=== PATIENT | male | born 1960 | race Caucasian/White ===

== ENCOUNTER → 2017-02-16 | Outpatient (CLI) | payer BC, OTHER ==
[~2017-02-16] MED LIST: /ARTH50TA PO; ACET125T2 PO; AMOX875T2 PO; ANTI25TA PO; ARTHTAB4 PO; ASPI325T PO; ASPI81CH PO; ATEN25TA PO; AVEL1TAB PO; BACITAB3 PO; BYDU1INJ SC; CARV3.12 PO; D 1010004 PO; DICL-235 PO; FLON0.05; GLYB5TAB5 PO; INSULANT SC; INSUR SC; INVO300T PO; JARD1TAB3 PO; LANTINJ4 SC; LIPI1TAB2 PO; LISI30TA4 PO; MAGN64TASA PO; MAGN70CA PO; META800T82 PO; METF1000 PO; METF500T PO; METO5TAB2 PO; NORT50CA PO; ONDA8TAB8 PO; PRED10TA PO; PRIN10TA PO; REGL5TAB2 PO; TESS100C PO; TOPA25TA10 PO; TYLE325T5 PO; VALI2TAB PO; VITA1CAP7 PO; ZEST1TAB4 PO; ZOCO20TA PO; [UNRECOGNIZED DRUG - CODE] PO
--- NOTE | 2017-02-16 12:32 | REP ---
RIGHT FOOT, FOUR VIEWS: HISTORY: Heel pain. There is no acute fracture or dislocation. The joint spaces are normal in appearance. Osteophytes are present on the inferior and posterior calcaneus. IMPRESSION: There is no acute fracture or dislocation. Signed by Darek Fagan MD 02/16/2017 12:33 P
== END ==
LOC: M WUC 10:55
PROVIDERS: ATTEND Physician Assistant
DX: M25.579 Pain in unspecified ankle and joints of unspecified foot (principal)

== ENCOUNTER → 2017-05-16 | Outpatient (CLI) | payer BC, OTHER ==
[~2017-05-16] MED LIST changes: -AVEL1TAB PO; +AVEL1TAB3 PO; +BACITAB PO; -BACITAB3 PO; +METF10004 PO; -METF500T PO; +METF500T13 PO; +TOPA1TAB PO; -TOPA25TA10 PO
--- NOTE | 2017-05-16 09:45 | REP ---
CHEST X-RAY: Two views. HISTORY: Cough. COMPARISON STUDY: August 21, 2015. FINDINGS: The lungs are well inflated and clear. Pleural angles are sharp. Cardiomediastinal silhouette and bony thorax are unremarkable. IMPRESSION: No active disease. Signed by Dante Yepez MD 05/16/2017 03:50 P
[2017-05-16 13:48] LABS: BASO # 0.1 K/mm3 (0.0-0.2); BASO % 0.8 % (0.0-1.0); EOS # 0.3 K/mm3 (0.0-0.50); EOS % 2.6 % (0.0-3.0); LARGE UNSTAINED CELL # 0.2 K/mm3 (0.0-0.4); LARGE UNSTAINED CELL % 1.4 % (0.0-4.0); LYMPH # 1.8 K/mm3 (1.5-4.5); MEAN CORPUSCULAR HEMOGLOBIN 32.6 pg (27.0-33.0); MEAN CORPUSCULAR HGB CONC 33.8 g/dl (32.0-36.5); MEAN CORPUSCULAR VOLUME 96.6 fl (80.0-96.0); MONO # 0.6 K/mm3 (0.0-0.8); MONO % 4.7 % (0.0-5.0); NEUTROPHILS # 9.2 K/mm3 (1.8-7.7); NEUTROPHILS % 75.6 % (36.0-66.0); PLATELET COUNT, AUTOMATED 235 k/mm3 (150-450); RED CELL DISTRIBUTION WIDTH 13.2 % (11.5-14.5); WHITE BLOOD COUNT 12.3 K/mm3 (4.0-10.0)
[2017-05-16 14:02] LABS: ANION GAP 11 MEQ/L (8-16); BLOOD UREA NITROGEN 26 MG/DL (7-18); CALCIUM LEVEL 9.7 MG/DL (8.5-10.1); CARBON DIOXIDE LEVEL 25 MEQ/L (21-32); CHLORIDE LEVEL 101 MEQ/L (98-107); CREATININE FOR GFR 0.95 MG/DL (0.70-1.30); GLOMERULAR FILTRATION RATE > 60.0 (>56); GLUCOSE, FASTING 228 MG/DL (70-105); POTASSIUM SERUM 4.6 MEQ/L (3.5-5.1); SODIUM LEVEL 137 MEQ/L (136-145)
== END ==
LOC: M WUC 09:08
PROVIDERS: ATTEND Physician Assistant
DX: R05 Cough (principal)

== ENCOUNTER → 2017-06-09 | Outpatient (CLI) | payer OTHER, BC ==
[2017-06-09 17:22] LABS: BASO # 0.1 10^3/uL (0.0-0.2); BASO % 0.6 % (0.0-1.0); EOS # 0.2 10^3/uL (0.0-0.50); EOS % 1.5 % (0.0-3.0); IMMATURE GRANULOCYTE % 0.6 % (0-0); LYMPH # 2.4 10^3/uL (1.5-4.5); LYMPH % 22.6 % (24.0-44.0); MEAN CORPUSCULAR HEMOGLOBIN 31.6 pg (27.0-33.0); MEAN CORPUSCULAR HGB CONC 32.9 g/dl (32.0-36.5); MEAN CORPUSCULAR VOLUME 96.1 fl (80.0-96.0); MONO # 0.6 10^3/uL (0.0-0.8); NEUTROPHILS # 7.3 10^3/uL (1.8-7.7); NEUTROPHILS % 68.7 % (36.0-66.0); PLATELET COUNT, AUTOMATED 224 10^3/uL (150-450); RED CELL DISTRIBUTION WIDTH 13.2 % (11.5-14.5); WHITE BLOOD COUNT 10.5 10^3/uL (4.0-10.0)
[2017-06-09 17:30] LABS: ADD MORPHOLOGY? NO
[2017-06-09 17:36] LABS: ALBUMIN 4.1 GM/DL (3.2-5.2); ALBUMIN/GLOBULIN RATIO 1.28 (1.00-1.93); ALKALINE PHOSPHATASE 59 U/L (45-117); ALT/SGPT 25 U/L (12-78); ANION GAP 9 MEQ/L (8-16); AST/SGOT 19 U/L (15-37); BILIRUBIN,TOTAL 0.4 MG/DL (0.2-1.0); BLOOD UREA NITROGEN 22 MG/DL (7-18); CALCIUM LEVEL 9.5 MG/DL (8.5-10.1); CARBON DIOXIDE LEVEL 27 MEQ/L (21-32); CHLORIDE LEVEL 101 MEQ/L (98-107); CREATININE FOR GFR 0.85 MG/DL (0.70-1.30); GLOMERULAR FILTRATION RATE > 60.0 (>56); GLUCOSE, FASTING 102 MG/DL (70-105); POTASSIUM SERUM 4.8 MEQ/L (3.5-5.1); SODIUM LEVEL 137 MEQ/L (136-145); TOTAL PROTEIN 7.3 GM/DL (6.4-8.2)
== END ==
LOC: M WUC 12:19
PROVIDERS: ATTEND Physician Assistant
DX: R25.2 Cramp and spasm (principal)

== ENCOUNTER 2017-08-17 16:51 | Emergency (ER) | payer BC, OTHER ==
[~2017-08-17] VITALS: Ht 180.3 cm; Wt 100.0 kg
[2017-08-17 16:59] VITALS: BP 149/79
[2017-08-17] MEDS ORDERED: GLYB25TA PO (17:05)
== END 2017-08-17 18:02 | disposition home or self-care (01) ==
LOC: M ED 16:51
DX: S01.01XA Laceration without foreign body of scalp, initial encounter (principal); W25.XXXA Contact with sharp glass, initial encounter; Y92.89 Other specified places as the place of occurrence of the external cause; Y93.89 Activity, other specified; Y99.0 Civilian activity done for income or pay; E11.9 Type 2 diabetes mellitus without complications; I10 Essential (primary) hypertension; R51 Headache; M54.9 Dorsalgia, unspecified; Z79.899 Other long term (current) drug therapy; Z79.82 Long term (current) use of aspirin; Z79.4 Long term (current) use of insulin; Z88.8 Allergy status to other drugs, medicaments and biological substances

== ENCOUNTER → 2017-09-09 | Outpatient (CLI) | payer OTHER | LOC: M WUC 14:51 | DX: E11.21 Type 2 diabetes mellitus with diabetic nephropathy (principal); N18.3 Chronic kidney disease, stage 3 (moderate) ==

== ENCOUNTER 2017-12-16 20:25 | Emergency (ER) | payer BC, OTHER ==
[2017-12-16 21:17] LABS: BEDSIDE GLUCOSE 190 MG/DL (70-105)
[2017-12-16 21:22] LABS: BASO # 0.1 10^3/uL (0.0-0.2); BASO % 0.3 % (0.0-1.0); EOS % 0.2 % (0.0-3.0); HEMATOCRIT 45.7 % (42.0-52.0); HEMOGLOBIN 15.5 g/dl (13.5-17.5); LYMPH # 4.5 10^3/uL (1.5-4.5); LYMPH % 27.3 % (24.0-44.0); MEAN CORPUSCULAR HEMOGLOBIN 31.3 pg (27.0-33.0); MEAN CORPUSCULAR HGB CONC 33.9 g/dl (32.0-36.5); MEAN CORPUSCULAR VOLUME 92.3 fl (80.0-96.0); MONO # 0.8 10^3/uL (0.0-0.8); MONO % 4.9 % (0.0-5.0); NEUTROPHILS # 10.9 10^3/uL (1.8-7.7); NEUTROPHILS % 66.3 % (36.0-66.0); PLATELET COUNT, AUTOMATED 267 10^3/uL (150-450); RED BLOOD COUNT 4.95 10^6/uL (4.30-6.10); RED CELL DISTRIBUTION WIDTH 13.1 % (11.5-14.5); WHITE BLOOD COUNT 16.4 10^3/uL (4.0-10.0)
[2017-12-16] MEDS: NS 1,000 ML IV (21:30)
[2017-12-16 21:32] LABS: OSMOLALITY SERUM 308 MOSM/KG (275-295); VENOUS BASE EXCESS 0.9 (-2.0-2.0); VENOUS HCO3 25.1 MEQ/L (23.0-27.0); VENOUS O2 SATURATION 96.9 % (60.0-80.0); VENOUS PARTIAL PRESSURE CO2 38.8 mmHg (38.0-50.0); VENOUS PARTIAL PRESSURE O2 103.7 mmHg (30.0-50.0); VENOUS PH 7.429 UNITS (7.330-7.430); VENOUS STANDARD HCO3 25.3 MEQ/L; VENOUS TOTAL CO2 26.3 MEQ/L (24.0-28.0)
[2017-12-16 21:41] LABS: ANION GAP 12 MEQ/L (8-16); BLOOD UREA NITROGEN 35 MG/DL (7-18); CALCIUM LEVEL 9.4 MG/DL (8.5-10.1); CARBON DIOXIDE LEVEL 26 MEQ/L (21-32); CHLORIDE LEVEL 102 MEQ/L (98-107); CREATININE FOR GFR 1.15 MG/DL (0.70-1.30); GLOMERULAR FILTRATION RATE > 60.0 (>56); GLUCOSE, FASTING 186 MG/DL (70-100); POTASSIUM SERUM 3.6 MEQ/L (3.5-5.1); SODIUM LEVEL 140 MEQ/L (136-145)
== END 2017-12-16 22:56 | disposition home or self-care (01) ==
LOC: M ED 20:25
DX: J20.9 Acute bronchitis, unspecified (principal); E11.65 Type 2 diabetes mellitus with hyperglycemia; I10 Essential (primary) hypertension; I25.10 Atherosclerotic heart disease of native coronary artery without angina pectoris; Z79.899 Other long term (current) drug therapy; Z79.82 Long term (current) use of aspirin; Z79.84 Long term (current) use of oral hypoglycemic drugs; Z88.8 Allergy status to other drugs, medicaments and biological substances
CPT/HCPCS: 83930

== ENCOUNTER → 2017-12-16 | Outpatient (CLI) | payer BC, OTHER ==
[2017-12-16 17:55] LABS: ALBUMIN 3.6 GM/DL (3.2-5.2); ALBUMIN/GLOBULIN RATIO 1.09 (1.00-1.93); ALKALINE PHOSPHATASE 88 U/L (45-117); ALT/SGPT 23 U/L (12-78); ANION GAP 12 MEQ/L (8-16); AST/SGOT 21 U/L (7-37); BILIRUBIN,TOTAL 0.4 MG/DL (0.2-1.0); BLOOD UREA NITROGEN 27 MG/DL (7-18); CALCIUM LEVEL 8.9 MG/DL (8.5-10.1); CARBON DIOXIDE LEVEL 25 MEQ/L (21-32); CHLORIDE LEVEL 97 MEQ/L (98-107); CREATININE FOR GFR 1.13 MG/DL (0.70-1.30); GLOMERULAR FILTRATION RATE > 60.0 (>56); SODIUM LEVEL 134 MEQ/L (136-145); TOTAL PROTEIN 6.9 GM/DL (6.4-8.2)
[2017-12-16 18:03] LABS: GLUCOSE, FASTING 458 MG/DL (70-100)
[2017-12-16 18:04] LABS: POTASSIUM SERUM 5.2 MEQ/L (3.5-5.1)
[2017-12-16 18:30] LABS: BASO % 0.3 % (0.0-1.0); EOS % 0.1 % (0.0-3.0); HEMATOCRIT 46.5 % (42.0-52.0); HEMOGLOBIN 15.3 g/dl (13.5-17.5); IMMATURE GRANULOCYTE % 1.1 % (0-3.0); LYMPH # 1.4 10^3/uL (1.5-4.5); LYMPH % 12.2 % (24.0-44.0); MEAN CORPUSCULAR HEMOGLOBIN 30.8 pg (27.0-33.0); MEAN CORPUSCULAR HGB CONC 32.9 g/dl (32.0-36.5); MEAN CORPUSCULAR VOLUME 93.8 fl (80.0-96.0); MONO # 0.2 10^3/uL (0.0-0.8); MONO % 1.9 % (0.0-5.0); NEUTROPHILS % 84.4 % (36.0-66.0); PLATELET COUNT, AUTOMATED 250 10^3/uL (150-450); RED BLOOD COUNT 4.96 10^6/uL (4.30-6.10); RED CELL DISTRIBUTION WIDTH 13.2 % (11.5-14.5); WHITE BLOOD COUNT 11.9 10^3/uL (4.0-10.0)
== END ==
LOC: M WUC 12:19
DX: J06.9 Acute upper respiratory infection, unspecified (principal)
CPT/HCPCS: 80053

== ENCOUNTER → 2018-01-15 | Outpatient (CLI) | payer BC, OTHER ==
[2018-01-15 17:49] LABS: BASO # 0.1 10^3/uL (0.0-0.2); BASO % 0.7 % (0.0-1.0); EOS # 0.2 10^3/uL (0.0-0.50); EOS % 1.7 % (0.0-3.0); HEMATOCRIT 43.7 % (42.0-52.0); HEMOGLOBIN 14.8 g/dl (13.5-17.5); IMMATURE GRANULOCYTE % 0.7 % (0-3.0); LYMPH # 2.5 10^3/uL (1.5-4.5); LYMPH % 21.5 % (24.0-44.0); MEAN CORPUSCULAR HEMOGLOBIN 32.2 pg (27.0-33.0); MEAN CORPUSCULAR HGB CONC 33.9 g/dl (32.0-36.5); MONO # 0.7 10^3/uL (0.0-0.8); MONO % 6.2 % (0.0-5.0); NEUTROPHILS # 8.1 10^3/uL (1.8-7.7); NEUTROPHILS % 69.2 % (36.0-66.0); PLATELET COUNT, AUTOMATED 273 10^3/uL (150-450); RED CELL DISTRIBUTION WIDTH 13.7 % (11.5-14.5); WHITE BLOOD COUNT 11.8 10^3/uL (4.0-10.0)
[2018-01-15 18:24] LABS: ALBUMIN 3.7 GM/DL (3.2-5.2); ALKALINE PHOSPHATASE 87 U/L (45-117); ANION GAP 10 MEQ/L (8-16); BILIRUBIN,TOTAL 0.5 MG/DL (0.2-1.0); CALCIUM LEVEL 8.1 MG/DL (8.5-10.1); CARBON DIOXIDE LEVEL 24 MEQ/L (21-32); CHLORIDE LEVEL 101 MEQ/L (98-107); CPK CREATINE PHOSPHOKINASE 85 U/L (39-308); CREATININE FOR GFR 1.88 MG/DL (0.70-1.30); GLOMERULAR FILTRATION RATE 39.6 (>56); GLUCOSE, FASTING 371 MG/DL (70-100); POTASSIUM SERUM 4.7 MEQ/L (3.5-5.1); SODIUM LEVEL 135 MEQ/L (136-145)
[2018-01-15 19:05] LABS: ALT/SGPT 31 U/L (12-78); AST/SGOT 31 U/L (7-37); BLOOD UREA NITROGEN 23 MG/DL (7-18)
[2018-01-15 19:06] LABS: ALBUMIN/GLOBULIN RATIO 1.16 (1.00-1.93); TOTAL PROTEIN 6.9 GM/DL (6.4-8.2)
== END ==
LOC: M WUC 15:44
DX: R25.2 Cramp and spasm (principal)
CPT/HCPCS: 82550

== ENCOUNTER → 2018-01-17 | Outpatient (CLI) | payer BC, OTHER ==
[2018-01-17 20:23] LABS: ALBUMIN 3.7 GM/DL (3.2-5.2); ALBUMIN/GLOBULIN RATIO 1.16 (1.00-1.93); ALKALINE PHOSPHATASE 84 U/L (45-117); ALT/SGPT 26 U/L (12-78); ANION GAP 10 MEQ/L (8-16); AST/SGOT 19 U/L (7-37); BILIRUBIN,TOTAL 0.2 MG/DL (0.2-1.0); BLOOD UREA NITROGEN 28 MG/DL (7-18); CALCIUM LEVEL 9.3 MG/DL (8.5-10.1); CARBON DIOXIDE LEVEL 24 MEQ/L (21-32); CHLORIDE LEVEL 106 MEQ/L (98-107); CREATININE FOR GFR 1.28 MG/DL (0.70-1.30); GLOMERULAR FILTRATION RATE > 60.0 (>56); GLUCOSE, FASTING 262 MG/DL (70-100); POTASSIUM SERUM 4.7 MEQ/L (3.5-5.1); SODIUM LEVEL 140 MEQ/L (136-145); TOTAL PROTEIN 6.9 GM/DL (6.4-8.2)
== END ==
LOC: M WUC 17:00
DX: N28.9 Disorder of kidney and ureter, unspecified (principal)
CPT/HCPCS: 80053

== ENCOUNTER → 2018-03-30 | Outpatient (CLI) | payer OTHER, BC ==
[2018-03-30 12:22] LABS: BASO # 0.1 10^3/uL (0.0-0.2); BASO % 0.8 % (0.0-1.0); EOS # 0.3 10^3/uL (0.0-0.50); EOS % 2.5 % (0.0-3.0); HEMATOCRIT 45.3 % (42.0-52.0); HEMOGLOBIN 14.8 g/dl (13.5-17.5); IMMATURE GRANULOCYTE % 0.4 % (0-3.0); LYMPH # 2.4 10^3/uL (1.5-4.5); LYMPH % 24.8 % (24.0-44.0); MEAN CORPUSCULAR HEMOGLOBIN 31.7 pg (27.0-33.0); MEAN CORPUSCULAR HGB CONC 32.7 g/dl (32.0-36.5); MONO # 0.6 10^3/uL (0.0-0.8); MONO % 6.5 % (0.0-5.0); NEUTROPHILS # 6.4 10^3/uL (1.8-7.7); PLATELET COUNT, AUTOMATED 253 10^3/uL (150-450); RED BLOOD COUNT 4.67 10^6/uL (4.30-6.10); RED CELL DISTRIBUTION WIDTH 13.2 % (11.5-14.5); WHITE BLOOD COUNT 9.8 10^3/uL (4.0-10.0)
[2018-03-30 12:46] LABS: ALBUMIN 4.1 GM/DL (3.2-5.2); ALBUMIN/GLOBULIN RATIO 1.24 (1.00-1.93); ALKALINE PHOSPHATASE 75 U/L (45-117); ALT/SGPT 21 U/L (12-78); ANION GAP 9 MEQ/L (8-16); AST/SGOT 19 U/L (7-37); BILIRUBIN,TOTAL 0.3 MG/DL (0.2-1.0); BLOOD UREA NITROGEN 25 MG/DL (7-18); CALCIUM LEVEL 9.2 MG/DL (8.5-10.1); CARBON DIOXIDE LEVEL 27 MEQ/L (21-32); CHLORIDE LEVEL 103 MEQ/L (98-107); CREATININE FOR GFR 0.97 MG/DL (0.70-1.30); GLOMERULAR FILTRATION RATE > 60.0 (>56); GLUCOSE, FASTING 114 MG/DL (70-100); POTASSIUM SERUM 4.8 MEQ/L (3.5-5.1); SODIUM LEVEL 139 MEQ/L (136-145); TOTAL PROTEIN 7.4 GM/DL (6.4-8.2)
[2018-03-30 13:14] LABS: FOLATE 21.5 NG/ML; VITAMIN B12 LEVEL 307 PG/ML
[2018-04-04 00:08] LABS: VITAMIN D 1,25 DIHYDROXY 30.7 pg/mL (19.9-79.3)
== END ==
LOC: M WUC 10:27
DX: I10 Essential (primary) hypertension (principal); E78.00 Pure hypercholesterolemia, unspecified; Z79.899 Other long term (current) drug therapy; R25.2 Cramp and spasm
CPT/HCPCS: 82746

== ENCOUNTER 2018-04-28 15:49 | Inpatient (IN) | payer BC, OTHER ==
[2018-04-28] MEDS: MECLIZINE 25 MG TABLET PO (17:15)
[2018-04-28 17:31] LABS: BASO # 0.1 10^3/uL (0.0-0.2); BASO % 0.4 % (0.0-1.0); EOS % 0.2 % (0.0-3.0); HEMATOCRIT 44.2 % (42.0-52.0); HEMOGLOBIN 15.6 g/dl (13.5-17.5); IMMATURE GRANULOCYTE % 0.5 % (0-3.0); LYMPH # 1.9 10^3/uL (1.5-4.5); LYMPH % 13.8 % (24.0-44.0); MEAN CORPUSCULAR HEMOGLOBIN 32.2 pg (27.0-33.0); MEAN CORPUSCULAR HGB CONC 35.3 g/dl (32.0-36.5); MEAN CORPUSCULAR VOLUME 91.3 fl (80.0-96.0); MONO # 0.6 10^3/uL (0.0-0.8); MONO % 4.6 % (0.0-5.0); NEUTROPHILS # 10.9 10^3/uL (1.8-7.7); NEUTROPHILS % 80.5 % (36.0-66.0); PLATELET COUNT, AUTOMATED 280 10^3/uL (150-450); RED BLOOD COUNT 4.84 10^6/uL (4.30-6.10); RED CELL DISTRIBUTION WIDTH 12.5 % (11.5-14.5); WHITE BLOOD COUNT 13.6 10^3/uL (4.0-10.0)
[2018-04-28] MEDS: ONDANSETRON 4MG/2ML VIAL (J2405) IV (17:35)
[2018-04-28] MEDS: NS 1,000 ML IV ×2 (17:35→20:40)
[2018-04-28 17:43] LABS: ALBUMIN 3.6 GM/DL (3.2-5.2); ALBUMIN/GLOBULIN RATIO 0.92 (1.00-1.93); ALKALINE PHOSPHATASE 65 U/L (45-117); ALT/SGPT 14 U/L (12-78); ANION GAP 11 MEQ/L (8-16); AST/SGOT 10 U/L (7-37); BILIRUBIN,DIRECT < 0.1 MG/DL (0.0-0.2); BILIRUBIN,TOTAL 0.4 MG/DL (0.2-1.0); BLOOD UREA NITROGEN 30 MG/DL (7-18); C REACTIVE PROTEIN QUANTITATIV 0.72 MG/DL (0.00-0.30); CALCIUM LEVEL 9.5 MG/DL (8.5-10.1); CARBON DIOXIDE LEVEL 25 MEQ/L (21-32); CHLORIDE LEVEL 93 MEQ/L (98-107); CPK CREATINE PHOSPHOKINASE 24 U/L (39-308); CREATININE FOR GFR 1.24 MG/DL (0.70-1.30); FREE THYROXINE INDEX 3.1 % (1.4-3.8); GLOMERULAR FILTRATION RATE > 60.0 (>56); POTASSIUM SERUM 4.4 MEQ/L (3.5-5.1); SODIUM LEVEL 129 MEQ/L (136-145); T UPTAKE 37 % (33-40); THYROXINE (T4) 8.4 UG/DL (4.5-12.0); TOTAL PROTEIN 7.5 GM/DL (6.4-8.2); TROPONIN I < 0.02 NG/ML (< 0.10)
[2018-04-28 17:50] LABS: INR 0.98; PARTIAL THROMBOPLASTIN TIME 29.8 SECONDS (25.4-37.6); PROTHROMBIN TIME 13.1 SECONDS (12.1-14.4)
[2018-04-28 17:51] LABS: GLUCOSE, FASTING 589 MG/DL (70-100)
[2018-04-28 17:52] LABS: CK-MB VALUE MASS < 1.0 NG/ML (<3.6); MB/CK RELATIVE INDEX 4.16 (< OR =4)
[2018-04-28 17:53] LABS: ERYTHROCYTE SEDIMENTATION RATE 25 mm/hr (0-20)
[2018-04-28] MEDS: DIVALPROEX 500MG *ER* TAB PO (17:53)
[2018-04-28] MEDS: diazePAM 2 MG TAB PO (17:54)
[2018-04-28] MEDS: HumaLOG INSULIN (NovoLOG) PER UNIT SC ×2 (18:09→21:00)
[2018-04-28 18:19] LABS: ESTIMATED AVERAGE GLUCOSE 263 MG/DL (60-110); HEMOGLOBIN A1c 10.8 %
[2018-04-28 18:20] LABS: AMPHETAMINES LEVEL URINE NEGATIVE (NEGATIVE); BARBITURATES URINE NEGATIVE (NEGATIVE); BENZODIAZEPINES URINE NEGATIVE (NEGATIVE); CANNABINOIDS URINE NEGATIVE (NEGATIVE); COCAINE METABOLITE URINE NEGATIVE (NEGATIVE); METHADONE URINE NEGATIVE (NEGATIVE); OPIATES URINE NEGATIVE (NEGATIVE); PHENCYCLIDINE URINE NEGATIVE (NEGATIVE)
[2018-04-28] MEDS ORDERED: GLUCAGON FOR INJ 1 MG VIAL (J1610) SC (20:45)
[2018-04-28] MEDS ORDERED: BISACODYL 10 MG SUPP PR (20:45)
[2018-04-28] MEDS ORDERED: GLUCOSE 4 GM CHEW TABLET PO (20:45)
[2018-04-28] MEDS ORDERED: METOCLOPRAMIDE INJ 10MG/2ML VIAL (J2765) IV (20:45)
[2018-04-28] MEDS ORDERED: BISACODYL 5 MG TAB PO (20:45)
[2018-04-28] MEDS ORDERED: DEXTROSE 50% 50 ML SYRINGE IV (20:45)
[2018-04-28] MEDS ORDERED: LORazepam 2 MG/ML VIAL (J2060) IV (20:45)
[2018-04-28 21:45] LABS: BEDSIDE GLUCOSE 256 MG/DL (70-105)
[2018-04-28] MEDS: diphenhydrAMINE INJ 50MG/ML VIAL (J1200) IV (23:23)
[2018-04-29] MEDS: CARVedilol 3.125 MG TAB PO ×3 (00:11→21:46)
[2018-04-29] MEDS: NS 1,000 ML IV ×2 (05:08→15:24)
[2018-04-29] MEDS: ONDANSETRON 4MG/2ML VIAL (J2405) IV (06:03)
[2018-04-29 06:20] LABS: HEMATOCRIT 44.1 % (42.0-52.0); HEMOGLOBIN 14.9 g/dl (13.5-17.5); MEAN CORPUSCULAR HEMOGLOBIN 31.6 pg (27.0-33.0); MEAN CORPUSCULAR HGB CONC 33.8 g/dl (32.0-36.5); MEAN CORPUSCULAR VOLUME 93.6 fl (80.0-96.0); PLATELET COUNT, AUTOMATED 250 10^3/uL (150-450); RED BLOOD COUNT 4.71 10^6/uL (4.30-6.10); RED CELL DISTRIBUTION WIDTH 12.7 % (11.5-14.5); WHITE BLOOD COUNT 11.8 10^3/uL (4.0-10.0)
[2018-04-29 06:34] LABS: APPEARANCE, URINE CLEAR (CLEAR); BACTERIA, URINE AUTO NEGATIVE (NEGATIVE); BILIRUBIN, URINE AUTO NEGATIVE (NEGATIVE); BLOOD, URINE BLOOD NEGATIVE (NEGATIVE); COLOR, URINE YELLOW (YELLOW); GLUCOSE, URINE (UA) AUTO 3+ mg/dL (NEGATIVE); KETONE, URINE AUTO 1+ mg/dL (NEGATIVE); LEUKOCYTE ESTERASE, URINE AUTO NEGATIVE (NEGATIVE); NITRITE, URINE AUTO NEGATIVE (NEGATIVE); PROTEIN, URINE AUTO NEGATIVE (NEGATIVE); RBC, URINE AUTO 0 /HPF (0-3); SPECIFIC GRAVITY URINE AUTO 1.031 (1.002-1.035); SQUAMOUS EPITHELIAL CELL UR AU 0 /HPF (0-6); UROBILINOGEN, URINE AUTO 0.2 mg/dL (0.0-2.0); WBC, URINE AUTO 0 /HPF (0-3)
[2018-04-29 06:36] LABS: ANION GAP 10 MEQ/L (8-16); BLOOD UREA NITROGEN 26 MG/DL (7-18); CALCIUM LEVEL 9.1 MG/DL (8.5-10.1); CARBON DIOXIDE LEVEL 27 MEQ/L (21-32); CHLORIDE LEVEL 104 MEQ/L (98-107); CREATININE FOR GFR 0.76 MG/DL (0.70-1.30); GLOMERULAR FILTRATION RATE > 60.0 (>56); GLUCOSE, FASTING 194 MG/DL (70-100); POTASSIUM SERUM 3.5 MEQ/L (3.5-5.1); SODIUM LEVEL 141 MEQ/L (136-145)
[2018-04-29] MEDS: HumaLOG INSULIN (NovoLOG) PER UNIT SC ×4 (08:46→21:46)
[2018-04-29] MEDS: ATENOLOL 25 MG TAB PO (08:47)
[2018-04-29] MEDS: LEVEMIR (INSULIN DETEMIR) 1 UNITS/0.01ML SC (08:47)
[2018-04-29] MEDS: ENOXAPARIN 40 MG/0.4 ML SYRINGE (J1650) SC (08:47)
[2018-04-29] MEDS: ASPIRIN 325 MG TAB PO (08:47)
[2018-04-29] MEDS: MAGNESIUM OXIDE 400 MG TAB (MAG-OX) PO ×2 (08:48→21:46)
[2018-04-29] MEDS: ALLOPURINOL 100 MG TAB PO (08:48)
[2018-04-29] MEDS: LISINOPRIL *2.5 MG* TAB PO (08:48)
[2018-04-29] MEDS: SIMVASTATIN 20 MG TAB PO (08:48)
[2018-04-29] MEDS: diazePAM 2 MG TAB PO ×2 (08:48→21:46)
[2018-04-29] MEDS: NORTRIPTYLINE 25 MG CAP PO (08:48)
[2018-04-29] MEDS ORDERED: HumaLOG INSULIN (NovoLOG) PER UNIT SC (09:00)
[2018-04-29 11:38] LABS: BEDSIDE GLUCOSE 515 MG/DL (70-105)
[2018-04-29 11:41] LABS: BEDSIDE GLUCOSE 414 MG/DL (70-105)
[2018-04-29 12:39] LABS: BEDSIDE GLUCOSE CONFIRMATION 415 MG/DL (LESS THAN 200)
[2018-04-29 17:09] LABS: BEDSIDE GLUCOSE 286 MG/DL (70-105)
[2018-04-29 21:33] LABS: BEDSIDE GLUCOSE 388 MG/DL (70-105)
[2018-04-29] MEDS: DIVALPROEX 500 MG TAB PO (21:44)
[2018-04-30] MEDS: NS 1,000 ML IV ×2 (00:59→08:14)
[2018-04-30 06:27] LABS: HEMATOCRIT 40.8 % (42.0-52.0); HEMOGLOBIN 13.6 g/dl (13.5-17.5); MEAN CORPUSCULAR HEMOGLOBIN 31.6 pg (27.0-33.0); MEAN CORPUSCULAR HGB CONC 33.3 g/dl (32.0-36.5); MEAN CORPUSCULAR VOLUME 94.7 fl (80.0-96.0); PLATELET COUNT, AUTOMATED 229 10^3/uL (150-450); RED BLOOD COUNT 4.31 10^6/uL (4.30-6.10); RED CELL DISTRIBUTION WIDTH 12.7 % (11.5-14.5); WHITE BLOOD COUNT 10.2 10^3/uL (4.0-10.0)
[2018-04-30 06:54] LABS: ANION GAP 9 MEQ/L (8-16); BLOOD UREA NITROGEN 17 MG/DL (7-18); CALCIUM LEVEL 8.2 MG/DL (8.5-10.1); CARBON DIOXIDE LEVEL 27 MEQ/L (21-32); CHLORIDE LEVEL 103 MEQ/L (98-107); CREATININE FOR GFR 0.73 MG/DL (0.70-1.30); GLOMERULAR FILTRATION RATE > 60.0 (>56); GLUCOSE, FASTING 222 MG/DL (70-100); POTASSIUM SERUM 3.7 MEQ/L (3.5-5.1); SODIUM LEVEL 139 MEQ/L (136-145)
[2018-04-30] MEDS: LEVEMIR (INSULIN DETEMIR) 1 UNITS/0.01ML SC (08:12)
[2018-04-30] MEDS: HumaLOG INSULIN (NovoLOG) PER UNIT SC ×4 (08:12→21:16)
[2018-04-30] MEDS: ACETAMINOPHEN TAB 650MG DOSE (2X325MG) PO (08:12)
[2018-04-30] MEDS: LISINOPRIL *2.5 MG* TAB PO (08:13)
[2018-04-30] MEDS: ENOXAPARIN 40 MG/0.4 ML SYRINGE (J1650) SC (08:13)
[2018-04-30] MEDS: ASPIRIN 325 MG TAB PO (08:13)
[2018-04-30] MEDS: ATENOLOL 25 MG TAB PO (08:13)
[2018-04-30] MEDS: SIMVASTATIN 20 MG TAB PO (08:14)
[2018-04-30] MEDS: NORTRIPTYLINE 25 MG CAP PO (08:14)
[2018-04-30] MEDS: MAGNESIUM OXIDE 400 MG TAB (MAG-OX) PO ×2 (08:14→21:15)
[2018-04-30] MEDS: ALLOPURINOL 100 MG TAB PO (08:14)
[2018-04-30] MEDS: CARVedilol 3.125 MG TAB PO ×2 (08:14→21:14)
[2018-04-30] MEDS: diazePAM 2 MG TAB PO ×2 (08:14→21:15)
[2018-04-30] MEDS: MECLIZINE 12.5 MG TAB PO (08:22)
[2018-04-30 11:53] LABS: BEDSIDE GLUCOSE 209 MG/DL (70-105)
[2018-04-30 16:46] LABS: BEDSIDE GLUCOSE 271 MG/DL (70-105)
[2018-04-30 21:06] LABS: BEDSIDE GLUCOSE 404 MG/DL (70-105)
[2018-04-30] MEDS: DIVALPROEX 500 MG TAB PO (21:15)
[2018-05-01 05:57] LABS: HEMATOCRIT 41.4 % (42.0-52.0); HEMOGLOBIN 13.7 g/dl (13.5-17.5); MEAN CORPUSCULAR HEMOGLOBIN 31.2 pg (27.0-33.0); MEAN CORPUSCULAR HGB CONC 33.1 g/dl (32.0-36.5); MEAN CORPUSCULAR VOLUME 94.3 fl (80.0-96.0); PLATELET COUNT, AUTOMATED 225 10^3/uL (150-450); RED BLOOD COUNT 4.39 10^6/uL (4.30-6.10); RED CELL DISTRIBUTION WIDTH 12.4 % (11.5-14.5); WHITE BLOOD COUNT 10.1 10^3/uL (4.0-10.0)
[2018-05-01 06:18] LABS: ANION GAP 10 MEQ/L (8-16); BLOOD UREA NITROGEN 16 MG/DL (7-18); CALCIUM LEVEL 8.6 MG/DL (8.5-10.1); CARBON DIOXIDE LEVEL 26 MEQ/L (21-32); CHLORIDE LEVEL 100 MEQ/L (98-107); CREATININE FOR GFR 0.78 MG/DL (0.70-1.30); GLOMERULAR FILTRATION RATE > 60.0 (>56); GLUCOSE, FASTING 288 MG/DL (70-100); POTASSIUM SERUM 4.1 MEQ/L (3.5-5.1); SODIUM LEVEL 136 MEQ/L (136-145)
[2018-05-01] MEDS: ENOXAPARIN 40 MG/0.4 ML SYRINGE (J1650) SC (08:20)
[2018-05-01] MEDS: ASPIRIN 325 MG TAB PO (08:21)
[2018-05-01] MEDS: MECLIZINE 12.5 MG TAB PO ×2 (08:21→16:09)
[2018-05-01] MEDS: SIMVASTATIN 20 MG TAB PO (08:22)
[2018-05-01] MEDS: MAGNESIUM OXIDE 400 MG TAB (MAG-OX) PO ×2 (08:22→21:32)
[2018-05-01] MEDS: diazePAM 2 MG TAB PO ×2 (08:22→21:33)
[2018-05-01] MEDS: ALLOPURINOL 100 MG TAB PO (08:23)
[2018-05-01] MEDS: LISINOPRIL *2.5 MG* TAB PO (08:23)
[2018-05-01] MEDS: CARVedilol 3.125 MG TAB PO ×2 (08:24→21:33)
[2018-05-01] MEDS: ATENOLOL 25 MG TAB PO (08:24)
[2018-05-01] MEDS: NORTRIPTYLINE 25 MG CAP PO ×2 (08:24→21:32)
[2018-05-01] MEDS: HumaLOG INSULIN (NovoLOG) PER UNIT SC ×4 (08:25→21:35)
[2018-05-01] MEDS: LEVEMIR (INSULIN DETEMIR) 1 UNITS/0.01ML SC (08:26)
[2018-05-01 11:45] LABS: BEDSIDE GLUCOSE 311 MG/DL (70-105)
[2018-05-01] MEDS: ACETAMINOPHEN TAB 650MG DOSE (2X325MG) PO ×2 (16:09→21:34)
[2018-05-01 16:47] LABS: BEDSIDE GLUCOSE 343 MG/DL (70-105)
[2018-05-01 20:48] LABS: BEDSIDE GLUCOSE 383 MG/DL (70-105)
[2018-05-01] MEDS: DIVALPROEX 500 MG TAB PO (21:33)
[2018-05-02] MEDS: ACETAMINOPHEN TAB 650MG DOSE (2X325MG) PO ×3 (04:30→20:55)
[2018-05-02 06:02] LABS: HEMATOCRIT 42.6 % (42.0-52.0); HEMOGLOBIN 14.5 g/dl (13.5-17.5); MEAN CORPUSCULAR HEMOGLOBIN 31.8 pg (27.0-33.0); MEAN CORPUSCULAR VOLUME 93.4 fl (80.0-96.0); PLATELET COUNT, AUTOMATED 233 10^3/uL (150-450); RED BLOOD COUNT 4.56 10^6/uL (4.30-6.10); RED CELL DISTRIBUTION WIDTH 12.2 % (11.5-14.5); WHITE BLOOD COUNT 9.7 10^3/uL (4.0-10.0)
[2018-05-02 06:16] LABS: ANION GAP 7 MEQ/L (8-16); BLOOD UREA NITROGEN 19 MG/DL (7-18); CALCIUM LEVEL 8.4 MG/DL (8.5-10.1); CARBON DIOXIDE LEVEL 31 MEQ/L (21-32); CHLORIDE LEVEL 96 MEQ/L (98-107); CREATININE FOR GFR 0.83 MG/DL (0.70-1.30); GLOMERULAR FILTRATION RATE > 60.0 (>56); GLUCOSE, FASTING 335 MG/DL (70-100); POTASSIUM SERUM 4.2 MEQ/L (3.5-5.1); SODIUM LEVEL 134 MEQ/L (136-145)
[2018-05-02] MEDS: diazePAM 2 MG TAB PO ×2 (09:03→20:56)
[2018-05-02] MEDS: ONDANSETRON 4MG/2ML VIAL (J2405) IV (09:03)
[2018-05-02] MEDS: ASPIRIN 325 MG TAB PO (09:03)
[2018-05-02] MEDS: ALLOPURINOL 100 MG TAB PO (09:03)
[2018-05-02] MEDS: SIMVASTATIN 20 MG TAB PO (09:03)
[2018-05-02] MEDS: ENOXAPARIN 40 MG/0.4 ML SYRINGE (J1650) SC (09:05)
[2018-05-02] MEDS: LISINOPRIL *2.5 MG* TAB PO (09:05)
[2018-05-02] MEDS: CARVedilol 3.125 MG TAB PO ×2 (09:06→20:56)
[2018-05-02] MEDS: MAGNESIUM OXIDE 400 MG TAB (MAG-OX) PO ×2 (09:06→20:56)
[2018-05-02] MEDS: ATENOLOL 25 MG TAB PO (09:07)
[2018-05-02] MEDS: LEVEMIR (INSULIN DETEMIR) 1 UNITS/0.01ML SC (09:07)
[2018-05-02] MEDS: HumaLOG INSULIN (NovoLOG) PER UNIT SC ×4 (09:08→20:57)
[2018-05-02 11:42] LABS: BEDSIDE GLUCOSE 326 MG/DL (70-105)
[2018-05-02 20:14] LABS: BEDSIDE GLUCOSE 492 MG/DL (70-105)
[2018-05-02] MEDS: MECLIZINE 25 MG TABLET PO (20:55)
[2018-05-02] MEDS: DIVALPROEX 500MG *ER* TAB PO (20:55)
[2018-05-02] MEDS: NORTRIPTYLINE 25 MG CAP PO (20:55)
[2018-05-03 00:33] LABS: BEDSIDE GLUCOSE 363 MG/DL (70-105)
[2018-05-03 06:31] LABS: HEMATOCRIT 43.3 % (42.0-52.0); HEMOGLOBIN 14.9 g/dl (13.5-17.5); MEAN CORPUSCULAR HEMOGLOBIN 32.4 pg (27.0-33.0); MEAN CORPUSCULAR HGB CONC 34.4 g/dl (32.0-36.5); MEAN CORPUSCULAR VOLUME 94.1 fl (80.0-96.0); PLATELET COUNT, AUTOMATED 252 10^3/uL (150-450); RED CELL DISTRIBUTION WIDTH 12.2 % (11.5-14.5); WHITE BLOOD COUNT 9.8 10^3/uL (4.0-10.0)
[2018-05-03 06:42] LABS: ANION GAP 12 MEQ/L (8-16); BLOOD UREA NITROGEN 21 MG/DL (7-18); CALCIUM LEVEL 8.4 MG/DL (8.5-10.1); CARBON DIOXIDE LEVEL 26 MEQ/L (21-32); CHLORIDE LEVEL 96 MEQ/L (98-107); CREATININE FOR GFR 0.79 MG/DL (0.70-1.30); GLOMERULAR FILTRATION RATE > 60.0 (>56); GLUCOSE, FASTING 342 MG/DL (70-100); POTASSIUM SERUM 4.3 MEQ/L (3.5-5.1); SODIUM LEVEL 134 MEQ/L (136-145)
[2018-05-03] MEDS: ACETAMINOPHEN TAB 650MG DOSE (2X325MG) PO ×3 (07:59→19:49)
[2018-05-03] MEDS: ENOXAPARIN 40 MG/0.4 ML SYRINGE (J1650) SC (08:00)
[2018-05-03] MEDS: MECLIZINE 25 MG TABLET PO ×2 (08:00→21:26)
[2018-05-03] MEDS: ALLOPURINOL 100 MG TAB PO (08:00)
[2018-05-03] MEDS: ATENOLOL 25 MG TAB PO (08:02)
[2018-05-03] MEDS: diazePAM 2 MG TAB PO ×2 (08:02→21:27)
[2018-05-03] MEDS: LISINOPRIL *2.5 MG* TAB PO (08:02)
[2018-05-03] MEDS: SIMVASTATIN 20 MG TAB PO (08:03)
[2018-05-03] MEDS: ASPIRIN 325 MG TAB PO (08:03)
[2018-05-03] MEDS: DIVALPROEX 500MG *ER* TAB PO ×2 (08:03→21:26)
[2018-05-03] MEDS: MAGNESIUM OXIDE 400 MG TAB (MAG-OX) PO ×2 (08:04→21:26)
[2018-05-03] MEDS: CARVedilol 3.125 MG TAB PO ×2 (08:04→21:27)
[2018-05-03] MEDS: HumaLOG INSULIN (NovoLOG) PER UNIT SC ×4 (08:05→21:27)
[2018-05-03] MEDS: LEVEMIR (INSULIN DETEMIR) 1 UNITS/0.01ML SC (08:06)
[2018-05-03 16:32] LABS: BEDSIDE GLUCOSE 371 MG/DL (70-105)
[2018-05-03 16:32] LABS: BEDSIDE GLUCOSE 345 MG/DL (70-105)
[2018-05-03 16:32] LABS: BEDSIDE GLUCOSE 350 MG/DL (70-105)
[2018-05-03] MEDS ORDERED: PROHANCE 279.3MG/ML 5ML VIAL (A9576) As Ordered (20:52)
[2018-05-03] MEDS ORDERED: PROHANCE 279.3MG/ML 15ML VIAL (A9576) As Ordered (20:53)
[2018-05-03 21:19] LABS: BEDSIDE GLUCOSE 478 MG/DL (70-105)
[2018-05-03] MEDS: AMITRIPTYLINE 25 MG TAB PO (21:26)
[2018-05-04 00:46] LABS: BEDSIDE GLUCOSE 442 MG/DL (70-105)
[2018-05-04] MEDS: HumaLOG INSULIN (NovoLOG) PER UNIT SC ×5 (00:57→21:10)
[2018-05-04] MEDS: ACETAMINOPHEN TAB 650MG DOSE (2X325MG) PO (00:57)
[2018-05-04 06:28] LABS: HEMATOCRIT 42.7 % (42.0-52.0); HEMOGLOBIN 14.4 g/dl (13.5-17.5); MEAN CORPUSCULAR HEMOGLOBIN 31.8 pg (27.0-33.0); MEAN CORPUSCULAR HGB CONC 33.7 g/dl (32.0-36.5); MEAN CORPUSCULAR VOLUME 94.3 fl (80.0-96.0); PLATELET COUNT, AUTOMATED 242 10^3/uL (150-450); RED BLOOD COUNT 4.53 10^6/uL (4.30-6.10); RED CELL DISTRIBUTION WIDTH 12.3 % (11.5-14.5); WHITE BLOOD COUNT 10.1 10^3/uL (4.0-10.0)
[2018-05-04 06:36] LABS: ANION GAP 9 MEQ/L (8-16); BLOOD UREA NITROGEN 25 MG/DL (7-18); CALCIUM LEVEL 8.6 MG/DL (8.5-10.1); CARBON DIOXIDE LEVEL 29 MEQ/L (21-32); CHLORIDE LEVEL 99 MEQ/L (98-107); GLOMERULAR FILTRATION RATE > 60.0 (>56); GLUCOSE, FASTING 324 MG/DL (70-100); POTASSIUM SERUM 3.9 MEQ/L (3.5-5.1); SODIUM LEVEL 137 MEQ/L (136-145)
[2018-05-04 06:43] LABS: MAGNESIUM LEVEL 1.8 MG/DL (1.8-2.4)
[2018-05-04] MEDS: diazePAM 2 MG TAB PO ×2 (07:52→21:11)
[2018-05-04] MEDS: ASPIRIN 325 MG TAB PO (07:52)
[2018-05-04] MEDS: LISINOPRIL *2.5 MG* TAB PO (07:52)
[2018-05-04] MEDS: LEVEMIR (INSULIN DETEMIR) 1 UNITS/0.01ML SC ×2 (07:52→21:09)
[2018-05-04] MEDS: DIVALPROEX 500MG *ER* TAB PO (07:53)
[2018-05-04] MEDS: SIMVASTATIN 20 MG TAB PO (07:53)
[2018-05-04] MEDS: CARVedilol 3.125 MG TAB PO ×2 (07:53→21:10)
[2018-05-04] MEDS: MECLIZINE 25 MG TABLET PO ×2 (07:53→21:10)
[2018-05-04] MEDS: ALLOPURINOL 100 MG TAB PO (07:53)
[2018-05-04] MEDS: MAGNESIUM OXIDE 400 MG TAB (MAG-OX) PO ×2 (07:54→21:11)
[2018-05-04] MEDS: ATENOLOL 25 MG TAB PO (07:54)
[2018-05-04] MEDS: ENOXAPARIN 40 MG/0.4 ML SYRINGE (J1650) SC (07:54)
[2018-05-04 11:51] LABS: BEDSIDE GLUCOSE 353 MG/DL (70-105)
[2018-05-04] MEDS: TOPIRAMATE (TopAMAX) 25 MG TAB PO ×2 (13:15→21:11)
[2018-05-04 16:27] LABS: BEDSIDE GLUCOSE 330 MG/DL (70-105)
[2018-05-04 20:57] LABS: BEDSIDE GLUCOSE 457 MG/DL (70-105)
[2018-05-04] MEDS ORDERED: LEVEMIR (INSULIN DETEMIR) 1 UNITS/0.01ML SC (21:00)
[2018-05-04] MEDS: AMITRIPTYLINE 25 MG TAB PO (21:10)
[2018-05-05 06:35] LABS: HEMATOCRIT 43.5 % (42.0-52.0); HEMOGLOBIN 14.9 g/dl (13.5-17.5); MEAN CORPUSCULAR HGB CONC 34.3 g/dl (32.0-36.5); MEAN CORPUSCULAR VOLUME 93.5 fl (80.0-96.0); PLATELET COUNT, AUTOMATED 239 10^3/uL (150-450); RED BLOOD COUNT 4.65 10^6/uL (4.30-6.10); RED CELL DISTRIBUTION WIDTH 12.4 % (11.5-14.5); WHITE BLOOD COUNT 11.5 10^3/uL (4.0-10.0)
[2018-05-05 06:51] LABS: ANION GAP 8 MEQ/L (8-16); BLOOD UREA NITROGEN 25 MG/DL (7-18); CALCIUM LEVEL 8.4 MG/DL (8.5-10.1); CARBON DIOXIDE LEVEL 29 MEQ/L (21-32); CHLORIDE LEVEL 96 MEQ/L (98-107); CREATININE FOR GFR 0.88 MG/DL (0.70-1.30); GLOMERULAR FILTRATION RATE > 60.0 (>56); GLUCOSE, FASTING 332 MG/DL (70-100); POTASSIUM SERUM 4.2 MEQ/L (3.5-5.1); SODIUM LEVEL 133 MEQ/L (136-145)
[2018-05-05] MEDS: HumaLOG INSULIN (NovoLOG) PER UNIT SC ×4 (07:44→20:31)
[2018-05-05] MEDS: LISINOPRIL *2.5 MG* TAB PO (07:45)
[2018-05-05] MEDS: ENOXAPARIN 40 MG/0.4 ML SYRINGE (J1650) SC (07:45)
[2018-05-05] MEDS: LEVEMIR (INSULIN DETEMIR) 1 UNITS/0.01ML SC ×2 (07:45→20:32)
[2018-05-05] MEDS: ASPIRIN 325 MG TAB PO (07:46)
[2018-05-05] MEDS: SIMVASTATIN 20 MG TAB PO (07:46)
[2018-05-05] MEDS: TOPIRAMATE (TopAMAX) 25 MG TAB PO ×2 (07:46→20:30)
[2018-05-05] MEDS: MAGNESIUM OXIDE 400 MG TAB (MAG-OX) PO ×2 (07:46→20:31)
[2018-05-05] MEDS: ATENOLOL 25 MG TAB PO (07:46)
[2018-05-05] MEDS: ALLOPURINOL 100 MG TAB PO (07:47)
[2018-05-05] MEDS: CARVedilol 3.125 MG TAB PO ×2 (07:47→20:30)
[2018-05-05] MEDS: MECLIZINE 25 MG TABLET PO ×2 (07:47→20:31)
[2018-05-05] MEDS: diazePAM 2 MG TAB PO ×2 (07:50→20:30)
[2018-05-05] MEDS: ACETAMINOPHEN TAB 650MG DOSE (2X325MG) PO ×2 (07:50→13:09)
[2018-05-05 11:33] LABS: BEDSIDE GLUCOSE 353 MG/DL (70-105)
[2018-05-05] MEDS: MECLIZINE 12.5 MG TAB PO (13:08)
[2018-05-05 16:33] LABS: BEDSIDE GLUCOSE 419 MG/DL (70-105)
[2018-05-05 20:08] LABS: BEDSIDE GLUCOSE 555 MG/DL (70-105)
[2018-05-05] MEDS: AMITRIPTYLINE 25 MG TAB PO (20:30)
[2018-05-06] MEDS: ACETAMINOPHEN TAB 650MG DOSE (2X325MG) PO (03:12)
[2018-05-06] MEDS: diphenhydrAMINE INJ 50MG/ML VIAL (J1200) IV (03:16)
[2018-05-06 06:39] LABS: HEMATOCRIT 45.3 % (42.0-52.0); HEMOGLOBIN 16.1 g/dl (13.5-17.5); MEAN CORPUSCULAR HEMOGLOBIN 33.7 pg (27.0-33.0); MEAN CORPUSCULAR HGB CONC 35.5 g/dl (32.0-36.5); MEAN CORPUSCULAR VOLUME 94.8 fl (80.0-96.0); PLATELET COUNT, AUTOMATED 252 10^3/uL (150-450); RED BLOOD COUNT 4.78 10^6/uL (4.30-6.10); RED CELL DISTRIBUTION WIDTH 12.5 % (11.5-14.5); WHITE BLOOD COUNT 10.4 10^3/uL (4.0-10.0)
[2018-05-06] MEDS: HumaLOG INSULIN (NovoLOG) PER UNIT SC ×5 (07:30→17:34)
[2018-05-06 07:38] LABS: BEDSIDE GLUCOSE 352 MG/DL (70-105)
[2018-05-06] MEDS: ENOXAPARIN 40 MG/0.4 ML SYRINGE (J1650) SC (07:51)
[2018-05-06] MEDS: LEVEMIR (INSULIN DETEMIR) 1 UNITS/0.01ML SC ×2 (07:52→21:50)
[2018-05-06] MEDS: ASPIRIN 325 MG TAB PO (07:53)
[2018-05-06] MEDS: MAGNESIUM OXIDE 400 MG TAB (MAG-OX) PO ×2 (07:54→21:51)
[2018-05-06] MEDS: SIMVASTATIN 20 MG TAB PO (07:54)
[2018-05-06] MEDS: LISINOPRIL *2.5 MG* TAB PO (07:54)
[2018-05-06] MEDS: CARVedilol 3.125 MG TAB PO ×2 (07:55→21:51)
[2018-05-06] MEDS: ALLOPURINOL 100 MG TAB PO (07:55)
[2018-05-06] MEDS: MECLIZINE 25 MG TABLET PO ×2 (07:55→21:51)
[2018-05-06] MEDS: TOPIRAMATE (TopAMAX) 25 MG TAB PO ×2 (07:55→21:50)
[2018-05-06] MEDS: diazePAM 2 MG TAB PO ×2 (08:09→21:51)
[2018-05-06 08:14] LABS: ANION GAP 10 MEQ/L (8-16); CARBON DIOXIDE LEVEL 26 MEQ/L (21-32); CHLORIDE LEVEL 96 MEQ/L (98-107); CREATININE FOR GFR 0.88 MG/DL (0.70-1.30); GLOMERULAR FILTRATION RATE > 60.0 (>56); MAGNESIUM LEVEL 1.8 MG/DL (1.8-2.4); POTASSIUM SERUM 4.2 MEQ/L (3.5-5.1); SODIUM LEVEL 132 MEQ/L (136-145)
[2018-05-06 08:46] LABS: BLOOD UREA NITROGEN 26 MG/DL (7-18); CALCIUM LEVEL 9.3 MG/DL (8.5-10.1); GLUCOSE, FASTING 343 MG/DL (70-100)
[2018-05-06 11:49] LABS: BEDSIDE GLUCOSE 348 MG/DL (70-105)
[2018-05-06 17:02] LABS: BEDSIDE GLUCOSE 379 MG/DL (70-105)
[2018-05-06] MEDS: MECLIZINE 12.5 MG TAB PO (17:18)
[2018-05-06 20:23] LABS: BEDSIDE GLUCOSE 524 MG/DL (70-105)
[2018-05-06 20:28] LABS: BEDSIDE GLUCOSE 543 MG/DL (70-105)
[2018-05-06] MEDS: AMITRIPTYLINE 50 MG TAB PO (21:50)
[2018-05-07] MEDS: MECLIZINE 12.5 MG TAB PO ×2 (04:15→16:07)
[2018-05-07 06:33] LABS: BEDSIDE GLUCOSE 356 MG/DL (70-105)
[2018-05-07 07:28] LABS: ANION GAP 11 MEQ/L (8-16); BLOOD UREA NITROGEN 30 MG/DL (7-18); CALCIUM LEVEL 8.3 MG/DL (8.5-10.1); CARBON DIOXIDE LEVEL 21 MEQ/L (21-32); CHLORIDE LEVEL 101 MEQ/L (98-107); CREATININE FOR GFR 0.93 MG/DL (0.70-1.30); GLOMERULAR FILTRATION RATE > 60.0 (>56); SODIUM LEVEL 133 MEQ/L (136-145)
[2018-05-07 07:29] LABS: POTASSIUM SERUM 5.8 MEQ/L (3.5-5.1)
[2018-05-07 07:30] LABS: GLUCOSE, FASTING 342 MG/DL (70-100)
[2018-05-07 07:32] LABS: BEDSIDE GLUCOSE 394 MG/DL (70-105)
[2018-05-07] MEDS: ENOXAPARIN 40 MG/0.4 ML SYRINGE (J1650) SC (07:50)
[2018-05-07] MEDS: HumaLOG INSULIN (NovoLOG) PER UNIT SC ×2 (07:50→12:45)
[2018-05-07] MEDS: ASPIRIN 325 MG TAB PO (07:51)
[2018-05-07] MEDS: ALLOPURINOL 100 MG TAB PO (07:51)
[2018-05-07] MEDS: LEVEMIR (INSULIN DETEMIR) 1 UNITS/0.01ML SC ×2 (07:51→12:44)
[2018-05-07] MEDS: diazePAM 2 MG TAB PO ×2 (07:51→20:25)
[2018-05-07] MEDS: TOPIRAMATE (TopAMAX) 25 MG TAB PO ×2 (07:51→20:25)
[2018-05-07] MEDS: LISINOPRIL *2.5 MG* TAB PO (07:51)
[2018-05-07] MEDS: MECLIZINE 25 MG TABLET PO ×2 (07:51→20:23)
[2018-05-07] MEDS: SIMVASTATIN 20 MG TAB PO (07:51)
[2018-05-07] MEDS: CARVedilol 3.125 MG TAB PO ×2 (07:52→20:24)
[2018-05-07] MEDS: MAGNESIUM OXIDE 400 MG TAB (MAG-OX) PO ×2 (07:52→20:24)
[2018-05-07 09:11] LABS: HEMATOCRIT 43.7 % (42.0-52.0); HEMOGLOBIN 17.2 g/dl (13.5-17.5); MEAN CORPUSCULAR VOLUME 96.5 fl (80.0-96.0); PLATELET COUNT, AUTOMATED 275 10^3/uL (150-450); RED BLOOD COUNT 4.53 10^6/uL (4.30-6.10); RED CELL DISTRIBUTION WIDTH 12.7 % (11.5-14.5); WHITE BLOOD COUNT 12.1 10^3/uL (4.0-10.0)
[2018-05-07 10:50] LABS: MEAN CORPUSCULAR HEMOGLOBIN 31.4 pg (27.0-33.0); MEAN CORPUSCULAR HGB CONC 32.1 g/dl (32.0-36.5); POS COUNT POS FLAG
[2018-05-07 11:14] LABS: BEDSIDE GLUCOSE 406 MG/DL (70-105)
[2018-05-07 14:48] LABS: BEDSIDE GLUCOSE 550 MG/DL (70-105)
[2018-05-07 15:39] LABS: BEDSIDE GLUCOSE CONFIRMATION 644 MG/DL (LESS THAN 200)
[2018-05-07 15:53] LABS: ANION GAP 15 MEQ/L (8-16); CARBON DIOXIDE LEVEL 20 MEQ/L (21-32); CHLORIDE LEVEL 94 MEQ/L (98-107); CREATININE FOR GFR 1.83 MG/DL (0.70-1.30); GLOMERULAR FILTRATION RATE 40.8 (>56); POTASSIUM SERUM 5.1 MEQ/L (3.5-5.1); SODIUM LEVEL 129 MEQ/L (136-145)
[2018-05-07 15:55] LABS: GLUCOSE, FASTING > 500.0 MG/DL (70-100)
[2018-05-07] MEDS ORDERED: NS 1,000 ML IV (16:00)
[2018-05-07] MEDS: SODIUM CHLORIDE 0.9% 1000 ML IV (16:07)
[2018-05-07 16:35] LABS: BLOOD UREA NITROGEN 33 MG/DL (7-18)
[2018-05-07 16:44] LABS: CALCIUM LEVEL 8.5 MG/DL (8.5-10.1)
[2018-05-07 16:46] LABS: BEDSIDE GLUCOSE 412 MG/DL (70-105)
[2018-05-07] MEDS ORDERED: INSULIN HUMAN REGULAR 100 UNITS in NS 99 ML IV ×2 (16:56→18:00)
[2018-05-07] MEDS ORDERED: NS 0.45% 1,000 ML IV (17:15)
[2018-05-07 17:20] LABS: VENOUS BASE EXCESS -3.6 (-2.0-2.0); VENOUS HCO3 20.1 MEQ/L (23.0-27.0); VENOUS O2 SATURATION 97.4 % (60.0-80.0); VENOUS PARTIAL PRESSURE CO2 32.5 mmHg (38.0-50.0); VENOUS PARTIAL PRESSURE O2 190.2 mmHg (30.0-50.0); VENOUS PH 7.409 UNITS (7.330-7.430); VENOUS STANDARD HCO3 21.5 MEQ/L; VENOUS TOTAL CO2 21.1 MEQ/L (24.0-28.0)
[2018-05-07 17:31] LABS: OSMOLALITY SERUM 317 MOSM/KG (275-295)
[2018-05-07 18:30] LABS: BEDSIDE GLUCOSE 367 MG/DL (70-105)
[2018-05-07] MEDS: INSULIN HUMAN REGULAR 100 UNITS in NS 99 ML IV (18:35)
[2018-05-07] MEDS: KCL 20MEQ IN 0.45NS 1000ML 1,000 ML IV (18:35)
[2018-05-07 19:02] LABS: VENOUS BASE EXCESS -4.2 (-2.0-2.0); VENOUS HCO3 19.7 MEQ/L (23.0-27.0); VENOUS O2 SATURATION 97.1 % (60.0-80.0); VENOUS PARTIAL PRESSURE CO2 32.8 mmHg (38.0-50.0); VENOUS PARTIAL PRESSURE O2 160.5 mmHg (30.0-50.0); VENOUS PH 7.397 UNITS (7.330-7.430); VENOUS TOTAL CO2 20.7 MEQ/L (24.0-28.0)
[2018-05-07 19:20] LABS: ACETONE/KETONE 1.17 MG/DL (<2.81); ANION GAP 9 MEQ/L (8-16); CARBON DIOXIDE LEVEL 23 MEQ/L (21-32); CHLORIDE LEVEL 96 MEQ/L (98-107); CREATININE FOR GFR 1.48 MG/DL (0.70-1.30); GLOMERULAR FILTRATION RATE 52.2 (>56); LIPASE 145 U/L (73-393); PHOSPHORUS LEVEL 3.3 MG/DL (2.5-4.9); POTASSIUM SERUM 4.2 MEQ/L (3.5-5.1); SODIUM LEVEL 128 MEQ/L (136-145); TROPONIN I < 0.02 NG/ML (< 0.10)
[2018-05-07 19:22] LABS: GLUCOSE, FASTING 495 MG/DL (70-100)
[2018-05-07 19:32] LABS: AST/SGOT 75 U/L (7-37); CK-MB VALUE MASS < 1.0 NG/ML (<3.6)
[2018-05-07 19:35] LABS: OSMOLALITY URINE 633 MOSM/KG (500-800)
[2018-05-07 19:45] LABS: KETONE, URINE AUTO RFX NEGATIVE (NEGATIVE); LEUKOCYTE ESTERASE UR AUTO RFX NEGATIVE (NEGATIVE); MUCUS, URINE RFX SMALL (NEGATIVE); NITRITE, URINE AUTO RFX NEGATIVE (NEGATIVE); RBC, URINE AUTO RFX 0 /HPF (0-3); SQUAM EPITHELIAL CELL UR AURFX 0 /HPF (0-6); WBC, URINE AUTO RFX 0 /HPF (0-3)
[2018-05-07 19:46] LABS: SODIUM,RANDOM URINE 112 MEQ/L
[2018-05-07 19:59] LABS: ALT/SGPT 78 U/L (12-78); BLOOD UREA NITROGEN 37 MG/DL (7-18); CALCIUM LEVEL 8.5 MG/DL (8.5-10.1)
[2018-05-07 20:00] LABS: ALKALINE PHOSPHATASE 111 U/L (45-117); BILIRUBIN,DIRECT 0.3 MG/DL (0.0-0.2); BILIRUBIN,TOTAL 1.7 MG/DL (0.2-1.0); CPK CREATINE PHOSPHOKINASE 244 U/L (39-308); TOTAL PROTEIN 6.4 GM/DL (6.4-8.2)
[2018-05-07] MEDS: INSULIN IV RATE CHANGE DOCUMENTATION ML/HR XX ×2 (20:00→22:08)
[2018-05-07 20:01] LABS: ALBUMIN 2.2 GM/DL (3.2-5.2); ALBUMIN/GLOBULIN RATIO 0.52 (1.00-1.93)
[2018-05-07 20:58] LABS: BEDSIDE GLUCOSE 309 MG/DL (70-105)
[2018-05-07] MEDS ORDERED: HumaLOG INSULIN (NovoLOG) PER UNIT SC (21:00)
[2018-05-07 22:09] LABS: BEDSIDE GLUCOSE 285 MG/DL (70-105)
[2018-05-07 23:06] LABS: BEDSIDE GLUCOSE 279 MG/DL (70-105)
[2018-05-08 00:06] LABS: BEDSIDE GLUCOSE 262 MG/DL (70-105)
[2018-05-08 00:18] LABS: ANION GAP 12 MEQ/L (8-16); CARBON DIOXIDE LEVEL 18 MEQ/L (21-32); CHLORIDE LEVEL 99 MEQ/L (98-107); CREATININE FOR GFR 1.03 MG/DL (0.70-1.30); GLOMERULAR FILTRATION RATE > 60.0 (>56); SODIUM LEVEL 129 MEQ/L (136-145)
[2018-05-08 00:22] LABS: BEDSIDE GLUCOSE 319 MG/DL (70-105)
[2018-05-08] MEDS: KCL 20MEQ IN 0.45NS 1000ML 1,000 ML IV ×2 (00:53→06:48)
[2018-05-08 00:58] LABS: GLUCOSE, FASTING 401 MG/DL (70-100)
[2018-05-08 01:19] LABS: CALCIUM LEVEL 8.5 MG/DL (8.5-10.1)
[2018-05-08 03:00] LABS: BEDSIDE GLUCOSE 256 MG/DL (70-105)
[2018-05-08 03:00] LABS: BEDSIDE GLUCOSE 240 MG/DL (70-105)
[2018-05-08 03:00] LABS: BEDSIDE GLUCOSE 261 MG/DL (70-105)
[2018-05-08 03:07] LABS: HEMATOCRIT 41.8 % (42.0-52.0); MEAN CORPUSCULAR VOLUME 94.4 fl (80.0-96.0); PLATELET COUNT, AUTOMATED 231 10^3/uL (150-450); RED BLOOD COUNT 4.43 10^6/uL (4.30-6.10); RED CELL DISTRIBUTION WIDTH 12.4 % (11.5-14.5)
[2018-05-08 03:55] LABS: ANION GAP 9 MEQ/L (8-16); BLOOD UREA NITROGEN 24 MG/DL (7-18); CALCIUM LEVEL 8.1 MG/DL (8.5-10.1); CARBON DIOXIDE LEVEL 21 MEQ/L (21-32); CHLORIDE LEVEL 104 MEQ/L (98-107); CREATININE FOR GFR 0.75 MG/DL (0.70-1.30); GLOMERULAR FILTRATION RATE > 60.0 (>56); GLUCOSE, FASTING 288 MG/DL (70-100); POTASSIUM SERUM 4.2 MEQ/L (3.5-5.1); SODIUM LEVEL 134 MEQ/L (136-145)
[2018-05-08 04:07] LABS: BEDSIDE GLUCOSE 261 MG/DL (70-105)
[2018-05-08 04:10] LABS: MEAN CORPUSCULAR HEMOGLOBIN 32.5 pg (27.0-33.0); MEAN CORPUSCULAR HGB CONC 34.6 g/dl (32.0-36.5); POS COUNT POS FLAG
[2018-05-08 04:13] LABS: HEMOGLOBIN 14.8 g/dl (13.5-17.5)
[2018-05-08 05:04] LABS: BEDSIDE GLUCOSE 260 MG/DL (70-105)
[2018-05-08 05:58] LABS: BEDSIDE GLUCOSE 260 MG/DL (70-105)
[2018-05-08 06:52] LABS: BEDSIDE GLUCOSE 251 MG/DL (70-105)
[2018-05-08 07:08] LABS: ACETONE/KETONE 8.05 MG/DL (<2.81); ANION GAP 11 MEQ/L (8-16); BLOOD UREA NITROGEN 21 MG/DL (7-18); CALCIUM LEVEL 8.1 MG/DL (8.5-10.1); CARBON DIOXIDE LEVEL 21 MEQ/L (21-32); CHLORIDE LEVEL 104 MEQ/L (98-107); CREATININE FOR GFR 0.64 MG/DL (0.70-1.30); GLOMERULAR FILTRATION RATE > 60.0 (>56); GLUCOSE, FASTING 280 MG/DL (70-100); MAGNESIUM LEVEL 1.5 MG/DL (1.8-2.4); POTASSIUM SERUM 4.4 MEQ/L (3.5-5.1); SODIUM LEVEL 136 MEQ/L (136-145)
[2018-05-08] MEDS: MECLIZINE 25 MG TABLET PO ×2 (08:38→21:07)
[2018-05-08] MEDS: ENOXAPARIN 40 MG/0.4 ML SYRINGE (J1650) SC (08:38)
[2018-05-08] MEDS: MAGNESIUM OXIDE 400 MG TAB (MAG-OX) PO ×2 (08:38→21:07)
[2018-05-08] MEDS: MAG SULF 1GM/100ML (MAG RUN) 1 GM in APPROPRIATE DILUENT 1 EA IV ×2 (08:38→10:01)
[2018-05-08] MEDS: CARVedilol 3.125 MG TAB PO ×2 (08:38→21:08)
[2018-05-08] MEDS: ASPIRIN 325 MG TAB PO (08:38)
[2018-05-08] MEDS: SIMVASTATIN 20 MG TAB PO (08:38)
[2018-05-08] MEDS: TOPIRAMATE (TopAMAX) 25 MG TAB PO ×2 (08:39→21:11)
[2018-05-08] MEDS: ALLOPURINOL 100 MG TAB PO (08:39)
[2018-05-08 09:13] LABS: BEDSIDE GLUCOSE 273 MG/DL (70-105)
[2018-05-08 09:13] LABS: BEDSIDE GLUCOSE 250 MG/DL (70-105)
[2018-05-08] MEDS: LEVEMIR (INSULIN DETEMIR) 1 UNITS/0.01ML SC ×3 (10:01→21:07)
[2018-05-08] MEDS: diazePAM 2 MG TAB PO ×2 (10:01→21:11)
[2018-05-08] MEDS: LISINOPRIL *2.5 MG* TAB PO (10:02)
[2018-05-08 10:15] LABS: BEDSIDE GLUCOSE 282 MG/DL (70-105)
[2018-05-08 11:34] LABS: BEDSIDE GLUCOSE 288 MG/DL (70-105)
[2018-05-08] MEDS ORDERED: HumaLOG INSULIN (NovoLOG) PER UNIT SC (12:00)
[2018-05-08] MEDS: HumaLOG INSULIN (NovoLOG) PER UNIT SC ×3 (12:09→21:06)
[2018-05-08] MEDS ORDERED: SLF 3 ML SYR IV (13:00)
[2018-05-08] MEDS: SLF 3 ML SYR IV ×2 (14:00→21:12)
[2018-05-08 17:00] LABS: BEDSIDE GLUCOSE 362 MG/DL (70-105)
[2018-05-08 17:00] LABS: BEDSIDE GLUCOSE 455 MG/DL (70-105)
[2018-05-08 20:59] LABS: BEDSIDE GLUCOSE 429 MG/DL (70-105)
[2018-05-09] MEDS: SLF 3 ML SYR IV ×2 (05:26→14:00)
[2018-05-09 05:39] LABS: HEMATOCRIT 44.2 % (42.0-52.0); HEMOGLOBIN 15.1 g/dl (13.5-17.5); MEAN CORPUSCULAR HEMOGLOBIN 31.8 pg (27.0-33.0); MEAN CORPUSCULAR HGB CONC 34.2 g/dl (32.0-36.5); MEAN CORPUSCULAR VOLUME 93.1 fl (80.0-96.0); PLATELET COUNT, AUTOMATED 204 10^3/uL (150-450); RED BLOOD COUNT 4.75 10^6/uL (4.30-6.10); RED CELL DISTRIBUTION WIDTH 12.7 % (11.5-14.5); WHITE BLOOD COUNT 9.7 10^3/uL (4.0-10.0)
[2018-05-09 06:28] LABS: ANION GAP 12 MEQ/L (8-16); BLOOD UREA NITROGEN 19 MG/DL (7-18); CARBON DIOXIDE LEVEL 21 MEQ/L (21-32); CHLORIDE LEVEL 102 MEQ/L (98-107); CREATININE FOR GFR 0.88 MG/DL (0.70-1.30); GLOMERULAR FILTRATION RATE > 60.0 (>56); GLUCOSE, FASTING 288 MG/DL (70-100); MAGNESIUM LEVEL 1.8 MG/DL (1.8-2.4); SODIUM LEVEL 135 MEQ/L (136-145)
[2018-05-09] MEDS: HumaLOG INSULIN (NovoLOG) PER UNIT SC ×2 (08:21→12:32)
[2018-05-09] MEDS: LEVEMIR (INSULIN DETEMIR) 1 UNITS/0.01ML SC (08:21)
[2018-05-09] MEDS: ASPIRIN 325 MG TAB PO (08:22)
[2018-05-09] MEDS: ENOXAPARIN 40 MG/0.4 ML SYRINGE (J1650) SC (08:22)
[2018-05-09] MEDS: ALLOPURINOL 100 MG TAB PO (08:23)
[2018-05-09] MEDS: MECLIZINE 25 MG TABLET PO (08:23)
[2018-05-09] MEDS: TOPIRAMATE (TopAMAX) 25 MG TAB PO (08:23)
[2018-05-09] MEDS: MAGNESIUM OXIDE 400 MG TAB (MAG-OX) PO (08:23)
[2018-05-09] MEDS: SIMVASTATIN 20 MG TAB PO (08:23)
[2018-05-09] MEDS: CARVedilol 3.125 MG TAB PO (08:25)
[2018-05-09] MEDS: LISINOPRIL *2.5 MG* TAB PO (08:25)
[2018-05-09] MEDS: diazePAM 2 MG TAB PO (08:37)
[2018-05-09 11:52] LABS: BEDSIDE GLUCOSE 392 MG/DL (70-105)
== END 2018-05-09 16:09 | disposition home or self-care (01) | DRG 111 ==
LOC: M MSPAV 05-07 13:50 → M PCU 05-08 19:51 → M MSPAV 04-29 01:10 → M ICU 05-07 17:02 → M ED 15:49 → M ED INP 20:40
DX: H81.09 Meniere's disease, unspecified ear (principal); E11.65 Type 2 diabetes mellitus with hyperglycemia; I10 Essential (primary) hypertension; E87.1 Hypo-osmolality and hyponatremia; R51 Headache; E78.5 Hyperlipidemia, unspecified; M54.5 Low back pain; Z79.4 Long term (current) use of insulin; Z79.82 Long term (current) use of aspirin; Z79.899 Other long term (current) drug therapy; Z88.8 Allergy status to other drugs, medicaments and biological substances

== ENCOUNTER 2018-09-19 13:16 | Emergency (ER) | payer OTHER, BC ==
[~2018-09-19] VITALS: Ht 180.3 cm; Wt 100.0 kg
[~2018-09-19 13:16] MED LIST changes: +ALLO100T PO; +DIAZ2TAB PO; +DOXY100T16; +GG/CODEINE; +GLYB25TA PO; +LISI-672 PO; +LISI2.5T76 PO; -LISI30TA4 PO; +MECL-68 PO; +NORC1TAB4 PO; +NOVOINJ3 SC; +PRED20TA; +SLOWTAB2 PO; +TOPA50TA8 PO; +TRUL0.5I SC; +ZONI50CA3 PO
[2018-09-19] MEDS ORDERED: MECLIZINE 25 MG TABLET PO ONE (15:45)
[2018-09-19] MEDS ORDERED: KETOROLAC 30 MG/ML VIAL (J1885) IV ONE (15:45)
[2018-09-19] MEDS ORDERED: NS 500 ML IV ONE (15:45)
[2018-09-19] MEDS ORDERED: METOCLOPRAMIDE INJ 10MG/2ML VIAL (J2765) IV ONE (15:45)
--- NOTE | 2018-09-19 16:12 | REP ---
CT Head without contrast HISTORY: Infarction COMPARISON: 04/28/2018 There is no intraparenchymal hemorrhage, acute infarct, mass or midline shift. The ventricular system and cortical sulci are dilated consistent with minimal volume loss. . There is no extra cerebral collection. There is no fracture. The visualized sinuses are clear. IMPRESSION: Minimal volume loss. Electronically Signed by Darek Fagan MD 09/19/2018 04:03 P
[2018-09-19 16:23] LABS: BASO # 0.1 10^3/uL (0.0-0.2); BASO % 0.7 % (0.0-1.0); EOS # 0.2 10^3/uL (0.0-0.50); HEMATOCRIT 46.3 % (42.0-52.0); HEMOGLOBIN 15.7 g/dl (13.5-17.5); LYMPH # 2.9 10^3/uL (1.5-4.5); LYMPH % 24.1 % (24.0-44.0); MEAN CORPUSCULAR HGB CONC 33.9 g/dl (32.0-36.5); MEAN CORPUSCULAR VOLUME 94.5 fl (80.0-96.0); MONO # 0.7 10^3/uL (0.0-0.8); MONO % 6.1 % (0.0-5.0); NEUTROPHILS # 8.2 10^3/uL (1.8-7.7); NEUTROPHILS % 66.7 % (36.0-66.0); PLATELET COUNT, AUTOMATED 243 10^3/uL (150-450); WHITE BLOOD COUNT 12.2 10^3/uL (4.0-10.0)
[2018-09-19 16:43] LABS: BLOOD UREA NITROGEN 28 MG/DL (7-18); CARBON DIOXIDE LEVEL 23 MEQ/L (21-32); CHLORIDE LEVEL 106 MEQ/L (98-107); CPK CREATINE PHOSPHOKINASE 54 U/L (39-308); GLOMERULAR FILTRATION RATE > 60.0 (>56); GLUCOSE, FASTING 154 MG/DL (70-100); MAGNESIUM LEVEL 2.2 MG/DL (1.8-2.4); MB/CK RELATIVE INDEX 2.59 (< OR =4); POTASSIUM SERUM 4.2 MEQ/L (3.5-5.1); SODIUM LEVEL 139 MEQ/L (136-145); TROPONIN I < 0.02 NG/ML (< 0.10)
[2018-09-19] MEDS ORDERED: MECL-68 PO (18:35)
[2018-09-19 18:50] VITALS: BP 119/72
--- NOTE | 2018-09-19 20:15 | ECGEPIP ---
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
== END 2018-09-19 18:58 | disposition home or self-care (01) ==
LOC: M ED 13:16
DX: H81.09 Meniere's disease, unspecified ear (principal); R00.0 Tachycardia, unspecified; I12.9 Hypertensive chronic kidney disease with stage 1 through stage 4 chronic kidney disease, or unspecified chronic kidney disease; M54.9 Dorsalgia, unspecified; Z87.19 Personal history of other diseases of the digestive system; Z88.8 Allergy status to other drugs, medicaments and biological substances; Z79.899 Other long term (current) drug therapy; Z79.82 Long term (current) use of aspirin; Z79.4 Long term (current) use of insulin
CPT/HCPCS: 70450; 80048; 82550; 82553; 83735; 84484; 85025; 93005; 96374; 96375; 99284; J1885; J2765

== ENCOUNTER 2019-01-16 17:37 | Observation (INO) | payer BC, OTHER ==
[~2019-01-16] VITALS: Ht 180.3 cm; Wt 97.7 kg
[~2019-01-16 17:37] MED LIST changes: -/ARTH50TA PO; +ARTH1TAB4 PO; +ASPI-1 PO; -ASPI325T PO; +D-3-50003 PO; -NORC1TAB4 PO; +NORC1TAB7 PO; +PRED-351 PO; -PRED10TA PO; -VITA1CAP7 PO
[2019-01-16 18:22] LABS: BASO # 0.1 10^3/uL (0.0-0.2); BASO % 0.9 % (0.0-1.0); EOS # 0.2 10^3/uL (0.0-0.50); EOS % 1.7 % (0.0-3.0); HEMATOCRIT 46.4 % (42.0-52.0); HEMOGLOBIN 15.7 g/dl (13.5-17.5); LYMPH # 3.3 10^3/uL (1.5-4.5); LYMPH % 29.7 % (24.0-44.0); MEAN CORPUSCULAR HEMOGLOBIN 31.9 pg (27.0-33.0); MEAN CORPUSCULAR HGB CONC 33.8 g/dl (32.0-36.5); MEAN CORPUSCULAR VOLUME 94.3 fl (80.0-96.0); MONO # 0.6 10^3/uL (0.0-0.8); MONO % 5.7 % (0.0-5.0); NEUTROPHILS # 6.9 10^3/uL (1.8-7.7); NEUTROPHILS % 61.5 % (36.0-66.0); PLATELET COUNT, AUTOMATED 232 10^3/uL (150-450); RED BLOOD COUNT 4.92 10^6/uL (4.30-6.10); WHITE BLOOD COUNT 11.2 10^3/uL (4.0-10.0)
[2019-01-16] MEDS ORDERED: NS 1,000 ML IV ONE (18:45)
[2019-01-16] MEDS ORDERED: ACETAMINOPHEN TAB 650MG DOSE (2X325MG) PO ONE (18:45)
[2019-01-16] MEDS ORDERED: METOCLOPRAMIDE INJ 10MG/2ML VIAL (J2765) IV ONE (18:45)
[2019-01-16 19:10] LABS: ALBUMIN 3.9 GM/DL (3.2-5.2); ALT/SGPT 29 U/L (12-78); BILIRUBIN,TOTAL 0.3 MG/DL (0.2-1.0); BLOOD UREA NITROGEN 38 MG/DL (7-18); CALCIUM LEVEL 9.3 MG/DL (8.5-10.1); CARBON DIOXIDE LEVEL 21 MEQ/L (21-32); CHLORIDE LEVEL 98 MEQ/L (98-107); CREATININE FOR GFR 1.04 MG/DL (0.70-1.30); GLOMERULAR FILTRATION RATE > 60.0 (>56); GLUCOSE, FASTING 437 MG/DL (70-100); LIPASE 1446 U/L (73-393); POTASSIUM SERUM 4.4 MEQ/L (3.5-5.1); SODIUM LEVEL 131 MEQ/L (136-145); TOTAL PROTEIN 7.4 GM/DL (6.4-8.2)
[2019-01-16] MEDS ORDERED: HumaLOG INSULIN (NovoLOG) PER UNIT SC STA (19:37)
[2019-01-16] MEDS ORDERED: ISOVUE-370 76% 100ML VIAL (Q9967) As Ordered ONE (20:11)
--- NOTE | 2019-01-16 20:22 | REP ---
Acute abdominal series three views including PA chest and supine upright abdomen: PA chest: Comparison is , 2017. Lung alexander are clear. Cardiac size is normal. The didier, mediastinum, skeletal structures are unremarkable. There is artifactual density superimposed over the left hilus. There is no free subdiaphragmatic air. Impression: Artifactual density superimposed over the left hilus. Abdomen, supine upright views: The bowel gas pattern is normal. There are surgical clips in the left upper quadrant. Skeletal structures and soft tissues otherwise are unremarkable. Impression: Normal bowel gas pattern. Electronically Signed by Jaspal Ellison MD 01/16/2019 08:14 P
[2019-01-16] MEDS ORDERED: LEVEMIR (INSULIN DETEMIR) 1 UNITS/0.01ML SC SCH (21:00)
[2019-01-16] MEDS ORDERED: NORTRIPTYLINE 25 MG CAP PO SCH (21:00)
--- NOTE | 2019-01-16 21:48 | REPVR ---
EXAM: CT Abdomen and Pelvis With Contrast EXAM DATE/TIME: 01/16/2019 9:14 PM CLINICAL HISTORY: 58 years old, male; Abdominal pain; Generalized; Additional info: Elevated lipase and worsening abdominal pain TECHNIQUE: Imaging protocol: Axial computed tomography images of the abdomen and pelvis with intravenous contrast. Coronal and sagittal reformatted images were created and reviewed. Radiation optimization: All CT scans at this facility use at least one of these dose optimization techniques: automated exposure control; mA and/or kV adjustment per patient size (includes targeted exams where dose is matched to clinical indication); or iterative reconstruction. Contrast material: ISOVUE 370; Contrast volume: 100 ml; Contrast route: IV; COMPARISON: CT ABD PELVIS WITH CONTRAST 11/12/2013 8:46 PM FINDINGS: Lungs: Minimal bibasilar atelectasis. ABDOMEN: Liver: There is fatty infiltration of the liver. The liver at mid clavicular line measures 13.8 cm. Gallbladder and bile ducts: Normal. No calcified stones. No ductal dilation. Pancreas: Surgical clips caudal to the pancreatic tail of uncertain etiology. Spleen: Normal. No splenomegaly. Adrenals: Normal. No mass. Kidneys and ureters: Normal. No hydronephrosis. Stomach and bowel: Normal. No obstruction. No mucosal thickening. Appendix: There are no changes of appendicitis. A normal appendix is not seen. PELVIS: Bladder: Unremarkable as visualized. Reproductive: Calcification of the vas deferens which is symmetric. ABDOMEN and PELVIS: Intraperitoneal space: Normal. No free air. No significant fluid collection. Bones/joints: No acute fracture. No dislocation. Soft tissues: Minimal fat filled umbilical hernia. 2 adjacent ingested capsules in right upper quadrant small bowel which measure approximately 13 x 9 x 13 mm containing dense material and trace gas and are similar in appearance. Vasculature: There is minimal atherosclerotic calcification of the abdominal aorta. Lymph nodes: Normal. No enlarged lymph nodes. IMPRESSION: 1. Fatty infiltration of the liver. 2. There is calcification of the vas deferens consistent with diabetes. 3. 2 adjacent ingested capsules within a segment of small bowel in the right upper quadrant containing dense material and trace gas. 4. Otherwise negative CT abdomen/pelvis. The pancreas and peripancreatic fat is normal. There has been little change from 11/12/2013. Electronically signed by: Alejandro Barrera On 01/16/2019 21:47:17 PM
[2019-01-16] MEDS ORDERED: MECLIZINE 25 MG TABLET PO ONE (22:00)
[2019-01-16] MEDS ORDERED: CARV6.25 PO (23:49)
[2019-01-16] MEDS ORDERED: MECL-68 PO (23:49)
[2019-01-16] MEDS ORDERED: D 50CAP3 PO (23:49)
[2019-01-16] MEDS ORDERED: FLON1SPR (23:49)
[2019-01-16] MEDS ORDERED: METF500T4 PO (23:51)
[2019-01-16] MEDS ORDERED: META1TAB22 PO (23:51)
[2019-01-17] MEDS ORDERED: ACETAMINOPHEN TAB 650MG DOSE (2X325MG) PO PRN
[2019-01-17] MEDS ORDERED: GLUCAGON FOR INJ 1 MG VIAL (J1610) SC PRN
[2019-01-17] MEDS ORDERED: MAALOX 30 ML SUSP *UDC PO PRN
[2019-01-17] MEDS ORDERED: DEXTROSE 50% 50 ML SYRINGE IV PRN
[2019-01-17] MEDS ORDERED: GLUCOSE 4 GM CHEW TABLET PO PRN
[2019-01-17] MEDS ORDERED: MOM 30ML SUSPENSION UDC PO PRN
[2019-01-17] MEDS ORDERED: FLUTICASONE PROP 0.05% NASAL SPRAY 16 GM (FLONASE) PRN (00:15)
[2019-01-17] MEDS ORDERED: MECLIZINE 25 MG TABLET PO PRN (00:15)
--- NOTE | 2019-01-17 00:24 | HPEPDOC ---
General Date of Admission January 16, 2019 at 17:38 Chief Complaint The patient is a 58-year-old male admitted with a reason for visit of Dizziness. Source: Patient, RN/, Old records History of Present Illness Mr. Cotto is a 58 years old diabetic man with hx/o Meniere's disease who presents to ER with c/o nausea, vomiting and dizziness. He denies fever, chills, headache, abdominal pain, diarrhea or constipation. Dizziness is worse while moving or standing, but mild whien lying down. He had a MRI brain in 2018 to evaluate for dizziness; it was normal, as well as a head CT more recently. In the Er, pt was hemodynamically stable, but with mild orthostatic change (SBP change of less than 20) from 134 lying to 117 standing. Lipase was elevated >1000, but a CT abd/pelv was normal. Home Medications Scheduled Allopurinol (Allopurinol) 100 Mg Tab, 100 MG PO DAILY, (Reported) Aspirin (Aspirin) 325 Mg Tab, 325 MG PO DAILY, (Reported) Carvedilol (Carvedilol) 6.25 Mg Tablet, 6.25 MG PO BID, (Reported) Cholecalciferol (Vitamin D3) (Vitamin D3) 5,000 Unit Capsule, 5,000 UNIT PO DAILY, (Reported) Dulaglutide (Trulicity) 1.5 Mg/0.5 Ml Inj, 1.5 MG SC 1XWK, (Reported) TAKES ON MONDAYS Empagliflozin (Jardiance) 25 Mg Tab, 25 MG PO DAILY, (Reported) Glyburide (Glyburide) 2.5 Mg Tab, 2.5 TAB PO TID, (Reported) Insulin Aspart (Novolog Flexpen) 100 Unit/Ml Inj, 1 DOSE SC AC, (Reported) TAKES 32 UNITS PLUS SLIDING SCALE Insulin Glargine,Hum.rec.anlog (Lantus Solostar) 100 Unit/Ml Inj, 68 UNITS SC QHS, (Reported) Lisinopril (Lisinopril) 2.5 Mg Tab, 2.5 MG PO DAILY, (Reported) Magnesium Chloride (Slow-Mag) 1 Tab Tab, 1 TAB PO DAILY, (Reported) Metaxalone (Metaxalone) 800 Mg Tablet, 800 MG PO TID, (Reported) Metformin HCl (Metformin HCl ER) 500 Mg Tab.er.24h, 500 MG PO BID, (Reported) Nortriptyline HCl (Nortriptyline HCl) 50 Mg Cap, 50 MG PO QHS, (Reported) Simvastatin (Zocor) 20 Mg Tab, 20 MG PO DAILY, (Reported) Scheduled PRN Fluticasone Propionate (Flonase Allergy Relief) 9.9 Ml [place].susp, 2 SPRAYS NA DAILY PRN for NASAL CONGESTION, (Reported) Meclizine HCl (Meclizine HCl) 25 Mg Tablet, 25 MG PO Q8H PRN for DIZZINESS, (Reported) Ondansetron (Ondansetron Odt) 8 Mg Tab, 8 MG PO TID PRN for NAUSEA, (Reported) Allergies Coded Allergies: canagliflozin (Verified Allergy, Severe, ANAPHYLAXIS, 01/16/19) Past Medical History Medical History HTN, Mnires disease, insulin-dependen tDM, HLD, chronic low back pain, arthritis, adrenal gland tumor status post excision Surgical History Back surgery in 2006, appendectomy, left adrenal gland tumor excision Family History Significant Family History: Diabetes Social History * Smoker: Denies Alcohol: Denies Drugs: denies A-FIB/CHADSVASC A-FIB History Current/History of A-Fib/PAF?: No Review of Systems Constitutional: Denies: Chills, Fever Eyes: Denies: Pain ENT: Denies: Head Aches Skin: Denies: Rash, Lesions Pulmonary: Denies: Dyspnea, Cough Cardiovascular: Denies: Chest Pain, Palpitations, Edema Gastrointestinal: Reports: Nausea, Vomiting; Denies: Abdominal Pain, Diarrhea, Constipation Genitourinary: Denies: Dysuria, Frequency Musculoskeletal: Denies: Neck Pain, Back Pain Neurological: Reports: Weakness, Other Symptoms (dizziness) Psych: Reports: Mood Normal; Denies: Anxiety Physical Examination General Exam: Positive: Alert, Cooperative, No Acute Distress Eye Exam: Positive: PERRLA ENT Exam: Positive: Atraumatic Neck Exam: Positive: Supple; Negative: JVD Chest Exam: Positive: Clear to auscultation, Normal air movement Heart Exam: Positive: Rate Normal, Regular Rhythm; Negative: Murmurs Abdomen Exam: Positive: Normal bowel sounds, Soft; Negative: Tenderness Extremity Exam: Positive: Normal pulses; Negative: Edema Skin Exam: Positive: Nl turgor and temperature; Negative: Rash Neuro Exam: Positive: Normal Speech, Strength at 5/5 X4 ext, Normal Tone Psych Exam: Positive: Mental status NL, Mood NL Vital Signs Vital Signs Date Time Temp Pulse Resp B/P (MAP) Pulse Ox O2 Delivery O2 Flow Rate FiO2 01/16/19 23:00 101 94 01/16/19 20:00 127/65 (85) Room Air 01/16/19 17:56 2.0 01/16/19 17:38 96.0 19 Laboratory Data Labs 24H Laboratory Tests 2 01/16/19 18:12: Immature Granulocyte % (Auto) 0.5, White Blood Count 11.2H, Red Blood Count 4.92, Hemoglobin 15.7, Hematocrit 46.4, Mean Corpuscular Volume 94.3, Mean Corpuscular Hemoglobin 31.9, Mean Corpuscular Hemoglobin Concent 33.8, Red Cell Distribution Width 12.7, Platelet Count 232, Neutrophils (%) (Auto) 61.5, Lymphocytes (%) (Auto) 29.7, Monocytes (%) (Auto) 5.7H, Eosinophils (%) (Auto) 1.7, Basophils (%) (Auto) 0.9, Neutrophils # (Auto) 6.9, Lymphocytes # (Auto) 3.3, Monocytes # (Auto) 0.6, Eosinophils # (Auto) 0.2, Basophils # (Auto) 0.1, Nucleated Red Blood Cells % (auto) 0.0, Anion Gap 12, Glomerular Filtration Rate > 60.0, Blood Urea Nitrogen 38H, Creatinine 1.04, Sodium Level 131L, Potassium Level 4.4, Chloride Level 98, Carbon Dioxide Level 21, Calcium Level 9.3, Aspartate Amino Transf (AST/SGOT) 23, Alanine Aminotransferase (ALT/SGPT) 29, Alkaline Phosphatase 93, Total Bilirubin 0.3, Total Protein 7.4, Albumin 3.9, Albumin/Globulin Ratio 1.11, Lipase 1446H 01/16/19 19:42: Urine Color STRAW, Urine Appearance CLEAR, Urine pH 5.0, Urine Specific [place] 1.023, Urine Protein NEGATIVE, Urine Glucose (UA) 3+H, Urine Ketones TRACEH, Urine Blood NEGATIVE, Urine Nitrite NEGATIVE, Urine Bilirubin NEGATIVE, Urine Urobilinogen 0.2, Urine Leukocyte Esterase NEGATIVE, Urine WBC (Auto) 0, Urine RBC (Auto) 1, Urine Hyaline Casts (Auto) 0, Urine Bacteria (Auto) NEGATIVE, Urine Squamous Epithelial Cells 0, Urine Sperm (Auto) 01/16/19 21:14: Bedside Glucose (Misc Panel) 307H CBC/BMP Laboratory Tests 01/16/19 18:12 Red Blood Count 4.92, Mean Corpuscular Volume 94.3, Mean Corpuscular Hemoglobin 31.9, Mean Corpuscular Hemoglobin Concent 33.8, Red Cell Distribution Width 12.7, Neutrophils (%) (Auto) 61.5, Lymphocytes (%) (Auto) 29.7, Monocytes (%) (Auto) 5.7 H, Eosinophils (%) (Auto) 1.7, Basophils (%) (Auto) 0.9, Neutrophils # (Auto) 6.9, Lymphocytes # (Auto) 3.3, Monocytes # (Auto) 0.6, Eosinophils # (Auto) 0.2, Basophils # (Auto) 0.1, Calcium Level 9.3, Aspartate Amino Transf (AST/SGOT) 23, Alanine Aminotransferase (ALT/SGPT) 29, Alkaline Phosphatase 93, Total Bilirubin 0.3, Total Protein 7.4, Albumin 3.9 Assessment/Plan Dizziness with hx/o Meniere's Disease - Keep on Observation - PT consult - PRN Meclizine Nausea, vomiting - Anti-emetic, IV fluid - Source of elevated Lipase should be GI tract not Pancreas; CT abd normal. Uncontrolled IDDM - GRAYSON, SSI - Hold oral agents for now Plan / VTE VTE Prophylaxis Ordered?: No VTE Exclusion Mechanical Proph: Low Risk for VTE VTE Exclusion Pharmacological: At Low Risk for VTE Plan Anticipated Discharge: Home SONA MACIAS MD January 17, 2019 00:24
[2019-01-17] MEDS: METOCLOPRAMIDE INJ 10MG/2ML VIAL (J2765) IV SCH ×3 (00:29→16:00)
[2019-01-17] MEDS: LR 1,000 ML IV SCH ×2 (01:54→09:14)
[2019-01-17 01:55] VITALS: BP 132/65
[2019-01-17 06:00] VITALS: BP 139/83
[2019-01-17 06:25] LABS: HEMATOCRIT 43.4 % (42.0-52.0); HEMOGLOBIN 14.5 g/dl (13.5-17.5); MEAN CORPUSCULAR HEMOGLOBIN 31.6 pg (27.0-33.0); MEAN CORPUSCULAR HGB CONC 33.4 g/dl (32.0-36.5); MEAN CORPUSCULAR VOLUME 94.6 fl (80.0-96.0); PLATELET COUNT, AUTOMATED 223 10^3/uL (150-450); RED BLOOD COUNT 4.59 10^6/uL (4.30-6.10); WHITE BLOOD COUNT 10.3 10^3/uL (4.0-10.0)
[2019-01-17 06:53] LABS: ALBUMIN 3.4 GM/DL (3.2-5.2); ALT/SGPT 23 U/L (12-78); BILIRUBIN,TOTAL 0.3 MG/DL (0.2-1.0); BLOOD UREA NITROGEN 31 MG/DL (7-18); CARBON DIOXIDE LEVEL 23 MEQ/L (21-32); CHLORIDE LEVEL 103 MEQ/L (98-107); CREATININE FOR GFR 0.97 MG/DL (0.70-1.30); GLOMERULAR FILTRATION RATE > 60.0 (>56); GLUCOSE, FASTING 288 MG/DL (70-100); LIPASE 731 U/L (73-393); POTASSIUM SERUM 4.5 MEQ/L (3.5-5.1); SODIUM LEVEL 136 MEQ/L (136-145)
[2019-01-17] MEDS ORDERED: LISINOPRIL *2.5 MG* TAB PO SCH (09:00)
[2019-01-17] MEDS ORDERED: PANTOPRAZOLE 40MG INJ (PROTONIX) (C9113) IV SCH (09:00)
[2019-01-17] MEDS ORDERED: SIMVASTATIN 20 MG TAB PO SCH (09:00)
[2019-01-17] MEDS ORDERED: ALLOPURINOL 100 MG TAB PO SCH (09:00)
[2019-01-17] MEDS ORDERED: CARVedilol 6.25 MG TAB PO SCH (09:00)
[2019-01-17] MEDS ORDERED: ASPIRIN 325 MG TAB PO SCH (09:00)
[2019-01-17] MEDS: METAXALONE 800 MG TABLET PO SCH ×2 (09:13→16:39)
[2019-01-17] MEDS: HumaLOG INSULIN (NovoLOG) PER UNIT SC SCH ×3 (09:13→16:40)
[2019-01-17 09:14] VITALS: BP 139/83
[2019-01-17 10:00] VITALS: BP 137/63
--- NOTE | 2019-01-17 13:29 | ECGEPIP ---
Stationary ECG Study 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
[2019-01-17 14:00] VITALS: BP 145/73
--- NOTE | 2019-01-17 15:34 | DS.PDOC ---
Discharge Summary General Date of Admission January 16, 2019 at 17:38 Date of Discharge January 17, 2019 Discharge Summary DISCHARGE DIAGNOSES: VERTIGO MENIERE'S DISEASE ELEVATED LIPASE TYPE 2 DIABETES MELLITUS DISCHARGE MEDICATIONS: PLS SEE BELOW FOLLOW-INSTRUCTIONS: [facility] WITHIN 5 DAYS OF HOSPITAL DISCHARGE. PCP FU APPT WITHIN 7 DAYS HISTORY OF PRESENTING ILLNESS: Mr. Cotto is a 58 years old diabetic man with hx/o Meniere's disease who presents to ER with c/o nausea, vomiting and dizziness. He denies fever, chills, headache, abdominal pain, diarrhea or constipation. Dizziness is worse while moving or standing, but mild whien lying down. He had a MRI brain in 2018 to evaluate for dizziness; it was normal, as well as a head CT more recently.In the Er, pt was hemodynamically stable, but with mild orthostatic change (SBP change of less than 20) from 134 lying to 117 standing. Lipase was elevated >1000, but a CT abd/pelv was normal. HOSPITAL COURSE: Meniere's Disease admitted for vertigo. pt was kept on fall precautions and PRN meclizine. PT consulted. Patient passed HSE, and cleared for DC home. Outpt fu with [facility] in 5 days. Previous MRI [address] Head 2019 unremarkable. Nausea, vomiting, resolved. no abdominal pain and tolerated his diet - Anti-emetic, s/p IV fluid - Source of elevated Lipase should be GI tract not Pancreas; CT abd normal. Uncontrolled IDDM - GRAYSON, SSI DISCHARGE PHYSICAL EXAMINATION: VITALS: PLS SEE BELOW General Exam: Positive: Alert, Cooperative, No Acute Distress Eye Exam: Positive: PERRLA ENT Exam: Positive: Atraumatic Neck Exam: Positive: Supple; Negative: JVD Chest Exam: Positive: Clear to auscultation, Normal air movement Heart Exam: Positive: Rate Normal, Regular Rhythm; Negative: Murmurs Abdomen Exam: Positive: Normal bowel sounds, Soft; Negative: Tenderness Extremity Exam: Positive: Normal pulses; Negative: Edema Skin Exam: Positive: Nl turgor and temperature; Negative: Rash Neuro Exam: Positive: Normal Speech, Strength at 5/5 X4 ext, Normal Tone Psych Exam: Positive: Mental status NL, Mood NL Laboratory Data, Imaging studies, microbiology: pls see below Labs 24H Laboratory Tests 2 01/16/19 18:12: Immature Granulocyte % (Auto) 0.5, White Blood Count 11.2H, Red Blood Count 4.92, Hemoglobin 15.7, Hematocrit 46.4, Mean Corpuscular Volume 94.3, Mean Corpuscular Hemoglobin 31.9, Mean Corpuscular Hemoglobin Concent 33.8, Red Cell Distribution Width 12.7, Platelet Count 232, Neutrophils (%) (Auto) 61.5, Lymphocytes (%) (Auto) 29.7, Monocytes (%) (Auto) 5.7H, Eosinophils (%) (Auto) 1.7, Basophils (%) (Auto) 0.9, Neutrophils # (Auto) 6.9, Lymphocytes # (Auto) 3.3, Monocytes # (Auto) 0.6, Eosinophils # (Auto) 0.2, Basophils # (Auto) 0.1, Nucleated Red Blood Cells % (auto) 0.0, Anion Gap 12, Glomerular Filtration Rate > 60.0, Blood Urea Nitrogen 38H, Creatinine 1.04, Sodium Level 131L, Potassium Level 4.4, Chloride Level 98, Carbon Dioxide Level 21, Calcium Level 9.3, Aspartate Amino Transf (AST/SGOT) 23, Alanine Aminotransferase (ALT/SGPT) 29, Alkaline Phosphatase 93, Total Bilirubin 0.3, Total Protein 7.4, Albumin 3.9, Albumin/Globulin Ratio 1.11, Lipase 1446H 01/16/19 19:42: Urine Color STRAW, Urine Appearance CLEAR, Urine pH 5.0, Urine Specific [place] 1.023, Urine Protein NEGATIVE, Urine Glucose (UA) 3+H, Urine Ketones TRACEH, Urine Blood NEGATIVE, Urine Nitrite NEGATIVE, Urine Bilirubin NEGATIVE, Urine Urobilinogen 0.2, Urine Leukocyte Esterase NEGATIVE, Urine WBC (Auto) 0, Urine RBC (Auto) 1, Urine Hyaline Casts (Auto) 0, Urine Bacteria (Auto) NEGATIVE, Urine Squamous Epithelial Cells 0, Urine Sperm (Auto) 01/16/19 21:14: Bedside Glucose (Misc Panel) 307H CBC/BMP Laboratory Tests 01/16/19 18:12 Red Blood Count 4.92, Mean Corpuscular Volume 94.3, Mean Corpuscular Hemoglobin 31.9, Mean Corpuscular Hemoglobin Concent 33.8, Red Cell Distribution Width 12.7, Neutrophils (%) (Auto) 61.5, Lymphocytes (%) (Auto) 29.7, Monocytes (%) (Auto) 5.7 H, Eosinophils (%) (Auto) 1.7, Basophils (%) (Auto) 0.9, Neutrophils # (Auto) 6.9, Lymphocytes # (Auto) 3.3, Monocytes # (Auto) 0.6, Eosinophils # (Auto) 0.2, Basophils # (Auto) 0.1, Calcium Level 9.3, Aspartate Amino Transf (AST/SGOT) 23, Alanine Aminotransferase (ALT/SGPT) 29, Alkaline Phosphatase 93, Total Bilirubin 0.3, Total Protein 7.4, Albumin 3.9 TIME SPENT ON DISCHARGE: 35 MINUTES. Vital Signs/I&Os Vital Signs Date Time Temp Pulse Resp B/P (MAP) Pulse Ox O2 Delivery O2 Flow Rate FiO2 01/17/19 14:00 96.8 108 16 145/73 (97) 94 01/17/19 06:00 1.0 01/17/19 01:30 Room Air I&O- Last 24 Hours up to 6 AM 01/17/19 06:00 Intake Total 360 ml Output Total 2625 ml Balance -2265 ml Laboratory Data Labs 24H Laboratory Tests 2 01/16/19 18:12: Immature Granulocyte % (Auto) 0.5, White Blood Count 11.2H, Red Blood Count 4.92, Hemoglobin 15.7, Hematocrit 46.4, Mean Corpuscular Volume 94.3, Mean Corpu scular Hemoglobin 31.9, Mean Corpuscular Hemoglobin Concent 33.8, Red Cell Distribution Width 12.7, Platelet Count 232, Neutrophils (%) (Auto) 61.5, Lymphocytes (%) (Auto) 29.7, Monocytes (%) (Auto) 5.7H, Eosinophils (%) (Auto) 1.7, Basophils (%) (Auto) 0.9, Neutrophils # (Auto) 6.9, Lymphocytes # (Auto) 3.3, Monocytes # (Auto) 0.6, Eosinophils # (Auto) 0.2, Basophils # (Auto) 0.1, Nucleated Red Blood Cells % (auto) 0.0, Anion Gap 12, Glomerular Filtration Rate > 60.0, Blood Urea Nitrogen 38H, Creatinine 1.04, Sodium Level 131L, Potassium Level 4.4, Chloride Level 98, Carbon Dioxide Level 21, Calcium Level 9.3, Aspartate Amino Transf (AST/SGOT) 23, Alanine Aminotransferase (ALT/SGPT) 29, Alkaline Phosphatase 93, Total Bilirubin 0.3, Total Protein 7.4, Albumin 3.9, Albumin/Globulin Ratio 1.11, Lipase 1446H 01/16/19 19:42: Urine Color STRAW, Urine Appearance CLEAR, Urine pH 5.0, Urine Specific [place] 1.023, Urine Protein NEGATIVE, Urine Glucose (UA) 3+H, Urine Ketones TRACEH, Urine Blood NEGATIVE, Urine Nitrite NEGATIVE, Urine Bilirubin NEGATIVE, Urine Urobilinogen 0.2, Urine Leukocyte Esterase NEGATIVE, Urine WBC (Auto) 0, Urine RBC (Auto) 1, Urine Hyaline Casts (Auto) 0, Urine Bacteria (Auto) NEGATIVE, Urine Squamous Epithelial Cells 0, Urine Sperm (Auto) 01/16/19 21:14: Bedside Glucose (Misc Panel) 307H 01/17/19 05:39: Nucleated Red Blood Cells % (auto) 0.0, Anion Gap 10, Glomerular Filtration Rate > 60.0, Blood Urea Nitrogen 31H, Creatinine 0.97, Sodium Level 136, Potassium Level 4.5, Chloride Level 103, Carbon Dioxide Level 23, Calcium Level 9.0, Aspartate Amino Transf (AST/SGOT) 17, Alanine Aminotransferase (ALT/SGPT) 23, Alkaline Phosphatase 80, Total Bilirubin 0.3, Total Protein 7.0, Albumin 3.4, Albumin/Globulin Ratio 0.94L, Lipase 731H 01/17/19 11:33: Bedside Glucose (Misc Panel) 241H CBC/BMP Laboratory Tests 01/16/19 18:12 Red Blood Count 4.92, Mean Corpuscular Volume 94.3, Mean Corpuscular Hemoglobin 31.9, Mean Corpuscular Hemoglobin Concent 33.8, Red Cell Distribution Width 12.7, Neutrophils (%) (Auto) 61.5, Lymphocytes (%) (Auto) 29.7, Monocytes (%) (Auto) 5.7 H, Eosinophils (%) (Auto) 1.7, Basophils (%) (Auto) 0.9, Neutrophils # (Auto) 6.9, Lymphocytes # (Auto) 3.3, Monocytes # (Auto) 0.6, Eosinophils # (Auto) 0.2, Basophils # (Auto) 0.1, Calcium Level 9.3, Aspartate Amino Transf (AST/SGOT) 23, Alanine Aminotransferase (ALT/SGPT) 29, Alkaline Phosphatase 93, Total Bilirubin 0.3, Total Protein 7.4, Albumin 3.9 01/17/19 05:39 Red Blood Count 4.59, Mean Corpuscular Volume 94.6, Mean Corpuscular Hemoglobin 31.6, Mean Corpuscular Hemoglobin Concent 33.4, Red Cell Distribution Width 12.9, Calcium Level 9.0, Aspartate Amino Transf (AST/SGOT) 17, Alanine Aminotransferase (ALT/SGPT) 23, Alkaline Phosphatase 80, Total Bilirubin 0.3, Total Protein 7.0, Albumin 3.4 FSBS Laboratory Tests Test 01/16/19 21:14 01/17/19 11:33 Range/Units Bedside Glucose (Misc Panel) 307 241 70-105 MG/DL Discharge Medications Scheduled Allopurinol (Allopurinol) 100 Mg Tab, 100 MG PO DAILY, (Reported) Aspirin (Aspirin) 325 Mg Tab, 325 MG PO DAILY, (Reported) Carvedilol (Carvedilol) 6.25 Mg Tablet, 6.25 MG PO BID, (Reported) Cholecalciferol (Vitamin D3) (Vitamin D3) 5,000 Unit Capsule, 5,000 UNIT PO DAILY, (Reported) Dulaglutide (Trulicity) 1.5 Mg/0.5 Ml Inj, 1.5 MG SC 1XWK, (Reported) TAKES ON MONDAYS Empagliflozin (Jardiance) 25 Mg Tab, 25 MG PO DAILY, (Reported) Glyburide (Glyburide) 2.5 Mg Tab, 2.5 TAB PO TID, (Reported) Insulin Aspart (Novolog Flexpen) 100 Unit/Ml Inj, 1 DOSE SC AC, (Reported) TAKES 32 UNITS PLUS SLIDING SCALE Insulin Glargine,Hum.rec.anlog (Lantus Solostar) 100 Unit/Ml Inj, 68 UNITS SC QHS, (Reported) Lisinopril (Lisinopril) 2.5 Mg Tab, 2.5 MG PO DAILY, (Reported) Magnesium Chloride (Slow-Mag) 1 Tab Tab, 1 TAB PO DAILY, (Reported) Metaxalone (Metaxalone) 800 Mg Tablet, 800 MG PO TID, (Reported) Metformin HCl (Metformin HCl ER) 500 Mg Tab.er.24h, 500 MG PO BID, (Reported) Nortriptyline HCl (Nortriptyline HCl) 50 Mg Cap, 50 MG PO QHS, (Reported) Simvastatin (Zocor) 20 Mg Tab, 20 MG PO DAILY, (Reported) Scheduled PRN Fluticasone Propionate (Flonase Allergy Relief) 9.9 Ml [place].susp, 2 SPRAYS NA DAILY PRN for NASAL CONGESTION, (Reported) Meclizine HCl (Meclizine HCl) 25 Mg Tablet, 25 MG PO Q8H PRN for DIZZINESS, (Reported) Ondansetron (Ondansetron Odt) 8 Mg Tab, 8 MG PO TID PRN for NAUSEA, (Reported) Allergies Coded Allergies: canagliflozin (Verified Allergy, Severe, ANAPHYLAXIS, 01/16/19) VESTA CHOWDHURY MD January 17, 2019 15:34
[2019-01-17] MEDS ORDERED: HumaLOG INSULIN (NovoLOG) PER UNIT SC SCH (21:00)
== END 2019-01-17 18:22 | disposition home or self-care (01) ==
LOC: M ED 17:37 → M ED INP 17:38 → M MSPAV 01-17 01:55
PROVIDERS: ADMIT Internal Medicine; ATTEND General Practice
DX: R42 Dizziness and giddiness (principal); R74.8 Abnormal levels of other serum enzymes; E11.9 Type 2 diabetes mellitus without complications; I10 Essential (primary) hypertension; Z79.82 Long term (current) use of aspirin; Z79.84 Long term (current) use of oral hypoglycemic drugs; Z79.899 Other long term (current) drug therapy; Z88.8 Allergy status to other drugs, medicaments and biological substances
CPT/HCPCS: 36415; 74021; 74177; 80053; 81001; 83690; 85025; 85027; 93005; 96374; 96375; 97112; 97161; 99285; C9113; J2765; Q9967

== ENCOUNTER 2019-02-06 10:27 | Day surgery (SDC) | payer BC, OTHER ==
[~2019-02-06] VITALS: Ht 154.9 cm; Wt 94.3 kg
[~2019-02-06 10:27] MED LIST changes: +CARV6.25 PO; +D 50CAP3 PO; +FLON1SPR; +META1TAB22 PO; +METF500T4 PO; +NS 1,000 ML IV ONE; +PROPOFOL 200 MG/20 ML VIAL As Ordered ONE
[2019-02-06] MEDS ORDERED: LIDOCAINE 2% INJ 100 MG/5 ML SDV (FOR ANES.) As Ordered ONE (12:25)
[2019-02-06 13:00] VITALS: BP 119/63
--- NOTE | 2019-02-06 13:33 | ROOR ---
Patient Name: Guille Cotto Procedure Date: 02/06/2019 12:09 PM Date of : 1960 Age: 58 Room: [facility] Gender: Male Note Status: Finalized Procedure: Colonoscopy Indications: High risk colon cancer surveillance: Personal history of non-advanced adenoma, Last colonoscopy: August 2015 Providers: Pito Miller MD Referring MD: Lacy Callahan DO Requesting Provider: Medicines: Monitored Anesthesia Care Complications: No immediate complications. Procedure: Pre-Anesthesia Assessment: - Prior to the procedure, a History and Physical was performed, and patient medications and allergies were reviewed. The patient is competent. The risks and benefits of the procedure and the sedation options and risks were discussed with the patient. All questions were answered and informed consent was obtained. Patient identification and proposed procedure were verified by the physician, the nurse and the anesthesiologist in the procedure room. Mental Status Examination: alert and oriented. CV Examination: regular rate and rhythm. Prophylactic Antibiotics: The patient does not require prophylactic antibiotics. Prior Anticoagulants: The patient has taken no previous anticoagulant or antiplatelet agents. ASA Grade Assessment: III - A patient with severe systemic disease. After reviewing the risks and benefits, the patient was deemed in satisfactory condition to undergo the procedure. The anesthesia plan was to use monitored anesthesia care (MAC). Immediately prior to administration of medications, the patient was re-assessed for adequacy to receive sedatives. The heart rate, respiratory rate, oxygen saturations, blood pressure, adequacy of pulmonary ventilation, and response to care were monitored throughout the procedure. The physical status of the patient was re-assessed after the procedure. The Colonoscope was introduced through the anus and advanced to the ileocecal valve. The colonoscopy was somewhat difficult due to a tortuous colon. The patient tolerated the procedure well. The quality of the bowel preparation was good. Findings: The perianal and digital rectal examinations were normal. A few small-mouthed diverticula were found in the sigmoid colon. The exam was otherwise without abnormality. Impression: - Diverticulosis in the sigmoid colon. - The examination was otherwise normal. - No specimens collected. Recommendation: - Discharge patient to home. - Resume previous diet. - Continue present medications. - Repeat colonoscopy in 5 years for surveillance. Pito Miller MD Pito Miller MD 02/06/2019 1:32:59 PM Electronically signed by Pito Miller MD Number of Addenda: 0 Note Initiated On: 02/06/2019 12:09 PM Estimated Blood Loss: Estimated blood loss: none.
== END 2019-02-06 13:39 | disposition home or self-care (01) ==
LOC: M OPP 10:27
PROVIDERS: ATTEND Surgery
DX: K57.30 Diverticulosis of large intestine without perforation or abscess without bleeding (principal); Z86.010 Personal history of colon polyps

== ENCOUNTER → 2019-02-26 | Outpatient (CLI) | payer BC, OTHER ==
[~2019-02-26] MED LIST changes: -NS 1,000 ML IV ONE; -PROPOFOL 200 MG/20 ML VIAL As Ordered ONE
[2019-02-26 19:33] LABS: BASO # 0.1 10^3/uL (0.0-0.2); BASO % 0.9 % (0.0-1.0); EOS # 0.2 10^3/uL (0.0-0.50); EOS % 1.8 % (0.0-3.0); HEMATOCRIT 45.7 % (42.0-52.0); HEMOGLOBIN 15.1 g/dl (13.5-17.5); LYMPH # 2.9 10^3/uL (1.5-4.5); LYMPH % 29.5 % (24.0-44.0); MEAN CORPUSCULAR HEMOGLOBIN 32.5 pg (27.0-33.0); MEAN CORPUSCULAR VOLUME 98.3 fl (80.0-96.0); MONO # 0.7 10^3/uL (0.0-0.8); MONO % 7.1 % (0.0-5.0); NEUTROPHILS % 60.3 % (36.0-66.0); PLATELET COUNT, AUTOMATED 275 10^3/uL (150-450); RED BLOOD COUNT 4.65 10^6/uL (4.30-6.10); WHITE BLOOD COUNT 9.9 10^3/uL (4.0-10.0)
[2019-02-26 19:41] LABS: ALBUMIN 3.9 GM/DL (3.2-5.2); BILIRUBIN,TOTAL 0.2 MG/DL (0.2-1.0); C REACTIVE PROTEIN QUANTITATIV 1.41 MG/DL (0.00-0.30); CALCIUM LEVEL 8.9 MG/DL (8.5-10.1); CREATININE FOR GFR 1.55 MG/DL (0.70-1.30); GLOMERULAR FILTRATION RATE 49.3 (>56); POTASSIUM SERUM 4.8 MEQ/L (3.5-5.1); TOTAL PROTEIN 7.1 GM/DL (6.4-8.2)
[2019-02-26 20:24] LABS: ERYTHROCYTE SEDIMENTATION RATE 22 mm/hr (0-20)
[2019-03-01 00:07] LABS: Lyme Disease IgG/IgM Antibodie <0.91 ISR (0.00-0.90); Lyme Disease IgM Ab Quantitati <0.80 index (0.00-0.79)
== END ==
LOC: M LABDRWAD 14:46
PROVIDERS: ATTEND Physician Assistant
DX: R25.2 Cramp and spasm (principal)

== ENCOUNTER 2019-11-12 14:16 | Observation (INO) | payer BC, OTHER ==
[~2019-11-12] VITALS: Ht 180.3 cm; Wt 94.7 kg
[~2019-11-12 14:16] MED LIST changes: -DOXY100T16; +DOXY100T27; -MECL-68 PO; +MECL1TAB31 PO; +METF-791 PO; -METF500T4 PO; +ZONI50CA11 PO; -ZONI50CA3 PO
[2019-11-12 15:23] LABS: BASO # 0.1 10^3/uL (0.0-0.2); BASO % 0.6 % (0.0-1.0); EOS # 0.1 10^3/uL (0.0-0.5); EOS % 0.8 % (0.0-3.0); HEMATOCRIT 45.2 % (42.0-52.0); LYMPH # 2.1 10^3/uL (1.5-5.0); LYMPH % 20.5 % (24.0-44.0); MEAN CORPUSCULAR HGB CONC 35.4 g/dl (32.0-36.5); MEAN CORPUSCULAR VOLUME 93.2 fl (80.0-96.0); MONO # 0.5 10^3/uL (0.0-0.8); MONO % 4.6 % (0.0-5.0); NEUTROPHILS # 7.6 10^3/uL (1.5-8.5); PLATELET COUNT, AUTOMATED 247 10^3/uL (150-450); RED BLOOD COUNT 4.85 10^6/uL (4.30-6.10); WHITE BLOOD COUNT 10.4 10^3/uL (4.0-10.0)
--- NOTE | 2019-11-12 15:23 | REP ---
PA and lateral chest: Comparison is 12/16/2017. The lung alexander are clear. The cardiac size is normal. The didier, mediastinum, and skeletal structures are unremarkable. Impression: Negative PA and lateral chest. There is no interval change. Electronically Signed by Jaspal Ellison MD 11/12/2019 03:15 P
[2019-11-12] MEDS ORDERED: ONDANSETRON 4MG/2ML VIAL (J2405) IV ONE (15:45)
[2019-11-12] MEDS ORDERED: NS 1,000 ML IV ONE ×3 (15:45→17:30)
[2019-11-12 15:46] LABS: ERYTHROCYTE SEDIMENTATION RATE 49 mm/hr (0-20)
[2019-11-12 16:20] LABS: ALBUMIN 3.6 GM/DL (3.2-5.2); ALT/SGPT 30 U/L (12-78); BILIRUBIN,DIRECT < 0.1 MG/DL (0.0-0.2); BILIRUBIN,TOTAL 0.6 MG/DL (0.2-1.0); BLOOD UREA NITROGEN 39 MG/DL (7-18); C REACTIVE PROTEIN QUANTITATIV 0.43 MG/DL (0.00-0.30); CARBON DIOXIDE LEVEL 24 MEQ/L (21-32); CHLORIDE LEVEL 91 MEQ/L (98-107); CREATININE FOR GFR 1.51 MG/DL (0.70-1.30); GLOMERULAR FILTRATION RATE 50.6 (>56); GLUCOSE, FASTING 823 MG/DL (70-100); POTASSIUM SERUM 6.8 MEQ/L (3.5-5.1); SODIUM LEVEL 123 MEQ/L (136-145)
[2019-11-12] MEDS ORDERED: HumuLIN R (REGULAR) INSULIN (NovoLIN R) **100U/ML** PER UNIT IV ONE ×2 (16:30→17:30)
[2019-11-12] MEDS ORDERED: AJOV225I IM (16:40)
[2019-11-12] MEDS ORDERED: FISH1000 PO (16:40)
[2019-11-12 17:37] LABS: VENOUS HCO3 22.5 MEQ/L (23.0-27.0); VENOUS O2 SATURATION 96.8 % (60.0-80.0); VENOUS PARTIAL PRESSURE CO2 37.7 mmHg (38.0-50.0); VENOUS PARTIAL PRESSURE O2 < 10.0 mmHg (30.0-50.0); VENOUS PH 7.393 UNITS (7.330-7.430); VENOUS STANDARD HCO3 22.8 MEQ/L; VENOUS TOTAL CO2 23.6 MEQ/L (24.0-28.0)
--- NOTE | 2019-11-12 17:54 | HPEPDOC ---
[facility] Medical History & Physical Date of Admission Nov 12, 2019 Date of Service: Nov 12, 2019 Attending Physician: SHERITA REED MD History and Physical CHIEF COMPLAINT: Generalized fatigue and malais HISTORY OF PRESENT ILLNESS:59-year-old male with past medical history of diabetes, hypertension, hyperlipidemia who was recently diagnosed with influenza presents from home with generalized fatigue and malaise. Patient's initial symptoms started one week ago with dyspnea, cough, myalgia, arthralgia, and GI distress, was diagnosed with influenza at that time. Patient has completed 5 days of Tamiflu, was subsequently prescribed doxycycline due to persistence of productive cough. Patient reports continued symptoms with worsening today, which is why he presented to the hospital. In the ED, he is found to have blood glucose greater than 800, reports not taking any of his diabetic medication ea rlier today due to lack of oral intake and vomiting. Patient reports that he has been compliant with all of his medications prior to today. He denies any fever, chest pain, palpitations or headache 10 point review of system is negative except for above PAST MEDICAL HISTORY: 1.Diabetes mellitus. 2.Hypertension. 3., Hyperlipidemia PAST SURGICAL HISTORY: 1., Appendectomy. 2.Removal of adrenal adenoma. 3.Back surgery. SOCIAL HISTORY: Never smoker. Zocor use. Denies drug use FAMILY HISTORY: Mother had diabetes mellitus ALLERGIES: Please see below HOME MEDICATIONS: Please see below. PHYSICAL EXAMINATION: VITAL SIGNS: Please see below. GENERAL:No distress HEENT:Normocephalic, atraumatic, dry mucous membrane NECK:Suppl CARDIOVASCULAR EXAMINATION:S1, S2, tachycardic, no murmur RESPIRATORY EXAMINATION:Clear to auscultation, no wheezing ABDOMINAL EXAMINATION:Soft, nontender, nondistended, positive bowel sound EXTREMITIES:Range of motion intact SKIN:No jared NEUROLOGICAL EXAMINATION:Alert and oriented 3, no focal deficit PSYCHIATRIC EXAMINATION:Calm and cooperative LABORATORY DATA: See below. IMAGING:Chest x-ray without acute pathology MICROBIOLOGY: Please see below. ASSESSMENT:59-year-old male with past medical history diabetes, hypertension, hyperlipidemia with recent diagnosis of influenza presents with hyperglycemic hyperosmolar stat. . PLAN: 1.Hyperglycemic hyperosmolar stat. Status post 10 units of IV insulin in the ED, fingerstick count 478, will provide another 7 units of IV insulin at this time, followed by sliding-scale insulin coverage with meals and at bedtime along with Levemir. Patient has received 2 L of IV fluid bolus in the ED, will bolus 1 additional liter followed by normal saline 125 mL per hour. 2. Hyperkalemia. Likely due to extracellular movement from lack of insulin, no acidosis, should improve with IV insulin, repeat BMP at this time. 3. Acute kidney injury. Secondary to dehydration, status post bolus IV fluid in the ED, continue maintenance hydration. 4. Hypertension. Continue home Coreg and lisinopril 5. Hyperlipidemia. Continue statin 6. Diabetes Mellitus - Hold home meds, sliding scale insulin with meals and at bedtime, Levemir 60 units at bedtime. DVT prophylaxis: Heparin subcutaneous. GI prophylaxis: Not needed Vital Signs Vital Signs Date Time Temp Pulse Resp B/P (MAP) Pulse Ox O2 Delivery O2 Flow Rate FiO2 11/12/19 14:45 11/12/19 14:45 Room Air 11/12/19 14:17 97.9 101 23 96 Laboratory Data Labs 24H Laboratory Tests 2 11/12/19 15:02: Immature Granulocyte % (Auto) 0.5, Neutrophils (%) (Auto) 73.0H, Lymphocytes (%) (Auto) 20.5L, Monocytes (%) (Auto) 4.6, Eosinophils (%) (Auto) 0.8, Basophils (%) (Auto) 0.6, Neutrophils # (Auto) 7.6, Lymphocytes # (Auto) 2.1, Monocytes # (Auto) 0.5, Eosinophils # (Auto) 0.1, Basophils # (Auto) 0.1, Nucleated Red Blood Cells % (auto) 0.0, Erythrocyte Sedimentation Rate 49H, Anion Gap 8, Glomerular Filtration Rate 50.6L, Calcium Level 8.0L, Total Bilirubin 0.6, Direct Bilirubin < 0.1, Aspartate Amino Transf (AST/SGOT) 18, Alanine Aminotransferase (ALT/SGPT) 30, Alkaline Phosphatase 117, C-Reactive Protein, Quantitative 0.43H, Total Protein 7.0, Albumin 3.6, Albumin/Globulin Ratio 1.06 11/12/19 17:23: POC Lactate (Misc Panel) 1.27 11/12/19 17:30: 11/12/19 17:31: Blood Gas Bicarbonate Standard 22.8, Venous Blood pH 7.393, Venous Blood Partial Pressure CO2 37.7L, Venous Blood Partial Pressure O2 < 10.0L, Venous Blood Total Carbon Dioxide 23.6L, Venous Blood HCO3 22.5L, Venous Blood Oxygen Saturation 96.8H, Venous Blood Base Excess -2.0 CBC/BMP Laboratory Tests 11/12/19 15:02 Home Medications Scheduled Allopurinol (Allopurinol) 100 Mg Tab, 100 MG PO DAILY Aspirin (Aspirin) 325 Mg Tab, 325 MG PO DAILY Carvedilol (Carvedilol) 6.25 Mg Tablet, 6.25 MG PO BID Cholecalciferol (Vitamin D3) (Vitamin D3) 5,000 Unit Capsule, 5,000 UNIT PO DAILY Dulaglutide (Trulicity) 1.5 Mg/0.5 Ml Inj, 1.5 MG SC 1XWK TAKES ON MONDAYS Empagliflozin (Jardiance) 25 Mg Tab, 25 MG PO DAILY Glyburide (Glyburide) 2.5 Mg Tab, 2.5 TAB PO TID Insulin Aspart (Novolog Flexpen) 100 Unit/Ml Inj, 1 DOSE SC AC TAKES 32 UNITS PLUS SLIDING SCALE Insulin Glargine,Hum.rec.anlog (Lantus Solostar) 100 Unit/Ml Inj, 68 UNITS SC QHS Lisinopril (Lisinopril) 2.5 Mg Tab, 2.5 MG PO DAILY Magnesium Chloride (Slow-Mag) 1 Tab Tab, 1 TAB PO DAILY Metaxalone (Metaxalone) 800 Mg Tablet, 800 MG PO TID Metformin HCl (Metformin HCl ER) 500 Mg Tab.er.24h, 500 MG PO BID Nortriptyline HCl (Nortriptyline HCl) 50 Mg Cap, 50 MG PO QHS [place]-3 Fatty Acids/Fish Oil (Fish Oil 1,000 mg Capsule) 1 Each Capsule, 1 CAP PO DAILY Simvastatin (Zocor) 20 Mg Tab, 20 MG PO DAILY Scheduled PRN Fluticasone Propionate (Flonase Allergy Relief) 9.9 Ml [place].susp, 2 SPRAYS NA DAILY PRN for NASAL CONGESTION Meclizine HCl (Meclizine HCl) 25 Mg Tablet, 25 MG PO Q8H PRN for DIZZINESS Ondansetron (Ondansetron Odt) 8 Mg Tab, 8 MG PO TID PRN for NAUSEA Miscellaneous Medications Fremanezumab-Vfrm (Ajovy) 225 Mg/1.5 Ml Syringe Allergies Coded Allergies: canagliflozin (Verified Allergy, Severe, ANAPHYLAXIS, 01/16/19) A-FIB/CHADSVASC A-FIB History Current/History of A-Fib/PAF?: No SHERITA REED MD Nov 12, 2019 17:53
[2019-11-12 18:17] LABS: ACETONE/KETONE 9.98 MG/DL (<2.81); ALBUMIN 3.2 GM/DL (3.2-5.2); ALT/SGPT 30 U/L (12-78); BILIRUBIN,DIRECT < 0.1 MG/DL (0.0-0.2); BILIRUBIN,TOTAL 0.5 MG/DL (0.2-1.0); CK-MB VALUE MASS < 1.0 NG/ML (<3.6); CPK CREATINE PHOSPHOKINASE 67 U/L (39-308); LIPASE 565 U/L (73-393); MAGNESIUM LEVEL 2.2 MG/DL (1.8-2.4); MB/CK RELATIVE INDEX 1.49 (< OR =4); PHOSPHORUS LEVEL 2.2 MG/DL (2.5-4.9); TOTAL PROTEIN 6.9 GM/DL (6.4-8.2); TROPONIN I < 0.02 NG/ML (< 0.10)
[2019-11-12 18:18] LABS: VENOUS O2 SATURATION 97.2 % (60.0-80.0); VENOUS PARTIAL PRESSURE CO2 34.5 mmHg (38.0-50.0); VENOUS PARTIAL PRESSURE O2 130.5 mmHg (30.0-50.0); VENOUS PH 7.402 UNITS (7.330-7.430)
[2019-11-12] MEDS ORDERED: DIVA250T7 PO (18:19)
[2019-11-12] MEDS ORDERED: NORT75CA2 PO (18:19)
[2019-11-12] MEDS ORDERED: VASC1CAP2 PO (18:19)
[2019-11-12] MEDS ORDERED: VITA500079 PO (18:19)
[2019-11-12 18:51] LABS: BLOOD UREA NITROGEN 33 MG/DL (7-18); CALCIUM LEVEL 7.9 MG/DL (8.5-10.1); CARBON DIOXIDE LEVEL 24 MEQ/L (21-32); CHLORIDE LEVEL 103 MEQ/L (98-107); CREATININE FOR GFR 1.15 MG/DL (0.70-1.30); GLOMERULAR FILTRATION RATE > 60.0 (>56); GLUCOSE, FASTING 412 MG/DL (70-100); MAGNESIUM LEVEL 2.5 MG/DL (1.8-2.4); PHOSPHORUS LEVEL 2.3 MG/DL (2.5-4.9); POTASSIUM SERUM 4.2 MEQ/L (3.5-5.1); SODIUM LEVEL 135 MEQ/L (136-145)
[2019-11-12 18:53] LABS: HEMOGLOBIN A1c 12.5 %
[2019-11-12 18:58] LABS: OSMOLALITY SERUM 322 MOSM/KG (275-295)
[2019-11-12] MEDS ORDERED: HumuLIN R (REGULAR) INSULIN (NovoLIN R) **100U/ML** PER UNIT IV STA (19:09)
[2019-11-12] MEDS ORDERED: DIVALPROEX 250MG *ER* TAB PO PRN (19:15)
[2019-11-12] MEDS ORDERED: MECLIZINE 25 MG TABLET PO PRN (19:15)
[2019-11-12] MEDS ORDERED: FLUTICASONE PROP 0.05% NASAL SPRAY 16 GM (FLONASE) PRN (19:15)
[2019-11-12] MEDS: NS 1,000 ML IV SCH (19:28)
[2019-11-12] MEDS ORDERED: POTASSIUM CHLORIDE 10 MEQ SR TABLET PO ONE (20:00)
[2019-11-12] MEDS ORDERED: GLUCOSE 4 GM CHEW TABLET PO PRN (20:00)
[2019-11-12] MEDS ORDERED: DEXTROSE 50% 50 ML SYRINGE IV PRN (20:00)
[2019-11-12] MEDS ORDERED: GLUCAGON FOR INJ 1 MG VIAL (J1610) SC PRN (20:00)
[2019-11-12 20:26] VITALS: BP 138/79
[2019-11-12] MEDS ORDERED: LEVEMIR (INSULIN DETEMIR) 1 UNITS/0.01ML SC SCH (21:00)
[2019-11-12] MEDS ORDERED: NORTRIPTYLINE 25 MG CAP PO SCH (21:00)
[2019-11-12] MEDS ORDERED: HumaLOG INSULIN (NovoLOG) PER UNIT SC SCH (21:00)
[2019-11-12] MEDS: K-PHOS NEUTRAL 250MG TABLET (SOD.PHOSPHATE/POT.PHOSPHATE) PO SCH (21:43)
[2019-11-12] MEDS: CARVedilol 6.25 MG TAB PO SCH (21:44)
[2019-11-12] MEDS: METAXALONE 800 MG TABLET PO SCH (21:44)
[2019-11-12] MEDS: HEPARIN SOD (PORCINE) 5000 UNITS/ML VIAL (J1644 PER 1000UNITS) SC SCH (21:45)
[2019-11-13] VITALS: BP 150/89
[2019-11-13] MEDS: NS 1,000 ML IV SCH ×2 (01:53→08:28)
[2019-11-13 04:00] VITALS: BP 141/77
[2019-11-13] MEDS: HEPARIN SOD (PORCINE) 5000 UNITS/ML VIAL (J1644 PER 1000UNITS) SC SCH ×2 (05:12→14:00)
[2019-11-13 05:14] LABS: HEMATOCRIT 41.6 % (42.0-52.0); HEMOGLOBIN 14.4 g/dl (13.5-17.5); MEAN CORPUSCULAR HEMOGLOBIN 32.2 pg (27.0-33.0); MEAN CORPUSCULAR HGB CONC 34.6 g/dl (32.0-36.5); MEAN CORPUSCULAR VOLUME 93.1 fl (80.0-96.0); PLATELET COUNT, AUTOMATED 198 10^3/uL (150-450); RED BLOOD COUNT 4.47 10^6/uL (4.30-6.10); WHITE BLOOD COUNT 8.9 10^3/uL (4.0-10.0)
[2019-11-13 05:40] LABS: ALBUMIN 3.1 GM/DL (3.2-5.2); ALT/SGPT 23 U/L (12-78); BILIRUBIN,TOTAL 0.7 MG/DL (0.2-1.0); BLOOD UREA NITROGEN 20 MG/DL (7-18); CARBON DIOXIDE LEVEL 26 MEQ/L (21-32); CHLORIDE LEVEL 103 MEQ/L (98-107); CREATININE FOR GFR 0.71 MG/DL (0.70-1.30); GLOMERULAR FILTRATION RATE > 60.0 (>56); GLUCOSE, FASTING 173 MG/DL (70-100); MAGNESIUM LEVEL 1.9 MG/DL (1.8-2.4); POTASSIUM SERUM 4.3 MEQ/L (3.5-5.1); SODIUM LEVEL 136 MEQ/L (136-145); TOTAL PROTEIN 6.1 GM/DL (6.4-8.2)
[2019-11-13 08:00] VITALS: BP 158/91
[2019-11-13] MEDS: HumaLOG INSULIN (NovoLOG) PER UNIT SC SCH ×2 (08:29→12:47)
[2019-11-13 08:30] VITALS: BP 158/91
[2019-11-13] MEDS: CARVedilol 6.25 MG TAB PO SCH (08:30)
[2019-11-13] MEDS: K-PHOS NEUTRAL 250MG TABLET (SOD.PHOSPHATE/POT.PHOSPHATE) PO SCH (08:30)
[2019-11-13] MEDS: METAXALONE 800 MG TABLET PO SCH (08:30)
[2019-11-13] MEDS ORDERED: SIMVASTATIN 20 MG TAB PO SCH (09:00)
[2019-11-13] MEDS ORDERED: LISINOPRIL *2.5 MG* TAB PO SCH (09:00)
[2019-11-13] MEDS ORDERED: allopurinoL 100 MG TAB PO SCH (09:00)
[2019-11-13] MEDS ORDERED: ASPIRIN 325 MG TAB PO SCH (09:00)
[2019-11-13 12:00] VITALS: BP 142/80
--- NOTE | 2019-11-14 20:38 | ECGEPIP ---
[facility] - ED Test Date: 2019-11-12 Pat Name: IWONA VALDERRAMA Department: Room: [place] [address] Gender: Male [employer] Supervisor: [email or web address] : 1960 Requested By: Carie CASTRO Order Number: [id number] Reading MD: Freida Wayne Measurements Intervals [place] Rate: 95 P: 44 [place]: 172 QRS: -2 QRSD: 94 T: 28 QT: 344 QTc: 433 Interpretive Statements SINUS RHYTHM LOW QRS VOLTAGE IN PRECORDIAL LEADS PRWP NSTTW abnormalities DECREASED RATE 01/16/19 Electronically Signed on 11-14-2019 20:38:02 EDT by Freida Wayne
--- NOTE | 2019-11-15 23:17 | DS.PDOC ---
Discharge Summary General Date of Admission Nov 12, 2019 at 14:17 Date of Discharge 11/13/19 Discharge Summary PROCEDURES PERFORMED DURING STAY: None. ADMITTING DIAGNOSES: 1. Hyperosmolar hyperglycemic state. DISCHARGE DIAGNOSES: 1. Hyperosmolar hyperglycemic state. COMPLICATIONS/CHIEF COMPLAINT: Arturo;Htn;Hyperglycemia;Hyperlipidemia;Iddm. HISTORY OF PRESENT ILLNESS: 59-year-old male with past medical history of diabetes mellitus, hypertension and hyperlipidemia was admitted for hyperosmolar hyperglycemic state due to noncompliance with medication. Patient was feeling ill and did not take his medication for 24 hours and presented with significant hyperglycemia, did not meet criteria for DKA. Patient was treated with aggressive IV hydration and IV insulin with subsequent resolution of hyper glycemia. Patient was restarted on his home regimen with adequate blood sugar control. Patient was adequately rehydrated, tolerating diet in the morning, comfortable and clinically at baseline. Patient is clinically and hemodynamically for discharge and outpatient follow-up. HOSPITAL COURSE: As above. DISCHARGE MEDICATIONS: Please see below. ALLERGIES: Please see below. PHYSICAL EXAMINATION: VITAL SIGNS: Please see below. GENERAL:No distress HEENT:Normocephalic, atraumatic, dry mucous membrane NECK:Suppl CARDIOVASCULAR EXAMINATION:S1, S2, tachycardic, no murmur RESPIRATORY EXAMINATION:Clear to auscultation, no wheezing ABDOMINAL EXAMINATION:Soft, nontender, nondistended, positive bowel sound EXTREMITIES:Range of motion intact SKIN:No jared NEUROLOGICAL EXAMINATION:Alert and oriented 3, no focal deficit PSYCHIATRIC EXAMINATION:Calm and cooperative LABORATORY DATA: Please see below. PROGNOSIS: Fair ACTIVITY: As tolerated. DIET: Cardiac with consistent carbs DISCHARGE PLAN: Follow with PCP in 1-2 weeks DISPOSITION: 01 Home, Self-Care. DISCHARGE INSTRUCTIONS: 1. As above. DISCHARGE CONDITION: Stable. TIME SPENT ON DISCHARGE: Greater than 33 minutes. Vital Signs/I&Os Vital Signs Date Time Temp Pulse Resp B/P (MAP) Pulse Ox O2 Delivery O2 Flow Rate FiO2 11/13/19 12:00 98.0 91 18 142/80 (100) 96 Room Air Discharge Medications Scheduled Allopurinol (Allopurinol) 100 Mg Tab, 100 MG PO DAILY, (Reported) Aspirin (Aspirin) 325 Mg Tab, 325 MG PO DAILY, (Reported) Carvedilol (Carvedilol) 6.25 Mg Tablet, 6.25 MG PO BID, (Reported) Cholecalciferol (Vitamin D3) (Vitamin D3) 5,000 Unit Tab.rapdis, 5,000 UNIT PO DAILY, (Reported) Dulaglutide (Trulicity) 1.5 Mg/0.5 Ml Inj, 1.5 MG SC 1XWK, (Reported) TAKES ON MONDAYS Empagliflozin (Jardiance) 25 Mg Tab, 25 MG PO DAILY, (Reported) Fremanezumab-Vfrm (Ajovy) 225 Mg/1.5 Ml Syringe, 1.5 ML IM QMONTH, (Reported) Glyburide (Glyburide) 2.5 Mg Tab, 2.5 TAB PO AC, (Reported) Icosapent Ethyl (Vascepa) 1 Gm Capsule, 2 GM PO BID, (Reported) Insulin Aspart (Novolog Flexpen) 100 Unit/Ml Inj, 1 DOSE SC AC, (Reported) TAKES 32 UNITS PLUS SLIDING SCALE Insulin Glargine,Hum.rec.anlog (Lantus Solostar) 100 Unit/Ml Inj, 68 UNITS SC QHS, (Reported) Lisinopril (Lisinopril) 2.5 Mg Tab, 2.5 MG PO DAILY, (Reported) Magnesium Chloride (Slow-Mag) 1 Tab Tab, 1 TAB PO DAILY, (Reported) Metaxalone (Metaxalone) 800 Mg Tablet, 800 MG PO TID, (Reported) Metformin HCl (Metformin HCl ER) 500 Mg Tab.er.24h, 1,000 MG PO BID, (Reported) Nortriptyline HCl (Nortriptyline HCl) 75 Mg Capsule, 75 MG PO QHS, (Reported) Simvastatin (Zocor) 20 Mg Tab, 20 MG PO DAILY, (Reported) Scheduled PRN Divalproex Sodium (Divalproex Sodium ER) 250 Mg Tab.er.24h, 250 MG PO DAILY PRN for MIGRAINE, (Reported) Fluticasone Propionate (Flonase Allergy Relief) 9.9 Ml [place].susp, 2 SPRAYS NA DAILY PRN for NASAL CONGESTION, (Reported) Meclizine HCl (Meclizine HCl) 25 Mg Tablet, 25 MG PO Q8H PRN for DIZZINESS, (Reported) Ondansetron (Ondansetron Odt) 8 Mg Tab, 8 MG PO TID PRN for NAUSEA, (Reported) Allergies Coded Allergies: canagliflozin (Verified Allergy, Severe, ANAPHYLAXIS, 01/16/19) SHERITA REED MD Nov 15, 2019 23:17
== END 2019-11-13 15:50 | disposition home or self-care (01) ==
LOC: M ED 14:16 → M ED INP 14:17 → ENRESERVTM 19:09 → ENRESERVDT 19:09 → M PCU 20:26
PROVIDERS: ADMIT Internal Medicine; ATTEND Internal Medicine
DX: E11.00 Type 2 diabetes mellitus with hyperosmolarity without nonketotic hyperglycemic-hyperosmolar coma (NKHHC) (principal); Z91.14 Patient's other noncompliance with medication regimen; E87.5 Hyperkalemia; N17.9 Acute kidney failure, unspecified; R53.83 Other fatigue; R53.81 Other malaise; I12.9 Hypertensive chronic kidney disease with stage 1 through stage 4 chronic kidney disease, or unspecified chronic kidney disease; E78.5 Hyperlipidemia, unspecified; N18.3 Chronic kidney disease, stage 3 (moderate); H81.09 Meniere's disease, unspecified ear; Z79.899 Other long term (current) drug therapy; Z79.82 Long term (current) use of aspirin; Z79.4 Long term (current) use of insulin; Z88.8 Allergy status to other drugs, medicaments and biological substances
CPT/HCPCS: 36415; 71046; 80048; 80053; 80076; 81001; 82010; 82550; 82553; 82803; 83036; 83605; 83690; 83735; 83930; 84100; 84145; 84484; 85025; 85027; 85652; 86140; 93005; 93041; 96361; 96372; 96374; 96375; 96376; 97161; 99285; J1644; J2405

== ENCOUNTER 2020-05-05 06:58 | Emergency (ER) | payer BC, OTHER ==
[~2020-05-05] VITALS: Ht 180.3 cm; Wt 97.2 kg
[~2020-05-05 06:58] MED LIST changes: +AJOV225I IM; +DIVA250T7 PO; +FISH1000 PO; -LISI-672 PO; -LISI2.5T76 PO; +LISI2.5T8 PO; +LISI30TA4 PO; -METF-791 PO; +METF-838 PO; +NORT75CA2 PO; +VASC1CAP2 PO; +VITA500079 PO
[2020-05-05] MEDS ORDERED: TRES1INJ2 SC (07:19)
[2020-05-05] MEDS ORDERED: POTA10CA32 PO (07:20)
[2020-05-05] MEDS ORDERED: ACETAMINOPHEN 500 MG TAB PO ONE (07:45)
[2020-05-05] MEDS ORDERED: NS 500 ML IV ONE (07:45)
[2020-05-05 08:31] LABS: BASO # 0.1 10^3/uL (0.0-0.2); BASO % 0.7 % (0.0-1.0); EOS # 0.2 10^3/uL (0.0-0.5); HEMATOCRIT 44.8 % (42.0-52.0); HEMOGLOBIN 14.6 g/dl (13.5-17.5); LYMPH # 2.4 10^3/uL (1.5-5.0); LYMPH % 22.6 % (24.0-44.0); MEAN CORPUSCULAR HEMOGLOBIN 31.9 pg (27.0-33.0); MEAN CORPUSCULAR HGB CONC 32.6 g/dl (32.0-36.5); MONO # 0.6 10^3/uL (0.0-0.8); MONO % 5.4 % (0.0-5.0); NEUTROPHILS # 7.1 10^3/uL (1.5-8.5); NEUTROPHILS % 68.7 % (36.0-66.0); PLATELET COUNT, AUTOMATED 229 10^3/uL (150-450); RED BLOOD COUNT 4.57 10^6/uL (4.30-6.10); WHITE BLOOD COUNT 10.4 10^3/uL (4.0-10.0)
[2020-05-05 08:41] LABS: BLOOD UREA NITROGEN 34 MG/DL (7-18); CALCIUM LEVEL 9.3 MG/DL (8.5-10.1); CARBON DIOXIDE LEVEL 21 MEQ/L (21-32); CHLORIDE LEVEL 107 MEQ/L (98-107); CREATININE FOR GFR 1.07 MG/DL (0.70-1.30); GLOMERULAR FILTRATION RATE > 60.0 (>56); GLUCOSE, FASTING 189 MG/DL (70-100); MAGNESIUM LEVEL 2.2 MG/DL (1.8-2.4); POTASSIUM SERUM 4.8 MEQ/L (3.5-5.1); SODIUM LEVEL 138 MEQ/L (136-145)
[2020-05-05] MEDS ORDERED: ONDANSETRON 4MG/2ML VIAL IV ONE (08:45)
[2020-05-05] MEDS ORDERED: MORPHINE 4 MG/ML 1ML VIAL/SYRINGE (J2270) IV ONE (09:30)
[2020-05-05 10:59] VITALS: BP 161/82
[2020-05-05] MEDS ORDERED: REGL10TA6 PO (18:37)
== END 2020-05-05 11:00 | disposition home or self-care (01) ==
LOC: M ED 06:58
DX: G43.909 Migraine, unspecified, not intractable, without status migrainosus (principal); E86.0 Dehydration; E11.9 Type 2 diabetes mellitus without complications; I10 Essential (primary) hypertension; N18.3 Chronic kidney disease, stage 3 (moderate); H81.09 Meniere's disease, unspecified ear; E78.5 Hyperlipidemia, unspecified; Z79.4 Long term (current) use of insulin; Z79.899 Other long term (current) drug therapy; Z88.8 Allergy status to other drugs, medicaments and biological substances
CPT/HCPCS: 36415; 80048; 83735; 85025; 96361; 96374; 96375; 99284; J2270; J2405

== ENCOUNTER 2020-05-05 13:26 | Emergency (ER) | payer BC, OTHER ==
[~2020-05-05] VITALS: Ht 180.3 cm; Wt 96.5 kg
[~2020-05-05 13:26] MED LIST changes: +POTA10CA32 PO; +TRES1INJ2 SC
[2020-05-05] MEDS ORDERED: diphenhydrAMINE 50MG/ML VIAL (J1200) IV STA (16:17)
[2020-05-05] MEDS ORDERED: KETOROLAC 30 MG/ML 1ML VIAL IV ONE (16:30)
[2020-05-05] MEDS ORDERED: NS 1,000 ML IV ONE (16:30)
[2020-05-05] MEDS ORDERED: METOCLOPRAMIDE INJ 10MG/2ML VIAL (J2765 PER 1) IV ONE (16:30)
[2020-05-05 18:30] VITALS: BP 119/64
[2020-05-05] MEDS ORDERED: REGL10TA6 PO (18:37)
== END 2020-05-05 19:00 | disposition home or self-care (01) ==
LOC: M ED 13:26
DX: G43.909 Migraine, unspecified, not intractable, without status migrainosus (principal); I10 Essential (primary) hypertension; E11.9 Type 2 diabetes mellitus without complications; Z79.82 Long term (current) use of aspirin; Z79.4 Long term (current) use of insulin; Z79.899 Other long term (current) drug therapy; Z88.8 Allergy status to other drugs, medicaments and biological substances
CPT/HCPCS: 96361; 96374; 96375; 99284; J1200; J1885; J2765

== ENCOUNTER 2020-10-10 14:48 | Emergency (ER) | payer OTHER, BC ==
[~2020-10-10] VITALS: Ht 180.3 cm; Wt 101.6 kg
[~2020-10-10 14:48] MED LIST changes: +REGL10TA6 PO
--- OUTSIDE RECORDS SUMMARY | 2020-10-10 14:58 | CCD ---
Author Author Lacy Callahan DO Organization Lacy Callahan DO Address [address] [facility] [address] [place], [place] [id number] Care Team Providers Care Administrative Executive Name Role Phone Sindy POTTER MA, James M Unavailable Lacy Callahan DO Unavailable Pito Miller MD Unavailable Lacy Callahan DO PCP ENCOUNTERS Encounter Performer Loca tion Date Routine general medical examination at a health care facility [ICD10: Z00.00] Dr. Lacy Callahan DO 09-03-2020 Type II diabetes mellitus poorly control led [SNOMED-CT: 059143136] Dr. 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 Lacy Callahan DO 04-16-2020 Routine general medical examination at a health care facility [ICD10: Z00.00] Dr. Lacy Callahan DO 04-16-2020 Chronic back pain [SNOMED-CT: 303849652] Dr. Lacy Callahan DO 04-16-2020 Other hyperlipidemia [ICD10: E78.49] Dr. Lacy Callahan DO 04-16-2020 Increased stress [SNOMED-CT: 32958829] Dr. Layc Callahan DO 04-16-2020 Influenza-like illness [SNOMED-CT: 60879995] Dr. Lacy Callahan DO 11-21-2019 Type II diabetes mellitus poorly control led [SNOMED-CT: 990736617] Dr. Lacy Callahan DO 11-21-2019 Routine general medical examination at a health care facility [ICD10: Z00.00] Dr. Lacy Callahan, DO 06-06-2019 Dehydration [SNOMED-CT: 85780820] Dr Mac Callahan, DO 03-02-2019 Type II diabetes mellitus poorly control led [SNOMED-CT: 364522915] Dr. Lacy Callahan, DO 03-02-2019 Meniere syndrome [SNOMED-CT: 25023063] Dr. Lacy Callahan, DO 03-02-2019 DIABETES WITH RENAL MANIFESTATIONS TYPE II OR UNSPECIFIED TYPE UNCONTROLLED [SNOMED-CT: 729167148] Dr. Lacy Callahan, DO 02-07-2019 CHRONIC KIDNEY DISEASE STAGE III (MODERA TE) [SNOMED-CT: 454991980] Dr. Lacy Callahan, DO 02-07-2019 Sinus tachycardia [SNOMED-CT: 00912334] Milad Callahan, DO 02-07-2019 MALIGNANT ESSENTIAL HYPERTENSION [SNOMED-CT: 16890981] Milad Callahan, DO 02-07-2019 DIABETES WITH RENAL MANIFESTATIONS TYPE II OR UNSPECIFIED TYPE UNCONTROLLED [SNOMED-CT: 904137972] Dr. Lacy Callahan, DO 11-06-2018 CHRONIC KIDNEY DISEASE STAGE III (MODERA TE) [SNOMED-CT: 753606513] Dr. Lacy Callahan, DO 11-06-2018 MALIGNANT ESSENTIAL HYPERTENSION [SNOMED-CT: 44196100] Milad Callahan, DO 11-06-2018 Routine general medical examination at a health care facility [ICD10: Z00.00] Dr. Lacy Callahan, DO 06-02-2018 DIABETES WITH RENAL MANIFESTATIONS TYPE II OR UNSPECIFIED TYPE UNCONTROLLED [SNOMED-CT: 975356195] Dr. Lacy Callahan, DO 02-15-2018 CHRONIC KIDNEY DISEASE STAGE III (MODERA TE) [SNOMED-CT: 805580105] Dr. Lacy Callahan, DO 02-15-2018 MALIGNANT ESSENTIAL HYPERTENSION [SNOMED-CT: 95662377] Milad Callahan, DO 02-15-2018 Exogenous hyperlipidemia [SNOMED-CT: 761296232] Dr. Lacy Callahan, DO 02-15-2018 DIABETES WITH RENAL MANIFESTATIONS TYPE II OR UNSPECIFIED TYPE UNCONTROLLED [SNOMED-CT: 830983238] Dr. Lacy Callahan, DO 11-16-2017 CHRONIC KIDNEY DISEASE STAGE III (MODERA TE) [SNOMED-CT: 174511820] Dr. Lacy Callahan, DO 11-16-2017 MALIGNANT ESSENTIAL HYPERTENSION [SNOMED-CT: 25026766] Milad Callahan, DO 11-16-2017 Sinus tachycardia [SNOMED-CT: 75925797] Milad Callahan, DO 11-16-2017 DIABETES WITH RENAL MANIFESTATIONS TYPE II OR UNSPECIFIED TYPE UNCONTROLLED [SNOMED-CT: 947356229] Dr. Lacy Callahan, DO 09-09-2017 CHRONIC KIDNEY DISEASE STAGE III (MODERA TE) [SNOMED-CT: 916429054] Dr. Lacy Callahan, DO 09-09-2017 Acute exacerbation of chronic asthmatic bronchitis [SNOMED-CT: 472378454] Dr. Lacy Callahan, DO 09-09-2017 Routine general medical examination at a health care facility [ICD10: Z00.00] Milad Callahan, DO 05-27-2017 DIABETES WITH RENAL MANIFESTATIONS TYPE II OR UNSPECIFIED TYPE UNCONTROLLED [SNOMED-CT: 025271419] Dr. Lacy Callahan, DO 01-28-2017 DIABETES WITH RENAL MANIFESTATIONS TYPE II OR UNSPECIFIED TYPE UNCONTROLLED [SNOMED-CT: 999225810] Dr. Lacy Callahan, DO 10-27-2016 CHRONIC KIDNEY DISEASE STAGE III (MODERA TE) [SNOMED-CT: 411963404] Dr. Lacy Callahan, DO 10-27-2016 DIABETES WITH RENAL MANIFESTATIONS TYPE II OR UNSPECIFIED TYPE UNCONTROLLED [SNOMED-CT: 127707409] Dr. Lacy Callahan, DO 07-26-2016 DIABETES WITH RENAL MANIFESTATIONS TYPE II OR UNSPECIFIED TYPE UNCONTROLLED [SNOMED-CT: 575361243] Dr. Lacy Callahan, DO 06-21-2016 Routine general medical examination at a health care facility [ICD10: Z00.00] Milad Callahan, DO 03-19-2016 DIABETES WITH RENAL MANIFESTATIONS TYPE II OR UNSPECIFIED TYPE UNCONTROLLED [SNOMED-CT: 624471553] Dr. Lacy Callahan, DO 12-19-2015 MALIGNANT ESSENTIAL HYPERTENSION [SNOMED-CT: 01239100] Milad Callahan, DO 12-19-2015 CHRONIC KIDNEY DISEASE STAGE III (MODERA TE) [SNOMED-CT: 564578350] Dr. Lacy Callahan, DO 12-19-2015 Sinus tachycardia [SNOMED-CT: 48781271] Milad Callahan, DO 12-19-2015 DIABETES WITH RENAL MANIFESTATIONS TYPE II OR UNSPECIFIED TYPE UNCONTROLLED [SNOMED-CT: 685701141] Dr. Lacy Callahan, DO 09-15-2015 Sinus tachycardia [SNOMED-CT: 06210364] Milad Callahan, DO 09-15-2015 MALIGNANT ESSENTIAL HYPERTENSION [SNOMED-CT: 02580873] Milad Callahan, DO 09-15-2015 DIABETES WITH RENAL MANIFESTATIONS TYPE II OR UNSPECIFIED TYPE UNCONTROLLED [SNOMED-CT: 607291434] Dr. Lacy Callahan, DO 06-13-2015 DIABETES WITH NEUROLOGICAL MANIFESTATION S TYPE II OR UNSPECIFIED TYPE UNCONTROLLED [SNOMED-CT: 962480697] Dr. Lacy Callahan, DO 06-13-2015 CHRONIC PANCREATITIS [SNOMED-CT: 604665680] Dr. Lacy Callahan, DO 06-13-2015 MALIGNANT ESSENTIAL HYPERTENSION [SNOMED-CT: 68106211] Milad Callahan, DO 06-13-2015 Baseline tachycardia [SNOMED-CT: 440501835] Dr. Lacy Callahan, DO 06-13-2015 Other specified vaccination [ICD10: Z23] Milad Callahan, DO 06-13-2015 DIABETES WITH RENAL MANIFESTATIONS TYPE II OR UNSPECIFIED TYPE UNCONTROLLED [SNOMED-CT: 256374193] Dr. Lacy Callahan, DO 03-14-2015 CHRONIC KIDNEY DISEASE STAGE III (MODERA TE) [SNOMED-CT: 283769975] Dr. Lacy Callahan, DO 03-14-2015 CHRONIC PANCREATITIS [SNOMED-CT: 459063822] Dr. Lacy Callahan, DO 03-14-2015 DIABETES WITH RENAL MANIFESTATIONS TYPE II OR UNSPECIFIED TYPE UNCONTROLLED [SNOMED-CT: 190990939] Dr. Lacy Callahan, DO 12-09-2014 CHRONIC KIDNEY DISEASE STAGE III (MODERA TE) [SNOMED-CT: 472461247] Dr. Lacy Callahan, DO 12-09-2014 DIABETES WITH RENAL MANIFESTATIONS TYPE II OR UNSPECIFIED TYPE UNCONTROLLED [SNOMED-CT: 837859946] Dr. Lacy Callahan, DO 09-11-2014 CHRONIC KIDNEY DISEASE STAGE I [SNOMED-CT: 674761702] Dr. Lacy Callahan, DO 09-11-2014 CHRONIC PANCREATITIS [SNOMED-CT: 022469025] Dr. Lacy Callahan, DO 09-11-2014 DIABETES WITH RENAL MANIFESTATIONS TYPE II OR UNSPECIFIED TYPE UNCONTROLLED [SNOMED-CT: 139555228] Dr. Lacy Callahan, DO 06-21-2014 CHRONIC KIDNEY DISEASE STAGE III (MODERA TE) [SNOMED-CT: 012321965] Dr. Lacy Callahan, DO 06-21-2014 CHRONIC PANCREATITIS [SNOMED-CT: 984649704] Dr. Lacy Callahan, DO 06-21-2014 DIABETES WITH RENAL MANIFESTATIONS TYPE II OR UNSPECIFIED TYPE UNCONTROLLED [SNOMED-CT: 016218296] Dr. Lacy Callahan, DO 06-03-2014 CHRONIC KIDNEY DISEASE STAGE III (MODERA TE) [SNOMED-CT: 132137562] Dr. Lacy Callahan, DO 06-03-2014 MENIERE'S DISEASE UNSPECIFIED [SNOMED-CT: 63640169] Dr. 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 Lacy Callahan, DO 04-29-2014 MENIERE'S DISEASE UNSPECIFIED [SNOMED-CT: 54125036] Dr. Lacy Callahan, DO 04-29-2014 MALIGNANT ESSENTIAL HYPERTENSION [SNOMED-CT: 98594496] Milad Callahan, DO 04-29-2014 DIABETES MELLITUS WITHOUT MENTION OF COM PLICATION TYPE II OR UNSPECIFIED TYPE UNCONTROLLED [SNOMED-CT: 723418526] Dr. Lacy Callahan, DO 04-01-2014 MENIERE'S DISEASE UNSPECIFIED [SNOMED-CT: 63566576] Dr. Lacy Callahan, DO 04-01-2014 CHRONIC KIDNEY DISEASE STAGE I [SNOMED-CT: 190205916] Dr. Lacy Callahan, DO 04-01-2014 Sinus tachycardia [SNOMED-CT: 37185231] Milad Callahan, DO 03-18-2014 DIABETES MELLITUS WITHOUT MENTION OF COM PLICATION TYPE II OR UNSPECIFIED TYPE UNCONTROLLED [SNOMED-CT: 906025084] Dr. Lacy Callahan, DO 03-04-2014 CHRONIC PANCREATITIS [SNOMED-CT: 645931780] Dr. Lacy Callahan, DO 03-04-2014 CHRONIC KIDNEY DISEASE STAGE I [SNOMED-CT: 044355962] Dr. Lacy Callahan, DO 03-04-2014 MENIERE'S DISEASE UNSPECIFIED [SNOMED-CT: 59110215] Dr. Lacy Callahan, DO 03-04-2014 MENIERE'S DISEASE UNSPECIFIED [SNOMED-CT: 81392831] Dr. Lacy Callahan, DO 02-15-2014 CHRONIC PANCREATITIS [SNOMED-CT: 495084907] Dr. Lacy Callahan, DO 02-15-2014 CHRONIC KIDNEY DISEASE STAGE III (MODERA TE) [SNOMED-CT: 724581938] Dr. Lacy Callahan, DO 02-15-2014 DIABETES WITH NEUROLOGICAL MANIFESTATION S TYPE II OR UNSPECIFIED TYPE UNCONTROLLED [SNOMED-CT: 415390869] Dr. Lacy Callahan, DO 02-04-2014 MENIERE'S DISEASE UNSPECIFIED [SNOMED-CT: 38478945] Dr. Lacy Callahan, DO 02-04-2014 MALIGNANT ESSENTIAL HYPERTENSION [SNOMED-CT: 58408237] iMlad Callahan, DO 02-04-2014 DIZZINESS AND GIDDINESS [SNOMED-CT: 201320181] Dr. Lacy Callahan, DO 02-04-2014 DIABETES WITH NEUROLOGICAL MANIFESTATION S TYPE II OR UNSPECIFIED TYPE UNCONTROLLED [SNOMED-CT: 950091701] Dr. 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 Lacy Callahan, DO 12-17-2013 BENIGN PAROXYSMAL POSITIONAL VERTIGO [SNOMED-CT: 23164 1001] Dr. Lacy Callahan, DO 12-17-2013 MALIGNANT ESSENTIAL HYPERTENSION [SNOMED-CT: 35859730] Milad Callahan, DO 12-17-2013 DIZZINESS AND GIDDINESS [SNOMED-CT: 395271166] Dr. Lacy Callahan, DO 12-17-2013 UNSPECIFIED VIRAL INFECTION [SNOMED-CT: 902144440] Milad Callahan, DO 11-21-2013 DIABETES MELLITUS WITHOUT MENTION OF COM PLICATION TYPE II OR UNSPECIFIED TYPE UNCONTROLLED [SNOMED-CT: 795550948] Dr. Lacy Callahan, DO 11-21-2013 BENIGN PAROXYSMAL POSITIONAL VERTIGO [SNOMED-CT: 45810 1001] Dr. 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 Lacy Callahan, DO 10-31-2013 DIABETES MELLITUS WITHOUT MENTION OF COM PLICATION TYPE II OR UNSPECIFIED TYPE UNCONTROLLED [SNOMED-CT: 596624241] Dr. Lacy Callahan, DO 10-31-2013 CHRONIC KIDNEY DISEASE STAGE I [SNOMED-CT: 638286046] Dr. Lacy Callahan, DO 10-31-2013 MALIGNANT ESSENTIAL HYPERTENSION [SNOMED-CT: 60592690] Milad Callahan, DO 10-31-2013 MALIGNANT ESSENTIAL HYPERTENSION [SNOMED-CT: 93958880] Milad Callahan, DO 08-01-2013 DIABETES MELLITUS WITHOUT MENTION OF COM PLICATION TYPE II OR UNSPECIFIED TYPE UNCONTROLLED [SNOMED-CT: 952316567] Dr. 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 Lacy Callahan, DO 04-13-2013 CHRONIC PANCREATITIS [SNOMED-CT: 484122661] Dr. Lacy Callahan, DO 03-23-2013 DIABETES MELLITUS WITHOUT MENTION OF COM PLICATION TYPE II OR UNSPECIFIED TYPE UNCONTROLLED [SNOMED-CT: 694555138] Dr. Lacy Callahan, DO 03-23-2013 MALIGNANT ESSENTIAL HYPERTENSION [SNOMED-CT: 45621685] Milad Callahan, DO 03-02-2013 DIABETES MELLITUS WITHOUT MENTION OF COM PLICATION TYPE II OR UNSPECIFIED TYPE UNCONTROLLED [SNOMED-CT: 923216255] Dr. Lacy Callahan, DO 03-02-2013 CHRONIC PANCREATITIS [SNOMED-CT: 269290920] Dr. Lacy Callahan, DO 03-02-2013 DIABETES MELLITUS WITHOUT MENTION OF COM PLICATION TYPE II OR UNSPECIFIED TYPE UNCONTROLLED [SNOMED-CT: 065181765] Dr. Lacy Callahan, DO 02-02-2013 MALIGNANT ESSENTIAL HYPERTENSION [SNOMED-CT: 64302302] Milad Callahan, DO 02-02-2013 CHRONIC KIDNEY DISEASE STAGE I [SNOMED-CT: 903987312] Dr. Lacy Callahan, DO 02-02-2013 DIABETES MELLITUS WITHOUT MENTION OF COM PLICATION TYPE II OR UNSPECIFIED TYPE UNCONTROLLED [SNOMED-CT: 000942553] Dr. Lacy Callahan, DO 10-30-2012 MALIGNANT ESSENTIAL HYPERTENSION [SNOMED-CT: 85089681] Milad Callahan, DO 10-30-2012 CHRONIC KIDNEY DISEASE STAGE I [SNOMED-CT: 997682251] Dr. Lacy Callahan, DO 10-30-2012 DIABETES MELLITUS WITHOUT MENTION OF COM PLICATION TYPE II OR UNSPECIFIED TYPE UNCONTROLLED [SNOMED-CT: 072177547] Dr. Lacy Callahan, DO 07-31-2012 MALIGNANT ESSENTIAL HYPERTENSION [SNOMED-CT: 18862088] Milad Callahan, DO 07-31-2012 DIABETES MELLITUS WITHOUT MENTION OF COM PLICATION TYPE II OR UNSPECIFIED TYPE UNCONTROLLED [SNOMED-CT: 795542274] Dr. Lacy Callahan, DO 04-28-2012 CHRONIC KIDNEY DISEASE STAGE I [SNOMED-CT: 953154335] Dr. Lacy Callahan, DO 04-28-2012 MALIGNANT ESSENTIAL HYPERTENSION [SNOMED-CT: 67128969] Milad Callahan, DO 04-28-2012 OTHER ACUTE SINUSITIS [SNOMED-CT: 450274182] Dr. Lacy Callahan, DO 04-28-2012 Other specified vaccination [ICD10: Z23] Milad Callahan, DO 04-28-2012 MALIGNANT ESSENTIAL HYPERTENSION [SNOMED-CT: 77931039] Milad Callahan, DO 01-28-2012 DIABETES MELLITUS WITHOUT MENTION OF COM PLICATION TYPE II OR UNSPECIFIED TYPE UNCONTROLLED [SNOMED-CT: 854148788] Dr. Lacy Callahan, DO 01-28-2012 CHRONIC KIDNEY DISEASE STAGE I [SNOMED-CT: 162584807] Dr. Lacy Callahan, DO 01-28-2012 DIABETES MELLITUS WITHOUT MENTION OF COM PLICATION TYPE II OR UNSPECIFIED TYPE UNCONTROLLED [SNOMED-CT: 418632402] Dr. Lacy Callahan, DO 11-01-2011 MALIGNANT ESSENTIAL HYPERTENSION [SNOMED-CT: 01058348] Milad Callahan, DO 11-01-2011 UNSPECIFIED VIRAL INFECTION [SNOMED-CT: 141511901] Milad Callahan, DO 11-01-2011 ACUTE BRONCHITIS [SNOMED-CT: 92509096] Milad Callahan, DO 11-01-2011 DIABETES MELLITUS WITHOUT MENTION OF COM PLICATION TYPE II OR UNSPECIFIED TYPE UNCONTROLLED [SNOMED-CT: 125061973] Dr. Lacy Callahan, DO 10-13-2011 MALIGNANT ESSENTIAL HYPERTENSION [SNOMED-CT: 37968173] Milad Callahan, DO 10-13-2011 UNSPECIFIED VIRAL INFECTION [SNOMED-CT: 593495214] Milad Callahan, DO 10-13-2011 ACUTE BRONCHITIS [SNOMED-CT: 22495158] Milad Callahan, DO 10-13-2011 DIABETES MELLITUS WITHOUT MENTION OF COM PLICATION TYPE II OR UNSPECIFIED TYPE UNCONTROLLED [SNOMED-CT: 754673878] Dr. Lacy Callahan, DO 08-13-2011 MALIGNANT ESSENTIAL HYPERTENSION [SNOMED-CT: 19939174] Milad Callahan, DO 08-13-2011 Other specified vaccination [ICD10: Z23] Milad Callahan, DO 08-13-2011 DIABETES MELLITUS WITHOUT MENTION OF COM PLICATION TYPE II OR UNSPECIFIED TYPE UNCONTROLLED [SNOMED-CT: 541928705] Dr. Lacy Callahan, DO 05-12-2011 MALIGNANT ESSENTIAL HYPERTENSION [SNOMED-CT: 65967214] Milad Callahan, DO 05-12-2011 DIABETES MELLITUS WITHOUT MENTION OF COM PLICATION [SNOMED-CT: 411805280] N/A N/A 03-17-2011 UNSPECIFIED CHEST PAIN [SNOMED-CT: 10181042] Milad Callahan, DO 10-21-2010 GENERALIZED HYPERHIDROSIS [SNOMED-CT: 045491958] Milad Callahan, DO 10-21-2010 MALIGNANT ESSENTIAL HYPERTENSION [SNOMED-CT: 61125923] Milad Callahan, DO 10-21-2010 Sinus tachycardia [SNOMED-CT: 50458667] Milad Callahan, DO 10-21-2010 DIABETES MELLITUS WITHOUT MENTION OF COM PLICATION TYPE II OR UNSPECIFIED TYPE UNCONTROLLED [SNOMED-CT: 352052697] Dr. Lacy Callahan, DO 10-21-2010 UNSPECIFIED CHEST PAIN [SNOMED-CT: 25396559] Milad Callahan, DO 10-05-2010 GENERALIZED HYPERHIDROSIS [SNOMED-CT: 091298121] Milad Callahan, DO 10-05-2010 MALIGNANT ESSENTIAL HYPERTENSION [SNOMED-CT: 72405406] Milad Callahan, DO 10-05-2010 Sinus tachycardia [SNOMED-CT: 75040316] Milad Callahan, DO 10-05-2010 DIABETES MELLITUS WITHOUT MENTION OF COM PLICATION TYPE II OR UNSPECIFIED TYPE UNCONTROLLED [SNOMED-CT: 816921180] Dr. Lacy Callahan, DO 10-05-2010 DIABETES MELLITUS WITHOUT MENTION OF COM PLICATION TYPE II OR UNSPECIFIED TYPE UNCONTROLLED [SNOMED-CT: 313486550] Dr. Lacy Callahan, DO 06-24-2010 UNSPECIFIED IDIOPATHIC PERIPHERAL NEUROP ATHY [SNOMED-CT: 589520346] Milad Callahan, DO 06-24-2010 MALIGNANT ESSENTIAL HYPERTENSION [SNOMED-CT: 96258933] Milad Callahan, DO 06-24-2010 PERSONAL HISTORY OF NONCOMPLIANCE WITH M EDICAL JOSH [SNOMED-CT: 947861683] Milad Callahan, DO 06-24-2010 DIABETES MELLITUS WITHOUT MENTION OF COM PLICATION TYPE II OR UNSPECIFIED TYPE UNCONTROLLED [SNOMED-CT: 801934327] Dr. Lacy Callahan, DO 04-17-2010 UNSPECIFIED IDIOPATHIC PERIPHERAL NEUROP ATHY [SNOMED-CT: 089913776] Milad Callahan, DO 04-17-2010 MALIGNANT ESSENTIAL HYPERTENSION [SNOMED-CT: 48433452] Milad Callahan, DO 04-17-2010 PERSONAL HISTORY OF NONCOMPLIANCE WITH M EDICAL JOSH [SNOMED-CT: 668184226] Milad Callahan, DO 04-17-2010 DIABETES MELLITUS WITHOUT MENTION OF COM PLICATION TYPE II OR UNSPECIFIED TYPE UNCONTROLLED [SNOMED-CT: 385868402] Dr. Lcay Callahan, DO 01-16-2010 UNSPECIFIED IDIOPATHIC PERIPHERAL NEUROP ATHY [SNOMED-CT: 192541116] Milad Callahan, DO 01-16-2010 MALIGNANT ESSENTIAL HYPERTENSION [SNOMED-CT: 20447801] Milad Callahan, DO 01-16-2010 PERSONAL HISTORY OF NONCOMPLIANCE WITH M EDICAL JOSH [SNOMED-CT: 625697373] Milad Callahan, DO 01-16-2010 DIABETES MELLITUS WITHOUT MENTION OF COM PLICATION TYPE II OR UNSPECIFIED TYPE UNCONTROLLED [SNOMED-CT: 720199524] Dr. Lacy Callahan, DO 12-03-2009 UNSPECIFIED IDIOPATHIC PERIPHERAL NEUROP ATHY [SNOMED-CT: 900846931] Milad Callahan, DO 12-03-2009 MALIGNANT ESSENTIAL HYPERTENSION [SNOMED-CT: 23337525] Milad Callahan, DO 12-03-2009 PERSONAL HISTORY OF NONCOMPLIANCE WITH M EDICAL JOSH [SNOMED-CT: 279498992] Milad Callahan, DO 12-03-2009 DIABETES MELLITUS WITHOUT MENTION OF COM PLICATION TYPE II OR UNSPECIFIED TYPE UNCONTROLLED [SNOMED-CT: 450947162] Dr. Lacy Callahan, DO 11-24-2009 UNSPECIFIED IDIOPATHIC PERIPHERAL NEUROP ATHY [SNOMED-CT: 157528614] Milad Callahan, DO 11-24-2009 MALIGNANT ESSENTIAL HYPERTENSION [SNOMED-CT: 17941586] Milad Callahan, DO 11-24-2009 PERSONAL HISTORY OF NONCOMPLIANCE WITH M EDICAL JOSH [SNOMED-CT: 095070870] Milad Callahan, DO 11-24-2009 DIABETES MELLITUS WITHOUT MENTION OF COM PLICATION TYPE II OR UNSPECIFIED TYPE UNCONTROLLED [SNOMED-CT: 018777964] Dr. Lacy Callahan, DO 10-17-2009 UNSPECIFIED IDIOPATHIC PERIPHERAL NEUROP ATHY [SNOMED-CT: 244638626] Milad Callahan, DO 10-17-2009 MALIGNANT ESSENTIAL HYPERTENSION [SNOMED-CT: 74688338] Milad Callahan, DO 10-17-2009 PERSONAL HISTORY OF NONCOMPLIANCE WITH M EDICAL JOSH [SNOMED-CT: 523239219] Milad Callhaan, DO 10-17-2009 DIABETES MELLITUS WITHOUT MENTION OF COM PLICATION [SNOMED-CT: 853963941] N/A N/A 11-27-2008 RENAL FAILURE UNSPECIFIED [SNOMED-CT: 58588794] N/A N/A 11-27-2008 MALIGNANT ESSENTIAL HYPERTENSION [SNOMED-CT: 18537180] Milad Callahan, DO 11-27-2008 ALLERGIES AND ADVERSE REACTIONS Substance Reaction Sever ity Status Invokana (RxNorm: Unknown) pt report s being hospitalized for acute kidney failure from invokana. -- Active No Known Drug Allergies (RxNorm: Unknown) -- -- Inactive FUNCTIONAL STATUS There is no cognitive and functional status saved for this patient. IMMUNIZATIONS Vaccine Date Status Influenza, unknown (141) 09/03/2020 8:48:40 AM Completed Pneumovax 23 (33) 09/07/2019 8:31:34 AM Completed Fluzone High Dose (135) 09/07/2019 8:30:50 A M Completed Prevnar 13 (133) 07/26/2018 1:34:54 PM Completed Flucelvax Quadrivalent (186) 018 1:34:19 PM Completed Pneumovax 23 (33) 07/18/2017 8:30:55 AM Completed Afluria (141) 07/18/2017 8:30:34 AM Completed Prevnar 13 (133) 06/28/2016 10:28:48 AM Completed Fluvirin (141) 06/28/2016 10:28:04 AM Completed Afluria (141) 06/13/2015 3:15:02 PM Completed Afluria (141) 06/03/2014 8:46:01 AM Completed Afluria (141) 05/16/2013 4:40:27 PM Completed Fluzone (141) 04/28/2012 10:03:51 AM Completed FluLaval (141) 08/13/2011 9:26:08 AM Completed MEDICAL EQUIPMENT Patient has no history of implanted devices. MEDICATIONS Medication Generic Name Instructions Dosage Start Date Status Tresiba FlexTouch 100 units/mL subcutaneous solution insulin degludec 64 units ???in place of lantus 0 09/03/2020 Active Ajovy Autoinjector 225 mg/1.5 mL subcutaneous solution fremanezumab monthy 1.5 09/03/2020 Active Skelaxin 800 mg oral tablet, [RxNorm: 288962] metaxalone one po tid prn back pain 270 09/03/2020 Active simvastatin 40 mg oral tablet, [RxNorm: 171676] simvastatin one po daily 90 09/03/20 20 Active metFORMIN 1000 mg oral tablet, [RxNorm: 832143] metFORMIN one po pc largest meals bid 180 09/03/2020 Active lisinopril 2.5 mg oral tablet, [RxNorm: 192673] lisinopril one po daily 90 09/03/20 20 Active glyBURIDE 2.5 mg oral tablet, [RxNorm: 972590] glyBURIDE one po qam and two po qpm 270 09/03/2020 Active carvedilol 6.25 mg oral tablet, [RxNorm: 735543] carvedilol one po bid 180 0 Active NovoLOG FlexPen 100 units/mL injectable solution, [RxNorm: 204424] insulin aspart use as directed 32 un its qid with meals 6 06/06/2019 Active Fish oil Unknown 0 06/06/2019 Active Slow Mag Unknown 0 11/06/2018 Active Lantus Solostar Pen 100 units/mL subcuta neous solution, [RxNorm: 063229] insulin glargine 70 units sq at hs 15 06/02/2018 Active Jardiance 25 mg oral tablet empagliflozin one po daily 0 12/09/2014 Active nortriptyline 75 mg oral capsule, [RxNorm: 273773] nortriptyline one po hs daily 0 06/03/2014 Active ASA 325mg Unknown daily 0 04/01/2014 Active Vitamin D 5000 Unknown o ne daily 0 04/01/2014 Active Flonase 50 mcg/inh nasal spray fluti casone nasal two sprays each nostril once daily 1 11/21/2013 Active BD Pen Needle Mini U/F Unknown as directed 100 10/31/2013 Active INSURANCE PROVIDERS Payer Name Policy Type P olicy ID Covered Constitution Party ID Policy [employer] [facility]S Health Insurance [id number] [employer]DERRAMA ASSESSMENTS # Routine general medical examination at a health care facility (Z00.00): # Other hyperlipidemia# Type II diabetes mellitus poorly controlled# CHRONIC KIDNEY DISEASE STAGE III (MODERATE)# UNSPECIFIED ESSENTIAL HYPERTENSION# Tachycardia PROBLEMS Problem Problem Status D ate Started Date Resolved Date Inactivated UNSPECIFIED CHEST PAIN [SNOMED-CT: 73797512] Active 10-05-2010 NA NA GENERALIZED HYPERHIDROSIS [SNOMED-CT: 599994857] Active 10-05-2010 NA NA MALIGNANT ESSENTIAL HYPERTENSION [SNOMED-CT: 64217338] Inactive 10-05-2010 NA 10-31-2013 TACHYCARDIA UNSPECIFIED [SNOMED-CT: 4372621] Active 10-05-2010 NA NA DIABETES MELLITUS WITHOUT MENTION OF COM PLICATION TYPE II OR UNSPECIFIED TYPE UNCONTROLLED [SNOMED-CT: 923762374] Active 03-04-2014 NA NA MENIERE'S DISEASE UNSPECIFIED [SNOMED-CT: 20007656] Active 03-04-2014 NA NA Other hyperlipidemia [ICD10: E78.49] Activ e 02-07-2019 NA NA Routine general medical examination at a health care facility [ICD10: Z00.00] Active 03-19-2016 NA NA Acute exacerbation of chronic asthmatic bronchitis [SNOMED-CT: 929651699] Active 05-27-2017 NA NA CHRONIC BRONCHITIS [SNOMED-CT: 291483786] Active 03-02-2013 NA NA DIABETES MELLITUS WITHOUT MENTION OF COM PLICATION [SNOMED-CT: 056096596] Active 11-27-2008 NA NA RENAL FAILURE UNSPECIFIED [SNOMED-CT: 63094562] Active 11-27-2008 NA NA OSTEOARTHROSIS UNSPECIFIED WHETHER GENER ALIZED OR [SNOMED-CT: 547376046] Active 11-27-2008 NA NA UNSPECIFIED ESSENTIAL HYPERTENSION [SNOMED-CT: 8759110 0] Active 11-27-2008 NA NA DIABETES WITH RENAL MANIFESTATIONS TYPE II OR UNSPECIFIED TYPE UNCONTROLLED [SNOMED-CT: 135454693] Active 06-03-2014 NA NA DIABETES MELLITUS WITHOUT MENTION OF COM PLICATION [SNOMED-CT: 972539686] Active 10-17-2009 NA NA UNSPECIFIED IDIOPATHIC PERIPHERAL NEUROP ATHY [SNOMED-CT: 771031991] Active 10-17-2009 NA NA UNSPECIFIED ESSENTIAL HYPERTENSION [SNOMED-CT: 1170003 0] Active 10-17-2009 NA NA OTHER AND UNSPECIFIED HYPERLIPIDEMIA [SNOMED-CT: 23000 4004] Active 10-17-2009 NA NA PERSONAL HISTORY OF NONCOMPLIANCE WITH M EDICAL JOSH [SNOMED-CT: 791020175] Active 10-17-2009 NA NA BENIGN PAROXYSMAL POSITIONAL VERTIGO [SNOMED-CT: 64354 1001] Active 11-21-2013 NA NA DIABETES WITH NEUROLOGICAL MANIFESTATION S TYPE II OR UNSPECIFIED TYPE UNCONTROLLED [SNOMED-CT: 711580572] Active 12-17-2013 NA NA DIZZINESS AND GIDDINESS [SNOMED-CT: 380906901] Active 12-17-2013 NA NA MYALGIA AND MYOSITIS UNSPECIFIED [SNOMED-CT: 356037041 ] Active 03-17-2011 NA NA 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] Active 04-16-2020 NA NA Other hyperlipidemia [ICD10: E78.49] Activ e 04-16-2020 NA NA Increased stress [SNOMED-CT: 44640788] Active 04-16-2020 NA NA 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 [SNOMED-CT: 55268413] Active 08-01-2013 NA NA Hypertension [SNOMED-CT: 93888986] Active 06-06-2019 NA NA Diverticulosis [SNOMED-CT: 638070154] Active 06-06-2019 NA NA Polyp colon [SNOMED-CT: 52364868] Active 06-06-2019 NA NA ACTIVE MENIERE'S DISEASE COCHLEOVESTIBUL AR [SNOMED-CT: 942847568] Active 02-04-2014 NA NA DIABETES WITH KETOACIDOSIS TYPE II OR UN SPECIFIED TYPE UNCONTROLLED [SNOMED-CT: 816565045] Active 02-15-2014 NA NA CHRONIC KIDNEY DISEASE STAGE III (MODERA TE) [SNOMED-CT: 336132498] Active 02-15-2014 NA NA Sinus tachycardia [SNOMED-CT: 79686489] Active 12-19-2015 NA NA Exogenous hyperlipidemia [SNOMED-CT: 779866016] Active 02-15-2018 NA NA Baseline tachycardia [SNOMED-CT: 100464274] Active 06-13-2015 NA NA Tachycardia [SNOMED-CT: 8469415] Active 09-03-2020 NA NA CHRONIC KIDNEY DISEASE STAGE I [SNOMED-CT: 560193698] Active 01-28-2012 NA NA Dehydration [SNOMED-CT: 85589409] Active 03-02-2019 NA NA Type II diabetes mellitus poorly control led [SNOMED-CT: 311361661] Active 03-02-2019 NA NA Meniere syndrome [SNOMED-CT: 32929245] Active 03-02-2019 NA NA CHRONIC PANCREATITIS [SNOMED-CT: 933140160] Active 03-02-2013 NA NA NEED FOR PROPHYLACTIC VACCINATION AND IN OCULATION AGAINST INFLUENZA [SNOMED-CT: 363486976] Active 08-13-2011 NA NA ABDOMINAL PAIN UNSPECIFIED SITE [SNOMED-CT: 34334984] Active 04-20-2013 NA NA NONSPECIFIC (ABNORMAL) FINDINGS ON RADIO LOGICAL AND OTHER EXAMINATION OF ABDOMINAL AREA INCLUDING RETROPERITONEUM [SNOMED-CT: 948624451] Active 05-16-2013 NA NA Routine general medical examination at a health care facility [ICD10: Z00.00] Active 06-02-2018 NA NA OTHER ACUTE SINUSITIS [SNOMED-CT: 022062795] Active 04-28-2012 NA NA INFLUENZA [SNOMED-CT: 334524624] Active 10-31-2013 NA NA UNSPECIFIED VIRAL INFECTION [SNOMED-CT: 540073300] Active 10-13-2011 NA NA ACUTE BRONCHITIS [SNOMED-CT: 35801489] Active 10-13-2011 NA NA Standard chest X-ray abnormal [SNOMED-CT: 336020630] Active 07-28-2015 NA NA Chronic back pain [SNOMED-CT: 275924818] Active 03-19-2016 NA NA Other specified vaccination [ICD10: Z23] Active 06-13-2015 NA NA Influenza-like illness [SNOMED-CT: 75054757] Active 11-21-2019 NA NA PROCEDURES Procedure Date CPT Code Procedure 09/03/2020 08:28:39 34386 Periodic comprehensive preventive medicine reevaluation and management of an individual including an age and gender appropriate history, examination, counseling/anticipatory guidance/risk factor reduction interventions, and the ordering of laboratory/diagnostic procedures, established patient; 40-64 years 09/03/2020 08:28:39 [id number] Eligible clinician attests to documenting in the medical record they obtained, updated, or reviewed the patient's current medications 09/03/2020 08:28:39 1036F Current tobacco non-user (CAD, CAP, COPD, PV) (DM) (IBD) 09/03/2020 08:28:39 75295 Hemoglobin; glycosylated (A1C) by device cleared by FDA for home use 09/03/2020 08:28:39 3046F Most recent hemoglobin A1c level greater than 9.0% (DM) 09/03/2020 08:28:39 2022F Dilated retinal eye exam with interpretation by an press operator heavy duty or air operations manager documented and reviewed (DM) 04/22/2020 12:52:30 3046F Most recent hemoglobin A1c level greater than 9.0% (DM) 04/16/2020 09:52:11 44724 Telephone evaluation and management service by a physician or other qualified health healthcare technician who may report evaluation and management services provided to an established patient, parent, or guardian not originating from a related E/M service provided within the previous 7 days nor leading to an E/M service or procedure within the next 24 hours or soonest available appointment; 11-20 minutes of medical discussion 04/16/2020 09:52:11 [id number] Eligible clinician attests to documenting in the medical record they obtained, updated, or reviewed the patient's current medications 11/21/2019 09:35:26 57645 Transitional Care Management Services with the following required elements: Communication (direct contact, telephone, electronic) with the patient and/or caregiver within 2 business days of discharge Medical decision making of at least moderate complexity during the service period Jnmc-rt-lrtu visit, within 14 calendar days of discharge 09/07/2019 08:59:13 3046F Most recent hemoglobin A1c level greater than 9.0% (DM) 06/06/2019 14:35:21 11709 Periodic comprehensive preventive medicine reevaluation and management of an individual including an age and gender appropriate history, examination, counseling/anticipatory guidance/risk factor reduction interventions, and the ordering of laboratory/diagnostic procedures, established patient; 40-64 years 06/06/2019 14:35:21 3046F Most recent hemoglobin A1c level greater than 9.0% (DM) 06/06/2019 14:35:21 [id number] Eligible clinician attests to documenting in the medical record they obtained, updated, or reviewed the patient's current medications 06/06/2019 14:35:21 3017F Colorectal cancer screening results documented and reviewed (PV) 06/06/2019 14:35:21 1036F Current tobacco non-user (CAD, CAP, COPD, PV) (DM) (IBD) 03/02/2019 12:33:26 01592 Office or other outpatient visit for the evaluation and management of an established patient, which requires at least 2 of these 3 herrera components: An expanded problem focused history; An expanded problem focused examination; Medical decision making of low complexity. Counseling and coordination of care with other providers or agencies are provided consistent with the nature of the problem(s) and the patient's and/or family's needs. Usually, the presenting problem(s) are of low to moderate severity. Physicians typically spend 15 minutes xsmc-li-nrmk with the patient and/or family. 03/02/2019 12:33:26 3046F Most recent hemoglobin A1c level greater than 9.0% (DM) 02/07/2019 14:58:18 83483 Office or other outpatient visit for the evaluation and management of an established patient, which requires at least 2 of these 3 herrera components: An expanded problem focused history; An expanded problem focused examination; Medical decision making of low complexity. Counseling and coordination of care with other providers or agencies are provided consistent with the nature of the problem(s) and the patient's and/or family's needs. Usually, the presenting problem(s) are of low to moderate severity. Physicians typically spend 15 minutes cquw-mm-zitr with the patient and/or family. 11/06/2018 09:10:54 00866 Office or other outpatient visit for the evaluation and management of an established patient, which requires at least 2 of these 3 herrera components: A comprehensive history; A comprehensive examination; Medical decision making of high complexity. Counseling and/or coordination of care with other providers or agencies are provided consistent with the nature of the problem(s) and the patient's and/or family's needs. Usually, the presenting problem(s) are of moderate to high severity. Physicians typically spend 40 minutes wrud-pc-alqg with the patient and/or family. 08/08/2018 15:36:50 3045F Most recent hemoglobin A1c (HbA1c) level 7.0-9.0% (DM) 06/02/2018 14:48:56 60342 Periodic comprehensive preventive medicine reevaluation and management of an individual including an age and gender appropriate history, examination, counseling/anticipatory guidance/risk factor reduction interventions, and the ordering of laboratory/diagnostic procedures, established patient; 40-64 years 06/02/2018 14:48:56 3046F Most recent hemoglobin A1c level greater than 9.0% (DM) 06/02/2018 14:48:56 2F Dilated retinal eye exam with interpretation by an press operator heavy duty or air operations manager documented and reviewed (DM) 06/02/2018 14:48:56 [id number] Eligible clinician attests to documenting in the medical record they obtained, updated, or reviewed the patient's current medications 06/02/2018 14:48:56 3017F Colorectal cancer screening results documented and reviewed (PV) 06/02/2018 14:48:56 1036F Current tobacco non-user (CAD, CAP, COPD, PV) (DM) (IBD) 02/15/2018 15:06:50 96376 Office or other outpatient visit for the evaluation and management of an established patient, which requires at least 2 of these 3 herrera components: An expanded problem focused history; An expanded problem focused examination; Medical decision making of low complexity. Counseling and coordination of care with other providers or agencies are provided consistent with the nature of the problem(s) and the patient's and/or family's needs. Usually, the presenting problem(s) are of low to moderate severity. Physicians typically spend 15 minutes qqco-wj-zsxk with the patient and/or family. 02/15/2018 15:06:50 3046F Most recent hemoglobin A1c level greater than 9.0% (DM) 02/15/2018 15:06:50 [id number] Eligible clinician attests to documenting in the medical record they obtained, updated, or reviewed the patient's current medications 01/23/2018 13:53:10 3046F Most recent hemoglobin A1c level greater than 9.0% (DM) 11/16/2017 08:33:59 06290 Office or other outpatient visit for the evaluation and management of an established patient, which requires at least 2 of these 3 herrera components: An expanded problem focused history; An expanded problem focused examination; Medical decision making of low complexity. Counseling and coordination of care with other providers or agencies are provided consistent with the nature of the problem(s) and the patient's and/or family's needs. Usually, the presenting problem(s) are of low to moderate severity. Physicians typically spend 15 minutes asvi-vm-pnmq with the patient and/or family. 11/16/2017 08:33:59 2F Dilated retinal eye exam with interpretation by an press operator heavy duty or air operations manager documented and reviewed (DM) 11/16/2017 08:33:59 [id number] Eligible clinician attests to documenting in the medical record they obtained, updated, or reviewed the patient's current medications 11/16/2017 08:33:59 3046F Most recent hemoglobin A1c level greater than 9.0% (DM) 11/16/2017 08:33:59 1036F Current tobacco non-user (CAD, CAP, COPD, PV) (DM) (IBD) 09/09/2017 09:57:23 30723 Office or other outpatient visit for the evaluation and management of an established patient, which requires at least 2 of these 3 herrera components: A detailed history; A detailed examination; Medical decision making of moderate complexity. Counseling and/or coordination of care with other providers or agencies are provided consistent with the nature of the problem(s) and the patient's and/or family's n eeds. Usually, the presenting problem(s) are of moderate to high severity. Physicians typically spend 25 minutes qclp-nx-puno with the patient and/or family. 09/09/2017 09:57:23 1036F Current tobacco non-user (CAD, CAP, COPD, PV) (DM) (IBD) 09/09/2017 09:57:23 3045F Most recent hemoglobin A1c (HbA1c) level 7.0-9.0% (DM) 09/09/2017 09:57:23 [id number] Eligible clinician attests to documenting in the medical record they obtained, updated, or reviewed the patient's current medications 08/09/2017 15:02:34 3046F Most recent hemoglobin A1c level greater than 9.0% (DM) 05/27/2017 15:01:05 87096 Periodic comprehensive preventive medicine reevaluation and management of an individual including an age and gender appropriate history, examination, counseling/anticipatory guidance/risk factor reduction interventions, and the ordering of laboratory/diagnostic procedures, established patient; 40-64 years 05/27/2017 15:01:05 2F Dilated retinal eye exam with interpretation by an press operator heavy duty or air operations manager documented and reviewed (DM) 05/27/2017 15:01:05 [id number] Eligible clinician attests to documenting in the medical record they obtained, updated, or reviewed the patient's current medications 05/27/2017 15:01:05 1036F Current tobacco non-user (CAD, CAP, COPD, PV) (DM) (IBD) 05/27/2017 15:01:05 3017F Colorectal cancer screening results documented and reviewed (PV) 05/27/2017 15:01:05 3046F Most recent hemoglobin A1c level greater than 9.0% (DM) 01/28/2017 14:04:54 60231 Office or other outpatient visit for the evaluation and management of an established patient, which requires at least 2 of these 3 herrera components: An expanded problem focused history; An expanded problem focused examination; Medical decision making of low complexity. Counseling and coordination of care with other providers or agencies are provided consistent with the nature of the problem(s) and the patient's and/or family's needs. Usually, the presenting problem(s) are of low to moderate severity. Physicians typically spend 15 minutes wrhp-lj-kpsw with the patient and/or family. 10/27/2016 08:24:56 28978 Office or other outpatient visit for the evaluation and management of an established patient, which requires at least 2 of these 3 herrera components: A detailed history; A detailed examination; Medical decision making of moderate complexity. Counseling and/or coordination of care with other providers or agencies are provided consistent with the nature of the problem(s) and the patient's and/or family's n eeds. Usually, the presenting problem(s) are of moderate to high severity. Physicians typically spend 25 minutes ppbi-mb-zkfh with the patient and/or family. 07/26/2016 08:59:47 67850 Office or other outpatient visit for the evaluation and management of an established patient, which requires at least 2 of these 3 herrera components: An expanded problem focused history; An expanded problem focused examination; Medical decision making of low complexity. Counseling and coordination of care with other providers or agencies are provided consistent with the nature of the problem(s) and the patient's and/or family's needs. Usually, the presenting problem(s) are of low to moderate severity. Physicians typically spend 15 minutes rrlv-xp-zpiw with the patient and/or family. 06/21/2016 15:32:20 15621 Office or other outpatient visit for the evaluation and management of an established patient, which requires at least 2 of these 3 herrera components: An expanded problem focused history; An expanded problem focused examination; Medical decision making of low complexity. Counseling and coordination of care with other providers or agencies are provided consistent with the nature of the problem(s) and the patient's and/or family's needs. Usually, the presenting problem(s) are of low to moderate severity. Physicians typically spend 15 minutes twkp-nw-avxq with the patient and/or family. 03/19/2016 14:34:02 10063 Periodic comprehensive preventive medicine reevaluation and management of an individual including an age and gender appropriate history, examination, counseling/anticipatory guidance/risk factor reduction interventions, and the ordering of laboratory/diagnostic procedures, established patient; 40-64 years 12/19/2015 14:04:40 56529 Office or other outpatient visit for the evaluation and management of an established patient, which requires at least 2 of these 3 herrera components: An expanded problem focused history; An expanded problem focused examination; Medical decision making of low complexity. Counseling and coordination of care with other providers or agencies are provided consistent with the nature of the problem(s) and the patient's and/or family's needs. Usually, the presenting problem(s) are of low to moderate severity. Physicians typically spend 15 minutes arkb-vz-ozkd with the patient and/or family. 09/15/2015 14:03:38 14430 Office or other outpatient visit for the evaluation and management of an established patient, which requires at least 2 of these 3 herrera components: An expanded problem focused history; An expanded problem focused examination; Medical decision making of low complexity. Counseling and coordination of care with other providers or agencies are provided consistent with the nature of the problem(s) and the patient's and/or family's needs. Usually, the presenting problem(s) are of low to moderate severity. Physicians typically spend 15 minutes cojy-qn-jdvq with the patient and/or family. 06/13/2015 15:00:29 28364 Office or other outpatient visit for the evaluation and management of an established patient, which requires at least 2 of these 3 herrera components: An expanded problem focused history; An expanded problem focused examination; Medical decision making of low complexity. Counseling and coordination of care with other providers or agencies are provided consistent with the nature of the problem(s) and the patient's and/or family's needs. Usually, the presenting problem(s) are of low to moderate severity. Physicians typically spend 15 minutes dori-qd-qjep with the patient and/or family. 06/13/2015 15:00:29 Q2035 Afluria flu Vaccine 06/13/2015 15:00:29 49864 Immunization administration (includes percutaneous, intradermal, subcutaneous, or intramuscular injections); one vaccine (single or combination vaccine/toxoid) 03/14/2015 15:06:01 17053 Hemoglobin; glycosylated (A1C) by device cleared by FDA for home use 03/14/2015 15:06:01 55385 Office or other outpatient visit for the evaluation and management of an established patient, which requires at least 2 of these 3 herrera components: An expanded problem focused history; An expanded problem focused examination; Medical decision making of low complexity. Counseling and coordination of care with other providers or agencies are provided consistent with the nature of the problem(s) and the patient's and/or family's needs. Usually, the presenting problem(s) are of low to moderate severity. Physicians typically spend 15 minutes nvcv-bg-kciu with the patient and/or family. 12/09/2014 09:07:50 48331 Hemoglobin; glycosylated (A1C) by device cleared by FDA for home use 12/09/2014 09:07:50 10423 Office or other outpatient visit for the evaluation and management of an established patient, which requires at least 2 of these 3 herrera components: An expanded problem focused history; An expanded problem focused examination; Medical decision making of low complexity. Counseling and coordination of care with other providers or agencies are provided consistent with the nature of the problem(s) and the patient's and/or family's needs. Usually, the presenting problem(s) are of low to moderate severity. Physicians typically spend 15 minutes xrum-pi-vwvf with the patient and/or family. 09/11/2014 00:00:00 52667 Office or other outpatient visit for the evaluation and management of an established patient, which requires at least 2 of these 3 herrera components: An expanded problem focused history; An expanded problem focused examination; Medical decision making of low complexity. Counseling and coordination of care with other providers or agencies are provided consistent with the nature of the problem(s) and the patient's and/or family's needs. Usually, the presenting problem(s) are of low to moderate severity. Physicians typically spend 15 minutes omqg-ej-zqfd with the patient and/or family. 06/21/2014 00:00:00 76688 Office or other outpatient visit for the evaluation and management of an established patient, which requires at least 2 of these 3 herrera components: An expanded problem focused history; An expanded problem focused examination; Medical decision making of low complexity. Counseling and coordination of care with other providers or agencies are provided consistent with the nature of the problem(s) and the patient's and/or family's needs. Usually, the presenting problem(s) are of low to moderate severity. Physicians typically spend 15 minutes qghe-zc-nmnz with the patient and/or family. 06/03/2014 00:00:00 Q2035 Afluria flu Vaccine 06/03/2014 00:00:00 29729 Office or other outpatient visit for the evaluation and management of an established patient, which requires at least 2 of these 3 herrera components: An expanded problem focused history; An expanded problem focused examination; Medical decision making of low complexity. Counseling and coordination of care with other providers or agencies are provided consistent with the nature of the problem(s) and the patient's and/or family's needs. Usually, the presenting problem(s) are of low to moderate severity. Physicians typically spend 15 minutes sxiu-fh-ggpd with the patient and/or family. 06/03/2014 00:00:00 48346 Immunization administration (includes percutaneous, intradermal, subcutaneous, or intramuscular injections); one vaccine (single or combination vaccine/toxoid) 04/29/2014 00:00:00 33184 Office or other outpatient visit for the evaluation and management of an established patient, which requires at least 2 of these 3 herrera components: A detailed history; A detailed examination; Medical decision making of moderate complexity. Counseling and/or coordination of care with other providers or agencies are provided consistent with the nature of the problem(s) and the patient's and/or family's n eeds. Usually, the presenting problem(s) are of moderate to high severity. Physicians typically spend 25 minutes vrnf-cl-jtto with the patient and/or family. 04/01/2014 00:00:00 46160 Office or other outpatient visit for the evaluation and management of an established patient, which requires at least 2 of these 3 herrera components: A detailed history; A detailed examination; Medical decision making of moderate complexity. Counseling and/or coordination of care with other providers or agencies are provided consistent with the nature of the problem(s) and the patient's and/or family's n eeds. Usually, the presenting problem(s) are of moderate to high severity. Physicians typically spend 25 minutes ntko-wj-gfyt with the patient and/or family. 03/18/2014 00:00:00 30993 Office or other outpatient visit for the evaluation and management of an established patient, which requires at least 2 of these 3 herrera components: A detailed history; A detailed examination; Medical decision making of moderate complexity. Counseling and/or coordination of care with other providers or agencies are provided consistent with the nature of the problem(s) and the patient's and/or family's n eeds. Usually, the presenting problem(s) are of moderate to high severity. Physicians typically spend 25 minutes zkhs-fa-syve with the patient and/or family. 03/18/2014 00:00:00 25854 Electrocardiogram, routine ECG with at least 12 leads; with interpretation and report 03/04/2014 00:00:00 13228 Office or other outpatient visit for the evaluation and management of an established patient, which requires at least 2 of these 3 herrera components: A detailed history; A detailed examination; Medical decision making of moderate complexity. Counseling and/or coordination of care with other providers or agencies are provided consistent with the nature of the problem(s) and the patient's and/or family's n eeds. Usually, the presenting problem(s) are of moderate to high severity. Physicians typically spend 25 minutes ufvy-av-suoo with the patient and/or family. 02/15/2014 00:00:00 09308 Office or other outpatient visit for the evaluation and management of an established patient, which requires at least 2 of these 3 herrera components: A comprehensive history; A comprehensive examination; Medical decision making of high complexity. Counseling and/or coordination of care with other providers or agencies are provided consistent with the nature of the problem(s) and the patient's and/or family's needs. Usually, the presenting problem(s) are of moderate to high severity. Physicians typically spend 40 minutes nmju-yo-gxdy with the patient and/or family. 02/04/2014 00:00:00 13405 Office or other outpatient visit for the evaluation and management of an established patient, which requires at least 2 of these 3 herrera components: A detailed history; A detailed examination; Medical decision making of moderate complexity. Counseling and/or coordination of care with other providers or agencies are provided consistent with the nature of the problem(s) and the patient's and/or family's n eeds. Usually, the presenting problem(s) are of moderate to high severity. Physicians typically spend 25 minutes xndz-ij-mtpa with the patient and/or family. 12/17/2013 00:00:00 [id number] Hemoglobin; glycosylated (A1C) by device cleared by FDA for home use 12/17/2013 00:00:00 [id number] Office or other outpatient visit for the evaluation and management of an established patient, which requires at least 2 of these 3 herrera components: An expanded problem focused history; An expanded problem focused examination; Medical decision making of low complexity. Counseling and coordination of care with other providers or agencies are provided consistent with the nature of the problem(s) and the patient's and/or family's needs. Usually, the presenting problem(s) are of low to moderate severity. Physicians typically spend 15 minutes qvcc-yd-tqcu with the patient and/or family. 11/21/2013 00:00:00 11184 Office or other outpatient visit for the evaluation and management of an established patient, which requires at least 2 of these 3 herrera components: An expanded problem focused history; An expanded problem focused examination; Medical decision making of low complexity. Counseling and coordination of care with other providers or agencies are provided consistent with the nature of the problem(s) and the patient's and/or family's needs. Usually, the presenting problem(s) are of low to moderate severity. Physicians typically spend 15 minutes tsnw-qr-zxwa with the patient and/or family. 10/31/2013 00:00:00 91600 Office or other outpatient visit for the evaluation and management of an established patient, which requires at least 2 of these 3 herrera components: A detailed history; A detailed examination; Medical decision making of moderate complexity. Counseling and/or coordination of care with other providers or agencies are provided consistent with the nature of the problem(s) and the patient's and/or family's n eeds. Usually, the presenting problem(s) are of moderate to high severity. Physicians typically spend 25 minutes nvtj-qk-kytg with the patient and/or family. 08/01/2013 08:46:35 07925 Office or other outpatient visit for the evaluation and management of an established patient, which requires at least 2 of these 3 herrera components: A detailed history; A detailed examination; Medical decision making of moderate complexity. Counseling and/or coordination of care with other providers or agencies are provided consistent with the nature of the problem(s) and the patient's and/or family's n eeds. Usually, the presenting problem(s) are of moderate to high severity. Physicians typically spend 25 minutes rekx-yj-qvsa with the patient and/or family. 05/16/2013 16:17:18 [id number] Immunization administration (includes percutaneous, intradermal, subcutaneous, or intramuscular injections); one vaccine (single or combination vaccine/toxoid) 05/16/2013 16:17:18 [id number] Afluria flu Vaccine 05/16/2013 16:17:18 10584 Office or other outpatient visit for the evaluation and management of an established patient, which requires at least 2 of these 3 herrera components: An expanded problem focused history; An expanded problem focused examination; Medical decision making of low complexity. Counseling and coordination of care with other providers or agencies are provided consistent with the nature of the problem(s) and the patient's and/or family's needs. Usually, the presenting problem(s) are of low to moderate severity. Physicians typically spend 15 minutes tnjm-ky-fdzs with the patient and/or family. 04/13/2013 14:32:12 [id number] Office or other outpatient visit for the evaluation and management of an established patient, which requires at least 2 of these 3 herrera components: An expanded problem focused history; An expanded problem focused examination; Medical decision making of low complexity. Counseling and coordination of care with other providers or agencies are provided consistent with the nature of the problem(s) and the patient's and/or family's needs. Usually, the presenting problem(s) are of low to moderate severity. Physicians typically spend 15 minutes bidg-by-ltyd with the patient and/or family. 03/23/2013 14:31:37 15337 Office or other outpatient visit for the evaluation and management of an established patient, which requires at least 2 of these 3 herrera components: An expanded problem focused history; An expanded problem focused examination; Medical decision making of low complexity. Counseling and coordination of care with other providers or agencies are provided consistent with the nature of the problem(s) and the patient's and/or family's needs. Usually, the presenting problem(s) are of low to moderate severity. Physicians typically spend 15 minutes pzvq-al-lwip with the patient and/or family. 03/02/2013 11:29:36 72180 Office or other outpatient visit for the evaluation and management of an established patient, which requires at least 2 of these 3 herrera components: A detailed history; A detailed examination; Medical decision making of moderate complexity. Counseling and/or coordination of care with other providers or agencies are provided consistent with the nature of the problem(s) and the patient's and/or family's n eeds. Usually, the presenting problem(s) are of moderate to high severity. Physicians typically spend 25 minutes bxvq-rp-emex with the patient and/or family. 02/02/2013 15:29:46 [id number] Periodic comprehensive preventive medicine reevaluation and management of an individual including an age and gender appropriate history, examination, counseling/anticipatory guidance/risk factor reduction interventions, and the ordering of laboratory/diagnostic procedures, established patient; 40-64 years 10/30/2012 08:35:21 97518 Office or other outpatient visit for the evaluation and management of an established patient, which requires at least 2 of these 3 herrera components: A detailed history; A detailed examination; Medical decision making of moderate complexity. Counseling and/or coordination of care with other providers or agencies are provided consistent with the nature of the problem(s) and the patient's and/or family's n eeds. Usually, the presenting problem(s) are of moderate to high severity. Physicians typically spend 25 minutes yxli-mf-ckzw with the patient and/or family. 07/31/2012 08:34:07 04715 Office or other outpatient visit for the evaluation and management of an established patient, which requires at least 2 of these 3 herrera components: An expanded problem focused history; An expanded problem focused examination; Medical decision making of low complexity. Counseling and coordination of care with other providers or agencies are provided consistent with the nature of the problem(s) and the patient's and/or family's needs. Usually, the presenting problem(s) are of low to moderate severity. Physicians typically spend 15 minutes hnvs-ia-mkmd with the patient and/or family. 07/31/2012 08:34:07 06907 Collection of venous blood by venipuncture 07/31/2012 08:34:07 53802 Hemoglobin; glycosylated (A1C) by device cleared by FDA for home use 04/28/2012 08:54:32 69702 Office or other outpatient visit for the evaluation and management of an established patient, which requires at least 2 of these 3 herrera components: An expanded problem focused history; An expanded problem focused examination; Medical decision making of low complexity. Counseling and coordination of care with other providers or agencies are provided consistent with the nature of the problem(s) and the patient's and/or family's needs. Usually, the presenting problem(s) are of low to moderate severity. Physicians typically spend 15 minutes dklu-yx-uyob with the patient and/or family. 04/28/2012 08:54:32 17170 Immunization administration (includes percutaneous, intradermal, subcutaneous, or intramuscular injections); one vaccine (single or combination vaccine/toxoid) 04/28/2012 08:54:32 63600 INFLUENZA VACCINATION 01/28/2012 08:32:04 81676 Office or other outpatient visit for the evaluation and management of an established patient, which requires at least 2 of these 3 herrera components: An expanded problem focused history; An expanded problem focused examination; Medical decision making of low complexity. Counseling and coordination of care with other providers or agencies are provided consistent with the nature of the problem(s) and the patient's and/or family's needs. Usually, the presenting problem(s) are of low to moderate severity. Physicians typically spend 15 minutes rkpf-fx-dphk with the patient and/or family. 11/01/2011 08:43:13 45051 Office or other outpatient visit for the evaluation and management of an established patient, which requires at least 2 of these 3 herrera components: A detailed history; A detailed examination; Medical decision making of moderate complexity. Counseling and/or coordination of care with other providers or agencies are provided consistent with the nature of the problem(s) and the patient's and/or family's n eeds. Usually, the presenting problem(s) are of moderate to high severity. Physicians typically spend 25 minutes xqtd-yk-smln with the patient and/or family. 10/13/2011 08:40:23 20163 Office or other outpatient visit for the evaluation and management of an established patient, which requires at least 2 of these 3 herrera components: A detailed history; A detailed examination; Medical decision making of moderate complexity. Counseling and/or coordination of care with other providers or agencies are provided consistent with the nature of the problem(s) and the patient's and/or family's n eeds. Usually, the presenting problem(s) are of moderate to high severity. Physicians typically spend 25 minutes pion-po-ildx with the patient and/or family. 08/13/2011 08:37:34 24001 Immunization administration (includes percutaneous, intradermal, subcutaneous, or intramuscular injections); one vaccine (single or combination vaccine/toxoid) 08/13/2011 08:37:34 33479 INFLUENZA VACCINATION 08/13/2011 08:37:34 30779 Office or other outpatient visit for the evaluation and management of an established patient, which requires at least 2 of these 3 herrera components: A detailed history; A detailed examination; Medical decision making of moderate complexity. Counseling and/or coordination of care with other providers or agencies are provided consistent with the nature of the problem(s) and the patient's and/or family's n eeds. Usually, the presenting problem(s) are of moderate to high severity. Physicians typically spend 25 minutes ndqs-ai-jufy with the patient and/or family. 05/12/2011 15:35:49 [id number] Office or other outpatient visit for the evaluation and management of an established patient, which requires at least 2 of these 3 herrera components: An expanded problem focused history; An expanded problem focused examination; Medical decision making of low complexity. Counseling and coordination of care with other providers or agencies are provided consistent with the nature of the problem(s) and the patient's and/or family's needs. Usually, the presenting problem(s) are of low to moderate severity. Physicians typically spend 15 minutes wrhw-fo-vpps with the patient and/or family. 03/17/2011 00:00:00 91644 Office or other outpatient visit for the evaluation and management of an established patient, which requires at least 2 of these 3 herrera components: An expanded problem focused history; An expanded problem focused examination; Medical decision making of low complexity. Counseling and coordination of care with other providers or agencies are provided consistent with the nature of the problem(s) and the patient's and/or family's needs. Usually, the presenting problem(s) are of low to moderate severity. Physicians typically spend 15 minutes dqkj-wg-zcur with the patient and/or family. 10/21/2010 00:00:00 70011 Office or other outpatient visit for the evaluation and management of an established patient, which requires at least 2 of these 3 herrera components: An expanded problem focused history; An expanded problem focused examination; Medical decision making of low complexity. Counseling and coordination of care with other providers or agencies are provided consistent with the nature of the problem(s) and the patient's and/or family's needs. Usually, the presenting problem(s) are of low to moderate severity. Physicians typically spend 15 minutes eqec-sr-theq with the patient and/or family. 10/05/2010 00:00:00 64240 Office or other outpatient visit for the evaluation and management of an established patient, which requires at least 2 of these 3 herrera components: A detailed history; A detailed examination; Medical decision making of moderate complexity. Counseling and/or coordination of care with other providers or agencies are provided consistent with the nature of the problem(s) and the patient's and/or family's n eeds. Usually, the presenting problem(s) are of moderate to high severity. Physicians typically spend 25 minutes lnfv-hy-tzqj with the patient and/or family. 06/24/2010 00:00:00 96537 Office or other outpatient visit for the evaluation and management of an established patient, which requires at least 2 of these 3 herrera components: An expanded problem focused history; An expanded problem focused examination; Medical decision making of low complexity. Counseling and coordination of care with other providers or agencies are provided consistent with the nature of the problem(s) and the patient's and/or family's needs. Usually, the presenting problem(s) are of low to moderate severity. Physicians typically spend 15 minutes futo-qv-hgby with the patient and/or family. 04/17/2010 00:00:00 91167 Office or other outpatient visit for the evaluation and management of an established patient, which requires at least 2 of these 3 herrera components: An expanded problem focused history; An expanded problem focused examination; Medical decision making of low complexity. Counseling and coordination of care with other providers or agencies are provided consistent with the nature of the problem(s) and the patient's and/or family's needs. Usually, the presenting problem(s) are of low to moderate severity. Physicians typically spend 15 minutes ykdr-ri-vzeq with the patient and/or family. 01/16/2010 00:00:00 96621 Office or other outpatient visit for the evaluation and management of an established patient, which requires at least 2 of these 3 herrera components: An expanded problem focused history; An expanded problem focused examination; Medical decision making of low complexity. Counseling and coordination of care with other providers or agencies are provided consistent with the nature of the problem(s) and the patient's and/or family's needs. Usually, the presenting problem(s) are of low to moderate severity. Physicians typically spend 15 minutes uazy-dl-hxyn with the patient and/or family. 12/03/2009 00:00:00 52788 Office or other outpatient visit for the evaluation and management of an established patient, which requires at least 2 of these 3 herrera components: A detailed history; A detailed examination; Medical decision making of moderate complexity. Counseling and/or coordination of care with other providers or agencies are provided consistent with the nature of the problem(s) and the patient's and/or family's n eeds. Usually, the presenting problem(s) are of moderate to high severity. Physicians typically spend 25 minutes xfkb-yp-clnm with the patient and/or family. 11/24/2009 00:00:00 96035 Office or other outpatient visit for the evaluation and management of an established patient, which requires at least 2 of these 3 herrera components: A comprehensive history; A comprehensive examination; Medical decision making of high complexity. Counseling and/or coordination of care with other providers or agencies are provided consistent with the nature of the problem(s) and the patient's and/or family's needs. Usually, the presenting problem(s) are of moderate to high severity. Physicians typically spend 40 minutes gizp-tq-xhun with the patient and/or family. 10/17/2009 00:00: 08431 Office or other outpatient visit for the evaluation and management of an established patient, which requires at least 2 of these 3 herrera components: A detailed history; A detailed examination; Medical decision making of moderate complexity. Counseling and/or coordination of care with other providers or agencies are provided consistent with the nature of the problem(s) and the patient's and/or family's n eeds. Usually, the presenting problem(s) are of moderate to high severity. Physicians typically spend 25 minutes akod-um-fvvg with the patient and/or family. 10/17/2009 00:00:00 91259 Collection of venous blood by venipuncture 11/27/2008 00:00:00 41016 Office or other outpatient visit for the evaluation and management of an established patient, which requires at least 2 of these 3 herrera components: A detailed history; A detailed examination; Medical decision making of moderate complexity. Counseling and/or coordination of care with other providers or agencies are provided consistent with the nature of the problem(s) and the patient's and/or family's n eeds. Usually, the presenting problem(s) are of moderate to high severity. Physicians typically spend 25 minutes dibh-za-xlwx with the patient and/or family. REASON FOR REFERRAL No Reason for Referral information available. RESULTS Result Type Result Value Relevant Reference Range Interpretation Date N/A Service Date and Time: 09/09/2017 1502 Technologist: MORA Exam Requested: CHEST 2 VIEW Reason for Patient Visit: CXR J44.1 N18.3 E11.21 Reason for Exam: ACUTE EXACERBATION OF CHRONIC ASTHMATIC BRONCHITIS Clinical: Dyspnea with history of asthma . Comparison: 05/16/2017 . Technique: PA and lateral. Findings: The mediastinum and cardiac silhouette are normal. The lung alexander are clear and without acute consolidation, effusion, or pneumothorax. The skeletal structures are intact and normal. Impression: 1. No acute cardiopulmonary process. Signed by Herbert Hernandez MD 09/09/2017 03:06 P DD: MALCOLM 09/09/2017 1506 DT: 3MUSER 09/09/2017 1506 DS: MALCOLM 09/09/2017 1506 The Following Link and Pin can be used to access images associated with this report: [email or web address] [id number] N/A N/A 09/09/2017 14:53:00 N/A Service Date and Time: 08/21/2015 1115 Technologist: DINAH Exam Requested: CHEST 2 VIEW Reason for Patient Visit: CHEST XRAY, STANDARD CHEST ABNORMAL Reason for Exam: ABNORMAL CHEST X-RAY, TWO VIEWS: HISTORY: Upper respiratory symptoms for a month. COMPARISON: Chest x-ray, 06/18/2015. FINDINGS: The lungs are well inflated and clear. Pleural angles are sharp. Heart size is normal. The linear stranding in the bases seen on the prior chest x-ray is resolved. No bony abnormality is seen. IMPRESSION: No active disease. Cc: DD: RICHARD 08/21/2015 1206 DT: TFULTS1 08/22/2015 1002 DS: RICHARD 08/22/2015 1525 <Electronically signed by Dante Yepez> 08/22/2015 1525 The Following Link and Pin can be used to access images associated with this report: [email or web address] [id number] N/A N/A 08/21/2015 11:15:00 SOCIAL HISTORY Social History Observation Description Dates Observed Smoking Status Never smoker, [SNOMED -CT: [id number]] TREATMENT PLAN Encounter Date Planned Care 09/03/2020 08:28:39 Plan printed and provided to patient: ADDED Current Meds: Tresiba FlexTouch 100 units/mL subcutaneous solution, 64 units ???in place of lantus, # 0, RF: 0. PRESCRIBE: Ajovy Autoinjector 225 mg/1.5 mL subcutaneous solution, monthy, # 1.5, PRESCRIBE: Skelaxin 800 mg oral tablet, one po tid prn back pain, # 270, RF: 3. (Transmitted by Lacy Callahan, DO) PRESCRIBE: simvastatin 40 mg oral tablet, one po daily, # 90, RF: 3. (Transmitted by Lacy Callahan, DO) PRESCRIBE: metFORMIN 1000 mg oral tablet, one po pc largest meals bid, # 180, RF: 3. (Transmitted by Lacy Callahan, DO) PRESCRIBE: lisinopril 2.5 mg oral tablet, one po daily, # 90, RF: 3. (Transmitted by Lacy Callahan, DO) PRESCRIBE: glyBURIDE 2.5 mg oral tablet, one po qam and two po qpm, # 270, RF: 3. (Transmitted by Lacy Callahan, DO) PRESCRIBE: carvedilol 6.25 mg oral tablet, one po bid, # 180, RF: 3. (Transmitted by Lacy Callahan, DO) REMOVED from Current Meds: Trulicity Pen 1.5 mg/0.5 mL subcutaneous solution, will take the place of his bydureon, # 0, RF: 0. 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 PROVIDED HM: Colorectal Cancer: Screening Given: due in 2023 done by stephanie PROVIDED HM: Screening for Diabetic Retinopathy Given: last visit was jun 2020? 09/03/2020 08:28:39 Plan printed and provided to patient: ADDED Current Meds: Tresiba FlexTouch 100 units/mL subcutaneous solution, 64 units ???in place of lantus, # 0, RF: 0. PRESCRIBE: Ajovy Autoinjector 225 mg/1.5 mL subcutaneous solution, monthy, # 1.5, PRESCRIBE: Skelaxin 800 mg oral tablet, one po tid prn back pain, # 270, RF: 3. (Transmitted by Lacy Callahan, DO) PRESCRIBE: simvastatin 40 mg oral tablet, one po daily, # 90, RF: 3. (Transmitted by Lacy Sindy, DO) PRESCRIBE: metFORMIN 1000 mg oral tablet, one po pc largest meals bid, # 180, RF: 3. (Transmitted by Lacy Sindy, DO) PRESCRIBE: lisinopril 2.5 mg oral tablet, one po daily, # 90, RF: 3. (Transmitted by Lacy Linden, DO) PRESCRIBE: glyBURIDE 2.5 mg oral tablet, one po qam and two po qpm, # 270, RF: 3. (Transmitted by Lacy Callahan, DO) PRESCRIBE: carvedilol 6.25 mg oral tablet, one po bid, # 180, RF: 3. (Transmitted by LacyAvance Payard, DO) REMOVED from Current Meds: Trulicity Pen 1.5 mg/0.5 mL subcutaneous solution, will take the place of his bydureon, # 0, RF: 0. 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 PROVIDED HM: Colorectal Cancer: Screening Given: due in 2023 done by stephanie PROVIDED HM: Screening for Diabetic Retinopathy Given: last visit was jun 2020? 09/03/2020 08:28:39 Plan printed and provided to patient: ADDED Current Meds: Tresiba FlexTouch 100 units/mL subcutaneous solution, 64 units ???in place of lantus, # 0, RF: 0. PRESCRIBE: Ajovy Autoinjector 225 mg/1.5 mL subcutaneous solution, monthy, # 1.5, PRESCRIBE: Skelaxin 800 mg oral tablet, one po tid prn back pain, # 270, RF: 3. (Transmitted by LacyAvance Payard, DO) PRESCRIBE: simvastatin 40 mg oral tablet, one po daily, # 90, RF: 3. (Transmitted by Lacy Linden, DO) PRESCRIBE: metFORMIN 1000 mg oral tablet, one po pc largest meals bid, # 180, RF: 3. (Transmitted by Lacy Linden, DO) PRESCRIBE: lisinopril 2.5 mg oral tablet, one po daily, # 90, RF: 3. (Transmitted by Lacy Linden, DO) PRESCRIBE: glyBURIDE 2.5 mg oral tablet, one po qam and two po qpm, # 270, RF: 3. (Transmitted by Lacy Sindy, DO) PRESCRIBE: carvedilol 6.25 mg oral tablet, one po bid, # 180, RF: 3. (Transmitted by LacyAvance Payard, DO) REMOVED from Current Meds: Trulicity Pen 1.5 mg/0.5 mL subcutaneous solution, will take the place of his bydureon, # 0, RF: 0. 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 PROVIDED HM: Colorectal Cancer: Screening Given: due in 2023 done by stephanie PROVIDED HM: Screening for Diabetic Retinopathy Given: last visit was jun 2020? 04/16/2020 09:52:11 This visit was spent in reviewing with the patient their chart, labs and testing, speaking with the patient via telemedicine(video feed), answering questions and completing a plan. ORDERED/ADVISED: Order Date 04-16-2020 - CBC with diff (automated) (R52, Z73.3, G25.3, E78.49, Z00.00, E11.65) - CMP (Complete Metabolic Panel) (R52, Z73.3, G25.3, E78.49, Z00.00, E11.65) - HGBA1C (R52, Z73.3, G25.3, E78.49, Z00.00, E11.65) - Lipid Panel (R52, Z73.3, G25.3, E78.49, Z00.00, E11.65) - Magnesium Level (R52, Z73.3, G25.3, E78.49, Z00.00, E11.65) - Urine microalbumin (R52, Z73.3, G25.3, E78.49, Z00.00, E11.65) 16 min on the phone 04/16/2020 09:52:11 This visit was spent in reviewing with the patient their chart, labs and testing, speaking with the patient via telemedicine(video feed), answering questions and completing a plan. ORDERED/ADVISED: Order Date 04-16-2020 - CBC with diff (automated) (R52, Z73.3, G25.3, E78.49, Z00.00, E11.65) - CMP (Complete Metabolic Panel) (R52, Z73.3, G25.3, E78.49, Z00.00, E11.65) - HGBA1C (R52, Z73.3, G25.3, E78.49, Z00.00, E11.65) - Lipid Panel (R52, Z73.3, G25.3, E78.49, Z00.00, E11.65) - Magnesium Level (R52, Z73.3, G25.3, E78.49, Z00.00, E11.65) - Urine microalbumin (R52, Z73.3, G25.3, E78.49, Z00.00, E11.65) 16 min on the phone 04/16/2020 09:52:11 This visit was spent in reviewing with the patient their chart, labs and testing, speaking with the patient via telemedicine(video feed), answering questions and completing a plan. ORDERED/ADVISED: Order Date 04-16-2020 - CBC with diff (automated) (R52, Z73.3, G25.3, E78.49, Z00.00, E11.65) - CMP (Complete Metabolic Panel) (R52, Z73.3, G25.3, E78.49, Z00.00, E11.65) - HGBA1C (R52, Z73.3, G25.3, E78.49, Z00.00, E11.65) - Lipid Panel (R52, Z73.3, G25.3, E78.49, Z00.00, E11.65) - Magnesium Level (R52, Z73.3, G25.3, E78.49, Z00.00, E11.65) - Urine microalbumin (R52, Z73.3, G25.3, E78.49, Z00.00, E11.65) 16 min on the phone 11/21/2019 09:35:26 Plan printed and provided to patient: Continue rest fluids tylenol for aches and pains. [facility] 11/21/2019 09:35:26 Plan printed and provided to patient: Continue rest fluids tylenol for aches and pains. [facility] 11/21/2019 09:35:26 Plan printed and provided to patient: Continue rest fluids tylenol for aches and pains. [facility] 06/06/2019 14:35:21 Plan printed and provided to patient: PRESCRIBE: Skelaxin 800 mg oral tablet, one po tid prn back pain, # 270, RF: 3. (Transmitted by Lacy Callahan, ) PRESCRIBE: NovoLOG FlexPen 100 units/mL injectable solution, use as directed 32 units qid with meals, # 6, RF: 5. (Transmitted by Lacy Callahan, ) PRESCRIBE: simvastatin 40 mg oral tablet, one po daily, # 90, RF: 3. (Transmitted by Lacy Callahan DO) PRESCRIBE: metFORMIN 1000 mg oral tablet, one po pc largest meals bid, # 180, RF: 3. (Transmitted by Lacy aCllahan, DO) PRESCRIBE: lisinopril 2.5 mg oral tablet, one po daily, # 90, RF: 3. (Transmitted by Lacy Callahan, DO) PRESCRIBE: glyBURIDE 2.5 mg oral tablet, one po qam and two po qpm, # 270, RF: 3. (Transmitted by Lacy Callahan, DO) PRESCRIBE: carvedilol 6.25 mg oral tablet, one po bid, # 180, RF: 3. (Transmitted by Lacy Callahan, DO) PROVIDED HM: Colorectal Cancer: Screening Given: up to date PROVIDED HM: Recommendations for Testing HgbA1C in Individuals with Diabetes Mellitus Given: 11% in Dr. Lee's office PROVIDED HM: Tobacco use counseling and interventions: non- adults Given: NI PROVIDED HM: Screening for Depression in Adults Given: 2 question screen neg PROVIDED HM: Screening for Anxiety Given: Score of zero...lots of work stress PROVIDED HM: High Blood Pressure in Adults: Screening Given: 158/90 ORDERED/ADVISED: Order Date 06-06-2019 - CMP (Complete Metabolic Panel) (K57.90, I10, E78.49, K63.5, Z00.00, R00.0, E11.65) - Lipid Panel (K57.90, I10, E78.49, K63.5, Z00.00, R00.0, E11.65) - HGBA1C (K57.90, I10, E78.49, K63.5, Z00.00, R00.0, E11.65) 06/06/2019 14:35:21 Plan printed and provided to patient: PRESCRIBE: Skelaxin 800 mg oral tablet, one po tid prn back pain, # 270, RF: 3. (Transmitted by Lacy Callahan, DO) PRESCRIBE: NovoLOG FlexPen 100 units/mL injectable solution, use as directed 32 units qid with meals, # 6, RF: 5. (Transmitted by aLcy Callahan, DO) PRESCRIBE: simvastatin 40 mg oral tablet, one po daily, # 90, RF: 3. (Transmitted by Lacy Callahan, ) PRESCRIBE: metFORMIN 1000 mg oral tablet, one po pc largest meals bid, # 180, RF: 3. (Transmitted by Lacy Callahan, ) PRESCRIBE: lisinopril 2.5 mg oral tablet, one po daily, # 90, RF: 3. (Transmitted by Lacy Callahan DO) PRESCRIBE: glyBURIDE 2.5 mg oral tablet, one po qam and two po qpm, # 270, RF: 3. (Transmitted by Lacy Callahan, ) PRESCRIBE: carvedilol 6.25 mg oral tablet, one po bid, # 180, RF: 3. (Transmitted by Lacy Callahan DO) PROVIDED HM: Colorectal Cancer: Screening Given: up to date PROVIDED HM: Recommendations for Testing HgbA1C in Individuals with Diabetes Mellitus Given: 11% in Dr. Lee's office PROVIDED HM: Tobacco use counseling and interventions: non- adults Given: NI PROVIDED HM: Screening for Depression in Adults Given: 2 question screen neg PROVIDED HM: Screening for Anxiety Given: Score of zero...lots of work stress PROVIDED HM: High Blood Pressure in Adults: Screening Given: 158/90 ORDERED/ADVISED: Order Date 06-06-2019 - CMP (Complete Metabolic Panel) (K57.90, I10, E78.49, K63.5, Z00.00, R00.0, E11.65) - Lipid Panel (K57.90, I10, E78.49, K63.5, Z00.00, R00.0, E11.65) - HGBA1C (K57.90, I10, E78.49, K63.5, Z00.00, R00.0, E11.65) 06/06/2019 14:35:21 Plan printed and provided to patient: PRESCRIBE: Skelaxin 800 mg oral tablet, one po tid prn back pain, # 270, RF: 3. (Transmitted by Lacy Callahan DO) PRESCRIBE: NovoLOG FlexPen 100 units/mL injectable solution, use as directed 32 units qid with meals, # 6, RF: 5. (Transmitted by Lacy Callahan DO) PRESCRIBE: simvastatin 40 mg oral tablet, one po daily, # 90, RF: 3. (Transmitted by Lacy Callahan DO) PRESCRIBE: metFORMIN 1000 mg oral tablet, one po pc largest meals bid, # 180, RF: 3. (Transmitted by Lacy Callahan DO) PRESCRIBE: lisinopril 2.5 mg oral tablet, one po daily, # 90, RF: 3. (Transmitted by Lacy Callahan, ) PRESCRIBE: glyBURIDE 2.5 mg oral tablet, one po qam and two po qpm, # 270, RF: 3. (Transmitted by Lacy Callahan DO) PRESCRIBE: carvedilol 6.25 mg oral tablet, one po bid, # 180, RF: 3. (Transmitted by Lacy Callahan DO) PROVIDED HM: Colorectal Cancer: Screening Given: up to date PROVIDED HM: Recommendations for Testing HgbA1C in Individuals with Diabetes Mellitus Given: 11% in Dr. Lee's office PROVIDED HM: Tobacco use counseling and interventions: non- adults Given: NI PROVIDED HM: Screening for Depression in Adults Given: 2 question screen neg PROVIDED HM: Screening for Anxiety Given: Score of zero...lots of work stress PROVIDED HM: High Blood Pressure in Adults: Screening Given: 158/90 ORDERED/ADVISED: Order Date 06-06-2019 - CMP (Complete Metabolic Panel) (K57.90, I10, E78.49, K63.5, Z00.00, R00.0, E11.65) - Lipid Panel (K57.90, I10, E78.49, K63.5, Z00.00, R00.0, E11.65) - HGBA1C (K57.90, I10, E78.49, K63.5, Z00.00, R00.0, E11.65) 03/02/2019 12:33:26 Plan printed and provided to patient: PROVIDED HM: Recommendations for Testing HgbA1C in Individuals with Diabetes Mellitus Given: 9.6% Continue gatorade zero 03/02/2019 12:33:26 Plan printed and provided to patient: PROVIDED HM: Recommendations for Testing HgbA1C in Individuals with Diabetes Mellitus Given: 9.6% Continue gatorade zero 03/02/2019 12:33:26 Plan printed and provided to patient: PROVIDED HM: Recommendations for Testing HgbA1C in Individuals with Diabetes Mellitus Given: 9.6% Continue gatorade zero 02/07/2019 14:58:18 Plan printed and provided to patient: ORDERED/ADVISED: Order Date 02-07-2019 - CBC with diff (automated) (N18.3, E11.21, E78.49, R00.0, I10) - CMP (Complete Metabolic Panel) (N18.3, E11.21, E78.49, R00.0, I10) - HGBA1C (N18.3, E11.21, E78.49, R00.0, I10) - Lipid Panel (N18.3, E11.21, E78.49, R00.0, I10) - Urine microalbumin (N18.3, E11.21, E78.49, R00.0, I10) To be done in April. 02/07/2019 14:58:18 Plan printed and provided to patient: ORDERED/ADVISED: Order Date 02-07-2019 - CBC with diff (automated) (N18.3, E11.21, E78.49, R00.0, I10) - CMP (Complete Metabolic Panel) (N18.3, E11.21, E78.49, R00.0, I10) - HGBA1C (N18.3, E11.21, E78.49, R00.0, I10) - Lipid Panel (N18.3, E11.21, E78.49, R00.0, I10) - Urine microalbumin (N18.3, E11.21, E78.49, R00.0, I10) To be done in April. 02/07/2019 14:58:18 Plan printed and provided to patient: ORDERED/ADVISED: Order Date 02-07-2019 - CBC with diff (automated) (N18.3, E11.21, E78.49, R00.0, I10) - CMP (Complete Metabolic Panel) (N18.3, E11.21, E78.49, R00.0, I10) - HGBA1C (N18.3, E11.21, E78.49, R00.0, I10) - Lipid Panel (N18.3, E11.21, E78.49, R00.0, I10) - Urine microalbumin (N18.3, E11.21, E78.49, R00.0, I10) To be done in April. 11/06/2018 09:10:54 ADDED Current Meds: Slow Mag, # 0, RF: 0. Counseling and coordination of care: time a significant factor for this patient encounter...45 minutes FTF Reviewing records from his recent hospitalization and explaining what they say to patient. Will obtain his April 11 visit that does not appear to be a part of his records. 11/06/2018 09:10:54 ADDED Current Meds: Slow Mag, # 0, RF: 0. Counseling and coordination of care: time a significant factor for this patient encounter...30minutes FTF Reviewing records from his recent hospitalization and explaining what they say to patient. Will obtain his April 11 visit that does not appear to be a part of his records. 11/06/2018 09:10:54 ADDED Current Meds: Slow Mag, # 0, RF: 0. Counseling and coordination of care: time a significant factor for this patient encounter...45 minutes FTF Reviewing records from his recent hospitalization and explaining what they say to patient. Will obtain his April 11 visit that does not appear to be a part of his records. 06/02/2018 14:48:56 Plan printed and provided to patient: PRESCRIBE: NovoLOG FlexPen 100 units/mL injectable solution, use as directed 32 units qid with meals, # 6, RF: 5. (Transmitted by Lacy Linden, DO) PRESCRIBE: Skelaxin 800 mg oral tablet, one po tid prn back pain, # 270, RF: 3. (Transmitted by Lacy Callahan, DO) PRESCRIBE: simvastatin 20 mg oral tablet, one po daily, # 90, RF: 3. (Transmitted by Lacy Callahan, DO) PRESCRIBE: NovoLOG FlexPen 100 units/mL subcutaneous solution, use as directed 32 units qid with meals, # 6 , RF: 5. PRESCRIBE: metFORMIN 1000 mg oral tablet, one po pc largest meals bid, # 180, RF: 3. (Transmitted by Lacy Callahan, DO) PRESCRIBE: lisinopril 2.5 mg oral tablet, one po daily, # 90, RF: 3. (Transmitted by Lacy Callahan, DO) PRESCRIBE: Lantus Solostar Pen 100 units/mL subcutaneous solution, 70 units sq at hs, # 15, RF: 3. (Transmitted by Lacy Callahan, DO) PRESCRIBE: carvedilol 6.25 mg oral tablet, one po bid, # 180, RF: 3. (Transmitted by Lacy Callahan, DO) PROVIDED HM: High Blood Pressure in Adults: Screening Given: 116/80 PROVIDED HM: Screening for Hepatitis C Given: neg PROVIDED HM: Screening and Behavioral Counseling Interventions in Primary Care to Reduce Alcohol Misuse in Adults Given: Ni PROVIDED HM: Screening for Depression in Adults Given: Neg PROVIDED HM: Tobacco use counseling and interventions: non- adults Given: NI 06/02/2018 14:48:56 Plan printed and provided to patient: PRESCRIBE: NovoLOG FlexPen 100 units/mL injectable solution, use as directed 32 units qid with meals, # 6, RF: 5. (Transmitted by Lacy Callahan, ) PRESCRIBE: Skelaxin 800 mg oral tablet, one po tid prn back pain, # 270, RF: 3. (Transmitted by Lacy Callahan, DO) PRESCRIBE: simvastatin 20 mg oral tablet, one po daily, # 90, RF: 3. (Transmitted by Lacy Callahan, ) PRESCRIBE: NovoLOG FlexPen 100 units/mL subcutaneous solution, use as directed 32 units qid with meals, # 6 , RF: 5. PRESCRIBE: metFORMIN 1000 mg oral tablet, one po pc largest meals bid, # 180, RF: 3. (Transmitted by Lacy Callahan DO) PRESCRIBE: lisinopril 2.5 mg oral tablet, one po daily, # 90, RF: 3. (Transmitted by Lacy Callahan, ) PRESCRIBE: Lantus Solostar Pen 100 units/mL subcutaneous solution, 70 units sq at hs, # 15, RF: 3. (Transmitted by Lacy Callahan, ) PRESCRIBE: carvedilol 6.25 mg oral tablet, one po bid, # 180, RF: 3. (Transmitted by Lacy Callahan DO) PROVIDED HM: High Blood Pressure in Adults: Screening Given: 116/80 PROVIDED HM: Screening for Hepatitis C Given: neg PROVIDED HM: Screening and Behavioral Counseling Interventions in Primary Care to Reduce Alcohol Misuse in Adults Given: Ni PROVIDED HM: Screening for Depression in Adults Given: Neg PROVIDED HM: Tobacco use counseling and interventions: non- adults Given: NI 06/02/2018 14:48:56 Plan printed and provided to patient: PRESCRIBE: NovoLOG FlexPen 100 units/mL injectable solution, use as directed 32 units qid with meals, # 6, RF: 5. (Transmitted by Lacy Callahan DO) PRESCRIBE: Skelaxin 800 mg oral tablet, one po tid prn back pain, # 270, RF: 3. (Transmitted by Lacy Callahan, DO) PRESCRIBE: simvastatin 20 mg oral tablet, one po daily, # 90, RF: 3. (Transmitted by Lacy Callahan, DO) PRESCRIBE: NovoLOG FlexPen 100 units/mL subcutaneous solution, use as directed 32 units qid with meals, # 6 , RF: 5. PRESCRIBE: metFORMIN 1000 mg oral tablet, one po pc largest meals bid, # 180, RF: 3. (Transmitted by Lacy Callahan, DO) PRESCRIBE: lisinopril 2.5 mg oral tablet, one po daily, # 90, RF: 3. (Transmitted by Lacy Callahan, DO) PRESCRIBE: Lantus Solostar Pen 100 units/mL subcutaneous solution, 70 units sq at hs, # 15, RF: 3. (Transmitted by Lacy Callahan, DO) PRESCRIBE: carvedilol 6.25 mg oral tablet, one po bid, # 180, RF: 3. (Transmitted by Lacy Callahan, ) PROVIDED HM: High Blood Pressure in Adults: Screening Given: 116/80 PROVIDED HM: Screening for Hepatitis C Given: neg PROVIDED HM: Screening and Behavioral Counseling Interventions in Primary Care to Reduce Alcohol Misuse in Adults Given: Ni PROVIDED HM: Screening for Depression in Adults Given: Neg PROVIDED HM: Tobacco use counseling and interventions: non- adults Given: NI 02/15/2018 15:06:50 Plan printed and provided to patient: ORDERED/ADVISED: Order Date 02-15-2018 - CBC with diff (automated) (N18.3, E11.21, E78.4, I10) - CMP (Complete Metabolic Panel) (N18.3, E11.21, E78.4, I10) - HGBA1C (N18.3, E11.21, E78.4, I10) - Hep C screen (N18.3, E11.21, E78.4, I10) - Lipid Panel (N18.3, E11.21, E78.4, I10) - Urine microalbumin (N18.3, E11.21, E78.4, I10) Walk walk walk. ???Yoga for stress relieft 02/15/2018 15:06:50 Plan printed and provided to patient: ORDERED/ADVISED: Order Date 02-15-2018 - CBC with diff (automated) (N18.3, E11.21, E78.4, I10) - CMP (Complete Metabolic Panel) (N18.3, E11.21, E78.4, I10) - HGBA1C (N18.3, E11.21, E78.4, I10) - Hep C screen (N18.3, E11.21, E78.4, I10) - Lipid Panel (N18.3, E11.21, E78.4, I10) - Urine microalbumin (N18.3, E11.21, E78.4, I10) Walk walk walk. ???Yoga for stress relieft 02/15/2018 15:06:50 Plan printed and provided to patient: ORDERED/ADVISED: Order Date 02-15-2018 - CBC with diff (automated) (N18.3, E11.21, E78.4, I10) - CMP (Complete Metabolic Panel) (N18.3, E11.21, E78.4, I10) - HGBA1C (N18.3, E11.21, E78.4, I10) - Hep C screen (N18.3, E11.21, E78.4, I10) - Lipid Panel (N18.3, E11.21, E78.4, I10) - Urine microalbumin (N18.3, E11.21, E78.4, I10) Walk walk walk. ???Yoga for stress relieft 11/16/2017 08:33:59 CHANGED Current Meds: Trulicity Pen 1.5 mg/0.5 mL subcutaneous solution REMOVED from Current Meds: Levoquin and proair , # 0, RF: 0. Date Prescribed: 05/27/2017 PROVIDED HM: DSME Given: will refer to class PROVIDED HM: Screening for Diabetic Retinopathy Given: [facility] in June 2017 per patient PROVIDED HM: Screening for HIV in Adolescents and Adults not at High Risk Given: Patient has refused this Decision Support. ORDERED/ADVISED: - Hep C screen ICD Codes (N18.3, E11.21, I10, R00.0) 11/16/2017 08:33:59 CHANGED Current Meds: Trulicity Pen 1.5 mg/0.5 mL subcutaneous solution REMOVED from Current Meds: Levoquin and proair , # 0, RF: 0. Date Prescribed: 05/27/2017 PROVIDED HM: DSME Given: will refer to class PROVIDED HM: Screening for Diabetic Retinopathy Given: [facility] in June 2017 per patient PROVIDED HM: Screening for HIV in Adolescents and Adults not at High Risk Given: Patient has refused this Decision Support. ORDERED/ADVISED: - Hep C screen ICD Codes (N18.3, E11.21, I10, R00.0) 11/16/2017 08:33:59 CHANGED Current Meds: Trulicity Pen 1.5 mg/0.5 mL subcutaneous solution REMOVED from Current Meds: Levoquin and proair , # 0, RF: 0. Date Prescribed: 05/27/2017 PROVIDED HM: DSME Given: will refer to class PROVIDED HM: Screening for Diabetic Retinopathy Given: [facility] in June 2017 per patient PROVIDED HM: Screening for HIV in Adolescents and Adults not at High Risk Given: Patient has refused this Decision Support. ORDERED/ADVISED: - Hep C screen ICD Codes (N18.3, E11.21, I10, R00.0) 09/09/2017 09:57:23 Plan printed and provided to patient: PRESCRIBE: Trulicity Pen 1.5 mg/0.5 mL subcutaneous solution, will take the place of his bydureon, RF: 0. ADDED Current Meds: glyBURIDE 2.5 mg oral tablet, one po qam and two po qpm, # 0, RF: 0. REMOVED from Current Meds: Bydureon 2 mg subcutaneous injection, extended release, one dose weekly on tuesday, # 0, Date Prescribed: 09/11/2014 PROVIDED HM: DSME Given: Ask: Did you know? For every 1% decrease in HGBAC, there is evidence for 21% decrease in diabetes related complication....14% decrease in risk of WI.....12%decrease risk of stroke...and a 37% decrease risk of microvascular complication(kidney failure/blindness/loss of limb). try reversing these numbers to look at risk if 3% higher than you'd like...IE 121% increase in risk of kidney failure/blindness and loss of limb. Advise: if young need tighter control....6% if possible ADA recommends <7% AACE recommend <6.5% If over 75 ok for <8% Where are you? 9.6% Assess:although better than 10% this is not great Where do you want your diabetes management to be? He would be happy with 7.9% How do you want to manage this? dedication and hard work. Attributing problem to stress. Do you understand the balance between diet/excercise/medication? How does stress impact these three things....taking meds later. Not eating out alot. Eating sandwiches at work. Cant cook at work. The tools available for management? What information do you need? How can I help you....? decreasing bread.? Bread substitute. Assist: I can get you the information/tools you desire? Can I get you the information/tools you desire? What do we have to work with? Time/Travel/Tastes/Treatments?? Arrange: Handbag Finisher? www.eatright.org Retort Setter?www.diabeteseducator.org Pharmacy/Pharmacy benefits Literature? Recipes Diabetes [place] www.diabetes.org www.ncbde.org www.diabeeseducator.org/deap www.ndep.nih.gov www.diabetes.org www.learningaboutdiabetes.org www.diabeticconnect.com www.[place] BiosurgerynoQuietly.[employer] www.diabeteswhattMediSapiensnow.com www.peersforprogress.org ORDERED/ADVISED: - CXR - PA & Lat ICD Codes (J44.1, N18.3, E11.21) 09/09/2017 09:57:23 Plan printed and provided to patient: PRESCRIBE: Trulicity Pen 1.5 mg/0.5 mL subcutaneous solution, will take the place of his bydureon, RF: 0. ADDED Current Meds: glyBURIDE 2.5 mg oral tablet, one po qam and two po qpm, # 0, RF: 0. REMOVED from Current Meds: Bydureon 2 mg subcutaneous injection, extended release, one dose weekly on tuesday, # 0, Date Prescribed: 09/11/2014 PROVIDED HM: DSME Given: Ask: Did you know? For every 1% decrease in HGBAC, there is evidence for 21% decrease in diabetes related complication....14% decrease in risk of WI.....12%decrease risk of stroke...and a 37% decrease risk of microvascular complication(kidney failure/blindness/loss of limb). try reversing these numbers to look at risk if 3% higher than you'd like...IE 121% increase in risk of kidney failure/blindness and loss of limb. Advise: if young need tighter control....6% if possible ADA recommends <7% AACE recommend <6.5% If over 75 ok for <8% Where are you? 9.6% Assess:although better than 10% this is not great Where do you want your diabetes management to be? He would be happy with 7.9% How do you want to manage this? dedication and hard work. Attributing problem to stress. Do you understand the balance between diet/excercise/medication? How does stress impact these three things....taking meds later. Not eating out alot. Eating sandwiches at work. Cant cook at work. The tools available for management? What information do you need? How can I help you....? decreasing bread.? Bread substitute. Assist: I can get you the information/tools you desire? Can I get you the information/tools you desire? What do we have to work with? Time/Travel/Tastes/Treatments?? Arrange: Handbag Finisher? www.eatright.org Retort Setter?www.diabeteseducator.org Pharmacy/Pharmacy benefits Literature? Recipes Diabetes [place] www.diabetes.org www.ncbde.org www.diabeeseducator.org/deap www.ndep.nih.gov www.diabetes.org www.learningaboutdiabetes.org www.diabeticconnect.com www.[place] Biosurgerynow.com www.diabeteswhattoknow.com www.peersforprogress.org ORDERED/ADVISED: - CXR - PA & Lat ICD Codes (J44.1, N18.3, E11.21) 09/09/2017 09:57:23 Plan printed and provided to patient: PRESCRIBE: Trulicity Pen 1.5 mg/0.5 mL subcutaneous solution, will take the place of his bydurejose, RF: 0. ADDED Current Meds: glyBURIDE 2.5 mg oral tablet, one po qam and two po qpm, # 0, RF: 0. REMOVED from Current Meds: Bydureon 2 mg subcutaneous injection, extended release, one dose weekly on tuesday, # 0, Date Prescribed: 09/11/2014 PROVIDED HM: DSME Given: Ask: Did you know? For every 1% decrease in HGBAC, there is evidence for 21% decrease in diabetes related complication....14% decrease in risk of WI.....12%decrease risk of stroke...and a 37% decrease risk of microvascular complication(kidney failure/blindness/loss of limb). try reversing these numbers to look at risk if 3% higher than you'd like...IE 121% increase in risk of kidney failure/blindness and loss of limb. Advise: if young need tighter control....6% if possible ADA recommends <7% AACE recommend <6.5% If over 75 ok for <8% Where are you? 9.6% Assess:although better than 10% this is not great Where do you want your diabetes management to be? He would be happy with 7.9% How do you want to manage this? dedication and hard work. Attributing problem to stress. Do you understand the balance between diet/excercise/medication? How does stress impact these three things....taking meds later. Not eating out alot. Eating sandwiches at work. Cant cook at work. The tools available for management? What information do you need? How can I help you....? decreasing bread.? Bread substitute. Assist: I can get you the information/tools you desire? Can I get you the information/tools you desire? What do we have to work with? Time/Travel/Tastes/Treatments?? Arrange: Handbag Finisher? www.eatright.org Retort Setter?www.diabeteseducator.org Pharmacy/Pharmacy benefits Literature? Recipes Diabetes [place] www.diabetes.org www.ncbde.org www.diabeeseducator.org/deap www.ndep.nih.gov www.diabetes.org www.learningaboutdiabetes.org www.diabeticconnect.com www.[place] BiosurgerynoQuietly.com www.diabeteswhattMediSapiensnow.com www.peersforprogress.org ORDERED/ADVISED: - CXR - PA & Lat ICD Codes (J44.1, N18.3, E11.21) 05/27/2017 15:01:05 ADDED Current Meds: Levoquin and proair , # 0, RF: 0. ADDED Current Meds: Trulicity Pen 0.75 mg/0.5 mL subcutaneous solution, will take the place of his bydureon, # 0, RF: 0. PRESCRIBE: NovoLOG FlexPen 100 units/mL subcutaneous solution, use as directed 32 units qid with meals, # 6, RF: 5. (Transmitted by Lacy Callhaan, DO) PRESCRIBE: Skelaxin 800 mg oral tablet, one po tid prn back pain, # 270, RF: 3. (Transmitted by Lacy Linden, DO) PRESCRIBE: simvastatin 20 mg oral tablet, one po daily, # 90, RF: 3. (Transmitted by Lacy Callahan, DO) PRESCRIBE: metFORMIN 1000 mg oral tablet, one po pc largest meals bid, # 180, RF: 3. (Transmitted by Lacy Linden, DO) PRESCRIBE: lisinopril 2.5 mg oral tablet, one po daily, # 90, RF: 3. (Transmitted by Lacy Callahan, DO) PRESCRIBE: Lantus Solostar Pen 100 units/mL subcutaneous solution, 70 units sq at hs, # 15, RF: 3. (Transmitted by Lacy Linden, DO) PRESCRIBE: carvedilol 6.25 mg oral tablet, one po bid, # 180, RF: 3. (Transmitted by Lacy Linden, DO) PROVIDED HM: Colorectal Cancer: Screening Given: due in 2017 PROVIDED HM: High Blood Pressure in Adults: Screening Given: 124/64 PROVIDED HM: Diabetic eye exam Given: He goes annually in June PROVIDED HM: Screening for Depression in Adults Given: Neg PROVIDED HM: Aspirin preventive medication: adults aged 50 to 59 years with a >= 10% 10-year cardiovascular risk Given: on ASA already PROVIDED HM: medication adherence Given: not an issue PROVIDED HM: Screening and Behavioral Counseling Interventions in Primary Care to Reduce Alcohol Misuse in Adults Given: no alcohol ORDERED/ADVISED: - Rabia Cullen (Cardiology) ICD Codes (N18.3, E11.21, Z00.00, R00.0, R00.0) ORDERED/ADVISED: - Custom Order (Bang has been out of work due to illness. He may return on sarah 9/26.) ORDERED/ADVISED: - BMP (Basic Metabolic Panel) ICD Codes (N18.3, E11.21, Z00.00, R00.0, R00.0) - HGBA1C ICD Codes (N18.3, E11.21, Z00.00, R00.0, R00.0) 05/27/2017 15:01:05 ADDED Current Meds: Levoquin and proair , # 0, RF: 0. ADDED Current Meds: Trulicity Pen 0.75 mg/0.5 mL subcutaneous solution, will take the place of his bydureon, # 0, RF: 0. PRESCRIBE: NovoLOG FlexPen 100 units/mL subcutaneous solution, use as directed 32 units qid with meals, # 6, RF: 5. (Transmitted by Lacy Callahan, DO) PRESCRIBE: Skelaxin 800 mg oral tablet, one po tid prn back pain, # 270, RF: 3. (Transmitted by Lacy Callahan, DO) PRESCRIBE: simvastatin 20 mg oral tablet, one po daily, # 90, RF: 3. (Transmitted by Lacy Callahan, DO) PRESCRIBE: metFORMIN 1000 mg oral tablet, one po pc largest meals bid, # 180, RF: 3. (Transmitted by Lacy Callahan, DO) PRESCRIBE: lisinopril 2.5 mg oral tablet, one po daily, # 90, RF: 3. (Transmitted by Lacy Callahan, DO) PRESCRIBE: Lantus Solostar Pen 100 units/mL subcutaneous solution, 70 units sq at hs, # 15, RF: 3. (Transmitted by Lacy Callahan, DO) PRESCRIBE: carvedilol 6.25 mg oral tablet, one po bid, # 180, RF: 3. (Transmitted by Lacy Callahan, DO) PROVIDED HM: Colorectal Cancer: Screening Given: due in 2017 PROVIDED HM: High Blood Pressure in Adults: Screening Given: 124/64 PROVIDED HM: Diabetic eye exam Given: He goes annually in June PROVIDED HM: Screening for Depression in Adults Given: Neg PROVIDED HM: Aspirin preventive medication: adults aged 50 to 59 years with a >= 10% 10-year cardiovascular risk Given: on ASA already PROVIDED HM: medication adherence Given: not an issue PROVIDED HM: Screening and Behavioral Counseling Interventions in Primary Care to Reduce Alcohol Misuse in Adults Given: no alcohol ORDERED/ADVISED: - Rabia Cullen (Cardiology) ICD Codes (N18.3, E11.21, Z00.00, R00.0, R00.0) ORDERED/ADVISED: - Custom Order (Bang has been out of work due to illness. He may return on thursday 05/31.) ORDERED/ADVISED: - BMP (Basic Metabolic Panel) ICD Codes (N18.3, E11.21, Z00.00, R00.0, R00.0) - HGBA1C ICD Codes (N18.3, E11.21, Z00.00, R00.0, R00.0) 05/27/2017 15:01:05 ADDED Current Meds: Levoquin and proair , # 0, RF: 0. ADDED Current Meds: Trulicity Pen 0.75 mg/0.5 mL subcutaneous solution, will take the place of his bydureon, # 0, RF: 0. PRESCRIBE: NovoLOG FlexPen 100 units/mL subcutaneous solution, use as directed 32 units qid with meals, # 6, RF: 5. (Transmitted by Lacy Sindy, DO) PRESCRIBE: Skelaxin 800 mg oral tablet, one po tid prn back pain, # 270, RF: 3. (Transmitted by Lacy Linden, DO) PRESCRIBE: simvastatin 20 mg oral tablet, one po daily, # 90, RF: 3. (Transmitted by Lacy Sindy, DO) PRESCRIBE: metFORMIN 1000 mg oral tablet, one po pc largest meals bid, # 180, RF: 3. (Transmitted by Lacy Sindy, DO) PRESCRIBE: lisinopril 2.5 mg oral tablet, one po daily, # 90, RF: 3. (Transmitted by Lacy Linden, DO) PRESCRIBE: Lantus Solostar Pen 100 units/mL subcutaneous solution, 70 units sq at hs, # 15, RF: 3. (Transmitted by LacyAvance Payard, DO) PRESCRIBE: carvedilol 6.25 mg oral tablet, one po bid, # 180, RF: 3. (Transmitted by LacyAvance Payard, DO) PROVIDED HM: Colorectal Cancer: Screening Given: due in 2017 PROVIDED HM: High Blood Pressure in Adults: Screening Given: 124/64 PROVIDED HM: Diabetic eye exam Given: He goes annually in June PROVIDED HM: Screening for Depression in Adults Given: Neg PROVIDED HM: Aspirin preventive medication: adults aged 50 to 59 years with a >= 10% 10-year cardiovascular risk Given: on ASA already PROVIDED HM: medication adherence Given: not an issue PROVIDED HM: Screening and Behavioral Counseling Interventions in Primary Care to Reduce Alcohol Misuse in Adults Given: no alcohol ORDERED/ADVISED: - Rabia Cullen (Cardiology) ICD Codes (N18.3, E11.21, Z00.00, R00.0, R00.0) ORDERED/ADVISED: - Custom Order (Bang has been out of work due to illness. He may return on thursday 05/31.) ORDERED/ADVISED: - BMP (Basic Metabolic Panel) ICD Codes (N18.3, E11.21, Z00.00, R00.0, R00.0) - HGBA1C ICD Codes (N18.3, E11.21, Z00.00, R00.0, R00.0) 01/28/2017 14:04:54 Plan printed and provided to patient: PROVIDED HM: High Blood Pressure in Adults: Screening Given: 126/80 PROVIDED HM: Tobacco use counseling and interventions: non- adults Given: Ni PROVIDED HM: Screening for Diabetic Neuropathy Given: not present Cauliflower breadsticks....or pizza. Cauliflower grilled cheese ORDERED/ADVISED: - CBC with diff (automated) ICD Codes (E11.21) - CMP (Complete Metabolic Panel) ICD Codes (E11.21) - HGBA1C ICD Codes (E11.21) - Lipid Panel ICD Codes (E11.21) - Urine microalbumin ICD Codes (E11.21) 01/28/2017 14:04:54 Plan printed and provided to patient: PROVIDED HM: High Blood Pressure in Adults: Screening Given: 126/80 PROVIDED HM: Tobacco use counseling and interventions: non- adults Given: Ni PROVIDED HM: Screening for Diabetic Neuropathy Given: not present Cauliflower breadsticks....or pizza. Cauliflower grilled cheese ORDERED/ADVISED: - CBC with diff (automated) ICD Codes (E11.21) - CMP (Complete Metabolic Panel) ICD Codes (E11.21) - HGBA1C ICD Codes (E11.21) - Lipid Panel ICD Codes (E11.21) - Urine microalbumin ICD Codes (E11.21) 01/28/2017 14:04:54 Plan printed and provided to patient: PROVIDED HM: High Blood Pressure in Adults: Screening Given: 126/80 PROVIDED HM: Tobacco use counseling and interventions: non- adults Given: Ni PROVIDED HM: Screening for Diabetic Neuropathy Given: not present Cauliflower breadsticks....or pizza. Cauliflower grilled cheese ORDERED/ADVISED: - CBC with diff (automated) ICD Codes (E11.21) - CMP (Complete Metabolic Panel) ICD Codes (E11.21) - HGBA1C ICD Codes (E11.21) - Lipid Panel ICD Codes (E11.21) - Urine microalbumin ICD Codes (E11.21) 10/27/2016 08:24:56 Plan printed and provided to patient: PROVIDED HM: DSME Given: Ask: Did you know? For every 1% decrease in HGBAC, there is evidence for 21% decrease in diabetes related complication....14% decrease in risk of WI.....12%decrease risk of stroke...and a 37% decrease risk of microvascular complication(kidney failure/blindness/loss of limb). Advise: if young need tighter control....6% if possible ADA recommends <7% AACE recommend <6.5% If over 75 ok for <8% Where are you? 8.4% down from 10% Assess: Where do you want your numbers to be? He would be happy if he could get it in the 7's. Stress is a big issue. How do you want to manage this? Do you understand the balance between diet/excercise/medication? yes The tools available for management? What information do you need? Assist: I can get you the information/tools you desire? Can I get you the information/tools you desire? What do we have to work with? Time/Travel/Tastes/Treatments?? work is a big issue Arrange: Handbag Finisher? www.eatright.org Retort Setter?www.diabeteseducator.org Pharmacy/Pharmacy benefits Literature? Recipes Diabetes [place] www.diabetes.org www.ncbde.org www.diabeeseducator.org/deap www.ndep.nih.gov www.diabetes.org www.learningaboutdiabetes.org www.diabeticconnect.com www.whatoknow.[employer] www.diabeteswhattoknow.com www.peersforprogress.org 7 [place] areas 1. Healthy Eating: Count Carbs/Read Labels/Measure Servings/Develop an eating plan/Set healthy eating goals. 2. Being Active: Think of things you like to do/Take it slow/Check BS levels/Keep track of Activity/Excercise with a friend/Take a class/Join an adult league 3. Monitoring: Blood sugar/BP/weight/cholesterol/kidney health/eye health/foot health 4. Taking Medication: Diabetes meds/bp meds/cholesterol meds(statin s)/vaccinations. Don't forget/Rotate sites/ 5. Problem Solving: Don't beat yourself up/Analyze your day/Learn from it/Discuss possible solutions/Try new solutions 6. Reducing Risks: Don't smoke/Visit eye doc at least once a year/Don't forget the dentist/ Take care of your feet/Listen to your body 7. Healthy Coping: Seek support/Move your body/Think positive/Be good to yourself/ [place] [employer] Diabetic Educators....7 behaviors for diabetes self management. PROVIDED HM: medication adherence Given: This is not an issue at this point. PROVIDED HM: Screening for Depression in Adults Given: neg PROVIDED HM: Screening for Diabetic Retinopathy Given: done in may and told there are no diabetes changes at [facility] 10/27/2016 08:24:56 Plan printed and provided to patient: PROVIDED HM: DSME Given: Ask: Did you know? For every 1% decrease in HGBAC, there is evidence for 21% decrease in diabetes related complication....14% decrease in risk of WI.....12%decrease risk of stroke...and a 37% decrease risk of microvascular complication(kidney failure/blindness/loss of limb). Advise: if young need tighter control....6% if possible ADA recommends <7% AACE recommend <6.5% If over 75 ok for <8% Where are you? 8.4% down from 10% Assess: Where do you want your numbers to be? He would be happy if he could get it in the 7's. Stress is a big issue. How do you want to manage this? Do you understand the balance between diet/excercise/medication? yes The tools available for management? What information do you need? Assist: I can get you the information/tools you desire? Can I get you the information/tools you desire? What do we have to work with? Time/Travel/Tastes/Treatments?? work is a big issue Arrange: Handbag Finisher? www.eatright.org Retort Setter?www.diabeteseducator.org Pharmacy/Pharmacy benefits Literature? Recipes Diabetes [place] www.diabetes.org www.ncbde.org www.diabeeseducator.org/deap www.ndep.nih.gov www.diabetes.org www.learningaboutdiabetes.org www.diabeticconnect.com www.[place] Biosurgerynow.[employer] www.diabeteswhattoknow.com www.peersforprogress.org 7 [place] 1. Healthy Eating: Count Carbs/Read Labels/Measure Servings/Develop an eating plan/Set healthy eating goals. 2. Being Active: Think of things you like to do/Take it slow/Check BS levels/Keep track of Activity/Excercise with a friend/Take a class/Join an adult league 3. Monitoring: Blood sugar/BP/weight/cholesterol/kidney health/eye health/foot health 4. Taking Medication: Diabetes meds/bp meds/cholesterol meds(statin s)/vaccinations. Don't forget/Rotate sites/ 5. Problem Solving: Don't beat yourself up/Analyze your day/Learn from it/Discuss possible solutions/Try new solutions 6. Reducing Risks: Don't smoke/Visit eye doc at least once a year/Don't forget the dentist/ Take care of your feet/Listen to your body 7. Healthy Coping: Seek support/Move your body/Think positive/Be good to yourself/ [place] [employer] Diabetic Educators....7 behaviors for diabetes self management. PROVIDED HM: medication adherence Given: This is not an issue at this point. PROVIDED HM: Screening for Depression in Adults Given: neg PROVIDED HM: Screening for Diabetic Retinopathy Given: done in may and told there are no diabetes changes at [facility] 10/27/2016 08:24:56 Plan printed and provided to patient: PROVIDED HM: DSME Given: Ask: Did you know? For every 1% decrease in HGBAC, there is evidence for 21% decrease in diabetes related complication....14% decrease in risk of WI.....12%decrease risk of stroke...and a 37% decrease risk of microvascular complication(kidney failure/blindness/loss of limb). Advise: if young need tighter control....6% if possible ADA recommends <7% AACE recommend <6.5% If over 75 ok for <8% Where are you? 8.4% down from 10% Assess: Where do you want your numbers to be? He would be happy if he could get it in the 7's. Stress is a big issue. How do you want to manage this? Do you understand the balance between diet/excercise/medication? yes The tools available for management? What information do you need? Assist: I can get you the information/tools you desire? Can I get you the information/tools you desire? What do we have to work with? Time/Travel/Tastes/Treatments?? work is a big issue Arrange: Handbag Finisher? www.eatright.org Retort Setter?www.diabeteseducator.org Pharmacy/Pharmacy benefits Literature? Recipes Diabetes [place] www.diabetes.org www.ncbde.org www.diabeeseducator.org/deap www.ndep.nih.gov www.diabetes.org www.learningaboutdiabetes.org www.diabeticconnect.com www.[place] Biosurgerynow.[employer] www.diabeteswhattoknow.com www.peersforprogress.org 7 [place] 1. Healthy Eating: Count Carbs/Read Labels/Measure Servings/Develop an eating plan/Set healthy eating goals. 2. Being Active: Think of things you like to do/Take it slow/Check BS levels/Keep track of Activity/Excercise with a friend/Take a class/Join an adult league 3. Monitoring: Blood sugar/BP/weight/cholesterol/kidney health/eye health/foot health 4. Taking Medication: Diabetes meds/bp meds/cholesterol meds(statin s)/vaccinations. Don't forget/Rotate sites/ 5. Problem Solving: Don't beat yourself up/Analyze your day/Learn from it/Discuss possible solutions/Try new solutions 6. Reducing Risks: Don't smoke/Visit eye doc at least once a year/Don't forget the dentist/ Take care of your feet/Listen to your body 7. Healthy Coping: Seek support/Move your body/Think positive/Be good to yourself/ [place] [employer] Diabetic Educators....7 behaviors for diabetes self management. PROVIDED HM: medication adherence Given: This is not an issue at this point. PROVIDED HM: Screening for Depression in Adults Given: neg PROVIDED HM: Screening for Diabetic Retinopathy Given: done in may and told there are no diabetes changes at [facility] 07/26/2016 08:59:47 Plan printed and provided to patient: Plan is to stop eating crap. Always have fruit with you as an alternative to bread. HgBac 9.3% ORDERED/ADVISED: - HGBA1C ICD Codes (E11.21) 07/26/2016 08:59:47 Plan printed and provided to patient: Plan is to stop eating crap. Always have fruit with you as an alternative to bread. HgBac 9.3% ORDERED/ADVISED: - HGBA1C ICD Codes (E11.21) 07/26/2016 08:59:47 Plan printed and provided to patient: Plan is to stop eating crap. Always have fruit with you as an alternative to bread. HgBac 9.3% ORDERED/ADVISED: - HGBA1C ICD Codes (E11.21) 06/21/2016 15:32:20 PRESCRIBE: NovoLOG FlexPen 100 units/mL subcutaneous solution, use as directed 32 units qid with meals, # 6, RF: 5. (Transmitted by Lacy Callahan, ) PRESCRIBE: metFORMIN 1000 mg oral tablet, one po pc largest meals bid, # 180, RF: 3. (Transmitted by Lacy Callahan, DO) PRESCRIBE: carvedilol 6.25 mg oral tablet, one po bid, # 180, RF: 3. (Transmitted by Lacy Callahan, ) PRESCRIBE: Lantus Solostar Pen 100 units/mL subcutaneous solution, 70 units sq at hs, # 15, RF: 3. (Transmitted by Lacy Callahan, DO) CHANGED Current Meds: Vitamin D 5000 ORDERED/ADVISED: - HGBA1C ICD Codes (E11.21) 06/21/2016 15:32:20 PRESCRIBE: NovoLOG FlexPen 100 units/mL subcutaneous solution, use as directed 32 units qid with meals, # 6, RF: 5. (Transmitted by Lacy Sindy, [place]) PRESCRIBE: metFORMIN 1000 mg oral tablet, one po pc largest meals bid, # 180, RF: 3. (Transmitted by Lacy Callahan, [place]) PRESCRIBE: carvedilol 6.25 mg oral tablet, one po bid, # 180, RF: 3. (Transmitted by Lcay Sindy, [place]) PRESCRIBE: Lantus Solostar Pen 100 units/mL subcutaneous solution, 70 units sq at hs, # 15, RF: 3. (Transmitted by Lacy Sindy, [place]) CHANGED Current Meds: Vitamin D 5000 ORDERED/ADVISED: - HGBA1C ICD Codes (E11.21) 06/21/2016 15:32:20 PRESCRIBE: NovoLOG FlexPen 100 units/mL subcutaneous solution, use as directed 32 units qid with meals, # 6, RF: 5. (Transmitted by Lacy Sindy, [place]) PRESCRIBE: metFORMIN 1000 mg oral tablet, one po pc largest meals bid, # 180, RF: 3. (Transmitted by Lacy Callahan, ) PRESCRIBE: carvedilol 6.25 mg oral tablet, one po bid, # 180, RF: 3. (Transmitted by Alcy Linden, [place]) PRESCRIBE: Lantus Solostar Pen 100 units/mL subcutaneous solution, 70 units sq at hs, # 15, RF: 3. (Transmitted by Lacy Linden, ) CHANGED Current Meds: Vitamin D 5000 ORDERED/ADVISED: - HGBA1C ICD Codes (E11.21) 03/19/2016 14:34:02 Plan printed and provided to patient: PRESCRIBE: lisinopril 2.5 mg oral tablet, one po daily, # 90, RF: 3. PRESCRIBE: Skelaxin 800 mg oral tablet, one po tid prn back pain, # 270, RF: 3. (Transmitted by Lacy Callahan, ) PRESCRIBE: simvastatin 20 mg oral tablet, one po daily, # 90, RF: 3. (Transmitted by Lacy Callahan, ) PRESCRIBE: lisinopril 2.5 mg oral tablet, one po daily, # 90, RF: 3. (Transmitted by Lacy aCllahan, ) ORDERED/ADVISED: - CBC with diff (automated) ICD Codes (R52, E11.21, I10, H81.09, R00.0, G60.9) - CMP (Complete Metabolic Panel) ICD Codes (R52, E11.21, I10, H81.09, R00.0, G60.9) - Lipid Panel ICD Codes (R52, E11.21, I10, H81.09, R00.0, G60.9) - HGBA1C ICD Codes (R52, E11.21, I10, H81.09, R00.0, G60.9) - TSH ICD Codes (R52, E11.21, I10, H81.09, R00.0, G60.9) - Urine microalbumin ICD Codes (R52, E11.21, I10, H81.09, R00.0, G60.9) PROVIDED HM: Healthy Diet and Physical Activity: Counseling Adults with High Risk of CVD Given: Urged to walk at least 3 times/week and eat a more plant based diet 12/19/2015 14:04:40 Plan printed and provided to patient: REMOVED from Current Meds: carvedilol 3.125 mg oral tablet, one po bid, # 0, Date Prescribed: 09/15/2015 ADDED Current Meds: carvedilol 6.25 mg oral tablet, one po bid, # 0, PROVIDED HM: Counseling to Prevent Tobacco Use and Tobacco-Caused Disease in Adults and Women Given: NI PROVIDED HM: Diabetic eye exam Given: done in June PROVIDED HM: Screening for High Blood Pressure in Adults Given: 138/80 PROVIDED HM: Screening for Colorectal Cancer in Adults Aged 50-75 yrs Given: done Aug 2015 and needing recheck in 3 years. PROVIDED HM: Screening for Diabetic Nephropathy Given: present and seeing wash house supervisor PROVIDED HM: Screening for Diabetic Neuropathy Given: Not present PROVIDED HM: Recommendations for Testing HgbA1C in Individuals with Diabetes Mellitus Given: 8.0% in Oct 2015 PROVIDED HM: Recommendations for Diabetic Foot Care Given: doing well and refusing podiatry appt ORDERED/ADVISED: - HGBA1C ICD Codes (E11.21) He will call for a lab order in 3mon 09/15/2015 14:03:38 PRESCRIBE: lisinopril 2.5 mg oral tablet, one po daily, # 90, RF: 1. (Transmitted by Lacy Callahan DO) Plan printed and provided to patient: ADDED Current Meds: carvedilol 3.125 mg oral tablet, one po bid, # 0, PRESCRIBE: lisinopril 2.5 mg oral tablet, one po daily, # 0, ORDERED/ADVISED: - BMP (Basic Metabolic Panel) ICD Codes (E11.21, R00.0, I10) - HgA1c ICD Codes (E11.21, R00.0, I10) 06/13/2015 15:00:29 Plan printed and provided to patient: PROVIDED VACCINATION: 1 dose of Afluria, 0.5 mL IM in the Left Deltoid (Mfg: [facility] lot no. [id number], expires 03/04/2016) PROVIDED HM: Screening for Lipid Disorders in Adults (Male) Given: LDL 55 PROVIDED: Patient Education (06/13/2015)VIS ORDERED/ADVISED: - Pito Miller (Surgery) (colonoscopy) ORDERED/ADVISED: - EKG ICD Codes (O36.8990, K86.1, E11.40, E11.21, I10) ORDERED/ADVISED: - CBC with diff (automated) - BMP (Basic Metabolic Panel) - HgA1c - TSH ICD Codes (O36.8990, K86.1, E11.40, E11.21) CLINICAL SUMMARY: Declined by Patient (06/13/2015) 03/14/2015 15:06:01 Plan printed and provided to patient: PRESCRIBE: Skelaxin 800 mg oral tablet, one po tid prn back pain, # 270, RF: 3. (Transmitted by Lacy Callahan DO) PRESCRIBE: simvastatin 20 mg oral tablet, one po daily, # 90, RF: 3. (Transmitted by Lacy Callahan DO) ORDERED/ADVISED: - CMP (Basic Metabolic Panel) ICD Codes (585.3, 250.42, 272.4) - HgA1c ICD Codes (585.3, 250.42, 272.4) - Urine microalbumin ICD Codes (585.3, 250.42, 272.4) - CBC with diff (automated) ICD Codes (585.3, 250.42, 272.4) PSA ORDERED/ADVISED: - Pito Miller (Surgery) (due for colonoscopy after may) PROVIDED HM: Recommendations for Testing HgbA1C in Individuals with Diabetes Mellitus Given: 7.5% in 12/09/2014 09:07:50 Instructions printed and provided to patient: REMOVED from Current Meds: Zofran 8mg, one po daily, # 0, Date Prescribed: 02/15/2014 ADDED Current Meds: Jardiance 25 mg oral tablet, one po daily, # 0, PROVIDED HM: Counseling to Prevent Tobacco Use and Tobacco-Caused Disease in Adults and Women Given: NI PROVIDED HM: Recommendations for Diabetic Foot Care Given: No problems PROVIDED HM: Screening for Diabetic Nephropathy Given: present and seeing Dr. Perez PROVIDED HM: Screening for Diabetic Neuropathy Given: not present PROVIDED HM: Screening for Colorectal Cancer in Adults Aged 50-75 yrs Given: it is 10 years this year ORDERED/ADVISED: - CBC with diff (automated) ICD9 Codes (585.3, 250.42, 272.4) - CMP (Complete Metabolic Panel) ICD9 Codes (585.3, 250.42, 272.4) - HgA1c ICD9 Codes (585.3, 250.42, 272.4) - Lipid Panel ICD9 Codes (585.3, 250.42, 272.4) CLINICAL SUMMARY: Declined by Patient (12/09/2014) 09/11/2014 08:27:54 ADDED Current Meds: metFORMIN 1000 mg oral tablet, one po pc largest meals bid, # 0, ADDED Current Meds: Bydureon 2 mg subcutaneous injection, extended release, one dose weekly on tuesday, # 0, ORDERED/ADVISED: - HGA1C Order ICD9 Codes (585.1, 577.1, 250.42) - BMP (Basic Metabolic Panel) ICD9 Codes (585.1, 577.1, 250.42) 06/21/2014 11:50:09 Instructions printed and provided to patient: PROVIDED HM: Recommendations for Testing HgbA1C in Individuals with Diabetes Mellitus Given: 12.1% ORDERED/ADVISED: - Custom Order (Bang may return to work without restrictions. ) PROVIDED HM: Recommendations for Testing HgbA1C in Individuals with Diabetes Mellitus Given: 12.1 % the first part of June. advised to increase his meal coverage to 25 and may increase further. He is seeing Dr. Lee in a couple of weeks. 06/03/2014 08:29:52 Instructions printed and provided to patient: ORDERED/ADVISED: - HgAc ICD9 Codes (250.42) PROVIDED VACCINATION: 1 dose of Afluria, 0.5 ml IM in the Left Deltoid (Mfg: [facility] lot no. [id number], expires 01/08/2015) 04/29/2014 09:01:16 Instructions printed and provided to patient: REMOVED from Current Meds: HumaLOG KwikPen 100 units/mL subcutaneous solution, use as directed 10 units with largest meal, # 5, RF: 5. (Transmitted by Lacy Callahan DO) Date Prescribed: 03/27/2014 DISCONTINUE: NovoLOG PenFill 100 units/mL subcutaneous solution use as directed 10 units with largest meal, REASON: doesn't have pen PRESCRIBE: NovoLOG FlexPen 100 units/mL subcutaneous solution, use as directed 10 units with largest meal, # 3, RF: 5. (Transmitted by Lacy Callahan DO) We were going to give him a flushot but last year he got it on 05/16 so they wont pay unless a full 12 months. 04/01/2014 09:00:34 ADDED Current Meds: ASA 325mg, daily, # 0, REMOVED from Current Meds: Baby ASA 81mg, one po daily, # 0, Date Prescribed: 10/17/2009 Instructions printed and provided to patient: REMOVED from Current Meds: metaclopramide 5mg, one po bid ac and hs, # 0, Date Prescribed: 03/04/2014 ADDED Current Meds: Vitamin D 5000, one daily, # 0, REMOVED from Current Meds: cholecalciferol 50,000 intl units oral capsule, one po weekly, # 12, RF: 3. (Transmitted by Lacy Callahan DO) Date Prescribed: 10/31/2013 CHANGED Current Meds: Lantus Solostar Pen 100 units/mL subcutaneous solution REMOVED from Current Meds: Arthrotec 75 mg-200 mcg oral tablet, one po bid prn joint pain, # 180, RF: 3. (Transmitted by Lacy Callahan DO) Date Prescribed: 10/31/2013 We are increasing his lantus to 65 and he will continue humalog at 10 units with his lunche. We will recheck in a month unless fasting sugars remain over 200. Our goal is to get his am sugar to about 140-150 before breakfast. When we acheive that goal we will work on the before supper sugar. 30minutes FTF discussing his diabetes mgmt and plans. 03/18/2014 09:18:45 Instructions printed and provided to patient: REMOVED from Current Meds: lisinopril 2.5 mg oral tablet, one po daily, # 0, Date Prescribed: 03/04/2014 ADDED Current Meds: nortriptyline 25 mg oral capsule, one po daily hs , # 0, REMOVED from Current Meds: metFORMIN 500 mg oral tablet, one po pc supper, # 0, Date Prescribed: 03/04/2014 He is advised to stop using his diclofenac except if he has severe pain, he can use it on occassion. He is going to have to have meal coverage with insulin now. His FBS this am was 284. I am going to give him a humalog today to use for meal coverage. His dose can be based on his sugar before his meals or he can count carbs. /We discussed counting his carbs with his meals today. We will adjust his dose depending on how his sugars are running ORDERED/ADVISED: - Custom Order (Sliding Scale Insulin Doses for Fast Acting Meal Coverage. Check Blood Sugar BEFORE EACH MEAL Blood Glucose Level Insulin Dose 0-75..............................................No coverage 76-100.........................................." 101-150.......................................3 151-200........................................4 201-250........................................5 251-300........................................7 301-350........................................10 351-400........................................15 If Blood Sugar is over 400, please call me [phone] Lantus Insulin Bedtime dose:) ICD9 Codes (250.12) 60 units. will increase once he starts covering his meals if FBS remains high. Return in 2 weeks. 03/04/2014 15:00:23 Instructions printed and provided to patient: ADDED Current Meds: metaclopramide 5mg, one po bid ac and hs, # 0, REMOVED from Current Meds: Glyburide 10mg, one po bid, # 0, Date Prescribed: 02/15/2014 CHANGED Current Meds: Lantus Solostar Pen 100 units/mL subcutaneous solution ADDED Current Meds: metFORMIN 500 mg oral tablet, one po pc supper, # 0, REMOVED from Current Meds: metFORMIN 1000 mg oral tablet, one in am and one and a half qpm, # 0, RF: 3. Date Prescribed: 10/31/2013 ADDED Current Meds: lisinopril 2.5 mg oral tablet, one po daily, # 0, ORDERED/ADVISED: - Lipid Panel ICD9 Codes (272.4) PROVIDED HM: Recommendations for Testing HgbA1C in Individuals with Diabetes Mellitus Given: 8.4% 02/09/14 50% of this (30 minute) visit was spent discussing the diagnosis, natural history of the disease, risks/benefits of and various treatment options. nutriton/meds/labs etc. 02/15/2014 15:11:42 REMOVED from Current Meds: acetaZOLAMIDE 125 mg oral tablet, one po bid, # 0, Date Prescribed: 02/04/2014 I discussed this with Dr. Brooke. Dr. Lee was out of town. The acetazolamide does not seem to be helping and the renal failure and hyperkalemia occurred exactly right after it was started so after discussion with Dr Brooke this was stopped today. He is back on metformin per Dr. Fish yesterday. ORDERED/ADVISED: - BMP (Basic Metabolic Panel) (Metabolic Acidosis) ICD9 Codes (386.01, 585.3, 577.1, 250.12) 60minutes FTF 02/04/2014 08:50:37 Instructions printed and provided to patient: He is advised today to cut his atenolol 25mg in half. He should be able to come off that if his bp remains as low as it is. He is advised that after 7-10 days he can stop this drug as long as his bp stays well controlled ORDERED/ADVISED: - CBC with diff (automated) ICD9 Codes (386.01, 250.62, 780.4, 272.4, 401.9) - CMP (Complete Metabolic Panel) ICD9 Codes (386.01, 250.62, 780.4, 272.4, 401.9) - HgAc ICD9 Codes (386.01, 250.62, 780.4, 272.4, 401.9) - Lipase ICD9 Codes (386.01, 250.62, 780.4, 272.4, 401.9) - Lipid Panel ICD9 Codes (386.01, 250.62, 780.4, 272.4, 401.9) - Urine microalbumin ICD9 Codes (386.01, 250.62, 780.4, 272.4, 401.9) - Amylas/Lipase (chronic pancreatitis) ICD9 Codes (386.01, 250.62, 780.4, 272.4, 401.9) 30minutes FTF 12/17/2013 10:43:13 ORDERED/ADVISED: - CBC with diff (automated) ICD9 Codes (386.11, 577.1, 250.62, 780.4, 237.2, 272.4, 401.9) - CMP (Complete Metabolic Panel) ICD9 Codes (386.11, 577.1, 250.62, 780.4, 237.2, 272.4, 401.9) - HgA1c ICD9 Codes (386.11, 577.1, 250.62, 780.4, 237.2, 272.4, 401.9) - Lipid Panel ICD9 Codes (386.11, 577.1, 250.62, 780.4, 237.2, 272.4, 401.9) - Lipase ICD9 Codes (386.11, 577.1, 250.62, 780.4, 237.2, 272.4, 401.9) - TSH ICD9 Codes (386.11, 577.1, 250.62, 780.4, 237.2, 272.4, 401.9) - Urine microalbumin ICD9 Codes (386.11, 577.1, 250.62, 780.4, 237.2, 272.4, 401.9) 11/21/2013 10:51:50 Instructions printed and provided to patient: PRESCRIBE: Flonase 50 mcg/inh nasal spray, two sprays each nostril once daily, # 1, RF: 5. (Transmitted by Lacy Linden, DO) PROVIDED HM: Recommendations for Testing HgbA1C in Individuals with Diabetes Mellitus Given: 10.2% 10/1910/31/2013 08:33:10 Instructions printed and provided to patient: PRESCRIBE: BD Pen Needle Mini U/F, as directed, # 100, RF: 3. (Transmitted by Lacy Callahan, DO) PRESCRIBE: Lantus Solostar Pen 100 units/mL subcutaneous solution, 70 units hs daily, # 15, RF: 3. (Transmitted by Lacy Linden, DO) PRESCRIBE: Skelaxin 800 mg oral tablet, one po tid prn back pain, # 270, RF: 3. (Transmitted by Lacy Sindy, DO) PRESCRIBE: simvastatin 20 mg oral tablet, one po daily, # 90, RF: 3. (Transmitted by Lacy Linden, DO) PRESCRIBE: metFORMIN 1000 mg oral tablet, one and one half po qam and one qpm, # 270, RF: 3. (Transmitted by Lacy Linden, DO) PRESCRIBE: lisinopril 30 mg oral tablet, one po daily, # 90, RF: 3. (Transmitted by Lacy Sindy, DO) PRESCRIBE: Invokana 300 mg oral tablet, one po daily, # 90, RF: 3. (Transmitted by Lacy Linden, DO) PRESCRIBE: cholecalciferol 50,000 intl units oral capsule, one po weekly, # 12, RF: 3. (Transmitted by Lacy Callahan, DO) PRESCRIBE: atenolol 25 mg oral tablet, one po daily, # 90, RF: 3. (Transmitted by Lacy Sindy, DO) PRESCRIBE: Arthrotec 75 mg-200 mcg oral tablet, one po bid prn joint pain, # 180, RF: 3. (Transmitted by Lacy Callahan DO) PRESCRIBE: Tamiflu 75 mg oral capsule, one po bid, # 10, RF: 0. (Transmitted by Lacy Callahan DO) PROVIDED HM: Counseling to Prevent Tobacco Use and Tobacco-Caused Disease in Adults and Women Given: NI PROVIDED HM: Screening for High Blood Pressure in Adults Given: 142/78 PROVIDED HM: Screening for Lipid Disorders in Adults (Male) Given: LDL December PROVIDED HM: Screening for Diabetic Nephropathy Given: present done 08/16 and due to be repeated, ordered today PROVIDED HM: Screening for Diabetic Neuropathy Given: Not present PROVIDED HM: Screening for Diabetic Retinopathy Given: may 2013 PROVIDED HM: Recommendations for Diabetic Foot Care Given: No problems PROVIDED HM: Screening for Colorectal Cancer in Adults Aged 50-75 yrs Given: due next year REVIEWED EBM: [facility]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 Rest, fluids, tylenol, good handwashing, no work until better. ORDERED/ADVISED: - CBC with diff (automated) ICD9 Codes (585.1, 577.1, 250.02, 487, 237.2, 401.9) - CMP (Complete Metabolic Panel) ICD9 Codes (585.1, 577.1, 250.02, 487, 237.2, 401.9) - Lipid Panel ICD9 Codes (585.1, 577.1, 250.02, 487, 237.2, 401.9) - Urine microalbumin ICD9 Codes (585.1, 577.1, 250.02, 487, 237.2, 401.9) - TSH (fatigue and malaise) ICD9 Codes (585.1, 577.1, 250.02, 487, 237.2, 401.9) - Lipase ICD9 Codes (585.1, 577.1, 250.02, 487, 237.2, 401.9) 08/01/2013 08:46:35 PRESCRIBE: Lantus Solostar Pen 100 units/mL subcutaneous solution, 70 units hs daily, # 15, RF: 3. (Transmitted by Lacy Callahan DO) PROVIDED HM: Recommendations for Testing HgbA1C in Individuals with Diabetes Mellitus Given: hgac 9.2% in june ORDERED/ADVISED: - HGA1C ICD9 Codes (250.02, 401.0, 401.9) 50% of this visit was spent discussing the diagnosis, natural history of the disease, risks/benefits of and various treatment options. discussion regarding his diabetes and adrenal tumor and upcoming surgery. He is due for hgac in september and is given an order for that too. over 30 min 05/16/2013 16:17:18 Instructions printed and provided to patient: ORDERED/ADVISED: - Sarah Lee (Endocrinology) (myelolipoma left adrenal/ recemt pancreatitis) ICD9 Codes (250.00, 401.9) PROVIDED VACCINATION: 1 dose of Afluria, 0.5 ml IM in the L DELTOID (g: L lot no. [id number], expires 02/22/2014) ORDERED/ADVISED: - HGA1C ICD9 Codes (250.00, 401.9) 04/13/2013 14:32:12 ORDERED/ADVISED: - CT - Abdomen ICD9 Codes (577.1) - CT - Pelvis (Abdomenal pain/acute and chronic pancreatitis. ) ICD9 Codes (577.1) 03/23/2013 14:31:37 Instructions printed and provided to patient: ORDERED/ADVISED: - CMP (Complete Metabolic Panel) ICD9 Codes (577.1, 250.02) - Lipase ICD9 Codes (577.1, 250.02) Please check your sugar every evening before supper and return in two weeks with those readings. 03/02/2013 11:29:36 PROVIDED HM: Recommendations for Testing HgbA1C in Individuals with Diabetes Mellitus Given: 9.7% ORDERED/ADVISED: - Amylas/Lipase ICD9 Codes (491, 250.02, 401.9) - CBC with diff (automated) ICD9 Codes (491, 250.02, 401.9) He is feeling better and I have advised him to hold off on the CT scan until we repeat his enzyms. He is advised to stop his Januvia and he is going to increase his insulin. I w ill be rechecking him when the labs return. He will need a CT scan but I don't want to do it with his lipase so high right now. 02/02/2013 15:29:46 PRESCRIBE: BD Pen Needle Mini U/F, as directed, # 100, RF: 3. (Transmitted by Lacy Callahan, DO) PRESCRIBE: Skelaxin 800 mg oral tablet, one po tid prn back pain, # 270, RF: 3. (Transmitted by Lacy Callahan, DO) PRESCRIBE: simvastatin 20 mg oral tablet, one po daily, # 90, RF: 3. (Transmitted by Lacy Callahan, DO) PRESCRIBE: metformin 1000 mg oral tablet, one and one half po qam and one qpm, # 270, RF: 3. (Transmitted by Lacy Callahan, DO) PRESCRIBE: lisinopril 30 mg oral tablet, one po daily, # 90, RF: 3. (Transmitted by Lacy Callahan, DO) PRESCRIBE: Lantus Solostar Pen 100 units/mL subcutaneous solution, 60 units sq qhs, # 15, RF: 3. (Transmitted by Lacy Callahan, DO) PRESCRIBE: Januvia 100 mg oral tablet, one po daily, # 90, RF: 3. (Transmitted by Lacy Callahan, DO) PRESCRIBE: atenolol 25 mg oral tablet, one po daily, # 90, RF: 3. (Transmitted by Lacy Callahan, DO) PRESCRIBE: Arthrotec 75 mg-200 mcg oral tablet, one po bid prn joint pain, # 18 0, RF: 3. (Transmitted by Lacy Callahan, DO) Instructions printed and provided to patient: PRESCRIBE: BD ultrafine needles for solostar pen, as directed, # 100, RF: 3. PRESCRIBE: Lantus Solostar Pen 100 units/mL subcutaneous solution, 60 units sq qhs, # 15, RF: 3. PROVIDED HM: Recommendations for Diabetic Foot Care Given: No problems PROVIDED HM: Screening for Diabetic Nephropathy Given: done 08/16 PROVIDED HM: Screening for Diabetic Neuropathy Given: not present PROVIDED HM: Screening for Diabetic Retinopathy Given: scheduled for this summer. he goes every two years. PROVIDED HM: Screening for Lipid Disorders in Adults (Male) Given: not interpretable due to high triglycerides. PROVIDED HM: Counseling to Prevent Tobacco Use and Tobacco-Caused Disease in Adults Given: NI PROVIDED HM: Screening for Colorectal Cancer in Adults Aged 50-75 yrs Given: done by Dr. Miller 2004 ORDERED/ADVISED: - Lipid Panel ICD9 Codes (585.1, 250.02, 401.9) - HgA1c ICD9 Codes (585.1, 250.02, 401.9) PROVIDED HM: Recommendations for Testing HgbA1C in Individuals with Diabetes Mellitus Given: 9.4% ORDERED/ADVISED: - HgAc ICD9 Codes (585.1, 250.02, 401.9) 10/30/2012 08:35:21 Instructions printed and provided to patient: PRESCRIBE: BD ultrafine needles for solostar pen, as directed, # 100, RF: 3. PRESCRIBE: Lantus Solostar Pen 100 units/mL subcutaneous solution, 60 units sq qhs, # 15, RF: 3. PROVIDED HM: Recommendations for Diabetic Foot Care Given: No problems PROVIDED HM: Screening for Diabetic Nephropathy Given: done 08/16 PROVIDED HM: Screening for Diabetic Neuropathy Given: not present PROVIDED HM: Screening for Diabetic Retinopathy Given: scheduled for this summer. he goes every two years. PROVIDED HM: Screening for Lipid Disorders in Adults (Male) Given: not interpretable due to high triglycerides. PROVIDED HM: Counseling to Prevent Tobacco Use and Tobacco-Caused Disease in Adults Given: NI PROVIDED HM: Screening for Colorectal Cancer in Adults Aged 50-75 yrs Given: done by Dr. Miller 2004 ORDERED/ADVISED: - Lipid Panel ICD9 Codes (585.1, 250.02, 401.9) - HgA1c ICD9 Codes (585.1, 250.02, 401.9) 07/31/2012 08:34:07 Instructions printed and provided to patient: PRESCRIBE: Skelaxin 800 mg oral tablet, one po tid prn back pain, # 45, RF: 0. (Transmitted by Lacy Callahan DO) PRESCRIBE: Skelaxin 800 mg oral tablet, one po tid prn back pain, # 270, RF: 1. (Transmitted by Lacy Callahan DO) PROVIDED HM: Recommendations for Testing HgbA1C in Individuals with Diabetes Mellitus Given: 6.8% ORDERED/ADVISED: - Urine microalbumin ICD9 Codes (250.02, 715.90, 272.4, 401.9) ORDERED/ADVISED: - CBC with diff (automated) ICD9 Codes (250.02, 715.90, 272.4, 401.9) - CMP (Complete Metabolic Panel) ICD9 Codes (250.02, 715.90, 272.4, 401.9) - Lipid Panel ICD9 Codes (250.02, 715.90, 272.4, 401.9) He is commended on his weight loss and hgac of 6.8%. 04/28/2012 08:54:32 Instructions printed and provided to patient: PRESCRIBE: Augmentin 875 mg oral tablet, one po bid, # 20, RF: 0. (Transmitted by Lacy Callahan, DO) Try zyrtec for allergies. PROVIDED VACCINATION: 1 dose of Fluzone, 0.5 ml IM in the L DELTOID (Mfg: [employer] lot no. [id number], expires 03/04/2013) 01/28/2012 08:32:04 Instructions printed and provided to patient: PRESCRIBE: Skelaxin 800 mg oral tablet, one po tid prn back pain, # 90, RF: 3. (Transmitted by Lacy Callahan, DO) PRESCRIBE: simvastatin 20 mg oral tablet, one po daily, # 90, RF: 3. (Transmitted by Lacy Callahan, DO) PRESCRIBE: metformin 1000 mg oral tablet, one and one half po qam and one qpm, # 225, RF: 3. (Transmitted by Lacy Linden, DO) PRESCRIBE: lisinopril 30 mg oral tablet, one po daily, # 90, RF: 3. (Transmitted by Lacy Callahan, DO) PRESCRIBE: Lantus Solostar Pen 100 units/mL subcutaneous solution, 60 units sq qhs, # 15, RF: 3. (Transmitted by Lacy Callahan, DO) PRESCRIBE: Januvia 100 mg oral tablet, one po daily, # 90, RF: 3. (Transmitted by Lacy Sindy, DO) PRESCRIBE: cholecalciferol 50,000 intl units oral capsule, one po weekly, # 12, RF: 3. (Transmitted by Lacy Linden, DO) PRESCRIBE: Arthrotec 75 mg-200 mcg oral tablet, one po bid prn joint pain, # 180, RF: 3. (Transmitted by Lacy Sindy, DO) DISCONTINUE: famotidine 20 mg oral tablet one po bid, prn indigestion PROVIDED HM: Recommendations for Testing HgbA1C in Individuals with Diabetes Mellitus Given: 12/15 8.6% I am not sure why he needs scripts as they were all written not more than 4 months ago. 11/01/2011 08:43:13 Instructions printed and provided to patient: PRESCRIBE: cholecalciferol 50,000 intl units oral capsule, one po weekly, # 12, RF: 3. (Transmitted by Lacy Callahan, ) PRESCRIBE: Lantus Solostar Pen 100 units/mL subcutaneous solution, 60 units sq qhs, # 3, RF: 3. (Transmitted by Lacy Callahan, ) ORDERED/ADVISED: - F/U 3 months ICD9 Codes (466.0, 250.02, 272.4, 401.9, 079.99) do labs first. ORDERED/ADVISED: - HgA1c ICD9 Codes (466.0, 250.02, 272.4, 401.9, 079.99) - BMP (Basic Metabolic Panel) ICD9 Codes (466.0, 250.02, 272.4, 401.9, 079.99) 10/13/2011 08:40:23 Instructions printed and provided to patient: PRESCRIBE: metformin 1000 mg oral tablet, one and one half po qam and one qpm, # 225, RF: 3. (Transmitted by Lacy Callahan, ) PRESCRIBE: Sugar Free robitussin AC, one or two tsp po qid prn cough, # 200, RF: 1. PROVIDED HM: Screening for Diabetic Neuropathy Given: Not present but no hair growth. PROVIDED HM: Screening for Diabetic Retinopathy Given: done may 2011 PROVIDED HM: Recommendations for Testing HgbA1C in Individuals with Diabetes Mellitus Given: 9.6% Hgac ORDERED/ADVISED: - HgAc ICD9 Codes (250.02, V04.81, 272.4, 401.9) - Serum phosphate, 25 hydroxy Vitamin D, intact parathyroid hormone. ICD9 Codes (250.02, V04.81, 272.4, 401.9) He will check his fasting sugars and before supper sugars for two weeks and return for follow up. He is not taking the half metformin in the am. He says he has only been taking two. 50% of this visit was spent discussing the diagnosis, natural history of the disease, risks/benefits of and various treatment options. Of which there are few other than meal insulin coverage. We discussed CKD too 08/13/2011 08:37:34 Instructions printed and provided to patient: PRESCRIBE: Skelaxin 800 mg oral tablet, one po tid prn back pain, # 270, RF: 3. PRESCRIBE: famotidine 20 mg oral tablet, one po bid, prn indigestion, # 60, RF: 1. (Transmitted by Lacy Callahan DO) PRESCRIBE: BD ultrafine needles for solostar pen, as directed, # 100, RF: 3. (Transmitted by Lacy Callahan DO) PRESCRIBE: simvastatin 20 mg oral tablet, one po daily, # 90, RF: 3. (Transmitted by Lacy Callahan, ) PRESCRIBE: lisinopril 30 mg oral tablet, one po daily, # 90, RF: 3. (Transmitted by Lacy Callahan DO) PRESCRIBE: Lantus Solostar Pen 100 units/mL subcutaneous solution, 50 units sq q hs, # 3, RF: 3. (Transmitted by Lacy Callahan DO) PRESCRIBE: Januvia 100 mg oral tablet, one po daily, # 90, RF: 3. (Transmitted by Lacy Callahan DO) PRESCRIBE: Arthrotec 75 mg-200 mcg oral tablet, one po bid prn joint pain, # 180, RF: 3. (Transmitted by Lacy Callahan DO) PRESCRIBE: atenolol 25 mg oral tablet, one po daily, # 90, RF: 3. (Transmitted by Lacy Callahan DO) PROVIDED HM: Aspirin for the Primary Prevention of Myocardial Infarction Given: Longstanding PROVIDED HM: Counseling to Prevent Tobacco Use and Tobacco-Caused Disease in Adults Given: NI PROVIDED HM: Screening for High Blood Pressure in Adults Given: 116/78 PROVIDED HM: Screening for Lipid Disorders in Adults (Male) Given: LDL 58 PROVIDED HM: Screening for Diabetic Nephropathy Given: Positive. Done recently PROVIDED HM: Recommendations for Testing HgbA1C in Individuals with Diabetes Mellitus Given: 10.3% 07/16 PROVIDED HM: Screening for Colorectal Cancer in Adults Aged 50-75 yrs Given: 2004 neg PROVIDED HM: Screening for Diabetic Retinopathy Given: done at [place] in may PROVIDED HM: Recommendations for Diabetic Foot Care Given: NI PROVIDED HM: Screening for Diabetic Neuropathy Given: NI PROVIDED VACCINATION: 1 dose of Flulaval, 0.5 ml IM in the L DELTOID (Mfg: [employer] lot no. [id number], expires 08/18/2011) 50% of this visit was spent discussing the diagnosis, natural history of the disease, risks/benefits of and various treatment options. Extensive discussion regarding the diagnosis of diabetes , its natural history, nutrition and excercise and medication effects on blood sugars. Questions were answered. 05/12/2011 15:35:49 Instructions printed and provided to patient: 50% of this visit was spent discussing the diagnosis, natural history of the disease, risks/benefits of and various treatment options. Extensive discussion regarding the diagnosis of diabetes , its natural history, nutrition and excercise and medication effects on blood sugars. Questions were answered. ORDERED/ADVISED: - Lipid Panel (hyperlipidemia) ICD9 Codes (250.00, 729.1) PROVIDED: Patient Education (05/12/2011) diabetes and insulin 03/17/2011 15:34:43 Instructions printed and provided to patient: PRESCRIBE: aggmcqtieh14 mg oral tablet, one po bid, prn indigestion, # 180, RF: 1. PRESCRIBE: atenolol 25 mg oral tablet, one po daily, # 90, RF: 1. DISCONTINUE: bisoprolol 5 mg oral tablet one po daily PRESCRIBE: GABAPENTIN 100 MG, one or two po tid prn leg cramps, # 60, RF: 1. (Transmitted by Lacy Callahan DO) ORDERED/ADVISED: - TSH ICD9 Codes (250.02, 780.8, 401.0, 785.0, 786.50) - Magnesium Level ICD9 Codes (250.02, 780.8, 401.0, 785.0, 786.50) - CPK ICD9 Codes (250.02, 780.8, 401.0, 785.0, 786.50) - BMP (Basic Metabolic Panel) (Muscle Cramps/AODM/Back Pain) ICD9 Codes (250.02, 780.8, 401.0, 785.0, 786.50) ORDERED/ADVISED: - HgAc (AODM with improved control) ICD9 Codes (250.02, 780.8, 401.0, 785.0, 786.50) 10/21/2010 15:01:13 .He will return with the [facility] paperwork He saw Dr. Lee and she was pleased with his numbers at this point too. His bp has come down. 10/05/2010 14:13:14 50% of this visit was spent discussing the diagnosis, natural history of the disease, risks/benefits of and various treatment options. Extensive discussion regarding the diagnosis of diabetes , its natural history, nutrition and excercise and medication effects on blood sugars. Questions were answered. He really want to continue with Dr. Lee for his diabetes. We again discussed the use of 50/50 insulin in order to improve his hgac. DISCONTINUE: Sugar Free robitussin AC one or two tsp po qid prn cough DISCONTINUE: metformin 1000 mg oral tablet one po bid pc and one half after lunch PRESCRIBE: Arthrotec 75 mg-200 mcg oral tablet, one po bid prn joint pain, # 180, RF: 3. PRESCRIBE: atenolol 25 mg oral tablet, one po daily, # 90, RF: 3. PRESCRIBE: Januvia 100 mg oral tablet, one po daily, # 90, RF: 3. PRESCRIBE: Lantus Solostar Pen 100 units/mL subcutaneous solution, 40 units sq q hs, # 3months, RF: 3. PRESCRIBE: lisinopril 30 mg oral tablet, one po daily, # 90, RF: 3. PRESCRIBE: metformin 1000 mg oral tablet, one po bid pc, # 225, RF: 3. PRESCRIBE: simvastatin 20 mg oral tablet, one po daily, # 90, RF: 3. PRESCRIBE: Skelaxin 800 mg oral tablet, one po tid prn back pain, # 270, RF: 3. Ordered/Advised: - Custom Order (Today I am seeing Bang Valderrama in follow up of an Emergency Room visit and this was medically necessary. He has been off work since 10/02, 10/03 due to illness and may return 10/04/10. He has had a follow up appt with me today, 10/05/10 which is medically necessary and he will be needing some testing which is also medically necessary done in the near future. ) Patient does not want his private medical information released to his employer. Ordered/Advised: - Amylas/Lipase ICD9 Codes (250.02, 272.4, V15.81, 401.9, 356.9) - BMP (Basic Metabolic Panel) ICD9 Codes (250.02, 272.4, V15.81, 401.9, 356.9) - H. Pylori Ab ICD9 Codes (250.02, 272.4, V15.81, 401.9, 356.9) - GGT ICD9 Codes (250.02, 272.4, V15.81, 401.9, 356.9) - HgAc ICD9 Codes (250.02, 272.4, V15.81, 401.9, 356.9) I review his ed logs from last week and from june when he was diagnosed with pancreatitis when he has a normal amylase and elevated lipase. He will have his labs and we will decide if he should have a stress test or not. PRESCRIBE: bisoprolol 5 mg oral tablet, one po daily, # 30, RF: 1. 06/24/2010 16:04:40 50% of this visit was spent discussing the diagnosis, natural history of the disease, risks/benefits of and various treatment options. Extensive discussion regarding the diagnosis of diabetes , its natural history, nutrition and excercise and medication effects on blood sugars. Questions were answered. Check fasting blood sugar four days in a row. If above 140 increase lantus evening insulin by 4 units and follow am fasting blood sugar and repeat. He is urged to be aggressive with his lantus and we discussed possible 50/50 PRESCRIBE: LISINOPRIL 30mg, one po daily, # 90, RF: 1. Ordered/Advised: - HgAc (AODM) ICD9 Codes (250.02, 272.4, V15.81, 401.9, 356.9) 04/17/2010 15:41:39 50% of this visit was spent discussing the diagnosis, natural history of the disease, risks/benefits of and various treatment options. Extensive discussion regarding the diagnosis of diabetes , its natural history, nutrition and excercise and medication effects on blood sugars. Questions were answered. PRESCRIBE: Arthrotec 75mg, one po bid prn joint pain, # 180, RF: 1. PRESCRIBE: ATENOLOL 25 MG, one po daily, # 90, RF: 1. PRESCRIBE: Januvia 100mg, one po daily, # 90, RF: 1. PRESCRIBE: LISINOPRIL 20mg, one po daily, # 90, RF: 1. PRESCRIBE: Lantus solostar pen, 10 units qpm subcutaneously, # 3months, RF: 3. PRESCRIBE: BD ultrafine needles for solostar pen, as directed, # 100, RF: 3. PRESCRIBE: METFORMIN 1000 MG, one po bid pc, # 225, RF: 1. PRESCRIBE: SIMVASTATIN 20 MG, one po daily, # 90, RF: 1. PRESCRIBE: SKELAXIN TABLET 800 MG, one po tid prn back pain, # 270, RF: 1. DISCONTINUE: GLIMEPIRIDE TABLET 4 MG one po bid (changed to glyburide by Dr. Lee) Ordered/Advised: - CBC with diff (automated) ICD9 Codes (250.02, 272.4, V15.81, 401.9, 356.9) - CMP (Complete Metabolic Panel) ICD9 Codes (250.02, 272.4, V15.81, 401.9, 356.9) - HgAc ICD9 Codes (250.02, 272.4, V15.81, 401.9, 356.9) - Lipid Panel ICD9 Codes (250.02, 272.4, V15.81, 401.9, 356.9) - Urine microalbumin ICD9 Codes (250.02, 272.4, V15.81, 401.9, 356.9) 01/16/2010 15:29:23 He has scripts through April. PRESCRIBE: Sugar Free robitussin AC, one or two tsp po qid prn cough, # 200, RF: 1. 12/03/2009 09:11:55 He is given another pen while awaiting his prescription. He broughtt in his sugars. Check fasting blood sugar four days in a row. If above 140 increase lantus evening insulin by 4 units and follow am fasting blood sugar and repeat. Ordered/Advised: - HgAc ICD9 Codes (250.02, 272.4, V15.81, 401.9, 356.9) 11/24/2009 09:57:01 50% of this visit (50 minutes) was spent discussing the diagnosis, natural history of the disease, risks/benefits of and various treatment options. Extensive discussion regarding the diagnosis of diabetes , its natural history, nutrition and excercise and medication effects on blood sugars. Questions were answered. He could never draw up his own insulin Check fasting blood sugar four days in a row. If above 140 increase lantus evening insulin by 4 units and follow am fasting blood sugar and repeat. Demonstration and instruciton. Questions answered. "He doesn't like this" Ordered/Advised: - Sarah Lee (Endocrinology) (second opinion on insulin) ICD9 Codes (250.02, 272.4, V15.81, 401.9, 356.9) PRESCRIBE: Lantus solostar pen, 10 units qpm subcutaneously, # 3months, RF: 3. PRESCRIBE: BD ultrafine needles for solostar pen, as directed, # 100, RF: 3. 10/17/2009 10:30:50 Return in 3 months. Sooner if weight loss persists. DISCONTINUE: AVANDIA TABLET 8 MG one po daily (off) DISCONTINUE: Avandia (off) PRESCRIBE: ATENOLOL 25 MG, one po daily, # 90, RF: 1. PRESCRIBE: Januvia 100mg, one po daily, # 90, RF: 1. PRESCRIBE: GLIMEPIRIDE TABLET 4 MG, one po bid, # 180, RF: 1. PRESCRIBE: LISINOPRIL 20mg, one po daily, # 90, RF: 1. PRESCRIBE: METFORMIN 1000 MG, one po bid pc, # 225, RF: 1. PRESCRIBE: SIMVASTATIN 20 MG, one po daily, # 90, RF: 1. PRESCRIBE: SKELAXIN TABLET 800 MG, one po tid prn back pain, # 270, RF: 1. PRESCRIBE: Arthrotec 75mg, one po bid prn joint pain, # 180, RF: 1. PRESCRIBE: Baby ASA 81mg, one po daily, # 90, Ordered/Advised: - BMP (Basic Metabolic Panel) ICD9 Codes (250.00, 715.90, 586, 401.9) - CBC with diff (automated) ICD9 Codes (250.00, 715.90, 586, 401.9) - HgAc ICD9 Codes (250.00, 715.90, 586, 401.9) - LFTs (Liver Function Test) ICD9 Codes (250.00, 715.90, 586, 401.9) - Lipid Panel ICD9 Codes (250.00, 715.90, 586, 401.9) 11/27/2008 11:30:44 Extensive discussion regarding the diagnosis of diabetes , its natural history, nutrition and excercise and medication effects on blood sugars. Questions were answered. He is adamantly refusing to start insulin. Over 30 minutes spent with madiha in attempt to dispell myths he holds surrounding the use of insulin. He will consider it and return if he decides. He is to return in 3 months in any event. VITAL SIGNS Encounter Height (in) We ight (lb) BMI (kg/m2) BP Sys (mmHg) BP Reed (mmHg) Heart Rate (/min) O2 % BldC Oximetry O2 % BldC Oximetry (on O2) Body Temp erature Respiratory Rate (/min) Head Circumf OFC by Tape measure 09/03/2020 08:28:39 70 2 13 30.6 126 78 106 98 -- 98.1 F -- -- 11/21/2019 09:35:26 70 2 09 30.0 140 76 90 97 -- -- -- -- 06/06/2019 14:35:21 70 2 10 30.1 158 90 113 99 -- -- -- -- 03/02/2019 12:33:26 70 2 11 30.3 130 72 116 97 -- -- -- -- 02/07/2019 14:58:18 70 2 13 30.6 110 72 117 98 -- -- -- -- 11/06/2018 09:10:54 70 2 13 30.6 136 80 113 96 -- -- 98 -- 06/02/2018 14:48:56 70 2 05 29.4 116 80 108 96 -- -- -- -- 02/15/2018 15:06:50 70 2 16 31.0 138 80 113 99 -- -- -- -- 11/16/2017 08:33:59 70 2 22 31.9 150 80 109 98 -- -- -- -- 09/09/2017 09:57:23 70 2 23 32.0 134 78 109 98 -- -- -- -- 05/27/2017 15:01:05 70 2 10 30.1 124 64 129 97 -- 99.2 F -- -- 01/28/2017 14:04:54 70 2 17 31.1 126 80 116 -- -- -- 9 7 -- 10/27/2016 08:24:56 70 2 13 30.6 132 74 110 98 -- -- -- -- 07/26/2016 08:59:47 70 2 16 31.0 120 78 119 98 -- -- -- -- 06/21/2016 15:32:20 70 2 20 31.6 110 76 105 98 -- -- -- -- 03/19/2016 14:34:02 70 2 15 30.8 118 78 114 97 -- -- -- -- 12/19/2015 14:04:40 70 2 20 31.6 138 80 115 96 -- -- -- -- 09/15/2015 14:03:38 70 2 19 31.4 138 74 124 95 -- -- -- -- 06/13/2015 15:00:29 70 2 14 30.7 128 74 131 96 -- -- -- -- 03/14/2015 15:06:01 70 2 18 31.3 144 80 126 96 -- -- -- -- 12/09/2014 09:07:50 70 2 14 30.7 112 80 114 98 -- -- -- -- 09/11/2014 08:27:54 70 2 12 30.5 120 80 118 98 -- -- -- -- 06/21/2014 11:50:09 70 1 99 28.6 118 80 113 95 -- -- -- -- 06/03/2014 08:29:52 70 1 96 28.2 110 78 124 98 -- -- -- -- 04/29/2014 09:01:16 70 1 92 27.6 110 80 119 98 -- -- -- -- 04/01/2014 09:00:34 70 1 87 26.9 106 70 127 97 -- -- -- -- 03/18/2014 09:18:45 70 1 88 27.0 92 70 130 98 -- -- -- -- 03/04/2014 15:00:23 70 1 87 26.9 108 70 136 98 -- -- -- -- 02/15/2014 15:11:42 70 1 92 27.6 116 80 96 98 -- -- -- -- 02/04/2014 08:50:37 70 1 93 27.8 98 50 97 98 -- -- -- -- 12/17/2013 10:43:13 -- -- -- 104 60 93 97 -- 97.6 F -- -- 11/21/2013 10:51:50 70 1 96 28.2 102 60 88 97 -- -- -- -- 10/31/2013 08:33:10 70 1 98 28.5 142 78 113 98 -- 98.2 F -- -- 08/01/2013 08:46:35 70 2 05 29.5 104 68 84 -- -- -- - - -- 05/16/2013 16:17:18 70 2 09 30.1 132 80 87 -- -- -- - - -- 04/13/2013 14:32:12 70 2 12 30.5 138 80 75 -- -- -- - - -- 03/23/2013 14:31:37 -- -- -- 116 78 97 -- -- -- - - -- 03/02/2013 11:29:36 70 2 07 29.8 118 78 114 -- -- 98.6 F -- -- 02/02/2013 15:29:46 70 2 03 29.2 110 80 112 -- -- -- - - -- 10/30/2012 08:35:21 70 2 11 30.3 156 96 88 -- -- -- - - -- 07/31/2012 08:34:07 70 2 10 30.2 118 78 110 -- -- -- - - -- 04/28/2012 08:54:32 70 2 06 29.6 138 72 89 -- -- 98.2 F -- -- 01/28/2012 08:32:04 70 2 11 30.3 142 84 93 -- -- -- - - -- 11/01/2011 08:43:13 70 2 16 31.1 132 84 91 -- -- -- - - -- 10/13/2011 08:40:23 70 2 14 30.8 152 88 81 -- -- -- - - -- 08/13/2011 08:37:34 70 2 16 31.1 116 78 93 -- -- -- - - -- 05/12/2011 15:35:49 70 2 16 31.1 144 90 83 -- -- -- - - -- 03/17/2011 15:34:43 70 2 18 31.3 130 78 85 -- -- -- - - -- 10/21/2010 15:01:13 70 2 20 31.6 124 80 86 -- -- -- - - -- 10/05/2010 14:13:14 70 2 17 31.1 144 94 101 -- -- -- - - -- 06/24/2010 16:04:40 70 2 06 29.6 160 90 79 -- -- -- - - -- 04/17/2010 15:41:39 70 2 07 29.7 118 82 81 -- -- -- - - -- 01/16/2010 15:29:23 -- 2 08 -- 140 82 87 -- -- 98.3 F -- -- 12/03/2009 09:11:55 70 2 04 29.3 128 88 83 -- -- -- - - -- 11/24/2009 09:57:01 70 2 07 29.7 124 82 89 -- -- 98.6 F -- -- 10/17/2009 10:30:50 70 2 05 29.4 142 104 93 -- -- -- - - -- 11/27/2008 11:30:44 70 2 16 31.0 130 90 97 -- -- -- - - -- GOALS No Goals Information. HEALTH CONCERNS No health concerns information is available. MENTAL STATUS No Mental Status information.
--- OUTSIDE RECORDS SUMMARY | 2020-10-10 14:58 | CCD | Continuity of Care Document ---
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 Role Phone Lacy Callahan [employer] [phone] Petty Borja MD AUTM Problems Active Problems Provider Date Chronic kidney disease stage 2 Montse Pruitt PA-C On set: 07/08/2015 Needs influenza immunization Montse Pruitt PA-C Onse t: 07/01/2014 Disorder of adrenal gland Sarah Lee MD Onset: 013 Disorder of adrenal gland Sarah Lee MD Onset: 013 Essential hypertension Sarah Lee MD Onset: 05/14/2013 Type 2 diabetes mellitus Sarah Lee MD Onset: 01/09/20 13 Streptococcus Pneumonia & Influenz Vaccination & Inocu lation Sarah Lee MD Onset: 08/02/2011 Disorder of kidney due to diabetes mellitus Sarah Lee MD Onset: 08/02/2011 Mixed hyperlipidemia Sarah Lee MD Onset: 08/02/2011 Pure hyperglyceridemia Sarah Lee MD Onset: 08/02/2011 Type II diabetes mellitus uncontrolled Sarah eLe MD O nset: 08/02/2011 Social History Type Date Description Comments Sex Unknown Cigarette Use denies cigarette use ETOH Use Denies alcohol use Tobacco Use Start: Unknown Patient has never smoked Smoking Status Reviewed: 09/10/20 Patient has never smoked Allergies, Adverse Reactions, Alerts Description No Known Drug Allergies Medications Active Medications SIG Qnty Indications Ordering Provide r Date BD Pen Needle/Original/Ultra-Fine/29G X 12.7mm 29G X 12.7mm Misc use 4 times daily with insulin. e11.65 400units E1 1.65 Kianna Montemayor NP 09/10/2020 Tresiba Flextouch 20 0Unit/ML Solution Pen-Inject inject 68 units once every morning 27ml Kianna Montemayor NP 08/21/2020 Lantus Solostar 100U nit/ML Solution Pen-Inject use as directed 68 units qhs 30ml E78.2 Kianna nichole, URBANO 12/05/2019 Simvastatin 40mg Tablets 1 tab by mouth every day 90tabs Kianna Montemayor NP 04/27/2019 Vascepa 1gm Capsules 2 tabs by mouth twice a day 360caps E78.2 Kianna Montemayor NP 04/27/2019 Glyburide 2.5mg Tablets 1 at 9am and and 2 at lunch 270tabs E11.22 Kianna Montemayor NP 04/22/2017 Trulicity 1.5mg/0.5ML Solution Pen -Inject inject once weekly 6ml E11.65 Kianna Montemayor NP 10/22/2016 Jardiance 25mg Tablets Take 1 Tablet Daily 90tabs E11.65 Kianna Montemayor NP 10/07/2014 Metformin HCL ER 500mg Tablets ER 24HR take two tablets by mouth twice a day 360tabs E11.65 Kianna Montemayor, URBANO 08/12/2014 Novolog Flexpen 100U nit/ML Solution Pen-Inject use as directed 32 units 3 times a day, titrating doses, maximum daily dose 96. please disp 6 boxes 90ml E11.65 Kianna Montemayor NP 05/01 Ajovy 225mg/1.5ML Soln Prefill Syr scot once monthly E11.22 Unknown Allopurinol 300mg Tablets 1 by mouth every day Unknown Lisinopril 2.5mg Tablets 1 tab by mouth every at bedtime Unknown Carvedilol 3.125mg Tablets 1 by mouth twice a day Unknown Flonase 50mcg/Act Suspension prn Unknown Nortriptyline HCL 50mg Capsules one capsule po qhs Unknown Zofran 4mg Tablets one po q4h prn for nausea Unknown Aspirin 325mg Tablets DR 1 po qd Unknown Skelaxin 800mg Tablets take one tid prn 90tabs Unknown History Medications Tresiba Flextouch 10 0Unit/ML Solution Pen-Inject inject 68 units once every morning 7units Julieta Lee MD 08/20/2020 - 08/21/2020 Immunizations Description No Information Available Vital Signs Date Vital Result Comment 09/10/2020 9:03am BP Systolic 126 mmHg BP Diastolic 84 mmHg Heart Rate 89 /min Body Temperature 97.2 F Height 69.25 inches 5'9.25" Weight 217.50 lb BMI (Body Mass Index) 31.9 kg/m2 O2 % BldC Oximetry 98 % 05/16/2020 3:40pm BP Systolic 142 mmHg BP Diastolic 86 mmHg Heart Rate 91 /min Height 69.25 inches 5'9.25" Weight 216.38 lb BMI (Body Mass Index) 31.7 kg/m2 O2 % BldC Oximetry 99 % Results Test Acquired Date Facility Test Result H/L Range Note Laboratory test finding 09/10/2020 In House Glucose 140 Laboratory test finding 05/16/2020 In House Glucose 532 Hemoglobin A1c 10.0 Procedures Date Code Description Status 02/04/2020 [id number] Diabetic Foot Exam Completed Medical Devices Description No Information Available Encounters Type Date Location Provider Dx Diagnosis Office Visit 05/16/2020 3:30p DR. Sarah Lee MD E 11.22 Type 2 diabetes mellitus w diabetic chronic kidney disease N18.2 Chronic kidney disease, stag e 2 (mild) E78.2 Mixed hyperlipidemia Z01.89 Encounter for other specifie d special examinations Assessments Date Code Description Provider 09/10/2020 E11.22 Type 2 diabetes mellitus with di abetic chronic kidney diselea Montemayor NP 09/10/2020 N18.2 Chronic kidney disease, stage 2 (mild) Kianna Montemayor NP 09/10/2020 E78.2 Mixed hyperlipidemia Kianna poe NP 05/16/2020 E11.22 Type 2 diabetes mellitus with di abetic chronic kidney diselea Lee MD 05/16/2020 N18.2 Chronic kidney disease, stage 2 (mild) Sarah Lee MD 05/16/2020 E78.2 Mixed hyperlipidemia Sarah Lee MD 05/16/2020 Z01.89 Encounter for other specified sp ecial examinations Sarah Lee MD Plan of Treatment 09/10/2020 - Kianna Montemayor NP* E11.22 Type 2 diabetes mellitus with diabetic chronic kidney diseas* New Labs:* Glucose, Ordered: 09/10/20 * Hemoglobin A1c, Ordered: 09/10/20 * Comments:* + not checking fingersticks- has check 1 time in 3 months.+++09/10/20- in office A1c= 12.6% (10%, 10.0%, 9.7% 12.5%, 10.3%, 11.8%, 9.6%, 10.4%, 8.1%,11.1%,10.1%, 9.3%, 9.6%, 10.1%) Random BS= 140Meter downloaded and reviewed with patient: checked one time fasting= 164States has been working long hours. Has stress at work and home Current meds: Metformin ER 500 mg 2 tabs po BID, Trulicity 1.5 mg q week(has not taken for past 2 months), Jardiance 25 mg, Glyburide 2.5 mg 1 tab QAM, 2 tabs po Q pm. Current insulin: Tresiba 68 units Q PM and Novolog- 32 units with meals- taking with breakfast and lunch, but not dinner because he states not allowed to take insulin at work. Will continue same for nowRTO 3 months * N18.2 Chronic kidney disease, stage 2 (mild)* Comments:* PT is on ACEI Reviewed nephrology notes from 08/15/2020Labs done 08/15/2020- Scr= 1.1, GFR= >60, microcreat ratio= 254.1 * E78.2 Mixed hyperlipidemia* Comments:* Goal for LDL< 70 due to CAD and DM. 04/24/18- chol= 327, Trig= 2745, LDL= unable to calculate, HDL= 17- severely unstable Was on Simvastatin 20 mg po qd. Labs done 04/20/19- chol= 239, Trig= 1038, HDL= 34, LDL= unable to calculate. Needs better diet- low fat, high fiber. On Simvastatin 40mg po qd and Vascepa 1gm 2 tabs po BID 08/06/19- chol= 115, Trig= 433, HDL= 33, LDL- unable to calculate- much improvedContinue same * All * New Medication:* BD Pen Needle/Original/Ultra-Fine/29G X 12.7mm 29 G X 12.7mm - use 4 times daily with insulin. e11.65 Functional Status Description No Information Available Mental Status Description No Information Available Referrals Description No Information Available
--- OUTSIDE RECORDS SUMMARY | 2020-10-10 14:58 | CCD ---
Author Organization Unknown Address [address] [place] [address] Phone [phone] Care Team Providers Care Pharmaceutical Physician Name Role Phone MAYURI LOCKWOOD MD 3 [phone] Allergies Code Code System Name Reaction Severity Status Onset [id number] RxNorm Invokana Anaphylaxis Severe Active Medications Name Status Start Date Stop Date acetaminophen 300 mg-codeine 30 mg table t as needed Active 04/03/2019 Not available Ajovy Syringe 225 mg/1.5 mL subcutaneous INJECT 1.5ML ONCE A MONTH UNDER THE SKIN Active Not available albuterol sulfate HFA 90 mcg/actuation aerosol inhaler Active Not available allopurinol 100 mg tablet Active Not av ailable allopurinol 300 mg tablet Active Not av ailable amoxicillin 875 mg-potassium clavulanate 125 mg tablet Completed 07/03/2020 aspirin 325 mg tablet Take 1 tablet every day by oral route. Active Not available carvedilol 3.125 mg tablet Completed 07/03 carvedilol 6.25 mg tablet Active Not av ailable diazepam 2 mg tablet one by mouth once daily Active Not available dicyclomine 10 mg capsule as needed Active Not available divalproex 250 mg tablet,delayed release Completed 07/03/2020 divalproex 500 mg tablet,delayed release Completed 08/06/2020 doxycycline hyclate 100 mg tablet Completed 07/03/2020 Flucelvax Quad 60 mcg (15 mcg x 4)/0.5 mL IM suspensio n Active Not available Flucelvax Quad 60 mcg (15 mcg x 4)/0.5 mL intramuscular susp INJECT 0.5ML DIRECTED Active Not available Fluzone Quad (PF) 60 mcg (15 m cg x 4)/0.5 mL IM syringe INJECT INTRAMUSCULARLY IN THE LEFT ARM Active Not available glyburide 2.5 mg tablet Active Not avai lable hydrocodone 5 mg-acetaminophen 325 mg ta blet as needed Completed 07/03/2020 hydrocodone 7.5 mg-acetaminophen 325 mg tablet Completed 07/03/2020 Jardiance 25 mg tablet Active Not avail able Lantus Solostar U-100 Insulin 100 unit/m L (3 mL) subcutaneous pen daily Active Not available lisinopril 2.5 mg tablet Active Not suzanne ilable meclizine 25 mg tablet Active Not avail able meloxicam 7.5 mg tablet Completed 07/03/20 metaxalone 800 mg tablet Active Not suzanne ilable metformin 1,000 mg tablet Active Not av ailable metformin ER 500 mg tablet,extended release 24 hr Active Not available metoclopramide 10 mg tablet Active Not available naproxen 250 mg tablet as needed Completed 07/03/2020 nortriptyline 50 mg capsule Completed 03/07 nortriptyline 75 mg capsule TAKE ONE CAPSULE BY MOUTH EVERY DAY Active Not available Novolog Flexpen U-100 Insulin aspart 100 unit/mL (3 mL) subcutan eous Active Not available ondansetron 4 mg disintegrating tablet Active Not available ondansetron 8 mg disintegrating tablet Completed 07/03/2020 ondansetron HCl 4 mg tablet Completed 06/06 ondansetron HCl 8 mg tablet Completed 06/06 oseltamivir 75 mg capsule Active Not av ailable Pneumovax-23 25 mcg/0.5 mL injection syringe Completed 08/06/2020 Prevnar 13 (PF) 0.5 mL intramuscular syringe Completed 04/03/2019 simvastatin 20 mg tablet one by mouth once daily Completed 08/06/2020 simvastatin 40 mg tablet Active Not suzanne ilable sumatriptan 25 mg tablet Completed 020 sumatriptan 50 mg tablet Active Not suzanne ilable Suprep Bowel Prep Kit 17.5 gram-3.13 gram-1.6 gram oral solution Completed 04/03/2019 topiramate 50 mg tablet as needed Completed 07/03/2020 Tresiba FlexTouch U-200 insulin 200 unit/mL (3 mL) subcutaneous pen Active Not available Trulicity 1.5 mg/0.5 mL subcutaneous pen injector Active Not available Vascepa 1 gram capsule Active Not avail able zonisamide 25 mg capsule Completed 019 zonisamide 50 mg capsule as needed Active Not available Problems None recorded. Procedures Date Name Performed by Back Surgery Notes: 2006 Information not available Incision of Adrenal Gland Information no t available Appendectomy Information not avai lable Results Lab Results Date Name Specimen Result Interpretation Description Value Range Status Address 09/08/2020 [facility] Pdf Report NOS No observation recorded. [facility]: [facility], [place] 09/08/2020 COVID-19 RNA (SARS-CoV-2), QL, medical resident-PCR, Respirat ory Specimen NOS Normal Sars-cov-2 negative negative Final [facility]: [facility], [place] 08/13/2020 [facility] Pdf Report NOS No observation recorded. [facility]: [facility], [place] 08/13/2020 COVID-19 RNA (SARS-CoV-2), QL, medical resident-PCR, Respirat ory Specimen NOS Normal Sars-cov-2 negative negative Final [facility]: [facility], [place] 06/16/2020 [facility] Pdf Report NOS No observation recorded. [facility]: [address] [facility], [place] 06/16/2020 COVID-19 RNA (SARS-CoV-2), QL, medical resident-PCR, Respirat ory Specimen NOS Normal Sars-cov-2 negative negative Final [facility]: [facility], [place] 06/02/2020 COVID-19 RNA (SARS-CoV-2), QL, medical resident-PCR, Respiratory Specim en No observation recorded. [employer]: [address] [place] [address], [place] Past Encounters 09/26/2020 Cervical Spondylosis without Myelopathy; Cervicogenic Headache; Cervical Radiculopathy; Displacement of Cervical Intervertebral Disc without Myelopathy; Degeneration of Cervical Intervertebral Disc; Lumbar Post-laminectomy Syndrome; Degeneration of Lumbar Intervertebral Disc; Degeneration of Lumbosacral Intervertebral Disc; Displacement of Lumbar Intervertebral Disc without Myelopathy; Intervertebral Disc Disorder; Spondylosis without Myelopathy; Lumbosacral Spondylosis without Myelopathy; Lumbar Radiculopathy Nyla Boland [employer] BATH M[employer]ER: [address], [place] [address], Ph. 09/11/2020 Lumbar Post-laminectomy Syndrome; Lumbar Radiculopathy; Degeneration of Lumbar Intervertebral Disc; Degeneration of Lumbosacral Intervertebral Disc; Displacement of Lumbar Intervertebral Disc without Myelopathy; Intervertebral Disc Disorder; Spondylosis without Myelopathy; Lumbosacral Spondylosis without Myelopathy; Cervical Radiculopathy; Degeneration of Cervical Intervertebral Disc; Displacement of Cervical Intervertebral Disc without Myelopathy; Cervical Spondylosis without Myelopathy; Cervicogenic Headache Stephon Cullen MD: [address] [address], [facility] [place] [address], Ph. 09/08/2020 Pre-surgery Testing; Viral Screening Stephon Cullen MD: [address] [address], [facility] [place] [address], Ph. [phone] 08/18/2020 Lumbar Post-laminectomy Syndrome; Lumbar Radiculopathy; Degeneration of Lumbar Intervertebral Disc; Degeneration of Lumbosacral Intervertebral Disc; Displacement of Lumbar Intervertebral Disc without Myelopathy; Intervertebral Disc Disorder; Spondylosis without Myelopathy; Lumbosacral Spondylosis without Myelopathy; Cervical Radiculopathy; Degeneration of Cervical Intervertebral Disc; Displacement of Cervical Intervertebral Disc without Myelopathy; Cervical Spondylosis without Myelopathy; Cervicogenic Headache Stephon Culeln MD: [address] [address], [facility] [place] [address], Ph. 08/13/2020 Pre-surgery Testing; Viral Screening Stephon Cullen MD: [address] [address], [facility] [place] [address], Ph. [phone] 08/06/2020 Cervical Spondylosis without Myelopathy; Cervicogenic Headache; Cervical Radiculopathy; Displacement of Cervical Intervertebral Disc without Myelopathy; Degeneration of Cervical Intervertebral Disc; Lumbar Post-laminectomy Syndrome; Degeneration of Lumbar Intervertebral Disc; Degeneration of Lumbosacral Intervertebral Disc; Displacement of Lumbar Intervertebral Disc without Myelopathy; Intervertebral Disc Disorder; Spondylosis without Myelopathy; Lumbosacral Spondylosis without Myelopathy; Lumbar Radiculopathy Nyla Boland NP: [id number] [facility] [address], [facility] [place] [address], Ph. 07/03/2020 Cervical Spondylosis without Myelopathy; Cervicogenic Headache; Cervical Radiculopathy; Displacement of Cervical Intervertebral Disc without Myelopathy; Degeneration of Cervical Intervertebral Disc; Low Back Pain; Lumbar Post- laminectomy Syndrome; Degeneration of Lumbar Intervertebral Disc; Degeneration of Lumbosacral Intervertebral Disc; Displacement of Lumbar Intervertebral Disc without Myelopathy; Intervertebral Disc Disorder; Spondylosis without Myelopathy; Lumbosacral Spondylosis without Myelopathy Nyla Boland, [employer]: [address] [address], [facility] [place] [address], Ph. 06/20/2020 Cervical Radiculopathy; Displacement of Cervical Intervertebral Disc without Myelopathy; Degeneration of Cervical Intervertebral Disc; Cervical Spondylosis without Myelopathy; Cervicogenic Headache; Low Back Pain Stephon Cullen MD: [address] [address], Ph. 06/16/2020 Pre-surgery Testing; Viral Screening Stephon Cullen MD: [address] [address], [place] [address], Ph. [phone] 06/06/2020 Cervical Radiculopathy; Displacement of Cervical Intervertebral Disc without Myelopathy; Degeneration of Cervical Intervertebral Disc; Cervical Spondylosis without Myelopathy; Cervicogenic Headache; Low Back Pain Stephon Cullen MD: [address] [address], [place] [address], Ph. 06/02/2020 Pre-surgery Testing; Viral Screening Stephon Cullen MD: [address] [address], [place] [address], Ph. [phone] 05/23/2020 Cervical Spondylosis without Myelopathy; Cervicogenic Headache; Cervical Radiculopathy; Displacement of Cervical Intervertebral Disc without Myelopathy; Degeneration of Cervical Intervertebral Disc; Low Back Pain Nyla Boland, [employer]: [address] [address], [place] [address], Ph. 08/10/2019 Cervical Spondylosis without Myelopathy; Cervicogenic Headache; Cervical Radiculopathy; Displacement of Cervical Intervertebral Disc without Myelopathy; Degeneration of Cervical Intervertebral Disc Nyla Boland [employer]: [address] [address], Ph. 06/15/2019 Cervical Spondylosis without Myelopathy; Cervicogenic Headache; Cervical Radiculopathy; Displacement of Cervical Intervertebral Disc without Myelopathy; Degeneration of Cervical Intervertebral Disc Nyla Boland, [employer]: [address] [address], Ph. 05/25/2019 Cervical Radiculopathy; Displacement of Cervical Intervertebral Disc without Myelopathy; Degeneration of Cervical Intervertebral Disc; Cervicogenic Headache; Cervical Spondylosis without Myelopathy Stephon Cullen MD: [id number] [address], Ph. 05/11/2019 Cervical Radiculopathy; Displacement of Cervical Intervertebral Disc without Myelopathy; Degeneration of Cervical Intervertebral Disc; Cervicogenic Headache; Cervical Spondylosis without Myelopathy Stephon Cullen MD: [address] [address], Ph. 04/27/2019 Cervical Radiculopathy; Displacement of Cervical Intervertebral Disc without Myelopathy; Degeneration of Cervical Intervertebral Disc; Cervicogenic Headache; Cervical Spondylosis without Myelopathy Stephon Cullen MD: [address] [address], Ph. 04/13/2019 Cervical Spondylosis without Myelopathy; Cervicogenic Headache; Cervical Radiculopathy; Displacement of Cervical Intervertebral Disc without Myelopathy; Degeneration of Cervical Intervertebral Disc Nyla Boland, [employer]: [address] [address], Ph. 04/03/2019 Cervical Spondylosis without Myelopathy; Cervicogenic Headache Stephon Cullen MD: [address] [address], Ph. Social History Tobacco Smoking Status Never Smoker Vaccine List None recorded. Plan of Care Reminders Provider Appointments None recorded. Lab None recorded. Referral None recorded. Procedures None recorded. Surgeries None recorded. Imaging None recorded. Vitals 09/26/2020 09:00AM FOLLOW-UP Height Blood Pressure 5 ft 11 in 127/84 mm[Hg] 08/06/2020 08:30AM FOLLOW-UP Height Blood Pressure 5 ft 11 in 128/83 mm[Hg] 07/03/2020 10:15AM FOLLOW-UP Height Blood Pressure 5 ft 11 in 119/74 mm[Hg] 05/23/2020 11:30AM Extended Follow Up Visit Height Blood Pressure 5 ft 11 in 166/77 mm[Hg] 08/10/2019 09:30AM FOLLOW-UP Height Blood Pressure 5 ft 11 in 143/96 mm[Hg] 06/15/2019 10:45AM FOLLOW-UP Height Weight BMI Blood Pressure 5 ft 11 in 208 lbs 29 kg/m2 141/84 mm[Hg] 04/13/2019 02:00PM FOLLOW-UP Height Weight BMI Blood Pressure 5 ft 11 in 208 lbs 29 kg/m2 128/76 mm[Hg] 04/03/2019 04:30PM NEW PATIENT Height Weight BMI Blood Pressure 5 ft 11 in 208 lbs 29 kg/m2 163/85 mm[Hg]
--- OUTSIDE RECORDS SUMMARY | 2020-10-10 14:58 | CCD | Continuity of Care Document ---
Author Author Guille MONTEMAYOR CLINICAL APPLICATIONS SPECIALIST Organization Unknown Address [address] [place] [address] Phone [phone] Care Team Providers Care Memory Care Program Director Name Role Phone Lacy Callahan [employer] AUTM [phone] Petty Borja MD AUTM Problems Active Problems [...] 08/02/2011 Type II diabetes mellitus uncontrolled Sarah Lee MD O nset: 08/02/2011 Social History Type [...] 10.0 Procedures Date Code Description Status 02/04/2020 [id number] Diabetic Foot Exam Completed Medical Devices Description No Information Available Encounters Type Date Location Provider Dx Diagnosis Office Visit 09/10/2020 9:00a DR. 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 Sarah Lee MD E 11.22 Type 2 diabetes mellitus w diabetic chronic kidney disease N18.2 Chronic kidney disease, stag e 2 (mild) E78.2 Mixed hyperlipidemia Z01.89 Encounter for other specifie d special examinations Assessments Date Code Description Provider 09/10/2020 E11.22 Type 2 diabetes mellitus with di abetic chronic kidney diseas Kianna Montemayor NP 09/10/2020 N18.2 Chronic kidney disease, stage 2 (mild) Kianna Montemayor NP 09/10/2020 E78.2 Mixed hyperlipidemia Kianna poe NP 05/16/2020 E11.22 Type 2 diabetes mellitus with di abetic chronic kidney diseas Sarah Lee MD 05/16/2020 N18.2 Chronic kidney disease, stage 2 (mild) Sarah Lee MD 05/16/2020 E78.2 Mixed hyperlipidemia Sarah Lee MD 05/16/2020 Z01.89 Encounter for other specified sp ecial examinations Sarah Lee MD Plan of Treatment Future Appointment(s):* 12/11/2020 9:00 am - Kianna Montemayor NP at DR. Sarah Lee 09/10/2020 - Kianna Montemayor NP* E11.22 Type [...] not allowed to take insulin at work. Pt states he is unable to afford $60 copay for all brand medications. He is not eligible for patient assistance or co-pay cards. Pt was provided with samples of Trulicity, Jardiance, Tresiba and NovologHopefully this will help until he can get aheadRTO 3 months * Follow up:* 3 months THERESA * N18.2 Chronic kidney disease, stage 2 [...]
--- OUTSIDE RECORDS SUMMARY | 2020-10-10 14:59 | CCD ---
Author Organization Unknown Address [address] [place] [address] Phone [phone] Care Team Providers Care Head Of Store Operations Name Role Phone MAYURI LOCKWOOD MD 3 [phone] Allergies Code Code System Name Reaction Severity Status Onset [id number] RxNorm Invokana Anaphylaxis Severe Active Medications Name Status Start Date Stop Date acetaminophen 300 mg-codeine 30 mg table t as needed Active 04/03/2019 Not available Ajovy Syringe 225 mg/1.5 mL subcutaneous Active Not available albuterol sulfate HFA 90 mcg/actuation aerosol inhaler Active Not available allopurinol 100 mg tablet Active Not av ailable amoxicillin [...] 100 mg tablet Completed 07/03/2020 Flucelvax Quad 3252-0285 60 mcg (15 mcg x 4)/0.5 mL [...] able meloxicam 7.5 mg tablet Completed 07/03/20 20 metaxalone 800 mg tablet Active Not suzanne ilable metformin 1,000 mg tablet Completed 2019 metformin ER 500 mg tablet,extended rele ase 24 hr 2 pills twice a day Active Not available metoclopramide 10 mg tablet [...] Result Interpretation Description Value Range Status Address 06/16/2020 [facility] Pdf Report NOS No observation recorded. 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 [employer]: [address] [facility], [place] Past Encounters 08/06/2020 Cervical Spondylosis without Myelopathy; Cervicogenic Headache; Cervical Radiculopathy; Displacement of Cervical Intervertebral Disc without Myelopathy; Degeneration of Cervical Intervertebral Disc; Lumbar Post-laminectomy Syndrome; Degeneration of Lumbar Intervertebral Disc; Degeneration of Lumbosacral Intervertebral Disc; Displacement of Lumbar Intervertebral Disc without Myelopathy; Intervertebral Disc Disorder; Spondylosis without Myelopathy; Lumbosacral Spondylosis without Myelopathy; Lumbar Radiculopathy Nyla Boland NP: [address] [address], [place] [address], Ph. 07/03/2020 Cervical Spondylosis without Myelopathy; Cervicogenic Headache; Cervical Radiculopathy; Displacement of Cervical Intervertebral Disc without Myelopathy; Degeneration of Cervical Intervertebral Disc; Low Back Pain; Lumbar Post- laminectomy Syndrome; Degeneration of Lumbar Intervertebral Disc; Degeneration of Lumbosacral Intervertebral Disc; Displacement of Lumbar Intervertebral Disc without Myelopathy; Intervertebral Disc Disorder; Spondylosis without Myelopathy; Lumbosacral Spondylosis without Myelopathy Nyla Boland CLINICAL TRIAL LEADER: [address] [facility], [facility] [place] [address], Ph. 06/20/2020 Cervical Radiculopathy; Displacement of Cervical Intervertebral Disc without Myelopathy; Degeneration of Cervical Intervertebral Disc; Cervical Spondylosis without Myelopathy; Cervicogenic Headache; Low Back Pain Stephon uCllen MD: [address] [facility] [address], [facility] [place] [address], Ph. 06/16/2020 Pre-surgery Testing; Viral Screening Stephon Cullen MD: [address] [facility] [address], [facility] [place] [address], Ph. [phone] 06/06/2020 Cervical Radiculopathy; Displacement of Cervical Intervertebral Disc without Myelopathy; Degeneration of Cervical Intervertebral Disc; Cervical Spondylosis without Myelopathy; Cervicogenic Headache; Low Back Pain Stephon Cullen MD: [id number] [facility] [address], [facility] [place] [address], Ph. 06/02/2020 Pre-surgery Testing; Viral Screening Stephon Cullen MD: [address] [address], [facility] [place] [address], Ph. [phone] 05/23/2020 Cervical Spondylosis without Myelopathy; Cervicogenic Headache; Cervical Radiculopathy; Displacement of Cervical Intervertebral Disc without Myelopathy; Degeneration of Cervical Intervertebral Disc; Low Back Pain Nyla Boland CLINICAL TRIAL LEADER: [address] [facility] [address], [facility] [place] [address], Ph. 08/10/2019 Cervical Spondylosis without Myelopathy; Cervicogenic Headache; Cervical Radiculopathy; Displacement of Cervical Intervertebral Disc without Myelopathy; Degeneration of Cervical Intervertebral Disc Nyla Boland, CLINICAL TRIAL LEADER: [address] [facility] [address], [facility] [place] [address], Ph. 06/15/2019 Cervical Spondylosis without Myelopathy; Cervicogenic Headache; Cervical Radiculopathy; Displacement of Cervical Intervertebral Disc without Myelopathy; Degeneration of Cervical Intervertebral Disc Nyla Boland, CLINICAL TRIAL LEADER: [address] [facility] [address], [facility] [place] [address], Ph. 05/25/2019 Cervical Radiculopathy; Displacement of Cervical Intervertebral Disc without Myelopathy; Degeneration of Cervical Intervertebral Disc; Cervicogenic Headache; Cervical Spondylosis without Myelopathy Stephon Cullen MD: [address] [facility] [address], [facility] [place] [address], Ph. 05/11/2019 Cervical Radiculopathy; Displacement of Cervical Intervertebral Disc without Myelopathy; Degeneration of Cervical Intervertebral Disc; Cervicogenic Headache; Cervical Spondylosis without Myelopathy Stephon Cullen MD: [address] [address], [facility] [place] [address], Ph. 04/27/2019 Cervical Radiculopathy; Displacement of Cervical Intervertebral Disc without Myelopathy; Degeneration of Cervical Intervertebral Disc; Cervicogenic Headache; Cervical Spondylosis without Myelopathy Stephon Cullen MD: [address] [address], [facility] [place] [address], Ph. 04/13/2019 Cervical Spondylosis without Myelopathy; Cervicogenic Headache; Cervical Radiculopathy; Displacement of Cervical Intervertebral Disc without Myelopathy; Degeneration of Cervical Intervertebral Disc Nyla Boland NP: [address] [address], [place] [address], Ph. 04/03/2019 Cervical Spondylosis without Myelopathy; Cervicogenic Headache Stephon Cullen MD: [address] [address], [place] [address], Ph. Social History Tobacco Smoking Status Never Smoker Vaccine List None recorded. Plan of Care Reminders Provider Appointments None recorded. Lab None recorded. Referral None recorded. Procedures None recorded. Surgeries None recorded. Imaging None recorded. Vitals 08/06/2020 08:30AM FOLLOW-UP Height Blood Pressure 5 [...]
--- OUTSIDE RECORDS SUMMARY | 2020-10-10 14:59 | CCD ---
Author Organization Unknown Address [address] [place] [address] Phone [phone] Care Team Providers Care Sales Trainer Name Role Phone MAYURI LOCKWOOD MD 3 [phone] Allergies Code Code System Name Reaction Severity Status Onset 2158786 RxNorm Invokana Anaphylaxis Severe Active Medications Name [...] 100 mg tablet Completed 07/03/2020 Flucelvax Quad 7582-2222 60 mcg (15 mcg x 4)/0.5 mL [...] NOS No observation recorded. [facility]: [address] [facility], [place] 06/16/2020 COVID-19 RNA (SARS-CoV-2), QL, education program coordinator-PCR, Respirat ory Specimen NOS Normal Sars-cov-2 negative negative Final [facility]: [address] [facility], [place] 06/02/2020 COVID-19 RNA (SARS-CoV-2), QL, education program coordinator-PCR, Respiratory Specim en No observation recorded. [employer]: [address] [facility], [place] Past Encounters 08/13/2020 Pre-surgery Testing; Viral Screening Stephon Cullen MD: [address], [facility] [place] [address], Ph. [phone] 08/06/2020 Cervical Spondylosis without Myelopathy; Cervicogenic Headache; Cervical Radiculopathy; Displacement of Cervical Intervertebral Disc without Myelopathy; Degeneration of Cervical Intervertebral Disc; Lumbar Post-laminectomy Syndrome; Degeneration of Lumbar Intervertebral Disc; Degeneration of Lumbosacral Intervertebral Disc; Displacement of Lumbar Intervertebral Disc without Myelopathy; Intervertebral Disc Disorder; Spondylosis without Myelopathy; Lumbosacral Spondylosis without Myelopathy; Lumbar Radiculopathy Nyla Boland NP: [address], [place] [address], Ph. 07/03/2020 Cervical Spondylosis without Myelopathy; Cervicogenic Headache; Cervical Radiculopathy; Displacement of Cervical Intervertebral Disc without Myelopathy; Degeneration of Cervical Intervertebral Disc; Low Back Pain; Lumbar Post- laminectomy Syndrome; Degeneration of Lumbar Intervertebral Disc; Degeneration of Lumbosacral Intervertebral Disc; Displacement of Lumbar Intervertebral Disc without Myelopathy; Intervertebral Disc Disorder; Spondylosis without Myelopathy; Lumbosacral Spondylosis without Myelopathy Nyla Boland NP: [address], [place] [address], Ph. 06/20/2020 Cervical Radiculopathy; Displacement of Cervical Intervertebral Disc without Myelopathy; Degeneration of Cervical Intervertebral Disc; Cervical Spondylosis without Myelopathy; Cervicogenic Headache; Low Back Pain Stephon Cullen MD: [address], [facility] [place] [address], Ph. 06/16/2020 Pre-surgery Testing; Viral Screening Stephon Cullen MD: [address] [facility] [address], [facility] [place] [address], Ph. [phone] 06/06/2020 Cervical Radiculopathy; Displacement of Cervical Intervertebral Disc without Myelopathy; Degeneration of Cervical Intervertebral Disc; Cervical Spondylosis without Myelopathy; Cervicogenic Headache; Low Back Pain Stephon Cullen MD: [address] [facility] [address] , [place] [address], Ph. 06/02/2020 Pre-surgery Testing; Viral Screening Stephon Cullen MD: [address] [facility] [address], [facility] [place] [address], Ph. [phone] 05/23/2020 Cervical Spondylosis without Myelopathy; Cervicogenic Headache; Cervical Radiculopathy; Displacement of Cervical Intervertebral Disc without Myelopathy; Degeneration of Cervical Intervertebral Disc; Low Back Pain Nyla Boland, FACILITY COORDINATOR: [address] [facility] [address] , [place] [address], Ph. 08/10/2019 Cervical Spondylosis without Myelopathy; Cervicogenic Headache; Cervical Radiculopathy; Displacement of Cervical Intervertebral Disc without Myelopathy; Degeneration of Cervical Intervertebral Disc Nyla Boland, FACILITY COORDINATOR: [address] [facility] [address], [facility] [place] [address], Ph. 06/15/2019 Cervical Spondylosis without Myelopathy; Cervicogenic Headache; Cervical Radiculopathy; Displacement of Cervical Intervertebral Disc without Myelopathy; Degeneration of Cervical Intervertebral Disc Nyla Boland, FACILITY COORDINATOR: [address] [facility] [address], [facility] [place] [address], Ph. 05/25/2019 Cervical Radiculopathy; Displacement of Cervical Intervertebral Disc without Myelopathy; Degeneration of Cervical Intervertebral Disc; Cervicogenic Headache; Cervical Spondylosis without Myelopathy Stephon Cullen MD: [address] [address], [place] [address], Ph. 05/11/2019 Cervical Radiculopathy; Displacement of Cervical Intervertebral Disc without Myelopathy; Degeneration of Cervical Intervertebral Disc; Cervicogenic Headache; Cervical Spondylosis without Myelopathy Stephon Cullen MD: [address] [address], Ph. 04/27/2019 Cervical Radiculopathy; Displacement of Cervical Intervertebral Disc without Myelopathy; Degeneration of Cervical Intervertebral Disc; Cervicogenic Headache; Cervical Spondylosis without Myelopathy Stephon Cullen MD: [address] [address], [place] [address], Ph. 04/13/2019 Cervical Spondylosis without Myelopathy; Cervicogenic Headache; Cervical Radiculopathy; Displacement of Cervical Intervertebral Disc without Myelopathy; Degeneration of Cervical Intervertebral Disc Nyla Boland NP: [address] [address], [place] [address], Ph. 04/03/2019 Cervical Spondylosis without Myelopathy; Cervicogenic Headache Stephon Cullen MD: [address] [address], [place] [address], Ph. Social History Tobacco Smoking Status Never [...]
--- OUTSIDE RECORDS SUMMARY | 2020-10-10 14:59 | CCD | Continuity of Care Document ---
Author Author Guille WISDOM P.A.-C. Organization Unknown Address [address] [place] [address] Phone [phone] Care Team Providers Care Certified Fire Investigator Name Role Phone Lacy Callahan D.O. AUTM [phone] Problems Active Problems Provider Date Labyrinthitis Lane Ferrell M.D. Onset: 03/11/[address] Ferrell M.D. Onset: 03/11/2014 Social History Type Date Description Comments Sex Unknown Tobacco Use Start: Unknown Patient has never smoked Allergies, Adverse Reactions, Alerts Active Allergies Reaction Severity Comments Date Invokana renal and hepatic failure, p ancreatitis 05/01/2015 Prednisone vertigo 08/05/2015 Inactive Allergies NKDA 03/11/2014 Medications Active Medications SIG Qnty Indications Ordering Provide r Date Divalproex Sodium 500mg Tablets DR 1 po qhs 90tabs G43.[address] Ferrell M.D. 09/20/2019 Ondansetron 8mg Tablets Dispers 1 po tid prn 270tabs Elizabeth Lora M.D. 03/13/2019 Meclizine HCL 25mg Tablets Take One Tablet By Mouth Three Times A Day as Needed 90tabs R42 Elizabeth Lora M.D. 05/19/2018 Immunizations Description No Information Available Vital Signs Date Vital Result Comment 09/20/2019 6:15am BP Systolic 110 mmHg BP Diastolic 70 mmHg Heart Rate 76 /min Respiratory Rate 16 /min 08/20/2019 5:43am BP Systolic 110 mmHg BP Diastolic 70 mmHg Heart Rate 112 /min Respiratory Rate 20 /min Results Description No Information Available Procedures Date Code Description Status 04/25/2020 56055 MRI Spine Lumbar W/O Contrast Co mpleted 04/25/2020 85152 MRI Spine Lumbar W/O Contrast Co mpleted 04/25/2020 57686 MRI Spine Cervical W/O Contrast Completed 04/25/2020 64374 MRI Spine Cervical W/O Contrast Completed Medical Devices Description No Information Available Encounters Type Date Location Provider Dx Diagnosis Office Visit 07/22/2020 9:00a Main office - [place] Mike Long.A.-C. M54.2 Cervicalgia M47.892 Other spondylosis, cervical region M54.5 Low back pain M51.36 Other intervertebral disc de generation, lumbar region Assessments Date Code Description Provider 07/22/2020 M54.2 Cervicalgia Carmen Wisdom P.A.-C. 07/22/2020 M47.892 Other spondylosis, cervical cal on Mike Lozano.A.-C. 07/22/2020 M54.5 Low back pain Mike Lozano.A.-C. 07/22/2020 M51.36 Other intervertebral disc degene ration, lumbar region Mike Lozano.A.-C. 04/25/2020 M54.2 Cervicalgia Elizabeth Geno, M.D . 04/25/2020 M54.2 Cervicalgia MRI 04/25/2020 M47.892 Other spondylosis, cervical cal on Elizabeth Geno, M.D. 04/25/2020 M47.892 Other spondylosis, cervical cal on MRI 04/25/2020 M54.5 Low back pain Elizabeth Geno, M.D . 04/25/2020 M54.5 Low back pain MRI 04/25/2020 M51.36 Other intervertebral disc degene ration, lumbar region Elizabeht Geno, M.D. 04/25/2020 M51.36 Other intervertebral disc degene ration, lumbar region MRI 04/25/2020 M47.896 Other spondylosis, lumbar region Elizabeth Geno, M.D. 04/25/2020 M47.896 Other spondylosis, lumbar region MRI 04/18/2020 M54.2 Cervicalgia Mike Lozano.A.-C. 04/18/2020 M47.892 Other spondylosis, cervical cal on Risa LozanoCMac 04/18/2020 M54.5 Low back pain Risa LozanoCMac 04/18/2020 M51.36 Other intervertebral disc degene ration, lumbar region Selwyn LozanoAMac-C. 04/18/2020 M47.896 Other spondylosis, lumbar region Carmen Wisdom P.A.-C. 04/18/2020 G43.719 Chronic migraine without aura, i ntractable, without status m Selwyn LozanoAMac-CMac 04/18/2020 R42 Dizziness and giddiness Carmen Wisdom P.A.-C. Plan of Treatment Future Appointment(s):* 01/23/2021 9:00 am - Carmen Wisdom P.A.-C. at Main office [facility] 07/22/2020 - Carmen Wisdom P.A.-C.* M54.2 Cervicalgia * M47.892 Other spondylosis, cervical region * M54.5 Low back pain * M51.36 Other intervertebral disc degeneration, lumbar region Functional Status Description No Information Available Mental Status Description No Information Available Referrals Refer to Dr Reason for Referral Status Appt Date Stephon Cullen M.D. NECK AND BACK PAIN Created [facility] [address] [address] [phone] Elizabeth Lora M.D. Created [facility] [address] [place] [address] [phone] Elizabeth Lora M.D. Created [facility] [address] [place] [address] [phone]
--- OUTSIDE RECORDS SUMMARY | 2020-10-10 14:59 | CCD | Continuity of Care Document ---
Author Author Guille WISDOM P.A.-C. Organization Unknown Address [address] [place] [address] Phone [phone] Care Team Providers Care Console Operator Name Role Phone Lacy Callahan D.O. AUTM [phone] Problems Active Problems Provider Date Labyrinthitis Lane [...] Available Procedures Date Code Description Status 04/25/2020 34994 MRI Spine Lumbar W/O Contrast Co mpleted 04/25/2020 22189 MRI Spine Lumbar W/O Contrast Co mpleted 04/25/2020 67311 MRI Spine Cervical W/O Contrast Completed 04/25/2020 67118 MRI Spine Cervical W/O Contrast Completed Medical Devices Description No Information Available Encounters Description No Information Available Assessments Date Code Description Provider 07/22/2020 M54.2 Cervicalgia Carmen Wisdom P.A.-C. 07/22/2020 M47.892 Other spondylosis, cervical cal on Carmen Wisdom P.A.-C. 07/22/2020 M54.5 Low back pain Carmen Wisdom P.A.-C. 07/22/2020 M51.36 Other intervertebral disc degene ration, [...] Other intervertebral disc degene ration, lumbar region Elizabeth Geno, M.D. 04/25/2020 M51.36 Other intervertebral disc degene ration, lumbar region MRI 04/25/2020 M47.896 Other spondylosis, lumbar region Elizabeth Geno, M.D. 04/25/2020 M47.896 Other spondylosis, lumbar region MRI 04/18/2020 M54.2 Cervicalgia Carmen Wisdom P.A.-C. 04/18/2020 M47.892 Other spondylosis, cervical cal on Carmen Wisdom P.A.-C. 04/18/2020 M54.5 Low back pain Carmen Wisdom P.A.-C. 04/18/2020 M51.36 Other intervertebral disc degene ration, lumbar region Carmen Wisdom P.A.-C. 04/18/2020 M47.896 Other spondylosis, lumbar region Carmen Wisdom P.A.-C. 04/18/2020 G43.719 Chronic migraine without aura, i ntractable, without status m Carmen Wisdom P.A.-C. 04/18/2020 R42 Dizziness and giddiness Carmen Wisdom P.A.-C. Plan of Treatment No Information Available Functional Status Description No Information Available Mental Status Description No Information Available Referrals Refer to Reason for Referral Status Appt Date Stephon Cullen M.D. NECK AND BACK PAIN Created [facility] [address] [address] [phone] Elizabeth Lora M.D. Created [facility] [address] [place] [address] [phone] Elizabeth Lora M.D. Created [facility] [address] [place] [address] [phone]
--- OUTSIDE RECORDS SUMMARY | 2020-10-10 14:59 | CCD ---
Author Organization Unknown Address [address] [place] [address] Phone [phone] Care Team Providers Care Order Administrator Name Role Phone MAYURI LOCKWOOD MD 3 [phone] Allergies Code Code System Name Reaction Severity Status Onset 0504294 RxNorm Invokana Anaphylaxis Severe Active Medications Name [...] 100 mg tablet Completed 07/03/2020 Flucelvax Quad 9176-8271 60 mcg (15 mcg x 4)/0.5 mL [...] Completed 2019 metformin ER 500 mg tablet,extended release 24 [...] Result Interpretation Description Value Range Status Address 08/13/2020 [facility] Pdf Report NOS No observation recorded. [facility]: [address] [facility], [place] 08/13/2020 COVID-19 RNA (SARS-CoV-2), QL, miniature set designer-PCR, Respirat ory Specimen NOS Normal Sars-cov-2 negative negative Final [facility]: [address] [facility], [place] 06/16/2020 [facility] Pdf Report NOS No observation recorded. [facility]: [address] [facility], [place] 06/16/2020 COVID-19 RNA (SARS-CoV-2), QL, miniature set designer-PCR, Respirat ory Specimen NOS Normal Sars-cov-2 negative negative Final [facility]: [address] [facility], [place] 06/02/2020 COVID-19 RNA (SARS-CoV-2), QL, miniature set designer-PCR, Respiratory Specim en No observation recorded. [employer]: [address] [place] [address], [place] Past Encounters 08/18/2020 Lumbar Post-laminectomy Syndrome; Lumbar Radiculopathy; Degeneration of Lumbar Intervertebral Disc; Degeneration of Lumbosacral Intervertebral Disc; Displacement of Lumbar Intervertebral Disc without Myelopathy; Intervertebral Disc Disorder; Spondylosis without Myelopathy; Lumbosacral Spondylosis without Myelopathy; Cervical Radiculopathy; Degeneration of Cervical Intervertebral Disc; Displacement of Cervical Intervertebral Disc without Myelopathy; Cervical Spondylosis without Myelopathy; Cervicogenic Headache Stephon Cullen MD: [address] [facility] [address], [place] [address], Ph. 08/13/2020 Pre-surgery Testing; Viral Screening Stephon Cullen MD: [address] [facility] [address], [place] [address], Ph. [phone] 08/06/2020 Cervical Spondylosis without Myelopathy; Cervicogenic Headache; Cervical Radiculopathy; Displacement of Cervical Intervertebral Disc without Myelopathy; Degeneration of Cervical Intervertebral Disc; Lumbar Post-laminectomy Syndrome; Degeneration of Lumbar Intervertebral Disc; Degeneration of Lumbosacral Intervertebral Disc; Displacement of Lumbar Intervertebral Disc without Myelopathy; Intervertebral Disc Disorder; Spondylosis without Myelopathy; Lumbosacral Spondylosis without Myelopathy; Lumbar Radiculopathy Nyla Woodson Jackiejailynjose, [employer]: [address] [address], [place] [address], Ph. 07/03/2020 Cervical Spondylosis without Myelopathy; Cervicogenic Headache; Cervical Radiculopathy; Displacement of Cervical Intervertebral Disc without Myelopathy; Degeneration of Cervical Intervertebral Disc; Low Back Pain; Lumbar Post- laminectomy Syndrome; Degeneration of Lumbar Intervertebral Disc; Degeneration of Lumbosacral Intervertebral Disc; Displacement of Lumbar Intervertebral Disc without Myelopathy; Intervertebral Disc Disorder; Spondylosis without Myelopathy; Lumbosacral [facility]osis [facility] Jackiejailynjose, [place] W[place]: [address] [address], Ph. 06/20/2020 Cervical Radiculopathy; Displacement of Cervical Intervertebral Disc without Myelopathy; Degeneration of Cervical Intervertebral Disc; Cervical Spondylosis without Myelopathy; Cervicogenic Headache; Low Back Pain Stephon Cullen MD: [address] [address], Ph. 06/16/2020 Pre-surgery Testing; Viral Screening Stephon Cullen MD: [address] [address], Ph. [phone] 06/06/2020 Cervical Radiculopathy; Displacement of Cervical Intervertebral Disc without Myelopathy; Degeneration of Cervical Intervertebral Disc; Cervical Spondylosis without Myelopathy; Cervicogenic Headache; Low Back Pain Stephon Cullen MD: [address] [address], Ph. 06/02/2020 Pre-surgery Testing; Viral Screening Stephon Cullen MD: [address] [address], Ph. [phone] 05/23/2020 Cervical Spondylosis without Myelopathy; Cervicogenic Headache; Cervical Radiculopathy; Displacement of Cervical Intervertebral Disc without Myelopathy; Degeneration of Cervical Intervertebral Disc; Low Back Pain Nyla Chintan Krystian, [employer] W[employer]ER: [address] [address], [place] [address], Ph. 08/10/2019 Cervical Spondylosis without Myelopathy; Cervicogenic Headache; Cervical Radiculopathy; Displacement of Cervical Intervertebral Disc without Myelopathy; Degeneration of Cervical Intervertebral Disc Nyla Boland, WAGON WINDER: [address] [address], [place] [address], Ph. 06/15/2019 Cervical Spondylosis without Myelopathy; Cervicogenic Headache; Cervical Radiculopathy; Displacement of Cervical Intervertebral Disc without Myelopathy; Degeneration of Cervical Intervertebral Disc Nyla Bronson [facility] Krystian, [place] W[place]: [address] [address], [place] [address], Ph. 05/25/2019 Cervical Radiculopathy; Displacement of Cervical Intervertebral Disc without Myelopathy; Degeneration of Cervical Intervertebral Disc; Cervicogenic Headache; Cervical Spondylosis without Myelopathy Stephon Cullen MD: [address] [address], [place] [address], Ph. 05/11/2019 Cervical Radiculopathy; Displacement of Cervical Intervertebral Disc without Myelopathy; Degeneration of Cervical Intervertebral Disc; Cervicogenic Headache; Cervical Spondylosis without Myelopathy Stephon Cullen MD: [address] [address], [place] [address], Ph. 04/27/2019 Cervical Radiculopathy; Displacement of Cervical Intervertebral Disc without Myelopathy; Degeneration of Cervical Intervertebral Disc; Cervicogenic Headache; Cervical Spondylosis without Myelopathy Stephon Cullen MD: [address] [address], [place] [address], Ph. 04/13/2019 Cervical Spondylosis without Myelopathy; Cervicogenic Headache; Cervical Radiculopathy; Displacement of Cervical Intervertebral Disc without Myelopathy; Degeneration of Cervical Intervertebral Disc Nyla Boland, WAGON WINDER: [address] [address], [place] [address], Ph. 04/03/2019 Cervical Spondylosis without Myelopathy; Cervicogenic Headache Stephon Cullen MD: [address], [place] [address], Ph. Social History Tobacco Smoking Status Never [...]
--- OUTSIDE RECORDS SUMMARY | 2020-10-10 14:59 | CCD ---
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 Aegleatha Covid: Surinder [facility] [place] 08/13/2020 COVID-19 RNA (SARS-CoV-2), QL, [employer]-PCR, Respirat ory Specimen NOS Normal Sars-cov-2 negative negative Final Aegleatha Covid: Surinder [facility] [place] 06/16/2020 Aegis Pdf Report NOS No observation recorded. Aegleatha Covid: Surinder [facility] [place] 06/16/2020 COVID-19 RNA (SARS-CoV-2), QL, [employer]-PCR, Respirat ory Specimen NOS Normal Sars-cov-2 negative negative Final Aegleatha Covid: Surinder [facility] [place] 06/02/2020 COVID-19 RNA (SARS-CoV-2), QL, [employer]-PCR, Respiratory Specim en No observation recorded. [email or web address]: [address] [place] [address] Past Encounters 09/08/2020 Pre-surgery Testing; Viral Screening Stephon Cullen MD: [id number] [facility], [facility] [place] [address], Ph. [phone] 08/18/2020 Lumbar Post-laminectomy Syndrome; Lumbar Radiculopathy; Degeneration of Lumbar Intervertebral Disc; Degeneration of Lumbosacral Intervertebral Disc; Displacement of Lumbar Intervertebral Disc without Myelopathy; Intervertebral Disc Disorder; Spondylosis without Myelopathy; Lumbosacral Spondylosis without Myelopathy; Cervical Radiculopathy; Degeneration of Cervical Intervertebral Disc; Displacement of Cervical Intervertebral Disc without Myelopathy; Cervical Spondylosis without Myelopathy; Cervicogenic Headache Stephon Cullen MD: [id number] [facility] [address], [facility] [place] [address], Ph. 08/13/2020 Pre-surgery Testing; Viral Screening Stephon Cullen MD: [id number] [facility], [facility] [place] [address], Ph. [phone] 08/06/2020 Cervical Spondylosis without Myelopathy; Cervicogenic Headache; Cervical Radiculopathy; Displacement of Cervical Intervertebral Disc without Myelopathy; Degeneration of Cervical Intervertebral Disc; Lumbar Post-laminectomy Syndrome; Degeneration of Lumbar Intervertebral Disc; Degeneration of Lumbosacral Intervertebral Disc; Displacement of Lumbar Intervertebral Disc without Myelopathy; Intervertebral Disc Disorder; Spondylosis without Myelopathy; Lumbosacral Spondylosis without Myelopathy; Lumbar Radiculopathy Nyla Mejiacolleen, [employer]: [id number] [address], Ph. 07/03/2020 Cervical Spondylosis without Myelopathy; Cervicogenic Headache; Cervical Radiculopathy; Displacement of Cervical Intervertebral Disc without Myelopathy; Degeneration of Cervical Intervertebral Disc; Low Back Pain; Lumbar Post- laminectomy Syndrome; Degeneration of Lumbar Intervertebral Disc; Degeneration of Lumbosacral Intervertebral Disc; Displacement of Lumbar Intervertebral Disc without Myelopathy; Intervertebral Disc Disorder; Spondylosis without Myelopathy; Lumbosacral Spondylosis without Myelopathy Nyla Boland, [employer]: [id number] [address], Ph. 06/20/2020 Cervical Radiculopathy; Displacement of Cervical Intervertebral Disc without Myelopathy; Degeneration of Cervical Intervertebral Disc; Cervical Spondylosis without Myelopathy; Cervicogenic Headache; Low Back Pain Stephon Cullen MD: [id number] [address], Ph. 06/16/2020 Pre-surgery Testing; Viral Screening Stephon Cullen MD: [id number] [address], Ph. [phone] 06/06/2020 Cervical Radiculopathy; Displacement of Cervical Intervertebral Disc without Myelopathy; Degeneration of Cervical Intervertebral Disc; Cervical Spondylosis without Myelopathy; Cervicogenic Headache; Low Back Pain Stephon Cullen MD: [id number] [address], Ph. 06/02/2020 Pre-surgery Testing; Viral Screening Stephon Cullen MD: [id number] [address], Ph. [phone] 05/23/2020 Cervical Spondylosis without Myelopathy; Cervicogenic Headache; Cervical Radiculopathy; Displacement of Cervical Intervertebral Disc without Myelopathy; Degeneration of Cervical Intervertebral Disc; Low Back Pain Nyla Boland, [employer]: [id number] [address], [place] [address], Ph. 08/10/2019 Cervical Spondylosis without Myelopathy; Cervicogenic Headache; Cervical Radiculopathy; Displacement of Cervical Intervertebral Disc without Myelopathy; Degeneration of Cervical Intervertebral Disc Nyla Boland, [employer]: [id number] [address], Ph. 06/15/2019 Cervical Spondylosis without Myelopathy; Cervicogenic Headache; Cervical Radiculopathy; Displacement of Cervical Intervertebral Disc without Myelopathy; Degeneration of Cervical Intervertebral Disc Nyla Boland, [employer]: [id number] [place] [address], Ph. 05/25/2019 Cervical Radiculopathy; Displacement of Cervical Intervertebral Disc without Myelopathy; Degeneration of Cervical Intervertebral Disc; Cervicogenic Headache; Cervical Spondylosis without Myelopathy Stephon Cullen MD: [id number] [address], [place] [address], Ph. 05/11/2019 Cervical Radiculopathy; Displacement of Cervical Intervertebral Disc without Myelopathy; Degeneration of Cervical Intervertebral Disc; Cervicogenic Headache; Cervical Spondylosis without Myelopathy Stephon Cullen MD: [id number] [address], [place] [address], Ph. 04/27/2019 Cervical Radiculopathy; Displacement of Cervical Intervertebral Disc without Myelopathy; Degeneration of Cervical Intervertebral Disc; Cervicogenic Headache; Cervical Spondylosis without Myelopathy Stephon Cullen MD: [id number] [address], [place] [address], Ph. 04/13/2019 Cervical Spondylosis without Myelopathy; Cervicogenic Headache; Cervical Radiculopathy; Displacement of Cervical Intervertebral Disc without Myelopathy; Degeneration of Cervical Intervertebral Disc Nyla Boland NP: [id number] [facility] [address], [facility] [place] [address], Ph. 04/03/2019 Cervical Spondylosis without Myelopathy; Cervicogenic Headache Stephon Cullen MD: [id number] [facility] [address], [facility] [place] [address], Ph. Social History Tobacco Smoking Status Never [...]
--- OUTSIDE RECORDS SUMMARY | 2020-10-10 15:01 | CCD ---
Author Author [facility] Organization [facility] Address Unknown Phone Unavailable Care Team Providers Care Needle Leader Name Role Phone Jumalon, M Nyla BUSINESS ANALYST INTERN Unavailable Unavailable Jumalon, M Nyla BUSINESS ANALYST INTERN Unavailable Unavailable Jumalon, M Nyla BUSINESS ANALYST INTERN Unavailable Unavailable Jumalon, M Nyla BUSINESS ANALYST INTERN Unavailable Unavailable Jumalon, M Nyla BUSINESS ANALYST INTERN Unavailable Unavailable Jumalon, M Nyla BUSINESS ANALYST INTERN Unavailable Unavailable Jumalon, M Nyla BUSINESS ANALYST INTERN Unavailable Unavailable Jumalon, M Nyla BUSINESS ANALYST INTERN Unavailable Unavailable Jumalon, M Nyla BUSINESS ANALYST INTERN Unavailable Unavailable Jumalon, M Nyla BUSINESS ANALYST INTERN Unavailable Unavailable Jumalon, M Nyla BUSINESS ANALYST INTERN Unavailable Unavailable Jumalon, M Nyla BUSINESS ANALYST INTERN Unavailable Unavailable Jumalon, M Nyla BUSINESS ANALYST INTERN Unavailable Unavailable Jumalon, M Nyla BUSINESS ANALYST INTERN Unavailable Unavailable Jumalon, M Nyla BUSINESS ANALYST INTERN Unavailable Unavailable Jumalon, M Nyla BUSINESS ANALYST INTERN Unavailable Unavailable Jumalon, M Nyla BUSINESS ANALYST INTERN Unavailable Unavailable Jumalon, M Nyla BUSINESS ANALYST INTERN Unavailable Unavailable Jumalon, M Nyla BUSINESS ANALYST INTERN Unavailable Unavailable Jumalon, M Nyla BUSINESS ANALYST INTERN Unavailable Unavailable Jumalon, M Nyla BUSINESS ANALYST INTERN Unavailable Unavailable Jumalon, M Nyla BUSINESS ANALYST INTERN Unavailable Unavailable Jumalon, M Nyla BUSINESS ANALYST INTERN Unavailable Unavailable Jumalon, M Nyla BUSINESS ANALYST INTERN Unavailable Unavailable Jumalon, M Nyla BUSINESS ANALYST INTERN Unavailable Unavailable Jumalon, M Nyla BUSINESS ANALYST INTERN Unavailable Unavailable Jumalon, M Nyla BUSINESS ANALYST INTERN Unavailable Unavailable Jumalon, M Nyla BUSINESS ANALYST INTERN Unavailable Unavailable Trickey, J Carmen PA Unavailable Unavailable Trickey, J Carmen PA Unavailable Unavailable Trickey, J Carmen PA Unavailable Unavailable Trickey, J Carmen PA Unavailable Unavailable Trickey, J Carmen PA Unavailable Unavailable Trickey, J Carmen PA Unavailable Unavailable Trickey, J Carmen PA Unavailable Unavailable Trickey, J Carmen PA Unavailable Unavailable Trickey, J Carmen PA Unavailable Unavailable Trickey, J Carmen PA Unavailable Unavailable Trickey, J Carmen PA Unavailable Unavailable Trickey, J Carmen PA Unavailable Unavailable Trickey, J Carmen PA Unavailable Unavailable Trickey, J Carmen PA Unavailable Unavailable Trickey, J Carmen PA Unavailable Unavailable Trickey, J Carmen PA Unavailable Unavailable Trickey, J Carmen PA Unavailable Unavailable Trickey, J Carmen PA Unavailable Unavailable Trickey, J Carmen PA Unavailable Unavailable Trickey, J Carmen PA Unavailable Unavailable Trickey, J Carmen PA Unavailable Unavailable Trickey, J Carmen PA Unavailable Unavailable Trickey, J Carmen PA Unavailable Unavailable Trickey, J Carmen PA Unavailable Unavailable Trickey, J Carmen PA Unavailable Unavailable Trickey, J Carmen PA Unavailable Unavailable Trickey, J Carmen PA Unavailable Unavailable Trickey, J Carmen PA Unavailable Unavailable Trickey, J Carmen PA Unavailable Unavailable Trickey, J Carmen PA Unavailable Unavailable Trickey, J Carmen PA Unavailable Unavailable Trickey, J Carmen PA Unavailable Unavailable Trickey, J Carmen PA Unavailable Unavailable Trickey, J Carmen PA Unavailable Unavailable Trickey, J Carmen PA Unavailable Unavailable Trickey, J Carmen PA Unavailable Unavailable Trickey, J Carmen PA Unavailable Unavailable Trickey, J Carmen PA Unavailable Unavailable Trickey, J Carmen PA Unavailable Unavailable Trickey, J Carmen PA Unavailable Unavailable Trickey, J Carmen PA Unavailable Unavailable Trickey, J Carmen PA Unavailable Unavailable Trickey, J Carmen PA Unavailable Unavailable Trickey, J Carmen PA Unavailable Unavailable Trickey, J Carmen PA Unavailable Unavailable Trickey, J Carmen PA Unavailable Unavailable Trickey, J Carmen PA Unavailable Unavailable Trickey, J Carmen PA Unavailable Unavailable Trickey, J Carmen PA Unavailable Unavailable Trickey, J Carmen PA Unavailable Unavailable Trickey, J Carmen PA Unavailable Unavailable Trickey, J Carmen PA Unavailable Unavailable Paco Monreal MD Unavailable [phone] Paco Monreal MD Unavailable [phone] Malek, T Jeffreyza MD Unavailable [phone] Malek, T Hamza MD Unavailable [phone] Malek, T Hamza MD Unavailable [phone] Malek, T Hamza MD Unavailable [phone] Malek, T Hamza MD Unavailable [phone] Malek, T Hamza MD Unavailable [phone] Malek, T Hamza MD Unavailable [phone] Malek, T Hamza MD Unavailable [phone] Malek, T Hamza MD Unavailable [phone] Malek, T Hamza MD Unavailable [phone] Malek, T Hamza MD Unavailable [phone] Campanaro, Mare Deborah PA Unavailable Unavailable Campanaro, Mare Deborah PA Unavailable Unavailable Campanaro, Mare Deborah PA Unavailable Unavailable Campanaro, Mare Deborah PA Unavailable Unavailable Campanaro, Mare Deborah PA Unavailable Unavailable Campanaro, Mare Deborah PA Unavailable Unavailable Campanaro, Mare Deborah PA Unavailable Unavailable Campanaro, Mare Deborah PA Unavailable Unavailable Campanaro, Mare Deborah PA Unavailable Unavailable Campanaro, Mare Deborah PA Unavailable Unavailable Campanaro, Mare Deborah PA Unavailable Unavailable Campanaro, Mare Deborah PA Unavailable Unavailable Campanaro, Mare Deborah PA Unavailable Unavailable Campanaro, Mare Deborah PA Unavailable Unavailable Campanaro, Mare Deborah PA Unavailable Unavailable Campanaro, Mare Deborah PA Unavailable Unavailable Campanaro, Mare Deborah PA Unavailable Unavailable Campanaro, Mare Deborah PA Unavailable Unavailable Fish, B Sarah CARLSON Unavailable Unavailable Fish, Lanny Smith MD Unavailable Unavailable Fish, Lanny Smith MD Unavailable Unavailable Fish, Lanny Smith MD Unavailable Unavailable Fish, Lanny Smith MD Unavailable Unavailable Fish, Lanny Smith MD Unavailable Unavailable Fish, Lanny Smith MD Unavailable Unavailable Fish, Lanny Smith MD Unavailable Unavailable Fish, Lanny Smith MD Unavailable Unavailable Fish, Lanny Smith MD Unavailable Unavailable Fish, Lanny Smith MD Unavailable Unavailable Fish, B Sarah CARLSON Unavailable Unavailable Fish, Lanny Smith MD Unavailable Unavailable Fish, Lanny Smith MD Unavailable Unavailable Fish, B Sarah CARLSON Unavailable Unavailable Fish, B Sarah CARLSON Unavailable Unavailable Fish, B Sarah CARLSON Unavailable Unavailable Fish, B Sarah CARLSON Unavailable Unavailable Fish, Lanny Smith MD Unavailable Unavailable Fish, Lanny Smith MD Unavailable Unavailable Fish, Lanny Smith MD Unavailable Unavailable Fish, B Sarah CARLSON Unavailable Unavailable Fish, B Sarah CARLSON Unavailable Unavailable Fish, B Sarah CARLSON Unavailable Unavailable Fish, B Sarah CARLSON Unavailable Unavailable Fish, B Sarah CARLSON Unavailable Unavailable Fish, B Sarah CARLSON Unavailable Unavailable Fish, B Sarah CARLSON Unavailable Unavailable Fish, B Sarah CARLSON Unavailable Unavailable Fish, B Sarah CARLSON Unavailable Unavailable Fish, B Sarah CARLSON Unavailable Unavailable Fish, B Sarah CARLSON Unavailable Unavailable Fish, B Sarah CARLSON Unavailable Unavailable Fish, B Sarah CARLSON Unavailable Unavailable Fish, B Sarah CARLSON Unavailable Unavailable Fish, B Sarah CARLSON Unavailable Unavailable Fish, B Sarah CARLSON Unavailable Unavailable Fish, B Sarah CARLSON Unavailable Unavailable Fish, B Sarah CARLSON Unavailable Unavailable Fish, B Sarah CARLSON Unavailable Unavailable Fish, B Sarah CARLSON Unavailable Unavailable Fish, B Sarah CARLSON Unavailable Unavailable Fish, B Sarah CARLSON Unavailable Unavailable Fish, B Sarah CARLSON Unavailable Unavailable Fish, B Sarah CARLSON Unavailable Unavailable Fish, B Sarah CARLSON Unavailable Unavailable Fish, B Sarah CARLSON Unavailable Unavailable Fish, B Sarah CARLSON Unavailable Unavailable Fish, B Sarah CARLSON Unavailable Unavailable Fish, B Sarah CARLSON Unavailable Unavailable Fish, B Sarah CARLSON Unavailable Unavailable Fish, B Sarah CARLSON Unavailable Unavailable Fish, B Sarah CARLSON Unavailable Unavailable Fish, B Sarah CARLSON Unavailable Unavailable Fish, B Sarah CARLSON Unavailable Unavailable Fish, B Sarah CARLSON Unavailable Unavailable Fish, B Sarah CARLSON Unavailable Unavailable Fish, B Sarah CARLSON Unavailable Unavailable Fish, B Sarah CARLSON Unavailable Unavailable Fish, B Sarah CARLSON Unavailable Unavailable Fish, B Sarah CARLSON Unavailable Unavailable Fish, B Sarah CARLSON Unavailable Unavailable Fish, B Sarah CARLSON Unavailable Unavailable Fish, B Sarah CARLSON Unavailable Unavailable NIGEL, AIMEE PA Unavailable Unavailable NIGEL, AIMEE PA Unavailable Unavailable NIGEL, AIMEE PA Unavailable Unavailable NIGEL, AIMEE PA Unavailable Unavailable NIGEL, AIMEE PA Unavailable Unavailable NIGEL, AIMEE PA Unavailable Unavailable NIGEL, AIMEE PA Unavailable Unavailable NIGEL, AIMEE PA Unavailable Unavailable INGEL, AIMEE PA Unavailable Unavailable NIGEL, AIMEE PA Unavailable Unavailable NIGEL, AIMEE PA Unavailable Unavailable NIGEL, AIMEE PA Unavailable Unavailable NIGEL, AIMEE PA Unavailable Unavailable NIGEL, AIMEE PA Unavailable Unavailable NIGEL, AIMEE PA Unavailable Unavailable NIGEL, AIMEE PA Unavailable Unavailable NIGEL, AIMEE PA Unavailable Unavailable NIGEL, AIMEE PA Unavailable Unavailable NIGEL, AIMEE PA Unavailable Unavailable NIGEL, AIMEE PA Unavailable Unavailable NIGEL, AIMEE PA Unavailable Unavailable NIGEL, AIMEE PA Unavailable Unavailable NIGEL, AIMEE PA Unavailable Unavailable NIGEL, AIMEE PA Unavailable Unavailable NIGEL, AIMEE PA Unavailable Unavailable NIGEL, AIMEE PA Unavailable Unavailable NIGEL, AIMEE PA Unavailable Unavailable NIGEL, AIMEE PA Unavailable Unavailable NIGEL, AIMEE PA Unavailable Unavailable NIGEL, AIMEE PA Unavailable Unavailable NIGEL, AIMEE PA Unavailable Unavailable NIGEL, AIMEE PA Unavailable Unavailable NIGEL, AMIEE PA Unavailable Unavailable NIGEL, AIMEE PA Unavailable Unavailable NIGEL, AIMEE PA Unavailable Unavailable NIGEL, AIMEE PA Unavailable Unavailable NIGEL, AIMEE PA Unavailable Unavailable NIGEL, AIMEE PA Unavailable Unavailable COOK, B LESA RESIDENTIAL LAWN SPECIALIST Unavailable Unavailable COOK, B LESA RESIDENTIAL LAWN SPECIALIST Unavailable Unavailable COOK, B LESA RESIDENTIAL LAWN SPECIALIST Unavailable Unavailable COOK, B LESA RESIDENTIAL LAWN SPECIALIST Unavailable Unavailable COOK, B LESA RESIDENTIAL LAWN SPECIALIST Unavailable Unavailable COOK, B LESA RESIDENTIAL LAWN SPECIALIST Unavailable Unavailable COOK, B LESA RESIDENTIAL LAWN SPECIALIST Unavailable Unavailable COOK, B LESA RESIDENTIAL LAWN SPECIALIST Unavailable Unavailable COOK, B LESA RESIDENTIAL LAWN SPECIALIST Unavailable Unavailable COOK, B LESA RESIDENTIAL LAWN SPECIALIST Unavailable Unavailable COOK, B LESA RESIDENTIAL LAWN SPECIALIST Unavailable Unavailable COOK, B LESA RESIDENTIAL LAWN SPECIALIST Unavailable Unavailable COOK, B LESA RESIDENTIAL LAWN SPECIALIST Unavailable Unavailable COOK, B LESA RESIDENTIAL LAWN SPECIALIST Unavailable Unavailable COOK, B LESA RESIDENTIAL LAWN SPECIALIST Unavailable Unavailable COOK, B LESA RESIDENTIAL LAWN SPECIALIST Unavailable Unavailable COOK, B LESA RESIDENTIAL LAWN SPECIALIST Unavailable Unavailable COOK, B LESA RESIDENTIAL LAWN SPECIALIST Unavailable Unavailable COOK, B LESA RESIDENTIAL LAWN SPECIALIST Unavailable Unavailable COOK, B LESA RESIDENTIAL LAWN SPECIALIST Unavailable Unavailable COOK, B LESA RESIDENTIAL LAWN SPECIALIST Unavailable Unavailable COOK, B LESA RESIDENTIAL LAWN SPECIALIST Unavailable Unavailable COOK, B LESA RESIDENTIAL LAWN SPECIALIST Unavailable Unavailable COOK, B LESA RESIDENTIAL LAWN SPECIALIST Unavailable Unavailable COOK, B LESA RESIDENTIAL LAWN SPECIALIST Unavailable Unavailable COOK, B LESA RESIDENTIAL LAWN SPECIALIST Unavailable Unavailable COOK, B LESA RESIDENTIAL LAWN SPECIALIST Unavailable Unavailable COOK, B LESA RESIDENTIAL LAWN SPECIALIST Unavailable Unavailable COOK, B LESA RESIDENTIAL LAWN SPECIALIST Unavailable Unavailable COOK, B LESA RESIDENTIAL LAWN SPECIALIST Unavailable Unavailable COOK, B LESA RESIDENTIAL LAWN SPECIALIST Unavailable Unavailable COOK, B LESA RESIDENTIAL LAWN SPECIALIST Unavailable Unavailable COOK, B LESA RESIDENTIAL LAWN SPECIALIST Unavailable Unavailable COOK, B LESA RESIDENTIAL LAWN SPECIALIST Unavailable Unavailable COOK, B LESA RESIDENTIAL LAWN SPECIALIST Unavailable Unavailable COOK, B LESA RESIDENTIAL LAWN SPECIALIST Unavailable Unavailable COOK, B LESA RESIDENTIAL LAWN SPECIALIST Unavailable Unavailable COOK, B LESA RESIDENTIAL LAWN SPECIALIST Unavailable Unavailable COOK, B LESA RESIDENTIAL LAWN SPECIALIST Unavailable Unavailable COOK, B LESA RESIDENTIAL LAWN SPECIALIST Unavailable Unavailable COOK, B LESA RESIDENTIAL LAWN SPECIALIST Unavailable Unavailable COOK, B LESA RESIDENTIAL LAWN SPECIALIST Unavailable Unavailable COOK, B LESA RESIDENTIAL LAWN SPECIALIST Unavailable Unavailable COOK, B LESA RESIDENTIAL LAWN SPECIALIST Unavailable Unavailable COOK, B LESA RESIDENTIAL LAWN SPECIALIST Unavailable Unavailable COOK, B LESA RESIDENTIAL LAWN SPECIALIST Unavailable Unavailable COOK, B LESA RESIDENTIAL LAWN SPECIALIST Unavailable Unavailable COOK, B LESA RESIDENTIAL LAWN SPECIALIST Unavailable Unavailable COOK, B LESA RESIDENTIAL LAWN SPECIALIST Unavailable Unavailable COOK, B LESA RESIDENTIAL LAWN SPECIALIST Unavailable Unavailable COOK, B LESA RESIDENTIAL LAWN SPECIALIST Unavailable Unavailable COOK, B LESA RESIDENTIAL LAWN SPECIALIST Unavailable Unavailable COOK, B LESA RESIDENTIAL LAWN SPECIALIST Unavailable Unavailable COOK, B LESA RESIDENTIAL LAWN SPECIALIST Unavailable Unavailable COOK, B LESA RESIDENTIAL LAWN SPECIALIST Unavailable Unavailable COOK, B LESA RESIDENTIAL LAWN SPECIALIST Unavailable Unavailable COOK, B LESA RESIDENTIAL LAWN SPECIALIST Unavailable Unavailable COOK, B LESA RESIDENTIAL LAWN SPECIALIST Unavailable Unavailable COOK, B LESA RESIDENTIAL LAWN SPECIALIST Unavailable Unavailable COOK, B LESA RESIDENTIAL LAWN SPECIALIST Unavailable Unavailable COOK, B LESA RESIDENTIAL LAWN SPECIALIST Unavailable Unavailable COOK, B LESA RESIDENTIAL LAWN SPECIALIST Unavailable Unavailable COOK, B LESA RESIDENTIAL LAWN SPECIALIST Unavailable Unavailable COOK, B LESA RESIDENTIAL LAWN SPECIALIST Unavailable Unavailable BolDenise vora MD Unavailable Unavailable BolDenise vora MD Unavailable Unavailable BolDenise vora MD Unavailable Unavailable BolDenise vora MD Unavailable Unavailable BolDenise voraStephon MD Unavailable Unavailable BolDenise vora MD Unavailable Unavailable BolDenise voraStephon MD Unavailable Unavailable BolDenise voraStephon MD Unavailable Unavailable BolDenise vora MD Unavailable Unavailable BolDenise voraStephon MD Unavailable Unavailable BolDenise vora MD Unavailable Unavailable BolDenise voraStephon MD Unavailable Unavailable BolDenise vora MD Unavailable Unavailable Boldiony S Stephon MD Unavailable Unavailable Boldiony S Stephon CARLSON Unavailable Unavailable Boldiony S Stephon MD Unavailable Unavailable Boldiony S Stephon MD Unavailable Unavailable Bolla, S Stephon CARLSON Unavailable Unavailable Bolla, S Stephon CARLSON Unavailable Unavailable Bolla, S Stephon CARLSON Unavailable Unavailable Bolla, S Stephon CARLSON Unavailable Unavailable Bolla, S Stephon MD Unavailable Unavailable Bolla, S Stephon CARLSON Unavailable Unavailable Bolla, S Stephon CARLSON Unavailable Unavailable Bolla, S Stephon CARLSON Unavailable Unavailable Bolla, S Stephon CARLSON Unavailable Unavailable Bolla, S Stephon CARLSON Unavailable Unavailable Bolla, S Stephon CARLSON Unavailable Unavailable Bolla, S Stephon CARLSON Unavailable Unavailable Bolla, S Stephon CARLSON Unavailable Unavailable Bolla, S Stephon CARLSON Unavailable Unavailable Bolla, S Stephon CARLSON Unavailable Unavailable Bolla, S Stephon CARLSON Unavailable Unavailable Bolla, S Stehpon CARLSON Unavailable Unavailable Bolla, S Stephon CARLSON Unavailable Unavailable Bolla, S Stephon MD Unavailable Unavailable Bolla, S Stephon CARLSON Unavailable Unavailable Bolla, S Stephon CARLSON Unavailable Unavailable Bolla, Denise Szymanski MD Unavailable Unavailable Bolla, S Stephon CARLSON Unavailable Unavailable Bolla, Denise Szymanski MD Unavailable Unavailable Bolla, S Stephon CARLSON Unavailable Unavailable Bolla, S Stephon CARLSON Unavailable Unavailable Bolla, S Stephon CARLSON Unavailable Unavailable Bolla, S Stephon CARLSON Unavailable Unavailable Bolla, S Stephon CARLSON Unavailable Unavailable Bolla, S Stephon MD Unavailable Unavailable Bolla, S Stephon MD Unavailable Unavailable LETTIERE, A GODWIN PA Unavailable Unavailable LETTIERE, A GODWIN PA Unavailable Unavailable LETTIERE, A GODWIN PA Unavailable Unavailable LETTIERE, A GODWIN PA Unavailable Unavailable LETTIERE, A GODWIN PA Unavailable Unavailable LETTIERE, A GODWIN PA Unavailable Unavailable LETTIERE, A GODWIN PA Unavailable Unavailable LETTIERE, A GODWIN PA Unavailable Unavailable LETTIERE, A GODWIN PA Unavailable Unavailable LETTIERE, A GODWIN PA Unavailable Unavailable LETTIERE, A GODWIN PA Unavailable Unavailable LETTIERE, A GODWIN PA Unavailable Unavailable LETTIERE, A GODWIN PA Unavailable Unavailable LETTIERE, A GODWIN PA Unavailable Unavailable LETTIERE, A GODWIN PA Unavailable Unavailable LETTIERE, A GODWIN PA Unavailable Unavailable LETTIERE, A GODWIN PA Unavailable Unavailable LETTIERE, A GODWIN PA Unavailable Unavailable LETTIERE, A GODWIN PA Unavailable Unavailable LETTIERE, A GODWIN PA Unavailable Unavailable LETTIERE, A GODWIN PA Unavailable Unavailable LETTIERE, A GODWIN PA Unavailable Unavailable LETTIERE, A GODWIN PA Unavailable Unavailable LETTIERE, A GODWIN PA Unavailable Unavailable LETTIERE, A GODWIN PA Unavailable Unavailable LETTIERE, A GODWIN PA Unavailable Unavailable LETTIERE, A GODWIN PA Unavailable Unavailable LETTIERE, A GODWIN PA Unavailable Unavailable LETTIERE, A GODWIN PA Unavailable Unavailable Re-disclosure Warning The records that you are about to access may contain information from federally-assisted alcohol or drug abuse programs. If such information is present, then the following federally mandated warning applies: This information has been disclosed to you from records protected by federal confidentiality rules (42 CFR part 2). The federal rules prohibit you from making any further disclosure of this information unless further disclosure is expressly permitted by the written consent of the person to whom it pertains or as otherwise permitted by 42 CFR part 2. A general authorization for the release of medical or other information is NOT sufficient for this purpose. The Federal rules restrict any use of the information to criminally investigate or prosecute any alcohol or drug abuse patient.The records that you are about to access may contain highly sensitive health information, the redisclosure of which is protected by Article 27-F of the [facility] Public Health law. If you continue you may have access to information: Regarding HIV / AIDS; Provided by facilities licensed or operated by the [facility] Office of Mental Health; or Provided by the [facility] Office for People With Developmental Disabilities. If such information is present, then the following [facility] mandated warning applies: This information has been disclosed to you from confidential records which are protected by state law. State law prohibits you from making any further disclosure of this information without the specific written consent of the person to whom it pertains, or as otherwise permitted by law. Any unauthorized further disclosure in violation of state law may result in a fine or residential sentence or both. A general authorization for the release of medical or other information is NOT sufficient authorization for further disc losure. Family History Family Member Name Family Member Gender Family Member Status Date o f Status Description Data Source(s) Unknown Female Problem MEDENT ([facility]) Unknown Female Problem MEDENT ([facility]) Unknown Female Problem MEDENT ([facility]) Encounters Encounter Providers Location Date Indications Data Source(s ) Nyla Boland RESIDENTIAL LAWN SPECIALIST: [id number], [address], [place] [address], Ph. Attender: Nyla CASTRO [place] - [facility] 09/26/2020 12:00:00 AM EST ATHE NA ([facility]) Stephon Cullen MD: [address], [place] [address], Ph. Attender: Stephon Cullen MD [place] - [facility] 09/11/2020 12:00:00 AM EST ROLANDO ([facility]) Office Visit Attender: LESA NUNN NP Physical Therapy 2020 08:00:00 AM EST MEDENT ([facility]) Stephon Cullen MD: [id number], [facility] [place] [address], Ph. [phone] Attender: Stephon Cullen MD [place] - [facility] 09/08/2020 12:00:00 AM EST ROLANDO ([facility]) Stehpon Cullen MD: [address], [place] [address], Ph. [phone] Attender: Stephon VILLARREAL - [facility] 09/08/2020 12:00:00 AM EST ROLANDO ([facility]) Stephon Cullen MD: [address], [place] [address], Ph. Attender: Stephon VILLARREAL - [facility] 08/18/2020 12:00:00 AM EST ROLANDO ([facility]) Stephon Cullen MD: [address], [place] [address], Ph. Attender: Stephon VILLARREAL - [facility] 08/18/2020 12:00:00 AM EST ROLANDO ([facility]) Stephon Cullen MD: [address], [place] [address], Ph. Attender: Stephon Cullen MD [place] - [facility] 08/18/2020 12:00:00 AM EST ROLANDO ([facility]) Stephon Cullen MD: [address], [place] [address], Ph. [phone] Attender: Stephon Cullen MD [place] - [facility] 08/13/2020 12:00:00 AM EST ROLANDO ([facility]) Stephon Cullen MD: [address], [place] [address], Ph. [phone] Attender: Stephon Cullen MD [place] - [facility] 08/13/2020 12:00:00 AM EST ROLANDO ([facility]) Stephon Cullen MD: [address], [place] [address], Ph. [phone] Attender: Stephon Cullen MD [place] - [facility] 08/13/2020 12:00:00 AM EST ROLANDO ([facility]) Stephon Cullen MD: [address], [facility] [place] [address], Ph. [phone] Attender: Stephon Cullen MD [place] - [facility] 08/13/2020 12:00:00 AM EST ROLANDO ([facility]) Nyla Boland, RESIDENTIAL LAWN SPECIALIST: [address], [place] [address], Ph. Attender: Nyla CASTRO [place] - [facility] 08/06/2020 12:00:00 AM EST ATHE NA ([facility]) Nyla Boland, RESIDENTIAL LAWN SPECIALIST: [address], [place] [address], Ph. Attender: Nyla Boland [facility] - [facility] 08/06/2020 12:00:00 AM EST ATHE NA ([facility]) Nyla Boland, RESIDENTIAL LAWN SPECIALIST: [address], [address] [place], [place] [address], Ph. Attender: Nyla Boland [facility] - [facility] 08/06/2020 12:00:00 AM EST ATHE NA ([facility]) Nyla Boland, RESIDENTIAL LAWN SPECIALIST: [address], [place] [address], Ph. Attender: Nyla Boland [facility] 08/06/2020 12:00:00 AM EST ATHE NA ([facility]) Nyla Boland, RESIDENTIAL LAWN SPECIALIST: [address], [place] [address], Ph. Attender: Nyla Boland [facility] 08/06/2020 12:00:00 AM EST ATHE NA ([facility]) Outpatient Attender: Carmen Wisdom [facility] 07/22/2020 08:00:00 AM EST MEDENT ([facility] raymundo, ) Nyla Boland, RESIDENTIAL LAWN SPECIALIST: [address], [place] [address], Ph. Attender: Nyla Boland [facility] 07/03/2020 12:00:00 AM EDT ATHE NA ([facility]) Nyla Boland, RESIDENTIAL LAWN SPECIALIST: [address], [place] [address], Ph. Attender: Nyla Boland [facility] - [facility] 07/03/2020 12:00:00 AM EDT ATHE NA ([facility]) Nyla Boland, RESIDENTIAL LAWN SPECIALIST: [address], [place] [address], Ph. Attender: Nyla Boland [facility] - [facility] 07/03/2020 12:00:00 AM EDT ATHE NA ([facility]) Nyla Boland, RESIDENTIAL LAWN SPECIALIST: [address], [place] [address], Ph. Attender: Nyla Boland [facility] 07/03/2020 12:00:00 AM EDT ATHE NA ([facility]) Nyla Boland, RESIDENTIAL LAWN SPECIALIST: [address], [place] [address], Ph. Attender: Nyla Boland [facility] - [facility] 07/03/2020 12:00:00 AM EDT ATHE NA ([facility]) Nyla Boland, RESIDENTIAL LAWN SPECIALIST: [address], [place] [address], Ph. Attender: Nyla Boland [facility] - [facility] 07/03/2020 12:00:00 AM EDT ATHE NA ([facility]) Stephon Cullen MD: [address], [place] [address], Ph. Attender: Stephon Cullen MD [place] - [facility] 06/20/2020 12:00:00 AM EDT ROLANDO ([facility]) Stephon Cullen MD: [address], [address], [place] [address], Ph. Attender: Stephon Cullen MD [place] - [facility] 06/20/2020 12:00:00 AM EDT ROLANDO ([facility]) Stephon Cullen MD: [address], [address], [place] [address], Ph. Attender: Stephon Cullen MD [place] - [facility] 06/20/2020 12:00:00 AM EDT ROLANDO ([facility]) Stephon Cullen MD: [address], [address], [place] [address], Ph. Attender: Stephon VILLARREAL - [facility] 06/20/2020 12:00:00 AM EDT ROLANDO ([facility]) Stephon Cullen MD: [address], [address], [place] [address], Ph. Attender: Stephon Cullen MD [place] - [facility] 06/20/2020 12:00:00 AM EDT ROLANDO ([facility]) Stephon Cullen MD: [address], [address], [place] [address], Ph. Attender: Stephon VILLARREAL - [facility] 06/20/2020 12:00:00 AM EDT ROLANDO ([facility]) Stephon Cullen MD: [address], [address], [place] [address], Ph. Attender: Stephon VILLARERAL - [facility] 06/20/2020 12:00:00 AM EDT ROLANDO ([facility]) Stephon Cullen MD: [address], [address], [place] [address], Ph. [phone] Attender: Stephon Cullen MD [place] - [facility] - [facility] 06/16/2020 12:00:00 AM EDT ROLANDO ([facility]) Stephon Cullen MD: [address], [address], [place] [address], Ph. [phone] Attender: Stephon Cullen MD [place] - [facility] - [facility] 06/16/2020 12:00:00 AM EDT ROLANDO ([facility]) Stephon Cullen MD: [address], [address], [place] [address], Ph. [phone] Attender: Stephon Cullen MD [place] - [facility] 06/16/2020 12:00:00 AM EDT ROLANDO ([facility]) Stephon Cullen MD: [address], [address], [place] [address], Ph. [phone] Attender: Stephon Cullen MD [place] - [facility] - [facility] 06/16/2020 12:00:00 AM EDT ROLANDO ([facility]) Stephon Cullen MD: [address], [address], [place] [address], Ph. [phone] Attender: Stephon Cullen MD [place] - [facility] - [facility] 06/16/2020 12:00:00 AM EDT ROLANDO ([facility]) Stephon Cullen MD: [address], [address], [place] [address], Ph. [phone] Attender: Stephon Cullen MD [place] - [facility] 06/16/2020 12:00:00 AM EDT ROLANDO ([facility]) Stephon Cullen MD: [address], [address], [place] [address], Ph. [phone] Attender: Stepohn Cullen MD [place] - [facility] - [facility] 06/16/2020 12:00:00 AM EDT ROLANDO ([facility]) Stephon Cullen MD: [address], [address], [place] [address], Ph. [phone] Attender: Stephon Cullen MD [place] - [facility] - [facility] 06/16/2020 12:00:00 AM EDT ROLANDO ([facility]) Outpatient Attender: Deborah Harmon gisele 06/09/2020 04:35:00 PM EDT MEDENT ([facility]) Stephon Cullen MD: [address], [address], [place] [address], Ph. Attender: Stephon VILLARREAL - [facility] Office 06/06/2020 12:00:00 AM EDT ROLANDO ([facility]) Stephon Cullen MD: [address], [address], [place] [address], Ph. Attender: Stephon VILLARREAL - [facility] 06/06/2020 12:00:00 AM EDT ROLANDO ([facility]) Stephon Cullen MD: [address], [address], [place] [address], Ph. Attender: Stephon VILLARREAL - [facility] 06/06/2020 12:00:00 AM EDT ROLANDO ([facility]) Stephon Cullen MD: [address], [address], [place] [address], Ph. Attender: Stephon VILLARREAL - [facility] - [facility] 06/06/2020 12:00:00 AM EDT ROLANDO ([facility]) Stephon Cullen MD: [address]52 [address], [address], [place] [address], Ph. Attender: Stephon Cullen MD [place] - [facility] 06/06/2020 12:00:00 AM EDT ROLANDO ([facility]) Stephon Cullen MD: [address], [address], [place] [address], Ph. Attender: Stephon Cullen MD [place] - [facility] 06/06/2020 12:00:00 AM EDT ROLANDO ([facility]) Stephon Cullen MD: [address]69 [address], [address], [place] [address], Ph. Attender: Stephon Cullen MD [place] - [facility] 06/06/2020 12:00:00 AM EDT ROLANDO ([facility]) Stephon Cullen MD: [address], [address], [place] [address], Ph. Attender: Stephon Cullen MD [place] - [facility] 06/06/2020 12:00:00 AM EDT ROLANDO ([facility]) Stephon Cullen MD: [address]43 [address], [address], [place] [address], Ph. Attender: Stephon Cullen MD [place] - [facility] 06/06/2020 12:00:00 AM EDT ROLANDO ([facility]) Stephon Cullen MD: [address], [address], [place] [address], Ph. [phone] Attender: Stephon Cullen MD [place] - [facility] 06/02/2020 12:00:00 AM EDT ROLANDO ([facility]) Stephon Cullen MD: [address]32 [address], [address], [place] [address], Ph. [phone] Attender: Stephon Cullen MD [place] - [facility] - [facility] 06/02/2020 12:00:00 AM EDT ROLANDO ([facility]) Stephon Cullen MD: [address]42 [address], [address], [place] [address], Ph. [phone] Attender: Stephon Cullen MD [place] - [facility] - [facility] 06/02/2020 12:00:00 AM EDT ROLANDO ([facility]) Stephon Cullen MD: [address]84 [address], [address], [place] [address], Ph. [phone] Attender: Stephon Cullen MD [place] - [facility] 06/02/2020 12:00:00 AM EDT ROLANDO ([facility]) Stephon Cullen MD: [address]46 [address], [address], [place] [address], Ph. [phone] Attender: Stephon Cullen MD [place] - [facility] 06/02/2020 12:00:00 AM EDT ROLANDO ([facility]) Stephon Cullen MD: [address]179 [address], [address], [place] [address], Ph. [phone] Attender: Stephon Cullen MD [place] - [facility] 06/02/2020 12:00:00 AM EDT ROLANDO ([facility]) Stephon Cullen MD: [address], [address], [place] [address], Ph. [phone] Attender: Stephon Cullen MD [place] - [facility] 06/02/2020 12:00:00 AM EDT ROLANDO ([facility]) Stephon Cullen MD: [address]69 [address], [address], [place] [address], Ph. [phone] Attender: Stephon Cullen MD [place] - [facility] 06/02/2020 12:00:00 AM EDT ROLANDO ([facility]) Stephon Cullen MD: [address], [place] [address], Ph. [phone] Attender: Stephon Cullen MD [place] - [facility] 06/02/2020 12:00:00 AM EDT ROLANDO ([facility]) Stephon Cullen MD: [address]363 [address], [place] [address], Ph. [phone] Attender: Stephon Cullen MD [place] - [facility] 06/02/2020 12:00:00 AM EDT ROLANDO ([facility]) Nyla Boland, RESIDENTIAL LAWN SPECIALIST: [address], [place] [address], Ph. Attender: Nyla Boland [facility] - [facility] 05/23/2020 12:00:00 AM EDT ATHE NA ([facility]) Nyla Boland, RESIDENTIAL LAWN SPECIALIST: [address], [place] [address], Ph. Attender: Nyla Boland [facility] - [facility] 05/23/2020 12:00:00 AM EDT ATHE NA ([facility]) Nyla Boland, RESIDENTIAL LAWN SPECIALIST: [address], [place] [address], Ph. Attender: Nyla Boland [facility] - [facility] 05/23/2020 12:00:00 AM EDT ATHE NA ([facility]) Nyla Boland, RESIDENTIAL LAWN SPECIALIST: [address], [address], [place] [address], Ph. Attender: Nyla Boland [facility] - [facility] 05/23/2020 12:00:00 AM EDT ATHE NA ([facility]) Nyla Boland, RESIDENTIAL LAWN SPECIALIST: [address], [address], [place] [address], Ph. Attender: Nyla Boland [facility] - [facility] 05/23/2020 12:00:00 AM EDT ATHE NA ([facility]) Nyla Boland, RESIDENTIAL LAWN SPECIALIST: [address], [address], [place] [address], Ph. Attender: Nyla Boland [facility] - [facility] 05/23/2020 12:00:00 AM EDT ATHE NA ([facility]) Nyla Boland, RESIDENTIAL LAWN SPECIALIST: [address], [address], [place] [address], Ph. Attender: Nyla Boland [facility] - [facility] 05/23/2020 12:00:00 AM EDT ATHE NA ([facility]) Nyla Boland, RESIDENTIAL LAWN SPECIALIST: [address], [address], [place] [address], Ph. Attender: Nyla Boland [facility] - [facility] 05/23/2020 12:00:00 AM EDT ATHE NA ([facility]) Nyla Boland, RESIDENTIAL LAWN SPECIALIST: [address], [address], [place] [address], Ph. Attender: Nyla Boland [facility] - [facility] 05/23/2020 12:00:00 AM EDT ATHE NA ([facility]) Nyla Boland, RESIDENTIAL LAWN SPECIALIST: [address], [address], [place] [address], Ph. Attender: Nyla Boland [facility] - [facility] - Main Office 05/23/2020 12:00:00 AM EDT ATHE NA ([facility]) Nyla Boland, RESIDENTIAL LAWN SPECIALIST: [address], [address], [place] [address], Ph. Attender: Nyla Boland [facility] - [facility] - [facility] Office 05/23/2020 12:00:00 AM EDT ATHE NA ([facility]) Outpatient Attender: AIMEE farooq 05/22/2020 05:15:00 PM EDT MEDENT ([facility]) Office Visit Attender: Sarah Lee MD Physical Therapy 05/16 03:30:00 PM EDT MEDENT ([facility]) Outpatient Attender: Paloma Monreal MD [facility]PS[facility]ORT[facility]PSCAN[facility] 04/18 12:26:00 PM EDT - 04/18/2020 12:27:00 PM EDT [facility] Patient discharged. Outpatient Attender: GODWIN jaquez 04/09/2020 12:15:00 PM EDT MEDENT ([facility]) Outpatient Attender: GODWIN Harmon gisele 03/12/2020 12:00:00 PM EDT MEDENT ([facility]) Outpatient Attender: LESA NUNN NP Physical Therapy 02/04/2020 0 3:45:00 PM EDT MEDENT ([facility]) Outpatient Attender: LESA NUNN NP Physical Therapy 12/05/2019 1 1:15:00 AM EDT MEDENT ([facility]) Outpatient 12/05/2019 06:14:00 AM EDT [facility] Outpatient Attender: GODWIN Harmon gisele 10/05/2019 05:35:00 PM EST MEDENT ([facility]) Outpatient Attender: Carmen SOTELO Main office - [facility] 09/20/2019 01:30:00 PM EST MEDENT ([facility]) Outpatient Attender: Paloma Monreal MD [facility] 09/18 01:39:00 PM EST - 09/18/2019 01:40:00 PM EST [facility] Patient discharged. Outpatient Attender: Carmen SOTELO Main office - [facility] 08/20/2019 07:00:00 AM EST MEDENT ([facility]) Immunizations Vaccine Date Status Description Data Source(s) INFLUENZA VIRUS VACCINE QUADRIVAL 2540-3200(6 MOS AND UP)/PF 09/01/2019 12:00:00 AM EST completed [facility] PNEUMOCOCCAL 23-VALENT POLYSACCHARIDE VACCINE 09/01/2019 12: 00:00 AM EST completed [facility] Medications Medication Brand Name Start Date Product Form Dose Route Admi nistrative Instructions Pharmacy Instructions Status Indications Reaction Description Data Source(s) BD Pen Needle/Original/Ultra-Fine/29G X 12.7mm 09/10/2020 12:00:00 AM EST active [facility] ([facility]) Tresiba Flextouch Tresiba Flextouch 08/21/2020 12:00:00 AM EST active MEDENT ([facility]) Tresiba Flextouch Tresiba Flextouch 08/20/2020 12:00:00 AM EST completed [facility] ([facility]) 40 mg 08/19/2020 12:00:00 AM EST tablet 30 TAKE ONE TABLET BY MOUTH EVERY DAY TAKE ONE TABLET BY MOUTH EVERY DAY SOLD: 08/23/2020 [facility] 4 mg 06/09/2020 12:00:00 AM EDT tablet 14 TAKE ONE TABLET BY MOUTH EVERY 6 HOURS NEEDED FOR NAUSEA TAKE ONE TABLET BY MOUTH EVERY 6 HOURS A S NEEDED FOR NAUSEA SOLD: 06/10/2020 [facility] 10 mg 06/09/2020 12:00:00 AM EDT capsule 14 TAKE ONE CAPSULE BY MOUTH TWICE A DAY NEEDED FOR DIARRHEA TAKE ONE CAPSULE BY MOUTH TWICE A DAY NEEDED FOR DIARRHEA SOLD: 06/10/2020 [facility] Ondansetron 4 MG Oral Tablet Ondansetron HCL 06/09/2020 12:00:00 AM E DT ORAL active MEDENT ([facility]) Dicyclomine Hydrochloride 10 MG Oral Capsule Dicyclomine HCL 06/09/2020 12:00:00 AM EDT ORAL active MED[facility] ([facility]) Phenergan/Promethazine Hci Injection To 50 MG 05/22/2020 1 2:00:00 AM EDT completed MEDENT ([facility]) Medication administered onsite 10 mg 05/05/2020 12:00:00 AM EDT tablet 20 TAKE ONE TABLET BY MOUTH EVERY 6 HOURS NEEDED FOR NAUSEA TAKE ONE TABLET BY MOUTH EVERY 6 HOURS A S NEEDED FOR NAUSEA SOLD: 05/06/2020 [facility] 225 mg/1.5 mL 05/02/2020 12:00:00 AM EDT syringe 1 INJECT 1.5ML ONCE A MONTH UNDER THE SKIN INJECT 1.5ML ONCE A MONTH UNDER THE SKIN SOLD: 06/05/2020 [facility] 225 mg/1.5 mL 05/02/2020 12:00:00 AM EDT syringe 1 INJECT 1.5ML ONCE A MONTH UNDER THE SKIN INJECT 1.5ML ONCE A MONTH UNDER THE SKIN SOLD: 09/01/2020 [facility] 225 mg/1.5 mL 05/02/2020 12:00:00 AM EDT syringe 1 INJECT 1.5ML ONCE A MONTH UNDER THE SKIN INJECT 1.5ML ONCE A MONTH UNDER THE SKIN SOLD: 07/03/2020 [facility] 225 mg/1.5 mL 05/02/2020 12:00:00 AM EDT syringe 1 INJECT 1.5ML ONCE A MONTH UNDER THE SKIN INJECT 1.5ML ONCE A MONTH UNDER THE SKIN SOLD: 10/04/2020 [facility] 225 mg/1.5 mL 05/02/2020 12:00:00 AM EDT syringe 1 INJECT 1.5ML ONCE A MONTH UNDER THE SKIN INJECT 1.5ML ONCE A MONTH UNDER THE SKIN SOLD: 08/01/2020 [facility] 225 mg/1.5 mL 05/02/2020 12:00:00 AM EDT syringe 1 INJECT 1.5ML ONCE A MONTH UNDER THE SKIN INJECT 1.5ML ONCE A MONTH UNDER THE SKIN SOLD: 05/02/2020 [facility] 7.5-325 mg 04/24/2020 12:00:00 AM EDT tablet 8 TAKE ONE TABLET BY MOUTH FOUR TIMES A DAY FOR 2 DAYS MAX = 4TABS/DAY TAKE ONE TABLET BY MOUTH FOUR TIMES A DA Y FOR 2 DAYS MAX = 4TABS/DAY SOLD: 04/24/2020 [facility] 50 mg 04/18/2020 12:00:00 AM EDT tablet 10 TAKE ONE TABLET BY MOUTH AT ONSET OF HEADACHE, MAY REPEAT IN TWO HOURS IF NECESSARY TAKE ONE TABLET BY MOUTH AT ONSET OF HEADACHE, MAY REPEAT IN TWO HOURS IF NECESSARY SOLD: 08/17/2020 [facility] 50 mg 04/18/2020 12:00:00 AM EDT tablet 10 TAKE ONE TABLET BY MOUTH AT ONSET OF HEADACHE, MAY REPEAT IN TWO HOURS IF NECESSARY TAKE ONE TABLET BY MOUTH AT ONSET OF HEADACHE, MAY REPEAT IN TWO HOURS IF NECESSARY SOLD: 04/18/2020 [facility] 50 mg 04/18/2020 12:00:00 AM EDT tablet 10 TAKE ONE TABLET BY MOUTH AT ONSET OF HEADACHE, MAY REPEAT IN TWO HOURS IF NECESSARY TAKE ONE TABLET BY MOUTH AT ONSET OF HEADACHE, MAY REPEAT IN TWO HOURS IF NECESSARY SOLD: 09/24/2020 [facility] meloxicam 7.5 MG Oral Tablet MELOXICAM 04/16/2020 12:00:00 AM EDT tabl et 20 TAKE ONE TABLET BY MOUTH EVERY DAY TAKE ONE TABLET BY MOUTH EVERY DAY SOLD: 04/16/2020 [facility] 8 mg 04/09/2020 12:00:00 AM EDT tablet 30 TAKE ONE TABLET BY MOUTH EVERY 8 HOURS NEEDED FOR NAUSEA TAKE ONE TABLET BY MOUTH EVERY 8 HOURS A S NEEDED FOR NAUSEA SOLD: 04/09/2020 [facility] 25 mg 03/13/2020 12:00:00 AM EDT tablet 9 TAKE ONE TABLET BY MOUTH AT ONSET OF MIGRAINE. MAY TAKE A SECOND TABLET 2 HOURS LATER IF NEEDED TAKE ONE TABLET BY MOUTH AT ONSET OF MIGRAINE. MAY TAKE A SECOND TABLET 2 HOURS LATER IF NEEDED SOLD: 03/13/2020 [facility] 8 mg 03/12/2020 12:00:00 AM EDT tablet 30 TAKE ONE TABLET BY MOUTH EVERY 8 HOURS NEEDED FOR NAUSEA TAKE ONE TABLET BY MOUTH EVERY 8 HOURS A S NEEDED FOR NAUSEA SOLD: 03/12/2020 [facility] 75 mg 02/17/2020 12:00:00 AM EDT capsule 30 TAKE ONE CAPSULE BY MOUTH EVERY DAY TAKE ONE CAPSULE BY MOUTH EVERY DAY SOLD: 05/02/2020 [facility] 75 mg 02/17/2020 12:00:00 AM EDT capsule 30 TAKE ONE CAPSULE BY MOUTH EVERY DAY TAKE ONE CAPSULE BY MOUTH EVERY DAY SOLD: 02/17/2020 [facility] 75 mg 02/17/2020 12:00:00 AM EDT capsule 30 TAKE ONE CAPSULE BY MOUTH EVERY DAY TAKE ONE CAPSULE BY MOUTH EVERY DAY SOLD: 08/01/2020 [facility] 75 mg 02/17/2020 12:00:00 AM EDT capsule 30 TAKE ONE CAPSULE BY MOUTH EVERY DAY TAKE ONE CAPSULE BY MOUTH EVERY DAY SOLD: 09/01/2020 [facility] 75 mg 02/17/2020 12:00:00 AM EDT capsule 30 TAKE ONE CAPSULE BY MOUTH EVERY DAY TAKE ONE CAPSULE BY MOUTH EVERY DAY SOLD: 06/21/2020 [facility] 3 ML Insulin Glargine 100 UNT/ML Pen Injector [Lantus] [facility] 12/05/2019 12:00:00 AM EDT active [facility] ([facility]) 90 mcg/actuation 11/07/2019 12:00:00 AM EST HFA aerosol inha ler 8 INHALE ONE TO TWO PUFFS BY MOUTH EVERY 4 HOURS NEEDED FOR WHEEZING INHALE ONE TO TWO PUFFS BY MOUTH EVERY 4 HOURS NEEDED FOR WHEEZING SOLD: 11/07/2019 [facility] 100 mg 11/07/2019 12:00:00 AM EST tablet 14 TAKE ONE TABLET BY MOUTH TWICE A DAY FOR 7 DAYS TAKE ONE TABLET BY MOUTH TWICE A DAY FOR 7 DAYS SOLD: 11/07/2019 [facility] 75 mg 11/05/2019 12:00:00 AM EST capsule 10 TAKE ONE CAPSULE BY MOUTH TWICE A DAY FOR 5 DAYS TAKE ONE CAPSULE BY MOUTH TWICE A DAY FOR 5 DAYS SOLD: 11/05/2019 [facility] 225 mg/1.5 mL 11/02/2019 12:00:00 AM EST syringe 1 INJECT ONCE MONTHLY INJECT ONCE MONTHLY SOLD: 03/03/2020 [facility] 225 mg/1.5 mL 11/02/2019 12:00:00 AM EST syringe 1 INJECT ONCE MONTHLY INJECT ONCE MONTHLY SOLD: 01/30/2020 [facility] 225 mg/1.5 mL 11/02/2019 12:00:00 AM EST syringe 1 INJECT ONCE MONTHLY INJECT ONCE MONTHLY SOLD: 12/04/2019 [facility] 225 mg/1.5 mL 11/02/2019 12:00:00 AM EST syringe 1 INJECT ONCE MONTHLY INJECT ONCE MONTHLY SOLD: 11/04/2019 [facility] 225 mg/1.5 mL 11/02/2019 12:00:00 AM EST syringe 1 INJECT ONCE MONTHLY INJECT ONCE MONTHLY SOLD: 12/26/2019 [facility] 225 mg/1.5 mL 11/02/2019 12:00:00 AM EST syringe 1 INJECT ONCE MONTHLY INJECT ONCE MONTHLY SOLD: 04/04/2020 [facility] 225 mg/1.5 mL 10/10/2019 12:00:00 AM EST syringe 1 INJECT 1.5ML SUBCUTANEOUSLY MONTHLY INJECT 1.5ML SUBCUTANEOUSLY MONTHLY SOLD: 10/10/2019 [facility] Ondansetron 8 MG Oral Tablet Ondansetron HCL 10/05/2019 12:00:00 AM EST active [facility] ([facility]) Divalproex Sodium 500 MG Delayed Release Oral Tablet Divalpr oex Sodium 09/20/2019 12:00:00 AM EST ORAL active [facility] ([facility]) 250 mg 08/20/2019 12:00:00 AM EST tablet,delayed release (DR/EC) 30 TAKE ONE TABLET BY MOUTH AT BEDTIME TAKE ONE TABLET BY MOUTH AT BEDTIME SOLD: 08/20/2019 [facility] Divalproex Sodium 250 MG Delayed Release Oral Tablet [Depako te] Depakote 08/20/2019 12:00:00 AM EST ORAL completed [facility] ([facility]) 250 mg 08/20/2019 12:00:00 AM EST tablet,delayed release (DR/EC) 30 TAKE ONE TABLET BY MOUTH AT BEDTIME TAKE ONE TABLET BY MOUTH AT BEDTIME SOLD: 09/26/2019 [facility] 25 mg 07/04/2019 12:00:00 AM EDT tablet 90 TAKE ONE TABLET BY MOUTH THREE TIMES A DAY NEEDED MAXIMUM DAILY DOSE = 3 TAKE ONE TABLET BY MOUTH THREE TIMES A DAY NEEDED MAXIMUM DAILY DOSE = 3 SOLD: 08/15/2019 [facility] 75 mg 03/21/2019 12:00:00 AM EDT capsule 30 TAKE ONE CAPSULE BY MOUTH EVERY DAY TAKE ONE CAPSULE BY MOUTH EVERY DAY SOLD: 09/26/2019 [facility] 75 mg 03/21/2019 12:00:00 AM EDT capsule 30 TAKE ONE CAPSULE BY MOUTH EVERY DAY TAKE ONE CAPSULE BY MOUTH EVERY DAY SOLD: 08/18/2019 [facility] 75 mg 03/21/2019 12:00:00 AM EDT capsule 30 TAKE ONE CAPSULE BY MOUTH EVERY DAY TAKE ONE CAPSULE BY MOUTH EVERY DAY SOLD: 12/29/2019 [facility] carvedilol 3.125 MG Oral Tablet CARVEDILOL 01/22/2019 12:00:00 AM EDT tablet 180 TAKE ONE TABLET BY MOUTH TWICE A DAY TAKE ONE TA BLET BY MOUTH TWICE A DAY SOLD: 09/26/2019 [facility] Ondansetron 8 MG Oral Tablet ondansetron HCl 8 mg tabl et ondansetron HCl 8 mg tablet completed ondansetron 8 M G Oral Tablet [facility] ([facility]) 0.5 ML pneumococcal capsular polysacchar triston type 1 vaccine 0.05 MG/ML / pneumococcal capsular polysaccharide type 10A vaccine 0.05 MG/ML / pneumococcal capsular polysaccharide type 11A vaccine 0.05 MG/ML / pneumococcal capsular polysaccharide type 12F vac Pneumovax-23 25 mcg/0.5 mL injection syringe Pneumovax-23 25 mcg/0.5 mL injection syringe completed 0.5 ML Streptococcus pneumoniae type 1 capsular polysaccharide antigen 0.05 MG/ML / Streptococcus pneumoniae type 10A capsular polysaccharide antigen 0.05 MG/ML / Streptococcus pneumoniae type 11A capsular polysaccharide antigen 0.05 MG/ML / Streptococcus pneumoniae type 12F capsular polysaccharide antigen 0.05 MG/ML / Streptococcus pneumoniae type 14 capsular polysaccharide antigen 0.05 MG/ML / Streptococcus pneumoniae type 15B capsular polysaccharide antigen 0.05 MG/ML / Streptococcus pneumoniae type 17F capsular polysaccharide antigen 0.05 MG/ML / Streptococcus pneumoniae type 18C capsular polysaccharide antigen 0.05 MG/ML / Streptococcus pneumoniae type 19A capsular polysaccharide antigen 0.05 MG/ML / Streptococcus pneumoniae type 19F capsular polysaccharide antigen 0.05 MG/ML / Streptococcus pneumoniae type 2 capsular polysaccharide antigen 0.05 MG/ML / Streptococcus pneumoniae type 20 capsular polysaccharide antigen 0.05 MG/ML / Streptococcus pneumoniae type 22F capsular polysaccharide antigen 0.05 MG/ML / Streptococcus pneumoniae type 23F capsular polysaccharide antigen 0.05 MG/ML / Streptococcus pneumoniae type 3 capsular polysaccharide antigen 0.05 MG/ML / Streptococcus pneumoniae type 33F capsular polysaccharide antigen 0.05 MG/ML / Streptococcus pneumoniae type 4 capsular polysaccharide antigen 0.05 MG/ML / Streptococcus pneumoniae type 5 capsular polysaccharide antigen 0.05 MG/ML / Streptococcus pneumoniae type 6B capsular polysaccharide antigen 0.05 MG/ML / Streptococcus pneumoniae type 7F capsular polysaccharide antigen 0.05 MG/ML / Streptococcus pneumoniae type 8 capsular polysaccharide antigen 0.05 MG/ML / Streptococcus pneumoniae type 9N capsular polysaccharide antigen 0.05 MG/ML / Streptococcus pneumoniae type 9V capsular polysaccharide antigen 0.05 MG/ML Prefilled Syringe [Pneumovax 23] R[facility] ([facility]) 0.5 ML pneumococcal capsular polysacchar triston type 1 vaccine 0.05 MG/ML / pneumococcal capsular polysaccharide type 10A vaccine 0.05 MG/ML / pneumococcal capsular polysaccharide type 11A vaccine 0.05 MG/ML / pneumococcal capsular polysaccharide type 12F vac Pneumovax-23 25 mcg/0.5 mL injection syringe Pneumovax-23 25 mcg/0.5 mL injection syringe completed 0.5 ML Streptococcus pneumoniae type 1 capsular polysaccharide antigen 0.05 MG/ML / Streptococcus pneumoniae type 10A capsular polysaccharide antigen 0.05 MG/ML / Streptococcus pneumoniae type 11A capsular polysaccharide antigen 0.05 MG/ML / Streptococcus pneumoniae type 12F capsular polysaccharide antigen 0.05 MG/ML / Streptococcus pneumoniae type 14 capsular polysaccharide antigen 0.05 MG/ML / Streptococcus pneumoniae type 15B capsular polysaccharide antigen 0.05 MG/ML / Streptococcus pneumoniae type 17F capsular polysaccharide antigen 0.05 MG/ML / Streptococcus pneumoniae type 18C capsular polysaccharide antigen 0.05 MG/ML / Streptococcus pneumoniae type 19A capsular polysaccharide antigen 0.05 MG/ML / Streptococcus pneumoniae type 19F capsular polysaccharide antigen 0.05 MG/ML / Streptococcus pneumoniae type 2 capsular polysaccharide antigen 0.05 MG/ML / Streptococcus pneumoniae type 20 capsular polysaccharide antigen 0.05 MG/ML / Streptococcus pneumoniae type 22F capsular polysaccharide antigen 0.05 MG/ML / Streptococcus pneumoniae type 23F capsular polysaccharide antigen 0.05 MG/ML / Streptococcus pneumoniae type 3 capsular polysaccharide antigen 0.05 MG/ML / Streptococcus pneumoniae type 33F capsular polysaccharide antigen 0.05 MG/ML / Streptococcus pneumoniae type 4 capsular polysaccharide antigen 0.05 MG/ML / Streptococcus pneumoniae type 5 capsular polysaccharide antigen 0.05 MG/ML / Streptococcus pneumoniae type 6B capsular polysaccharide antigen 0.05 MG/ML / Streptococcus pneumoniae type 7F capsular polysaccharide antigen 0.05 MG/ML / Streptococcus pneumoniae type 8 capsular polysaccharide antigen 0.05 MG/ML / Streptococcus pneumoniae type 9N capsular polysaccharide antigen 0.05 MG/ML / Streptococcus pneumoniae type 9V capsular polysaccharide antigen 0.05 MG/ML Prefilled Syringe [Pneumovax 23] [facility] ([facility]) carvedilol 3.125 MG Oral Tablet carvedilol 3.125 mg ta blet carvedilol 3.125 mg tablet completed carvedilol 3.12 5 MG Oral Tablet [facility] ([facility]) doxycycline hyclate 100 MG Oral Tablet doxycycline hyc late 100 mg tablet doxycycline hyclate 100 mg tablet comp leted doxycycline hyclate 100 MG Oral Tablet [facility] ([facility]) Divalproex Sodium 250 MG Delayed Release Oral Tablet divalproex 250 mg tablet,delayed release divalproex 250 mg tablet,delayed release completed divalproex sodium 250 MG Delayed Release Oral Tablet [facility] ([facility]) Acetaminophen 325 MG / Hydrocodone Juanita trate 7.5 MG Oral Tablet hydrocodone 7.5 mg-acetaminophen 325 mg tablet hydrocodone 7.5 mg-acetaminophen 325 mg tablet completed acetaminophen 325 MG / hydrocodone bitartrate 7.5 MG Oral Tablet [facility] ([facility]) Sumatriptan 25 MG Oral Tablet sumatriptan 25 mg tablet sumat riptan 25 mg tablet completed sumatriptan 25 MG Oral Tablet [facility] ([facility]) Acetaminophen 325 MG / Hydrocodone Juanita trate 7.5 MG Oral Tablet hydrocodone 7.5 mg-acetaminophen 325 mg tablet hydrocodone 7.5 mg-acetaminophen 325 mg tablet completed acetaminophen 325 MG / hydrocodone bitartrate 7.5 MG Oral Tablet [facility] ([facility]) meloxicam 7.5 MG Oral Tablet meloxicam 7.5 mg tablet meloxicam 7 .5 mg tablet completed meloxicam 7.5 MG Oral Tablet [facility] ([facility]) Ondansetron 4 MG Oral Tablet ondansetron HCl 4 mg tabl et ondansetron HCl 4 mg tablet completed ondansetron 4 M G Oral Tablet [facility] ([facility]) Metformin hydrochloride 1000 MG Oral Tablet metformin 1,000 mg tablet metformin 1,000 mg tablet completed metformin hydrochloride 1000 MG Oral Tablet [facility] ([facility]) Naproxen 250 MG Oral Tablet naproxen 250 mg tablet as needed naproxen 250 mg tablet as needed completed napro xen 250 MG Oral Tablet [facility] ([facility]) Acetaminophen 325 MG / Hydrocodone Juanita trate 7.5 MG Oral Tablet hydrocodone 7.5 mg-acetaminophen 325 mg tablet hydrocodone 7.5 mg-acetaminophen 325 mg tablet completed acetaminophen 325 MG / hydrocodone bitartrate 7.5 MG Oral Tablet [facility] ([facility]) Sumatriptan 25 MG Oral Tablet sumatriptan 25 mg tablet sumat riptan 25 mg tablet completed sumatriptan 25 MG Oral Tablet [facility] ([facility]) Ondansetron 8 MG Disintegrating Oral Tab let ondansetron 8 mg disintegrating tablet ondansetron 8 mg disintegrating tablet completed ondansetron 8 MG Disintegrating Oral Tablet [facility] ([facility]) Simvastatin 20 MG Oral Tablet simvastatin 20 mg tablet one by mouth once daily simvastatin 20 mg tablet one by mouth once daily completed simvastatin 20 MG Oral Tablet [facility] ([facility]) Ondansetron 8 MG Oral Tablet ondansetron HCl 8 mg tabl et ondansetron HCl 8 mg tablet completed ondansetron 8 M G Oral Tablet [facility] ([facility]) meloxicam 7.5 MG Oral Tablet meloxicam 7.5 mg tablet meloxicam 7 .5 mg tablet completed meloxicam 7.5 MG Oral Tablet [facility] ([facility]) carvedilol 3.125 MG Oral Tablet carvedilol 3.125 mg ta blet carvedilol 3.125 mg tablet completed carvedilol 3.12 5 MG Oral Tablet [facility] ([facility]) Naproxen 250 MG Oral Tablet naproxen 250 mg tablet as needed naproxen 250 mg tablet as needed completed napro xen 250 MG Oral Tablet [facility] ([facility]) Ondansetron 4 MG Oral Tablet ondansetron HCl 4 mg tabl et ondansetron HCl 4 mg tablet completed ondansetron 4 M G Oral Tablet [facility] ([facility]) Amoxicillin 875 MG / Clavulanate 125 MG Oral Tablet amoxicillin 875 mg-potassium clavulanate 125 mg tablet amoxicillin 875 mg-potassium clavulanate 125 mg tablet completed amoxicillin 875 MG / clavulanate 125 MG Oral Tablet [facility] ([facility]) doxycycline hyclate 100 MG Oral Tablet doxycycline hyc late 100 mg tablet doxycycline hyclate 100 mg tablet comp leted doxycycline hyclate 100 MG Oral Tablet [facility] ([facility]) Divalproex Sodium 250 MG Delayed Release Oral Tablet divalproex 250 mg tablet,delayed release divalproex 250 mg tablet,delayed release completed divalproex sodium 250 MG Delayed Release Oral Tablet [facility] ([facility]) Divalproex Sodium 500 MG Delayed Release Oral Tablet divalproex 500 mg tablet,delayed release divalproex 500 mg tablet,delayed release completed divalproex sodium 500 MG Delayed Release Oral Tablet [facility] ([facility]) doxycycline hyclate 100 MG Oral Tablet doxycycline hyc late 100 mg tablet doxycycline hyclate 100 mg tablet comp leted doxycycline hyclate 100 MG Oral Tablet [facility] ([facility]) Acetaminophen 325 MG / Hydrocodone Juanita trate 5 MG Oral Tablet hydrocodone 5 mg- acetaminophen 325 mg tablet as needed hydrocodone 5 mg-acetaminophen 325 mg tablet as needed completed acetaminophen 325 MG / hydrocodone bitartrate 5 MG Oral Tablet [facility] ([facility]) Divalproex Sodium 250 MG Delayed Release Oral Tablet divalproex 250 mg tablet,delayed release divalproex 250 mg tablet,delayed release completed divalproex sodium 250 MG Delayed Release Oral Tablet [facility] ([facility]) Ondansetron 8 MG Disintegrating Oral Tab let ondansetron 8 mg disintegrating tablet ondansetron 8 mg disintegrating tablet completed ondansetron 8 MG Disintegrating Oral Tablet [facility] ([facility]) Ondansetron 8 MG Disintegrating Oral Tab let ondansetron 8 mg disintegrating tablet ondansetron 8 mg disintegrating tablet completed ondansetron 8 MG Disintegrating Oral Tablet [facility] ([facility]) Sumatriptan 25 MG Oral Tablet sumatriptan 25 mg tablet sumat riptan 25 mg tablet completed sumatriptan 25 MG Oral Tablet [facility] ([facility]) Ondansetron 8 MG Oral Tablet ondansetron HCl 8 mg tabl et ondansetron HCl 8 mg tablet completed ondansetron 8 M G Oral Tablet [facility] ([facility]) meloxicam 7.5 MG Oral Tablet meloxicam 7.5 mg tablet meloxicam 7 .5 mg tablet completed meloxicam 7.5 MG Oral Tablet [facility] ([facility]) topiramate 50 MG Oral Tablet topiramate 50 mg tablet a s needed topiramate 50 mg tablet as needed completed topir amate 50 MG Oral Tablet [facility] ([facility]) Sumatriptan 25 MG Oral Tablet sumatriptan 25 mg tablet sumat riptan 25 mg tablet completed sumatriptan 25 MG Oral Tablet [facility] ([facility]) Acetaminophen 325 MG / Hydrocodone Juanita trate 5 MG Oral Tablet hydrocodone 5 mg- acetaminophen 325 mg tablet as needed hydrocodone 5 mg-acetaminophen 325 mg tablet as needed completed acetaminophen 325 MG / hydrocodone bitartrate 5 MG Oral Tablet [facility] ([facility]) meloxicam 7.5 MG Oral Tablet meloxicam 7.5 mg tablet meloxicam 7 .5 mg tablet completed meloxicam 7.5 MG Oral Tablet [facility] ([facility]) Ondansetron 4 MG Oral Tablet ondansetron HCl 4 mg tabl et ondansetron HCl 4 mg tablet completed ondansetron 4 M G Oral Tablet [facility] ([facility]) Ondansetron 8 MG Oral Tablet ondansetron HCl 8 mg tabl et ondansetron HCl 8 mg tablet completed ondansetron 8 M G Oral Tablet [facility] ([facility]) Amoxicillin 875 MG / Clavulanate 125 MG Oral Tablet amoxicillin 875 mg-potassium clavulanate 125 mg tablet amoxicillin 875 mg-potassium clavulanate 125 mg tablet completed amoxicillin 875 MG / clavulanate 125 MG Oral Tablet [facility] ([facility]) Simvastatin 20 MG Oral Tablet simvastatin 20 mg tablet one by mouth once daily simvastatin 20 mg tablet one by mouth once daily completed simvastatin 20 MG Oral Tablet [facility] ([facility]) doxycycline hyclate 100 MG Oral Tablet doxycycline hyc late 100 mg tablet doxycycline hyclate 100 mg tablet comp leted doxycycline hyclate 100 MG Oral Tablet [facility] ([facility]) carvedilol 3.125 MG Oral Tablet carvedilol 3.125 mg ta blet carvedilol 3.125 mg tablet completed carvedilol 3.12 5 MG Oral Tablet [facility] ([facility]) Naproxen 250 MG Oral Tablet naproxen 250 mg tablet as needed naproxen 250 mg tablet as needed completed napro xen 250 MG Oral Tablet [facility] ([facility]) Metformin hydrochloride 1000 MG Oral Tablet metformin 1,000 mg tablet metformin 1,000 mg tablet completed metformin hydrochloride 1000 MG Oral Tablet [facility] ([facility]) Acetaminophen 325 MG / Hydrocodone Juanita trate 7.5 MG Oral Tablet hydrocodone 7.5 mg-acetaminophen 325 mg tablet hydrocodone 7.5 mg-acetaminophen 325 mg tablet completed acetaminophen 325 MG / hydrocodone bitartrate 7.5 MG Oral Tablet [facility] ([facility]) Acetaminophen 325 MG / Hydrocodone Juanita trate 5 MG Oral Tablet hydrocodone 5 mg- acetaminophen 325 mg tablet as needed hydrocodone 5 mg-acetaminophen 325 mg tablet as needed completed acetaminophen 325 MG / hydrocodone bitartrate 5 MG Oral Tablet [facility] ([facility]) Divalproex Sodium 250 MG Delayed Release Oral Tablet divalproex 250 mg tablet,delayed release divalproex 250 mg tablet,delayed release completed divalproex sodium 250 MG Delayed Release Oral Tablet [facility] ([facility]) Divalproex Sodium 500 MG Delayed Release Oral Tablet divalproex 500 mg tablet,delayed release divalproex 500 mg tablet,delayed release completed divalproex sodium 500 MG Delayed Release Oral Tablet [facility] ([facility]) Acetaminophen 325 MG / Hydrocodone Juanita trate 5 MG Oral Tablet hydrocodone 5 mg- acetaminophen 325 mg tablet as needed hydrocodone 5 mg-acetaminophen 325 mg tablet as needed completed acetaminophen 325 MG / hydrocodone bitartrate 5 MG Oral Tablet [facility] ([facility]) carvedilol 3.125 MG Oral Tablet carvedilol 3.125 mg ta blet carvedilol 3.125 mg tablet completed carvedilol 3.12 5 MG Oral Tablet [facility] ([facility]) Ondansetron 8 MG Disintegrating Oral Tab let ondansetron 8 mg disintegrating tablet ondansetron 8 mg disintegrating tablet completed ondansetron 8 MG Disintegrating Oral Tablet [facility] ([facility]) Divalproex Sodium 250 MG Delayed Release Oral Tablet divalproex 250 mg tablet,delayed release divalproex 250 mg tablet,delayed release completed divalproex sodium 250 MG Delayed Release Oral Tablet [facility] ([facility]) Naproxen 250 MG Oral Tablet naproxen 250 mg tablet as needed naproxen 250 mg tablet as needed completed napro xen 250 MG Oral Tablet [facility] ([facility]) Simvastatin 20 MG Oral Tablet simvastatin 20 mg tablet one by mouth once daily simvastatin 20 mg tablet one by mouth once daily completed simvastatin 20 MG Oral Tablet [facility] ([facility]) Ondansetron 4 MG Oral Tablet ondansetron HCl 4 mg tabl et ondansetron HCl 4 mg tablet completed ondansetron 4 M G Oral Tablet [facility] ([facility]) Amoxicillin 875 MG / Clavulanate 125 MG Oral Tablet amoxicillin 875 mg-potassium clavulanate 125 mg tablet amoxicillin 875 mg-potassium clavulanate 125 mg tablet completed amoxicillin 875 MG / clavulanate 125 MG Oral Tablet [facility] ([facility]) doxycycline hyclate 100 MG Oral Tablet doxycycline hyc late 100 mg tablet doxycycline hyclate 100 mg tablet comp leted doxycycline hyclate 100 MG Oral Tablet [facility] ([facility]) topiramate 50 MG Oral Tablet topiramate 50 mg tablet a s needed topiramate 50 mg tablet as needed completed topir amate 50 MG Oral Tablet [facility] ([facility]) Divalproex Sodium 500 MG Delayed Release Oral Tablet divalproex 500 mg tablet,delayed release divalproex 500 mg tablet,delayed release completed divalproex sodium 500 MG Delayed Release Oral Tablet [facility] ([facility]) Amoxicillin 875 MG / Clavulanate 125 MG Oral Tablet amoxicillin 875 mg-potassium clavulanate 125 mg tablet amoxicillin 875 mg-potassium clavulanate 125 mg tablet completed amoxicillin 875 MG / clavulanate 125 MG Oral Tablet [facility] ([facility]) Ondansetron 8 MG Oral Tablet ondansetron HCl 8 mg tabl et ondansetron HCl 8 mg tablet completed ondansetron 8 M G Oral Tablet [facility] ([facility]) topiramate 50 MG Oral Tablet topiramate 50 mg tablet a s needed topiramate 50 mg tablet as needed completed topir amate 50 MG Oral Tablet [facility] ([facility]) Sumatriptan 25 MG Oral Tablet sumatriptan 25 mg tablet sumat riptan 25 mg tablet completed sumatriptan 25 MG Oral Tablet [facility] ([facility]) Naproxen 250 MG Oral Tablet naproxen 250 mg tablet as needed naproxen 250 mg tablet as needed completed napro xen 250 MG Oral Tablet [facility] ([facility]) Acetaminophen 325 MG / Hydrocodone Juanita trate 5 MG Oral Tablet hydrocodone 5 mg- acetaminophen 325 mg tablet as needed hydrocodone 5 mg-acetaminophen 325 mg tablet as needed completed acetaminophen 325 MG / hydrocodone bitartrate 5 MG Oral Tablet [facility] ([facility]) 0.5 ML pneumococcal capsular polysacchar triston type 1 vaccine 0.05 MG/ML / pneumococcal capsular polysaccharide type 10A vaccine 0.05 MG/ML / pneumococcal capsular polysaccharide type 11A vaccine 0.05 MG/ML / pneumococcal capsular polysaccharide type 12F vac Pneumovax-23 25 mcg/0.5 mL injection syringe Pneumovax-23 25 mcg/0.5 mL injection syringe completed 0.5 ML Streptococcus pneumoniae type 1 capsular polysaccharide antigen 0.05 MG/ML / Streptococcus pneumoniae type 10A capsular polysaccharide antigen 0.05 MG/ML / Streptococcus pneumoniae type 11A capsular polysaccharide antigen 0.05 MG/ML / Streptococcus pneumoniae type 12F capsular polysaccharide antigen 0.05 MG/ML / Streptococcus pneumoniae type 14 capsular polysaccharide antigen 0.05 MG/ML / Streptococcus pneumoniae type 15B capsular polysaccharide antigen 0.05 MG/ML / Streptococcus pneumoniae type 17F capsular polysaccharide antigen 0.05 MG/ML / Streptococcus pneumoniae type 18C capsular polysaccharide antigen 0.05 MG/ML / Streptococcus pneumoniae type 19A capsular polysaccharide antigen 0.05 MG/ML / Streptococcus pneumoniae type 19F capsular polysaccharide antigen 0.05 MG/ML / Streptococcus pneumoniae type 2 capsular polysaccharide antigen 0.05 MG/ML / Streptococcus pneumoniae type 20 capsular polysaccharide antigen 0.05 MG/ML / Streptococcus pneumoniae type 22F capsular polysaccharide antigen 0.05 MG/ML / Streptococcus pneumoniae type 23F capsular polysaccharide antigen 0.05 MG/ML / Streptococcus pneumoniae type 3 capsular polysaccharide antigen 0.05 MG/ML / Streptococcus pneumoniae type 33F capsular polysaccharide antigen 0.05 MG/ML / Streptococcus pneumoniae type 4 capsular polysaccharide antigen 0.05 MG/ML / Streptococcus pneumoniae type 5 capsular polysaccharide antigen 0.05 MG/ML / Streptococcus pneumoniae type 6B capsular polysaccharide antigen 0.05 MG/ML / Streptococcus pneumoniae type 7F capsular polysaccharide antigen 0.05 MG/ML / Streptococcus pneumoniae type 8 capsular polysaccharide antigen 0.05 MG/ML / Streptococcus pneumoniae type 9N capsular polysaccharide antigen 0.05 MG/ML / Streptococcus pneumoniae type 9V capsular polysaccharide antigen 0.05 MG/ML Prefilled Syringe [Pneumovax 23] [facility] ([facility]) Simvastatin 20 MG Oral Tablet simvastatin 20 mg tablet one by mouth once daily simvastatin 20 mg tablet one by mouth once daily completed simvastatin 20 MG Oral Tablet [facility] ([facility]) Ondansetron 8 MG Disintegrating Oral Tab let ondansetron 8 mg disintegrating tablet ondansetron 8 mg disintegrating tablet completed ondansetron 8 MG Disintegrating Oral Tablet [facility] ([facility]) Amoxicillin 875 MG / Clavulanate 125 MG Oral Tablet amoxicillin 875 mg-potassium clavulanate 125 mg tablet amoxicillin 875 mg-potassium clavulanate 125 mg tablet completed amoxicillin 875 MG / clavulanate 125 MG Oral Tablet [facility] ([facility]) Divalproex Sodium 500 MG Delayed Release Oral Tablet divalproex 500 mg tablet,delayed release divalproex 500 mg tablet,delayed release completed divalproex sodium 500 MG Delayed Release Oral Tablet [facility] ([facility]) Acetaminophen 325 MG / Hydrocodone Juanita trate 7.5 MG Oral Tablet hydrocodone 7.5 mg-acetaminophen 325 mg tablet hydrocodone 7.5 mg-acetaminophen 325 mg tablet completed acetaminophen 325 MG / hydrocodone bitartrate 7.5 MG Oral Tablet [facility] ([facility]) Divalproex Sodium 500 MG Delayed Release Oral Tablet divalproex 500 mg tablet,delayed release divalproex 500 mg tablet,delayed release completed divalproex sodium 500 MG Delayed Release Oral Tablet [facility] ([facility]) Metformin hydrochloride 1000 MG Oral Tablet metformin 1,000 mg tablet metformin 1,000 mg tablet completed metformin hydrochloride 1000 MG Oral Tablet [facility] ([facility]) Naproxen 250 MG Oral Tablet naproxen 250 mg tablet as needed naproxen 250 mg tablet as needed completed napro xen 250 MG Oral Tablet [facility] ([facility]) Acetaminophen 325 MG / Hydrocodone Juanita trate 5 MG Oral Tablet hydrocodone 5 mg- acetaminophen 325 mg tablet as needed hydrocodone 5 mg-acetaminophen 325 mg tablet as needed completed acetaminophen 325 MG / hydrocodone bitartrate 5 MG Oral Tablet [facility] ([facility]) meloxicam 7.5 MG Oral Tablet meloxicam 7.5 mg tablet meloxicam 7 .5 mg tablet completed meloxicam 7.5 MG Oral Tablet [facility] ([facility]) 0.5 ML pneumococcal capsular polysacchar triston type 1 vaccine 0.05 MG/ML / pneumococcal capsular polysaccharide type 10A vaccine 0.05 MG/ML / pneumococcal capsular polysaccharide type 11A vaccine 0.05 MG/ML / pneumococcal capsular polysaccharide type 12F vac Pneumovax-23 25 mcg/0.5 mL injection syringe Pneumovax-23 25 mcg/0.5 mL injection syringe completed 0.5 ML Streptococcus pneumoniae type 1 capsular polysaccharide antigen 0.05 MG/ML / Streptococcus pneumoniae type 10A capsular polysaccharide antigen 0.05 MG/ML / Streptococcus pneumoniae type 11A capsular polysaccharide antigen 0.05 MG/ML / Streptococcus pneumoniae type 12F capsular polysaccharide antigen 0.05 MG/ML / Streptococcus pneumoniae type 14 capsular polysaccharide antigen 0.05 MG/ML / Streptococcus pneumoniae type 15B capsular polysaccharide antigen 0.05 MG/ML / Streptococcus pneumoniae type 17F capsular polysaccharide antigen 0.05 MG/ML / Streptococcus pneumoniae type 18C capsular polysaccharide antigen 0.05 MG/ML / Streptococcus pneumoniae type 19A capsular polysaccharide antigen 0.05 MG/ML / Streptococcus pneumoniae type 19F capsular polysaccharide antigen 0.05 MG/ML / Streptococcus pneumoniae type 2 capsular polysaccharide antigen 0.05 MG/ML / Streptococcus pneumoniae type 20 capsular polysaccharide antigen 0.05 MG/ML / Streptococcus pneumoniae type 22F capsular polysaccharide antigen 0.05 MG/ML / Streptococcus pneumoniae type 23F capsular polysaccharide antigen 0.05 MG/ML / Streptococcus pneumoniae type 3 capsular polysaccharide antigen 0.05 MG/ML / Streptococcus pneumoniae type 33F capsular polysaccharide antigen 0.05 MG/ML / Streptococcus pneumoniae type 4 capsular polysaccharide antigen 0.05 MG/ML / Streptococcus pneumoniae type 5 capsular polysaccharide antigen 0.05 MG/ML / Streptococcus pneumoniae type 6B capsular polysaccharide antigen 0.05 MG/ML / Streptococcus pneumoniae type 7F capsular polysaccharide antigen 0.05 MG/ML / Streptococcus pneumoniae type 8 capsular polysaccharide antigen 0.05 MG/ML / Streptococcus pneumoniae type 9N capsular polysaccharide antigen 0.05 MG/ML / Streptococcus pneumoniae type 9V capsular polysaccharide antigen 0.05 MG/ML Prefilled Syringe [Pneumovax 23] [facility] ([facility]) carvedilol 3.125 MG Oral Tablet carvedilol 3.125 mg ta blet carvedilol 3.125 mg tablet completed carvedilol 3.12 5 MG Oral Tablet [facility] ([facility]) Sumatriptan 25 MG Oral Tablet sumatriptan 25 mg tablet sumat riptan 25 mg tablet completed sumatriptan 25 MG Oral Tablet [facility] ([facility]) 0.5 ML pneumococcal capsular polysacchar triston type 1 vaccine 0.05 MG/ML / pneumococcal capsular polysaccharide type 10A vaccine 0.05 MG/ML / pneumococcal capsular polysaccharide type 11A vaccine 0.05 MG/ML / pneumococcal capsular polysaccharide type 12F vac Pneumovax-23 25 mcg/0.5 mL injection syringe Pneumovax-23 25 mcg/0.5 mL injection syringe completed 0.5 ML Streptococcus pneumoniae type 1 capsular polysaccharide antigen 0.05 MG/ML / Streptococcus pneumoniae type 10A capsular polysaccharide antigen 0.05 MG/ML / Streptococcus pneumoniae type 11A capsular polysaccharide antigen 0.05 MG/ML / Streptococcus pneumoniae type 12F capsular polysaccharide antigen 0.05 MG/ML / Streptococcus pneumoniae type 14 capsular polysaccharide antigen 0.05 MG/ML / Streptococcus pneumoniae type 15B capsular polysaccharide antigen 0.05 MG/ML / Streptococcus pneumoniae type 17F capsular polysaccharide antigen 0.05 MG/ML / Streptococcus pneumoniae type 18C capsular polysaccharide antigen 0.05 MG/ML / Streptococcus pneumoniae type 19A capsular polysaccharide antigen 0.05 MG/ML / Streptococcus pneumoniae type 19F capsular polysaccharide antigen 0.05 MG/ML / Streptococcus pneumoniae type 2 capsular polysaccharide antigen 0.05 MG/ML / Streptococcus pneumoniae type 20 capsular polysaccharide antigen 0.05 MG/ML / Streptococcus pneumoniae type 22F capsular polysaccharide antigen 0.05 MG/ML / Streptococcus pneumoniae type 23F capsular polysaccharide antigen 0.05 MG/ML / Streptococcus pneumoniae type 3 capsular polysaccharide antigen 0.05 MG/ML / Streptococcus pneumoniae type 33F capsular polysaccharide antigen 0.05 MG/ML / Streptococcus pneumoniae type 4 capsular polysaccharide antigen 0.05 MG/ML / Streptococcus pneumoniae type 5 capsular polysaccharide antigen 0.05 MG/ML / Streptococcus pneumoniae type 6B capsular polysaccharide antigen 0.05 MG/ML / Streptococcus pneumoniae type 7F capsular polysaccharide antigen 0.05 MG/ML / Streptococcus pneumoniae type 8 capsular polysaccharide antigen 0.05 MG/ML / Streptococcus pneumoniae type 9N capsular polysaccharide antigen 0.05 MG/ML / Streptococcus pneumoniae type 9V capsular polysaccharide antigen 0.05 MG/ML Prefilled Syringe [Pneumovax 23] [facility] ([facility]) topiramate 50 MG Oral Tablet topiramate 50 mg tablet a s needed topiramate 50 mg tablet as needed completed topir amate 50 MG Oral Tablet [facility] ([facility]) Ondansetron 8 MG Oral Tablet ondansetron HCl 8 mg tabl et ondansetron HCl 8 mg tablet completed ondansetron 8 M G Oral Tablet [facility] ([facility]) topiramate 50 MG Oral Tablet topiramate 50 mg tablet a s needed topiramate 50 mg tablet as needed completed topir amate 50 MG Oral Tablet [facility] ([facility]) Simvastatin 20 MG Oral Tablet simvastatin 20 mg tablet one by mouth once daily simvastatin 20 mg tablet one by mouth once daily completed simvastatin 20 MG Oral Tablet [facility] ([facility]) Ondansetron 4 MG Oral Tablet ondansetron HCl 4 mg tabl et ondansetron HCl 4 mg tablet completed ondansetron 4 M G Oral Tablet [facility] ([facility]) Ondansetron 4 MG Oral Tablet ondansetron HCl 4 mg tabl et ondansetron HCl 4 mg tablet completed ondansetron 4 M G Oral Tablet [facility] ([facility]) topiramate 50 MG Oral Tablet topiramate 50 mg tablet a s needed topiramate 50 mg tablet as needed completed topir amate 50 MG Oral Tablet [facility] ([facility]) Acetaminophen 325 MG / Hydrocodone Juanita trate 7.5 MG Oral Tablet hydrocodone 7.5 mg-acetaminophen 325 mg tablet hydrocodone 7.5 mg-acetaminophen 325 mg tablet completed acetaminophen 325 MG / hydrocodone bitartrate 7.5 MG Oral Tablet [facility] ([facility]) Divalproex Sodium 250 MG Delayed Release Oral Tablet divalproex 250 mg tablet,delayed release divalproex 250 mg tablet,delayed release completed divalproex sodium 250 MG Delayed Release Oral Tablet [facility] ([facility]) Amoxicillin 875 MG / Clavulanate 125 MG Oral Tablet amoxicillin 875 mg-potassium clavulanate 125 mg tablet amoxicillin 875 mg-potassium clavulanate 125 mg tablet completed amoxicillin 875 MG / clavulanate 125 MG Oral Tablet [facility] ([facility]) doxycycline hyclate 100 MG Oral Tablet doxycycline hyc late 100 mg tablet doxycycline hyclate 100 mg tablet comp leted doxycycline hyclate 100 MG Oral Tablet [facility] ([facility]) Ondansetron 8 MG Disintegrating Oral Tab let ondansetron 8 mg disintegrating tablet ondansetron 8 mg disintegrating tablet completed ondansetron 8 MG Disintegrating Oral Tablet [facility] ([facility]) carvedilol 3.125 MG Oral Tablet carvedilol 3.125 mg ta blet carvedilol 3.125 mg tablet completed carvedilol 3.12 5 MG Oral Tablet [facility] ([facility]) meloxicam 7.5 MG Oral Tablet meloxicam 7.5 mg tablet meloxicam 7 .5 mg tablet completed meloxicam 7.5 MG Oral Tablet [facility] ([facility]) Insurance Providers Payer name Policy type / Coverage type Policy ID Covered libertarian ID Covered libertarian's relationship to lyles Policy Lyles Plan Information STATE INSURANCE FUND [id number] SP [id number] [facility] [id number] SP [id number] BS EMPIRE RICK DIV [id number] SP [id number] [facility] INSURANCE FUND [id number] S [id number] EMPIRE ([facility] O [id number] S [id number] [facility] O [id number] S [id number] EMPIRE PLAN CLAIMS 1 [id number] 1 [id number] [employer] Commercial [id number] Self [id number] [employer] Commercial [id number] Self [id number] [employer] Commercial [id number] Self [id number] BS EMPIRE RICK DIV [id number] SP [id number] [employer] Commercial [id number] Self [id number] [employer] Commercial [id number] Self [id number] [employer] Commercial [id number] Self [id number] [employer] [facility] Health Maintenance Organization (HMO) [id number] Self [id number] [employer] Plan F [id number] SELF [id number] [employer] [facility] Health Maintenance Organization (HMO) [id number] Self [id number] [employer] Commercial [id number] Self [id number] [facility] INSURANCE FUND [id number] SP [id number] [employer] Commercial [id number] Self [id number] [employer] [facility] Health Maintenance Organization (HMO) [id number] Self [id number] [employer] [id number] Self [id number] [employer] [id number] Self [id number] [employer] Commercial [id number] Self [id number] [employer] Commercial [id number] Self [id number] [employer] [facility] Health Maintenance Organization (HMO) [id number] Self [id number] [employer] [id number] Self [id number] [employer] [id number] Self [id number] [employer] [id number] Self [id number] [employer] Commercial [id number] Self [id number] [employer] Commercial [id number] Self [id number] [employer] [facility] Health Maintenance Organization (HMO) [id number] Self [id number] [employer] [id number] Self [id number] [employer] Commercial [id number] Self [id number] [employer] Commercial [id number] Self [id number] [employer] Commercial [id number] Self [id number] [facility] [id number] SP [id number] BCBS EMPIRE RICK DIV [id number] SP [id number] [employer] Commercial [id number] Self [id number] [employer] Commercial [id number] Self [id number] [employer] Commercial [id number] Self [id number] [employer] [facility] Health Maintenance Organization (HMO) [id number] Self [id number] [employer] Commercial [id number] Self [id number] [employer] Commercial [id number] Self [id number] [employer] O [id number] S [id number] STATE INSURANCE FUND O [id number] S [id number] STATE INSURANCE FUND [id number] SP [id number] [employer] [facility] Health Maintenance Organization (HMO) [id number] Self [id number] [employer] Commercial [id number] Self [id number] [employer] Commercial [id number] Self [id number] [employer] Commercial [id number] Self [id number] [employer] Commercial [id number] Self [id number] [employer] Commercial [id number] Self [id number] [employer] [facility] Health Maintenance Organization (HMO) [id number] Self [id number] [facility] [employer] Commercial [id number] Self [id number] [employer] Commercial [id number] Self [id number] [employer] Commercial [id number] Self [id number] [employer] [facility] Health Maintenance Organization (HMO) [id number] Self [id number] [employer] Commercial [id number] Self [id number] [employer] [facility] Health Maintenance Organization (HMO) Self [employer] Commercial Self [employer] Commercial Self [employer] ([place], [place]) Medicare Primary Self [employer] [place] Commercial Self [employer] [id number] SP [id number] [employer] [id number] SP [id number] BCBS EMPIRE RICK DIV [id number] SP [id number] [employer] [id number] SP [id number] BCBS EMPIRE RICK DIV [id number] SP [id number] BC BLUE CARD 1 [id number] SELF PAY 2 UNAVAILABLE 1 UNAVAILA BLE BCBS EMPIRE RICK DIV [id number] SP [id number] [facility] [id number] SP [id number] Surgeries/Procedures Procedure Description Date Indications Data Source(s) Therapeutic, Prophylactic Or Diagnostic Injection Subq/Im 05/22/2020 12:00:00 AM EDT [facility] ([facility]) MRI SPINAL CANAL CERVICAL W/O CONTRAST MATRL 0 12:00:00 AM EDT [facility] ([facility] ) MRI SPINAL CANAL CERVICAL W/O CONTRAST MATRL 0 12:00:00 AM EDT [facility] ([facility] ) MRI SPINAL CANAL LUMBAR W/O CONTRAST MATERIAL 04/25/20 20 12:00:00 AM EDT [facility] ([facility] ) MRI SPINAL CANAL LUMBAR W/O CONTRAST MATERIAL 04/25/20 20 12:00:00 AM EDT [facility] ([facility] ) Therapeutic, Prophylactic Or Diagnostic Injection Subq/Im 04/09/2020 12:00:00 AM EDT [facility] ([facility]) Diabetic Foot Exam 02/04/2020 12:00:00 AM EDT [facility] ([facility]) Therapeutic, Prophylactic Or Diagnostic Injection Subq/Im 10/05/2019 12:00:00 AM EST [facility] ([facility]) Results ID Date Data Source [id number] 09/10/2020 08:56:00 AM EST [facility] ([facility]) Name Value Range Interpretation Code Description Data Heena rce(s) Supporting Document(s) Glucose [Mass/volume] in Serum or Plasma 140 [facility] ([facility]) ID Date Data Source [id number] 09/08/2020 12:00:00 AM EST [facility] ([facility]) Name Value Range Interpretation Code Description Data Heena rce(s) Supporting Document(s) SARS-CoV-2 (COVID-19) RNA [Presence] in Respiratory specimen by ALEKSANDR with probe detection negative negative normal Sars-cov-2 [facility] ([facility]) ID Date Data Source [id number] 09/08/2020 12:00:00 AM EST [facility] ([facility]) Name Value Range Interpretation Code Description Data Heena rce(s) Supporting Document(s) ID Date Data Source [id number] 09/08/2020 12:00:00 AM EST [facility] Name Value Range Interpretation Code Description Data Heena rce(s) Supporting Document(s) SARS-CoV-2 NEGATIVE [facility] This lab was ordered by [facility] and reported by [facility]. ID Date Data Source [id number] 08/13/2020 12:00:00 AM EST [facility] ([facility]) Name Value Range Interpretation Code Description Data Heena rce(s) Supporting Document(s) SARS-CoV-2 (COVID-19) RNA [Presence] in Respiratory specimen by ALEKSANDR with probe detection negative negative normal Sars-cov-2 [facility] ID Date Data Source [id number] 08/13/2020 12:00:00 AM EST [facility] ([facility]) Name Value Range Interpretation Code Description Data Heena rce(s) Supporting Document(s) ID Date Data Source [id number] 08/13/2020 12:00:00 AM EST [facility] ([facility]) Name Value Range Interpretation Code Description Data Heena rce(s) Supporting Document(s) SARS-CoV-2 (COVID-19) RNA [Presence] in Respiratory specimen by ALEKSANDR with probe detection negative negative normal Sars-cov-2 [facility] ([facility]) ID Date Data Source [id number] 08/13/2020 12:00:00 AM EST [facility] ([facility]) Name Value Range Interpretation Code Description Data Heena rce(s) Supporting Document(s) ID Date Data Source [id number] 08/13/2020 12:00:00 AM EST [facility] ([facility]) Name Value Range Interpretation Code Description Data Heena rce(s) Supporting Document(s) SARS-CoV-2 (COVID-19) RNA [Presence] in Respiratory specimen by ALEKSANDR with probe detection negative negative normal Sars-cov-2 [facility] ([facility]) ID Date Data Source [id number] 08/13/2020 12:00:00 AM EST [facility] ([facility]) Name Value Range Interpretation Code Description Data Heena rce(s) Supporting Document(s) ID Date Data Source [id number] 08/13/2020 12:00:00 AM EST [facility] Name Value Range Interpretation Code Description Data Heena rce(s) Supporting Document(s) SARS-CoV-2 [facility] This lab was ordered by [facility] and reported by [facility]. ID Date Data Source [id number] 06/16/2020 12:00:00 AM EDT [facility] ([facility]) Name Value Range Interpretation Code Description Data Heena rce(s) Supporting Document(s) SARS-CoV-2 (COVID-19) RNA [Presence] in Respiratory specimen by ALEKSANDR with probe detection negative negative normal Sars-cov-2 [facility] ([facility]) ID Date Data Source [id number] 06/16/2020 12:00:00 AM EDT [facility] ([facility]) Name Value Range Interpretation Code Description Data Heena rce(s) Supporting Document(s) ID Date Data Source [id number] 06/16/2020 12:00:00 AM EDT [facility] ([facility]) Name Value Range Interpretation Code Description Data Heena rce(s) Supporting Document(s) SARS-CoV-2 (COVID-19) RNA [Presence] in Respiratory specimen by ALEKSANDR with probe detection negative negative normal Sars-cov-2 [facility] ([facility]) ID Date Data Source [id number] 06/16/2020 12:00:00 AM EDT [facility] ([facility]) Name Value Range Interpretation Code Description Data Heena rce(s) Supporting Document(s) ID Date Data Source [id number] 06/16/2020 12:00:00 AM EDT [facility] ([facility]) Name Value Range Interpretation Code Description Data Heena rce(s) Supporting Document(s) SARS-CoV-2 (COVID-19) RNA [Presence] in Respiratory specimen by ALEKSANDR with probe detection negative negative normal Sars-cov-2 [facility] ID Date Data Source [id number] 06/16/2020 12:00:00 AM EDT [facility] ([facility]) Name Value Range Interpretation Code Description Data Heena rce(s) Supporting Document(s) ID Date Data Source [id number] 06/16/2020 12:00:00 AM EDT [facility] ([facility]) Name Value Range Interpretation Code Description Data Heena rce(s) Supporting Document(s) SARS-CoV-2 (COVID-19) RNA [Presence] in Respiratory specimen by ALEKSANDR with probe detection negative negative normal Sars-cov-2 [facility] ([facility]) ID Date Data Source [id number] 06/16/2020 12:00:00 AM EDT [facility] ([facility]) Name Value Range Interpretation Code Description Data Heena rce(s) Supporting Document(s) ID Date Data Source [id number] 06/16/2020 12:00:00 AM EDT [facility] ([facility]) Name Value Range Interpretation Code Description Data Heena rce(s) Supporting Document(s) SARS-CoV-2 (COVID-19) RNA [Presence] in Respiratory specimen by ALEKSANDR with probe detection negative negative normal Sars-cov-2 [facility] ([facility]) ID Date Data Source [id number] 06/16/2020 12:00:00 AM EDT [facility] ([facility]) Name Value Range Interpretation Code Description Data Heena rce(s) Supporting Document(s) ID Date Data Source [id number] 06/16/2020 12:00:00 AM EDT [facility] ([facility]) Name Value Range Interpretation Code Description Data Heena rce(s) Supporting Document(s) SARS coronavirus 2 RNA [Presence] in Res piratory specimen by ALEKSANDR with probe detection negative negative normal Sars-cov-2 [facility] ([facility]) ID Date Data Source [id number] 06/16/2020 12:00:00 AM EDT [facility] ([facility]) Name Value Range Interpretation Code Description Data Heena rce(s) Supporting Document(s) ID Date Data Source [id number] 06/16/2020 12:00:00 AM EDT [facility] ([facility]) Name Value Range Interpretation Code Description Data Heena rce(s) Supporting Document(s) SARS coronavirus 2 RNA [Presence] in Res piratory specimen by ALEKSANDR with probe detection negative negative normal Sars-cov-2 [facility] ID Date Data Source [id number] 06/16/2020 12:00:00 AM EDT [facility] ([facility]) Name Value Range Interpretation Code Description Data Heena rce(s) Supporting Document(s) ID Date Data Source [id number] 06/16/2020 12:00:00 AM EDT [facility] Name Value Range Interpretation Code Description Data Heena rce(s) Supporting Document(s) SARS-CoV-2 [facility] This lab was ordered by [facility] and reported by [facility]. ID Date Data Source [id number] 06/02/2020 12:00:00 AM EDT [facility] ([facility]) Name Value Range Interpretation Code Description Data Heena rce(s) Supporting Document(s) ID Date Data Source [id number] 06/02/2020 12:00:00 AM EDT ROLANDO ([facility]) Name Value Range Interpretation Code Description Data Heena rce(s) Supporting Document(s) ID Date Data Source [id number] 06/02/2020 12:00:00 AM EDT ROLANDO ([facility]) Name Value Range Interpretation Code Description Data Heena rce(s) Supporting Document(s) ID Date Data Source [id number] 06/02/2020 12:00:00 AM EDT ROLANDO ([facility]) Name Value Range Interpretation Code Description Data Heena rce(s) Supporting Document(s) ID Date Data Source [id number] 06/02/2020 12:00:00 AM EDT ROLANDO ([facility]) Name Value Range Interpretation Code Description Data Heena rce(s) Supporting Document(s) ID Date Data Source [id number] 06/02/2020 12:00:00 AM EDT ROLANDO ([facility]) Name Value Range Interpretation Code Description Data Heena rce(s) Supporting Document(s) ID Date Data Source [id number] 06/02/2020 12:00:00 AM EDT ROLANDO ([facility]) Name Value Range Interpretation Code Description Data Heena rce(s) Supporting Document(s) ID Date Data Source [id number] 06/02/2020 12:00:00 AM EDT ROLANDO ([facility]) Name Value Range Interpretation Code Description Data Heena rce(s) Supporting Document(s) ID Date Data Source [id number] 06/02/2020 12:00:00 AM EDT ROLANDO ([facility]) Name Value Range Interpretation Code Description Data Heena rce(s) Supporting Document(s) ID Date Data Source [id number] 06/02/2020 12:00:00 AM EDT [facility] Name Value Range Interpretation Code Description Data Heena rce(s) Supporting Document(s) SARS-CoV-2 [facility] This lab was ordered by [facility]-COVID19 and reported by [facility]. ID Date Data Source [id number] 05/16/2020 03:55:00 PM EDT MEDENT ([facility]) Name Value Range Interpretation Code Description Data Heena rce(s) Supporting Document(s) Hemoglobin A1c/Hemoglobin.total in Blood 10.0 MEDENT ([facility]) Glucose [Mass/volume] in Serum or Plasma 532 MEDENT ([facility]) Procedure Social History Code Duration Value Status Description Data Source(s ) Smoking 09/10/2020 12:00:00 AM EST Patient has never smoked co mpleted Patient has never smoked [facility] ([facility] ) Smoking 06/09/2020 12:00:00 AM EDT Patient has never smoked co mpleted Patient has never smoked MEDENT ([facility]) Vital Signs ID Date Data Source UNK Name Value Range Interpretation Code Description Data Source(s) Systolic blood pressure 127 mm[Hg] 127 mm[Hg] A THENA ([facility]) Body height 71 [in_i] 71 [in_i] ROLANDO ([facility]) Diastolic blood pressure 84 mm[Hg] 84 mm[Hg] ROLANDO ([facility]) Oxygen saturation in Arterial blood by Pulse oximetry 98 % 98 % MEDENT ([facility] ) Body mass index (BMI) [Ratio] 31.9 kg/m2 31.9 k g/m2 MEDENT ([facility] ) Body weight 217.50 [lb_av] 217.50 [lb_av] MEDEN T ([facility] ) Body height 69.25 [in_i] 69.25 [in_i] MEDENT ([facility]) 5'9.25" Body temperature 97.2 [degF] 97.2 [degF] MEDENT ([facility] ) Heart rate 89 /min 89 /min MEDENT ([facility] ) Diastolic blood pressure 84 mm[Hg] 84 mm[Hg] MEDENT ([facility]) Systolic blood pressure 126 mm[Hg] 126 mm[Hg] M EDENT ([facility]) Systolic blood pressure 128 mm[Hg] 128 mm[Hg] A THENA ([facility]) Body height 71 [in_i] 71 [in_i] ROLANDO ([facility]) Diastolic blood pressure 83 mm[Hg] 83 mm[Hg] ROLANDO ([facility]) Systolic blood pressure 128 mm[Hg] 128 mm[Hg] A THENA ([facility]) Body height 71 [in_i] 71 [in_i] ROLANDO ([facility]) Diastolic blood pressure 83 mm[Hg] 83 mm[Hg] ROLANDO ([facility]) Systolic blood pressure 128 mm[Hg] 128 mm[Hg] A THENA ([facility]) Body height 71 [in_i] 71 [in_i] [facility] ([facility]) Diastolic blood pressure 83 mm[Hg] 83 mm[Hg] ROLANDO ([facility]) Systolic blood pressure 128 mm[Hg] 128 mm[Hg] A THENA ([facility]) Body height 71 [in_i] 71 [in_i] ROLANDO ([facility]) Diastolic blood pressure 83 mm[Hg] 83 mm[Hg] ROLANDO ([facility]) Systolic blood pressure 128 mm[Hg] 128 mm[Hg] A THENA ([facility]) Body height 71 [in_i] 71 [in_i] ROLANDO ([facility]) Diastolic blood pressure 83 mm[Hg] 83 mm[Hg] ROLANDO ([facility]) Systolic blood pressure 119 mm[Hg] 119 mm[Hg] A THENA ([facility]) Body height 71 [in_i] 71 [in_i] ROLANDO ([facility]) Diastolic blood pressure 74 mm[Hg] 74 mm[Hg] ROLANDO ([facility]) Systolic blood pressure 119 mm[Hg] 119 mm[Hg] A THENA ([facility]) Body height 71 [in_i] 71 [in_i] ROLANDO ([facility]) Diastolic blood pressure 74 mm[Hg] 74 mm[Hg] ROLANDO ([facility]) Systolic blood pressure 119 mm[Hg] 119 mm[Hg] A THENA ([facility]) Body height 71 [in_i] 71 [in_i] ROLANDO ([facility]) Diastolic blood pressure 74 mm[Hg] 74 mm[Hg] ROLANDO ([facility]) Systolic blood pressure 119 mm[Hg] 119 mm[Hg] A THENA ([facility]) Body height 71 [in_i] 71 [in_i] ROLANDO ([facility]) Diastolic blood pressure 74 mm[Hg] 74 mm[Hg] ROLANDO ([facility]) Systolic blood pressure 119 mm[Hg] 119 mm[Hg] A THENA ([facility]) Body height 71 [in_i] 71 [in_i] ROLANDO ([facility]) Diastolic blood pressure 74 mm[Hg] 74 mm[Hg] ROLANDO ([facility]) Systolic blood pressure 119 mm[Hg] 119 mm[Hg] A THENA ([facility]) Body height 71 [in_i] 71 [in_i] ROLANDO ([facility]) Diastolic blood pressure 74 mm[Hg] 74 mm[Hg] ROLANDO ([facility]) Diastolic blood pressure 82 mm[Hg] 82 mm[Hg] MEDENT ([facility], [facility]) manual Systolic blood pressure 170 mm[Hg] 170 mm[Hg] M EDENT ([facility], [facility]) manual Body mass index (BMI) [Ratio] 30.7 kg/m2 30.7 k g/m2 MEDENT ([facility] [place], [facility]) Body height 71 [in_i] 71 [in_i] MEDENT ([facility] [place], [facility]) 5'11" Body weight 220.00 [lb_av] 220.00 [lb_av] MEDEN T ([facility], [facility]) Body temperature 98.1 [degF] 98.1 [degF] MEDENT ([facility] [place], [facility]) Oxygen saturation in Arterial blood by Pulse oximetry 98 % 98 % MEDENT ([place] [facility] [place], [facility]) Heart rate 103 /min 103 /min MEDENT ([facility], [facility]) Diastolic blood pressure 93 mm[Hg] 93 mm[Hg] MEDENT ([place] [facility] [place], [facility]) Systolic blood pressure 172 mm[Hg] 172 mm[Hg] M EDENT ([facility], [facility]) Systolic blood pressure 166 mm[Hg] 166 mm[Hg] A THENA ([facility]) Body height 71 [in_i] 71 [in_i] ROLANDO ([facility]) Diastolic blood pressure 77 mm[Hg] 77 mm[Hg] ROLANDO ([facility]) Systolic blood pressure 166 mm[Hg] 166 mm[Hg] A THENA ([facility]) Body height 71 [in_i] 71 [in_i] ROLANDO ([facility]) Diastolic blood pressure 77 mm[Hg] 77 mm[Hg] ROLANDO ([facility]) Systolic blood pressure 166 mm[Hg] 166 mm[Hg] A THENA ([facility]) Body height 71 [in_i] 71 [in_i] ROLANDO ([facility]) Diastolic blood pressure 77 mm[Hg] 77 mm[Hg] ROLANDO ([facility]) Systolic blood pressure 166 mm[Hg] 166 mm[Hg] A THENA ([facility]) Body height 71 [in_i] 71 [in_i] ROLANDO ([facility]) Diastolic blood pressure 77 mm[Hg] 77 mm[Hg] ROLANDO ([facility]) Systolic blood pressure 166 mm[Hg] 166 mm[Hg] A THENA ([facility]) Body height 71 [in_i] 71 [in_i] ROLANDO ([facility]) Diastolic blood pressure 77 mm[Hg] 77 mm[Hg] ROLANDO ([facility]) Systolic blood pressure 166 mm[Hg] 166 mm[Hg] A THENA ([facility]) Body height 71 [in_i] 71 [in_i] ROLANDO ([facility]) Diastolic blood pressure 77 mm[Hg] 77 mm[Hg] ROLANDO ([facility]) Systolic blood pressure 166 mm[Hg] 166 mm[Hg] A THENA ([facility]) Body height 71 [in_i] 71 [in_i] ROLANDO ([facility]) Diastolic blood pressure 77 mm[Hg] 77 mm[Hg] ROLANDO ([facility]) Systolic blood pressure 166 mm[Hg] 166 mm[Hg] A THENA ([facility]) Body height 71 [in_i] 71 [in_i] ROLANDO ([facility]) Diastolic blood pressure 77 mm[Hg] 77 mm[Hg] ROLANDO ([facility]) Systolic blood pressure 166 mm[Hg] 166 mm[Hg] A THENA ([facility]) Body height 71 [in_i] 71 [in_i] ROLANDO ([facility]) Diastolic blood pressure 77 mm[Hg] 77 mm[Hg] ROLANDO ([facility]) Systolic blood pressure 166 mm[Hg] 166 mm[Hg] A THENA ([facility]) Body height 71 [in_i] 71 [in_i] ROLANDO ([facility]) Diastolic blood pressure 77 mm[Hg] 77 mm[Hg] ROLANDO ([facility]) Systolic blood pressure 166 mm[Hg] 166 mm[Hg] A THENA ([facility]) Body height 71 [in_i] 71 [in_i] ROLANDO ([facility]) Diastolic blood pressure 77 mm[Hg] 77 mm[Hg] ROLANDO ([facility]) Body mass index (BMI) [Ratio] 30.7 kg/m2 30.7 k g/m2 MEDENT ([facility], [facility]) Body height 71 [in_i] 71 [in_i] MEDENT ([facility], [facility]) 5'11" Body weight 220.00 [lb_av] 220.00 [lb_av] MEDEN T ([facility], [facility]) Body temperature 97.1 [degF] 97.1 [degF] MEDENT ([place] [facility] [place], [facility]) Oxygen saturation in Arterial blood by Pulse oximetry 96 % 96 % MEDENT ([place] [facility] [place], [facility]) Respiratory rate 14 /min 14 /min MEDENT ( [place] [facility] [place], [facility]) Heart rate 112 /min 112 /min MEDENT ([facility], [facility]) Diastolic blood pressure 77 mm[Hg] 77 mm[Hg] MEDENT ([place] [facility] [place], [facility]) Systolic blood pressure 133 mm[Hg] 133 mm[Hg] M EDENT ([facility], [facility]) Oxygen saturation in Arterial blood by Pulse oximetry 99 % 99 % MEDENT ([facility] ) Body mass index (BMI) [Ratio] 31.7 kg/m2 31.7 k g/m2 MEDENT ([facility] ) Body weight 216.38 [lb_av] 216.38 [lb_av] MEDEN T ([facility]) Body height 69.25 [in_i] 69.25 [in_i] MEDENT ([facility]) 5'9.25" Heart rate 91 /min 91 /min MEDENT ([facility] ) Diastolic blood pressure 86 mm[Hg] 86 mm[Hg] MEDENT ([facility]) Systolic blood pressure 142 mm[Hg] 142 mm[Hg] M EDENT ([facility] ) Body mass index (BMI) [Ratio] 30.7 kg/m2 30.7 k g/m2 MEDENT ([facility], [facility]) Body height 71 [in_i] 71 [in_i] MEDENT ([facility] [place], [facility]) 5'11" Body weight 220.00 [lb_av] 220.00 [lb_av] MEDEN T ([facility], [facility]) Body temperature 98.6 [degF] 98.6 [degF] MEDENT ([place] [facility] [place], [facility]) Oxygen saturation in Arterial blood by Pulse oximetry 95 % 95 % MEDENT ([place] [facility] [place], [facility]) Respiratory rate 17 /min 17 /min MEDENT ( [place] [facility] [place], [facility]) Heart rate 111 /min 111 /min [facility]) Diastolic blood pressure 68 mm[Hg] 68 mm[Hg] MEDENT ([place] [facility] [place], [facility]) Systolic blood pressure 118 mm[Hg] 118 mm[facility] [facility] [place], [facility]) Body mass index (BMI) [Ratio] 30.4 kg/m2 30.4 k g/m2 MEDENT ([place] [facility] [place], [facility]) Body height 71 [in_i] 71 [in_i] MEDENT ([facility] [place], [facility]) 5'11" Body weight 218.00 [lb_av] 218.00 [lb_av] MEDEN T ([place] [facility] [place], [facility]) Body temperature 98.8 [degF] 98.8 [degF] MEDENT ([place] [facility] [place], [facility]) Oxygen saturation in Arterial blood by Pulse oximetry 98 % 98 % MEDENT ([facility], [facility]) Heart rate 110 /min 110 /min MEDENT ([facility], [facility]) Diastolic blood pressure 76 mm[Hg] 76 mm[Hg] MEDENT ([facility] [facility] [place], [facility]) did not take meds Systolic blood pressure 143 mm[Hg] 143 mm[Hg] M EDENT ([place] [facility] [place], [facility]) did not take meds Oxygen saturation in Arterial blood by Pulse oximetry 97 % 97 % MEDENT ([facility] ) Body mass index (BMI) [Ratio] 32.1 kg/m2 32.1 k g/m2 MED[facility] ([facility] ) Body weight 219.00 [lb_av] 219.00 [lb_av] MEDEN T ([facility] ) Body height 69.25 [in_i] 69.25 [in_i] MEDENT ([facility] ) 5'9.25" Heart rate 93 /min 93 /min MEDENT ([facility] ) Diastolic blood pressure 78 mm[Hg] 78 mm[Hg] MEDENT ([facility] ) Systolic blood pressure 146 mm[Hg] 146 mm[Hg] M EDENT ([facility] ) Body mass index (BMI) [Ratio] 30.7 kg/m2 30.7 k g/m2 MEDENT ([place] [facility] [place], [facility]) Body height 71 [in_i] 71 [in_i] MEDENT ([facility] [place], [facility]) 5'11" Body weight 220.00 [lb_av] 220.00 [lb_av] MEDEN T ([place] [facility] [place], [facility]) Body temperature 98.2 [degF] 98.2 [degF] MEDENT ([place] [facility] [place], [facility]) Oxygen saturation in Arterial blood by Pulse oximetry 96 % 96 % MEDENT ([facility], [facility]) Respiratory rate 16 /min 16 /min MEDENT ( [facility], [facility]) Heart rate 101 /min 101 /min MEDENT ([facility] [place], [facility]) Diastolic blood pressure 82 mm[Hg] 82 mm[Hg] MEDENT ([place] [facility] [place], [facility]) Systolic blood pressure 119 mm[Hg] 119 mm[Hg] M EDENT ([place] [facility] [place], [facility]) Respiratory rate 16 /min 16 /min MEDENT ( [facility] ) Heart rate 76 /min 76 /min MEDENT ([facility], ) Diastolic blood pressure 70 mm[Hg] 70 mm[Hg] MEDENT ([facility], ) Systolic blood pressure 110 mm[Hg] 110 mm[Hg] M EDENT ([facility], ) Respiratory rate 20 /min 20 /min MEDENT ( [facility], ) Heart rate 112 /min 112 /min MEDENT ([facility], ) Diastolic blood pressure 70 mm[Hg] 70 mm[Hg] MEDENT ([facility], ) Systolic blood pressure 110 mm[Hg] 110 mm[Hg] M EDENT ([facility], ) Patient Treatment Plan of Care Planned Activity Planned Date Details Description Data Source (s) topiramate 50 MG Oral Tablet ROLANDO ([facility]) Sumatriptan 25 MG Oral Tablet ROLANDO ([facility]) Simvastatin 20 MG Oral Tablet ROLANDO ([facility]) 0.5 ML pneumococcal capsular polysacchar triston type 1 vaccine 0.05 MG/ML / pneumococcal capsular polysaccharide type 10A vaccine 0.05 MG/ML / pneumococcal capsular polysaccharide type 11A vaccine 0.05 MG/ML / pneumococcal capsular polysaccharide type 12F vac ATHE NA ([facility]) Ondansetron 8 MG Oral Tablet ROLANDO ([facility]) Ondansetron 4 MG Oral Tablet ROLANDO ([facility]) Ondansetron 8 MG Disintegrating Oral Tablet ROLANDO ([facility]) Naproxen 250 MG Oral Tablet ROLANDO ([facility]) meloxicam 7.5 MG Oral Tablet ROLANDO ([facility]) Acetaminophen 325 MG / Hydrocodone Bitartrate 7.5 MG Oral Tablet ROLANDO ([facility]) Acetaminophen 325 MG / Hydrocodone Bitartrate 5 MG Oral Tablet ROLANDO ([facility]) doxycycline hyclate 100 MG Oral Tablet ROLANDO ([facility]) Divalproex Sodium 500 MG Delayed Release Oral Tablet ROLANDO ([facility]) Divalproex Sodium 250 MG Delayed Release Oral Tablet ROLANDO ([facility]) carvedilol 3.125 MG Oral Tablet ROLANDO ([facility]) Amoxicillin 875 MG / Clavulanate 125 MG Oral Tablet ROLANDO ([facility]) topiramate 50 MG Oral Tablet ROLANDO ([facility]) Sumatriptan 25 MG Oral Tablet ROLANDO ([facility]) Simvastatin 20 MG Oral Tablet ROLANDO ([facility]) 0.5 ML pneumococcal capsular polysacchar triston type 1 vaccine 0.05 MG/ML / pneumococcal capsular polysaccharide type 10A vaccine 0.05 MG/ML / pneumococcal capsular polysaccharide type 11A vaccine 0.05 MG/ML / pneumococcal capsular polysaccharide type 12F vac ATHE NA ([facility]) Ondansetron 8 MG Oral Tablet ROLANDO ([facility]) Ondansetron 4 MG Oral Tablet ROLANDO ([facility]) Ondansetron 8 MG Disintegrating Oral Tablet ROLANDO ([facility]) Naproxen 250 MG Oral Tablet ROLANDO ([facility]) Metformin hydrochloride 1000 MG Oral Tablet ROLANDO ([facility]) meloxicam 7.5 MG Oral Tablet ROLANDO ([facility]) Acetaminophen 325 MG / Hydrocodone Bitartrate 7.5 MG Oral Tablet ROLANDO ([facility]) Acetaminophen 325 MG / Hydrocodone Bitartrate 5 MG Oral Tablet ROLANDO ([facility]) doxycycline hyclate 100 MG Oral Tablet ROLANDO ([facility]) Divalproex Sodium 500 MG Delayed Release Oral Tablet ROLANDO ([facility]) Divalproex Sodium 250 MG Delayed Release Oral Tablet ROLANDO ([facility]) carvedilol 3.125 MG Oral Tablet ROLANDO ([facility]) Amoxicillin 875 MG / Clavulanate 125 MG Oral Tablet ROLANDO ([facility]) topiramate 50 MG Oral Tablet ROLANDO ([facility]) Sumatriptan 25 MG Oral Tablet ROLANDO ([facility]) Simvastatin 20 MG Oral Tablet ROLANDO ([facility]) 0.5 ML pneumococcal capsular polysacchar triston type 1 vaccine 0.05 MG/ML / pneumococcal capsular polysaccharide type 10A vaccine 0.05 MG/ML / pneumococcal capsular polysaccharide type 11A vaccine 0.05 MG/ML / pneumococcal capsular polysaccharide type 12F vac ATHE NA ([facility]) Ondansetron 8 MG Oral Tablet ROLANDO ([facility]) Ondansetron 4 MG Oral Tablet ROLANDO ([facility]) Ondansetron 8 MG Disintegrating Oral Tablet ROLANDO ([facility]) Naproxen 250 MG Oral Tablet ROLANDO ([facility]) Metformin hydrochloride 1000 MG Oral Tablet ROLANDO ([facility]) meloxicam 7.5 MG Oral Tablet ROLANDO ([facility]) topiramate 50 MG Oral Tablet ROLANDO ([facility]) Sumatriptan 25 MG Oral Tablet ROLANDO ([facility]) Simvastatin 20 MG Oral Tablet ROLANDO ([facility]) 0.5 ML pneumococcal capsular polysacchar triston type 1 vaccine 0.05 MG/ML / pneumococcal capsular polysaccharide type 10A vaccine 0.05 MG/ML / pneumococcal capsular polysaccharide type 11A vaccine 0.05 MG/ML / pneumococcal capsular polysaccharide type 12F vac ATHE NA ([facility]) Ondansetron 8 MG Oral Tablet ROLANDO ([facility]) Ondansetron 4 MG Oral Tablet ROLANDO ([facility]) Ondansetron 8 MG Disintegrating Oral Tablet ROLANDO ([facility]) Naproxen 250 MG Oral Tablet ROLANDO ([facility]) Metformin hydrochloride 1000 MG Oral Tablet ROLANDO ([facility]) meloxicam 7.5 MG Oral Tablet ROLANDO ([facility]) Acetaminophen 325 MG / Hydrocodone Bitartrate 7.5 MG Oral Tablet ROLANDO ([facility]) Acetaminophen 325 MG / Hydrocodone Bitartrate 5 MG Oral Tablet ROLANDO ([facility]) doxycycline hyclate 100 MG Oral Tablet ROLANDO ([facility]) Divalproex Sodium 500 MG Delayed Release Oral Tablet ROLANDO ([facility]) Divalproex Sodium 250 MG Delayed Release Oral Tablet ROLANDO ([facility]) carvedilol 3.125 MG Oral Tablet ROLANDO ([facility]) Amoxicillin 875 MG / Clavulanate 125 MG Oral Tablet ROLANDO ([facility]) topiramate 50 MG Oral Tablet ROLANDO ([facility]) Sumatriptan 25 MG Oral Tablet ROLANDO ([facility]) Ondansetron 8 MG Oral Tablet ROLANDO ([facility]) Ondansetron 4 MG Oral Tablet ROLANDO ([facility]) Ondansetron 8 MG Disintegrating Oral Tablet ROLANDO ([facility]) Naproxen 250 MG Oral Tablet ROLANDO ([facility]) meloxicam 7.5 MG Oral Tablet ROLANDO ([facility]) Acetaminophen 325 MG / Hydrocodone Bitartrate 7.5 MG Oral Tablet ROLANDO ([facility]) Acetaminophen 325 MG / Hydrocodone Bitartrate 5 MG Oral Tablet ROLANDO ([facility]) doxycycline hyclate 100 MG Oral Tablet ROLANDO ([facility]) Divalproex Sodium 250 MG Delayed Release Oral Tablet ROLANDO ([facility]) carvedilol 3.125 MG Oral Tablet ROLANDO ([facility]) Amoxicillin 875 MG / Clavulanate 125 MG Oral Tablet ROLANDO ([facility]) topiramate 50 MG Oral Tablet ROLANDO ([facility]) Sumatriptan 25 MG Oral Tablet ROLANDO ([facility]) Simvastatin 20 MG Oral Tablet ROLANDO ([facility]) 0.5 ML pneumococcal capsular polysacchar triston type 1 vaccine 0.05 MG/ML / pneumococcal capsular polysaccharide type 10A vaccine 0.05 MG/ML / pneumococcal capsular polysaccharide type 11A vaccine 0.05 MG/ML / pneumococcal capsular polysaccharide type 12F vac ATHE NA ([facility]) Ondansetron 8 MG Oral Tablet ROLANDO ([facility]) Ondansetron 4 MG Oral Tablet ROLANDO ([facility]) Ondansetron 8 MG Disintegrating Oral Tablet ROLANDO ([facility]) Naproxen 250 MG Oral Tablet ROLANDO ([facility]) meloxicam 7.5 MG Oral Tablet ROLANDO ([facility]) Acetaminophen 325 MG / Hydrocodone Bitartrate 7.5 MG Oral Tablet ROLANDO ([facility]) Acetaminophen 325 MG / Hydrocodone Bitartrate 5 MG Oral Tablet ROLANDO ([facility]) doxycycline hyclate 100 MG Oral Tablet ROLANDO ([facility]) Divalproex Sodium 500 MG Delayed Release Oral Tablet ROLANDO ([facility]) Divalproex Sodium 250 MG Delayed Release Oral Tablet ROLANDO ([facility]) carvedilol 3.125 MG Oral Tablet ROLANDO ([facility]) Amoxicillin 875 MG / Clavulanate 125 MG Oral Tablet ROLANDO ([facility]) Acetaminophen 325 MG / Hydrocodone Bitartrate 7.5 MG Oral Tablet ROLANDO ([facility]) Acetaminophen 325 MG / Hydrocodone Bitartrate 5 MG Oral Tablet ROLANDO ([facility]) doxycycline hyclate 100 MG Oral Tablet ROLANDO ([facility]) Divalproex Sodium 500 MG Delayed Release Oral Tablet ROLANDO ([facility]) Divalproex Sodium 250 MG Delayed Release Oral Tablet ROLANDO ([facility]) carvedilol 3.125 MG Oral Tablet ROLANDO ([facility]) Amoxicillin 875 MG / Clavulanate 125 MG Oral Tablet ROLANDO ([facility])
[2020-10-10] MEDS ORDERED: SUMA50TA2 (15:02)
--- OUTSIDE RECORDS SUMMARY | 2020-10-10 16:03 | CCD ---
Author Author [facility] Organization [facility] Address Unknown Phone Unavailable Care Team Providers Care Television Specialist Name Role Phone Jumalon, M Nyla WEB SOFTWARE ENGINEER Unavailable Unavailable Jumalon, M Nyla WEB SOFTWARE ENGINEER Unavailable Unavailable Jumalon, M Nyla WEB SOFTWARE ENGINEER Unavailable Unavailable Jumalon, M Nyla WEB SOFTWARE ENGINEER Unavailable Unavailable Jumalon, M Nyla WEB SOFTWARE ENGINEER Unavailable Unavailable Jumalon, M Nyla WEB SOFTWARE ENGINEER Unavailable Unavailable Jumalon, M Nyla WEB SOFTWARE ENGINEER Unavailable Unavailable Jumalon, M Nyla WEB SOFTWARE ENGINEER Unavailable Unavailable Jumalon, M Nyla WEB SOFTWARE ENGINEER Unavailable Unavailable Jumalon, M Nyla WEB SOFTWARE ENGINEER Unavailable Unavailable Jumalon, M Nyla WEB SOFTWARE ENGINEER Unavailable Unavailable Jumalon, M Nyla WEB SOFTWARE ENGINEER Unavailable Unavailable Jumalon, M Nyla WEB SOFTWARE ENGINEER Unavailable Unavailable Jumalon, M Nyla WEB SOFTWARE ENGINEER Unavailable Unavailable Jumalon, M Nyla WEB SOFTWARE ENGINEER Unavailable Unavailable Jumalon, M Nyla WEB SOFTWARE ENGINEER Unavailable Unavailable Jumalon, M Nyla WEB SOFTWARE ENGINEER Unavailable Unavailable Jumalon, M Nyla WEB SOFTWARE ENGINEER Unavailable Unavailable Jumalon, M Nyla WEB SOFTWARE ENGINEER Unavailable Unavailable Jumalon, M Nyla WEB SOFTWARE ENGINEER Unavailable Unavailable Jumalon, M Nyla WEB SOFTWARE ENGINEER Unavailable Unavailable Jumalon, M Nyla WEB SOFTWARE ENGINEER Unavailable Unavailable Jumalon, M Nyla WEB SOFTWARE ENGINEER Unavailable Unavailable Jumalon, M Nyla WEB SOFTWARE ENGINEER Unavailable Unavailable Jumalon, M Nyla WEB SOFTWARE ENGINEER Unavailable Unavailable Jumalon, M Nyla WEB SOFTWARE ENGINEER Unavailable Unavailable Jumalon, M Nyla WEB SOFTWARE ENGINEER Unavailable Unavailable Jumalon, M Nyla WEB SOFTWARE ENGINEER Unavailable Unavailable Trickey, J Carmen PA Unavailable [...] PA Unavailable Unavailable Paco Monreal MD Unavailable [phone] Paco Monreal MD Unavailable [phone] Malek, T Jeffreyza MD Unavailable [phone] Malek, T Hamza MD Unavailable [phone] Malek, T Hamza MD Unavailable [phone] Malek, T Hamza MD Unavailable [phone] Malek, T Hamza MD Unavailable [phone] Malek, T Hamza MD Unavailable [phone] Malek, T Hamza MD Unavailable [phone] Malek, T Hamza MD Unavailable [phone] Malek, T Hamza MD Unavailable [phone] Malek, T Hamza MD Unavailable [phone] Malek, T Hamza MD Unavailable [phone] Campanaro, Mare Deborah PA Unavailable Unavailable Campanaro, [...] B Sarah CARLSON Unavailable Unavailable Fish, B Sraah CARLSON Unavailable Unavailable Fish, B Sarah CARLSON [...] Unavailable NIGEL, AIMEE PA Unavailable Unavailable NIGEL, IAMEE PA Unavailable Unavailable NIGEL, AIMEE PA Unavailable [...] AIMEE PA Unavailable Unavailable COOK, B LESA SCENE AND LIGHTING DESIGN LECTURER Unavailable Unavailable COOK, B LESA SCENE AND LIGHTING DESIGN LECTURER Unavailable Unavailable COOK, B LESA SCENE AND LIGHTING DESIGN LECTURER Unavailable Unavailable COOK, B LESA SCENE AND LIGHTING DESIGN LECTURER Unavailable Unavailable COOK, B LESA SCENE AND LIGHTING DESIGN LECTURER Unavailable Unavailable COOK, B LESA SCENE AND LIGHTING DESIGN LECTURER Unavailable Unavailable COOK, B LESA SCENE AND LIGHTING DESIGN LECTURER Unavailable Unavailable COOK, B LESA SCENE AND LIGHTING DESIGN LECTURER Unavailable Unavailable COOK, B LESA SCENE AND LIGHTING DESIGN LECTURER Unavailable Unavailable COOK, B LESA SCENE AND LIGHTING DESIGN LECTURER Unavailable Unavailable COOK, B LESA SCENE AND LIGHTING DESIGN LECTURER Unavailable Unavailable COOK, B LESA SCENE AND LIGHTING DESIGN LECTURER Unavailable Unavailable COOK, B LESA SCENE AND LIGHTING DESIGN LECTURER Unavailable Unavailable COOK, B LESA SCENE AND LIGHTING DESIGN LECTURER Unavailable Unavailable COOK, B LESA SCENE AND LIGHTING DESIGN LECTURER Unavailable Unavailable COOK, B LESA SCENE AND LIGHTING DESIGN LECTURER Unavailable Unavailable COOK, B LESA SCENE AND LIGHTING DESIGN LECTURER Unavailable Unavailable COOK, B LESA SCENE AND LIGHTING DESIGN LECTURER Unavailable Unavailable COOK, B LESA SCENE AND LIGHTING DESIGN LECTURER Unavailable Unavailable COOK, B LESA SCENE AND LIGHTING DESIGN LECTURER Unavailable Unavailable COOK, B LESA SCENE AND LIGHTING DESIGN LECTURER Unavailable Unavailable COOK, B LESA SCENE AND LIGHTING DESIGN LECTURER Unavailable Unavailable COOK, B LESA SCENE AND LIGHTING DESIGN LECTURER Unavailable Unavailable COOK, B LESA SCENE AND LIGHTING DESIGN LECTURER Unavailable Unavailable COOK, B LESA SCENE AND LIGHTING DESIGN LECTURER Unavailable Unavailable COOK, B LESA SCENE AND LIGHTING DESIGN LECTURER Unavailable Unavailable COOK, B LESA SCENE AND LIGHTING DESIGN LECTURER Unavailable Unavailable COOK, B LESA SCENE AND LIGHTING DESIGN LECTURER Unavailable Unavailable COOK, B LESA SCENE AND LIGHTING DESIGN LECTURER Unavailable Unavailable COOK, B LESA SCENE AND LIGHTING DESIGN LECTURER Unavailable Unavailable COOK, B LESA SCENE AND LIGHTING DESIGN LECTURER Unavailable Unavailable COOK, B LESA SCENE AND LIGHTING DESIGN LECTURER Unavailable Unavailable COOK, B LESA SCENE AND LIGHTING DESIGN LECTURER Unavailable Unavailable COOK, B LESA SCENE AND LIGHTING DESIGN LECTURER Unavailable Unavailable COOK, B LESA SCENE AND LIGHTING DESIGN LECTURER Unavailable Unavailable COOK, B LESA SCENE AND LIGHTING DESIGN LECTURER Unavailable Unavailable COOK, B LSEA SCENE AND LIGHTING DESIGN LECTURER Unavailable Unavailable COOK, B LESA SCENE AND LIGHTING DESIGN LECTURER Unavailable Unavailable COOK, B LESA SCENE AND LIGHTING DESIGN LECTURER Unavailable Unavailable COOK, B LESA SCENE AND LIGHTING DESIGN LECTURER Unavailable Unavailable COOK, B LESA SCENE AND LIGHTING DESIGN LECTURER Unavailable Unavailable COOK, B LESA SCENE AND LIGHTING DESIGN LECTURER Unavailable Unavailable COOK, B LESA SCENE AND LIGHTING DESIGN LECTURER Unavailable Unavailable COOK, B LESA SCENE AND LIGHTING DESIGN LECTURER Unavailable Unavailable COOK, B LESA SCENE AND LIGHTING DESIGN LECTURER Unavailable Unavailable COOK, B LESA SCENE AND LIGHTING DESIGN LECTURER Unavailable Unavailable COOK, B LESA SCENE AND LIGHTING DESIGN LECTURER Unavailable Unavailable COOK, B LESA SCENE AND LIGHTING DESIGN LECTURER Unavailable Unavailable COOK, B LESA SCENE AND LIGHTING DESIGN LECTURER Unavailable Unavailable COOK, B LESA SCENE AND LIGHTING DESIGN LECTURER Unavailable Unavailable COOK, B LESA SCENE AND LIGHTING DESIGN LECTURER Unavailable Unavailable COOK, B LESA SCENE AND LIGHTING DESIGN LECTURER Unavailable Unavailable COOK, B LESA SCENE AND LIGHTING DESIGN LECTURER Unavailable Unavailable COOK, B LESA SCENE AND LIGHTING DESIGN LECTURER Unavailable Unavailable COOK, B LESA SCENE AND LIGHTING DESIGN LECTURER Unavailable Unavailable COOK, B LESA SCENE AND LIGHTING DESIGN LECTURER Unavailable Unavailable COOK, B LESA SCENE AND LIGHTING DESIGN LECTURER Unavailable Unavailable COOK, B LESA SCENE AND LIGHTING DESIGN LECTURER Unavailable Unavailable COOK, B LESA SCENE AND LIGHTING DESIGN LECTURER Unavailable Unavailable COOK, B LESA SCENE AND LIGHTING DESIGN LECTURER Unavailable Unavailable COOK, B LESA SCENE AND LIGHTING DESIGN LECTURER Unavailable Unavailable COOK, B LESA SCENE AND LIGHTING DESIGN LECTURER Unavailable Unavailable COOK, B LESA SCENE AND LIGHTING DESIGN LECTURER Unavailable Unavailable COOK, B LESA SCENE AND LIGHTING DESIGN LECTURER Unavailable Unavailable BolDenise vora MD Unavailable Unavailable [...] is protected by Article 27-F of the [facility] Public Health law. If you continue you may have access to information: Regarding HIV / AIDS; Provided by facilities licensed or operated by the [facility] Office of Mental Health; or Provided by the [facility] Office for People With Developmental Disabilities. If such information is present, then the following [facility] mandated warning applies: This information has [...] law may result in a fine or mcfp sentence or both. A general authorization for [...] Date Indications Data Source(s ) Nyla Boland SCENE AND LIGHTING DESIGN LECTURER: [address], [address], [place] [address], Ph. Attender: Nyla CASTRO [place] - [facility] 09/26/2020 12:00:00 AM EST ATHE NA ([facility]) Stephon Cullen MD: [address], [place] [address], Ph. Attender: Stephon Cullen MD [place] - [facility] 09/11/2020 12:00:00 AM EST ROLANDO ([facility]) Office Visit Attender: LESA NUNN NP Physical Therapy 2020 08:00:00 AM EST MEDENT ([facility]) Stephon Cullen MD: [address], [facility] [address], Ph. [phone] Attender: Stephon Cullen MD [place] - [facility] 09/08/2020 12:00:00 AM EST ROLANDO ([facility]) Stephon Cullen MD: [address], [place] [address], Ph. [phone] Attender: Stephon VILLARERAL - [facility] 09/08/2020 12:00:00 AM EST ROLANDO ([facility]) Stephon Cullen MD: [address], [place] [address], Ph. Attender: Stephon VILLARREAL - [facility] 08/18/2020 12:00:00 AM EST ROLANDO ([facility]) Stephon Cullen MD: [address], [place] [address], Ph. Attender: Stephon VILLARREAL - [facility] 08/18/2020 12:00:00 AM EST ROLANDO ([facility]) Stephon Cullen MD: [address], [place] [address], Ph. Attender: Stephon [place]ullen [place] [facility] 08/18/2020 12:00:00 AM EST ROLANDO ([facility]) Stephon Cullen MD: [address], [place] [address], Ph. [phone] Attender: Stephon [place]ullen [place] [facility] 08/13/2020 12:00:00 AM EST ROLANDO ([facility]) Stephon Cullen MD: [address], [place] [address], Ph. [phone] Attender: Stephon [place] [facility] 08/13/2020 12:00:00 AM EST ROLANDO ([facility]) Stephon Cullen MD: [address], [place] [address], Ph. [phone] Attender: Stephon [place]ullen [place] [facility] 08/13/2020 12:00:00 AM EST ROLANDO ([facility]) Stephon Cullen MD: [address], [place] [address], Ph. [phone] Attender: Stephon Cullen MD [place] [facility] 08/13/2020 12:00:00 AM EST ROLANDO ([facility]) Nyla Boland, SCENE AND LIGHTING DESIGN LECTURER: [address], [place] [address], Ph. Attender: Nyla CASTRO [place] - [facility] 08/06/2020 12:00:00 AM EST ATHE NA ([facility]) Nyla Boland, SCENE AND LIGHTING DESIGN LECTURER: [address], [place] [address], Ph. Attender: Nyla Boland [facility] - [facility] 08/06/2020 12:00:00 AM EST ATHE NA ([facility]) Nyla Boland, SCENE AND LIGHTING DESIGN LECTURER: [address], [place] [address], Ph. Attender: Nyla Boland [facility] - [facility] 08/06/2020 12:00:00 AM EST ATHE NA ([facility]) Nyla Boland, SCENE AND LIGHTING DESIGN LECTURER: [address], [place] [address], Ph. Attender: Nyla Boland [facility] 08/06/2020 12:00:00 AM EST ATHE NA ([facility]) Nyla Boland, SCENE AND LIGHTING DESIGN LECTURER: [address], [place] [address], Ph. Attender: Nyla Boland [facility] 08/06/2020 12:00:00 AM EST ATHE NA ([facility]) Outpatient Attender: Carmen Wisdom [facility] 07/22/2020 08:00:00 AM EST MEDENT ([facility], ) Nyla Boland, SCENE AND LIGHTING DESIGN LECTURER: [address], [place] [address], Ph. Attender: Nyla Boland [facility] 07/03/2020 12:00:00 AM EDT ATHE NA ([facility]) Nyla Boland, SCENE AND LIGHTING DESIGN LECTURER: [address], [place] [address], Ph. Attender: Nyla Boland [facility] - [facility] 07/03/2020 12:00:00 AM EDT ATHE NA ([facility]) Nyla Boland, SCENE AND LIGHTING DESIGN LECTURER: [address], [place] [address], Ph. Attender: Nyla Boland [facility] - [facility] 07/03/2020 12:00:00 AM EDT ATHE NA ([facility]) Nyla Boland, SCENE AND LIGHTING DESIGN LECTURER: [address], [place] [address], Ph. Attender: Nyla Boland [facility] 07/03/2020 12:00:00 AM EDT ATHE NA ([facility]) Nyla Boland, SCENE AND LIGHTING DESIGN LECTURER: [address], [place] [address], Ph. Attender: Nyla Boland [facility] - [facility] 07/03/2020 12:00:00 AM EDT ATHE NA ([facility]) Nyla Boland, SCENE AND LIGHTING DESIGN LECTURER: [address], [place] [address], Ph. Attender: Nyla Boland [facility] - [facility] 07/03/2020 12:00:00 AM EDT ATHE NA ([facility]) Stephon Cullen MD: [address], [place] [address], Ph. Attender: Stephon Cullen [place] [facility] 06/20/2020 12:00:00 AM EDT ROLANDO ([facility]) Stephon Cullen MD: [address], [address], [place] [address], Ph. Attender: Stephon [place]ullen [place] [facility] 06/20/2020 12:00:00 AM EDT ROLANDO ([facility]) Stephon Cullen MD: [address], [address], [place] [address], Ph. Attender: Stephon [place]ullen [place] [facility] 06/20/2020 12:00:00 AM EDT ROLANDO ([facility]) Stephon Cullen MD: [address], [address], [place] [address], Ph. Attender: Stephon VILLARREAL - [facility] 06/20/2020 12:00:00 AM EDT ROLANDO ([facility]) Stephon Cullen MD: [address], [address], [place] [address], Ph. Attender: Stephon [place] [facility] 06/20/2020 12:00:00 AM EDT ROLANDO ([facility]) Stephon Cullen MD: [address], [address], [place] [address], Ph. Attender: Stephon VILLARREAL - [facility] 06/20/2020 12:00:00 AM EDT ROLANDO ([facility]) Stephon Cullen MD: [address], [address], [place] [address], Ph. Attender: Stephon VILLARREAL - [facility] 06/20/2020 12:00:00 AM EDT ROLANDO ([facility]) Stephon Cullen MD: [address], [address], [place] [address], Ph. [phone] Attender: Ste[place] - [facility] - [facility] 06/16/2020 12:00:00 AM EDT ROLANDO ([facility]) Stephon Cullen MD: [address], [address], [place] [address], Ph. [phone] Attender: Stephon [place]ullen [place] [facility] - [facility] 06/16/2020 12:00:00 AM EDT ROLANDO ([facility]) Stephon Cullen MD: [address], [address], [place] [address], Ph. [phone] Attender: Stephon Cullen [place] [facility] 06/16/2020 12:00:00 AM EDT ROLANDO ([facility]) Stephon Cullen MD: [address], [address], [place] [address], Ph. [phone] Attender: Stephon [place] [facility] - [facility] 06/16/2020 12:00:00 AM EDT ROLANDO ([facility]) Stephon Cullen MD: [address], [address], [place] [address], Ph. [phone] Attender: Stephon [place]ullen [place] [facility] - [facility] 06/16/2020 12:00:00 AM EDT ROLANDO ([facility]) Stephon Cullen MD: [address], [address], [place] [address], Ph. [phone] Attender: Stephon [place]ullen [place] [facility] 06/16/2020 12:00:00 AM EDT ROLANDO ([facility]) Stephon Cullen MD: [address], [address], [place] [address], Ph. [phone] Attender: Ste[place] [facility] - [facility] 06/16/2020 12:00:00 AM EDT ROLANDO ([facility]) Stephon Cullen MD: [address], [address], [place] [address], Ph. [phone] Attender: Stephon [place]ullen [place] [facility] - [facility] 06/16/2020 12:00:00 AM EDT ROLANDO ([facility]) Outpatient Attender: Deborah Harmon gisele 06/09/2020 04:35:00 PM EDT MEDENT ([facility]) Stephon Cullen MD: [address], [address], [place] [address], Ph. Attender: Stephon VILLARREAL - [facility] 06/06/2020 12:00:00 AM EDT ROLANDO ([facility]) Stephon Cullen MD: [address], [address], [place] [address], Ph. Attender: Stephon VILLARREAL - [facility] 06/06/2020 12:00:00 AM EDT ROLANDO ([facility]) Stephon Cullen MD: [address], [address], [place] [address], Ph. Attender: Stephon VILLARREAL - [facility] 06/06/2020 12:00:00 AM EDT ROLANDO ([facility]) Stephon Cullen MD: [address], [address], [place] [address], Ph. Attender: Stephon VILLARREAL - [facility] - [facility] 06/06/2020 12:00:00 AM EDT ROLANDO ([facility]) Stephon Cullen MD: [address], [address], [place] [address], Ph. Attender: Stephon [place]ullen [place] [facility] 06/06/2020 12:00:00 AM EDT ROLANDO ([facility]) Stephon Cullen MD: [address], [address], [place] [address], Ph. Attender: Stephon Cullen [place] [facility] 06/06/2020 12:00:00 AM EDT ROLANDO ([facility]) Stephon Cullen MD: [address], [address], [place] [address], Ph. Attender: Stephon Cullen [place] [facility] 06/06/2020 12:00:00 AM EDT ROLANDO ([facility]) Stephon Cullen MD: [address], [address], [place] [address], Ph. Attender: Stephon Cullen [place] [facility] 06/06/2020 12:00:00 AM EDT ROLANDO ([facility]) Stephon Cullen MD: [address], [address], [place] [address], Ph. Attender: Stephon Cullen [place] [facility] 06/06/2020 12:00:00 AM EDT ROLANDO ([facility]) Stephon Cullen MD: [address], [address], [place] [address], Ph. [phone] Attender: Stephon [place]ullen [place] [facility] 06/02/2020 12:00:00 AM EDT ROLANDO ([facility]) Stephon Cullen MD: [address], [address], [place] [address], Ph. [phone] Attender: Stephon [place]ullen [place] [facility] - [facility] 06/02/2020 12:00:00 AM EDT ROLANDO ([facility]) Stephon Cullen MD: [address], [address], [place] [address], Ph. [phone] Attender: Stephon [place]ullen [place] [facility] - [facility] 06/02/2020 12:00:00 AM EDT ROLANDO ([facility]) Stephon Cullen MD: [address], [address], [place] [address], Ph. [phone] Attender: Stephon Cullen [place] [facility] 06/02/2020 12:00:00 AM EDT ROLANDO ([facility]) Stephon Cullen MD: [address], [address], [place] [address], Ph. [phone] Attender: Stephon Cullen [place] [facility] 06/02/2020 12:00:00 AM EDT ROLANDO ([facility]) Stephon Cullen MD: [address], [address], [place] [address], Ph. [phone] Attender: Stephon [place]ullen [place] [facility] 06/02/2020 12:00:00 AM EDT ROLANDO ([facility]) Stephon Cullen MD: [address], [address], [place] [address], Ph. [phone] Attender: Stephon [place]ullen [place] [facility] 06/02/2020 12:00:00 AM EDT ROLANDO ([facility]) Stephon Cullen MD: [address], [address], [facility] [place] [address], Ph. [phone] Attender: Stephon Cullen [place] - [facility] 06/02/2020 12:00:00 AM EDT ROLANDO ([facility]) Stephon Cullen MD: [address], [place] [address], Ph. [phone] Attender: Stephon Cullen [place] - [facility] 06/02/2020 12:00:00 AM EDT ROLANDO ([facility]) Stephon Cullen MD: [address], [place] [address], Ph. [phone] Attender: Stephon Cullen [place] - [facility] 06/02/2020 12:00:00 AM EDT ROLANDO ([facility]) Nyla Boland, SCENE AND LIGHTING DESIGN LECTURER: [address], [place] [address], Ph. Attender: Nyla Boland [facility] - [facility] [facility] 05/23/2020 12:00:00 AM EDT ATHE NA ([facility]) Nyla Boland, SCENE AND LIGHTING DESIGN LECTURER: [id number], [place] [address], Ph. Attender: Nyla Boland [facility] - [facility] 05/23/2020 12:00:00 AM EDT ATHE NA ([facility]) Nyla Boland, SCENE AND LIGHTING DESIGN LECTURER: [address], [place] [address], Ph. Attender: Nyla Boland [facility] - [facility] 05/23/2020 12:00:00 AM EDT ATHE NA ([facility]) Nyla Boland, SCENE AND LIGHTING DESIGN LECTURER: [address], [address], [place] [address], Ph. Attender: Nyla Boland [facility] - [facility] 05/23/2020 12:00:00 AM EDT ATHE NA ([facility]) Nyla Boland, SCENE AND LIGHTING DESIGN LECTURER: [address], [address], [place] [address], Ph. Attender: Nyla Boland [facility] - [facility] 05/23/2020 12:00:00 AM EDT ATHE NA ([facility]) Nyla Boland, SCENE AND LIGHTING DESIGN LECTURER: [address], [address], [place] [address], Ph. Attender: Nyla Boland [facility] - [facility] 05/23/2020 12:00:00 AM EDT ATHE NA ([facility]) Nyla Boland, SCENE AND LIGHTING DESIGN LECTURER: [address], [address], [place] [address], Ph. Attender: Nyla Boland [facility] - [facility] 05/23/2020 12:00:00 AM EDT ATHE NA ([facility]) Nyla Boland, SCENE AND LIGHTING DESIGN LECTURER: [address], [address], [place] [address], Ph. Attender: Nyla Boland [facility] - [facility] 05/23/2020 12:00:00 AM EDT ATHE NA ([facility]) Nyla Boland, SCENE AND LIGHTING DESIGN LECTURER: [address], [address], [place] [address], Ph. Attender: Nyla Boland [facility] - [facility] 05/23/2020 12:00:00 AM EDT ATHE NA ([facility]) Nyla Boland, SCENE AND LIGHTING DESIGN LECTURER: [address], [address], [place] [address], Ph. Attender: Nyla Boland [facility] - [facility] - Main Office 05/23/2020 12:00:00 AM EDT ATHE NA ([facility]) Nyla Boland, SCENE AND LIGHTING DESIGN LECTURER: [address], [address], [place] [address], Ph. Attender: Nyla Boland [facility] - [facility] Office 05/23/2020 12:00:00 AM EDT ATHE NA ([facility]) Outpatient Attender: AIMEE farooq 05/22/2020 05:15:00 PM EDT [facility] ([facility]) Office Visit Attender: Sarah Lee MD Physical Therapy 05/16 03:30:00 PM EDT [facility] ([facility]) Outpatient Attender: Paloma Monreal MD [facility] 04/18 12:26:00 PM EDT - 04/18/2020 12:27:00 PM EDT [facility] Patient discharged. Outpatient Attender: GODWIN jaquez 04/09/2020 12:15:00 PM EDT [facility] ([facility]) Outpatient Attender: GODWIN Harmon gisele 03/12/2020 12:00:00 PM EDT [facility] ([facility]) Outpatient Attender: LESA NUNN NP Physical Therapy 02/04/2020 0 3:45:00 PM EDT [facility] ([facility]) Outpatient Attender: LESA NUNN NP Physical Therapy 12/05/2019 1 1:15:00 AM EDT [facility] ([facility]) Outpatient 12/05/2019 06:14:00 AM EDT [facility] Outpatient Attender: GODWIN Harmon gisele 10/05/2019 05:35:00 PM EST [facility] ([facility]) Outpatient Attender: Carmen SOTELO Main office - [facility] n 09/20/2019 01:30:00 PM EST [facility] ([facility]) Outpatient Attender: Paloma Monreal MD [facility] 09/18 01:39:00 PM EST - 09/18/2019 01:40:00 PM EST [facility] Patient discharged. Outpatient Attender: Carmen SOTELO Main office - [facility] n 08/20/2019 07:00:00 AM EST [facility] ([facility]) Immunizations Vaccine Date Status Description Data Source(s) INFLUENZA VIRUS VACCINE QUADRIVAL [id number](6 MOS AND UP)/PF 09/01/2019 12:00:00 AM EST completed [facility] PNEUMOCOCCAL 23-VALENT POLYSACCHARIDE VACCINE 09/01/2019 12: 00:00 AM EST completed [facility] Medications Medication Brand Name Start Date Product Form Dose Route Admi nistrative Instructions Pharmacy Instructions Status Indications Reaction Description Data Source(s) BD Pen Needle/Original/Ultra-Fine/29G X 12.7mm 09/10/2020 12:00:00 AM EST active [facility] ([facility]) Tresiba Flextouch Tresiba Flextouch 08/21/2020 12:00:00 AM EST active [facility] ([facility]) Tresiba Flextouch Tresiba Flextouch 08/20/2020 12:00:00 AM EST completed [facility] ([facility]) 40 mg 08/19/2020 12:00:00 AM [...] A DAY NEEDED FOR DIARRHEA SOLD: 06/10/2020 [facility] Ondansetron 4 MG Oral Tablet Ondansetron HCL 06/09/2020 12:00:00 AM E DT ORAL active [facility] ([facility]) Dicyclomine Hydrochloride 10 MG Oral Capsule Dicyclomine HCL 06/09/2020 12:00:00 AM EDT ORAL active [facility] ([facility]) Phenergan/Promethazine Hci Injection To 50 MG 05/22/2020 1 2:00:00 AM EDT completed [facility] ([facility]) Medication administered onsite 10 mg 05/05/2020 [...] Corrieostar 12/05/2019 12:00:00 AM EDT active [facility] ([facility]) 90 mcg/actuation 11/07/2019 12:00:00 [...] HCL 10/05/2019 12:00:00 AM EST active [facility] ([facility]) Divalproex Sodium 500 MG Delayed Release Oral Tablet Divalpr oex Sodium 09/20/2019 12:00:00 AM EST ORAL active [facility] ([facility]) 250 mg 08/20/2019 12:00:00 AM EST tablet,delayed release (DR/EC) 30 TAKE ONE TABLET BY MOUTH AT BEDTIME TAKE ONE TABLET BY MOUTH AT BEDTIME SOLD: 08/20/2019 [facility] Divalproex Sodium 250 MG Delayed Release Oral Tablet [Depako te] Depakote 08/20/2019 12:00:00 AM EST ORAL completed [facility] ([facility]) 250 mg 08/20/2019 12:00:00 AM EST tablet,delayed release (DR/EC) 30 TAKE ONE TABLET BY MOUTH AT BEDTIME TAKE ONE TABLET BY MOUTH AT BEDTIME SOLD: 09/26/2019 [facility] 25 mg 07/04/2019 12:00:00 AM EDT [...] BY MOUTH TWICE A DAY SOLD: 09/26/2019 [facility] Ondansetron 8 MG Oral Tablet ondansetron HCl 8 mg tabl et ondansetron HCl 8 mg tablet completed ondansetron 8 M G Oral Tablet ROLANDO ([facility]) 0.5 ML pneumococcal capsular polysacchar triston type [...] Prefilled Syringe [Pneumovax 23] ROLANDO ([facility]) 0.5 ML pneumococcal capsular polysacchar triston type [...] Prefilled Syringe [Pneumovax 23] ROLANDO ([facility]) carvedilol 3.125 MG Oral Tablet carvedilol 3.125 mg ta blet carvedilol 3.125 mg tablet completed carvedilol 3.12 5 MG Oral Tablet ROLANDO ([facility]) doxycycline hyclate 100 MG Oral Tablet doxycycline hyc late 100 mg tablet doxycycline hyclate 100 mg tablet comp leted doxycycline hyclate 100 MG Oral Tablet [facility]O ([facility]) Divalproex Sodium 250 MG Delayed Release Oral Tablet divalproex 250 mg tablet,delayed release divalproex 250 mg tablet,delayed release completed divalproex sodium 250 MG Delayed Release Oral Tablet [facility]O ([facility]) Acetaminophen 325 MG / Hydrocodone Juanita trate 7.5 MG Oral Tablet hydrocodone 7.5 mg-acetaminophen 325 mg tablet hydrocodone 7.5 mg-acetaminophen 325 mg tablet completed acetaminophen 325 MG / hydrocodone bitartrate 7.5 MG Oral Tablet R[facility]O ([facility]) Sumatriptan 25 MG Oral Tablet sumatriptan 25 mg tablet sumat riptan 25 mg tablet completed sumatriptan 25 MG Oral Tablet R[facility]O ([facility]) Acetaminophen 325 MG / Hydrocodone Juanita trate 7.5 MG Oral Tablet hydrocodone 7.5 mg-acetaminophen 325 mg tablet hydrocodone 7.5 mg-acetaminophen 325 mg tablet completed acetaminophen 325 MG / hydrocodone bitartrate 7.5 MG Oral Tablet ROL[facility]O ([facility]) meloxicam 7.5 MG Oral Tablet meloxicam 7.5 mg tablet meloxicam 7 .5 mg tablet completed meloxicam 7.5 MG Oral Tablet [facility]O ([facility]) Ondansetron 4 MG Oral Tablet ondansetron HCl 4 mg tabl et ondansetron HCl 4 mg tablet completed ondansetron 4 M G Oral Tablet [facility] ([facility]) Metformin hydrochloride 1000 MG Oral Tablet metformin 1,000 mg tablet metformin 1,000 mg tablet completed metformin hydrochloride 1000 MG Oral Tablet [facility] ([facility]) Naproxen 250 MG Oral Tablet naproxen 250 mg tablet as needed naproxen 250 mg tablet as needed completed napro xen 250 MG Oral Tablet [facility]O ([facility]) Acetaminophen 325 MG / Hydrocodone Juanita trate 7.5 MG Oral Tablet hydrocodone 7.5 mg-acetaminophen 325 mg tablet hydrocodone 7.5 mg-acetaminophen 325 mg tablet completed acetaminophen 325 MG / hydrocodone bitartrate 7.5 MG Oral Tablet R[facility]O ([facility]) Sumatriptan 25 MG Oral Tablet sumatriptan 25 mg tablet sumat riptan 25 mg tablet completed sumatriptan 25 MG Oral Tablet [facility] ([facility]) Ondansetron 8 MG Disintegrating Oral Tab let ondansetron 8 mg disintegrating tablet ondansetron 8 mg disintegrating tablet completed ondansetron 8 MG Disintegrating Oral Tablet [facility]O ([facility]) Simvastatin 20 MG Oral Tablet simvastatin 20 mg tablet one by mouth once daily simvastatin 20 mg tablet one by mouth once daily completed simvastatin 20 MG Oral Tablet [facility]O ([facility]) Ondansetron 8 MG Oral Tablet ondansetron HCl 8 mg tabl et ondansetron HCl 8 mg tablet completed ondansetron 8 M G Oral Tablet [facility] ([facility]) meloxicam 7.5 MG Oral Tablet meloxicam 7.5 mg tablet meloxicam 7 .5 mg tablet completed meloxicam 7.5 MG Oral Tablet R[facility]ANDO ([facility]) carvedilol 3.125 MG Oral Tablet carvedilol 3.125 mg ta blet carvedilol 3.125 mg tablet completed carvedilol 3.12 5 MG Oral Tablet [facility] ([facility]) Naproxen 250 MG Oral Tablet naproxen 250 mg tablet as needed naproxen 250 mg tablet as needed completed napro xen 250 MG Oral Tablet [facility] ([facility]) Ondansetron 4 MG Oral Tablet ondansetron HCl 4 mg tabl et ondansetron HCl 4 mg tablet completed ondansetron 4 M G Oral Tablet [facility]O ([facility]) Amoxicillin 875 MG / Clavulanate 125 MG Oral Tablet amoxicillin 875 mg-potassium clavulanate 125 mg tablet amoxicillin 875 mg-potassium clavulanate 125 mg tablet completed amoxicillin 875 MG / clavulanate 125 MG Oral Tablet ROLANDO ([facility]) doxycycline hyclate 100 MG Oral Tablet doxycycline hyc late 100 mg tablet doxycycline hyclate 100 mg tablet comp leted doxycycline hyclate 100 MG Oral Tablet [facility] ([facility]) Divalproex Sodium 250 MG Delayed Release Oral Tablet divalproex 250 mg tablet,delayed release divalproex 250 mg tablet,delayed release completed divalproex sodium 250 MG Delayed Release Oral Tablet [facility]O ([facility]) Divalproex Sodium 500 MG Delayed Release Oral Tablet divalproex 500 mg tablet,delayed release divalproex 500 mg tablet,delayed release completed divalproex sodium 500 MG Delayed Release Oral Tablet [facility]O ([facility]) doxycycline hyclate 100 MG Oral Tablet doxycycline hyc late 100 mg tablet doxycycline hyclate 100 mg tablet comp leted doxycycline hyclate 100 MG Oral Tablet [facility] ([facility]) Acetaminophen 325 MG / Hydrocodone Juanita trate 5 MG Oral Tablet hydrocodone 5 mg- acetaminophen 325 mg tablet as needed hydrocodone 5 mg-acetaminophen 325 mg tablet as needed completed acetaminophen 325 MG / hydrocodone bitartrate 5 MG Oral Tablet [facility] ([facility]) Divalproex Sodium 250 MG Delayed Release Oral Tablet divalproex 250 mg tablet,delayed release divalproex 250 mg tablet,delayed release completed divalproex sodium 250 MG Delayed Release Oral Tablet [facility] ([facility]) Ondansetron 8 MG Disintegrating Oral Tab let ondansetron 8 mg disintegrating tablet ondansetron 8 mg disintegrating tablet completed ondansetron 8 MG Disintegrating Oral Tablet [facility]O ([facility]) Ondansetron 8 MG Disintegrating Oral Tab let ondansetron 8 mg disintegrating tablet ondansetron 8 mg disintegrating tablet completed ondansetron 8 MG Disintegrating Oral Tablet [facility] ([facility]) Sumatriptan 25 MG Oral Tablet sumatriptan 25 mg tablet sumat riptan 25 mg tablet completed sumatriptan 25 MG Oral Tablet [facility] ([facility]) Ondansetron 8 MG Oral Tablet ondansetron HCl 8 mg tabl et ondansetron HCl 8 mg tablet completed ondansetron 8 M G Oral Tablet [facility] ([facility]) meloxicam 7.5 MG Oral Tablet meloxicam 7.5 mg tablet meloxicam 7 .5 mg tablet completed meloxicam 7.5 MG Oral Tablet [facility] ([facility]) topiramate 50 MG Oral Tablet topiramate 50 mg tablet a s needed topiramate 50 mg tablet as needed completed topir amate 50 MG Oral Tablet [facility] ([facility]) Sumatriptan 25 MG Oral Tablet sumatriptan 25 mg tablet sumat riptan 25 mg tablet completed sumatriptan 25 MG Oral Tablet [facility] ([facility]) Acetaminophen 325 MG / Hydrocodone Juanita trate 5 MG Oral Tablet hydrocodone 5 mg- acetaminophen 325 mg tablet as needed hydrocodone 5 mg-acetaminophen 325 mg tablet as needed completed acetaminophen 325 MG / hydrocodone bitartrate 5 MG Oral Tablet [facility] ([facility]) meloxicam 7.5 MG Oral Tablet meloxicam 7.5 mg tablet meloxicam 7 .5 mg tablet completed meloxicam 7.5 MG Oral Tablet [facility] ([facility]) Ondansetron 4 MG Oral Tablet ondansetron HCl 4 mg tabl et ondansetron HCl 4 mg tablet completed ondansetron 4 M G Oral Tablet [facility] ([facility]) Ondansetron 8 MG Oral Tablet ondansetron HCl 8 mg tabl et ondansetron HCl 8 mg tablet completed ondansetron 8 M G Oral Tablet [facility] ([facility]) Amoxicillin 875 MG / Clavulanate 125 MG Oral Tablet amoxicillin 875 mg-potassium clavulanate 125 mg tablet amoxicillin 875 mg-potassium clavulanate 125 mg tablet completed amoxicillin 875 MG / clavulanate 125 MG Oral Tablet [facility] ([facility]) Simvastatin 20 MG Oral Tablet simvastatin 20 mg tablet one by mouth once daily simvastatin 20 mg tablet one by mouth once daily completed simvastatin 20 MG Oral Tablet [facility] ([facility]) doxycycline hyclate 100 MG Oral Tablet doxycycline hyc late 100 mg tablet doxycycline hyclate 100 mg tablet comp leted doxycycline hyclate 100 MG Oral Tablet [facility] ([facility]) carvedilol 3.125 MG Oral Tablet carvedilol 3.125 mg ta blet carvedilol 3.125 mg tablet completed carvedilol 3.12 5 MG Oral Tablet [facility] ([facility]) Naproxen 250 MG Oral Tablet naproxen 250 mg tablet as needed naproxen 250 mg tablet as needed completed napro xen 250 MG Oral Tablet [facility] ([facility]) Metformin hydrochloride 1000 MG Oral Tablet metformin 1,000 mg tablet metformin 1,000 mg tablet completed metformin hydrochloride 1000 MG Oral Tablet [facility] ([facility]) Acetaminophen 325 MG / Hydrocodone Juanita trate 7.5 MG Oral Tablet hydrocodone 7.5 mg-acetaminophen 325 mg tablet hydrocodone 7.5 mg-acetaminophen 325 mg tablet completed acetaminophen 325 MG / hydrocodone bitartrate 7.5 MG Oral Tablet [facility] ([facility]) Acetaminophen 325 MG / Hydrocodone Juanita trate 5 MG Oral Tablet hydrocodone 5 mg- acetaminophen 325 mg tablet as needed hydrocodone 5 mg-acetaminophen 325 mg tablet as needed completed acetaminophen 325 MG / hydrocodone bitartrate 5 MG Oral Tablet [facility]O ([facility]) Divalproex Sodium 250 MG Delayed Release Oral Tablet divalproex 250 mg tablet,delayed release divalproex 250 mg tablet,delayed release completed divalproex sodium 250 MG Delayed Release Oral Tablet [facility]O ([facility]) Divalproex Sodium 500 MG Delayed Release Oral Tablet divalproex 500 mg tablet,delayed release divalproex 500 mg tablet,delayed release completed divalproex sodium 500 MG Delayed Release Oral Tablet [facility]O ([facility]) Acetaminophen 325 MG / Hydrocodone Juanita trate 5 MG Oral Tablet hydrocodone 5 mg- acetaminophen 325 mg tablet as needed hydrocodone 5 mg-acetaminophen 325 mg tablet as needed completed acetaminophen 325 MG / hydrocodone bitartrate 5 MG Oral Tablet [facility] ([facility]) carvedilol 3.125 MG Oral Tablet carvedilol 3.125 mg ta blet carvedilol 3.125 mg tablet completed carvedilol 3.12 5 MG Oral Tablet [facility]O ([facility]) Ondansetron 8 MG Disintegrating Oral Tab let ondansetron 8 mg disintegrating tablet ondansetron 8 mg disintegrating tablet completed ondansetron 8 MG Disintegrating Oral Tablet [facility] ([facility]) Divalproex Sodium 250 MG Delayed Release Oral Tablet divalproex 250 mg tablet,delayed release divalproex 250 mg tablet,delayed release completed divalproex sodium 250 MG Delayed Release Oral Tablet [facility] ([facility]) Naproxen 250 MG Oral Tablet naproxen 250 mg tablet as needed naproxen 250 mg tablet as needed completed napro xen 250 MG Oral Tablet [facility] ([facility]) Simvastatin 20 MG Oral Tablet simvastatin 20 mg tablet one by mouth once daily simvastatin 20 mg tablet one by mouth once daily completed simvastatin 20 MG Oral Tablet [facility] ([facility]) Ondansetron 4 MG Oral Tablet ondansetron HCl 4 mg tabl et ondansetron HCl 4 mg tablet completed ondansetron 4 M G Oral Tablet [facility] ([facility]) Amoxicillin 875 MG / Clavulanate 125 MG Oral Tablet amoxicillin 875 mg-potassium clavulanate 125 mg tablet amoxicillin 875 mg-potassium clavulanate 125 mg tablet completed amoxicillin 875 MG / clavulanate 125 MG Oral Tablet [facility]O ([facility]) doxycycline hyclate 100 MG Oral Tablet doxycycline hyc late 100 mg tablet doxycycline hyclate 100 mg tablet comp leted doxycycline hyclate 100 MG Oral Tablet [facility] ([facility]) topiramate 50 MG Oral Tablet topiramate 50 mg tablet a s needed topiramate 50 mg tablet as needed completed topir amate 50 MG Oral Tablet [facility] ([facility]) Divalproex Sodium 500 MG Delayed Release Oral Tablet divalproex 500 mg tablet,delayed release divalproex 500 mg tablet,delayed release completed divalproex sodium 500 MG Delayed Release Oral Tablet [facility]O ([facility]) Amoxicillin 875 MG / Clavulanate 125 MG Oral Tablet amoxicillin 875 mg-potassium clavulanate 125 mg tablet amoxicillin 875 mg-potassium clavulanate 125 mg tablet completed amoxicillin 875 MG / clavulanate 125 MG Oral Tablet [facility]O ([facility]) Ondansetron 8 MG Oral Tablet ondansetron HCl 8 mg tabl et ondansetron HCl 8 mg tablet completed ondansetron 8 M G Oral Tablet [facility] ([facility]) topiramate 50 MG Oral Tablet topiramate 50 mg tablet a s needed topiramate 50 mg tablet as needed completed topir amate 50 MG Oral Tablet [facility] ([facility]) Sumatriptan 25 MG Oral Tablet sumatriptan 25 mg tablet sumat riptan 25 mg tablet completed sumatriptan 25 MG Oral Tablet [facility] ([facility]) Naproxen 250 MG Oral Tablet naproxen 250 mg tablet as needed naproxen 250 mg tablet as needed completed napro xen 250 MG Oral Tablet [facility] ([facility]) Acetaminophen 325 MG / Hydrocodone Juanita trate 5 MG Oral Tablet hydrocodone 5 mg- acetaminophen 325 mg tablet as needed hydrocodone 5 mg-acetaminophen 325 mg tablet as needed completed acetaminophen 325 MG / hydrocodone bitartrate 5 MG Oral Tablet [facility] ([facility]) 0.5 ML pneumococcal capsular polysacchar triston type [...] Prefilled Syringe [Pneumovax 23] [facility]O ([facility]) Simvastatin 20 MG Oral Tablet simvastatin 20 mg tablet one by mouth once daily simvastatin 20 mg tablet one by mouth once daily completed simvastatin 20 MG Oral Tablet [facility] ([facility]) Ondansetron 8 MG Disintegrating Oral Tab let ondansetron 8 mg disintegrating tablet ondansetron 8 mg disintegrating tablet completed ondansetron 8 MG Disintegrating Oral Tablet [facility] ([facility]) Amoxicillin 875 MG / Clavulanate 125 MG Oral Tablet amoxicillin 875 mg-potassium clavulanate 125 mg tablet amoxicillin 875 mg-potassium clavulanate 125 mg tablet completed amoxicillin 875 MG / clavulanate 125 MG Oral Tablet [facility] ([facility]) Divalproex Sodium 500 MG Delayed Release Oral Tablet divalproex 500 mg tablet,delayed release divalproex 500 mg tablet,delayed release completed divalproex sodium 500 MG Delayed Release Oral Tablet [facility] ([facility]) Acetaminophen 325 MG / Hydrocodone Juanita trate 7.5 MG Oral Tablet hydrocodone 7.5 mg-acetaminophen 325 mg tablet hydrocodone 7.5 mg-acetaminophen 325 mg tablet completed acetaminophen 325 MG / hydrocodone bitartrate 7.5 MG Oral Tablet [facility] ([facility]) Divalproex Sodium 500 MG Delayed Release Oral Tablet divalproex 500 mg tablet,delayed release divalproex 500 mg tablet,delayed release completed divalproex sodium 500 MG Delayed Release Oral Tablet [facility] ([facility]) Metformin hydrochloride 1000 MG Oral Tablet metformin 1,000 mg tablet metformin 1,000 mg tablet completed metformin hydrochloride 1000 MG Oral Tablet [facility] ([facility]) Naproxen 250 MG Oral Tablet naproxen 250 mg tablet as needed naproxen 250 mg tablet as needed completed napro xen 250 MG Oral Tablet [facility] ([facility]) Acetaminophen 325 MG / Hydrocodone Juanita trate 5 MG Oral Tablet hydrocodone 5 mg- acetaminophen 325 mg tablet as needed hydrocodone 5 mg-acetaminophen 325 mg tablet as needed completed acetaminophen 325 MG / hydrocodone bitartrate 5 MG Oral Tablet [facility] ([facility]) meloxicam 7.5 MG Oral Tablet meloxicam 7.5 mg tablet meloxicam 7 .5 mg tablet completed meloxicam 7.5 MG Oral Tablet [facility] ([facility]) 0.5 ML pneumococcal capsular polysacchar triston type [...] Prefilled Syringe [Pneumovax 23] [facility] [facility] carvedilol 3.125 MG Oral Tablet carvedilol 3.125 mg ta blet carvedilol 3.125 mg tablet completed carvedilol 3.12 5 MG Oral Tablet [facility] ([facility]) Sumatriptan 25 MG Oral Tablet sumatriptan 25 mg tablet sumat riptan 25 mg tablet completed sumatriptan 25 MG Oral Tablet [facility] ([facility]) 0.5 ML pneumococcal capsular polysacchar triston type [...] Prefilled Syringe [Pneumovax 23] [facility] ([facility]) topiramate 50 MG Oral Tablet topiramate 50 mg tablet a s needed topiramate 50 mg tablet as needed completed topir amate 50 MG Oral Tablet [facility] ([facility]) Ondansetron 8 MG Oral Tablet ondansetron HCl 8 mg tabl et ondansetron HCl 8 mg tablet completed ondansetron 8 M G Oral Tablet [facility] ([facility]) topiramate 50 MG Oral Tablet topiramate 50 mg tablet a s needed topiramate 50 mg tablet as needed completed topir amate 50 MG Oral Tablet [facility] ([facility]) Simvastatin 20 MG Oral Tablet simvastatin 20 mg tablet one by mouth once daily simvastatin 20 mg tablet one by mouth once daily completed simvastatin 20 MG Oral Tablet [facility] ([facility]) Ondansetron 4 MG Oral Tablet ondansetron HCl 4 mg tabl et ondansetron HCl 4 mg tablet completed ondansetron 4 M G Oral Tablet [facility] ([facility]) Ondansetron 4 MG Oral Tablet ondansetron HCl 4 mg tabl et ondansetron HCl 4 mg tablet completed ondansetron 4 M G Oral Tablet [facility] ([facility]) topiramate 50 MG Oral Tablet topiramate 50 mg tablet a s needed topiramate 50 mg tablet as needed completed topir amate 50 MG Oral Tablet [facility] ([facility]) Acetaminophen 325 MG / Hydrocodone Juanita trate 7.5 MG Oral Tablet hydrocodone 7.5 mg-acetaminophen 325 mg tablet hydrocodone 7.5 mg-acetaminophen 325 mg tablet completed acetaminophen 325 MG / hydrocodone bitartrate 7.5 MG Oral Tablet [facility] ([facility]) Divalproex Sodium 250 MG Delayed Release Oral Tablet divalproex 250 mg tablet,delayed release divalproex 250 mg tablet,delayed release completed divalproex sodium 250 MG Delayed Release Oral Tablet [facility] ([facility]) Amoxicillin 875 MG / Clavulanate 125 MG Oral Tablet amoxicillin 875 mg-potassium clavulanate 125 mg tablet amoxicillin 875 mg-potassium clavulanate 125 mg tablet completed amoxicillin 875 MG / clavulanate 125 MG Oral Tablet [facility] ([facility]) doxycycline hyclate 100 MG Oral Tablet doxycycline hyc late 100 mg tablet doxycycline hyclate 100 mg tablet comp leted doxycycline hyclate 100 MG Oral Tablet [facility] ([facility]) Ondansetron 8 MG Disintegrating Oral Tab let ondansetron 8 mg disintegrating tablet ondansetron 8 mg disintegrating tablet completed ondansetron 8 MG Disintegrating Oral Tablet [facility] ([facility]) carvedilol 3.125 MG Oral Tablet carvedilol 3.125 mg ta blet carvedilol 3.125 mg tablet completed carvedilol 3.12 5 MG Oral Tablet [facility] ([facility]) meloxicam 7.5 MG Oral Tablet meloxicam 7.5 mg tablet meloxicam 7 .5 mg tablet completed meloxicam 7.5 MG Oral Tablet [facility] ([facility]) Insurance Providers Payer name Policy type / Coverage type Policy ID Covered green party ID Covered green party's relationship to lyles Policy Lyles Plan Information STATE INSURANCE FUND [id number] SP [id number] [facility] [id number] SP [id number] BS EMPIRE RICK DIV [id number] SP [id number] [facility] INSURANCE FUND [id number] S [id number] EMPIRE ([facility]) O [id number] S [id number] [facility] O [id number] S [id number] EMPIRE PLAN CLAIMS 1 [id number] 1 [id number] [facility] [id number] Self [id number] [facility] [place] [employer] [id number] Self [id number] [facility] [place] Commercial [id number] Self [id number] BS EMPIRE RICK DIV [id number] SP [id number] [employer] [id number] Self [id number] [employer] [facility] [place] [employer] [id number] Self [id number] [employer] [facility] [place] [employer] [id number] Self [id number] Nash [facility] Health Maintenance Organization (HMO) [id number] Self [id number] Nash Plan F [id number] SELF [id number] Nash [facility] Health Maintenance Organization (HMO) [id number] Self [id number] [employer] [place] Commercial [id number] Self [id number] [facility]ANCE FUND [id number] SP [id number] [employer] [id number] Self [id number] Nash [facility] Health Maintenance Organization (HMO) [id number] Self [id number] [employer] [id number] Self [id number] [employer] [id number] Self [id number] [employer] [id number] Self [id number] [employer] [id number] Self [id number] [facility] Health Maintenance Organization (HMO) [id number] Self [id number] [employer] [id number] Self [id number] [employer] [id number] Self [id number] [employer] [id number] Self [id number] [employer] [place] [employer] [id number] Self [id number] [employer] [place] [employer] [id number] Self [id number] [facility] Health Maintenance Organization (HMO) [id number] Self [id number] [employer] [id number] Self [id number] [employer] [facility] [place] [employer] [id number] Self [id number] [employer] [facility] [place] [employer] [id number] Self [id number] [employer] [place] [employer] [id number] Self [id number] [facility] [id number] SP [id number] BCBS EMPIRE RICK DIV [id number] SP [id number] [facility] [place] [employer] [id number] Self [id number] [employer] [facility] [place] [employer] [id number] Self [id number] [employer] [place] [employer] [id number] Self [id number] [facility] Health Maintenance Organization (HMO) [id number] Self [id number] [employer] [id number] Self [id number] [employer] [place] [employer] [id number] Self [id number] UNITED [facility]C[facility] O [id number] S [id number] STATE INSURANCE FUND O [id number] S [id number] STATE INSURANCE FUND [id number] SP [id number] [facility] Health Maintenance Organization (HMO) [id number] Self [id number] [employer] [place] [employer] [id number] Self [id number] [employer] [id number] Self [id number] [employer] [place] [employer] [id number] Self [id number] [employer] [place] [employer] [id number] Self [id number] [employer] [id number] Self [id number] [facility] Health Maintenance Organization (HMO) [id number] Self [id number] [facility] Commercial [id number] Self [id number] [employer] [place] [employer] [id number] Self [id number] [employer] [id number] Self [id number] Nash [facility] Health Maintenance Organization (HMO) [id number] Self [id number] [employer] [id number] Self [id number] [facility] Health Maintenance Organization (HMO) Self [employer] [facility] Commercial Self [employer] Self Nash ([place], [place]) Medicare Primary Self Nash BCBS - [place] Commercial Self UNITED HEALTHCARE [id number] SP [id number] UNITED HEALTHCARE [id number] SP [id number] BCBS EMPIRE RICK DIV [id number] SP [id number] [employer]CARE [id number] SP [id number] BCBS EMPIRE RICK DIV [id number] SP [id number] BC BLUE CARD 1 [id number] SELF PAY 2 UNAVAILABLE 1 UNAVAILA BLE BCBS EMPIRE RICK DIV [id number] SP [id number] [facility] [id number] SP [id number] Surgeries/Procedures Procedure Description Date Indications Data Source(s) Therapeutic, Prophylactic Or Diagnostic Injection Subq/Im 05/22/2020 12:00:00 AM EDT [facility] ([facility]) MRI SPINAL CANAL CERVICAL W/O CONTRAST MATRL 0 12:00:00 AM EDT [facility] ([facility] ) MRI SPINAL CANAL CERVICAL W/O CONTRAST MATRL 0 12:00:00 AM EDT [facility] ([facility] ) MRI SPINAL CANAL LUMBAR W/O CONTRAST MATERIAL 04/25/20 20 12:00:00 AM EDT [facility] ([facility] ) MRI SPINAL CANAL LUMBAR W/O CONTRAST MATERIAL 04/25/20 20 12:00:00 AM EDT [facility] ([facility] ) Therapeutic, Prophylactic Or Diagnostic Injection Subq/Im 04/09/2020 12:00:00 AM EDT [facility] ([facility]) Diabetic Foot Exam 02/04/2020 12:00:00 AM EDT [facility] ([facility]) Therapeutic, Prophylactic Or Diagnostic Injection Subq/Im 10/05/2019 12:00:00 AM EST [facility] ([facility]) Results ID Date Data Source [id number] 09/10/2020 08:56:00 AM EST [facility] ([facility]) Name Value Range Interpretation Code Description Data Heena rce(s) Supporting Document(s) Glucose [Mass/volume] in Serum or Plasma 140 [facility] ([facility]) ID Date Data Source [id number] 09/08/2020 12:00:00 AM EST [facility] ([facility]) Name Value Range Interpretation Code Description Data Heena rce(s) Supporting Document(s) SARS-CoV-2 (COVID-19) RNA [Presence] in Respiratory specimen by ALEKSANDR with probe detection negative negative normal Sars-cov-2 [facility] ([facility]) ID Date Data Source [id number] 09/08/2020 12:00:00 AM EST [facility] ([facility]) Name Value Range Interpretation Code Description Data Heena rce(s) Supporting Document(s) ID Date Data Source [id number] 09/08/2020 12:00:00 AM EST [facility] Name Value Range Interpretation Code Description Data Heena rce(s) Supporting Document(s) SARS-CoV-2 NEGATIVE [facility] This lab was ordered by [facility]-C[facility] and reported by [facility]. ID Date Data Source [id number] 08/13/2020 12:00:00 AM EST [facility] ([facility]) Name Value Range Interpretation Code Description Data Heena rce(s) Supporting Document(s) SARS-CoV-2 (COVID-19) RNA [Presence] in Respiratory specimen by ALEKSANDR with probe detection negative negative normal Sars-cov-2 [facility] ID Date Data Source [id number] 08/13/2020 12:00:00 AM EST [facility] ([facility]) Name Value Range Interpretation Code Description Data Heena rce(s) Supporting Document(s) ID Date Data Source [id number] 08/13/2020 12:00:00 AM EST [facility] ([facility]) Name Value Range Interpretation Code Description Data Heena rce(s) Supporting Document(s) SARS-CoV-2 (COVID-19) RNA [Presence] in Respiratory specimen by ALEKSANDR with probe detection negative negative normal Sars-cov-2 [facility] ([facility]) ID Date Data Source [id number] 08/13/2020 12:00:00 AM EST [facility] ([facility]) Name Value Range Interpretation Code Description Data Heena rce(s) Supporting Document(s) ID Date Data Source [id number] 08/13/2020 12:00:00 AM EST [facility] ([facility]) Name Value Range Interpretation Code Description Data Ehena rce(s) Supporting Document(s) SARS-CoV-2 (COVID-19) RNA [Presence] in Respiratory specimen by ALEKSANDR with probe detection negative negative normal Sars-cov-2 [facility] ([facility]) ID Date Data Source [id number] 08/13/2020 12:00:00 AM EST [facility] ([facility]) Name Value Range Interpretation Code Description Data Heena rce(s) Supporting Document(s) ID Date Data Source [id number] 08/13/2020 12:00:00 AM EST [facility] Name Value Range Interpretation Code Description Data Heena rce(s) Supporting Document(s) SARS-CoV-2 [facility] This lab was ordered by [facility] and reported by [facility]. ID Date Data Source [id number] 06/16/2020 12:00:00 AM EDT [facility] ([facility]) Name Value Range Interpretation Code Description Data Heena rce(s) Supporting Document(s) SARS-CoV-2 (COVID-19) RNA [Presence] in Respiratory specimen by ALEKSANDR with probe detection negative negative normal Sars-cov-2 [facility] ([facility]) ID Date Data Source [id number] 06/16/2020 12:00:00 AM EDT [facility] ([facility]) Name Value Range Interpretation Code Description Data Heena rce(s) Supporting Document(s) ID Date Data Source [id number] 06/16/2020 12:00:00 AM EDT [facility] ([facility]) Name Value Range Interpretation Code Description Data Heena rce(s) Supporting Document(s) SARS-CoV-2 (COVID-19) RNA [Presence] in Respiratory specimen by ALEKSANDR with probe detection negative negative normal Sars-cov-2 [facility] ([facility]) ID Date Data Source [id number] 06/16/2020 12:00:00 AM EDT [facility] ([facility]) Name Value Range Interpretation Code Description Data Heena rce(s) Supporting Document(s) ID Date Data Source [id number] 06/16/2020 12:00:00 AM EDT [facility] ([facility]) Name Value Range Interpretation Code Description Data Henea rce(s) Supporting Document(s) SARS-CoV-2 (COVID-19) RNA [Presence] in Respiratory specimen by ALEKSANDR with probe detection negative negative normal Sars-cov-2 [facility] ID Date Data Source [id number] 06/16/2020 12:00:00 AM EDT [facility] ([facility]) Name Value Range Interpretation Code Description Data Heena rce(s) Supporting Document(s) ID Date Data Source [id number] 06/16/2020 12:00:00 AM EDT [facility] ([facility]) Name Value Range Interpretation Code Description Data Heena rce(s) Supporting Document(s) SARS-CoV-2 (COVID-19) RNA [Presence] in Respiratory specimen by ALEKSANDR with probe detection negative negative normal Sars-cov-2 [facility] ([facility]) ID Date Data Source [id number] 06/16/2020 12:00:00 AM EDT [facility] ([facility]) Name Value Range Interpretation Code Description Data Heena rce(s) Supporting Document(s) ID Date Data Source [id number] 06/16/2020 12:00:00 AM EDT [facility] ([facility]) Name Value Range Interpretation Code Description Data Heena rce(s) Supporting Document(s) SARS-CoV-2 (COVID-19) RNA [Presence] in Respiratory specimen by ALEKSANDR with probe detection negative negative normal Sars-cov-2 [facility] ([facility]) ID Date Data Source [id number] 06/16/2020 12:00:00 AM EDT [facility] ([facility]) Name Value Range Interpretation Code Description Data Heena rce(s) Supporting Document(s) ID Date Data Source [id number] 06/16/2020 12:00:00 AM EDT [facility] ([facility]) Name Value Range Interpretation Code Description Data Heena rce(s) Supporting Document(s) SARS coronavirus 2 RNA [Presence] in Res piratory specimen by ALEKSANDR with probe detection negative negative normal Sars-cov-2 [facility] ([facility]) ID Date Data Source [id number] 06/16/2020 12:00:00 AM EDT [facility] ([facility]) Name Value Range Interpretation Code Description Data Heena rce(s) Supporting Document(s) ID Date Data Source [id number] 06/16/2020 12:00:00 AM EDT [facility] ([facility]) Name Value Range Interpretation Code Description Data Heena rce(s) Supporting Document(s) SARS coronavirus 2 RNA [Presence] in Res piratory specimen by ALEKSANDR with probe detection negative negative normal Sars-cov-2 [facility] ID Date Data Source [id number] 06/16/2020 12:00:00 AM EDT [facility] ([facility]) Name Value Range Interpretation Code Description Data Heena rce(s) Supporting Document(s) ID Date Data Source [id number] 06/16/2020 12:00:00 AM EDT [facility] Name Value Range Interpretation Code Description Data Heena rce(s) Supporting Document(s) SARS-CoV-2 [facility] This lab was ordered by [facility] and reported by [facility]. ID Date Data Source [id number] 06/02/2020 12:00:00 AM EDT [facility] ([facility]) Name Value Range Interpretation Code Description Data Heena rce(s) Supporting Document(s) ID Date Data Source [id number] 06/02/2020 12:00:00 AM EDT [facility] ([facility]) Name Value Range Interpretation Code Description Data Heena rce(s) Supporting Document(s) ID Date Data Source [id number] 06/02/2020 12:00:00 AM EDT [facility] ([facility]) Name Value Range Interpretation Code Description Data Heena rce(s) Supporting Document(s) ID Date Data Source [id number] 06/02/2020 12:00:00 AM EDT [facility] ([facility]) Name Value Range Interpretation Code Description Data Heena rce(s) Supporting Document(s) ID Date Data Source [id number] 06/02/2020 12:00:00 AM EDT [facility] ([facility]) Name Value Range Interpretation Code Description Data Heena rce(s) Supporting Document(s) ID Date Data Source [id number] 06/02/2020 12:00:00 AM EDT [facility] ([facility]) Name Value Range Interpretation Code Description Data Heena rce(s) Supporting Document(s) ID Date Data Source [id number] 06/02/2020 12:00:00 AM EDT [facility] ([facility]) Name Value Range Interpretation Code Description Data Heena rce(s) Supporting Document(s) ID Date Data Source [id number] 06/02/2020 12:00:00 AM EDT [facility] ([facility]) Name Value Range Interpretation Code Description Data Heena rce(s) Supporting Document(s) ID Date Data Source [id number] 06/02/2020 12:00:00 AM EDT [facility] ([facility]) Name Value Range Interpretation Code Description Data Heena rce(s) Supporting Document(s) ID Date Data Source [id number] 06/02/2020 12:00:00 AM EDT [facility] Name Value Range Interpretation Code Description Data Heena rce(s) Supporting Document(s) SARS-CoV-2 [facility] This lab was ordered by [facility] and reported by [employer]. ID Date Data Source [id number] 05/16/2020 03:55:00 PM EDT [facility] ([facility]) Name Value Range Interpretation Code Description Data Heena rce(s) Supporting Document(s) Hemoglobin A1c/Hemoglobin.total in Blood 10.0 [facility] ([facility]) Glucose [Mass/volume] in Serum or Plasma 532 [facility] ([facility]) Procedure Social History Code Duration Value Status Description Data Source(s ) Smoking 09/10/2020 12:00:00 AM EST Patient has never smoked co mpleted Patient has never smoked [facility] ([facility] ) Smoking 06/09/2020 12:00:00 AM EDT Patient has never smoked co mpleted Patient has never smoked [facility] ([facility]) Vital Signs ID Date Data Source [id number] Name Value Range Interpretation Code Description Data Source(s) Systolic blood pressure 127 mm[Hg] 127 mm[Hg] A THENA ([facility]) Body height 71 [in_i] 71 [in_i] [facility] ([facility]) Diastolic blood pressure 84 mm[Hg] 84 mm[Hg] [facility] ([facility]) Oxygen saturation in Arterial blood by Pulse oximetry 98 % 98 % [facility] ([facility] Body mass index (BMI) [Ratio] 31.9 kg/m2 31.9 k g/m2 [facility] ([facility] Body weight 217.50 [lb_av] 217.50 [lb_av] MEDEN T ([facility] Body height 69.25 [in_i] 69.25 [in_i] [facility] ([facility]) 5'9.25" Body temperature 97.2 [degF] 97.2 [degF] [facility] ([facility] Heart rate 89 /min 89 /min [facility] ([facility] Diastolic blood pressure 84 mm[Hg] 84 mm[Hg] [facility] ([facility]) Systolic blood pressure 126 mm[Hg] 126 mm[Hg] M EDENT ([facility]) Systolic blood pressure 128 mm[Hg] 128 mm[Hg] A THENA ([facility]) Body height 71 [in_i] 71 [in_i] [facility] ([facility]) Diastolic blood pressure 83 mm[Hg] 83 mm[Hg] [facility] ([facility]) Systolic blood pressure 128 mm[Hg] 128 mm[Hg] A THENA ([facility]) Body height 71 [in_i] 71 [in_i] [facility] ([facility]) Diastolic blood pressure 83 mm[Hg] 83 mm[Hg] [facility] ([facility]) Systolic blood pressure 128 mm[Hg] 128 mm[Hg] A THENA ([facility]) Body height 71 [in_i] 71 [in_i] [facility] Diastolic blood pressure 83 mm[Hg] 83 mm[Hg] [facility] ([facility]) Systolic blood pressure 128 mm[Hg] 128 mm[Hg] A THENA ([facility]) Body height 71 [in_i] 71 [in_i] [facility] ([facility]) Diastolic blood pressure 83 mm[Hg] 83 mm[Hg] [facility] ([facility]) Systolic blood pressure 128 mm[Hg] 128 mm[Hg] A THENA ([facility]) Body height 71 [in_i] 71 [in_i] [facility] ([facility]) Diastolic blood pressure 83 mm[Hg] 83 mm[Hg] [facility] ([facility]) Systolic blood pressure 119 mm[Hg] 119 mm[Hg] A THENA ([facility]) Body height 71 [in_i] 71 [in_i] [facility] ([facility]) Diastolic blood pressure 74 mm[Hg] 74 mm[Hg] [facility] ([facility]) Systolic blood pressure 119 mm[Hg] 119 mm[Hg] A THENA ([facility]) Body height 71 [in_i] 71 [in_i] [facility] ([facility]) Diastolic blood pressure 74 mm[Hg] 74 mm[Hg] [facility] ([facility]) Systolic blood pressure 119 mm[Hg] 119 mm[Hg] A THENA ([facility]) Body height 71 [in_i] 71 [in_i] [facility] ([facility]) Diastolic blood pressure 74 mm[Hg] 74 mm[Hg] [facility] ([facility]) Systolic blood pressure 119 mm[Hg] 119 mm[Hg] A THENA ([facility]) Body height 71 [in_i] 71 [in_i] [facility] ([facility]) Diastolic blood pressure 74 mm[Hg] 74 mm[Hg] [facility] ([facility]) Systolic blood pressure 119 mm[Hg] 119 mm[Hg] A THENA ([facility]) Body height 71 [in_i] 71 [in_i] [facility] ([facility]) Diastolic blood pressure 74 mm[Hg] 74 mm[Hg] [facility] ([facility]) Systolic blood pressure 119 mm[Hg] 119 mm[Hg] A THENA ([facility]) Body height 71 [in_i] 71 [in_i] ROLANDO ([facility]) Diastolic blood pressure 74 mm[Hg] 74 mm[Hg] ROLANDO ([facility]) Diastolic blood pressure 82 mm[Hg] 82 mm[Hg] MEDENT ([facility], [facility]) manual Systolic blood pressure 170 mm[Hg] 170 mm[Hg] M EDENT ([facility], [facility]) manual Body mass index (BMI) [Ratio] 30.7 kg/m2 30.7 k g/m2 MEDENT ([facility], [facility]) Body height 71 [in_i] 71 [in_i] MEDENT ([facility], [facility]) 5'11" Body weight 220.00 [lb_av] 220.00 [lb_av] MEDEN T ([facility], [facility]) Body temperature 98.1 [degF] 98.1 [degF] MEDENT ([facility], [facility]) Oxygen saturation in Arterial blood by Pulse oximetry 98 % 98 % MEDENT ([facility], [facility]) Heart rate 103 /min 103 /min MEDENT ([facility], [facility]) Diastolic blood pressure 93 mm[Hg] 93 mm[Hg] MEDENT ([facility], [facility]) Systolic blood pressure 172 mm[Hg] 172 mm[Hg] M EDENT ([facility], [facility]) Systolic blood pressure 166 mm[Hg] 166 mm[Hg] A THENA ([facility]) Body height 71 [in_i] 71 [in_i] ROLANDO ([facility]) Diastolic blood pressure 77 mm[Hg] 77 mm[Hg] ROLANDO ([facility]) Systolic blood pressure 166 mm[Hg] 166 mm[Hg] A THENA ([facility]) Body height 71 [in_i] 71 [in_i] ROLANDO ([facility]) Diastolic blood pressure 77 mm[Hg] 77 mm[Hg] ROLANDO ([facility]) Systolic blood pressure 166 mm[Hg] 166 mm[Hg] A THENA ([facility]) Body height 71 [in_i] 71 [in_i] ROLANDO ([facility]) Diastolic blood pressure 77 mm[Hg] 77 mm[Hg] ROLANDO ([facility]) Systolic blood pressure 166 mm[Hg] 166 mm[Hg] A THENA ([facility]) Body height 71 [in_i] 71 [in_i] ROLANDO ([facility]) Diastolic blood pressure 77 mm[Hg] 77 mm[Hg] ROLANDO ([facility]) Systolic blood pressure 166 mm[Hg] 166 mm[Hg] A THENA ([facility]) Body height 71 [in_i] 71 [in_i] ROLANDO ([facility]) Diastolic blood pressure 77 mm[Hg] 77 mm[Hg] ROLANDO ([facility]) Systolic blood pressure 166 mm[Hg] 166 mm[Hg] A THENA ([facility]) Body height 71 [in_i] 71 [in_i] ROLANDO ([facility]) Diastolic blood pressure 77 mm[Hg] 77 mm[Hg] ROLANDO ([facility]) Systolic blood pressure 166 mm[Hg] 166 mm[Hg] A THENA ([facility]) Body height 71 [in_i] 71 [in_i] ROLANDO ([facility]) Diastolic blood pressure 77 mm[Hg] 77 mm[Hg] ROLANDO ([facility]) Systolic blood pressure 166 mm[Hg] 166 mm[Hg] A THENA ([facility]) Body height 71 [in_i] 71 [in_i] ROLANDO ([facility]) Diastolic blood pressure 77 mm[Hg] 77 mm[Hg] ROLANDO ([facility]) Systolic blood pressure 166 mm[Hg] 166 mm[Hg] A THENA ([facility]) Body height 71 [in_i] 71 [in_i] ROLANDO ([facility]) Diastolic blood pressure 77 mm[Hg] 77 mm[Hg] ROLANDO ([facility]) Systolic blood pressure 166 mm[Hg] 166 mm[Hg] A THENA ([facility]) Body height 71 [in_i] 71 [in_i] ROLANDO ([facility]) Diastolic blood pressure 77 mm[Hg] 77 mm[Hg] ROLANDO ([facility]) Systolic blood pressure 166 mm[Hg] 166 mm[Hg] A THENA ([facility]) Body height 71 [in_i] 71 [in_i] ROLANDO ([facility]) Diastolic blood pressure 77 mm[Hg] 77 mm[Hg] ROLANDO ([facility]) Body mass index (BMI) [Ratio] 30.7 kg/m2 30.7 k g/m2 MEDENT ([facility], [facility]) Body height 71 [in_i] 71 [in_i] MEDENT ([facility], [facility]) 5'11" Body weight 220.00 [lb_av] 220.00 [lb_av] MEDEN T ([facility], [facility]) Body temperature 97.1 [degF] 97.1 [degF] MEDENT ([facility], [facility]) Oxygen saturation in Arterial blood by Pulse oximetry 96 % 96 % MEDENT ([facility], [facility]) Respiratory rate 14 /min 14 /min MEDENT ( [facility], [facility]) Heart rate 112 /min 112 /min MEDENT ([facility], [facility]) Diastolic blood pressure 77 mm[Hg] 77 mm[Hg] MEDENT ([facility], [facility]) Systolic blood pressure 133 mm[Hg] 133 mm[Hg] M EDENT ([facility], [facility]) Oxygen saturation in Arterial blood by Pulse oximetry 99 % 99 % MEDENT ([facility] ) Body mass index (BMI) [Ratio] 31.7 kg/m2 31.7 k g/m2 MEDENT ([facility] ) Body weight 216.38 [lb_av] 216.38 [lb_av] MEDEN T ([facility]) Body height 69.25 [in_i] 69.25 [in_i] MEDENT ([facility]) 5'9.25" Heart rate 91 /min 91 /min MEDENT ([facility] ) Diastolic blood pressure 86 mm[Hg] 86 mm[Hg] MEDENT ([facility]) Systolic blood pressure 142 mm[Hg] 142 mm[Hg] M EDENT ([facility] ) Body mass index (BMI) [Ratio] 30.7 kg/m2 30.7 k g/m2 MEDENT ([facility], [facility]) Body height 71 [in_i] 71 [in_i] MEDENT ([facility], [facility]) 5'11" Body weight 220.00 [lb_av] 220.00 [lb_av] MEDEN T ([facility], [facility]) Body temperature 98.6 [degF] 98.6 [degF] MEDENT ([facility], [facility]) Oxygen saturation in Arterial blood by Pulse oximetry 95 % 95 % MEDENT ([facility], [facility]) Respiratory rate 17 /min 17 /min MEDENT ( [facility]) Heart rate 111 /min 111 /min [facility]) Diastolic blood pressure 68 mm[Hg] 68 mm[Hg] MEDENT ([facility], [facility]) Systolic blood pressure 118 mm[Hg] 118 mm[facility]] [facility] Body mass index (BMI) [Ratio] 30.4 kg/m2 30.4 k g/m2 MEDENT ([facility], [facility]) Body height 71 [in_i] 71 [in_i] MEDENT ([facility], [facility]) 5'11" Body weight 218.00 [lb_av] 218.00 [lb_av] MEDEN T ([facility], [facility]) Body temperature 98.8 [degF] 98.8 [degF] MEDENT ([facility], [facility]) Oxygen saturation in Arterial blood by Pulse oximetry 98 % 98 % MEDENT ([facility], [facility]) Heart rate 110 /min 110 /min MEDENT ([facility], [facility]) Diastolic blood pressure 76 mm[Hg] 76 mm[Hg] MEDENT ([facility], [facility]) did not take meds Systolic blood pressure 143 mm[Hg] 143 mm[Hg] M EDENT ([facility], [facility]) did not take meds Oxygen saturation in Arterial blood by Pulse oximetry 97 % 97 % MEDENT ([facility] ) Body mass index (BMI) [Ratio] 32.1 kg/m2 32.1 k g/m2 MEDENT ([facility] ) Body weight 219.00 [lb_av] 219.00 [lb_av] MEDEN T ([facility] ) Body height 69.25 [in_i] 69.25 [in_i] MEDENT ([facility] ) 5'9.25" Heart rate 93 /min 93 /min MEDENT ([facility] ) Diastolic blood pressure 78 mm[Hg] 78 mm[Hg] MEDENT ([facility] ) Systolic blood pressure 146 mm[Hg] 146 mm[Hg] M EDENT ([facility] ) Body mass index (BMI) [Ratio] 30.7 kg/m2 30.7 k g/m2 MEDENT ([facility], [facility]) Body height 71 [in_i] 71 [in_i] MEDENT ([facility], [facility]) 5'11" Body weight 220.00 [lb_av] 220.00 [lb_av] MEDEN T ([facility], [facility]) Body temperature 98.2 [degF] 98.2 [degF] MEDENT ([facility], [facility]) Oxygen saturation in Arterial blood by Pulse oximetry 96 % 96 % MEDENT ([facility], [facility]) Respiratory rate 16 /min 16 /min MEDENT ( [facility], [facility]) Heart rate 101 /min 101 /min MEDENT ([facility], [facility]) Diastolic blood pressure 82 mm[Hg] 82 mm[Hg] MEDENT ([facility], [facility]) Systolic blood pressure 119 mm[Hg] 119 mm[Hg] M EDENT ([facility], [facility]) Respiratory rate 16 /min 16 /min MEDENT ( [facility] ) Heart rate 76 /min 76 /min MEDENT ([facility], ) Diastolic blood pressure 70 mm[Hg] 70 mm[Hg] MEDENT ([facility], ) Systolic blood pressure 110 mm[Hg] 110 mm[Hg] M EDENT ([facility], ) Respiratory rate 20 /min 20 /min MEDENT ( [facility], ) Heart rate 112 /min 112 /min MEDENT ([facility], ) Diastolic blood pressure 70 mm[Hg] 70 mm[Hg] MEDENT ([facility], ) Systolic blood pressure 110 mm[Hg] 110 mm[Hg] M EDENT ([facility], ) Patient Treatment Plan of Care Planned Activity Planned Date Details Description Data Source (s) topiramate 50 MG Oral Tablet ROLANDO ([facility]) Sumatriptan 25 MG Oral Tablet ROLANDO ([facility]) Simvastatin 20 MG Oral Tablet ROLANDO ([facility]) 0.5 ML pneumococcal capsular polysacchar triston type 1 vaccine 0.05 MG/ML / pneumococcal capsular polysaccharide type 10A vaccine 0.05 MG/ML / pneumococcal capsular polysaccharide type 11A vaccine 0.05 MG/ML / pneumococcal capsular polysaccharide type 12F vac ATHE NA ([facility]) Ondansetron 8 MG Oral Tablet ROLANDO ([facility]) Ondansetron 4 MG Oral Tablet ROLANDO ([facility]) Ondansetron 8 MG Disintegrating Oral Tablet ROLANDO ([facility]) Naproxen 250 MG Oral Tablet ROLANDO ([facility]) meloxicam 7.5 MG Oral Tablet ROLANDO ([facility]) Acetaminophen 325 MG / Hydrocodone Bitartrate 7.5 MG Oral Tablet ROLANDO ([facility]) Acetaminophen 325 MG / Hydrocodone Bitartrate 5 MG Oral Tablet ROLANDO ([facility]) doxycycline hyclate 100 MG Oral Tablet ROLANDO ([facility]) Divalproex Sodium 500 MG Delayed Release Oral Tablet ROLANDO ([facility]) Divalproex Sodium 250 MG Delayed Release Oral Tablet ROLANDO ([facility]) carvedilol 3.125 MG Oral Tablet ROLANDO ([facility]) Amoxicillin 875 MG / Clavulanate 125 MG Oral Tablet ROLANDO ([facility]) topiramate 50 MG Oral Tablet ROLANDO ([facility]) Sumatriptan 25 MG Oral Tablet ROLANDO ([facility]) Simvastatin 20 MG Oral Tablet ROLANDO ([facility]) 0.5 ML pneumococcal capsular polysacchar triston type 1 vaccine 0.05 MG/ML / pneumococcal capsular polysaccharide type 10A vaccine 0.05 MG/ML / pneumococcal capsular polysaccharide type 11A vaccine 0.05 MG/ML / pneumococcal capsular polysaccharide type 12F vac ATHE NA ([facility]) Ondansetron 8 MG Oral Tablet ROLANDO ([facility]) Ondansetron 4 MG Oral Tablet ROLANDO ([facility]) Ondansetron 8 MG Disintegrating Oral Tablet ROLANDO ([facility]) Naproxen 250 MG Oral Tablet ROLANDO ([facility]) Metformin hydrochloride 1000 MG Oral Tablet ROLANDO ([facility]) meloxicam 7.5 MG Oral Tablet ROLANDO ([facility]) Acetaminophen 325 MG / Hydrocodone Bitartrate 7.5 MG Oral Tablet ROLANDO ([facility]) Acetaminophen 325 MG / Hydrocodone Bitartrate 5 MG Oral Tablet ROLANDO ([facility]) doxycycline hyclate 100 MG Oral Tablet ROLANDO ([facility]) Divalproex Sodium 500 MG Delayed Release Oral Tablet ROLANDO ([facility]) Divalproex Sodium 250 MG Delayed Release Oral Tablet ROLANDO ([facility]) carvedilol 3.125 MG Oral Tablet ROLANDO ([facility]) Amoxicillin 875 MG / Clavulanate 125 MG Oral Tablet ROLANDO ([facility]) topiramate 50 MG Oral Tablet ROLANDO ([facility]) Sumatriptan 25 MG Oral Tablet ROLANDO ([facility]) Simvastatin 20 MG Oral Tablet ROLANDO ([facility]) 0.5 ML pneumococcal capsular polysacchar triston type 1 vaccine 0.05 MG/ML / pneumococcal capsular polysaccharide type 10A vaccine 0.05 MG/ML / pneumococcal capsular polysaccharide type 11A vaccine 0.05 MG/ML / pneumococcal capsular polysaccharide type 12F vac ATHE NA ([facility]) Ondansetron 8 MG Oral Tablet ROLANDO ([facility]) Ondansetron 4 MG Oral Tablet ROLANDO ([facility]) Ondansetron 8 MG Disintegrating Oral Tablet ROLANDO ([facility]) Naproxen 250 MG Oral Tablet ROLANDO ([facility]) Metformin hydrochloride 1000 MG Oral Tablet ROLANDO ([facility]) meloxicam 7.5 MG Oral Tablet ROLANDO ([facility]) topiramate 50 MG Oral Tablet ROLANDO ([facility]) Sumatriptan 25 MG Oral Tablet ROLANDO ([facility]) Simvastatin 20 MG Oral Tablet ROLANDO ([facility]) 0.5 ML pneumococcal capsular polysacchar triston type 1 vaccine 0.05 MG/ML / pneumococcal capsular polysaccharide type 10A vaccine 0.05 MG/ML / pneumococcal capsular polysaccharide type 11A vaccine 0.05 MG/ML / pneumococcal capsular polysaccharide type 12F vac ATHE NA ([facility]) Ondansetron 8 MG Oral Tablet ROLANDO ([facility]) Ondansetron 4 MG Oral Tablet ROLANDO ([facility]) Ondansetron 8 MG Disintegrating Oral Tablet ROLANDO ([facility]) Naproxen 250 MG Oral Tablet ROLANDO ([facility]) Metformin hydrochloride 1000 MG Oral Tablet ROLANDO ([facility]) meloxicam 7.5 MG Oral Tablet ROLANDO ([facility]) Acetaminophen 325 MG / Hydrocodone Bitartrate 7.5 MG Oral Tablet ROLANDO ([facility]) Acetaminophen 325 MG / Hydrocodone Bitartrate 5 MG Oral Tablet ROLANDO ([facility]) doxycycline hyclate 100 MG Oral Tablet ROLANDO ([facility]) Divalproex Sodium 500 MG Delayed Release Oral Tablet ROLANDO ([facility]) Divalproex Sodium 250 MG Delayed Release Oral Tablet ROLANDO ([facility]) carvedilol 3.125 MG Oral Tablet ROLANDO ([facility]) Amoxicillin 875 MG / Clavulanate 125 MG Oral Tablet ROLANDO ([facility]) topiramate 50 MG Oral Tablet ROLANDO ([facility]) Sumatriptan 25 MG Oral Tablet ROLANDO ([facility]) Ondansetron 8 MG Oral Tablet ROLANDO ([facility]) Ondansetron 4 MG Oral Tablet ROLANDO ([facility]) Ondansetron 8 MG Disintegrating Oral Tablet ROLANDO ([facility]) Naproxen 250 MG Oral Tablet ROLANDO ([facility]) meloxicam 7.5 MG Oral Tablet ROLANDO ([facility]) Acetaminophen 325 MG / Hydrocodone Bitartrate 7.5 MG Oral Tablet ROLANDO ([facility]) Acetaminophen 325 MG / Hydrocodone Bitartrate 5 MG Oral Tablet ROLANDO ([facility]) doxycycline hyclate 100 MG Oral Tablet ROLANDO ([facility]) Divalproex Sodium 250 MG Delayed Release Oral Tablet ROLANDO ([facility]) carvedilol 3.125 MG Oral Tablet ROLANDO ([facility]) Amoxicillin 875 MG / Clavulanate 125 MG Oral Tablet ROLANDO ([facility]) topiramate 50 MG Oral Tablet ROLANDO ([facility]) Sumatriptan 25 MG Oral Tablet ROLANDO ([facility]) Simvastatin 20 MG Oral Tablet ROLANDO ([facility]) 0.5 ML pneumococcal capsular polysacchar triston type 1 vaccine 0.05 MG/ML / pneumococcal capsular polysaccharide type 10A vaccine 0.05 MG/ML / pneumococcal capsular polysaccharide type 11A vaccine 0.05 MG/ML / pneumococcal capsular polysaccharide type 12F vac ATHE NA ([facility]) Ondansetron 8 MG Oral Tablet ROLANDO ([facility]) Ondansetron 4 MG Oral Tablet ROLANDO ([facility]) Ondansetron 8 MG Disintegrating Oral Tablet ROLANDO ([facility]) Naproxen 250 MG Oral Tablet ROLANDO ([facility]) meloxicam 7.5 MG Oral Tablet ROLANDO ([facility]) Acetaminophen 325 MG / Hydrocodone Bitartrate 7.5 MG Oral Tablet ROLANDO ([facility]) Acetaminophen 325 MG / Hydrocodone Bitartrate 5 MG Oral Tablet ROLANDO ([facility]) doxycycline hyclate 100 MG Oral Tablet ROLANDO ([facility]) Divalproex Sodium 500 MG Delayed Release Oral Tablet ROLANOD ([facility]) Divalproex Sodium 250 MG Delayed Release Oral Tablet ROLANDO ([facility]) carvedilol 3.125 MG Oral Tablet ROLANDO ([facility]) Amoxicillin 875 MG / Clavulanate 125 MG Oral Tablet ROLANDO ([facility]) Acetaminophen 325 MG / Hydrocodone Bitartrate 7.5 MG Oral Tablet ROLANDO ([facility]) Acetaminophen 325 MG / Hydrocodone Bitartrate 5 MG Oral Tablet ROLANDO ([facility]) doxycycline hyclate 100 MG Oral Tablet ROLANDO ([facility]) Divalproex Sodium 500 MG Delayed Release Oral Tablet ROLANDO ([facility]) Divalproex Sodium 250 MG Delayed Release Oral Tablet ROLANDO ([facility]) carvedilol 3.125 MG Oral Tablet ROLANDO ([facility]) Amoxicillin 875 MG / Clavulanate 125 MG Oral Tablet ROLANDO ([facility])
[2020-10-10] MEDS ORDERED: diphenhydrAMINE 50MG/ML VIAL (J1200) IV STA (16:09)
[2020-10-10] MEDS ORDERED: KETOROLAC 30 MG/ML 1ML VIAL IV ONE (16:15)
[2020-10-10] MEDS ORDERED: METOCLOPRAMIDE INJ 10MG/2ML VIAL (J2765 PER 1) IV ONE (16:15)
[2020-10-10] MEDS ORDERED: NS 1,000 ML IV ONE (16:15)
[2020-10-10 17:02] LABS: BASO # 0.1 10^3/uL (0.0-0.2); BASO % 0.8 % (0.0-1.0); EOS # 0.3 10^3/uL (0.0-0.5); EOS % 2.3 % (0.0-3.0); HEMATOCRIT 44.2 % (42.0-52.0); HEMOGLOBIN 14.8 g/dl (13.5-17.5); LYMPH # 2.9 10^3/uL (1.5-5.0); LYMPH % 24.3 % (24.0-44.0); MEAN CORPUSCULAR HEMOGLOBIN 31.6 pg (27.0-33.0); MEAN CORPUSCULAR HGB CONC 33.5 g/dl (32.0-36.5); MEAN CORPUSCULAR VOLUME 94.4 fl (80.0-96.0); MONO # 0.7 10^3/uL (0.0-0.8); NEUTROPHILS # 7.8 10^3/uL (1.5-8.5); NEUTROPHILS % 66.1 % (36.0-66.0); PLATELET COUNT, AUTOMATED 261 10^3/uL (150-450); RED BLOOD COUNT 4.68 10^6/uL (4.30-6.10); WHITE BLOOD COUNT 11.8 10^3/uL (4.0-10.0)
[2020-10-10 17:28] LABS: BLOOD UREA NITROGEN 33 MG/DL (7-18); CALCIUM LEVEL 9.3 MG/DL (8.8-10.2); CARBON DIOXIDE LEVEL 25 MEQ/L (21-32); CHLORIDE LEVEL 101 MEQ/L (98-107); CREATININE FOR GFR 0.93 MG/DL (0.70-1.30); GLOMERULAR FILTRATION RATE > 60.0 (>49); GLUCOSE, FASTING 193 MG/DL (70-100); MAGNESIUM LEVEL 2.2 MG/DL (1.8-2.4); POTASSIUM SERUM 4.5 MEQ/L (3.5-5.1); SODIUM LEVEL 135 MEQ/L (136-145)
[2020-10-10] MEDS ORDERED: dexameTHASONE 20MG/5ML VIAL (J1100 PER 1MG) IV ONE (18:00)
[2020-10-10] MEDS: MAG SULF 1GM/100ML (MAG RUN) 1 GM in IV 1 EA IV ONE ×2 (19:30→20:16)
[2020-10-10] MEDS ORDERED: VALPROATE SOD INJ 1,000 MG in D5W 50 ML IV ONE (19:30)
[2020-10-10] MEDS ORDERED: DEPA250T2 PO (21:53)
[2020-10-10 22:14] VITALS: BP 143/78
== END 2020-10-10 22:16 | disposition home or self-care (01) ==
LOC: M ED 14:48
DX: G43.909 Migraine, unspecified, not intractable, without status migrainosus (principal); I10 Essential (primary) hypertension; N18.30 Chronic kidney disease, stage 3 unspecified; R42 Dizziness and giddiness; E11.40 Type 2 diabetes mellitus with diabetic neuropathy, unspecified; Z79.82 Long term (current) use of aspirin; Z79.4 Long term (current) use of insulin; Z79.899 Other long term (current) drug therapy; Z88.8 Allergy status to other drugs, medicaments and biological substances
CPT/HCPCS: 80048; 83735; 85025; 96361; 96365; 96366; 96375; 99284; J1100; J1200; J1885; J2765

== ENCOUNTER 2020-11-20 20:24 | Emergency (ER) | payer OTHER, BC ==
[~2020-11-20] VITALS: Ht 180.3 cm; Wt 95.6 kg
[~2020-11-20 20:24] MED LIST changes: +DEPA250T2 PO; +GLYB2.5T7 PO; -GLYB25TA PO; +SUMA50TA2
[2020-11-20] MEDS ORDERED: ONDANSETRON 4MG/2ML VIAL IV ONE (20:45)
[2020-11-20] MEDS ORDERED: NS 1,000 ML IV ONE (20:45)
[2020-11-20] MEDS ORDERED: KETOROLAC 30 MG/ML 1ML VIAL IV ONE (20:45)
[2020-11-20 21:16] LABS: BASO # 0.1 10^3/uL (0.0-0.2); BASO % 0.8 % (0.0-1.0); EOS # 0.1 10^3/uL (0.0-0.5); EOS % 1.2 % (0.0-3.0); HEMATOCRIT 45.3 % (42.0-52.0); HEMOGLOBIN 15.3 g/dl (13.5-17.5); LYMPH # 2.7 10^3/uL (1.5-5.0); LYMPH % 29.8 % (24.0-44.0); MEAN CORPUSCULAR HEMOGLOBIN 32.1 pg (27.0-33.0); MEAN CORPUSCULAR HGB CONC 33.8 g/dl (32.0-36.5); MONO # 0.5 10^3/uL (0.0-0.8); MONO % 5.4 % (2.0-8.0); NEUTROPHILS # 5.6 10^3/uL (1.5-8.5); NEUTROPHILS % 62.5 % (36.0-66.0); PLATELET COUNT, AUTOMATED 238 10^3/uL (150-450); RED BLOOD COUNT 4.77 10^6/uL (4.30-6.10); WHITE BLOOD COUNT 8.9 10^3/uL (4.0-10.0)
[2020-11-20 21:54] LABS: BLOOD UREA NITROGEN 32 MG/DL (7-18); CALCIUM LEVEL 9.3 MG/DL (8.8-10.2); CARBON DIOXIDE LEVEL 26 MEQ/L (21-32); CHLORIDE LEVEL 98 MEQ/L (98-107); CREATININE FOR GFR 1.19 MG/DL (0.70-1.30); GLOMERULAR FILTRATION RATE > 60.0 (>49); GLUCOSE, FASTING 399 MG/DL (70-100); POTASSIUM SERUM 4.1 MEQ/L (3.5-5.1); SODIUM LEVEL 133 MEQ/L (136-145)
[2020-11-20] MEDS ORDERED: HumuLIN R (REGULAR) INSULIN (NovoLIN R) **100U/ML** PER UNIT IV ONE (22:15)
[2020-11-20] MEDS ORDERED: SUMAtriptan SUCCINATE 25 MG TAB PO ONE (22:15)
[2020-11-20] MEDS ORDERED: ZOFR4TAB16 PO (23:49)
[2020-11-21 00:04] VITALS: BP 158/88
--- NOTE | 2020-11-21 08:33 | REP ---
INDICATION: headache, vomiting. Repeat dictation. Preliminary report is provided at the time of the exam by rm BAILEY. COMPARISON: Comparison study September 19, 2018.. TECHNIQUE: Helical scanning is acquired. 5 mm axial images were reformatted. Coronal MPR images were generated. FINDINGS: Bone window settings demonstrate an intact bony calvarium. There is no evidence of skull fracture or incidental bony calvarial lesion. The visualized paranasal sinuses appear clear. No intraorbital abnormality is seen. On soft tissue window setting images; the lateral, third, and fourth ventricles are normal in size and position. Keen-white differentiation pattern is normal above and below the tentorium. There are is no evidence of intracranial hemorrhage. No mass, edema, infarction, or midline shift is seen. No extra-axial fluid collection is appreciated. There is vascular calcification in the distal internal carotid arteries. There is mild generalized volume loss again noted. These findings are unchanged. IMPRESSION: No acute intracranial abnormality.. <Electronically signed by Amador Yepez > 11/21/20 7503
== END 2020-11-21 00:09 | disposition home or self-care (01) ==
LOC: M ED 20:24
DX: G43.909 Migraine, unspecified, not intractable, without status migrainosus (principal); E11.9 Type 2 diabetes mellitus without complications; I10 Essential (primary) hypertension; Z91.14 Patient's other noncompliance with medication regimen; Z79.82 Long term (current) use of aspirin; Z79.4 Long term (current) use of insulin; Z79.899 Other long term (current) drug therapy; Z88.8 Allergy status to other drugs, medicaments and biological substances
CPT/HCPCS: 70450; 80048; 85025; 93041; 94760; 96361; 96374; 96375; 99285; J1885; J2405

== ENCOUNTER 2020-12-18 16:09 | Emergency (ER) | payer OTHER, BC ==
[~2020-12-18] VITALS: Ht 180.3 cm; Wt 95.7 kg
[~2020-12-18 16:09] MED LIST changes: +ZOFR4TAB16 PO
[2020-12-18] MEDS ORDERED: NS 1,000 ML IV ONE (18:45)
[2020-12-18] MEDS ORDERED: METOCLOPRAMIDE INJ 10MG/2ML VIAL (J2765 PER 1) IV ONE (18:45)
[2020-12-18] MEDS ORDERED: diphenhydrAMINE 50MG/ML VIAL (J1200) IV ONE (18:45)
[2020-12-18] MEDS ORDERED: KETOROLAC 30 MG/ML 1ML VIAL IV ONE (19:00)
[2020-12-18 20:33] VITALS: BP 115/55
[2020-12-18] MEDS ORDERED: ZOFR4TAB16 PO (20:47)
== END 2020-12-18 20:53 | disposition home or self-care (01) ==
LOC: M ED 16:09
DX: G43.909 Migraine, unspecified, not intractable, without status migrainosus (principal); E16.2 Hypoglycemia, unspecified; E86.0 Dehydration; I10 Essential (primary) hypertension; K57.90 Diverticulosis of intestine, part unspecified, without perforation or abscess without bleeding; N18.30 Chronic kidney disease, stage 3 unspecified; H81.09 Meniere's disease, unspecified ear; R42 Dizziness and giddiness; E27.9 Disorder of adrenal gland, unspecified; Z79.82 Long term (current) use of aspirin; Z79.4 Long term (current) use of insulin; Z79.899 Other long term (current) drug therapy; Z88.8 Allergy status to other drugs, medicaments and biological substances
CPT/HCPCS: 80047; 96361; 96374; 96375; 99284; J1200; J1885; J2765

== ENCOUNTER → 2021-01-08 | Outpatient (CLI) | payer OTHER ==
--- NOTE | 2021-01-09 23:52 | ECWPNPC ---
PATIENT NAME: IWONA VALDERRAMA : 1960 GENDER: MALE VISIT DATE: 01/08/2021 DISCHARGE DATE: 01/08/21 1421 VISIT LOCKED DATE TIME: PHYSICIAN: HAMIDA PINK RESOURCE: HAMIDA PINK REASON FOR APPOINTMENT 1. 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 PATIENT WAS TOLD THAT HE HAD EXPERIENCED ZINC AND GALVANIZED POISONING. SINCE THAT TIME PATIENT HAS EXPERIENCED DEBILITATING HEADACHES. HE HAS TRIED SUMATRIPTAN IN THE PAST WITH LITTLE TO NO RELIEF. PHQ-2 (2015 EDITION) LITTLE INTEREST OR PLEASURE IN DOING THINGS?NOT AT ALL FEELING DOWN, DEPRESSED, OR HOPELESS?NOT AT ALL TOTAL SCORE0 GENERAL: - -. FALL RISK SCREENING: SCREENING : NO FALLS REPORTED IN THE LAST YEAR. PAIN SCREENING: PATIENT HAS A COMPLAINT OF ACUTE OR CHRONIC PAIN :YES LOCATION OF PAIN:HEAD, NECK, BOTH SHOULDERS INTENSITY OF PAIN (SCALE OF 1 TO 10):7 WHAT DOES YOUR PAIN FEEL LIKE:ACHING, INTERMITTENT, THROBBING HEADACHES FROM 1-2 DAYS. DURATION:INTERMITTENT HEADACHES INTERMITTIENT. NECK PAIN IS CONSTANT. PAIN IS INCREASED BY:ACTIVITIES PAIN IS DECREASED BY:USE OF PAIN MEDICATIONS, SITTING, OTHERS HEAT, LAYING FLAT NURSING NOTE: - -. PAIN CENTER INTAKE QUESTIONS: DO YOU HAVE A HISTORY OF MRSA? :NO DO YOU TAKE A BLOOD THINNERS? :NO ASPIRIN DO YOU HAVE ANY BLEEDING DISORDERS? :NO ANY NEW NUMBNESS OR WEAKNESS IN YOUR LEGS OR ARMS? :NO ANY PACEMAKER,DEFIBRILLATOR, OR DORSAL COLUMN STIMULATOR? :NO DO YOU HAVE ANY RASHES OR OPEN SORES? :NO ARE YOU ALLERGIC TO IV DYE? :NO ARE YOU DIABETIC? :YES ANY NEW PROBLEMS WITH YOUR MEDICATIONS? :NO HAVE YOU RECEIVED A VACCINE IN THE PAST 30 DAYS? :NO DO YOU PLAN TO RECEIVE A VACCINE IN THE NEXT 21 DAYS? :NO DO YOU NEED ANY PRESCRIPTION? :NO DO YOU TAKE ANY IMMUNOSUPPRESSIVE MEDICATIONS? :NO IS THERE A CHANCE YOU COULD BE ? :NO ARE YOU BREAST FEEDING? :NO CURRENT MEDICATIONS TAKING MAY USE NOVALOG 32 UNITS INTRAMUSCULARLY AT MEALTIME TAKING TRULICITY 1.5 MG/0.5ML SOLUTION PEN-INJECTOR DIRECTED SUBCUTANEOUS TAKING ALLOPURINOL 100 MG TABLET 1 TABLET ORALLY ONCE A DAY, NOTES: DOSE UNKNOWN TAKING CARVEDILOL 6.25 MG TABLET 1 TABLET WITH FOOD ORALLY TWICE A DAY TAKING ZOFRAN 4 MG TABLET 1 TABLET ORALLY THREE TIMES DAILY NEEDED TAKING SIMVASTATIN 10 MG TABLET 1 TABLET IN THE EVENING ORALLY ONCE A DAY, NOTES: DOSE UNKNOWN TAKING JARDIANCE 25 MG TABLET 1 TABLET ORALLY ONCE A DAY TAKING ASPIRIN 1 TAB ORAL TAKING TOPIRAMATE 50 MG TABLET TAKE ONE TABLET BY MOUTH TWICE A DAY ORAL DIRECTED TAKING SKELAXIN 800 MG TABLET 1 TABLET ORALLY THREE TIMES A DAY TAKING GLIPIZIDE 10 MG TABLET 1 TABLET 30 MINUTES BEFORE BREAKFAST ORALLY THREE TIMES DAILY TAKING MAGNESIUM 30 MG TABLET 1 TABLET WITH A MEAL ORALLY ONCE A DAY TAKING VITAMIN D-3 125 MCG (5000 UT) TABLET DIRECTED ORALLY TAKING CALCIUM 1 TAB ORAL TAKING VASCEPA 1 GM CAPSULE 2 CAPSULES WITH MEALS ORALLY TWICE A DAY TAKING MECLIZINE HCL 50 MG TABLET DIRECTED ORALLY TAKING SUMATRIPTAN 20 MG/ACT SOLUTION 1 SPRAY AT ONSET OF HEADACHE IN ONE NOSTRIL MAY REPEAT AFTER 2 HOURS NEEDED NASALLY ONCE A DAY TAKING TRESIBA FLEXTOUCH 100 UNIT/ML SOLUTION PEN-INJECTOR 80 UNITS DIRECTED SUBCUTANEOUS DIRECTED MEDICATION LIST REVIEWED AND RECONCILED WITH THE PATIENT PAST MEDICAL HISTORY DIABETES GOUT HEADACHES/MIGRAINES HEARING LOSS HTN HYPERLIPIDEMIA ALLERGIES INVOKANA: ANAPHYLAXIS - ALLERGY SURGICAL HISTORY APPENDECTOMY 1975 BACK 1999 ADRENAL GLAND 2014 FAMILY HISTORY FATHER: MOTHER: SIBLINGS: ALIVE SON(S): ALIVE 1 SISTER(S) - HEALTHY. 1 SON(S) - HEALTHY. SISTER DIAGNOSED WITH CANCER. SOCIAL HISTORY GENERAL: TOBACCO USE ARE YOU A:NONSMOKER LATEX QUESTIONNAIRE LATEX ALLERGY : HAVE YOU EVER DEVELOPED ANY TYPE OF REACTION AFTER HANDLING LATEX PRODUCTS SUCH RUBBER GLOVES, CONDOMS, DIAPHRAGMS, BALLOONS, SOCKS, OR UNDERWEAR?NO LATEX ALLERGY : HAVE YOU EVER DEVELOPED ANY TYPE OF REACTION DURING OR AFTER DENTAL APPOINTMENT, VAGINAL/RECTAL EXAMINATION, SURGICAL PROCEDURE, OR ANY OTHER EXPOSURE?NO LATEX RISK : HAVE YOU EVER HAD ANY DIFFICULTY BREATHING OR HIVES AFTER EATING OR HANDLING ANY FRUITS, OR VEGETABLES; SUCH KIWI, BANANAS, STONE FRUITS, OR CHESTNUTSNO LATEX RISK : DO YOU HAVE A PREVIOUS PERSONAL HISTORY OF MORE THAN NINE SURGERIES, SPINA BIFIDA, OR REPEATED CATHERIZATIONS? NO LATEX RISK : ARE YOU FREQUENTLY EXPOSED TO LATEX PRODUCTS IN YOUR OCCUPATION?YES DATE ASKED : 01/08/2021 ALCOHOL USE: NO. RECREATIONAL DRUG USE DRUG USE?NO LANGUAGE LANGUAGES SPOKEN:URUGUAYAN LEARNING BARRIERS / SPECIAL NEEDS BARRIERS TO LEARNING?NO HEARING IMPAIRED?YES HEARING LOSS BOTH EARS, TINNITUS VISION IMPAIRED?YES :CORRECTIVE LENSES COGNITIVELY IMPAIRED?NO READINESS TO LEARN?YES LEARNING PREFERENCES?NO LEARNING CAPABILITIES PRESENT?YES EMOTIONAL BARRIERS?NO SPECIAL DEVICES?NO DIGITAL MEDIA STRATEGIST NEEDED?NO HOSPITALIZATION/MAJOR DIAGNOSTIC PROCEDURE FOR SURGERIES VOMITING/DIZZINESS 2019 ALLERGIC REACTION TO INVOKANA 2017 REVIEW OF SYSTEMS CONSTITUTIONAL: ANY RECENT FEVER NO . CHILLS NO . WEIGHT CHANGE OF UNKNOWN REASONS NO . MUSCULOSKELETAL: ANY UNUSUAL JOINT PAIN OR SWELLING NOT MENTIONED NO . SYSTEMIC LUPUS NO . ANY NEUROMUSCULAR DISORDER NOT MENTIONED NO . LYME DISEASE NO . GASTROENTEROLOGY: ANY NEW CHANGE IN BOWEL CONTROL? NO . HISTORY OF LIVER DISORDER NOT MENTIONED NO . HISTORY OF UNUSUAL ABDOMINAL PAIN OR CRAMPING NOT MENTIONED NO . NO CONSTIPATION. GENITOURINARY: ANY NEW CHANGE IN BLADDER CONTROL? NO . ANY RENAL/KIDNEY CONDITON NOT MENTIONED NO . NEUROLOGY: HISTORY OF TBI NOT MENTIONED NO . OTHER NEW NUMBNESS OR PAIN PATTERNS NOT MENTIONED NO . NEW ONSET DIZZINESS OR NEUROLOGICAL CHANGES NOT MENTIONED NO . HISTORY OF SEVERE HEADACHES NOT MENTIONED NO . HISTORY OF STROKE OR NEUROLOGICAL DISORDER NOT MENTIONED NO . CARDIOLOGY: HEART SURGERY NO . CONGESTIVE HEART FAILURE/FLUID OVERLOAD NOT MENTIONED NO . HISTORY OF CHEST PAIN,IRREGULAR HEART BEAT NOT MENTIONED NO . RESPIRATORY: SHORTNESS OF BREATH ON EXERTION, WHEEZES, UNUSUAL COUGH NOT MENTIONED NO . ENDOCRINOLOGY: ADRENAL GLAND OR THYROID DISORDERS NOT MENTIONED NO . UNUSUAL URINATION, DIZZINESS OR LETHARGY NOT MENTIONED NO . VITAL SIGNS WT 221.8 LBS, HT 71 IN, BMI 30.93 INDEX, BP 134/76 MM HG, HR 119 /MIN, RR 18 /MIN, TEMP 97.2 F, OXYGEN SAT % 98%, SAFE IN ENV? (Y/N) YES, REVIEWED BY: LAURIE APPIAH MA. EXAMINATION GENERAL EXAMINATION: GENERALNO ACUTE DISTRESS, WELL NOURISHED AND HYDRATED. PSYCHAPPROPRIATE MOOD AND AFFECT . LUNGS:CLEAR TO AUSCULTATION BILATERALLY, NO WHEEZES, RHONCHI, RALES. HEART:NO MURMURS, REGULAR RATE AND RHYTHM. ASSESSMENTS CHRONIC MIGRAINE WITHOUT AURA OR STATUS MIGRAINOSUS - G43.709 (PRIMARY) TREATMENT CHRONIC MIGRAINE WITHOUT AURA OR STATUS MIGRAINOSUS NOTES: 60-YEAR-OLD MALE IN FOR INITIAL PAIN CONSULT REGARDING CHRONIC HEADACHES RESULTING FROM INCIDENT AT WORK IN APRIL 2018. GIVEN PRESENTING SYMPTOMS RECOMMENDED BOTOX INJECTIONS TO THE HEAD NECK AND SHOULDERS WITH POST PROCEDURAL FOLLOW-UP. PATIENT HAS EXPRESSED UNDERSTANDING OF AND WAS IN AGREEMENT WITH TREATMENT PLAN. GIVEN TIME TO ASK QUESTIONS AND EXPRESS CONCERNS. PROCEDURES PN WORKMANS' COMP OPINION IN YOUR OPINION, WAS THE INCIDENT THAT THE PATIENT DESCRIBED THE COMPETENT MEDICAL CAUSE OF THIS INJURY/ILLNESS? YES ARE THE PATIENT'S COMPLAINTS CONSISTENT WITH HIS/HER HISTORY OF THE INJURY/ILLNESS? YES IS THE PATIENT'S HISTORY OF THE INJURY/ILLNESS CONSISTENT WITH YOUR OBJECTIVE FINDING? YES WHAT IS THE PERCENTAGE OF TEMPORARY IMPAIRMENT? MODERATE TO MARKED = 66.7% IS THE PATIENT WORKING? YES DOCTOR ON SITE: NEIL ANDINO MD PROCEDURE CODES FA211 ESTABILISHED PATIENT [facility] CHARGE DISPOSITION & COMMUNICATION FOLLOW UP POST PROCEDURE (REASON: BOTOX INJECTION TO THE HEAD SHOULDERS AND NECK) ELECTRONICALLY SIGNED BY MATTHEW PETERSEN ON 01/09/2021 AT 01:01 PM EDT DISCLAIMER : THIS IS A VISIT SUMMARY EXTRACTED FROM THE [employer] CHART. IT IS NOT A COPY OF THE [employer] PROGRESS NOTE. PHILIP
== END ==
LOC: M PAIN 13:00
PROVIDERS: ATTEND Family Medicine
DX: G43.709 Chronic migraine without aura, not intractable, without status migrainosus (principal); E11.9 Type 2 diabetes mellitus without complications; M10.9 Gout, unspecified; H91.90 Unspecified hearing loss, unspecified ear; I10 Essential (primary) hypertension; E78.5 Hyperlipidemia, unspecified; Z79.84 Long term (current) use of oral hypoglycemic drugs; Z79.899 Other long term (current) drug therapy; Z79.82 Long term (current) use of aspirin; Z88.8 Allergy status to other drugs, medicaments and biological substances

== ENCOUNTER 2021-02-09 06:36 | Emergency (ER) | payer OTHER ==
[~2021-02-09] VITALS: Ht 180.3 cm; Wt 100.6 kg
[2021-02-09] MEDS ORDERED: ACETAMINOPHEN 500 MG TAB PO ONE (07:45)
[2021-02-09] MEDS ORDERED: diphenhydrAMINE 50MG/ML VIAL (J1200) IV ONE (07:45)
[2021-02-09] MEDS ORDERED: NS 1,000 ML IV ONE (07:45)
[2021-02-09] MEDS ORDERED: METOCLOPRAMIDE INJ 10MG/2ML VIAL (J2765 PER 1) IV ONE (07:45)
[2021-02-09 09:33] VITALS: BP 145/86
== END 2021-02-09 09:34 | disposition home or self-care (01) ==
LOC: M ED 06:36
DX: G43.909 Migraine, unspecified, not intractable, without status migrainosus (principal); E11.9 Type 2 diabetes mellitus without complications; I10 Essential (primary) hypertension; E78.5 Hyperlipidemia, unspecified; N18.9 Chronic kidney disease, unspecified; Z79.84 Long term (current) use of oral hypoglycemic drugs; Z79.899 Other long term (current) drug therapy; Z88.8 Allergy status to other drugs, medicaments and biological substances
CPT/HCPCS: 96361; 96374; 99284; J1200; J2765

== ENCOUNTER 2021-02-11 07:13 | Emergency (ER) | payer OTHER ==
[~2021-02-11] VITALS: Ht 180.3 cm; Wt 101.5 kg
[2021-02-11] MEDS ORDERED: diphenhydrAMINE 50MG/ML VIAL (J1200) IV ONE (09:25)
[2021-02-11] MEDS ORDERED: KETOROLAC 30 MG/ML 1ML VIAL IV ONE (09:25)
[2021-02-11] MEDS ORDERED: METOCLOPRAMIDE INJ 10MG/2ML VIAL (J2765 PER 1) IV ONE (09:25)
[2021-02-11] MEDS ORDERED: ACETAMINOPHEN 500 MG TAB PO ONE (09:25)
[2021-02-11] MEDS ORDERED: NS 1,000 ML IV ONE (09:25)
[2021-02-11 10:48] LABS: BASO # 0.1 10^3/uL (0.0-0.2); BASO % 0.7 % (0.0-1.0); EOS # 0.2 10^3/uL (0.0-0.5); EOS % 1.8 % (0.0-3.0); HEMATOCRIT 47.7 % (42.0-52.0); HEMOGLOBIN 15.7 g/dl (13.5-17.5); LYMPH # 2.8 10^3/uL (1.5-5.0); LYMPH % 28.7 % (24.0-44.0); MEAN CORPUSCULAR HEMOGLOBIN 32.2 pg (27.0-33.0); MEAN CORPUSCULAR HGB CONC 32.9 g/dl (32.0-36.5); MEAN CORPUSCULAR VOLUME 97.7 fl (80.0-96.0); MONO # 0.6 10^3/uL (0.0-0.8); MONO % 5.6 % (2.0-8.0); NEUTROPHILS # 6.2 10^3/uL (1.5-8.5); NEUTROPHILS % 62.7 % (36.0-66.0); PLATELET COUNT, AUTOMATED 227 10^3/uL (150-450); RED BLOOD COUNT 4.88 10^6/uL (4.30-6.10); WHITE BLOOD COUNT 9.8 10^3/uL (4.0-10.0)
[2021-02-11 10:51] LABS: APPEARANCE, URINE CLEAR (CLEAR); BACTERIA, URINE AUTO NEGATIVE (NEGATIVE); BILIRUBIN, URINE AUTO NEGATIVE (NEGATIVE); BLOOD, URINE BLOOD NEGATIVE (NEGATIVE); COLOR, URINE YELLOW (YELLOW); GLUCOSE, URINE (UA) AUTO 3+ mg/dL (NEGATIVE); KETONE, URINE AUTO NEGATIVE (NEGATIVE); LEUKOCYTE ESTERASE, URINE AUTO NEGATIVE (NEGATIVE); NITRITE, URINE AUTO NEGATIVE (NEGATIVE); PROTEIN, URINE AUTO 1+ mg/dL (NEGATIVE); RBC, URINE AUTO 1 /HPF (0-3); SPECIFIC GRAVITY URINE AUTO 1.023 (1.002-1.035); SQUAMOUS EPITHELIAL CELL UR AU 0 /HPF (0-6); UROBILINOGEN, URINE AUTO 0.2 mg/dL (0.0-2.0); WBC, URINE AUTO 0 /HPF (0-3)
[2021-02-11 11:12] LABS: BLOOD UREA NITROGEN 26 MG/DL (7-18); CALCIUM LEVEL 10.3 MG/DL (8.8-10.2); CARBON DIOXIDE LEVEL 29 MEQ/L (21-32); CHLORIDE LEVEL 104 MEQ/L (98-107); CREATININE FOR GFR 0.88 MG/DL (0.70-1.30); GLOMERULAR FILTRATION RATE > 60.0 (>49); GLUCOSE, FASTING 82 MG/DL (70-100); POTASSIUM SERUM 4.4 MEQ/L (3.5-5.1); SODIUM LEVEL 138 MEQ/L (136-145)
[2021-02-11 11:28] LABS: MONO SCRN NEGATIVE (NEGATIVE)
[2021-02-11 11:33] LABS: ERYTHROCYTE SEDIMENTATION RATE 12 mm/hr (0-20)
[2021-02-11 13:46] VITALS: BP 155/89
[2021-02-12 17:07] LABS: Lyme Disease IgG/IgM Antibodie <0.91 ISR (0.00-0.90); Lyme Disease IgM Ab Quantitati <0.80 index (0.00-0.79)
== END 2021-02-11 14:00 | disposition home or self-care (01) ==
LOC: M ED 07:13
DX: G43.909 Migraine, unspecified, not intractable, without status migrainosus (principal); Z11.52 Encounter for screening for COVID-19; R11.2 Nausea with vomiting, unspecified; E66.9 Obesity, unspecified; E11.40 Type 2 diabetes mellitus with diabetic neuropathy, unspecified; I10 Essential (primary) hypertension; E78.5 Hyperlipidemia, unspecified; M10.9 Gout, unspecified; N18.30 Chronic kidney disease, stage 3 unspecified; G89.29 Other chronic pain; M54.9 Dorsalgia, unspecified; Z86.79 Personal history of other diseases of the circulatory system; H81.09 Meniere's disease, unspecified ear; Z87.19 Personal history of other diseases of the digestive system; Z79.4 Long term (current) use of insulin; Z79.82 Long term (current) use of aspirin; Z79.899 Other long term (current) drug therapy; Z88.8 Allergy status to other drugs, medicaments and biological substances
CPT/HCPCS: 36415; 80048; 81001; 85025; 85652; 86140; 86308; 86617; 87804; 96361; 96374; 96375; 99284; J1200; J1885; J2765; U0003

== ENCOUNTER 2021-03-05 09:41 | Emergency (ER) | payer OTHER ==
[~2021-03-05] VITALS: Ht 180.3 cm; Wt 102.9 kg
[2021-03-05] MEDS ORDERED: diphenhydrAMINE 50MG/ML VIAL (J1200) IV STA (12:17)
[2021-03-05] MEDS ORDERED: METOCLOPRAMIDE INJ 10MG/2ML VIAL (J2765 PER 1) IV ONE (12:20)
[2021-03-05] MEDS ORDERED: NS 1,000 ML IV ONE (12:20)
[2021-03-05] MEDS ORDERED: ACETAMINOPHEN 325 MG TAB PO ONE (12:20)
[2021-03-05] MEDS ORDERED: KETOROLAC 30 MG/ML 1ML VIAL IV ONE (13:00)
[2021-03-05 14:06] VITALS: BP 143/77
== END 2021-03-05 14:08 | disposition home or self-care (01) ==
LOC: M ED 09:41
DX: G43.909 Migraine, unspecified, not intractable, without status migrainosus (principal); E11.9 Type 2 diabetes mellitus without complications; I10 Essential (primary) hypertension; Z79.4 Long term (current) use of insulin; Z79.899 Other long term (current) drug therapy; Z79.82 Long term (current) use of aspirin; Z88.8 Allergy status to other drugs, medicaments and biological substances
CPT/HCPCS: 96361; 96374; 96375; 99284; J1200; J1885; J2765

== ENCOUNTER 2021-03-26 07:33 | Emergency (ER) | payer OTHER ==
[~2021-03-26] VITALS: Ht 180.3 cm; Wt 103.1 kg
[2021-03-26] MEDS ORDERED: diphenhydrAMINE 50MG/ML VIAL (J1200) IV STA (07:59)
[2021-03-26] MEDS ORDERED: NS 1,000 ML IV ONE (08:00)
[2021-03-26] MEDS ORDERED: KETOROLAC 30 MG/ML 1ML VIAL IV ONE (08:00)
[2021-03-26] MEDS ORDERED: METOCLOPRAMIDE INJ 10MG/2ML VIAL (J2765 PER 1) IV ONE (08:00)
[2021-03-26 09:53] VITALS: BP 110/60
== END 2021-03-26 10:12 | disposition home or self-care (01) ==
LOC: M ED 07:33
DX: G43.909 Migraine, unspecified, not intractable, without status migrainosus (principal)
CPT/HCPCS: 96361; 96374; 96375; 99284; J1200; J1885; J2765

== ENCOUNTER 2021-03-30 07:28 | Emergency (ER) | payer OTHER ==
[~2021-03-30] VITALS: Ht 180.3 cm; Wt 103.6 kg
[2021-03-30 07:29] VITALS: BP 141/75
[2021-03-30] MEDS ORDERED: METOCLOPRAMIDE INJ 10MG/2ML VIAL (J2765 PER 1) IV ONE (08:10)
[2021-03-30] MEDS ORDERED: NS 1,000 ML IV ONE (08:10)
[2021-03-30] MEDS ORDERED: KETOROLAC 30 MG/ML 1ML VIAL IV ONE (08:10)
[2021-03-30] MEDS ORDERED: diphenhydrAMINE 50MG/ML VIAL (J1200) IV ONE (08:10)
== END 2021-03-30 10:20 | disposition home or self-care (01) ==
LOC: M ED 07:28
DX: G43.909 Migraine, unspecified, not intractable, without status migrainosus (principal); E11.9 Type 2 diabetes mellitus without complications; I10 Essential (primary) hypertension; Z79.82 Long term (current) use of aspirin; Z79.4 Long term (current) use of insulin; Z79.899 Other long term (current) drug therapy; Z88.8 Allergy status to other drugs, medicaments and biological substances
CPT/HCPCS: 96361; 96374; 96375; 99283; J1200; J1885; J2765

== ENCOUNTER → 2021-05-15 | Outpatient (REF) | payer OTHER | LOC: M LAB REF 12:56 | PROVIDERS: ATTEND Internal Medicine Nephrology | DX: N18.2 Chronic kidney disease, stage 2 (mild) (principal) ==

== ENCOUNTER 2021-07-23 05:52 | Emergency (ER) | payer OTHER ==
[~2021-07-23] VITALS: Ht 180.3 cm; Wt 94.3 kg
--- OUTSIDE RECORDS SUMMARY | 2021-07-23 06:09 | CCD | Continuity of Care Document ---
Author Author Guille SEALS DPT Organization Unknown Address [address] [place] [phone] Phone [phone] Care Team Providers Care School Health Aide Name Role Phone Lacy Callahan DO AUTM [phone] Problems Description No Information Available Social History Type Date Description Comments Sex Unknown Allergies and adverse reactions Description No Information Available Medications Description No Information Available Immunizations Description No Information Available Vital Signs Description No Information Available Results Description No Information Available Procedures Date Code Description Status 07/20/2021 69215 Therapeutic Procedure, Each 15 M inutes Completed 07/20/2021 89346 Electrical Stimulati on Manual, Each 15 Min, Constant Attendance Completed 07/20/2021 35220 Hot Or Cold Packs Completed 07/20/2021 47931 Manual Therapy Each 15 Minutes C ompleted 07/16/2021 49490 Manual Therapy Each 15 Minutes C ompleted 07/16/2021 39718 Therapeutic Procedure, Each 15 M inutes Completed 07/16/2021 80287 Electrical Stimulati on Manual, Each 15 Min, Constant Attendance Completed 07/16/2021 86831 Hot Or Cold Packs Completed 07/10/2021 81289 Manual Therapy Each 15 Minutes C ompleted 07/10/2021 28756 Hot Or Cold Packs Completed 07/10/2021 86838 Electrical Stimulati on Manual, Each 15 Min, Constant Attendance Completed 07/10/2021 00646 Re-Eval Of PT Establ ished Plan Of Care 20Mins Face To Face PT/Fam Completed 05/15/2021 99717 Manual Therapy Each 15 Minutes C ompleted 05/15/2021 86190 Therapeutic Procedure, Each 15 M inutes Completed 05/15/2021 99505 Electrical Stimulati on Manual, Each 15 Min, Constant Attendance Completed 05/15/2021 71715 Hot Or Cold Packs Completed 05/08/2021 74798 Manual Therapy Each 15 Minutes C ompleted 05/08/2021 58358 Hot Or Cold Packs Completed 05/08/2021 66589 Electrical Stimulati on Manual, Each 15 Min, Constant Attendance Completed 05/08/2021 99946 Therapeutic Procedure, Each 15 M inutes Completed 05/01/2021 16886 Manual Therapy Each 15 Minutes C ompleted 05/01/2021 23320 Therapeutic Procedure, Each 15 M inutes Completed 05/01/2021 87329 Electrical Stimulati on Manual, Each 15 Min, Constant Attendance Completed 05/01/2021 14275 Hot Or Cold Packs Completed 04/24/2021 14746 Manual Therapy Each 15 Minutes C ompleted 04/24/2021 75801 Therapeutic Procedure, Each 15 M inutes Completed 04/24/2021 04867 Electrical Stimulati on Manual, Each 15 Min, Constant Attendance Completed 04/17/2021 12164 Manual Therapy Each 15 Minutes C ompleted 04/17/2021 84406 Therapeutic Procedure, Each 15 M inutes Completed 04/17/2021 56423 Electrical Stimulati on Manual, Each 15 Min, Constant Attendance Completed 04/10/2021 28799 Re-Eval Of PT Establ ished Plan Of Care 20Mins Face To Face PT/Fam Completed 04/10/2021 11305 Manual Therapy Each 15 Minutes C ompleted Medical Devices Description No Information Available Encounters Description No Information Available Assessments Date Code Description Provider 07/20/2021 M54.2 Cervicalgia George Seals, PT, DPT 07/20/2021 R51.0 Headache with orthostatic compon ent, not elsewhere classified George Seals, PT, DPT 07/16/2021 M54.2 Cervicalgia George Seals, PT, DPT 07/16/2021 R51.0 Headache with orthostatic compon ent, not elsewhere classified George Seals, PT, DPT 07/10/2021 M54.2 Cervicalgia George Seals, PT, DPT 07/10/2021 R51.0 Headache with orthostatic compon ent, not elsewhere classified George Seals, PT, DPT 05/15/2021 M54.2 Cervicalgia Angel Vo Cook P .T. 05/15/2021 R51.0 Headache with orthostatic compon ent, not elsewhere classified Angel Vo Cook P.T. 05/08/2021 M54.2 Cervicalgia Angel Vo Cook P .T. 05/08/2021 R51.0 Headache with orthostatic compon ent, not elsewhere classified Angel Vo Cook P.T. 05/01/2021 M54.2 Cervicalgia Angel Vo Cook P .T. 05/01/2021 R51.0 Headache with orthostatic compon ent, not elsewhere classified Angel Vo Cook P.T. 04/24/2021 M54.2 Cervicalgia Angel Vo Cook P .T. 04/24/2021 R51.0 Headache with orthostatic compon ent, not elsewhere classified Angel oV Cook P.T. 04/17/2021 M54.2 Cervicalgia Angel Vo Cook P .T. 04/17/2021 R51.0 Headache with orthostatic compon ent, not elsewhere classified Angel Vo Cook P.T. 04/10/2021 M54.2 Cervicalgia Angel Vo Cook P .T. 04/10/2021 R51.0 Headache with orthostatic compon ent, not elsewhere classified Angel Vo Sim P.T. Plan of Treatment Future Appointment(s):* 07/28/2021 10:30 am - George Seals PT, DPT at Physical Therapy Referral Functional Status Description No Information Available Mental Status Description No Information Available Referrals Refer to Reason for Referral Status Appt Date Sachin Eason MD PT- C SPINE WRITTEN AUTH FOR 12 VISITS 6 WEEKS. PASSED TO PT DEPT. LS Created [address] [place] [phone] Sachin Eason MD PT- NECK WRITTEN AUTH PASSED TO PT DEPT. LS Created [address] [place] [phone]
--- OUTSIDE RECORDS SUMMARY | 2021-07-23 06:09 | CCD | Continuity of Care Document ---
Author Author Guille MONTEMAYOR P.T. Organization Unknown Address [address] [place] [id number] Phone [phone] Care Team Providers Care [employer] Developer Name Role Phone Lacy Callahan DO AUTM [phone] Problems Description No Information Available Social History Type Date Description Comments Sex Unknown Allergies, Adverse Reactions, Alerts Description No Information Available Medications Description No Information Available Immunizations Description No Information Available Vital Signs Description No Information Available Results Description No Information Available Procedures Date Code Description Status 05/15/2021 83828 Therapeutic Procedure, Each 15 M inutes Completed 05/15/2021 41207 Manual Therapy Each 15 Minutes C ompleted 05/15/2021 68793 Hot Or Cold Packs Completed 05/15/2021 53288 Electrical Stimulati on Manual, Each 15 Min, Constant Attendance Completed 05/08/2021 21867 Manual Therapy Each 15 Minutes C ompleted 05/08/2021 76865 Therapeutic Procedure, Each 15 M inutes Completed 05/08/2021 31543 Electrical Stimulati on Manual, Each 15 Min, Constant Attendance Completed 05/08/2021 45751 Hot Or Cold Packs Completed 05/01/2021 74880 Manual Therapy Each 15 Minutes C ompleted 05/01/2021 92654 Therapeutic Procedure, Each 15 M inutes Completed 05/01/2021 96400 Electrical Stimulati on Manual, Each 15 Min, Constant Attendance Completed 05/01/2021 61077 Hot Or Cold Packs Completed 04/24/2021 34251 Manual Therapy Each 15 Minutes C ompleted 04/24/2021 57079 Therapeutic Procedure, Each 15 M inutes Completed 04/24/2021 00726 Electrical Stimulati on Manual, Each 15 Min, Constant Attendance Completed 04/17/2021 88126 Electrical Stimulati on Manual, Each 15 Min, Constant Attendance Completed 04/17/2021 44058 Therapeutic Procedure, Each 15 M inutes Completed 04/17/2021 79486 Manual Therapy Each 15 Minutes C ompleted 04/10/2021 01267 Re-Eval Of PT Establ ished Plan Of Care 20Mins Face To Face PT/Fam Completed 04/10/2021 48909 Manual Therapy Each 15 Minutes C ompleted 01/16/2021 80946 Re-Eval Of PT Establ ished Plan Of Care 20Mins Face To Face PT/Fam Completed 01/16/2021 15296 Manual Therapy Each 15 Minutes C ompleted 01/16/2021 23852 Therapeutic Procedure, Each 15 M inutes Completed 01/16/2021 20606 Electrical Stimulati on Manual, Each 15 Min, Constant Attendance Completed 01/16/2021 55393 Hot Or Cold Packs Completed 01/09/2021 65525 Manual Therapy Each 15 Minutes C ompleted 01/09/2021 62903 Therapeutic Procedure, Each 15 M inutes Completed 01/09/2021 64859 Hot Or Cold Packs Completed 01/02/2021 11050 Manual Therapy Each 15 Minutes C ompleted 01/02/2021 59448 Hot Or Cold Packs Completed 12/26/2020 62417 Manual Therapy Each 15 Minutes C ompleted 12/26/2020 66942 Hot Or Cold Packs Completed 12/19/2020 58691 Physical Therapy Eval - Mod Comp lexity Completed Medical Devices Description No Information Available Encounters Description No Information Available Assessments Date Code Description Provider 05/15/2021 M54.2 Cervicalgia Angel Montemayor P .T. 05/15/2021 R51.0 Headache with orthostatic compon ent, not elsewhere classified Angel Montemayor P.T. 05/08/2021 M54.2 Cervicalgia Angel Montemayor P .T. 05/08/2021 R51.0 Headache with orthostatic compon ent, not elsewhere classified Angel Montemayor P.T. 05/01/2021 M54.2 Cervicalgia Angel Montemayor P .T. 05/01/2021 R51.0 Headache with orthostatic compon ent, not elsewhere classified Angel Montemayor P.T. 04/24/2021 M54.2 Cervicalgia Angel Vo Cook P .T. 04/24/2021 R51.0 Headache with orthostatic compon ent, not elsewhere classified Angel Vo Cook P.T. 04/17/2021 M54.2 Cervicalgia Angel Vo Cook P .T. 04/17/2021 R51.0 Headache with orthostatic compon ent, not elsewhere classified Angel Vo Cook P.T. 04/10/2021 M54.2 Cervicalgia Angel Vo Cook P .T. 04/10/2021 R51.0 Headache with orthostatic compon ent, not elsewhere classified Angel Vo Cook P.T. 01/16/2021 M54.2 Cervicalgia Angel Vo Cook P .T. 01/16/2021 R51.0 Headache with orthostatic compon ent, not elsewhere classified Angel Vo Sim P.T. 01/09/2021 M54.2 Cervicalgia Angel Vo Sim P .T. 01/09/2021 R51.0 Headache with orthostatic compon ent, not elsewhere classified Angel Vo Sim P.T. 01/02/2021 M54.2 Cervicalgia Angel Vo Cook P .T. 01/02/2021 R51.0 Headache with orthostatic compon ent, not elsewhere classified Angel Vo Sim P.T. 12/26/2020 M54.2 Cervicalgia Angel Vo Cook P .T. 12/26/2020 R51.0 Headache with orthostatic compon ent, not elsewhere classified Angel Vo Sim P.T. 12/19/2020 M54.2 Cervicalgia Angel Vo Cook P .T. 12/19/2020 R51.0 Headache with orthostatic compon ent, not elsewhere classified Angel Vo Sim P.T. Plan of Treatment No Information Available Functional Status Description No Information Available Mental Status Description No Information Available Referrals Refer to Dr Reason for Referral Status Appt Date Sachin Eason MD PT- NECK WRITTEN AUTH PASSED TO PT DEPT. [place] Created [address] [place] [address], [address] [place] [address] [phone] Sachin Eason MD PT- NECK AND HEAD OK TO [facility] 1ST SET TRI AGED PT DEPT. LS Created [address] [facility], [address] [place] [address] [phone]
--- OUTSIDE RECORDS SUMMARY | 2021-07-23 06:09 | CCD | Continuity of Care Document ---
Author Author Guille MONTEMAYOR P.T. Organization Unknown Address [address] [place] [phone] Phone [phone] Care Team Providers Care Division Toll Wire Chief Name Role Phone Lacy Callahan DO AUTM [phone] Problems Description No Information Available Social History Type Date Description Comments Sex Unknown Allergies, Adverse Reactions, Alerts Description No Information Available Medications Description No Information Available Immunizations Description No Information Available Vital Signs Description No Information Available Results Description No Information Available Procedures Date Code Description Status 04/24/2021 99904 Therapeutic Procedure, Each 15 M inutes Completed 04/24/2021 63290 Electrical Stimulati on Manual, Each 15 Min, Constant Attendance Completed 04/24/2021 27605 Manual Therapy Each 15 Minutes C ompleted 04/17/2021 20350 Manual Therapy Each 15 Minutes C ompleted 04/17/2021 43649 Therapeutic Procedure, Each 15 M inutes Completed 04/17/2021 67138 Electrical Stimulati on Manual, Each 15 Min, Constant Attendance Completed 04/10/2021 98240 Re-Eval Of PT Establ ished Plan Of Care 20Mins Face To Face PT/Fam Completed 04/10/2021 32541 Manual Therapy Each 15 Minutes C ompleted 01/16/2021 59800 Therapeutic Procedure, Each 15 M inutes Completed 01/16/2021 09030 Hot Or Cold Packs Completed 01/16/2021 90319 Electrical Stimulati on Manual, Each 15 Min, Constant Attendance Completed 01/16/2021 95668 Manual Therapy Each 15 Minutes C ompleted 01/16/2021 28734 Re-Eval Of PT Establ ished Plan Of Care 20Mins Face To Face PT/Fam Completed 01/09/2021 05596 Manual Therapy Each 15 Minutes C ompleted 01/09/2021 83204 Therapeutic Procedure, Each 15 M inutes Completed 01/09/2021 62765 Hot Or Cold Packs Completed 01/02/2021 72712 Manual Therapy Each 15 Minutes C ompleted 01/02/2021 07071 Hot Or Cold Packs Completed 12/26/2020 17629 Manual Therapy Each 15 Minutes C ompleted 12/26/2020 02000 Hot Or Cold Packs Completed 12/19/2020 02016 Physical Therapy Eval - Mod Comp lexity Completed Medical Devices Description No Information Available Encounters Description No Information Available Assessments Date Code Description Provider 04/24/2021 M54.2 Cervicalgia Angel ParrishMac Montemayor P .T. 04/24/2021 R51.0 Headache with orthostatic compon ent, not elsewhere classified Angel JMac Montemayor P.T. 04/17/2021 M54.2 Cervicalgia Angel JMac Montemayor P .T. 04/17/2021 R51.0 Headache with orthostatic compon ent, not elsewhere classified Angel Montemayor P.T. 04/10/2021 M54.2 Cervicalgia Angel ParrishMac Montemayor P .T. 04/10/2021 R51.0 Headache with orthostatic compon ent, not elsewhere classified Angel FrancoisMac Montemayor P.T. 01/16/2021 M54.2 Cervicalgia Angel Vo Sim P .T. 01/16/2021 R51.0 Headache with orthostatic compon ent, not elsewhere classified Angel Montemayor P.T. 01/09/2021 M54.2 Cervicalgia Angel ParrishMac Montemayor P .T. 01/09/2021 R51.0 Headache with orthostatic compon ent, not elsewhere classified Angel JMac Montemayor P.T. 01/02/2021 M54.2 Cervicalgia Angel JMac Montemayor P .T. 01/02/2021 R51.0 Headache with orthostatic compon ent, not elsewhere classified Angel FrancoisMac Montemayor P.T. 12/26/2020 M54.2 Cervicalgia Angel FrancoisMac Montemayor P .T. 12/26/2020 R51.0 Headache with orthostatic compon ent, not elsewhere classified Angel Montemayor P.T. 12/19/2020 M54.2 Cervicalgia Angel Braun 12/19/2020 R51.0 Headache with orthostatic compon ent, not elsewhere classified Angel Montemayor P.T. Plan of Treatment Future Appointment(s):* 05/08/2021 4:00 pm - Angel Montemayor P.T. at Physical Therapy Referral * 05/01/2021 4:00 pm - Angel Montemayor P.T. at Physical Therapy Referral Functional Status Description No Information Available Mental Status Description No Information Available Referrals Refer to Dr Reason for Referral Status Appt Date Sachin Eason MD PT- NECK WRITTEN AUTH PASSED TO PT DEPT. Created [address] [place] [phone] Sachin Eason MD PT- NECK AND HEAD OK TO [facility] 1ST SET TRI AGED PT DEPT. Created [address] [place] [phone]
--- OUTSIDE RECORDS SUMMARY | 2021-07-23 06:09 | CCD ---
Author Organization Unknown Address [address] [place] [address] Phone [phone] Care Team Providers Care Power Shovel Engineer Name Role Phone MAYURI LOCKWOOD MD 3 [phone] ADAMARIS 1 [phone] Allergies Code Code System Name Reaction Severity Status Onset [id number] RxNorm Invokana Anaphylaxis Severe Active Medications Name Status Start Date Stop Date acetaminophen 300 mg-codeine 30 mg table t as needed Completed 04/03/2019 11/27/2020 Ajovy Syringe 225 mg/1.5 mL subcutaneous INJECT 1.5ML UNDER THE SKIN MONTHLY Active Not available albuterol sulfate HFA 90 mcg/actuation aerosol inhaler Active Not available allopurinol 100 mg tablet Completed 2020 allopurinol 300 mg tablet Active Not av ailable amoxicillin 875 mg-potassium clavulanate 125 mg tablet Completed 07/03/2020 aspirin 325 mg tablet Take 1 tablet every day by oral route. Active Not available carvedilol 3.125 mg tablet Completed 07/03 carvedilol 6.25 mg tablet Active Not av ailable diazepam 2 mg tablet one by mouth once daily as needed Active Not a vailable dicyclomine 10 mg capsule as needed Active Not available divalproex 250 mg tablet,delayed release Completed 07/03/2020 divalproex 500 mg tablet,delayed release Completed 08/06/2020 divalproex ER 250 mg tablet,extended rel ease 24 hr TAKE ONE TABLET BY MOUTH TWICE A DAY Active No t available doxycycline hyclate 100 mg tablet Completed 07/03/2020 duloxetine 30 mg capsule,delayed release TAKE ONE CAPSULE BY MOUTH EVERY DAY Completed Flucelvax Quad 0827-5406 60 mcg (15 mcg x 4)/0.5 mL IM suspensio n Completed 11/27/2020 Flucelvax Quad 60 mcg (15 mcg x 4)/0.5 mL intramuscular susp INJECT 0.5ML DIRECTED Completed 11/27/2020 Fluzone Quad (PF) 60 mcg (15 m cg x 4)/0.5 mL IM syringe INJECT INTRAMUSCULARLY IN THE LEFT ARM Completed 11/27/2020 glyburide 2.5 mg tablet Active Not avai [...] ER 500 mg tablet,extended release 24 hr Completed 01/16/2021 metoclopramide 10 mg tablet Completed 11/03 naproxen 250 mg tablet as needed Completed 07/03/2020 nortriptyline 50 mg capsule Completed 03/07 nortriptyline 75 mg capsule TAKE ONE CAPSULE BY MOUTH EVERY DAY Active Not available Novolog Flexpen U-100 Insulin aspart 100 unit/mL (3 mL) subcutan eous Active Not available ondansetron [address] ONE TABLET BY MOUTH THREE TIMES A DAY FOR 7 DAYS Completed 04/10/2021 ondansetron 8 mg disintegrating tablet Active Not available ondansetron HCl 4 mg tablet TAKE ONE TABLET BY MOUTH EVERY 6 TO 8 HOURS NEEDED FOR NAUSEA AND VOMITING Active Not available ondansetron HCl 8 mg tablet Completed 06/06 oseltamivir 75 mg capsule Completed 2020 Pneumovax-23 25 mcg/0.5 mL injection syringe Completed 08/06/2020 Prevnar 13 (PF) 0.5 mL intramuscular syringe Completed 04/03/2019 simvastatin 20 mg tablet one by mouth once daily Completed 08/06/2020 simvastatin 40 mg tablet Active Not suzanne ilable sumatriptan 25 mg tablet Completed 020 sumatriptan 50 mg tablet TAKE ONE TABLET BY MOUTH AT LEAST 2 HOURS BETWEEN DOSES NEEDED TWO TIMES A DAY Active Not available Suprep Bowel Prep Kit 17.5 gram-3.13 gram-1.6 gram oral solution Completed 04/03/2019 topiramate 25 mg tablet TAKE ONE TABLET BY MOUTH TWICE A DAY DIRECTED Completed 01/16/2021 topiramate 50 mg tablet TAKE ONE TABLET BY MOUTH TWICE A DAY Active No t available Tresiba FlexTouch U-200 insulin 200 unit/mL (3 mL) subcutaneous pen Active Not available Trulicity 1.5 mg/0.5 mL subcutaneous pen injector Active Not available Trulicity 3 mg/0.5 mL subcutaneous pen injector Active Not available Vascepa 1 gram capsule Active Not avail able zonisamide 25 mg capsule Completed 019 zonisamide 50 mg capsule as needed Completed 11/14/2020 Problems None recorded. Procedures Date Name Performed by Back Surgery Notes: 2006 Information not available Incision of Adrenal Gland Information no t available Appendectomy Information not avai lable Results Lab Results Date Name Specimen Result Interpretation Description Value Range Status Address 12/01/2020 [facility] P[facility] Report NOS No observation recorded. [facility]: [address] [facility], [place] 12/01/2020 SARS CoV 2 RNA (COVID-19), QL, locator-PCR, Respirat ory Specimen NOS Normal Sars-cov-2 negative negative Final [facility]: [address] [facility], [place] 09/08/2020 [facility] Pdf Report NOS No observation recorded. [facility]: [address] [facility] [place] 09/08/2020 SARS CoV 2 RNA (COVID-19), QL, locator-PCR, Respirat ory Specimen NOS Normal Sars-cov-2 negative negative Final [facility]: [address] [facility] [place] 08/13/2020 [facility] Pdf Report NOS No observation recorded. [facility]: [address] [facility], [place] 08/13/2020 SARS CoV 2 RNA (COVID-19), QL, locator-PCR, Respirat ory Specimen NOS Normal Sars-cov-2 negative negative Final [facility]: [address] [facility] [place] 06/16/2020 [facility] Pdf Report NOS No observation recorded. [facility]: [address] [facility] [place] 06/16/2020 SARS CoV 2 RNA (COVID-19), QL, locator-PCR, Respirat ory Specimen NOS Normal Sars-cov-2 negative negative Final [facility]: [address] [facility] 06/02/2020 SARS CoV 2 RNA (COVID-19), QL, locator-PCR, Respiratory Specim en No observation recorded. [facility]: [address] [facility] [place] Past Encounters 05/05/2021 Cervical Spondylosis without Myelopathy; Cervicogenic Headache; Cervical Radiculopathy; Displacement of Cervical Intervertebral Disc without Myelopathy; Degeneration of Cervical Intervertebral Disc; Lumbar Post-laminectomy Syndrome; Degeneration of Lumbar Intervertebral Disc; Degeneration of Lumbosacral Intervertebral Disc; Displacement of Lumbar Intervertebral Disc without Myelopathy; Intervertebral Disc Disorder; Spondylosis without Myelopathy; Lumbosacral Spondylosis without Myelopathy; Lumbar Radiculopathy; Cervico- occipital Neuralgia Nyla Boland GAS COMPRESSOR TURBINE OPERATOR: [id number] [address], Ph. 04/10/2021 Cervical Spondylosis without Myelopathy; Cervicogenic Headache; Cervical Radiculopathy; Displacement of Cervical Intervertebral Disc without Myelopathy; Degeneration of Cervical Intervertebral Disc; Lumbar Post-laminectomy Syndrome; Degeneration of Lumbar Intervertebral Disc; Degeneration of Lumbosacral Intervertebral Disc; Displacement of Lumbar Intervertebral Disc without Myelopathy; Intervertebral Disc Disorder; Spondylosis without Myelopathy; Lumbosacral Spondylosis without Myelopathy; Lumbar Radiculopathy; Cervico- occipital Neuralgia Nyla Boland GAS COMPRESSOR TURBINE OPERATOR: [id number] [address], Ph. 02/13/2021 Cervical Spondylosis without Myelopathy; Cervicogenic Headache; Cervical Radiculopathy; Displacement of Cervical Intervertebral Disc without Myelopathy; Degeneration of Cervical Intervertebral Disc; Lumbar Post-laminectomy Syndrome; Degeneration of Lumbar Intervertebral Disc; Degeneration of Lumbosacral Intervertebral Disc; Displacement of Lumbar Intervertebral Disc without Myelopathy; Intervertebral Disc Disorder; Spondylosis without Myelopathy; Lumbosacral Spondylosis without Myelopathy; Lumbar Radiculopathy; Cervico- occipital Neuralgia Nyla Boland GAS COMPRESSOR TURBINE OPERATOR: [address] [facility] [address] [address], Ph. 01/26/2021 Cervico-occipital Neuralgia; Cervical Spondylosis without Myelopathy; Cervicogenic Headache; Cervical Radiculopathy; Displacement of Cervical Intervertebral Disc without Myelopathy; Degeneration of Cervical Intervertebral Disc; Lumbar Post-laminectomy Syndrome; Degeneration of Lumbar Intervertebral Disc; Degeneration of Lumbosacral Intervertebral Disc; Displacement of Lumbar Intervertebral Disc without Myelopathy; Intervertebral Disc Disorder; Spondylosis without Myelopathy; Lumbosacral Spondylosis without Myelopathy; Lumbar Radiculopathy Stephon Cullen MD: [address] [facility], [place] [address], Ph. 01/16/2021 Cervical Spondylosis without Myelopathy; Cervicogenic Headache; Cervical Radiculopathy; Displacement of Cervical Intervertebral Disc without Myelopathy; Degeneration of Cervical Intervertebral Disc; Lumbar Post-laminectomy Syndrome; Degeneration of Lumbar Intervertebral Disc; Degeneration of Lumbosacral Intervertebral Disc; Displacement of Lumbar Intervertebral Disc without Myelopathy; Intervertebral Disc Disorder; Spondylosis without Myelopathy; Lumbosacral Spondylosis without Myelopathy; Lumbar Radiculopathy; Cervico- occipital Neuralgia Nyla Boland NP: [id number] [address], [place] [address], Ph. 12/19/2020 Cervical Spondylosis without Myelopathy; Cervicogenic Headache; Cervical Radiculopathy; Displacement of Cervical Intervertebral Disc without Myelopathy; Degeneration of Cervical Intervertebral Disc; Lumbar Post-laminectomy Syndrome; Degeneration of Lumbar Intervertebral Disc; Degeneration of Lumbosacral Intervertebral Disc; Displacement of Lumbar Intervertebral Disc without Myelopathy; Intervertebral Disc Disorder; Spondylosis without Myelopathy; Lumbosacral Spondylosis without Myelopathy; Lumbar Radiculopathy Nyla Boland NP: [id number] [facility], [place] [address], Ph. 12/04/2020 Cervical Spondylosis without Myelopathy; Degeneration of Cervical Intervertebral Disc; Displacement of Cervical Intervertebral Disc without Myelopathy; Cervicogenic Headache; Cervical Radiculopathy; Lumbar Post-laminectomy Syndrome; Degeneration of Lumbar Intervertebral Disc; Degeneration of Lumbosacral Intervertebral Disc; Displacement of Lumbar Intervertebral Disc without Myelopathy; Intervertebral Disc Disorder; Spondylosis without Myelopathy; Lumbosacral Spondylosis without Myelopathy; Lumbar Radiculopathy Stephon Cullen MD: [id number] [address], Ph. 12/01/2020 Pre-surgery Testing; Viral Screening Stephon Cullen MD: [id number] [address], Ph. [phone] 11/27/2020 Cervical Spondylosis without Myelopathy; Cervicogenic Headache; Cervical Radiculopathy; Displacement of Cervical Intervertebral Disc without Myelopathy; Degeneration of Cervical Intervertebral Disc; Lumbar Post-laminectomy Syndrome; Degeneration of Lumbar Intervertebral Disc; Degeneration of Lumbosacral Intervertebral Disc; Displacement of Lumbar Intervertebral Disc without Myelopathy; Intervertebral Disc Disorder; Spondylosis without Myelopathy; Lumbosacral Spondylosis without Myelopathy; Lumbar Radiculopathy Nyla Boland NP: [id number] [address], Ph. 11/14/2020 Cervical Spondylosis without Myelopathy; Cervicogenic Headache; Cervical Radiculopathy; Displacement of Cervical Intervertebral Disc without Myelopathy; Degeneration of Cervical Intervertebral Disc; Lumbar Post-laminectomy Syndrome; Degeneration of Lumbar Intervertebral Disc; Degeneration of Lumbosacral Intervertebral Disc; Displacement of Lumbar Intervertebral Disc without Myelopathy; Intervertebral Disc Disorder; Spondylosis without Myelopathy; Lumbosacral Spondylosis without Myelopathy; Lumbar Radiculopathy Nyla Boland NP: [id number] [address], Ph. 09/26/2020 Cervical Spondylosis without Myelopathy; Cervicogenic Headache; Cervical Radiculopathy; Displacement of Cervical Intervertebral Disc without Myelopathy; Degeneration of Cervical Intervertebral Disc; Lumbar Post-laminectomy Syndrome; Degeneration of Lumbar Intervertebral Disc; Degeneration of Lumbosacral Intervertebral Disc; Displacement of Lumbar Intervertebral Disc without Myelopathy; Intervertebral Disc Disorder; Spondylosis without Myelopathy; Lumbosacral Spondylosis without Myelopathy; Lumbar Radiculopathy Nyla Boland, URBANO: [id number] [facility], [place] [address], Ph. 09/11/2020 Lumbar Post-laminectomy Syndrome; Lumbar Radiculopathy; Degeneration of Lumbar Intervertebral Disc; Degeneration of Lumbosacral Intervertebral Disc; Displacement of Lumbar Intervertebral Disc without Myelopathy; Intervertebral Disc Disorder; Spondylosis without Myelopathy; Lumbosacral Spondylosis without Myelopathy; Cervical Radiculopathy; Degeneration of Cervical Intervertebral Disc; Displacement of Cervical Intervertebral Disc without Myelopathy; Cervical Spondylosis without Myelopathy; Cervicogenic Headache Stephon Cullen MD: [address] [address], [facility] [place] [address], Ph. 09/08/2020 Pre-surgery Testing; Viral Screening Stephon Cullen MD: [id number] [place] [address], Ph. [phone] 08/18/2020 Lumbar Post-laminectomy Syndrome; Lumbar Radiculopathy; Degeneration of Lumbar Intervertebral Disc; Degeneration of Lumbosacral Intervertebral Disc; Displacement of Lumbar Intervertebral Disc without Myelopathy; Intervertebral Disc Disorder; Spondylosis without Myelopathy; Lumbosacral Spondylosis without Myelopathy; Cervical Radiculopathy; Degeneration of Cervical Intervertebral Disc; Displacement of Cervical Intervertebral Disc without Myelopathy; Cervical Spondylosis without Myelopathy; Cervicogenic Headache Stephon Cullen MD: [address] [address], [facility] [address], Ph. 08/13/2020 Pre-surgery Testing; Viral Screening Stephon Cullen MD: [address] [address], [facility] [address], Ph. [phone] 08/06/2020 Cervical Spondylosis without Myelopathy; Cervicogenic Headache; Cervical Radiculopathy; Displacement of Cervical Intervertebral Disc without Myelopathy; Degeneration of Cervical Intervertebral Disc; Lumbar Post-laminectomy Syndrome; Degeneration of Lumbar Intervertebral Disc; Degeneration of Lumbosacral Intervertebral Disc; Displacement of Lumbar Intervertebral Disc without Myelopathy; Intervertebral Disc Disorder; Spondylosis without Myelopathy; Lumbosacral Spondylosis without Myelopathy; Lumbar Radiculopathy Nyla Boland, GAS COMPRESSOR TURBINE OPERATOR: [address] [facility] [address], [facility] [address], Ph. 07/03/2020 Cervical Spondylosis without Myelopathy; Cervicogenic Headache; Cervical Radiculopathy; Displacement of Cervical Intervertebral Disc without Myelopathy; Degeneration of Cervical Intervertebral Disc; Low Back Pain; Lumbar Post- laminectomy Syndrome; Degeneration of Lumbar Intervertebral Disc; Degeneration of Lumbosacral Intervertebral Disc; Displacement of Lumbar Intervertebral Disc without Myelopathy; Intervertebral Disc Disorder; Spondylosis without Myelopathy; Lumbosacral Spondylosis without Myelopathy Nyla Boland, GAS COMPRESSOR TURBINE OPERATOR: [address] [address], [place] [address], Ph. 06/20/2020 Cervical Radiculopathy; Displacement of Cervical Intervertebral Disc without Myelopathy; Degeneration of Cervical Intervertebral Disc; Cervical Spondylosis without Myelopathy; Cervicogenic Headache; Low Back Pain Stephon Cullen MD: [id number] [address], [place] [address], Ph. 06/16/2020 Pre-surgery Testing; Viral Screening Stephon Cullen MD: [address] [address], [facility] [address], Ph. [phone] 06/06/2020 Cervical Radiculopathy; Displacement of Cervical Intervertebral Disc without Myelopathy; Degeneration of Cervical Intervertebral Disc; Cervical Spondylosis without Myelopathy; Cervicogenic Headache; Low Back Pain Stephon Cullen MD: [address] [address], [place] [address], Ph. 06/02/2020 Pre-surgery Testing; Viral Screening Stephon Cullen MD: [address] [address], [place] [address], Ph. [phone] 05/23/2020 Cervical Spondylosis without Myelopathy; Cervicogenic Headache; Cervical Radiculopathy; Displacement of Cervical Intervertebral Disc without Myelopathy; Degeneration of Cervical Intervertebral Disc; Low Back Pain Nyla Boland NP: [id number] [facility] [address] [place] [address], Ph. 08/10/2019 Cervical Spondylosis without Myelopathy; Cervicogenic Headache; Cervical Radiculopathy; Displacement of Cervical Intervertebral Disc without Myelopathy; Degeneration of Cervical Intervertebral Disc Nyla Boland, GAS COMPRESSOR TURBINE OPERATOR: [address] [facility] [address], [facility] [address], Ph. 06/15/2019 Cervical Spondylosis without Myelopathy; Cervicogenic Headache; Cervical Radiculopathy; Displacement of Cervical Intervertebral Disc without Myelopathy; Degeneration of Cervical Intervertebral Disc Nyla Boland, GAS COMPRESSOR TURBINE OPERATOR: [address] [facility] [address], [facility] [address], Ph. 05/25/2019 Cervical Radiculopathy; Displacement of Cervical Intervertebral Disc without Myelopathy; Degeneration of Cervical Intervertebral Disc; Cervicogenic Headache; Cervical Spondylosis without Myelopathy Stephon Cullen MD: [address] [facility] [address], [facility] [address], Ph. 05/11/2019 Cervical Radiculopathy; Displacement of Cervical Intervertebral Disc without Myelopathy; Degeneration of Cervical Intervertebral Disc; Cervicogenic Headache; Cervical Spondylosis without Myelopathy Stephon Cullen MD: [address] [facility], [facility] [address], Ph. 04/27/2019 Cervical Radiculopathy; Displacement of Cervical Intervertebral Disc without Myelopathy; Degeneration of Cervical Intervertebral Disc; Cervicogenic Headache; Cervical Spondylosis without Myelopathy Stephon Cullen MD: [address] [facility] [address], [facility] [address], Ph. 04/13/2019 Cervical Spondylosis without Myelopathy; Cervicogenic Headache; Cervical Radiculopathy; Displacement of Cervical Intervertebral Disc without Myelopathy; Degeneration of Cervical Intervertebral Disc Nyla Boland, GAS COMPRESSOR TURBINE OPERATOR: [address] [facility] [address], [facility] [address], Ph. 04/03/2019 Cervical Spondylosis without Myelopathy; Cervicogenic Headache Stephon Cullen MD: [address], [place] [address], Ph. Social History Tobacco Smoking Status Never Smoker Vaccine List None recorded. Plan of Care Reminders Provider Appointments None recorded. Lab None recorded. Referral None recorded. Procedures None recorded. Surgeries None recorded. Imaging None recorded. Vitals 05/05/2021 10:45AM FOLLOW-UP Height Blood Pressure 5 ft 11 in 128/74 mm[Hg] 04/10/2021 11:15AM FOLLOW-UP Height Blood Pressure 5 ft 11 in 131/74 mm[Hg] 02/13/2021 10:45AM FOLLOW-UP Height Blood Pressure 5 ft 11 in 127/74 mm[Hg] 01/16/2021 10:15AM FOLLOW-UP Height Blood Pressure 5 ft 11 in 158/90 mm[Hg] 12/19/2020 09:15AM FOLLOW-UP Height Blood Pressure 5 ft 11 in 134/68 mm[Hg] 11/27/2020 01:45PM FOLLOW-UP Height Blood Pressure 5 ft 11 in 147/74 mm[Hg] 11/14/2020 09:00AM FOLLOW-UP Height Blood Pressure 5 ft 11 in 162/78 mm[Hg] 09/26/2020 09:00AM FOLLOW-UP Height Blood Pressure 5 [...]
--- OUTSIDE RECORDS SUMMARY | 2021-07-23 06:09 | CCD | Continuity of Care Document ---
Author Author Guille MONTEMAYOR P.T[facility] Organization Unknown Address [address] [place] [address] Phone [phone] Care Team Providers Care Network And Threat Support Specialist Name Role Phone Lacy Callahan DO AUTM [phone] Problems Description No Information Available Social History Type Date Description Comments Sex Unknown Allergies, Adverse Reactions, Alerts Description No Information Available Medications Description No Information Available Immunizations Description No Information Available Vital Signs Description No Information Available Results Description No Information Available Procedures Date Code Description Status 04/24/2021 44655 Therapeutic Procedure, Each 15 M inutes Completed 04/24/2021 23636 Electrical Stimulati on Manual, Each 15 Min, Constant Attendance Completed 04/24/2021 36394 Manual Therapy Each 15 Minutes C ompleted 04/17/2021 02349 Manual Therapy Each 15 Minutes C ompleted 04/17/2021 91732 Therapeutic Procedure, Each 15 M inutes Completed 04/17/2021 10517 Electrical Stimulati on Manual, Each 15 Min, Constant Attendance Completed 04/10/2021 17884 Re-Eval Of PT Establ ished Plan Of Care 20Mins Face To Face PT/Fam Completed 04/10/2021 36275 Manual Therapy Each 15 Minutes C ompleted 01/16/2021 34613 Therapeutic Procedure, Each 15 M inutes Completed 01/16/2021 73323 Hot Or Cold Packs Completed 01/16/2021 65178 Electrical Stimulati on Manual, Each 15 Min, Constant Attendance Completed 01/16/2021 99295 Manual Therapy Each 15 Minutes C ompleted 01/16/2021 97676 Re-Eval Of PT Establ ished Plan Of Care 20Mins Face To Face PT/Fam Completed 01/09/2021 48083 Manual Therapy Each 15 Minutes C ompleted 01/09/2021 35438 Therapeutic Procedure, Each 15 M inutes Completed 01/09/2021 99660 Hot Or Cold Packs Completed 01/02/2021 45287 Manual Therapy Each 15 Minutes C ompleted 01/02/2021 92546 Hot Or Cold Packs Completed 12/26/2020 98372 Manual Therapy Each 15 Minutes C ompleted 12/26/2020 13692 Hot Or Cold Packs Completed 12/19/2020 17805 Physical Therapy Eval - Mod Comp lexity [...] WRITTEN AUTH PASSED TO PT DEPT. Created [address] [place] [address] [phone] Sachin Eason MD PT- NECK AND HEAD OK TO [facility] 1ST SET TRI AGED PT DEPT. Created [address] [place] [address] [phone]
--- OUTSIDE RECORDS SUMMARY | 2021-07-23 06:09 | CCD | Continuity of Care Document ---
Author Author Guille MONTEMAYOR P.T. Organization Unknown Address [address] [place] [address] Phone [phone] Care Team Providers Care Breakdown Man Name Role Phone Lacy Callahan DO AUTM [phone] Problems Description No Information Available Social History Type Date Description Comments Sex Unknown Allergies, Adverse Reactions, Alerts Description No Information Available Medications Description No Information Available Immunizations Description No Information Available Vital Signs Description No Information Available Results Description No Information Available Procedures Date Code Description Status 05/08/2021 73584 Therapeutic Procedure, Each 15 M inutes Completed 05/08/2021 72314 Electrical Stimulati on Manual, Each 15 Min, Constant Attendance Completed 05/08/2021 89782 Hot Or Cold Packs Completed 05/08/2021 67879 Manual Therapy Each 15 Minutes C ompleted 05/01/2021 75138 Manual Therapy Each 15 Minutes C ompleted 05/01/2021 52512 Therapeutic Procedure, Each 15 M inutes Completed 05/01/2021 62318 Electrical Stimulati on Manual, Each 15 Min, Constant Attendance Completed 05/01/2021 53088 Hot Or Cold Packs Completed 04/24/2021 16326 Manual Therapy Each 15 Minutes C ompleted 04/24/2021 78838 Therapeutic Procedure, Each 15 M inutes Completed 04/24/2021 30779 Electrical Stimulati on Manual, Each 15 Min, Constant Attendance Completed 04/17/2021 14043 Manual Therapy Each 15 Minutes C ompleted 04/17/2021 80652 Therapeutic Procedure, Each 15 M inutes Completed 04/17/2021 39776 Electrical Stimulati on Manual, Each 15 Min, Constant Attendance Completed 04/10/2021 56215 Re-Eval Of PT Establ ished Plan Of Care 20Mins Face To Face PT/Fam Completed 04/10/2021 57058 Manual Therapy Each 15 Minutes C ompleted 01/16/2021 28471 Re-Eval Of PT Establ ished Plan Of Care 20Mins Face To Face PT/Fam Completed 01/16/2021 05156 Manual Therapy Each 15 Minutes C ompleted 01/16/2021 19901 Therapeutic Procedure, Each 15 M inutes Completed 01/16/2021 27073 Electrical Stimulati on Manual, Each 15 Min, Constant Attendance Completed 01/16/2021 33624 Hot Or Cold Packs Completed 01/09/2021 36570 Manual Therapy Each 15 Minutes C ompleted 01/09/2021 14033 Therapeutic Procedure, Each 15 M inutes Completed 01/09/2021 84640 Hot Or Cold Packs Completed 01/02/2021 16523 Manual Therapy Each 15 Minutes C ompleted 01/02/2021 77339 Hot Or Cold Packs Completed 12/26/2020 02192 Manual Therapy Each 15 Minutes C ompleted 12/26/2020 99741 Hot Or Cold Packs Completed 12/19/2020 72085 Physical Therapy Eval - Mod Comp lexity Completed Medical Devices Description No Information Available Encounters Description No Information Available Assessments Date Code Description Provider 05/08/2021 M54.2 Cervicalgia Angel Montemayor P .T. 05/08/2021 R51.0 Headache with orthostatic compon ent, not elsewhere classified Angel Montemayor P.TMac 05/01/2021 M54.2 Cervicalgia Angel Montemayor P .T. 05/01/2021 R51.0 Headache with orthostatic compon ent, not elsewhere classified Angel Montemayor P.T. 04/24/2021 M54.2 Cervicalgia Angel Montemayor P .T. 04/24/2021 R51.0 Headache with orthostatic compon ent, not elsewhere classified Angel Montemayor P.T. 04/17/2021 M54.2 Cervicalgia Angel Montemayor P .T. 04/17/2021 R51.0 Headache with orthostatic compon ent, not elsewhere classified Angel Montemayor P.T. 04/10/2021 M54.2 Cervicalgia Angel Montemayor P .T. 04/10/2021 R51.0 Headache with orthostatic compon ent, not elsewhere classified Angel Vo Sim P.T. 01/16/2021 M54.2 Cervicalgia Angel Vo Sim P .T. 01/16/2021 R51.0 Headache with orthostatic compon ent, not elsewhere classified Angel Vo Sim P.T. 01/09/2021 M54.2 Cervicalgia Angel Vo Sim P .T. 01/09/2021 R51.0 Headache with orthostatic compon ent, not elsewhere classified Angel Vo Sim P.T. 01/02/2021 M54.2 Cervicalgia Angel Vo Sim P .T. 01/02/2021 R51.0 Headache with orthostatic compon ent, not elsewhere classified Angel Vo Sim P.T. 12/26/2020 M54.2 Cervicalgia Angel Vo Sim P .T. 12/26/2020 R51.0 Headache with orthostatic compon ent, not elsewhere classified Angel Vo Sim P.T. 12/19/2020 M54.2 Cervicalgia Angel Vo Sim P .T. 12/19/2020 R51.0 Headache with orthostatic compon ent, not elsewhere classified Angel Vo Sim P.T. Plan of Treatment No Information Available Functional Status Description No Information Available Mental Status Description No Information Available Referrals Refer to Dr Reason for Referral Status Appt Date Sachin Eason MD PT- NECK WRITTEN AUTH PASSED TO PT DEPT. [place] Created [address] [place] [address] [phone] Sachin Eason MD PT- NECK AND HEAD OK TO [facility] 1ST SET TRI AGED PT DEPT. [place] Created [address] [place] [phone]
--- OUTSIDE RECORDS SUMMARY | 2021-07-23 06:09 | CCD | Continuity of Care Document ---
Author Author Guille MONTEMAYOR P.T. Organization Unknown Address [address] [place] [address] Phone [phone] Care Team Providers Care Appliance Assembler Name Role Phone Lacy Callahan DO AUTM [phone] Problems Description No Information Available Social History Type Date Description Comments Sex Unknown Allergies, Adverse Reactions, Alerts Description No Information Available Medications Description No Information Available Immunizations Description No Information Available Vital Signs Description No Information Available Results Description No Information Available Procedures Date Code Description Status 05/15/2021 30533 Therapeutic Procedure, Each 15 M inutes Completed 05/15/2021 72427 Manual Therapy Each 15 Minutes C ompleted 05/15/2021 91283 Hot Or Cold Packs Completed 05/15/2021 65540 Electrical Stimulati on Manual, Each 15 Min, Constant Attendance Completed 05/08/2021 04876 Manual Therapy Each 15 Minutes C ompleted 05/08/2021 59109 Therapeutic Procedure, Each 15 M inutes Completed 05/08/2021 39035 Electrical Stimulati on Manual, Each 15 Min, Constant Attendance Completed 05/08/2021 99975 Hot Or Cold Packs Completed 05/01/2021 20214 Manual Therapy Each 15 Minutes C ompleted 05/01/2021 65500 Therapeutic Procedure, Each 15 M inutes Completed 05/01/2021 50858 Electrical Stimulati on Manual, Each 15 Min, Constant Attendance Completed 05/01/2021 89773 Hot Or Cold Packs Completed 04/24/2021 47748 Manual Therapy Each 15 Minutes C ompleted 04/24/2021 96516 Therapeutic Procedure, Each 15 M inutes Completed 04/24/2021 88340 Electrical Stimulati on Manual, Each 15 Min, Constant Attendance Completed 04/17/2021 26602 Electrical Stimulati on Manual, Each 15 Min, Constant Attendance Completed 04/17/2021 03601 Therapeutic Procedure, Each 15 M inutes Completed 04/17/2021 48424 Manual Therapy Each 15 Minutes C ompleted 04/10/2021 02727 Re-Eval Of PT Establ ished Plan Of Care 20Mins Face To Face PT/Fam Completed 04/10/2021 38841 Manual Therapy Each 15 Minutes C ompleted 01/16/2021 76800 Re-Eval Of PT Establ ished Plan Of Care 20Mins Face To Face PT/Fam Completed 01/16/2021 72272 Manual Therapy Each 15 Minutes C ompleted 01/16/2021 26354 Therapeutic Procedure, Each 15 M inutes Completed 01/16/2021 18423 Electrical Stimulati on Manual, Each 15 Min, Constant Attendance Completed 01/16/2021 76478 Hot Or Cold Packs Completed 01/09/2021 28940 Manual Therapy Each 15 Minutes C ompleted 01/09/2021 87529 Therapeutic Procedure, Each 15 M inutes Completed 01/09/2021 65247 Hot Or Cold Packs Completed 01/02/2021 27045 Manual Therapy Each 15 Minutes C ompleted 01/02/2021 58753 Hot Or Cold Packs Completed 12/26/2020 35176 Manual Therapy Each 15 Minutes C ompleted 12/26/2020 90319 Hot Or Cold Packs Completed 12/19/2020 88359 Physical Therapy Eval - Mod Comp lexity [...] AUTH PASSED [place] DEPT. [place] Created [address] [place] [address], [address] [place] [address] [phone] Sachin Eason MD PT- NECK AND HEAD OK TO [facility] 1ST SET TRI AGED PT DEPT. LS Created [address] [facility], [address] [place] [address] [phone]
--- OUTSIDE RECORDS SUMMARY | 2021-07-23 06:09 | CCD | Continuity of Care Document ---
Author Author Guille SEALS DPT Organization Unknown Address [address] [place] [address] Phone [phone] Care Team Providers Care On Awake Counselor Name Role Phone Lacy Callahan DO AUTM [phone] Problems Description No Information Available Social History Type Date Description Comments Sex Unknown Allergies and adverse reactions Description No Information Available Medications Description No Information Available Immunizations Description No Information Available Vital Signs Description No Information Available Results Description No Information Available Procedures Date Code Description Status 07/20/2021 98508 Therapeutic Procedure, Each 15 M inutes Completed 07/20/2021 36898 Electrical Stimulati on Manual, Each 15 Min, Constant Attendance Completed 07/20/2021 00188 Hot Or Cold Packs Completed 07/20/2021 46961 Manual Therapy Each 15 Minutes C ompleted 07/16/2021 31602 Manual Therapy Each 15 Minutes C ompleted 07/16/2021 92954 Therapeutic Procedure, Each 15 M inutes Completed 07/16/2021 46678 Electrical Stimulati on Manual, Each 15 Min, Constant Attendance Completed 07/16/2021 58103 Hot Or Cold Packs Completed 07/10/2021 84438 Manual Therapy Each 15 Minutes C ompleted 07/10/2021 53828 Hot Or Cold Packs Completed 07/10/2021 93295 Electrical Stimulati on Manual, Each 15 Min, Constant Attendance Completed 07/10/2021 37482 Re-Eval Of PT Establ ished Plan Of Care 20Mins Face To Face PT/Fam Completed 05/15/2021 28354 Manual Therapy Each 15 Minutes C ompleted 05/15/2021 45429 Therapeutic Procedure, Each 15 M inutes Completed 05/15/2021 20210 Electrical Stimulati on Manual, Each 15 Min, Constant Attendance Completed 05/15/2021 94623 Hot Or Cold Packs Completed 05/08/2021 11593 Manual Therapy Each 15 Minutes C ompleted 05/08/2021 14786 Hot Or Cold Packs Completed 05/08/2021 00988 Electrical Stimulati on Manual, Each 15 Min, Constant Attendance Completed 05/08/2021 58197 Therapeutic Procedure, Each 15 M inutes Completed 05/01/2021 38166 Manual Therapy Each 15 Minutes C ompleted 05/01/2021 77919 Therapeutic Procedure, Each 15 M inutes Completed 05/01/2021 31558 Electrical Stimulati on Manual, Each 15 Min, Constant Attendance Completed 05/01/2021 84855 Hot Or Cold Packs Completed 04/24/2021 55697 Manual Therapy Each 15 Minutes C ompleted 04/24/2021 80971 Therapeutic Procedure, Each 15 M inutes Completed 04/24/2021 77644 Electrical Stimulati on Manual, Each 15 Min, Constant Attendance Completed 04/17/2021 56260 Manual Therapy Each 15 Minutes C ompleted 04/17/2021 25975 Therapeutic Procedure, Each 15 M inutes Completed 04/17/2021 66906 Electrical Stimulati on Manual, Each 15 Min, Constant Attendance Completed 04/10/2021 06283 Re-Eval Of PT Establ ished Plan Of Care 20Mins Face To Face PT/Fam Completed 04/10/2021 57070 Manual Therapy Each 15 Minutes C ompleted [...] PASSED TO PT DEPT. LS Created [address] [place] [phone] Sachin Eason MD PT- NECK WRITTEN AUTH PASSED TO PT DEPT. LS Created [address] [place] [address] [phone]
--- OUTSIDE RECORDS SUMMARY | 2021-07-23 06:09 | CCD | Continuity of Care Document ---
Author Author Guille MONTEMAYOR P.T. Organization Unknown Address [address] [place] [address] Phone [phone] Care Team Providers Care Costing Manager Name Role Phone Lacy Callahan DO AUTM [phone] Problems Description No Information Available Social History Type Date Description Comments Sex Unknown Allergies, Adverse Reactions, Alerts Description No Information Available Medications Description No Information Available Immunizations Description No Information Available Vital Signs Description No Information Available Results Description No Information Available Procedures Date Code Description Status 05/01/2021 31583 Therapeutic Procedure, Each 15 M inutes Completed 05/01/2021 41958 Electrical Stimulati on Manual, Each 15 Min, Constant Attendance Completed 05/01/2021 38900 Hot Or Cold Packs Completed 05/01/2021 99610 Manual Therapy Each 15 Minutes C ompleted 04/24/2021 30374 Manual Therapy Each 15 Minutes C ompleted 04/24/2021 61368 Therapeutic Procedure, Each 15 M inutes Completed 04/24/2021 37045 Electrical Stimulati on Manual, Each 15 Min, Constant Attendance Completed 04/17/2021 98693 Manual Therapy Each 15 Minutes C ompleted 04/17/2021 16647 Therapeutic Procedure, Each 15 M inutes Completed 04/17/2021 47006 Electrical Stimulati on Manual, Each 15 Min, Constant Attendance Completed 04/10/2021 21083 Re-Eval Of PT Establ ished Plan Of Care 20Mins Face To Face PT/Fam Completed 04/10/2021 26959 Manual Therapy Each 15 Minutes C ompleted 01/16/2021 82761 Re-Eval Of PT Establ ished Plan Of Care 20Mins Face To Face PT/Fam Completed 01/16/2021 17963 Hot Or Cold Packs Completed 01/16/2021 30932 Electrical Stimulati on Manual, Each 15 Min, Constant Attendance Completed 01/16/2021 70590 Therapeutic Procedure, Each 15 M inutes Completed 01/16/2021 75915 Manual Therapy Each 15 Minutes C ompleted 01/09/2021 80013 Manual Therapy Each 15 Minutes C ompleted 01/09/2021 87762 Therapeutic Procedure, Each 15 M inutes Completed 01/09/2021 25169 Hot Or Cold Packs Completed 01/02/2021 09787 Manual Therapy Each 15 Minutes C ompleted 01/02/2021 02726 Hot Or Cold Packs Completed 12/26/2020 25852 Manual Therapy Each 15 Minutes C ompleted 12/26/2020 33589 Hot Or Cold Packs Completed 12/19/2020 93927 Physical Therapy Eval - Mod Comp lexity Completed Medical Devices Description No Information Available Encounters Description No Information Available Assessments Date Code Description Provider 05/01/2021 M54.2 Cervicalgia Angel Montemayor P .T. 05/01/2021 R51.0 Headache with orthostatic compon ent, not elsewhere classified Angel Montemayor P.T. 04/24/2021 M54.2 Cervicalgia Angelmauro Montemayor P .T. 04/24/2021 R51.0 Headache with orthostatic compon ent, not elsewhere classified Angel Montemayor P.T. 04/17/2021 M54.2 Cervicalgia Angel Montemayor P .T. 04/17/2021 R51.0 Headache with orthostatic compon ent, not elsewhere classified Angel Montemayor P.T. 04/10/2021 M54.2 Cervicalgia Angel Montmeayor P .T. 04/10/2021 R51.0 Headache with orthostatic compon ent, not elsewhere classified Angel Montemayor P.T. 01/16/2021 M54.2 Cervicalgia Angel Montemayor P .T. 01/16/2021 R51.0 Headache with orthostatic compon ent, not elsewhere classified Angel Montemayor P.T. 01/09/2021 M54.2 Cervicalgia Angel Montemayor P .T. 01/09/2021 R51.0 Headache with orthostatic compon ent, not elsewhere classified Angel Vo Sim P.T. 01/02/2021 M54.2 Cervicalgia Angel Vo Sim P .T. 01/02/2021 R51.0 Headache with orthostatic compon ent, not elsewhere classified Angel Vo Sim P.T. 12/26/2020 M54.2 Cervicalgia Angel Vo Sim P .T. 12/26/2020 R51.0 Headache with orthostatic compon ent, not elsewhere classified Angel ParrishMac Montemayor P.T. 12/19/2020 M54.2 Cervicalgia Angel Vo Sim P .T. 12/19/2020 R51.0 Headache with orthostatic compon ent, not elsewhere classified Angel [email or web address].Caitlyn Plan of Treatment Future Appointment(s):* 05/15/2021 4:00 pm - Angel Montemayor P.T. at Physical Therapy Referral Functional Status Description No Information Available Mental Status Description No Information Available Referrals Refer to Dr Reason for Referral Status Appt Date Sachin Eason MD PT- NECK WRITTEN AUTH PASSED TO PT DEPT. Created [address] [place] [address] [phone] Sachin Eason MD PT- NECK AND HEAD OK TO [facility] 1ST SET TRI AGED PT DEPT. Created [address] [place] [phone]
--- OUTSIDE RECORDS SUMMARY | 2021-07-23 06:09 | CCD | Continuity of Care Document ---
Author Author Guille MONTEMAYOR P.T. Organization Unknown Address [address] [place] [address] Phone [phone] Care Team Providers Care Production Line Mechanic Name Role Phone Lacy Callahan DO AUTM [phone] Problems Description No Information Available Social History Type Date Description Comments Sex Unknown Allergies, Adverse Reactions, Alerts Description No Information Available Medications Description No Information Available Immunizations Description No Information Available Vital Signs Description No Information Available Results Description No Information Available Procedures Date Code Description Status 04/24/2021 95751 Therapeutic Procedure, Each 15 M inutes Completed 04/24/2021 27444 Electrical Stimulati on Manual, Each 15 Min, Constant Attendance Completed 04/24/2021 08938 Manual Therapy Each 15 Minutes C ompleted 04/17/2021 24580 Manual Therapy Each 15 Minutes C ompleted 04/17/2021 64337 Therapeutic Procedure, Each 15 M inutes Completed 04/17/2021 75610 Electrical Stimulati on Manual, Each 15 Min, Constant Attendance Completed 04/10/2021 01039 Re-Eval Of PT Establ ished Plan Of Care 20Mins Face To Face PT/Fam Completed 04/10/2021 14767 Manual Therapy Each 15 Minutes C ompleted 01/16/2021 91124 Therapeutic Procedure, Each 15 M inutes Completed 01/16/2021 07417 Hot Or Cold Packs Completed 01/16/2021 89296 Electrical Stimulati on Manual, Each 15 Min, Constant Attendance Completed 01/16/2021 71985 Manual Therapy Each 15 Minutes C ompleted 01/16/2021 12781 Re-Eval Of PT Establ ished Plan Of Care 20Mins Face To Face PT/Fam Completed 01/09/2021 55985 Manual Therapy Each 15 Minutes C ompleted 01/09/2021 26949 Therapeutic Procedure, Each 15 M inutes Completed 01/09/2021 06118 Hot Or Cold Packs Completed 01/02/2021 28507 Manual Therapy Each 15 Minutes C ompleted 01/02/2021 58231 Hot Or Cold Packs Completed 12/26/2020 54358 Manual Therapy Each 15 Minutes C ompleted 12/26/2020 06169 Hot Or Cold Packs Completed 12/19/2020 48251 Physical Therapy Eval - Mod Comp lexity [...] WRITTEN AUTH PASSED TO PT DEPT. Created [address] [place] [phone] Sachin Eason MD PT- NECK AND HEAD OK TO [facility] 1ST SET TRI AGED PT DEPT. Created [address] [place] [phone]
--- OUTSIDE RECORDS SUMMARY | 2021-07-23 06:09 | CCD | Continuity of Care Document ---
Author Author Guille MONTEMAYOR P.T. Organization Unknown Address [address] [place] [address] Phone [phone] Care Team Providers Care Pressure Controller Name Role Phone Lacy Callahan DO AUTM [phone] Problems Description No Information Available Social History Type Date Description Comments Sex Unknown Allergies, Adverse Reactions, Alerts Description No Information Available Medications Description No Information Available Immunizations Description No Information Available Vital Signs Description No Information Available Results Description No Information Available Procedures Date Code Description Status 05/15/2021 10231 Therapeutic Procedure, Each 15 M inutes Completed 05/15/2021 87791 Manual Therapy Each 15 Minutes C ompleted 05/15/2021 86655 Hot Or Cold Packs Completed 05/15/2021 02766 Electrical Stimulati on Manual, Each 15 Min, Constant Attendance Completed 05/08/2021 67543 Manual Therapy Each 15 Minutes C ompleted 05/08/2021 24906 Therapeutic Procedure, Each 15 M inutes Completed 05/08/2021 64862 Electrical Stimulati on Manual, Each 15 Min, Constant Attendance Completed 05/08/2021 01263 Hot Or Cold Packs Completed 05/01/2021 96817 Manual Therapy Each 15 Minutes C ompleted 05/01/2021 14184 Therapeutic Procedure, Each 15 M inutes Completed 05/01/2021 40846 Electrical Stimulati on Manual, Each 15 Min, Constant Attendance Completed 05/01/2021 99339 Hot Or Cold Packs Completed 04/24/2021 08212 Manual Therapy Each 15 Minutes C ompleted 04/24/2021 17669 Therapeutic Procedure, Each 15 M inutes Completed 04/24/2021 15131 Electrical Stimulati on Manual, Each 15 Min, Constant Attendance Completed 04/17/2021 06050 Electrical Stimulati on Manual, Each 15 Min, Constant Attendance Completed 04/17/2021 02787 Therapeutic Procedure, Each 15 M inutes Completed 04/17/2021 08025 Manual Therapy Each 15 Minutes C ompleted 04/10/2021 05911 Re-Eval Of PT Establ ished Plan Of Care 20Mins Face To Face PT/Fam Completed 04/10/2021 03981 Manual Therapy Each 15 Minutes C ompleted 01/16/2021 62765 Re-Eval Of PT Establ ished Plan Of Care 20Mins Face To Face PT/Fam Completed 01/16/2021 44306 Manual Therapy Each 15 Minutes C ompleted 01/16/2021 45889 Therapeutic Procedure, Each 15 M inutes Completed 01/16/2021 51617 Electrical Stimulati on Manual, Each 15 Min, Constant Attendance Completed 01/16/2021 66645 Hot Or Cold Packs Completed 01/09/2021 57988 Manual Therapy Each 15 Minutes C ompleted 01/09/2021 94675 Therapeutic Procedure, Each 15 M inutes Completed 01/09/2021 30439 Hot Or Cold Packs Completed 01/02/2021 36610 Manual Therapy Each 15 Minutes C ompleted 01/02/2021 81468 Hot Or Cold Packs Completed 12/26/2020 24869 Manual Therapy Each 15 Minutes C ompleted 12/26/2020 18882 Hot Or Cold Packs Completed 12/19/2020 92748 Physical Therapy Eval - Mod Comp lexity [...] AUTH PASSED [place]PT. [place] Created [address] [place] [address], [address] [place] [address] [phone] Sachin Eason MD PT- NECK AND HEAD OK TO [facility] 1ST SET TRI AGED PT DEPT. LS Created [address] [facility], [address] [place] [address] [phone]
--- OUTSIDE RECORDS SUMMARY | 2021-07-23 06:09 | CCD | Continuity of Care Document ---
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 Role Phone Lacy Callahan DO AUTM [phone] Problems Description No Information Available Social History Type Date Description Comments Sex Unknown Allergies and adverse reactions Description No Information Available Medications Description No Information Available Immunizations Description No Information Available Vital Signs Description No Information Available Results Description No Information Available Procedures Date Code Description Status 07/10/2021 81674 Manual Therapy Each 15 Minutes C ompleted 07/10/2021 83371 Electrical Stimulati on Manual, Each 15 Min, Constant Attendance Completed 07/10/2021 05241 Hot Or Cold Packs Completed 07/10/2021 57133 Re-Eval Of PT Establ ished Plan Of Care 20Mins Face To Face PT/Fam Completed 05/15/2021 55338 Manual Therapy Each 15 Minutes C ompleted 05/15/2021 61311 Therapeutic Procedure, Each 15 M inutes Completed 05/15/2021 15963 Electrical Stimulati on Manual, Each 15 Min, Constant Attendance Completed 05/15/2021 35454 Hot Or Cold Packs Completed 05/08/2021 76586 Therapeutic Procedure, Each 15 M inutes Completed 05/08/2021 29315 Hot Or Cold Packs Completed 05/08/2021 15480 Electrical Stimulati on Manual, Each 15 Min, Constant Attendance Completed 05/08/2021 01282 Manual Therapy Each 15 Minutes C ompleted 05/01/2021 19032 Manual Therapy Each 15 Minutes C ompleted 05/01/2021 23097 Therapeutic Procedure, Each 15 M inutes Completed 05/01/2021 00323 Electrical Stimulati on Manual, Each 15 Min, Constant Attendance Completed 05/01/2021 65901 Hot Or Cold Packs Completed 04/24/2021 86170 Manual Therapy Each 15 Minutes C ompleted 04/24/2021 47543 Electrical Stimulati on Manual, Each 15 Min, Constant Attendance Completed 04/24/2021 10749 Therapeutic Procedure, Each 15 M inutes Completed 04/17/2021 68346 Manual Therapy Each 15 Minutes C ompleted 04/17/2021 87276 Therapeutic Procedure, Each 15 M inutes Completed 04/17/2021 64587 Electrical Stimulati on Manual, Each 15 Min, Constant Attendance Completed 04/10/2021 77390 Re-Eval Of PT Establ ished Plan Of Care 20Mins Face To Face PT/Fam Completed 04/10/2021 49597 Manual Therapy Each 15 Minutes C ompleted 01/16/2021 64619 Re-Eval Of PT Establ ished Plan Of Care 20Mins Face To Face PT/Fam Completed 01/16/2021 18294 Manual Therapy Each 15 Minutes C ompleted 01/16/2021 49291 Therapeutic Procedure, Each 15 M inutes Completed 01/16/2021 64238 Electrical Stimulati on Manual, Each 15 Min, Constant Attendance Completed 01/16/2021 93968 Hot Or Cold Packs Completed 01/09/2021 41180 Manual Therapy Each 15 Minutes C ompleted 01/09/2021 48391 Therapeutic Procedure, Each 15 M inutes Completed 01/09/2021 99292 Hot Or Cold Packs Completed Medical Devices Description No Information Available [...] not elsewhere classified Angel oV Cook P.T. 04/10/2021 M54.2 Cervicalgia Angel Vo Cook P .T. 04/10/2021 R51.0 Headache with orthostatic compon ent, not elsewhere classified Angel Vo Cook P.T. 01/16/2021 M54.2 Cervicalgia Angel Vo Cook P .T. 01/16/2021 R51.0 Headache with orthostatic compon ent, not elsewhere classified Angel Vo Cook P.T. 01/09/2021 M54.2 Cervicalgia Angel Vo Cook P .T. 01/09/2021 R51.0 Headache with orthostatic compon ent, not elsewhere classified Angel Vo Cook P.T. Plan of Treatment Future Appointment(s):* 07/16/2021 10:00 am - George Interiano PT, DPT at Physical Therapy Referral Functional Status Description No Information Available Mental Status Description No Information Available Referrals Refer to Dr Reason for Referral Status Appt Date Sachin Eason MD PT- C SPINE WRITTEN AUTH FOR 12 VISITS 6 WEEKS. PASSED TO PT DEPT. [place] Created [address] [place] [phone] Sachin Eason MD PT- NECK WRITTEN AUTH PASSED TO PT DEPT. [place] Created [address] [place] [phone]
--- OUTSIDE RECORDS SUMMARY | 2021-07-23 06:09 | CCD ---
Continuity of Care Document (CCD) Created on: 04/24/2021 Guille Cotto External Reference #: [id number] : [id number] Sex: Male Author Author Guille MONTEMAYOR P.T. 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 Role Phone Lacy Callahan DO AUTM [phone] Problems Description No Information Available Social History Type Date Description Comments Sex Unknown Allergies, Adverse Reactions, Alerts Description No Information Available Medications Description No Information Available Immunizations Description No Information Available Vital Signs Description No Information Available Results Description No Information Available Procedures Date Code Description Status 04/17/2021 55500 Therapeutic Procedure, Each 15 M inutes Completed 04/17/2021 41401 Electrical Stimulati on Manual, Each 15 Min, Constant Attendance Completed 04/17/2021 53481 Manual Therapy Each 15 Minutes C ompleted 04/10/2021 74395 Re-Eval Of PT Establ ished Plan Of Care 20Mins Face To Face PT/Fam Completed 04/10/2021 14324 Manual Therapy Each 15 Minutes C ompleted 01/16/2021 91197 Hot Or Cold Packs Completed 01/16/2021 04968 Electrical Stimulati on Manual, Each 15 Min, Constant Attendance Completed 01/16/2021 12624 Therapeutic Procedure, Each 15 M inutes Completed 01/16/2021 46997 Manual Therapy Each 15 Minutes C ompleted 01/16/2021 84335 Re-Eval Of PT Establ ished Plan Of Care 20Mins Face To Face PT/Fam Completed 01/09/2021 28528 Manual Therapy Each 15 Minutes C ompleted 01/09/2021 89150 Therapeutic Procedure, Each 15 M inutes Completed 01/09/2021 42956 Hot Or Cold Packs Completed 01/02/2021 99525 Manual Therapy Each 15 Minutes C ompleted 01/02/2021 60230 Hot Or Cold Packs Completed 12/26/2020 16562 Manual Therapy Each 15 Minutes C ompleted 12/26/2020 18450 Hot Or Cold Packs Completed 12/19/2020 85534 Physical Therapy Eval - Mod Comp lexity Completed Medical Devices Description No Information Available Encounters Description No Information Available Assessments Date Code Description Provider 04/17/2021 M54.2 Cervicalgia Angel Montemayor P .T. [...] ent, not elsewhere classified Angel Montemayor P.T. 01/02/2021 M54.2 Cervicalgia Angel Montemayor P .T. 01/02/2021 R51.0 Headache with orthostatic compon ent, not elsewhere classified Angel Montemayor P.T. 12/26/2020 M54.2 Cervicalgia Angel Montemayor P .T. 12/26/2020 R51.0 Headache with orthostatic compon ent, not elsewhere classified Angel Montemayor P.T. 12/19/2020 M54.2 Cervicalgia Angel Montemayor P .T. 12/19/2020 R51.0 Headache with orthostatic compon ent, not elsewhere classified Angel Montemayor P.T. Plan of Treatment Future Appointment(s):* 05/08/2021 4:00 pm - Angel Montemayor P.TMac at Physical Therapy Referral * 05/01/2021 4:00 pm - Angel J. Cook P.T. at Physical Therapy Referral Functional Status Description No Information Available Mental Status Description No Information Available Referrals Refer to Dr Reason for Referral Status Appt Date Sachin Eason MD PT- NECK WRITTEN AUTH PASSED TO PT DEPT. Created [address] [place] [address], [address] [phone] [phone] Sachin Eason MD PT- NECK AND HEAD OK TO [facility] 1ST SET TRI AGED PT DEPT. Created [address] [place] [address], [address] [phone] [phone]
--- OUTSIDE RECORDS SUMMARY | 2021-07-23 06:13 | CCD ---
Author Author [facility] Organization [facility] Address Unknown Phone Unavailable Care Team Providers Care Income Tax Consultant Name Role Phone Monster BARAKAT. DIRECTOR MEDICAL SAFETY TRIP Unavailable [phone] Monster BARAKAT. DIRECTOR MEDICAL SAFETY TRIP Unavailable [phone] Monster BARAKAT. DIRECTOR MEDICAL SAFETY TRIP Unavailable [phone] Monster BARAKAT. DIRECTOR MEDICAL SAFETY TRIP Unavailable [phone] Monster BARAKAT. DIRECTOR MEDICAL SAFETY TRIP Unavailable [phone] Monster BARAKAT. DIRECTOR MEDICAL SAFETY TRIP Unavailable [phone] Monster BARAKAT. DIRECTOR MEDICAL SAFETY TRIP Unavailable [phone] Monster BARAKAT. DIRECTOR MEDICAL SAFETY TRIP Unavailable [phone] Monster BARAKAT. DIRECTOR MEDICAL SAFETY TRIP Unavailable [phone] Monster BARAKAT. DIRECTOR MEDICAL SAFETY TRIP Unavailable [phone] Monster BARAKAT. DIRECTOR MEDICAL SAFETY TRIP Unavailable [phone] Monster BARAKAT. DIRECTOR MEDICAL SAFETY TRIP Unavailable [phone] ROSHNI, A. DIRECTOR MEDICAL SAFETY TRIP Unavailable [phone] Monster BARAKAT. DIRECTOR MEDICAL SAFETY TRIP Unavailable [phone] Monster BARAKAT. DIRECTOR MEDICAL SAFETY TRIP Unavailable [phone] Monster BARAKAT. DIRECTOR MEDICAL SAFETY TRIP Unavailable [phone] Avi Frances PA PA Unavailable [phone] FrancesAvi villatoro PA PA Unavailable [phone] FrancesAvi villatoro PA PA Unavailable [phone] FrancesAvi villatoro PA PA Unavailable [phone] Avi Frances PA PA Unavailable [phone] CLARK, Francois ZUNIGA NP Unavailable Unavailable LAROCK, Francois ZUNIGA NP Unavailable Unavailable LAROCK, Francois ZUNIGA NP Unavailable Unavailable LAROCK, Francois ZUNIGA NP Unavailable Unavailable LAROCK, Francois ZUNIGA NP Unavailable Unavailable LAROCK, Francois ZUNIGA NP Unavailable Unavailable LAROCK, Francois ZUNIGA NP Unavailable Unavailable LAROCK, Francois ZUNIGA NP Unavailable Unavailable LAROCK, Francois ZUNIGA NP Unavailable Unavailable LAROCK, Francois ZUNIGA NP Unavailable Unavailable LAROCK, Francois ZUNIGA NP Unavailable Unavailable LAROCK, Francois ZUNIGA NP Unavailable Unavailable LAROCK, Francois ZUNIGA NP Unavailable Unavailable LAROCK, Francois ZUNIGA NP Unavailable Unavailable LAROCK, Francois ZUNIGA NP Unavailable Unavailable LAROCK, Francois ZUNIGA NP Unavailable Unavailable LAROCK, Francois ZUNIGA NP Unavailable Unavailable LAROCK, Francois ZUNIGA NP Unavailable Unavailable LAROCK, Francois ZUNIGA NP Unavailable Unavailable LAROCK, Francois ZUNIGA NP Unavailable Unavailable LAROCK, Francois ZUNIGA NP Unavailable Unavailable LAROCK, Francois ZUNIGA NP Unavailable Unavailable Trickey, J Carmen PA Unavailable [...] J Carmen PA Unavailable Unavailable Trickey, J Camren PA Unavailable Unavailable Trickey, J Carmen PA [...] Unavailable Trickey, J Carmen PA Unavailable Unavailable Jumalon, M Nyla DIRECTOR MEDICAL SAFETY Unavailable Unavailable Jumalon, M Nyla DIRECTOR MEDICAL SAFETY Unavailable Unavailable Jumalon, M Nyla DIRECTOR MEDICAL SAFETY Unavailable Unavailable Jumalon, M Nyla DIRECTOR MEDICAL SAFETY Unavailable Unavailable Jumalon, M Nyla DIRECTOR MEDICAL SAFETY Unavailable Unavailable Jumalon, M Nyla DIRECTOR MEDICAL SAFETY Unavailable Unavailable Jumalon, M Nyla DIRECTOR MEDICAL SAFETY Unavailable Unavailable Jumalon, M Nyla DIRECTOR MEDICAL SAFETY Unavailable Unavailable Jumalon, M Nyla DIRECTOR MEDICAL SAFETY Unavailable Unavailable Jumalon, M Nyla DIRECTOR MEDICAL SAFETY Unavailable Unavailable Jumalon, M Nyla DIRECTOR MEDICAL SAFETY Unavailable Unavailable Jumalon, M Nyla DIRECTOR MEDICAL SAFETY Unavailable Unavailable Jumalon, M Nyla DIRECTOR MEDICAL SAFETY Unavailable Unavailable Jumalon, M Nyla DIRECTOR MEDICAL SAFETY Unavailable Unavailable Jumalon, M Nyla DIRECTOR MEDICAL SAFETY Unavailable Unavailable Jumalon, M Nyla DIRECTOR MEDICAL SAFETY Unavailable Unavailable Jumalon, M Nyla DIRECTOR MEDICAL SAFETY Unavailable Unavailable Jumalon, M Nyla DIRECTOR MEDICAL SAFETY Unavailable Unavailable Jumalon, M Nyla DIRECTOR MEDICAL SAFETY Unavailable Unavailable Jumalon, M Nyla DIRECTOR MEDICAL SAFETY Unavailable Unavailable Jumalon, M Nyla DIRECTOR MEDICAL SAFETY Unavailable Unavailable Jumalon, M Nyla DIRECTOR MEDICAL SAFETY Unavailable Unavailable Jumalon, M Nyla DIRECTOR MEDICAL SAFETY Unavailable Unavailable Jumalon, M Nyla DIRECTOR MEDICAL SAFETY Unavailable Unavailable Jumalon, M Nyla DIRECTOR MEDICAL SAFETY Unavailable Unavailable Jumalon, M Nyla DIRECTOR MEDICAL SAFETY Unavailable Unavailable Jumalon, M Nyla DIRECTOR MEDICAL SAFETY Unavailable Unavailable Jumalon, M Nyla DIRECTOR MEDICAL SAFETY Unavailable Unavailable Jumalon, M Nyla DIRECTOR MEDICAL SAFETY Unavailable Unavailable Jumalon, M Nyla DIRECTOR MEDICAL SAFETY Unavailable Unavailable Malek, T Hamza MD Unavailable [phone] Malek, T Hamza MD Unavailable [phone] Malek, T Hamza MD Unavailable [phone] Malek, T Hamza MD Unavailable [phone] Malek, T Hamza MD Unavailable [phone] Malek, T Hamza MD Unavailable [phone] Malek, T Hamza MD Unavailable [phone] Malek, T Hamza MD Unavailable [phone] Malek, T Hamza MD Unavailable [phone] Malek, T Hamza MD Unavailable [phone] Malek, T Hamza MD Unavailable [phone] Malek, T Hamza MD Unavailable [phone] Malek, T Hamza MD Unavailable [phone] Malek, T Hamza MD Unavailable [phone] Malek, T Hamza MD Unavailable [phone] Malek, T Hamza MD Unavailable [phone] Malek, T Hamza MD Unavailable [phone] Malek, T Hamza MD Unavailable [phone] Malek, T Hamza MD Unavailable [phone] Malelinda, Paco Paloma CARLSON Unavailable [phone] Malelinda, Paco Paloma CARLSON Unavailable [phone] Malelinda, Paco Paloma CARLSON Unavailable [phone] RING, K KYLEIGH PA Unavailable Unavailable RING, K KYLEIGH PA Unavailable Unavailable RING, K KYLEIGH PA Unavailable Unavailable RING, K KYLEIGH PA Unavailable Unavailable RING, K KYLEIGH PA Unavailable Unavailable RING, K KYLEIGH PA Unavailable Unavailable RING, K KYLEIGH PA Unavailable Unavailable RING, K KYLEIGH PA Unavailable Unavailable RING, K KYLEIGH PA Unavailable Unavailable RING, K KYLEIGH PA Unavailable Unavailable RING, K KYLEIGH PA Unavailable Unavailable RING, K KYLEIGH PA Unavailable Unavailable RING, K KYLEIGH PA Unavailable Unavailable RING, K KYLEIGH PA Unavailable Unavailable RING, K KYLEIGH PA Unavailable Unavailable RING, K KYLEIGH PA Unavailable Unavailable RING, K KYLEIGH PA Unavailable Unavailable RING, K KYLEIGH PA Unavailable Unavailable RING, K KYLEIGH PA Unavailable Unavailable RING, K KYLEIGH PA Unavailable Unavailable RING, K KYLEIGH PA Unavailable Unavailable Maring, Carlos PA Unavailable Unavailable Maring, Carlos PA Unavailable Unavailable Maring, Carlos PA Unavailable Unavailable Maring, Carlos PA Unavailable Unavailable Maring, Carlos PA Unavailable Unavailable Maring, Carlos PA Unavailable Unavailable Maring, Carlos PA Unavailable Unavailable Maring, Carlos PA Unavailable Unavailable Maring, Carlos PA Unavailable Unavailable Maring, Carlos PA Unavailable Unavailable Maring, Carlos PA Unavailable Unavailable Maring, Carlos PA Unavailable Unavailable Maring, Carlos PA Unavailable Unavailable Maring, Carlos PA Unavailable Unavailable Maring, Carlos PA Unavailable Unavailable Maring, Carlos PA Unavailable Unavailable Bolla, S Stephon MD Unavailable [...] Bolla, S Stephon MD Unavailable Unavailable Bolla, Denise Szymanski MD Unavailable Unavailable Bolla, Denise Szymanski MD Unavailable Unavailable Bolla, Denise Szymanski MD Unavailable Unavailable Bolla, Denise Szymanski MD Unavailable Unavailable Bolla, Denise Szymanski MD Unavailable Unavailable Bolla, Denise Szymanski MD Unavailable Unavailable Bolla, Denise Szymanski MD Unavailable Unavailable Bolla, Denise Szymanski MD Unavailable Unavailable Bolla, Denise Szymanski MD Unavailable Unavailable Bolla, Denise Szymanski MD Unavailable Unavailable Bolla, Denise Szymanski MD Unavailable Unavailable Bolla, Denise Szymanski MD Unavailable Unavailable Bolla, Denise Szymanski MD Unavailable Unavailable Bolla, Denise Szymanski MD Unavailable Unavailable Bolla, Denise Szymanski MD Unavailable Unavailable Bolla, Denise Szymanski MD Unavailable Unavailable Bolla, Denise Szymanski MD Unavailable Unavailable Bolla, Denise Szymanski MD Unavailable Unavailable Bolla, Denise Szymanski MD Unavailable Unavailable Bolla, Denise Szymanski MD Unavailable Unavailable Bolla, Denise Szymanski MD Unavailable Unavailable Bolla, Denise Szymanski MD Unavailable Unavailable Bolla, Denise Szymanski MD Unavailable Unavailable Bolla, Denise Szymanski MD Unavailable Unavailable Bolla, Denise Szymanski MD Unavailable Unavailable Bolla, Denise Szymanski MD Unavailable Unavailable Bolla, Denise Szymanski MD Unavailable Unavailable Bolla, Denise Szymanski MD Unavailable Unavailable Bolla, Denise Szymanski MD Unavailable Unavailable Bolla, Denise Szymanski MD Unavailable Unavailable Bolla, Denise Szymanski MD Unavailable Unavailable Bolla, Denise Szymanski MD Unavailable Unavailable Bolla, Denise Szymanski MD Unavailable Unavailable Bolla, Denise Szymanski MD Unavailable Unavailable CHACHO, B LESA INCLINOMETER TESTER Unavailable Unavailable CHACHO, B LESA INCLINOMETER TESTER Unavailable Unavailable CHACHO, B LESA INCLINOMETER TESTER Unavailable Unavailable CHACHO, B LESA INCLINOMETER TESTER Unavailable Unavailable CHACHO, B LESA INCLINOMETER TESTER Unavailable Unavailable CHACHO, B LESA INCLINOMETER TESTER Unavailable Unavailable CHACHO, B LESA INCLINOMETER TESTER Unavailable Unavailable CHACHO, B LESA INCLINOMETER TESTER Unavailable Unavailable CHACHO, B LESA INCLINOMETER TESTER Unavailable Unavailable CHACHO, B LESA INCLINOMETER TESTER Unavailable Unavailable CHACHO, B LESA INCLINOMETER TESTER Unavailable Unavailable CHACHO, B LESA INCLINOMETER TESTER Unavailable Unavailable CHACHO, B LESA INCLINOMETER TESTER Unavailable Unavailable CHACHO, B LESA INCLINOMETER TESTER Unavailable Unavailable CHACHO, B LESA INCLINOMETER TESTER Unavailable Unavailable CHACHO, B LESA INCLINOMETER TESTER Unavailable Unavailable CHACHO, B LESA INCLINOMETER TESTER Unavailable Unavailable CHACHO, B LESA INCLINOMETER TESTER Unavailable Unavailable CHACHO, B LESA INCLINOMETER TESTER Unavailable Unavailable CHACHO, B LESA INCLINOMETER TESTER Unavailable Unavailable CHACHO, B LESA INCLINOMETER TESTER Unavailable Unavailable CHACHO, B LESA INCLINOMETER TESTER Unavailable Unavailable CHACHO, B LESA INCLINOMETER TESTER Unavailable Unavailable CHACHO, B LESA INCLINOMETER TESTER Unavailable Unavailable CHACHO, B LESA INCLINOMETER TESTER Unavailable Unavailable CHACHO, B LESA INCLINOMETER TESTER Unavailable Unavailable CHACHO, B LESA INCLINOMETER TESTER Unavailable Unavailable CHACHO, B LESA INCLINOMETER TESTER Unavailable Unavailable CHACHO, B LESA INCLINOMETER TESTER Unavailable Unavailable CHACHO, B LESA INCLINOMETER TESTER Unavailable Unavailable CHACHO, B LESA INCLINOMETER TESTER Unavailable Unavailable CHACHO, B LESA INCLINOMETER TESTER Unavailable Unavailable CHACHO, B LESA INCLINOMETER TESTER Unavailable Unavailable CHACHO, B LESA INCLINOMETER TESTER Unavailable Unavailable CHACHO, B LESA INCLINOMETER TESTER Unavailable Unavailable CHACHO, B LESA INCLINOMETER TESTER Unavailable Unavailable CHACHO, B LESA INCLINOMETER TESTER Unavailable Unavailable CHACHO, B LESA INCLINOMETER TESTER Unavailable Unavailable CHACHO, B LESA INCLINOMETER TESTER Unavailable Unavailable CHACHO, B LESA INCLINOMETER TESTER Unavailable Unavailable CHACHO, B LESA INCLINOMETER TESTER Unavailable Unavailable CHACHO, B LESA INCLINOMETER TESTER Unavailable Unavailable CHACHO, B LESA INCLINOMETER TESTER Unavailable Unavailable CHACHO, B LESA INCLINOMETER TESTER Unavailable Unavailable CHACHO, B LESA INCLINOMETER TESTER Unavailable Unavailable CHACHO, B LESA INCLINOMETER TESTER Unavailable Unavailable CHACHO, B LESA INCLINOMETER TESTER Unavailable Unavailable CHACHO, B LESA INCLINOMETER TESTER Unavailable Unavailable CHACHO, B LESA INCLINOMETER TESTER Unavailable Unavailable CHACHO, B LESA INCLINOMETER TESTER Unavailable Unavailable CHACHO, B LESA INCLINOMETER TESTER Unavailable Unavailable CHACHO, B LESA INCLINOMETER TESTER Unavailable Unavailable CHACHO, B LESA INCLINOMETER TESTER Unavailable Unavailable CHACHO, B LESA INCLINOMETER TESTER Unavailable Unavailable CHACHO, B LESA INCLINOMETER TESTER Unavailable Unavailable CHACHO, B LESA INCLINOMETER TESTER Unavailable Unavailable CHACHO, B LESA INCLINOMETER TESTER Unavailable Unavailable CHACHO, B LESA INCLINOMETER TESTER Unavailable Unavailable CHACHO, B LESA INCLINOMETER TESTER Unavailable Unavailable CHACHO, B LESA INCLINOMETER TESTER Unavailable Unavailable CHACHO, B LESA INCLINOMETER TESTER Unavailable Unavailable CHACHO, B LESA INCLINOMETER TESTER Unavailable Unavailable Navarro, Leila SOTELO Unavailable Unavailable Navarro, Leila SOTELO Unavailable Unavailable Navarro, Leila Gena PA Unavailable Unavailable Navarro, Leila Gena PA Unavailable Unavailable Navarro, Leila Gena PA Unavailable Unavailable Navarro, Leila Gena PA Unavailable Unavailable Navarro, Leila Gena PA Unavailable Unavailable Navarro, Leila Gena PA Unavailable Unavailable Navarro, Leila Gena PA Unavailable Unavailable Navarro, Leila Gena PA Unavailable Unavailable Nash, Mickey PA-C Unavailable Nash, Mickey PA-C Unavailable Nash, Mickey PA-C Unavailable Nash, Mickey PA-C Unavailable Nash, Mickey PA-C Unavailable JEWELL, G EDWARD RPA Unavailable Unavailable JEWELL, G EDWARD RPA Unavailable Unavailable JEWELL, G EDWARD RPA Unavailable Unavailable JEWELL, G EDWARD RPA Unavailable Unavailable JEWELL, G EDWARD RPA Unavailable Unavailable JEWELL, G EDWARD RPA Unavailable Unavailable JEWELL, G EDWARD RPA Unavailable Unavailable JEWELL, G EDWARD RPA Unavailable Unavailable JEWELL, G EDWARD RPA Unavailable Unavailable JEWELL, G EDWARD RPA Unavailable Unavailable JEWELL, G EDWARD RPA Unavailable Unavailable JEWELL, G EDWARD RPA Unavailable Unavailable JEWELL, G EDWARD RPA Unavailable Unavailable JEWELL, G EDWARD RPA Unavailable Unavailable JEWELL, G EDWARD RPA Unavailable Unavailable JEWELL, G EDWARD RPA Unavailable Unavailable JEWELL, G EDWARD RPA Unavailable Unavailable JEWELL, G EDWARD RPA Unavailable Unavailable JEWELL, G EDWARD RPA Unavailable Unavailable JEWELL, G EDWARD RPA Unavailable Unavailable JEWELL, G EDWARD RPA Unavailable Unavailable JEWELL, G EDWARD RPA Unavailable Unavailable JEWELL, G EDWARD RPA Unavailable Unavailable JEWELL, G EDWARD RPA Unavailable Unavailable JEWELL, G EDWARD RPA Unavailable Unavailable JEWELL, G EDWARD RPA Unavailable Unavailable JEWELL, G EDWARD RPA Unavailable Unavailable JEWELL, G EDWARD RPA Unavailable Unavailable JEWELL, G EDWARD RPA Unavailable Unavailable JEWELL, G EDWARD RPA Unavailable Unavailable JEWELL, G EDWARD RPA Unavailable Unavailable JEWELL, G EDWARD RPA Unavailable Unavailable JEWELL, G EDWARD RPA Unavailable Unavailable JEWELL, G EDWARD RPA Unavailable Unavailable JEWELL, G EDWARD RPA Unavailable Unavailable JEWELL, G EDWARD RPA Unavailable Unavailable JEWELL, G EDWARD RPA Unavailable Unavailable Lanny Lee MD Unavailable Unavailable Fish, Lanny Smith MD [...] Sarah CARLSON Unavailable Unavailable Fish, B Sarah CARLOSN Unavailable Unavailable Fish, B Sarah CARLSON Unavailable [...] Smith MD Unavailable Unavailable Fish, B Sarah MD Unavailable Unavailable Alex Mae Unavailable [phone] Alex Mae Unavailable [phone] Alex Mae Unavailable [phone] Alex Mae Unavailable [phone] Alex Mae Unavailable [phone] Alex Mae Unavailable [phone] Campanaro, Mare Deborah PA Unavailable Unavailable Campanaro, [...] Unavailable Campanaro, Mare Deborah PA Unavailable Unavailable Re-disclosure Warning The records [...] is protected by Article 27-F of the [place] Public Health law. If you continue you may have access to information: Regarding HIV / AIDS; Provided by facilities licensed or operated by the [facility] Office of Mental Health; or Provided by the [facility] Office for People With Developmental Disabilities. If such information is present, then the following [facility] mandated warning applies: This information has [...] law may result in a fine or assisted sentence or both. A general authorization for the release of medical or other information is NOT sufficient authorization for further disc losure. Family History Family Member Name Family Member Gender Family Member Status Date o f Status Description Data Source(s) Unknown Female Problem MEDENT ([facility]) Unknown Female Problem MEDENT ([facility]) Unknown Female Problem MEDENT ([facility]) Encounters Encounter Providers Location Date Indications Data Source(s ) Outpatient Attender: Carlos SOTELO 07/09/20 07:33:41 AM EDT - 07/09/2021 08:05:52 AM EDT [facility] ([facility] ) Outpatient Attender: TRIP BARAKAT 06/06 05:59:04 PM EDT - 06/29/2021 07:05:45 PM EDT [facility] ([facility] ) Preadmit Attender: Mickey Nash PA-C 06/09/2021 05:42:00 P [facility] Outpatient Attender: Alex Mae 06/02 11:55:14 AM EDT - 06/02/2021 01:04:09 PM EDT [facility] ([facility] ) Outpatient Attender: Paloma Monreal MD [facility] 05/22 02:59:00 PM EDT - 05/22/2021 03:00:00 PM EDT [facility] Patient discharged. Nyla Boland, INCLINOMETER TESTER: [address], [address], [place] [address], Ph. Attender: Nyla Boland DIRECTOR MEDICAL SAFETY [place] - [facility] 05/05/2021 12:00:00 AM EDT ATHE NA ([facility]) Nyla Boland, INCLINOMETER TESTER: [address], [place] [address], Ph. Attender: Nyla Boland [facility] 04/10/2021 12:00:00 AM EDT ATHE NA ([facility]) Nyla Boland, INCLINOMETER TESTER: [address], [place] [address], Ph. Attender: Nyla Boland [facility] 04/10/2021 12:00:00 AM EDT ATHAvi NA ([facility]) Outpatient Attender: Carlos SOTELO 04/08/20 04:40:14 PM EDT - 04/08/2021 05:36:44 PM EDT [facility] ([facility] ) Outpatient Attender: Sarah Lee MD Physical Therapy 02/20 03:30:00 PM EDT MEG ([facility] ) Nyla Boland, INCLINOMETER TESTER: [address], [place] [address], Ph. Attender: Nyla Boland [facility] 02/13/2021 12:00:00 AM EDT ATHE NA ([facility]) Nyla Boland, INCLINOMETER TESTER: [address], [place] [address], Ph. Attender: Nyla Boland [facility] 02/13/2021 12:00:00 AM EDT ATHE NA ([facility]) Nyla Boland, INCLINOMETER TESTER: [address], [place] [address], Ph. Attender: Nyla CASTRO [place] [facility] 02/13/2021 12:00:00 AM EDT ATHE NA ([facility]) Stephon Cullen MD: [address], [place] [address], Ph. Attender: Stephon Cullen [place] [facility] 01/26/2021 12:00:00 AM EDT ROLANDO ([facility]) Stephon Cullen MD: [address], [place], [place] [address], Ph. Attender: Stephon Cullen MD [place] [facility] 01/26/2021 12:00:00 AM EDT ROLANDO ([facility]) Stephon Cullen MD: [address], [address] [place], [place] [address], Ph. Attender: Stephon Cullen MD [place] [facility] 01/26/2021 12:00:00 AM EDT ROLANDO ([facility]) Stephon Cullen MD: [address], [place], [place] [address], Ph. Attender: Stephon Cullen MD [place] [facility] 01/26/2021 12:00:00 AM EDT ROLANDO ([facility]) Outpatient Attender: Carmen SOTELO [facility] 01/23/2021 09:00:00 AM EDT MEDENT ([facility]) Unknown [address] [facility] [address] 01/21/2021 12:00:00 AM EDT eCW1 ([facility]) Nyla Boland, INCLINOMETER TESTER: [address], [address], [place] [address], Ph. Attender: Nyla Boland [facility] 01/16/2021 12:00:00 AM EDT ATHE NA ([facility]) Nyla Boland, INCLINOMETER TESTER: [address], [address], [place] [address], Ph. Attender: Nyla Boland [facility] - [facility] 01/16/2021 12:00:00 AM EDT ATHE NA ([facility]) Nyla Boland, INCLINOMETER TESTER: [address], [address], [place] [address], Ph. Attender: Nyla Boland [facility] 01/16/2021 12:00:00 AM EDT ATHE NA ([facility]) Nyla Boland, INCLINOMETER TESTER: [address], [address], [place] [address], Ph. Attender: Nyla Boland [facility] 01/16/2021 12:00:00 AM EDT ATHE NA ([facility]) Nyla Boland, INCLINOMETER TESTER: [address], [address], [place] [address], Ph. Attender: Nyla Boland [facility] 01/16/2021 12:00:00 AM EDT ATHE NA ([facility]) Outpatient Attender: KYLEIGH [facility] 01/15/2021 03:35:00 PM EDT MEG ([facility]) Outpatient Attender: LEXX [facility]WELL [facility] 01/12 11:17:28 AM EDT - 01/12/2021 11:59:39 AM EDT [facility] ([facility] ) Outpatient [address] [facility] [address] 01/08/2021 12:00:00 AM EDT eCW1 ([facility]) Unknown [address] [facility] [address] 12/29/2020 12:00:00 AM EDT eCW1 ([facility]) Nyla Boland, INCLINOMETER TESTER: [address], [place] [address], Ph. Attender: Nyla Boland [facility] - [facility] 12/19/2020 12:00:00 AM EDT ATHAvi GUERRERO ([facility]) Nyla Boland, INCLINOMETER TESTER: [address], [place] [address], Ph. Attender: Nyla Boland [facility] 12/19/2020 12:00:00 AM EDT ATHE NA ([facility]) Nyla Boland, INCLINOMETER TESTER: [address], [place] [address], Ph. Attender: Nyla Boland [facility] 12/19/2020 12:00:00 AM EDT ATHE NA ([facility]) Nyla Boland, INCLINOMETER TESTER: [address], [place] [address], Ph. Attender: Nyla Boland [facility] - [facility] 12/19/2020 12:00:00 AM EDT ATHAvi NA (Pain [facility]) Nyla Boland, INCLINOMETER TESTER: [address], [place] [address], Ph. Attender: Nyla Boland [facility] - [facility] 12/19/2020 12:00:00 AM EDT ATHE NA ([facility]) Nyla Boland, INCLINOMETER TESTER: [address], [address], [place] [address], Ph. Attender: Nyla Boland [facility] - [facility] 12/19/2020 12:00:00 AM EDT ATHAvi NA ([facility]) Stephon Cullen MD: [address], [place] [address], Ph. Attender: Ste[place] Cullen [place] [facility] 12/04/2020 12:00:00 AM EDT ROLANDO ([facility]) Stephon Cullen MD: [address], [place] [address], Ph. Attender: Stephon Cullen MD [place] [facility] 12/04/2020 12:00:00 AM EDT ROLANDO ([facility]) Stephon Cullen MD: [address]35 [address], [place] [address], Ph. Attender: Stephon Cullen MD [place] - [facility] 12/04/2020 12:00:00 AM EDT ROLANDO ([facility]) Stephon Cullen MD: [address]86 [address], [place] [address], Ph. Attender: Stephon Cullen MD [place] - [facility] 12/04/2020 12:00:00 AM EDT ROLANDO ([facility]) Stephon Cullen MD: [address], [address], [place] [address], Ph. Attender: Stephon Cullen MD [place] - [facility] 12/04/2020 12:00:00 AM EDT ROLANDO ([facility]) Stephon Cullen MD: [address], [place] [address], Ph. Attender: Stephon Cullen MD [place] [facility] 12/04/2020 12:00:00 AM EDT ROLANDO ([facility]) Stephon Cullen MD: [address], [place] [address], Ph. Attender: Stephon Cullen MD [place] - [facility] 12/04/2020 12:00:00 AM EDT ROLANDO ([facility]) Outpatient Attender: LESA FLOR NP Physical Therapy 08:45:00 AM EDT MEDENT ([facility]) Stephon Cullen MD: [address], [place] [address], Ph. [phone] Attender: Stephon VILLARREAL - [facility] 12/01/2020 12:00:00 AM EDT ROLANDO ([facility]) Stephon Cullen MD: [address]43 [address], [place] [address], Ph. [phone] Attender: Stephon VILLARREAL - [facility] 12/01/2020 12:00:00 AM EDT ROLANDO ([facility]) Stephon Cullen MD: [address]184 [address], [place] [address], Ph. [phone] Attender: Stephon VILLARREAL - [facility] 12/01/2020 12:00:00 AM EDT ROLANDO ([facility]) Stephon Cullen MD: [address], [place] [address], Ph. [phone] Attender: Stephon Cullen MD [place] [facility] 12/01/2020 12:00:00 AM EDT ROLANDO ([facility]) Stephon Cullen MD: [address]374 [address], [place] [address], Ph. [phone] Attender: Stephon Cullen MD [place] - [facility] 12/01/2020 12:00:00 AM EDT ROLANDO ([facility]) Stephon Cullen MD: [address]387 [address], [place] [address], Ph. [phone] Attender: Stephon Cullen MD [place] - [facility] 12/01/2020 12:00:00 AM EDT ROLANDO ([facility]) Stephon Cullen MD: [address]50 [address], [place] [address], Ph. [phone] Attender: Stephon Cullen MD [place] - [facility] 12/01/2020 12:00:00 AM EDT ROLANDO ([facility]) Stephon Cullen MD: [address]88 [address], [place] [address], Ph. [phone] Attender: Stephon Cullen MD [place] - [facility] 12/01/2020 12:00:00 AM EDT ROLANDO ([facility]) Nyla Boland, INCLINOMETER TESTER: [address], [address], [place] [address], Ph. [facility]: [facility] 11/27/2020 12:00:00 AM EDT ATHE NA ([facility]) Nyla Boland, INCLINOMETER TESTER: [address], [address], [place] [address], Ph. Attender: Nyla Boland [facility] - [facility] 11/27/2020 12:00:00 AM EDT ATHE NA ([facility]) Nyla Boland, INCLINOMETER TESTER: [address], [address], [place] [address], Ph. Attender: Nyla Boland [facility] - [facility] 11/27/2020 12:00:00 AM EDT ATHE NA ([facility]) Nyla Boland, INCLINOMETER TESTER: [address], [place] [address], Ph. Attender: Nyla Boland [facility] - [facility] 11/27/2020 12:00:00 AM EDT ATHE NA ([facility]) Nyla Boland, INCLINOMETER TESTER: [address], [place] [address], Ph. Attender: Nyla Boland [facility] - [facility] 11/27/2020 12:00:00 AM EDT ATHE NA ([facility]) Nyla Boland, INCLINOMETER TESTER: [address], [address], [place] [address], Ph. Attender: Nyla Boland [facility] - [facility] 11/27/2020 12:00:00 AM EDT ATHE NA ([facility]) Nyla Boland, INCLINOMETER TESTER: [address]66 [address], [address], [place] [address], Ph. Attender: Nyla Boland [facility] - [facility] 11/27/2020 12:00:00 AM EDT ATHE NA ([facility]) Nyla Boland, INCLINOMETER TESTER: [address], [place] [address], Ph. Attender: Nyla Boland [facility] - [facility] 11/27/2020 12:00:00 AM EDT ATHE NA ([facility]) Nyla Boland, INCLINOMETER TESTER: [address], [place] [address], Ph. Attender: Nyla Boland [facility] 11/27/2020 12:00:00 AM EDT ATHE NA ([facility]) Outpatient Attender: NADIA RODAS NP 11/03 04:40:12 PM EDT - 11/20/2020 05:44:42 PM EDT Mavis ([facility] ) Nyla Boland, INCLINOMETER TESTER: [address], [place] [address], Ph. Attender: Nyla Boland [facility] - [facility] 11/14/2020 12:00:00 AM EST ATHE NA ([facility]) Nyla Boland, INCLINOMETER TESTER: [address], [place] [address], Ph. Attender: Nyla Boland [facility] - [facility] 11/14/2020 12:00:00 AM EST ATHE NA ([facility]) Nyla Boland, INCLINOMETER TESTER: [address], [place] [address], Ph. Attender: Nyla Boland [facility] - [facility] 11/14/2020 12:00:00 AM EST ATHE NA ([facility]) Nyla Boland, INCLINOMETER TESTER: [address], [place] [address], Ph. Attender: Nyla Boland [facility] - [facility] 11/14/2020 12:00:00 AM EST ATHE NA ([facility]) Nyla Boland, INCLINOMETER TESTER: [address], [place] [address], Ph. Attender: Nyla Boland [facility] - [facility] 11/14/2020 12:00:00 AM EST ATHE NA ([facility]) Nyla Boland, INCLINOMETER TESTER: [address], [place] [address], Ph. Attender: Nyla Boland [facility] - [facility] 11/14/2020 12:00:00 AM EST ATHE NA ([facility]) Nyla Boland, INCLINOMETER TESTER: [address]284 [address], [place] [address], Ph. Attender: Nyla Boland [facility] - [facility] 11/14/2020 12:00:00 AM EST ATHE NA ([facility]) Nyla Boland, INCLINOMETER TESTER: [address], [place] [address], Ph. Attender: Nyla Boland [facility] - [facility] 11/14/2020 12:00:00 AM EST ATHE NA ([facility]) Nyla Boland, INCLINOMETER TESTER: [address]97 [address], [address], [place] [address], Ph. Attender: Nyla Boland [facility] 11/14/2020 12:00:00 AM EST ATHE NA ([facility]) Nyla Boland, INCLINOMETER TESTER: [address]50 [address], [address], [place] [address], Ph. Attender: Nyla Boland [facility] - [facility] 11/14/2020 12:00:00 AM EST ATHE NA ([facility]) Outpatient Attender: Marva SOTELO [facility]CPSCANEU 0 11/13/2020 11:16:00 AM EST - 11/13/2020 11:17:00 AM EST [facility] Patient discharged. Outpatient Attender: Gena barragany 11/07/2020 09:45:00 AM EST MEDENT ([facility]) Nyla Boland, INCLINOMETER TESTER: [address], [place] [address], Ph. Attender: Nyla Boland [facility] 09/26/2020 12:00:00 AM EST ATHE NA ([facility]) Nyla Boland, INCLINOMETER TESTER: [address]271 [address], [address], [place] [address], Ph. Attender: Nyla Boland [facility] 09/26/2020 12:00:00 AM EST ATHE NA ([facility]) Nyla Boland, INCLINOMETER TESTER: [address]39 [address], [place] [address], Ph. Attender: Nyla Boland [employer] [place] - [facility] 09/26/2020 12:00:00 AM EST ATHE NA ([facility]) Nyla Boland, INCLINOMETER TESTER: [address]351 [address], [place] [address], Ph. Attender: Nyla Boland [facility] - [facility] 09/26/2020 12:00:00 AM EST ATHE NA ([facility]) Nyla Boland, INCLINOMETER TESTER: [address]57 [address], [place] [address], Ph. Attender: Nyla Boland [facility] - [facility] 09/26/2020 12:00:00 AM EST ATHE NA ([facility]) Nyla Boland, INCLINOMETER TESTER: [address]161 [address], [place] [address], Ph. Attender: Nyla Boland [facility] - [facility] 09/26/2020 12:00:00 AM EST ATHE NA ([facility]) Nyla Boland, INCLINOMETER TESTER: [address]226 [address], [place] [address], Ph. Attender: Nyla Boland [facility] - [facility] 09/26/2020 12:00:00 AM EST ATHE NA ([facility]) Nyla Boland, INCLINOMETER TESTER: [address]17 [address], [address], [place] [address], Ph. Attender: Nyla Boland [facility] - [facility] 09/26/2020 12:00:00 AM EST ATHE NA ([facility]) Nyla Boland, INCLINOMETER TESTER: [address], [address], [place] [address], Ph. Attender: Nyla Boland [facility] - [facility] 09/26/2020 12:00:00 AM EST ATHE NA ([facility]) Nyla Boland, INCLINOMETER TESTER: [address]00 [address], [place] [address], Ph. Attender: Nyla Boland [facility] - [facility] 09/26/2020 12:00:00 AM EST ATHE NA ([facility]) Nyla Boland, INCLINOMETER TESTER: [address]124 [address], [place] [address], Ph. Attender: Nyla Boland [facility] - [facility] 09/26/2020 12:00:00 AM EST ATHE NA ([facility]) Stephon Cullen MD: [address]20 [address], [place] [address], Ph. Attender: Stephon Cullen [place] [facility] 09/11/2020 12:00:00 AM EST ROLANDO ([facility]) Stephon Cullen MD: 29870 [address], [place] [address], Ph. Attender: Stephon Cullen MD [place] - [facility] 09/11/2020 12:00:00 AM EST ROLANDO ([facility]) Stephon Cullen MD: 27911 [address], [place] [address], Ph. Attender: Stephon Cullen MD [place] - [facility] 09/11/2020 12:00:00 AM EST ROLANDO ([facility]) Stephon Cullen MD: 59450 [address], [address], [place] [address], Ph. Attender: Stephon Cullen MD [place] - [facility] 09/11/2020 12:00:00 AM EST ROLANDO ([facility]) Stephon Cullen MD: 66650 [address], [place] [address], Ph. Attender: Stephon Cullen MD [place] - [facility] 09/11/2020 12:00:00 AM EST ROLANDO ([facility]) Stephon Cullen MD: 38994 [address], [place] [address], Ph. Attender: Stephon Cullen MD [place] - [facility] 09/11/2020 12:00:00 AM EST ROLANDO ([facility]) Stephon Cullen MD: 58322 [address], [place] [address], Ph. Attender: Stephon Cullen MD [place] - [facility] 09/11/2020 12:00:00 AM EST ROLANDO ([facility]) Stephon Cullen MD: 80552 [address], [place] [address], Ph. Attender: Stephon Cullen MD [place] - [facility] 09/11/2020 12:00:00 AM EST ROLANDO ([facility]) Stephon Cullen MD: 56690 [address], [place] [address], Ph. Attender: Stephon VILLARREAL - [facility] 09/11/2020 12:00:00 AM EST ROLANDO ([facility]) Stephon Cullen MD: 00622 [address], [place] [address], Ph. Attender: Stephon Cullen MD [place] - [facility] 09/11/2020 12:00:00 AM EST ROLANDO ([facility]) Stephon Cullen MD: 73152 [address], [place] [address], Ph. Attender: Stephon Cullen MD [place] - [facility] 09/11/2020 12:00:00 AM EST ROLANDO ([facility]) Outpatient Attender: LESA FLOR NP Physical Therapy 08:00:00 AM EST MEDENT ([facility]) Stephon Cullen MD: [address]85 [address], [facility] [place] [address], Ph. [phone] Attender: Stephon VILLARREAL - [facility] 09/08/2020 12:00:00 AM EST ROLANDO ([facility]) Stephon Cullen MD: 48171 [address], [place] [address], Ph. [phone] Attender: Stephon VILLARREAL - [facility] 09/08/2020 12:00:00 AM EST ROLANDO ([facility]) Stephon Cullen MD: 61830 [address], [place] [address], Ph. [phone] Attender: Stephon Cullen MD [place] - [facility] 09/08/2020 12:00:00 AM EST ROLANDO ([facility]) Stephon Cullen MD: 43063 [address], [place] [address], Ph. [phone] Attender: Stephon VILLARREAL - [facility] 09/08/2020 12:00:00 AM EST ROLANDO ([facility]) Stephon Cullen MD: 28080 [address], [address], [place] [address], Ph. [phone] Attender: Stephon Cullen MD [place] - [facility] 09/08/2020 12:00:00 AM EST ROLANDO ([facility]) Stephon Cullen MD: 72638 [address], [address], [place] [address], Ph. [phone] Attender: Stephon Cullen MD [place] - [facility] 09/08/2020 12:00:00 AM EST ROLANDO ([facility]) Stephon Cullen MD: 53513 [address], [place] [address], Ph. [phone] Attender: Stephon Cullen MD [place] - [facility] 09/08/2020 12:00:00 AM EST ROLANDO ([facility]) Stephon Cullen MD: 74924 [address], [address], [place] [address], Ph. [phone] Attender: Stephon Cullen MD [place] - [facility] 09/08/2020 12:00:00 AM EST ROLANDO ([facility]) Stephon Cullen MD: 92878 [address], [address], [place] [address], Ph. [phone] Attender: Stephon Cullen MD [place] - [facility] 09/08/2020 12:00:00 AM EST ROLANDO ([facility]) Stephon Cullen MD: 37027 [address], [place] [address], Ph. [phone] Attender: Stephon Cullen MD [place] - [facility] 09/08/2020 12:00:00 AM EST ROLANDO ([facility]) Stephon Cullen MD: 88263 [address], [address], [place] [address], Ph. [phone] Attender: Stephon Cullen MD [place] - [facility] 09/08/2020 12:00:00 AM EST ROLANDO ([facility]) Stephon Cullen MD: 28644 [address], [address], [place] [address], Ph. [phone] Attender: Stephon Cullen MD [place] - [facility] 09/08/2020 12:00:00 AM EST ROLANDO ([facility]) Stephon Cullen MD: 37484 [address], [address], [place] [address], Ph. Attender: Stephon Cullen MD [place] - [facility] 08/18/2020 12:00:00 AM EST ROLANDO ([facility]) Stephon Cullen MD: 74867 [address], [address], [place] [address], Ph. Attender: Stephon VILLARREAL - [facility] 08/18/2020 12:00:00 AM EST ROLANDO ([facility]) Stephon Cullen MD: 31269 [address], [address], [place] [address], Ph. Attender: Stephon Cullen MD [place] - [facility] 08/18/2020 12:00:00 AM EST ROLANDO ([facility]) Stephon Cullen MD: 97851 [address], [address], [place] [address], Ph. Attender: Stephon VILLARREAL - [facility] 08/18/2020 12:00:00 AM EST ROLANDO ([facility]) Stephon Cullen MD: 67521 [address], [address], [place] [address], Ph. Attender: Stephon Cullen MD [place] - [facility] 08/18/2020 12:00:00 AM EST ROLANDO ([facility]) Stephon Cullen MD: 37951 [address], [address], [place] [address], Ph. Attender: Stephon VILLARREAL - [facility] 08/18/2020 12:00:00 AM EST ROLANDO ([facility]) Stephon Cullen MD: 49332 [address], [address], [place] [address], Ph. Attender: Stephon VILLARREAL - [facility] 08/18/2020 12:00:00 AM EST ROLANDO ([facility]) Stephon Cullen MD: 96157 [address], [address], [place] [address], Ph. Attender: Stephon VILLARREAL - [facility] 08/18/2020 12:00:00 AM EST ROLANDO ([facility]) Stephon Cullen MD: 64149 [address], [address], [place] [address], Ph. Attender: Stephon VILLARREAL - [facility] 08/18/2020 12:00:00 AM EST ROLANDO ([facility]) Stephon Cullen MD: 91252 [address], [address], [place] [address], Ph. Attender: Stephon VILLARREAL - [facility] 08/18/2020 12:00:00 AM EST ROLANDO ([facility]) tSephon Cullen MD: 14551 [address], [address], [place] [address], Ph. Attender: Stephon Cullen MD [place] - [facility] 08/18/2020 12:00:00 AM EST ROLANDO ([facility]) Stephon Cullen MD: 79556 [address], [place] [address], Ph. Attender: Stephon Cullen MD [place] - [facility] 08/18/2020 12:00:00 AM EST ROLANDO ([facility]) Stephon Cullen MD: 26154 [address], [address], [place] [address], Ph. Attender: Stephon VILLARREAL - [facility] 08/18/2020 12:00:00 AM EST ROLANDO ([facility]) Stephon Cullen MD: 74467 [address], [place] [address], Ph. [phone] Attender: Stephon Cullen MD [place] - [facility] 08/13/2020 12:00:00 AM EST ROLANDO ([facility]) Stephon Cullen MD: 58913 [address], [address], [place] [address], Ph. [phone] Attender: Stephon Cullen MD [place] - [facility] 08/13/2020 12:00:00 AM EST ROLANDO ([facility]) Stephon Cullen MD: 88346 [address], [place] [address], Ph. [phone] Attender: Stephon VILLARREAL - [facility] 08/13/2020 12:00:00 AM EST ROLANDO ([facility]) Stephon Cullen MD: 47741 [address], [place] [address], Ph. [phone] Attender: Stephon Cullen MD [place] [facility] 08/13/2020 12:00:00 AM EST ROLANDO ([facility]) Stephon Cullen MD: 00214 [address], [address], [place] [address], Ph. [phone] Attender: Stephon Cullen MD [place] [facility] 08/13/2020 12:00:00 AM EST ROLANDO ([facility]) Stephon Cullen MD: 36998 [address], [address], [place] [address], Ph. [phone] Attender: Stephon Cullen MD [place] [facility] 08/13/2020 12:00:00 AM EST ROLANDO ([facility]) Stephon Cullen MD: 49259 [address], [address], [place] [address], Ph. [phone] Attender: Stephon VILLARREAL - [facility] 08/13/2020 12:00:00 AM EST ROLANDO ([facility]) Stephon Cullen MD: [address], [address], [place] [address], Ph. [phone] Attender: Stephon Cullen [place] [facility] 08/13/2020 12:00:00 AM EST ROLANDO ([facility]) Stephon Cullen MD: [address], [place] [address], Ph. [phone] Attender: Stephon Cullen MD [place] [facility] 08/13/2020 12:00:00 AM EST ROLANDO ([facility]) Stephon Cullen MD: [address], [address], [place] [address], Ph. [phone] Attender: Stephon Cullen MD [place] [facility] 08/13/2020 12:00:00 AM EST ROLANDO ([facility]) Stephon Cullen MD: [address], [address], [place] [address], Ph. [phone] Attender: Stephon Cullen MD [place] [facility] 08/13/2020 12:00:00 AM EST ROLANDO ([facility]) Stephon Cullen MD: [address], [place] [address], Ph. [phone] Attender: Stephon Cullen MD [place] [facility] 08/13/2020 12:00:00 AM EST ROLANDO ([facility]) Stephon Cullen MD: [address], [place] [address], Ph. [phone] Attender: Stephon Cullen MD [place] [facility] 08/13/2020 12:00:00 AM EST ROLANDO ([facility]) Stephon Cullen MD: [address], [place] [address], Ph. [phone] Attender: Stephon Cullen MD [place] [facility] 08/13/2020 12:00:00 AM EST ROLANDO ([facility]) Nyla Boland, INCLINOMETER TESTER: [address], [facility] [place] [address], Ph. Attender: Nyla Boland [facility] 08/06/2020 12:00:00 AM EST ATHE NA ([facility]) Nyla Boland, INCLINOMETER TESTER: [address], [place] [address], Ph. Attender: Nyla Boland [facility] - [facility] 08/06/2020 12:00:00 AM EST ATHE NA ([facility]) Nyla Boland, INCLINOMETER TESTER: [address], [place] [address], Ph. Attender: Nyla Boland [facility] - [facility] 08/06/2020 12:00:00 AM EST ATHE NA ([facility]) Nyla Boland, INCLINOMETER TESTER: [address], [place] [address], Ph. Attender: Nyla Boland [facility] - [facility] 08/06/2020 12:00:00 AM EST ATHE NA ([facility]) Nyla Boland, INCLINOMETER TESTER: [address], [place] [address], Ph. Attender: Nyla Boland [facility] - [facility] 08/06/2020 12:00:00 AM EST ATHE NA ([facility]) Nyla Boland, INCLINOMETER TESTER: [address], [place] [address], Ph. Attender: Nyla Boland [facility] - [facility] 08/06/2020 12:00:00 AM EST ATHE NA ([facility]) Nyla Boland, INCLINOMETER TESTER: [address], [place] [address], Ph. Attender: Nyla Boland [facility] - [facility] 08/06/2020 12:00:00 AM EST ATHE NA ([facility]) Nyla Boland, INCLINOMETER TESTER: [address], [place] [address], Ph. Attender: Nyla Boland [facility] - [facility] 08/06/2020 12:00:00 AM EST ATHE NA ([facility]) Nyla Boland, INCLINOMETER TESTER: [address], [address], [place] [address], Ph. Attender: Nyla Boland [facility] - [facility] 08/06/2020 12:00:00 AM EST ATHE NA ([facility]) Nyla Boland, INCLINOMETER TESTER: [address], [address], [place] [address], Ph. Attender: Nyla Boland [facility] - [facility] 08/06/2020 12:00:00 AM EST ATHE NA ([facility]) Nyla Boland, INCLINOMETER TESTER: [address], [place] [address], Ph. Attender: Nyla Boland [facility] - [facility] 08/06/2020 12:00:00 AM EST ATHE NA ([facility]) Nyla Boland, INCLINOMETER TESTER: [address], [place] [address], Ph. Attender: Nyla Boland [facility] - [facility] 08/06/2020 12:00:00 AM EST ATHE NA ([facility]) Nyla Boland, INCLINOMETER TESTER: [address], [address], [place] [address], Ph. Attender: Nyla Boland [facility] - [facility] 08/06/2020 12:00:00 AM EST ATHE NA ([facility]) Nyla Boland, INCLINOMETER TESTER: [address], [place] [address], Ph. Attender: Nylaavi Perlajose [facility] - [facility] 08/06/2020 12:00:00 AM EST ATHE NA ([facility]) Nyla Boland, INCLINOMETER TESTER: [address], [place] [address], Ph. Attender: Nyla Boland [facility] - [facility] 08/06/2020 12:00:00 AM EST ATHE NA ([facility]) Outpatient Attender: Carmen SOTELO [facility] 07/22/2020 08:00:00 AM EST MEDENT ([facility], ) Nyla Boland, INCLINOMETER TESTER: [address], [place] [address], Ph. Attender: Nyla Boland [facility] 07/03/2020 12:00:00 AM EDT ATHE NA ([facility]) Nyla Boland, INCLINOMETER TESTER: [address], [place] [address], Ph. Attender: Nyla Boland [facility] 07/03/2020 12:00:00 AM EDT ATHE NA ([facility]) Nyla Boland, INCLINOMETER TESTER: [address], [place] [address], Ph. Attender: Nyla Boland [facility] - [facility] 07/03/2020 12:00:00 AM EDT ATHE NA ([facility]) Nyla Boland, INCLINOMETER TESTER: [address], [place] [address], Ph. Attender: Nyla Boland [facility] 07/03/2020 12:00:00 AM EDT ATHE NA ([facility]) Nyla Boland, INCLINOMETER TESTER: [address], [address], [place] [address], Ph. Attender: Nyla Boland [facility] 07/03/2020 12:00:00 AM EDT ATHE NA ([facility]) Nyla Boland, INCLINOMETER TESTER: [address], [address], [place] [address], Ph. Attender: Nyla Boland [facility] 07/03/2020 12:00:00 AM EDT ATHE NA ([facility]) Nyla Boland, INCLINOMETER TESTER: [address], [place] [address], Ph. Attender: Nyla Boland [facility] 07/03/2020 12:00:00 AM EDT ATHE NA ([facility]) Nyla Boland, INCLINOMETER TESTER: [address], [place] [address], Ph. Attender: Nyla Boland [facility] 07/03/2020 12:00:00 AM EDT ATHE NA ([facility]) Nyla Boland, INCLINOMETER TESTER: [address], [address], [place] [address], Ph. Attender: Nyla Perlajose [facility] 07/03/2020 12:00:00 AM EDT ATHE NA ([facility]) Nyla Boland, INCLINOMETER TESTER: [address], [address], [place] [address], Ph. Attender: Nyla Boland [facility] - [facility] 07/03/2020 12:00:00 AM EDT ATHE NA ([facility]) Nyla Boland, INCLINOMETER TESTER: [address], [place] [address], Ph. Attender: Nyla Boland [facility] - [facility] 07/03/2020 12:00:00 AM EDT ATHE NA ([facility]) Nyla Boland, INCLINOMETER TESTER: [address], [place] [address], Ph. Attender: Nyla Boland [facility] - [facility] 07/03/2020 12:00:00 AM EDT ATHE NA ([facility]) Nyla Boland, INCLINOMETER TESTER: [address], [place] [address], Ph. Attender: Nyla Boland [facility] - [facility] 07/03/2020 12:00:00 AM EDT ATHE NA ([facility]) Nyla Boland, INCLINOMETER TESTER: [address], [place] [address], Ph. Attender: Nyla Boland [facility] - [facility] 07/03/2020 12:00:00 AM EDT ATHE NA ([facility]) Nyla Boland, INCLINOMETER TESTER: [address], [place] [address], Ph. Attender: Nyla Boland [facility] - [facility] 07/03/2020 12:00:00 AM EDT ATHE NA ([facility]) Nyal Woodson Jackiecolleen, INCLINOMETER TESTER: [address], [address], [place] [address], Ph. Attender: Nyla CASTRO [place] [facility] 07/03/2020 12:00:00 AM EDT ATHE NA ([facility]) Stephon Cullen MD: [address]62 [address], [address], [place] [address], Ph. Attender: Stephon Cullen MD [place] [facility] 06/20/2020 12:00:00 AM EDT ROLANDO ([facility]) Stephon Cullen MD: [address], [address], [place] [address], Ph. Attender: Stephon Cullen MD [place] [facility] 06/20/2020 12:00:00 AM EDT ROLANDO ([facility]) Stephon Cullen MD: [address]352 [address], [address], [place] [address], Ph. Attender: Stephon Cullen MD [place] [facility] 06/20/2020 12:00:00 AM EDT ROLANDO ([facility]) Stephon Cullen MD: [address]18 [address], [place] [address], Ph. Attender: Stephon Cullen MD [place] [facility] 06/20/2020 12:00:00 AM EDT ROLANDO ([facility]) Stephon Cullen MD: [address]458 [address], [address], [place] [address], Ph. Attender: Stephon Cullen MD [place] [facility] 06/20/2020 12:00:00 AM EDT ROLANDO ([facility]) Stephon Cullen MD: [address]58 [address], [address], [place] [address], Ph. Attender: Stephon Cullen MD [place] [facility] 06/20/2020 12:00:00 AM EDT ROLANDO ([facility]) Stephon Cullen MD: [address]759 [address], [address], [place] [address], Ph. Attender: Stephon Cullen MD [place] [facility] 06/20/2020 12:00:00 AM EDT ROLANDO ([facility]) Stephon Cullen MD: [address]05 [address], [address], [place] [address], Ph. Attender: Stephon Cullen MD [place] [facility] 06/20/2020 12:00:00 AM EDT ROLANDO ([facility]) Stephon Cullen MD: [address]54 [address], [address], [place] [address], Ph. Attender: Stephon VILLARREAL - [facility] 06/20/2020 12:00:00 AM EDT ROLANDO ([facility]) Stephon Cullen MD: [address]71 [address], [address], [place] [address], Ph. Attender: Stephon VILLARREAL - [facility] 06/20/2020 12:00:00 AM EDT ROLANDO ([facility]) Stephon Cullen MD: 84694 [address], [address], [place] [address], Ph. Attender: Stephon VILLARREAL - [facility] 06/20/2020 12:00:00 AM EDT ROLANDO ([facility]) Stephon Cullen MD: [address]14 [address], [address], [place] [address], Ph. Attender: Stephon Cullen MD [place] [facility] 06/20/2020 12:00:00 AM EDT ROLANDO ([facility]) Stephon Cullen MD: [address]05 [address], [address], [place] [address], Ph. Attender: Stephon Cullen MD [place] [facility] 06/20/2020 12:00:00 AM EDT ROLANDO ([facility]) Stephon Cullen MD: [address]3824 [address], [address], [place] [address], Ph. Attender: Stephon Cullen MD [place] [facility] 06/20/2020 12:00:00 AM EDT ROLANDO ([facility]) Stephon Cullen MD: [address]879 [address], [address], [place] [address], Ph. Attender: Stephon Cullen MD [place] [facility] 06/20/2020 12:00:00 AM EDT ROLANDO ([facility]) Stephon Cullen MD: [address]00 [address], [address], [place] [address], Ph. Attender: Stephon VILLARREAL - [facility] 06/20/2020 12:00:00 AM EDT ROLANDO ([facility]) Stephon Cullen MD: [address]508 [address], [address], [place] [address], Ph. Attender: Stephon VILLARREAL - [facility] 06/20/2020 12:00:00 AM EDT ROLANDO ([facility]) Stephon Cullen MD: [address]04 [address], [address], [place] [address], Ph. [phone] Attender: Stephon Cullen MD [place] [facility] 06/16/2020 12:00:00 AM EDT ROLANDO ([facility]) Stephon Cullen MD: 27268 [address], [address], [place] [address], Ph. [phone] Attender: Stephon VILLARREAL - [facility] 06/16/2020 12:00:00 AM EDT ROLANDO ([facility]) Stephon Cullen MD: [address]44 [address], [address], [place] [address], Ph. [phone] Attender: Stephon Cullen MD [place] [facility] 06/16/2020 12:00:00 AM EDT ROLANDO ([facility]) Stephon Cullen MD: 67331 [address], [address], [place] [address], Ph. [phone] Attender: Stephon Cullen MD [place] [facility] 06/16/2020 12:00:00 AM EDT ROLANDO ([facility]) Stephon Cullen MD: [address]35 [address], [address], [place] [address], Ph. [phone] Attender: Stephon VILLARREAL - [facility] 06/16/2020 12:00:00 AM EDT ROLANDO ([facility]) Stephon Cullen MD: [address]13 [address], [address], [place] [address], Ph. [phone] Attender: Stephon VILLARREAL - [facility] 06/16/2020 12:00:00 AM EDT ROLANDO ([facility]) Stephon Cullen MD: [address]99 [address], [address], [place] [address], Ph. [phone] Attender: Stephon Cullen MD [place] [facility] 06/16/2020 12:00:00 AM EDT ROLANDO ([facility]) Stephon Cullen MD: [address]25 [address], [address], [place] [address], Ph. [phone] Attender: Stephon Cullen MD [place] [facility] 06/16/2020 12:00:00 AM EDT ROLANDO ([facility]) Stephon Cullen MD: [address]69 [address], [address], [place] [address], Ph. [phone] Attender: Stephon VILLARREAL - [facility] 06/16/2020 12:00:00 AM EDT ROLANDO ([facility]) Stephon Cullen MD: [address]886 [address], [address], [place] [address], Ph. [phone] Attender: Stephon VILLARREAL - [facility] 06/16/2020 12:00:00 AM EDT ROLANDO ([facility]) Stephon Cullen MD: [address]31 [address], [address], [place] [address], Ph. [phone] Attender: Stephon Cullen MD [place] [facility] 06/16/2020 12:00:00 AM EDT ROLANDO ([facility]) Stephon Cullen MD: 50960 [address], [address], [place] [address], Ph. [phone] Attender: Stephon VILLARREAL - [facility] 06/16/2020 12:00:00 AM EDT ROLANDO ([facility]) Stephon Cullen MD: [address]01 [address], [address], [place] [address], Ph. [phone] Attender: Stephon VILLARREAL - [facility] 06/16/2020 12:00:00 AM EDT ROLANDO ([facility]) Stephon Cullen MD: [address]2234 [address], [address], [place] [address], Ph. [phone] Attender: Stephon Cullen MD [place] [facility] - [facility] 06/16/2020 12:00:00 AM EDT ROLANDO ([facility]) Stephon Cullen MD: [address]8056 [address], [address], [place] [address], Ph. [phone] Attender: Stephon VILLARREAL - [facility] - [facility] 06/16/2020 12:00:00 AM EDT ROLANDO ([facility]) Stephon Cullen MD: 51528 [address], [address], [place] [address], Ph. [phone] Attender: Stephon IVLLARREAL - [facility] - [facility] 06/16/2020 12:00:00 AM EDT ROLANDO ([facility]) Stephon Cullen MD: 08044 [address], [address], [place] [address], Ph. [phone] Attender: Stephon VILLARREAL - [facility] - [facility] 06/16/2020 12:00:00 AM EDT ROLANDO ([facility]) Stephon Cullen MD: [address]3343 [address], [address], [place] [address], Ph. [phone] Attender: Stephon VILLARREAL - [facility] - [facility] 06/16/2020 12:00:00 AM EDT ROLANDO ([facility]) Outpatient Attender: Deborah jaquez 06/09/2020 04:35:00 PM EDT MEDENT ([facility] Stephon Cullen MD: 42170 [address], [address], [place] [address], Ph. Attender: Stephon VILLARREAL - [facility] 06/06/2020 12:00:00 AM EDT ROLANDO ([facility]) Stephon Cullen MD: 37538 [address], [address], [place] [address], Ph. Attender: Stephon VILLARREAL - [facility] 06/06/2020 12:00:00 AM EDT ROLANDO ([facility]) Stephon Cullen MD: 85441 [address], [address], [place] [address], Ph. Attender: Stephon VILLARREAL - [facility] 06/06/2020 12:00:00 AM EDT ROLANDO ([facility]) Stephon Cullen MD: 40660 [address], [address], [place] [address], Ph. Attender: Stephon VILLARREAL - [facility] 06/06/2020 12:00:00 AM EDT ROLANDO ([facility]) Stephon Cullen MD: 52137 [address], [address], [place] [address], Ph. Attender: Stephon VILLARREAL - [facility] 06/06/2020 12:00:00 AM EDT ROLANDO ([facility]) Stephon Cullen MD: 80785 [address], [address], [place] [address], Ph. Attender: Stephon VILLARREAL - [facility] 06/06/2020 12:00:00 AM EDT ROLANDO ([facility]) Stephon Cullen MD: 49357 [address], [address], [place] [address], Ph. Attender: Stephon VILLARREAL - [facility] 06/06/2020 12:00:00 AM EDT ROLANDO ([facility]) Stephon Cullen MD: 12712 [address], [address], [place] [address], Ph. Attender: Stephon VILLARREAL - [facility] 06/06/2020 12:00:00 AM EDT ROLANDO ([facility]) Stephon Cullen MD: 29870 [address], [address], [place] [address], Ph. Attender: Stephon VILLARREAL - [facility] 06/06/2020 12:00:00 AM EDT ROLANDO ([facility]) Stephon Cullen MD: 93604 [address], [address], [place] [address], Ph. Attender: Stephon VILLARREAL - [facility] 06/06/2020 12:00:00 AM EDT ROLANDO ([facility]) Stephon Cullen MD: 71464 [address], [address], [place] [address], Ph. Attender: Stephon VILLARREAL - [facility] 06/06/2020 12:00:00 AM EDT ROLANDO ([facility]) Stephon Cullen MD: 61259 [address], [address], [place] [address], Ph. Attender: Stephon VILLARREAL - [facility] 06/06/2020 12:00:00 AM EDT ROLANDO ([facility]) Stephon Cullen MD: 61075 [address], [address], [place] [address], Ph. Attender: Stephon VILLARREAL - [facility] 06/06/2020 12:00:00 AM EDT ROLANDO ([facility]) Stephon Cullen MD: 54829 [address], [address], [place] [address], Ph. Attender: Stephon VILLARREAL - [facility] 06/06/2020 12:00:00 AM EDT ROLANDO ([facility]) Stephon Cullen MD: 29392 [address], [address], [place] [address], Ph. Attender: Stephon VILLARREAL - [facility] 06/06/2020 12:00:00 AM EDT ROLANDO ([facility]) Stephon Cullen MD: 11391 [address], [address], [place] [address], Ph. Attender: Stephon VILLARREAL - [facility] 06/06/2020 12:00:00 AM EDT ROLANDO ([facility]) Stephon Cullen MD: 97209 [address], [address], [place] [address], Ph. Attender: Stephon VILLARREAL - [facility] 06/06/2020 12:00:00 AM EDT ROLANDO ([facility]) Stephon Cullen MD: 46414 [address], [address], [place] [address], Ph. Attender: Stephon VILLARREAL - [facility] 06/06/2020 12:00:00 AM EDT ROLANDO ([facility]) Stephon Cullen MD: 69414 [address], [address], [place] [address], Ph. Attender: Stephon VILLARREAL - [facility] [facility] 12:00:00 AM EDT [facility] ([facility]) Stephon Cullen MD: [id number], [address], [place] [address], Ph. [phone] Attender: Ste[place] Cullen [place] [facility] 06/02/2020 12:00:00 AM EDT [facility] ([facility]) Stephon Cullen MD: [id number], [address], [place] [address], Ph. [phone] Attender: Stephon VILLARREAL - [facility] 06/02/2020 12:00:00 AM EDT [facility] ([facility]) Stephon Cullen MD: [id number], [address], [place] [address], Ph. [phone] Attender: Stephon VILLARREAL - [facility] 06/02/2020 12:00:00 AM EDT [facility] ([facility]) Stephon Cullen MD: [id number], [address], [place] [address], Ph. [phone] Attender: Stephon Cullen MD [facility] 06/02/2020 12:00:00 AM EDT [facility] ([facility]) Stephon Cullen MD: [id number], [address], [place] [address], Ph. [phone] Attender: Stephon Cullen MD [facility] 06/02/2020 12:00:00 AM EDT [facility] ([facility]) Stephon Cullen MD: [id number], [address], [place] [address], Ph. [phone] Attender: Stephon VILLARREAL - [facility] 06/02/2020 12:00:00 AM EDT [facility] ([facility]) Stephon Cullen MD: [id number], [address], [place] [address], Ph. [phone] Attender: Stephon Cullen MD [place] [facility] 06/02/2020 12:00:00 AM EDT [facility] ([facility]) Stephon Cullen MD: [id number], [address], [place] [address], Ph. [phone] Attender: Stephon Cullen MD [place] [facility] 06/02/2020 12:00:00 AM EDT [facility] ([facility]) Stephon Cullen MD: [id number], [address], [place] [address], Ph. [phone] Attender: Stephon Cullen MD [facility] 06/02/2020 12:00:00 AM EDT [facility] ([facility]) Stephon Cullen MD: [id number], [address], [place] [address], Ph. [phone] Attender: Stephon Cullen MD [facility] 06/02/2020 12:00:00 AM EDT [facility] ([facility]) Stephon Cullen MD: [id number], [address], [place] [address], Ph. [phone] Attender: Stephon Cullen MD [facility] 06/02/2020 12:00:00 AM EDT [facility] ([facility]) Stephon Cullen MD: [id number], [address], [place] [address], Ph. [phone] Attender: Stephon Cullen MD [facility] 06/02/2020 12:00:00 AM EDT [facility] ([facility]) Stephon Cullen MD: [id number], [address], [place] [address], Ph. [phone] Attender: Stephon VILLARREAL - [facility] 06/02/2020 12:00:00 AM EDT [facility] ([facility]) Stephon Cullen MD: [id number], [address], [place] [address], Ph. [phone] Attender: Stephon VILLARREAL - [facility] 06/02/2020 12:00:00 AM EDT [facility] ([facility]) Stephon Cullen MD: [id number], [address], [place] [address], Ph. [phone] Attender: Stephon VILLARREAL - [facility] 06/02/2020 12:00:00 AM EDT [facility] ([facility]) Stephon Cullen MD: [id number], [address], [place] [address], Ph. [phone] Attender: Stephon VILLARREAL - [facility] 06/02/2020 12:00:00 AM EDT [facility] ([facility]) Stephon Cullen MD: [id number], [address], [place] [address], Ph. [phone] Attender: Stephon VILLARREAL - [facility] 06/02/2020 12:00:00 AM EDT [facility] ([facility]) Stephon Cullen MD: [id number], [address], [place] [address], Ph. [phone] Attender: Stephon VILLARREAL - [facility] 06/02/2020 12:00:00 AM EDT [facility] ([facility]) Stephon Cullen MD: [id number], [address], [place] [address], Ph. [phone] Attender: Stephon VILLARREAL - [facility] [place] [facility] 06/02/2020 12:00:00 AM EDT [facility] ([facility]) Stephon Cullen MD: [id number] [address], [place] [address], Ph. [phone] Attender: Stephon Cullen [place] [facility] 06/02/2020 12:00:00 AM EDT [facility] ([facility]) Immunizations Vaccine Date Status Description Data Source(s) COVID-19 VACCINE Jae 02/23/2021 12:00:00 AM EDT completed [facility] Vaccine Series Complete: YESThis Data wa s Submitted to [facility] Via [facility]. Medications Medication Brand Name Start Date Product Form Dose Route Admi nistrative Instructions Pharmacy Instructions Status Indications Reaction Description Data Source(s) 8 mg 07/09/2021 12:00:00 AM EDT tablet,disintegrating [address] ONE TABLET IN MOUTH THREE TIMES A DAY FOR [address] ONE TABLET IN MOUTH THREE TIMES A DAY FOR 5 DAYS SOLD: 07/09/2021 [facility] 4 mg 06/30/2021 12:00:00 AM EDT tablet 6 TAKE ONE TABLET BY MOUTH TWICE A DAY NEEDED VOMITING TAKE ONE TABLET BY MOUTH TWICE A DAY NEEDED VOMITIN G SOLD: 06/30/2021 [facility] Ondansetron 4 MG Disintegrating Oral Tablet ONDANSETRON 06/03/2021 12:00:00 AM EDT tablet,disintegrating 20 DISSOLVE O NE TABLET ON TONGUE EVERY 6 HOURS IF NEEDED DISSOLVE ONE TABLET ON TONGUE EVERY 6 HOURS IF NEEDED SOLD: 05/08 [facility] 50 mg 05/05/2021 12:00:00 AM EDT tablet 60 TAKE ONE TABLET BY MOUTH TWICE A DAY TAKE ONE TABLET BY MOUTH TWICE A DAY SOLD: 05/05/2021 [facility] 8 mg 04/08/2021 12:00:00 AM EDT tablet,disintegrating [address] ONE TABLET UNDER THE TONGUE THREE TIMES A DAY FOR [address] ONE TABLET UNDER THE TONGUE THREE TIMES A DAY FOR 5 DAYS SOLD: 04/08/2021 [facility] 225 mg/1.5 mL 04/05/2021 12:00:00 AM EDT syringe 1 INJECT 1.5ML UNDER THE SKIN MONTHLY INJECT 1.5ML UNDER THE SKIN MONTHLY SOLD: 06/30/2021 [facility] 225 mg/1.5 mL 04/05/2021 12:00:00 AM EDT syringe 1 INJECT 1.5ML UNDER THE SKIN MONTHLY INJECT 1.5ML UNDER THE SKIN MONTHLY SOLD: 04/06/2021 [facility] 225 mg/1.5 mL 04/05/2021 12:00:00 AM EDT syringe 1 INJECT 1.5ML UNDER THE SKIN MONTHLY INJECT 1.5ML UNDER THE SKIN MONTHLY SOLD: 05/05/2021 [facility] Trulicity Trulicity 02/20/2021 12:00:00 AM EDT act shania [facility] ([facility] ) Ondansetron 4 MG Disintegrating Oral Tablet ONDANSETRON 01/12/2021 12:00:00 AM EDT tablet,disintegrating 21 PLACE ONE TABLET BY MOUTH THREE TIMES A DAY FOR [address] ONE TABLET BY MOUTH THREE TIMES A DAY FOR 7 DAYS SOLD: 06/2021 [facility] 75 mg 01/09/2021 12:00:00 AM EDT capsule 90 TAKE ONE CAPSULE BY MOUTH EVERY DAY TAKE ONE CAPSULE BY MOUTH EVERY DAY SOLD: 01/10/2021 [facility] 75 mg 01/09/2021 12:00:00 AM EDT capsule 90 TAKE ONE CAPSULE BY MOUTH EVERY DAY TAKE ONE CAPSULE BY MOUTH EVERY DAY SOLD: 04/22/2021 [facility] 50 mg 12/19/2020 12:00:00 AM EDT tablet 60 TAKE ONE TABLET BY MOUTH TWICE A DAY TAKE ONE TABLET BY MOUTH TWICE A DAY SOLD: 12/21/2020 [facility] 4 mg 12/19/2020 12:00:00 AM EDT tablet 5 TAKE ONE TABLET BY MOUTH EVERY 6 TO 8 HOURS NEEDED FOR NAUSEA AND VOMITING TAKE ONE TABLET BY MOUTH EVERY 6 TO 8 HOURS NEEDED FOR NAUSEA AND VOMITING SOLD: 12/21/2020 [facility] 50 mg 12/12/2020 12:00:00 AM EDT tablet 30 TAKE ONE TABLET BY MOUTH AT LEAST 2 HOURS BETWEEN DOSES NEEDED TWO TIMES A DAY TAKE ONE TABLET BY MOUTH AT LEAST 2 HOURS BETWEEN DOSES NEEDED TWO TIMES A DAY SOLD: 02/18/2021 [facility] 50 mg 12/12/2020 12:00:00 AM EDT tablet 30 TAKE ONE TABLET BY MOUTH AT LEAST 2 HOURS BETWEEN DOSES NEEDED TWO TIMES A DAY TAKE ONE TABLET BY MOUTH AT LEAST 2 HOURS BETWEEN DOSES NEEDED TWO TIMES A DAY SOLD: 12/15/2020 [facility] 25 mg 11/28/2020 12:00:00 AM EDT tablet 60 TAKE ONE TABLET BY MOUTH TWICE A DAY DIRECTED TAKE ONE TABLET BY MOUTH TWICE A DAY DIRECTED SOLD: 11/28/2020 [facility] 4 mg 11/21/2020 12:00:00 AM EDT tablet 5 TAKE ONE TABLET BY MOUTH EVERY 6 TO 8 HOURS NEEDED FOR NAUSEA / VOMITING TAKE ONE TABLET BY MOUTH EVERY 6 TO 8 HOURS NEEDED FOR NAUSEA / VOMITING SOLD: 11/21/2020 [facility] 30 mg 11/14/2020 12:00:00 AM EST capsule,delayed release (DR/EC) 90 TAKE ONE CAPSULE BY MOUTH EVERY DAY TAKE ONE CAPSULE BY MOUTH EVERY DAY SOLD: 11/14/2020 [facility] 8 mg 11/07/2020 12:00:00 AM EST tablet,disintegrating [address] ONE TABLET UNDER THE TONGUE EVERY [address] ONE TABLET UNDER THE TONGUE EVERY 8 HOURS NEEDED SOLD: 11/07/2020 [facility] Ondansetron 8 MG Disintegrating Oral Tablet Ondansetron 11/07/2020 12:00:00 AM EST active [facility] ([facility]) 225 mg/1.5 mL 11/05/2020 12:00:00 AM EST syringe 1 INJECT 1.5ML UNDER THE SKIN MONTHLY INJECT 1.5ML UNDER THE SKIN MONTHLY SOLD: 02/09/2021 [facility] 225 mg/1.5 mL 11/05/2020 12:00:00 AM EST syringe 1 INJECT 1.5ML UNDER THE SKIN MONTHLY INJECT 1.5ML UNDER THE SKIN MONTHLY SOLD: 12/19/2020 [facility] 225 mg/1.5 mL 11/05/2020 12:00:00 AM EST syringe 1 INJECT 1.5ML UNDER THE SKIN MONTHLY INJECT 1.5ML UNDER THE SKIN MONTHLY SOLD: 12/06/2020 [facility] 225 mg/1.5 mL 11/05/2020 12:00:00 AM EST syringe 1 INJECT 1.5ML UNDER THE SKIN MONTHLY INJECT 1.5ML UNDER THE SKIN MONTHLY SOLD: 03/04/2021 [facility] 225 mg/1.5 mL 11/05/2020 12:00:00 AM EST syringe 1 INJECT 1.5ML UNDER THE SKIN MONTHLY INJECT 1.5ML UNDER THE SKIN MONTHLY SOLD: 11/05/2020 [facility] 250 mg 10/11/2020 12:00:00 AM EST tablet extended release 24 hr 30 TAKE ONE TABLET BY MOUTH TWICE A DAY TAKE ONE TABLET BY MOUTH TWICE A DAY SOLD: 10/11/2020 [facility] BD Pen Needle/Original/Ultra-Fine/29G X 12.7mm 09/10/2020 12:00:00 AM EST active [facility] ([facility]) Tresiba Flextouch Tresiba Flextouch 08/21/2020 12:00:00 AM EST active [facility] ([facility]) Tresiba Flextouch Tresiba Flextouch 08/20/2020 12:00:00 AM EST completed [facility] ([facility]) 40 mg 08/19/2020 12:00:00 AM EST tablet 30 TAKE ONE TABLET BY MOUTH EVERY DAY TAKE ONE TABLET BY MOUTH EVERY DAY SOLD: 08/23/2020 [facility] Ondansetron 4 MG Oral Tablet Ondansetron HCL 06/09/2020 12:00:00 AM E DT ORAL completed [facility] ([facility]) Dicyclomine Hydrochloride 10 MG Oral Capsule Dicyclomine HCL 06/09/2020 12:00:00 AM EDT ORAL completed [facility] ([facility]) 4 mg 06/09/2020 12:00:00 AM EDT tablet [...] FOR DIARRHEA SOLD: 06/10/2020 [facility] 225 mg/1.5 mL 05/02/2020 [...] UNDER THE SKIN SOLD: 10/04/2020 [facility] 50 mg 04/18/2020 12:00:00 AM [...] REPEAT IN TWO HOURS IF NECESSARY SOLD: 12/05/2020 [facility] 50 mg 04/18/2020 12:00:00 AM EDT tablet 10 TAKE ONE TABLET BY MOUTH AT ONSET OF HEADACHE, MAY REPEAT IN TWO HOURS IF NECESSARY TAKE ONE TABLET BY MOUTH AT ONSET OF HEADACHE, MAY REPEAT IN TWO HOURS IF NECESSARY SOLD: 09/24/2020 [facility] 50 mg 04/18/2020 12:00:00 AM EDT tablet 10 TAKE ONE TABLET BY MOUTH AT ONSET OF HEADACHE, MAY REPEAT IN TWO HOURS IF NECESSARY TAKE ONE TABLET BY MOUTH AT ONSET OF HEADACHE, MAY REPEAT IN TWO HOURS IF NECESSARY SOLD: 11/09/2020 [facility] 75 mg 02/17/2020 12:00:00 AM EDT capsule 30 TAKE ONE CAPSULE BY MOUTH EVERY DAY TAKE ONE CAPSULE BY MOUTH EVERY DAY SOLD: 08/01/2020 [facility] 75 mg 02/17/2020 12:00:00 AM EDT capsule 30 TAKE ONE CAPSULE BY MOUTH EVERY DAY TAKE ONE CAPSULE BY MOUTH EVERY DAY SOLD: 06/21/2020 [facility] 75 mg 02/17/2020 12:00:00 AM EDT capsule 30 TAKE ONE CAPSULE BY MOUTH EVERY DAY TAKE ONE CAPSULE BY MOUTH EVERY DAY SOLD: 09/01/2020 [facility] 75 mg 02/17/2020 12:00:00 AM EDT capsule 30 TAKE ONE CAPSULE BY MOUTH EVERY DAY TAKE ONE CAPSULE BY MOUTH EVERY DAY SOLD: 12/10/2020 [facility] Acetaminophen 300 MG / Codeine Phosphate 30 MG Oral Tablet acetaminophen 300 mg- codeine 30 mg tablet as needed acetaminophen 300 mg-codeine 30 mg table t as needed 04/03/2019 12:00:00 AM EDT completed acetaminophen 300 MG / codeine phosphate 30 MG Oral Tablet [facility] ([facility]) Acetaminophen 300 MG / Codeine Phosphate 30 MG Oral Tablet acetaminophen 300 mg- codeine 30 mg tablet as needed acetaminophen 300 mg-codeine 30 mg table t as needed 04/03/2019 12:00:00 AM EDT completed acetaminophen 300 MG / codeine phosphate 30 MG Oral Tablet [facility] ([facility]) Acetaminophen 300 MG / Codeine Phosphate 30 MG Oral Tablet acetaminophen 300 mg- codeine 30 mg tablet as needed acetaminophen 300 mg-codeine 30 mg table t as needed 04/03/2019 12:00:00 AM EDT completed acetaminophen 300 MG / codeine phosphate 30 MG Oral Tablet [facility] ([facility]) Acetaminophen 300 MG / Codeine Phosphate 30 MG Oral Tablet acetaminophen 300 mg- codeine 30 mg tablet as needed acetaminophen 300 mg-codeine 30 mg table t as needed 04/03/2019 12:00:00 AM EDT completed acetaminophen 300 MG / codeine phosphate 30 MG Oral Tablet [facility] ([facility]) Acetaminophen 300 MG / Codeine Phosphate 30 MG Oral Tablet acetaminophen 300 mg- codeine 30 mg tablet as needed acetaminophen 300 mg-codeine 30 mg table t as needed 04/03/2019 12:00:00 AM EDT completed acetaminophen 300 MG / codeine phosphate 30 MG Oral Tablet [facility] ([facility]) Acetaminophen 300 MG / Codeine Phosphate 30 MG Oral Tablet acetaminophen 300 mg- codeine 30 mg tablet as needed acetaminophen 300 mg-codeine 30 mg table t as needed 04/03/2019 12:00:00 AM EDT completed acetaminophen 300 MG / codeine phosphate 30 MG Oral Tablet [facility] ([facility]) Acetaminophen 300 MG / Codeine Phosphate 30 MG Oral Tablet acetaminophen 300 mg- codeine 30 mg tablet as needed acetaminophen 300 mg-codeine 30 mg table t as needed 04/03/2019 12:00:00 AM EDT completed acetaminophen 300 MG / codeine phosphate 30 MG Oral Tablet [facility] ([facility]) Acetaminophen 300 MG / Codeine Phosphate 30 MG Oral Tablet acetaminophen 300 mg- codeine 30 mg tablet as needed acetaminophen 300 mg-codeine 30 mg table t as needed 04/03/2019 12:00:00 AM EDT completed acetaminophen 300 MG / codeine phosphate 30 MG Oral Tablet [facility] ([facility]) Acetaminophen 300 MG / Codeine Phosphate 30 MG Oral Tablet acetaminophen 300 mg- codeine 30 mg tablet as needed acetaminophen 300 mg-codeine 30 mg table t as needed 04/03/2019 12:00:00 AM EDT completed acetaminophen 300 MG / codeine phosphate 30 MG Oral Tablet [facility] ([facility]) Ondansetron 4 MG Disintegrating Oral Tab let ondansetron [address] ONE TABLET BY MOUTH THREE TIMES A DAY FOR 7 DAYS ondansetron [address] ONE TABLET BY MOUTH THREE TIMES A DAY FOR 7 DAYS completed ondansetron 4 MG Disintegrating Oral Tablet [facility] ([facility]) Ondansetron 4 MG Oral Tablet ondansetron HCl 4 mg tabl et ondansetron HCl 4 mg tablet completed ondansetron 4 M G Oral Tablet [facility] ([facility]) Acetaminophen 325 MG / Hydrocodone Juanita trate 7.5 MG Oral Tablet hydrocodone 7.5 mg-acetaminophen 325 mg tablet hydrocodone 7.5 mg-acetaminophen 325 mg tablet completed acetaminophen 325 MG / hydrocodone bitartrate 7.5 MG Oral Tablet [facility] ([facility]) Acetaminophen 325 MG / Hydrocodone Juanita trate 5 MG Oral Tablet hydrocodone 5 mg- acetaminophen 325 mg tablet as needed hydrocodone 5 mg-acetaminophen 325 mg tablet as needed completed acetaminophen 325 MG / hydrocodone bitartrate 5 MG Oral Tablet [facility] ([facility]) Fluzone Quad [id number] (PF) 60 mcg (15 m cg x 4)/0.5 mL IM syringe INJECT INTRAMUSCULARLY IN THE LEFT ARM [id number] compl eted 0.5 ML influenza A virus A/ (H1N1) antigen 0.03 MG/ML / influenza A virus A/ (H3N2) antigen 0.03 MG/ML / influenza B virus B/[place] antigen 0.03 MG/ML / influenza B virus B/[facility] antigen 0.03 MG/ML Prefilled Syringe [Fluzone Quadrivalent ] [facility] ([facility]) Simvastatin 20 MG Oral Tablet simvastatin 20 mg tablet one by mouth once daily simvastatin 20 mg tablet one by mouth once daily completed simvastatin 20 MG Oral Tablet [facility] ([facility]) Divalproex Sodium 500 MG Delayed Release Oral Tablet divalproex 500 mg tablet,delayed release divalproex 500 mg tablet,delayed release completed divalproex sodium 500 MG Delayed Release Oral Tablet [facility] ([facility]) Divalproex Sodium 250 MG Delayed Release Oral Tablet divalproex 250 mg tablet,delayed release divalproex 250 mg tablet,delayed release completed divalproex sodium 250 MG Delayed Release Oral Tablet [facility] ([facility]) Ondansetron 4 MG Disintegrating Oral Tab let ondansetron 4 mg disintegrating tablet ondansetron 4 mg disintegrating tablet completed ondansetron 4 MG Disintegrating Oral Tablet [facility] ([facility]) Acetaminophen 325 MG / Hydrocodone Juanita trate 7.5 MG Oral Tablet hydrocodone 7.5 mg-acetaminophen 325 mg tablet hydrocodone 7.5 mg-acetaminophen 325 mg tablet completed acetaminophen 325 MG / hydrocodone bitartrate 7.5 MG Oral Tablet [facility] ([facility]) doxycycline hyclate 100 MG Oral Tablet doxycycline hyc late 100 mg tablet doxycycline hyclate 100 mg tablet comp leted doxycycline hyclate 100 MG Oral Tablet [facility] ([facility]) Sumatriptan 25 MG Oral Tablet sumatriptan 25 mg tablet sumat riptan 25 mg tablet completed sumatriptan 25 MG Oral Tablet [facility] ([facility]) Amoxicillin 875 MG / Clavulanate 125 MG Oral Tablet amoxicillin 875 mg-potassium clavulanate 125 mg tablet amoxicillin 875 mg-potassium clavulanate 125 mg tablet completed amoxicillin 875 MG / clavulanate 125 MG Oral Tablet [facility] ([facility]) Ondansetron 8 MG Disintegrating Oral Tab let ondansetron 8 mg disintegrating tablet ondansetron 8 mg disintegrating tablet completed ondansetron 8 MG Disintegrating Oral Tablet [facility] ([facility]) carvedilol 3.125 MG Oral Tablet carvedilol 3.125 mg ta blet carvedilol 3.125 mg tablet completed carvedilol 3.12 5 MG Oral Tablet [facility] ([facility]) Amoxicillin 875 MG / Clavulanate 125 MG Oral Tablet amoxicillin 875 mg-potassium clavulanate 125 mg tablet amoxicillin 875 mg-potassium clavulanate 125 mg tablet completed amoxicillin 875 MG / clavulanate 125 MG Oral Tablet [facility] ([facility]) duloxetine 30 MG Delayed Release Oral Ca psule duloxetine 30 mg capsule,delayed release TAKE ONE CAPSULE BY MOUTH EVERY DAY duloxetine 30 mg capsule,delayed release TAKE ONE CAPSULE BY MOUTH EVERY DAY completed duloxetine 30 MG Delayed Release Oral Capsule [facility] ([facility]) Acetaminophen 325 MG / Hydrocodone Juanita trate 7.5 MG Oral Tablet hydrocodone 7.5 mg-acetaminophen 325 mg tablet hydrocodone 7.5 mg-acetaminophen 325 mg tablet completed acetaminophen 325 MG / hydrocodone bitartrate 7.5 MG Oral Tablet [facility] ([facility]) 0.5 ML pneumococcal capsular polysacchar triston [...] Prefilled Syringe [Pneumovax 23] [facility] ([facility]) Naproxen 250 MG Oral Tablet naproxen 250 mg tablet as needed naproxen 250 mg tablet as needed completed napro xen 250 MG Oral Tablet [facility] ([facility]) Naproxen 250 MG Oral Tablet naproxen 250 mg tablet as needed naproxen 250 mg tablet as needed completed napro xen 250 MG Oral Tablet [facility] ([facility]) duloxetine 30 MG Delayed Release Oral Ca psule duloxetine 30 mg capsule,delayed release TAKE ONE CAPSULE BY MOUTH EVERY DAY duloxetine 30 mg capsule,delayed release TAKE ONE CAPSULE BY MOUTH EVERY DAY completed duloxetine 30 MG Delayed Release Oral Capsule [facility] ([facility]) Ondansetron 8 MG Disintegrating Oral Tab let ondansetron 8 mg disintegrating tablet ondansetron 8 mg disintegrating tablet completed ondansetron 8 MG Disintegrating Oral Tablet [facility] ([facility]) Acetaminophen 325 MG / Hydrocodone Juanita trate 7.5 MG Oral Tablet hydrocodone 7.5 mg-acetaminophen 325 mg tablet hydrocodone 7.5 mg-acetaminophen 325 mg tablet completed acetaminophen 325 MG / hydrocodone bitartrate 7.5 MG Oral Tablet [facility] ([facility]) doxycycline hyclate 100 MG Oral Tablet doxycycline hyc late 100 mg tablet doxycycline hyclate 100 mg tablet comp leted doxycycline hyclate 100 MG Oral Tablet [facility] ([facility]) 0.5 ML pneumococcal capsular polysacchar triston [...] Prefilled Syringe [Pneumovax 23] [facility] ([facility]) doxycycline hyclate 100 MG Oral Tablet doxycycline hyc late 100 mg tablet doxycycline hyclate 100 mg tablet comp leted doxycycline hyclate 100 MG Oral Tablet [facility] ([facility]) zonisamide 50 MG Oral Capsule zonisamide 50 mg capsule as needed zonisamide 50 mg capsule as needed completed z onisamide 50 MG Oral Capsule [facility] ([facility]) Fluzone Quad [id number] (PF) 60 mcg (15 m cg x 4)/0.5 mL IM syringe INJECT INTRAMUSCULARLY IN THE LEFT ARM [id number] compl eted 0.5 ML influenza A virus A/[place] (H1N1) antigen 0.03 MG/ML / influenza A virus A/ (H3N2) antigen 0.03 MG/ML / influenza B virus B/[place] antigen 0.03 MG/ML / influenza B virus B/[facility] antigen 0.03 MG/ML Prefilled Syringe [Fluzone Quadrivalent ] [facility] ([facility]) Simvastatin 20 MG Oral Tablet simvastatin 20 mg tablet one by mouth once daily simvastatin 20 mg tablet one by mouth once daily completed simvastatin 20 MG Oral Tablet [facility] ([facility]) Divalproex Sodium 500 MG Delayed Release Oral Tablet divalproex 500 mg tablet,delayed release divalproex 500 mg tablet,delayed release completed divalproex sodium 500 MG Delayed Release Oral Tablet [facility] ([facility]) Naproxen 250 MG Oral Tablet naproxen 250 mg tablet as needed naproxen 250 mg tablet as needed completed napro xen 250 MG Oral Tablet [facility] ([facility]) Ondansetron 8 MG Oral Tablet ondansetron HCl 8 mg tabl et ondansetron HCl 8 mg tablet completed ondansetron 8 M G Oral Tablet [facility] ([facility]) Acetaminophen 325 MG / Hydrocodone Juanita trate 5 MG Oral Tablet hydrocodone 5 mg- acetaminophen 325 mg tablet as needed hydrocodone 5 mg-acetaminophen 325 mg tablet as needed completed acetaminophen 325 MG / hydrocodone bitartrate 5 MG Oral Tablet [facility] ([facility]) Ondansetron 8 MG Disintegrating Oral Tab let ondansetron 8 mg disintegrating tablet ondansetron 8 mg disintegrating tablet completed ondansetron 8 MG Disintegrating Oral Tablet [facility] ([facility]) Simvastatin 20 MG Oral Tablet simvastatin 20 mg tablet one by mouth once daily simvastatin 20 mg tablet one by mouth once daily completed simvastatin 20 MG Oral Tablet [facility] ([facility]) Sumatriptan 25 MG Oral Tablet sumatriptan 25 mg tablet sumat riptan 25 mg tablet completed sumatriptan 25 MG Oral Tablet [facility] ([facility]) Acetaminophen 325 MG / Hydrocodone Juanita trate 7.5 MG Oral Tablet hydrocodone 7.5 mg-acetaminophen 325 mg tablet hydrocodone 7.5 mg-acetaminophen 325 mg tablet completed acetaminophen 325 MG / hydrocodone bitartrate 7.5 MG Oral Tablet [facility] ([facility]) Ondansetron 4 MG Disintegrating Oral Tab let ondansetron 4 mg disintegrating tablet ondansetron 4 mg disintegrating tablet completed ondansetron 4 MG Disintegrating Oral Tablet [facility] ([facility]) Simvastatin 20 MG Oral Tablet simvastatin 20 mg tablet one by mouth once daily simvastatin 20 mg tablet one by mouth once daily completed simvastatin 20 MG Oral Tablet [facility] ([facility]) 0.5 ML pneumococcal capsular polysacchar triston [...] Prefilled Syringe [Pneumovax 23] [facility] ([facility]) Ondansetron 4 MG Disintegrating Oral Tab let ondansetron 4 mg disintegrating tablet ondansetron 4 mg disintegrating tablet completed ondansetron 4 MG Disintegrating Oral Tablet [facility] ([facility]) Acetaminophen 325 MG / Hydrocodone Juanita trate 5 MG Oral Tablet hydrocodone 5 mg- acetaminophen 325 mg tablet as needed hydrocodone 5 mg-acetaminophen 325 mg tablet as needed completed acetaminophen 325 MG / hydrocodone bitartrate 5 MG Oral Tablet [facility] ([facility]) Ondansetron 4 MG Oral Tablet ondansetron HCl 4 mg tabl et ondansetron HCl 4 mg tablet completed ondansetron 4 M G Oral Tablet [facility] ([facility]) Fluzone Quad (PF) 60 mcg (15 m cg x 4)/0.5 mL IM syringe INJECT INTRAMUSCULARLY IN THE LEFT ARM [id number] compl eted 0.5 ML influenza A virus A/[place] (H1N1) antigen 0.03 MG/ML / influenza A virus A/ (H3N2) antigen 0.03 MG/ML / influenza B virus B/ antigen 0.03 MG/ML / influenza B virus B/[facility] antigen 0.03 MG/ML Prefilled Syringe [Fluzone Quadrivalent ] [facility] ([facility]) Flucelvax Quad 60 mcg (15 mcg x 4)/0.5 mL IM suspension [id number] completed influenza A vi jeremías A/[place] (H3N2) antigen 0.03 MG/ML / influenza A virus A//[id number] (H1N1) antigen 0.03 MG/ML / influenza B virus B/[place] antigen 0.03 MG/ML / influenza B virus B/[place]/[id number] antigen 0.03 MG/ML Injectable Suspension [facility] ([facility]) carvedilol 3.125 MG Oral Tablet carvedilol 3.125 mg ta blet carvedilol 3.125 mg tablet completed carvedilol 3.12 5 MG Oral Tablet [facility] ([facility]) Naproxen 250 MG Oral Tablet naproxen 250 mg tablet as needed naproxen 250 mg tablet as needed completed napro xen 250 MG Oral Tablet [facility] ([facility]) Acetaminophen 325 MG / Hydrocodone Juanita trate 5 MG Oral Tablet hydrocodone 5 mg- acetaminophen 325 mg tablet as needed hydrocodone 5 mg-acetaminophen 325 mg tablet as needed completed acetaminophen 325 MG / hydrocodone bitartrate 5 MG Oral Tablet [facility] ([facility]) Amoxicillin 875 MG / Clavulanate 125 MG Oral Tablet amoxicillin 875 mg-potassium clavulanate 125 mg tablet amoxicillin 875 mg-potassium clavulanate 125 mg tablet completed amoxicillin 875 MG / clavulanate 125 MG Oral Tablet [facility] ([facility]) topiramate 50 MG Oral Tablet topiramate 50 mg tablet a s needed topiramate 50 mg tablet as needed completed topir amate 50 MG Oral Tablet [facility] ([facility]) Amoxicillin 875 MG / Clavulanate 125 MG Oral Tablet amoxicillin 875 mg-potassium clavulanate 125 mg tablet amoxicillin 875 mg-potassium clavulanate 125 mg tablet completed amoxicillin 875 MG / clavulanate 125 MG Oral Tablet [facility] ([facility]) Allopurinol 100 MG Oral Tablet allopurinol 100 mg tabl et allopurinol 100 mg tablet completed allopurinol 100 MG Oral Tablet [facility] ([facility]) Allopurinol 100 MG Oral Tablet allopurinol 100 mg tabl et allopurinol 100 mg tablet completed allopurinol 100 MG Oral Tablet [facility] ([facility]) Flucelvax Quad 60 mcg (15 mcg x 4)/0.5 mL intramuscular susp INJECT 0.5ML DIRECTED [id number] completed influenza A virus A/ (H3N2) antigen 0.03 MG/ML / influenza A virus A/[facility] (H1N1) antigen 0.03 MG/ML / influenza B virus B/ antigen 0.03 MG/ML / influenza B virus B/[facility]/[id number] antigen 0.03 MG/ML Injectable Suspension [Flucelvax Quadrivalent ] [facility] ([facility]) Divalproex Sodium 500 MG Delayed Release Oral Tablet divalproex 500 mg tablet,delayed release divalproex 500 mg tablet,delayed release completed divalproex sodium 500 MG Delayed Release Oral Tablet [facility] ([facility]) Ondansetron 8 MG Disintegrating Oral Tab let ondansetron 8 mg disintegrating tablet ondansetron 8 mg disintegrating tablet completed ondansetron 8 MG Disintegrating Oral Tablet [facility] ([facility]) Metformin hydrochloride 1000 MG Oral Tablet metformin 1,000 mg tablet metformin 1,000 mg tablet completed metformin hydrochloride 1000 MG Oral Tablet [facility] ([facility]) Metoclopramide 10 MG Oral Tablet metoclopramide 10 mg tablet metoclopramide 10 mg tablet completed metocloprami de 10 MG Oral Tablet [facility] ([facility]) carvedilol 3.125 MG Oral Tablet carvedilol 3.125 mg ta blet carvedilol 3.125 mg tablet completed carvedilol 3.12 5 MG Oral Tablet [facility] ([facility]) Fluzone Quad (PF) 60 mcg (15 m cg x 4)/0.5 mL IM syringe INJECT INTRAMUSCULARLY IN THE LEFT ARM [id number] compl eted 0.5 ML influenza A virus A/[place] (H1N1) antigen 0.03 MG/ML / influenza A virus A/ (H3N2) antigen 0.03 MG/ML / influenza B virus B/[place] antigen 0.03 MG/ML / influenza B virus B/[facility] antigen 0.03 MG/ML Prefilled Syringe [Fluzone Quadrivalent ] [facility] ([facility]) Flucelvax Quad 60 mcg (15 mcg x 4)/0.5 mL IM suspension [id number] completed influenza A vi jeremías A/[place] (H3N2) antigen 0.03 MG/ML / influenza A virus A//[id number]/2015 (H1N1) antigen 0.03 MG/ML / influenza B virus B/[place] antigen 0.03 MG/ML / influenza B virus B//[id number] antigen 0.03 MG/ML Injectable Suspension ROL[facility] ([facility]) Flucelvax Quad 60 mcg (15 mcg x 4)/0.5 mL intramuscular susp INJECT 0.5ML DIRECTED [id number] completed influenza A virus A/ (H3N2) antigen 0.03 MG/ML / influenza A virus A/[place] (H1N1) antigen 0.03 MG/ML / influenza B virus B/[facility] antigen 0.03 MG/ML / influenza B virus B//[id number]/2016 antigen 0.03 MG/ML Injectable Suspension [Flucelvax Quadrivalent ] [facility] ([facility]) Ondansetron 8 MG Oral Tablet ondansetron HCl 8 mg tabl et ondansetron HCl 8 mg tablet completed ondansetron 8 M G Oral Tablet [facility] ([facility]) topiramate 25 MG Oral Tablet topiramate 25 mg tablet TAKE ONE TABLET BY MOUTH TWICE A DAY DIRECTED topiramate 25 mg tablet TAKE ONE TABLET BY MOUTH TWICE A DAY DIRECTED completed topira mate 25 MG Oral Tablet [facility] ([facility]) Ondansetron 8 MG Oral Tablet ondansetron HCl 8 mg tabl et ondansetron HCl 8 mg tablet completed ondansetron 8 M G Oral Tablet [facility] ([facility]) Ondansetron 4 MG Oral Tablet ondansetron HCl 4 mg tabl et ondansetron HCl 4 mg tablet completed ondansetron 4 M G Oral Tablet [facility] ([facility]) Metoclopramide 10 MG Oral Tablet metoclopramide 10 mg tablet metoclopramide 10 mg tablet completed metocloprami de 10 MG Oral Tablet [facility] ([facility]) Ondansetron 8 MG Oral Tablet ondansetron HCl 8 mg tabl et ondansetron HCl 8 mg tablet completed ondansetron 8 M G Oral Tablet [facility] ([facility]) Allopurinol 100 MG Oral Tablet allopurinol 100 mg tabl et allopurinol 100 mg tablet completed allopurinol 100 MG Oral Tablet [facility] ([facility]) zonisamide 50 MG Oral Capsule zonisamide 50 mg capsule as needed zonisamide 50 mg capsule as needed completed z onisamide 50 MG Oral Capsule [facility] ([facility]) Ondansetron 8 MG Oral Tablet ondansetron HCl 8 mg tabl et ondansetron HCl 8 mg tablet completed ondansetron 8 M G Oral Tablet [facility] ([facility]) Divalproex Sodium 500 MG Delayed Release Oral Tablet divalproex 500 mg tablet,delayed release divalproex 500 mg tablet,delayed release completed divalproex sodium 500 MG Delayed Release Oral Tablet [facility] ([facility]) Ondansetron 8 MG Oral Tablet ondansetron HCl 8 mg tabl et ondansetron HCl 8 mg tablet completed ondansetron 8 M G Oral Tablet [facility]OL[facility] ([facility]) Divalproex Sodium 500 MG Delayed Release Oral Tablet divalproex 500 mg tablet,delayed release divalproex 500 mg tablet,delayed release completed divalproex sodium 500 MG Delayed Release Oral Tablet ROL[facility] ([facility]) Metoclopramide 10 MG Oral Tablet metoclopramide 10 mg tablet metoclopramide 10 mg tablet completed metocloprami de 10 MG Oral Tablet [facility] ([facility]) Oseltamivir 75 MG Oral Capsule oseltamivir 75 mg capsu le oseltamivir 75 mg capsule completed oseltamivir 75 MG Oral Capsule ROLANDO ([facility]) Oseltamivir 75 MG Oral Capsule oseltamivir 75 mg capsu le oseltamivir 75 mg capsule completed oseltamivir 75 MG Oral Capsule [facility]OL[facility] ([facility]) Divalproex Sodium 500 MG Delayed Release Oral Tablet divalproex 500 mg tablet,delayed release divalproex 500 mg tablet,delayed release completed divalproex sodium 500 MG Delayed Release Oral Tablet [facility] ([facility]) Flucelvax Quad 3911-7411 60 mcg (15 mcg x 4)/0.5 mL IM suspension [id number] completed influenza A vi jeremías A/[place] (H3N2) antigen 0.03 MG/ML / influenza A virus A//[id number] (H1N1) antigen 0.03 MG/ML / influenza B virus B/ antigen 0.03 MG/ML / influenza B virus B//[id number]/2016 antigen 0.03 MG/ML Injectable Suspension ROL[facility]O ([facility]) topiramate 50 MG Oral Tablet topiramate 50 mg tablet a s needed topiramate 50 mg tablet as needed completed topir amate 50 MG Oral Tablet [facility] ([facility]) Divalproex Sodium 250 MG Delayed Release Oral Tablet divalproex 250 mg tablet,delayed release divalproex 250 mg tablet,delayed release completed divalproex sodium 250 MG Delayed Release Oral Tablet [facility] ([facility]) carvedilol 3.125 MG Oral Tablet carvedilol 3.125 mg ta blet carvedilol 3.125 mg tablet completed carvedilol 3.12 5 MG Oral Tablet [facility] ([facility]) Divalproex Sodium 250 MG Delayed Release Oral Tablet divalproex 250 mg tablet,delayed release divalproex 250 mg tablet,delayed release completed divalproex sodium 250 MG Delayed Release Oral Tablet [facility] ([facility]) Sumatriptan 25 MG Oral Tablet sumatriptan 25 mg tablet sumat riptan 25 mg tablet completed sumatriptan 25 MG Oral Tablet [facility] ([facility]) carvedilol 3.125 MG Oral Tablet carvedilol 3.125 mg ta blet carvedilol 3.125 mg tablet completed carvedilol 3.12 5 MG Oral Tablet [facility] ([facility]) doxycycline hyclate 100 MG Oral Tablet doxycycline hyc late 100 mg tablet doxycycline hyclate 100 mg tablet comp leted doxycycline hyclate 100 MG Oral Tablet [facility] ([facility]) Amoxicillin 875 MG / Clavulanate 125 MG Oral Tablet amoxicillin 875 mg-potassium clavulanate 125 mg tablet amoxicillin 875 mg-potassium clavulanate 125 mg tablet completed amoxicillin 875 MG / clavulanate 125 MG Oral Tablet R[facility] ([facility]) carvedilol 3.125 MG Oral Tablet carvedilol 3.125 mg ta blet carvedilol 3.125 mg tablet completed carvedilol 3.12 5 MG Oral Tablet [facility] ([facility]) Acetaminophen 325 MG / Hydrocodone Juanita trate 7.5 MG Oral Tablet hydrocodone 7.5 mg-acetaminophen 325 mg tablet hydrocodone 7.5 mg-acetaminophen 325 mg tablet completed acetaminophen 325 MG / hydrocodone bitartrate 7.5 MG Oral Tablet R[facility] ([facility]) 24 HR Metformin hydrochloride 500 MG Ext ended Release Oral Tablet metformin ER 500 mg tablet,extended release 24 hr metformin ER 500 mg tablet,extended rele ase 24 hr completed 24 HR m etformin hydrochloride 500 MG Extended Release Oral Tablet R[facility]O ([facility]) doxycycline hyclate 100 MG Oral Tablet doxycycline hyc late 100 mg tablet doxycycline hyclate 100 mg tablet comp leted doxycycline hyclate 100 MG Oral Tablet ROL[facility]O ([facility]) Acetaminophen 325 MG / Hydrocodone Juanita trate 5 MG Oral Tablet hydrocodone 5 mg- acetaminophen 325 mg tablet as needed hydrocodone 5 mg-acetaminophen 325 mg tablet as needed completed acetaminophen 325 MG / hydrocodone bitartrate 5 MG Oral Tablet ROL[facility] ([facility]) Flucelvax Quad [id number] 60 mcg (15 mcg x 4)/0.5 mL IM suspension [id number] completed influenza A vi jeremías A/[place] (H3N2) antigen 0.03 MG/ML / influenza A virus A//[id number]/2015 (H1N1) antigen 0.03 MG/ML / influenza B virus B/[place] antigen 0.03 MG/ML / influenza B virus B/[facility]/[id number]/2016 antigen 0.03 MG/ML Injectable Suspension ROLANDO ([facility]) topiramate 25 MG Oral Tablet topiramate 25 mg tablet TAKE ONE TABLET BY MOUTH TWICE A DAY DIRECTED topiramate 25 mg tablet TAKE ONE TABLET BY MOUTH TWICE A DAY DIRECTED completed topira mate 25 MG Oral Tablet ROL[facility] ([facility]) topiramate 50 MG Oral Tablet topiramate 50 mg tablet a s needed topiramate 50 mg tablet as needed completed topir amate 50 MG Oral Tablet [facility] ([facility]) zonisamide 50 MG Oral Capsule zonisamide 50 mg capsule as needed zonisamide 50 mg capsule as needed completed z onisamide 50 MG Oral Capsule ROL[facility]O ([facility]) Ondansetron 8 MG Oral Tablet ondansetron HCl 8 mg tabl et ondansetron HCl 8 mg tablet completed ondansetron 8 M G Oral Tablet [facility] ([facility]) Simvastatin 20 MG Oral Tablet simvastatin 20 mg tablet one by mouth once daily simvastatin 20 mg tablet one by mouth once daily completed simvastatin 20 MG Oral Tablet ROL[facility]O ([facility]) Simvastatin 20 MG Oral Tablet simvastatin 20 mg tablet one by mouth once daily simvastatin 20 mg tablet one by mouth once daily completed simvastatin 20 MG Oral Tablet ROL[facility] ([facility]) 0.5 ML pneumococcal capsular polysacchar triston [...] Prefilled Syringe [Pneumovax 23] ROLANDO ([facility]) Divalproex Sodium 250 MG Delayed Release Oral Tablet divalproex 250 mg tablet,delayed release divalproex 250 mg tablet,delayed release completed divalproex sodium 250 MG Delayed Release Oral Tablet [facility] ([facility]) Divalproex Sodium 500 MG Delayed Release Oral Tablet divalproex 500 mg tablet,delayed release divalproex 500 mg tablet,delayed release completed divalproex sodium 500 MG Delayed Release Oral Tablet [facility] ([facility]) Simvastatin 20 MG Oral Tablet simvastatin 20 mg tablet one by mouth once daily simvastatin 20 mg tablet one by mouth once daily completed simvastatin 20 MG Oral Tablet [facility] ([facility]) Naproxen 250 MG Oral Tablet naproxen 250 mg tablet as needed naproxen 250 mg tablet as needed completed napro xen 250 MG Oral Tablet [facility] ([facility]) topiramate 50 MG Oral Tablet topiramate 50 mg tablet a s needed topiramate 50 mg tablet as needed completed topir amate 50 MG Oral Tablet [facility] ([facility]) Fluzone Quad (PF) 60 mcg (15 m cg x 4)/0.5 mL IM syringe INJECT INTRAMUSCULARLY IN THE LEFT ARM [id number] compl eted 0.5 ML influenza A virus A/[place] (H1N1) antigen 0.03 MG/ML / influenza A virus A/ (H3N2) antigen 0.03 MG/ML / influenza B virus B/ antigen 0.03 MG/ML / influenza B virus B/[facility] antigen 0.03 MG/ML Prefilled Syringe [Fluzone Quadrivalent ] ROLANDO ([facility]) meloxicam 7.5 MG Oral Tablet meloxicam 7.5 mg tablet meloxicam 7 .5 mg tablet completed meloxicam 7.5 MG Oral Tablet [facility] ([facility]) Acetaminophen 325 MG / Hydrocodone Juanita trate 5 MG Oral Tablet hydrocodone 5 mg- acetaminophen 325 mg tablet as needed hydrocodone 5 mg-acetaminophen 325 mg tablet as needed completed acetaminophen 325 MG / hydrocodone bitartrate 5 MG Oral Tablet R[facility] ([facility]) carvedilol 3.125 MG Oral Tablet carvedilol 3.125 mg ta blet carvedilol 3.125 mg tablet completed carvedilol 3.12 5 MG Oral Tablet [facility] ([facility]) Oseltamivir 75 MG Oral Capsule oseltamivir 75 mg capsu le oseltamivir 75 mg capsule completed oseltamivir 75 MG Oral Capsule ROLANDO ([facility]) Naproxen 250 MG Oral Tablet naproxen 250 mg tablet as needed naproxen 250 mg tablet as needed completed napro xen 250 MG Oral Tablet [facility] ([facility]) meloxicam 7.5 MG Oral Tablet meloxicam 7.5 mg tablet meloxicam 7 .5 mg tablet completed meloxicam 7.5 MG Oral Tablet R[facility] ([facility]) doxycycline hyclate 100 MG Oral Tablet doxycycline hyc late 100 mg tablet doxycycline hyclate 100 mg tablet comp leted doxycycline hyclate 100 MG Oral Tablet ROLANDO ([facility]) Oseltamivir 75 MG Oral Capsule oseltamivir 75 mg capsu le oseltamivir 75 mg capsule completed oseltamivir 75 MG Oral Capsule ROLANDO ([facility]) Amoxicillin 875 MG / Clavulanate 125 MG Oral Tablet amoxicillin 875 mg-potassium clavulanate 125 mg tablet amoxicillin 875 mg-potassium clavulanate 125 mg tablet completed amoxicillin 875 MG / clavulanate 125 MG Oral Tablet ROLANDO ([facility]) Flucelvax Quad 0303-0934 60 mcg (15 mcg x 4)/0.5 mL intramuscular susp INJECT 0.5ML DIRECTED [id number] completed influenza A virus A/ (H3N2) antigen 0.03 MG/ML / influenza A virus A/[facility] (H1N1) antigen 0.03 MG/ML / influenza B virus B/ antigen 0.03 MG/ML / influenza B virus B/[place]/[id number]/2016 antigen 0.03 MG/ML Injectable Suspension [Flucelvax Quadrivalent ] ROLANDO ([facility]) Ondansetron 4 MG Oral Tablet ondansetron HCl 4 mg tabl et ondansetron HCl 4 mg tablet completed ondansetron 4 M G Oral Tablet [facility] ([facility]) Ondansetron 8 MG Oral Tablet ondansetron HCl 8 mg tabl et ondansetron HCl 8 mg tablet completed ondansetron 8 M G Oral Tablet [facility] ([facility]) Allopurinol 100 MG Oral Tablet allopurinol 100 mg tabl et allopurinol 100 mg tablet completed allopurinol 100 MG Oral Tablet ROL[facility]O ([facility]) Acetaminophen 325 MG / Hydrocodone Juanita trate 5 MG Oral Tablet hydrocodone 5 mg- acetaminophen 325 mg tablet as needed hydrocodone 5 mg-acetaminophen 325 mg tablet as needed completed acetaminophen 325 MG / hydrocodone bitartrate 5 MG Oral Tablet ROL[facility] ([facility]) doxycycline hyclate 100 MG Oral Tablet doxycycline hyc late 100 mg tablet doxycycline hyclate 100 mg tablet comp leted doxycycline hyclate 100 MG Oral Tablet R[facility] ([facility]) meloxicam 7.5 MG Oral Tablet meloxicam 7.5 mg tablet meloxicam 7 .5 mg tablet completed meloxicam 7.5 MG Oral Tablet R[facility] ([facility]) 0.5 ML pneumococcal capsular polysacchar triston [...] Prefilled Syringe [Pneumovax 23] ROLANDO ([facility]) Sumatriptan 25 MG Oral Tablet sumatriptan 25 mg tablet sumat riptan 25 mg tablet completed sumatriptan 25 MG Oral Tablet R[facility] ([facility]) doxycycline hyclate 100 MG Oral Tablet doxycycline hyc late 100 mg tablet doxycycline hyclate 100 mg tablet comp leted doxycycline hyclate 100 MG Oral Tablet ROL[facility]O ([facility]) Flucelvax Quad 4046-0490 60 mcg (15 mcg x 4)/0.5 mL IM suspension [id number] completed influenza A vi jeremías A/[place] (H3N2) antigen 0.03 MG/ML / influenza A virus A//[id number]/2015 (H1N1) antigen 0.03 MG/ML / influenza B virus B/ antigen 0.03 MG/ML / influenza B virus B/[place]/[id number]/2016 antigen 0.03 MG/ML Injectable Suspension ROLANDO ([facility]) 24 HR Metformin hydrochloride 500 MG Ext ended Release Oral Tablet metformin ER 500 mg tablet,extended release 24 hr metformin ER 500 mg tablet,extended rele ase 24 hr completed 24 HR m etformin hydrochloride 500 MG Extended Release Oral Tablet ROL[facility]O ([facility]) Acetaminophen 325 MG / Hydrocodone Juanita trate 7.5 MG Oral Tablet hydrocodone 7.5 mg-acetaminophen 325 mg tablet hydrocodone 7.5 mg-acetaminophen 325 mg tablet completed acetaminophen 325 MG / hydrocodone bitartrate 7.5 MG Oral Tablet ROL[facility] ([facility]) meloxicam 7.5 MG Oral Tablet meloxicam 7.5 mg tablet meloxicam 7 .5 mg tablet completed meloxicam 7.5 MG Oral Tablet [facility] ([facility]) Acetaminophen 325 MG / Hydrocodone Juanita trate 5 MG Oral Tablet hydrocodone 5 mg- acetaminophen 325 mg tablet as needed hydrocodone 5 mg-acetaminophen 325 mg tablet as needed completed acetaminophen 325 MG / hydrocodone bitartrate 5 MG Oral Tablet [facility] ([facility]) Metoclopramide 10 MG Oral Tablet metoclopramide 10 mg tablet metoclopramide 10 mg tablet completed metocloprami de 10 MG Oral Tablet R[facility] ([facility]) Naproxen 250 MG Oral Tablet naproxen 250 mg tablet as needed naproxen 250 mg tablet as needed completed napro xen 250 MG Oral Tablet [facility] ([facility]) Naproxen 250 MG Oral Tablet naproxen 250 mg tablet as needed naproxen 250 mg tablet as needed completed napro xen 250 MG Oral Tablet ROL[facility]O ([facility]) meloxicam 7.5 MG Oral Tablet meloxicam 7.5 mg tablet meloxicam 7 .5 mg tablet completed meloxicam 7.5 MG Oral Tablet ROL[facility]O ([facility]) topiramate 25 MG Oral Tablet topiramate 25 mg tablet TAKE ONE TABLET BY MOUTH TWICE A DAY DIRECTED topiramate 25 mg tablet TAKE ONE TABLET BY MOUTH TWICE A DAY DIRECTED completed topira mate 25 MG Oral Tablet ROL[facility] ([facility]) doxycycline hyclate 100 MG Oral Tablet doxycycline hyc late 100 mg tablet doxycycline hyclate 100 mg tablet comp leted doxycycline hyclate 100 MG Oral Tablet ROL[facility]O ([facility]) Metformin hydrochloride 1000 MG Oral Tablet metformin 1,000 mg tablet metformin 1,000 mg tablet completed metformin hydrochloride 1000 MG Oral Tablet ROL[facility]O ([facility]) Simvastatin 20 MG Oral Tablet simvastatin 20 mg tablet one by mouth once daily simvastatin 20 mg tablet one by mouth once daily completed simvastatin 20 MG Oral Tablet [facility] ([facility]) Divalproex Sodium 250 MG Delayed Release Oral Tablet divalproex 250 mg tablet,delayed release divalproex 250 mg tablet,delayed release completed divalproex sodium 250 MG Delayed Release Oral Tablet ROL[facility] ([facility]) Ondansetron 4 MG Disintegrating Oral Tab let ondansetron 4 mg disintegrating tablet ondansetron 4 mg disintegrating tablet completed ondansetron 4 MG Disintegrating Oral Tablet ROLANDO ([facility]) Fluzone Quad [id number] (PF) 60 mcg (15 m cg x 4)/0.5 mL IM syringe INJECT INTRAMUSCULARLY IN THE LEFT ARM [id number] compl eted 0.5 ML influenza A virus A/[place] (H1N1) antigen 0.03 MG/ML / influenza A virus A/[place] (H3N2) antigen 0.03 MG/ML / influenza B virus B/[place] antigen 0.03 MG/ML / influenza B virus B/[facility] antigen 0.03 MG/ML Prefilled Syringe [Fluzone Quadrivalent ] ROLANDO ([facility]) topiramate 25 MG Oral Tablet topiramate 25 mg tablet TAKE ONE TABLET BY MOUTH TWICE A DAY DIRECTED topiramate 25 mg tablet TAKE ONE TABLET BY MOUTH TWICE A DAY DIRECTED completed topira mate 25 MG Oral Tablet ROLAND[facility] ([facility]) Acetaminophen 325 MG / Hydrocodone Juanita trate 7.5 MG Oral Tablet hydrocodone 7.5 mg-acetaminophen 325 mg tablet hydrocodone 7.5 mg-acetaminophen 325 mg tablet completed acetaminophen 325 MG / hydrocodone bitartrate 7.5 MG Oral Tablet ROLANDO ([facility]) zonisamide 50 MG Oral Capsule zonisamide 50 mg capsule as needed zonisamide 50 mg capsule as needed completed z onisamide 50 MG Oral Capsule ROLANDO ([facility]) Simvastatin 20 MG Oral Tablet simvastatin 20 mg tablet one by mouth once daily simvastatin 20 mg tablet one by mouth once daily completed simvastatin 20 MG Oral Tablet ROL[facility] ([facility]) Naproxen 250 MG Oral Tablet naproxen 250 mg tablet as needed naproxen 250 mg tablet as needed completed napro xen 250 MG Oral Tablet ROL[facility] ([facility]) Divalproex Sodium 500 MG Delayed Release Oral Tablet divalproex 500 mg tablet,delayed release divalproex 500 mg tablet,delayed release completed divalproex sodium 500 MG Delayed Release Oral Tablet R[facility] ([facility]) Sumatriptan 25 MG Oral Tablet sumatriptan 25 mg tablet sumat riptan 25 mg tablet completed sumatriptan 25 MG Oral Tablet ROLANDO ([facility]) Flucelvax Quad [id number] 60 mcg (15 mcg x 4)/0.5 mL IM suspension [id number] completed influenza A vi jeremías A/[place] (H3N2) antigen 0.03 MG/ML / influenza A virus A//[id number]/2015 (H1N1) antigen 0.03 MG/ML / influenza B virus B/ antigen 0.03 MG/ML / influenza B virus B/[facility]/[id number]/2016 antigen 0.03 MG/ML Injectable Suspension ROLANDO ([facility]) Divalproex Sodium 250 MG Delayed Release Oral Tablet divalproex 250 mg tablet,delayed release divalproex 250 mg tablet,delayed release completed divalproex sodium 250 MG Delayed Release Oral Tablet ROL[facility] ([facility]) Acetaminophen 325 MG / Hydrocodone Juanita trate 7.5 MG Oral Tablet hydrocodone 7.5 mg-acetaminophen 325 mg tablet hydrocodone 7.5 mg-acetaminophen 325 mg tablet completed acetaminophen 325 MG / hydrocodone bitartrate 7.5 MG Oral Tablet ROLANDO ([facility]) 0.5 ML pneumococcal capsular polysacchar triston [...] Prefilled Syringe [Pneumovax 23] ROLANDO ([facility]) Divalproex Sodium 500 MG Delayed Release Oral Tablet divalproex 500 mg tablet,delayed release divalproex 500 mg tablet,delayed release completed divalproex sodium 500 MG Delayed Release Oral Tablet R[facility] ([facility]) 24 HR Metformin hydrochloride 500 MG Ext ended Release Oral Tablet metformin ER 500 mg tablet,extended release 24 hr metformin ER 500 mg tablet,extended rele ase 24 hr completed 24 HR m etformin hydrochloride 500 MG Extended Release Oral Tablet ROLAND[facility] ([facility]) Ondansetron 8 MG Oral Tablet ondansetron HCl 8 mg tabl et ondansetron HCl 8 mg tablet completed ondansetron 8 M G Oral Tablet ROLAND[facility] ([facility]) Amoxicillin 875 MG / Clavulanate 125 MG Oral Tablet amoxicillin 875 mg-potassium clavulanate 125 mg tablet amoxicillin 875 mg-potassium clavulanate 125 mg tablet completed amoxicillin 875 MG / clavulanate 125 MG Oral Tablet ROLANDO ([facility]) Divalproex Sodium 250 MG Delayed Release Oral Tablet divalproex 250 mg tablet,delayed release divalproex 250 mg tablet,delayed release completed divalproex sodium 250 MG Delayed Release Oral Tablet ROLAND[facility] ([facility]) 0.5 ML pneumococcal capsular polysacchar triston [...] Prefilled Syringe [Pneumovax 23] ROLANDO ([facility]) Flucelvax Quad 60 mcg (15 mcg x 4)/0.5 mL intramuscular susp INJECT 0.5ML DIRECTED [id number] completed influenza A virus A/ (H3N2) antigen 0.03 MG/ML / influenza A virus A/ (H1N1) antigen 0.03 MG/ML / influenza B virus B/ antigen 0.03 MG/ML / influenza B virus B/ antigen 0.03 MG/ML Injectable Suspension [Flucelvax Quadrivalent ] ROLANDO ([facility]) Divalproex Sodium 500 MG Delayed Release Oral Tablet divalproex 500 mg tablet,delayed release divalproex 500 mg tablet,delayed release completed divalproex sodium 500 MG Delayed Release Oral Tablet ROLANDO ([facility]) duloxetine 30 MG Delayed Release Oral Ca psule duloxetine 30 mg capsule,delayed release TAKE ONE CAPSULE BY MOUTH EVERY DAY duloxetine 30 mg capsule,delayed release TAKE ONE CAPSULE BY MOUTH EVERY DAY completed duloxetine 30 MG Delayed Release Oral Capsule ROLANDO ([facility]) doxycycline hyclate 100 MG Oral Tablet doxycycline hyc late 100 mg tablet doxycycline hyclate 100 mg tablet comp leted doxycycline hyclate 100 MG Oral Tablet ROLAND[facility] ([facility]) Acetaminophen 325 MG / Hydrocodone Juanita trate 7.5 MG Oral Tablet hydrocodone 7.5 mg-acetaminophen 325 mg tablet hydrocodone 7.5 mg-acetaminophen 325 mg tablet completed acetaminophen 325 MG / hydrocodone bitartrate 7.5 MG Oral Tablet ROLAND[facility] ([facility]) Sumatriptan 25 MG Oral Tablet sumatriptan 25 mg tablet sumat riptan 25 mg tablet completed sumatriptan 25 MG Oral Tablet ROL[facility] ([facility]) Flucelvax Quad 60 mcg (15 mcg x 4)/0.5 mL intramuscular susp INJECT 0.5ML DIRECTED [id number] completed influenza A virus A/ (H3N2) antigen 0.03 MG/ML / influenza A virus A/ (H1N1) antigen 0.03 MG/ML / influenza B virus B/ antigen 0.03 MG/ML / influenza B virus B/[id number] antigen 0.03 MG/ML Injectable Suspension [Flucelvax Quadrivalent ] ROLANDO ([facility]) Divalproex Sodium 250 MG Delayed Release Oral Tablet divalproex 250 mg tablet,delayed release divalproex 250 mg tablet,delayed release completed divalproex sodium 250 MG Delayed Release Oral Tablet ROLAND[facility] ([facility]) 0.5 ML pneumococcal capsular polysacchar triston [...] Prefilled Syringe [Pneumovax 23] ROLANDO ([facility]) Simvastatin 20 MG Oral Tablet simvastatin 20 mg tablet one by mouth once daily simvastatin 20 mg tablet one by mouth once daily completed simvastatin 20 MG Oral Tablet ROL[facility] ([facility]) Divalproex Sodium 250 MG Delayed Release Oral Tablet divalproex 250 mg tablet,delayed release divalproex 250 mg tablet,delayed release completed divalproex sodium 250 MG Delayed Release Oral Tablet ROL[facility] ([facility]) Metoclopramide 10 MG Oral Tablet metoclopramide 10 mg tablet metoclopramide 10 mg tablet completed metocloprami de 10 MG Oral Tablet ROL[facility] ([facility]) meloxicam 7.5 MG Oral Tablet meloxicam 7.5 mg tablet meloxicam 7 .5 mg tablet completed meloxicam 7.5 MG Oral Tablet [facility] ([facility]) carvedilol 3.125 MG Oral Tablet carvedilol 3.125 mg ta blet carvedilol 3.125 mg tablet completed carvedilol 3.12 5 MG Oral Tablet ROLAND[facility] ([facility]) 0.5 ML pneumococcal capsular polysacchar triston [...] Prefilled Syringe [Pneumovax 23] ROLANDO ([facility]) Simvastatin 20 MG Oral Tablet simvastatin 20 mg tablet one by mouth once daily simvastatin 20 mg tablet one by mouth once daily completed simvastatin 20 MG Oral Tablet ROLANDO ([facility]) Divalproex Sodium 250 MG Delayed Release Oral Tablet divalproex 250 mg tablet,delayed release divalproex 250 mg tablet,delayed release completed divalproex sodium 250 MG Delayed Release Oral Tablet ROLANDO ([facility]) Amoxicillin 875 MG / Clavulanate 125 MG Oral Tablet amoxicillin 875 mg-potassium clavulanate 125 mg tablet amoxicillin 875 mg-potassium clavulanate 125 mg tablet completed amoxicillin 875 MG / clavulanate 125 MG Oral Tablet ROLANDO ([facility]) zonisamide 50 MG Oral Capsule zonisamide 50 mg capsule as needed zonisamide 50 mg capsule as needed completed z onisamide 50 MG Oral Capsule ROLANDO ([facility]) Allopurinol 100 MG Oral Tablet allopurinol 100 mg tabl et allopurinol 100 mg tablet completed allopurinol 100 MG Oral Tablet ROL[facility] ([facility]) carvedilol 3.125 MG Oral Tablet carvedilol 3.125 mg ta blet carvedilol 3.125 mg tablet completed carvedilol 3.12 5 MG Oral Tablet ROLANDO ([facility]) duloxetine 30 MG Delayed Release Oral Ca psule duloxetine 30 mg capsule,delayed release TAKE ONE CAPSULE BY MOUTH EVERY DAY duloxetine 30 mg capsule,delayed release TAKE ONE CAPSULE BY MOUTH EVERY DAY completed duloxetine 30 MG Delayed Release Oral Capsule ROLANDO ([facility]) Ondansetron 8 MG Oral Tablet ondansetron HCl 8 mg tabl et ondansetron HCl 8 mg tablet completed ondansetron 8 M G Oral Tablet [facility]OLAND[facility] ([facility]) Ondansetron 4 MG Disintegrating Oral Tab let ondansetron 4 mg disintegrating tablet ondansetron 4 mg disintegrating tablet completed ondansetron 4 MG Disintegrating Oral Tablet ROLANDO ([facility]) Flucelvax Quad 60 mcg (15 mcg x 4)/0.5 mL IM suspension [id number] completed influenza A vi jeremías A/[place] (H3N2) antigen 0.03 MG/ML / influenza A virus A/[id number]/2015 (H1N1) antigen 0.03 MG/ML / influenza B virus B/ antigen 0.03 MG/ML / influenza B virus B//[id number] antigen 0.03 MG/ML Injectable Suspension ROLANDO ([facility]) carvedilol 3.125 MG Oral Tablet carvedilol 3.125 mg ta blet carvedilol 3.125 mg tablet completed carvedilol 3.12 5 MG Oral Tablet ROLANDO ([facility]) Flucelvax Quad 60 mcg (15 mcg x 4)/0.5 mL intramuscular susp INJECT 0.5ML DIRECTED [id number] completed influenza A virus A/ (H3N2) antigen 0.03 MG/ML / influenza A virus A/[facility] (H1N1) antigen 0.03 MG/ML / influenza B virus B/ antigen 0.03 MG/ML / influenza B virus B//[id number]/2016 antigen 0.03 MG/ML Injectable Suspension [Flucelvax Quadrivalent ] ROLANDO ([facility]) Ondansetron 4 MG Oral Tablet ondansetron HCl 4 mg tabl et ondansetron HCl 4 mg tablet completed ondansetron 4 M G Oral Tablet ROLANDO ([facility]) 0.5 ML pneumococcal capsular polysacchar triston [...] Prefilled Syringe [Pneumovax 23] ROLANDO ([facility]) Divalproex Sodium 250 MG Delayed Release Oral Tablet divalproex 250 mg tablet,delayed release divalproex 250 mg tablet,delayed release completed divalproex sodium 250 MG Delayed Release Oral Tablet ROLANDO ([facility]) Amoxicillin 875 MG / Clavulanate 125 MG Oral Tablet amoxicillin 875 mg-potassium clavulanate 125 mg tablet amoxicillin 875 mg-potassium clavulanate 125 mg tablet completed amoxicillin 875 MG / clavulanate 125 MG Oral Tablet ROLANDO ([facility]) meloxicam 7.5 MG Oral Tablet meloxicam 7.5 mg tablet meloxicam 7 .5 mg tablet completed meloxicam 7.5 MG Oral Tablet ROLANDO ([facility]) Oseltamivir 75 MG Oral Capsule oseltamivir 75 mg capsu le oseltamivir 75 mg capsule completed oseltamivir 75 MG Oral Capsule ROLANDO ([facility]) Oseltamivir 75 MG Oral Capsule oseltamivir 75 mg capsu le oseltamivir 75 mg capsule completed oseltamivir 75 MG Oral Capsule ROLANDO ([facility]) Sumatriptan 25 MG Oral Tablet sumatriptan 25 mg tablet sumat riptan 25 mg tablet completed sumatriptan 25 MG Oral Tablet ROLANDO ([facility]) 0.5 ML pneumococcal capsular polysacchar triston [...] Prefilled Syringe [Pneumovax 23] ROLANDO ([facility]) Amoxicillin 875 MG / Clavulanate 125 MG Oral Tablet amoxicillin 875 mg-potassium clavulanate 125 mg tablet amoxicillin 875 mg-potassium clavulanate 125 mg tablet completed amoxicillin 875 MG / clavulanate 125 MG Oral Tablet ROLANDO ([facility]) Divalproex Sodium 250 MG Delayed Release Oral Tablet divalproex 250 mg tablet,delayed release divalproex 250 mg tablet,delayed release completed divalproex sodium 250 MG Delayed Release Oral Tablet ROLANDO ([facility]) 24 HR Metformin hydrochloride 500 MG Ext ended Release Oral Tablet metformin ER 500 mg tablet,extended release 24 hr metformin ER 500 mg tablet,extended rele ase 24 hr completed 24 HR m etformin hydrochloride 500 MG Extended Release Oral Tablet ROLANDO ([facility]) Ondansetron 8 MG Oral Tablet ondansetron HCl 8 mg tabl et ondansetron HCl 8 mg tablet completed ondansetron 8 M G Oral Tablet ROLANDO ([facility]) Amoxicillin 875 MG / Clavulanate 125 MG Oral Tablet amoxicillin 875 mg-potassium clavulanate 125 mg tablet amoxicillin 875 mg-potassium clavulanate 125 mg tablet completed amoxicillin 875 MG / clavulanate 125 MG Oral Tablet ROLANDO ([facility]) doxycycline hyclate 100 MG Oral Tablet doxycycline hyc late 100 mg tablet doxycycline hyclate 100 mg tablet comp leted doxycycline hyclate 100 MG Oral Tablet ROLANDO ([facility]) topiramate 50 MG Oral Tablet topiramate 50 mg tablet a s needed topiramate 50 mg tablet as needed completed topir amate 50 MG Oral Tablet ROLANDO ([facility]) Ondansetron 4 MG Oral Tablet ondansetron HCl 4 mg tabl et ondansetron HCl 4 mg tablet completed ondansetron 4 M G Oral Tablet ROLANDO ([facility]) 24 HR Metformin hydrochloride 500 MG Ext ended Release Oral Tablet metformin ER 500 mg tablet,extended release 24 hr metformin ER 500 mg tablet,extended rele ase 24 hr completed 24 HR m etformin hydrochloride 500 MG Extended Release Oral Tablet ROLANDO ([facility]) zonisamide 50 MG Oral Capsule zonisamide 50 mg capsule as needed zonisamide 50 mg capsule as needed completed z onisamide 50 MG Oral Capsule ROLANDO ([facility]) Allopurinol 100 MG Oral Tablet allopurinol 100 mg tabl et allopurinol 100 mg tablet completed allopurinol 100 MG Oral Tablet ROLANDO ([facility]) Ondansetron 4 MG Disintegrating Oral Tab let ondansetron 4 mg disintegrating tablet ondansetron 4 mg disintegrating tablet completed ondansetron 4 MG Disintegrating Oral Tablet ROLANDO ([facility]) meloxicam 7.5 MG Oral Tablet meloxicam 7.5 mg tablet meloxicam 7 .5 mg tablet completed meloxicam 7.5 MG Oral Tablet ROLANDO ([facility]) topiramate 50 MG Oral Tablet topiramate 50 mg tablet a s needed topiramate 50 mg tablet as needed completed topir amate 50 MG Oral Tablet ROLANDO ([facility]) Ondansetron 8 MG Disintegrating Oral Tab let ondansetron 8 mg disintegrating tablet ondansetron 8 mg disintegrating tablet completed ondansetron 8 MG Disintegrating Oral Tablet ROLANDO ([facility]) doxycycline hyclate 100 MG Oral Tablet doxycycline hyc late 100 mg tablet doxycycline hyclate 100 mg tablet comp leted doxycycline hyclate 100 MG Oral Tablet ROLANDO ([facility]) Simvastatin 20 MG Oral Tablet simvastatin 20 mg tablet one by mouth once daily simvastatin 20 mg tablet one by mouth once daily completed simvastatin 20 MG Oral Tablet ROLANDO ([facility]) Acetaminophen 325 MG / Hydrocodone Juanita trate 5 MG Oral Tablet hydrocodone 5 mg- acetaminophen 325 mg tablet as needed hydrocodone 5 mg-acetaminophen 325 mg tablet as needed completed acetaminophen 325 MG / hydrocodone bitartrate 5 MG Oral Tablet ROLANDO ([facility]) Flucelvax Quad 60 mcg (15 mcg x 4)/0.5 mL intramuscular susp INJECT 0.5ML DIRECTED [id number] completed influenza A virus A/ (H3N2) antigen 0.03 MG/ML / influenza A virus A/[place] (H1N1) antigen 0.03 MG/ML / influenza B virus B/ antigen 0.03 MG/ML / influenza B virus B/[facility]/[id number]/2016 antigen 0.03 MG/ML Injectable Suspension [Flucelvax Quadrivalent ] ROLANDO ([facility]) topiramate 50 MG Oral Tablet topiramate 50 mg tablet a s needed topiramate 50 mg tablet as needed completed topir amate 50 MG Oral Tablet ROLANDO ([facility]) Sumatriptan 25 MG Oral Tablet sumatriptan 25 mg tablet sumat riptan 25 mg tablet completed sumatriptan 25 MG Oral Tablet ROLANDO ([facility]) meloxicam 7.5 MG Oral Tablet meloxicam 7.5 mg tablet meloxicam 7 .5 mg tablet completed meloxicam 7.5 MG Oral Tablet ROLANDO ([facility]) Acetaminophen 325 MG / Hydrocodone Juanita trate 5 MG Oral Tablet hydrocodone 5 mg- acetaminophen 325 mg tablet as needed hydrocodone 5 mg-acetaminophen 325 mg tablet as needed completed acetaminophen 325 MG / hydrocodone bitartrate 5 MG Oral Tablet ROLANDO ([facility]) Metformin hydrochloride 1000 MG Oral Tablet metformin 1,000 mg tablet metformin 1,000 mg tablet completed metformin hydrochloride 1000 MG Oral Tablet ROLANDO ([facility]) Ondansetron 4 MG Oral Tablet ondansetron HCl 4 mg tabl et ondansetron HCl 4 mg tablet completed ondansetron 4 M G Oral Tablet ROLANDO ([facility]) carvedilol 3.125 MG Oral Tablet carvedilol 3.125 mg ta blet carvedilol 3.125 mg tablet completed carvedilol 3.12 5 MG Oral Tablet ROLANDO ([facility]) Ondansetron 8 MG Oral Tablet ondansetron HCl 8 mg tabl et ondansetron HCl 8 mg tablet completed ondansetron 8 M G Oral Tablet ROLANDO ([facility]) Acetaminophen 325 MG / Hydrocodone Juanita trate 5 MG Oral Tablet hydrocodone 5 mg- acetaminophen 325 mg tablet as needed hydrocodone 5 mg-acetaminophen 325 mg tablet as needed completed acetaminophen 325 MG / hydrocodone bitartrate 5 MG Oral Tablet ROLANDO ([facility]) Metoclopramide 10 MG Oral Tablet metoclopramide 10 mg tablet metoclopramide 10 mg tablet completed metocloprami de 10 MG Oral Tablet ROLANDO ([facility]) Acetaminophen 325 MG / Hydrocodone Juanita trate 7.5 MG Oral Tablet hydrocodone 7.5 mg-acetaminophen 325 mg tablet hydrocodone 7.5 mg-acetaminophen 325 mg tablet completed acetaminophen 325 MG / hydrocodone bitartrate 7.5 MG Oral Tablet ROLANDO ([facility]) Divalproex Sodium 250 MG Delayed Release Oral Tablet divalproex 250 mg tablet,delayed release divalproex 250 mg tablet,delayed release completed divalproex sodium 250 MG Delayed Release Oral Tablet ROLANDO ([facility]) meloxicam 7.5 MG Oral Tablet meloxicam 7.5 mg tablet meloxicam 7 .5 mg tablet completed meloxicam 7.5 MG Oral Tablet ROLANDO ([facility]) Naproxen 250 MG Oral Tablet naproxen 250 mg tablet as needed naproxen 250 mg tablet as needed completed napro xen 250 MG Oral Tablet ROLANDO ([facility]) meloxicam 7.5 MG Oral Tablet meloxicam 7.5 mg tablet meloxicam 7 .5 mg tablet completed meloxicam 7.5 MG Oral Tablet ROLANDO ([facility]) Metoclopramide 10 MG Oral Tablet metoclopramide 10 mg tablet metoclopramide 10 mg tablet completed metocloprami de 10 MG Oral Tablet ROLANDO ([facility]) Ondansetron 4 MG Oral Tablet ondansetron HCl 4 mg tabl et ondansetron HCl 4 mg tablet completed ondansetron 4 M G Oral Tablet ROLANDO ([facility]) Sumatriptan 25 MG Oral Tablet sumatriptan 25 mg tablet sumat riptan 25 mg tablet completed sumatriptan 25 MG Oral Tablet ROLANDO ([facility]) duloxetine 30 MG Delayed Release Oral Ca psule duloxetine 30 mg capsule,delayed release TAKE ONE CAPSULE BY MOUTH EVERY DAY duloxetine 30 mg capsule,delayed release TAKE ONE CAPSULE BY MOUTH EVERY DAY completed duloxetine 30 MG Delayed Release Oral Capsule ROLANDO ([facility]) Fluzone Quad (PF) 60 mcg (15 m cg x 4)/0.5 mL IM syringe INJECT INTRAMUSCULARLY IN THE LEFT ARM [id number] compl eted 0.5 ML influenza A virus A/[place] (H1N1) antigen 0.03 MG/ML / influenza A virus A/[place] (H3N2) antigen 0.03 MG/ML / influenza B virus B/ antigen 0.03 MG/ML / influenza B virus B/[facility] antigen 0.03 MG/ML Prefilled Syringe [Fluzone Quadrivalent ] ROLANDO ([facility]) Divalproex Sodium 250 MG Delayed Release Oral Tablet divalproex 250 mg tablet,delayed release divalproex 250 mg tablet,delayed release completed divalproex sodium 250 MG Delayed Release Oral Tablet ROLANDO ([facility]) Ondansetron 8 MG Oral Tablet ondansetron HCl 8 mg tabl et ondansetron HCl 8 mg tablet completed ondansetron 8 M G Oral Tablet ROLANDO ([facility]) Divalproex Sodium 250 MG Delayed Release Oral Tablet divalproex 250 mg tablet,delayed release divalproex 250 mg tablet,delayed release completed divalproex sodium 250 MG Delayed Release Oral Tablet ROLANDO ([facility]) meloxicam 7.5 MG Oral Tablet meloxicam 7.5 mg tablet meloxicam 7 .5 mg tablet completed meloxicam 7.5 MG Oral Tablet ROLANDO ([facility]) topiramate 50 MG Oral Tablet topiramate 50 mg tablet a s needed topiramate 50 mg tablet as needed completed topir amate 50 MG Oral Tablet ROLANDO ([facility]) 0.5 ML pneumococcal capsular polysacchar triston [...] Prefilled Syringe [Pneumovax 23] ROLANDO ([facility]) Metoclopramide 10 MG Oral Tablet metoclopramide 10 mg tablet metoclopramide 10 mg tablet completed metocloprami de 10 MG Oral Tablet ROLANDO ([facility]) Acetaminophen 325 MG / Hydrocodone Juanita trate 5 MG Oral Tablet hydrocodone 5 mg- acetaminophen 325 mg tablet as needed hydrocodone 5 mg-acetaminophen 325 mg tablet as needed completed acetaminophen 325 MG / hydrocodone bitartrate 5 MG Oral Tablet ROLANDO ([facility]) Metoclopramide 10 MG Oral Tablet metoclopramide 10 mg tablet metoclopramide 10 mg tablet completed metocloprami de 10 MG Oral Tablet ROLANOD ([facility]) Acetaminophen 325 MG / Hydrocodone Juanita trate 5 MG Oral Tablet hydrocodone 5 mg- acetaminophen 325 mg tablet as needed hydrocodone 5 mg-acetaminophen 325 mg tablet as needed completed acetaminophen 325 MG / hydrocodone bitartrate 5 MG Oral Tablet ROLANDO ([facility]) Acetaminophen 325 MG / Hydrocodone Juanita trate 7.5 MG Oral Tablet hydrocodone 7.5 mg-acetaminophen 325 mg tablet hydrocodone 7.5 mg-acetaminophen 325 mg tablet completed acetaminophen 325 MG / hydrocodone bitartrate 7.5 MG Oral Tablet ROLANDO ([facility]) Ondansetron 4 MG Oral Tablet ondansetron HCl 4 mg tabl et ondansetron HCl 4 mg tablet completed ondansetron 4 M G Oral Tablet ROLANDO ([facility]) Flucelvax Quad [id number] 60 mcg (15 mcg x 4)/0.5 mL IM suspension [id number] completed influenza A vi jeremías A/[place] (H3N2) antigen 0.03 MG/ML / influenza A virus A/SE4677/2015 (H1N1) antigen 0.03 MG/ML / influenza B virus B/[place] antigen 0.03 MG/ML / influenza B virus B/[facility]/[id number]/2016 antigen 0.03 MG/ML Injectable Suspension ROLANDO ([facility]) Divalproex Sodium 500 MG Delayed Release Oral Tablet divalproex 500 mg tablet,delayed release divalproex 500 mg tablet,delayed release completed divalproex sodium 500 MG Delayed Release Oral Tablet ROLANDO ([facility]) 24 HR Metformin hydrochloride 500 MG Ext ended Release Oral Tablet metformin ER 500 mg tablet,extended release 24 hr metformin ER 500 mg tablet,extended rele ase 24 hr completed 24 HR m etformin hydrochloride 500 MG Extended Release Oral Tablet ROLANDO ([facility]) topiramate 50 MG Oral Tablet topiramate 50 mg tablet a s needed topiramate 50 mg tablet as needed completed topir amate 50 MG Oral Tablet ROLANDO ([facility]) carvedilol 3.125 MG Oral Tablet carvedilol 3.125 mg ta blet carvedilol 3.125 mg tablet completed carvedilol 3.12 5 MG Oral Tablet ROLANDO ([facility]) zonisamide 50 MG Oral Capsule zonisamide 50 mg capsule as needed zonisamide 50 mg capsule as needed completed z onisamide 50 MG Oral Capsule ROLANDO ([facility]) doxycycline hyclate 100 MG Oral Tablet doxycycline hyc late 100 mg tablet doxycycline hyclate 100 mg tablet comp leted doxycycline hyclate 100 MG Oral Tablet ROLANDO ([facility]) 0.5 ML pneumococcal capsular polysacchar triston [...] Prefilled Syringe [Pneumovax 23] ROLANDO ([facility]) carvedilol 3.125 MG Oral Tablet carvedilol 3.125 mg ta blet carvedilol 3.125 mg tablet completed carvedilol 3.12 5 MG Oral Tablet ROLANDO ([facility]) carvedilol 3.125 MG Oral Tablet carvedilol 3.125 mg ta blet carvedilol 3.125 mg tablet completed carvedilol 3.12 5 MG Oral Tablet ROLANDO ([facility]) Simvastatin 20 MG Oral Tablet simvastatin 20 mg tablet one by mouth once daily simvastatin 20 mg tablet one by mouth once daily completed simvastatin 20 MG Oral Tablet [place] ([facility]) Amoxicillin 875 MG / Clavulanate 125 MG Oral Tablet amoxicillin 875 mg-potassium clavulanate 125 mg tablet amoxicillin 875 mg-potassium clavulanate 125 mg tablet completed amoxicillin 875 MG / clavulanate 125 MG Oral Tablet ROLANDO ([facility]) Metoclopramide 10 MG Oral Tablet metoclopramide 10 mg tablet metoclopramide 10 mg tablet completed metocloprami de 10 MG Oral Tablet ROLANDO ([facility]) Ondansetron 8 MG Oral Tablet ondansetron HCl 8 mg tabl et ondansetron HCl 8 mg tablet completed ondansetron 8 M G Oral Tablet ROLANDO ([facility]) meloxicam 7.5 MG Oral Tablet meloxicam 7.5 mg tablet meloxicam 7 .5 mg tablet completed meloxicam 7.5 MG Oral Tablet ROLANDO ([facility]) Ondansetron 8 MG Disintegrating Oral Tab let ondansetron 8 mg disintegrating tablet ondansetron 8 mg disintegrating tablet completed ondansetron 8 MG Disintegrating Oral Tablet ROLANDO ([facility]) topiramate 50 MG Oral Tablet topiramate 50 mg tablet a s needed topiramate 50 mg tablet as needed completed topir amate 50 MG Oral Tablet ROLANDO ([facility]) zonisamide 50 MG Oral Capsule zonisamide 50 mg capsule as needed zonisamide 50 mg capsule as needed completed z onisamide 50 MG Oral Capsule ROLANDO ([facility]) Acetaminophen 325 MG / Hydrocodone Juanita trate 5 MG Oral Tablet hydrocodone 5 mg- acetaminophen 325 mg tablet as needed hydrocodone 5 mg-acetaminophen 325 mg tablet as needed completed acetaminophen 325 MG / hydrocodone bitartrate 5 MG Oral Tablet ROLANDO ([facility]) Flucelvax Quad 60 mcg (15 mcg x 4)/0.5 mL intramuscular susp INJECT 0.5ML DIRECTED [id number] completed influenza A virus A/[place] (H3N2) antigen 0.03 MG/ML / influenza A virus A/[place] (H1N1) antigen 0.03 MG/ML / influenza B virus B/[place] antigen 0.03 MG/ML / influenza B virus B/[facility]/[id number] antigen 0.03 MG/ML Injectable Suspension [Flucelvax Quadrivalent ] ROLADNO ([facility]) Ondansetron 8 MG Oral Tablet ondansetron HCl 8 mg tabl et ondansetron HCl 8 mg tablet completed ondansetron 8 M G Oral Tablet ROLANDO ([facility]) Acetaminophen 325 MG / Hydrocodone Juanita trate 7.5 MG Oral Tablet hydrocodone 7.5 mg-acetaminophen 325 mg tablet hydrocodone 7.5 mg-acetaminophen 325 mg tablet completed acetaminophen 325 MG / hydrocodone bitartrate 7.5 MG Oral Tablet ROLANDO ([facility]) Divalproex Sodium 500 MG Delayed Release Oral Tablet divalproex 500 mg tablet,delayed release divalproex 500 mg tablet,delayed release completed divalproex sodium 500 MG Delayed Release Oral Tablet ROLANDO ([facility]) 24 HR Metformin hydrochloride 500 MG Ext ended Release Oral Tablet metformin ER 500 mg tablet,extended release 24 hr metformin ER 500 mg tablet,extended rele ase 24 hr completed 24 HR m etformin hydrochloride 500 MG Extended Release Oral Tablet ROLANDO ([facility]) carvedilol 3.125 MG Oral Tablet carvedilol 3.125 mg ta blet carvedilol 3.125 mg tablet completed carvedilol 3.12 5 MG Oral Tablet [place] ([facility]) Allopurinol 100 MG Oral Tablet allopurinol 100 mg tabl et allopurinol 100 mg tablet completed allopurinol 100 MG Oral Tablet ROLANDO ([facility]) Fluzone Quad (PF) 60 mcg (15 m cg x 4)/0.5 mL IM syringe INJECT INTRAMUSCULARLY IN THE LEFT ARM [id number] compl eted 0.5 ML influenza A virus A/ (H1N1) antigen 0.03 MG/ML / influenza A virus A/ (H3N2) antigen 0.03 MG/ML / influenza B virus B/ antigen 0.03 MG/ML / influenza B virus B/[facility] antigen 0.03 MG/ML Prefilled Syringe [Fluzone Quadrivalent ] ROLANDO ([facility]) 0.5 ML pneumococcal capsular polysacchar triston [...] Prefilled Syringe [Pneumovax 23] ROLANDO ([facility]) Sumatriptan 25 MG Oral Tablet sumatriptan 25 mg tablet sumat riptan 25 mg tablet completed sumatriptan 25 MG Oral Tablet [place] ([facility]) doxycycline hyclate 100 MG Oral Tablet doxycycline hyc late 100 mg tablet doxycycline hyclate 100 mg tablet comp leted doxycycline hyclate 100 MG Oral Tablet ROLANDO ([facility]) zonisamide 50 MG Oral Capsule zonisamide 50 mg capsule as needed zonisamide 50 mg capsule as needed completed z onisamide 50 MG Oral Capsule ROLANDO ([facility]) doxycycline hyclate 100 MG Oral Tablet doxycycline hyc late 100 mg tablet doxycycline hyclate 100 mg tablet comp leted doxycycline hyclate 100 MG Oral Tablet ROLANDO ([facility]) Naproxen 250 MG Oral Tablet naproxen 250 mg tablet as needed naproxen 250 mg tablet as needed completed napro xen 250 MG Oral Tablet ROLANDO ([facility]) Naproxen 250 MG Oral Tablet naproxen 250 mg tablet as needed naproxen 250 mg tablet as needed completed napro xen 250 MG Oral Tablet ROLANDO ([facility]) Allopurinol 100 MG Oral Tablet allopurinol 100 mg tabl et allopurinol 100 mg tablet completed allopurinol 100 MG Oral Tablet ROLANDO ([facility]) Allopurinol 100 MG Oral Tablet allopurinol 100 mg tabl et allopurinol 100 mg tablet completed allopurinol 100 MG Oral Tablet ROLANDO ([facility]) Flucelvax Quad 60 mcg (15 mcg x 4)/0.5 mL intramuscular susp INJECT 0.5ML DIRECTED [id number] completed influenza A virus A/ (H3N2) antigen 0.03 MG/ML / influenza A virus A/[place] (H1N1) antigen 0.03 MG/ML / influenza B virus B/ antigen 0.03 MG/ML / influenza B virus B/[facility]/[id number] antigen 0.03 MG/ML Injectable Suspension [Flucelvax Quadrivalent ] ROLANDO ([facility]) Oseltamivir 75 MG Oral Capsule oseltamivir 75 mg capsu le oseltamivir 75 mg capsule completed oseltamivir 75 MG Oral Capsule ROLANDO ([facility]) Naproxen 250 MG Oral Tablet naproxen 250 mg tablet as needed naproxen 250 mg tablet as needed completed napro xen 250 MG Oral Tablet ROLANDO ([facility]) Sumatriptan 25 MG Oral Tablet sumatriptan 25 mg tablet sumat riptan 25 mg tablet completed sumatriptan 25 MG Oral Tablet R[place] ([facility]) Sumatriptan 25 MG Oral Tablet sumatriptan 25 mg tablet sumat riptan 25 mg tablet completed sumatriptan 25 MG Oral Tablet [place] ([facility]) Ondansetron 8 MG Oral Tablet ondansetron HCl 8 mg tabl et ondansetron HCl 8 mg tablet completed ondansetron 8 M G Oral Tablet ROLANDO ([facility]) zonisamide 50 MG Oral Capsule zonisamide 50 mg capsule as needed zonisamide 50 mg capsule as needed completed z onisamide 50 MG Oral Capsule ROLANDO ([facility]) 24 HR Metformin hydrochloride 500 MG Ext ended Release Oral Tablet metformin ER 500 mg tablet,extended release 24 hr metformin ER 500 mg tablet,extended rele ase 24 hr completed 24 HR m etformin hydrochloride 500 MG Extended Release Oral Tablet ROLANDO ([facility]) Ondansetron 4 MG Oral Tablet ondansetron HCl 4 mg tabl et ondansetron HCl 4 mg tablet completed ondansetron 4 M G Oral Tablet ROLANDO ([facility]) Oseltamivir 75 MG Oral Capsule oseltamivir 75 mg capsu le oseltamivir 75 mg capsule completed oseltamivir 75 MG Oral Capsule ROLANDO ([facility]) 24 HR Metformin hydrochloride 500 MG Ext ended Release Oral Tablet metformin ER 500 mg tablet,extended release 24 hr metformin ER 500 mg tablet,extended rele ase 24 hr completed 24 HR m etformin hydrochloride 500 MG Extended Release Oral Tablet ROLANDO ([facility]) Oseltamivir 75 MG Oral Capsule oseltamivir 75 mg capsu le oseltamivir 75 mg capsule completed oseltamivir 75 MG Oral Capsule ROLANDO ([facility]) Amoxicillin 875 MG / Clavulanate 125 MG Oral Tablet amoxicillin 875 mg-potassium clavulanate 125 mg tablet amoxicillin 875 mg-potassium clavulanate 125 mg tablet completed amoxicillin 875 MG / clavulanate 125 MG Oral Tablet ROLANDO ([facility]) topiramate 25 MG Oral Tablet topiramate 25 mg tablet TAKE ONE TABLET BY MOUTH TWICE A DAY DIRECTED topiramate 25 mg tablet TAKE ONE TABLET BY MOUTH TWICE A DAY DIRECTED completed topira mate 25 MG Oral Tablet ROLANDO ([facility]) Divalproex Sodium 250 MG Delayed Release Oral Tablet divalproex 250 mg tablet,delayed release divalproex 250 mg tablet,delayed release completed divalproex sodium 250 MG Delayed Release Oral Tablet [place] ([facility]) meloxicam 7.5 MG Oral Tablet meloxicam 7.5 mg tablet meloxicam 7 .5 mg tablet completed meloxicam 7.5 MG Oral Tablet [place] ([facility]) meloxicam 7.5 MG Oral Tablet meloxicam 7.5 mg tablet meloxicam 7 .5 mg tablet completed meloxicam 7.5 MG Oral Tablet [place] ([facility]) Naproxen 250 MG Oral Tablet naproxen 250 mg tablet as needed naproxen 250 mg tablet as needed completed napro xen 250 MG Oral Tablet ROL[place] ([facility]) Acetaminophen 325 MG / Hydrocodone Juanita trate 7.5 MG Oral Tablet hydrocodone 7.5 mg-acetaminophen 325 mg tablet hydrocodone 7.5 mg-acetaminophen 325 mg tablet completed acetaminophen 325 MG / hydrocodone bitartrate 7.5 MG Oral Tablet ROLANDO ([facility]) Sumatriptan 25 MG Oral Tablet sumatriptan 25 mg tablet sumat riptan 25 mg tablet completed sumatriptan 25 MG Oral Tablet [place] ([facility]) Ondansetron 4 MG Oral Tablet ondansetron HCl 4 mg tabl et ondansetron HCl 4 mg tablet completed ondansetron 4 M G Oral Tablet ROLANDO ([facility]) doxycycline hyclate 100 MG Oral Tablet doxycycline hyc late 100 mg tablet doxycycline hyclate 100 mg tablet comp leted doxycycline hyclate 100 MG Oral Tablet ROL[place]O ([facility]) Divalproex Sodium 500 MG Delayed Release Oral Tablet divalproex 500 mg tablet,delayed release divalproex 500 mg tablet,delayed release completed divalproex sodium 500 MG Delayed Release Oral Tablet R[place] ([facility]) Fluzone Quad [id number] (PF) 60 mcg (15 m cg x 4)/0.5 mL IM syringe INJECT INTRAMUSCULARLY IN THE LEFT ARM [id number] compl eted 0.5 ML influenza A virus A/[place] (H1N1) antigen 0.03 MG/ML / influenza A virus A/ (H3N2) antigen 0.03 MG/ML / influenza B virus B/[place] antigen 0.03 MG/ML / influenza B virus B/[facility] antigen 0.03 MG/ML Prefilled Syringe [Fluzone Quadrivalent ] ROLANDO ([facility]) Naproxen 250 MG Oral Tablet naproxen 250 mg tablet as needed naproxen 250 mg tablet as needed completed napro xen 250 MG Oral Tablet ROLANDO ([facility]) duloxetine 30 MG Delayed Release Oral Ca psule duloxetine 30 mg capsule,delayed release TAKE ONE CAPSULE BY MOUTH EVERY DAY duloxetine 30 mg capsule,delayed release TAKE ONE CAPSULE BY MOUTH EVERY DAY completed duloxetine 30 MG Delayed Release Oral Capsule ROLANDO ([facility]) Amoxicillin 875 MG / Clavulanate 125 MG Oral Tablet amoxicillin 875 mg-potassium clavulanate 125 mg tablet amoxicillin 875 mg-potassium clavulanate 125 mg tablet completed amoxicillin 875 MG / clavulanate 125 MG Oral Tablet ROLANDO ([facility]) carvedilol 3.125 MG Oral Tablet carvedilol 3.125 mg ta blet carvedilol 3.125 mg tablet completed carvedilol 3.12 5 MG Oral Tablet ROLANDO ([facility]) Sumatriptan 25 MG Oral Tablet sumatriptan 25 mg tablet sumat riptan 25 mg tablet completed sumatriptan 25 MG Oral Tablet ROL[place]O ([facility]) meloxicam 7.5 MG Oral Tablet meloxicam 7.5 mg tablet meloxicam 7 .5 mg tablet completed meloxicam 7.5 MG Oral Tablet ROL[place]O ([facility]) Divalproex Sodium 500 MG Delayed Release Oral Tablet divalproex 500 mg tablet,delayed release divalproex 500 mg tablet,delayed release completed divalproex sodium 500 MG Delayed Release Oral Tablet ROLANDO ([facility]) Naproxen 250 MG Oral Tablet naproxen 250 mg tablet as needed naproxen 250 mg tablet as needed completed napro xen 250 MG Oral Tablet ROLANDO ([facility]) Acetaminophen 325 MG / Hydrocodone Juanita trate 7.5 MG Oral Tablet hydrocodone 7.5 mg-acetaminophen 325 mg tablet hydrocodone 7.5 mg-acetaminophen 325 mg tablet completed acetaminophen 325 MG / hydrocodone bitartrate 7.5 MG Oral Tablet ROLANDO ([facility]) Sumatriptan 25 MG Oral Tablet sumatriptan 25 mg tablet sumat riptan 25 mg tablet completed sumatriptan 25 MG Oral Tablet ROL[place]O ([facility]) icosapent ethyl 1000 MG Oral Capsule [Vascepa] Vascepa 1 gram capsule Vascepa 1 gram capsule completed i cosapent ethyl 1000 MG Oral Capsule [Vascepa] ROLANDO ([facility]) Oseltamivir 75 MG Oral Capsule oseltamivir 75 mg capsu le oseltamivir 75 mg capsule completed oseltamivir 75 MG Oral Capsule ROLANDO ([facility]) Sumatriptan 25 MG Oral Tablet sumatriptan 25 mg tablet sumat riptan 25 mg tablet completed sumatriptan 25 MG Oral Tablet ROLANDO ([facility]) 0.5 ML pneumococcal capsular polysacchar triston [...] Prefilled Syringe [Pneumovax 23] ROLANDO ([facility]) Acetaminophen 325 MG / Hydrocodone Juanita trate 7.5 MG Oral Tablet hydrocodone 7.5 mg-acetaminophen 325 mg tablet hydrocodone 7.5 mg-acetaminophen 325 mg tablet completed acetaminophen 325 MG / hydrocodone bitartrate 7.5 MG Oral Tablet ROLANDO ([facility]) Flucelvax Quad [id number] 60 mcg (15 mcg x 4)/0.5 mL IM suspension 596 972 completed influenza A vi jeremías A/[place] (H3N2) antigen 0.03 MG/ML / influenza A virus A//KE8859 (H1N1) antigen 0.03 MG/ML / influenza B virus B/ antigen 0.03 MG/ML / influenza B virus B/[place]/[id number]/2016 antigen 0.03 MG/ML Injectable Suspension ROLANDO ([facility]) Ondansetron 4 MG Disintegrating Oral Tab let ondansetron [address] ONE TABLET BY MOUTH THREE TIMES A DAY FOR 7 DAYS ondansetron [address] ONE TABLET BY MOUTH THREE TIMES A DAY FOR 7 DAYS completed ondansetron 4 MG Disintegrating Oral Tablet ROLANDO ([facility]) Amoxicillin 875 MG / Clavulanate 125 MG Oral Tablet amoxicillin 875 mg-potassium clavulanate 125 mg tablet amoxicillin 875 mg-potassium clavulanate 125 mg tablet completed amoxicillin 875 MG / clavulanate 125 MG Oral Tablet ROLANDO ([facility]) Divalproex Sodium 500 MG Delayed Release Oral Tablet divalproex 500 mg tablet,delayed release divalproex 500 mg tablet,delayed release completed divalproex sodium 500 MG Delayed Release Oral Tablet ROL[place]O ([facility]) Simvastatin 20 MG Oral Tablet simvastatin 20 mg tablet one by mouth once daily simvastatin 20 mg tablet one by mouth once daily completed simvastatin 20 MG Oral Tablet ROLANDO ([facility]) Amoxicillin 875 MG / Clavulanate 125 MG Oral Tablet amoxicillin 875 mg-potassium clavulanate 125 mg tablet amoxicillin 875 mg-potassium clavulanate 125 mg tablet completed amoxicillin 875 MG / clavulanate 125 MG Oral Tablet ROLANDO ([facility]) Simvastatin 20 MG Oral Tablet simvastatin 20 mg tablet one by mouth once daily simvastatin 20 mg tablet one by mouth once daily completed simvastatin 20 MG Oral Tablet ROLANDO ([facility]) Acetaminophen 325 MG / Hydrocodone Juanita trate 5 MG Oral Tablet hydrocodone 5 mg- acetaminophen 325 mg tablet as needed hydrocodone 5 mg-acetaminophen 325 mg tablet as needed completed acetaminophen 325 MG / hydrocodone bitartrate 5 MG Oral Tablet ROLANDO ([facility]) Acetaminophen 325 MG / Hydrocodone Juanita trate 5 MG Oral Tablet hydrocodone 5 mg- acetaminophen 325 mg tablet as needed hydrocodone 5 mg-acetaminophen 325 mg tablet as needed completed acetaminophen 325 MG / hydrocodone bitartrate 5 MG Oral Tablet ROLANDO ([facility]) Insurance Providers Payer name Policy type / Coverage type Policy ID Covered republican ID Covered republican's relationship to lyles Policy Lyles Plan Information [facility] [id number] SP [id number] [facility] [id number] SP [id number] [facility] R[facility] DIV [id number] SP [id number] [facility] [id number] SP [id number] [facility] [id number] SP [id number] [facility] EMPIRE RICK DIV [id number] SP [id number] [facility] INSURANCE [facility] [id number] SP [id number] BCBS EMPIRAvi RICK DIV [id number] SP [id number] [employer] [id number] SP [id number] STATE INSURANCE FUND [id number] SP [id number] STATE INSURANCE FUND [id number] SP [id number] [employer] [id number] SP [id number] BC BLUE CARD 1 [id number] BCBS EMPIRE RICK DIV [id number] SP [id number] [employer] [id number] SP [id number] EMPIRE PLAN CLAIMS 1 [id number] 1 [id number] Workers 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 WorkComp Health Claim [id number] Emplo barrientos [id number] Work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 [place] Work[employer] Health Claim [id number] Employee [id number] Needs Workers Comp Information WorkComp Health Claim [id number] Employee [id number] Workers 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 WorkComp Health Claim [id number] Emplo barrientos [id number] [facility] Commercial [id number] Self [id number] [facility] Commercial [id number] 2..[id number] .[id number] [facility] Health Maintenance Organization (HMO) [id number] Self [id number] [facility] [employer] [id number] 2.840.1.674307.3.227 .99.1037.14493.0 Self [id number] [facility] Commercial [id number] 2..1.412856.3.227 .99.1037.54217.0 Self [id number] [facility] Commercial [id number] 2.84.1.441036.3.227 .99.1037.99672.0 Self [id number] [facility] Commercial [id number] 2.16.840.1.776972.3.227 .99.1037.33671.0 Self [id number] [facility] Maintenance [facility] (O) [id number] Self [id number] [facility] Commercial [id number] 2.16.840.1.165118.3.227 .99.1037.93711.0 Self [id number] [facility] Commercial [id number] 2.16840.1.679922.3.227 .99.1037.34931.0 Self [id number] [facility] Commercial [id number] 2.16840.1.146617.3.227 .99.1037.30803.0 Self [id number] [facility] [place] Commercial [id number] 2.16840.1.492057.3.227.99.1767.1467.0 Self [id number] [facility] [place] Commercial [id number] 2.16840.1.782472.3.227.99.1767.1467.0 Self [id number] [facility] (O) 8 [id number] 2.168[id number] Self [id number] [facility] [employer] [id number] 2.16840.1.177933.3.227 .99.1037.22690.0 Self [id number] [facility] [place] Commercial [id number] 2.16840.1.493182.3.227.99.1767.1467.0 Self [id number] [facility] [place] Commercial [id number] 2.16840.1.649342.3.227.99.1767.1467.0 Self [id number] [facility] [place] Commercial [id number] 2.16840.1.653627.3.227.99.1767.1467.0 Self [id number] [facility] Commercial [id number] 2.16840.1.798979.3.227.99.1767.1467.0 Self [id number] [facility] [place] Commercial [id number] 2.16840.1.059332.3.227.99.1767.1467.0 Self [id number] [facility] [place] Commercial [id number] 2.16840.1.687493.3.227.99.1767.1467.0 Self [id number] [place] [facility] Health Maintenance Organization (HMO) 8 [id number] 2.16840.1.604271.3.227.99.991.206510.0 Self [id number] [facility] [employer] [id number] 2.16840.1.699439.3.227 .99.1037.98677.0 Self [id number] [facility] [place] Commercial [id number] 2.16840.1.037993.3.227.99.1767.1467.0 Self [id number] [facility] O [id number] S [id number] [facility] O [id number] S [id number] [facility] Health Maintenance Organization (HMO) 8 [id number] 2.16840.1.915721.3.227.99.991.441839.0 Self [id number] [facility] [place] Commercial [id number] 2.16840.1.058648.3.227.99.1767.1467.0 Self [id number] [facility] Commercial [id number] 2.16840.1.464210.3.227 .99.1037.68874.0 Self [id number] [facility] [place] Commercial [id number] 2.16840.1.425581.3.227.99.1767.1467.0 Self [id number] [facility] [place] Commercial [id number] 2.16840.1.310493.3.227.99.1767.1467.0 Self [id number] [facility] [place] Commercial [id number] 2.16840.1.317564.3.227.99.1767.1467.0 Self [id number] [place] [facility] Health Maintenance Organization (HMO) 8 [id number] 2.16.840.1.155715.3.227.99.991.634401.0 Self [id number] [facility] [place] Commercial [id number] Self [id number] [facility] [place] Commercial [id number] Self [id number] [facility] [place] Commercial [id number] Self [id number] [place] [facility] Health Maintenance Organization (HMO) [id number] Self [id number] [facility] Commercial [id number] Self [id number] [place] [facility] Health Maintenance Organization (HMO) [id number] Self [facility] [place] Commercial [id number] Self [facility] Commercial [id number] Self [place] ([place], [place]) Medicare Primary [id number] Self [place] [facility] [address] Self SELF PAY 2 UNAVAILABLE 1 UNAVAILA BLE [id number] STATE INSURANCE FUND [id number] S [id number] [facility] INSURANCE FUND [id number] S [id number] STATE INSURANCE FUND [id number] SP [id number] STATE INSURANCE FUND [id number] SP [id number] STATE INSURANCE FUND [id number] SP [id number] STATE INSURANCE FUND [id number] SP [id number] STATE INSURANCE FUND [id number] SP [id number] [facility] O [id number] S [id number] [facility] O [id number] S [id number] [facility] [place] Commercial [id number] Self [id number] [facility] Commercial [id number] Self [id number] [facility] Commercial [id number] Self [id number] [facility] [id number] SP [id number] [facility] Commercial [id number] Self [id number] [facility] Commercial [id number] Self [id number] [facility] Commercial [id number] Self [id number] [facility] Health Maintenance Organization (HMO) [id number] Self [id number] [place] Plan F [id number] SELF [id number] [facility] Maintenance [facility] 8 [id number] Self [id number] Problems, Conditions, and Diagnoses Code Display Name Description Problem Type Effective Dates Data Source(s) G43.709 [id number] Chronic migraine without aura or status m igrainosus Problem 01/08/2021 12:00:00 AM EDT eCW1 ([facility]) Surgeries/Procedures Procedure Description Date Indications Data Source(s) MANUAL THERAPY TQS 1/> REGIONS EACH 15 MINUTES 021 12:00:00 AM EST [facility] ([facility] ) APPLICATION MODALITY 1/> AREAS HOT/COLD PACKS 07/20/20 12:00:00 AM EST [facility] ([facility] ) APPL MODALITY 1/> AREAS ELEC STIMJ EA 15 MIN 1 12:00:00 AM EST [facility] ([facility]) THERAPEUTIC PX 1/> AREAS EACH 15 MIN EXERCISES 12:00:00 AM EST [facility] ([facility]) APPLICATION MODALITY 1/> AREAS HOT/COLD PACKS 07/16/20 21 12:00:00 AM EST [facility] ([facility]) APPL MODALITY 1/> AREAS ELEC STIMJ EA 15 MIN 12:00:00 AM EST [facility] ([facility]) THERAPEUTIC PX 1/> AREAS EACH 15 MIN EXERCISES 12:00:00 AM EST [facility] ([facility] ) MANUAL THERAPY TQS 1/> REGIONS EACH 15 MINUTES 12:00:00 AM EST [facility] ([facility] ) Re-Eval Of PT Established Plan Of Care 20Mins Face To Face P T/Fam 07/10/2021 12:00:00 AM EDT [facility] ([facility]) APPL MODALITY 1/> AREAS ELEC STIMJ EA 15 MIN 12:00:00 AM EDT [facility] ([facility]) APPLICATION MODALITY 1/> AREAS HOT/COLD PACKS 07/10/20 21 12:00:00 AM EDT [facility] ([facility]) MANUAL THERAPY TQS 1/> REGIONS EACH 15 MINUTES 12:00:00 AM EDT [facility] ([facility]) APPLICATION MODALITY 1/> AREAS HOT/COLD PACKS 05/15/20 21 12:00:00 AM EDT [facility] ([facility]) APPL MODALITY 1/> AREAS ELEC STIMJ EA 15 MIN 12:00:00 AM EDT [facility] ([facility]) THERAPEUTIC PX 1/> AREAS EACH 15 MIN EXERCISES 021 12:00:00 AM EDT [facility] ([facility]) MANUAL THERAPY TQS 1/> REGIONS EACH 15 MINUTES 021 12:00:00 AM EDT [facility] ([facility]) THERAPEUTIC PX 1/> AREAS EACH 15 MIN EXERCISES 021 12:00:00 AM EDT [facility] ([facility]) APPL MODALITY 1/> AREAS ELEC STIMJ EA 15 MIN 1 12:00:00 AM EDT [facility] ([facility]) APPLICATION MODALITY 1/> AREAS HOT/COLD PACKS 05/08/20 21 12:00:00 AM EDT [facility] ([facility]) MANUAL THERAPY TQS 1/> REGIONS EACH 15 MINUTES 021 12:00:00 AM EDT [facility] ([facility]) APPLICATION MODALITY 1/> AREAS HOT/COLD PACKS 05/01/20 21 12:00:00 AM EDT [facility] ([facility]) APPL MODALITY 1/> AREAS ELEC STIMJ EA 15 MIN 1 12:00:00 AM EDT [facility] ([facility]) THERAPEUTIC PX 1/> AREAS EACH 15 MIN EXERCISES 021 12:00:00 AM EDT [facility] ([facility]) MANUAL THERAPY TQS 1/> REGIONS EACH 15 MINUTES 021 12:00:00 AM EDT [facility] ([facility]) APPL MODALITY 1/> AREAS ELEC STIMJ EA 15 MIN 1 12:00:00 AM EDT [facility] ([facility]) THERAPEUTIC PX 1/> AREAS EACH 15 MIN EXERCISES 021 12:00:00 AM EDT [facility] ([facility]) MANUAL THERAPY TQS 1/> REGIONS EACH 15 MINUTES 021 12:00:00 AM EDT [facility] ([facility]) APPL MODALITY 1/> AREAS ELEC STIMJ EA 15 MIN 1 12:00:00 AM EDT [facility] ([facility]) THERAPEUTIC PX 1/> AREAS EACH 15 MIN EXERCISES 021 12:00:00 AM EDT [facility] ([facility]) MANUAL THERAPY TQS 1/> REGIONS EACH 15 MINUTES 021 12:00:00 AM EDT [facility] ([facility]) MANUAL THERAPY TQS 1/> REGIONS EACH 15 MINUTES 021 12:00:00 AM EDT [facility] ([facility]) Re-Eval Of PT Established Plan Of Care 20Mins Face To Face P T/Fam 04/10/2021 12:00:00 AM EDT [facility] ([facility]) OFFICE OUTPATIENT VISIT 25 MINUTES 02/20/2021 12:00:00 AM EDT [facility] ([facility] ) APPLICATION MODALITY 1/> AREAS HOT/COLD PACKS 01/17/20 21 12:00:00 AM EDT [facility] ([facility] ) APPL MODALITY 1/> AREAS ELEC STIMJ EA 15 MIN 12:00:00 AM EDT [facility] ([facility] ) THERAPEUTIC PX 1/> AREAS EACH 15 MIN EXERCISES 12:00:00 AM EDT [facility] ([facility] ) MANUAL THERAPY TQS 1/> REGIONS EACH 15 MINUTES 12:00:00 AM EDT [facility] ([facility] ) Re-Eval Of PT Established Plan Of Care 20Mins Face To Face P T/Fam 01/16/2021 12:00:00 AM EDT [facility] ([facility] ) Therapeutic, Prophylactic Or Diagnostic Injection Subq/Im 01/15/2021 12:00:00 AM EDT [facility] ([facility]) APPLICATION MODALITY 1/> AREAS HOT/COLD PACKS 01/10/20 21 12:00:00 AM EDT [facility] ([facility] ) THERAPEUTIC PX 1/> AREAS EACH 15 MIN EXERCISES 12:00:00 AM EDT [facility] ([facility] ) MANUAL THERAPY TQS 1/> REGIONS EACH 15 MINUTES 021 12:00:00 AM EDT [facility] ([facility] ) APPLICATION MODALITY 1/> AREAS HOT/COLD PACKS 01/03/20 21 12:00:00 AM EDT [facility] ([facility] ) MANUAL THERAPY TQS 1/> REGIONS EACH 15 MINUTES 021 12:00:00 AM EDT [facility] ([facility] ) APPLICATION MODALITY 1/> AREAS HOT/COLD PACKS 12/27/19 21 12:00:00 AM EDT [facility] ([facility] ) MANUAL THERAPY TQS 1/> REGIONS EACH 15 MINUTES 021 12:00:00 AM EDT [facility] ([facility] ) Physical Therapy Eval - Mod Complexity 12/19/2020 12:0 0:00 AM EDT [facility] ([facility]) OFFICE OUTPATIENT VISIT 40 MINUTES 12/02/2020 12:00:00 AM EDT [facility] ([facility]) Therapeutic, Prophylactic Or Diagnostic Injection Subq/Im 11/07/2020 12:00:00 AM EST [facility] ([facility]) OFFICE OUTPATIENT VISIT 40 MINUTES 09/10/2020 12:00:00 AM EST [facility] ([facility]) Results ID Date Data Source [id number] 02/11/2021 11:18:00 AM EDT [facility] Name Value Range Interpretation Code Description Data Heena rce(s) Supporting Document(s) SARS-CoV-2 (COVID-19) RNA [Presence] in Respiratory specimen by ALEKSANDR with probe detection Not Detected [facility] This lab was ordered by [facility] and reported by [facility]. ID Date Data Source [id number] 02/11/2021 10:28:00 AM EDT [facility] Name Value Range Interpretation Code Description Data Heena rce(s) Supporting Document(s) SARS COVID ANTIGEN NEGATIVE [facility] This lab was ordered by [facility] nd reported by [facility]. ID Date Data Source [id number] 12/01/2020 12:00:00 AM EDT [facility]ANDO ([facility]) Name Value Range Interpretation Code Description Data Heena rce(s) Supporting Document(s) SARS-CoV-2 (COVID-19) RNA [Presence] in Respiratory specimen by ALEKSANDR with probe detection negative negative Sars-cov-2 [facility]O ([facility]) ID Date Data Source [id number] 12/01/2020 12:00:00 AM EDT [facility] ([facility]) Name Value Range Interpretation Code Description Data Heena rce(s) Supporting Document(s) ID Date Data Source [id number] 12/01/2020 12:00:00 AM EDT [facility]ANDO ([facility]) Name Value Range Interpretation Code Description Data Heena rce(s) Supporting Document(s) SARS-CoV-2 (COVID-19) RNA [Presence] in Respiratory specimen by ALEKSANDR with probe detection negative negative Sars-cov-2 [facility]O ([facility]) ID Date Data Source [id number] 12/01/2020 12:00:00 AM EDT VENICE ([facility]) Name Value Range Interpretation Code Description Data Heena rce(s) Supporting Document(s) ID Date Data Source [id number] 12/01/2020 12:00:00 AM EDT R[facility]ANDO ([facility]) Name Value Range Interpretation Code Description Data Heena rce(s) Supporting Document(s) SARS-CoV-2 (COVID-19) RNA [Presence] in Respiratory specimen by ALEKSANDR with probe detection negative negative Sars-cov-2 R[facility]ANDO ([facility]) ID Date Data Source [id number] 12/01/2020 12:00:00 AM EDT R[facility]ANDO ([facility]) Name Value Range Interpretation Code Description Data Heena rce(s) Supporting Document(s) ID Date Data Source [id number] 12/01/2020 12:00:00 AM EDT R[facility]ANDO ([facility]) Name Value Range Interpretation Code Description Data Heena rce(s) Supporting Document(s) ID Date Data Source [id number] 12/01/2020 12:00:00 AM EDT R[facility]ANDO ([facility]) Name Value Range Interpretation Code Description Data Heena rce(s) Supporting Document(s) SARS-CoV-2 (COVID-19) RNA [Presence] in Respiratory specimen by ALEKSANDR with probe detection negative negative Sars-cov-2 [facility] ([facility]) ID Date Data Source [id number] 12/01/2020 12:00:00 AM EDT [facility]O ([facility]) Name Value Range Interpretation Code Description Data Heena rce(s) Supporting Document(s) ID Date Data Source [id number] 12/01/2020 12:00:00 AM EDT [facility]O ([facility]) Name Value Range Interpretation Code Description Data Heena rce(s) Supporting Document(s) SARS-CoV-2 (COVID-19) RNA [Presence] in Respiratory specimen by ALEKSANDR with probe detection negative negative Sars-cov-2 [facility] ([facility]) ID Date Data Source [id number] 12/01/2020 12:00:00 AM EDT [facility]ANDO ([facility]) Name Value Range Interpretation Code Description Data Heena rce(s) Supporting Document(s) ID Date Data Source [id number] 12/01/2020 12:00:00 AM EDT [facility]ANDO ([facility]) Name Value Range Interpretation Code Description Data Heena rce(s) Supporting Document(s) SARS-CoV-2 (COVID-19) RNA [Presence] in Respiratory specimen by ALEKSANDR with probe detection negative negative Sars-cov-2 [facility] ([facility]) ID Date Data Source [id number] 12/01/2020 12:00:00 AM EDT [facility]ANDO ([facility]) Name Value Range Interpretation Code Description Data Heena rce(s) Supporting Document(s) ID Date Data Source [id number] 12/01/2020 12:00:00 AM EDT [facility] Name Value Range Interpretation Code Description Data Heena rce(s) Supporting Document(s) SARS-CoV-2 NEGATIVE [facility] This lab was ordered by [facility] and reported by [facility]. ID Date Data Source [id number] 12/01/2020 12:00:00 AM EDT ROLANDO ([facility]) Name Value Range Interpretation Code Description Data Heena rce(s) Supporting Document(s) SARS-CoV-2 (COVID-19) RNA [Presence] in Respiratory specimen by ALEKSANDR with probe detection negative negative Sars-cov-2 [facility] ([facility]) ID Date Data Source [id number] 09/10/2020 08:56:00 AM EST MEDENT ([facility]) Name Value Range Interpretation Code Description Data Heena rce(s) Supporting Document(s) Glucose [Mass/volume] in Serum or Plasma 140 MEDENT ([facility]) ID Date Data Source [id number] 09/08/2020 12:00:00 AM EST [facility] ([facility]) Name Value Range Interpretation Code Description Data Heena rce(s) Supporting Document(s) SARS-CoV-2 (COVID-19) RNA [Presence] in Respiratory specimen by ALEKSANDR with probe detection negative negative Sars-cov-2 [facility] ([facility]) ID Date Data Source [id number] 09/08/2020 12:00:00 AM EST [facility] ([facility]) Name Value Range Interpretation Code Description Data Heena rce(s) Supporting Document(s) ID Date Data Source [id number] 09/08/2020 12:00:00 AM EST [facility] ([facility]) Name Value Range Interpretation Code Description Data Heena rce(s) Supporting Document(s) SARS-CoV-2 (COVID-19) RNA [Presence] in Respiratory specimen by ALEKSANDR with probe detection negative negative Sars-cov-2 [facility] ([facility]) ID Date Data Source [id number] 09/08/2020 12:00:00 AM EST [facility] ([facility]) Name Value Range Interpretation Code Description Data Heena rce(s) Supporting Document(s) ID Date Data Source [id number] 09/08/2020 12:00:00 AM EST [facility] ([facility]) Name Value Range Interpretation Code Description Data Heena rce(s) Supporting Document(s) SARS-CoV-2 (COVID-19) RNA [Presence] in Respiratory specimen by ALEKSANDR with probe detection negative negative Sars-cov-2 [facility] ([facility]) ID Date Data Source [id number] 09/08/2020 12:00:00 AM EST [facility] ([facility]) Name Value Range Interpretation Code Description Data Heena rce(s) Supporting Document(s) ID Date Data Source [id number] 09/08/2020 12:00:00 AM EST [facility] ([facility]) Name Value Range Interpretation Code Description Data Heena rce(s) Supporting Document(s) SARS-CoV-2 (COVID-19) RNA [Presence] in Respiratory specimen by ALEKSANDR with probe detection negative negative Sars-cov-2 [facility] ([facility]) ID Date Data Source [id number] 09/08/2020 12:00:00 AM EST [facility] ([facility]) Name Value Range Interpretation Code Description Data Heena rce(s) Supporting Document(s) ID Date Data Source [id number] 09/08/2020 12:00:00 AM EST [facility] ([facility]) Name Value Range Interpretation Code Description Data Heena rce(s) Supporting Document(s) SARS-CoV-2 (COVID-19) RNA [Presence] in Respiratory specimen by ALEKSANDR with probe detection negative negative Sars-cov-2 [facility] ([facility]) ID Date Data Source [id number] 09/08/2020 12:00:00 AM EST [facility] ([facility]) Name Value Range Interpretation Code Description Data Heena rce(s) Supporting Document(s) ID Date Data Source [id number] 09/08/2020 12:00:00 AM EST [facility] ([facility]) Name Value Range Interpretation Code Description Data Heena rce(s) Supporting Document(s) SARS-CoV-2 (COVID-19) RNA [Presence] in Respiratory specimen by ALEKSANDR with probe detection negative negative Sars-cov-2 [facility] ([facility]) ID Date Data Source [id number] 09/08/2020 12:00:00 AM EST [facility] ([facility]) Name Value Range Interpretation Code Description Data Heena rce(s) Supporting Document(s) ID Date Data Source [id number] 09/08/2020 12:00:00 AM EST [facility] ([facility]) Name Value Range Interpretation Code Description Data Heena rce(s) Supporting Document(s) SARS-CoV-2 (COVID-19) RNA [Presence] in Respiratory specimen by ALEKSANDR with probe detection negative negative Sars-cov-2 [facility] ([facility]) ID Date Data Source [id number] 09/08/2020 12:00:00 AM EST [facility] ([facility]) Name Value Range Interpretation Code Description Data Heena rce(s) Supporting Document(s) ID Date Data Source [id number] 09/08/2020 12:00:00 AM EST [facility] Name Value Range Interpretation Code Description Data Heena rce(s) Supporting Document(s) SARS-CoV-2 NEGATIVE [facility] This lab was ordered by [facility] and reported by [facility]. ID Date Data Source [id number] 09/08/2020 12:00:00 AM EST [facility] ([facility]) Name Value Range Interpretation Code Description Data Heena rce(s) Supporting Document(s) SARS-CoV-2 (COVID-19) RNA [Presence] in Respiratory specimen by ALEKSANDR with probe detection negative negative Sars-cov-2 [facility] ([facility]) ID Date Data Source [id number] 09/08/2020 12:00:00 AM EST [facility] ([facility]) Name Value Range Interpretation Code Description Data Heena rce(s) Supporting Document(s) ID Date Data Source [id number] 09/08/2020 12:00:00 AM EST [facility] ([facility]) Name Value Range Interpretation Code Description Data Heena rce(s) Supporting Document(s) SARS-CoV-2 (COVID-19) RNA [Presence] in Respiratory specimen by ALEKSANDR with probe detection negative negative Sars-cov-2 [facility] ([facility]) ID Date Data Source [id number] 09/08/2020 12:00:00 AM EST [facility] ([facility]) Name Value Range Interpretation Code Description Data Heena rce(s) Supporting Document(s) ID Date Data Source [id number] 09/08/2020 12:00:00 AM EST [facility] ([facility]) Name Value Range Interpretation Code Description Data Heena rce(s) Supporting Document(s) SARS-CoV-2 (COVID-19) RNA [Presence] in Respiratory specimen by ALEKSANDR with probe detection negative negative Sars-cov-2 [facility] ([facility]) ID Date Data Source [id number] 09/08/2020 12:00:00 AM EST [facility] ([facility]) Name Value Range Interpretation Code Description Data Heena rce(s) Supporting Document(s) ID Date Data Source [id number] 09/08/2020 12:00:00 AM EST [facility] ([facility]) Name Value Range Interpretation Code Description Data Heena rce(s) Supporting Document(s) SARS-CoV-2 (COVID-19) RNA [Presence] in Respiratory specimen by ALEKSANDR with probe detection negative negative Sars-cov-2 [facility] ([facility]) ID Date Data Source [id number] 09/08/2020 12:00:00 AM EST [facility] ([facility]) Name Value Range Interpretation Code Description Data Heena rce(s) Supporting Document(s) ID Date Data Source [id number] 08/13/2020 12:00:00 AM EST [facility] ([facility]) Name Value Range Interpretation Code Description Data Heena rce(s) Supporting Document(s) SARS-CoV-2 (COVID-19) RNA [Presence] in Respiratory specimen by ALEKSANDR with probe detection negative negative Sars-cov-2 [facility] ([facility]) ID Date Data Source [id number] 08/13/2020 12:00:00 AM EST [facility] ([facility]) Name Value Range Interpretation Code Description Data Heena rce(s) Supporting Document(s) ID Date Data Source [id number] 08/13/2020 12:00:00 AM EST [facility] ([facility]) Name Value Range Interpretation Code Description Data Heena rce(s) Supporting Document(s) SARS-CoV-2 (COVID-19) RNA [Presence] in Respiratory specimen by ALEKSANDR with probe detection negative negative Sars-cov-2 [facility] ([facility]) ID Date Data Source [id number] 08/13/2020 12:00:00 AM EST [facility] ([facility]) Name Value Range Interpretation Code Description Data Heena rce(s) Supporting Document(s) ID Date Data Source [id number] 08/13/2020 12:00:00 AM EST [facility] ([facility]) Name Value Range Interpretation Code Description Data Heena rce(s) Supporting Document(s) SARS-CoV-2 (COVID-19) RNA [Presence] in Respiratory specimen by ALEKSANDR with probe detection negative negative Sars-cov-2 [facility] ([facility]) ID Date Data Source [id number] 08/13/2020 12:00:00 AM EST [facility] ([facility]) Name Value Range Interpretation Code Description Data Heena rce(s) Supporting Document(s) ID Date Data Source [id number] 08/13/2020 12:00:00 AM EST [facility] ([facility]) Name Value Range Interpretation Code Description Data Heena rce(s) Supporting Document(s) SARS-CoV-2 (COVID-19) RNA [Presence] in Respiratory specimen by ALEKSANDR with probe detection negative negative Sars-cov-2 [facility] ([facility]) ID Date Data Source [id number] 08/13/2020 12:00:00 AM EST [facility] ([facility]) Name Value Range Interpretation Code Description Data Heena rce(s) Supporting Document(s) ID Date Data Source [id number] 08/13/2020 12:00:00 AM EST [facility] ([facility]) Name Value Range Interpretation Code Description Data Heena rce(s) Supporting Document(s) SARS-CoV-2 (COVID-19) RNA [Presence] in Respiratory specimen by ALEKSANDR with probe detection negative negative Sars-cov-2 [facility] ([facility]) ID Date Data Source [id number] 08/13/2020 12:00:00 AM EST [facility] ([facility]) Name Value Range Interpretation Code Description Data Heena rce(s) Supporting Document(s) ID Date Data Source [id number] 08/13/2020 12:00:00 AM EST [facility] ([facility]) Name Value Range Interpretation Code Description Data Heena rce(s) Supporting Document(s) SARS-CoV-2 (COVID-19) RNA [Presence] in Respiratory specimen by ALEKSANDR with probe detection negative negative Sars-cov-2 [facility] ([facility]) ID Date Data Source [id number] 08/13/2020 12:00:00 AM EST [facility] ([facility]) Name Value Range Interpretation Code Description Data Heena rce(s) Supporting Document(s) ID Date Data Source [id number] 08/13/2020 12:00:00 AM EST [facility] ([facility]) Name Value Range Interpretation Code Description Data Heena rce(s) Supporting Document(s) SARS-CoV-2 (COVID-19) RNA [Presence] in Respiratory specimen by ALEKSANDR with probe detection negative negative Sars-cov-2 [facility] ([facility]) ID Date Data Source [id number] 08/13/2020 12:00:00 AM EST [facility] ([facility]) Name Value Range Interpretation Code Description Data Heena rce(s) Supporting Document(s) ID Date Data Source [id number] 08/13/2020 12:00:00 AM EST [facility] ([facility]) Name Value Range Interpretation Code Description Data Heena rce(s) Supporting Document(s) SARS-CoV-2 (COVID-19) RNA [Presence] in Respiratory specimen by ALEKSANDR with probe detection negative negative Sars-cov-2 [facility] ([facility]) ID Date Data Source [id number] 08/13/2020 12:00:00 AM EST [facility] ([facility]) Name Value Range Interpretation Code Description Data Heena rce(s) Supporting Document(s) ID Date Data Source [id number] 08/13/2020 12:00:00 AM EST [facility] ([facility]) Name Value Range Interpretation Code Description Data Heena rce(s) Supporting Document(s) SARS-CoV-2 (COVID-19) RNA [Presence] in Respiratory specimen by ALEKSANDR with probe detection negative negative Sars-cov-2 [facility] ([facility]) ID Date Data Source [id number] 08/13/2020 12:00:00 AM EST [facility] ([facility]) Name Value Range Interpretation Code Description Data Heena rce(s) Supporting Document(s) ID Date Data Source [id number] 08/13/2020 12:00:00 AM EST [facility] Name Value Range Interpretation Code Description Data Heena rce(s) Supporting Document(s) [facility]-CoV-2 [facility] This lab was ordered by [facility]-COVID19 and reported by [facility]. ID Date Data Source [id number] 08/13/2020 12:00:00 AM EST [facility] ([facility]) Name Value Range Interpretation Code Description Data Heena rce(s) Supporting Document(s) SARS-CoV-2 (COVID-19) RNA [Presence] in Respiratory specimen by ALEKSANDR with probe detection negative negative Sars-cov-2 [facility] ([facility]) ID Date Data Source [id number] 08/13/2020 12:00:00 AM EST [facility] ([facility]) Name Value Range Interpretation Code Description Data Heena rce(s) Supporting Document(s) ID Date Data Source [id number] 08/13/2020 12:00:00 AM EST [facility] ([facility]) Name Value Range Interpretation Code Description Data Heena rce(s) Supporting Document(s) SARS-CoV-2 (COVID-19) RNA [Presence] in Respiratory specimen by ALEKSANDR with probe detection negative negative Sars-cov-2 [facility] ([facility]) ID Date Data Source [id number] 08/13/2020 12:00:00 AM EST [facility] ([facility]) Name Value Range Interpretation Code Description Data Heena rce(s) Supporting Document(s) ID Date Data Source [id number] 08/13/2020 12:00:00 AM EST [facility] ([facility]) Name Value Range Interpretation Code Description Data Heena rce(s) Supporting Document(s) SARS-CoV-2 (COVID-19) RNA [Presence] in Respiratory specimen by ALEKSANDR with probe detection negative negative Sars-cov-2 [facility] ([facility]) ID Date Data Source [id number] 08/13/2020 12:00:00 AM EST [facility] ([facility]) Name Value Range Interpretation Code Description Data Heena rce(s) Supporting Document(s) ID Date Data Source [id number] 08/13/2020 12:00:00 AM EST [facility] ([facility]) Name Value Range Interpretation Code Description Data Heena rce(s) Supporting Document(s) SARS-CoV-2 (COVID-19) RNA [Presence] in Respiratory specimen by ALEKSANDR with probe detection negative negative Sars-cov-2 [facility] ([facility]) ID Date Data Source [id number] 08/13/2020 12:00:00 AM EST [facility] ([facility]) Name Value Range Interpretation Code Description Data Heena rce(s) Supporting Document(s) ID Date Data Source [id number] 06/16/2020 12:00:00 AM EDT [facility] ([facility]) Name Value Range Interpretation Code Description Data Heena rce(s) Supporting Document(s) SARS-CoV-2 (COVID-19) RNA [Presence] in Respiratory specimen by ALEKSANDR with probe detection negative negative Sars-cov-2 [facility] ([facility]) ID Date Data Source [id number] 06/16/2020 12:00:00 AM EDT [facility] ([facility]) Name Value Range Interpretation Code Description Data Heena rce(s) Supporting Document(s) ID Date Data Source [id number] 06/16/2020 12:00:00 AM EDT [facility] ([facility]) Name Value Range Interpretation Code Description Data Heena rce(s) Supporting Document(s) SARS-CoV-2 (COVID-19) RNA [Presence] in Respiratory specimen by ALEKSANDR with probe detection negative negative Sars-cov-2 [facility] ([facility]) ID Date Data Source [id number] 06/16/2020 12:00:00 AM EDT [facility] ([facility]) Name Value Range Interpretation Code Description Data Heena rce(s) Supporting Document(s) ID Date Data Source [id number] 06/16/2020 12:00:00 AM EDT [facility] ([facility]) Name Value Range Interpretation Code Description Data Heena rce(s) Supporting Document(s) SARS-CoV-2 (COVID-19) RNA [Presence] in Respiratory specimen by ALEKSANDR with probe detection negative negative Sars-cov-2 [facility] ([facility]) ID Date Data Source [id number] 06/16/2020 12:00:00 AM EDT [facility] ([facility]) Name Value Range Interpretation Code Description Data Heena rce(s) Supporting Document(s) ID Date Data Source [id number] 06/16/2020 12:00:00 AM EDT [facility] ([facility]) Name Value Range Interpretation Code Description Data Heena rce(s) Supporting Document(s) SARS-CoV-2 (COVID-19) RNA [Presence] in Respiratory specimen by ALEKSANDR with probe detection negative negative Sars-cov-2 [facility] ([facility]) ID Date Data Source [id number] 06/16/2020 12:00:00 AM EDT [facility] ([facility]) Name Value Range Interpretation Code Description Data Heena rce(s) Supporting Document(s) ID Date Data Source [id number] 06/16/2020 12:00:00 AM EDT [facility] ([facility]) Name Value Range Interpretation Code Description Data Heena rce(s) Supporting Document(s) SARS-CoV-2 (COVID-19) RNA [Presence] in Respiratory specimen by ALEKSANDR with probe detection negative negative Sars-cov-2 [facility] ([facility]) ID Date Data Source [id number] 06/16/2020 12:00:00 AM EDT [facility] ([facility]) Name Value Range Interpretation Code Description Data Heena rce(s) Supporting Document(s) ID Date Data Source [id number] 06/16/2020 12:00:00 AM EDT [facility] ([facility]) Name Value Range Interpretation Code Description Data Heena rce(s) Supporting Document(s) SARS-CoV-2 (COVID-19) RNA [Presence] in Respiratory specimen by ALEKSANDR with probe detection negative negative Sars-cov-2 [facility] ([facility]) ID Date Data Source [id number] 06/16/2020 12:00:00 AM EDT [facility] ([facility]) Name Value Range Interpretation Code Description Data Heena rce(s) Supporting Document(s) ID Date Data Source [id number] 06/16/2020 12:00:00 AM EDT [facility] ([facility]) Name Value Range Interpretation Code Description Data Heena rce(s) Supporting Document(s) SARS-CoV-2 (COVID-19) RNA [Presence] in Respiratory specimen by ALEKSANDR with probe detection negative negative Sars-cov-2 [facility] ([facility]) ID Date Data Source [id number] 06/16/2020 12:00:00 AM EDT [facility] ([facility]) Name Value Range Interpretation Code Description Data Heena rce(s) Supporting Document(s) ID Date Data Source [id number] 06/16/2020 12:00:00 AM EDT [facility] ([facility]) Name Value Range Interpretation Code Description Data Heena rce(s) Supporting Document(s) SARS-CoV-2 (COVID-19) RNA [Presence] in Respiratory specimen by ALEKSANDR with probe detection negative negative Sars-cov-2 [facility] ([facility]) ID Date Data Source [id number] 06/16/2020 12:00:00 AM EDT [facility] ([facility]) Name Value Range Interpretation Code Description Data Heena rce(s) Supporting Document(s) ID Date Data Source [id number] 06/16/2020 12:00:00 AM EDT [facility] ([facility]) Name Value Range Interpretation Code Description Data Heena rce(s) Supporting Document(s) SARS-CoV-2 (COVID-19) RNA [Presence] in Respiratory specimen by ALEKSANDR with probe detection negative negative Sars-cov-2 [facility] ([facility]) ID Date Data Source [id number] 06/16/2020 12:00:00 AM EDT [facility] ([facility]) Name Value Range Interpretation Code Description Data Heena rce(s) Supporting Document(s) ID Date Data Source [id number] 06/16/2020 12:00:00 AM EDT [facility] ([facility]) Name Value Range Interpretation Code Description Data Heena rce(s) Supporting Document(s) SARS-CoV-2 (COVID-19) RNA [Presence] in Respiratory specimen by ALEKSANDR with probe detection negative negative Sars-cov-2 [facility] ([facility]) ID Date Data Source [id number] 06/16/2020 12:00:00 AM EDT [facility] ([facility]) Name Value Range Interpretation Code Description Data Heena rce(s) Supporting Document(s) ID Date Data Source [id number] 06/16/2020 12:00:00 AM EDT [facility] ([facility]) Name Value Range Interpretation Code Description Data Heena rce(s) Supporting Document(s) SARS-CoV-2 (COVID-19) RNA [Presence] in Respiratory specimen by ALEKSANDR with probe detection negative negative Sars-cov-2 [facility] ([facility]) ID Date Data Source [id number] 06/16/2020 12:00:00 AM EDT [facility] ([facility]) Name Value Range Interpretation Code Description Data Heena rce(s) Supporting Document(s) ID Date Data Source [id number] 06/16/2020 12:00:00 AM EDT [facility] ([facility]) Name Value Range Interpretation Code Description Data Heena rce(s) Supporting Document(s) SARS coronavirus 2 RNA [Presence] in Res piratory specimen by ALEKSANDR with probe detection negative negative Sars-cov-2 [facility] ([facility]) ID Date Data Source [id number] 06/16/2020 12:00:00 AM EDT [facility] ([facility]) Name Value Range Interpretation Code Description Data Heena rce(s) Supporting Document(s) ID Date Data Source [id number] 06/16/2020 12:00:00 AM EDT [facility] ([facility]) Name Value Range Interpretation Code Description Data Heena rce(s) Supporting Document(s) SARS coronavirus 2 RNA [Presence] in Res piratory specimen by ALEKSANDR with probe detection negative negative Sars-cov-2 [facility] ([facility]) ID Date Data Source [id number] 06/16/2020 12:00:00 AM EDT [facility] ([facility]) Name Value Range Interpretation Code Description Data Heena rce(s) Supporting Document(s) ID Date Data Source [id number] 06/16/2020 12:00:00 AM EDT [facility] Name Value Range Interpretation Code Description Data Heena rce(s) Supporting Document(s) SARS-CoV-2 [facility] This lab was ordered by [facility]-COVID19 and reported by [facility]. ID Date Data Source [id number] 06/16/2020 12:00:00 AM EDT [facility] ([facility]) Name Value Range Interpretation Code Description Data Heena rce(s) Supporting Document(s) SARS-CoV-2 (COVID-19) RNA [Presence] in Respiratory specimen by ALEKSANDR with probe detection negative negative Sars-cov-2 [facility] ([facility]) ID Date Data Source [id number] 06/16/2020 12:00:00 AM EDT [facility] ([facility]) Name Value Range Interpretation Code Description Data Heena rce(s) Supporting Document(s) ID Date Data Source [id number] 06/16/2020 12:00:00 AM EDT [facility] ([facility]) Name Value Range Interpretation Code Description Data Heena rce(s) Supporting Document(s) SARS-CoV-2 (COVID-19) RNA [Presence] in Respiratory specimen by ALEKSANDR with probe detection negative negative Sars-cov-2 [facility] ([facility]) ID Date Data Source [id number] 06/16/2020 12:00:00 AM EDT [facility] ([facility]) Name Value Range Interpretation Code Description Data Heena rce(s) Supporting Document(s) ID Date Data Source [id number] 06/16/2020 12:00:00 AM EDT [facility] ([facility]) Name Value Range Interpretation Code Description Data Heena rce(s) Supporting Document(s) SARS-CoV-2 (COVID-19) RNA [Presence] in Respiratory specimen by ALEKSANDR with probe detection negative negative Sars-cov-2 [facility] ([facility]) ID Date Data Source [id number] 06/16/2020 12:00:00 AM EDT [facility] ([facility]) Name Value Range Interpretation Code Description Data Heena rce(s) Supporting Document(s) ID Date Data Source [id number] 06/16/2020 12:00:00 AM EDT [facility] ([facility]) Name Value Range Interpretation Code Description Data Heena rce(s) Supporting Document(s) SARS-CoV-2 (COVID-19) RNA [Presence] in Respiratory specimen by ALEKSANDR with probe detection negative negative Sars-cov-2 [facility] ([facility]) ID Date Data Source [id number] 06/16/2020 12:00:00 AM EDT [facility] ([facility]) Name Value Range Interpretation Code Description Data Heena rce(s) Supporting Document(s) ID Date Data Source [id number] 06/02/2020 12:00:00 AM EDT [facility] ([facility]) Name Value Range Interpretation Code Description Data Heena rce(s) Supporting Document(s) ID Date Data Source [id number] 06/02/2020 12:00:00 AM EDT [facility] ([facility]) Name Value Range Interpretation Code Description Data Heena rce(s) Supporting Document(s) ID Date Data Source [id number] 06/02/2020 12:00:00 AM EDT [facility] ([facility]) Name Value Range Interpretation Code Description Data Heena rce(s) Supporting Document(s) ID Date Data Source [id number] 06/02/2020 12:00:00 AM EDT [facility] ([facility]) Name Value Range Interpretation Code Description Data Heena rce(s) Supporting Document(s) ID Date Data Source [id number] 06/02/2020 12:00:00 AM EDT [facility] ([facility]) Name Value Range Interpretation Code Description Data Heena rce(s) Supporting Document(s) ID Date Data Source [id number] 06/02/2020 12:00:00 AM EDT [facility] ([facility]) Name Value Range Interpretation Code Description Data Heena rce(s) Supporting Document(s) ID Date Data Source [id number] 06/02/2020 12:00:00 AM EDT [facility] ([facility]) Name Value Range Interpretation Code Description Data Heena rce(s) Supporting Document(s) ID Date Data Source [id number] 06/02/2020 12:00:00 AM EDT [facility] ([facility]) Name Value Range Interpretation Code Description Data Heena rce(s) Supporting Document(s) ID Date Data Source [id number] 06/02/2020 12:00:00 AM EDT [facility] ([facility]) Name Value Range Interpretation Code Description Data Heena rce(s) Supporting Document(s) ID Date Data Source [id number] 06/02/2020 12:00:00 AM EDT [facility] ([facility]) Name Value Range Interpretation Code Description Data Heena rce(s) Supporting Document(s) ID Date Data Source [id number] 06/02/2020 12:00:00 AM EDT [facility] ([facility]) Name Value Range Interpretation Code Description Data Heena rce(s) Supporting Document(s) ID Date Data Source [id number] 06/02/2020 12:00:00 AM EDT [facility] ([facility]) Name Value Range Interpretation Code Description Data Heena rce(s) Supporting Document(s) ID Date Data Source [id number] 06/02/2020 12:00:00 AM EDT [facility] ([facility]) Name Value Range Interpretation Code Description Data Heena rce(s) Supporting Document(s) ID Date Data Source [id number] 06/02/2020 12:00:00 AM EDT [facility] ([facility]) Name Value Range Interpretation Code Description Data Heena rce(s) Supporting Document(s) ID Date Data Source [id number] 06/02/2020 12:00:00 AM EDT [facility] Name Value Range Interpretation Code Description Data Heena rce(s) Supporting Document(s) SARS-CoV-2 [facility] This lab was ordered by [facility]-COVID19 and reported by [facility]. ID Date Data Source [id number] 06/02/2020 12:00:00 AM EDT [facility] ([facility]) Name Value Range Interpretation Code Description Data Heena rce(s) Supporting Document(s) ID Date Data Source [id number] 06/02/2020 12:00:00 AM EDT [facility] ([facility]) Name Value Range Interpretation Code Description Data Heena rce(s) Supporting Document(s) ID Date Data Source [id number] 06/02/2020 12:00:00 AM EDT [facility] ([facility]) Name Value Range Interpretation Code Description Data Heena rce(s) Supporting Document(s) ID Date Data Source [id number] 06/02/2020 12:00:00 AM EDT [facility] ([facility]) Name Value Range Interpretation Code Description Data Heena rce(s) Supporting Document(s) ID Date Data Source [id number] 06/02/2020 12:00:00 AM EDT [facility] ([facility]) Name Value Range Interpretation Code Description Data Heena rce(s) Supporting Document(s) Procedure Social History Code Duration Value Status Description Data Source(s ) Smoking 01/15/2021 12:00:00 AM EDT Patient has never smoked co mpleted Patient has never smoked MED[facility] ([facility]) Smoking 01/08/2021 12:00:00 AM EDT Never Smoker completed Never S moker eCW1 ([facility]) Smoking 01/08/2021 12:00:00 AM EDT Never Smoker completed Never S moker eCW1 ([facility]) Smoking 01/08/2021 12:00:00 AM EDT Never Smoker completed Never S moker eCW1 ([facility]) Smoking 09/10/2020 12:00:00 AM EST Patient has never smoked co mpleted Patient has never smoked MEDENT ([facility]) Vital Signs ID Date Data Source [id number] Name Value Range Interpretation Code Description Data Source(s) Diastolic blood pressure 74 mm[Hg] 74 mm[Hg] [facility] ([facility]) Body height 71 [in_i] 71 [in_i] [facility] ([facility]) Systolic blood pressure 128 mm[Hg] 128 mm[Hg] A THENA ([facility]) Diastolic blood pressure 74 mm[Hg] 74 mm[Hg] [facility] ([facility]) Body height 71 [in_i] 71 [in_i] [facility] ([facility]) Systolic blood pressure 131 mm[Hg] 131 mm[Hg] A THENA ([facility]) Diastolic blood pressure 74 mm[Hg] 74 mm[Hg] [facility] ([facility]) Body height 71 [in_i] 71 [in_i] [facility] ([facility]) Systolic blood pressure 131 mm[Hg] 131 mm[Hg] A THENA ([facility]) Systolic blood pressure 146 mm[Hg] 146 mm[Hg] M EDENT ([facility]) Diastolic blood pressure 84 mm[Hg] 84 mm[Hg] MEDENT ([facility]) Heart rate 99 /min 99 /min [facility] ([facility] Body temperature 96.4 [degF] 96.4 [degF] MED[facility] ([facility] ) Body height 69.25 [in_i] 69.25 [in_i] MEDENT ([facility] 5'9.25" Body weight 227.50 [lb_av] 227.50 [lb_av] MEDEN T ([facility] ) Body mass index (BMI) [Ratio] 33.4 kg/m2 33.4 k g/m2 MED[facility] ([facility] ) Oxygen saturation in Arterial blood by Pulse oximetry 99 % 99 % [facility] ([facility] ) Body height 71 [in_i] 71 [in_i] [facility] ([facility]) Systolic blood pressure 127 mm[Hg] 127 mm[Hg] A THENA ([facility]) Diastolic blood pressure 74 mm[Hg] 74 mm[Hg] [facility] ([facility]) Diastolic blood pressure 74 mm[Hg] 74 mm[Hg] [facility] ([facility]) Body height 71 [in_i] 71 [in_i] [facility] ([facility]) Systolic blood pressure 127 mm[Hg] 127 mm[Hg] A THENA ([facility]) Diastolic blood pressure 74 mm[Hg] 74 mm[Hg] [facility] ([facility]) Body height 71 [in_i] 71 [in_i] [facility] ([facility]) Systolic blood pressure 127 mm[Hg] 127 mm[Hg] A THENA ([facility]) Systolic blood pressure 150 mm[Hg] 150 mm[Hg] M EDENT ([facility]) Diastolic blood pressure 100 mm[Hg] 100 mm[Hg] MEDENT ([facility]) Heart rate 104 /min 104 /min MED[facility] ([facility]) Respiratory rate 20 /min 20 /min MEDENT ( [facility] ) Diastolic blood pressure 90 mm[Hg] 90 mm[Hg] [facility] ([facility]) Body height 71 [in_i] 71 [in_i] [facility] ([facility]) Systolic blood pressure 158 mm[Hg] 158 mm[Hg] A THENA ([facility]) Diastolic blood pressure 90 mm[Hg] 90 mm[Hg] [facility] ([facility]) Body height 71 [in_i] 71 [in_i] [facility] ([facility]) Systolic blood pressure 158 mm[Hg] 158 mm[Hg] A THENA ([facility]) Diastolic blood pressure 90 mm[Hg] 90 mm[Hg] [facility] ([facility]) Body height 71 [in_i] 71 [in_i] [facility] ([facility]) Systolic blood pressure 158 mm[Hg] 158 mm[Hg] A THENA ([facility]) Diastolic blood pressure 90 mm[Hg] 90 mm[Hg] [facility] [facility] Body height 71 [in_i] 71 [in_i] ROLANDO ([facility]) Systolic blood pressure 158 mm[Hg] 158 mm[Hg] A THENA ([facility]) Diastolic blood pressure 90 mm[Hg] 90 mm[Hg] ROLANDO ([facility]) Body height 71 [in_i] 71 [in_i] ROLANDO ([facility]) Systolic blood pressure 158 mm[Hg] 158 mm[Hg] A THENA ([facility]) Systolic blood pressure 152 mm[Hg] 152 mm[Hg] M EDENT ([facility], [facility]) Diastolic blood pressure 79 mm[Hg] 79 mm[Hg] MEDENT ([facility], [facility]) Heart rate 116 /min 116 /min MEDENT ([facility], [facility]) Respiratory rate 16 /min 16 /min MEDENT ( [facility], [facility]) Oxygen saturation in Arterial blood by Pulse oximetry 95 % 95 % MEDENT ([facility], [facility]) Body temperature 98.9 [degF] 98.9 [degF] MEDENT ([facility], [facility]) Body weight 220.00 [lb_av] 220.00 [lb_av] MEDEN T ([facility], [facility]) Body height 70 [in_i] 70 [in_i] MEDMAG ([facility], [facility]) 5'10" Body mass index (BMI) [Ratio] 31.6 kg/m2 31.6 k g/m2 MEDMAG ([facility], [facility]) Body weight 221.8 [lb_av] 221.8 [lb_av] eCW1 ([facility]) Body height 71 [in_i] 71 [in_i] eCW1 ([facility]) Body mass index (BMI) [Ratio] 30.93 kg/m2 30.93 kg/m2 eCW1 ([facility]) Heart rate 119 /min 119 /min eCW1 ([facility]) Respiratory rate 18 /min 18 /min eCW1 ([facility]) Body temperature 97.2 [degF] 97.2 [degF] eCW1 ( [facility]) Systolic blood pressure 134 mm[Hg] 134 mm[Hg] e CW1 ([facility]) Diastolic blood pressure 76 mm[Hg] 76 mm[Hg] eCW1 ([facility]) Diastolic blood pressure 68 mm[Hg] 68 mm[Hg] ROLANDO ([facility]) Body height 71 [in_i] 71 [in_i] ROLANDO ([facility]) Systolic blood pressure 134 mm[Hg] 134 mm[Hg] A THENA ([facility]) Diastolic blood pressure 68 mm[Hg] 68 mm[Hg] ROLANDO ([facility]) Systolic blood pressure 134 mm[Hg] 134 mm[Hg] A THENA ([facility]) Body height 71 [in_i] 71 [in_i] ROLANDO ([facility]) Diastolic blood pressure 68 mm[Hg] 68 mm[Hg] ROLANDO ([facility]) Body height 71 [in_i] 71 [in_i] ROLANDO ([facility]) Systolic blood pressure 134 mm[Hg] 134 mm[Hg] A THENA ([facility]) Diastolic blood pressure 68 mm[Hg] 68 mm[Hg] ROLANDO ([facility]) Body height 71 [in_i] 71 [in_i] ROLANOD ([facility]) Systolic blood pressure 134 mm[Hg] 134 mm[Hg] A THENA ([facility]) Diastolic blood pressure 68 mm[Hg] 68 mm[Hg] ROLANDO ([facility]) Body height 71 [in_i] 71 [in_i] ROLANDO ([facility]) Systolic blood pressure 134 mm[Hg] 134 mm[Hg] A THENA ([facility]) Diastolic blood pressure 68 mm[Hg] 68 mm[Hg] ROLANDO ([facility]) Body height 71 [in_i] 71 [in_i] ROLANDO ([facility]) Systolic blood pressure 134 mm[Hg] 134 mm[Hg] A THENA ([facility]) Body weight 216.25 [lb_av] 216.25 [lb_av] MEDEN T ([facility]) Body mass index (BMI) [Ratio] 31.7 kg/m2 31.7 k g/m2 MEDENT ([facility]) Oxygen saturation in Arterial blood by Pulse oximetry 97 % 97 % MEDENT ([facility]) Systolic blood pressure 142 mm[Hg] 142 mm[Hg] M EDENT ([facility]) Diastolic blood pressure 80 mm[Hg] 80 mm[Hg] MEDENT ([facility]) Heart rate 95 /min 95 /min MEDENT ([facility]) Body temperature 96.4 [degF] 96.4 [degF] MEDENT ([facility]) Body height 69.25 [in_i] 69.25 [in_i] MEDENT ([facility]) 5'9.25" Diastolic blood pressure 74 mm[Hg] 74 mm[Hg] ROLANDO ([facility]) Body height 71 [in_i] 71 [in_i] ROLANDO ([facility]) Systolic blood pressure 147 mm[Hg] 147 mm[Hg] A THENA ([facility]) Body height 71 [in_i] 71 [in_i] ROLANDO ([facility]) Diastolic blood pressure 74 mm[Hg] 74 mm[Hg] ROLANDO ([facility]) Systolic blood pressure 147 mm[Hg] 147 mm[Hg] A THENA ([facility]) Diastolic blood pressure 74 mm[Hg] 74 mm[Hg] ROLANDO ([facility]) Body height 71 [in_i] 71 [in_i] ROLANDO ([facility]) Systolic blood pressure 147 mm[Hg] 147 mm[Hg] A THENA ([facility]) Diastolic blood pressure 74 mm[Hg] 74 mm[Hg] ROLANDO ([facility]) Body height 71 [in_i] 71 [in_i] ROLANDO ([facility]) Systolic blood pressure 147 mm[Hg] 147 mm[Hg] A THENA ([facility]) Diastolic blood pressure 74 mm[Hg] 74 mm[Hg] ROLANDO ([facility]) Body height 71 [in_i] 71 [in_i] ROLANDO ([facility]) Systolic blood pressure 147 mm[Hg] 147 mm[Hg] A THENA ([facility]) Diastolic blood pressure 74 mm[Hg] 74 mm[Hg] ROLANDO ([facility]) Body height 71 [in_i] 71 [in_i] ROLANDO ([facility]) Systolic blood pressure 147 mm[Hg] 147 mm[Hg] A THENA ([facility]) Diastolic blood pressure 74 mm[Hg] 74 mm[Hg] ROLANDO ([facility]) Body height 71 [in_i] 71 [in_i] ROLANDO ([facility]) Systolic blood pressure 147 mm[Hg] 147 mm[Hg] A THENA ([facility]) Diastolic blood pressure 74 mm[Hg] 74 mm[Hg] ROLANDO ([facility]) Body height 71 [in_i] 71 [in_i] ROLANDO ([facility]) Systolic blood pressure 147 mm[Hg] 147 mm[Hg] A THENA ([facility]) Diastolic blood pressure 74 mm[Hg] 74 mm[Hg] ROLANDO ([facility]) Body height 71 [in_i] 71 [in_i] ROLANDO ([facility]) Systolic blood pressure 147 mm[Hg] 147 mm[Hg] A THENA ([facility]) Diastolic blood pressure 78 mm[Hg] 78 mm[Hg] ROLANDO ([facility]) Body height 71 [in_i] 71 [in_i] ROLANDO ([facility]) Systolic blood pressure 162 mm[Hg] 162 mm[Hg] A THENA ([facility]) Body height 71 [in_i] 71 [in_i] ROLANDO ([facility]) Diastolic blood pressure 78 mm[Hg] 78 mm[Hg] ROLANDO ([facility]) Systolic blood pressure 162 mm[Hg] 162 mm[Hg] A THENA ([facility]) Diastolic blood pressure 78 mm[Hg] 78 mm[Hg] ROLANDO ([facility]) Body height 71 [in_i] 71 [in_i] ROLANDO ([facility]) Systolic blood pressure 162 mm[Hg] 162 mm[Hg] A THENA ([facility]) Diastolic blood pressure 78 mm[Hg] 78 mm[Hg] ROLANDO ([facility]) Body height 71 [in_i] 71 [in_i] ROLANDO ([facility]) Systolic blood pressure 162 mm[Hg] 162 mm[Hg] A THENA ([facility]) Diastolic blood pressure 78 mm[Hg] 78 mm[Hg] ROLANDO ([facility]) Body height 71 [in_i] 71 [in_i] ROLANDO ([facility]) Systolic blood pressure 162 mm[Hg] 162 mm[Hg] A THENA ([facility]) Diastolic blood pressure 78 mm[Hg] 78 mm[Hg] ROLANDO ([facility]) Body height 71 [in_i] 71 [in_i] ROLANDO ([facility]) Systolic blood pressure 162 mm[Hg] 162 mm[Hg] A THENA ([facility]) Diastolic blood pressure 78 mm[Hg] 78 mm[Hg] ROLANDO ([facility]) Body height 71 [in_i] 71 [in_i] ROLANDO ([facility]) Systolic blood pressure 162 mm[Hg] 162 mm[Hg] A THENA ([facility]) Diastolic blood pressure 78 mm[Hg] 78 mm[Hg] ROLANDO ([facility]) Body height 71 [in_i] 71 [in_i] ROLANDO ([facility]) Systolic blood pressure 162 mm[Hg] 162 mm[Hg] A THENA ([facility]) Body height 71 [in_i] 71 [in_i] ROLANDO ([facility]) Systolic blood pressure 162 mm[Hg] 162 mm[Hg] A THENA ([facility]) Diastolic blood pressure 78 mm[Hg] 78 mm[Hg] ROLANDO ([facility]) Diastolic blood pressure 78 mm[Hg] 78 mm[Hg] ROLANDO ([facility]) Body height 71 [in_i] 71 [in_i] ROLANDO ([facility]) Systolic blood pressure 162 mm[Hg] 162 mm[Hg] A THENA ([facility]) Systolic blood pressure 150 mm[Hg] 150 mm[Hg] M EDENT ([facility], [facility]) No b/p meds today Diastolic blood pressure 98 mm[Hg] 98 mm[Hg] MEDENT ([facility], [facility]) No b/p meds today Heart rate 120 /min 120 /min MEDENT ([facility], [facility]) Respiratory rate 18 /min 18 /min MEDENT ( [facility], [facility]) Oxygen saturation in Arterial blood by Pulse oximetry 98 % 98 % MEDENT ([facility], [facility]) Body temperature 97.1 [degF] 97.1 [degF] MEDENT ([facility], [facility]) Body weight 220.00 [lb_av] 220.00 [lb_av] MEDEN T ([facility], [facility]) Body height 71 [in_i] 71 [in_i] MEDENT ([facility], [facility]) 5'11" Body mass index (BMI) [Ratio] 30.7 kg/m2 30.7 k g/m2 MEDENT ([facility], [facility]) Diastolic blood pressure 84 mm[Hg] 84 mm[Hg] ROLANDO ([facility]) Body height 71 [in_i] 71 [in_i] ROLANDO ([facility]) Systolic blood pressure 127 mm[Hg] 127 mm[Hg] A THENA ([facility]) Body height 71 [in_i] 71 [in_i] ROLANDO ([facility]) Diastolic blood pressure 84 mm[Hg] 84 mm[Hg] ROLANDO ([facility]) Systolic blood pressure 127 mm[Hg] 127 mm[Hg] A THENA ([facility]) Diastolic blood pressure 84 mm[Hg] 84 mm[Hg] ROLANDO ([facility]) Body height 71 [in_i] 71 [in_i] ROLANDO ([facility]) Systolic blood pressure 127 mm[Hg] 127 mm[Hg] A THENA ([facility]) Diastolic blood pressure 84 mm[Hg] 84 mm[Hg] ROLANDO ([facility]) Body height 71 [in_i] 71 [in_i] ROLANDO ([facility]) Systolic blood pressure 127 mm[Hg] 127 mm[Hg] A THENA ([facility]) Diastolic blood pressure 84 mm[Hg] 84 mm[Hg] ROLANDO ([facility]) Body height 71 [in_i] 71 [in_i] ROLANDO ([facility]) Systolic blood pressure 127 mm[Hg] 127 mm[Hg] A THENA ([facility]) Diastolic blood pressure 84 mm[Hg] 84 mm[Hg] ROLANDO ([facility]) Body height 71 [in_i] 71 [in_i] ROLANDO ([facility]) Systolic blood pressure 127 mm[Hg] 127 mm[Hg] A THENA ([facility]) Diastolic blood pressure 84 mm[Hg] 84 mm[Hg] ROLANDO ([facility]) Body height 71 [in_i] 71 [in_i] ROLANDO ([facility]) Systolic blood pressure 127 mm[Hg] 127 mm[Hg] A THENA ([facility]) Diastolic blood pressure 84 mm[Hg] 84 mm[Hg] ROLANDO ([facility]) Body height 71 [in_i] 71 [in_i] ROLANDO ([facility]) Systolic blood pressure 127 mm[Hg] 127 mm[Hg] A THENA ([facility]) Diastolic blood pressure 84 mm[Hg] 84 mm[Hg] ROLANDO ([facility]) Body height 71 [in_i] 71 [in_i] ROLANDO ([facility]) Systolic blood pressure 127 mm[Hg] 127 mm[Hg] A THENA ([facility]) Diastolic blood pressure 84 mm[Hg] 84 mm[Hg] ROLANDO ([facility]) Systolic blood pressure 127 mm[Hg] 127 mm[Hg] A THENA ([facility]) Body height 71 [in_i] 71 [in_i] ROLANDO ([facility]) Diastolic blood pressure 84 mm[Hg] 84 mm[Hg] ROLANDO ([facility]) Body height 71 [in_i] 71 [in_i] ROLANDO ([facility]) Systolic blood pressure 127 mm[Hg] 127 mm[Hg] A THENA ([facility]) Systolic blood pressure 126 mm[Hg] 126 mm[Hg] M EDENT ([facility]) Diastolic blood pressure 84 mm[Hg] 84 mm[Hg] MEDENT ([facility]) Heart rate 89 /min 89 /min MEDENT ([facility]) Body temperature 97.2 [degF] 97.2 [degF] MEDENT ([facility]) Body height 69.25 [in_i] 69.25 [in_i] MEDENT ([facility]) 5'9.25" Body weight 217.50 [lb_av] 217.50 [lb_av] MEDEN T ([facility]) Body mass index (BMI) [Ratio] 31.9 kg/m2 31.9 k g/m2 MEDENT ([facility] ) Oxygen saturation in Arterial blood by Pulse oximetry 98 % 98 % MEDENT ([facility]) Systolic blood pressure 128 mm[Hg] 128 mm[Hg] A THENA ([facility]) Diastolic blood pressure 83 mm[Hg] 83 mm[Hg] ROLANDO ([facility]) Diastolic blood pressure 83 mm[Hg] 83 mm[Hg] ROLANDO ([facility]) Body height 71 [in_i] 71 [in_i] ROLANDO ([facility]) Body height 71 [in_i] 71 [in_i] ROLANDO ([facility]) Systolic blood pressure 128 mm[Hg] 128 mm[Hg] A THENA ([facility]) Diastolic blood pressure 83 mm[Hg] 83 mm[Hg] ROLANDO ([facility]) Body height 71 [in_i] 71 [in_i] ROLANDO ([facility]) Systolic blood pressure 128 mm[Hg] 128 mm[Hg] A THENA ([facility]) Diastolic blood pressure 83 mm[Hg] 83 mm[Hg] ROLANDO ([facility]) Body height 71 [in_i] 71 [in_i] ROLANDO ([facility]) Systolic blood pressure 128 mm[Hg] 128 mm[Hg] A THENA ([facility]) Diastolic blood pressure 83 mm[Hg] 83 mm[Hg] ROLANDO ([facility]) Body height 71 [in_i] 71 [in_i] ROLANDO ([facility]) Systolic blood pressure 128 mm[Hg] 128 mm[Hg] A THENA ([facility]) Diastolic blood pressure 83 mm[Hg] 83 mm[Hg] ROLANDO ([facility]) Body height 71 [in_i] 71 [in_i] ROLANDO ([facility]) Systolic blood pressure 128 mm[Hg] 128 mm[Hg] A THENA ([facility]) Diastolic blood pressure 83 mm[Hg] 83 mm[Hg] ROLANDO ([facility]) Body height 71 [in_i] 71 [in_i] ROLANDO ([facility]) Systolic blood pressure 128 mm[Hg] 128 mm[Hg] A THENA ([facility]) Diastolic blood pressure 83 mm[Hg] 83 mm[Hg] ROLANDO ([facility]) Body height 71 [in_i] 71 [in_i] ROLANDO ([facility]) Systolic blood pressure 128 mm[Hg] 128 mm[Hg] A THENA ([facility]) Diastolic blood pressure 83 mm[Hg] 83 mm[Hg] ROLANDO ([facility]) Body height 71 [in_i] 71 [in_i] ROLANDO ([facility]) Systolic blood pressure 128 mm[Hg] 128 mm[Hg] A THENA ([facility]) Diastolic blood pressure 83 mm[Hg] 83 mm[Hg] ROLANDO ([facility]) Body height 71 [in_i] 71 [in_i] ROLANDO ([facility]) Systolic blood pressure 128 mm[Hg] 128 mm[Hg] A THENA ([facility]) Diastolic blood pressure 83 mm[Hg] 83 mm[Hg] ROLANDO ([facility]) Body height 71 [in_i] 71 [in_i] ROLANDO ([facility]) Systolic blood pressure 128 mm[Hg] 128 mm[Hg] A THENA ([facility]) Diastolic blood pressure 83 mm[Hg] 83 mm[Hg] ROLANDO ([facility]) Body height 71 [in_i] 71 [in_i] ROLANDO ([facility]) Systolic blood pressure 128 mm[Hg] 128 mm[Hg] A THENA ([facility]) Diastolic blood pressure 83 mm[Hg] 83 mm[Hg] ROLANDO ([facility]) Body height 71 [in_i] 71 [in_i] ROLANDO ([facility]) Systolic blood pressure 128 mm[Hg] 128 mm[Hg] A THENA ([facility]) Diastolic blood pressure 83 mm[Hg] 83 mm[Hg] ROLANDO ([facility]) Body height 71 [in_i] 71 [in_i] ROLANDO ([facility]) Systolic blood pressure 128 mm[Hg] 128 mm[Hg] A THENA ([facility]) Diastolic blood pressure 83 mm[Hg] 83 mm[Hg] ROLANDO ([facility]) Body height 71 [in_i] 71 [in_i] ROLANDO ([facility]) Systolic blood pressure 128 mm[Hg] 128 mm[Hg] A THENA ([facility]) Heart rate 96 /min 96 /min MEDENT ([facility]) Systolic blood pressure 110 mm[Hg] 110 mm[Hg] M EDENT ([facility]) Diastolic blood pressure 80 mm[Hg] 80 mm[Hg] MEDENT ([facility]) Respiratory rate 20 /min 20 /min MEDENT ( [facility]) Diastolic blood pressure 74 mm[Hg] 74 mm[Hg] ROLANDO ([facility]) Body height 71 [in_i] 71 [in_i] ROLANDO ([facility]) Systolic blood pressure 119 mm[Hg] 119 mm[Hg] A THENA ([facility]) Diastolic blood pressure 74 mm[Hg] 74 mm[Hg] ROLANDO ([facility]) Body height 71 [in_i] 71 [in_i] ROLANDO ([facility]) Systolic blood pressure 119 mm[Hg] 119 mm[Hg] A THENA ([facility]) Diastolic blood pressure 74 mm[Hg] 74 mm[Hg] ROLANDO ([facility]) Body height 71 [in_i] 71 [in_i] ROLANDO ([facility]) Systolic blood pressure 119 mm[Hg] 119 mm[Hg] A THENA ([facility]) Diastolic blood pressure 74 mm[Hg] 74 mm[Hg] ROLANDO ([facility]) Body height 71 [in_i] 71 [in_i] ROLANDO ([facility]) Systolic blood pressure 119 mm[Hg] 119 mm[Hg] A THENA ([facility]) Diastolic blood pressure 74 mm[Hg] 74 mm[Hg] ROLANDO ([facility]) Body height 71 [in_i] 71 [in_i] ROLANDO ([facility]) Systolic blood pressure 119 mm[Hg] 119 mm[Hg] A THENA ([facility]) Diastolic blood pressure 74 mm[Hg] 74 mm[Hg] ROLANDO ([facility]) Body height 71 [in_i] 71 [in_i] ROLANDO ([facility]) Systolic blood pressure 119 mm[Hg] 119 mm[Hg] A THENA ([facility]) Diastolic blood pressure 74 mm[Hg] 74 mm[Hg] ROLANDO ([facility]) Body height 71 [in_i] 71 [in_i] ROLANDO ([facility]) Systolic blood pressure 119 mm[Hg] 119 mm[Hg] A THENA ([facility]) Diastolic blood pressure 74 mm[Hg] 74 mm[Hg] ROLANDO ([facility]) Body height 71 [in_i] 71 [in_i] ROLANDO ([facility]) Systolic blood pressure 119 mm[Hg] 119 mm[Hg] A THENA ([facility]) Diastolic blood pressure 74 mm[Hg] 74 mm[Hg] ROLANDO ([facility]) Body height 71 [in_i] 71 [in_i] ROLANDO ([facility]) Systolic blood pressure 119 mm[Hg] 119 mm[Hg] A THENA ([facility]) Diastolic blood pressure 74 mm[Hg] 74 mm[Hg] ROLANDO ([facility]) Body height 71 [in_i] 71 [in_i] ROLANDO ([facility]) Systolic blood pressure 119 mm[Hg] 119 mm[Hg] A THENA ([facility]) Diastolic blood pressure 74 mm[Hg] 74 mm[Hg] ROLANDO ([facility]) Body height 71 [in_i] 71 [in_i] ROLANDO ([facility]) Systolic blood pressure 119 mm[Hg] 119 mm[Hg] A THENA ([facility]) Diastolic blood pressure 74 mm[Hg] 74 mm[Hg] ROLANDO ([facility]) Body height 71 [in_i] 71 [in_i] ROLANDO ([facility]) Systolic blood pressure 119 mm[Hg] 119 mm[Hg] A THENA ([facility]) Body height 71 [in_i] 71 [in_i] ROLANDO ([facility]) Systolic blood pressure 119 mm[Hg] 119 mm[Hg] A THENA ([facility]) Diastolic blood pressure 74 mm[Hg] 74 mm[Hg] ROLANDO ([facility]) Diastolic blood pressure 74 mm[Hg] 74 mm[Hg] ROLANDO ([facility]) Body height 71 [in_i] 71 [in_i] ROLANDO ([facility]) Systolic blood pressure 119 mm[Hg] 119 mm[Hg] A THENA ([facility]) Diastolic blood pressure 74 mm[Hg] 74 mm[Hg] ROLANDO ([facility]) Body height 71 [in_i] 71 [in_i] ROLANDO ([facility]) Systolic blood pressure 119 mm[Hg] 119 mm[Hg] A THENA ([facility] [facility] Diastolic blood pressure 74 mm[Hg] 74 mm[Hg] ROLANDO ([facility]) Body height 71 [in_i] 71 [in_i] ROLANDO ([facility]) Systolic blood pressure 119 mm[Hg] 119 mm[Hg] A THENA ([facility]) Systolic blood pressure 170 mm[Hg] 170 mm[Hg] M EDENT ([facility], [facility]) manual Diastolic blood pressure 82 mm[Hg] 82 mm[Hg] MEDENT ([facility], [facility]) manual Systolic blood pressure 172 mm[Hg] 172 mm[Hg] M EDENT ([facility], [facility]) Diastolic blood pressure 93 mm[Hg] 93 mm[Hg] MEDENT ([facility], [facility]) Heart rate 103 /min 103 /min MEDENT ([facility], [facility]) Oxygen saturation in Arterial blood by Pulse oximetry 98 % 98 % [facility], [facility]) Body temperature 98.1 [degF] 98.1 [degF] MEDENT ([facility], [facility]) Body weight 220.00 [lb_av] 220.00 [lb_av] MEDEN T ([facility], [facility]) Body height 71 [in_i] 71 [in_i] MEDENT ([facility], [facility]) 5'11" Body mass index (BMI) [Ratio] 30.7 kg/m2 30[facility]7 [facility] Patient Treatment Plan of Care Planned Activity Planned Date Details Description Data Source (s) Acetaminophen 300 MG / Codeine Phosphate 30 MG Oral Ta blet 04/03/2019 12:00:00 AM EDT ROLANDO ([facility]) Acetaminophen 300 MG / Codeine Phosphate 30 MG Oral Ta blet 04/03/2019 12:00:00 AM EDT ROL[facility]O ([facility]) Acetaminophen 300 MG / Codeine Phosphate 30 MG Oral Ta blet 04/03/2019 12:00:00 AM EDT [facility]OL[place] ([facility]) Acetaminophen 300 MG / Codeine Phosphate 30 MG Oral Ta blet 04/03/2019 12:00:00 AM EDT ROL[place]O ([facility]) Acetaminophen 300 MG / Codeine Phosphate 30 MG Oral Ta blet 04/03/2019 12:00:00 AM EDT [facility]OL[facility]O ([facility]) Acetaminophen 300 MG / Codeine Phosphate 30 MG Oral Ta blet 04/03/2019 12:00:00 AM EDT ROLANDO ([facility]) Acetaminophen 300 MG / Codeine Phosphate 30 MG Oral Ta blet 04/03/2019 12:00:00 AM EDT ROL[place]O ([facility]) Acetaminophen 300 MG / Codeine Phosphate 30 MG Oral Ta blet 04/03/2019 12:00:00 AM EDT ROL[facility]O ([facility]) Acetaminophen 300 MG / Codeine Phosphate 30 MG Oral Ta blet 04/03/2019 12:00:00 AM EDT ROLANDO ([facility]) zonisamide 50 MG Oral Capsule ROLANDO ([facility]) topiramate 25 MG Oral Tablet ROLANDO ([facility]) Sumatriptan 25 MG Oral Tablet ROL[place]O ([facility]) Simvastatin 20 MG Oral Tablet ROL[place]O ([facility]) 0.5 ML pneumococcal capsular polysacchar triston type 1 vaccine 0.05 MG/ML / pneumococcal capsular polysaccharide type 10A vaccine 0.05 MG/ML / pneumococcal capsular polysaccharide type 11A vaccine 0.05 MG/ML / pneumococcal capsular polysaccharide type 12F vac ATHE NA ([facility]) Oseltamivir 75 MG Oral Capsule ROLANDO ([facility]) Ondansetron 8 MG Oral Tablet ROLANDO ([facility]) Ondansetron 4 MG Disintegrating Oral Tablet ROL[place]O ([facility]) Naproxen 250 MG Oral Tablet [place] ([facility]) Metoclopramide 10 MG Oral Tablet ROL[place]O ([facility]) 24 HR Metformin hydrochloride 500 MG Extended Release Oral Tablet [place]OL[place] ([facility]) meloxicam 7.5 MG Oral Tablet ROL[place]O ([facility]) Acetaminophen 325 MG / Hydrocodone Bitartrate 7.5 MG Oral Tablet ROLANDO ([facility]) Acetaminophen 325 MG / Hydrocodone Bitartrate 5 MG Oral Tablet ROL[place]O ([facility]) Fluzone Quad (PF) 60 mcg (15 m cg x 4)/0.5 mL IM syringe INJECT INTRAMUSCULARLY IN THE LEFT ARM ROLANDO ([facility]) Flucelvax Quad 60 mcg (15 mcg x 4)/0.5 mL intramuscular susp INJECT 0.5ML DIRECTED [facility]OL[facility] ([facility]) Flucelvax Quad [id number] 60 mcg (15 mcg x 4)/0.5 mL IM suspension ROLANDO ([facility]) duloxetine 30 MG Delayed Release Oral Capsule ROLANDO ([facility]) doxycycline hyclate 100 MG Oral Tablet ROL[place]O ([facility]) Divalproex Sodium 500 MG Delayed Release Oral Tablet [place] ([facility]) Divalproex Sodium 250 MG Delayed Release Oral Tablet ROL[place] ([facility]) carvedilol 3.125 MG Oral Tablet ROL[place]O ([facility]) Amoxicillin 875 MG / Clavulanate 125 MG Oral Tablet ROL[place]O ([facility]) Allopurinol 100 MG Oral Tablet ROL[place]O ([facility]) zonisamide 50 MG Oral Capsule ROL[place]O ([facility]) topiramate 25 MG Oral Tablet ROL[place]O ([facility]) Sumatriptan 25 MG Oral Tablet [place]OL[place] ([facility]) Simvastatin 20 MG Oral Tablet [place] ([facility]) 0.5 ML pneumococcal capsular polysacchar triston type 1 vaccine 0.05 MG/ML / pneumococcal capsular polysaccharide type 10A vaccine 0.05 MG/ML / pneumococcal capsular polysaccharide type 11A vaccine 0.05 MG/ML / pneumococcal capsular polysaccharide type 12F vac ATHE NA ([facility]) Oseltamivir 75 MG Oral Capsule ROLANDO ([facility]) Ondansetron 8 MG Oral Tablet ROLANDO ([facility]) Ondansetron 4 MG Disintegrating Oral Tablet ROLANDO ([facility]) Naproxen 250 MG Oral Tablet [place]OL[place] ([facility]) Metoclopramide 10 MG Oral Tablet ROL[place]O ([facility]) 24 HR Metformin hydrochloride 500 MG Extended Release Oral Tablet [place] ([facility]) meloxicam 7.5 MG Oral Tablet ROL[place]O ([facility]) Acetaminophen 325 MG / Hydrocodone Bitartrate 7.5 MG Oral Tablet ROLANDO ([facility]) Acetaminophen 325 MG / Hydrocodone Bitartrate 5 MG Oral Tablet ROL[place]O ([facility]) Fluzone Quad (PF) 60 mcg (15 m cg x 4)/0.5 mL IM syringe INJECT INTRAMUSCULARLY IN THE LEFT ARM ROLANDO ([facility]) Flucelvax Quad 60 mcg (15 mcg x 4)/0.5 mL intramuscular susp INJECT 0.5ML DIRECTED [facility]OL[facility]O ([facility]) Flucelvax Quad 60 mcg (15 mcg x 4)/0.5 mL IM suspension ROLANDO ([facility]) duloxetine 30 MG Delayed Release Oral Capsule ROLANDO ([facility]) doxycycline hyclate 100 MG Oral Tablet ROLANDO ([facility]) Divalproex Sodium 500 MG Delayed Release Oral Tablet ROL[place]O ([facility]) Divalproex Sodium 250 MG Delayed Release Oral Tablet [place]OL[place] ([facility]) carvedilol 3.125 MG Oral Tablet ROL[place]O ([facility]) Amoxicillin 875 MG / Clavulanate 125 MG Oral Tablet [place] ([facility]) Allopurinol 100 MG Oral Tablet ROL[place] ([facility]) zonisamide 50 MG Oral Capsule ROLANDO ([facility]) topiramate 25 MG Oral Tablet ROL[place]O ([facility]) Sumatriptan 25 MG Oral Tablet ROL[place]O ([facility]) Simvastatin 20 MG Oral Tablet ROL[place]O ([facility]) 0.5 ML pneumococcal capsular polysacchar triston type 1 vaccine 0.05 MG/ML / pneumococcal capsular polysaccharide type 10A vaccine 0.05 MG/ML / pneumococcal capsular polysaccharide type 11A vaccine 0.05 MG/ML / pneumococcal capsular polysaccharide type 12F vac ATHE NA ([facility]) Oseltamivir 75 MG Oral Capsule ROLANDO ([facility]) Ondansetron 8 MG Oral Tablet ROL[place]O ([facility]) Naproxen 250 MG Oral Tablet ROL[place] ([facility]) Metoclopramide 10 MG Oral Tablet ROLANDO ([facility]) 24 HR Metformin hydrochloride 500 MG Extended Release Oral Tablet ROL[place]O ([facility]) meloxicam 7.5 MG Oral Tablet ROL[place]O ([facility]) Acetaminophen 325 MG / Hydrocodone Bitartrate 7.5 MG Oral Tablet ROL[place]O ([facility]) Acetaminophen 325 MG / Hydrocodone Bitartrate 5 MG Oral Tablet ROL[place]O ([facility]) Fluzone Quad (PF) 60 mcg (15 m cg x 4)/0.5 mL IM syringe INJECT INTRAMUSCULARLY IN THE LEFT ARM ROLANDO ([facility]) Flucelvax Quad 60 mcg (15 mcg x 4)/0.5 mL intramuscular susp INJECT 0.5ML DIRECTED ROLANDO ([facility]) Flucelvax Quad 60 mcg (15 mcg x 4)/0.5 mL IM suspension ROLANDO ([facility]) duloxetine 30 MG Delayed Release Oral Capsule ROLANDO ([facility]) doxycycline hyclate 100 MG Oral Tablet ROL[place]O ([facility]) Divalproex Sodium 500 MG Delayed Release Oral Tablet [place] ([facility]) Divalproex Sodium 250 MG Delayed Release Oral Tablet [place]OL[place] ([facility]) Sumatriptan 25 MG Oral Tablet ROL[place]O ([facility]) Simvastatin 20 MG Oral Tablet ROL[place]O ([facility]) 0.5 ML pneumococcal capsular polysacchar triston type 1 vaccine 0.05 MG/ML / pneumococcal capsular polysaccharide type 10A vaccine 0.05 MG/ML / pneumococcal capsular polysaccharide type 11A vaccine 0.05 MG/ML / pneumococcal capsular polysaccharide type 12F vac ATHE NA ([facility]) Oseltamivir 75 MG Oral Capsule ROLANDO ([facility]) Ondansetron 8 MG Oral Tablet ROL[place]O ([facility]) Ondansetron 4 MG Oral Tablet ROL[place]O ([facility]) Ondansetron 4 MG Disintegrating Oral Tablet ROLADNO ([facility]) Naproxen 250 MG Oral Tablet ROLANDO ([facility]) Metoclopramide 10 MG Oral Tablet ROLANDO ([facility]) 24 HR Metformin hydrochloride 500 MG Extended Release Oral Tablet ROLANDO ([facility]) meloxicam 7.5 MG Oral Tablet ROL[place]O ([facility]) Acetaminophen 325 MG / Hydrocodone Bitartrate 7.5 MG Oral Tablet ROLANDO ([facility]) Acetaminophen 325 MG / Hydrocodone Bitartrate 5 MG Oral Tablet ROL[place]O ([facility]) Fluzone Quad (PF) 60 mcg (15 m cg x 4)/0.5 mL IM syringe INJECT INTRAMUSCULARLY IN THE LEFT ARM ROLANDO ([facility]) Flucelvax Quad 60 mcg (15 mcg x 4)/0.5 mL intramuscular susp INJECT 0.5ML DIRECTED ROLANDO ([facility]) Flucelvax Quad 60 mcg (15 mcg x 4)/0.5 mL IM suspension ROLANDO ([facility]) duloxetine 30 MG Delayed Release Oral Capsule ROLANDO ([facility]) doxycycline hyclate 100 MG Oral Tablet ROL[place]O ([facility]) Divalproex Sodium 500 MG Delayed Release Oral Tablet ROLANDO ([facility]) Divalproex Sodium 250 MG Delayed Release Oral Tablet ROL[place]O ([facility]) carvedilol 3.125 MG Oral Tablet ROL[place]O ([facility]) Amoxicillin 875 MG / Clavulanate 125 MG Oral Tablet ROLANDO ([facility]) Allopurinol 100 MG Oral Tablet ROLANDO ([facility]) zonisamide 50 MG Oral Capsule ROLANDO ([facility]) topiramate 50 MG Oral Tablet ROLANDO ([facility]) Sumatriptan 25 MG Oral Tablet ROLANDO ([facility]) Simvastatin 20 MG Oral Tablet ROLANDO ([facility]) 0.5 ML pneumococcal capsular polysacchar triston type 1 vaccine 0.05 MG/ML / pneumococcal capsular polysaccharide type 10A vaccine 0.05 MG/ML / pneumococcal capsular polysaccharide type 11A vaccine 0.05 MG/ML / pneumococcal capsular polysaccharide type 12F vac ATHE NA ([facility]) Oseltamivir 75 MG Oral Capsule ROLANDO ([facility]) Ondansetron 8 MG Oral Tablet ROLANDO ([facility]) Ondansetron 4 MG Oral Tablet ROLANDO ([facility]) Ondansetron 4 MG Disintegrating Oral Tablet ROLANDO ([facility]) Naproxen 250 MG Oral Tablet ROLANDO ([facility]) Metoclopramide 10 MG Oral Tablet ROLANDO ([facility]) 24 HR Metformin hydrochloride 500 MG Extended Release Oral Tablet ROLANDO ([facility]) meloxicam 7.5 MG Oral Tablet ROLANDO ([facility]) Acetaminophen 325 MG / Hydrocodone Bitartrate 7.5 MG Oral Tablet ROLANDO ([facility]) Acetaminophen 325 MG / Hydrocodone Bitartrate 5 MG Oral Tablet ROLANDO ([facility]) Fluzone Quad (PF) 60 mcg (15 m cg x 4)/0.5 mL IM syringe INJECT INTRAMUSCULARLY IN THE LEFT ARM ROLANDO ([facility]) Flucelvax Quad 60 mcg (15 mcg x 4)/0.5 mL intramuscular susp INJECT 0.5ML DIRECTED [facility]O ([facility] Flucelvax Quad 60 mcg (15 mcg x 4)/0.5 mL IM suspension ROLANDO ([facility]) doxycycline hyclate 100 MG Oral Tablet ROLANDO ([facility]) Divalproex Sodium 500 MG Delayed Release Oral Tablet ROLANDO ([facility]) Divalproex Sodium 250 MG Delayed Release Oral Tablet ROLANDO ([facility]) carvedilol 3.125 MG Oral Tablet ROLANDO ([facility]) Amoxicillin 875 MG / Clavulanate 125 MG Oral Tablet ROLANDO ([facility]) Allopurinol 100 MG Oral Tablet ROLANDO ([facility]) zonisamide 50 MG Oral Capsule ROLANDO ([facility]) topiramate 50 MG Oral Tablet ROLANDO ([facility]) Sumatriptan 25 MG Oral Tablet ROLANDO ([facility]) Simvastatin 20 MG Oral Tablet [place] ([facility]) 0.5 ML pneumococcal capsular polysacchar triston type 1 vaccine 0.05 MG/ML / pneumococcal capsular polysaccharide type 10A vaccine 0.05 MG/ML / pneumococcal capsular polysaccharide type 11A vaccine 0.05 MG/ML / pneumococcal capsular polysaccharide type 12F vac ATHE NA ([facility]) Oseltamivir 75 MG Oral Capsule ROLANDO ([facility]) Ondansetron 8 MG Oral Tablet ROLANDO ([facility]) Ondansetron 4 MG Oral Tablet ROLANDO ([facility]) Ondansetron 4 MG Disintegrating Oral Tablet ROLANDO ([facility]) Naproxen 250 MG Oral Tablet ROLANDO ([facility]) Metoclopramide 10 MG Oral Tablet ROLANDO ([facility]) 24 HR Metformin hydrochloride 500 MG Extended Release Oral Tablet ROLANDO ([facility]) Amoxicillin 875 MG / Clavulanate 125 MG Oral Tablet ROLANDO ([facility]) Allopurinol 100 MG Oral Tablet ROLANDO ([facility]) zonisamide 50 MG Oral Capsule ROLANDO ([facility]) topiramate 50 MG Oral Tablet ROLANDO ([facility]) Sumatriptan 25 MG Oral Tablet ROLANDO ([facility]) Simvastatin 20 MG Oral Tablet ROLANDO ([facility]) 0.5 ML pneumococcal capsular polysacchar triston type 1 vaccine 0.05 MG/ML / pneumococcal capsular polysaccharide type 10A vaccine 0.05 MG/ML / pneumococcal capsular polysaccharide type 11A vaccine 0.05 MG/ML / pneumococcal capsular polysaccharide type 12F vac ATHE NA ([facility]) Oseltamivir 75 MG Oral Capsule ROLANDO ([facility]) Ondansetron 8 MG Oral Tablet ROLANDO ([facility]) Ondansetron 4 MG Oral Tablet ROLANDO ([facility]) Ondansetron 4 MG Disintegrating Oral Tablet ROL[place]O ([facility]) Naproxen 250 MG Oral Tablet ROL[place] ([facility]) Metoclopramide 10 MG Oral Tablet ROLANDO ([facility]) 24 HR Metformin hydrochloride 500 MG Extended Release Oral Tablet ROLANDO ([facility]) meloxicam 7.5 MG Oral Tablet ROL[place]O ([facility]) Acetaminophen 325 MG / Hydrocodone Bitartrate 7.5 MG Oral Tablet ROLANDO ([facility]) Acetaminophen 325 MG / Hydrocodone Bitartrate 5 MG Oral Tablet ROLANDO ([facility]) Fluzone Quad [id number] (PF) 60 mcg (15 m cg x 4)/0.5 mL IM syringe INJECT INTRAMUSCULARLY IN THE LEFT ARM ROLANDO ([facility]) Flucelvax Quad 60 mcg (15 mcg x 4)/0.5 mL intramuscular susp INJECT 0.5ML [facility] Flucelvax Quad [id number] 60 mcg (15 mcg x 4)/0.5 mL IM suspension ROLANDO ([facility]) doxycycline hyclate 100 MG Oral Tablet ROLANDO ([facility]) Divalproex Sodium 500 MG Delayed Release Oral Tablet ROL[place] ([facility]) Divalproex Sodium 250 MG Delayed Release Oral Tablet ROL[place] ([facility]) carvedilol 3.125 MG Oral Tablet ROL[place]O ([facility]) Amoxicillin 875 MG / Clavulanate 125 MG Oral Tablet ROL[place]O ([facility]) Allopurinol 100 MG Oral Tablet ROLANDO ([facility]) zonisamide 50 MG Oral Capsule ROLANDO ([facility]) icosapent ethyl 1000 MG Oral Capsule [Vascepa] ROLANDO ([facility]) topiramate 50 MG Oral Tablet ROLANDO ([facility]) Sumatriptan 25 MG Oral Tablet ROL[place]O ([facility]) Simvastatin 20 MG Oral Tablet ROLANDO ([facility]) 0.5 ML pneumococcal capsular polysacchar triston type 1 vaccine 0.05 MG/ML / pneumococcal capsular polysaccharide type 10A vaccine 0.05 MG/ML / pneumococcal capsular polysaccharide type 11A vaccine 0.05 MG/ML / pneumococcal capsular polysaccharide type 12F vac ATHE NA ([facility]) Oseltamivir 75 MG Oral Capsule ROLANDO ([facility]) Ondansetron 8 MG Oral Tablet ROLANDO ([facility]) Ondansetron 4 MG Oral Tablet ROL[place]O ([facility]) Ondansetron 4 MG Disintegrating Oral Tablet ROLANDO ([facility]) Naproxen 250 MG Oral Tablet ROL[place]O ([facility]) Metoclopramide 10 MG Oral Tablet ROL[place]O ([facility]) meloxicam 7.5 MG Oral Tablet ROL[place]O ([facility]) Acetaminophen 325 MG / Hydrocodone Bitartrate 7.5 MG Oral Tablet ROLANDO ([facility]) Acetaminophen 325 MG / Hydrocodone Bitartrate 5 MG Oral Tablet ROLANDO ([facility]) doxycycline hyclate 100 MG Oral Tablet ROL[place]O ([facility]) Divalproex Sodium 500 MG Delayed Release Oral Tablet ROL[place]O ([facility]) Divalproex Sodium 250 MG Delayed Release Oral Tablet ROL[place]O ([facility]) carvedilol 3.125 MG Oral Tablet ROL[place]O ([facility]) Amoxicillin 875 MG / Clavulanate 125 MG Oral Tablet ROLANDO ([facility]) Naproxen 250 MG Oral Tablet ROLANDO ([facility]) Metoclopramide 10 MG Oral Tablet ROLANDO ([facility]) 24 HR Metformin hydrochloride 500 MG Extended Release Oral Tablet ROL[place]O ([facility]) meloxicam 7.5 MG Oral Tablet ROL[place]O ([facility]) Acetaminophen 325 MG / Hydrocodone Bitartrate 7.5 MG Oral Tablet ROLANDO ([facility]) Acetaminophen 325 MG / Hydrocodone Bitartrate 5 MG Oral Tablet ROL[place]O ([facility]) Fluzone Quad (PF) 60 mcg (15 m cg x 4)/0.5 mL IM syringe INJECT INTRAMUSCULARLY IN THE LEFT ARM ROLANDO ([facility]) Flucelvax Quad 60 mcg (15 mcg x 4)/0.5 mL intramuscular susp INJECT 0.5ML DIRECTED [facility]OL[facility]O ([facility]) Flucelvax Quad 60 mcg (15 mcg x 4)/0.5 mL IM suspension ROLANDO ([facility]) duloxetine 30 MG Delayed Release Oral Capsule ROLANDO ([facility]) doxycycline hyclate 100 MG Oral Tablet ROL[place]O ([facility]) Divalproex Sodium 500 MG Delayed Release Oral Tablet ROL[place]O ([facility]) Divalproex Sodium 250 MG Delayed Release Oral Tablet [place] ([facility]) carvedilol 3.125 MG Oral Tablet [place] ([facility]) Amoxicillin 875 MG / Clavulanate 125 MG Oral Tablet [place] ([facility]) Allopurinol 100 MG Oral Tablet ROL[place] ([facility]) zonisamide 50 MG Oral Capsule ROL[place]O ([facility]) topiramate 25 MG Oral Tablet [place] ([facility]) Sumatriptan 25 MG Oral Tablet R[place] ([facility]) Simvastatin 20 MG Oral Tablet [place] ([facility]) 0.5 ML pneumococcal capsular polysacchar triston type 1 vaccine 0.05 MG/ML / pneumococcal capsular polysaccharide type 10A vaccine 0.05 MG/ML / pneumococcal capsular polysaccharide type 11A vaccine 0.05 MG/ML / pneumococcal capsular polysaccharide type 12F vac ATHE NA ([facility]) Oseltamivir 75 MG Oral Capsule ROLANDO ([facility]) Ondansetron 8 MG Oral Tablet R[place] ([facility]) Ondansetron 4 MG Disintegrating Oral Tablet [place] ([facility]) Naproxen 250 MG Oral Tablet [place] ([facility]) Metoclopramide 10 MG Oral Tablet R[place] ([facility]) 24 HR Metformin hydrochloride 500 MG Extended Release Oral Tablet [place] ([facility]) meloxicam 7.5 MG Oral Tablet [place] ([facility]) Acetaminophen 325 MG / Hydrocodone Bitartrate 7.5 MG Oral Tablet [place] ([facility]) Acetaminophen 325 MG / Hydrocodone Bitartrate 5 MG Oral Tablet [place] ([facility]) Fluzone Quad (PF) 60 mcg (15 m cg x 4)/0.5 mL IM syringe INJECT INTRAMUSCULARLY IN THE LEFT ARM ROL[place] ([facility]) Flucelvax Quad 60 mcg (15 mcg x 4)/0.5 mL intramuscular susp INJECT 0.5ML DIRECTED [place] ([facility]) Flucelvax Quad 60 mcg (15 mcg x 4)/0.5 mL IM suspension [facility] ([facility]) duloxetine 30 MG Delayed Release Oral Capsule [facility] ([facility]) doxycycline hyclate 100 MG Oral Tablet [facility] ([facility]) Divalproex Sodium 500 MG Delayed Release Oral Tablet [facility] ([facility]) Divalproex Sodium 250 MG Delayed Release Oral Tablet [facility] ([facility]) carvedilol 3.125 MG Oral Tablet [facility] ([facility]) Amoxicillin 875 MG / Clavulanate 125 MG Oral Tablet [facility] ([facility]) Allopurinol 100 MG Oral Tablet [facility] ([facility]) zonisamide 50 MG Oral Capsule [facility] ([facility]) topiramate 50 MG Oral Tablet [facility] ([facility]) Sumatriptan 25 MG Oral Tablet [facility] ([facility]) Simvastatin 20 MG Oral Tablet [facility] ([facility]) 0.5 ML pneumococcal capsular polysacchar triston type 1 vaccine 0.05 MG/ML / pneumococcal capsular polysaccharide type 10A vaccine 0.05 MG/ML / pneumococcal capsular polysaccharide type 11A vaccine 0.05 MG/ML / pneumococcal capsular polysaccharide type 12F vac ATHE NA ([facility]) Ondansetron 8 MG Oral Tablet [facility] ([facility]) Ondansetron 4 MG Oral Tablet [facility] ([facility]) Ondansetron 8 MG Disintegrating Oral Tablet [facility] ([facility]) Naproxen 250 MG Oral Tablet [facility] ([facility]) meloxicam 7.5 MG Oral Tablet [facility] ([facility]) Acetaminophen 325 MG / Hydrocodone Bitartrate 7.5 MG Oral Tablet [facility] ([facility]) Acetaminophen 325 MG / Hydrocodone Bitartrate 5 MG Oral Tablet [facility] ([facility]) doxycycline hyclate 100 MG Oral Tablet [facility] ([facility]) Divalproex Sodium 500 MG Delayed Release Oral Tablet [facility] ([facility]) Divalproex Sodium 250 MG Delayed Release Oral Tablet [facility] ([facility]) carvedilol 3.125 MG Oral Tablet [facility] ([facility]) Amoxicillin 875 MG / Clavulanate 125 MG Oral Tablet [facility] ([facility]) topiramate 50 MG Oral Tablet [facility] ([facility]) Sumatriptan 25 MG Oral Tablet [facility] ([facility]) Simvastatin 20 MG Oral Tablet [facility] ([facility]) 0.5 ML pneumococcal capsular polysacchar triston type 1 vaccine 0.05 MG/ML / pneumococcal capsular polysaccharide type 10A vaccine 0.05 MG/ML / pneumococcal capsular polysaccharide type 11A vaccine 0.05 MG/ML / pneumococcal capsular polysaccharide type 12F vac ATHE NA ([facility]) Ondansetron 8 MG Oral Tablet [facility] ([facility]) Ondansetron 4 MG Oral Tablet [facility] ([facility]) Ondansetron 8 MG Disintegrating Oral Tablet [facility] ([facility]) Naproxen 250 MG Oral Tablet [facility] ([facility]) Metformin hydrochloride 1000 MG Oral Tablet [facility] ([facility]) meloxicam 7.5 MG Oral Tablet [facility] ([facility]) Acetaminophen 325 MG / Hydrocodone Bitartrate 7.5 MG Oral Tablet [facility] ([facility]) Acetaminophen 325 MG / Hydrocodone Bitartrate 5 MG Oral Tablet [facility] ([facility]) doxycycline hyclate 100 MG Oral Tablet [facility] ([facility]) Divalproex Sodium 500 MG Delayed Release Oral Tablet [facility] ([facility]) Divalproex Sodium 250 MG Delayed Release Oral Tablet [facility] ([facility]) carvedilol 3.125 MG Oral Tablet [facility] ([facility]) Amoxicillin 875 MG / Clavulanate 125 MG Oral Tablet [facility] ([facility]) topiramate 50 MG Oral Tablet [facility] ([facility]) Sumatriptan 25 MG Oral Tablet [facility] ([facility]) carvedilol 3.125 MG Oral Tablet [facility] ([facility]) Amoxicillin 875 MG / Clavulanate 125 MG Oral Tablet [facility] ([facility]) Allopurinol 100 MG Oral Tablet [facility] ([facility]) zonisamide 50 MG Oral Capsule [facility] ([facility]) topiramate 25 MG Oral Tablet [facility] ([facility]) Sumatriptan 25 MG Oral Tablet [facility] ([facility]) Simvastatin 20 MG Oral Tablet [facility] ([facility]) 0.5 ML pneumococcal capsular polysacchar triston type 1 vaccine 0.05 MG/ML / pneumococcal capsular polysaccharide type 10A vaccine 0.05 MG/ML / pneumococcal capsular polysaccharide type 11A vaccine 0.05 MG/ML / pneumococcal capsular polysaccharide type 12F vac ATHE NA ([facility]) Oseltamivir 75 MG Oral Capsule [facility] ([facility]) Ondansetron 8 MG Oral Tablet [facility] ([facility]) meloxicam 7.5 MG Oral Tablet [facility] ([facility]) Acetaminophen 325 MG / Hydrocodone Bitartrate 7.5 MG Oral Tablet [facility] ([facility]) Acetaminophen 325 MG / Hydrocodone Bitartrate 5 MG Oral Tablet [facility] ([facility]) Fluzone Quad [id number] (PF) 60 mcg (15 m cg x 4)/0.5 mL IM syringe INJECT INTRAMUSCULARLY IN THE LEFT ARM R[facility] ([facility]) Flucelvax Quad 60 mcg (15 mcg x 4)/0.5 mL intramuscular susp INJECT 0.5ML DIRECTED [facility] ([facility]) Flucelvax Quad 60 mcg (15 mcg x 4)/0.5 mL IM suspension [facility] ([facility]) doxycycline hyclate 100 MG Oral Tablet [facility] ([facility]) Divalproex Sodium 500 MG Delayed Release Oral Tablet [facility] ([facility]) Divalproex Sodium 250 MG Delayed Release Oral Tablet [facility] ([facility]) carvedilol 3.125 MG Oral Tablet [facility] ([facility]) Simvastatin 20 MG Oral Tablet [facility] ([facility]) 0.5 ML pneumococcal capsular polysacchar triston type 1 vaccine 0.05 MG/ML / pneumococcal capsular polysaccharide type 10A vaccine 0.05 MG/ML / pneumococcal capsular polysaccharide type 11A vaccine 0.05 MG/ML / pneumococcal capsular polysaccharide type 12F vac ATHE NA ([facility]) Ondansetron 8 MG Oral Tablet [facility] ([facility]) Ondansetron 4 MG Oral Tablet [facility] ([facility]) Ondansetron 8 MG Disintegrating Oral Tablet [facility] ([facility]) Naproxen 250 MG Oral Tablet [facility] ([facility]) Metformin hydrochloride 1000 MG Oral Tablet [facility] ([facility]) meloxicam 7.5 MG Oral Tablet [facility] ([facility]) topiramate 50 MG Oral Tablet [facility] ([facility]) Sumatriptan 25 MG Oral Tablet [facility] ([facility]) Simvastatin 20 MG Oral Tablet [facility] ([facility]) 0.5 ML pneumococcal capsular polysacchar triston type 1 vaccine 0.05 MG/ML / pneumococcal capsular polysaccharide type 10A vaccine 0.05 MG/ML / pneumococcal capsular polysaccharide type 11A vaccine 0.05 MG/ML / pneumococcal capsular polysaccharide type 12F vac ATHE NA ([facility]) Ondansetron 8 MG Oral Tablet [facility] ([facility]) Ondansetron 4 MG Oral Tablet [facility] ([facility]) Ondansetron 8 MG Disintegrating Oral Tablet [facility] ([facility]) Naproxen 250 MG Oral Tablet [facility] ([facility]) Metformin hydrochloride 1000 MG Oral Tablet [facility] ([facility]) meloxicam 7.5 MG Oral Tablet [facility] ([facility]) Acetaminophen 325 MG / Hydrocodone Bitartrate 7.5 MG Oral Tablet [facility] ([facility]) Acetaminophen 325 MG / Hydrocodone Bitartrate 5 MG Oral Tablet [facility] ([facility]) doxycycline hyclate 100 MG Oral Tablet [facility] ([facility]) Divalproex Sodium 500 MG Delayed Release Oral Tablet [facility] ([facility]) Divalproex Sodium 250 MG Delayed Release Oral Tablet [facility] ([facility]) carvedilol 3.125 MG Oral Tablet [facility] ([facility]) Amoxicillin 875 MG / Clavulanate 125 MG Oral Tablet [facility] ([facility]) topiramate 50 MG Oral Tablet [facility] ([facility]) Sumatriptan 25 MG Oral Tablet [facility] ([facility]) Ondansetron 8 MG Oral Tablet [facility] ([facility]) Ondansetron 4 MG Oral Tablet [facility] ([facility]) Ondansetron 8 MG Disintegrating Oral Tablet [facility] ([facility]) Naproxen 250 MG Oral Tablet [facility] ([facility]) meloxicam 7.5 MG Oral Tablet [facility] ([facility]) Acetaminophen 325 MG / Hydrocodone Bitartrate 7.5 MG Oral Tablet [facility] ([facility]) Acetaminophen 325 MG / Hydrocodone Bitartrate 5 MG Oral Tablet [facility] ([facility]) doxycycline hyclate 100 MG Oral Tablet [facility] ([facility]) Divalproex Sodium 250 MG Delayed Release Oral Tablet [facility] ([facility]) carvedilol 3.125 MG Oral Tablet [facility] ([facility]) Amoxicillin 875 MG / Clavulanate 125 MG Oral Tablet [facility] ([facility]) topiramate 50 MG Oral Tablet [facility] ([facility]) Sumatriptan 25 MG Oral Tablet [facility] ([facility]) Simvastatin 20 MG Oral Tablet [facility] ([facility]) 0.5 ML pneumococcal capsular polysacchar triston type 1 vaccine 0.05 MG/ML / pneumococcal capsular polysaccharide type 10A vaccine 0.05 MG/ML / pneumococcal capsular polysaccharide type 11A vaccine 0.05 MG/ML / pneumococcal capsular polysaccharide type 12F vac ATHE NA ([facility]) Ondansetron 8 MG Oral Tablet [facility] ([facility]) Ondansetron 4 MG Oral Tablet [facility] ([facility]) Ondansetron 8 MG Disintegrating Oral Tablet [facility] ([facility]) Naproxen 250 MG Oral Tablet [facility] ([facility]) meloxicam 7.5 MG Oral Tablet [facility] ([facility]) Acetaminophen 325 MG / Hydrocodone Bitartrate 7.5 MG Oral Tablet [facility] ([facility]) Acetaminophen 325 MG / Hydrocodone Bitartrate 5 MG Oral Tablet [facility] ([facility]) doxycycline hyclate 100 MG Oral Tablet [facility] ([facility]) Divalproex Sodium 500 MG Delayed Release Oral Tablet [facility] ([facility]) Divalproex Sodium 250 MG Delayed Release Oral Tablet [facility] ([facility]) carvedilol 3.125 MG Oral Tablet [facility] ([facility]) Amoxicillin 875 MG / Clavulanate 125 MG Oral Tablet [facility] ([facility]) Acetaminophen 325 MG / Hydrocodone Bitartrate 7.5 MG Oral Tablet [facility] ([facility]) Acetaminophen 325 MG / Hydrocodone Bitartrate 5 MG Oral Tablet [facility] ([facility]) doxycycline hyclate 100 MG Oral Tablet [facility] ([facility]) Divalproex Sodium 500 MG Delayed Release Oral Tablet [facility] ([facility]) Divalproex Sodium 250 MG Delayed Release Oral Tablet [facility] ([facility]) carvedilol 3.125 MG Oral Tablet [facility] ([facility]) Amoxicillin 875 MG / Clavulanate 125 MG Oral Tablet [facility] ([facility])
--- OUTSIDE RECORDS SUMMARY | 2021-07-23 07:27 | CCD ---
Author Author [facility] Organization [facility] Address Unknown Phone Unavailable Care Team Providers Care Dining Room Supervisor Name Role Phone Monster BARAKAT. HEEL COMPRESSOR TRIP Unavailable [phone] Monster BARAKAT. HEEL COMPRESSOR TRIP Unavailable [phone] Monster BARAKAT. HEEL COMPRESSOR TRIP Unavailable [phone] Monster BARAKAT. HEEL COMPRESSOR TRIP Unavailable [phone] Monster BARAKAT. HEEL COMPRESSOR TRIP Unavailable [phone] Monster BARAKAT. HEEL COMPRESSOR TRIP Unavailable [phone] Monster BARAKAT. HEEL COMPRESSOR TRIP Unavailable [phone] Monster BARAKAT. HEEL COMPRESSOR TRIP Unavailable [phone] Monster BARAKAT. HEEL COMPRESSOR TRIP Unavailable [phone] Monster BARAKAT. HEEL COMPRESSOR TRIP Unavailable [phone] Monster BARAKAT. HEEL COMPRESSOR TRIP Unavailable [phone] Monster BARAKAT. HEEL COMPRESSOR TRIP Unavailable [phone] ROSHNI, A. HEEL COMPRESSOR TRIP Unavailable [phone] Monster BARAAKT. HEEL COMPRESSOR TRIP Unavailable [phone] Monster BARAKAT. HEEL COMPRESSOR TRIP Unavailable [phone] Monster BARAKAT. HEEL COMPRESSOR TRIP Unavailable [phone] Avi Frances PA PA Unavailable [phone] FrancesAvi villatoro PA PA Unavailable [phone] FrancesAvi villatoro PA PA Unavailable [phone] FrancesAvi villatoro PA PA Unavailable [phone] Avi Frances PA PA Unavailable [phone] CLARK, Francois ZUNIGA NP Unavailable Unavailable LAROCK, [...] Carmen PA Unavailable Unavailable Jumalon, M Nyla HEEL COMPRESSOR Unavailable Unavailable Jumalon, M Nyla HEEL COMPRESSOR Unavailable Unavailable Jumalon, M Nyla HEEL COMPRESSOR Unavailable Unavailable Jumalon, M Nyla HEEL COMPRESSOR Unavailable Unavailable Jumalon, M Nyla HEEL COMPRESSOR Unavailable Unavailable Jumalon, M Nyla HEEL COMPRESSOR Unavailable Unavailable Jumalon, M Nyla HEEL COMPRESSOR Unavailable Unavailable Jumalon, M Nyla HEEL COMPRESSOR Unavailable Unavailable Jumalon, M Nyla HEEL COMPRESSOR Unavailable Unavailable Jumalon, M Nyla HEEL COMPRESSOR Unavailable Unavailable Jumalon, M Nyla HEEL COMPRESSOR Unavailable Unavailable Jumalon, M Nyla HEEL COMPRESSOR Unavailable Unavailable Jumalon, M Nyla HEEL COMPRESSOR Unavailable Unavailable Jumalon, M Nyla HEEL COMPRESSOR Unavailable Unavailable Jumalon, M Nyla HEEL COMPRESSOR Unavailable Unavailable Jumalon, M Nyla HEEL COMPRESSOR Unavailable Unavailable Jumalon, M Nyla HEEL COMPRESSOR Unavailable Unavailable Jumalon, M Nyla HEEL COMPRESSOR Unavailable Unavailable Jumalon, M Nyla HEEL COMPRESSOR Unavailable Unavailable Jumalon, M Nyla HEEL COMPRESSOR Unavailable Unavailable Jumalon, M Nyla HEEL COMPRESSOR Unavailable Unavailable Jumalon, M Nyla HEEL COMPRESSOR Unavailable Unavailable Jumalon, M Nyla HEEL COMPRESSOR Unavailable Unavailable Jumalon, M Nyla HEEL COMPRESSOR Unavailable Unavailable Jumalon, M Nyla HEEL COMPRESSOR Unavailable Unavailable Jumalon, M Nyla HEEL COMPRESSOR Unavailable Unavailable Jumalon, M Nyla HEEL COMPRESSOR Unavailable Unavailable Jumalon, M Nyla HEEL COMPRESSOR Unavailable Unavailable Jumalon, M Nyla HEEL COMPRESSOR Unavailable Unavailable Jumalon, M Nyla HEEL COMPRESSOR Unavailable Unavailable Malek, T Hamza MD Unavailable [phone] Malek, T Hamza MD Unavailable [phone] Malek, T Hamza MD Unavailable [phone] Malek, T Hamza MD Unavailable [phone] Malek, T Hamza MD Unavailable [phone] Malek, T Hamza MD Unavailable [phone] Malek, T Hamza MD Unavailable [phone] Malek, T Hamza MD Unavailable [phone] Malek, T Hamza MD Unavailable [phone] Malek, T Hamza MD Unavailable [phone] Malek, T Hamza MD Unavailable [phone] Malek, T Hamza MD Unavailable [phone] Malek, T Hamza MD Unavailable [phone] Malek, T Hamza MD Unavailable [phone] Malek, T Hamza MD Unavailable [phone] Malek, T Hamza MD Unavailable [phone] Malek, T Hamza MD Unavailable [phone] Malek, T Hamza MD Unavailable [phone] Malek, T Hamza MD Unavailable [phone] Malelinda, Paco Paloma CARLSON Unavailable [phone] Malelinda, Paco Paloma CARLSON Unavailable [phone] Malelinda, Paco Paloma CARLSON Unavailable [phone] RING, K KYLEIGH PA Unavailable Unavailable RING, [...] Szymanski MD Unavailable Unavailable CHACHO, B LESA WIRE FRAME LAMP SHADE MAKER Unavailable Unavailable CHACHO, B LESA WIRE FRAME LAMP SHADE MAKER Unavailable Unavailable CHACHO, B LESA WIRE FRAME LAMP SHADE MAKER Unavailable Unavailable CHACHO, B LESA WIRE FRAME LAMP SHADE MAKER Unavailable Unavailable CHACHO, B LESA WIRE FRAME LAMP SHADE MAKER Unavailable Unavailable CHACHO, B LESA WIRE FRAME LAMP SHADE MAKER Unavailable Unavailable CHACHO, B LESA WIRE FRAME LAMP SHADE MAKER Unavailable Unavailable CHACHO, B LESA WIRE FRAME LAMP SHADE MAKER Unavailable Unavailable CHACHO, B LESA WIRE FRAME LAMP SHADE MAKER Unavailable Unavailable CHACHO, B LESA WIRE FRAME LAMP SHADE MAKER Unavailable Unavailable CHACHO, B LESA WIRE FRAME LAMP SHADE MAKER Unavailable Unavailable CHACHO, B LESA WIRE FRAME LAMP SHADE MAKER Unavailable Unavailable CHACHO, B LESA WIRE FRAME LAMP SHADE MAKER Unavailable Unavailable CHACHO, B LESA WIRE FRAME LAMP SHADE MAKER Unavailable Unavailable CHACHO, B LESA WIRE FRAME LAMP SHADE MAKER Unavailable Unavailable CHACHO, B LESA WIRE FRAME LAMP SHADE MAKER Unavailable Unavailable CHACHO, B LESA WIRE FRAME LAMP SHADE MAKER Unavailable Unavailable CHACHO, B LESA WIRE FRAME LAMP SHADE MAKER Unavailable Unavailable CHACHO, B LESA WIRE FRAME LAMP SHADE MAKER Unavailable Unavailable CHACHO, B LESA WIRE FRAME LAMP SHADE MAKER Unavailable Unavailable CHACHO, B LESA WIRE FRAME LAMP SHADE MAKER Unavailable Unavailable CHACHO, B LESA WIRE FRAME LAMP SHADE MAKER Unavailable Unavailable CHACHO, B LESA WIRE FRAME LAMP SHADE MAKER Unavailable Unavailable CHACHO, B LESA WIRE FRAME LAMP SHADE MAKER Unavailable Unavailable CHACHO, B LESA WIRE FRAME LAMP SHADE MAKER Unavailable Unavailable CHACHO, B LESA WIRE FRAME LAMP SHADE MAKER Unavailable Unavailable CHACHO, B LESA WIRE FRAME LAMP SHADE MAKER Unavailable Unavailable CHACHO, B LESA WIRE FRAME LAMP SHADE MAKER Unavailable Unavailable CHACHO, B LESA WIRE FRAME LAMP SHADE MAKER Unavailable Unavailable CHACHO, B LESA WIRE FRAME LAMP SHADE MAKER Unavailable Unavailable CHACHO, B LESA WIRE FRAME LAMP SHADE MAKER Unavailable Unavailable CHACHO, B LESA WIRE FRAME LAMP SHADE MAKER Unavailable Unavailable CHACHO, B LESA WIRE FRAME LAMP SHADE MAKER Unavailable Unavailable CHACHO, B LESA WIRE FRAME LAMP SHADE MAKER Unavailable Unavailable CHACHO, B LESA WIRE FRAME LAMP SHADE MAKER Unavailable Unavailable CHACHO, B LESA WIRE FRAME LAMP SHADE MAKER Unavailable Unavailable CHACHO, B LESA WIRE FRAME LAMP SHADE MAKER Unavailable Unavailable CHACHO, B LESA WIRE FRAME LAMP SHADE MAKER Unavailable Unavailable CHACHO, B LESA WIRE FRAME LAMP SHADE MAKER Unavailable Unavailable CHACHO, B LESA WIRE FRAME LAMP SHADE MAKER Unavailable Unavailable CHACHO, B LESA WIRE FRAME LAMP SHADE MAKER Unavailable Unavailable CHACHO, B LESA WIRE FRAME LAMP SHADE MAKER Unavailable Unavailable CHACHO, B LESA WIRE FRAME LAMP SHADE MAKER Unavailable Unavailable CHACHO, B LESA WIRE FRAME LAMP SHADE MAKER Unavailable Unavailable CHACHO, B LESA WIRE FRAME LAMP SHADE MAKER Unavailable Unavailable CHACHO, B LESA WIRE FRAME LAMP SHADE MAKER Unavailable Unavailable CHACHO, B LESA WIRE FRAME LAMP SHADE MAKER Unavailable Unavailable CHACHO, B LESA WIRE FRAME LAMP SHADE MAKER Unavailable Unavailable CHACHO, B LESA WIRE FRAME LAMP SHADE MAKER Unavailable Unavailable CHACHO, B LESA WIRE FRAME LAMP SHADE MAKER Unavailable Unavailable CHACHO, B LESA WIRE FRAME LAMP SHADE MAKER Unavailable Unavailable CHACHO, B LESA WIRE FRAME LAMP SHADE MAKER Unavailable Unavailable CHACHO, B LESA WIRE FRAME LAMP SHADE MAKER Unavailable Unavailable CHACHO, B LESA WIRE FRAME LAMP SHADE MAKER Unavailable Unavailable CHACHO, B LESA WIRE FRAME LAMP SHADE MAKER Unavailable Unavailable CHACHO, B LESA WIRE FRAME LAMP SHADE MAKER Unavailable Unavailable CHACHO, B LESA WIRE FRAME LAMP SHADE MAKER Unavailable Unavailable CHACHO, B LESA WIRE FRAME LAMP SHADE MAKER Unavailable Unavailable CHACHO, B LESA WIRE FRAME LAMP SHADE MAKER Unavailable Unavailable CHACHO, B LESA WIRE FRAME LAMP SHADE MAKER Unavailable Unavailable CHACHO, B LESA WIRE FRAME LAMP SHADE MAKER Unavailable Unavailable CHACHO, B LESA WIRE FRAME LAMP SHADE MAKER Unavailable Unavailable Navarro, Leila SOTELO Unavailable Unavailable [...] Sarah MD Unavailable Unavailable Alex Mae Unavailable [phone] Alex Mae Unavailable [phone] Alex Mae Unavailable [phone] Alex Mae Unavailable [phone] Alex Mae Unavailable [phone] Alex Mae Unavailable [phone] Campanaro, Mare Deborah PA Unavailable Unavailable Campanaro, [...] is protected by Article 27-F of the [place] State Public Health law. If you continue you may have access to information: Regarding HIV / AIDS; Provided by facilities licensed or operated by the [facility] Office of Mental Health; or Provided by the [facility] Office for People With Developmental Disabilities. If such information is present, then the following [facility] mandated warning applies: This information has [...] law may result in a fine or half-way sentence or both. A general authorization for the release of medical or other information is NOT sufficient authorization for further disc losure. Family History Family Member Name Family Member Gender Family Member Status Date o f Status Description Data Source(s) Unknown Female Problem MEDENT ([facility]) Unknown Female Problem MEDENT ([facility]) Unknown Female Problem MEDENT ([facility]) Encounters Encounter Providers Location Date Indications Data Source(s ) Outpatient Attender: Carlos SOTELO 07/09/20 07:33:41 AM EDT - 07/09/2021 08:05:52 AM EDT DocuTap ([facility] ) Outpatient Attender: TRIP BARAKAT 06/06 05:59:04 PM EDT - 06/29/2021 07:05:45 PM EDT [facility]uTap ([facility] ) Preadmit Attender: Mickey Nash PA-C 06/09/2021 05:42:00 [facility] Outpatient Attender: Alex Mae 06/02 11:55:14 AM EDT - 06/02/2021 01:04:09 PM EDT [facility] ([facility] ) Outpatient Attender: Paloma Monreal MD [facility]PS[facility]ORT-CPSCANEU 05/22 02:59:00 PM EDT - 05/22/2021 03:00:00 PM EDT [facility] Patient discharged. Nyla Boland, WIRE FRAME LAMP SHADE MAKER: [address], [address], [place] [address], Ph. Attender: Nyla Boland HEEL COMPRESSOR [place] - [facility] 05/05/2021 12:00:00 AM EDT ATHE NA ([facility]) Nyla Boland, WIRE FRAME LAMP SHADE MAKER: [address], [place] [address], Ph. Attender: Nyla Boland [facility] 04/10/2021 12:00:00 AM EDT ATHE NA ([facility]) Nyla Boland, WIRE FRAME LAMP SHADE MAKER: [address], [place] [address], Ph. Attender: Nyla Boland [facility] 04/10/2021 12:00:00 AM EDT ATHAvi NA ([facility]) Outpatient Attender: Carlos SOTELO 04/08/20 04:40:14 PM EDT - 04/08/2021 05:36:44 PM EDT [facility]Tap ([facility] ) Outpatient Attender: Sarah Lee MD Physical Therapy 02/20 03:30:00 PM EDT MEG ([facility] ) Nyla Boland, WIRE FRAME LAMP SHADE MAKER: [address], [place] [address], Ph. Attender: Nyla Boland [facility] 02/13/2021 12:00:00 AM EDT ATHE NA ([facility]) Nyla Boland, WIRE FRAME LAMP SHADE MAKER: [address], [place] [address], Ph. Attender: Nyla Boland [facility] 02/13/2021 12:00:00 AM EDT ATHE NA ([facility]) Nyla Boland, WIRE FRAME LAMP SHADE MAKER: [address], [place] [address], Ph. Attender: Nyla CASTRO [place] - [facility] 02/13/2021 12:00:00 AM EDT ATHE NA ([facility]) Stephon Cullen MD: [address], [place] [address], Ph. Attender: Stephon Cullen MD [place] - [facility] 01/26/2021 12:00:00 AM EDT ROLANDO ([facility]) Stephon Cullen MD: [address], [address] [place], [place] [address], Ph. Attender: Stephon Cullen MD [place] - [facility] 01/26/2021 12:00:00 AM EDT ROLANDO ([facility]) Stephon Cullen MD: [address], [address] [place], [place] [address], Ph. Attender: Stephon Cullen MD [place] - [facility] 01/26/2021 12:00:00 AM EDT ROLANDO ([facility]) Stephon Cullen MD: [address], [address] [place], [place] [address], Ph. Attender: Stephon Cullen MD [place] - [facility] 01/26/2021 12:00:00 AM EDT ROLANDO ([facility]) Outpatient Attender: Carmen SOTELO [facility] 01/23/2021 09:00:00 AM EDT MEDENT ([facility]) [place] [address] [address] 01/21/2021 12:00:00 AM EDT eCW1 ([facility]) Nyla Boland, WIRE FRAME LAMP SHADE MAKER: [address], [address], [place] [address], Ph. Attender: Nyla Boland [facility] 01/16/2021 12:00:00 AM EDT ATHE NA ([facility]) Nyla Boland, WIRE FRAME LAMP SHADE MAKER: [address], [address], [place] [address], Ph. Attender: Nyla Boland [facility] - [facility] 01/16/2021 12:00:00 AM EDT ATHE NA ([facility]) Nyla Boland, WIRE FRAME LAMP SHADE MAKER: [address], [address], [place] [address], Ph. Attender: Nyla Boland [facility] 01/16/2021 12:00:00 AM EDT ATHE NA ([facility]) Nyla Boland, WIRE FRAME LAMP SHADE MAKER: [address], [address], [place] [address], Ph. Attender: Nyla Boland [facility] 01/16/2021 12:00:00 AM EDT ATHE NA ([facility]) Nyla Boland, WIRE FRAME LAMP SHADE MAKER: [address], [address], [place] [address], Ph. Attender: Nyla Boland [facility] 01/16/2021 12:00:00 AM EDT ATHE NA ([facility]) Outpatient Attender: KYLEIGH [facility] 01/15/2021 03:35:00 PM EDT MEG ([facility]) Outpatient Attender: LEXX JEWELL [facility] 01/12 11:17:28 AM EDT - 01/12/2021 11:59:39 AM EDT [facility]ap ([facility] ) [place] [address] [address] 01/08/2021 12:00:00 AM EDT eCW1 ([facility]) [place] [address] [address] 12/29/2020 12:00:00 AM EDT eCW1 ([facility]) Nyla Boland, WIRE FRAME LAMP SHADE MAKER: [address], [place] [address], Ph. Attender: Nyla Boland [facility] - [facility] 12/19/2020 12:00:00 AM EDT ATHAvi GUERRERO ([facility]) Nyla Boland, WIRE FRAME LAMP SHADE MAKER: [address], [place] [address], Ph. Attender: Nyla Boland [facility] 12/19/2020 12:00:00 AM EDT ATHE NA ([facility]) Nyla Boland, WIRE FRAME LAMP SHADE MAKER: [address], [place] [address], Ph. Attender: Nyla Boland [facility] 12/19/2020 12:00:00 AM EDT ATHE NA ([facility]) Nyla Boland, WIRE FRAME LAMP SHADE MAKER: [address], [place] [address], Ph. Attender: Nyla Boland [facility] - [facility] 12/19/2020 12:00:00 AM EDT ATHAvi NA ([facility]) Nyla Boland, WIRE FRAME LAMP SHADE MAKER: [address], [place] [address], Ph. Attender: Nyla Boladn [facility] - [facility] 12/19/2020 12:00:00 AM EDT ATHE NA ([facility]) Nyla Boland, WIRE FRAME LAMP SHADE MAKER: [address], [address], [place] [address], Ph. Attender: Nyla Boland [facility] - [facility] 12/19/2020 12:00:00 AM EDT ATHAvi NA ([facility]) Stephon Cullen MD: [address], [place] [address], Ph. Attender: Setphon Cullen MD [place] - [facility] 12/04/2020 12:00:00 AM EDT ROLANDO ([facility]) Stephon Cullen MD: [address], [place] [address], Ph. Attender: Stephon Cullen MD [place] - [facility] 12/04/2020 12:00:00 AM EDT ROLANDO ([facility]) Stephon Cullen MD: [address], [place] [address], Ph. Attender: Stephon Cullen MD [place] - [facility] 12/04/2020 12:00:00 AM EDT ROLANDO ([facility]) Stephon Cullen MD: [address], [place] [address], Ph. Attender: Stephon Cullen MD [place] - [facility] 12/04/2020 12:00:00 AM EDT ROLANDO ([facility]) Stephon Cullen MD: [address], [address], [place] [address], Ph. Attender: Stephon Cullen MD [place] - [facility] 12/04/2020 12:00:00 AM EDT ROLANDO ([facility]) Stephon Cullen MD: [address], [place] [address], Ph. Attender: Stephon Cullen MD [place] - [facility] 12/04/2020 12:00:00 AM EDT ROLANDO ([facility]) Stephon Cullen MD: [address], [place] [address], Ph. Attender: Stephon Cullen MD [place] - [facility] 12/04/2020 12:00:00 AM EDT ROLANDO ([facility]) Outpatient Attender: LESA FLOR NP Physical Therapy 08:45:00 AM EDT MEDENT ([facility]) Stephon Cullen MD: [address], [place] [address], Ph. [phone] Attender: Stephon VILLARREAL - [facility] 12/01/2020 12:00:00 AM EDT ROLANDO ([facility]) Stephon Cullen MD: [address], [place] [address], Ph. [phone] Attender: Stephon VILLARREAL - [facility] 12/01/2020 12:00:00 AM EDT ROLANDO ([facility]) Stephon Cullen MD: [address], [place] [address], Ph. [phone] Attender: Stephon VILLARREAL - [facility] 12/01/2020 12:00:00 AM EDT ROLANDO ([facility]) Stephon Cullen MD: [address], [place] [address], Ph. [phone] Attender: Stephon Cullen MD [place] - [facility] 12/01/2020 12:00:00 AM EDT ROLANDO ([facility]) Stephon Cullen MD: [address], [place] [address], Ph. [phone] Attender: Stephon Cullen MD [place] - [facility] 12/01/2020 12:00:00 AM EDT ROLANDO ([facility]) Stephon Cullen MD: [address], [place] [address], Ph. [phone] Attender: Stephon Cullen MD [place] - [facility] 12/01/2020 12:00:00 AM EDT ROLANDO ([facility]) Stephon Cullen MD: [address], [place] [address], Ph. [phone] Attender: Stephon Cullen MD [place] - [facility] 12/01/2020 12:00:00 AM EDT ROLANDO ([facility]) Stephon Cullen MD: [address], [place] [address], Ph. [phone] Attender: Stephon Cullen MD [place] - [facility] 12/01/2020 12:00:00 AM EDT ROLANDO ([facility]) Nyla Boland, WIRE FRAME LAMP SHADE MAKER: [address], [address], [place] [address], Ph. Attender: Nyla [facility] - [facility] 11/27/2020 12:00:00 AM EDT ATHE NA ([facility]) Nyla Boland, WIRE FRAME LAMP SHADE MAKER: [address], [address], [place] [address], Ph. Attender: Nyla Boland [facility] - [facility] 11/27/2020 12:00:00 AM EDT ATHE NA ([facility]) Nyla Boland, WIRE FRAME LAMP SHADE MAKER: [address], [address], [place] [address], Ph. Attender: Nyla Boland [facility] - [facility] 11/27/2020 12:00:00 AM EDT ATHE NA ([facility]) Nyla Boland, WIRE FRAME LAMP SHADE MAKER: [address], [place] [address], Ph. Attender: Nyla Boland [facility] - [facility] 11/27/2020 12:00:00 AM EDT ATHE NA ([facility]) Nyla Boland, WIRE FRAME LAMP SHADE MAKER: [address], [place] [address], Ph. Attender: Nyla Boland [facility] - [facility] 11/27/2020 12:00:00 AM EDT ATHE NA ([facility]) Nyla Boland, WIRE FRAME LAMP SHADE MAKER: [address], [address], [place] [address], Ph. Attender: Nyla Boland [facility] - [facility] 11/27/2020 12:00:00 AM EDT ATHE NA ([facility]) Nyla Boland, WIRE FRAME LAMP SHADE MAKER: [address], [address], [place] [address], Ph. Attender: Nyla Bolnad [facility] - [facility] 11/27/2020 12:00:00 AM EDT ATHE NA ([facility]) Nyla Boland, WIRE FRAME L[employer] SHADE MAKER: [address], [place] [address], Ph. Attender: Nyla Boland [facility] - [facility] 11/27/2020 12:00:00 AM EDT ATHE NA ([facility]) Nyla Boland, WIRE FRAME L[employer] SHADE MAKER: [address], [place] [address], Ph. Attender: Nyla Boland [facility] 11/27/2020 12:00:00 AM EDT ATHE NA ([facility]) Outpatient Attender: NADIA RODAS NP 11/03 04:40:12 PM EDT - 11/20/2020 05:44:42 PM EDT Mavis ([facility] ) Nyla Boland, WIRE FRAME L[employer] SHADE MAKER: [address], [place] [address], Ph. Attender: Nyla Boland [facility] - [facility] 11/14/2020 12:00:00 AM EST ATHE NA ([facility]) Nyla Boland, WIRE FRAME L[employer] SHADE MAKER: [address], [place] [address], Ph. Attender: Nyla Boland [facility] - [facility] 11/14/2020 12:00:00 AM EST ATHE NA ([facility]) Nyla Boland, WIRE FRAME L[employer] SHADE MAKER: [address], [place] [address], Ph. Attender: Nyla Boland [facility] - [facility] 11/14/2020 12:00:00 AM EST ATHE NA ([facility]) Nyla Boland, WIRE FRAME L[employer] SHADE MAKER: [address], [place] [address], Ph. Attender: Nyla Boland [facility] - [facility] 11/14/2020 12:00:00 AM EST ATHE NA ([facility]) Nyla Boland, WIRE [employer] L[employer] SHADE MAKER: [address], [place] [address], Ph. Attender: Nyla Boland [facility] - [facility] 11/14/2020 12:00:00 AM EST ATHE NA ([facility]) Nyla Boland, WIRE [employer] L[employer] SHADE MAKER: [address], [place] [address], Ph. Attender: Nyla Boland [facility] - [facility] 11/14/2020 12:00:00 AM EST ATHE NA ([facility]) Nyla Boland, WIRE [employer] L[employer] SHADE MAKER: [address], [place] [address], Ph. Attender: Nyla Boland [facility] - [facility] 11/14/2020 12:00:00 AM EST ATHE NA ([facility]) Nyla Boland, WIRE [employer] L[employer] SHADE MAKER: [address], [place] [address], Ph. Attender: Nyla Boland [facility] - [facility] 11/14/2020 12:00:00 AM EST ATHE NA ([facility]) Nyla Boland, WIRE FRAME L[employer] SHADE MAKER: [address]328 [address], [address], [place] [address], Ph. Attender: Nyla Boland [facility] 11/14/2020 12:00:00 AM EST ATHE NA ([facility]) Nyla Boland, WIRE [employer]AME L[employer] SHADE MAKER: [address], [address], [place] [address], Ph. Attender: Nyla Boland [facility] - [facility] 11/14/2020 12:00:00 AM EST ATHE NA ([facility]) Outpatient Attender: Marva SOTELO [facility]CPSC[facility] 0 11/13/2020 11:16:00 AM EST - 11/13/2020 11:17:00 AM EST [facility] Patient discharged. Outpatient Attender: Gena barragany 11/07/2020 09:45:00 AM EST MEDENT ([facility]) Nyla Boland, WIRE FRAME L[employer] SHADE MAKER: [address], [place] [address], Ph. Attender: Nyla Boland [facility] 09/26/2020 12:00:00 AM EST ATHE NA ([facility]) Nyla Boland, WIRE FRAME L[employer] SHADE MAKER: [address]704 [address], [address], [place] [address], Ph. Attender: Nyla Boland [facility] 09/26/2020 12:00:00 AM EST ATHE NA ([facility]) Nyla Boland, WIRE [employer]AME L[employer] SHADE MAKER: [address], [place] [address], Ph. Attender: Nyla Boland [facility] [place] - [facility] 09/26/2020 12:00:00 AM EST ATHE NA ([facility]) Nyla Boland, WIRE FRAME L[employer] SHADE MAKER: [address], [place] [address], Ph. Attender: Nyla Boland [facility] - [facility] 09/26/2020 12:00:00 AM EST ATHE NA ([facility]) Nyla Boland, WIRE FRAME L[employer] SHADE MAKER: [address], [place] [address], Ph. Attender: Nyla Boland [facility] - [facility] 09/26/2020 12:00:00 AM EST ATHE NA ([facility]) Nyla Boland, WIRE FRAME L[employer] SHADE MAKER: [address], [place] [address], Ph. Attender: Nyla Boland [facility] - [facility] 09/26/2020 12:00:00 AM EST ATHE NA ([facility]) Nyla Boland, WIRE [employer]AME L[employer] SHADE MAKER: [address], [place] [address], Ph. Attender: Nyla Boland [facility] - [facility] 09/26/2020 12:00:00 AM EST ATHE NA ([facility]) Nyla Boland, WIRE FRAME L[employer] SHADE MAKER: [address]38 [address], [address], [place] [address], Ph. Attender: Nyla Boland [facility] - [facility] 09/26/2020 12:00:00 AM EST ATHE NA ([facility]) Nyla Boland, WIRE [employer]AME L[employer] SHADE MAKER: [address]454 [address], [address], [place] [address], Ph. Attender: Nyla Boland [facility] - [facility] 09/26/2020 12:00:00 AM EST ATHE NA ([facility]) Nyla Boland, WIRE [employer] L[employer] SHADE MAKER: [address], [place] [address], Ph. Attender: Nyla Boland [facility] - [facility] 09/26/2020 12:00:00 AM EST ATHE NA ([facility]) Nyla Boland, WIRE [employer]AME L[employer] SHADE MAKER: [address]356 [address], [place] [address], Ph. Attender: Nyla Boland [facility] - [facility] 09/26/2020 12:00:00 AM EST ATHE NA ([facility]) Stephon Cullen MD: [address]7762 [address], [place] [address], Ph. Attender: Stephon Cullen MD [place] - [facility] 09/11/2020 12:00:00 AM EST [place] ([facility]) Stephon Cullen MD: 97487 [address], [place] [address], Ph. Attender: Stephon Cullen MD [place] - [facility] 09/11/2020 12:00:00 AM EST ROL[place]O ([facility]) Stephon Cullen MD: 45387 [address], [place] [address], Ph. Attender: Stephon Cullen MD [place] - [facility] 09/11/2020 12:00:00 AM EST ROL[place]O ([facility]) Stephon Cullen MD: 07382 [address], [address], [place] [address], Ph. Attender: Stephon Cullen MD [place] - [facility] 09/11/2020 12:00:00 AM EST R[place]O ([facility]) Stephon Cullen MD: 63003 [address], [place] [address], Ph. Attender: Stephon Cullen [place] - [facility] 09/11/2020 12:00:00 AM EST ROLANDO ([facility]) Stephon Cullen MD: 23595 [address], [place] [address], Ph. Attender: Stephon Cullen MD [place] - [facility] 09/11/2020 12:00:00 AM EST ROLANDO ([facility]) Stephon Cullen MD: 16086 [address], [place] [address], Ph. Attender: Stephon Cullen MD [place] - [facility] 09/11/2020 12:00:00 AM EST R[place] ([facility]) Stephon Cullen MD: 45828 [address], [place] [address], Ph. Attender: Stephon Cullen MD [place] - [facility] 09/11/2020 12:00:00 AM EST ROLANDO ([facility]) Stephon Cullen MD: 45742 [address], [place] [address], Ph. Attender: Stephon VILLARREAL - [facility] 09/11/2020 12:00:00 AM EST ROL[place]O ([facility]) Stephon Cullen MD: 72369 [address], [place] [address], Ph. Attender: Stephon Cullen MD [place] - [facility] 09/11/2020 12:00:00 AM EST ROLANDO ([facility]) Stephon Cullen MD: [address]35 [address], [place] [address], Ph. Attender: Stephon Cullen MD [place] - [facility] 09/11/2020 12:00:00 AM EST ROLANDO ([facility]) Outpatient Attender: LESA FLOR NP Physical Therapy 08:00:00 AM EST MEDENT ([facility]) Stephon Cullen MD: [address]33 [address], [facility] [place] [address], Ph. [phone] Attender: Stephon VILLARREAL - [facility] 09/08/2020 12:00:00 AM EST ROLANDO ([facility]) Stephon Cullen MD: [address]0738 [address], [place] [address], Ph. [phone] Attender: Stephon VILLARREAL - [facility] 09/08/2020 12:00:00 AM EST ROLANDO ([facility]) Stephon Cullen MD: 15671 [address], [place] [address], Ph. [phone] Attender: Stephon Cullen MD [place] - [facility] 09/08/2020 12:00:00 AM EST ROLANDO ([facility]) Stephon Cullen MD: 43277 [address], [place] [address], Ph. [phone] Attender: Stephon VILLARREAL - [facility] 09/08/2020 12:00:00 AM EST ROLANDO ([facility]) Stephon Cullen MD: 63609 [address], [address], [place] [address], Ph. [phone] Attender: Stephon Cullen MD [place] - [facility] 09/08/2020 12:00:00 AM EST ROLANDO ([facility]) Stephon Cullen MD: 61637 [address], [address], [place] [address], Ph. [phone] Attender: Stephon Cullen MD [place] - [facility] 09/08/2020 12:00:00 AM EST ROLANDO ([facility]) Stephon Cullen MD: 34474 [address], [place] [address], Ph. [phone] Attender: Stephon Cullen MD [place] - [facility] 09/08/2020 12:00:00 AM EST ROLANDO ([facility]) Stephon Cullen MD: 43684 [address], [address], [place] [address], Ph. [phone] Attender: Stephon Cullen MD [place] - [facility] 09/08/2020 12:00:00 AM EST [place] ([facility]) Stephon Cullen MD: 25729 [address], [address], [place] [address], Ph. [phone] Attender: Stephon Cullen MD [place] - [facility] 09/08/2020 12:00:00 AM EST ROLANDO ([facility]) Stephon Cullen MD: 53461 [address], [place] [address], Ph. [phone] Attender: Stephon Cullen MD [place] - [facility] 09/08/2020 12:00:00 AM EST ROLANDO ([facility]) Stephon Cullen MD: 96093 [address], [address], [place] [address], Ph. [phone] Attender: Stephon Cullen MD [place] - [facility] 09/08/2020 12:00:00 AM EST ROLANDO ([facility]) Stephon Cullen MD: 45789 [address], [address], [place] [address], Ph. [phone] Attender: Stephon Cullen MD [place] - [facility] 09/08/2020 12:00:00 AM EST ROLANDO ([facility]) Stephon Cullen MD: 28612 [address], [address], [place] [address], Ph. Attender: Stephon Cullen MD [place] - [facility] 08/18/2020 12:00:00 AM EST ROLANDO ([facility]) Stephon Cullen MD: 73109 [address], [address], [place] [address], Ph. Attender: Stephon VILLARREAL - [facility] 08/18/2020 12:00:00 AM EST ROLANDO ([facility]) Stephon Cullen MD: 36856 [address], [address], [place] [address], Ph. Attender: Stephon Cullen MD [place] - [facility] 08/18/2020 12:00:00 AM EST ROLANDO ([facility]) Stephon Cullen MD: 49337 [address], [address], [place] [address], Ph. Attender: Stephon VILLARREAL - [facility] 08/18/2020 12:00:00 AM EST ROL[place]O ([facility]) Stephon Cullen MD: 26116 [address], [address], [place] [address], Ph. Attender: Stephon Cullen MD [place] - [facility] 08/18/2020 12:00:00 AM EST ROLANDO ([facility]) Stephon Cullen MD: 73191 [address], [address], [place] [address], Ph. Attender: Stephon VILLARREAL - [facility] 08/18/2020 12:00:00 AM EST ROLANDO ([facility]) Stephon Culeln MD: 75830 [address], [address], [place] [address], Ph. Attender: Stephon VILLARREAL - [facility] 08/18/2020 12:00:00 AM EST ROL[place]O ([facility]) Stephon Cullen MD: 66057 [address], [address], [place] [address], Ph. Attender: Stephon VILLARREAL - [facility] 08/18/2020 12:00:00 AM EST ROL[place]O ([facility]) Stephon Cullen MD: 39035 [address], [address], [place] [address], Ph. Attender: Stephon VILLARREAL - [facility] 08/18/2020 12:00:00 AM EST ROL[place]O ([facility]) Stephon Cullen MD: 64882 [address], [address], [place] [address], Ph. Attender: Stephon VILLARREAL - [facility] 08/18/2020 12:00:00 AM EST [place] ([facility]) Stephon Cullen MD: 58620 [address], [address], [place] [address], Ph. Attender: Stephon Cullen MD [place] - [facility] 08/18/2020 12:00:00 AM EST R[place] ([facility]) Stephon Cullen MD: 93346 [address], [place] [address], Ph. Attender: Stephon Cullen MD [place] - [facility] 08/18/2020 12:00:00 AM EST R[place] ([facility]) Stephon Cullen MD: 69838 [address], [address], [place] [address], Ph. Attender: Stephon VILLARREAL - [facility] 08/18/2020 12:00:00 AM EST ROL[place]O ([facility]) Stephon Cullen MD: 23579 [address], [place] [address], Ph. [phone] Attender: Stephon Cullen MD [place] - [facility] 08/13/2020 12:00:00 AM EST R[place] ([facility]) Stephon Cullen MD: 36208 [address], [address], [place] [address], Ph. [phone] Attender: Stephon Cullen MD [place] - [facility] 08/13/2020 12:00:00 AM EST R[place]O ([facility]) Stephon Cullen MD: 46060 [address], [place] [address], Ph. [phone] Attender: Stephon VILLARREAL - [facility] 08/13/2020 12:00:00 AM EST ROL[place]O ([facility]) Stephon Cullen MD: 70629 [address], [place] [address], Ph. [phone] Attender: Stephon Cullen MD [place] - [facility] 08/13/2020 12:00:00 AM EST R[place] ([facility]) Stephon Cullen MD: 85298 [address], [address], [place] [address], Ph. [phone] Attender: Stephon Cullen MD [place] - [facility] 08/13/2020 12:00:00 AM EST [place] ([facility]) Stephon Cullen MD: 41015 [address], [address], [place] [address], Ph. [phone] Attender: Stephon Cullen MD [place] - [facility] 08/13/2020 12:00:00 AM EST [place] ([facility]) Stephon Cullen MD: 89184 [address], [address], [place] [address], Ph. [phone] Attender: Stephon VILLARREAL - [facility] 08/13/2020 12:00:00 AM EST [place] ([facility]) Stephon Cullen MD: 19364 [address], [address], [place] [address], Ph. [phone] Attender: Stephon Cullen MD [place] - [facility] 08/13/2020 12:00:00 AM EST [place] ([facility]) Stephon Cullen MD: 39248 [address], [place] [address], Ph. [phone] Attender: Stephon Cullen MD [place] - [facility] 08/13/2020 12:00:00 AM EST [place] ([facility]) Stephon Cullen MD: 16701 [address], [address], [place] [address], Ph. [phone] Attender: Stephon Cullen MD [place] - [facility] 08/13/2020 12:00:00 AM EST [place] ([facility]) Stephon Cullen MD: 41978 [address], [address], [place] [address], Ph. [phone] Attender: Stephon Cullen MD [place] - [facility] 08/13/2020 12:00:00 AM EST [place] ([facility]) Stephon Cullen MD: 45409 [address], [place] [address], Ph. [phone] Attender: Stephon Cullen MD [place] - [facility] 08/13/2020 12:00:00 AM EST [place] ([facility]) Stephon Cullen MD: 04756 [address], [place] [address], Ph. [phone] Attender: Stephon Cullen MD [place] - [facility] 08/13/2020 12:00:00 AM EST [place] ([facility]) Stephon Cullen MD: 15257 [address], [place] [address], Ph. [phone] Attender: Stephon Cullen MD [place] - [facility] 08/13/2020 12:00:00 AM EST [place] ([facility]) Nyla Boland, WIRE FRAME LAMP SHADE MAKER: 40474 [address], [facility] [place] [address], Ph. Attender: Nyla Boland [facility] 08/06/2020 12:00:00 AM EST ATHE NA ([facility]) Nyla Boland, WIRE FRAME LAMP SHADE MAKER: 61620 [address], [place] [address], Ph. Attender: Nyla Boland [facility] - [facility] 08/06/2020 12:00:00 AM EST ATHE NA ([facility]) Nyla Boland, WIRE FRAME LAMP SHADE MAKER: 47417 [address], [place] [address], Ph. Attender: Nyla Boland [facility] - [facility] 08/06/2020 12:00:00 AM EST ATHE NA ([facility]) Nyla Boland, WIRE FRAME L[employer] SHADE MAKER: 72315 [address], [place] [address], Ph. Attender: Nyla Boland [facility] - [facility] 08/06/2020 12:00:00 AM EST ATHE NA ([facility]) Nyla Boland, WIRE [employer]AME L[employer] SHADE MAKER: 91175 [address], [place] [address], Ph. Attender: Nyla Boland [facility] - [facility] 08/06/2020 12:00:00 AM EST ATHE NA ([facility]) Nyla Boland, WIRE FRAME L[employer] SHADE MAKER: 46942 [address], [place] [address], Ph. Attender: Nyla Boland [facility] - [facility] 08/06/2020 12:00:00 AM EST ATHE NA ([facility]) Nyla Boland, WIRE [employer]AME L[employer] SHADE MAKER: 35969 [address], [place] [address], Ph. Attender: Nyla Boland [facility] - [facility] 08/06/2020 12:00:00 AM EST ATHE NA ([facility]) Nyla Boland, WIRE FRAME L[employer] SHADE MAKER: 02832 [address], [place] [address], Ph. Attender: Nyla Boland [facility] - [facility] 08/06/2020 12:00:00 AM EST ATHE NA (Pain [facility]) Nyla Boland, WIRE FRAME L[employer] SHADE MAKER: [address], [address], [place] [address], Ph. Attender: Nyla Boland [facility] - [facility] 08/06/2020 12:00:00 AM EST ATHE NA ([facility]) Nyla Boland, WIRE FRAME L[employer] SHADE MAKER: [address], [address], [place] [address], Ph. Attender: Nyla Boland [facility] - [facility] 08/06/2020 12:00:00 AM EST ATHE NA ([facility]) Nyla Boland, WIRE [employer] SHADE MAKER: [address], [place] [address], Ph. Attender: Nyla Boland [facility] - [facility] 08/06/2020 12:00:00 AM EST ATHE NA ([facility]) Nyla Boland, WIRE [employer] L[employer] SHADE MAKER: [address], [place] [address], Ph. Attender: Nyla Boalnd [facility] - [facility] 08/06/2020 12:00:00 AM EST ATHE NA ([facility]) Nyla Boland, W[employer] SHADE MAKER: [address], [address], [place] [address], Ph. Attender: Nyla Boland [facility] - [facility] 08/06/2020 12:00:00 AM EST ATHE NA ([facility]) Nyla Boland, W[employer] SHADE MAKER: [address], [place] [address], Ph. Attender: Nylaavi Perlajose [facility] - [facility] 08/06/2020 12:00:00 AM EST ATHE NA ([facility]) Nyla Boland, W[employer] SHADE MAKER: [address], [place] [address], Ph. Attender: Nyla Boland [facility] - [facility] 08/06/2020 12:00:00 AM EST ATHE NA ([facility]) Outpatient Attender: Carmen SOTELO [facility] 07/22/2020 08:00:00 AM EST MEDENT ([facility] raymundo, ) Nyla Boland, WIRE [employer] L[employer] SHADE MAKER: [address], [place] [address], Ph. Attender: Nyla Boland [facility] 07/03/2020 12:00:00 AM EDT ATHE NA ([facility]) Nyla Boland, WIRE [employer] L[employer] SHADE MAKER: [address], [place] [address], Ph. Attender: Nyla Boland [facility] 07/03/2020 12:00:00 AM EDT ATHE NA ([facility]) Nyla Boland, WIRE [employer] L[employer] SHADE MAKER: [address], [place] [address], Ph. Attender: Nyla Boland [facility] - [facility] 07/03/2020 12:00:00 AM EDT ATHE NA ([facility]) Nyla Boland, WIRE [employer] L[employer] SHADE MAKER: [address], [place] [address], Ph. Attender: Nyla Boland [facility] 07/03/2020 12:00:00 AM EDT ATHE NA ([facility]) Nyla Boland, W[employer] L[employer] SHADE MAKER: [address], [address], [place] [address], Ph. Attender: Nyla Boland [facility] 07/03/2020 12:00:00 AM EDT ATHE NA ([facility]) Nyla Boland, W[employer] L[employer] SHADE MAKER: [address], [address], [place] [address], Ph. Attender: Nyla Boland [facility] 07/03/2020 12:00:00 AM EDT ATHE NA ([facility]) Nyla Boland, WIRE [employer] L[employer] SHADE MAKER: [address], [place] [address], Ph. Attender: Nyla Boland [facility] 07/03/2020 12:00:00 AM EDT ATHE NA ([facility]) Nyla Boland, WIRE [employer] L[employer] SHADE MAKER: [address], [place] [address], Ph. Attender: Nyla Boland [facility] 07/03/2020 12:00:00 AM EDT ATHE NA ([facility]) Nyla Boland, WIRE [employer]AME L[employer] SHADE MAKER: [address], [address], [place] [address], Ph. Attender: Nyla Perlajose [facility] 07/03/2020 12:00:00 AM EDT ATHE NA ([facility]) Nyla Boland, WIRE [employer]AME L[employer] SHADE MAKER: [address], [address], [place] [address], Ph. Attender: Nyla Boland [facility] - [facility] 07/03/2020 12:00:00 AM EDT ATHE NA ([facility]) Nyla Boland, WIRE [employer]AME L[employer] SHADE MAKER: [address], [place] [address], Ph. Attender: Nyla Boland [facility] - [facility] 07/03/2020 12:00:00 AM EDT ATHE NA ([facility]) Nyla Boland, WIRE [employer]AME L[employer] SHADE MAKER: [address], [place] [address], Ph. Attender: Nyla Boland [facility] - [facility] 07/03/2020 12:00:00 AM EDT ATHE NA ([facility]) Nyla Boland, WIRE [employer]AME L[employer] SHADE MAKER: [address], [place] [address], Ph. Attender: Nyla Boland [facility] - [facility] 07/03/2020 12:00:00 AM EDT ATHE NA ([facility]) Nyla Boland, WIRE [employer] L[employer] SHADE MAKER: [address], [place] [address], Ph. Attender: Nyla Boland [facility] - [facility] 07/03/2020 12:00:00 AM EDT ATHE NA ([facility]) Nyla Boland, WIRE [employer]AME L[employer] SHADE MAKER: [address], [place] [address], Ph. Attender: Nyla Boland [facility] - [facility] 07/03/2020 12:00:00 AM EDT ATHE NA ([facility]) Nyla Woodson Jackiecolleen, W[employer] L[employer] SHADE MAKER: [address], [address], [place] [address], Ph. Attender: Nyla CASTRO [place] - [facility] 07/03/2020 12:00:00 AM EDT ATHE NA ([facility]) Stephon Cullen MD: [address], [address], [place] [address], Ph. Attender: Stephon Cullen MD [place] - [facility] 06/20/2020 12:00:00 AM EDT ROLANDO ([facility]) Stephon Cullen MD: [address]324 [address], [address], [place] [address], Ph. Attender: Stephon Cullen MD [place] - [facility] 06/20/2020 12:00:00 AM EDT ROLANDO ([facility]) Stephon Cullen MD: [address]474 [address], [address], [place] [address], Ph. Attender: Stephon Cullen MD [place] - [facility] 06/20/2020 12:00:00 AM EDT ROLANDO ([facility]) Stephon Cullen MD: [address]55 [address], [place] [address], Ph. Attender: Stephon Cullen MD [place] - [facility] 06/20/2020 12:00:00 AM EDT ROLANDO ([facility]) Stephon Cullen MD: [address]14 [address], [address], [place] [address], Ph. Attender: Stephon Cullen MD [place] - [facility] 06/20/2020 12:00:00 AM EDT ROLANDO ([facility]) Stephon Cullen MD: 58829 [address], [address], [place] [address], Ph. Attender: Stephon Cullen MD [place] - [facility] 06/20/2020 12:00:00 AM EDT ROLANDO ([facility]) Stephon Cullen MD: [address]60 [address], [address], [place] [address], Ph. Attender: Stephon Cullen MD [place] - [facility] 06/20/2020 12:00:00 AM EDT ROLANDO ([facility]) Stephon Cullen MD: [address]25 [address], [address], [place] [address], Ph. Attender: Stephon Cullen MD [place] - [facility] 06/20/2020 12:00:00 AM EDT ROLANDO ([facility]) Stephon Cullen MD: 24807 [address], [address], [place] [address], Ph. Attender: Stephon VILLARREAL - [facility] 06/20/2020 12:00:00 AM EDT ROLANDO ([facility]) Stephon Cullen MD: 24776 [address], [address], [place] [address], Ph. Attender: Stephon VILLARREAL - [facility] 06/20/2020 12:00:00 AM EDT ROLANDO ([facility]) Stephon Cullen MD: 00387 [address], [address], [place] [address], Ph. Attender: Stephon VILLARREAL - [facility] 06/20/2020 12:00:00 AM EDT ROLANDO ([facility]) Stephon Cullen MD: 15756 [address], [address], [place] [address], Ph. Attender: Stephon Cullen MD [place] - [facility] 06/20/2020 12:00:00 AM EDT ROLANDO ([facility]) Stephon Cullen MD: 81277 [address], [address], [place] [address], Ph. Attender: Stephon Cullen MD [place] - [facility] 06/20/2020 12:00:00 AM EDT ROLANDO ([facility]) Stephon Cullen MD: 06486 [address], [address], [place] [address], Ph. Attender: Stephon Cullen MD [place] - [facility] 06/20/2020 12:00:00 AM EDT ROLANDO ([facility]) Stephon Cullen MD: [address]3828 [address], [address], [place] [address], Ph. Attender: Stephon Cullen MD [place] - [facility] 06/20/2020 12:00:00 AM EDT ROLANDO ([facility]) Stephon Cullen MD: 89718 [address], [address], [place] [address], Ph. Attender: Stephon VILLARREAL - [facility] 06/20/2020 12:00:00 AM EDT ROLANDO ([facility]) Stephon Cullen MD: 28298 [address], [address], [place] [address], Ph. Attender: Stephon VILLARREAL - [facility] 06/20/2020 12:00:00 AM EDT ROLANDO ([facility]) Stephon Cullen MD: 56698 [address], [address], [place] [address], Ph. [phone] Attender: Stephon Cullen MD [place] - [facility] 06/16/2020 12:00:00 AM EDT ROLANDO ([facility]) Stephon Cullen MD: 11262 [address], [address], [place] [address], Ph. [phone] Attender: Stephon VILLARREAL - [facility] 06/16/2020 12:00:00 AM EDT ROLANDO ([facility]) Stephon Cullen MD: 88114 [address], [address], [place] [address], Ph. [phone] Attender: Stephon Cullen MD [place] - [facility] 06/16/2020 12:00:00 AM EDT ROLANDO ([facility]) Stephon Cullen MD: [address]9219 [address], [address], [place] [address], Ph. [phone] Attender: Stephon Cullen MD [place] - [facility] 06/16/2020 12:00:00 AM EDT ROLANDO ([facility]) Stephon Cullen MD: 37753 [address], [address], [place] [address], Ph. [phone] Attender: Stephon VILLARREAL - [facility] 06/16/2020 12:00:00 AM EDT ROLANDO ([facility]) Stephon Cullen MD: 31367 [address], [address], [place] [address], Ph. [phone] Attender: Stephon VILLARREAL - [facility] 06/16/2020 12:00:00 AM EDT ROLANDO ([facility]) Stephon Cullen MD: 84252 [address], [address], [place] [address], Ph. [phone] Attender: Stephon Cullen MD [place] - [facility] 06/16/2020 12:00:00 AM EDT ROLANDO ([facility]) Stephon Cullen MD: 01673 [address], [address], [place] [address], Ph. [phone] Attender: Stephon Cullen MD [place] - [facility] 06/16/2020 12:00:00 AM EDT ROLANDO ([facility]) Stephon Cullen MD: 78886 [address], [address], [place] [address], Ph. [phone] Attender: Stephon VILLARREAL - [facility] 06/16/2020 12:00:00 AM EDT ROLANDO ([facility]) Stephon Cullen MD: 34176 [address], [address], [place] [address], Ph. [phone] Attender: Stephon VILLARREAL - [facility] 06/16/2020 12:00:00 AM EDT ROLANDO ([facility]) Stephon Cullen MD: 87867 [address], [address], [place] [address], Ph. [phone] Attender: Stephon Cullen MD [place] - [facility] 06/16/2020 12:00:00 AM EDT ROLANDO ([facility]) Stephon Cullen MD: 24805 [address], [address], [place] [address], Ph. [phone] Attender: Stephon VILLARREAL - [facility] 06/16/2020 12:00:00 AM EDT ROLANDO ([facility]) Stephon Cullen MD: 84738 [address], [address], [place] [address], Ph. [phone] Attender: Stephon VILLARREAL - [facility] 06/16/2020 12:00:00 AM EDT ROLANDO ([facility]) Stephon Cullen MD: 74939 [address], [address], [place] [address], Ph. [phone] Attender: Stephon Cullen MD [place] - [facility] - [facility] 06/16/2020 12:00:00 AM EDT ROLANDO ([facility]) Stephon Cullen MD: 71730 [address], [address], [place] [address], Ph. [phone] Attender: Stephon VILLARREAL - [facility] - [facility] 06/16/2020 12:00:00 AM EDT ROLANDO ([facility]) Stephon Cullen MD: 91608 [address], [address], [place] [address], Ph. [phone] Attender: Stephon VILLARREAL - [facility] - [facility] 06/16/2020 12:00:00 AM EDT ROLANDO ([facility]) Stephon Cullen MD: 06114 [address], [address], [place] [address], Ph. [phone] Attender: Stephon VILLARREAL - [facility] - [facility] 06/16/2020 12:00:00 AM EDT ROLANDO ([facility]) Stephon Cullen MD: 92730 [address], [address], [place] [address], Ph. [phone] Attender: Stephon VILLARREAL - [facility] - [facility] 06/16/2020 12:00:00 AM EDT ROLANDO ([facility]) Outpatient Attender: Deborah jaquez 06/09/2020 04:35:00 PM EDT MEDENT ([facility] Stephon Cullen MD: 71972 [address], [address], [place] [address], Ph. Attender: Stephon VILLARREAL - [facility] 06/06/2020 12:00:00 AM EDT ROLANDO ([facility]) Stephon Cullen MD: 54537 [address], [address], [place] [address], Ph. Attender: Stephon VILLARREAL - [facility] 06/06/2020 12:00:00 AM EDT ROLANDO ([facility]) Stephon Cullen MD: 96033 [address], [address], [place] [address], Ph. Attender: Stephon VILLARREAL - [facility] 06/06/2020 12:00:00 AM EDT ROLANDO ([facility]) Stephon Cullen MD: 46491 [address], [address], [place] [address], Ph. Attender: Stephon VILLARREAL - [facility] 06/06/2020 12:00:00 AM EDT ROLANDO ([facility]) Stephon Cullen MD: 46867 [address], [address], [place] [address], Ph. Attender: Stephon VILLARREAL - [facility] 06/06/2020 12:00:00 AM EDT ROLANDO ([facility]) Stephon Cullen MD: 65681 [address], [address], [place] [address], Ph. Attender: Stephon VILLARREAL - [facility] 06/06/2020 12:00:00 AM EDT ROLANDO ([facility]) Stephon Cullen MD: 03536 [address], [address], [place] [address], Ph. Attender: Stephon VILLARREAL - [facility] 06/06/2020 12:00:00 AM EDT ROLANDO ([facility]) Stephon Cullen MD: 78368 [address], [address], [place] [address], Ph. Attender: Stephon VILLARREAL - [facility] 06/06/2020 12:00:00 AM EDT ROLANDO ([facility]) Stephon Cullen MD: 08549 [address], [address], [place] [address], Ph. Attender: Stephon VILLARREAL - [facility] 06/06/2020 12:00:00 AM EDT ROLANDO ([facility]) Stephon Cullen MD: 64867 [address], [address], [place] [address], Ph. Attender: Stephon VILLARREAL - [facility] 06/06/2020 12:00:00 AM EDT ROLANDO ([facility]) Stephon Cullen MD: 54281 [address], [address], [place] [address], Ph. Attender: Stephon VILLARREAL - [facility] 06/06/2020 12:00:00 AM EDT ROLANDO ([facility]) Stephon Cullen MD: 92392 [address], [address], [place] [address], Ph. Attender: Stephon VILLARREAL - [facility] 06/06/2020 12:00:00 AM EDT ROLANDO ([facility]) Stephon Cullen MD: 15665 [address], [address], [place] [address], Ph. Attender: Stephon VILLARREAL - [facility] 06/06/2020 12:00:00 AM EDT ROLANDO ([facility]) Stephon Cullen MD: 74868 [address], [address], [place] [address], Ph. Attender: Stephon VILLARREAL - [facility] 06/06/2020 12:00:00 AM EDT ROLANDO ([facility]) Stephon Cullen MD: 45635 [address], [address], [place] [address], Ph. Attender: Stephon VILLARREAL - [facility] 06/06/2020 12:00:00 AM EDT ROLANDO ([facility]) Stephon Cullen MD: 56173 [address], [address], [place] [address], Ph. Attender: Stephon VILLARREAL - [facility] 06/06/2020 12:00:00 AM EDT ROLANDO ([facility]) Stephon Cullen MD: 02426 [address], [address], [place] [address], Ph. Attender: Stephon VILLARREAL - [facility] 06/06/2020 12:00:00 AM EDT ROLANDO ([facility]) Stephon Cullen MD: 96353 [address], [address], [place] [address], Ph. Attender: Stephon VILLARREAL - [facility] 06/06/2020 12:00:00 AM EDT ROLANDO ([facility]) Stephon Cullen MD: 86282 [address], [address], [place] [address], Ph. Attender: Stephon VILLARREAL - [facility] 06/06/2020 12:00:00 AM EDT ROLANDO ([facility]) Stephon Cullen MD: 31830 [address], [address], [place] [address], Ph. [phone] Attender: Stephon Cullen MD [place] - [facility] 06/02/2020 12:00:00 AM EDT ROLANDO ([facility]) Stephon Cullen MD: 36777 [address], [address], [place] [address], Ph. [phone] Attender: Stephon VILLARREAL - [facility] 06/02/2020 12:00:00 AM EDT ROLANDO ([facility]) Stephon Cullen MD: 11634 [address], [address], [place] [address], Ph. [phone] Attender: Stephon VILLARREAL - [facility] 06/02/2020 12:00:00 AM EDT ROLANDO ([facility]) Stephon Cullen MD: 19176 [address], [address], [place] [address], Ph. [phone] Attender: Stephon Cullen MD [place] - [facility] 06/02/2020 12:00:00 AM EDT ROLANDO ([facility]) Stephon Cullen MD: 59481 [address], [address], [place] [address], Ph. [phone] Attender: Stephon Cullen MD [place] - [facility] 06/02/2020 12:00:00 AM EDT ROLANDO ([facility]) Stephon Cullen MD: 38470 [address], [address], [place] [address], Ph. [phone] Attender: Stephon VILLARREAL - [facility] 06/02/2020 12:00:00 AM EDT ROLANDO ([facility]) Stephon Cullen MD: 29979 [address], [address], [place] [address], Ph. [phone] Attender: Stephon Cullen MD [place] - [facility] 06/02/2020 12:00:00 AM EDT ROLANDO ([facility]) Stephon Cullen MD: 85082 [address], [address], [place] [address], Ph. [phone] Attender: Stephon Cullen MD [place] - [facility] 06/02/2020 12:00:00 AM EDT [facility] ([facility]) Stephon Cullen MD: [id number], [address], [place] [address], Ph. [phone] Attender: Stephon Cullen MD [place] - [facility] 06/02/2020 12:00:00 AM EDT [facility] ([facility]) Stephon Cullen MD: [id number], [address], [place] [address], Ph. [phone] Attender: Stephon Cullen MD [place] - [facility] 06/02/2020 12:00:00 AM EDT [facility] ([facility]) Stephon Cullen MD: [id number], [address], [place] [address], Ph. [phone] Attender: Stephon Cullen MD [place] - [facility] 06/02/2020 12:00:00 AM EDT [facility] ([facility]) Stephon Cullen MD: [id number], [address], [place] [address], Ph. [phone] Attender: Stephon Cullen MD [place] - [facility] 06/02/2020 12:00:00 AM EDT [facility] ([facility]) Stephon Cullen MD: [address], [address], [place] [address], Ph. [phone] Attender: Stephon VILLARREAL - [facility] 06/02/2020 12:00:00 AM EDT [facility] ([facility]) Stephon Cullen MD: [id number], [address], [place] [address], Ph. [phone] Attender: Stephon VILLARREAL - [facility] 06/02/2020 12:00:00 AM EDT [facility] ([facility]) Stephon Cullen MD: [address], [address], [place] [address], Ph. [phone] Attender: Stephon VILLARREAL - [facility] 06/02/2020 12:00:00 AM EDT [facility] ([facility]) Stephon Cullen MD: [address], [address], [place] [address], Ph. [phone] Attender: Stephon VILLARREAL - [facility] 06/02/2020 12:00:00 AM EDT [facility] ([facility]) Stephon Cullen MD: [id number], [address], [place] [address], Ph. [phone] Attender: Stephon VILLARREAL - [facility] 06/02/2020 12:00:00 AM EDT [facility] ([facility]) Stephon Cullen MD: [address], [address], [place] [address], Ph. [phone] Attender: Stephon VILLARREAL - [facility] 06/02/2020 12:00:00 AM EDT [facility] ([facility]) Stephon Cullen MD: [address], [address], [place] [address], Ph. [phone] Attender: Stephon VILLARREAL - [facility] [place] [facility] 06/02/2020 12:00:00 AM EDT [facility] ([facility]) Stephon Cullen MD: [address] [address], [place] [address], Ph. [phone] Attender: Stpehon Cullen MD [place] - [facility] 06/02/2020 12:00:00 AM EDT [facility] ([facility]) Immunizations Vaccine Date Status Description Data Source(s) COVID-19 VACCINE Jae 02/23/2021 12:00:00 AM EDT completed [place] Vaccine Series Complete: YESThis Data wa s Submitted to [facility]. Medications Medication Brand Name Start Date Product [...] 02/20/2021 12:00:00 AM EDT act shania [facility] ([facility] ) Ondansetron 4 MG Disintegrating Oral [...] Ondansetron 11/07/2020 12:00:00 AM EST active [facility] ([facility], [facility]) 225 mg/1.5 mL 11/05/2020 12:00:00 AM EST [...] 12.7mm 09/10/2020 12:00:00 AM EST active [facility] ([facility]) Tresiba Flextouch Tresiba Flextouch 08/21/2020 12:00:00 AM EST active [facility] ([facility]) Tresiba Flextouch Tresiba Flextouch 08/20/2020 12:00:00 AM EST completed [facility] ([facility]) 40 mg 08/19/2020 12:00:00 AM EST tablet 30 TAKE ONE TABLET BY MOUTH EVERY DAY TAKE ONE TABLET BY MOUTH EVERY DAY SOLD: 08/23/2020 [facility] Ondansetron 4 MG Oral Tablet Ondansetron HCL 06/09/2020 12:00:00 AM E DT ORAL completed [facility] ([facility], [facility]) Dicyclomine Hydrochloride 10 MG Oral Capsule Dicyclomine HCL 06/09/2020 12:00:00 AM EDT ORAL completed [facility] ([facility], [facility]) 4 mg 06/09/2020 12:00:00 AM EDT tablet [...] 30 MG Oral Tablet [facility] ([facility]) Acetaminophen 300 MG / Codeine Phosphate 30 MG Oral Tablet acetaminophen 300 mg- codeine 30 mg tablet as needed acetaminophen 300 mg-codeine 30 mg table t as needed 04/03/2019 12:00:00 AM EDT completed acetaminophen 300 MG / codeine phosphate 30 MG Oral Tablet [facility] ([facility]) Acetaminophen 300 MG / Codeine Phosphate 30 MG Oral Tablet acetaminophen 300 mg- codeine 30 mg tablet as needed acetaminophen 300 mg-codeine 30 mg table t as needed 04/03/2019 12:00:00 AM EDT completed acetaminophen 300 MG / codeine phosphate 30 MG Oral Tablet [facility] ([facility]) Acetaminophen 300 MG / Codeine Phosphate 30 MG Oral Tablet acetaminophen 300 mg- codeine 30 mg tablet as needed acetaminophen 300 mg-codeine 30 mg table t as needed 04/03/2019 12:00:00 AM EDT completed acetaminophen 300 MG / codeine phosphate 30 MG Oral Tablet [facility] ([facility]) Acetaminophen 300 MG / Codeine Phosphate 30 MG Oral Tablet acetaminophen 300 mg- codeine 30 mg tablet as needed acetaminophen 300 mg-codeine 30 mg table t as needed 04/03/2019 12:00:00 AM EDT completed acetaminophen 300 MG / codeine phosphate 30 MG Oral Tablet [facility] ([facility]) Acetaminophen 300 MG / Codeine Phosphate 30 MG Oral Tablet acetaminophen 300 mg- codeine 30 mg tablet as needed acetaminophen 300 mg-codeine 30 mg table t as needed 04/03/2019 12:00:00 AM EDT completed acetaminophen 300 MG / codeine phosphate 30 MG Oral Tablet [facility] ([facility]) Acetaminophen 300 MG / Codeine Phosphate 30 MG Oral Tablet acetaminophen 300 mg- codeine 30 mg tablet as needed acetaminophen 300 mg-codeine 30 mg table t as needed 04/03/2019 12:00:00 AM EDT completed acetaminophen 300 MG / codeine phosphate 30 MG Oral Tablet [facility] ([facility]) Acetaminophen 300 MG / Codeine Phosphate 30 MG Oral Tablet acetaminophen 300 mg- codeine 30 mg tablet as needed acetaminophen 300 mg-codeine 30 mg table t as needed 04/03/2019 12:00:00 AM EDT completed acetaminophen 300 MG / codeine phosphate 30 MG Oral Tablet [facility] ([facility]) Acetaminophen 300 MG / Codeine Phosphate 30 MG Oral Tablet acetaminophen 300 mg- codeine 30 mg tablet as needed acetaminophen 300 mg-codeine 30 mg table t as needed 04/03/2019 12:00:00 AM EDT completed acetaminophen 300 MG / codeine phosphate 30 MG Oral Tablet [facility] ([facility]) Ondansetron 4 MG Disintegrating Oral Tab let ondansetron [address] ONE TABLET BY MOUTH THREE TIMES A DAY FOR 7 DAYS ondansetron [address] ONE TABLET BY MOUTH THREE TIMES A DAY FOR 7 DAYS completed ondansetron 4 MG Disintegrating Oral Tablet [facility] ([facility]) Ondansetron 4 MG Oral Tablet ondansetron HCl 4 mg tabl et ondansetron HCl 4 mg tablet completed ondansetron 4 M G Oral Tablet [facility] ([facility]) Acetaminophen 325 MG / Hydrocodone Juanita trate 7.5 MG Oral Tablet hydrocodone 7.5 mg-acetaminophen 325 mg tablet hydrocodone 7.5 mg-acetaminophen 325 mg tablet completed acetaminophen 325 MG / hydrocodone bitartrate 7.5 MG Oral Tablet [facility] ([facility]) Acetaminophen 325 MG / Hydrocodone Juanita trate 5 MG Oral Tablet hydrocodone 5 mg- acetaminophen 325 mg tablet as needed hydrocodone 5 mg-acetaminophen 325 mg tablet as needed completed acetaminophen 325 MG / hydrocodone bitartrate 5 MG Oral Tablet [facility] ([facility]) Fluzone Quad [id number] (PF) 60 mcg (15 m cg x 4)/0.5 mL IM syringe INJECT INTRAMUSCULARLY IN THE LEFT ARM [id number] compl eted 0.5 ML influenza A virus A/ (H1N1) antigen 0.03 MG/ML / influenza A virus A/ (H3N2) antigen 0.03 MG/ML / influenza B virus B/[place] antigen 0.03 MG/ML / influenza B virus B/[facility] antigen 0.03 MG/ML Prefilled Syringe [Fluzone Quadrivalent ] [facility] ([facility]) Simvastatin 20 MG Oral Tablet simvastatin 20 mg tablet one by mouth once daily simvastatin 20 mg tablet one by mouth once daily completed simvastatin 20 MG Oral Tablet [facility] ([facility]) Divalproex Sodium 500 MG Delayed Release Oral Tablet divalproex 500 mg tablet,delayed release divalproex 500 mg tablet,delayed release completed divalproex sodium 500 MG Delayed Release Oral Tablet [facility] ([facility]) Divalproex Sodium 250 MG Delayed Release Oral Tablet divalproex 250 mg tablet,delayed release divalproex 250 mg tablet,delayed release completed divalproex sodium 250 MG Delayed Release Oral Tablet [facility] ([facility]) Ondansetron 4 MG Disintegrating Oral Tab let ondansetron 4 mg disintegrating tablet ondansetron 4 mg disintegrating tablet completed ondansetron 4 MG Disintegrating Oral Tablet [facility] ([facility]) Acetaminophen 325 MG / Hydrocodone Juanita trate 7.5 MG Oral Tablet hydrocodone 7.5 mg-acetaminophen 325 mg tablet hydrocodone 7.5 mg-acetaminophen 325 mg tablet completed acetaminophen 325 MG / hydrocodone bitartrate 7.5 MG Oral Tablet [facility] ([facility]) doxycycline hyclate 100 MG Oral Tablet doxycycline hyc late 100 mg tablet doxycycline hyclate 100 mg tablet comp leted doxycycline hyclate 100 MG Oral Tablet [facility] ([facility]) Sumatriptan 25 MG Oral Tablet sumatriptan 25 mg tablet sumat riptan 25 mg tablet completed sumatriptan 25 MG Oral Tablet [facility] ([facility]) Amoxicillin 875 MG / Clavulanate 125 MG Oral Tablet amoxicillin 875 mg-potassium clavulanate 125 mg tablet amoxicillin 875 mg-potassium clavulanate 125 mg tablet completed amoxicillin 875 MG / clavulanate 125 MG Oral Tablet [facility] ([facility]) Ondansetron 8 MG Disintegrating Oral Tab let ondansetron 8 mg disintegrating tablet ondansetron 8 mg disintegrating tablet completed ondansetron 8 MG Disintegrating Oral Tablet [facility] ([facility]) carvedilol 3.125 MG Oral Tablet carvedilol 3.125 mg ta blet carvedilol 3.125 mg tablet completed carvedilol 3.12 5 MG Oral Tablet [facility] ([facility]) Amoxicillin 875 MG / Clavulanate 125 MG Oral Tablet amoxicillin 875 mg-potassium clavulanate 125 mg tablet amoxicillin 875 mg-potassium clavulanate 125 mg tablet completed amoxicillin 875 MG / clavulanate 125 MG Oral Tablet [facility] ([facility]) duloxetine 30 MG Delayed Release Oral Ca psule duloxetine 30 mg capsule,delayed release TAKE ONE CAPSULE BY MOUTH EVERY DAY duloxetine 30 mg capsule,delayed release TAKE ONE CAPSULE BY MOUTH EVERY DAY completed duloxetine 30 MG Delayed Release Oral Capsule [facility] ([facility]) Acetaminophen 325 MG / Hydrocodone Juanita trate 7.5 MG Oral Tablet hydrocodone 7.5 mg-acetaminophen 325 mg tablet hydrocodone 7.5 mg-acetaminophen 325 mg tablet completed acetaminophen 325 MG / hydrocodone bitartrate 7.5 MG Oral Tablet [facility] ([facility]) 0.5 ML pneumococcal capsular polysacchar triston type [...] Prefilled Syringe [Pneumovax 23] [facility] ([facility]) Naproxen 250 MG Oral Tablet naproxen 250 mg tablet as needed naproxen 250 mg tablet as needed completed napro xen 250 MG Oral Tablet [facility] ([facility]) Naproxen 250 MG Oral Tablet naproxen 250 mg tablet as needed naproxen 250 mg tablet as needed completed napro xen 250 MG Oral Tablet [facility] ([facility]) duloxetine 30 MG Delayed Release Oral Ca psule duloxetine 30 mg capsule,delayed release TAKE ONE CAPSULE BY MOUTH EVERY DAY duloxetine 30 mg capsule,delayed release TAKE ONE CAPSULE BY MOUTH EVERY DAY completed duloxetine 30 MG Delayed Release Oral Capsule [facility] ([facility]) Ondansetron 8 MG Disintegrating Oral Tab let ondansetron 8 mg disintegrating tablet ondansetron 8 mg disintegrating tablet completed ondansetron 8 MG Disintegrating Oral Tablet [facility] ([facility]) Acetaminophen 325 MG / Hydrocodone Juanita trate 7.5 MG Oral Tablet hydrocodone 7.5 mg-acetaminophen 325 mg tablet hydrocodone 7.5 mg-acetaminophen 325 mg tablet completed acetaminophen 325 MG / hydrocodone bitartrate 7.5 MG Oral Tablet [facility] ([facility]) doxycycline hyclate 100 MG Oral Tablet doxycycline hyc late 100 mg tablet doxycycline hyclate 100 mg tablet comp leted doxycycline hyclate 100 MG Oral Tablet [facility] ([facility]) 0.5 ML pneumococcal capsular polysacchar triston type [...] Prefilled Syringe [Pneumovax 23] [facility] ([facility]) doxycycline hyclate 100 MG Oral Tablet doxycycline hyc late 100 mg tablet doxycycline hyclate 100 mg tablet comp leted doxycycline hyclate 100 MG Oral Tablet [facility] ([facility]) zonisamide 50 MG Oral Capsule zonisamide 50 mg capsule as needed zonisamide 50 mg capsule as needed completed z onisamide 50 MG Oral Capsule [facility] ([facility]) Fluzone Quad [id number] (PF) 60 mcg (15 m cg x 4)/0.5 mL IM syringe INJECT INTRAMUSCULARLY IN THE LEFT ARM [id number] compl eted 0.5 ML influenza A virus A/[place] (H1N1) antigen 0.03 MG/ML / influenza A virus A/ (H3N2) antigen 0.03 MG/ML / influenza B virus B/[place] antigen 0.03 MG/ML / influenza B virus B/[facility] antigen 0.03 MG/ML Prefilled Syringe [Fluzone Quadrivalent ] [facility] ([facility]) Simvastatin 20 MG Oral Tablet simvastatin 20 mg tablet one by mouth once daily simvastatin 20 mg tablet one by mouth once daily completed simvastatin 20 MG Oral Tablet [facility] ([facility]) Divalproex Sodium 500 MG Delayed Release Oral Tablet divalproex 500 mg tablet,delayed release divalproex 500 mg tablet,delayed release completed divalproex sodium 500 MG Delayed Release Oral Tablet [facility] ([facility]) Naproxen 250 MG Oral Tablet naproxen 250 mg tablet as needed naproxen 250 mg tablet as needed completed napro xen 250 MG Oral Tablet [facility] ([facility]) Ondansetron 8 MG Oral Tablet ondansetron HCl 8 mg tabl et ondansetron HCl 8 mg tablet completed ondansetron 8 M G Oral Tablet [facility] ([facility]) Acetaminophen 325 MG / Hydrocodone Juanita trate 5 MG Oral Tablet hydrocodone 5 mg- acetaminophen 325 mg tablet as needed hydrocodone 5 mg-acetaminophen 325 mg tablet as needed completed acetaminophen 325 MG / hydrocodone bitartrate 5 MG Oral Tablet [facility] ([facility]) Ondansetron 8 MG Disintegrating Oral Tab let ondansetron 8 mg disintegrating tablet ondansetron 8 mg disintegrating tablet completed ondansetron 8 MG Disintegrating Oral Tablet [facility] ([facility]) Simvastatin 20 MG Oral Tablet simvastatin 20 mg tablet one by mouth once daily simvastatin 20 mg tablet one by mouth once daily completed simvastatin 20 MG Oral Tablet [facility] ([facility]) Sumatriptan 25 MG Oral Tablet sumatriptan 25 mg tablet sumat riptan 25 mg tablet completed sumatriptan 25 MG Oral Tablet [facility] ([facility]) Acetaminophen 325 MG / Hydrocodone Juanita trate 7.5 MG Oral Tablet hydrocodone 7.5 mg-acetaminophen 325 mg tablet hydrocodone 7.5 mg-acetaminophen 325 mg tablet completed acetaminophen 325 MG / hydrocodone bitartrate 7.5 MG Oral Tablet [facility] ([facility]) Ondansetron 4 MG Disintegrating Oral Tab let ondansetron 4 mg disintegrating tablet ondansetron 4 mg disintegrating tablet completed ondansetron 4 MG Disintegrating Oral Tablet [facility] ([facility]) Simvastatin 20 MG Oral Tablet simvastatin 20 mg tablet one by mouth once daily simvastatin 20 mg tablet one by mouth once daily completed simvastatin 20 MG Oral Tablet [facility] ([facility]) 0.5 ML pneumococcal capsular polysacchar triston type [...] Prefilled Syringe [Pneumovax 23] [facility] ([facility]) Ondansetron 4 MG Disintegrating Oral Tab let ondansetron 4 mg disintegrating tablet ondansetron 4 mg disintegrating tablet completed ondansetron 4 MG Disintegrating Oral Tablet [facility] ([facility]) Acetaminophen 325 MG / Hydrocodone Juanita trate 5 MG Oral Tablet hydrocodone 5 mg- acetaminophen 325 mg tablet as needed hydrocodone 5 mg-acetaminophen 325 mg tablet as needed completed acetaminophen 325 MG / hydrocodone bitartrate 5 MG Oral Tablet [facility] ([facility]) Ondansetron 4 MG Oral Tablet ondansetron HCl 4 mg tabl et ondansetron HCl 4 mg tablet completed ondansetron 4 M G Oral Tablet [facility] ([facility]) Fluzone Quad (PF) 60 mcg (15 m cg x 4)/0.5 mL IM syringe INJECT INTRAMUSCULARLY IN THE LEFT ARM [id number] compl eted 0.5 ML influenza A virus A/[place] (H1N1) antigen 0.03 MG/ML / influenza A virus A/ (H3N2) antigen 0.03 MG/ML / influenza B virus B/ antigen 0.03 MG/ML / influenza B virus B/[facility] antigen 0.03 MG/ML Prefilled Syringe [Fluzone Quadrivalent ] [facility] ([facility]) Flucelvax Quad 60 mcg (15 mcg x 4)/0.5 mL IM suspension [id number] completed influenza A vi jeremías A/[place] (H3N2) antigen 0.03 MG/ML / influenza A virus A//[id number] (H1N1) antigen 0.03 MG/ML / influenza B virus B/[place] antigen 0.03 MG/ML / influenza B virus B/[place]/[id number] antigen 0.03 MG/ML Injectable Suspension [facility] ([facility]) carvedilol 3.125 MG Oral Tablet carvedilol 3.125 mg ta blet carvedilol 3.125 mg tablet completed carvedilol 3.12 5 MG Oral Tablet [facility] ([facility]) Naproxen 250 MG Oral Tablet naproxen 250 mg tablet as needed naproxen 250 mg tablet as needed completed napro xen 250 MG Oral Tablet [facility] ([facility]) Acetaminophen 325 MG / Hydrocodone Juanita trate 5 MG Oral Tablet hydrocodone 5 mg- acetaminophen 325 mg tablet as needed hydrocodone 5 mg-acetaminophen 325 mg tablet as needed completed acetaminophen 325 MG / hydrocodone bitartrate 5 MG Oral Tablet [facility] ([facility]) Amoxicillin 875 MG / Clavulanate 125 MG Oral Tablet amoxicillin 875 mg-potassium clavulanate 125 mg tablet amoxicillin 875 mg-potassium clavulanate 125 mg tablet completed amoxicillin 875 MG / clavulanate 125 MG Oral Tablet [facility] ([facility]) topiramate 50 MG Oral Tablet topiramate 50 mg tablet a s needed topiramate 50 mg tablet as needed completed topir amate 50 MG Oral Tablet [facility] ([facility]) Amoxicillin 875 MG / Clavulanate 125 MG Oral Tablet amoxicillin 875 mg-potassium clavulanate 125 mg tablet amoxicillin 875 mg-potassium clavulanate 125 mg tablet completed amoxicillin 875 MG / clavulanate 125 MG Oral Tablet [facility] ([facility]) Allopurinol 100 MG Oral Tablet allopurinol 100 mg tabl et allopurinol 100 mg tablet completed allopurinol 100 MG Oral Tablet [facility] ([facility]) Allopurinol 100 MG Oral Tablet allopurinol 100 mg tabl et allopurinol 100 mg tablet completed allopurinol 100 MG Oral Tablet [facility] ([facility]) Flucelvax Quad 60 mcg (15 mcg x 4)/0.5 mL intramuscular susp INJECT 0.5ML DIRECTED [id number] completed influenza A virus A/ (H3N2) antigen 0.03 MG/ML / influenza A virus A/[facility] (H1N1) antigen 0.03 MG/ML / influenza B virus B/ antigen 0.03 MG/ML / influenza B virus B/[facility]/[id number] antigen 0.03 MG/ML Injectable Suspension [Flucelvax Quadrivalent ] [facility] ([facility]) Divalproex Sodium 500 MG Delayed Release Oral Tablet divalproex 500 mg tablet,delayed release divalproex 500 mg tablet,delayed release completed divalproex sodium 500 MG Delayed Release Oral Tablet [facility] ([facility]) Ondansetron 8 MG Disintegrating Oral Tab let ondansetron 8 mg disintegrating tablet ondansetron 8 mg disintegrating tablet completed ondansetron 8 MG Disintegrating Oral Tablet [facility] ([facility]) Metformin hydrochloride 1000 MG Oral Tablet metformin 1,000 mg tablet metformin 1,000 mg tablet completed metformin hydrochloride 1000 MG Oral Tablet [facility] ([facility]) Metoclopramide 10 MG Oral Tablet metoclopramide 10 mg tablet metoclopramide 10 mg tablet completed metocloprami de 10 MG Oral Tablet [facility] ([facility]) carvedilol 3.125 MG Oral Tablet carvedilol 3.125 mg ta blet carvedilol 3.125 mg tablet completed carvedilol 3.12 5 MG Oral Tablet [facility] ([facility]) Fluzone Quad (PF) 60 mcg (15 m cg x 4)/0.5 mL IM syringe INJECT INTRAMUSCULARLY IN THE LEFT ARM [id number] compl eted 0.5 ML influenza A virus A/[place] (H1N1) antigen 0.03 MG/ML / influenza A virus A/ (H3N2) antigen 0.03 MG/ML / influenza B virus B/[place] antigen 0.03 MG/ML / influenza B virus B/[facility] antigen 0.03 MG/ML Prefilled Syringe [Fluzone Quadrivalent ] [facility] ([facility]) Flucelvax Quad 60 mcg (15 mcg x 4)/0.5 mL IM suspension [id number] completed influenza A vi jeremías A/[place] (H3N2) antigen 0.03 MG/ML / influenza A virus A//[id number] (H1N1) antigen 0.03 MG/ML / influenza B virus B/[place] antigen 0.03 MG/ML / influenza B virus B//[id number] antigen 0.03 MG/ML Injectable Suspension ROLAND[facility] ([facility] [place] Flucelvax Quad 60 mcg (15 mcg x 4)/0.5 mL intramuscular susp INJECT 0.5ML DIRECTED [id number] completed influenza A virus A/ (H3N2) antigen 0.03 MG/ML / influenza A virus A/[place] (H1N1) antigen 0.03 MG/ML / influenza B virus B/[place] antigen 0.03 MG/ML / influenza B virus B//[id number]/2016 antigen 0.03 MG/ML Injectable Suspension [Flucelvax Quadrivalent ] ROLANDO ([facility] [place] Ondansetron 8 MG Oral Tablet ondansetron HCl 8 mg tabl et ondansetron HCl 8 mg tablet completed ondansetron 8 M G Oral Tablet ROLAND[facility] ([facility] [place]) topiramate 25 MG Oral Tablet topiramate 25 mg tablet TAKE ONE TABLET BY MOUTH TWICE A DAY DIRECTED topiramate 25 mg tablet TAKE ONE TABLET BY MOUTH TWICE A DAY DIRECTED completed topira mate 25 MG Oral Tablet ROLANDO ([facility] [place]) Ondansetron 8 MG Oral Tablet ondansetron HCl 8 mg tabl et ondansetron HCl 8 mg tablet completed ondansetron 8 M G Oral Tablet ROLANDO ([facility] [place]) Ondansetron 4 MG Oral Tablet ondansetron HCl 4 mg tabl et ondansetron HCl 4 mg tablet completed ondansetron 4 M G Oral Tablet ROLANDO ([facility] [place]) Metoclopramide 10 MG Oral Tablet metoclopramide 10 mg tablet metoclopramide 10 mg tablet completed metocloprami de 10 MG Oral Tablet ROLANDO ([facility] [place]) Ondansetron 8 MG Oral Tablet ondansetron HCl 8 mg tabl et ondansetron HCl 8 mg tablet completed ondansetron 8 M G Oral Tablet ROLANDO ([facility] [place]) Allopurinol 100 MG Oral Tablet allopurinol 100 mg tabl et allopurinol 100 mg tablet completed allopurinol 100 MG Oral Tablet ROLANDO ([facility] [place]) zonisamide 50 MG Oral Capsule zonisamide 50 mg capsule as needed zonisamide 50 mg capsule as needed completed z onisamide 50 MG Oral Capsule ROLANDO ([facility] [place]) Ondansetron 8 MG Oral Tablet ondansetron HCl 8 mg tabl et ondansetron HCl 8 mg tablet completed ondansetron 8 M G Oral Tablet ROLANDO ([facility] [place]) Divalproex Sodium 500 MG Delayed Release Oral Tablet divalproex 500 mg tablet,delayed release divalproex 500 mg tablet,delayed release completed divalproex sodium 500 MG Delayed Release Oral Tablet ROLANDO ([facility]) Ondansetron 8 MG Oral Tablet ondansetron HCl 8 mg tabl et ondansetron HCl 8 mg tablet completed ondansetron 8 M G Oral Tablet ROLANDO ([facility]) Divalproex Sodium 500 MG Delayed Release Oral Tablet divalproex 500 mg tablet,delayed release divalproex 500 mg tablet,delayed release completed divalproex sodium 500 MG Delayed Release Oral Tablet ROLANDO ([facility]) Metoclopramide 10 MG Oral Tablet metoclopramide 10 mg tablet metoclopramide 10 mg tablet completed metocloprami de 10 MG Oral Tablet ROLANDO ([facility] [place]) Oseltamivir 75 MG Oral Capsule oseltamivir 75 mg capsu le oseltamivir 75 mg capsule completed oseltamivir 75 MG Oral Capsule ROLANDO ([facility] [place] Oseltamivir 75 MG Oral Capsule oseltamivir 75 mg capsu le oseltamivir 75 mg capsule completed oseltamivir 75 MG Oral Capsule ROLANDO ([facility] [place]) Divalproex Sodium 500 MG Delayed Release Oral Tablet divalproex 500 mg tablet,delayed release divalproex 500 mg tablet,delayed release completed divalproex sodium 500 MG Delayed Release Oral Tablet ROLANDO ([facility] [place]) Flucelvax Quad [id number] 60 mcg (15 mcg x 4)/0.5 mL IM suspension [id number] completed influenza A vi jeremías A/[place] (H3N2) antigen 0.03 MG/ML / influenza A virus A//[id number] (H1N1) antigen 0.03 MG/ML / influenza B virus B/ antigen 0.03 MG/ML / influenza B virus B//[id number]/2016 antigen 0.03 MG/ML Injectable Suspension ROLANDO ([facility] [place]) topiramate 50 MG Oral Tablet topiramate 50 mg tablet a s needed topiramate 50 mg tablet as needed completed topir amate 50 MG Oral Tablet ROLANDO ([facility] [place]) Divalproex Sodium 250 MG Delayed Release Oral Tablet divalproex 250 mg tablet,delayed release divalproex 250 mg tablet,delayed release completed divalproex sodium 250 MG Delayed Release Oral Tablet ROLANDO ([facility] [place]) carvedilol 3.125 MG Oral Tablet carvedilol 3.125 mg ta blet carvedilol 3.125 mg tablet completed carvedilol 3.12 5 MG Oral Tablet ROLANDO ([facility] [place]) Divalproex Sodium 250 MG Delayed Release Oral Tablet divalproex 250 mg tablet,delayed release divalproex 250 mg tablet,delayed release completed divalproex sodium 250 MG Delayed Release Oral Tablet ROLANDO ([facility] [place]) Sumatriptan 25 MG Oral Tablet sumatriptan 25 mg tablet sumat riptan 25 mg tablet completed sumatriptan 25 MG Oral Tablet ROLANDO ([facility] [place]) carvedilol 3.125 MG Oral Tablet carvedilol 3.125 mg ta blet carvedilol 3.125 mg tablet completed carvedilol 3.12 5 MG Oral Tablet ROLANDO ([facility] [place]) doxycycline hyclate 100 MG Oral Tablet doxycycline hyc late 100 mg tablet doxycycline hyclate 100 mg tablet comp leted doxycycline hyclate 100 MG Oral Tablet ROLANDO ([facility] [place]) Amoxicillin 875 MG / Clavulanate 125 MG Oral Tablet amoxicillin 875 mg-potassium clavulanate 125 mg tablet amoxicillin 875 mg-potassium clavulanate 125 mg tablet completed amoxicillin 875 MG / clavulanate 125 MG Oral Tablet ROLANDO ([facility] [place]) carvedilol 3.125 MG Oral Tablet carvedilol 3.125 mg ta blet carvedilol 3.125 mg tablet completed carvedilol 3.12 5 MG Oral Tablet ROLANDO ([facility] [place]) Acetaminophen 325 MG / Hydrocodone Juanita trate 7.5 MG Oral Tablet hydrocodone 7.5 mg-acetaminophen 325 mg tablet hydrocodone 7.5 mg-acetaminophen 325 mg tablet completed acetaminophen 325 MG / hydrocodone bitartrate 7.5 MG Oral Tablet ROLANDO ([facility] [place]) 24 HR Metformin hydrochloride 500 MG Ext ended Release Oral Tablet metformin ER 500 mg tablet,extended release 24 hr metformin ER 500 mg tablet,extended rele ase 24 hr completed 24 HR m etformin hydrochloride 500 MG Extended Release Oral Tablet ROLANDO ([facility] [place]) doxycycline hyclate 100 MG Oral Tablet doxycycline hyc late 100 mg tablet doxycycline hyclate 100 mg tablet comp leted doxycycline hyclate 100 MG Oral Tablet ROLANDO ([facility] [place]) Acetaminophen 325 MG / Hydrocodone Juanita trate 5 MG Oral Tablet hydrocodone 5 mg- acetaminophen 325 mg tablet as needed hydrocodone 5 mg-acetaminophen 325 mg tablet as needed completed acetaminophen 325 MG / hydrocodone bitartrate 5 MG Oral Tablet ROLANDO ([facility] [place]) Flucelvax Quad [id number] 60 mcg (15 mcg x 4)/0.5 mL IM suspension [phone] completed influenza A vi jeremías A/[place] (H3N2) antigen 0.03 MG/ML / influenza A virus A//[id number]/2015 (H1N1) antigen 0.03 MG/ML / influenza B virus B/[place] antigen 0.03 MG/ML / influenza B virus B/[facility]/[id number] antigen 0.03 MG/ML Injectable Suspension ROLANDO ([facility] [place]) topiramate 25 MG Oral Tablet topiramate 25 mg tablet TAKE ONE TABLET BY MOUTH TWICE A DAY DIRECTED topiramate 25 mg tablet TAKE ONE TABLET BY MOUTH TWICE A DAY DIRECTED completed topira mate 25 MG Oral Tablet ROLANDO ([facility] [place]) topiramate 50 MG Oral Tablet topiramate 50 mg tablet a s needed topiramate 50 mg tablet as needed completed topir amate 50 MG Oral Tablet ROLANDO ([facility] [place]) zonisamide 50 MG Oral Capsule zonisamide 50 mg capsule as needed zonisamide 50 mg capsule as needed completed z onisamide 50 MG Oral Capsule ROLANDO ([facility] [place]) Ondansetron 8 MG Oral Tablet ondansetron HCl 8 mg tabl et ondansetron HCl 8 mg tablet completed ondansetron 8 M G Oral Tablet ROLANDO ([facility] [place]) Simvastatin 20 MG Oral Tablet simvastatin 20 mg tablet one by mouth once daily simvastatin 20 mg tablet one by mouth once daily completed simvastatin 20 MG Oral Tablet ROLANDO ([facility] [place]) Simvastatin 20 MG Oral Tablet simvastatin 20 mg tablet one by mouth once daily simvastatin 20 mg tablet one by mouth once daily completed simvastatin 20 MG Oral Tablet ROLANDO ([facility] [place]) 0.5 ML pneumococcal capsular polysacchar triston type [...] Prefilled Syringe [Pneumovax 23] ROLANDO ([facility] [place]) Divalproex Sodium 250 MG Delayed Release Oral Tablet divalproex 250 mg tablet,delayed release divalproex 250 mg tablet,delayed release completed divalproex sodium 250 MG Delayed Release Oral Tablet ROLANDO ([facility] [place]) Divalproex Sodium 500 MG Delayed Release Oral Tablet divalproex 500 mg tablet,delayed release divalproex 500 mg tablet,delayed release completed divalproex sodium 500 MG Delayed Release Oral Tablet ROLANDO ([facility] [place]) Simvastatin 20 MG Oral Tablet simvastatin 20 mg tablet one by mouth once daily simvastatin 20 mg tablet one by mouth once daily completed simvastatin 20 MG Oral Tablet ROLANDO ([facility] [place]) Naproxen 250 MG Oral Tablet naproxen 250 mg tablet as needed naproxen 250 mg tablet as needed completed napro xen 250 MG Oral Tablet ROLANDO ([facility] [place]) topiramate 50 MG Oral Tablet topiramate 50 mg tablet a s needed topiramate 50 mg tablet as needed completed topir amate 50 MG Oral Tablet ROLANDO ([facility] [place]) Fluzone Quad (PF) 60 mcg (15 m cg x 4)/0.5 mL IM syringe INJECT INTRAMUSCULARLY IN THE LEFT ARM [id number] compl eted 0.5 ML influenza A virus A/[place] (H1N1) antigen 0.03 MG/ML / influenza A virus A/ (H3N2) antigen 0.03 MG/ML / influenza B virus B/ antigen 0.03 MG/ML / influenza B virus B/[facility] antigen 0.03 MG/ML Prefilled Syringe [Fluzone Quadrivalent ] ROLANDO ([facility] [place]) meloxicam 7.5 MG Oral Tablet meloxicam 7.5 mg tablet meloxicam 7 .5 mg tablet completed meloxicam 7.5 MG Oral Tablet ROLANDO ([facility] [place]) Acetaminophen 325 MG / Hydrocodone Juanita trate 5 MG Oral Tablet hydrocodone 5 mg- acetaminophen 325 mg tablet as needed hydrocodone 5 mg-acetaminophen 325 mg tablet as needed completed acetaminophen 325 MG / hydrocodone bitartrate 5 MG Oral Tablet ROLANDO ([facility] [place]) carvedilol 3.125 MG Oral Tablet carvedilol 3.125 mg ta blet carvedilol 3.125 mg tablet completed carvedilol 3.12 5 MG Oral Tablet ROLANDO ([facility] [place]) Oseltamivir 75 MG Oral Capsule oseltamivir 75 mg capsu le oseltamivir 75 mg capsule completed oseltamivir 75 MG Oral Capsule ROLANDO ([facility] [place]) Naproxen 250 MG Oral Tablet naproxen 250 mg tablet as needed naproxen 250 mg tablet as needed completed napro xen 250 MG Oral Tablet ROLANDO ([facility] [place]) meloxicam 7.5 MG Oral Tablet meloxicam 7.5 mg tablet meloxicam 7 .5 mg tablet completed meloxicam 7.5 MG Oral Tablet ROLANDO ([facility] [place]) doxycycline hyclate 100 MG Oral Tablet doxycycline hyc late 100 mg tablet doxycycline hyclate 100 mg tablet comp leted doxycycline hyclate 100 MG Oral Tablet ROLANDO ([facility] [place]) Oseltamivir 75 MG Oral Capsule oseltamivir 75 mg capsu le oseltamivir 75 mg capsule completed oseltamivir 75 MG Oral Capsule ROLANDO ([facility] [place]) Amoxicillin 875 MG / Clavulanate 125 MG Oral Tablet amoxicillin 875 mg-potassium clavulanate 125 mg tablet amoxicillin 875 mg-potassium clavulanate 125 mg tablet completed amoxicillin 875 MG / clavulanate 125 MG Oral Tablet ROLANDO ([facility] [place]) Flucelvax Quad [id number] 60 mcg (15 mcg x 4)/0.5 mL intramuscular susp INJECT 0.5ML DIRECTED [id number] completed influenza A virus A/ (H3N2) antigen 0.03 MG/ML / influenza A virus A/[facility] (H1N1) antigen 0.03 MG/ML / influenza B virus B/ antigen 0.03 MG/ML / influenza B virus B/[place]/[id number] antigen 0.03 MG/ML Injectable Suspension [Flucelvax Quadrivalent ] ROLANDO ([facility] [place]) Ondansetron 4 MG Oral Tablet ondansetron HCl 4 mg tabl et ondansetron HCl 4 mg tablet completed ondansetron 4 M G Oral Tablet ROLANDO ([facility] [place]) Ondansetron 8 MG Oral Tablet ondansetron HCl 8 mg tabl et ondansetron HCl 8 mg tablet completed ondansetron 8 M G Oral Tablet ROLANDO ([facility] [place]) Allopurinol 100 MG Oral Tablet allopurinol 100 mg tabl et allopurinol 100 mg tablet completed allopurinol 100 MG Oral Tablet ROLANDO ([facility] [place]) Acetaminophen 325 MG / Hydrocodone Juanita trate 5 MG Oral Tablet hydrocodone 5 mg- acetaminophen 325 mg tablet as needed hydrocodone 5 mg-acetaminophen 325 mg tablet as needed completed acetaminophen 325 MG / hydrocodone bitartrate 5 MG Oral Tablet ROLANDO ([facility] [place]) doxycycline hyclate 100 MG Oral Tablet doxycycline hyc late 100 mg tablet doxycycline hyclate 100 mg tablet comp leted doxycycline hyclate 100 MG Oral Tablet ROLANDO ([facility] [place]) meloxicam 7.5 MG Oral Tablet meloxicam 7.5 mg tablet meloxicam 7 .5 mg tablet completed meloxicam 7.5 MG Oral Tablet ROLANDO ([facility] [place]) 0.5 ML pneumococcal capsular polysacchar triston type [...] Prefilled Syringe [Pneumovax 23] ROLANDO ([facility] [place]) Sumatriptan 25 MG Oral Tablet sumatriptan 25 mg tablet sumat riptan 25 mg tablet completed sumatriptan 25 MG Oral Tablet ROLANDO ([facility] [place]) doxycycline hyclate 100 MG Oral Tablet doxycycline hyc late 100 mg tablet doxycycline hyclate 100 mg tablet comp leted doxycycline hyclate 100 MG Oral Tablet ROLANDO ([facility] [place]) Flucelvax Quad 9921-2235 60 mcg (15 mcg x 4)/0.5 mL IM suspension [id number] completed influenza A vi jeremías A/[place] (H3N2) antigen 0.03 MG/ML / influenza A virus A//[id number]/2015 (H1N1) antigen 0.03 MG/ML / influenza B virus B/ antigen 0.03 MG/ML / influenza B virus B/[place]/[id number] antigen 0.03 MG/ML Injectable Suspension ROLANDO ([facility] [place]) 24 HR Metformin hydrochloride 500 MG Ext ended Release Oral Tablet metformin ER 500 mg tablet,extended release 24 hr metformin ER 500 mg tablet,extended rele ase 24 hr completed 24 HR m etformin hydrochloride 500 MG Extended Release Oral Tablet ROLANDO ([facility] [place]) Acetaminophen 325 MG / Hydrocodone Juanita trate 7.5 MG Oral Tablet hydrocodone 7.5 mg-acetaminophen 325 mg tablet hydrocodone 7.5 mg-acetaminophen 325 mg tablet completed acetaminophen 325 MG / hydrocodone bitartrate 7.5 MG Oral Tablet ROLANDO ([facility] [place]) meloxicam 7.5 MG Oral Tablet meloxicam 7.5 mg tablet meloxicam 7 .5 mg tablet completed meloxicam 7.5 MG Oral Tablet ROLANDO ([facility] [place]) Acetaminophen 325 MG / Hydrocodone Juanita trate 5 MG Oral Tablet hydrocodone 5 mg- acetaminophen 325 mg tablet as needed hydrocodone 5 mg-acetaminophen 325 mg tablet as needed completed acetaminophen 325 MG / hydrocodone bitartrate 5 MG Oral Tablet ROLANDO ([facility] [place]) Metoclopramide 10 MG Oral Tablet metoclopramide 10 mg tablet metoclopramide 10 mg tablet completed metocloprami de 10 MG Oral Tablet ROLANDO ([facility] [place]) Naproxen 250 MG Oral Tablet naproxen 250 mg tablet as needed naproxen 250 mg tablet as needed completed napro xen 250 MG Oral Tablet ROLANDO ([facility] [place]) Naproxen 250 MG Oral Tablet naproxen 250 mg tablet as needed naproxen 250 mg tablet as needed completed napro xen 250 MG Oral Tablet ROLANDO ([facility] [place]) meloxicam 7.5 MG Oral Tablet meloxicam 7.5 mg tablet meloxicam 7 .5 mg tablet completed meloxicam 7.5 MG Oral Tablet ROLANDO ([facility] [place]) topiramate 25 MG Oral Tablet topiramate 25 mg tablet TAKE ONE TABLET BY MOUTH TWICE A DAY DIRECTED topiramate 25 mg tablet TAKE ONE TABLET BY MOUTH TWICE A DAY DIRECTED completed topira mate 25 MG Oral Tablet ROLANDO ([facility] [place]) doxycycline hyclate 100 MG Oral Tablet doxycycline hyc late 100 mg tablet doxycycline hyclate 100 mg tablet comp leted doxycycline hyclate 100 MG Oral Tablet ROLANDO ([facility] [place]) Metformin hydrochloride 1000 MG Oral Tablet metformin 1,000 mg tablet metformin 1,000 mg tablet completed metformin hydrochloride 1000 MG Oral Tablet ROLANDO ([facility] [place]) Simvastatin 20 MG Oral Tablet simvastatin 20 mg tablet one by mouth once daily simvastatin 20 mg tablet one by mouth once daily completed simvastatin 20 MG Oral Tablet ROLANDO ([facility] [place]) Divalproex Sodium 250 MG Delayed Release Oral Tablet divalproex 250 mg tablet,delayed release divalproex 250 mg tablet,delayed release completed divalproex sodium 250 MG Delayed Release Oral Tablet ROLANDO ([facility] [place]) Ondansetron 4 MG Disintegrating Oral Tab let ondansetron 4 mg disintegrating tablet ondansetron 4 mg disintegrating tablet completed ondansetron 4 MG Disintegrating Oral Tablet ROLANDO ([facility] [place]) Fluzone Quad 8569-1824 (PF) 60 mcg (15 m cg x 4)/0.5 mL IM syringe INJECT INTRAMUSCULARLY IN THE LEFT ARM [id number] compl eted 0.5 ML influenza A virus A/[place] (H1N1) antigen 0.03 MG/ML / influenza A virus A/[place] (H3N2) antigen 0.03 MG/ML / influenza B virus B/[place] antigen 0.03 MG/ML / influenza B virus B/[facility] antigen 0.03 MG/ML Prefilled Syringe [Fluzone Quadrivalent ] ROLANDO ([facility] [place]) topiramate 25 MG Oral Tablet topiramate 25 mg tablet TAKE ONE TABLET BY MOUTH TWICE A DAY DIRECTED topiramate 25 mg tablet TAKE ONE TABLET BY MOUTH TWICE A DAY DIRECTED completed topira mate 25 MG Oral Tablet ROLANDO ([facility] [place]) Acetaminophen 325 MG / Hydrocodone Juanita trate 7.5 MG Oral Tablet hydrocodone 7.5 mg-acetaminophen 325 mg tablet hydrocodone 7.5 mg-acetaminophen 325 mg tablet completed acetaminophen 325 MG / hydrocodone bitartrate 7.5 MG Oral Tablet ROLANDO ([facility] [place]) zonisamide 50 MG Oral Capsule zonisamide 50 mg capsule as needed zonisamide 50 mg capsule as needed completed z onisamide 50 MG Oral Capsule ROLANDO ([facility] [place]) Simvastatin 20 MG Oral Tablet simvastatin 20 mg tablet one by mouth once daily simvastatin 20 mg tablet one by mouth once daily completed simvastatin 20 MG Oral Tablet ROLANDO ([facility] [place]) Naproxen 250 MG Oral Tablet naproxen 250 mg tablet as needed naproxen 250 mg tablet as needed completed napro xen 250 MG Oral Tablet ROLANDO ([facility] [place]) Divalproex Sodium 500 MG Delayed Release Oral Tablet divalproex 500 mg tablet,delayed release divalproex 500 mg tablet,delayed release completed divalproex sodium 500 MG Delayed Release Oral Tablet ROLANDO ([facility] [place]) Sumatriptan 25 MG Oral Tablet sumatriptan 25 mg tablet sumat riptan 25 mg tablet completed sumatriptan 25 MG Oral Tablet ROLANDO ([facility] [place]) Flucelvax Quad [id number] 60 mcg (15 mcg x 4)/0.5 mL IM suspension [id number] completed influenza A vi jeremías A/[place] (H3N2) antigen 0.03 MG/ML / influenza A virus A//[id number]/2015 (H1N1) antigen 0.03 MG/ML / influenza B virus B/ antigen 0.03 MG/ML / influenza B virus B/[facility]/[id number]/2016 antigen 0.03 MG/ML Injectable Suspension ROLANDO ([facility] [place]) Divalproex Sodium 250 MG Delayed Release Oral Tablet divalproex 250 mg tablet,delayed release divalproex 250 mg tablet,delayed release completed divalproex sodium 250 MG Delayed Release Oral Tablet ROLANDO ([facility] [place]) Acetaminophen 325 MG / Hydrocodone Juanita trate 7.5 MG Oral Tablet hydrocodone 7.5 mg-acetaminophen 325 mg tablet hydrocodone 7.5 mg-acetaminophen 325 mg tablet completed acetaminophen 325 MG / hydrocodone bitartrate 7.5 MG Oral Tablet ROLANDO ([facility] [place]) 0.5 ML pneumococcal capsular polysacchar triston type [...] Prefilled Syringe [Pneumovax 23] ROLANDO ([facility] [place]) Divalproex Sodium 500 MG Delayed Release Oral Tablet divalproex 500 mg tablet,delayed release divalproex 500 mg tablet,delayed release completed divalproex sodium 500 MG Delayed Release Oral Tablet ROLANDO ([facility] [place]) 24 HR Metformin hydrochloride 500 MG Ext ended Release Oral Tablet metformin ER 500 mg tablet,extended release 24 hr metformin ER 500 mg tablet,extended rele ase 24 hr completed 24 HR m etformin hydrochloride 500 MG Extended Release Oral Tablet ROLANDO ([facility] [place]) Ondansetron 8 MG Oral Tablet ondansetron HCl 8 mg tabl et ondansetron HCl 8 mg tablet completed ondansetron 8 M G Oral Tablet ROLANDO ([facility] [place]) Amoxicillin 875 MG / Clavulanate 125 MG Oral Tablet amoxicillin 875 mg-potassium clavulanate 125 mg tablet amoxicillin 875 mg-potassium clavulanate 125 mg tablet completed amoxicillin 875 MG / clavulanate 125 MG Oral Tablet ROLANDO ([facility] [place]) Divalproex Sodium 250 MG Delayed Release Oral Tablet divalproex 250 mg tablet,delayed release divalproex 250 mg tablet,delayed release completed divalproex sodium 250 MG Delayed Release Oral Tablet ROLANDO ([facility] [place]) 0.5 ML pneumococcal capsular polysacchar triston type [...] Prefilled Syringe [Pneumovax 23] [place] ([facility] [place] Flucelvax Quad 60 mcg (15 mcg x 4)/0.5 mL intramuscular susp INJECT 0.5ML DIRECTED [id number] completed influenza A virus A/ (H3N2) antigen 0.03 MG/ML / influenza A virus A/ (H1N1) antigen 0.03 MG/ML / influenza B virus B/ antigen 0.03 MG/ML / influenza B virus B/ antigen 0.03 MG/ML Injectable Suspension [Flucelvax Quadrivalent ] [place] ([facility] [place] Divalproex Sodium 500 MG Delayed Release Oral Tablet divalproex 500 mg tablet,delayed release divalproex 500 mg tablet,delayed release completed divalproex sodium 500 MG Delayed Release Oral Tablet [place] ([facility] [place]) duloxetine 30 MG Delayed Release Oral Ca psule duloxetine 30 mg capsule,delayed release TAKE ONE CAPSULE BY MOUTH EVERY DAY duloxetine 30 mg capsule,delayed release TAKE ONE CAPSULE BY MOUTH EVERY DAY completed duloxetine 30 MG Delayed Release Oral Capsule [place] ([facility] [place]) doxycycline hyclate 100 MG Oral Tablet doxycycline hyc late 100 mg tablet doxycycline hyclate 100 mg tablet comp leted doxycycline hyclate 100 MG Oral Tablet [place] ([facility] [place]) Acetaminophen 325 MG / Hydrocodone Juanita trate 7.5 MG Oral Tablet hydrocodone 7.5 mg-acetaminophen 325 mg tablet hydrocodone 7.5 mg-acetaminophen 325 mg tablet completed acetaminophen 325 MG / hydrocodone bitartrate 7.5 MG Oral Tablet [place] ([facility] [place]) Sumatriptan 25 MG Oral Tablet sumatriptan 25 mg tablet sumat riptan 25 mg tablet completed sumatriptan 25 MG Oral Tablet [place] ([facility] [place] Flucelvax Quad 60 mcg (15 mcg x 4)/0.5 mL intramuscular susp INJECT 0.5ML DIRECTED [id number] completed influenza A virus A/ (H3N2) antigen 0.03 MG/ML / influenza A virus A/ (H1N1) antigen 0.03 MG/ML / influenza B virus B/ antigen 0.03 MG/ML / influenza B virus B/[id number] antigen 0.03 MG/ML Injectable Suspension [Flucelvax Quadrivalent ] [place] ([facility] [place] Divalproex Sodium 250 MG Delayed Release Oral Tablet divalproex 250 mg tablet,delayed release divalproex 250 mg tablet,delayed release completed divalproex sodium 250 MG Delayed Release Oral Tablet [place] ([facility] [place]) 0.5 ML pneumococcal capsular polysacchar triston type [...] Prefilled Syringe [Pneumovax 23] [place] ([facility] [place]) Simvastatin 20 MG Oral Tablet simvastatin 20 mg tablet one by mouth once daily simvastatin 20 mg tablet one by mouth once daily completed simvastatin 20 MG Oral Tablet [place] ([facility] [place]) Divalproex Sodium 250 MG Delayed Release Oral Tablet divalproex 250 mg tablet,delayed release divalproex 250 mg tablet,delayed release completed divalproex sodium 250 MG Delayed Release Oral Tablet [place] ([facility] [place]) Metoclopramide 10 MG Oral Tablet metoclopramide 10 mg tablet metoclopramide 10 mg tablet completed metocloprami de 10 MG Oral Tablet [place] ([facility] [place]) meloxicam 7.5 MG Oral Tablet meloxicam 7.5 mg tablet meloxicam 7 .5 mg tablet completed meloxicam 7.5 MG Oral Tablet [place] ([facility] [place]) carvedilol 3.125 MG Oral Tablet carvedilol 3.125 mg ta blet carvedilol 3.125 mg tablet completed carvedilol 3.12 5 MG Oral Tablet [place] ([facility] [place]) 0.5 ML pneumococcal capsular polysacchar triston type [...] Prefilled Syringe [Pneumovax 23] [place] ([facility] [place]) Simvastatin 20 MG Oral Tablet simvastatin 20 mg tablet one by mouth once daily simvastatin 20 mg tablet one by mouth once daily completed simvastatin 20 MG Oral Tablet [place] ([facility] [place]) Divalproex Sodium 250 MG Delayed Release Oral Tablet divalproex 250 mg tablet,delayed release divalproex 250 mg tablet,delayed release completed divalproex sodium 250 MG Delayed Release Oral Tablet [place] ([facility] [place]) Amoxicillin 875 MG / Clavulanate 125 MG Oral Tablet amoxicillin 875 mg-potassium clavulanate 125 mg tablet amoxicillin 875 mg-potassium clavulanate 125 mg tablet completed amoxicillin 875 MG / clavulanate 125 MG Oral Tablet [place] ([facility] [place]) zonisamide 50 MG Oral Capsule zonisamide 50 mg capsule as needed zonisamide 50 mg capsule as needed completed z onisamide 50 MG Oral Capsule [place]OL[place] ([facility] [place]) Allopurinol 100 MG Oral Tablet allopurinol 100 mg tabl et allopurinol 100 mg tablet completed allopurinol 100 MG Oral Tablet [place] ([facility] [place]) carvedilol 3.125 MG Oral Tablet carvedilol 3.125 mg ta blet carvedilol 3.125 mg tablet completed carvedilol 3.12 5 MG Oral Tablet [place] ([facility] [place]) duloxetine 30 MG Delayed Release Oral Ca psule duloxetine 30 mg capsule,delayed release TAKE ONE CAPSULE BY MOUTH EVERY DAY duloxetine 30 mg capsule,delayed release TAKE ONE CAPSULE BY MOUTH EVERY DAY completed duloxetine 30 MG Delayed Release Oral Capsule [place] ([facility] [place]) Ondansetron 8 MG Oral Tablet ondansetron HCl 8 mg tabl et ondansetron HCl 8 mg tablet completed ondansetron 8 M G Oral Tablet [place] ([facility] [place]) Ondansetron 4 MG Disintegrating Oral Tab let ondansetron 4 mg disintegrating tablet ondansetron 4 mg disintegrating tablet completed ondansetron 4 MG Disintegrating Oral Tablet [place]OL[place] ([facility] [place]) Flucelvax Quad 60 mcg (15 mcg x 4)/0.5 mL IM suspension [id number] completed influenza A vi jeremías A/[place] (H3N2) antigen 0.03 MG/ML / influenza A virus A/[id number]/2015 (H1N1) antigen 0.03 MG/ML / influenza B virus B/ antigen 0.03 MG/ML / influenza B virus B//[id number] antigen 0.03 MG/ML Injectable Suspension ROLANDO ([facility] [place]) carvedilol 3.125 MG Oral Tablet carvedilol 3.125 mg ta blet carvedilol 3.125 mg tablet completed carvedilol 3.12 5 MG Oral Tablet ROLANDO ([facility]) Flucelvax Quad 60 mcg (15 mcg x 4)/0.5 mL intramuscular susp INJECT 0.5ML DIRECTED [id number] completed influenza A virus A/ (H3N2) antigen 0.03 MG/ML / influenza A virus A/[facility] (H1N1) antigen 0.03 MG/ML / influenza B virus B/ antigen 0.03 MG/ML / influenza B virus B//[id number] antigen 0.03 MG/ML Injectable Suspension [Flucelvax Quadrivalent ] ROLANDO ([facility] [place]) Ondansetron 4 MG Oral Tablet ondansetron HCl 4 mg tabl et ondansetron HCl 4 mg tablet completed ondansetron 4 M G Oral Tablet [place]OL[place] ([facility] [place]) 0.5 ML pneumococcal capsular polysacchar triston type [...] antigen 0.05 MG/ML Prefilled Syringe [Pneumovax 23] [place] ([facility] [place]) Divalproex Sodium 250 MG Delayed Release Oral Tablet divalproex 250 mg tablet,delayed release divalproex 250 mg tablet,delayed release completed divalproex sodium 250 MG Delayed Release Oral Tablet [place]OLANDO ([facility] [place]) Amoxicillin 875 MG / Clavulanate 125 MG Oral Tablet amoxicillin 875 mg-potassium clavulanate 125 mg tablet amoxicillin 875 mg-potassium clavulanate 125 mg tablet completed amoxicillin 875 MG / clavulanate 125 MG Oral Tablet [place] ([facility] [place]) meloxicam 7.5 MG Oral Tablet meloxicam 7.5 mg tablet meloxicam 7 .5 mg tablet completed meloxicam 7.5 MG Oral Tablet [place] ([facility] [place]) Oseltamivir 75 MG Oral Capsule oseltamivir 75 mg capsu le oseltamivir 75 mg capsule completed oseltamivir 75 MG Oral Capsule [place]OL[place]O ([facility] [place]) Oseltamivir 75 MG Oral Capsule oseltamivir 75 mg capsu le oseltamivir 75 mg capsule completed oseltamivir 75 MG Oral Capsule [place]OLANDO ([facility] [place]) Sumatriptan 25 MG Oral Tablet sumatriptan 25 mg tablet sumat riptan 25 mg tablet completed sumatriptan 25 MG Oral Tablet [place] ([facility] [place]) 0.5 ML pneumococcal capsular polysacchar triston type [...] Prefilled Syringe [Pneumovax 23] ROLANDO ([facility] [place]) Amoxicillin 875 MG / Clavulanate 125 MG Oral Tablet amoxicillin 875 mg-potassium clavulanate 125 mg tablet amoxicillin 875 mg-potassium clavulanate 125 mg tablet completed amoxicillin 875 MG / clavulanate 125 MG Oral Tablet [place]OL[place] ([facility] [place]) Divalproex Sodium 250 MG Delayed Release Oral Tablet divalproex 250 mg tablet,delayed release divalproex 250 mg tablet,delayed release completed divalproex sodium 250 MG Delayed Release Oral Tablet [place]OL[place] ([facility] [place]) 24 HR Metformin hydrochloride 500 MG Ext ended Release Oral Tablet metformin ER 500 mg tablet,extended release 24 hr metformin ER 500 mg tablet,extended rele ase 24 hr completed 24 HR m etformin hydrochloride 500 MG Extended Release Oral Tablet ROLANDO ([facility] [place]) Ondansetron 8 MG Oral Tablet ondansetron HCl 8 mg tabl et ondansetron HCl 8 mg tablet completed ondansetron 8 M G Oral Tablet [place] ([facility] [place]) Amoxicillin 875 MG / Clavulanate 125 MG Oral Tablet amoxicillin 875 mg-potassium clavulanate 125 mg tablet amoxicillin 875 mg-potassium clavulanate 125 mg tablet completed amoxicillin 875 MG / clavulanate 125 MG Oral Tablet ROLANDO ([facility] [place]) doxycycline hyclate 100 MG Oral Tablet doxycycline hyc late 100 mg tablet doxycycline hyclate 100 mg tablet comp leted doxycycline hyclate 100 MG Oral Tablet [place] ([facility] [place]) topiramate 50 MG Oral Tablet topiramate 50 mg tablet a s needed topiramate 50 mg tablet as needed completed topir amate 50 MG Oral Tablet [place]OL[place]O ([facility] [place]) Ondansetron 4 MG Oral Tablet ondansetron HCl 4 mg tabl et ondansetron HCl 4 mg tablet completed ondansetron 4 M G Oral Tablet [place]OL[place]O ([facility] [place]) 24 HR Metformin hydrochloride 500 MG Ext ended Release Oral Tablet metformin ER 500 mg tablet,extended release 24 hr metformin ER 500 mg tablet,extended rele ase 24 hr completed 24 HR m etformin hydrochloride 500 MG Extended Release Oral Tablet ROLANDO ([facility] [place]) zonisamide 50 MG Oral Capsule zonisamide 50 mg capsule as needed zonisamide 50 mg capsule as needed completed z onisamide 50 MG Oral Capsule ROLANDO ([facility] [place]) Allopurinol 100 MG Oral Tablet allopurinol 100 mg tabl et allopurinol 100 mg tablet completed allopurinol 100 MG Oral Tablet [place] ([facility] [place]) Ondansetron 4 MG Disintegrating Oral Tab let ondansetron 4 mg disintegrating tablet ondansetron 4 mg disintegrating tablet completed ondansetron 4 MG Disintegrating Oral Tablet [place]OL[place] ([facility] [place]) meloxicam 7.5 MG Oral Tablet meloxicam 7.5 mg tablet meloxicam 7 .5 mg tablet completed meloxicam 7.5 MG Oral Tablet [place] ([facility] [place]) topiramate 50 MG Oral Tablet topiramate 50 mg tablet a s needed topiramate 50 mg tablet as needed completed topir amate 50 MG Oral Tablet [place] ([facility] [place]) Ondansetron 8 MG Disintegrating Oral Tab let ondansetron 8 mg disintegrating tablet ondansetron 8 mg disintegrating tablet completed ondansetron 8 MG Disintegrating Oral Tablet ROLANDO ([facility] [place]) doxycycline hyclate 100 MG Oral Tablet doxycycline hyc late 100 mg tablet doxycycline hyclate 100 mg tablet comp leted doxycycline hyclate 100 MG Oral Tablet ROLANDO ([facility] [place]) Simvastatin 20 MG Oral Tablet simvastatin 20 mg tablet one by mouth once daily simvastatin 20 mg tablet one by mouth once daily completed simvastatin 20 MG Oral Tablet [place]OLANDO ([facility] [place]) Acetaminophen 325 MG / Hydrocodone Juanita trate 5 MG Oral Tablet hydrocodone 5 mg- acetaminophen 325 mg tablet as needed hydrocodone 5 mg-acetaminophen 325 mg tablet as needed completed acetaminophen 325 MG / hydrocodone bitartrate 5 MG Oral Tablet [place]OL[place]O ([facility] [place]) Flucelvax Quad 60 mcg (15 mcg x 4)/0.5 mL intramuscular susp INJECT 0.5ML DIRECTED [id number] completed influenza A virus A/ (H3N2) antigen 0.03 MG/ML / influenza A virus A/[place] (H1N1) antigen 0.03 MG/ML / influenza B virus B/ antigen 0.03 MG/ML / influenza B virus B/[facility]/[id number] antigen 0.03 MG/ML Injectable Suspension [Flucelvax Quadrivalent ] ROLANDO ([facility] [place]) topiramate 50 MG Oral Tablet topiramate 50 mg tablet a s needed topiramate 50 mg tablet as needed completed topir amate 50 MG Oral Tablet [place] ([facility] [place]) Sumatriptan 25 MG Oral Tablet sumatriptan 25 mg tablet sumat riptan 25 mg tablet completed sumatriptan 25 MG Oral Tablet [place] ([facility] [place]) meloxicam 7.5 MG Oral Tablet meloxicam 7.5 mg tablet meloxicam 7 .5 mg tablet completed meloxicam 7.5 MG Oral Tablet [place] ([facility] [place]) Acetaminophen 325 MG / Hydrocodone Juanita trate 5 MG Oral Tablet hydrocodone 5 mg- acetaminophen 325 mg tablet as needed hydrocodone 5 mg-acetaminophen 325 mg tablet as needed completed acetaminophen 325 MG / hydrocodone bitartrate 5 MG Oral Tablet [place] ([facility] [place]) Metformin hydrochloride 1000 MG Oral Tablet metformin 1,000 mg tablet metformin 1,000 mg tablet completed metformin hydrochloride 1000 MG Oral Tablet [place] ([facility] [place]) Ondansetron 4 MG Oral Tablet ondansetron HCl 4 mg tabl et ondansetron HCl 4 mg tablet completed ondansetron 4 M G Oral Tablet [place] ([facility] [place]) carvedilol 3.125 MG Oral Tablet carvedilol 3.125 mg ta blet carvedilol 3.125 mg tablet completed carvedilol 3.12 5 MG Oral Tablet [place] ([facility] [place]) Ondansetron 8 MG Oral Tablet ondansetron HCl 8 mg tabl et ondansetron HCl 8 mg tablet completed ondansetron 8 M G Oral Tablet [place] ([facility] [place]) Acetaminophen 325 MG / Hydrocodone Juanita trate 5 MG Oral Tablet hydrocodone 5 mg- acetaminophen 325 mg tablet as needed hydrocodone 5 mg-acetaminophen 325 mg tablet as needed completed acetaminophen 325 MG / hydrocodone bitartrate 5 MG Oral Tablet [place] ([facility] [place]) Metoclopramide 10 MG Oral Tablet metoclopramide 10 mg tablet metoclopramide 10 mg tablet completed metocloprami de 10 MG Oral Tablet [place] ([facility] [place]) Acetaminophen 325 MG / Hydrocodone Juanita trate 7.5 MG Oral Tablet hydrocodone 7.5 mg-acetaminophen 325 mg tablet hydrocodone 7.5 mg-acetaminophen 325 mg tablet completed acetaminophen 325 MG / hydrocodone bitartrate 7.5 MG Oral Tablet [place] ([facility] [place]) Divalproex Sodium 250 MG Delayed Release Oral Tablet divalproex 250 mg tablet,delayed release divalproex 250 mg tablet,delayed release completed divalproex sodium 250 MG Delayed Release Oral Tablet [place] ([facility] [place]) meloxicam 7.5 MG Oral Tablet meloxicam 7.5 mg tablet meloxicam 7 .5 mg tablet completed meloxicam 7.5 MG Oral Tablet [place] ([facility] [place]) Naproxen 250 MG Oral Tablet naproxen 250 mg tablet as needed naproxen 250 mg tablet as needed completed napro xen 250 MG Oral Tablet [place] ([facility] [place]) meloxicam 7.5 MG Oral Tablet meloxicam 7.5 mg tablet meloxicam 7 .5 mg tablet completed meloxicam 7.5 MG Oral Tablet [place] ([facility] [place]) Metoclopramide 10 MG Oral Tablet metoclopramide 10 mg tablet metoclopramide 10 mg tablet completed metocloprami de 10 MG Oral Tablet [place] ([facility] [place]) Ondansetron 4 MG Oral Tablet ondansetron HCl 4 mg tabl et ondansetron HCl 4 mg tablet completed ondansetron 4 M G Oral Tablet [place] ([facility] [place]) Sumatriptan 25 MG Oral Tablet sumatriptan 25 mg tablet sumat riptan 25 mg tablet completed sumatriptan 25 MG Oral Tablet [place] ([facility] [place]) duloxetine 30 MG Delayed Release Oral Ca psule duloxetine 30 mg capsule,delayed release TAKE ONE CAPSULE BY MOUTH EVERY DAY duloxetine 30 mg capsule,delayed release TAKE ONE CAPSULE BY MOUTH EVERY DAY completed duloxetine 30 MG Delayed Release Oral Capsule [place] ([facility] [place]) Fluzone Quad (PF) 60 mcg (15 m cg x 4)/0.5 mL IM syringe INJECT INTRAMUSCULARLY IN THE LEFT ARM [id number] compl eted 0.5 ML influenza A virus A/[place] (H1N1) antigen 0.03 MG/ML / influenza A virus A/[place] (H3N2) antigen 0.03 MG/ML / influenza B virus B/ antigen 0.03 MG/ML / influenza B virus B/[facility] antigen 0.03 MG/ML Prefilled Syringe [Fluzone Quadrivalent ] [place]OL[place]O ([facility] [place] Divalproex Sodium 250 MG Delayed Release Oral Tablet divalproex 250 mg tablet,delayed release divalproex 250 mg tablet,delayed release completed divalproex sodium 250 MG Delayed Release Oral Tablet [place] ([facility] [place]) Ondansetron 8 MG Oral Tablet ondansetron HCl 8 mg tabl et ondansetron HCl 8 mg tablet completed ondansetron 8 M G Oral Tablet [place] ([facility] [place]) Divalproex Sodium 250 MG Delayed Release Oral Tablet divalproex 250 mg tablet,delayed release divalproex 250 mg tablet,delayed release completed divalproex sodium 250 MG Delayed Release Oral Tablet [place] ([facility] [place]) meloxicam 7.5 MG Oral Tablet meloxicam 7.5 mg tablet meloxicam 7 .5 mg tablet completed meloxicam 7.5 MG Oral Tablet [place] ([facility] [place]) topiramate 50 MG Oral Tablet topiramate 50 mg tablet a s needed topiramate 50 mg tablet as needed completed topir amate 50 MG Oral Tablet [place] ([facility] [place]) 0.5 ML pneumococcal capsular polysacchar triston type [...] Prefilled Syringe [Pneumovax 23] [place] ([facility] [place]) Metoclopramide 10 MG Oral Tablet metoclopramide 10 mg tablet metoclopramide 10 mg tablet completed metocloprami de 10 MG Oral Tablet [place] ([facility] [place]) Acetaminophen 325 MG / Hydrocodone Juanita trate 5 MG Oral Tablet hydrocodone 5 mg- acetaminophen 325 mg tablet as needed hydrocodone 5 mg-acetaminophen 325 mg tablet as needed completed acetaminophen 325 MG / hydrocodone bitartrate 5 MG Oral Tablet [place] ([facility] [place]) Metoclopramide 10 MG Oral Tablet metoclopramide 10 mg tablet metoclopramide 10 mg tablet completed metocloprami de 10 MG Oral Tablet [place] ([facility] [place]) Acetaminophen 325 MG / Hydrocodone Juanita trate 5 MG Oral Tablet hydrocodone 5 mg- acetaminophen 325 mg tablet as needed hydrocodone 5 mg-acetaminophen 325 mg tablet as needed completed acetaminophen 325 MG / hydrocodone bitartrate 5 MG Oral Tablet [place] ([facility] [place]) Acetaminophen 325 MG / Hydrocodone Juanita trate 7.5 MG Oral Tablet hydrocodone 7.5 mg-acetaminophen 325 mg tablet hydrocodone 7.5 mg-acetaminophen 325 mg tablet completed acetaminophen 325 MG / hydrocodone bitartrate 7.5 MG Oral Tablet [place] ([facility] [place]) Ondansetron 4 MG Oral Tablet ondansetron HCl 4 mg tabl et ondansetron HCl 4 mg tablet completed ondansetron 4 M G Oral Tablet [place] ([facility] [place]) Flucelvax Quad [id number] 60 mcg (15 mcg x 4)/0.5 mL IM suspension [id number] completed influenza A vi jeremías A/[place] (H3N2) antigen 0.03 MG/ML / influenza A virus A/[id number] (H1N1) antigen 0.03 MG/ML / influenza B virus B/[place] antigen 0.03 MG/ML / influenza B virus B/[facility]/[id number]/2016 antigen 0.03 MG/ML Injectable Suspension ROLANDO ([facility] [place]) Divalproex Sodium 500 MG Delayed Release Oral Tablet divalproex 500 mg tablet,delayed release divalproex 500 mg tablet,delayed release completed divalproex sodium 500 MG Delayed Release Oral Tablet [place] ([facility] [place]) 24 HR Metformin hydrochloride 500 MG Ext ended Release Oral Tablet metformin ER 500 mg tablet,extended release 24 hr metformin ER 500 mg tablet,extended rele ase 24 hr completed 24 HR m etformin hydrochloride 500 MG Extended Release Oral Tablet [place] ([facility] [place]) topiramate 50 MG Oral Tablet topiramate 50 mg tablet a s needed topiramate 50 mg tablet as needed completed topir amate 50 MG Oral Tablet [place] ([facility] [place]) carvedilol 3.125 MG Oral Tablet carvedilol 3.125 mg ta blet carvedilol 3.125 mg tablet completed carvedilol 3.12 5 MG Oral Tablet [place] ([facility] [place]) zonisamide 50 MG Oral Capsule zonisamide 50 mg capsule as needed zonisamide 50 mg capsule as needed completed z onisamide 50 MG Oral Capsule [place] ([facility] [place]) doxycycline hyclate 100 MG Oral Tablet doxycycline hyc late 100 mg tablet doxycycline hyclate 100 mg tablet comp leted doxycycline hyclate 100 MG Oral Tablet [place] ([facility] [place]) 0.5 ML pneumococcal capsular polysacchar triston type [...] Prefilled Syringe [Pneumovax 23] [place] ([facility] [place]) carvedilol 3.125 MG Oral Tablet carvedilol 3.125 mg ta blet carvedilol 3.125 mg tablet completed carvedilol 3.12 5 MG Oral Tablet [place] ([facility] [place]) carvedilol 3.125 MG Oral Tablet carvedilol 3.125 mg ta blet carvedilol 3.125 mg tablet completed carvedilol 3.12 5 MG Oral Tablet [place] ([facility] [place]) Simvastatin 20 MG Oral Tablet simvastatin 20 mg tablet one by mouth once daily simvastatin 20 mg tablet one by mouth once daily completed simvastatin 20 MG Oral Tablet [place] ([facility] [place] Amoxicillin 875 MG / Clavulanate 125 MG Oral Tablet amoxicillin 875 mg-potassium clavulanate 125 mg tablet amoxicillin 875 mg-potassium clavulanate 125 mg tablet completed amoxicillin 875 MG / clavulanate 125 MG Oral Tablet [place] ([facility] [place] Metoclopramide 10 MG Oral Tablet metoclopramide 10 mg tablet metoclopramide 10 mg tablet completed metocloprami de 10 MG Oral Tablet [place] ([facility] [place]) Ondansetron 8 MG Oral Tablet ondansetron HCl 8 mg tabl et ondansetron HCl 8 mg tablet completed ondansetron 8 M G Oral Tablet [place] ([facility] [place]) meloxicam 7.5 MG Oral Tablet meloxicam 7.5 mg tablet meloxicam 7 .5 mg tablet completed meloxicam 7.5 MG Oral Tablet [place] ([facility] [place]) Ondansetron 8 MG Disintegrating Oral Tab let ondansetron 8 mg disintegrating tablet ondansetron 8 mg disintegrating tablet completed ondansetron 8 MG Disintegrating Oral Tablet [place] ([facility] [place]) topiramate 50 MG Oral Tablet topiramate 50 mg tablet a s needed topiramate 50 mg tablet as needed completed topir amate 50 MG Oral Tablet [place] ([facility] [place]) zonisamide 50 MG Oral Capsule zonisamide 50 mg capsule as needed zonisamide 50 mg capsule as needed completed z onisamide 50 MG Oral Capsule [place] ([facility] [place]) Acetaminophen 325 MG / Hydrocodone Juanita trate 5 MG Oral Tablet hydrocodone 5 mg- acetaminophen 325 mg tablet as needed hydrocodone 5 mg-acetaminophen 325 mg tablet as needed completed acetaminophen 325 MG / hydrocodone bitartrate 5 MG Oral Tablet [place] ([facility] [place]) Flucelvax Quad 60 mcg (15 mcg x 4)/0.5 mL intramuscular susp INJECT 0.5ML DIRECTED [id number] completed influenza A virus A/[place] (H3N2) antigen 0.03 MG/ML / influenza A virus A/[place] (H1N1) antigen 0.03 MG/ML / influenza B virus B/[place] antigen 0.03 MG/ML / influenza B virus B/[facility]/[id number] antigen 0.03 MG/ML Injectable Suspension [Flucelvax Quadrivalent ] [place] ([facility] [place]) Ondansetron 8 MG Oral Tablet ondansetron HCl 8 mg tabl et ondansetron HCl 8 mg tablet completed ondansetron 8 M G Oral Tablet [place] ([facility] [place]) Acetaminophen 325 MG / Hydrocodone Juanita trate 7.5 MG Oral Tablet hydrocodone 7.5 mg-acetaminophen 325 mg tablet hydrocodone 7.5 mg-acetaminophen 325 mg tablet completed acetaminophen 325 MG / hydrocodone bitartrate 7.5 MG Oral Tablet [place] ([facility] [place]) Divalproex Sodium 500 MG Delayed Release Oral Tablet divalproex 500 mg tablet,delayed release divalproex 500 mg tablet,delayed release completed divalproex sodium 500 MG Delayed Release Oral Tablet [place] ([facility] [place]) 24 HR Metformin hydrochloride 500 MG Ext ended Release Oral Tablet metformin ER 500 mg tablet,extended release 24 hr metformin ER 500 mg tablet,extended rele ase 24 hr completed 24 HR m etformin hydrochloride 500 MG Extended Release Oral Tablet [place] ([facility] [place]) carvedilol 3.125 MG Oral Tablet carvedilol 3.125 mg ta blet carvedilol 3.125 mg tablet completed carvedilol 3.12 5 MG Oral Tablet [place] ([facility] [place]) Allopurinol 100 MG Oral Tablet allopurinol 100 mg tabl et allopurinol 100 mg tablet completed allopurinol 100 MG Oral Tablet [place] ([facility] [place]) Fluzone Quad (PF) 60 mcg (15 m cg x 4)/0.5 mL IM syringe INJECT INTRAMUSCULARLY IN THE LEFT ARM [id number] compl eted 0.5 ML influenza A virus A/ (H1N1) antigen 0.03 MG/ML / influenza A virus A/ (H3N2) antigen 0.03 MG/ML / influenza B virus B/ antigen 0.03 MG/ML / influenza B virus B/[facility] antigen 0.03 MG/ML Prefilled Syringe [Fluzone Quadrivalent ] [place] ([facility] [place]) 0.5 ML pneumococcal capsular polysacchar triston type [...] Prefilled Syringe [Pneumovax 23] [facility] ([facility] [place]) Sumatriptan 25 MG Oral Tablet sumatriptan 25 mg tablet sumat riptan 25 mg tablet completed sumatriptan 25 MG Oral Tablet [facility] ([facility]) doxycycline hyclate 100 MG Oral Tablet doxycycline hyc late 100 mg tablet doxycycline hyclate 100 mg tablet comp leted doxycycline hyclate 100 MG Oral Tablet [place] ([facility]) zonisamide 50 MG Oral Capsule zonisamide 50 mg capsule as needed zonisamide 50 mg capsule as needed completed z onisamide 50 MG Oral Capsule [facility] ([facility]) doxycycline hyclate 100 MG Oral Tablet doxycycline hyc late 100 mg tablet doxycycline hyclate 100 mg tablet comp leted doxycycline hyclate 100 MG Oral Tablet [facility] ([facility]) Naproxen 250 MG Oral Tablet naproxen 250 mg tablet as needed naproxen 250 mg tablet as needed completed napro xen 250 MG Oral Tablet [place] ([facility]) Naproxen 250 MG Oral Tablet naproxen 250 mg tablet as needed naproxen 250 mg tablet as needed completed napro xen 250 MG Oral Tablet [facility] ([facility]) Allopurinol 100 MG Oral Tablet allopurinol 100 mg tabl et allopurinol 100 mg tablet completed allopurinol 100 MG Oral Tablet [place] ([facility]) Allopurinol 100 MG Oral Tablet allopurinol 100 mg tabl et allopurinol 100 mg tablet completed allopurinol 100 MG Oral Tablet [place] ([facility]) Flucelvax Quad 60 mcg (15 mcg x 4)/0.5 mL intramuscular susp INJECT 0.5ML DIRECTED [id number] completed influenza A virus A/ (H3N2) antigen 0.03 MG/ML / influenza A virus A/[place] (H1N1) antigen 0.03 MG/ML / influenza B virus B/ antigen 0.03 MG/ML / influenza B virus B/[facility]/[id number] antigen 0.03 MG/ML Injectable Suspension [Flucelvax Quadrivalent ] [facility] ([facility] [place]) Oseltamivir 75 MG Oral Capsule oseltamivir 75 mg capsu le oseltamivir 75 mg capsule completed oseltamivir 75 MG Oral Capsule [facility] ([facility]) Naproxen 250 MG Oral Tablet naproxen 250 mg tablet as needed naproxen 250 mg tablet as needed completed napro xen 250 MG Oral Tablet [place] ([facility]) Sumatriptan 25 MG Oral Tablet sumatriptan 25 mg tablet sumat riptan 25 mg tablet completed sumatriptan 25 MG Oral Tablet [place] ([facility] [place]) Sumatriptan 25 MG Oral Tablet sumatriptan 25 mg tablet sumat riptan 25 mg tablet completed sumatriptan 25 MG Oral Tablet [place] ([facility]) Ondansetron 8 MG Oral Tablet ondansetron HCl 8 mg tabl et ondansetron HCl 8 mg tablet completed ondansetron 8 M G Oral Tablet [place] ([facility]) zonisamide 50 MG Oral Capsule zonisamide 50 mg capsule as needed zonisamide 50 mg capsule as needed completed z onisamide 50 MG Oral Capsule [facility] ([facility]) 24 HR Metformin hydrochloride 500 MG Ext ended Release Oral Tablet metformin ER 500 mg tablet,extended release 24 hr metformin ER 500 mg tablet,extended rele ase 24 hr completed 24 HR m etformin hydrochloride 500 MG Extended Release Oral Tablet [facility] ([facility]) Ondansetron 4 MG Oral Tablet ondansetron HCl 4 mg tabl et ondansetron HCl 4 mg tablet completed ondansetron 4 M G Oral Tablet [facility] ([facility]) Oseltamivir 75 MG Oral Capsule oseltamivir 75 mg capsu le oseltamivir 75 mg capsule completed oseltamivir 75 MG Oral Capsule [facility] ([facility]) 24 HR Metformin hydrochloride 500 MG Ext ended Release Oral Tablet metformin ER 500 mg tablet,extended release 24 hr metformin ER 500 mg tablet,extended rele ase 24 hr completed 24 HR m etformin hydrochloride 500 MG Extended Release Oral Tablet [facility] ([facility]) Oseltamivir 75 MG Oral Capsule oseltamivir 75 mg capsu le oseltamivir 75 mg capsule completed oseltamivir 75 MG Oral Capsule [place] ([facility] [place]) Amoxicillin 875 MG / Clavulanate 125 MG Oral Tablet amoxicillin 875 mg-potassium clavulanate 125 mg tablet amoxicillin 875 mg-potassium clavulanate 125 mg tablet completed amoxicillin 875 MG / clavulanate 125 MG Oral Tablet [place] ([facility] [place]) topiramate 25 MG Oral Tablet topiramate 25 mg tablet TAKE ONE TABLET BY MOUTH TWICE A DAY DIRECTED topiramate 25 mg tablet TAKE ONE TABLET BY MOUTH TWICE A DAY DIRECTED completed topira mate 25 MG Oral Tablet [place] ([facility] [place]) Divalproex Sodium 250 MG Delayed Release Oral Tablet divalproex 250 mg tablet,delayed release divalproex 250 mg tablet,delayed release completed divalproex sodium 250 MG Delayed Release Oral Tablet [facility] ([facility] [place]) meloxicam 7.5 MG Oral Tablet meloxicam 7.5 mg tablet meloxicam 7 .5 mg tablet completed meloxicam 7.5 MG Oral Tablet [place] ([facility] [place]) meloxicam 7.5 MG Oral Tablet meloxicam 7.5 mg tablet meloxicam 7 .5 mg tablet completed meloxicam 7.5 MG Oral Tablet [place] ([facility] [place]) Naproxen 250 MG Oral Tablet naproxen 250 mg tablet as needed naproxen 250 mg tablet as needed completed napro xen 250 MG Oral Tablet [place] ([facility] [place]) Acetaminophen 325 MG / Hydrocodone Juanita trate 7.5 MG Oral Tablet hydrocodone 7.5 mg-acetaminophen 325 mg tablet hydrocodone 7.5 mg-acetaminophen 325 mg tablet completed acetaminophen 325 MG / hydrocodone bitartrate 7.5 MG Oral Tablet [place] ([facility] [place]) Sumatriptan 25 MG Oral Tablet sumatriptan 25 mg tablet sumat riptan 25 mg tablet completed sumatriptan 25 MG Oral Tablet [place] ([facility] [place]) Ondansetron 4 MG Oral Tablet ondansetron HCl 4 mg tabl et ondansetron HCl 4 mg tablet completed ondansetron 4 M G Oral Tablet [place] ([facility] [place]) doxycycline hyclate 100 MG Oral Tablet doxycycline hyc late 100 mg tablet doxycycline hyclate 100 mg tablet comp leted doxycycline hyclate 100 MG Oral Tablet [place] ([facility] [place]) Divalproex Sodium 500 MG Delayed Release Oral Tablet divalproex 500 mg tablet,delayed release divalproex 500 mg tablet,delayed release completed divalproex sodium 500 MG Delayed Release Oral Tablet [place] ([facility] [place]) Fluzone Quad [id number] (PF) 60 mcg (15 m cg x 4)/0.5 mL IM syringe INJECT INTRAMUSCULARLY IN THE LEFT ARM [id number] compl eted 0.5 ML influenza A virus A/[place] (H1N1) antigen 0.03 MG/ML / influenza A virus A/ (H3N2) antigen 0.03 MG/ML / influenza B virus B/[place] antigen 0.03 MG/ML / influenza B virus B/[facility] antigen 0.03 MG/ML Prefilled Syringe [Fluzone Quadrivalent ] [facility] ([facility] [place]) Naproxen 250 MG Oral Tablet naproxen 250 mg tablet as needed naproxen 250 mg tablet as needed completed napro xen 250 MG Oral Tablet [place] ([facility] [place]) duloxetine 30 MG Delayed Release Oral Ca psule duloxetine 30 mg capsule,delayed release TAKE ONE CAPSULE BY MOUTH EVERY DAY duloxetine 30 mg capsule,delayed release TAKE ONE CAPSULE BY MOUTH EVERY DAY completed duloxetine 30 MG Delayed Release Oral Capsule [facility] ([facility] [place]) Amoxicillin 875 MG / Clavulanate 125 MG Oral Tablet amoxicillin 875 mg-potassium clavulanate 125 mg tablet amoxicillin 875 mg-potassium clavulanate 125 mg tablet completed amoxicillin 875 MG / clavulanate 125 MG Oral Tablet [place] ([facility] [place]) carvedilol 3.125 MG Oral Tablet carvedilol 3.125 mg ta blet carvedilol 3.125 mg tablet completed carvedilol 3.12 5 MG Oral Tablet [place] ([facility] [place]) Sumatriptan 25 MG Oral Tablet sumatriptan 25 mg tablet sumat riptan 25 mg tablet completed sumatriptan 25 MG Oral Tablet [place] ([facility] [place]) meloxicam 7.5 MG Oral Tablet meloxicam 7.5 mg tablet meloxicam 7 .5 mg tablet completed meloxicam 7.5 MG Oral Tablet [place] ([facility] [place]) Divalproex Sodium 500 MG Delayed Release Oral Tablet divalproex 500 mg tablet,delayed release divalproex 500 mg tablet,delayed release completed divalproex sodium 500 MG Delayed Release Oral Tablet [facility] ([facility] [place]) Naproxen 250 MG Oral Tablet naproxen 250 mg tablet as needed naproxen 250 mg tablet as needed completed napro xen 250 MG Oral Tablet [place] ([facility] [place]) Acetaminophen 325 MG / Hydrocodone Juanita trate 7.5 MG Oral Tablet hydrocodone 7.5 mg-acetaminophen 325 mg tablet hydrocodone 7.5 mg-acetaminophen 325 mg tablet completed acetaminophen 325 MG / hydrocodone bitartrate 7.5 MG Oral Tablet [place] ([facility] [place]) Sumatriptan 25 MG Oral Tablet sumatriptan 25 mg tablet sumat riptan 25 mg tablet completed sumatriptan 25 MG Oral Tablet [place] ([facility] [place]) icosapent ethyl 1000 MG Oral Capsule [Vascepa] Vascepa 1 gram capsule Vascepa 1 gram capsule completed i cosapent ethyl 1000 MG Oral Capsule [Vascepa] [facility] ([facility] [place]) Oseltamivir 75 MG Oral Capsule oseltamivir 75 mg capsu le oseltamivir 75 mg capsule completed oseltamivir 75 MG Oral Capsule [place] ([facility] [place]) Sumatriptan 25 MG Oral Tablet sumatriptan 25 mg tablet sumat riptan 25 mg tablet completed sumatriptan 25 MG Oral Tablet [place] ([facility] [place]) 0.5 ML pneumococcal capsular polysacchar triston type [...] Prefilled Syringe [Pneumovax 23] [facility] ([facility] [place]) Acetaminophen 325 MG / Hydrocodone Juanita trate 7.5 MG Oral Tablet hydrocodone 7.5 mg-acetaminophen 325 mg tablet hydrocodone 7.5 mg-acetaminophen 325 mg tablet completed acetaminophen 325 MG / hydrocodone bitartrate 7.5 MG Oral Tablet [place] ([facility] [place]) Flucelvax Quad [id number] 60 mcg (15 mcg x 4)/0.5 mL IM suspension [id number] completed influenza A vi jeremías A/[place] (H3N2) antigen 0.03 MG/ML / influenza A virus A//[id number] (H1N1) antigen 0.03 MG/ML / influenza B virus B/ antigen 0.03 MG/ML / influenza B virus B/[place]/[id number] antigen 0.03 MG/ML Injectable Suspension [facility] ([facility] [place]) Ondansetron 4 MG Disintegrating Oral Tab let ondansetron [address] ONE TABLET BY MOUTH THREE TIMES A DAY FOR 7 DAYS ondansetron [address] ONE TABLET BY MOUTH THREE TIMES A DAY FOR 7 DAYS completed ondansetron 4 MG Disintegrating Oral Tablet [place] ([facility] [place]) Amoxicillin 875 MG / Clavulanate 125 MG Oral Tablet amoxicillin 875 mg-potassium clavulanate 125 mg tablet amoxicillin 875 mg-potassium clavulanate 125 mg tablet completed amoxicillin 875 MG / clavulanate 125 MG Oral Tablet [place] ([facility] [place]) Divalproex Sodium 500 MG Delayed Release Oral Tablet divalproex 500 mg tablet,delayed release divalproex 500 mg tablet,delayed release completed divalproex sodium 500 MG Delayed Release Oral Tablet [place] ([facility] [place]) Simvastatin 20 MG Oral Tablet simvastatin 20 mg tablet one by mouth once daily simvastatin 20 mg tablet one by mouth once daily completed simvastatin 20 MG Oral Tablet [place] ([facility] [place]) Amoxicillin 875 MG / Clavulanate 125 MG Oral Tablet amoxicillin 875 mg-potassium clavulanate 125 mg tablet amoxicillin 875 mg-potassium clavulanate 125 mg tablet completed amoxicillin 875 MG / clavulanate 125 MG Oral Tablet [place] ([facility] [place]) Simvastatin 20 MG Oral Tablet simvastatin 20 mg tablet one by mouth once daily simvastatin 20 mg tablet one by mouth once daily completed simvastatin 20 MG Oral Tablet [place] ([facility] [place]) Acetaminophen 325 MG / Hydrocodone Juanita trate 5 MG Oral Tablet hydrocodone 5 mg- acetaminophen 325 mg tablet as needed hydrocodone 5 mg-acetaminophen 325 mg tablet as needed completed acetaminophen 325 MG / hydrocodone bitartrate 5 MG Oral Tablet [place] ([facility] [place]) Acetaminophen 325 MG / Hydrocodone Juanita trate 5 MG Oral Tablet hydrocodone 5 mg- acetaminophen 325 mg tablet as needed hydrocodone 5 mg-acetaminophen 325 mg tablet as needed completed acetaminophen 325 MG / hydrocodone bitartrate 5 MG Oral Tablet [place] ([facility] [place]) Insurance Providers Payer name Policy type / Coverage type Policy ID Covered republican ID Covered republican's relationship to lyles Policy Lyles Plan Information STATE INSURANCE FUND [id number] SP [id number] [facility] [id number] SP [id number] [facility] ISREAL STALLINGS [id number] SP [id number] STATE INSURANCE FUND [id number] SP [id number] [facility] [id number] SP [id number] [employer] [id number] SP [id number] [employer] EMPIRE RICK DIV [id number] SP [id number] BC[employer] EMPIRE RICK DIV [id number] SP [id number] [facility] [id number] SP [id number] [facility] [id number] SP [id number] [facility] [id number] SP [id number] BCBS EMPIRE RICK DIV [id number] SP [id number] BLUE CARD 1 [id number] [facility] [id number] SP [id number] BCBS EMPIRE RICK DIV [id number] SP [id number] [employer]IRE PLAN CLAIMS 1 [id number] 1 [id number] Workers 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 WorkComp Health Claim [id number] Emplo barrientos [id number] Work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 [place] WorkComp Health Claim [id number] Employee [id number] Needs Workers Comp Information WorkComp Health Claim [id number] Employee [id number] Workers 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 WorkComp Health Claim [id number] Emplo barrientos [id number] [employer] [id number] ..[id number] .[id number] Self [id number] [facility] Health Maintenance Organization (O) [id number] Self [id number] [facility] [employer] [id number] ..1.135867.3.227 .99.1037.82925.0 Self [id number] [facility] [employer] [id number] ..1.527554.3.227 .99.1037.16142.0 Self [id number] [facility] [employer] [id number] .1.943565.3.227 .99.1037.79206.0 Self [id number] [employer] [id number] .1.763848.3.227 .99.1037.30143.0 Self [id number] [facility] Health Maintenance Organization (O) [id number] Self [id number] [facility] [employer] [id number] 2.16.840.1.077488.3.227 .99.1037.06826.0 Self [id number] [facility] [employer] [id number] 2.16.840.1.231801.3.227 .99.1037.52477.0 Self [id number] [facility] [employer] [id number] 2.16840.1.865867.3.227 .99.1037.95471.0 Self [id number] [facility] [employer] [id number] 2.16840.1.949773.3.227.99.1767.1467.0 Self [id number] [facility] [employer] [id number] 2.16840.1.211264.3.227.99.1767.1467.0 Self [id number] [facility] Maintenance Organization (O) [id number].991.970637.0 Self [id number] [employer] [id number] 2.16840.1.776488.3.227 .99.1037.33984.0 Self [id number] [facility] [employer] [id number] 2.16840.1.583520.3.227.99.1767.1467.0 Self [id number] [employer] [id number] 2.16840.1.275517.3.227.99.1767.1467.0 Self [id number] [facility] [employer] [id number] 2.16840.1.242328.3.227.99.1767.1467.0 Self [id number] [facility] [employer] [id number] 2.16840.1.113620.3.227.99.1767.1467.0 Self [id number] [facility] [employer] [id number] 2.16840.1.942212.3.227.99.1767.1467.0 Self [id number] [facility] [employer] [id number] 2.16.840.1.339392.3.227.99.1767.1467.0 Self [id number] [facility] Organization (HMO) [id number]9.991.196130.0 Self [id number] [facility] [employer] [id number] 2.16840.1.659084.3.227 .99.1037.63623.0 Self [id number] [facility] [employer] [id number] 2.16840.1.807132.3.227.99.1767.1467.0 Self [id number] [facility] O [id number] S [id number] [facility] INSURANCE [facility] O [id number] S [id number] [facility] Health Maintenance Organization (O) [id number].991.051151.0 Self [id number] [facility] [employer] [employer] [id number] 2.16840.1.862525.3.227.99.1767.1467.0 Self [id number] [facility] [employer] [id number] 2.16840.1.879894.3.227 .99.1037.55893.0 Self [id number] [facility] [place] [employer] [id number] 2.16840.1.900004.3.227.99.1767.1467.0 Self [id number] [facility] [employer] [employer] [id number] 2.16840.1.043049.3.227.99.1767.1467.0 Self [id number] [facility] [employer] [id number] 2.16840.1.283985.3.227.99.1767.1467.0 Self [id number] [facility] Health Maintenance Organization (O) 8 [id number] 2.16.840.1.107999.3.227.99.991.263222.0 Self [id number] [facility] [place] [employer] [id number] 2.16.840.1.336624.3.227.99.1767.1467.0 Self [id number] [facility] [place] [employer] [id number] 2.16.840.1.866718.3.227.99.1767.1467.0 Self [id number] [facility] [place] [employer] [id number] 2.16.840.1.934727.3.227.99.1767.1467.0 Self [id number] [place] [facility] Health Maintenance Organization (HMO) 8 [id number] 2.16.840.1.789374.3.227.99.991.518129.0 Self [id number] [facility] [employer] [id number] 2.16.840.1.164691.3.227 .99.1037.95235.0 Self [id number] [facility] Health Maintenance Organization (HMO) [id number] Self [facility] [employer] [employer] [id number] Self [facility] [employer] 2.16.840.1.178888.3.227.99.1037 .52875.0 Self [place] ([place], [place]) Medicare Primary [id number] Self [facility] [id number] Self SELF PAY 2 UNAVAILABLE 1 UNAVAILA BLE STATE INSURANCE FUND [id number] SP [id number] STATE INSURANCE FUND [id number] S [id number] [facility] INSURANCE FUND [id number] S [id number] STATE INSURANCE FUND [id number] SP [id number] STATE INSURANCE FUND [id number] SP [id number] STATE INSURANCE FUND [id number] SP [id number] STATE INSURANCE FUND [id number] SP [id number] [facility] ([facility]) O [id number] S [id number] [employer] O [id number] S [id number] [facility] [place] [employer] [id number] Self [id number] [facility] [employer] [id number] Self [id number] [facility] [id number] Self [id number] [facility] [id number] SP [id number] [facility] [id number] Self [id number] [facility] Commercial [id number] Self [id number] [facility] [id number] Self [id number] [facility] Health Maintenance Organization (HMO) [id number] Self [id number] [employer] F [id number] SELF [id number] [facility] Health Maintenance Organization (HMO) [id number] Self [id number] [facility] [id number] Self [id number] Problems, Conditions, and Diagnoses Code Display Name Description Problem Type Effective Dates Data Source(s) G43.709 [id number] Chronic migraine without aura or status m igrainosus Problem 01/08/2021 12:00:00 AM EDT eCW1 ([facility]) Surgeries/Procedures Procedure Description Date Indications Data Source(s) MANUAL THERAPY TQS 1/> REGIONS EACH 15 MINUTES 021 12:00:00 AM EST [facility] ([facility] ) APPLICATION MODALITY 1/> AREAS HOT/COLD PACKS 07/20/20 12:00:00 AM EST [facility] ([facility] ) APPL MODALITY 1/> AREAS ELEC STIMJ EA 15 MIN 1 12:00:00 AM EST [facility] ([facility]) THERAPEUTIC PX 1/> AREAS EACH 15 MIN EXERCISES 12:00:00 AM EST [facility] ([facility]) APPLICATION MODALITY 1/> AREAS HOT/COLD PACKS 07/16/20 21 12:00:00 AM EST [facility] ([facility]) APPL MODALITY 1/> AREAS ELEC STIMJ EA 15 MIN 12:00:00 AM EST [facility] ([facility]) THERAPEUTIC PX 1/> AREAS EACH 15 MIN EXERCISES 12:00:00 AM EST [facility] ([facility] ) MANUAL THERAPY TQS 1/> REGIONS EACH 15 MINUTES 12:00:00 AM EST [facility] ([facility] ) Re-Eval Of PT Established Plan Of Care 20Mins Face To Face P T/Fam 07/10/2021 12:00:00 AM EDT [facility] ([facility]) APPL MODALITY 1/> AREAS ELEC STIMJ EA 15 MIN 12:00:00 AM EDT [facility] ([facility]) APPLICATION MODALITY 1/> AREAS HOT/COLD PACKS 07/10/20 21 12:00:00 AM EDT [facility] ([facility]) MANUAL THERAPY TQS 1/> REGIONS EACH 15 MINUTES 12:00:00 AM EDT [facility] ([facility]) APPLICATION MODALITY 1/> AREAS HOT/COLD PACKS 05/15/20 21 12:00:00 AM EDT [facility] ([facility]) APPL MODALITY 1/> AREAS ELEC STIMJ EA 15 MIN 12:00:00 AM EDT [facility] ([facility]) THERAPEUTIC PX 1/> AREAS EACH 15 MIN EXERCISES 021 12:00:00 AM EDT [facility] ([facility]) MANUAL THERAPY TQS 1/> REGIONS EACH 15 MINUTES 021 12:00:00 AM EDT [facility] ([facility]) THERAPEUTIC PX 1/> AREAS EACH 15 MIN EXERCISES 021 12:00:00 AM EDT [facility] ([facility]) APPL MODALITY 1/> AREAS ELEC STIMJ EA 15 MIN 1 12:00:00 AM EDT [facility] ([facility]) APPLICATION MODALITY 1/> AREAS HOT/COLD PACKS 05/08/20 21 12:00:00 AM EDT [facility] ([facility]) MANUAL THERAPY TQS 1/> REGIONS EACH 15 MINUTES 021 12:00:00 AM EDT [facility] ([facility]) APPLICATION MODALITY 1/> AREAS HOT/COLD PACKS 05/01/20 21 12:00:00 AM EDT [facility] ([facility]) APPL MODALITY 1/> AREAS ELEC STIMJ EA 15 MIN 1 12:00:00 AM EDT [facility] ([facility]) THERAPEUTIC PX 1/> AREAS EACH 15 MIN EXERCISES 021 12:00:00 AM EDT [facility] ([facility]) MANUAL THERAPY TQS 1/> REGIONS EACH 15 MINUTES 021 12:00:00 AM EDT [facility] ([facility]) APPL MODALITY 1/> AREAS ELEC STIMJ EA 15 MIN 1 12:00:00 AM EDT [facility] ([facility]) THERAPEUTIC PX 1/> AREAS EACH 15 MIN EXERCISES 021 12:00:00 AM EDT [facility] ([facility]) MANUAL THERAPY TQS 1/> REGIONS EACH 15 MINUTES 021 12:00:00 AM EDT [facility] ([facility]) APPL MODALITY 1/> AREAS ELEC STIMJ EA 15 MIN 1 12:00:00 AM EDT [facility] ([facility]) THERAPEUTIC PX 1/> AREAS EACH 15 MIN EXERCISES 021 12:00:00 AM EDT [facility] ([facility]) MANUAL THERAPY TQS 1/> REGIONS EACH 15 MINUTES 021 12:00:00 AM EDT [facility] ([facility]) MANUAL THERAPY TQS 1/> REGIONS EACH 15 MINUTES 021 12:00:00 AM EDT [facility] ([facility]) Re-Eval Of PT Established Plan Of Care 20Mins Face To Face P T/Fam 04/10/2021 12:00:00 AM EDT [facility] ([facility]) OFFICE OUTPATIENT VISIT 25 MINUTES 02/20/2021 12:00:00 AM EDT [facility] ([facility] ) APPLICATION MODALITY 1/> AREAS HOT/COLD PACKS 01/17/20 21 12:00:00 AM EDT [facility] ([facility] ) APPL MODALITY 1/> AREAS ELEC STIMJ EA 15 MIN 12:00:00 AM EDT [facility] ([facility] ) THERAPEUTIC PX 1/> AREAS EACH 15 MIN EXERCISES 12:00:00 AM EDT [facility] ([facility] ) MANUAL THERAPY TQS 1/> REGIONS EACH 15 MINUTES 12:00:00 AM EDT [facility] ([facility] ) Re-Eval Of PT Established Plan Of Care 20Mins Face To Face P T/Fam 01/16/2021 12:00:00 AM EDT [facility] ([facility] ) Therapeutic, Prophylactic Or Diagnostic Injection Subq/Im 01/15/2021 12:00:00 AM EDT [facility] ([facility]) APPLICATION MODALITY 1/> AREAS HOT/COLD PACKS 01/10/20 21 12:00:00 AM EDT [facility] ([facility] ) THERAPEUTIC PX 1/> AREAS EACH 15 MIN EXERCISES 12:00:00 AM EDT [facility] ([facility] ) MANUAL THERAPY TQS 1/> REGIONS EACH 15 MINUTES 021 12:00:00 AM EDT [facility] ([facility] ) APPLICATION MODALITY 1/> AREAS HOT/COLD PACKS 01/03/20 21 12:00:00 AM EDT [facility] ([facility] ) MANUAL THERAPY TQS 1/> REGIONS EACH 15 MINUTES 021 12:00:00 AM EDT [facility] ([facility] ) APPLICATION MODALITY 1/> AREAS HOT/COLD PACKS 12/27/19 21 12:00:00 AM EDT [facility] ([facility] ) MANUAL THERAPY TQS 1/> REGIONS EACH 15 MINUTES 021 12:00:00 AM EDT [facility] ([facility] ) Physical Therapy Eval - Mod Complexity 12/19/2020 12:0 0:00 AM EDT [facility] ([facility]) OFFICE OUTPATIENT VISIT 40 MINUTES 12/02/2020 12:00:00 AM EDT [facility] ([facility]) Therapeutic, Prophylactic Or Diagnostic Injection Subq/Im 11/07/2020 12:00:00 AM EST [facility] ([facility]) OFFICE OUTPATIENT VISIT 40 MINUTES 09/10/2020 12:00:00 AM EST [facility] ([facility]) Results ID Date Data Source [id number] 02/11/2021 11:18:00 AM EDT [facility] Name Value Range Interpretation Code Description Data Heena rce(s) Supporting Document(s) SARS-CoV-2 (COVID-19) RNA [Presence] in Respiratory specimen by ALEKSANDR with probe detection Not Detected [facility] This lab was ordered by [facility] and reported by [facility]. ID Date Data Source [id number] 02/11/2021 10:28:00 AM EDT [facility] Name Value Range Interpretation Code Description Data Heena rce(s) Supporting Document(s) SARS COVID ANTIGEN NEGATIVE [facility] This lab was ordered by [facility] nd reported by [facility]. ID Date Data Source [id number] 12/01/2020 12:00:00 AM EDT [facility] ([facility]) Name Value Range Interpretation Code Description Data Heena rce(s) Supporting Document(s) SARS-CoV-2 (COVID-19) RNA [Presence] in Respiratory specimen by ALEKSANDR with probe detection negative negative Sars-cov-2 [facility] ([facility] [place]) ID Date Data Source [id number] 12/01/2020 12:00:00 AM EDT [facility] ([facility]) Name Value Range Interpretation Code Description Data Heena rce(s) Supporting Document(s) ID Date Data Source [id number] 12/01/2020 12:00:00 AM EDT [facility] ([facility] [place]) Name Value Range Interpretation Code Description Data Heena rce(s) Supporting Document(s) SARS-CoV-2 (COVID-19) RNA [Presence] in Respiratory specimen by ALEKSANDR with probe detection negative negative Sars-cov-2 [facility] ([facility]) ID Date Data Source [id number] 12/01/2020 12:00:00 AM EDT [place] ([facility]) Name Value Range Interpretation Code Description Data Heena rce(s) Supporting Document(s) ID Date Data Source [id number] 12/01/2020 12:00:00 AM EDT [facility] ([facility]) Name Value Range Interpretation Code Description Data Heena rce(s) Supporting Document(s) SARS-CoV-2 (COVID-19) RNA [Presence] in Respiratory specimen by ALEKSANDR with probe detection negative negative Sars-cov-2 [facility] ([facility]) ID Date Data Source [id number] 12/01/2020 12:00:00 AM EDT [facility] ([facility]) Name Value Range Interpretation Code Description Data Heena rce(s) Supporting Document(s) ID Date Data Source [id number] 12/01/2020 12:00:00 AM EDT [facility] ([facility]) Name Value Range Interpretation Code Description Data Heena rce(s) Supporting Document(s) ID Date Data Source [id number] 12/01/2020 12:00:00 AM EDT [facility] ([facility]) Name Value Range Interpretation Code Description Data Heena rce(s) Supporting Document(s) SARS-CoV-2 (COVID-19) RNA [Presence] in Respiratory specimen by ALEKSANDR with probe detection negative negative Sars-cov-2 [facility] ([facility]) ID Date Data Source [id number] 12/01/2020 12:00:00 AM EDT [facility] ([facility]) Name Value Range Interpretation Code Description Data Heena rce(s) Supporting Document(s) ID Date Data Source [id number] 12/01/2020 12:00:00 AM EDT [facility] ([facility]) Name Value Range Interpretation Code Description Data Heena rce(s) Supporting Document(s) SARS-CoV-2 (COVID-19) RNA [Presence] in Respiratory specimen by ALEKSANDR with probe detection negative negative Sars-cov-2 [facility] ([facility]) ID Date Data Source [id number] 12/01/2020 12:00:00 AM EDT [facility] ([facility]) Name Value Range Interpretation Code Description Data Heena rce(s) Supporting Document(s) ID Date Data Source [id number] 12/01/2020 12:00:00 AM EDT [facility] ([facility]) Name Value Range Interpretation Code Description Data Heena rce(s) Supporting Document(s) SARS-CoV-2 (COVID-19) RNA [Presence] in Respiratory specimen by ALEKSANDR with probe detection negative negative Sars-cov-2 [facility] ([facility]) ID Date Data Source [id number] 12/01/2020 12:00:00 AM EDT [facility] ([facility]) Name Value Range Interpretation Code Description Data Heena rce(s) Supporting Document(s) ID Date Data Source [id number] 12/01/2020 12:00:00 AM EDT [facility] Name Value Range Interpretation Code Description Data Heena rce(s) Supporting Document(s) SARS-CoV-2 NEGATIVE [facility] This lab was ordered by [facility] and reported by [facility]. ID Date Data Source [id number] 12/01/2020 12:00:00 AM EDT [facility] ([facility]) Name Value Range Interpretation Code Description Data Heena rce(s) Supporting Document(s) SARS-CoV-2 (COVID-19) RNA [Presence] in Respiratory specimen by ALEKSANDR with probe detection negative negative Sars-cov-2 [facility] ([facility]) ID Date Data Source [id number] 09/10/2020 08:56:00 AM EST MED[facility] ([facility]) Name Value Range Interpretation Code Description Data Heena rce(s) Supporting Document(s) Glucose [Mass/volume] in Serum or Plasma 140 [facility] ([facility]) ID Date Data Source [id number] 09/08/2020 12:00:00 AM EST [facility] ([facility]) Name Value Range Interpretation Code Description Data Heena rce(s) Supporting Document(s) SARS-CoV-2 (COVID-19) RNA [Presence] in Respiratory specimen by ALEKSANDR with probe detection negative negative Sars-cov-2 [facility] ([facility]) ID Date Data Source [id number] 09/08/2020 12:00:00 AM EST [facility] ([facility]) Name Value Range Interpretation Code Description Data Heena rce(s) Supporting Document(s) ID Date Data Source [id number] 09/08/2020 12:00:00 AM EST [facility] ([facility]) Name Value Range Interpretation Code Description Data Heena rce(s) Supporting Document(s) SARS-CoV-2 (COVID-19) RNA [Presence] in Respiratory specimen by ALEKSANDR with probe detection negative negative Sars-cov-2 [facility] ([facility]) ID Date Data Source [id number] 09/08/2020 12:00:00 AM EST [facility] ([facility]) Name Value Range Interpretation Code Description Data Heena rce(s) Supporting Document(s) ID Date Data Source [id number] 09/08/2020 12:00:00 AM EST [facility] ([facility]) Name Value Range Interpretation Code Description Data Heena rce(s) Supporting Document(s) SARS-CoV-2 (COVID-19) RNA [Presence] in Respiratory specimen by ALEKSANDR with probe detection negative negative Sars-cov-2 [facility] ([facility]) ID Date Data Source [id number] 09/08/2020 12:00:00 AM EST [facility] ([facility]) Name Value Range Interpretation Code Description Data Heena rce(s) Supporting Document(s) ID Date Data Source [id number] 09/08/2020 12:00:00 AM EST [facility] ([facility]) Name Value Range Interpretation Code Description Data Heena rce(s) Supporting Document(s) SARS-CoV-2 (COVID-19) RNA [Presence] in Respiratory specimen by ALEKSANDR with probe detection negative negative Sars-cov-2 [facility] ([facility]) ID Date Data Source [id number] 09/08/2020 12:00:00 AM EST [facility] ([facility]) Name Value Range Interpretation Code Description Data Heena rce(s) Supporting Document(s) ID Date Data Source [id number] 09/08/2020 12:00:00 AM EST [facility] ([facility]) Name Value Range Interpretation Code Description Data Heena rce(s) Supporting Document(s) SARS-CoV-2 (COVID-19) RNA [Presence] in Respiratory specimen by ALEKSANDR with probe detection negative negative Sars-cov-2 [facility] ([facility]) ID Date Data Source [id number] 09/08/2020 12:00:00 AM EST [facility] ([facility]) Name Value Range Interpretation Code Description Data Heena rce(s) Supporting Document(s) ID Date Data Source [id number] 09/08/2020 12:00:00 AM EST [facility] ([facility]) Name Value Range Interpretation Code Description Data Heena rce(s) Supporting Document(s) SARS-CoV-2 (COVID-19) RNA [Presence] in Respiratory specimen by ALEKSANDR with probe detection negative negative Sars-cov-2 [facility] ([facility]) ID Date Data Source [id number] 09/08/2020 12:00:00 AM EST [facility] ([facility]) Name Value Range Interpretation Code Description Data Heena rce(s) Supporting Document(s) ID Date Data Source [id number] 09/08/2020 12:00:00 AM EST [facility] ([facility]) Name Value Range Interpretation Code Description Data Heena rce(s) Supporting Document(s) SARS-CoV-2 (COVID-19) RNA [Presence] in Respiratory specimen by ALEKSANDR with probe detection negative negative Sars-cov-2 [facility] ([facility]) ID Date Data Source [id number] 09/08/2020 12:00:00 AM EST [facility] ([facility]) Name Value Range Interpretation Code Description Data Heena rce(s) Supporting Document(s) ID Date Data Source [id number] 09/08/2020 12:00:00 AM EST [facility] Name Value Range Interpretation Code Description Data Heena rce(s) Supporting Document(s) SARS-CoV-2 NEGATIVE [facility] This lab was ordered by [facility] and reported by [facility]. ID Date Data Source [id number] 09/08/2020 12:00:00 AM EST [facility] ([facility]) Name Value Range Interpretation Code Description Data Heena rce(s) Supporting Document(s) SARS-CoV-2 (COVID-19) RNA [Presence] in Respiratory specimen by ALEKSANDR with probe detection negative negative Sars-cov-2 [facility] ([facility]) ID Date Data Source [id number] 09/08/2020 12:00:00 AM EST [facility] ([facility]) Name Value Range Interpretation Code Description Data Heena rce(s) Supporting Document(s) ID Date Data Source [id number] 09/08/2020 12:00:00 AM EST [facility] ([facility]) Name Value Range Interpretation Code Description Data Heena rce(s) Supporting Document(s) SARS-CoV-2 (COVID-19) RNA [Presence] in Respiratory specimen by ALEKSANDR with probe detection negative negative Sars-cov-2 [facility] ([facility]) ID Date Data Source [id number] 09/08/2020 12:00:00 AM EST [facility] ([facility]) Name Value Range Interpretation Code Description Data Heena rce(s) Supporting Document(s) ID Date Data Source [id number] 09/08/2020 12:00:00 AM EST [facility] ([facility]) Name Value Range Interpretation Code Description Data Heena rce(s) Supporting Document(s) SARS-CoV-2 (COVID-19) RNA [Presence] in Respiratory specimen by ALEKSANDR with probe detection negative negative Sars-cov-2 [facility] ([facility]) ID Date Data Source [id number] 09/08/2020 12:00:00 AM EST [facility] ([facility]) Name Value Range Interpretation Code Description Data Heena rce(s) Supporting Document(s) ID Date Data Source [id number] 09/08/2020 12:00:00 AM EST [facility] ([facility]) Name Value Range Interpretation Code Description Data Heena rce(s) Supporting Document(s) SARS-CoV-2 (COVID-19) RNA [Presence] in Respiratory specimen by ALEKSANDR with probe detection negative negative Sars-cov-2 [facility] ([facility]) ID Date Data Source [id number] 09/08/2020 12:00:00 AM EST [facility] ([facility]) Name Value Range Interpretation Code Description Data Heena rce(s) Supporting Document(s) ID Date Data Source [id number] 08/13/2020 12:00:00 AM EST [facility] ([facility]) Name Value Range Interpretation Code Description Data Heena rce(s) Supporting Document(s) SARS-CoV-2 (COVID-19) RNA [Presence] in Respiratory specimen by ALEKSANDR with probe detection negative negative Sars-cov-2 [facility] ([facility]) ID Date Data Source [id number] 08/13/2020 12:00:00 AM EST [facility] ([facility]) Name Value Range Interpretation Code Description Data Heena rce(s) Supporting Document(s) ID Date Data Source [id number] 08/13/2020 12:00:00 AM EST [facility] ([facility]) Name Value Range Interpretation Code Description Data Heena rce(s) Supporting Document(s) SARS-CoV-2 (COVID-19) RNA [Presence] in Respiratory specimen by ALEKSANDR with probe detection negative negative Sars-cov-2 [facility] ([facility]) ID Date Data Source [id number] 08/13/2020 12:00:00 AM EST [facility] ([facility]) Name Value Range Interpretation Code Description Data Heena rce(s) Supporting Document(s) ID Date Data Source [id number] 08/13/2020 12:00:00 AM EST [facility] ([facility]) Name Value Range Interpretation Code Description Data Heena rce(s) Supporting Document(s) SARS-CoV-2 (COVID-19) RNA [Presence] in Respiratory specimen by ALEKSANDR with probe detection negative negative Sars-cov-2 [facility] ([facility]) ID Date Data Source [id number] 08/13/2020 12:00:00 AM EST [place] ([facility]) Name Value Range Interpretation Code Description Data Heena rce(s) Supporting Document(s) ID Date Data Source [id number] 08/13/2020 12:00:00 AM EST [place] ([facility]) Name Value Range Interpretation Code Description Data Heena rce(s) Supporting Document(s) SARS-CoV-2 (COVID-19) RNA [Presence] in Respiratory specimen by ALEKSANDR with probe detection negative negative Sars-cov-2 [facility] ([facility]) ID Date Data Source [id number] 08/13/2020 12:00:00 AM EST [place] ([facility]) Name Value Range Interpretation Code Description Data Heena rce(s) Supporting Document(s) ID Date Data Source [id number] 08/13/2020 12:00:00 AM EST [place] ([facility]) Name Value Range Interpretation Code Description Data Heena rce(s) Supporting Document(s) SARS-CoV-2 (COVID-19) RNA [Presence] in Respiratory specimen by ALEKSANDR with probe detection negative negative Sars-cov-2 [facility] ([facility]) ID Date Data Source [id number] 08/13/2020 12:00:00 AM EST [place] ([facility]) Name Value Range Interpretation Code Description Data Heena rce(s) Supporting Document(s) ID Date Data Source [id number] 08/13/2020 12:00:00 AM EST [facility] ([facility]) Name Value Range Interpretation Code Description Data Heena rce(s) Supporting Document(s) SARS-CoV-2 (COVID-19) RNA [Presence] in Respiratory specimen by ALEKSANDR with probe detection negative negative Sars-cov-2 [facility] ([facility]) ID Date Data Source [id number] 08/13/2020 12:00:00 AM EST [facility] ([facility]) Name Value Range Interpretation Code Description Data Heena rce(s) Supporting Document(s) ID Date Data Source [id number] 08/13/2020 12:00:00 AM EST [facility] ([facility]) Name Value Range Interpretation Code Description Data Heena rce(s) Supporting Document(s) SARS-CoV-2 (COVID-19) RNA [Presence] in Respiratory specimen by ALEKSANDR with probe detection negative negative Sars-cov-2 [facility] ([facility]) ID Date Data Source [id number] 08/13/2020 12:00:00 AM EST [place] ([facility]) Name Value Range Interpretation Code Description Data Heena rce(s) Supporting Document(s) ID Date Data Source [id number] 08/13/2020 12:00:00 AM EST [facility] ([facility]) Name Value Range Interpretation Code Description Data Heena rce(s) Supporting Document(s) SARS-CoV-2 (COVID-19) RNA [Presence] in Respiratory specimen by ALEKSANDR with probe detection negative negative Sars-cov-2 [facility] ([facility]) ID Date Data Source [id number] 08/13/2020 12:00:00 AM EST [facility] ([facility]) Name Value Range Interpretation Code Description Data Heena rce(s) Supporting Document(s) ID Date Data Source [id number] 08/13/2020 12:00:00 AM EST [facility] ([facility]) Name Value Range Interpretation Code Description Data Heena rce(s) Supporting Document(s) SARS-CoV-2 (COVID-19) RNA [Presence] in Respiratory specimen by ALEKSANDR with probe detection negative negative Sars-cov-2 [facility] ([facility]) ID Date Data Source [id number] 08/13/2020 12:00:00 AM EST [facility] ([facility]) Name Value Range Interpretation Code Description Data Heena rce(s) Supporting Document(s) ID Date Data Source [id number] 08/13/2020 12:00:00 AM EST [facility] Name Value Range Interpretation Code Description Data Heena rce(s) Supporting Document(s) SARS-CoV-2 [facility] This lab was ordered by [facility] and reported by [facility]. ID Date Data Source [id number] 08/13/2020 12:00:00 AM EST [facility] ([facility]) Name Value Range Interpretation Code Description Data Heena rce(s) Supporting Document(s) SARS-CoV-2 (COVID-19) RNA [Presence] in Respiratory specimen by ALEKSANDR with probe detection negative negative Sars-cov-2 [facility] ([facility]) ID Date Data Source [id number] 08/13/2020 12:00:00 AM EST [facility] ([facility]) Name Value Range Interpretation Code Description Data Heena rce(s) Supporting Document(s) ID Date Data Source [id number] 08/13/2020 12:00:00 AM EST [facility] ([facility]) Name Value Range Interpretation Code Description Data Heena rce(s) Supporting Document(s) SARS-CoV-2 (COVID-19) RNA [Presence] in Respiratory specimen by ALEKSANDR with probe detection negative negative Sars-cov-2 [facility] ([facility]) ID Date Data Source [id number] 08/13/2020 12:00:00 AM EST [facility] ([facility]) Name Value Range Interpretation Code Description Data Heena rce(s) Supporting Document(s) ID Date Data Source [id number] 08/13/2020 12:00:00 AM EST [facility] ([facility]) Name Value Range Interpretation Code Description Data Heena rce(s) Supporting Document(s) SARS-CoV-2 (COVID-19) RNA [Presence] in Respiratory specimen by ALEKSANDR with probe detection negative negative Sars-cov-2 [facility] ([facility]) ID Date Data Source [id number] 08/13/2020 12:00:00 AM EST [facility] ([facility]) Name Value Range Interpretation Code Description Data Heena rce(s) Supporting Document(s) ID Date Data Source [id number] 08/13/2020 12:00:00 AM EST [facility] ([facility]) Name Value Range Interpretation Code Description Data Heena rce(s) Supporting Document(s) SARS-CoV-2 (COVID-19) RNA [Presence] in Respiratory specimen by ALEKSANDR with probe detection negative negative Sars-cov-2 [facility] ([facility]) ID Date Data Source [id number] 08/13/2020 12:00:00 AM EST [facility] ([facility]) Name Value Range Interpretation Code Description Data Heena rce(s) Supporting Document(s) ID Date Data Source [id number] 06/16/2020 12:00:00 AM EDT [facility] ([facility]) Name Value Range Interpretation Code Description Data Heena rce(s) Supporting Document(s) SARS-CoV-2 (COVID-19) RNA [Presence] in Respiratory specimen by ALEKSANDR with probe detection negative negative Sars-cov-2 [facility] ([facility]) ID Date Data Source [id number] 06/16/2020 12:00:00 AM EDT [facility] ([facility]) Name Value Range Interpretation Code Description Data Heena rce(s) Supporting Document(s) ID Date Data Source [id number] 06/16/2020 12:00:00 AM EDT [facility] ([facility]) Name Value Range Interpretation Code Description Data Heena rce(s) Supporting Document(s) SARS-CoV-2 (COVID-19) RNA [Presence] in Respiratory specimen by ALEKSANDR with probe detection negative negative Sars-cov-2 [facility] ([facility]) ID Date Data Source [id number] 06/16/2020 12:00:00 AM EDT [facility] ([facility]) Name Value Range Interpretation Code Description Data Heena rce(s) Supporting Document(s) ID Date Data Source [id number] 06/16/2020 12:00:00 AM EDT [facility] ([facility]) Name Value Range Interpretation Code Description Data Heena rce(s) Supporting Document(s) SARS-CoV-2 (COVID-19) RNA [Presence] in Respiratory specimen by ALEKSANDR with probe detection negative negative Sars-cov-2 [facility] ([facility]) ID Date Data Source [id number] 06/16/2020 12:00:00 AM EDT [place] ([facility]) Name Value Range Interpretation Code Description Data Heena rce(s) Supporting Document(s) ID Date Data Source [id number] 06/16/2020 12:00:00 AM EDT [facility] ([facility]) Name Value Range Interpretation Code Description Data Heena rce(s) Supporting Document(s) SARS-CoV-2 (COVID-19) RNA [Presence] in Respiratory specimen by ALEKSANDR with probe detection negative negative Sars-cov-2 [facility] ([facility]) ID Date Data Source [id number] 06/16/2020 12:00:00 AM EDT [facility] ([facility]) Name Value Range Interpretation Code Description Data Heena rce(s) Supporting Document(s) ID Date Data Source [id number] 06/16/2020 12:00:00 AM EDT [facility] ([facility]) Name Value Range Interpretation Code Description Data Heena rce(s) Supporting Document(s) SARS-CoV-2 (COVID-19) RNA [Presence] in Respiratory specimen by ALEKSANDR with probe detection negative negative Sars-cov-2 [facility] ([facility]) ID Date Data Source [id number] 06/16/2020 12:00:00 AM EDT [facility] ([facility]) Name Value Range Interpretation Code Description Data Heena rce(s) Supporting Document(s) ID Date Data Source [id number] 06/16/2020 12:00:00 AM EDT [facility] ([facility]) Name Value Range Interpretation Code Description Data Heena rce(s) Supporting Document(s) SARS-CoV-2 (COVID-19) RNA [Presence] in Respiratory specimen by ALEKSANDR with probe detection negative negative Sars-cov-2 [facility] ([facility]) ID Date Data Source [id number] 06/16/2020 12:00:00 AM EDT [facility] ([facility]) Name Value Range Interpretation Code Description Data Heena rce(s) Supporting Document(s) ID Date Data Source [id number] 06/16/2020 12:00:00 AM EDT [facility] ([facility]) Name Value Range Interpretation Code Description Data Heena rce(s) Supporting Document(s) SARS-CoV-2 (COVID-19) RNA [Presence] in Respiratory specimen by ALEKSANDR with probe detection negative negative Sars-cov-2 [facility] ([facility]) ID Date Data Source [id number] 06/16/2020 12:00:00 AM EDT [facility] ([facility]) Name Value Range Interpretation Code Description Data Heena rce(s) Supporting Document(s) ID Date Data Source [id number] 06/16/2020 12:00:00 AM EDT [facility] ([facility]) Name Value Range Interpretation Code Description Data Heena rce(s) Supporting Document(s) SARS-CoV-2 (COVID-19) RNA [Presence] in Respiratory specimen by ALEKSANDR with probe detection negative negative Sars-cov-2 [facility] ([facility]) ID Date Data Source [id number] 06/16/2020 12:00:00 AM EDT [facility] ([facility]) Name Value Range Interpretation Code Description Data Heena rce(s) Supporting Document(s) ID Date Data Source [id number] 06/16/2020 12:00:00 AM EDT [place] ([facility]) Name Value Range Interpretation Code Description Data Heena rce(s) Supporting Document(s) SARS-CoV-2 (COVID-19) RNA [Presence] in Respiratory specimen by ALEKSANDR with probe detection negative negative Sars-cov-2 [facility] ([facility]) ID Date Data Source [id number] 06/16/2020 12:00:00 AM EDT [facility] ([facility]) Name Value Range Interpretation Code Description Data Heena rce(s) Supporting Document(s) ID Date Data Source [id number] 06/16/2020 12:00:00 AM EDT [facility] ([facility]) Name Value Range Interpretation Code Description Data Heena rce(s) Supporting Document(s) SARS-CoV-2 (COVID-19) RNA [Presence] in Respiratory specimen by ALEKSANDR with probe detection negative negative Sars-cov-2 [facility] ([facility]) ID Date Data Source [id number] 06/16/2020 12:00:00 AM EDT [facility] ([facility]) Name Value Range Interpretation Code Description Data Heena rce(s) Supporting Document(s) ID Date Data Source [id number] 06/16/2020 12:00:00 AM EDT [facility] ([facility]) Name Value Range Interpretation Code Description Data Heena rce(s) Supporting Document(s) SARS-CoV-2 (COVID-19) RNA [Presence] in Respiratory specimen by ALEKSANDR with probe detection negative negative Sars-cov-2 [facility] ([facility]) ID Date Data Source [id number] 06/16/2020 12:00:00 AM EDT [facility] ([facility]) Name Value Range Interpretation Code Description Data Heena rce(s) Supporting Document(s) ID Date Data Source [id number] 06/16/2020 12:00:00 AM EDT [facility] ([facility]) Name Value Range Interpretation Code Description Data Heena rce(s) Supporting Document(s) SARS coronavirus 2 RNA [Presence] in Res piratory specimen by ALEKSANDR with probe detection negative negative Sars-cov-2 [facility] ([facility]) ID Date Data Source [id number] 06/16/2020 12:00:00 AM EDT [facility] ([facility]) Name Value Range Interpretation Code Description Data Heena rce(s) Supporting Document(s) ID Date Data Source [id number] 06/16/2020 12:00:00 AM EDT [facility] ([facility]) Name Value Range Interpretation Code Description Data Heena rce(s) Supporting Document(s) SARS coronavirus 2 RNA [Presence] in Res piratory specimen by ALEKSANDR with probe detection negative negative Sars-cov-2 [facility] ([facility]) ID Date Data Source [id number] 06/16/2020 12:00:00 AM EDT [facility] ([facility]) Name Value Range Interpretation Code Description Data Heena rce(s) Supporting Document(s) ID Date Data Source [id number] 06/16/2020 12:00:00 AM EDT [facility] Name Value Range Interpretation Code Description Data Heena rce(s) Supporting Document(s) SARS-CoV-2 [facility] This lab was ordered by [facility] and reported by [facility]. ID Date Data Source [id number] 06/16/2020 12:00:00 AM EDT [facility] ([facility]) Name Value Range Interpretation Code Description Data Heena rce(s) Supporting Document(s) SARS-CoV-2 (COVID-19) RNA [Presence] in Respiratory specimen by ALEKSANDR with probe detection negative negative Sars-cov-2 [facility] ([facility]) ID Date Data Source [id number] 06/16/2020 12:00:00 AM EDT [place] ([facility]) Name Value Range Interpretation Code Description Data Heena rce(s) Supporting Document(s) ID Date Data Source [id number] 06/16/2020 12:00:00 AM EDT [facility] ([facility]) Name Value Range Interpretation Code Description Data Heena rce(s) Supporting Document(s) SARS-CoV-2 (COVID-19) RNA [Presence] in Respiratory specimen by ALEKSANDR with probe detection negative negative Sars-cov-2 [facility] ([facility]) ID Date Data Source [id number] 06/16/2020 12:00:00 AM EDT [place] ([facility]) Name Value Range Interpretation Code Description Data Heena rce(s) Supporting Document(s) ID Date Data Source [id number] 06/16/2020 12:00:00 AM EDT [place] ([facility]) Name Value Range Interpretation Code Description Data Heena rce(s) Supporting Document(s) SARS-CoV-2 (COVID-19) RNA [Presence] in Respiratory specimen by ALEKSANDR with probe detection negative negative Sars-cov-2 [facility] ([facility]) ID Date Data Source [id number] 06/16/2020 12:00:00 AM EDT [facility] ([facility]) Name Value Range Interpretation Code Description Data Heena rce(s) Supporting Document(s) ID Date Data Source [id number] 06/16/2020 12:00:00 AM EDT [facility] ([facility]) Name Value Range Interpretation Code Description Data Heena rce(s) Supporting Document(s) SARS-CoV-2 (COVID-19) RNA [Presence] in Respiratory specimen by ALEKSANDR with probe detection negative negative Sars-cov-2 [facility] ([facility]) ID Date Data Source [id number] 06/16/2020 12:00:00 AM EDT [facility] ([facility]) Name Value Range Interpretation Code Description Data Heena rce(s) Supporting Document(s) ID Date Data Source [id number] 06/02/2020 12:00:00 AM EDT [facility] ([facility]) Name Value Range Interpretation Code Description Data Heena rce(s) Supporting Document(s) ID Date Data Source [id number] 06/02/2020 12:00:00 AM EDT [facility] ([facility]) Name Value Range Interpretation Code Description Data Heena rce(s) Supporting Document(s) ID Date Data Source [id number] 06/02/2020 12:00:00 AM EDT [facility] ([facility]) Name Value Range Interpretation Code Description Data Heena rce(s) Supporting Document(s) ID Date Data Source [id number] 06/02/2020 12:00:00 AM EDT [facility] ([facility]) Name Value Range Interpretation Code Description Data Heena rce(s) Supporting Document(s) ID Date Data Source [id number] 06/02/2020 12:00:00 AM EDT [facility] ([facility]) Name Value Range Interpretation Code Description Data Heena rce(s) Supporting Document(s) ID Date Data Source [id number] 06/02/2020 12:00:00 AM EDT [facility] ([facility]) Name Value Range Interpretation Code Description Data Heena rce(s) Supporting Document(s) ID Date Data Source [id number] 06/02/2020 12:00:00 AM EDT [facility] ([facility]) Name Value Range Interpretation Code Description Data Heena rce(s) Supporting Document(s) ID Date Data Source [id number] 06/02/2020 12:00:00 AM EDT [facility] ([facility]) Name Value Range Interpretation Code Description Data Heena rce(s) Supporting Document(s) ID Date Data Source [id number] 06/02/2020 12:00:00 AM EDT [facility] ([facility]) Name Value Range Interpretation Code Description Data Heena rce(s) Supporting Document(s) ID Date Data Source [id number] 06/02/2020 12:00:00 AM EDT [facility] ([facility]) Name Value Range Interpretation Code Description Data Heena rce(s) Supporting Document(s) ID Date Data Source [id number] 06/02/2020 12:00:00 AM EDT [facility] ([facility]) Name Value Range Interpretation Code Description Data Heena rce(s) Supporting Document(s) ID Date Data Source [id number] 06/02/2020 12:00:00 AM EDT [facility] ([facility]) Name Value Range Interpretation Code Description Data Heena rce(s) Supporting Document(s) ID Date Data Source [id number] 06/02/2020 12:00:00 AM EDT [facility] ([facility]) Name Value Range Interpretation Code Description Data Heena rce(s) Supporting Document(s) ID Date Data Source [id number] 06/02/2020 12:00:00 AM EDT [facility] ([facility]) Name Value Range Interpretation Code Description Data Heena rce(s) Supporting Document(s) ID Date Data Source [id number] 06/02/2020 12:00:00 AM EDT [facility] Name Value Range Interpretation Code Description Data Heena rce(s) Supporting Document(s) [facility]CoV-2 [facility] This lab was ordered by [facility] and reported by [facility]. ID Date Data Source [id number] 06/02/2020 12:00:00 AM EDT [place] ([facility]) Name Value Range Interpretation Code Description Data Heena rce(s) Supporting Document(s) ID Date Data Source [id number] 06/02/2020 12:00:00 AM EDT [place] ([facility]) Name Value Range Interpretation Code Description Data Heena rce(s) Supporting Document(s) ID Date Data Source [id number] 06/02/2020 12:00:00 AM EDT [place] ([facility]) Name Value Range Interpretation Code Description Data Heena rce(s) Supporting Document(s) ID Date Data Source [id number] 06/02/2020 12:00:00 AM EDT [place] ([facility]) Name Value Range Interpretation Code Description Data Heena rce(s) Supporting Document(s) ID Date Data Source [id number] 06/02/2020 12:00:00 AM EDT [place] ([facility]) Name Value Range Interpretation Code Description Data Heena rce(s) Supporting Document(s) Procedure Social History Code Duration Value Status Description Data Source(s ) Smoking 01/15/2021 12:00:00 AM EDT Patient has never smoked co mpleted Patient has never smoked [facility] ([facility]) Smoking 01/08/2021 12:00:00 AM EDT Never Smoker completed Never S moker eCW1 ([facility]) Smoking 01/08/2021 12:00:00 AM EDT Never Smoker completed Never S moker eCW1 ([facility]) Smoking 01/08/2021 12:00:00 AM EDT Never Smoker completed Never S moker eCW1 ([facility]) Smoking 09/10/2020 12:00:00 AM EST Patient has never smoked co mpleted Patient has never smoked MEDENT ([facility]) Vital Signs ID Date Data Source [id number] Name Value Range Interpretation Code Description Data Source(s) Diastolic blood pressure 74 mm[Hg] 74 mm[Hg] [facility] ([facility]) Body height 71 [in_i] 71 [in_i] [facility] ([facility]) Systolic blood pressure 128 mm[Hg] 128 mm[Hg] A THENA ([facility]) Diastolic blood pressure 74 mm[Hg] 74 mm[Hg] [facility] ([facility]) Systolic blood pressure 131 mm[Hg] 131 mm[Hg] A THENA ([facility]) Body height 71 [in_i] 71 [in_i] [facility] ([facility]) Diastolic blood pressure 74 mm[Hg] 74 mm[Hg] [facility] ([facility]) Body height 71 [in_i] 71 [in_i] [facility] ([facility]) Systolic blood pressure 131 mm[Hg] 131 mm[Hg] A THENA ([facility]) Systolic blood pressure 146 mm[Hg] 146 mm[Hg] M EDENT ([facility]) Diastolic blood pressure 84 mm[Hg] 84 mm[Hg] MED[facility] ([facility]) Heart rate 99 /min 99 /min [facility] ([facility] ) Body temperature 96.4 [degF] 96.4 [degF] MED[facility] ([facility] ) Body height 69.25 [in_i] 69.25 [in_i] [facility] ([facility] 5'9.25" Body weight 227.50 [lb_av] 227.50 [lb_av] MEDEN T ([facility] ) Body mass index (BMI) [Ratio] 33.4 kg/m2 33.4 k g/m2 MED[facility] ([facility] ) Oxygen saturation in Arterial blood by Pulse oximetry 99 % 99 % [facility] ([facility] ) Diastolic blood pressure 74 mm[Hg] 74 mm[Hg] [facility] ([facility]) Body height 71 [in_i] 71 [in_i] [facility] ([facility]) Systolic blood pressure 127 mm[Hg] 127 mm[Hg] A THENA ([facility]) Diastolic blood pressure 74 mm[Hg] 74 mm[Hg] [facility] ([facility]) Body height 71 [in_i] 71 [in_i] [facility] ([facility]) Systolic blood pressure 127 mm[Hg] 127 mm[Hg] A THENA ([facility]) Diastolic blood pressure 74 mm[Hg] 74 mm[Hg] [facility] ([facility]) Body height 71 [in_i] 71 [in_i] [facility] ([facility]) Systolic blood pressure 127 mm[Hg] 127 mm[Hg] A THENA ([facility]) Systolic blood pressure 150 mm[Hg] 150 mm[Hg] M EDENT ([facility] ) Diastolic blood pressure 100 mm[Hg] 100 mm[Hg] MED[facility] ([facility]) Heart rate 104 /min 104 /min [facility] ([facility]) Respiratory rate 20 /min 20 /min MED[facility] ( [facility] ) Body height 71 [in_i] 71 [in_i] [facility] ([facility]) Diastolic blood pressure 90 mm[Hg] 90 mm[Hg] [facility] ([facility]) Systolic blood pressure 158 mm[Hg] 158 mm[Hg] A THENA ([facility]) Diastolic blood pressure 90 mm[Hg] 90 mm[Hg] [facility] ([facility]) Body height 71 [in_i] 71 [in_i] [facility] ([facility] Systolic blood pressure 158 mm[Hg] 158 mm[Hg] A THENA ([facility]) Diastolic blood pressure 90 mm[Hg] 90 mm[Hg] [facility] ([facility]) Body height 71 [in_i] 71 [in_i] [facility] ([facility]) Systolic blood pressure 158 mm[Hg] 158 mm[Hg] A THENA ([facility]) Diastolic blood pressure 90 mm[Hg] 90 mm[Hg] [facility] ([facility]) Body height 71 [in_i] 71 [in_i] [facility] ([facility]) Systolic blood pressure 158 mm[Hg] 158 mm[Hg] A THE[facility] [facility] [place] Diastolic blood pressure 90 mm[Hg] 90 mm[Hg] ROLANDO ([facility] [place]) Body height 71 [in_i] 71 [in_i] ROLANDO ([facility] [place]) Systolic blood pressure 158 mm[Hg] 158 mm[Hg] A THENA ([facility] [place]) Systolic blood pressure 152 mm[Hg] 152 mm[Hg] M EDENT ([facility], [facility]) Oxygen saturation in Arterial blood by Pulse oximetry 95 % 95 % MEDENT ([facility], [facility]) Body temperature 98.9 [degF] 98.9 [degF] MEDENT ([facility], [facility]) Body weight 220.00 [lb_av] 220.00 [lb_av] MEDEN T ([facility], [facility]) Body height 70 [in_i] 70 [in_i] MEDENT ([facility], [facility]) 5'10" Body mass index (BMI) [Ratio] 31.6 kg/m2 31.6 k g/m2 MEDENT ([facility], [facility]) Diastolic blood pressure 79 mm[Hg] 79 mm[Hg] MEDENT ([facility], [facility]) Heart rate 116 /min 116 /min MEDENT ([facility], [facility]) Respiratory rate 16 /min 16 /min MEDENT ( [facility], [facility]) Body weight 221.8 [lb_av] 221.8 [lb_av] eCW1 ([facility]) Body height 71 [in_i] 71 [in_i] eCW1 ([facility]) Body mass index (BMI) [Ratio] 30.93 kg/m2 30.93 kg/m2 eCW1 ([facility]) Heart rate 119 /min 119 /min eCW1 ([facility]) Respiratory rate 18 /min 18 /min eCW1 ([facility], 1928–1983) Body temperature 97.2 [degF] 97.2 [degF] eCW1 ( [facility]) Systolic blood pressure 134 mm[Hg] 134 mm[Hg] e CW1 ([facility]) Diastolic blood pressure 76 mm[Hg] 76 mm[Hg] eCW1 ([facility]) Diastolic blood pressure 68 mm[Hg] 68 mm[Hg] ROLANDO ([facility] [place]) Body height 71 [in_i] 71 [in_i] ROLANDO ([facility] [place]) Systolic blood pressure 134 mm[Hg] 134 mm[Hg] A THENA ([facility] [place]) Body height 71 [in_i] 71 [in_i] ROLANDO ([facility] [place]) Diastolic blood pressure 68 mm[Hg] 68 mm[Hg] ROLANDO ([facility] [place]) Systolic blood pressure 134 mm[Hg] 134 mm[Hg] A THENA ([facility] [place]) Diastolic blood pressure 68 mm[Hg] 68 mm[Hg] ROLANDO ([facility] [place]) Body height 71 [in_i] 71 [in_i] ROLANDO ([facility] [place]) Systolic blood pressure 134 mm[Hg] 134 mm[Hg] A THENA ([facility] [place]) Diastolic blood pressure 68 mm[Hg] 68 mm[Hg] ROLANDO ([facility] [place]) Body height 71 [in_i] 71 [in_i] ROLANDO ([facility]) Systolic blood pressure 134 mm[Hg] 134 mm[Hg] A THENA ([facility]) Diastolic blood pressure 68 mm[Hg] 68 mm[Hg] ROLANDO ([facility]) Body height 71 [in_i] 71 [in_i] ROLANDO ([facility] [place]) Systolic blood pressure 134 mm[Hg] 134 mm[Hg] A THENA ([facility]) Diastolic blood pressure 68 mm[Hg] 68 mm[Hg] ROLANDO ([facility]) Body height 71 [in_i] 71 [in_i] ROLANDO ([facility] [place]) Systolic blood pressure 134 mm[Hg] 134 mm[Hg] A THENA ([facility] [place]) Body weight 216.25 [lb_av] 216.25 [lb_av] MEDEN T ([facility]) Body mass index (BMI) [Ratio] 31.7 kg/m2 31.7 k g/m2 MEDENT ([facility]) Oxygen saturation in Arterial blood by Pulse oximetry 97 % 97 % MEDENT ([facility]) Systolic blood pressure 142 mm[Hg] 142 mm[Hg] M EDENT ([facility]) Diastolic blood pressure 80 mm[Hg] 80 mm[Hg] MEDENT ([facility]) Heart rate 95 /min 95 /min MEDENT ([facility]) Body temperature 96.4 [degF] 96.4 [degF] MEDENT ([facility]) Body height 69.25 [in_i] 69.25 [in_i] MEDENT ([facility]) 5'9.25" Diastolic blood pressure 74 mm[Hg] 74 mm[Hg] ROLANDO ([facility] [place]) Body height 71 [in_i] 71 [in_i] ROLANDO ([facility] [place]) Systolic blood pressure 147 mm[Hg] 147 mm[Hg] A THENA ([facility] [place]) Diastolic blood pressure 74 mm[Hg] 74 mm[Hg] ROLANDO ([facility] [place]) Body height 71 [in_i] 71 [in_i] ROLANDO ([facility] [place]) Systolic blood pressure 147 mm[Hg] 147 mm[Hg] A THENA ([facility]) Diastolic blood pressure 74 mm[Hg] 74 mm[Hg] ROLANDO ([facility]) Body height 71 [in_i] 71 [in_i] ROLANDO ([facility]) Systolic blood pressure 147 mm[Hg] 147 mm[Hg] A THENA ([facility]) Diastolic blood pressure 74 mm[Hg] 74 mm[Hg] ROLANDO ([facility]) Body height 71 [in_i] 71 [in_i] ROLANDO ([facility]) Systolic blood pressure 147 mm[Hg] 147 mm[Hg] A THENA ([facility]) Diastolic blood pressure 74 mm[Hg] 74 mm[Hg] ROLANDO ([facility]) Body height 71 [in_i] 71 [in_i] ROLANDO ([facility]) Systolic blood pressure 147 mm[Hg] 147 mm[Hg] A THENA ([facility]) Diastolic blood pressure 74 mm[Hg] 74 mm[Hg] ROLANDO ([facility]) Body height 71 [in_i] 71 [in_i] ROLANDO ([facility]) Systolic blood pressure 147 mm[Hg] 147 mm[Hg] A THENA ([facility]) Diastolic blood pressure 74 mm[Hg] 74 mm[Hg] ROLANDO ([facility]) Body height 71 [in_i] 71 [in_i] ROLANDO ([facility]) Systolic blood pressure 147 mm[Hg] 147 mm[Hg] A THENA ([facility]) Diastolic blood pressure 74 mm[Hg] 74 mm[Hg] ROLANDO ([facility]) Body height 71 [in_i] 71 [in_i] ROLANDO ([facility]) Systolic blood pressure 147 mm[Hg] 147 mm[Hg] A THENA ([facility]) Diastolic blood pressure 74 mm[Hg] 74 mm[Hg] ROLANDO ([facility]) Body height 71 [in_i] 71 [in_i] ROLANDO ([facility]) Systolic blood pressure 147 mm[Hg] 147 mm[Hg] A THENA ([facility]) Diastolic blood pressure 78 mm[Hg] 78 mm[Hg] ROLANDO ([facility]) Body height 71 [in_i] 71 [in_i] ROLANDO ([facility]) Systolic blood pressure 162 mm[Hg] 162 mm[Hg] A THENA ([facility]) Body height 71 [in_i] 71 [in_i] ROLANDO ([facility]) Systolic blood pressure 162 mm[Hg] 162 mm[Hg] A THENA ([facility]) Diastolic blood pressure 78 mm[Hg] 78 mm[Hg] ROLANDO ([facility]) Diastolic blood pressure 78 mm[Hg] 78 mm[Hg] ROLANDO ([facility]) Body height 71 [in_i] 71 [in_i] ROLANDO ([facility]) Systolic blood pressure 162 mm[Hg] 162 mm[Hg] A THENA ([facility]) Diastolic blood pressure 78 mm[Hg] 78 mm[Hg] ROLANDO ([facility]) Body height 71 [in_i] 71 [in_i] ROLANDO ([facility]) Systolic blood pressure 162 mm[Hg] 162 mm[Hg] A THENA ([facility]) Diastolic blood pressure 78 mm[Hg] 78 mm[Hg] ROLANDO ([facility]) Body height 71 [in_i] 71 [in_i] ROLANDO ([facility]) Systolic blood pressure 162 mm[Hg] 162 mm[Hg] A THENA ([facility]) Diastolic blood pressure 78 mm[Hg] 78 mm[Hg] ROLANDO ([facility]) Body height 71 [in_i] 71 [in_i] ROLANDO ([facility]) Systolic blood pressure 162 mm[Hg] 162 mm[Hg] A THENA ([facility]) Diastolic blood pressure 78 mm[Hg] 78 mm[Hg] ROLANDO ([facility]) Body height 71 [in_i] 71 [in_i] ROLANDO ([facility]) Systolic blood pressure 162 mm[Hg] 162 mm[Hg] A THENA ([facility]) Diastolic blood pressure 78 mm[Hg] 78 mm[Hg] ROLANDO ([facility]) Body height 71 [in_i] 71 [in_i] ROLANDO ([facility]) Systolic blood pressure 162 mm[Hg] 162 mm[Hg] A THENA ([facility] [place]) Body height 71 [in_i] 71 [in_i] ROLANDO ([facility] [place]) Diastolic blood pressure 78 mm[Hg] 78 mm[Hg] ROLANDO ([facility] [place]) Systolic blood pressure 162 mm[Hg] 162 mm[Hg] A THENA ([facility] [place]) Diastolic blood pressure 78 mm[Hg] 78 mm[Hg] ROLANDO ([facility] [place]) Body height 71 [in_i] 71 [in_i] ROLANDO ([facility] [place]) Systolic blood pressure 162 mm[Hg] 162 mm[Hg] A THENA ([facility] [place]) Systolic blood pressure 150 mm[Hg] 150 mm[Hg] M EDENT ([facility], [facility]) No b/p meds today Diastolic blood pressure 98 mm[Hg] 98 mm[Hg] MEDENT ([facility], [facility]) No b/p meds today Heart rate 120 /min 120 /min MEDENT ([facility], [facility]) Respiratory rate 18 /min 18 /min MEDENT ( [facility], [facility]) Oxygen saturation in Arterial blood by Pulse oximetry 98 % 98 % MEDENT ([facility], [facility]) Body temperature 97.1 [degF] 97.1 [degF] MEDENT ([facility], [facility]) Body weight 220.00 [lb_av] 220.00 [lb_av] MEDEN T ([facility], [facility]) Body height 71 [in_i] 71 [in_i] MEDENT ([facility], [facility]) 5'11" Body mass index (BMI) [Ratio] 30.7 kg/m2 30.7 k g/m2 MEDENT ([facility], [facility]) Diastolic blood pressure 84 mm[Hg] 84 mm[Hg] ROLANDO ([facility] [place]) Body height 71 [in_i] 71 [in_i] ROLANDO ([facility] [place]) Systolic blood pressure 127 mm[Hg] 127 mm[Hg] A THENA ([facility] [place]) Body height 71 [in_i] 71 [in_i] ROLANDO ([facility]) Diastolic blood pressure 84 mm[Hg] 84 mm[Hg] ROLANDO ([facility]) Systolic blood pressure 127 mm[Hg] 127 mm[Hg] A THENA ([facility]) Diastolic blood pressure 84 mm[Hg] 84 mm[Hg] ROLANDO ([facility]) Diastolic blood pressure 84 mm[Hg] 84 mm[Hg] ROLANDO ([facility]) Body height 71 [in_i] 71 [in_i] ROLANDO ([facility]) Body height 71 [in_i] 71 [in_i] ROLANDO ([facility]) Systolic blood pressure 127 mm[Hg] 127 mm[Hg] A THENA ([facility]) Systolic blood pressure 127 mm[Hg] 127 mm[Hg] A THENA ([facility]) Diastolic blood pressure 84 mm[Hg] 84 mm[Hg] ROLANDO ([facility]) Body height 71 [in_i] 71 [in_i] ROLANDO ([facility]) Systolic blood pressure 127 mm[Hg] 127 mm[Hg] A THENA ([facility]) Diastolic blood pressure 84 mm[Hg] 84 mm[Hg] ROLANDO ([facility]) Body height 71 [in_i] 71 [in_i] ROLANDO ([facility]) Systolic blood pressure 127 mm[Hg] 127 mm[Hg] A THENA ([facility]) Diastolic blood pressure 84 mm[Hg] 84 mm[Hg] ROLANDO ([facility]) Body height 71 [in_i] 71 [in_i] ROLANDO ([facility]) Systolic blood pressure 127 mm[Hg] 127 mm[Hg] A THENA ([facility]) Diastolic blood pressure 84 mm[Hg] 84 mm[Hg] ROLANDO ([facility]) Body height 71 [in_i] 71 [in_i] ROLANDO ([facility]) Systolic blood pressure 127 mm[Hg] 127 mm[Hg] A THENA ([facility]) Diastolic blood pressure 84 mm[Hg] 84 mm[Hg] ROLANDO ([facility] [place]) Body height 71 [in_i] 71 [in_i] ROLANDO ([facility]) Systolic blood pressure 127 mm[Hg] 127 mm[Hg] A THENA ([facility]) Body height 71 [in_i] 71 [in_i] ROLANDO ([facility]) Systolic blood pressure 127 mm[Hg] 127 mm[Hg] A THENA ([facility] [place]) Diastolic blood pressure 84 mm[Hg] 84 mm[Hg] ROLANDO ([facility] [place]) Diastolic blood pressure 84 mm[Hg] 84 mm[Hg] ROLANDO ([facility] [place]) Body height 71 [in_i] 71 [in_i] ROLANDO ([facility] [place]) Systolic blood pressure 127 mm[Hg] 127 mm[Hg] A THENA ([facility] [place]) Systolic blood pressure 126 mm[Hg] 126 mm[Hg] M EDENT ([facility]) Diastolic blood pressure 84 mm[Hg] 84 mm[Hg] MEDENT ([facility]) Heart rate 89 /min 89 /min MEDENT ([facility]) Body temperature 97.2 [degF] 97.2 [degF] MEDENT ([facility]) Body height 69.25 [in_i] 69.25 [in_i] MEDENT ([facility]) 5'9.25" Body weight 217.50 [lb_av] 217.50 [lb_av] MEDEN T ([facility] ) Body mass index (BMI) [Ratio] 31.9 kg/m2 31.9 k g/m2 MEDENT ([facility] ) Oxygen saturation in Arterial blood by Pulse oximetry 98 % 98 % MEDENT ([facility]) Systolic blood pressure 128 mm[Hg] 128 mm[Hg] A THENA ([facility] [place]) Diastolic blood pressure 83 mm[Hg] 83 mm[Hg] ROLANDO ([facility] [place]) Body height 71 [in_i] 71 [in_i] ROLANDO ([facility] [place]) Diastolic blood pressure 83 mm[Hg] 83 mm[Hg] ROLANDO ([facility] [place]) Body height 71 [in_i] 71 [in_i] ROLANDO ([facility] [place]) Systolic blood pressure 128 mm[Hg] 128 mm[Hg] A THENA ([facility] [place]) Diastolic blood pressure 83 mm[Hg] 83 mm[Hg] ROLANDO ([facility]) Body height 71 [in_i] 71 [in_i] ROLANDO ([facility]) Systolic blood pressure 128 mm[Hg] 128 mm[Hg] A THENA ([facility]) Body height 71 [in_i] 71 [in_i] ROLANDO ([facility]) Diastolic blood pressure 83 mm[Hg] 83 mm[Hg] ROLANDO ([facility]) Systolic blood pressure 128 mm[Hg] 128 mm[Hg] A THENA ([facility]) Diastolic blood pressure 83 mm[Hg] 83 mm[Hg] ROLANDO ([facility]) Body height 71 [in_i] 71 [in_i] ROLANDO ([facility]) Systolic blood pressure 128 mm[Hg] 128 mm[Hg] A THENA ([facility]) Diastolic blood pressure 83 mm[Hg] 83 mm[Hg] ROLANDO ([facility]) Body height 71 [in_i] 71 [in_i] ROLANDO ([facility]) Systolic blood pressure 128 mm[Hg] 128 mm[Hg] A THENA ([facility]) Diastolic blood pressure 83 mm[Hg] 83 mm[Hg] ROLANDO ([facility]) Body height 71 [in_i] 71 [in_i] ROLANDO ([facility]) Systolic blood pressure 128 mm[Hg] 128 mm[Hg] A THENA ([facility]) Diastolic blood pressure 83 mm[Hg] 83 mm[Hg] ROLANDO ([facility]) Body height 71 [in_i] 71 [in_i] ROLANDO ([facility]) Systolic blood pressure 128 mm[Hg] 128 mm[Hg] A THENA ([facility]) Diastolic blood pressure 83 mm[Hg] 83 mm[Hg] ROLANDO ([facility]) Body height 71 [in_i] 71 [in_i] ROLANDO ([facility]) Systolic blood pressure 128 mm[Hg] 128 mm[Hg] A THENA ([facility]) Diastolic blood pressure 83 mm[Hg] 83 mm[Hg] ROLANDO ([facility]) Diastolic blood pressure 83 mm[Hg] 83 mm[Hg] ROLANDO ([facility]) Body height 71 [in_i] 71 [in_i] ROLANDO ([facility]) Systolic blood pressure 128 mm[Hg] 128 mm[Hg] A THENA ([facility]) Body height 71 [in_i] 71 [in_i] ROLANDO ([facility]) Systolic blood pressure 128 mm[Hg] 128 mm[Hg] A THENA ([facility]) Diastolic blood pressure 83 mm[Hg] 83 mm[Hg] ROLANDO ([facility]) Body height 71 [in_i] 71 [in_i] ROLANDO ([facility]) Systolic blood pressure 128 mm[Hg] 128 mm[Hg] A THENA ([facility]) Diastolic blood pressure 83 mm[Hg] 83 mm[Hg] ROLANDO ([facility]) Body height 71 [in_i] 71 [in_i] ROLANDO ([facility]) Systolic blood pressure 128 mm[Hg] 128 mm[Hg] A THENA ([facility]) Diastolic blood pressure 83 mm[Hg] 83 mm[Hg] ROLANDO ([facility]) Body height 71 [in_i] 71 [in_i] ROLANDO ([facility]) Systolic blood pressure 128 mm[Hg] 128 mm[Hg] A THENA ([facility]) Body height 71 [in_i] 71 [in_i] ROLANDO ([facility]) Diastolic blood pressure 83 mm[Hg] 83 mm[Hg] ROLANDO ([facility]) Systolic blood pressure 128 mm[Hg] 128 mm[Hg] A THENA ([facility]) Systolic blood pressure 110 mm[Hg] 110 mm[Hg] M EDENT ([facility]) Heart rate 96 /min 96 /min MEDENT ([facility]) Respiratory rate 20 /min 20 /min MEDENT ( [facility]) Diastolic blood pressure 80 mm[Hg] 80 mm[Hg] MEDENT ([facility]) Diastolic blood pressure 74 mm[Hg] 74 mm[Hg] ROLANDO ([facility] [place]) Body height 71 [in_i] 71 [in_i] ROLANDO ([facility]) Systolic blood pressure 119 mm[Hg] 119 mm[Hg] A THENA ([facility]) Diastolic blood pressure 74 mm[Hg] 74 mm[Hg] ROLANDO ([facility]) Body height 71 [in_i] 71 [in_i] ROLANDO ([facility]) Systolic blood pressure 119 mm[Hg] 119 mm[Hg] A THENA ([facility]) Diastolic blood pressure 74 mm[Hg] 74 mm[Hg] ROLANDO ([facility]) Body height 71 [in_i] 71 [in_i] ROLANDO ([facility]) Systolic blood pressure 119 mm[Hg] 119 mm[Hg] A THENA ([facility]) Diastolic blood pressure 74 mm[Hg] 74 mm[Hg] ROLANDO ([facility]) Body height 71 [in_i] 71 [in_i] ROLANDO ([facility]) Systolic blood pressure 119 mm[Hg] 119 mm[Hg] A THENA ([facility]) Diastolic blood pressure 74 mm[Hg] 74 mm[Hg] ROLANDO ([facility]) Body height 71 [in_i] 71 [in_i] ROLANDO ([facility]) Systolic blood pressure 119 mm[Hg] 119 mm[Hg] A THENA ([facility]) Diastolic blood pressure 74 mm[Hg] 74 mm[Hg] ROLANDO ([facility]) Body height 71 [in_i] 71 [in_i] ROLANDO ([facility]) Systolic blood pressure 119 mm[Hg] 119 mm[Hg] A THENA ([facility]) Diastolic blood pressure 74 mm[Hg] 74 mm[Hg] ROLANDO ([facility]) Body height 71 [in_i] 71 [in_i] ROLANDO ([facility]) Systolic blood pressure 119 mm[Hg] 119 mm[Hg] A THENA ([facility]) Diastolic blood pressure 74 mm[Hg] 74 mm[Hg] ROLANDO ([facility]) Body height 71 [in_i] 71 [in_i] ROLANDO ([facility]) Systolic blood pressure 119 mm[Hg] 119 mm[Hg] A THENA ([facility]) Diastolic blood pressure 74 mm[Hg] 74 mm[Hg] ROLANDO ([facility]) Body height 71 [in_i] 71 [in_i] ROLANDO ([facility]) Systolic blood pressure 119 mm[Hg] 119 mm[Hg] A THENA ([facility]) Diastolic blood pressure 74 mm[Hg] 74 mm[Hg] ROLANDO ([facility]) Body height 71 [in_i] 71 [in_i] ROLANDO ([facility]) Systolic blood pressure 119 mm[Hg] 119 mm[Hg] A THENA ([facility]) Diastolic blood pressure 74 mm[Hg] 74 mm[Hg] ROLANDO ([facility]) Body height 71 [in_i] 71 [in_i] ROLANDO ([facility]) Systolic blood pressure 119 mm[Hg] 119 mm[Hg] A THENA ([facility]) Diastolic blood pressure 74 mm[Hg] 74 mm[Hg] ROLANDO ([facility]) Body height 71 [in_i] 71 [in_i] ROLANDO ([facility]) Systolic blood pressure 119 mm[Hg] 119 mm[Hg] A THENA ([facility]) Systolic blood pressure 119 mm[Hg] 119 mm[Hg] A THENA ([facility]) Body height 71 [in_i] 71 [in_i] ROLANDO ([facility]) Diastolic blood pressure 74 mm[Hg] 74 mm[Hg] ROLANDO ([facility]) Diastolic blood pressure 74 mm[Hg] 74 mm[Hg] ROLANDO ([facility]) Body height 71 [in_i] 71 [in_i] ROLANDO ([facility]) Systolic blood pressure 119 mm[Hg] 119 mm[Hg] A THENA ([facility]) Diastolic blood pressure 74 mm[Hg] 74 mm[Hg] ROLANDO ([facility]) Body height 71 [in_i] 71 [in_i] ROLANDO ([facility]) Systolic blood pressure 119 mm[Hg] 119 mm[Hg] A THENA ([facility]) Diastolic blood pressure 74 mm[Hg] 74 mm[Hg] ROLANDO ([facility]) Body height 71 [in_i] 71 [in_i] ROLANDO ([facility] [place]) Systolic blood pressure 119 mm[Hg] 119 mm[Hg] A THENA ([facility] [place]) Systolic blood pressure 170 mm[Hg] 170 mm[Hg] M EDENT ([facility], [facility]) manual Diastolic blood pressure 82 mm[Hg] 82 mm[Hg] MEDENT ([facility], [facility]) manual Systolic blood pressure 172 mm[Hg] 172 mm[Hg] M EDENT ([facility], [facility]) Diastolic blood pressure 93 mm[Hg] 93 mm[Hg] MEDENT ([facility], [facility]) Heart rate 103 /min 103 /min MEDENT ([facility], [facility]) Oxygen saturation in Arterial blood by Pulse oximetry 98 % 98 % [facility], [facility]) Body temperature 98.1 [degF] 98.1 [degF] MEDENT ([facility], [facility]) Body weight 220.00 [lb_av] 220.00 [lb_av] MEDEN T ([facility], [facility]) Body height 71 [in_i] 71 [in_i] MEDENT ([facility], [facility]) 5'11" Body mass index (BMI) [Ratio] 30.7 kg/m2 30.7 k g/m2 [facility], [facility]) Patient Treatment Plan of Care Planned Activity Planned Date Details Description Data Source (s) Acetaminophen 300 MG / Codeine Phosphate 30 MG Oral Ta blet 04/03/2019 12:00:00 AM EDT ROLANDO ([facility] [place] Acetaminophen 300 MG / Codeine Phosphate 30 MG Oral Ta blet 04/03/2019 12:00:00 AM EDT ROLANDO ([facility] [place]) Acetaminophen 300 MG / Codeine Phosphate 30 MG Oral Ta blet 04/03/2019 12:00:00 AM EDT ROLANDO ([facility] [place]) Acetaminophen 300 MG / Codeine Phosphate 30 MG Oral Ta blet 04/03/2019 12:00:00 AM EDT ROLANDO ([facility] [place]) Acetaminophen 300 MG / Codeine Phosphate 30 MG Oral Ta blet 04/03/2019 12:00:00 AM EDT ROLANDO ([facility]) Acetaminophen 300 MG / Codeine Phosphate 30 MG Oral Ta blet 04/03/2019 12:00:00 AM EDT ROLANDO ([facility]) Acetaminophen 300 MG / Codeine Phosphate 30 MG Oral Ta blet 04/03/2019 12:00:00 AM EDT ROLANDO ([facility]) Acetaminophen 300 MG / Codeine Phosphate 30 MG Oral Ta blet 04/03/2019 12:00:00 AM EDT ROLANDO ([facility]) Acetaminophen 300 MG / Codeine Phosphate 30 MG Oral Ta blet 04/03/2019 12:00:00 AM EDT ROLANDO ([facility] [place]) zonisamide 50 MG Oral Capsule ROLANDO ([facility] [place]) topiramate 25 MG Oral Tablet ROLANDO ([facility] [place]) Sumatriptan 25 MG Oral Tablet ROLANDO ([facility] [place]) Simvastatin 20 MG Oral Tablet ROLANDO ([facility] [place]) 0.5 ML pneumococcal capsular polysacchar triston type 1 vaccine 0.05 MG/ML / pneumococcal capsular polysaccharide type 10A vaccine 0.05 MG/ML / pneumococcal capsular polysaccharide type 11A vaccine 0.05 MG/ML / pneumococcal capsular polysaccharide type 12F vac ATHE NA ([facility] [place]) Oseltamivir 75 MG Oral Capsule ROLANDO ([facility] [place]) Ondansetron 8 MG Oral Tablet ROLANDO ([facility] [place]) Ondansetron 4 MG Disintegrating Oral Tablet ROLANDO ([facility] [place]) Naproxen 250 MG Oral Tablet ROLANDO ([facility] [place]) Metoclopramide 10 MG Oral Tablet ROLANDO ([facility] [place]) 24 HR Metformin hydrochloride 500 MG Extended Release Oral Tablet ROLANDO ([facility] [place]) meloxicam 7.5 MG Oral Tablet ROLANDO ([facility] [place]) Acetaminophen 325 MG / Hydrocodone Bitartrate 7.5 MG Oral Tablet ROLANDO ([facility] [place]) Acetaminophen 325 MG / Hydrocodone Bitartrate 5 MG Oral Tablet ROLANDO ([facility] [place]) Fluzone Quad (PF) 60 mcg (15 m cg x 4)/0.5 mL IM syringe INJECT INTRAMUSCULARLY IN THE LEFT ARM ROLANDO ([facility] [place]) Flucelvax Quad 60 mcg (15 mcg x 4)/0.5 mL intramuscular susp INJECT 0.5ML DIRECTED ROLANDO ([facility] [place] Flucelvax Quad [id number] 60 mcg (15 mcg x 4)/0.5 mL IM suspension ROLANDO ([facility] [place]) duloxetine 30 MG Delayed Release Oral Capsule ROLANDO ([facility] [place]) doxycycline hyclate 100 MG Oral Tablet ROLANDO ([facility] [place]) Divalproex Sodium 500 MG Delayed Release Oral Tablet ROLANDO ([facility] [place]) Divalproex Sodium 250 MG Delayed Release Oral Tablet ROLANDO ([facility] [place]) carvedilol 3.125 MG Oral Tablet ROLANDO ([facility] [place]) Amoxicillin 875 MG / Clavulanate 125 MG Oral Tablet ROLANDO ([facility] [place]) Allopurinol 100 MG Oral Tablet ROLANDO ([facility] [place]) zonisamide 50 MG Oral Capsule ROLANDO ([facility] [place]) topiramate 25 MG Oral Tablet ROLANDO ([facility] [place]) Sumatriptan 25 MG Oral Tablet ROLANDO ([facility] [place]) Simvastatin 20 MG Oral Tablet ROLANDO ([facility] [place]) 0.5 ML pneumococcal capsular polysacchar triston type 1 vaccine 0.05 MG/ML / pneumococcal capsular polysaccharide type 10A vaccine 0.05 MG/ML / pneumococcal capsular polysaccharide type 11A vaccine 0.05 MG/ML / pneumococcal capsular polysaccharide type 12F vac ATHE NA ([facility] [place]) Oseltamivir 75 MG Oral Capsule ROLANDO ([facility] [place]) Ondansetron 8 MG Oral Tablet ROLANDO ([facility] [place]) Ondansetron 4 MG Disintegrating Oral Tablet ROLANDO ([facility] [place]) Naproxen 250 MG Oral Tablet ROLANDO ([facility] [place]) Metoclopramide 10 MG Oral Tablet ROLANDO ([facility] [place]) 24 HR Metformin hydrochloride 500 MG Extended Release Oral Tablet ROLANDO ([facility] [place]) meloxicam 7.5 MG Oral Tablet ROLANDO ([facility] [place]) Acetaminophen 325 MG / Hydrocodone Bitartrate 7.5 MG Oral Tablet ROLANDO ([facility] [place]) Acetaminophen 325 MG / Hydrocodone Bitartrate 5 MG Oral Tablet ROLANDO ([facility] [place]) Fluzone Quad (PF) 60 mcg (15 m cg x 4)/0.5 mL IM syringe INJECT INTRAMUSCULARLY IN THE LEFT ARM ROLANDO ([facility] [place]) Flucelvax Quad 60 mcg (15 mcg x 4)/0.5 mL intramuscular susp INJECT 0.5ML DIRECTED ROLANDO ([facility] [place] Flucelvax Quad 60 mcg (15 mcg x 4)/0.5 mL IM suspension ROLANDO ([facility] [place]) duloxetine 30 MG Delayed Release Oral Capsule ROLANDO ([facility] [place]) doxycycline hyclate 100 MG Oral Tablet ROLANDO ([facility] [place]) Divalproex Sodium 500 MG Delayed Release Oral Tablet ROLANDO ([facility] [place]) Divalproex Sodium 250 MG Delayed Release Oral Tablet ROLANDO ([facility] [place]) carvedilol 3.125 MG Oral Tablet ROLANDO ([facility] [place]) Amoxicillin 875 MG / Clavulanate 125 MG Oral Tablet ROLANDO ([facility] [place]) Allopurinol 100 MG Oral Tablet ROLANDO ([facility] [place]) zonisamide 50 MG Oral Capsule ROLANDO ([facility] [place]) topiramate 25 MG Oral Tablet ROLANDO ([facility] [place]) Sumatriptan 25 MG Oral Tablet ROLANDO ([facility] [place]) Simvastatin 20 MG Oral Tablet ROLANDO ([facility] [place]) 0.5 ML pneumococcal capsular polysacchar tristno type 1 vaccine 0.05 MG/ML / pneumococcal capsular polysaccharide type 10A vaccine 0.05 MG/ML / pneumococcal capsular polysaccharide type 11A vaccine 0.05 MG/ML / pneumococcal capsular polysaccharide type 12F vac ATHE NA ([facility] [place]) Oseltamivir 75 MG Oral Capsule ROLANDO ([facility] [place]) Ondansetron 8 MG Oral Tablet ROLANDO ([facility] [place]) Naproxen 250 MG Oral Tablet ROLANDO ([facility] [place]) Metoclopramide 10 MG Oral Tablet ROLANDO ([facility] [place]) 24 HR Metformin hydrochloride 500 MG Extended Release Oral Tablet ROLANDO ([facility] [place]) meloxicam 7.5 MG Oral Tablet ROLANDO ([facility] [place]) Acetaminophen 325 MG / Hydrocodone Bitartrate 7.5 MG Oral Tablet ROLANDO ([facility] [place]) Acetaminophen 325 MG / Hydrocodone Bitartrate 5 MG Oral Tablet ROLANDO ([facility] [place]) Fluzone Quad (PF) 60 mcg (15 m cg x 4)/0.5 mL IM syringe INJECT INTRAMUSCULARLY IN THE LEFT ARM ROLANDO ([facility] [place]) Flucelvax Quad 60 mcg (15 mcg x 4)/0.5 mL intramuscular susp INJECT 0.5ML DIRECTED ROLANDO ([facility] [place] Flucelvax Quad 60 mcg (15 mcg x 4)/0.5 mL IM suspension ROLANDO ([facility] [place]) duloxetine 30 MG Delayed Release Oral Capsule ROLANDO ([facility] [place]) doxycycline hyclate 100 MG Oral Tablet ROLANDO ([facility] [place]) Divalproex Sodium 500 MG Delayed Release Oral Tablet ROLANDO ([facility] [place]) Divalproex Sodium 250 MG Delayed Release Oral Tablet ROLANDO ([facility] [place]) Sumatriptan 25 MG Oral Tablet ROLANDO ([facility] [place]) Simvastatin 20 MG Oral Tablet ROLANDO ([facility] [place]) 0.5 ML pneumococcal capsular polysacchar triston type 1 vaccine 0.05 MG/ML / pneumococcal capsular polysaccharide type 10A vaccine 0.05 MG/ML / pneumococcal capsular polysaccharide type 11A vaccine 0.05 MG/ML / pneumococcal capsular polysaccharide type 12F vac ATHE NA ([facility] [place]) Oseltamivir 75 MG Oral Capsule ROLANDO ([facility] [place]) Ondansetron 8 MG Oral Tablet ROLANDO ([facility] [place]) Ondansetron 4 MG Oral Tablet ROLANDO ([facility] [place]) Ondansetron 4 MG Disintegrating Oral Tablet ROLANDO ([facility] [place]) Naproxen 250 MG Oral Tablet ROLANDO ([facility] [place]) Metoclopramide 10 MG Oral Tablet ROLANDO ([facility] [place]) 24 HR Metformin hydrochloride 500 MG Extended Release Oral Tablet ROLANDO ([facility] [place]) meloxicam 7.5 MG Oral Tablet ROLANDO ([facility] [place]) Acetaminophen 325 MG / Hydrocodone Bitartrate 7.5 MG Oral Tablet ROLANDO ([facility] [place]) Acetaminophen 325 MG / Hydrocodone Bitartrate 5 MG Oral Tablet ROLANDO ([facility] [place]) Fluzone Quad (PF) 60 mcg (15 m cg x 4)/0.5 mL IM syringe INJECT INTRAMUSCULARLY IN THE LEFT ARM ROLANDO ([facility] [place]) Flucelvax Quad 60 mcg (15 mcg x 4)/0.5 mL intramuscular susp INJECT 0.5ML DIRECTED ROLANDO ([facility] [place] Flucelvax Quad 60 mcg (15 mcg x 4)/0.5 mL IM suspension ROLANDO ([facility] [place]) duloxetine 30 MG Delayed Release Oral Capsule ROLANDO ([facility] [place]) doxycycline hyclate 100 MG Oral Tablet ROLANDO ([facility] [place]) Divalproex Sodium 500 MG Delayed Release Oral Tablet ROLANDO ([facility] [place]) Divalproex Sodium 250 MG Delayed Release Oral Tablet ROLANDO ([facility] [place]) carvedilol 3.125 MG Oral Tablet ROLANDO ([facility] [place]) Amoxicillin 875 MG / Clavulanate 125 MG Oral Tablet ROLANDO ([facility] [place]) Allopurinol 100 MG Oral Tablet ROLANDO ([facility] [place]) zonisamide 50 MG Oral Capsule ROLANDO ([facility] [place]) topiramate 50 MG Oral Tablet ROLANDO ([facility] [place]) Sumatriptan 25 MG Oral Tablet ROLANDO ([facility] [place]) Simvastatin 20 MG Oral Tablet ROLANDO ([facility] [place]) 0.5 ML pneumococcal capsular polysacchar triston type 1 vaccine 0.05 MG/ML / pneumococcal capsular polysaccharide type 10A vaccine 0.05 MG/ML / pneumococcal capsular polysaccharide type 11A vaccine 0.05 MG/ML / pneumococcal capsular polysaccharide type 12F vac ATHE NA ([facility] [place]) Oseltamivir 75 MG Oral Capsule ROLANDO ([facility] [place]) Ondansetron 8 MG Oral Tablet ROLANDO ([facility] [place] Ondansetron 4 MG Oral Tablet ROLANDO ([facility] [place]) Ondansetron 4 MG Disintegrating Oral Tablet ROLANDO ([facility] [place]) Naproxen 250 MG Oral Tablet ROLANDO ([facility] [place]) Metoclopramide 10 MG Oral Tablet ROLANDO ([facility] [place]) 24 HR Metformin hydrochloride 500 MG Extended Release Oral Tablet ROLANDO ([facility] [place]) meloxicam 7.5 MG Oral Tablet ROLANDO ([facility] [place]) Acetaminophen 325 MG / Hydrocodone Bitartrate 7.5 MG Oral Tablet ROLANDO ([facility] [place]) Acetaminophen 325 MG / Hydrocodone Bitartrate 5 MG Oral Tablet ROLANDO ([facility] [place]) Fluzone Quad (PF) 60 mcg (15 m cg x 4)/0.5 mL IM syringe INJECT INTRAMUSCULARLY IN THE LEFT ARM ROLANDO ([facility] [place]) Flucelvax Quad 60 mcg (15 mcg x 4)/0.5 mL intramuscular susp INJECT 0.5ML DIRECTED ROLANDO ([facility] Flucelvax Quad 60 mcg (15 mcg x 4)/0.5 mL IM suspension ROLANDO ([facility] [place]) doxycycline hyclate 100 MG Oral Tablet ROLANDO ([facility] [place]) Divalproex Sodium 500 MG Delayed Release Oral Tablet ROLANDO ([facility] [place]) Divalproex Sodium 250 MG Delayed Release Oral Tablet ROLANDO ([facility] [place]) carvedilol 3.125 MG Oral Tablet ROLANDO ([facility] [place]) Amoxicillin 875 MG / Clavulanate 125 MG Oral Tablet ROLANDO ([facility] [place]) Allopurinol 100 MG Oral Tablet ROLANDO ([facility] [place]) zonisamide 50 MG Oral Capsule ROLANDO ([facility] [place]) topiramate 50 MG Oral Tablet ROLANDO ([facility] [place]) Sumatriptan 25 MG Oral Tablet ROLANDO ([facility] [place]) Simvastatin 20 MG Oral Tablet ROLANDO ([facility] [place]) 0.5 ML pneumococcal capsular polysacchar triston type 1 vaccine 0.05 MG/ML / pneumococcal capsular polysaccharide type 10A vaccine 0.05 MG/ML / pneumococcal capsular polysaccharide type 11A vaccine 0.05 MG/ML / pneumococcal capsular polysaccharide type 12F vac ATHE NA ([facility] [place]) Oseltamivir 75 MG Oral Capsule ROLANDO ([facility] [place] Ondansetron 8 MG Oral Tablet ROLANDO ([facility] [place]) Ondansetron 4 MG Oral Tablet ROLANDO ([facility] [place] Ondansetron 4 MG Disintegrating Oral Tablet ROLANDO ([facility] [place]) Naproxen 250 MG Oral Tablet ROLANDO ([facility] [place]) Metoclopramide 10 MG Oral Tablet ROLANDO ([facility] [place]) 24 HR Metformin hydrochloride 500 MG Extended Release Oral Tablet ROLANDO ([facility] [place]) Amoxicillin 875 MG / Clavulanate 125 MG Oral Tablet ROLANDO ([facility] [place]) Allopurinol 100 MG Oral Tablet ROLANDO ([facility] [place]) zonisamide 50 MG Oral Capsule ROLANDO ([facility] [place]) topiramate 50 MG Oral Tablet ROLANDO ([facility] [place] Sumatriptan 25 MG Oral Tablet ROLANDO ([facility] [place]) Simvastatin 20 MG Oral Tablet ROLANDO ([facility] [place]) 0.5 ML pneumococcal capsular polysacchar triston type 1 vaccine 0.05 MG/ML / pneumococcal capsular polysaccharide type 10A vaccine 0.05 MG/ML / pneumococcal capsular polysaccharide type 11A vaccine 0.05 MG/ML / pneumococcal capsular polysaccharide type 12F vac ATHE NA ([facility] [place]) Oseltamivir 75 MG Oral Capsule ROLANDO ([facility] [place] Ondansetron 8 MG Oral Tablet ROLANDO ([facility] [place]) Ondansetron 4 MG Oral Tablet ROLANDO ([facility] [place]) Ondansetron 4 MG Disintegrating Oral Tablet ROLANDO ([facility] [place]) Naproxen 250 MG Oral Tablet ROLANDO ([facility] [place]) Metoclopramide 10 MG Oral Tablet ROLANDO ([facility] [place]) 24 HR Metformin hydrochloride 500 MG Extended Release Oral Tablet ROLANDO ([facility] [place]) meloxicam 7.5 MG Oral Tablet ROLANDO ([facility] [place]) Acetaminophen 325 MG / Hydrocodone Bitartrate 7.5 MG Oral Tablet ROLANDO ([facility] [place]) Acetaminophen 325 MG / Hydrocodone Bitartrate 5 MG Oral Tablet ROLANDO ([facility] [place]) Fluzone Quad [id number] (PF) 60 mcg (15 m cg x 4)/0.5 mL IM syringe INJECT INTRAMUSCULARLY IN THE LEFT ARM ROLANDO ([facility] [place]) Flucelvax Quad 60 mcg (15 mcg x 4)/0.5 mL intramuscular susp INJECT 0.5ML DIRECTED ROLANDO [facility] Flucelvax Quad [id number] 60 mcg (15 mcg x 4)/0.5 mL IM suspension ROLANDO ([facility] [place] doxycycline hyclate 100 MG Oral Tablet ROLANDO ([facility] [place]) Divalproex Sodium 500 MG Delayed Release Oral Tablet ROLANDO ([facility] [place]) Divalproex Sodium 250 MG Delayed Release Oral Tablet ROLANDO ([facility] [place]) carvedilol 3.125 MG Oral Tablet ROLANDO ([facility] [place]) Amoxicillin 875 MG / Clavulanate 125 MG Oral Tablet ROLANDO ([facility] [place]) Allopurinol 100 MG Oral Tablet ROLANDO ([facility] [place]) zonisamide 50 MG Oral Capsule ROLANDO ([facility] [place]) icosapent ethyl 1000 MG Oral Capsule [Vascepa] ROLANDO ([facility] [place]) topiramate 50 MG Oral Tablet ROLANDO ([facility] [place]) Sumatriptan 25 MG Oral Tablet ROLANDO ([facility] [place]) Simvastatin 20 MG Oral Tablet ROLANDO ([facility] [place]) 0.5 ML pneumococcal capsular polysacchar triston type 1 vaccine 0.05 MG/ML / pneumococcal capsular polysaccharide type 10A vaccine 0.05 MG/ML / pneumococcal capsular polysaccharide type 11A vaccine 0.05 MG/ML / pneumococcal capsular polysaccharide type 12F vac ATHE NA ([facility] [place]) Oseltamivir 75 MG Oral Capsule ROLANDO ([facility] [place]) Ondansetron 8 MG Oral Tablet ROLANDO ([facility] [place]) Ondansetron 4 MG Oral Tablet ROLANDO ([facility] [place]) Ondansetron 4 MG Disintegrating Oral Tablet ROLANDO ([facility] [place]) Naproxen 250 MG Oral Tablet ROLANDO ([facility] [place]) Metoclopramide 10 MG Oral Tablet ROLANDO ([facility] [place]) meloxicam 7.5 MG Oral Tablet ROLANDO ([facility] [place]) Acetaminophen 325 MG / Hydrocodone Bitartrate 7.5 MG Oral Tablet ROLANDO ([facility] [place]) Acetaminophen 325 MG / Hydrocodone Bitartrate 5 MG Oral Tablet ROLANDO ([facility] [place]) doxycycline hyclate 100 MG Oral Tablet ROLANDO ([facility] [place]) Divalproex Sodium 500 MG Delayed Release Oral Tablet ROLANDO ([facility] [place]) Divalproex Sodium 250 MG Delayed Release Oral Tablet ROLANDO ([facility] [place]) carvedilol 3.125 MG Oral Tablet ROLANDO ([facility] [place]) Amoxicillin 875 MG / Clavulanate 125 MG Oral Tablet ROLANDO ([facility] [place]) Naproxen 250 MG Oral Tablet ROLANDO ([facility] [place]) Metoclopramide 10 MG Oral Tablet ROLANDO ([facility] [place]) 24 HR Metformin hydrochloride 500 MG Extended Release Oral Tablet ROLANDO ([facility] [place]) meloxicam 7.5 MG Oral Tablet ROLANDO ([facility] [place]) Acetaminophen 325 MG / Hydrocodone Bitartrate 7.5 MG Oral Tablet ROLANDO ([facility] [place]) Acetaminophen 325 MG / Hydrocodone Bitartrate 5 MG Oral Tablet ROLANDO ([facility] [place]) Fluzone Quad (PF) 60 mcg (15 m cg x 4)/0.5 mL IM syringe INJECT INTRAMUSCULARLY IN THE LEFT ARM ROLANDO ([facility] [place]) Flucelvax Quad 60 mcg (15 mcg x 4)/0.5 mL intramuscular susp INJECT 0.5ML DIRECTED [facility] ([facility] [place] Flucelvax Quad 60 mcg (15 mcg x 4)/0.5 mL IM suspension ROLANDO ([facility] [place]) duloxetine 30 MG Delayed Release Oral Capsule ROLANDO ([facility] [place]) doxycycline hyclate 100 MG Oral Tablet ROLANDO ([facility] [place]) Divalproex Sodium 500 MG Delayed Release Oral Tablet ROLANDO ([facility] [place]) Divalproex Sodium 250 MG Delayed Release Oral Tablet ROLANDO ([facility] [place]) carvedilol 3.125 MG Oral Tablet ROLANDO ([facility] [place]) Amoxicillin 875 MG / Clavulanate 125 MG Oral Tablet ROLANDO ([facility] [place]) Allopurinol 100 MG Oral Tablet ROLANDO ([facility] [place]) zonisamide 50 MG Oral Capsule ROLANDO ([facility] [place]) topiramate 25 MG Oral Tablet ROLANDO ([facility] [place]) Sumatriptan 25 MG Oral Tablet ROLANDO ([facility] [place]) Simvastatin 20 MG Oral Tablet ROLANDO ([facility] [place]) 0.5 ML pneumococcal capsular polysacchar triston type 1 vaccine 0.05 MG/ML / pneumococcal capsular polysaccharide type 10A vaccine 0.05 MG/ML / pneumococcal capsular polysaccharide type 11A vaccine 0.05 MG/ML / pneumococcal capsular polysaccharide type 12F vac ATHE NA ([facility] [place]) Oseltamivir 75 MG Oral Capsule ROLANDO ([facility] [place]) Ondansetron 8 MG Oral Tablet ROLANDO ([facility] [place]) Ondansetron 4 MG Disintegrating Oral Tablet ROLANDO ([facility] [place]) Naproxen 250 MG Oral Tablet ROLANDO ([facility] [place]) Metoclopramide 10 MG Oral Tablet ROLANDO ([facility] [place]) 24 HR Metformin hydrochloride 500 MG Extended Release Oral Tablet ROLANDO ([facility] [place]) meloxicam 7.5 MG Oral Tablet ROLANDO ([facility] [place]) Acetaminophen 325 MG / Hydrocodone Bitartrate 7.5 MG Oral Tablet ROLANDO ([facility] [place]) Acetaminophen 325 MG / Hydrocodone Bitartrate 5 MG Oral Tablet ROLANDO ([facility] [place]) Fluzone Quad (PF) 60 mcg (15 m cg x 4)/0.5 mL IM syringe INJECT INTRAMUSCULARLY IN THE LEFT ARM ROLANDO ([facility] [place]) Flucelvax Quad 60 mcg (15 mcg x 4)/0.5 mL intramuscular susp INJECT 0.5ML DIRECTED [facility]OL[facility]O ([facility] [place] Flucelvax Quad 60 mcg (15 mcg x 4)/0.5 mL IM suspension ROLANDO ([facility] [place]) duloxetine 30 MG Delayed Release Oral Capsule ROLANDO ([facility] [place]) doxycycline hyclate 100 MG Oral Tablet ROLANDO ([facility] [place]) Divalproex Sodium 500 MG Delayed Release Oral Tablet ROLANDO ([facility] [place]) Divalproex Sodium 250 MG Delayed Release Oral Tablet ROLANDO ([facility] [place]) carvedilol 3.125 MG Oral Tablet ROLANDO ([facility] [place]) Amoxicillin 875 MG / Clavulanate 125 MG Oral Tablet ROLANDO ([facility] [place]) Allopurinol 100 MG Oral Tablet ROLANDO ([facility] [place]) zonisamide 50 MG Oral Capsule ROLANDO ([facility] [place]) topiramate 50 MG Oral Tablet ROLANDO ([facility] [place]) Sumatriptan 25 MG Oral Tablet ROLANDO ([facility] [place]) Simvastatin 20 MG Oral Tablet ROLANDO ([facility] [place]) 0.5 ML pneumococcal capsular polysacchar triston type 1 vaccine 0.05 MG/ML / pneumococcal capsular polysaccharide type 10A vaccine 0.05 MG/ML / pneumococcal capsular polysaccharide type 11A vaccine 0.05 MG/ML / pneumococcal capsular polysaccharide type 12F vac ATHE NA ([facility] [place]) Ondansetron 8 MG Oral Tablet ROLANDO ([facility] [place]) Ondansetron 4 MG Oral Tablet ROLANDO ([facility] [place]) Ondansetron 8 MG Disintegrating Oral Tablet ROLANDO ([facility] [place]) Naproxen 250 MG Oral Tablet ROLANDO ([facility] [place]) meloxicam 7.5 MG Oral Tablet ROLANDO ([facility] [place]) Acetaminophen 325 MG / Hydrocodone Bitartrate 7.5 MG Oral Tablet ROLANDO ([facility] [place]) Acetaminophen 325 MG / Hydrocodone Bitartrate 5 MG Oral Tablet ROLANDO ([facility] [place]) doxycycline hyclate 100 MG Oral Tablet ROLANDO ([facility] [place]) Divalproex Sodium 500 MG Delayed Release Oral Tablet ROLANDO ([facility] [place]) Divalproex Sodium 250 MG Delayed Release Oral Tablet ROLANDO ([facility] [place]) carvedilol 3.125 MG Oral Tablet ROLANDO ([facility] [place]) Amoxicillin 875 MG / Clavulanate 125 MG Oral Tablet ROLANDO ([facility] [place]) topiramate 50 MG Oral Tablet ROLANDO ([facility] [place]) Sumatriptan 25 MG Oral Tablet ROLANDO ([facility] [place]) Simvastatin 20 MG Oral Tablet ROLANDO ([facility] [place]) 0.5 ML pneumococcal capsular polysacchar triston type 1 vaccine 0.05 MG/ML / pneumococcal capsular polysaccharide type 10A vaccine 0.05 MG/ML / pneumococcal capsular polysaccharide type 11A vaccine 0.05 MG/ML / pneumococcal capsular polysaccharide type 12F vac ATHE NA ([facility] [place]) Ondansetron 8 MG Oral Tablet ROLANDO ([facility] [place]) Ondansetron 4 MG Oral Tablet ROLANDO ([facility] [place]) Ondansetron 8 MG Disintegrating Oral Tablet ROLANDO ([facility] [place]) Naproxen 250 MG Oral Tablet ROLANDO ([facility] [place]) Metformin hydrochloride 1000 MG Oral Tablet ROLANDO ([facility] [place]) meloxicam 7.5 MG Oral Tablet ROLANDO ([facility] [place]) Acetaminophen 325 MG / Hydrocodone Bitartrate 7.5 MG Oral Tablet ROLANDO ([facility] [place]) Acetaminophen 325 MG / Hydrocodone Bitartrate 5 MG Oral Tablet ROLANDO ([facility] [place]) doxycycline hyclate 100 MG Oral Tablet ROLANDO ([facility] [place]) Divalproex Sodium 500 MG Delayed Release Oral Tablet ROLANDO ([facility] [place]) Divalproex Sodium 250 MG Delayed Release Oral Tablet ROLANDO ([facility] [place]) carvedilol 3.125 MG Oral Tablet ROLANDO ([facility] [place]) Amoxicillin 875 MG / Clavulanate 125 MG Oral Tablet ROLANDO ([facility] [place]) topiramate 50 MG Oral Tablet ROLANDO ([facility] [place]) Sumatriptan 25 MG Oral Tablet ROLANDO ([facility] [place]) carvedilol 3.125 MG Oral Tablet ROLANDO ([facility] [place]) Amoxicillin 875 MG / Clavulanate 125 MG Oral Tablet ROLANDO ([facility] [place]) Allopurinol 100 MG Oral Tablet ROLANDO ([facility] [place]) zonisamide 50 MG Oral Capsule ROLANDO ([facility] [place]) topiramate 25 MG Oral Tablet ROLANDO ([facility] [place]) Sumatriptan 25 MG Oral Tablet ROLANDO ([facility] [place]) Simvastatin 20 MG Oral Tablet ROLANDO ([facility] [place]) 0.5 ML pneumococcal capsular polysacchar triston type 1 vaccine 0.05 MG/ML / pneumococcal capsular polysaccharide type 10A vaccine 0.05 MG/ML / pneumococcal capsular polysaccharide type 11A vaccine 0.05 MG/ML / pneumococcal capsular polysaccharide type 12F vac ATHE NA ([facility] [place]) Oseltamivir 75 MG Oral Capsule ROLANDO ([facility] [place]) Ondansetron 8 MG Oral Tablet ROLANDO ([facility] [place]) meloxicam 7.5 MG Oral Tablet ROLANDO ([facility] [place]) Acetaminophen 325 MG / Hydrocodone Bitartrate 7.5 MG Oral Tablet ROLANDO ([facility] [place]) Acetaminophen 325 MG / Hydrocodone Bitartrate 5 MG Oral Tablet ROLANDO ([facility] [place]) Fluzone Quad [id number] (PF) 60 mcg (15 m cg x 4)/0.5 mL IM syringe INJECT INTRAMUSCULARLY IN THE LEFT ARM ROLANDO ([facility] [place]) Flucelvax Quad 60 mcg (15 mcg x 4)/0.5 mL intramuscular susp INJECT 0.5ML DIRECTED ROLANDO ([facility] [place] Flucelvax Quad 60 mcg (15 mcg x 4)/0.5 mL IM suspension ROLANDO ([facility] [place]) doxycycline hyclate 100 MG Oral Tablet ROLANDO ([facility] [place]) Divalproex Sodium 500 MG Delayed Release Oral Tablet ROLANDO ([facility] [place]) Divalproex Sodium 250 MG Delayed Release Oral Tablet ROLANDO ([facility] [place]) carvedilol 3.125 MG Oral Tablet ROLANDO ([facility] [place]) Simvastatin 20 MG Oral Tablet ROLANDO ([facility] [place]) 0.5 ML pneumococcal capsular polysacchar triston type 1 vaccine 0.05 MG/ML / pneumococcal capsular polysaccharide type 10A vaccine 0.05 MG/ML / pneumococcal capsular polysaccharide type 11A vaccine 0.05 MG/ML / pneumococcal capsular polysaccharide type 12F vac ATHE NA ([facility] [place]) Ondansetron 8 MG Oral Tablet ROLANDO ([facility] [place]) Ondansetron 4 MG Oral Tablet ROLANDO ([facility] [place]) Ondansetron 8 MG Disintegrating Oral Tablet ROLANDO ([facility] [place]) Naproxen 250 MG Oral Tablet ROLANDO ([facility] [place]) Metformin hydrochloride 1000 MG Oral Tablet ROLANDO ([facility] [place]) meloxicam 7.5 MG Oral Tablet ROLANDO ([facility] [place]) topiramate 50 MG Oral Tablet ROLANDO ([facility] [place] Sumatriptan 25 MG Oral Tablet ROLANDO ([facility] [place]) Simvastatin 20 MG Oral Tablet ROLANDO ([facility] [place]) 0.5 ML pneumococcal capsular polysacchar triston type 1 vaccine 0.05 MG/ML / pneumococcal capsular polysaccharide type 10A vaccine 0.05 MG/ML / pneumococcal capsular polysaccharide type 11A vaccine 0.05 MG/ML / pneumococcal capsular polysaccharide type 12F vac ATHE NA ([facility] [place]) Ondansetron 8 MG Oral Tablet ROLANDO ([facility] [place]) Ondansetron 4 MG Oral Tablet ROLANDO ([facility] [place]) Ondansetron 8 MG Disintegrating Oral Tablet ROLANDO ([facility] [place]) Naproxen 250 MG Oral Tablet ROLANDO ([facility] [place]) Metformin hydrochloride 1000 MG Oral Tablet ROLANDO ([facility] [place]) meloxicam 7.5 MG Oral Tablet ROLANDO ([facility] [place]) Acetaminophen 325 MG / Hydrocodone Bitartrate 7.5 MG Oral Tablet ROLANDO ([facility] [place]) Acetaminophen 325 MG / Hydrocodone Bitartrate 5 MG Oral Tablet ROLANDO ([facility] [place]) doxycycline hyclate 100 MG Oral Tablet ROLANDO ([facility] [place]) Divalproex Sodium 500 MG Delayed Release Oral Tablet ROLANDO ([facility] [place]) Divalproex Sodium 250 MG Delayed Release Oral Tablet ROLANDO ([facility] [place]) carvedilol 3.125 MG Oral Tablet ROLANDO ([facility] [place]) Amoxicillin 875 MG / Clavulanate 125 MG Oral Tablet ROLANDO ([facility] [place]) topiramate 50 MG Oral Tablet ROLANDO ([facility] [place]) Sumatriptan 25 MG Oral Tablet ROLANDO ([facility] [place]) Ondansetron 8 MG Oral Tablet ROLANDO ([facility] [place]) Ondansetron 4 MG Oral Tablet ROLANDO ([facility] [place] Ondansetron 8 MG Disintegrating Oral Tablet ROLANDO ([facility] [place]) Naproxen 250 MG Oral Tablet ROLANDO ([facility] [place]) meloxicam 7.5 MG Oral Tablet ROLANDO ([facility] [place]) Acetaminophen 325 MG / Hydrocodone Bitartrate 7.5 MG Oral Tablet ROLANDO ([facility] [place]) Acetaminophen 325 MG / Hydrocodone Bitartrate 5 MG Oral Tablet ROLANDO ([facility] [place]) doxycycline hyclate 100 MG Oral Tablet ROLANDO ([facility] [place]) Divalproex Sodium 250 MG Delayed Release Oral Tablet ROLANDO ([facility] [place]) carvedilol 3.125 MG Oral Tablet ROLANDO ([facility] [place]) Amoxicillin 875 MG / Clavulanate 125 MG Oral Tablet ROLANDO ([facility] [place]) topiramate 50 MG Oral Tablet ROLANDO ([facility] [place] Sumatriptan 25 MG Oral Tablet ROLANDO ([facility] [place]) Simvastatin 20 MG Oral Tablet ROLANDO ([facility] [place]) 0.5 ML pneumococcal capsular polysacchar triston type 1 vaccine 0.05 MG/ML / pneumococcal capsular polysaccharide type 10A vaccine 0.05 MG/ML / pneumococcal capsular polysaccharide type 11A vaccine 0.05 MG/ML / pneumococcal capsular polysaccharide type 12F vac ATHE NA ([facility] [place]) Ondansetron 8 MG Oral Tablet ROLANDO ([facility] [place]) Ondansetron 4 MG Oral Tablet ROLANDO ([facility] [place]) Ondansetron 8 MG Disintegrating Oral Tablet ROLANDO ([facility] [place]) Naproxen 250 MG Oral Tablet ROLANDO ([facility] [place]) meloxicam 7.5 MG Oral Tablet ROLANDO ([facility] [place]) Acetaminophen 325 MG / Hydrocodone Bitartrate 7.5 MG Oral Tablet ROLANDO ([facility] [place]) Acetaminophen 325 MG / Hydrocodone Bitartrate 5 MG Oral Tablet ROLANDO ([facility] [place]) doxycycline hyclate 100 MG Oral Tablet ROLANDO ([facility] [place]) Divalproex Sodium 500 MG Delayed Release Oral Tablet ROLANDO ([facility] [place]) Divalproex Sodium 250 MG Delayed Release Oral Tablet ROLANDO ([facility] [place]) carvedilol 3.125 MG Oral Tablet ROLNADO ([facility] [place]) Amoxicillin 875 MG / Clavulanate 125 MG Oral Tablet ROLANDO ([facility] [place]) Acetaminophen 325 MG / Hydrocodone Bitartrate 7.5 MG Oral Tablet ROLANDO ([facility] [place]) Acetaminophen 325 MG / Hydrocodone Bitartrate 5 MG Oral Tablet ROLANDO ([facility] [place]) doxycycline hyclate 100 MG Oral Tablet ROLANDO ([facility] [place]) Divalproex Sodium 500 MG Delayed Release Oral Tablet ROLANDO ([facility] [place]) Divalproex Sodium 250 MG Delayed Release Oral Tablet ROLANDO ([facility] [place]) carvedilol 3.125 MG Oral Tablet ROLANDO ([facility] [place]) Amoxicillin 875 MG / Clavulanate 125 MG Oral Tablet ROLANDO ([facility] [place])
[2021-07-23] MEDS ORDERED: ONDANSETRON 4MG/2ML VIAL IV ONE ×2 (07:45→10:30)
[2021-07-23] MEDS ORDERED: NS 1,000 ML IV ONE ×2 (07:45→10:30)
[2021-07-23] MEDS ORDERED: ACETAMINOPHEN 500 MG TAB PO ONE (07:45)
[2021-07-23 08:01] LABS: BASO # 0.1 10^3/uL (0.0-0.2); BASO % 0.7 % (0.0-1.0); EOS % 0.2 % (0.0-3.0); HEMATOCRIT 50.3 % (42.0-52.0); HEMOGLOBIN 16.8 g/dl (13.5-17.5); LYMPH # 2.1 10^3/uL (1.5-5.0); LYMPH % 15.2 % (24.0-44.0); MEAN CORPUSCULAR HEMOGLOBIN 32.6 pg (27.0-33.0); MEAN CORPUSCULAR HGB CONC 33.4 g/dl (32.0-36.5); MEAN CORPUSCULAR VOLUME 97.5 fl (80.0-96.0); MONO # 0.7 10^3/uL (0.0-0.8); MONO % 4.9 % (2.0-8.0); NEUTROPHILS # 10.7 10^3/uL (1.5-8.5); NEUTROPHILS % 78.5 % (36.0-66.0); PLATELET COUNT, AUTOMATED 252 10^3/uL (150-450); RED BLOOD COUNT 5.16 10^6/uL (4.30-6.10); WHITE BLOOD COUNT 13.6 10^3/uL (4.0-10.0)
--- NOTE | 2021-07-23 08:25 | REP ---
INDICATION: migraine, worse today, n/v COMPARISON: 11/20/2020 TECHNIQUE: Axial noncontrast images from the skull base to the thoracic inlet with coronal reformations. This CT examination was performed using the following dose reduction techniques: Automated exposure control, adjustment of mA and/or kv according to the patient's size, and use of iterative reconstruction technique. FINDINGS: Atrophy with periventricular leukomalacia and microvascular ischemic changes are appreciated. The ventricles and sulci are symmetric. Keen-white differentiation is maintained. There is no evidence for acute intracranial hemorrhage, mass/mass effect, pathology or infarction. No extra-axial fluid collection. Calvarium is intact. Paranasal sinuses and mastoid air cells are clear. IMPRESSION: Atrophy and microvascular ischemic changes. No acute intracranial hemorrhage, infarction, or mass/mass effect. <Electronically signed by Herbert Hernandez > 07/23/21 0811
[2021-07-23 08:34] LABS: BLOOD UREA NITROGEN 30 MG/DL (7-18); CALCIUM LEVEL 10.6 MG/DL (8.8-10.2); CARBON DIOXIDE LEVEL 26 MEQ/L (21-32); CHLORIDE LEVEL 96 MEQ/L (98-107); CREATININE FOR GFR 1.08 MG/DL (0.70-1.30); GLOMERULAR FILTRATION RATE > 60.0 (>49); GLUCOSE, FASTING 414 MG/DL (70-100); MAGNESIUM LEVEL 2.5 MG/DL (1.8-2.4); SODIUM LEVEL 133 MEQ/L (136-145)
[2021-07-23 09:02] LABS: PHOSPHORUS LEVEL 4.3 MG/DL (2.5-4.9)
[2021-07-23 09:14] LABS: OSMOLALITY SERUM 317 MOSM/KG (280-301)
[2021-07-23 09:48] LABS: ACETONE/KETONE 28.88 MG/DL (<2.81)
[2021-07-23 09:55] LABS: CK-MB VALUE MASS < 1.0 NG/ML (<3.6); CPK CREATINE PHOSPHOKINASE 36 U/L (39-308); MB/CK RELATIVE INDEX 2.78 (< OR =4); TROPONIN I < 0.02 NG/ML (< 0.10)
[2021-07-23 10:30] LABS: HEMOGLOBIN A1c 9.7 %
[2021-07-23 12:15] VITALS: BP 156/74
--- NOTE | 2021-07-25 07:47 | ECGEPIP ---
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
--- NOTE | 2021-07-25 07:52 | ECGEPIP ---
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
== END 2021-07-23 12:37 | disposition home or self-care (01) ==
LOC: M ED 05:52
DX: G43.909 Migraine, unspecified, not intractable, without status migrainosus (principal); R11.2 Nausea with vomiting, unspecified; E11.9 Type 2 diabetes mellitus without complications; I10 Essential (primary) hypertension; E78.5 Hyperlipidemia, unspecified; M54.9 Dorsalgia, unspecified; Z87.01 Personal history of pneumonia (recurrent); K57.90 Diverticulosis of intestine, part unspecified, without perforation or abscess without bleeding; N18.30 Chronic kidney disease, stage 3 unspecified; G62.9 Polyneuropathy, unspecified; H81.09 Meniere's disease, unspecified ear; Z79.4 Long term (current) use of insulin; Z79.82 Long term (current) use of aspirin; Z79.899 Other long term (current) drug therapy; Z88.8 Allergy status to other drugs, medicaments and biological substances
CPT/HCPCS: 70450; 80048; 81001; 82010; 82550; 82553; 83036; 83735; 83930; 84100; 84484; 85025; 87040; 93005; 93041; 94760; 96374; 99285; J2405

== ENCOUNTER 2021-07-24 17:03 | Emergency (ER) | payer OTHER ==
[~2021-07-24] VITALS: Ht 180.3 cm; Wt 97.2 kg
--- OUTSIDE RECORDS SUMMARY | 2021-07-24 17:17 | CCD ---
Author Author [facility] Organization [facility] Address Unknown Phone Unavailable Care Team Providers Care Manager Custom Name Role Phone Monster BARAKAT. SULFUR[employer] PLANT SUPERVISOR TRIP Unavailable [phone] Monster BARAKAT. SULFURIC ACID PLANT SUPERVISOR TRIP Unavailable [phone] Monster BARAKAT. SULFURIC ACID PLANT SUPERVISOR TRIP Unavailable [phone] Monster BARAKAT. SULFURIC ACID PLANT SUPERVISOR TRIP Unavailable [phone] Monster BARAKAT. SULFURIC ACID PLANT SUPERVISOR TRIP Unavailable [phone] Monster BARAKAT. SULFURIC ACID PLANT SUPERVISOR TRIP Unavailable [phone] Monster BARAKAT. SULFURIC ACID PLANT SUPERVISOR TRIP Unavailable [phone] Monster BARAKAT. SULFURIC ACID PLANT SUPERVISOR TRIP Unavailable [phone] Monster BARAKAT. SULFURIC ACID PLANT SUPERVISOR TRIP Unavailable [phone] Monster BARAKAT. SULFURIC ACID PLANT SUPERVISOR TRIP Unavailable [phone] Monster BARAKAT. SULFURIC ACID PLANT SUPERVISOR TRIP Unavailable [phone] Monster BARAKAT. SULFURIC ACID PLANT SUPERVISOR TRIP Unavailable [phone] ROSHNI, A. SULFURIC ACID PLANT SUPERVISOR TRIP Unavailable [phone] Monster BARAKAT. SULFURIC ACID PLANT SUPERVISOR TRIP Unavailable [phone] Monster BARAKAT. SULFURIC ACID PLANT SUPERVISOR TRIP Unavailable [phone] Monster BARAKAT. SULFURIC ACID PLANT SUPERVISOR TRIP Unavailable [phone] Avi Frances PA PA Unavailable [phone] FrancesAvi villatoro PA PA Unavailable [phone] FrancesAvi villatoro PA PA Unavailable [phone] FrancesAvi villatoro PA PA Unavailable [phone] Avi Frances PA PA Unavailable [phone] CLARK, Francois ZUNIGA NP Unavailable Unavailable LAROCK, [...] Carmen PA Unavailable Unavailable Jumalon, M Nyla SULFURIC AC[employer] PLANT SUPERVISOR Unavailable Unavailable Jumalon, M Nyla SULFURIC ACID PLANT SUPERVISOR Unavailable Unavailable Jumalon, M Nyla SULFURIC ACID PLANT SUPERVISOR Unavailable Unavailable Jumalon, M Nyla SULFURIC ACID PLANT SUPERVISOR Unavailable Unavailable Jumalon, M Nyla SULFURIC ACID PLANT SUPERVISOR Unavailable Unavailable Jumalon, M Nyla SULFURIC ACID PLANT SUPERVISOR Unavailable Unavailable Jumalon, M Nyla SULFURIC ACID PLANT SUPERVISOR Unavailable Unavailable Jumalon, M Nyla SULFURIC ACID PLANT SUPERVISOR Unavailable Unavailable Jumalon, M Nyla SULFURIC ACID PLANT SUPERVISOR Unavailable Unavailable Jumalon, M Nyla SULFURIC ACID PLANT SUPERVISOR Unavailable Unavailable Jumalon, M Nyla SULFURIC ACID PLANT SUPERVISOR Unavailable Unavailable Jumalon, M Nyla SULFURIC ACID PLANT SUPERVISOR Unavailable Unavailable Jumalon, M Nyla SULFURIC ACID PLANT SUPERVISOR Unavailable Unavailable Jumalon, M Nyla SULFURIC ACID PLANT SUPERVISOR Unavailable Unavailable Jumalon, M Nyla SULFURIC ACID PLANT SUPERVISOR Unavailable Unavailable Jumalon, M Nyla SULFURIC ACID PLANT SUPERVISOR Unavailable Unavailable Jumalon, M Nyla SULFURIC ACID PLANT SUPERVISOR Unavailable Unavailable Jumalon, M Nyla SULFURIC ACID PLANT SUPERVISOR Unavailable Unavailable Jumalon, M Nyla SULFURIC ACID PLANT SUPERVISOR Unavailable Unavailable Jumalon, M Nyla SULFURIC ACID PLANT SUPERVISOR Unavailable Unavailable Jumalon, M Nyla SULFURIC ACID PLANT SUPERVISOR Unavailable Unavailable Jumalon, M Nyla SULFURIC ACID PLANT SUPERVISOR Unavailable Unavailable Jumalon, M Nyla SULFURIC ACID PLANT SUPERVISOR Unavailable Unavailable Jumalon, M Nyla SULFURIC ACID PLANT SUPERVISOR Unavailable Unavailable Jumalon, M Nyla SULFURIC ACID PLANT SUPERVISOR Unavailable Unavailable Jumalon, M Nyla SULFURIC ACID PLANT SUPERVISOR Unavailable Unavailable Jumalon, M Nyla SULFURIC ACID PLANT SUPERVISOR Unavailable Unavailable Jumalon, M Nyla SULFURIC ACID PLANT SUPERVISOR Unavailable Unavailable Jumalon, M Nyla SULFURIC ACID PLANT SUPERVISOR Unavailable Unavailable Jumalon, M Nyla SULFURIC ACID PLANT SUPERVISOR Unavailable Unavailable Malek, T Hamza MD Unavailable [phone] Malek, T Hamza MD Unavailable [phone] Malek, T Hamza MD Unavailable [phone] Malek, T Hamza MD Unavailable [phone] Malek, T Hamza MD Unavailable [phone] Malek, T Hamza MD Unavailable [phone] Malek, T Hamza MD Unavailable [phone] Malek, T Hamza MD Unavailable [phone] Malek, T Hamza MD Unavailable [phone] Malek, T Hamza MD Unavailable [phone] Malek, T Hamza MD Unavailable [phone] Malek, T Hamza MD Unavailable [phone] Malek, T Hamza MD Unavailable [phone] Malek, T Hamza MD Unavailable [phone] Malek, T Hamza MD Unavailable [phone] Malek, T Hamza MD Unavailable [phone] Malek, T Hamza MD Unavailable [phone] Malek, T Hamza MD Unavailable [phone] Malek, T Hamza MD Unavailable [phone] Malelinda, Paco Paloma CARLSON Unavailable [phone] Malelinda, Paco Paloma CARLSON Unavailable [phone] Malelinda, Paco Paloma CARLSON Unavailable [phone] RING, K KYLEIGH PA Unavailable Unavailable RING, [...] Szymanski MD Unavailable Unavailable CHACHO, B LESA TEXTILE CUTTING MACHINE OPERATOR Unavailable Unavailable CHACHO, B LESA TEXTILE CUTTING MACHINE OPERATOR Unavailable Unavailable CHACHO, B LESA TEXTILE CUTTING MACHINE OPERATOR Unavailable Unavailable CHACHO, B LESA TEXTILE CUTTING MACHINE OPERATOR Unavailable Unavailable CHACHO, B LESA TEXTILE CUTTING MACHINE OPERATOR Unavailable Unavailable CHACHO, B LESA TEXTILE CUTTING MACHINE OPERATOR Unavailable Unavailable CHACHO, B LESA TEXTILE CUTTING MACHINE OPERATOR Unavailable Unavailable CHACHO, B LESA TEXTILE CUTTING MACHINE OPERATOR Unavailable Unavailable CHACHO, B LESA TEXTILE CUTTING MACHINE OPERATOR Unavailable Unavailable CHACHO, B LESA TEXTILE CUTTING MACHINE OPERATOR Unavailable Unavailable CHACHO, B LESA TEXTILE CUTTING MACHINE OPERATOR Unavailable Unavailable CHACHO, B LESA TEXTILE CUTTING MACHINE OPERATOR Unavailable Unavailable CHACHO, B LESA TEXTILE CUTTING MACHINE OPERATOR Unavailable Unavailable CHACHO, B LESA TEXTILE CUTTING MACHINE OPERATOR Unavailable Unavailable CHACHO, B LESA TEXTILE CUTTING MACHINE OPERATOR Unavailable Unavailable CHACHO, B LESA TEXTILE CUTTING MACHINE OPERATOR Unavailable Unavailable CHACHO, B LESA TEXTILE CUTTING MACHINE OPERATOR Unavailable Unavailable CHACHO, B LESA TEXTILE CUTTING MACHINE OPERATOR Unavailable Unavailable CHACHO, B LESA TEXTILE CUTTING MACHINE OPERATOR Unavailable Unavailable CHACHO, B LESA TEXTILE CUTTING MACHINE OPERATOR Unavailable Unavailable CHACHO, B LESA TEXTILE CUTTING MACHINE OPERATOR Unavailable Unavailable CHACHO, B LESA TEXTILE CUTTING MACHINE OPERATOR Unavailable Unavailable CHACHO, B LESA TEXTILE CUTTING MACHINE OPERATOR Unavailable Unavailable CHACHO, B LESA TEXTILE CUTTING MACHINE OPERATOR Unavailable Unavailable CHACHO, B LESA TEXTILE CUTTING MACHINE OPERATOR Unavailable Unavailable CHACHO, B LESA TEXTILE CUTTING MACHINE OPERATOR Unavailable Unavailable CHACHO, B LESA TEXTILE CUTTING MACHINE OPERATOR Unavailable Unavailable CHACHO, B LESA TEXTILE CUTTING MACHINE OPERATOR Unavailable Unavailable CHACHO, B LESA TEXTILE CUTTING MACHINE OPERATOR Unavailable Unavailable CHACHO, B LESA TEXTILE CUTTING MACHINE OPERATOR Unavailable Unavailable CHACHO, B LESA TEXTILE CUTTING MACHINE OPERATOR Unavailable Unavailable CHACHO, B LESA TEXTILE CUTTING MACHINE OPERATOR Unavailable Unavailable CHACHO, B LESA TEXTILE CUTTING MACHINE OPERATOR Unavailable Unavailable CHACHO, B LESA TEXTILE CUTTING MACHINE OPERATOR Unavailable Unavailable CHACHO, B LESA TEXTILE CUTTING MACHINE OPERATOR Unavailable Unavailable CHACHO, B LESA TEXTILE CUTTING MACHINE OPERATOR Unavailable Unavailable CHACHO, B LESA TEXTILE CUTTING MACHINE OPERATOR Unavailable Unavailable CHACHO, B LESA TEXTILE CUTTING MACHINE OPERATOR Unavailable Unavailable CHACHO, B LESA TEXTILE CUTTING MACHINE OPERATOR Unavailable Unavailable CHACHO, B LESA TEXTILE CUTTING MACHINE OPERATOR Unavailable Unavailable CHACHO, B LESA TEXTILE CUTTING MACHINE OPERATOR Unavailable Unavailable CHACHO, B LESA TEXTILE CUTTING MACHINE OPERATOR Unavailable Unavailable CHACHO, B LESA TEXTILE CUTTING MACHINE OPERATOR Unavailable Unavailable CHACHO, B LESA TEXTILE CUTTING MACHINE OPERATOR Unavailable Unavailable CHACHO, B LESA TEXTILE CUTTING MACHINE OPERATOR Unavailable Unavailable CHACHO, B LESA TEXTILE CUTTING MACHINE OPERATOR Unavailable Unavailable CHACHO, B LESA TEXTILE CUTTING MACHINE OPERATOR Unavailable Unavailable CHACHO, B LESA TEXTILE CUTTING MACHINE OPERATOR Unavailable Unavailable CHACHO, B LESA TEXTILE CUTTING MACHINE OPERATOR Unavailable Unavailable CHACHO, B LESA TEXTILE CUTTING MACHINE OPERATOR Unavailable Unavailable CHACHO, B LESA TEXTILE CUTTING MACHINE OPERATOR Unavailable Unavailable CHACHO, B LESA TEXTILE CUTTING MACHINE OPERATOR Unavailable Unavailable CAHCHO, B LESA TEXTILE CUTTING MACHINE OPERATOR Unavailable Unavailable CHACHO, B LESA TEXTILE CUTTING MACHINE OPERATOR Unavailable Unavailable CHACHO, B LESA TEXTILE CUTTING MACHINE OPERATOR Unavailable Unavailable CHACHO, B LESA TEXTILE CUTTING MACHINE OPERATOR Unavailable Unavailable CHACHO, B LESA TEXTILE CUTTING MACHINE OPERATOR Unavailable Unavailable CHACHO, B LESA TEXTILE CUTTING MACHINE OPERATOR Unavailable Unavailable CHACHO, B LESA TEXTILE CUTTING MACHINE OPERATOR Unavailable Unavailable CHACHO, B LESA TEXTILE CUTTING MACHINE OPERATOR Unavailable Unavailable CHACHO, B LESA TEXTILE CUTTING MACHINE OPERATOR Unavailable Unavailable CHACHO, B LESA TEXTILE CUTTING MACHINE OPERATOR Unavailable Unavailable Navarro, Leila SOTELO Unavailable Unavailable [...] Lanny Smith MD Unavailable Unavailable Fish, B Saarh CARLSON Unavailable Unavailable Fish, B Sarah CARLSON [...] Lanny Smith MD Unavailable Unavailable Fish, Lanny Simth MD Unavailable Unavailable Fish, Lanny Smith MD [...] Sarah MD Unavailable Unavailable Alex Mae Unavailable [phone] Alex Mae Unavailable [phone] Alex Mae Unavailable [phone] Alex Mae Unavailable [phone] Alex Mae Unavailable [phone] Alex Mae Unavailable [phone] Campanaro, Mare Deborah PA Unavailable Unavailable Campanaro, [...] is protected by Article 27-F of the [place] State Public Health law. If you continue you may have access to information: Regarding HIV / AIDS; Provided by facilities licensed or operated by the [facility] Office of Mental Health; or Provided by the [facility] Office for People With Developmental Disabilities. If such information is present, then the following [facility] mandated warning applies: This information [...] law may result in a fine or nursing home sentence or both. A general authorization for the release of medical or other information is NOT sufficient authorization for further disc losure. Family History Family Member Name Family Member Gender Family Member Status Date o f Status Description Data Source(s) Unknown Female Problem MEDENT ([facility]) Unknown Female Problem MEDENT ([facility]) Unknown Female Problem MEDENT ([facility]) Encounters Encounter Providers Location Date Indications Data Source(s ) Outpatient Attender: Carlos SOTELO 07/09/20 07:33:41 AM EDT - 07/09/2021 08:05:52 AM EDT [facility] ([facility] ) Outpatient Attender: TRIP BARAKAT 06/06 05:59:04 PM EDT - 06/29/2021 07:05:45 PM EDT [facility] ([facility] ) Preadmit Attender: Mickey Nash PA-C 06/09/2021 05:42:00 P M [facility] Outpatient Attender: Alex Mae 06/02 11:55:14 AM EDT - 06/02/2021 01:04:09 PM EDT [facility] ([facility] ) Outpatient Attender: Paloma Monreal MD [facility] 05/22 02:59:00 PM EDT - 05/22/2021 03:00:00 PM EDT [facility] Patient discharged. Nyla Boland, TEXTILE CUTTING MACHINE OPERATOR: [address], [address], [place] [address], Ph. Attender: Nyla Boland SULF[employer]ID PLANT SUPERVISOR [place] - [facility] 05/05/2021 12:00:00 AM EDT ATHE NA ([facility]) Nyla Boland, TEXTILE CUTTING MACHINE OPERATOR: [address], [place] [address], Ph. Attender: Nyla Boland [facility] 04/10/2021 12:00:00 AM EDT ATHE NA ([facility]) Nyla Boland, TEXTILE CUTTING MACHINE OPERATOR: [address], [place] [address], Ph. Attender: Nyla Boland [facility] 04/10/2021 12:00:00 AM EDT ATHAvi NA ([facility]) Outpatient Attender: Carlos SOTELO 04/08/20 04:40:14 PM EDT - 04/08/2021 05:36:44 PM EDT [facility] ([facility] ) Outpatient Attender: Sarah Lee MD Physical Therapy 02/20 03:30:00 PM EDT MEG ([facility] ) Nyla Boland, TEXTILE CUTTING MACHINE OPERATOR: [address], [place] [address], Ph. Attender: Nyla Boland [facility] 02/13/2021 12:00:00 AM EDT ATHE NA ([facility]) Nyla Boland, TEXTILE CUTTING MACHINE OPERATOR: [address], [place] [address], Ph. Attender: Nyla Boland [facility] 02/13/2021 12:00:00 AM EDT ATHE NA ([facility]) Nyla Boland, TEXTILE CUTTING MACHINE OPERATOR: [address], [place] [address], Ph. Attender: Nyla CASTRO [place] - [facility] 02/13/2021 12:00:00 AM EDT ATHE NA ([facility]) Stephon Cullen MD: [address], [place] [address], Ph. Attender: Stephon Cullen MD [place] - [facility] 01/26/2021 12:00:00 AM EDT ROLANDO ([facility]) Stephon Cullen MD: [address], [address] [place], [place] [address], Ph. Attender: Stephon Cullen MD [place] - [facility] 01/26/2021 12:00:00 AM EDT ROLANDO ([facility]) Stephon Cullen MD: [address], [address] [place], [place] [address], Ph. Attender: Stephon Cullen MD [place] - [facility] 01/26/2021 12:00:00 AM EDT ROLANDO ([facility]) Stephon Cullen MD: [address], [address] [place], [place] [address], Ph. Attender: Stephon Cullen MD [place] - [facility] 01/26/2021 12:00:00 AM EDT ROLANDO ([facility]) Outpatient Attender: Carmen SOTELO [facility] 01/23/2021 09:00:00 AM EDT MEDENT ([facility]) [place] [address] [address] 01/21/2021 12:00:00 AM EDT eCW1 ([facility]) Nyla Boland, TEXTILE CUTTING MACHINE OPERATOR: [address], [address], [place] [address], Ph. Attender: Nyla Boland [facility] 01/16/2021 12:00:00 AM EDT ATHE NA ([facility]) Nyla Boland, TEXTILE CUTTING MACHINE OPERATOR: [address], [address], [place] [address], Ph. Attender: Nyla Boland [facility] - [facility] 01/16/2021 12:00:00 AM EDT ATHE NA ([facility]) Nyla Boland, TEXTILE CUTTING MACHINE OPERATOR: [address], [address], [place] [address], Ph. Attender: Nyla Boland [facility] 01/16/2021 12:00:00 AM EDT ATHE NA ([facility]) Nyla Boland, TEXTILE CUTTING MACHINE OPERATOR: [address], [address], [place] [address], Ph. Attender: Nyla Boland [facility] 01/16/2021 12:00:00 AM EDT ATHE NA ([facility]) Nyla Boland, TEXTILE CUTTING MACHINE OPERATOR: [address], [address], [place] [address], Ph. Attender: Nyla Boland [facility] 01/16/2021 12:00:00 AM EDT ATHE NA ([facility]) Outpatient Attender: KYLEIGH [facility] 01/15/2021 03:35:00 PM EDT MEG ([facility]) Outpatient Attender: LEXX [facility] 01/12 11:17:28 AM EDT - 01/12/2021 11:59:39 AM EDT [facility] ([facility] ) [place] [address] [facility] [address] 01/08/2021 12:00:00 AM EDT eCW1 ([facility]) Unknown [address] [address] 12/29/2020 12:00:00 AM EDT eCW1 ([facility]) Nyla Boland, TEXTILE CUTTING MACHINE OPERATOR: [address], [place] [address], Ph. Attender: Nyla Boland [facility] - [facility] 12/19/2020 12:00:00 AM EDT ATHAvi GUERRERO ([facility]) Nyla Boland, TEXTILE CUTTING MACHINE OPERATOR: [address], [place] [address], Ph. Attender: Nyla Boland [facility] 12/19/2020 12:00:00 AM EDT ATHE NA ([facility]) Nyla Boland, TEXTILE CUTTING MACHINE OPERATOR: [address], [place] [address], Ph. Attender: Nyla Boland [facility] 12/19/2020 12:00:00 AM EDT ATHE NA ([facility]) Nyla Boland, TEXTILE CUTTING MACHINE OPERATOR: [address], [place] [address], Ph. Attender: Nyla Boland [facility] - [facility] 12/19/2020 12:00:00 AM EDT ATHAvi NA ([facility]) Nyla Boland, TEXTILE CUTTING MACHINE OPERATOR: [address], [place] [address], Ph. Attender: Nyla Boland [facility] - [facility] 12/19/2020 12:00:00 AM EDT ATHE NA ([facility]) Nyla Boland, TEXTILE CUTTING MACHINE OPERATOR: [address], [address], [place] [address], Ph. Attender: Nyla Boland [facility] - [facility] 12/19/2020 12:00:00 AM EDT ATHAvi NA ([facility]) Stephon Cullen MD: [address], [place] [address], Ph. Attender: Stephon Cullen MD [place] - [facility] 12/04/2020 12:00:00 AM EDT ROLANDO ([facility]) Stephon Cullen MD: [address], [place] [address], Ph. Attender: Stephon Cullen MD [place] - [facility] 12/04/2020 12:00:00 AM EDT ROLANDO ([facility]) Stephon Cullen MD: [address], [place] [address], Ph. Attender: Stephon Cullen MD [place] - [facility] 12/04/2020 12:00:00 AM EDT ROLANDO ([facility]) Stephon Cullen MD: [address], [place] [address], Ph. Attender: Stephon Cullen MD [place] - [facility] 12/04/2020 12:00:00 AM EDT ROLANDO ([facility]) Stephon Cullen MD: [address], [address], [place] [address], Ph. Attender: Stephon Cullen MD [place] - [facility] 12/04/2020 12:00:00 AM EDT ROLANDO ([facility]) Stephon Cullen MD: [address], [place] [address], Ph. Attender: Stephon Cullen MD [place] - [facility] 12/04/2020 12:00:00 AM EDT ROLANDO ([facility]) Stephon Cullen MD: [address], [place] [address], Ph. Attender: Stephon Cullen MD [place] - [facility] 12/04/2020 12:00:00 AM EDT ROLANDO ([facility]) Outpatient Attender: LESA FLOR NP Physical Therapy 08:45:00 AM EDT MEDENT ([facility]) Stephon Cullen MD: [address], [place] [address], Ph. [phone] Attender: Stephon VILLARREAL - [facility] 12/01/2020 12:00:00 AM EDT ROLANDO ([facility]) Stephon Cullen MD: [address], [place] [address], Ph. [phone] Attender: Stephon VILLARREAL - [facility] 12/01/2020 12:00:00 AM EDT ROLANDO ([facility]) Stephon Cullen MD: [address], [place] [address], Ph. [phone] Attender: Stephon VILLARREAL - [facility] 12/01/2020 12:00:00 AM EDT ROLANDO ([facility]) Stephon Cullen MD: [address], [place] [address], Ph. [phone] Attender: Stephon Cullen MD [place] - [facility] 12/01/2020 12:00:00 AM EDT ROLANDO ([facility]) Stephon Cullen MD: [address], [place] [address], Ph. [phone] Attender: Stephon Cullen MD [place] - [facility] 12/01/2020 12:00:00 AM EDT ROLANDO ([facility]) Stephon Cullen MD: [address], [place] [address], Ph. [phone] Attender: Stephon Cullen MD [place] - [facility] 12/01/2020 12:00:00 AM EDT ROLANDO ([facility]) Stephon Cullen MD: [address], [place] [address], Ph. [phone] Attender: Stephon Cullen [place] - [facility] 12/01/2020 12:00:00 AM EDT ROLANDO ([facility]) Stephon Cullen MD: [address], [place] [address], Ph. [phone] Attender: Stephon Cullen MD [place] - [facility] 12/01/2020 12:00:00 AM EDT ROLANDO ([facility]) Nyla Boland, TEXTILE CUTTING MACHINE OPERATOR: [address], [address], [place] [address], Ph. Attender: Nyla [facility] - [facility] 11/27/2020 12:00:00 AM EDT ATHE NA ([facility]) Nyla Boland, TEXTILE CUTTING MACHINE OPERATOR: [address], [address], [place] [address], Ph. Attender: Nyla Boland [facility] - [facility] 11/27/2020 12:00:00 AM EDT ATHE NA ([facility]) Nyla Boland, TEXTILE CUTTING MACHINE OPERATOR: [address], [address], [place] [address], Ph. Attender: Nyla Boland [facility] - [facility] 11/27/2020 12:00:00 AM EDT ATHE NA ([facility]) Nyla Boland, TEXTILE CUTTING MACHINE OPERATOR: [address], [place] [address], Ph. Attender: Nyla Boland [facility] - [facility] 11/27/2020 12:00:00 AM EDT ATHE NA ([facility]) Nyla Boland, TEXTILE CUTTING MACHINE OPERATOR: [address], [place] [address], Ph. Attender: Nyla Boland [facility] - [facility] [facility] 11/27/2020 12:00:00 AM EDT ATHE NA ([facility]) Nyla Boland, TEXTILE CUTTING MACHINE OPERATOR: [address], [address], [place] [address], Ph. Attender: Nyla Boland [facility] - [facility] 11/27/2020 12:00:00 AM EDT ATHE NA ([facility]) Nyla Boland, TEXTILE CUTTING MACHINE OPERATOR: [address], [address], [place] [address], Ph. Attender: Nyla Boland [facility] - [facility] 11/27/2020 12:00:00 AM EDT ATHE NA ([facility]) Nyla Boland, TEXTILE CUTTING MACHINE OPERATOR: [address], [place] [address], Ph. Attender: Nyla Boland [facility] - [facility] 11/27/2020 12:00:00 AM EDT ATHE NA ([facility]) Nyla Boland, TEXTILE CUTTING MACHINE OPERATOR: [address], [place] [address], Ph. Attender: Nyla Boland [facility] 11/27/2020 12:00:00 AM EDT ATHE NA ([facility]) Outpatient Attender: NADIA RODAS NP 11/03 04:40:12 PM EDT - 11/20/2020 05:44:42 PM EDT Mavis ([facility] ) Nyla Boland, TEXTILE CUTTING MACHINE OPERATOR: [address], [place] [address], Ph. Attender: Nyla Boland [facility] - [facility] 11/14/2020 12:00:00 AM EST ATHE NA ([facility]) Nyla Boland, TEXTILE CUTTING MACHINE OPERATOR: [address], [place] [address], Ph. Attender: Nyla Boland [facility] - [facility] 11/14/2020 12:00:00 AM EST ATHE NA ([facility]) Nyla Boland, TEXTILE CUTTING MACHINE OPERATOR: [address], [place] [address], Ph. Attender: Nyla Boland [facility] - [facility] 11/14/2020 12:00:00 AM EST ATHE NA ([facility]) Nyla Boland, TEXTILE CUTTING MACHINE OPERATOR: [address], [place] [address], Ph. Attender: Nyla Boland [facility] - [facility] 11/14/2020 12:00:00 AM EST ATHE NA ([facility]) Nyla Boland, TEXTILE CUTTING MACHINE OPERATOR: [address], [place] [address], Ph. Attender: Nyla Boland [facility] - [facility] 11/14/2020 12:00:00 AM EST ATHE NA ([facility]) Nyla Boland, TEXTILE CUTTING MACHINE OPERATOR: [address], [place] [address], Ph. Attender: Nyla Boland [facility] - [facility] 11/14/2020 12:00:00 AM EST ATHE NA ([facility]) Nyla Boland, TEXTILE CUTTING MACHINE OPERATOR: [address], [place] [address], Ph. Attender: Nyla Boland [facility] - [facility] 11/14/2020 12:00:00 AM EST ATHE NA ([facility]) Nyla Boland, TEXTILE CUTTING MACHINE OPERATOR: [address], [place] [address], Ph. Attender: Nyla Boland [facility] - [facility] 11/14/2020 12:00:00 AM EST ATHE NA ([facility]) Nyla Boland, TEXTILE CUTTING MACHINE OPERATOR: [address], [address], [place] [address], Ph. Attender: Nyla Boland [facility] 11/14/2020 12:00:00 AM EST ATHE NA ([facility]) Nyla Boland, TEXTILE CUTTING MACHINE OPERATOR: [address], [address], [place] [address], Ph. Attender: Nyla Boland [facility] - [facility] 11/14/2020 12:00:00 AM EST ATHE NA ([facility]) Outpatient Attender: Marva SOTELO [facility]PSCAN[facility] 0 11/13/2020 11:16:00 AM EST - 11/13/2020 11:17:00 AM EST [facility] Patient discharged. Outpatient Attender: Gena barragany 11/07/2020 09:45:00 AM EST MEDENT ([facility]) Nyla Boland, TEXTILE CUTTING MACHINE OPERATOR: [address], [place] [address], Ph. Attender: Nyla Boland [facility] 09/26/2020 12:00:00 AM EST ATHE NA ([facility]) Nyla Boland, TEXTILE CUTTING MACHINE OPERATOR: [address], [address], [place] [address], Ph. Attender: Nyla Boland [facility] 09/26/2020 12:00:00 AM EST ATHE NA ([facility]) Nyla Boland, TEXTILE CUTTING MACHINE OPERATOR: [address], [place] [address], Ph. Attender: Nyla Boland [employer] [place] - [facility] 09/26/2020 12:00:00 AM EST ATHE NA ([facility]) Nyla Boland, TEXTILE CUTTING MACHINE OPERATOR: [address], [place] [address], Ph. Attender: Nyla Boland [facility] - [facility] 09/26/2020 12:00:00 AM EST ATHE NA ([facility]) Nyla Boland, TEXTILE CUTTING MACHINE OPERATOR: [address], [place] [address], Ph. Attender: Nyla Boland [facility] - [facility] 09/26/2020 12:00:00 AM EST ATHE NA ([facility]) Nyla Boland, TEXTILE CUTTING MACHINE OPERATOR: [address], [place] [address], Ph. Attender: Nyla Boland [facility] - [facility] 09/26/2020 12:00:00 AM EST ATHE NA ([facility]) Nyla Boland, TEXTILE CUTTING MACHINE OPERATOR: [address], [place] [address], Ph. Attender: Nyla Boland [facility] - [facility] 09/26/2020 12:00:00 AM EST ATHE NA ([facility]) Nyla Boland, TEXTILE CUTTING MACHINE OPERATOR: [address], [address], [place] [address], Ph. Attender: Nyla Boland [facility] - [facility] 09/26/2020 12:00:00 AM EST ATHE NA ([facility]) Nyla Boland, TEXTILE CUTTING MACHINE OPERATOR: [address], [address], [place] [address], Ph. Attender: Nyla Boland [facility] - [facility] 09/26/2020 12:00:00 AM EST ATHE NA ([facility]) Nyla Boland, TEXTILE CUTTING MACHINE OPERATOR: [address], [place] [address], Ph. Attender: Nyla Boland [facility] - [facility] 09/26/2020 12:00:00 AM EST ATHE NA ([facility]) Nyla Boland, TEXTILE CUTTING MACHINE OPERATOR: [address], [place] [address], Ph. Attender: Nyla Boland [facility] - [facility] 09/26/2020 12:00:00 AM EST ATHE NA ([facility]) Stephon Cullen MD: [address]891 [address], [place] [address], Ph. Attender: Stephon Cullen [place] - [facility] 09/11/2020 12:00:00 AM EST ROLANDO ([facility]) Stephon Cullen MD: [address]19 [address], [place] [address], Ph. Attender: Stephon Cullen [place] - [facility] 09/11/2020 12:00:00 AM EST ROLANDO ([facility]) Stephon Cullen MD: 07978 [address], [place] [address], Ph. Attender: Stephon Cullen [place] - [facility] 09/11/2020 12:00:00 AM EST ROLANDO ([facility]) Stephon Cullen MD: [address]18 [address], [address], [place] [address], Ph. Attender: Stephon Cullen [place] - [facility] 09/11/2020 12:00:00 AM EST ROLANDO ([facility]) Stephon Cullen MD: [address]18 [address], [place] [address], Ph. Attender: Stephon Cullen [place] - [facility] 09/11/2020 12:00:00 AM EST ROLANDO ([facility]) Stephon Cullen MD: [address]14 [address], [place] [address], Ph. Attender: Stephon Cullen [place] - [facility] 09/11/2020 12:00:00 AM EST ROLANDO ([facility]) Stephon Cullen MD: 84176 [address], [place] [address], Ph. Attender: Stephon Cullen [place] - [facility] 09/11/2020 12:00:00 AM EST ROLANDO ([facility]) Stephon Cullen MD: [address]1060 [address], [place] [address], Ph. Attender: Stephon Cullen [place] - [facility] 09/11/2020 12:00:00 AM EST ROLANDO ([facility]) Stephon Cullen MD: 19145 [address], [place] [address], Ph. Attender: Stephon VILLARREAL - [facility] 09/11/2020 12:00:00 AM EST ROLANDO ([facility]) Stephon Cullen MD: 87451 [address], [place] [address], Ph. Attender: Stephon Cullen MD [place] - [facility] 09/11/2020 12:00:00 AM EST ROLANDO ([facility]) Stephon Cullen MD: 07474 [address], [place] [address], Ph. Attender: Stephon Cullen MD [place] - [facility] 09/11/2020 12:00:00 AM EST ROLANDO ([facility]) Outpatient Attender: LESA FLOR NP Physical Therapy 08:00:00 AM EST MEDENT ([facility]) Stephon Cullen MD: [address]24 [address], [place] [address], Ph. [phone] Attender: Stephon VILLARREAL - [facility] 09/08/2020 12:00:00 AM EST ROLANDO ([facility]) Stephon Cullen MD: [address]62 [address], [place] [address], Ph. [phone] Attender: Stephon VILLARREAL - [facility] 09/08/2020 12:00:00 AM EST ROLANDO ([facility]) Stephon Cullen MD: [address]459 [address], [place] [address], Ph. [phone] Attender: Stephon Cullen MD [place] - [facility] 09/08/2020 12:00:00 AM EST ROLANDO ([facility]) Stephon Cullen MD: [address]50 [address], [place] [address], Ph. [phone] Attender: Stephon VILLARREAL - [facility] 09/08/2020 12:00:00 AM EST ROLANDO ([facility]) Stephon Cullen MD: [address]6096 [address], [address], [place] [address], Ph. [phone] Attender: Stephon Cullen MD [place] - [facility] 09/08/2020 12:00:00 AM EST ROLANDO ([facility]) Stephon Cullen MD: 65334 [address], [address], [place] [address], Ph. [phone] Attender: Stephon Cullen MD [place] - [facility] 09/08/2020 12:00:00 AM EST ROLANDO ([facility]) Stephon Cullen MD: 22356 [address], [place] [address], Ph. [phone] Attender: Stephon Cullen MD [place] - [facility] 09/08/2020 12:00:00 AM EST ROLANDO ([facility]) Stephon Cullen MD: 0[address]19 [address], [address], [place] [address], Ph. [phone] Attender: Stephon Cullen MD [place] - [facility] 09/08/2020 12:00:00 AM EST ROLANDO ([facility]) Stephon Cullen MD: 23253 [address], [address], [place] [address], Ph. [phone] Attender: Stephon Cullen MD [place] - [facility] 09/08/2020 12:00:00 AM EST ROLANDO ([facility]) Stephon Cullen MD: 27105 [address], [place] [address], Ph. [phone] Attender: Stephon Cullen MD [place] - [facility] 09/08/2020 12:00:00 AM EST ROLANDO ([facility]) Stephon Cullen MD: [address]17 [address], [address], [place] [address], Ph. [phone] Attender: Stephon Cullen MD [place] - [facility] 09/08/2020 12:00:00 AM EST ROLANDO ([facility]) Stephon Cullen MD: 62950 [address], [address], [place] [address], Ph. [phone] Attender: Stephon Cullen MD [place] - [facility] 09/08/2020 12:00:00 AM EST ROLANDO ([facility]) Stephon Cullen MD: 70949 [address], [address], [place] [address], Ph. Attender: Stephon Cullen MD [place] - [facility] 08/18/2020 12:00:00 AM EST ROLANDO ([facility]) Stephon Cullen MD: [address]00 [address], [address], [place] [address], Ph. Attender: Stephon VILLARREAL - [facility] 08/18/2020 12:00:00 AM EST ROLANDO ([facility]) Stephon Cullen MD: [address]00 [address], [address], [place] [address], Ph. Attender: Stephon Cullen MD [place] - [facility] 08/18/2020 12:00:00 AM EST ROLANDO ([facility]) Stephon Cullen MD: 58487 [address], [address], [place] [address], Ph. Attender: Stephon VILLARREAL - [facility] 08/18/2020 12:00:00 AM EST ROLANDO ([facility]) Stephon Cullen MD: 54548 [address], [address], [place] [address], Ph. Attender: Stephon Cullen MD [place] - [facility] 08/18/2020 12:00:00 AM EST ROLANDO ([facility]) Stephon Cullen MD: 10036 [address], [address], [place] [address], Ph. Attender: Stephon VILLARREAL - [facility] 08/18/2020 12:00:00 AM EST ROLANDO ([facility]) Stephon Cullen MD: 70629 [address], [address], [place] [address], Ph. Attender: Stephon VILLARREAL - [facility] 08/18/2020 12:00:00 AM EST ROLANDO ([facility]) Stephon Cullen MD: 71136 [address], [address], [place] [address], Ph. Attender: Stephon VILLARREAL - [facility] 08/18/2020 12:00:00 AM EST ROLANDO ([facility]) Stephon Cullen MD: 52270 [address], [address], [place] [address], Ph. Attender: Stephon VILLARREAL - [facility] 08/18/2020 12:00:00 AM EST ROLANDO ([facility]) Stephon Cullen MD: 19318 [address], [address], [place] [address], Ph. Attender: Stephon VILLARREAL - [facility] 08/18/2020 12:00:00 AM EST ROLANDO ([facility]) Stephon Cullen MD: 67198 [address], [address], [place] [address], Ph. Attender: Stephon Cullen MD [place] - [facility] 08/18/2020 12:00:00 AM EST ROLANDO ([facility]) Stephon Cullen MD: 60050 [address], [place] [address], Ph. Attender: Stephon Cullen MD [place] - [facility] 08/18/2020 12:00:00 AM EST ROLANDO ([facility]) Stephon Cullen MD: 24030 [address], [address], [place] [address], Ph. Attender: Stephon VILLARREAL - [facility] 08/18/2020 12:00:00 AM EST ROLANDO ([facility]) Stephon Cullen MD: 54395 [address], [place] [address], Ph. [phone] Attender: Stephon Cullen MD [place] - [facility] 08/13/2020 12:00:00 AM EST ROLANDO ([facility]) Stephon Cullen MD: 69675 [address], [address], [place] [address], Ph. [phone] Attender: Stephon Cullen MD [place] - [facility] 08/13/2020 12:00:00 AM EST ROLANDO ([facility]) Stephon Cullen MD: 41284 [address], [place] [address], Ph. [phone] Attender: Stephon VILLARREAL - [facility] 08/13/2020 12:00:00 AM EST ROLANDO ([facility]) Stephon Cullen MD: 83327 [address], [place] [address], Ph. [phone] Attender: Stephon Cullen MD [place] - [facility] 08/13/2020 12:00:00 AM EST ROLANDO ([facility]) Stephon Cullen MD: 02611 [address], [address], [place] [address], Ph. [phone] Attender: Stephon Cullen MD [place] - [facility] 08/13/2020 12:00:00 AM EST ROLANDO ([facility]) Stephon Cullen MD: 58125 [address], [address], [place] [address], Ph. [phone] Attender: Stephon Cullen MD [place] - [facility] 08/13/2020 12:00:00 AM EST ROLANDO ([facility]) Stephon Cullen MD: 09576 [address], [address], [place] [address], Ph. [phone] Attender: Stephon VILLARREAL - [facility] 08/13/2020 12:00:00 AM EST ROLANDO ([facility]) Stephon Cullen MD: 41092 [address], [address], [place] [address], Ph. [phone] Attender: Stephon Cullen MD [place] - [facility] 08/13/2020 12:00:00 AM EST ROLANDO ([facility]) Stephon Cullen MD: 03214 [address], [place] [address], Ph. [phone] Attender: Stephon Cullen MD [place] - [facility] 08/13/2020 12:00:00 AM EST ROLANDO ([facility]) Stephon uCllen MD: 85848 [address], [address], [place] [address], Ph. [phone] Attender: Stephon Cullen MD [place] - [facility] 08/13/2020 12:00:00 AM EST ROLANDO ([facility]) Stephon Cullen MD: 18305 [address], [address], [place] [address], Ph. [phone] Attender: Stephon Cullen MD [place] - [facility] 08/13/2020 12:00:00 AM EST ROLANDO ([facility]) Stephon Cullen MD: 67937 [address], [place] [address], Ph. [phone] Attender: Stephon Cullen MD [place] - [facility] 08/13/2020 12:00:00 AM EST ROLANDO ([facility]) Stephon Cullen MD: 82439 [address], [place] [address], Ph. [phone] Attender: Stephon Cullen MD [place] - [facility] 08/13/2020 12:00:00 AM EST ROLANDO ([facility]) Stephon Cullen MD: 51655 [address], [place] [address], Ph. [phone] Attender: Stephon Cullen MD [place] - [facility] 08/13/2020 12:00:00 AM EST ROLANDO ([facility]) Nyla Boland, TEXTILE CUTTING MACHINE OPERATOR: [address]10 [address], [place] [address], Ph. Attender: Nyla Boland [facility] 08/06/2020 12:00:00 AM EST ATHE NA ([facility]) Nyla Boland, TEXTILE CUTTING MACHINE OPERATOR: [address]14 [address], [place] [address], Ph. Attender: Nyla Boland [facility] - [facility] 08/06/2020 12:00:00 AM EST ATHE NA ([facility]) Nyla Boland, TEXTILE CUTTING MACHINE OPERATOR: 61427 [address], [place] [address], Ph. Attender: Nyla Boland [facility] - [facility] 08/06/2020 12:00:00 AM EST ATHE NA ([facility]) Nyla Boland, TEXTILE CUTTING MACHINE OPERATOR: [address]1029 [address], [place] [address], Ph. Attender: Nyla Boland [facility] - [facility] 08/06/2020 12:00:00 AM EST ATHE NA ([facility]) Nyla Boland, TEXTILE CUTTING MACHINE OPERATOR: [address]16 [address], [place] [address], Ph. Attender: Nyla Boland [facility] - [facility] 08/06/2020 12:00:00 AM EST ATHE NA ([facility]) Nyla Boland, TEXTILE CUTTING MACHINE OPERATOR: [address]15 [address], [place] [address], Ph. Attender: Nyla Boland [facility] - [facility] 08/06/2020 12:00:00 AM EST ATHE NA ([facility]) Nyla Boland, TEXTILE CUTTING MACHINE OPERATOR: 64065 [address], [place] [address], Ph. Attender: Nyla Boland [facility] - [facility] 08/06/2020 12:00:00 AM EST ATHE NA ([facility]) Nyla Boland, TEXTILE CUTTING MACHINE OPERATOR: 13448 [address], [place] [address], Ph. Attender: Nyla Boland [facility] - [facility] 08/06/2020 12:00:00 AM EST ATHE NA ([facility]) Nyla Boland, TEXTILE CUTTING MACHINE OPERATOR: 65598 [address], [address], [place] [address], Ph. Attender: Nyla Boland [facility] - [facility] 08/06/2020 12:00:00 AM EST ATHE NA ([facility]) Nyla Boland, TEXTILE CUTTING MACHINE OPERATOR: 85307 [address], [address], [place] [address], Ph. Attender: Nyla Boland [facility] - [facility] 08/06/2020 12:00:00 AM EST ATHE NA ([facility]) Nyla Boland, TEXTILE CUTTING MACHINE OPERATOR: 19963 [address], [place] [address], Ph. Attender: Nyla Boland [facility] - [facility] 08/06/2020 12:00:00 AM EST ATHE NA ([facility]) Nyla Boland, TEXTILE CUTTING MACHINE OPERATOR: 96147 [address], [place] [address], Ph. Attender: Nyla Boland [facility] - [facility] 08/06/2020 12:00:00 AM EST ATHE NA ([facility]) Nyla Boland, TEXTILE CUTTING MACHINE OPERATOR: 31958 [address], [address], [place] [address], Ph. Attender: Nyla Boland [facility] - [facility] 08/06/2020 12:00:00 AM EST ATHE NA ([facility]) Nyla Boland, TEXTILE CUTTING MACHINE OPERATOR: 55644 [address], [place] [address], Ph. Attender: Nylaavi Perlajose [facility] - [facility] 08/06/2020 12:00:00 AM EST ATHE NA ([facility]) Nyla Boland, TEXTILE CUTTING MACHINE OPERATOR: [address]16 [address], [place] [address], Ph. Attender: Nyla Boland [facility] - [facility] 08/06/2020 12:00:00 AM EST ATHE NA ([facility]) Outpatient Attender: Carmen SOTELO [facility] 07/22/2020 08:00:00 AM EST MEDENT ([facility] raymundo, ) Nyla Boland, TEXTILE CUTTING MACHINE OPERATOR: [address], [place] [address], Ph. Attender: Nyla Boland [facility] 07/03/2020 12:00:00 AM EDT ATHE NA ([facility]) Nyla Boland, TEXTILE CUTTING MACHINE OPERATOR: [address], [place] [address], Ph. Attender: Nyla Boland [facility] 07/03/2020 12:00:00 AM EDT ATHE NA ([facility]) Nyla Boland, TEXTILE CUTTING MACHINE OPERATOR: [address], [place] [address], Ph. Attender: Nyla Boland [facility] - [facility] 07/03/2020 12:00:00 AM EDT ATHE NA ([facility]) Nyla Boland, TEXTILE CUTTING MACHINE OPERATOR: [address], [place] [address], Ph. Attender: Nyla Boland [facility] 07/03/2020 12:00:00 AM EDT ATHE NA ([facility]) Nyla Boland, TEXTILE CUTTING MACHINE OPERATOR: [address], [address], [place] [address], Ph. Attender: Nyla Boland [facility] 07/03/2020 12:00:00 AM EDT ATHE NA ([facility]) Nyla Boland, TEXTILE CUTTING MACHINE OPERATOR: [address], [address], [place] [address], Ph. Attender: Nyla Boland [facility] 07/03/2020 12:00:00 AM EDT ATHE NA ([facility]) Nyla Boland, TEXTILE CUTTING MACHINE OPERATOR: [address], [place] [address], Ph. Attender: Nyla Boland [facility] 07/03/2020 12:00:00 AM EDT ATHE NA ([facility]) Nyla Boland, TEXTILE CUTTING MACHINE OPERATOR: [address], [place] [address], Ph. Attender: Nyla Boland [facility] 07/03/2020 12:00:00 AM EDT ATHE NA ([facility]) Nyla Boland, TEXTILE CUTTING MACHINE OPERATOR: [address], [address], [place] [address], Ph. Attender: Nyla Perlajose [facility] 07/03/2020 12:00:00 AM EDT ATHE NA ([facility]) Nyla Boland, TEXTILE CUTTING MACHINE OPERATOR: [address], [address], [place] [address], Ph. Attender: Nyla Boland [facility] - [facility] 07/03/2020 12:00:00 AM EDT ATHE NA ([facility]) Nyla Boland, TEXTILE CUTTING MACHINE OPERATOR: [address], [place] [address], Ph. Attender: Nyla Boland [facility] - [facility] 07/03/2020 12:00:00 AM EDT ATHE NA ([facility]) Nyla Boland, TEXTILE CUTTING MACHINE OPERATOR: [address], [place] [address], Ph. Attender: Nyla Boland [facility] - [facility] 07/03/2020 12:00:00 AM EDT ATHE NA ([facility]) Nyla Boland, TEXTILE CUTTING MACHINE OPERATOR: [address], [place] [address], Ph. Attender: Nyla Boland [facility] - [facility] 07/03/2020 12:00:00 AM EDT ATHE NA ([facility]) Nyla Boland, TEXTILE CUTTING MACHINE OPERATOR: [address], [place] [address], Ph. Attender: Nyla Boland [facility] - [facility] 07/03/2020 12:00:00 AM EDT ATHE NA ([facility]) Nyla Boland, TEXTILE CUTTING MACHINE OPERATOR: [address], [place] [address], Ph. Attender: Nyla Boland [facility] - [facility] 07/03/2020 12:00:00 AM EDT ATHE NA ([facility]) Nyla Woodson Jackiecolleen, TEXTILE CUTTING MACHINE OPERATOR: [address], [address], [place] [address], Ph. Attender: Nyla CASTRO [place] - [facility] 07/03/2020 12:00:00 AM EDT ATHE NA ([facility]) Stephon Clulen MD: [address], [address], [place] [address], Ph. Attender: Stephon Cullen [place] - [facility] 06/20/2020 12:00:00 AM EDT ROLANDO ([facility]) Stephon Cullen MD: [address]97 [address], [address], [place] [address], Ph. Attender: Stephon Cullen [place] - [facility] 06/20/2020 12:00:00 AM EDT ROLANDO ([facility]) Stephon Cullen MD: 02472 [address], [address], [place] [address], Ph. Attender: Stephon Cullen [place] - [facility] 06/20/2020 12:00:00 AM EDT ROLANDO ([facility]) Stephon Cullen MD: 76649 [address], [place] [address], Ph. Attender: Stephon Cullen MD [place] - [facility] 06/20/2020 12:00:00 AM EDT ROLANDO ([facility]) Stephon Cullen MD: [address]15 [address], [address], [place] [address], Ph. Attender: Stephon Cullen [place] - [facility] 06/20/2020 12:00:00 AM EDT ROLANDO ([facility]) Stephon Cullen MD: [address]3294 [address], [address], [place] [address], Ph. Attender: Stephon Cullen MD [place] - [facility] 06/20/2020 12:00:00 AM EDT ROLANDO ([facility]) Stephon Cullen MD: [address]6 [address], [address], [place] [address], Ph. Attender: Stephon Cullen MD [place] - [facility] 06/20/2020 12:00:00 AM EDT ROLANDO ([facility]) Stephon Cullen MD: [address]37 [address], [address], [place] [address], Ph. Attender: Stephon Cullen MD [place] - [facility] 06/20/2020 12:00:00 AM EDT ROLANDO ([facility]) Stephon Cullen MD: [address]82 [address], [address], [place] [address], Ph. Attender: Stephon VILLARREAL - [facility] 06/20/2020 12:00:00 AM EDT ROLANDO ([facility]) Stephon Cullen MD: 59995 [address], [address], [place] [address], Ph. Attender: Stephon VILLARREAL - [facility] 06/20/2020 12:00:00 AM EDT ROLANDO ([facility]) Stehpon Cullen MD: 28343 [address], [address], [place] [address], Ph. Attender: Stephon VILLARREAL - [facility] 06/20/2020 12:00:00 AM EDT ROLANDO ([facility]) Stephon Cullen MD: 05684 [address], [address], [place] [address], Ph. Attender: Stephon Cullen MD [place] - [facility] 06/20/2020 12:00:00 AM EDT ROLANDO ([facility]) Stephon Cullen MD: [address]12 [address], [address], [place] [address], Ph. Attender: Stephon Cullen [place] - [facility] 06/20/2020 12:00:00 AM EDT ROLANDO ([facility]) Stephon Cullen MD: 87264 [address], [address], [place] [address], Ph. Attender: Stephon Cullen MD [place] - [facility] 06/20/2020 12:00:00 AM EDT ROLANDO ([facility]) Stephon Cullen MD: [address]7415 [address], [address], [place] [address], Ph. Attender: Stephon Cullen [place] - [facility] 06/20/2020 12:00:00 AM EDT ROLANDO ([facility]) Stephon Cullen MD: 44270 [address], [address], [place] [address], Ph. Attender: Stephon VILLARREAL - [facility] 06/20/2020 12:00:00 AM EDT ROLANDO ([facility]) Stephon Cullen MD: [address]0985 [address], [address], [place] [address], Ph. Attender: Stephon VILLARREAL - [facility] 06/20/2020 12:00:00 AM EDT ROLANDO ([facility]) Stephon Cullen MD: [address]11 [address], [address], [place] [address], Ph. [phone] Attender: Stephon Cullen [place] - [facility] 06/16/2020 12:00:00 AM EDT ROLANDO ([facility]) Stephon Cullen MD: 64104 [address], [address], [place] [address], Ph. [phone] Attender: Stephon VILLARREAL - [facility] 06/16/2020 12:00:00 AM EDT ROLANDO ([facility]) Stephon Cullen MD: 57865 [address], [address], [place] [address], Ph. [phone] Attender: Stephon Cullen MD [place] - [facility] 06/16/2020 12:00:00 AM EDT ROLANDO ([facility]) Stephon Cullen MD: 59553 [address], [address], [place] [address], Ph. [phone] Attender: Stephon Cullen MD [place] - [facility] 06/16/2020 12:00:00 AM EDT ROLANDO ([facility]) Stephon Cullen MD: 57884 [address], [address], [place] [address], Ph. [phone] Attender: Stephon VILLARREAL - [facility] 06/16/2020 12:00:00 AM EDT ROLANDO ([facility]) Stephon Cullen MD: 57797 [address], [address], [place] [address], Ph. [phone] Attender: Stephon VILLARREAL - [facility] 06/16/2020 12:00:00 AM EDT ROLANDO ([facility]) Stephon Cullen MD: 01847 [address], [address], [place] [address], Ph. [phone] Attender: Stephon Cullen MD [place] - [facility] 06/16/2020 12:00:00 AM EDT ROLANDO ([facility]) Stephon Cullen MD: 81407 [address], [address], [place] [address], Ph. [phone] Attender: Stephon Cullen MD [place] - [facility] 06/16/2020 12:00:00 AM EDT ROLANDO ([facility]) Stephon Cullen MD: 56850 [address], [address], [place] [address], Ph. [phone] Attender: Stephon VILLARREAL - [facility] 06/16/2020 12:00:00 AM EDT ROLANDO ([facility]) Stephon Cullen MD: 29202 [address], [address], [place] [address], Ph. [phone] Attender: Stephon VILLARREAL - [facility] 06/16/2020 12:00:00 AM EDT ROLANDO ([facility]) Stephon Cullen MD: 42885 [address], [address], [place] [address], Ph. [phone] Attender: Stephon Cullen MD [place] - [facility] 06/16/2020 12:00:00 AM EDT ROLANDO ([facility]) Stephon Cullen MD: 95206 [address], [address], [place] [address], Ph. [phone] Attender: Stephon VILLARREAL - [facility] 06/16/2020 12:00:00 AM EDT ROLANDO ([facility]) Stephon Cullen MD: 07115 [address], [address], [place] [address], Ph. [phone] Attender: Stephon VILLARREAL - [facility] 06/16/2020 12:00:00 AM EDT ROLANDO ([facility]) Stephon Cullen MD: 82081 [address], [address], [place] [address], Ph. [phone] Attender: Stephon Cullen MD [place] - [facility] - [facility] Office 06/16/2020 12:00:00 AM EDT ROLANDO ([facility]) Stephon Cullen MD: 26132 [address], [address], [place] [address], Ph. [phone] Attender: Stephon VILLARREAL - [facility] - [facility] 06/16/2020 12:00:00 AM EDT ROLANDO ([facility]) Stephon Cullen MD: 77394 [address], [address], [place] [address], Ph. [phone] Attender: Stephon VILLARREAL - [facility] - [facility] 06/16/2020 12:00:00 AM EDT ROLANDO ([facility]) Stephon Cullen MD: 38414 [address], [address], [place] [address], Ph. [phone] Attender: Stephon VILLARREAL - [facility] - [facility] 06/16/2020 12:00:00 AM EDT ROLANDO ([facility]) Stephon Cullen MD: 06230 [address], [address], [place] [address], Ph. [phone] Attender: Stephon VILLARREAL - [facility] - [facility] 06/16/2020 12:00:00 AM EDT ROLANDO ([facility]) Outpatient Attender: Deborah jaquez 06/09/2020 04:35:00 PM EDT MEDENT ([facility] Stephon Cullen MD: 71616 [address], [address], [place] [address], Ph. Attender: Stephon VILLARREAL - [facility] 06/06/2020 12:00:00 AM EDT ROLANDO ([facility]) Stephon Cullen MD: 73144 [address], [address], [place] [address], Ph. Attender: Stephon VILLARRELA - [facility] 06/06/2020 12:00:00 AM EDT ROLANDO ([facility]) Stephon Cullen MD: 49436 [address], [address], [place] [address], Ph. Attender: Stephon VILLARREAL - [facility] 06/06/2020 12:00:00 AM EDT ROLANDO ([facility]) Stephon Cullen MD: 20084 [address], [address], [place] [address], Ph. Attender: Stephon VILLARREAL - [facility] 06/06/2020 12:00:00 AM EDT ROLANDO ([facility]) Stephon Cullen MD: 32783 [address], [address], [place] [address], Ph. Attender: Stephon VILLARREAL - [facility] 06/06/2020 12:00:00 AM EDT ROLANDO ([facility]) Stephon Cullen MD: 43892 [address], [address], [place] [address], Ph. Attender: Stephon VILLARREAL - [facility] 06/06/2020 12:00:00 AM EDT ROLANDO ([facility]) Stephon Cullen MD: 49622 [address], [address], [place] [address], Ph. Attender: Stephon VILLARREAL - [facility] 06/06/2020 12:00:00 AM EDT ROLANDO ([facility]) Stephon Cullen MD: 78791 [address], [address], [place] [address], Ph. Attender: Stephon VILLARREAL - [facility] 06/06/2020 12:00:00 AM EDT ROLANDO ([facility]) Stephon Cullen MD: 72057 [address], [address], [place] [address], Ph. Attender: Stephon VILLARREAL - [facility] 06/06/2020 12:00:00 AM EDT ROLANDO ([facility]) Stephon Cullen MD: 03983 [address], [address], [place] [address], Ph. Attender: Stephon VILLARREAL - [facility] 06/06/2020 12:00:00 AM EDT ROLANDO ([facility]) Stephon Cullen MD: 75076 [address], [address], [place] [address], Ph. Attender: Stephon VILLARREAL - [facility] 06/06/2020 12:00:00 AM EDT ROLANDO ([facility]) Stephon Cullen MD: 92550 [address], [address], [place] [address], Ph. Attender: Stephon VILLARREAL - [facility] 06/06/2020 12:00:00 AM EDT ROLANDO ([facility]) Stephon Cullen MD: 27512 [address], [address], [place] [address], Ph. Attender: Stephon VILLARREAL - [facility] 06/06/2020 12:00:00 AM EDT ROLANDO ([facility]) Stephon Cullen MD: 04736 [address], [address], [place] [address], Ph. Attender: Stephon VILLARREAL - [facility] 06/06/2020 12:00:00 AM EDT ROLANDO ([facility]) Stephon Cullen MD: 36053 [address], [address], [place] [address], Ph. Attender: Stephon VILLARREAL - [facility] 06/06/2020 12:00:00 AM EDT ROLANDO ([facility]) Stephon Cullen MD: 39074 [address], [address], [place] [address], Ph. Attender: Stephon VILLARREAL - [facility] 06/06/2020 12:00:00 AM EDT ROLANDO ([facility]) Stephon Cullen MD: 55581 [address], [address], [place] [address], Ph. Attender: Stephon VILLARREAL - [facility] 06/06/2020 12:00:00 AM EDT ROLANDO ([facility]) Stephon Cullen MD: 72261 [address], [address], [place] [address], Ph. Attender: Stephon VILLARREAL - [facility] 06/06/2020 12:00:00 AM EDT ROLANDO ([facility]) Stephon Cullen MD: 04326 [address], [address], [place] [address], Ph. Attender: Stephon VILLARREAL - [facility] 06/06/2020 12:00:00 AM EDT ROLANDO ([facility]) Stephon Cullen MD: 78108 [address], [address], [place] [address], Ph. [phone] Attender: Stephon Cullen MD [place] - [facility] 06/02/2020 12:00:00 AM EDT ROLANDO ([facility]) Stephon Cullen MD: 59144 [address], [address], [place] [address], Ph. [phone] Attender: Stephon VILLARREAL - [facility] 06/02/2020 12:00:00 AM EDT ROLANDO ([facility]) Stephon Cullen MD: 88897 [address], [address], [place] [address], Ph. [phone] Attender: Stephon VILLARREAL - [facility] 06/02/2020 12:00:00 AM EDT ROLANDO ([facility]) Stephon Cullen MD: 30389 [address], [address], [place] [address], Ph. [phone] Attender: Stephon Cullen MD [place] - [facility] 06/02/2020 12:00:00 AM EDT ROLANDO ([facility]) Stephon Cullen MD: 69714 [address], [address], [place] [address], Ph. [phone] Attender: Stephon Cullen MD [place] - [facility] 06/02/2020 12:00:00 AM EDT ROLANDO ([facility]) Stephon Cullen MD: 84204 [address], [address], [place] [address], Ph. [phone] Attender: Stephon VILLARREAL - [facility] 06/02/2020 12:00:00 AM EDT ROLANDO ([facility]) Stephon Cullen MD: 75577 [address], [address], [place] [address], Ph. [phone] Attender: Stephon Cullen MD [place] - [facility] 06/02/2020 12:00:00 AM EDT ROLANDO ([facility]) Stephon Cullen MD: 80094 [address], [address], [place] [address], Ph. [phone] Attender: Stephon Cullen MD [place] - [facility] 06/02/2020 12:00:00 AM EDT ROLANDO ([facility]) Stephon Cullen MD: 13565 [address], [address], [place] [address], Ph. [phone] Attender: Stephon Cullen MD [place] - [facility] 06/02/2020 12:00:00 AM EDT ROLANDO ([facility]) Stephon Cullen MD: 44820 [address], [address], [place] [address], Ph. [phone] Attender: Stephon Cullen MD [place] - [facility] 06/02/2020 12:00:00 AM EDT ROLANDO ([facility]) Stephon Cullen MD: 65541 [address], [address], [place] [address], Ph. [phone] Attender: Stephon Cullen MD [place] - [facility] 06/02/2020 12:00:00 AM EDT ROLANDO ([facility]) Stephon Cullen MD: 07372 [address], [address], [place] [address], Ph. [phone] Attender: Stephon Cullen MD [place] - [facility] 06/02/2020 12:00:00 AM EDT ROLANDO ([facility]) Stephon Cullen MD: 92459 [address], [address], [place] [address], Ph. [phone] Attender: Stephon VILLARREAL - [facility] 06/02/2020 12:00:00 AM EDT ROLANDO ([facility]) Stephon Cullen MD: 90459 [address], [address], [place] [address], Ph. [phone] Attender: Stephon VILLARREAL - [facility] 06/02/2020 12:00:00 AM EDT ROLANDO ([facility]) Stephon Cullen MD: 73165 [address], [address], [place] [address], Ph. [phone] Attender: Stephon VILLARREAL - [facility] 06/02/2020 12:00:00 AM EDT ROLANDO ([facility]) Stephon Cullen MD: 79859 [address], [address], [place] [address], Ph. [phone] Attender: Stephon VILLARREAL - [facility] 06/02/2020 12:00:00 AM EDT ROLANDO ([facility]) Stephon Cullen MD: 73100 [address], [address], [place] [address], Ph. [phone] Attender: Stephon VILLARREAL - [facility] 06/02/2020 12:00:00 AM EDT ROLANDO ([facility]) Stephon Cullen MD: 17115 [address], [address], [place] [address], Ph. [phone] Attender: Stephon VILLARREAL - [facility] 06/02/2020 12:00:00 AM EDT ROLANDO ([facility]) Stephon Cullen MD: 17303 [address], [address], [place] [address], Ph. [phone] Attender: Stephon VILLARREAL - [facility] [place] [facility] 06/02/2020 12:00:00 AM EDT ROLANDO ([facility]) Stephon Cullen MD: [address] [address], [place] [address], Ph. [phone] Attender: Stephon Cullen MD [place] - [facility] - [facility] Office 06/02/2020 12:00:00 AM EDT ROLANDO ([facility]) Immunizations Vaccine Date Status Description Data Source(s) COVID-19 VACCINE Jae 02/23/2021 12:00:00 AM EDT completed [facility] Vaccine Series Complete: YESThis Data wa s Submitted to [facility] Via [facility] ([employer]). Medications Medication Brand Name Start Date Product [...] INJECT 1.5ML UNDER THE SKIN MONTHLY SOLD: 07/22/2021 [facility] 225 mg/1.5 mL 04/05/2021 12:00:00 AM EDT syringe 1 INJECT 1.5ML UNDER THE SKIN MONTHLY INJECT 1.5ML UNDER THE SKIN MONTHLY SOLD: 04/06/2021 [facility] 225 mg/1.5 mL 04/05/2021 12:00:00 AM EDT syringe 1 INJECT 1.5ML UNDER THE SKIN MONTHLY INJECT 1.5ML UNDER THE SKIN MONTHLY SOLD: 05/05/2021 [facility] Trulicity Trulicity 02/20/2021 12:00:00 AM EDT act shania MEDENT ([facility] ) Ondansetron 4 MG Disintegrating [...] Ondansetron 11/07/2020 12:00:00 AM EST active MEDENT ([facility]) 225 mg/1.5 mL 11/05/2020 12:00:00 AM [...] 12.7mm 09/10/2020 12:00:00 AM EST active MEDENT ([facility]) Tresiba Flextouch Tresiba Flextouch 08/21/2020 12:00:00 AM EST active MEDENT ([facility]) Tresiba Flextouch Tresiba Flextouch 08/20/2020 12:00:00 AM EST completed [facility] ([facility]) 40 mg 08/19/2020 12:00:00 AM EST tablet 30 TAKE ONE TABLET BY MOUTH EVERY DAY TAKE ONE TABLET BY MOUTH EVERY DAY SOLD: 08/23/2020 [facility] Ondansetron 4 MG Oral Tablet Ondansetron HCL 06/09/2020 12:00:00 AM E DT ORAL completed [facility] ([facility]) Dicyclomine Hydrochloride 10 MG Oral Capsule Dicyclomine HCL 06/09/2020 12:00:00 AM EDT ORAL completed MED[facility] ([facility], [facility]) 4 mg 06/09/2020 12:00:00 AM EDT [...] IN TWO HOURS IF NECESSARY SOLD: 09/24/2020 [facility] 50 mg 04/18/2020 12:00:00 AM EDT [...] 30 MG Oral Tablet R[facility]AND[facility] ([facility]) Acetaminophen 300 MG / Codeine Phosphate 30 MG Oral Tablet acetaminophen 300 mg- codeine 30 mg tablet as needed acetaminophen 300 mg-codeine 30 mg table t as needed 04/03/2019 12:00:00 AM EDT completed acetaminophen 300 MG / codeine phosphate 30 MG Oral Tablet [facility] ([facility] [place] [facility]) Acetaminophen 300 MG / Codeine Phosphate 30 MG Oral Tablet acetaminophen 300 mg- codeine 30 mg tablet as needed acetaminophen 300 mg-codeine 30 mg table t as needed 04/03/2019 12:00:00 AM EDT completed acetaminophen 300 MG / codeine phosphate 30 MG Oral Tablet [facility] ([facility] [place] [facility]) Acetaminophen 300 MG / Codeine Phosphate 30 MG Oral Tablet acetaminophen 300 mg- codeine 30 mg tablet as needed acetaminophen 300 mg-codeine 30 mg table t as needed 04/03/2019 12:00:00 AM EDT completed acetaminophen 300 MG / codeine phosphate 30 MG Oral Tablet [facility] ([facility] [place]) Acetaminophen 300 MG / Codeine Phosphate 30 MG Oral Tablet acetaminophen 300 mg- codeine 30 mg tablet as needed acetaminophen 300 mg-codeine 30 mg table t as needed 04/03/2019 12:00:00 AM EDT completed acetaminophen 300 MG / codeine phosphate 30 MG Oral Tablet [facility] ([facility] [place]) Acetaminophen 300 MG / Codeine Phosphate 30 MG Oral Tablet acetaminophen 300 mg- codeine 30 mg tablet as needed acetaminophen 300 mg-codeine 30 mg table t as needed 04/03/2019 12:00:00 AM EDT completed acetaminophen 300 MG / codeine phosphate 30 MG Oral Tablet [facility] ([facility] [place]) Acetaminophen 300 MG / Codeine Phosphate 30 MG Oral Tablet acetaminophen 300 mg- codeine 30 mg tablet as needed acetaminophen 300 mg-codeine 30 mg table t as needed 04/03/2019 12:00:00 AM EDT completed acetaminophen 300 MG / codeine phosphate 30 MG Oral Tablet [facility] ([facility] [place]) Acetaminophen 300 MG / Codeine Phosphate 30 MG Oral Tablet acetaminophen 300 mg- codeine 30 mg tablet as needed acetaminophen 300 mg-codeine 30 mg table t as needed 04/03/2019 12:00:00 AM EDT completed acetaminophen 300 MG / codeine phosphate 30 MG Oral Tablet [facility] ([facility] [place]) Acetaminophen 300 MG / Codeine Phosphate 30 MG Oral Tablet acetaminophen 300 mg- codeine 30 mg tablet as needed acetaminophen 300 mg-codeine 30 mg table t as needed 04/03/2019 12:00:00 AM EDT completed acetaminophen 300 MG / codeine phosphate 30 MG Oral Tablet [facility] ([facility] [place]) Ondansetron 4 MG Disintegrating Oral Tab let ondansetron [address] ONE TABLET BY MOUTH THREE TIMES A DAY FOR 7 DAYS ondansetron [address] ONE TABLET BY MOUTH THREE TIMES A DAY FOR 7 DAYS completed ondansetron 4 MG Disintegrating Oral Tablet [facility] ([facility] [place]) Ondansetron 4 MG Oral Tablet ondansetron HCl 4 mg tabl et ondansetron HCl 4 mg tablet completed ondansetron 4 M G Oral Tablet [facility] ([facility] [place]) Acetaminophen 325 MG / Hydrocodone Juanita trate 7.5 MG Oral Tablet hydrocodone 7.5 mg-acetaminophen 325 mg tablet hydrocodone 7.5 mg-acetaminophen 325 mg tablet completed acetaminophen 325 MG / hydrocodone bitartrate 7.5 MG Oral Tablet [facility] ([facility] [place]) Acetaminophen 325 MG / Hydrocodone Juanita trate 5 MG Oral Tablet hydrocodone 5 mg- acetaminophen 325 mg tablet as needed hydrocodone 5 mg-acetaminophen 325 mg tablet as needed completed acetaminophen 325 MG / hydrocodone bitartrate 5 MG Oral Tablet [facility] ([facility] [place]) Fluzone Quad [id number] (PF) 60 mcg (15 m cg x 4)/0.5 mL IM syringe INJECT INTRAMUSCULARLY IN THE LEFT ARM [id number] compl eted 0.5 ML influenza A virus A/[place] (H1N1) antigen 0.03 MG/ML / influenza A virus A/[place] (H3N2) antigen 0.03 MG/ML / influenza B virus B/ antigen 0.03 MG/ML / influenza B virus B/[facility] antigen 0.03 MG/ML Prefilled Syringe [Fluzone Quadrivalent ] [facility] ([facility] [place]) Simvastatin 20 MG Oral Tablet simvastatin 20 mg tablet one by mouth once daily simvastatin 20 mg tablet one by mouth once daily completed simvastatin 20 MG Oral Tablet [facility] ([facility] [place]) Divalproex Sodium 500 MG Delayed Release Oral Tablet divalproex 500 mg tablet,delayed release divalproex 500 mg tablet,delayed release completed divalproex sodium 500 MG Delayed Release Oral Tablet [facility] ([facility] [place]) Divalproex Sodium 250 MG Delayed Release Oral Tablet divalproex 250 mg tablet,delayed release divalproex 250 mg tablet,delayed release completed divalproex sodium 250 MG Delayed Release Oral Tablet [facility] ([facility] [place]) Ondansetron 4 MG Disintegrating Oral Tab let ondansetron 4 mg disintegrating tablet ondansetron 4 mg disintegrating tablet completed ondansetron 4 MG Disintegrating Oral Tablet [facility] ([facility] [place]) Acetaminophen 325 MG / Hydrocodone Juanita trate 7.5 MG Oral Tablet hydrocodone 7.5 mg-acetaminophen 325 mg tablet hydrocodone 7.5 mg-acetaminophen 325 mg tablet completed acetaminophen 325 MG / hydrocodone bitartrate 7.5 MG Oral Tablet [facility] ([facility] [place]) doxycycline hyclate 100 MG Oral Tablet doxycycline hyc late 100 mg tablet doxycycline hyclate 100 mg tablet comp leted doxycycline hyclate 100 MG Oral Tablet [facility] ([facility] [place]) Sumatriptan 25 MG Oral Tablet sumatriptan 25 mg tablet sumat riptan 25 mg tablet completed sumatriptan 25 MG Oral Tablet [facility] ([facility] [place]) Amoxicillin 875 MG / Clavulanate 125 MG Oral Tablet amoxicillin 875 mg-potassium clavulanate 125 mg tablet amoxicillin 875 mg-potassium clavulanate 125 mg tablet completed amoxicillin 875 MG / clavulanate 125 MG Oral Tablet [facility] ([facility] [place]) Ondansetron 8 MG Disintegrating Oral Tab let ondansetron 8 mg disintegrating tablet ondansetron 8 mg disintegrating tablet completed ondansetron 8 MG Disintegrating Oral Tablet [facility] ([facility] [place]) carvedilol 3.125 MG Oral Tablet carvedilol 3.125 mg ta blet carvedilol 3.125 mg tablet completed carvedilol 3.12 5 MG Oral Tablet [facility] ([facility] [place]) Amoxicillin 875 MG / Clavulanate 125 MG Oral Tablet amoxicillin 875 mg-potassium clavulanate 125 mg tablet amoxicillin 875 mg-potassium clavulanate 125 mg tablet completed amoxicillin 875 MG / clavulanate 125 MG Oral Tablet [facility] ([facility] [place]) duloxetine 30 MG Delayed Release Oral Ca psule duloxetine 30 mg capsule,delayed release TAKE ONE CAPSULE BY MOUTH EVERY DAY duloxetine 30 mg capsule,delayed release TAKE ONE CAPSULE BY MOUTH EVERY DAY completed duloxetine 30 MG Delayed Release Oral Capsule [facility] ([facility] [place]) Acetaminophen 325 MG / Hydrocodone Juanita trate 7.5 MG Oral Tablet hydrocodone 7.5 mg-acetaminophen 325 mg tablet hydrocodone 7.5 mg-acetaminophen 325 mg tablet completed acetaminophen 325 MG / hydrocodone bitartrate 7.5 MG Oral Tablet [facility] ([facility] [place]) 0.5 ML pneumococcal capsular polysacchar triston type [...] Prefilled Syringe [Pneumovax 23] [facility] ([facility] [place]) Naproxen 250 MG Oral Tablet naproxen 250 mg tablet as needed naproxen 250 mg tablet as needed completed napro xen 250 MG Oral Tablet [facility] ([facility]) Naproxen 250 MG Oral Tablet naproxen 250 mg tablet as needed naproxen 250 mg tablet as needed completed napro xen 250 MG Oral Tablet [facility] ([facility]) duloxetine 30 MG Delayed Release Oral Ca psule duloxetine 30 mg capsule,delayed release TAKE ONE CAPSULE BY MOUTH EVERY DAY duloxetine 30 mg capsule,delayed release TAKE ONE CAPSULE BY MOUTH EVERY DAY completed duloxetine 30 MG Delayed Release Oral Capsule [facility] ([facility] [place]) Ondansetron 8 MG Disintegrating Oral Tab let ondansetron 8 mg disintegrating tablet ondansetron 8 mg disintegrating tablet completed ondansetron 8 MG Disintegrating Oral Tablet [facility] ([facility] [place]) Acetaminophen 325 MG / Hydrocodone Juanita trate 7.5 MG Oral Tablet hydrocodone 7.5 mg-acetaminophen 325 mg tablet hydrocodone 7.5 mg-acetaminophen 325 mg tablet completed acetaminophen 325 MG / hydrocodone bitartrate 7.5 MG Oral Tablet [facility] ([facility] [place]) doxycycline hyclate 100 MG Oral Tablet doxycycline hyc late 100 mg tablet doxycycline hyclate 100 mg tablet comp leted doxycycline hyclate 100 MG Oral Tablet [facility] ([facility] [place]) 0.5 ML pneumococcal capsular polysacchar triston type [...] Prefilled Syringe [Pneumovax 23] [facility] ([facility] [place]) doxycycline hyclate 100 MG Oral Tablet doxycycline hyc late 100 mg tablet doxycycline hyclate 100 mg tablet comp leted doxycycline hyclate 100 MG Oral Tablet [facility] ([facility] [place]) zonisamide 50 MG Oral Capsule zonisamide 50 mg capsule as needed zonisamide 50 mg capsule as needed completed z onisamide 50 MG Oral Capsule [facility] ([facility] [place]) Fluzone Quad [id number] (PF) 60 mcg (15 m cg x 4)/0.5 mL IM syringe INJECT INTRAMUSCULARLY IN THE LEFT ARM [id number] compl eted 0.5 ML influenza A virus A/ (H1N1) antigen 0.03 MG/ML / influenza A virus A/ (H3N2) antigen 0.03 MG/ML / influenza B virus B/ antigen 0.03 MG/ML / influenza B virus B/[facility] antigen 0.03 MG/ML Prefilled Syringe [Fluzone Quadrivalent ] [facility] ([facility] [place]) Simvastatin 20 MG Oral Tablet simvastatin 20 mg tablet one by mouth once daily simvastatin 20 mg tablet one by mouth once daily completed simvastatin 20 MG Oral Tablet [facility] ([facility] [place]) Divalproex Sodium 500 MG Delayed Release Oral Tablet divalproex 500 mg tablet,delayed release divalproex 500 mg tablet,delayed release completed divalproex sodium 500 MG Delayed Release Oral Tablet [facility] ([facility] [place]) Naproxen 250 MG Oral Tablet naproxen 250 mg tablet as needed naproxen 250 mg tablet as needed completed napro xen 250 MG Oral Tablet [facility] ([facility] [place]) Ondansetron 8 MG Oral Tablet ondansetron HCl 8 mg tabl et ondansetron HCl 8 mg tablet completed ondansetron 8 M G Oral Tablet [facility] ([facility] [place]) Acetaminophen 325 MG / Hydrocodone Juanita trate 5 MG Oral Tablet hydrocodone 5 mg- acetaminophen 325 mg tablet as needed hydrocodone 5 mg-acetaminophen 325 mg tablet as needed completed acetaminophen 325 MG / hydrocodone bitartrate 5 MG Oral Tablet [facility] ([facility] [place]) Ondansetron 8 MG Disintegrating Oral Tab let ondansetron 8 mg disintegrating tablet ondansetron 8 mg disintegrating tablet completed ondansetron 8 MG Disintegrating Oral Tablet [facility] ([facility] [place]) Simvastatin 20 MG Oral Tablet simvastatin 20 mg tablet one by mouth once daily simvastatin 20 mg tablet one by mouth once daily completed simvastatin 20 MG Oral Tablet [facility] ([facility] [place]) Sumatriptan 25 MG Oral Tablet sumatriptan 25 mg tablet sumat riptan 25 mg tablet completed sumatriptan 25 MG Oral Tablet [facility] ([facility] [place]) Acetaminophen 325 MG / Hydrocodone Juanita trate 7.5 MG Oral Tablet hydrocodone 7.5 mg-acetaminophen 325 mg tablet hydrocodone 7.5 mg-acetaminophen 325 mg tablet completed acetaminophen 325 MG / hydrocodone bitartrate 7.5 MG Oral Tablet [facility] ([facility] [place]) Ondansetron 4 MG Disintegrating Oral Tab let ondansetron 4 mg disintegrating tablet ondansetron 4 mg disintegrating tablet completed ondansetron 4 MG Disintegrating Oral Tablet [facility] ([facility] [place]) Simvastatin 20 MG Oral Tablet simvastatin 20 mg tablet one by mouth once daily simvastatin 20 mg tablet one by mouth once daily completed simvastatin 20 MG Oral Tablet [facility] ([facility] [place]) 0.5 ML pneumococcal capsular polysacchar triston type [...] Prefilled Syringe [Pneumovax 23] [facility] ([facility] [place]) Ondansetron 4 MG Disintegrating Oral Tab let ondansetron 4 mg disintegrating tablet ondansetron 4 mg disintegrating tablet completed ondansetron 4 MG Disintegrating Oral Tablet [facility] ([facility] [place]) Acetaminophen 325 MG / Hydrocodone Juanita trate 5 MG Oral Tablet hydrocodone 5 mg- acetaminophen 325 mg tablet as needed hydrocodone 5 mg-acetaminophen 325 mg tablet as needed completed acetaminophen 325 MG / hydrocodone bitartrate 5 MG Oral Tablet [facility] ([facility] [place]) Ondansetron 4 MG Oral Tablet ondansetron HCl 4 mg tabl et ondansetron HCl 4 mg tablet completed ondansetron 4 M G Oral Tablet [facility] ([facility] [place]) Fluzone Quad [id number] (PF) 60 mcg (15 m cg x 4)/0.5 mL IM syringe INJECT INTRAMUSCULARLY IN THE LEFT ARM [id number] compl eted 0.5 ML influenza A virus A/[place] (H1N1) antigen 0.03 MG/ML / influenza A virus A/ (H3N2) antigen 0.03 MG/ML / influenza B virus B/ antigen 0.03 MG/ML / influenza B virus B/[facility] antigen 0.03 MG/ML Prefilled Syringe [Fluzone Quadrivalent [id number]] [facility] ([facility] [place]) Flucelvax Quad [id number] 60 mcg (15 mcg x 4)/0.5 mL IM suspension [id number] completed influenza A vi jeremías A/[place] (H3N2) antigen 0.03 MG/ML / influenza A virus A//[id number] (H1N1) antigen 0.03 MG/ML / influenza B virus B/ antigen 0.03 MG/ML / influenza B virus B/[place]/[id number]/2016 antigen 0.03 MG/ML Injectable Suspension R[facility]ANDO ([facility] [place]) carvedilol 3.125 MG Oral Tablet carvedilol 3.125 mg ta blet carvedilol 3.125 mg tablet completed carvedilol 3.12 5 MG Oral Tablet [facility] ([facility] [place]) Naproxen 250 MG Oral Tablet naproxen 250 mg tablet as needed naproxen 250 mg tablet as needed completed napro xen 250 MG Oral Tablet [facility] ([facility] [place]) Acetaminophen 325 MG / Hydrocodone Juanita trate 5 MG Oral Tablet hydrocodone 5 mg- acetaminophen 325 mg tablet as needed hydrocodone 5 mg-acetaminophen 325 mg tablet as needed completed acetaminophen 325 MG / hydrocodone bitartrate 5 MG Oral Tablet [facility] ([facility] [place]) Amoxicillin 875 MG / Clavulanate 125 MG Oral Tablet amoxicillin 875 mg-potassium clavulanate 125 mg tablet amoxicillin 875 mg-potassium clavulanate 125 mg tablet completed amoxicillin 875 MG / clavulanate 125 MG Oral Tablet [facility] ([facility] [place]) topiramate 50 MG Oral Tablet topiramate 50 mg tablet a s needed topiramate 50 mg tablet as needed completed topir amate 50 MG Oral Tablet [facility] ([facility] [place]) Amoxicillin 875 MG / Clavulanate 125 MG Oral Tablet amoxicillin 875 mg-potassium clavulanate 125 mg tablet amoxicillin 875 mg-potassium clavulanate 125 mg tablet completed amoxicillin 875 MG / clavulanate 125 MG Oral Tablet [facility] ([facility] [place]) Allopurinol 100 MG Oral Tablet allopurinol 100 mg tabl et allopurinol 100 mg tablet completed allopurinol 100 MG Oral Tablet [facility] ([facility] [place]) Allopurinol 100 MG Oral Tablet allopurinol 100 mg tabl et allopurinol 100 mg tablet completed allopurinol 100 MG Oral Tablet [facility] ([facility] [place]) Flucelvax Quad 60 mcg (15 mcg x 4)/0.5 mL intramuscular susp INJECT 0.5ML DIRECTED [id number] completed influenza A virus A/ (H3N2) antigen 0.03 MG/ML / influenza A virus A/[place] (H1N1) antigen 0.03 MG/ML / influenza B virus B/ antigen 0.03 MG/ML / influenza B virus B/[facility]/[id number]/2016 antigen 0.03 MG/ML Injectable Suspension [Flucelvax Quadrivalent ] [facility] ([facility] [place]) Divalproex Sodium 500 MG Delayed Release Oral Tablet divalproex 500 mg tablet,delayed release divalproex 500 mg tablet,delayed release completed divalproex sodium 500 MG Delayed Release Oral Tablet [facility] ([facility] [place]) Ondansetron 8 MG Disintegrating Oral Tab let ondansetron 8 mg disintegrating tablet ondansetron 8 mg disintegrating tablet completed ondansetron 8 MG Disintegrating Oral Tablet [facility] ([facility] [place]) Metformin hydrochloride 1000 MG Oral Tablet metformin 1,000 mg tablet metformin 1,000 mg tablet completed metformin hydrochloride 1000 MG Oral Tablet [facility] ([facility] [place]) Metoclopramide 10 MG Oral Tablet metoclopramide 10 mg tablet metoclopramide 10 mg tablet completed metocloprami de 10 MG Oral Tablet [facility] ([facility] [place]) carvedilol 3.125 MG Oral Tablet carvedilol 3.125 mg ta blet carvedilol 3.125 mg tablet completed carvedilol 3.12 5 MG Oral Tablet [facility] ([facility] [place]) Fluzone Quad (PF) 60 mcg (15 m cg x 4)/0.5 mL IM syringe INJECT INTRAMUSCULARLY IN THE LEFT ARM [id number] compl eted 0.5 ML influenza A virus A/[place] (H1N1) antigen 0.03 MG/ML / influenza A virus A/ (H3N2) antigen 0.03 MG/ML / influenza B virus B/ antigen 0.03 MG/ML / influenza B virus B/[facility]30711/2012 antigen 0.03 MG/ML Prefilled Syringe [Fluzone Quadrivalent ] [facility] ([facility] [place]) Flucelvax Quad 60 mcg (15 mcg x 4)/0.5 mL IM suspension [id number] completed influenza A vi jeremías A/[place] (H3N2) antigen 0.03 MG/ML / influenza A virus A/[facility]/WC5869/2015 (H1N1) antigen 0.03 MG/ML / influenza B virus B/ antigen 0.03 MG/ML / influenza B virus B//[id number]/2016 antigen 0.03 MG/ML Injectable Suspension [facility] ([facility] [place]) Flucelvax Quad 60 mcg (15 mcg x 4)/0.5 mL intramuscular susp INJECT 0.5ML DIRECTED [id number] completed influenza A virus A/[place] (H3N2) antigen 0.03 MG/ML / influenza A virus A/[place] (H1N1) antigen 0.03 MG/ML / influenza B virus B/ antigen 0.03 MG/ML / influenza B virus B//[id number]/2016 antigen 0.03 MG/ML Injectable Suspension [Flucelvax Quadrivalent ] [facility] ([facility] [place]) Ondansetron 8 MG Oral Tablet ondansetron HCl 8 mg tabl et ondansetron HCl 8 mg tablet completed ondansetron 8 M G Oral Tablet [facility] ([facility] [place]) topiramate 25 MG Oral Tablet topiramate 25 mg tablet TAKE ONE TABLET BY MOUTH TWICE A DAY DIRECTED topiramate 25 mg tablet TAKE ONE TABLET BY MOUTH TWICE A DAY DIRECTED completed topira mate 25 MG Oral Tablet [facility] ([facility] [place]) Ondansetron 8 MG Oral Tablet ondansetron HCl 8 mg tabl et ondansetron HCl 8 mg tablet completed ondansetron 8 M G Oral Tablet [facility] ([facility] [place]) Ondansetron 4 MG Oral Tablet ondansetron HCl 4 mg tabl et ondansetron HCl 4 mg tablet completed ondansetron 4 M G Oral Tablet [facility] ([facility] [place]) Metoclopramide 10 MG Oral Tablet metoclopramide 10 mg tablet metoclopramide 10 mg tablet completed metocloprami de 10 MG Oral Tablet [facility] ([facility] [place]) Ondansetron 8 MG Oral Tablet ondansetron HCl 8 mg tabl et ondansetron HCl 8 mg tablet completed ondansetron 8 M G Oral Tablet [facility] ([facility] [place]) Allopurinol 100 MG Oral Tablet allopurinol 100 mg tabl et allopurinol 100 mg tablet completed allopurinol 100 MG Oral Tablet [facility] ([facility] [place]) zonisamide 50 MG Oral Capsule zonisamide 50 mg capsule as needed zonisamide 50 mg capsule as needed completed z onisamide 50 MG Oral Capsule [facility] ([facility]) Ondansetron 8 MG Oral Tablet ondansetron HCl 8 mg tabl et ondansetron HCl 8 mg tablet completed ondansetron 8 M G Oral Tablet [facility] ([facility]) Divalproex Sodium 500 MG Delayed Release Oral Tablet divalproex 500 mg tablet,delayed release divalproex 500 mg tablet,delayed release completed divalproex sodium 500 MG Delayed Release Oral Tablet R[facility] ([facility]) Ondansetron 8 MG Oral Tablet ondansetron HCl 8 mg tabl et ondansetron HCl 8 mg tablet completed ondansetron 8 M G Oral Tablet ROLANDO ([facility]) Divalproex Sodium 500 MG Delayed Release Oral Tablet divalproex 500 mg tablet,delayed release divalproex 500 mg tablet,delayed release completed divalproex sodium 500 MG Delayed Release Oral Tablet ROLANDO ([facility]) Metoclopramide 10 MG Oral Tablet metoclopramide 10 mg tablet metoclopramide 10 mg tablet completed metocloprami de 10 MG Oral Tablet ROLANDO ([facility] [place]) Oseltamivir 75 MG Oral Capsule oseltamivir 75 mg capsu le oseltamivir 75 mg capsule completed oseltamivir 75 MG Oral Capsule ROLANDO ([facility] [place]) Oseltamivir 75 MG Oral Capsule oseltamivir 75 mg capsu le oseltamivir 75 mg capsule completed oseltamivir 75 MG Oral Capsule ROLANDO ([facility] [place]) Divalproex Sodium 500 MG Delayed Release Oral Tablet divalproex 500 mg tablet,delayed release divalproex 500 mg tablet,delayed release completed divalproex sodium 500 MG Delayed Release Oral Tablet ROLANDO ([facility] [place]) Flucelvax Quad [id number] 60 mcg (15 mcg x 4)/0.5 mL IM suspension [phone] completed influenza A vi jeremías A/[place] (H3N2) antigen 0.03 MG/ML / influenza A virus A//[id number] (H1N1) antigen 0.03 MG/ML / influenza B virus B/[place] antigen 0.03 MG/ML / influenza B virus B/[facility]/[id number]/2016 antigen 0.03 MG/ML Injectable Suspension ROLANDO ([facility] [place]) topiramate 50 MG Oral Tablet topiramate 50 mg tablet a s needed topiramate 50 mg tablet as needed completed topir amate 50 MG Oral Tablet ROLANDO ([facility] [place]) Divalproex Sodium 250 MG Delayed Release Oral Tablet divalproex 250 mg tablet,delayed release divalproex 250 mg tablet,delayed release completed divalproex sodium 250 MG Delayed Release Oral Tablet ROLANDO ([facility] [place]) carvedilol 3.125 MG Oral Tablet carvedilol 3.125 mg ta blet carvedilol 3.125 mg tablet completed carvedilol 3.12 5 MG Oral Tablet ROLANDO ([facility] [place]) Divalproex Sodium 250 MG Delayed Release Oral Tablet divalproex 250 mg tablet,delayed release divalproex 250 mg tablet,delayed release completed divalproex sodium 250 MG Delayed Release Oral Tablet ROLANDO ([facility] [place]) Sumatriptan 25 MG Oral Tablet sumatriptan 25 mg tablet sumat riptan 25 mg tablet completed sumatriptan 25 MG Oral Tablet ROLANDO ([facility] [place]) carvedilol 3.125 MG Oral Tablet carvedilol 3.125 mg ta blet carvedilol 3.125 mg tablet completed carvedilol 3.12 5 MG Oral Tablet ROLANDO ([facility] [place]) doxycycline hyclate 100 MG Oral Tablet doxycycline hyc late 100 mg tablet doxycycline hyclate 100 mg tablet comp leted doxycycline hyclate 100 MG Oral Tablet ROLANDO ([facility] [place]) Amoxicillin 875 MG / Clavulanate 125 MG Oral Tablet amoxicillin 875 mg-potassium clavulanate 125 mg tablet amoxicillin 875 mg-potassium clavulanate 125 mg tablet completed amoxicillin 875 MG / clavulanate 125 MG Oral Tablet ROLANDO ([facility] [place]) carvedilol 3.125 MG Oral Tablet carvedilol 3.125 mg ta blet carvedilol 3.125 mg tablet completed carvedilol 3.12 5 MG Oral Tablet ROLANDO ([facility] [place]) Acetaminophen 325 MG / Hydrocodone Juanita trate 7.5 MG Oral Tablet hydrocodone 7.5 mg-acetaminophen 325 mg tablet hydrocodone 7.5 mg-acetaminophen 325 mg tablet completed acetaminophen 325 MG / hydrocodone bitartrate 7.5 MG Oral Tablet ROLANDO ([facility] [place]) 24 HR Metformin hydrochloride 500 MG Ext ended Release Oral Tablet metformin ER 500 mg tablet,extended release 24 hr metformin ER 500 mg tablet,extended rele ase 24 hr completed 24 HR m etformin hydrochloride 500 MG Extended Release Oral Tablet ROLANDO ([facility] [place]) doxycycline hyclate 100 MG Oral Tablet doxycycline hyc late 100 mg tablet doxycycline hyclate 100 mg tablet comp leted doxycycline hyclate 100 MG Oral Tablet ROLANDO ([facility] [place]) Acetaminophen 325 MG / Hydrocodone Juanita trate 5 MG Oral Tablet hydrocodone 5 mg- acetaminophen 325 mg tablet as needed hydrocodone 5 mg-acetaminophen 325 mg tablet as needed completed acetaminophen 325 MG / hydrocodone bitartrate 5 MG Oral Tablet ROLANDO ([facility] [place]) Flucelvax Quad [id number] 60 mcg (15 mcg x 4)/0.5 mL IM suspension [phone] completed influenza A vi jeremías A/[place] (H3N2) antigen 0.03 MG/ML / influenza A virus A/[facility]/GX3433/2015 (H1N1) antigen 0.03 MG/ML / influenza B virus B/[place] antigen 0.03 MG/ML / influenza B virus B/[facility]/[id number]/2016 antigen 0.03 MG/ML Injectable Suspension ROLANDO ([facility] [place]) topiramate 25 MG Oral Tablet topiramate 25 mg tablet TAKE ONE TABLET BY MOUTH TWICE A DAY DIRECTED topiramate 25 mg tablet TAKE ONE TABLET BY MOUTH TWICE A DAY DIRECTED completed topira mate 25 MG Oral Tablet ROLANDO ([facility] [place]) topiramate 50 MG Oral Tablet topiramate 50 mg tablet a s needed topiramate 50 mg tablet as needed completed topir amate 50 MG Oral Tablet ROLANDO ([facility] [place]) zonisamide 50 MG Oral Capsule zonisamide 50 mg capsule as needed zonisamide 50 mg capsule as needed completed z onisamide 50 MG Oral Capsule ROLANDO ([facility] [place]) Ondansetron 8 MG Oral Tablet ondansetron HCl 8 mg tabl et ondansetron HCl 8 mg tablet completed ondansetron 8 M G Oral Tablet ROLANDO ([facility] [place]) Simvastatin 20 MG Oral Tablet simvastatin 20 mg tablet one by mouth once daily simvastatin 20 mg tablet one by mouth once daily completed simvastatin 20 MG Oral Tablet ROLANDO ([facility] [place]) Simvastatin 20 MG Oral Tablet simvastatin 20 mg tablet one by mouth once daily simvastatin 20 mg tablet one by mouth once daily completed simvastatin 20 MG Oral Tablet ROLANDO ([facility] [place]) 0.5 ML pneumococcal capsular polysacchar triston type [...] Prefilled Syringe [Pneumovax 23] ROLANDO ([facility] [place]) Divalproex Sodium 250 MG Delayed Release Oral Tablet divalproex 250 mg tablet,delayed release divalproex 250 mg tablet,delayed release completed divalproex sodium 250 MG Delayed Release Oral Tablet ROLANDO ([facility] [place]) Divalproex Sodium 500 MG Delayed Release Oral Tablet divalproex 500 mg tablet,delayed release divalproex 500 mg tablet,delayed release completed divalproex sodium 500 MG Delayed Release Oral Tablet ROLANDO ([facility] [place]) Simvastatin 20 MG Oral Tablet simvastatin 20 mg tablet one by mouth once daily simvastatin 20 mg tablet one by mouth once daily completed simvastatin 20 MG Oral Tablet ROLANDO ([facility] [place]) Naproxen 250 MG Oral Tablet naproxen 250 mg tablet as needed naproxen 250 mg tablet as needed completed napro xen 250 MG Oral Tablet ROLANDO ([facility] [place]) topiramate 50 MG Oral Tablet topiramate 50 mg tablet a s needed topiramate 50 mg tablet as needed completed topir amate 50 MG Oral Tablet ROLANDO ([facility] [place]) Fluzone Quad [id number] (PF) 60 mcg (15 m cg x 4)/0.5 mL IM syringe INJECT INTRAMUSCULARLY IN THE LEFT ARM [id number] compl eted 0.5 ML influenza A virus A/[place] (H1N1) antigen 0.03 MG/ML / influenza A virus A/ (H3N2) antigen 0.03 MG/ML / influenza B virus B/ antigen 0.03 MG/ML / [facility] 0.[facility] MG/ML Prefilled Syringe [Fluzone Quadrivalent [id number]] ROLANDO ([facility] [place]) meloxicam 7.5 MG Oral Tablet meloxicam 7.5 mg tablet meloxicam 7 .5 mg tablet completed meloxicam 7.5 MG Oral Tablet ROLANDO ([facility] [place]) Acetaminophen 325 MG / Hydrocodone Juanita trate 5 MG Oral Tablet hydrocodone 5 mg- acetaminophen 325 mg tablet as needed hydrocodone 5 mg-acetaminophen 325 mg tablet as needed completed acetaminophen 325 MG / hydrocodone bitartrate 5 MG Oral Tablet ROLANDO ([facility] [place]) carvedilol 3.125 MG Oral Tablet carvedilol 3.125 mg ta blet carvedilol 3.125 mg tablet completed carvedilol 3.12 5 MG Oral Tablet ROLANDO ([facility] [place]) Oseltamivir 75 MG Oral Capsule oseltamivir 75 mg capsu le oseltamivir 75 mg capsule completed oseltamivir 75 MG Oral Capsule ROLANDO ([facility] [place]) Naproxen 250 MG Oral Tablet naproxen 250 mg tablet as needed naproxen 250 mg tablet as needed completed napro xen 250 MG Oral Tablet ROLANDO ([facility] [place]) meloxicam 7.5 MG Oral Tablet meloxicam 7.5 mg tablet meloxicam 7 .5 mg tablet completed meloxicam 7.5 MG Oral Tablet ROLANDO ([facility] [place]) doxycycline hyclate 100 MG Oral Tablet doxycycline hyc late 100 mg tablet doxycycline hyclate 100 mg tablet comp leted doxycycline hyclate 100 MG Oral Tablet ROLANDO ([facility] [place]) Oseltamivir 75 MG Oral Capsule oseltamivir 75 mg capsu le oseltamivir 75 mg capsule completed oseltamivir 75 MG Oral Capsule ROLANDO ([facility] [place]) Amoxicillin 875 MG / Clavulanate 125 MG Oral Tablet amoxicillin 875 mg-potassium clavulanate 125 mg tablet amoxicillin 875 mg-potassium clavulanate 125 mg tablet completed amoxicillin 875 MG / clavulanate 125 MG Oral Tablet ROLANDO ([facility] [place]) Flucelvax Quad 60 mcg (15 mcg x 4)/0.5 mL intramuscular susp INJECT 0.5ML DIRECTED [id number] completed influenza A virus A/ (H3N2) antigen 0.03 MG/ML / influenza A virus A/[place] (H1N1) antigen 0.03 MG/ML / influenza B virus B/ antigen 0.03 MG/ML / influenza B virus B/[facility]/[id number]/2016 antigen 0.03 MG/ML Injectable Suspension [Flucelvax Quadrivalent ] ROLANDO ([facility] [place]) Ondansetron 4 MG Oral Tablet ondansetron HCl 4 mg tabl et ondansetron HCl 4 mg tablet completed ondansetron 4 M G Oral Tablet ROLANDO ([facility] [place]) Ondansetron 8 MG Oral Tablet ondansetron HCl 8 mg tabl et ondansetron HCl 8 mg tablet completed ondansetron 8 M G Oral Tablet ROLANDO ([facility] [place]) Allopurinol 100 MG Oral Tablet allopurinol 100 mg tabl et allopurinol 100 mg tablet completed allopurinol 100 MG Oral Tablet ROLANDO ([facility] [place]) Acetaminophen 325 MG / Hydrocodone Juanita trate 5 MG Oral Tablet hydrocodone 5 mg- acetaminophen 325 mg tablet as needed hydrocodone 5 mg-acetaminophen 325 mg tablet as needed completed acetaminophen 325 MG / hydrocodone bitartrate 5 MG Oral Tablet ROLANDO ([facility] [place]) doxycycline hyclate 100 MG Oral Tablet doxycycline hyc late 100 mg tablet doxycycline hyclate 100 mg tablet comp leted doxycycline hyclate 100 MG Oral Tablet ROLANDO ([facility] [place]) meloxicam 7.5 MG Oral Tablet meloxicam 7.5 mg tablet meloxicam 7 .5 mg tablet completed meloxicam 7.5 MG Oral Tablet ROLANDO ([facility] [place]) 0.5 ML pneumococcal capsular polysacchar triston type [...] Prefilled Syringe [Pneumovax 23] ROLANDO ([facility] [place]) Sumatriptan 25 MG Oral Tablet sumatriptan 25 mg tablet sumat riptan 25 mg tablet completed sumatriptan 25 MG Oral Tablet ROLANDO ([facility] [place]) doxycycline hyclate 100 MG Oral Tablet doxycycline hyc late 100 mg tablet doxycycline hyclate 100 mg tablet comp leted doxycycline hyclate 100 MG Oral Tablet ROLANDO ([facility] [place]) Flucelvax Quad [id number] 60 mcg (15 mcg x 4)/0.5 mL IM suspension 59 972 completed influenza A vi jeremías A/[place] (H3N2) antigen 0.03 MG/ML / influenza A virus A//YB1528/2015 (H1N1) antigen 0.03 MG/ML / influenza B virus B/ antigen 0.03 MG/ML / influenza B virus B//[id number]/2016 antigen 0.03 MG/ML Injectable Suspension ROLANDO ([facility] [place]) 24 HR Metformin hydrochloride 500 MG Ext ended Release Oral Tablet metformin ER 500 mg tablet,extended release 24 hr metformin ER 500 mg tablet,extended rele ase 24 hr completed 24 HR m etformin hydrochloride 500 MG Extended Release Oral Tablet ROLANDO ([facility] [place]) Acetaminophen 325 MG / Hydrocodone Juanita trate 7.5 MG Oral Tablet hydrocodone 7.5 mg-acetaminophen 325 mg tablet hydrocodone 7.5 mg-acetaminophen 325 mg tablet completed acetaminophen 325 MG / hydrocodone bitartrate 7.5 MG Oral Tablet ROLANDO ([facility] [place]) meloxicam 7.5 MG Oral Tablet meloxicam 7.5 mg tablet meloxicam 7 .5 mg tablet completed meloxicam 7.5 MG Oral Tablet ROLANDO ([facility] [place]) Acetaminophen 325 MG / Hydrocodone Juanita trate 5 MG Oral Tablet hydrocodone 5 mg- acetaminophen 325 mg tablet as needed hydrocodone 5 mg-acetaminophen 325 mg tablet as needed completed acetaminophen 325 MG / hydrocodone bitartrate 5 MG Oral Tablet ROLANDO ([facility] [place]) Metoclopramide 10 MG Oral Tablet metoclopramide 10 mg tablet metoclopramide 10 mg tablet completed metocloprami de 10 MG Oral Tablet ROLANDO ([facility] [place]) Naproxen 250 MG Oral Tablet naproxen 250 mg tablet as needed naproxen 250 mg tablet as needed completed napro xen 250 MG Oral Tablet ROLANDO ([facility] [place]) Naproxen 250 MG Oral Tablet naproxen 250 mg tablet as needed naproxen 250 mg tablet as needed completed napro xen 250 MG Oral Tablet ROLANDO ([facility] [place]) meloxicam 7.5 MG Oral Tablet meloxicam 7.5 mg tablet meloxicam 7 .5 mg tablet completed meloxicam 7.5 MG Oral Tablet ROLANDO ([facility] [place]) topiramate 25 MG Oral Tablet topiramate 25 mg tablet TAKE ONE TABLET BY MOUTH TWICE A DAY DIRECTED topiramate 25 mg tablet TAKE ONE TABLET BY MOUTH TWICE A DAY DIRECTED completed topira mate 25 MG Oral Tablet ROLANDO ([facility] [place]) doxycycline hyclate 100 MG Oral Tablet doxycycline hyc late 100 mg tablet doxycycline hyclate 100 mg tablet comp leted doxycycline hyclate 100 MG Oral Tablet ROLANDO ([facility] [place]) Metformin hydrochloride 1000 MG Oral Tablet metformin 1,000 mg tablet metformin 1,000 mg tablet completed metformin hydrochloride 1000 MG Oral Tablet ROLANDO ([facility] [place]) Simvastatin 20 MG Oral Tablet simvastatin 20 mg tablet one by mouth once daily simvastatin 20 mg tablet one by mouth once daily completed simvastatin 20 MG Oral Tablet ROLANDO ([facility] [place]) Divalproex Sodium 250 MG Delayed Release Oral Tablet divalproex 250 mg tablet,delayed release divalproex 250 mg tablet,delayed release completed divalproex sodium 250 MG Delayed Release Oral Tablet ROLANDO ([facility] [place]) Ondansetron 4 MG Disintegrating Oral Tab let ondansetron 4 mg disintegrating tablet ondansetron 4 mg disintegrating tablet completed ondansetron 4 MG Disintegrating Oral Tablet ROLANDO ([facility] [place]) Fluzone Quad [id number] (PF) 60 mcg (15 m cg x 4)/0.5 mL IM syringe INJECT INTRAMUSCULARLY IN THE LEFT ARM [id number] compl eted 0.5 ML influenza A virus A/[place] (H1N1) antigen 0.03 MG/ML / influenza A virus A/ (H3N2) antigen 0.03 MG/ML / influenza B virus B/ antigen 0.03 MG/ML / influenza B virus B/[facility] antigen 0.03 MG/ML Prefilled Syringe [Fluzone Quadrivalent ] ROLANDO ([facility] [place]) topiramate 25 MG Oral Tablet topiramate 25 mg tablet TAKE ONE TABLET BY MOUTH TWICE A DAY DIRECTED topiramate 25 mg tablet TAKE ONE TABLET BY MOUTH TWICE A DAY DIRECTED completed topira mate 25 MG Oral Tablet ROLANDO ([facility] [place]) Acetaminophen 325 MG / Hydrocodone Juanita trate 7.5 MG Oral Tablet hydrocodone 7.5 mg-acetaminophen 325 mg tablet hydrocodone 7.5 mg-acetaminophen 325 mg tablet completed acetaminophen 325 MG / hydrocodone bitartrate 7.5 MG Oral Tablet ROLANDO ([facility] [place]) zonisamide 50 MG Oral Capsule zonisamide 50 mg capsule as needed zonisamide 50 mg capsule as needed completed z onisamide 50 MG Oral Capsule ROLANDO ([facility] [place]) Simvastatin 20 MG Oral Tablet simvastatin 20 mg tablet one by mouth once daily simvastatin 20 mg tablet one by mouth once daily completed simvastatin 20 MG Oral Tablet ROLANDO ([facility] [place]) Naproxen 250 MG Oral Tablet naproxen 250 mg tablet as needed naproxen 250 mg tablet as needed completed napro xen 250 MG Oral Tablet ROLANDO ([facility] [place]) Divalproex Sodium 500 MG Delayed Release Oral Tablet divalproex 500 mg tablet,delayed release divalproex 500 mg tablet,delayed release completed divalproex sodium 500 MG Delayed Release Oral Tablet ROLANDO ([facility] [place]) Sumatriptan 25 MG Oral Tablet sumatriptan 25 mg tablet sumat riptan 25 mg tablet completed sumatriptan 25 MG Oral Tablet ROLANDO ([facility] [place]) Flucelvax Quad [id number] 60 mcg (15 mcg x 4)/0.5 mL IM suspension [id number] completed influenza A vi jeremías A/[place] (H3N2) antigen 0.03 MG/ML / [facility] virus [facility] ([facility]1) antigen 0.03 MG/ML / influenza B virus B/[place] antigen 0.03 MG/ML / influenza B virus B/[facility]/[id number]/2016 antigen 0.03 MG/ML Injectable Suspension ROLANDO ([facility] [place]) Divalproex Sodium 250 MG Delayed Release Oral Tablet divalproex 250 mg tablet,delayed release divalproex 250 mg tablet,delayed release completed divalproex sodium 250 MG Delayed Release Oral Tablet ROLANDO ([facility] [place]) Acetaminophen 325 MG / Hydrocodone Jaunita trate 7.5 MG Oral Tablet hydrocodone 7.5 mg-acetaminophen 325 mg tablet hydrocodone 7.5 mg-acetaminophen 325 mg tablet completed acetaminophen 325 MG / hydrocodone bitartrate 7.5 MG Oral Tablet ROLANDO ([facility] [place]) 0.5 ML pneumococcal capsular polysacchar triston type [...] Prefilled Syringe [Pneumovax 23] ROLANDO ([facility] [place]) Divalproex Sodium 500 MG Delayed Release Oral Tablet divalproex 500 mg tablet,delayed release divalproex 500 mg tablet,delayed release completed divalproex sodium 500 MG Delayed Release Oral Tablet ROLANDO ([facility] [place]) 24 HR Metformin hydrochloride 500 MG Ext ended Release Oral Tablet metformin ER 500 mg tablet,extended release 24 hr metformin ER 500 mg tablet,extended rele ase 24 hr completed 24 HR m etformin hydrochloride 500 MG Extended Release Oral Tablet ROLANDO ([facility] [place]) Ondansetron 8 MG Oral Tablet ondansetron HCl 8 mg tabl et ondansetron HCl 8 mg tablet completed ondansetron 8 M G Oral Tablet ROLANDO ([facility] [place]) Amoxicillin 875 MG / Clavulanate 125 MG Oral Tablet amoxicillin 875 mg-potassium clavulanate 125 mg tablet amoxicillin 875 mg-potassium clavulanate 125 mg tablet completed amoxicillin 875 MG / clavulanate 125 MG Oral Tablet ROLANDO ([facility] [place]) Divalproex Sodium 250 MG Delayed Release Oral Tablet divalproex 250 mg tablet,delayed release divalproex 250 mg tablet,delayed release completed divalproex sodium 250 MG Delayed Release Oral Tablet ROLANDO ([facility] [place]) 0.5 ML pneumococcal capsular polysacchar triston type [...] Prefilled Syringe [Pneumovax 23] ROLANDO ([facility] [place]) Flucelvax Quad 60 mcg (15 mcg x 4)/0.5 mL intramuscular susp INJECT 0.5ML DIRECTED [id number] completed influenza A virus A/ (H3N2) antigen 0.03 MG/ML / influenza A virus A/ (H1N1) antigen 0.03 MG/ML / influenza B virus B/ antigen 0.03 MG/ML / influenza B virus B/[facility]/[id number]/2016 antigen 0.03 MG/ML Injectable Suspension [Flucelvax Quadrivalent ] KEELER ([facility] [place]) Divalproex Sodium 500 MG Delayed Release Oral Tablet divalproex 500 mg tablet,delayed release divalproex 500 mg tablet,delayed release completed divalproex sodium 500 MG Delayed Release Oral Tablet ROLANDO ([facility] [place]) duloxetine 30 MG Delayed Release Oral Ca psule duloxetine 30 mg capsule,delayed release TAKE ONE CAPSULE BY MOUTH EVERY DAY duloxetine 30 mg capsule,delayed release TAKE ONE CAPSULE BY MOUTH EVERY DAY completed duloxetine 30 MG Delayed Release Oral Capsule ROLAND[facility] ([facility] [place]) doxycycline hyclate 100 MG Oral Tablet doxycycline hyc late 100 mg tablet doxycycline hyclate 100 mg tablet comp leted doxycycline hyclate 100 MG Oral Tablet ROLANDO ([facility] [place]) Acetaminophen 325 MG / Hydrocodone Juanita trate 7.5 MG Oral Tablet hydrocodone 7.5 mg-acetaminophen 325 mg tablet hydrocodone 7.5 mg-acetaminophen 325 mg tablet completed acetaminophen 325 MG / hydrocodone bitartrate 7.5 MG Oral Tablet ROLANDO ([facility] [place]) Sumatriptan 25 MG Oral Tablet sumatriptan 25 mg tablet sumat riptan 25 mg tablet completed sumatriptan 25 MG Oral Tablet R[facility]AND[facility] ([facility] [place]) Flucelvax Quad 60 mcg (15 mcg x 4)/0.5 mL intramuscular susp INJECT 0.5ML DIRECTED [id number] completed influenza A virus A/ (H3N2) antigen 0.03 MG/ML / influenza A virus A//2019 (H1N1) antigen 0.03 MG/ML / influenza B virus B/ antigen 0.03 MG/ML / influenza B virus B/[facility]/[id number] antigen 0.03 MG/ML Injectable Suspension [Flucelvax Quadrivalent ] ROLANDO ([facility] [place]) Divalproex Sodium 250 MG Delayed Release Oral Tablet divalproex 250 mg tablet,delayed release divalproex 250 mg tablet,delayed release completed divalproex sodium 250 MG Delayed Release Oral Tablet ROLANDO ([facility] [place]) 0.5 ML pneumococcal capsular polysacchar triston type [...] Prefilled Syringe [Pneumovax 23] ROLANDO ([facility] [place]) Simvastatin 20 MG Oral Tablet simvastatin 20 mg tablet one by mouth once daily simvastatin 20 mg tablet one by mouth once daily completed simvastatin 20 MG Oral Tablet ROLANDO ([facility] [place]) Divalproex Sodium 250 MG Delayed Release Oral Tablet divalproex 250 mg tablet,delayed release divalproex 250 mg tablet,delayed release completed divalproex sodium 250 MG Delayed Release Oral Tablet ROLADNO ([facility] [place]) Metoclopramide 10 MG Oral Tablet metoclopramide 10 mg tablet metoclopramide 10 mg tablet completed metocloprami de 10 MG Oral Tablet ROLAND[facility] ([facility] [place]) meloxicam 7.5 MG Oral Tablet meloxicam 7.5 mg tablet meloxicam 7 .5 mg tablet completed meloxicam 7.5 MG Oral Tablet R[facility]AND[facility] ([facility] [place]) carvedilol 3.125 MG Oral Tablet carvedilol 3.125 mg ta blet carvedilol 3.125 mg tablet completed carvedilol 3.12 5 MG Oral Tablet R[facility]AND[facility] ([facility] [place]) 0.5 ML pneumococcal capsular polysacchar triston type [...] Prefilled Syringe [Pneumovax 23] ROLANDO ([facility] [place]) Simvastatin 20 MG Oral Tablet simvastatin 20 mg tablet one by mouth once daily simvastatin 20 mg tablet one by mouth once daily completed simvastatin 20 MG Oral Tablet ROLAND[facility] ([facility]) Divalproex Sodium 250 MG Delayed Release Oral Tablet divalproex 250 mg tablet,delayed release divalproex 250 mg tablet,delayed release completed divalproex sodium 250 MG Delayed Release Oral Tablet ROLAND[facility] ([facility]) Amoxicillin 875 MG / Clavulanate 125 MG Oral Tablet amoxicillin 875 mg-potassium clavulanate 125 mg tablet amoxicillin 875 mg-potassium clavulanate 125 mg tablet completed amoxicillin 875 MG / clavulanate 125 MG Oral Tablet ROLANDO ([facility] [place]) zonisamide 50 MG Oral Capsule zonisamide 50 mg capsule as needed zonisamide 50 mg capsule as needed completed z onisamide 50 MG Oral Capsule ROLAND[facility] ([facility] [place]) Allopurinol 100 MG Oral Tablet allopurinol 100 mg tabl et allopurinol 100 mg tablet completed allopurinol 100 MG Oral Tablet R[facility] ([facility] [place]) carvedilol 3.125 MG Oral Tablet carvedilol 3.125 mg ta blet carvedilol 3.125 mg tablet completed carvedilol 3.12 5 MG Oral Tablet ROLANDO ([facility] [place]) duloxetine 30 MG Delayed Release Oral Ca psule duloxetine 30 mg capsule,delayed release TAKE ONE CAPSULE BY MOUTH EVERY DAY duloxetine 30 mg capsule,delayed release TAKE ONE CAPSULE BY MOUTH EVERY DAY completed duloxetine 30 MG Delayed Release Oral Capsule ROLANDO ([facility] [place]) Ondansetron 8 MG Oral Tablet ondansetron HCl 8 mg tabl et ondansetron HCl 8 mg tablet completed ondansetron 8 M G Oral Tablet [facility]AND[facility] ([facility] [place]) Ondansetron 4 MG Disintegrating Oral Tab let ondansetron 4 mg disintegrating tablet ondansetron 4 mg disintegrating tablet completed ondansetron 4 MG Disintegrating Oral Tablet ROLAND[facility] ([facility] [place]) Flucelvax Quad 60 mcg (15 mcg x 4)/0.5 mL IM suspension [id number] completed influenza A vi jeremías A/[place] (H3N2) antigen 0.03 MG/ML / influenza A virus A/[facility]LM9496/2015 (H1N1) antigen 0.03 MG/ML / influenza B virus B/ antigen 0.03 MG/ML / influenza B virus B//[id number] antigen 0.03 MG/ML Injectable Suspension ROLANDO ([facility]) carvedilol 3.125 MG Oral Tablet carvedilol 3.125 mg ta blet carvedilol 3.125 mg tablet completed carvedilol 3.12 5 MG Oral Tablet ROLANDO ([facility]) Flucelvax Quad 60 mcg (15 mcg x 4)/0.5 mL intramuscular susp INJECT 0.5ML DIRECTED [id number] completed influenza A virus A/ (H3N2) antigen 0.03 MG/ML / influenza A virus A/[facility] (H1N1) antigen 0.03 MG/ML / influenza B virus B/ antigen 0.03 MG/ML / influenza B virus B/[id number]/2016 antigen 0.03 MG/ML Injectable Suspension [Flucelvax Quadrivalent ] ROLANDO ([facility] [place]) Ondansetron 4 MG Oral Tablet ondansetron HCl 4 mg tabl et ondansetron HCl 4 mg tablet completed ondansetron 4 M G Oral Tablet ROLANDO ([facility] [place]) 0.5 ML pneumococcal capsular polysacchar triston type [...] Prefilled Syringe [Pneumovax 23] ROLANDO ([facility] [place]) Divalproex Sodium 250 MG Delayed Release Oral Tablet divalproex 250 mg tablet,delayed release divalproex 250 mg tablet,delayed release completed divalproex sodium 250 MG Delayed Release Oral Tablet ROLANDO ([facility] [place]) Amoxicillin 875 MG / Clavulanate 125 MG Oral Tablet amoxicillin 875 mg-potassium clavulanate 125 mg tablet amoxicillin 875 mg-potassium clavulanate 125 mg tablet completed amoxicillin 875 MG / clavulanate 125 MG Oral Tablet ROLANDO ([facility] [place]) meloxicam 7.5 MG Oral Tablet meloxicam 7.5 mg tablet meloxicam 7 .5 mg tablet completed meloxicam 7.5 MG Oral Tablet ROLANDO ([facility] [place]) Oseltamivir 75 MG Oral Capsule oseltamivir 75 mg capsu le oseltamivir 75 mg capsule completed oseltamivir 75 MG Oral Capsule ROLANDO ([facility] [place]) Oseltamivir 75 MG Oral Capsule oseltamivir 75 mg capsu le oseltamivir 75 mg capsule completed oseltamivir 75 MG Oral Capsule ROLANDO ([facility] [place]) Sumatriptan 25 MG Oral Tablet sumatriptan 25 mg tablet sumat riptan 25 mg tablet completed sumatriptan 25 MG Oral Tablet ROLANDO ([facility] [place]) 0.5 ML pneumococcal capsular polysacchar triston type [...] Prefilled Syringe [Pneumovax 23] ROLANDO ([facility] [place]) Amoxicillin 875 MG / Clavulanate 125 MG Oral Tablet amoxicillin 875 mg-potassium clavulanate 125 mg tablet amoxicillin 875 mg-potassium clavulanate 125 mg tablet completed amoxicillin 875 MG / clavulanate 125 MG Oral Tablet ROLANDO ([facility] [place]) Divalproex Sodium 250 MG Delayed Release Oral Tablet divalproex 250 mg tablet,delayed release divalproex 250 mg tablet,delayed release completed divalproex sodium 250 MG Delayed Release Oral Tablet ROLANDO ([facility] [place]) 24 HR Metformin hydrochloride 500 MG Ext ended Release Oral Tablet metformin ER 500 mg tablet,extended release 24 hr metformin ER 500 mg tablet,extended rele ase 24 hr completed 24 HR m etformin hydrochloride 500 MG Extended Release Oral Tablet ROLANDO ([facility] [place]) Ondansetron 8 MG Oral Tablet ondansetron HCl 8 mg tabl et ondansetron HCl 8 mg tablet completed ondansetron 8 M G Oral Tablet ROLANDO ([facility] [place]) Amoxicillin 875 MG / Clavulanate 125 MG Oral Tablet amoxicillin 875 mg-potassium clavulanate 125 mg tablet amoxicillin 875 mg-potassium clavulanate 125 mg tablet completed amoxicillin 875 MG / clavulanate 125 MG Oral Tablet ROLADNO ([facility] [place]) doxycycline hyclate 100 MG Oral Tablet doxycycline hyc late 100 mg tablet doxycycline hyclate 100 mg tablet comp leted doxycycline hyclate 100 MG Oral Tablet ROLANDO ([facility] [place]) topiramate 50 MG Oral Tablet topiramate 50 mg tablet a s needed topiramate 50 mg tablet as needed completed topir amate 50 MG Oral Tablet ROLANDO ([facility] [place]) Ondansetron 4 MG Oral Tablet ondansetron HCl 4 mg tabl et ondansetron HCl 4 mg tablet completed ondansetron 4 M G Oral Tablet ROLANDO ([facility] [place]) 24 HR Metformin hydrochloride 500 MG Ext ended Release Oral Tablet metformin ER 500 mg tablet,extended release 24 hr metformin ER 500 mg tablet,extended rele ase 24 hr completed 24 HR m etformin hydrochloride 500 MG Extended Release Oral Tablet ROLANDO ([facility] [place]) zonisamide 50 MG Oral Capsule zonisamide 50 mg capsule as needed zonisamide 50 mg capsule as needed completed z onisamide 50 MG Oral Capsule ROLANDO ([facility] [place]) Allopurinol 100 MG Oral Tablet allopurinol 100 mg tabl et allopurinol 100 mg tablet completed allopurinol 100 MG Oral Tablet ROLANDO ([facility] [place]) Ondansetron 4 MG Disintegrating Oral Tab let ondansetron 4 mg disintegrating tablet ondansetron 4 mg disintegrating tablet completed ondansetron 4 MG Disintegrating Oral Tablet ROLANDO ([facility] [place]) meloxicam 7.5 MG Oral Tablet meloxicam 7.5 mg tablet meloxicam 7 .5 mg tablet completed meloxicam 7.5 MG Oral Tablet ROLANDO ([facility] [place]) topiramate 50 MG Oral Tablet topiramate 50 mg tablet a s needed topiramate 50 mg tablet as needed completed topir amate 50 MG Oral Tablet ROLANDO ([facility] [place]) Ondansetron 8 MG Disintegrating Oral Tab let ondansetron 8 mg disintegrating tablet ondansetron 8 mg disintegrating tablet completed ondansetron 8 MG Disintegrating Oral Tablet ROLANDO ([facility] [place]) doxycycline hyclate 100 MG Oral Tablet doxycycline hyc late 100 mg tablet doxycycline hyclate 100 mg tablet comp leted doxycycline hyclate 100 MG Oral Tablet ROLANDO ([facility] [place]) Simvastatin 20 MG Oral Tablet simvastatin 20 mg tablet one by mouth once daily simvastatin 20 mg tablet one by mouth once daily completed simvastatin 20 MG Oral Tablet ROLANDO ([facility] [place]) Acetaminophen 325 MG / Hydrocodone Juanita trate 5 MG Oral Tablet hydrocodone 5 mg- acetaminophen 325 mg tablet as needed hydrocodone 5 mg-acetaminophen 325 mg tablet as needed completed acetaminophen 325 MG / hydrocodone bitartrate 5 MG Oral Tablet ROLANDO ([facility] [place]) Flucelvax Quad 60 mcg (15 mcg x 4)/0.5 mL intramuscular susp INJECT 0.5ML DIRECTED [id number] completed influenza A virus A/ (H3N2) antigen 0.03 MG/ML / influenza A virus A/[place] (H1N1) antigen 0.03 MG/ML / influenza B virus B/ antigen 0.03 MG/ML / influenza B virus B/[facility]/[id number]/2016 antigen 0.03 MG/ML Injectable Suspension [Flucelvax Quadrivalent ] ROLANDO ([facility] [place]) topiramate 50 MG Oral Tablet topiramate 50 mg tablet a s needed topiramate 50 mg tablet as needed completed topir amate 50 MG Oral Tablet ROLANDO ([facility] [place]) Sumatriptan 25 MG Oral Tablet sumatriptan 25 mg tablet sumat riptan 25 mg tablet completed sumatriptan 25 MG Oral Tablet ROLANDO ([facility] [place]) meloxicam 7.5 MG Oral Tablet meloxicam 7.5 mg tablet meloxicam 7 .5 mg tablet completed meloxicam 7.5 MG Oral Tablet ROLANDO ([facility] [place]) Acetaminophen 325 MG / Hydrocodone Juanita trate 5 MG Oral Tablet hydrocodone 5 mg- acetaminophen 325 mg tablet as needed hydrocodone 5 mg-acetaminophen 325 mg tablet as needed completed acetaminophen 325 MG / hydrocodone bitartrate 5 MG Oral Tablet ROLANDO ([facility] [place]) Metformin hydrochloride 1000 MG Oral Tablet metformin 1,000 mg tablet metformin 1,000 mg tablet completed metformin hydrochloride 1000 MG Oral Tablet ROLANDO ([facility] [place]) Ondansetron 4 MG Oral Tablet ondansetron HCl 4 mg tabl et ondansetron HCl 4 mg tablet completed ondansetron 4 M G Oral Tablet ROLANDO ([facility] [place]) carvedilol 3.125 MG Oral Tablet carvedilol 3.125 mg ta blet carvedilol 3.125 mg tablet completed carvedilol 3.12 5 MG Oral Tablet ROLANDO ([facility] [place]) Ondansetron 8 MG Oral Tablet ondansetron HCl 8 mg tabl et ondansetron HCl 8 mg tablet completed ondansetron 8 M G Oral Tablet ROLANDO ([facility] [place]) Acetaminophen 325 MG / Hydrocodone Juanita trate 5 MG Oral Tablet hydrocodone 5 mg- acetaminophen 325 mg tablet as needed hydrocodone 5 mg-acetaminophen 325 mg tablet as needed completed acetaminophen 325 MG / hydrocodone bitartrate 5 MG Oral Tablet ROLANDO ([facility] [place]) Metoclopramide 10 MG Oral Tablet metoclopramide 10 mg tablet metoclopramide 10 mg tablet completed metocloprami de 10 MG Oral Tablet ROLANDO ([facility] [place]) Acetaminophen 325 MG / Hydrocodone Juanita trate 7.5 MG Oral Tablet hydrocodone 7.5 mg-acetaminophen 325 mg tablet hydrocodone 7.5 mg-acetaminophen 325 mg tablet completed acetaminophen 325 MG / hydrocodone bitartrate 7.5 MG Oral Tablet ROLANDO ([facility] [place]) Divalproex Sodium 250 MG Delayed Release Oral Tablet divalproex 250 mg tablet,delayed release divalproex 250 mg tablet,delayed release completed divalproex sodium 250 MG Delayed Release Oral Tablet ROLANDO ([facility] [place]) meloxicam 7.5 MG Oral Tablet meloxicam 7.5 mg tablet meloxicam 7 .5 mg tablet completed meloxicam 7.5 MG Oral Tablet ROLANDO ([facility] [place]) Naproxen 250 MG Oral Tablet naproxen 250 mg tablet as needed naproxen 250 mg tablet as needed completed napro xen 250 MG Oral Tablet ROLANDO ([facility] [place]) meloxicam 7.5 MG Oral Tablet meloxicam 7.5 mg tablet meloxicam 7 .5 mg tablet completed meloxicam 7.5 MG Oral Tablet ROLANDO ([facility] [place]) Metoclopramide 10 MG Oral Tablet metoclopramide 10 mg tablet metoclopramide 10 mg tablet completed metocloprami de 10 MG Oral Tablet ROLANDO ([facility] [place]) Ondansetron 4 MG Oral Tablet ondansetron HCl 4 mg tabl et ondansetron HCl 4 mg tablet completed ondansetron 4 M G Oral Tablet ROLANDO ([facility] [place]) Sumatriptan 25 MG Oral Tablet sumatriptan 25 mg tablet sumat riptan 25 mg tablet completed sumatriptan 25 MG Oral Tablet ROLANDO ([facility] [place]) duloxetine 30 MG Delayed Release Oral Ca psule duloxetine 30 mg capsule,delayed release TAKE ONE CAPSULE BY MOUTH EVERY DAY duloxetine 30 mg capsule,delayed release TAKE ONE CAPSULE BY MOUTH EVERY DAY completed duloxetine 30 MG Delayed Release Oral Capsule ROLANDO ([facility] [place]) Fluzone Quad (PF) 60 mcg (15 m cg x 4)/0.5 mL IM syringe INJECT INTRAMUSCULARLY IN THE LEFT ARM [id number] compl eted 0.5 ML influenza A virus A/[place] (H1N1) antigen 0.03 MG/ML / influenza A virus A/[place] (H3N2) antigen 0.03 MG/ML / influenza B virus B/[place] antigen 0.03 MG/ML / influenza B virus B/[facility] antigen 0.03 MG/ML Prefilled Syringe [Fluzone Quadrivalent ] ROLANDO ([facility] [place]) Divalproex Sodium 250 MG Delayed Release Oral Tablet divalproex 250 mg tablet,delayed release divalproex 250 mg tablet,delayed release completed divalproex sodium 250 MG Delayed Release Oral Tablet ROLANDO ([facility] [place]) Ondansetron 8 MG Oral Tablet ondansetron HCl 8 mg tabl et ondansetron HCl 8 mg tablet completed ondansetron 8 M G Oral Tablet ROLANDO ([facility] [place]) Divalproex Sodium 250 MG Delayed Release Oral Tablet divalproex 250 mg tablet,delayed release divalproex 250 mg tablet,delayed release completed divalproex sodium 250 MG Delayed Release Oral Tablet ROLANDO ([facility] [place]) meloxicam 7.5 MG Oral Tablet meloxicam 7.5 mg tablet meloxicam 7 .5 mg tablet completed meloxicam 7.5 MG Oral Tablet ROLANDO ([facility] [place]) topiramate 50 MG Oral Tablet topiramate 50 mg tablet a s needed topiramate 50 mg tablet as needed completed topir amate 50 MG Oral Tablet ROLANDO ([facility] [place]) 0.5 ML pneumococcal capsular polysacchar triston type [...] Prefilled Syringe [Pneumovax 23] ROLANDO ([facility] [place]) Metoclopramide 10 MG Oral Tablet metoclopramide 10 mg tablet metoclopramide 10 mg tablet completed metocloprami de 10 MG Oral Tablet ROLANDO ([facility] [place]) Acetaminophen 325 MG / Hydrocodone Juanita trate 5 MG Oral Tablet hydrocodone 5 mg- acetaminophen 325 mg tablet as needed hydrocodone 5 mg-acetaminophen 325 mg tablet as needed completed acetaminophen 325 MG / hydrocodone bitartrate 5 MG Oral Tablet ROLANDO ([facility] [place]) Metoclopramide 10 MG Oral Tablet metoclopramide 10 mg tablet metoclopramide 10 mg tablet completed metocloprami de 10 MG Oral Tablet ROLANDO ([facility] [place]) Acetaminophen 325 MG / Hydrocodone Juanita trate 5 MG Oral Tablet hydrocodone 5 mg- acetaminophen 325 mg tablet as needed hydrocodone 5 mg-acetaminophen 325 mg tablet as needed completed acetaminophen 325 MG / hydrocodone bitartrate 5 MG Oral Tablet ROLANDO ([facility] [place]) Acetaminophen 325 MG / Hydrocodone Juanita trate 7.5 MG Oral Tablet hydrocodone 7.5 mg-acetaminophen 325 mg tablet hydrocodone 7.5 mg-acetaminophen 325 mg tablet completed acetaminophen 325 MG / hydrocodone bitartrate 7.5 MG Oral Tablet ROLANDO ([facility] [place]) Ondansetron 4 MG Oral Tablet ondansetron HCl 4 mg tabl et ondansetron HCl 4 mg tablet completed ondansetron 4 M G Oral Tablet ROLANDO ([facility] [place]) Flucelvax Quad [id number] 60 mcg (15 mcg x 4)/0.5 mL IM suspension [id number] completed influenza A vi jeremías A/[place] (H3N2) antigen 0.03 MG/ML / influenza A virus A/[facility] (H1N1) antigen 0.03 MG/ML / influenza B virus B/ antigen 0.03 MG/ML / influenza B virus B/[facility]/HIAXR-[id number]/2016 antigen 0.03 MG/ML Injectable Suspension ROLANDO ([facility] [place]) Divalproex Sodium 500 MG Delayed Release Oral Tablet divalproex 500 mg tablet,delayed release divalproex 500 mg tablet,delayed release completed divalproex sodium 500 MG Delayed Release Oral Tablet ROLANDO ([facility] [place]) 24 HR Metformin hydrochloride 500 MG Ext ended Release Oral Tablet metformin ER 500 mg tablet,extended release 24 hr metformin ER 500 mg tablet,extended rele ase 24 hr completed 24 HR m etformin hydrochloride 500 MG Extended Release Oral Tablet ROLANDO ([facility] [place]) topiramate 50 MG Oral Tablet topiramate 50 mg tablet a s needed topiramate 50 mg tablet as needed completed topir amate 50 MG Oral Tablet ROLANDO ([facility] [place]) carvedilol 3.125 MG Oral Tablet carvedilol 3.125 mg ta blet carvedilol 3.125 mg tablet completed carvedilol 3.12 5 MG Oral Tablet ROLANDO ([facility] [place]) zonisamide 50 MG Oral Capsule zonisamide 50 mg capsule as needed zonisamide 50 mg capsule as needed completed z onisamide 50 MG Oral Capsule ROLANDO ([facility] [place]) doxycycline hyclate 100 MG Oral Tablet doxycycline hyc late 100 mg tablet doxycycline hyclate 100 mg tablet comp leted doxycycline hyclate 100 MG Oral Tablet ROLANDO ([facility]) 0.5 ML pneumococcal capsular polysacchar triston type [...] Prefilled Syringe [Pneumovax 23] ROLANDO ([facility]) carvedilol 3.125 MG Oral Tablet carvedilol 3.125 mg ta blet carvedilol 3.125 mg tablet completed carvedilol 3.12 5 MG Oral Tablet ROLANDO ([facility] [place] [facility]) carvedilol 3.125 MG Oral Tablet carvedilol 3.125 mg ta blet carvedilol 3.125 mg tablet completed carvedilol 3.12 5 MG Oral Tablet ROLANDO ([facility] [place] [facility]) Simvastatin 20 MG Oral Tablet simvastatin 20 mg tablet one by mouth once daily simvastatin 20 mg tablet one by mouth once daily completed simvastatin 20 MG Oral Tablet ROLANDO ([facility] [place] [facility]) Amoxicillin 875 MG / Clavulanate 125 MG Oral Tablet amoxicillin 875 mg-potassium clavulanate 125 mg tablet amoxicillin 875 mg-potassium clavulanate 125 mg tablet completed amoxicillin 875 MG / clavulanate 125 MG Oral Tablet ROLANDO ([facility] [place]) Metoclopramide 10 MG Oral Tablet metoclopramide 10 mg tablet metoclopramide 10 mg tablet completed metocloprami de 10 MG Oral Tablet ROLANDO ([facility] [place]) Ondansetron 8 MG Oral Tablet ondansetron HCl 8 mg tabl et ondansetron HCl 8 mg tablet completed ondansetron 8 M G Oral Tablet ROLANDO ([facility] [place]) meloxicam 7.5 MG Oral Tablet meloxicam 7.5 mg tablet meloxicam 7 .5 mg tablet completed meloxicam 7.5 MG Oral Tablet ROLANDO ([facility] [place]) Ondansetron 8 MG Disintegrating Oral Tab let ondansetron 8 mg disintegrating tablet ondansetron 8 mg disintegrating tablet completed ondansetron 8 MG Disintegrating Oral Tablet ROLANDO ([facility] [place]) topiramate 50 MG Oral Tablet topiramate 50 mg tablet a s needed topiramate 50 mg tablet as needed completed topir amate 50 MG Oral Tablet ROLANDO ([facility] [place]) zonisamide 50 MG Oral Capsule zonisamide 50 mg capsule as needed zonisamide 50 mg capsule as needed completed z onisamide 50 MG Oral Capsule ROLANDO ([facility] [place] [facility]) Acetaminophen 325 MG / Hydrocodone Juanita trate 5 MG Oral Tablet hydrocodone 5 mg- acetaminophen 325 mg tablet as needed hydrocodone 5 mg-acetaminophen 325 mg tablet as needed completed acetaminophen 325 MG / hydrocodone bitartrate 5 MG Oral Tablet ROLANDO ([facility] [place] [facility]) Flucelvax Quad 60 mcg (15 mcg x 4)/0.5 mL intramuscular susp INJECT 0.5ML DIRECTED [id number] completed influenza A virus A/ (H3N2) antigen 0.03 MG/ML / influenza A virus A/[place] (H1N1) antigen 0.03 MG/ML / influenza B virus B/ antigen 0.03 MG/ML / influenza B virus B/[facility]/[id number] antigen 0.03 MG/ML Injectable Suspension [Flucelvax Quadrivalent ] ROLANDO ([facility]) Ondansetron 8 MG Oral Tablet ondansetron HCl 8 mg tabl et ondansetron HCl 8 mg tablet completed ondansetron 8 M G Oral Tablet ROLANDO ([facility] [place]) Acetaminophen 325 MG / Hydrocodone Juanita trate 7.5 MG Oral Tablet hydrocodone 7.5 mg-acetaminophen 325 mg tablet hydrocodone 7.5 mg-acetaminophen 325 mg tablet completed acetaminophen 325 MG / hydrocodone bitartrate 7.5 MG Oral Tablet ROLANDO ([facility] [place]) Divalproex Sodium 500 MG Delayed Release Oral Tablet divalproex 500 mg tablet,delayed release divalproex 500 mg tablet,delayed release completed divalproex sodium 500 MG Delayed Release Oral Tablet ROLANDO ([facility] [place]) 24 HR Metformin hydrochloride 500 MG Ext ended Release Oral Tablet metformin ER 500 mg tablet,extended release 24 hr metformin ER 500 mg tablet,extended rele ase 24 hr completed 24 HR m etformin hydrochloride 500 MG Extended Release Oral Tablet ROLANDO ([facility] [place]) carvedilol 3.125 MG Oral Tablet carvedilol 3.125 mg ta blet carvedilol 3.125 mg tablet completed carvedilol 3.12 5 MG Oral Tablet ROLANDO ([facility] [place]) Allopurinol 100 MG Oral Tablet allopurinol 100 mg tabl et allopurinol 100 mg tablet completed allopurinol 100 MG Oral Tablet ROLANDO ([facility] [place]) Fluzone Quad [id number] (PF) 60 mcg (15 m cg x 4)/0.5 mL IM syringe INJECT INTRAMUSCULARLY IN THE LEFT ARM [id number] compl eted 0.5 ML influenza A virus A/[place] (H1N1) antigen 0.03 MG/ML / influenza A virus A/ (H3N2) antigen 0.03 MG/ML / influenza B virus B/ antigen 0.03 MG/ML / [facility] MG/ML Prefilled Syringe [Fluzone Quadrivalent ] ROLANDO ([facility] [place]) 0.5 ML pneumococcal capsular polysacchar triston type [...] Prefilled Syringe [Pneumovax 23] ROLANDO ([facility] [place]) Sumatriptan 25 MG Oral Tablet sumatriptan 25 mg tablet sumat riptan 25 mg tablet completed sumatriptan 25 MG Oral Tablet ROLANDO ([facility]) doxycycline hyclate 100 MG Oral Tablet doxycycline hyc late 100 mg tablet doxycycline hyclate 100 mg tablet comp leted doxycycline hyclate 100 MG Oral Tablet ROLANDO ([facility]) zonisamide 50 MG Oral Capsule zonisamide 50 mg capsule as needed zonisamide 50 mg capsule as needed completed z onisamide 50 MG Oral Capsule ROLANDO ([facility]) doxycycline hyclate 100 MG Oral Tablet doxycycline hyc late 100 mg tablet doxycycline hyclate 100 mg tablet comp leted doxycycline hyclate 100 MG Oral Tablet ROLANDO ([facility]) Naproxen 250 MG Oral Tablet naproxen 250 mg tablet as needed naproxen 250 mg tablet as needed completed napro xen 250 MG Oral Tablet ROLANDO ([facility]) Naproxen 250 MG Oral Tablet naproxen 250 mg tablet as needed naproxen 250 mg tablet as needed completed napro xen 250 MG Oral Tablet ROLANDO ([facility]) Allopurinol 100 MG Oral Tablet allopurinol 100 mg tabl et allopurinol 100 mg tablet completed allopurinol 100 MG Oral Tablet ROLANDO ([facility]) Allopurinol 100 MG Oral Tablet allopurinol 100 mg tabl et allopurinol 100 mg tablet completed allopurinol 100 MG Oral Tablet ROLANDO ([facility]) Flucelvax Quad [id number] 60 mcg (15 mcg x 4)/0.5 mL intramuscular susp INJECT 0.5ML DIRECTED [id number] completed influenza A virus A/ (H3N2) antigen 0.03 MG/ML / influenza A virus A/[place] (H1N1) antigen 0.03 MG/ML / influenza B virus B/ antigen 0.03 MG/ML / influenza B virus B/[facility]/[id number] antigen 0.03 MG/ML Injectable Suspension [Flucelvax Quadrivalent ] ROLANDO ([facility]) Oseltamivir 75 MG Oral Capsule oseltamivir 75 mg capsu le oseltamivir 75 mg capsule completed oseltamivir 75 MG Oral Capsule ROLANDO ([facility]) Naproxen 250 MG Oral Tablet naproxen 250 mg tablet as needed naproxen 250 mg tablet as needed completed napro xen 250 MG Oral Tablet ROLANDO ([facility]) Sumatriptan 25 MG Oral Tablet sumatriptan 25 mg tablet sumat riptan 25 mg tablet completed sumatriptan 25 MG Oral Tablet ROLANDO ([facility]) Sumatriptan 25 MG Oral Tablet sumatriptan 25 mg tablet sumat riptan 25 mg tablet completed sumatriptan 25 MG Oral Tablet ROLANDO ([facility]) Ondansetron 8 MG Oral Tablet ondansetron HCl 8 mg tabl et ondansetron HCl 8 mg tablet completed ondansetron 8 M G Oral Tablet ROLANDO ([facility]) zonisamide 50 MG Oral Capsule zonisamide 50 mg capsule as needed zonisamide 50 mg capsule as needed completed z onisamide 50 MG Oral Capsule ROLANDO ([facility]) 24 HR Metformin hydrochloride 500 MG Ext ended Release Oral Tablet metformin ER 500 mg tablet,extended release 24 hr metformin ER 500 mg tablet,extended rele ase 24 hr completed 24 HR m etformin hydrochloride 500 MG Extended Release Oral Tablet ROLANDO ([facility]) Ondansetron 4 MG Oral Tablet ondansetron HCl 4 mg tabl et ondansetron HCl 4 mg tablet completed ondansetron 4 M G Oral Tablet ROLANDO ([facility]) Oseltamivir 75 MG Oral Capsule oseltamivir 75 mg capsu le oseltamivir 75 mg capsule completed oseltamivir 75 MG Oral Capsule ROLANDO ([facility]) 24 HR Metformin hydrochloride 500 MG Ext ended Release Oral Tablet metformin ER 500 mg tablet,extended release 24 hr metformin ER 500 mg tablet,extended rele ase 24 hr completed 24 HR m etformin hydrochloride 500 MG Extended Release Oral Tablet ROLANDO ([facility] [place]) Oseltamivir 75 MG Oral Capsule oseltamivir 75 mg capsu le oseltamivir 75 mg capsule completed oseltamivir 75 MG Oral Capsule ROLANDO ([facility] [place]) Amoxicillin 875 MG / Clavulanate 125 MG Oral Tablet amoxicillin 875 mg-potassium clavulanate 125 mg tablet amoxicillin 875 mg-potassium clavulanate 125 mg tablet completed amoxicillin 875 MG / clavulanate 125 MG Oral Tablet ROLANDO ([facility] [place]) topiramate 25 MG Oral Tablet topiramate 25 mg tablet TAKE ONE TABLET BY MOUTH TWICE A DAY DIRECTED topiramate 25 mg tablet TAKE ONE TABLET BY MOUTH TWICE A DAY DIRECTED completed topira mate 25 MG Oral Tablet ROLANDO ([facility] [place]) Divalproex Sodium 250 MG Delayed Release Oral Tablet divalproex 250 mg tablet,delayed release divalproex 250 mg tablet,delayed release completed divalproex sodium 250 MG Delayed Release Oral Tablet ROLANDO ([facility] [place]) meloxicam 7.5 MG Oral Tablet meloxicam 7.5 mg tablet meloxicam 7 .5 mg tablet completed meloxicam 7.5 MG Oral Tablet ROLANDO ([facility] [place]) meloxicam 7.5 MG Oral Tablet meloxicam 7.5 mg tablet meloxicam 7 .5 mg tablet completed meloxicam 7.5 MG Oral Tablet ROLANDO ([facility] [place]) Naproxen 250 MG Oral Tablet naproxen 250 mg tablet as needed naproxen 250 mg tablet as needed completed napro xen 250 MG Oral Tablet ROLANDO ([facility] [place]) Acetaminophen 325 MG / Hydrocodone Juanita trate 7.5 MG Oral Tablet hydrocodone 7.5 mg-acetaminophen 325 mg tablet hydrocodone 7.5 mg-acetaminophen 325 mg tablet completed acetaminophen 325 MG / hydrocodone bitartrate 7.5 MG Oral Tablet ROLANDO ([facility] [place]) Sumatriptan 25 MG Oral Tablet sumatriptan 25 mg tablet sumat riptan 25 mg tablet completed sumatriptan 25 MG Oral Tablet ROLANDO ([facility] [place]) Ondansetron 4 MG Oral Tablet ondansetron HCl 4 mg tabl et ondansetron HCl 4 mg tablet completed ondansetron 4 M G Oral Tablet ROLANDO ([facility] [place]) doxycycline hyclate 100 MG Oral Tablet doxycycline hyc late 100 mg tablet doxycycline hyclate 100 mg tablet comp leted doxycycline hyclate 100 MG Oral Tablet ROLANDO ([facility] [place]) Divalproex Sodium 500 MG Delayed Release Oral Tablet divalproex 500 mg tablet,delayed release divalproex 500 mg tablet,delayed release completed divalproex sodium 500 MG Delayed Release Oral Tablet ROLANDO ([facility] [place]) Fluzone Quad [id number] (PF) 60 mcg (15 m cg x 4)/0.5 mL IM syringe INJECT INTRAMUSCULARLY IN THE LEFT ARM [id number] compl eted 0.5 ML influenza A virus A/ (H1N1) antigen 0.03 MG/ML / influenza A virus A/ (H3N2) antigen 0.03 MG/ML / influenza B virus B/ antigen 0.03 MG/ML / influenza B virus B/[facility] antigen 0.03 MG/ML Prefilled Syringe [Fluzone Quadrivalent ] ROLANDO ([facility] [place]) Naproxen 250 MG Oral Tablet naproxen 250 mg tablet as needed naproxen 250 mg tablet as needed completed napro xen 250 MG Oral Tablet ROLANDO ([facility] [place]) duloxetine 30 MG Delayed Release Oral Ca psule duloxetine 30 mg capsule,delayed release TAKE ONE CAPSULE BY MOUTH EVERY DAY duloxetine 30 mg capsule,delayed release TAKE ONE CAPSULE BY MOUTH EVERY DAY completed duloxetine 30 MG Delayed Release Oral Capsule ROLANDO ([facility] [place]) Amoxicillin 875 MG / Clavulanate 125 MG Oral Tablet amoxicillin 875 mg-potassium clavulanate 125 mg tablet amoxicillin 875 mg-potassium clavulanate 125 mg tablet completed amoxicillin 875 MG / clavulanate 125 MG Oral Tablet ROLANDO ([facility] [place]) carvedilol 3.125 MG Oral Tablet carvedilol 3.125 mg ta blet carvedilol 3.125 mg tablet completed carvedilol 3.12 5 MG Oral Tablet ROLANDO ([facility] [place]) Sumatriptan 25 MG Oral Tablet sumatriptan 25 mg tablet sumat riptan 25 mg tablet completed sumatriptan 25 MG Oral Tablet ROLANDO ([facility] [place]) meloxicam 7.5 MG Oral Tablet meloxicam 7.5 mg tablet meloxicam 7 .5 mg tablet completed meloxicam 7.5 MG Oral Tablet ROLANDO ([facility] [place]) Divalproex Sodium 500 MG Delayed Release Oral Tablet divalproex 500 mg tablet,delayed release divalproex 500 mg tablet,delayed release completed divalproex sodium 500 MG Delayed Release Oral Tablet ROLANDO ([facility] [place]) Naproxen 250 MG Oral Tablet naproxen 250 mg tablet as needed naproxen 250 mg tablet as needed completed napro xen 250 MG Oral Tablet ROLANDO ([facility] [place]) Acetaminophen 325 MG / Hydrocodone Juanita trate 7.5 MG Oral Tablet hydrocodone 7.5 mg-acetaminophen 325 mg tablet hydrocodone 7.5 mg-acetaminophen 325 mg tablet completed acetaminophen 325 MG / hydrocodone bitartrate 7.5 MG Oral Tablet ROLANDO ([facility] [place]) Sumatriptan 25 MG Oral Tablet sumatriptan 25 mg tablet sumat riptan 25 mg tablet completed sumatriptan 25 MG Oral Tablet ROLANDO ([facility] [place]) icosapent ethyl 1000 MG Oral Capsule [Vascepa] Vascepa 1 gram capsule Vascepa 1 gram capsule completed i cosapent ethyl 1000 MG Oral Capsule [Vascepa] ROLANDO ([facility] [place]) Oseltamivir 75 MG Oral Capsule oseltamivir 75 mg capsu le oseltamivir 75 mg capsule completed oseltamivir 75 MG Oral Capsule ROLANDO ([facility] [place]) Sumatriptan 25 MG Oral Tablet sumatriptan 25 mg tablet sumat riptan 25 mg tablet completed sumatriptan 25 MG Oral Tablet ROLANDO ([facility] [place]) 0.5 ML pneumococcal capsular polysacchar triston type [...] Prefilled Syringe [Pneumovax 23] ROLANDO ([facility] [place]) Acetaminophen 325 MG / Hydrocodone Juanita trate 7.5 MG Oral Tablet hydrocodone 7.5 mg-acetaminophen 325 mg tablet hydrocodone 7.5 mg-acetaminophen 325 mg tablet completed acetaminophen 325 MG / hydrocodone bitartrate 7.5 MG Oral Tablet ROLANDO ([facility] [place]) Flucelvax Quad [id number] 60 mcg (15 mcg x 4)/0.5 mL IM suspension [id number] completed influenza A vi jeremías A/[place] (H3N2) antigen 0.03 MG/ML / influenza A virus A//[id number]/2015 (H1N1) antigen 0.03 MG/ML / influenza B virus B/ antigen 0.03 MG/ML / influenza B virus B//[id number]/2016 antigen 0.03 MG/ML Injectable Suspension ROLANDO ([facility] [place]) Ondansetron 4 MG Disintegrating Oral Tab let ondansetron [address] ONE TABLET BY MOUTH THREE TIMES A DAY FOR 7 DAYS ondansetron [address] ONE TABLET BY MOUTH THREE TIMES A DAY FOR 7 DAYS completed ondansetron 4 MG Disintegrating Oral Tablet ROLANDO ([facility] [place]) Amoxicillin 875 MG / Clavulanate 125 MG Oral Tablet amoxicillin 875 mg-potassium clavulanate 125 mg tablet amoxicillin 875 mg-potassium clavulanate 125 mg tablet completed amoxicillin 875 MG / clavulanate 125 MG Oral Tablet ROLANDO ([facility] [place]) Divalproex Sodium 500 MG Delayed Release Oral Tablet divalproex 500 mg tablet,delayed release divalproex 500 mg tablet,delayed release completed divalproex sodium 500 MG Delayed Release Oral Tablet ROLANDO ([facility] [place]) Simvastatin 20 MG Oral Tablet simvastatin 20 mg tablet one by mouth once daily simvastatin 20 mg tablet one by mouth once daily completed simvastatin 20 MG Oral Tablet ROLANDO ([facility] [place]) Amoxicillin 875 MG / Clavulanate 125 MG Oral Tablet amoxicillin 875 mg-potassium clavulanate 125 mg tablet amoxicillin 875 mg-potassium clavulanate 125 mg tablet completed amoxicillin 875 MG / clavulanate 125 MG Oral Tablet ROLANDO ([facility] [place]) Simvastatin 20 MG Oral Tablet simvastatin 20 mg tablet one by mouth once daily simvastatin 20 mg tablet one by mouth once daily completed simvastatin 20 MG Oral Tablet ROLANDO ([facility] [place]) Acetaminophen 325 MG / Hydrocodone Juanita trate 5 MG Oral Tablet hydrocodone 5 mg- acetaminophen 325 mg tablet as needed hydrocodone 5 mg-acetaminophen 325 mg tablet as needed completed acetaminophen 325 MG / hydrocodone bitartrate 5 MG Oral Tablet ROLANDO ([facility] [place]) Acetaminophen 325 MG / Hydrocodone Juanita trate 5 MG Oral Tablet hydrocodone 5 mg- acetaminophen 325 mg tablet as needed hydrocodone 5 mg-acetaminophen 325 mg tablet as needed completed acetaminophen 325 MG / hydrocodone bitartrate 5 MG Oral Tablet ROLANDO ([facility] [place]) Insurance Providers Payer name Policy type / Coverage type Policy ID Covered constitution party ID Covered constitution party's relationship to lyles Policy Lyles Plan Information STATE INSURANCE FUND [id number] SP [id number] [facility] [id number] BCBS EMPIRE RICK DIV [id number] SP [id number] [facility] [id number] SP [id number] [employer] [id number] SP [id number] [employer] [id number] SP [id number] BCBS EMPIRE RICK DIV [id number] SP [id number] BCBS EMPIRE RICK DIV [id number] SP [id number] [facility] [id number] SP [id number] [facility] [id number] SP [id number] [facility] INSURANCE [facility] [id number] SP [id number] BCBS EMPIRE RICK DIV [id number] SP [id number] BC BLUE CARD 1 [id number] [facility] [id number] SP [id number] BCBS EMPIRE RICK DIV [id number] SP [id number] EMPIRE PLAN CLAIMS 1 [id number] 1 [id number] Workers 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 WorkComp Health Claim [id number] Emplo barrientos [id number] Work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 [place] Work[employer] Health Claim [id number] Employee [id number] Needs Workers Comp Information WorkComp Health Claim [id number] Employee [id number] Workers 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 WorkComp Health Claim [id number] Emplo barrientos [id number] [employer] [id number] 2..[id number] .[id number] Self [id number] [facility] Health Maintenance Organization (HMO) [id number] Self [id number] [employer] [id number] ..[id number] .[id number] Self [id number] [facility] [employer] [id number] .840.1.981387.3.227 .99.1037.29041.0 Self [id number] [facility] [employer] [id number] ..840.1.116906.3.227 .99.1037.18191.0 Self [id number] [facility] Commercial [id number] 2.16840.1.538635.3.227 .99.1037.83661.0 Self [id number] [facility] ([facility]) [id number] [id number] Self [id number] [employer] [id number] 2.16840.1.783232.3.227 .99.1037.98960.0 Self [id number] [facility] [employer] [id number] 2.16840.1.381709.3.227 .99.1037.87320.0 Self [id number] [employer] [id number] 2.160.1.087904.3.227 .99.1037.63586.0 Self [id number] [facility] [employer] [id number] 2.16840.1.353362.3.227.99.1767.1467.0 Self [id number] [facility] [employer] [id number] 2.16840.1.184112.3.227.99.1767.1467.0 Self [id number] [facility] ([facility]) [id number] 2.168[id number] Self [id number] [employer] [id number] 2.16840.1.958492.3.227 .99.1037.47321.0 Self [id number] [facility] [employer] [id number] 2.16840.1.139296.3.227.99.1767.1467.0 Self [id number] [employer] [id number] 2.16840.1.025887.3.227.99.1767.1467.0 Self [id number] [facility] [employer] [id number] 2.16840.1.572119.3.227.99.1767.1467.0 Self [id number] [facility] [employer] [id number] 2.16840.1.645494.3.227.99.1767.1467.0 Self [id number] [facility] [employer] [id number] 2.16840.1.495347.3.227.99.1767.1467.0 Self [id number] [facility] [employer] [id number] 2.16840.1.746544.3.227.99.1767.1467.0 Self [id number] [facility] Organization (HMO[facility] [id number] 2.16840.1.442078.3.227.99.991.041177.0 Self [id number] [facility] [employer] [id number] 2.0.1.166890.3.227 .99.1037.49903.0 Self [id number] [facility] [employer] [id number] 2.0.1.779878.3.227.99.1767.1467.0 Self [id number] [facility] O [id number] S [id number] [facility] O [id number] S [id number] [facility] Health Maintenance Organization (HMO) [id number] Self [id number] [facility] [employer] [id number] 2.0.1.719484.3.227.99.1767.1467.0 Self [id number] [facility] [employer] [id number] 2.0.1.170762.3.227 .99.1037.25322.0 Self [id number] [facility] [facility] [id number] Self [id number] [facility] [id number] Self [id number] [facility] [id number] Self [id number] [facility] Health Maintenance Organization (HMO) 8 [id number] Self [id number] [facility] [id number] Self [id number] [facility] [id number] Self [id number] [facility] [id number] Self [id number] [facility] Health Maintenance Organization (HMO) 8 [id number] Self [id number] [facility] [id number] Self [id number] [facility] Health Maintenance Organization (HMO) [id number] Self [facility] [id number] Self [facility] [id number] Self [facility] ([place], [place]) Medicare Primary [id number] Self [facility] [address] Self SELF PAY 2 UNAVAILABLE 1 UNAVAILA BLE STATE INSURANCE FUND [id number] SP [id number] STATE INSURANCE FUND [id number] S [id number] [facility] INSURANCE FUND [id number] S [id number] STATE INSURANCE FUND [id number] SP [id number] STATE INSURANCE FUND [id number] SP [id number] STATE INSURANCE FUND [id number] SP [id number] STATE INSURANCE FUND [id number] SP [id number] [place] [facility]) O [id number] S [id number] UNITED [employer] O [id number] S [id number] [facility] [id number] Self [id number] [facility] [employer] [id number] Self [id number] [facility] [employer] [id number] Self [id number] [employer] [place] RCIK DIV [id number] SP [id number] [facility] [id number] Self [id number] [facility] [employer] [id number] Self [id number] [facility] [employer] [id number] Self [id number] [facility] Health Maintenance Organization (O) 8 [id number] Self [id number] [facility] F [id number] SELF [id number] [facility] Health Maintenance Organization (HMO) 8 [id number] Self [id number] [facility] Commercial [id number] Self [id number] Problems, Conditions, and Diagnoses Code Display Name Description Problem Type Effective Dates Data Source(s) G43.709 [id number] Chronic migraine without aura or status m igrainosus Problem 01/08/2021 12:00:00 AM EDT eCW1 ([facility]) Surgeries/Procedures Procedure Description Date Indications Data Source(s) MANUAL THERAPY TQS 1/> REGIONS EACH 15 MINUTES 021 12:00:00 AM EST MEDENT ([facility]) APPLICATION MODALITY 1/> AREAS HOT/COLD PACKS 07/20/20 21 12:00:00 AM EST [facility] ([facility]) APPL MODALITY 1/> AREAS ELEC STIMJ EA 15 MIN 1 12:00:00 AM EST [facility] ([facility]) THERAPEUTIC PX 1/> AREAS EACH 15 MIN EXERCISES 12:00:00 AM EST [facility] ([facility]) APPLICATION MODALITY 1/> AREAS HOT/COLD PACKS 07/16/20 21 12:00:00 AM EST [facility] ([facility]) APPL MODALITY 1/> AREAS ELEC STIMJ EA 15 MIN 12:00:00 AM EST [facility] ([facility]) THERAPEUTIC PX 1/> AREAS EACH 15 MIN EXERCISES 12:00:00 AM EST [facility] ([facility]) MANUAL THERAPY TQS 1/> REGIONS EACH 15 MINUTES 12:00:00 AM EST [facility]ENT ([facility]) Re-Eval Of PT Established Plan Of Care 20Mins Face To Face P T/Fam 07/10/2021 12:00:00 AM EDT [facility] ([facility]) APPL MODALITY 1/> AREAS ELEC STIMJ EA 15 MIN 12:00:00 AM EDT [facility] ([facility]) APPLICATION MODALITY 1/> AREAS HOT/COLD PACKS 07/10/20 21 12:00:00 AM EDT [facility] ([facility]) MANUAL THERAPY TQS 1/> REGIONS EACH 15 MINUTES 12:00:00 AM EDT [facility] ([facility]) APPLICATION MODALITY 1/> AREAS HOT/COLD PACKS 05/15/20 21 12:00:00 AM EDT [facility] ([facility]) APPL MODALITY 1/> AREAS ELEC STIMJ EA 15 MIN 12:00:00 AM EDT [facility] ([facility]) THERAPEUTIC PX 1/> AREAS EACH 15 MIN EXERCISES 021 12:00:00 AM EDT [facility] ([facility]) MANUAL THERAPY TQS 1/> REGIONS EACH 15 MINUTES 09/10/2 021 12:00:00 AM EDT [facility] ([facility] THERAPEUTIC PX 1/> AREAS EACH 15 MIN EXERCISES 021 12:00:00 AM EDT [facility] ([facility]) APPL MODALITY 1/> AREAS ELEC STIMJ EA 15 MIN 1 12:00:00 AM EDT [facility] ([facility] APPLICATION MODALITY 1/> AREAS HOT/COLD PACKS 05/08/20 21 12:00:00 AM EDT [facility] ([facility] ) MANUAL THERAPY TQS 1/> REGIONS EACH 15 MINUTES 12:00:00 AM EDT [facility] ([facility] APPLICATION MODALITY 1/> AREAS HOT/COLD PACKS 05/01/20 21 12:00:00 AM EDT [facility] ([facility] APPL MODALITY 1/> AREAS ELEC STIMJ EA 15 MIN 1 12:00:00 AM EDT [facility] ([facility] ) THERAPEUTIC PX 1/> AREAS EACH 15 MIN EXERCISES 021 12:00:00 AM EDT [facility] ([facility] ) MANUAL THERAPY TQS 1/> REGIONS EACH 15 MINUTES 021 12:00:00 AM EDT [facility] ([facility] ) APPL MODALITY 1/> AREAS ELEC STIMJ EA 15 MIN 1 12:00:00 AM EDT [facility] ([facility] ) THERAPEUTIC PX 1/> AREAS EACH 15 MIN EXERCISES 021 12:00:00 AM EDT [facility] ([facility] ) MANUAL THERAPY TQS 1/> REGIONS EACH 15 MINUTES 021 12:00:00 AM EDT [facility] ([facility] ) APPL MODALITY 1/> AREAS ELEC STIMJ EA 15 MIN 1 12:00:00 AM EDT [facility] ([facility] ) THERAPEUTIC PX 1/> AREAS EACH 15 MIN EXERCISES 021 12:00:00 AM EDT [facility] ([facility] ) MANUAL THERAPY TQS 1/> REGIONS EACH 15 MINUTES 021 12:00:00 AM EDT MED[facility] ([facility] ) MANUAL THERAPY TQS 1/> REGIONS EACH 15 MINUTES 021 12:00:00 AM EDT [facility] ([facility]) Re-Eval Of PT Established Plan Of Care 20Mins Face To Face P T/Fam 04/10/2021 12:00:00 AM EDT [facility] ([facility]) OFFICE OUTPATIENT VISIT 25 MINUTES 02/20/2021 12:00:00 AM EDT [facility] ([facility]) APPLICATION MODALITY 1/> AREAS HOT/COLD PACKS 01/17/20 12:00:00 AM EDT [facility] ([facility]) APPL MODALITY 1/> AREAS ELEC STIMJ EA 15 MIN 12:00:00 AM EDT [facility] ([facility]) THERAPEUTIC PX 1/> AREAS EACH 15 MIN EXERCISES 12:00:00 AM EDT [facility] ([facility]) MANUAL THERAPY TQS 1/> REGIONS EACH 15 MINUTES 12:00:00 AM EDT [facility] ([facility]) Re-Eval Of PT Established Plan Of Care 20Mins Face To Face P T/Fam 01/16/2021 12:00:00 AM EDT [facility] ([facility]) Therapeutic, Prophylactic Or Diagnostic Injection Subq/Im 01/15/2021 12:00:00 AM EDT [facility] APPLICATION MODALITY 1/> AREAS HOT/COLD PACKS 01/10/20 21 12:00:00 AM EDT MEDENT ([facility]) THERAPEUTIC PX 1/> AREAS EACH 15 MIN EXERCISES 12:00:00 AM EDT [facility] ([facility]) MANUAL THERAPY TQS 1/> REGIONS EACH 15 MINUTES 021 12:00:00 AM EDT [facility] ([facility]) APPLICATION MODALITY 1/> AREAS HOT/COLD PACKS 01/03/20 21 12:00:00 AM EDT [facility] ([facility]) MANUAL THERAPY TQS 1/> REGIONS EACH 15 MINUTES 021 12:00:00 AM EDT [facility] ([facility]) APPLICATION MODALITY 1/> AREAS HOT/COLD PACKS 12/27/19 21 12:00:00 AM EDT [facility] ([facility]) MANUAL THERAPY TQS 1/> REGIONS EACH 15 MINUTES 021 12:00:00 AM EDT [facility] ([facility]) Physical Therapy Eval - Mod Complexity 12/19/2020 12:0 0:00 AM EDT MEDENT ([facility]) OFFICE OUTPATIENT VISIT 40 MINUTES 12/02/2020 12:00:00 AM EDT MEDENT ([facility]) Therapeutic, Prophylactic Or Diagnostic Injection Subq/Im 11/07/2020 12:00:00 AM EST [facility] ([facility]) OFFICE OUTPATIENT VISIT 40 MINUTES 09/10/2020 12:00:00 AM EST [facility] ([facility]) Results ID Date Data Source [id number] 02/11/2021 11:18:00 AM EDT [facility] Name Value Range Interpretation Code Description Data Heena rce(s) Supporting Document(s) SARS-CoV-2 (COVID-19) RNA [Presence] in Respiratory specimen by ALEKSANDR with probe detection Not Detected [facility] This lab was ordered by [facility] and reported by [facility]. ID Date Data Source [id number] 02/11/2021 10:28:00 AM EDT [facility] Name Value Range Interpretation Code Description Data Heena rce(s) Supporting Document(s) SARS COVID ANTIGEN NEGATIVE [facility] This lab was ordered by [facility] nd reported by [facility]. ID Date Data Source [id number] 12/01/2020 12:00:00 AM EDT ROLANDO ([facility]) Name Value Range Interpretation Code Description Data Heena rce(s) Supporting Document(s) SARS-CoV-2 (COVID-19) RNA [Presence] in Respiratory specimen by ALEKSANDR with probe detection negative negative Sars-cov-2 R[facility]ANDO ([facility]) ID Date Data Source [id number] 12/01/2020 12:00:00 AM EDT R[facility]O ([facility]) Name Value Range Interpretation Code Description Data Heena rce(s) Supporting Document(s) ID Date Data Source [id number] 12/01/2020 12:00:00 AM EDT KEELER ([facility]) Name Value Range Interpretation Code Description Data Heena rce(s) Supporting Document(s) SARS-CoV-2 (COVID-19) RNA [Presence] in Respiratory specimen by ALEKSANDR with probe detection negative negative Sars-cov-2 ROLANDO ([facility]) ID Date Data Source [id number] 12/01/2020 12:00:00 AM EDT ROLANDO ([facility]) Name Value Range Interpretation Code Description Data Heena rce(s) Supporting Document(s) ID Date Data Source [id number] 12/01/2020 12:00:00 AM EDT KEELER ([facility]) Name Value Range Interpretation Code Description Data Heena rce(s) Supporting Document(s) SARS-CoV-2 (COVID-19) RNA [Presence] in Respiratory specimen by ALEKSANDR with probe detection negative negative Sars-cov-2 ROLANDO ([facility]) ID Date Data Source [id number] 12/01/2020 12:00:00 AM EDT KEELER ([facility]) Name Value Range Interpretation Code Description Data Heena rce(s) Supporting Document(s) ID Date Data Source [id number] 12/01/2020 12:00:00 AM EDT KEELER ([facility]) Name Value Range Interpretation Code Description Data Heena rce(s) Supporting Document(s) ID Date Data Source [id number] 12/01/2020 12:00:00 AM EDT KEELER ([facility]) Name Value Range Interpretation Code Description Data Heena rce(s) Supporting Document(s) SARS-CoV-2 (COVID-19) RNA [Presence] in Respiratory specimen by ALEKSANDR with probe detection negative negative Sars-cov-2 ROLANDO ([facility]) ID Date Data Source [id number] 12/01/2020 12:00:00 AM EDT ROLANDO ([facility]) Name Value Range Interpretation Code Description Data Heena rce(s) Supporting Document(s) ID Date Data Source [id number] 12/01/2020 12:00:00 AM EDT ROLANDO ([facility]) Name Value Range Interpretation Code Description Data Heena rce(s) Supporting Document(s) SARS-CoV-2 (COVID-19) RNA [Presence] in Respiratory specimen by ALEKSANDR with probe detection negative negative Sars-cov-2 KEELER ([facility]) ID Date Data Source [id number] 12/01/2020 12:00:00 AM EDT ROLANDO ([facility]) Name Value Range Interpretation Code Description Data Heena rce(s) Supporting Document(s) ID Date Data Source [id number] 12/01/2020 12:00:00 AM EDT ROLANDO ([facility]) Name Value Range Interpretation Code Description Data Heena rce(s) Supporting Document(s) SARS-CoV-2 (COVID-19) RNA [Presence] in Respiratory specimen by ALEKSANDR with probe detection negative negative Sars-cov-2 KEELER ([facility]) ID Date Data Source [id number] 12/01/2020 12:00:00 AM EDT ROLANDO ([facility]) Name Value Range Interpretation Code Description Data Heena rce(s) Supporting Document(s) ID Date Data Source [id number] 12/01/2020 12:00:00 AM EDT [facility] Name Value Range Interpretation Code Description Data Heena rce(s) Supporting Document(s) SARS-CoV-2 NEGATIVE [facility] This lab was ordered by [facility] and reported by [facility]. ID Date Data Source [id number] 12/01/2020 12:00:00 AM EDT ROLANDO ([facility]) Name Value Range Interpretation Code Description Data Heena rce(s) Supporting Document(s) SARS-CoV-2 (COVID-19) RNA [Presence] in Respiratory specimen by ALEKSANDR with probe detection negative negative Sars-cov-2 R[facility]O ([facility]) ID Date Data Source [id number] 09/10/2020 08:56:00 AM EST MEDENT ([facility]) Name Value Range Interpretation Code Description Data Heena rce(s) Supporting Document(s) Glucose [Mass/volume] in Serum or Plasma 140 MEDENT ([facility]) ID Date Data Source [id number] 09/08/2020 12:00:00 AM EST ROLANDO ([facility]) Name Value Range Interpretation Code Description Data Heena rce(s) Supporting Document(s) SARS-CoV-2 (COVID-19) RNA [Presence] in Respiratory specimen by ALEKSANDR with probe detection negative negative Sars-cov-2 [facility]O ([facility]) ID Date Data Source [id number] 09/08/2020 12:00:00 AM EST ROLANDO ([facility]) Name Value Range Interpretation Code Description Data Heena rce(s) Supporting Document(s) ID Date Data Source [id number] 09/08/2020 12:00:00 AM EST ROLANDO ([facility]) Name Value Range Interpretation Code Description Data Heena rce(s) Supporting Document(s) SARS-CoV-2 (COVID-19) RNA [Presence] in Respiratory specimen by ALEKSANDR with probe detection negative negative Sars-cov-2 [facility]O ([facility]) ID Date Data Source [id number] 09/08/2020 12:00:00 AM EST R[facility]ANDO ([facility]) Name Value Range Interpretation Code Description Data Henea rce(s) Supporting Document(s) ID Date Data Source [id number] 09/08/2020 12:00:00 AM EST ROLANDO ([facility]) Name Value Range Interpretation Code Description Data Heena rce(s) Supporting Document(s) SARS-CoV-2 (COVID-19) RNA [Presence] in Respiratory specimen by ALEKSANDR with probe detection negative negative Sars-cov-2 [facility]O ([facility]) ID Date Data Source [id number] 09/08/2020 12:00:00 AM EST ROLANDO ([facility]) Name Value Range Interpretation Code Description Data Henea rce(s) Supporting Document(s) ID Date Data Source [id number] 09/08/2020 12:00:00 AM EST ROLANDO ([facility]) Name Value Range Interpretation Code Description Data Heena rce(s) Supporting Document(s) SARS-CoV-2 (COVID-19) RNA [Presence] in Respiratory specimen by ALEKSANDR with probe detection negative negative Sars-cov-2 [facility] ([facility]) ID Date Data Source [id number] 09/08/2020 12:00:00 AM EST ROLANDO ([facility]) Name Value Range Interpretation Code Description Data Heena rce(s) Supporting Document(s) ID Date Data Source [id number] 09/08/2020 12:00:00 AM EST ROLANDO ([facility]) Name Value Range Interpretation Code Description Data Heena rce(s) Supporting Document(s) SARS-CoV-2 (COVID-19) RNA [Presence] in Respiratory specimen by ALEKSANDR with probe detection negative negative Sars-cov-2 [facility] ([facility]) ID Date Data Source [id number] 09/08/2020 12:00:00 AM EST [facility]ANDO ([facility]) Name Value Range Interpretation Code Description Data Heena rce(s) Supporting Document(s) ID Date Data Source [id number] 09/08/2020 12:00:00 AM EST ROLANDO ([facility]) Name Value Range Interpretation Code Description Data Heena rce(s) Supporting Document(s) SARS-CoV-2 (COVID-19) RNA [Presence] in Respiratory specimen by ALEKSANDR with probe detection negative negative Sars-cov-2 [facility] ([facility]) ID Date Data Source [id number] 09/08/2020 12:00:00 AM EST ROLANDO ([facility]) Name Value Range Interpretation Code Description Data Heena rce(s) Supporting Document(s) ID Date Data Source [id number] 09/08/2020 12:00:00 AM EST ROLANDO ([facility]) Name Value Range Interpretation Code Description Data Heena rce(s) Supporting Document(s) SARS-CoV-2 (COVID-19) RNA [Presence] in Respiratory specimen by ALEKSANDR with probe detection negative negative Sars-cov-2 [facility] ([facility]) ID Date Data Source [id number] 09/08/2020 12:00:00 AM EST ROLANDO ([facility]) Name Value Range Interpretation Code Description Data Heena rce(s) Supporting Document(s) ID Date Data Source [id number] 09/08/2020 12:00:00 AM EST [facility] Name Value Range Interpretation Code Description Data Heena rce(s) Supporting Document(s) SARS-CoV-2 NEGATIVE [facility] This lab was ordered by [facility] and reported by [facility]. ID Date Data Source [id number] 09/08/2020 12:00:00 AM EST ROLANDO ([facility]) Name Value Range Interpretation Code Description Data Heena rce(s) Supporting Document(s) SARS-CoV-2 (COVID-19) RNA [Presence] in Respiratory specimen by ALEKSANDR with probe detection negative negative Sars-cov-2 [facility] ([facility]) ID Date Data Source [id number] 09/08/2020 12:00:00 AM EST ROLANDO ([facility]) Name Value Range Interpretation Code Description Data Heena rce(s) Supporting Document(s) ID Date Data Source [id number] 09/08/2020 12:00:00 AM EST R[facility]O ([facility]) Name Value Range Interpretation Code Description Data Heena rce(s) Supporting Document(s) SARS-CoV-2 (COVID-19) RNA [Presence] in Respiratory specimen by ALEKSANDR with probe detection negative negative Sars-cov-2 [facility] ([facility]) ID Date Data Source [id number] 09/08/2020 12:00:00 AM EST [facility]O ([facility]) Name Value Range Interpretation Code Description Data Heena rce(s) Supporting Document(s) ID Date Data Source [id number] 09/08/2020 12:00:00 AM EST [facility]O ([facility]) Name Value Range Interpretation Code Description Data Heena rce(s) Supporting Document(s) SARS-CoV-2 (COVID-19) RNA [Presence] in Respiratory specimen by ALEKSANDR with probe detection negative negative Sars-cov-2 [facility] ([facility]) ID Date Data Source [id number] 09/08/2020 12:00:00 AM EST [facility] ([facility]) Name Value Range Interpretation Code Description Data Heena rce(s) Supporting Document(s) ID Date Data Source [id number] 09/08/2020 12:00:00 AM EST [facility] ([facility]) Name Value Range Interpretation Code Description Data Heena rce(s) Supporting Document(s) SARS-CoV-2 (COVID-19) RNA [Presence] in Respiratory specimen by ALEKSANDR with probe detection negative negative Sars-cov-2 [facility] ([facility]) ID Date Data Source [id number] 09/08/2020 12:00:00 AM EST [facility]O ([facility]) Name Value Range Interpretation Code Description Data Heena rce(s) Supporting Document(s) ID Date Data Source [id number] 08/13/2020 12:00:00 AM EST [facility] ([facility]) Name Value Range Interpretation Code Description Data Heena rce(s) Supporting Document(s) SARS-CoV-2 (COVID-19) RNA [Presence] in Respiratory specimen by ALEKSANDR with probe detection negative negative Sars-cov-2 [facility] ([facility]) ID Date Data Source [id number] 08/13/2020 12:00:00 AM EST [facility] ([facility]) Name Value Range Interpretation Code Description Data Heena rce(s) Supporting Document(s) ID Date Data Source [id number] 08/13/2020 12:00:00 AM EST [facility] ([facility]) Name Value Range Interpretation Code Description Data Heena rce(s) Supporting Document(s) SARS-CoV-2 (COVID-19) RNA [Presence] in Respiratory specimen by ALEKASNDR with probe detection negative negative Sars-cov-2 [facility] ([facility]) ID Date Data Source [id number] 08/13/2020 12:00:00 AM EST [facility] ([facility]) Name Value Range Interpretation Code Description Data Heena rce(s) Supporting Document(s) ID Date Data Source [id number] 08/13/2020 12:00:00 AM EST [facility] ([facility]) Name Value Range Interpretation Code Description Data Heena rce(s) Supporting Document(s) SARS-CoV-2 (COVID-19) RNA [Presence] in Respiratory specimen by ALEKSANDR with probe detection negative negative Sars-cov-2 [facility] ([facility]) ID Date Data Source [id number] 08/13/2020 12:00:00 AM EST [facility] ([facility]) Name Value Range Interpretation Code Description Data Heena rce(s) Supporting Document(s) ID Date Data Source [id number] 08/13/2020 12:00:00 AM EST [facility] ([facility]) Name Value Range Interpretation Code Description Data Heena rce(s) Supporting Document(s) SARS-CoV-2 (COVID-19) RNA [Presence] in Respiratory specimen by ALEKSANDR with probe detection negative negative Sars-cov-2 [facility] ([facility]) ID Date Data Source [id number] 08/13/2020 12:00:00 AM EST [facility] ([facility]) Name Value Range Interpretation Code Description Data Heena rce(s) Supporting Document(s) ID Date Data Source [id number] 08/13/2020 12:00:00 AM EST [facility] ([facility]) Name Value Range Interpretation Code Description Data Heena rce(s) Supporting Document(s) SARS-CoV-2 (COVID-19) RNA [Presence] in Respiratory specimen by ALEKSANDR with probe detection negative negative Sars-cov-2 [facility] ([facility]) ID Date Data Source [id number] 08/13/2020 12:00:00 AM EST [facility] ([facility]) Name Value Range Interpretation Code Description Data Heena rce(s) Supporting Document(s) ID Date Data Source [id number] 08/13/2020 12:00:00 AM EST [facility] ([facility]) Name Value Range Interpretation Code Description Data Heena rce(s) Supporting Document(s) SARS-CoV-2 (COVID-19) RNA [Presence] in Respiratory specimen by ALEKSANDR with probe detection negative negative Sars-cov-2 [facility] ([facility]) ID Date Data Source [id number] 08/13/2020 12:00:00 AM EST [facility] ([facility]) Name Value Range Interpretation Code Description Data Heena rce(s) Supporting Document(s) ID Date Data Source [id number] 08/13/2020 12:00:00 AM EST [facility] ([facility]) Name Value Range Interpretation Code Description Data Heena rce(s) Supporting Document(s) SARS-CoV-2 (COVID-19) RNA [Presence] in Respiratory specimen by ALEKSANDR with probe detection negative negative Sars-cov-2 [facility] ([facility]) ID Date Data Source [id number] 08/13/2020 12:00:00 AM EST [facility] ([facility]) Name Value Range Interpretation Code Description Data Heena rce(s) Supporting Document(s) ID Date Data Source [id number] 08/13/2020 12:00:00 AM EST [facility] ([facility]) Name Value Range Interpretation Code Description Data Heena rce(s) Supporting Document(s) SARS-CoV-2 (COVID-19) RNA [Presence] in Respiratory specimen by ALEKSANDR with probe detection negative negative Sars-cov-2 [facility] ([facility]) ID Date Data Source [id number] 08/13/2020 12:00:00 AM EST [facility] ([facility]) Name Value Range Interpretation Code Description Data Heena rce(s) Supporting Document(s) ID Date Data Source [id number] 08/13/2020 12:00:00 AM EST [facility] ([facility]) Name Value Range Interpretation Code Description Data Heena rce(s) Supporting Document(s) SARS-CoV-2 (COVID-19) RNA [Presence] in Respiratory specimen by ALEKSANDR with probe detection negative negative Sars-cov-2 [facility] ([facility]) ID Date Data Source [id number] 08/13/2020 12:00:00 AM EST [facility] ([facility]) Name Value Range Interpretation Code Description Data Heena rce(s) Supporting Document(s) ID Date Data Source [id number] 08/13/2020 12:00:00 AM EST [facility] Name Value Range Interpretation Code Description Data Heena rce(s) Supporting Document(s) SARS-CoV-2 [facility] This lab was ordered by [facility] and reported by [facility]. ID Date Data Source [id number] 08/13/2020 12:00:00 AM EST [facility] ([facility]) Name Value Range Interpretation Code Description Data Heena rce(s) Supporting Document(s) SARS-CoV-2 (COVID-19) RNA [Presence] in Respiratory specimen by ALEKSANDR with probe detection negative negative Sars-cov-2 [facility] ([facility]) ID Date Data Source [id number] 08/13/2020 12:00:00 AM EST [facility] ([facility]) Name Value Range Interpretation Code Description Data Heena rce(s) Supporting Document(s) ID Date Data Source [id number] 08/13/2020 12:00:00 AM EST [facility] ([facility]) Name Value Range Interpretation Code Description Data Heena rce(s) Supporting Document(s) SARS-CoV-2 (COVID-19) RNA [Presence] in Respiratory specimen by ALEKSANDR with probe detection negative negative Sars-cov-2 [facility] ([facility]) ID Date Data Source [id number] 08/13/2020 12:00:00 AM EST [facility] ([facility]) Name Value Range Interpretation Code Description Data Heena rce(s) Supporting Document(s) ID Date Data Source [id number] 08/13/2020 12:00:00 AM EST [facility] ([facility]) Name Value Range Interpretation Code Description Data Heena rce(s) Supporting Document(s) SARS-CoV-2 (COVID-19) RNA [Presence] in Respiratory specimen by ALEKSANDR with probe detection negative negative Sars-cov-2 [facility] ([facility]) ID Date Data Source [id number] 08/13/2020 12:00:00 AM EST [facility] ([facility]) Name Value Range Interpretation Code Description Data Heena rce(s) Supporting Document(s) ID Date Data Source [id number] 08/13/2020 12:00:00 AM EST [facility] ([facility]) Name Value Range Interpretation Code Description Data Heena rce(s) Supporting Document(s) SARS-CoV-2 (COVID-19) RNA [Presence] in Respiratory specimen by ALEKSANDR with probe detection negative negative Sars-cov-2 [facility] ([facility]) ID Date Data Source [id number] 08/13/2020 12:00:00 AM EST [facility] ([facility]) Name Value Range Interpretation Code Description Data Heena rce(s) Supporting Document(s) ID Date Data Source [id number] 06/16/2020 12:00:00 AM EDT [facility] ([facility]) Name Value Range Interpretation Code Description Data Heena rce(s) Supporting Document(s) SARS-CoV-2 (COVID-19) RNA [Presence] in Respiratory specimen by ALEKSANDR with probe detection negative negative Sars-cov-2 [facility] ([facility]) ID Date Data Source [id number] 06/16/2020 12:00:00 AM EDT [facility] ([facility]) Name Value Range Interpretation Code Description Data Heena rce(s) Supporting Document(s) ID Date Data Source [id number] 06/16/2020 12:00:00 AM EDT [facility] ([facility]) Name Value Range Interpretation Code Description Data Heena rce(s) Supporting Document(s) SARS-CoV-2 (COVID-19) RNA [Presence] in Respiratory specimen by ALEKSANDR with probe detection negative negative Sars-cov-2 [facility] ([facility]) ID Date Data Source [id number] 06/16/2020 12:00:00 AM EDT [facility] ([facility]) Name Value Range Interpretation Code Description Data Heena rce(s) Supporting Document(s) ID Date Data Source [id number] 06/16/2020 12:00:00 AM EDT [facility] ([facility]) Name Value Range Interpretation Code Description Data Heena rce(s) Supporting Document(s) SARS-CoV-2 (COVID-19) RNA [Presence] in Respiratory specimen by ALEKSANDR with probe detection negative negative Sars-cov-2 [facility] ([facility]) ID Date Data Source [id number] 06/16/2020 12:00:00 AM EDT [facility] ([facility]) Name Value Range Interpretation Code Description Data Heena rce(s) Supporting Document(s) ID Date Data Source [id number] 06/16/2020 12:00:00 AM EDT [facility] ([facility]) Name Value Range Interpretation Code Description Data Heena rce(s) Supporting Document(s) SARS-CoV-2 (COVID-19) RNA [Presence] in Respiratory specimen by ALEKSANDR with probe detection negative negative Sars-cov-2 [facility] ([facility]) ID Date Data Source [id number] 06/16/2020 12:00:00 AM EDT [facility] ([facility]) Name Value Range Interpretation Code Description Data Heena rce(s) Supporting Document(s) ID Date Data Source [id number] 06/16/2020 12:00:00 AM EDT [facility] ([facility]) Name Value Range Interpretation Code Description Data Heena rce(s) Supporting Document(s) SARS-CoV-2 (COVID-19) RNA [Presence] in Respiratory specimen by ALEKSANDR with probe detection negative negative Sars-cov-2 [facility] ([facility]) ID Date Data Source [id number] 06/16/2020 12:00:00 AM EDT [facility] ([facility]) Name Value Range Interpretation Code Description Data Heena rce(s) Supporting Document(s) ID Date Data Source [id number] 06/16/2020 12:00:00 AM EDT [facility] ([facility]) Name Value Range Interpretation Code Description Data Heena rce(s) Supporting Document(s) SARS-CoV-2 (COVID-19) RNA [Presence] in Respiratory specimen by ALEKSANDR with probe detection negative negative Sars-cov-2 [facility] ([facility]) ID Date Data Source [id number] 06/16/2020 12:00:00 AM EDT [facility] ([facility]) Name Value Range Interpretation Code Description Data Heena rce(s) Supporting Document(s) ID Date Data Source [id number] 06/16/2020 12:00:00 AM EDT [facility] ([facility]) Name Value Range Interpretation Code Description Data Heena rce(s) Supporting Document(s) SARS-CoV-2 (COVID-19) RNA [Presence] in Respiratory specimen by ALEKSANDR with probe detection negative negative Sars-cov-2 [facility] ([facility]) ID Date Data Source [id number] 06/16/2020 12:00:00 AM EDT [facility] ([facility]) Name Value Range Interpretation Code Description Data Heena rce(s) Supporting Document(s) ID Date Data Source [id number] 06/16/2020 12:00:00 AM EDT [facility] ([facility]) Name Value Range Interpretation Code Description Data Heena rce(s) Supporting Document(s) SARS-CoV-2 (COVID-19) RNA [Presence] in Respiratory specimen by ALEKSANDR with probe detection negative negative Sars-cov-2 KEELER ([facility]) ID Date Data Source [id number] 06/16/2020 12:00:00 AM EDT [facility] ([facility]) Name Value Range Interpretation Code Description Data Heena rce(s) Supporting Document(s) ID Date Data Source [id number] 06/16/2020 12:00:00 AM EDT [facility] ([facility]) Name Value Range Interpretation Code Description Data Heena rce(s) Supporting Document(s) SARS-CoV-2 (COVID-19) RNA [Presence] in Respiratory specimen by ALEKSANDR with probe detection negative negative Sars-cov-2 [facility] ([facility]) ID Date Data Source [id number] 06/16/2020 12:00:00 AM EDT [facility] ([facility]) Name Value Range Interpretation Code Description Data Heena rce(s) Supporting Document(s) ID Date Data Source [id number] 06/16/2020 12:00:00 AM EDT [facility] ([facility]) Name Value Range Interpretation Code Description Data Heena rce(s) Supporting Document(s) SARS-CoV-2 (COVID-19) RNA [Presence] in Respiratory specimen by ALEKSANDR with probe detection negative negative Sars-cov-2 [facility] ([facility]) ID Date Data Source [id number] 06/16/2020 12:00:00 AM EDT [facility] ([facility]) Name Value Range Interpretation Code Description Data Heena rce(s) Supporting Document(s) ID Date Data Source [id number] 06/16/2020 12:00:00 AM EDT [facility] ([facility]) Name Value Range Interpretation Code Description Data Heena rce(s) Supporting Document(s) SARS-CoV-2 (COVID-19) RNA [Presence] in Respiratory specimen by ALEKSANDR with probe detection negative negative Sars-cov-2 [facility] ([facility]) ID Date Data Source [id number] 06/16/2020 12:00:00 AM EDT [facility] ([facility]) Name Value Range Interpretation Code Description Data Heena rce(s) Supporting Document(s) ID Date Data Source [id number] 06/16/2020 12:00:00 AM EDT [facility] ([facility]) Name Value Range Interpretation Code Description Data Heena rce(s) Supporting Document(s) SARS coronavirus 2 RNA [Presence] in Res piratory specimen by ALEKSANDR with probe detection negative negative Sars-cov-2 [facility] ([facility]) ID Date Data Source [id number] 06/16/2020 12:00:00 AM EDT [facility] ([facility]) Name Value Range Interpretation Code Description Data Heena rce(s) Supporting Document(s) ID Date Data Source [id number] 06/16/2020 12:00:00 AM EDT [facility] ([facility]) Name Value Range Interpretation Code Description Data Heena rce(s) Supporting Document(s) SARS coronavirus 2 RNA [Presence] in Res piratory specimen by ALEKSANDR with probe detection negative negative Sars-cov-2 [facility] ([facility]) ID Date Data Source [id number] 06/16/2020 12:00:00 AM EDT [facility] ([facility]) Name Value Range Interpretation Code Description Data Heena rce(s) Supporting Document(s) ID Date Data Source [id number] 06/16/2020 12:00:00 AM EDT [facility] Name Value Range Interpretation Code Description Data Heena rce(s) Supporting Document(s) SARS-CoV-2 [facility] This lab was ordered by [facility] and reported by [facility]. ID Date Data Source [id number] 06/16/2020 12:00:00 AM EDT [facility] ([facility]) Name Value Range Interpretation Code Description Data Heena rce(s) Supporting Document(s) SARS-CoV-2 (COVID-19) RNA [Presence] in Respiratory specimen by ALEKSANDR with probe detection negative negative Sars-cov-2 [facility] ([facility]) ID Date Data Source [id number] 06/16/2020 12:00:00 AM EDT [facility] ([facility]) Name Value Range Interpretation Code Description Data Heena rce(s) Supporting Document(s) ID Date Data Source [id number] 06/16/2020 12:00:00 AM EDT [facility] ([facility]) Name Value Range Interpretation Code Description Data Heena rce(s) Supporting Document(s) SARS-CoV-2 (COVID-19) RNA [Presence] in Respiratory specimen by ALEKSANDR with probe detection negative negative Sars-cov-2 [facility] ([facility]) ID Date Data Source [id number] 06/16/2020 12:00:00 AM EDT [facility] ([facility]) Name Value Range Interpretation Code Description Data Heena rce(s) Supporting Document(s) ID Date Data Source [id number] 06/16/2020 12:00:00 AM EDT [facility] ([facility]) Name Value Range Interpretation Code Description Data Heena rce(s) Supporting Document(s) SARS-CoV-2 (COVID-19) RNA [Presence] in Respiratory specimen by ALEKSANDR with probe detection negative negative Sars-cov-2 [facility] ([facility]) ID Date Data Source [id number] 06/16/2020 12:00:00 AM EDT [facility] ([facility]) Name Value Range Interpretation Code Description Data Heena rce(s) Supporting Document(s) ID Date Data Source [id number] 06/16/2020 12:00:00 AM EDT [facility] ([facility]) Name Value Range Interpretation Code Description Data Heena rce(s) Supporting Document(s) SARS-CoV-2 (COVID-19) RNA [Presence] in Respiratory specimen by ALEKSANDR with probe detection negative negative Sars-cov-2 [facility] ([facility]) ID Date Data Source [id number] 06/16/2020 12:00:00 AM EDT [facility] ([facility]) Name Value Range Interpretation Code Description Data Heena rce(s) Supporting Document(s) ID Date Data Source [id number] 06/02/2020 12:00:00 AM EDT [facility] ([facility]) Name Value Range Interpretation Code Description Data Heena rce(s) Supporting Document(s) ID Date Data Source [id number] 06/02/2020 12:00:00 AM EDT [facility] ([facility]) Name Value Range Interpretation Code Description Data Heena rce(s) Supporting Document(s) ID Date Data Source [id number] 06/02/2020 12:00:00 AM EDT [facility] ([facility]) Name Value Range Interpretation Code Description Data Heena rce(s) Supporting Document(s) ID Date Data Source [id number] 06/02/2020 12:00:00 AM EDT [facility] ([facility] [place] [facility]) Name Value Range Interpretation Code Description Data Heena rce(s) Supporting Document(s) ID Date Data Source [id number] 06/02/2020 12:00:00 AM EDT [facility] ([facility]) Name Value Range Interpretation Code Description Data Heena rce(s) Supporting Document(s) ID Date Data Source [id number] 06/02/2020 12:00:00 AM EDT [facility] ([facility] [place] [facility]) Name Value Range Interpretation Code Description Data Heena rce(s) Supporting Document(s) ID Date Data Source [id number] 06/02/2020 12:00:00 AM EDT [facility] ([facility] [place] [facility]) Name Value Range Interpretation Code Description Data Heena rce(s) Supporting Document(s) ID Date Data Source [id number] 06/02/2020 12:00:00 AM EDT [facility] ([facility]) Name Value Range Interpretation Code Description Data Heena rce(s) Supporting Document(s) ID Date Data Source [id number] 06/02/2020 12:00:00 AM EDT [facility] ([facility]) Name Value Range Interpretation Code Description Data Heena rce(s) Supporting Document(s) ID Date Data Source [id number] 06/02/2020 12:00:00 AM EDT [facility] ([facility]) Name Value Range Interpretation Code Description Data Heena rce(s) Supporting Document(s) ID Date Data Source [id number] 06/02/2020 12:00:00 AM EDT [facility] ([facility]) Name Value Range Interpretation Code Description Data Heena rce(s) Supporting Document(s) ID Date Data Source [id number] 06/02/2020 12:00:00 AM EDT [facility] ([facility]) Name Value Range Interpretation Code Description Data Heena rce(s) Supporting Document(s) ID Date Data Source [id number] 06/02/2020 12:00:00 AM EDT [facility] ([facility]) Name Value Range Interpretation Code Description Data Heena rce(s) Supporting Document(s) ID Date Data Source [id number] 06/02/2020 12:00:00 AM EDT [facility] ([facility]) Name Value Range Interpretation Code Description Data Heena rce(s) Supporting Document(s) ID Date Data Source [id number] 06/02/2020 12:00:00 AM EDT [facility] Name Value Range Interpretation Code Description Data Heena rce(s) Supporting Document(s) SARS-CoV-2 [facility] This lab was ordered by [facility] and reported by [facility]. ID Date Data Source [id number] 06/02/2020 12:00:00 AM EDT [facility] ([facility]) Name Value Range Interpretation Code Description Data Heena rce(s) Supporting Document(s) ID Date Data Source [id number] 06/02/2020 12:00:00 AM EDT [facility] ([facility]) Name Value Range Interpretation Code Description Data Heena rce(s) Supporting Document(s) ID Date Data Source [id number] 06/02/2020 12:00:00 AM EDT [facility] ([facility]) Name Value Range Interpretation Code Description Data Heena rce(s) Supporting Document(s) ID Date Data Source [id number] 06/02/2020 12:00:00 AM EDT [facility] ([facility]) Name Value Range Interpretation Code Description Data Heena rce(s) Supporting Document(s) ID Date Data Source [id number] 06/02/2020 12:00:00 AM EDT [facility] ([facility]) Name Value Range Interpretation Code Description Data Heena rce(s) Supporting Document(s) Procedure Social History Code Duration Value Status Description Data Source(s ) Smoking 01/15/2021 12:00:00 AM EDT Patient has never smoked co mpleted Patient has never smoked MEDENT ([facility]) Smoking 01/08/2021 12:00:00 AM EDT Never Smoker completed Never S moker eCW1 ([facility]) Smoking 01/08/2021 12:00:00 AM EDT Never Smoker completed Never S moker eCW1 ([facility]) Smoking 01/08/2021 12:00:00 AM EDT Never Smoker completed Never S moker eCW1 ([facility]) Smoking 09/10/2020 12:00:00 AM EST Patient has never smoked co mpleted Patient has never smoked MEDENT ([facility]) Vital Signs ID Date Data Source [id number] Name Value Range Interpretation Code Description Data Source(s) Diastolic blood pressure 74 mm[Hg] 74 mm[Hg] [facility] ([facility]) Body height 71 [in_i] 71 [in_i] [facility] ([facility]) Systolic blood pressure 128 mm[Hg] 128 mm[Hg] A THENA ([facility]) Systolic blood pressure 131 mm[Hg] 131 mm[Hg] A THENA ([facility]) Diastolic blood pressure 74 mm[Hg] 74 mm[Hg] [facility] ([facility]) Body height 71 [in_i] 71 [in_i] [facility] ([facility]) Diastolic blood pressure 74 mm[Hg] 74 mm[Hg] [facility] ([facility]) Body height 71 [in_i] 71 [in_i] [facility] ([facility]) Systolic blood pressure 131 mm[Hg] 131 mm[Hg] A THENA ([facility]) Systolic blood pressure 146 mm[Hg] 146 mm[Hg] M EDENT ([facility]) Diastolic blood pressure 84 mm[Hg] 84 mm[Hg] MEDENT ([facility] ) Heart rate 99 /min 99 /min [facility] ([facility] ) Body temperature 96.4 [degF] 96.4 [degF] MEDENT ([facility] ) Body height 69.25 [in_i] 69.25 [in_i] MEDENT ([facility] ) 5'9.25" Body weight 227.50 [lb_av] 227.50 [lb_av] MEDEN T ([facility] ) Body mass index (BMI) [Ratio] 33.4 kg/m2 33.4 k g/m2 MEDENT ([facility] ) Oxygen saturation in Arterial blood by Pulse oximetry 99 % 99 % MED[facility] ([facility] ) Diastolic blood pressure 74 mm[Hg] 74 mm[Hg] ROLNADO ([facility]) Body height 71 [in_i] 71 [in_i] [facility]O ([facility]) Systolic blood pressure 127 mm[Hg] 127 mm[Hg] A THENA ([facility]) Diastolic blood pressure 74 mm[Hg] 74 mm[Hg] [facility]O ([facility]) Body height 71 [in_i] 71 [in_i] [facility] ([facility]) Systolic blood pressure 127 mm[Hg] 127 mm[Hg] A THENA ([facility]) Diastolic blood pressure 74 mm[Hg] 74 mm[Hg] [facility]OLANDO ([facility]) Body height 71 [in_i] 71 [in_i] [facility]O ([facility]) Systolic blood pressure 127 mm[Hg] 127 mm[Hg] A THENA ([facility]) Systolic blood pressure 150 mm[Hg] 150 mm[Hg] M EDENT ([facility]) Diastolic blood pressure 100 mm[Hg] 100 mm[Hg] MEDENT ([facility]) Heart rate 104 /min 104 /min MEDENT ([facility]) Respiratory rate 20 /min 20 /min MEDENT ( [facility]) Body height 71 [in_i] 71 [in_i] ROLANDO ([facility]) Diastolic blood pressure 90 mm[Hg] 90 mm[Hg] ROLANDO ([facility]) Systolic blood pressure 158 mm[Hg] 158 mm[Hg] A THENA ([facility]) Body height 71 [in_i] 71 [in_i] ROLANDO ([facility]) Systolic blood pressure 158 mm[Hg] 158 mm[Hg] A THENA ([facility]) Diastolic blood pressure 90 mm[Hg] 90 mm[Hg] ROLANDO ([facility]) Diastolic blood pressure 90 mm[Hg] 90 mm[Hg] ROLANDO ([facility]) Body height 71 [in_i] 71 [in_i] ROLANDO ([facility]) Systolic blood pressure 158 mm[Hg] 158 mm[Hg] A THENA ([facility]) Diastolic blood pressure 90 mm[Hg] 90 mm[Hg] ROLANDO ([facility]) Body height 71 [in_i] 71 [in_i] ROLANDO ([facility]) Systolic blood pressure 158 mm[Hg] 158 mm[Hg] A THENA ([facility]) Diastolic blood pressure 90 mm[Hg] 90 mm[Hg] ROLANDO ([facility]) Body height 71 [in_i] 71 [in_i] ROLANDO ([facility]) Systolic blood pressure 158 mm[Hg] 158 mm[Hg] A THENA ([facility]) Systolic blood pressure 152 mm[Hg] 152 mm[Hg] M EDENT ([facility]) Diastolic blood pressure 79 mm[Hg] 79 mm[Hg] MEDENT ([facility], [facility]) Heart rate 116 /min 116 /min MEDENT ([facility], [facility]) Respiratory rate 16 /min 16 /min MEDENT ( [facility]) Oxygen saturation in Arterial blood by Pulse oximetry 95 % 95 % MEDENT ([facility]) Body temperature 98.9 [degF] 98.9 [degF] MEDENT ([facility]) Body weight 220.00 [lb_av] 220.00 [lb_av] MEDEN T ([facility], [facility]) Body height 70 [in_i] 70 [in_i] MEDENT ([facility]) 5'10" Body mass index (BMI) [Ratio] 31.6 kg/m2 31.6 k g/m2 MEDENT ([facility]) Body weight 221.8 [lb_av] 221.8 [lb_av] eCW1 ([facility]) Body height 71 [in_i] 71 [in_i] eCW1 ([facility]) Body mass index (BMI) [Ratio] 30.93 kg/m2 30.93 kg/m2 eCW1 ([facility]) Heart rate 119 /min 119 /min eCW1 ([facility]) Respiratory rate 18 /min 18 /min eCW1 ([facility]) Body temperature 97.2 [degF] 97.2 [degF] eCW1 ( [facility]) Systolic blood pressure 134 mm[Hg] 134 mm[Hg] e CW1 ([facility]) Diastolic blood pressure 76 mm[Hg] 76 mm[Hg] eCW1 ([facility]) Diastolic blood pressure 68 mm[Hg] 68 mm[Hg] ROLANDO ([facility]) Body height 71 [in_i] 71 [in_i] ROLANDO ([facility]) Systolic blood pressure 134 mm[Hg] 134 mm[Hg] A THENA ([facility]) Diastolic blood pressure 68 mm[Hg] 68 mm[Hg] ROLANDO ([facility]) Systolic blood pressure 134 mm[Hg] 134 mm[Hg] A THENA ([facility]) Body height 71 [in_i] 71 [in_i] ROLANDO ([facility]) Diastolic blood pressure 68 mm[Hg] 68 mm[Hg] ROLANDO ([facility]) Body height 71 [in_i] 71 [in_i] ROLANDO ([facility]) Systolic blood pressure 134 mm[Hg] 134 mm[Hg] A THENA ([facility]) Diastolic blood pressure 68 mm[Hg] 68 mm[Hg] ROLANDO ([facility]) Body height 71 [in_i] 71 [in_i] ROLANDO ([facility]) Systolic blood pressure 134 mm[Hg] 134 mm[Hg] A THENA ([facility]) Diastolic blood pressure 68 mm[Hg] 68 mm[Hg] ROLANDO ([facility]) Body height 71 [in_i] 71 [in_i] ROLANDO ([facility]) Systolic blood pressure 134 mm[Hg] 134 mm[Hg] A THENA ([facility]) Diastolic blood pressure 68 mm[Hg] 68 mm[Hg] ROLANDO ([facility]) Body height 71 [in_i] 71 [in_i] ROLANDO ([facility] [place] [facility]) Systolic blood pressure 134 mm[Hg] 134 mm[Hg] A THENA ([facility]) Body weight 216.25 [lb_av] 216.25 [lb_av] MEDEN T ([facility] ) Body mass index (BMI) [Ratio] 31.7 kg/m2 31.7 k g/m2 MEDENT ([facility] ) Oxygen saturation in Arterial blood by Pulse oximetry 97 % 97 % MEDENT ([facility] ) Systolic blood pressure 142 mm[Hg] 142 mm[Hg] M EDENT ([facility] ) Diastolic blood pressure 80 mm[Hg] 80 mm[Hg] MEDENT ([facility] ) Heart rate 95 /min 95 /min MEDENT ([facility] ) Body temperature 96.4 [degF] 96.4 [degF] MEDENT ([facility] ) Body height 69.25 [in_i] 69.25 [in_i] MEDENT ([facility] ) 5'9.25" Diastolic blood pressure 74 mm[Hg] 74 mm[Hg] ROLANDO ([facility]) Body height 71 [in_i] 71 [in_i] ROLANDO ([facility]) Systolic blood pressure 147 mm[Hg] 147 mm[Hg] A THENA ([facility]) Diastolic blood pressure 74 mm[Hg] 74 mm[Hg] ROLANDO ([facility]) Body height 71 [in_i] 71 [in_i] ROLANDO ([facility]) Systolic blood pressure 147 mm[Hg] 147 mm[Hg] A THENA ([facility]) Diastolic blood pressure 74 mm[Hg] 74 mm[Hg] ROLANDO ([facility]) Body height 71 [in_i] 71 [in_i] ROLANDO ([facility]) Systolic blood pressure 147 mm[Hg] 147 mm[Hg] A THENA ([facility]) Diastolic blood pressure 74 mm[Hg] 74 mm[Hg] ROLANDO ([facility]) Body height 71 [in_i] 71 [in_i] ROLANDO ([facility]) Systolic blood pressure 147 mm[Hg] 147 mm[Hg] A THENA ([facility]) Diastolic blood pressure 74 mm[Hg] 74 mm[Hg] ROLANDO ([facility]) Body height 71 [in_i] 71 [in_i] ROLANDO ([facility]) Systolic blood pressure 147 mm[Hg] 147 mm[Hg] A THENA ([facility]) Diastolic blood pressure 74 mm[Hg] 74 mm[Hg] ROLANDO ([facility]) Body height 71 [in_i] 71 [in_i] ROLANDO ([facility]) Systolic blood pressure 147 mm[Hg] 147 mm[Hg] A THENA ([facility]) Diastolic blood pressure 74 mm[Hg] 74 mm[Hg] ROLANDO ([facility]) Body height 71 [in_i] 71 [in_i] ROLANDO ([facility]) Systolic blood pressure 147 mm[Hg] 147 mm[Hg] A THENA ([facility]) Diastolic blood pressure 74 mm[Hg] 74 mm[Hg] ROLANDO ([facility]) Body height 71 [in_i] 71 [in_i] ROLANDO ([facility]) Systolic blood pressure 147 mm[Hg] 147 mm[Hg] A THENA ([facility]) Diastolic blood pressure 74 mm[Hg] 74 mm[Hg] ROLANDO ([facility]) Body height 71 [in_i] 71 [in_i] ROLANDO ([facility]) Systolic blood pressure 147 mm[Hg] 147 mm[Hg] A THENA ([facility]) Diastolic blood pressure 78 mm[Hg] 78 mm[Hg] ROLANDO ([facility]) Body height 71 [in_i] 71 [in_i] ROLANDO ([facility]) Systolic blood pressure 162 mm[Hg] 162 mm[Hg] A THENA ([facility]) Diastolic blood pressure 78 mm[Hg] 78 mm[Hg] ROLANDO ([facility]) Body height 71 [in_i] 71 [in_i] ROLANDO ([facility]) Systolic blood pressure 162 mm[Hg] 162 mm[Hg] A THENA ([facility]) Diastolic blood pressure 78 mm[Hg] 78 mm[Hg] ROLANDO ([facility]) Body height 71 [in_i] 71 [in_i] ROLANDO ([facility]) Systolic blood pressure 162 mm[Hg] 162 mm[Hg] A THENA ([facility]) Diastolic blood pressure 78 mm[Hg] 78 mm[Hg] ROLANDO ([facility]) Body height 71 [in_i] 71 [in_i] ROLANDO ([facility]) Systolic blood pressure 162 mm[Hg] 162 mm[Hg] A THENA ([facility]) Diastolic blood pressure 78 mm[Hg] 78 mm[Hg] ROLANDO ([facility]) Body height 71 [in_i] 71 [in_i] ROLANDO ([facility]) Systolic blood pressure 162 mm[Hg] 162 mm[Hg] A THENA ([facility]) Diastolic blood pressure 78 mm[Hg] 78 mm[Hg] ROLANDO ([facility]) Body height 71 [in_i] 71 [in_i] ROLANDO ([facility]) Systolic blood pressure 162 mm[Hg] 162 mm[Hg] A THENA ([facility]) Diastolic blood pressure 78 mm[Hg] 78 mm[Hg] ROLANDO ([facility]) Body height 71 [in_i] 71 [in_i] ROLANDO ([facility]) Systolic blood pressure 162 mm[Hg] 162 mm[Hg] A THENA ([facility]) Diastolic blood pressure 78 mm[Hg] 78 mm[Hg] ROLANDO ([facility]) Body height 71 [in_i] 71 [in_i] ROLANDO ([facility]) Systolic blood pressure 162 mm[Hg] 162 mm[Hg] A THENA ([facility]) Body height 71 [in_i] 71 [in_i] ROLANDO ([facility]) Diastolic blood pressure 78 mm[Hg] 78 mm[Hg] ROLANDO ([facility]) Systolic blood pressure 162 mm[Hg] 162 mm[Hg] A THENA ([facility]) Diastolic blood pressure 78 mm[Hg] 78 mm[Hg] ROLANDO ([facility]) Body height 71 [in_i] 71 [in_i] ROLANDO ([facility]) Systolic blood pressure 162 mm[Hg] 162 mm[Hg] A THENA ([facility]) Systolic blood pressure 150 mm[Hg] 150 mm[Hg] M EDENT ([facility]) No b/p meds today Diastolic blood pressure 98 mm[Hg] 98 mm[Hg] MEDENT ([facility]) No b/p meds today Heart rate 120 /min 120 /min MEDENT ([facility]) Respiratory rate 18 /min 18 /min MEDENT ( [facility]) Oxygen saturation in Arterial blood by Pulse oximetry 98 % 98 % MEDENT ([facility]) Body temperature 97.1 [degF] 97.1 [degF] MEDENT ([facility]) Body weight 220.00 [lb_av] 220.00 [lb_av] MEDEN T ([facility]) Body height 71 [in_i] 71 [in_i] MEDENT ([facility]) 5'11" Body mass index (BMI) [Ratio] 30.7 kg/m2 30.7 k g/m2 MEDENT ([facility]) Diastolic blood pressure 84 mm[Hg] 84 mm[Hg] ROLANDO ([facility]) Body height 71 [in_i] 71 [in_i] ROLANDO ([facility]) Systolic blood pressure 127 mm[Hg] 127 mm[Hg] A THENA ([facility]) Systolic blood pressure 127 mm[Hg] 127 mm[Hg] A THENA ([facility]) Body height 71 [in_i] 71 [in_i] ROLANDO ([facility]) Diastolic blood pressure 84 mm[Hg] 84 mm[Hg] ROLANDO ([facility]) Diastolic blood pressure 84 mm[Hg] 84 mm[Hg] ROLANDO ([facility]) Diastolic blood pressure 84 mm[Hg] 84 mm[Hg] ROLANDO ([facility]) Body height 71 [in_i] 71 [in_i] ROLANDO ([facility]) Systolic blood pressure 127 mm[Hg] 127 mm[Hg] A THENA ([facility]) Body height 71 [in_i] 71 [in_i] ROLANDO ([facility]) Systolic blood pressure 127 mm[Hg] 127 mm[Hg] A THENA ([facility]) Diastolic blood pressure 84 mm[Hg] 84 mm[Hg] ROLANDO ([facility]) Body height 71 [in_i] 71 [in_i] ROLANDO ([facility]) Systolic blood pressure 127 mm[Hg] 127 mm[Hg] A THENA ([facility]) Diastolic blood pressure 84 mm[Hg] 84 mm[Hg] ROLANDO ([facility]) Body height 71 [in_i] 71 [in_i] ROLANDO ([facility]) Systolic blood pressure 127 mm[Hg] 127 mm[Hg] A THENA ([facility]) Diastolic blood pressure 84 mm[Hg] 84 mm[Hg] ROLANDO ([facility]) Body height 71 [in_i] 71 [in_i] ROLANDO ([facility]) Systolic blood pressure 127 mm[Hg] 127 mm[Hg] A THENA ([facility]) Diastolic blood pressure 84 mm[Hg] 84 mm[Hg] ROLANDO ([facility]) Body height 71 [in_i] 71 [in_i] ROLANDO ([facility]) Systolic blood pressure 127 mm[Hg] 127 mm[Hg] A THENA ([facility]) Diastolic blood pressure 84 mm[Hg] 84 mm[Hg] ROLANDO ([facility]) Body height 71 [in_i] 71 [in_i] ROLANDO ([facility]) Systolic blood pressure 127 mm[Hg] 127 mm[Hg] A THENA ([facility]) Diastolic blood pressure 84 mm[Hg] 84 mm[Hg] ROLANDO ([facility]) Systolic blood pressure 127 mm[Hg] 127 mm[Hg] A THENA ([facility]) Body height 71 [in_i] 71 [in_i] ROLANDO ([facility] [place] [facility]) Diastolic blood pressure 84 mm[Hg] 84 mm[Hg] ROLANDO ([facility] [place] [facility]) Body height 71 [in_i] 71 [in_i] ROLANDO ([facility] [place] [facility]) Systolic blood pressure 127 mm[Hg] 127 mm[Hg] A THENA ([facility]) Systolic blood pressure 126 mm[Hg] 126 mm[Hg] M EDENT ([facility]) Diastolic blood pressure 84 mm[Hg] 84 mm[Hg] MEDENT ([facility]) Heart rate 89 /min 89 /min MEDENT ([facility]) Body temperature 97.2 [degF] 97.2 [degF] MEDENT ([facility]) Body height 69.25 [in_i] 69.25 [in_i] MEDENT ([facility]) 5'9.25" Body weight 217.50 [lb_av] 217.50 [lb_av] MEDEN T ([facility] ) Body mass index (BMI) [Ratio] 31.9 kg/m2 31.9 k g/m2 MEDENT ([facility] ) Oxygen saturation in Arterial blood by Pulse oximetry 98 % 98 % MEDENT ([facility]) Diastolic blood pressure 83 mm[Hg] 83 mm[Hg] ROLANDO ([facility]) Body height 71 [in_i] 71 [in_i] ROLANDO ([facility]) Systolic blood pressure 128 mm[Hg] 128 mm[Hg] A THENA ([facility]) Diastolic blood pressure 83 mm[Hg] 83 mm[Hg] ROLANDO ([facility]) Body height 71 [in_i] 71 [in_i] ROLANDO ([facility]) Systolic blood pressure 128 mm[Hg] 128 mm[Hg] A THENA ([facility]) Diastolic blood pressure 83 mm[Hg] 83 mm[Hg] ROLANDO ([facility]) Body height 71 [in_i] 71 [in_i] ROLANDO ([facility]) Systolic blood pressure 128 mm[Hg] 128 mm[Hg] A THENA ([facility]) Diastolic blood pressure 83 mm[Hg] 83 mm[Hg] ROLANDO ([facility]) Body height 71 [in_i] 71 [in_i] ROLANDO ([facility]) Systolic blood pressure 128 mm[Hg] 128 mm[Hg] A THENA ([facility]) Diastolic blood pressure 83 mm[Hg] 83 mm[Hg] ROLANDO ([facility]) Body height 71 [in_i] 71 [in_i] ROLANDO ([facility]) Systolic blood pressure 128 mm[Hg] 128 mm[Hg] A THENA ([facility]) Diastolic blood pressure 83 mm[Hg] 83 mm[Hg] ROLANDO ([facility]) Body height 71 [in_i] 71 [in_i] ROLANDO ([facility]) Systolic blood pressure 128 mm[Hg] 128 mm[Hg] A THENA ([facility]) Diastolic blood pressure 83 mm[Hg] 83 mm[Hg] ROLANDO ([facility]) Body height 71 [in_i] 71 [in_i] ROLANDO ([facility]) Systolic blood pressure 128 mm[Hg] 128 mm[Hg] A THENA ([facility]) Diastolic blood pressure 83 mm[Hg] 83 mm[Hg] ROLANDO ([facility]) Body height 71 [in_i] 71 [in_i] ROLANDO ([facility]) Diastolic blood pressure 83 mm[Hg] 83 mm[Hg] ROLANDO ([facility]) Systolic blood pressure 128 mm[Hg] 128 mm[Hg] A THENA ([facility]) Body height 71 [in_i] 71 [in_i] ROLANDO ([facility]) Systolic blood pressure 128 mm[Hg] 128 mm[Hg] A THENA ([facility]) Diastolic blood pressure 83 mm[Hg] 83 mm[Hg] ROLANDO ([facility]) Body height 71 [in_i] 71 [in_i] ROLANDO ([facility]) Systolic blood pressure 128 mm[Hg] 128 mm[Hg] A THENA ([facility]) Diastolic blood pressure 83 mm[Hg] 83 mm[Hg] ROLANDO ([facility]) Body height 71 [in_i] 71 [in_i] ROLANDO ([facility]) Systolic blood pressure 128 mm[Hg] 128 mm[Hg] A THENA ([facility]) Diastolic blood pressure 83 mm[Hg] 83 mm[Hg] ROLANDO ([facility]) Body height 71 [in_i] 71 [in_i] ROLANDO ([facility]) Systolic blood pressure 128 mm[Hg] 128 mm[Hg] A THENA ([facility]) Diastolic blood pressure 83 mm[Hg] 83 mm[Hg] ROLANDO ([facility]) Body height 71 [in_i] 71 [in_i] ROLANDO ([facility]) Systolic blood pressure 128 mm[Hg] 128 mm[Hg] A THENA ([facility]) Diastolic blood pressure 83 mm[Hg] 83 mm[Hg] ROLANDO ([facility]) Body height 71 [in_i] 71 [in_i] ROLANDO ([facility]) Systolic blood pressure 128 mm[Hg] 128 mm[Hg] A THENA ([facility]) Body height 71 [in_i] 71 [in_i] ROLANDO ([facility]) Systolic blood pressure 128 mm[Hg] 128 mm[Hg] A THENA ([facility]) Diastolic blood pressure 83 mm[Hg] 83 mm[Hg] ROLANDO ([facility]) Heart rate 96 /min 96 /min MEDENT ([facility]) Respiratory rate 20 /min 20 /min MEDENT ( [facility]) Systolic blood pressure 110 mm[Hg] 110 mm[Hg] M EDENT ([facility]) Diastolic blood pressure 80 mm[Hg] 80 mm[Hg] MEDENT ([facility]) Diastolic blood pressure 74 mm[Hg] 74 mm[Hg] ROLANDO ([facility]) Body height 71 [in_i] 71 [in_i] ROLANDO ([facility]) Systolic blood pressure 119 mm[Hg] 119 mm[Hg] A THENA ([facility]) Diastolic blood pressure 74 mm[Hg] 74 mm[Hg] ROLANDO ([facility]) Body height 71 [in_i] 71 [in_i] ROLANDO ([facility]) Systolic blood pressure 119 mm[Hg] 119 mm[Hg] A THENA ([facility]) Diastolic blood pressure 74 mm[Hg] 74 mm[Hg] ROLANDO ([facility]) Body height 71 [in_i] 71 [in_i] ROLANDO ([facility]) Systolic blood pressure 119 mm[Hg] 119 mm[Hg] A THENA ([facility]) Diastolic blood pressure 74 mm[Hg] 74 mm[Hg] ROLANDO ([facility]) Body height 71 [in_i] 71 [in_i] ROLANDO ([facility]) Systolic blood pressure 119 mm[Hg] 119 mm[Hg] A THENA ([facility]) Body height 71 [in_i] 71 [in_i] ROLANDO ([facility]) Systolic blood pressure 119 mm[Hg] 119 mm[Hg] A THENA ([facility]) Diastolic blood pressure 74 mm[Hg] 74 mm[Hg] ROLANDO ([facility]) Diastolic blood pressure 74 mm[Hg] 74 mm[Hg] ROLANDO ([facility]) Body height 71 [in_i] 71 [in_i] ROLANDO ([facility]) Systolic blood pressure 119 mm[Hg] 119 mm[Hg] A THENA ([facility]) Diastolic blood pressure 74 mm[Hg] 74 mm[Hg] ROLANDO ([facility]) Body height 71 [in_i] 71 [in_i] ROLANDO ([facility]) Systolic blood pressure 119 mm[Hg] 119 mm[Hg] A THENA ([facility]) Diastolic blood pressure 74 mm[Hg] 74 mm[Hg] ROLANDO ([facility]) Body height 71 [in_i] 71 [in_i] ROLANDO ([facility]) Systolic blood pressure 119 mm[Hg] 119 mm[Hg] A THENA ([facility]) Diastolic blood pressure 74 mm[Hg] 74 mm[Hg] ROLANDO ([facility]) Body height 71 [in_i] 71 [in_i] ROLANDO ([facility]) Systolic blood pressure 119 mm[Hg] 119 mm[Hg] A THENA ([facility]) Diastolic blood pressure 74 mm[Hg] 74 mm[Hg] ROLANDO ([facility]) Body height 71 [in_i] 71 [in_i] ROLANDO ([facility]) Systolic blood pressure 119 mm[Hg] 119 mm[Hg] A THENA ([facility]) Diastolic blood pressure 74 mm[Hg] 74 mm[Hg] ROLANDO ([facility]) Body height 71 [in_i] 71 [in_i] ROLANDO ([facility]) Systolic blood pressure 119 mm[Hg] 119 mm[Hg] A THENA ([facility]) Body height 71 [in_i] 71 [in_i] ROLANDO ([facility]) Systolic blood pressure 119 mm[Hg] 119 mm[Hg] A THENA ([facility]) Diastolic blood pressure 74 mm[Hg] 74 mm[Hg] ROLANDO ([facility]) Body height 71 [in_i] 71 [in_i] ROLANDO ([facility]) Systolic blood pressure 119 mm[Hg] 119 mm[Hg] A THENA ([facility]) Diastolic blood pressure 74 mm[Hg] 74 mm[Hg] ROLANDO ([facility]) Diastolic blood pressure 74 mm[Hg] 74 mm[Hg] ROLANDO ([facility]) Body height 71 [in_i] 71 [in_i] ROLANDO ([facility]) Systolic blood pressure 119 mm[Hg] 119 mm[Hg] A THENA ([facility]) Diastolic blood pressure 74 mm[Hg] 74 mm[Hg] ROLANDO ([facility]) Body height 71 [in_i] 71 [in_i] ROLANDO ([facility]) Systolic blood pressure 119 mm[Hg] 119 mm[Hg] A THENA ([facility] [place] [facility]) Diastolic blood pressure 74 mm[Hg] 74 mm[Hg] ROLANDO ([facility]) Body height 71 [in_i] 71 [in_i] ROLANDO ([facility] [place] [facility]) Systolic blood pressure 119 mm[Hg] 119 mm[Hg] A THENA ([facility] [place] [facility]) Systolic blood pressure 170 mm[Hg] 170 mm[Hg] M EDENT ([facility], [facility]) manual Diastolic blood pressure 82 mm[Hg] 82 mm[Hg] MEDENT ([facility], [facility]) manual Systolic blood pressure 172 mm[Hg] 172 mm[Hg] M EDENT ([facility], [facility]) Diastolic blood pressure 93 mm[Hg] 93 mm[Hg] MEDENT ([facility]) Heart rate 103 /min 103 /min MEDENT ([facility], [facility]) Oxygen saturation in Arterial blood by Pulse oximetry 98 % 98 % MEDENT ([facility]) Body temperature 98.1 [degF] 98.1 [degF] MEDENT ([facility], [facility]) Body weight 220.00 [lb_av] 220.00 [lb_av] MEDEN T ([facility], [facility]) Body height 71 [in_i] 71 [in_i] MEDENT ([facility], [facility]) 5'11" Body mass index (BMI) [Ratio] 30.7 kg/m2 30.7 k g/m2 MEDENT ([facility]) Patient Treatment Plan of Care Planned Activity Planned Date Details Description Data Source (s) Acetaminophen 300 MG / Codeine Phosphate 30 MG Oral Ta blet 04/03/2019 12:00:00 AM EDT ROLANDO ([facility]) Acetaminophen 300 MG / Codeine Phosphate 30 MG Oral Ta blet 04/03/2019 12:00:00 AM EDT ROLANDO ([facility] [place] [facility]) Acetaminophen 300 MG / Codeine Phosphate 30 MG Oral Ta blet 04/03/2019 12:00:00 AM EDT ROLANDO ([facility]) Acetaminophen 300 MG / Codeine Phosphate 30 MG Oral Ta blet 04/03/2019 12:00:00 AM EDT ROLANDO ([facility]) Acetaminophen 300 MG / Codeine Phosphate 30 MG Oral Ta blet 04/03/2019 12:00:00 AM EDT ROLANDO ([facility]) Acetaminophen 300 MG / Codeine Phosphate 30 MG Oral Ta blet 04/03/2019 12:00:00 AM EDT ROLANDO ([facility]) Acetaminophen 300 MG / Codeine Phosphate 30 MG Oral Ta blet 04/03/2019 12:00:00 AM EDT ROLANDO ([facility]) Acetaminophen 300 MG / Codeine Phosphate 30 MG Oral Ta blet 04/03/2019 12:00:00 AM EDT ROLANDO ([facility]) Acetaminophen 300 MG / Codeine Phosphate 30 MG Oral Ta blet 04/03/2019 12:00:00 AM EDT ROLANDO ([facility] [place]) zonisamide 50 MG Oral Capsule ROLANDO ([facility]) topiramate 25 MG Oral Tablet ROLANDO ([facility] [place] [facility]) Sumatriptan 25 MG Oral Tablet ROLANDO ([facility] [place] [facility]) Simvastatin 20 MG Oral Tablet ROLANDO ([facility] [place] [facility]) 0.5 ML pneumococcal capsular polysacchar triston type 1 vaccine 0.05 MG/ML / pneumococcal capsular polysaccharide type 10A vaccine 0.05 MG/ML / pneumococcal capsular polysaccharide type 11A vaccine 0.05 MG/ML / pneumococcal capsular polysaccharide type 12F vac ATHE NA ([facility] [place] [facility]) Oseltamivir 75 MG Oral Capsule ROLANDO ([facility] [place]) Ondansetron 8 MG Oral Tablet ROLANDO ([facility] [place]) Ondansetron 4 MG Disintegrating Oral Tablet ROLANDO ([facility] [place]) Naproxen 250 MG Oral Tablet ROLANDO ([facility] [place]) Metoclopramide 10 MG Oral Tablet ROLANDO ([facility] [place] [facility]) 24 HR Metformin hydrochloride 500 MG Extended Release Oral Tablet ROLANDO ([facility] [place]) meloxicam 7.5 MG Oral Tablet ROLANDO ([facility] [place] [facility]) Acetaminophen 325 MG / Hydrocodone Bitartrate 7.5 MG Oral Tablet ROLANDO ([facility] [place]) Acetaminophen 325 MG / Hydrocodone Bitartrate 5 MG Oral Tablet ROLANDO ([facility] [place] [facility]) Fluzone Quad (PF) 60 mcg (15 m cg x 4)/0.5 mL IM syringe INJECT INTRAMUSCULARLY IN THE LEFT ARM ROLANDO ([facility]) Flucelvax Quad 60 mcg (15 mcg x 4)/0.5 mL intramuscular susp INJECT 0.5ML DIRECTED [facility]OL[facility]O ([facility] [place]) Flucelvax Quad 60 mcg (15 mcg x 4)/0.5 mL IM suspension ROLANDO ([facility] [place]) duloxetine 30 MG Delayed Release Oral Capsule ROLANDO ([facility] [place]) doxycycline hyclate 100 MG Oral Tablet ROLANDO ([facility] [place]) Divalproex Sodium 500 MG Delayed Release Oral Tablet ROLANDO ([facility] [place] [facility]) Divalproex Sodium 250 MG Delayed Release Oral Tablet ROLANDO ([facility] [place] [facility]) carvedilol 3.125 MG Oral Tablet ROLANDO ([facility] [place] [facility]) Amoxicillin 875 MG / Clavulanate 125 MG Oral Tablet ROLANDO ([facility] [place]) Allopurinol 100 MG Oral Tablet ROLANDO ([facility] [place]) zonisamide 50 MG Oral Capsule ROLANDO ([facility] [place]) topiramate 25 MG Oral Tablet ROLANDO ([facility] [place] [facility]) Sumatriptan 25 MG Oral Tablet ROLANDO ([facility] [place]) Simvastatin 20 MG Oral Tablet ROLANDO ([facility] [place] [facility]) 0.5 ML pneumococcal capsular polysacchar triston type 1 vaccine 0.05 MG/ML / pneumococcal capsular polysaccharide type 10A vaccine 0.05 MG/ML / pneumococcal capsular polysaccharide type 11A vaccine 0.05 MG/ML / pneumococcal capsular polysaccharide type 12F vac ATHE NA ([facility] [place] [facility]) Oseltamivir 75 MG Oral Capsule ROLANDO ([facility] [place] [facility]) Ondansetron 8 MG Oral Tablet ROLANDO ([facility]) Ondansetron 4 MG Disintegrating Oral Tablet ROLANDO ([facility] [place]) Naproxen 250 MG Oral Tablet ROLANDO ([facility]) Metoclopramide 10 MG Oral Tablet ROLANDO ([facility] [place]) 24 HR Metformin hydrochloride 500 MG Extended Release Oral Tablet ROLANDO ([facility] [place] [facility]) meloxicam 7.5 MG Oral Tablet ROLANDO ([facility] [place]) Acetaminophen 325 MG / Hydrocodone Bitartrate 7.5 MG Oral Tablet ROLANDO ([facility]) Acetaminophen 325 MG / Hydrocodone Bitartrate 5 MG Oral Tablet ROLANDO ([facility] [place] [facility]) Fluzone Quad (PF) 60 mcg (15 m cg x 4)/0.5 mL IM syringe INJECT INTRAMUSCULARLY IN THE LEFT ARM ROLANDO ([facility] [place]) Flucelvax Quad 60 mcg (15 mcg x 4)/0.5 mL intramuscular susp INJECT 0.5ML DIRECTED ROLANDO ([facility] [place]) Flucelvax Quad 60 mcg (15 mcg x 4)/0.5 mL IM suspension ROLANDO ([facility] [place] [facility]) duloxetine 30 MG Delayed Release Oral Capsule ROLANDO ([facility] [place]) doxycycline hyclate 100 MG Oral Tablet ROLANDO ([facility] [place]) Divalproex Sodium 500 MG Delayed Release Oral Tablet ROLANDO ([facility] [place]) Divalproex Sodium 250 MG Delayed Release Oral Tablet ROLANDO ([facility]) carvedilol 3.125 MG Oral Tablet ROLANDO ([facility] [place]) Amoxicillin 875 MG / Clavulanate 125 MG Oral Tablet ROLANDO ([facility]) Allopurinol 100 MG Oral Tablet ROLANDO ([facility] [place] [facility]) zonisamide 50 MG Oral Capsule ROLANDO ([facility]) topiramate 25 MG Oral Tablet ROLANDO ([facility] [place]) Sumatriptan 25 MG Oral Tablet ROLANDO ([facility] [place]) Simvastatin 20 MG Oral Tablet ROLANDO ([facility] [place]) 0.5 ML pneumococcal capsular polysacchar triston type 1 vaccine 0.05 MG/ML / pneumococcal capsular polysaccharide type 10A vaccine 0.05 MG/ML / pneumococcal capsular polysaccharide type 11A vaccine 0.05 MG/ML / pneumococcal capsular polysaccharide type 12F vac ATHE NA ([facility] [place] [facility]) Oseltamivir 75 MG Oral Capsule ROLANDO ([facility] [place] [facility]) Ondansetron 8 MG Oral Tablet ROLANDO ([facility] [place]) Naproxen 250 MG Oral Tablet ROLANDO ([facility]) Metoclopramide 10 MG Oral Tablet ROLANDO ([facility] [place]) 24 HR Metformin hydrochloride 500 MG Extended Release Oral Tablet ROLANDO ([facility]) meloxicam 7.5 MG Oral Tablet ROLANDO ([facility] [place]) Acetaminophen 325 MG / Hydrocodone Bitartrate 7.5 MG Oral Tablet ROLANDO ([facility]) Acetaminophen 325 MG / Hydrocodone Bitartrate 5 MG Oral Tablet ROLANDO ([facility]) Fluzone Quad (PF) 60 mcg (15 m cg x 4)/0.5 mL IM syringe INJECT INTRAMUSCULARLY IN THE LEFT ARM ROLANDO ([facility]) Flucelvax Quad 60 mcg (15 mcg x 4)/0.5 mL intramuscular susp INJECT 0.5ML DIRECTED ROLANDO ([facility] [place]) Flucelvax Quad 60 mcg (15 mcg x 4)/0.5 mL IM suspension ROLANDO ([facility]) duloxetine 30 MG Delayed Release Oral Capsule ROLANDO ([facility] [place]) doxycycline hyclate 100 MG Oral Tablet ROLANDO ([facility]) Divalproex Sodium 500 MG Delayed Release Oral Tablet ROLANDO ([facility] [place]) Divalproex Sodium 250 MG Delayed Release Oral Tablet ROLANDO ([facility]) Sumatriptan 25 MG Oral Tablet ROLANDO ([facility] [place]) Simvastatin 20 MG Oral Tablet ROLANDO ([facility]) 0.5 ML pneumococcal capsular polysacchar triston type 1 vaccine 0.05 MG/ML / pneumococcal capsular polysaccharide type 10A vaccine 0.05 MG/ML / pneumococcal capsular polysaccharide type 11A vaccine 0.05 MG/ML / pneumococcal capsular polysaccharide type 12F vac ATHE NA ([facility]) Oseltamivir 75 MG Oral Capsule ROLANDO ([facility] [place] [facility]) Ondansetron 8 MG Oral Tablet ROLANDO ([facility] [place] [facility]) Ondansetron 4 MG Oral Tablet ROLANDO ([facility]) Ondansetron 4 MG Disintegrating Oral Tablet ROLANDO ([facility] [place]) Naproxen 250 MG Oral Tablet ROLANDO ([facility] [place]) Metoclopramide 10 MG Oral Tablet ROLANDO ([facility] [place]) 24 HR Metformin hydrochloride 500 MG Extended Release Oral Tablet ROLANDO ([facility] [place]) meloxicam 7.5 MG Oral Tablet ROLANDO ([facility]) Acetaminophen 325 MG / Hydrocodone Bitartrate 7.5 MG Oral Tablet ROLANDO ([facility]) Acetaminophen 325 MG / Hydrocodone Bitartrate 5 MG Oral Tablet ROLANDO ([facility] [place] [facility]) Fluzone Quad (PF) 60 mcg (15 m cg x 4)/0.5 mL IM syringe INJECT INTRAMUSCULARLY IN THE LEFT ARM ROLANDO ([facility] [place] [facility]) Flucelvax Quad 60 mcg (15 mcg x 4)/0.5 mL intramuscular susp INJECT 0.5ML DIRECTED ROLANDO ([facility] [place]) Flucelvax Quad 60 mcg (15 mcg x 4)/0.5 mL IM suspension ROLANDO ([facility] [place] [facility]) duloxetine 30 MG Delayed Release Oral Capsule ROLANDO ([facility] [place] [facility]) doxycycline hyclate 100 MG Oral Tablet ROLANDO ([facility] [place]) Divalproex Sodium 500 MG Delayed Release Oral Tablet ROLANDO ([facility] [place]) Divalproex Sodium 250 MG Delayed Release Oral Tablet ROLANDO ([facility] [place]) carvedilol 3.125 MG Oral Tablet ROLANDO ([facility]) Amoxicillin 875 MG / Clavulanate 125 MG Oral Tablet ROLANDO ([facility] [place]) Allopurinol 100 MG Oral Tablet ROLANDO ([facility] [place]) zonisamide 50 MG Oral Capsule ROLANDO ([facility] [place]) topiramate 50 MG Oral Tablet ROLANDO ([facility]) Sumatriptan 25 MG Oral Tablet ROLANDO ([facility] [place]) Simvastatin 20 MG Oral Tablet ROLANDO ([facility] [place] [facility]) 0.5 ML pneumococcal capsular polysacchar triston type 1 vaccine 0.05 MG/ML / pneumococcal capsular polysaccharide type 10A vaccine 0.05 MG/ML / pneumococcal capsular polysaccharide type 11A vaccine 0.05 MG/ML / pneumococcal capsular polysaccharide type 12F vac ATHE NA ([facility]) Oseltamivir 75 MG Oral Capsule ROLANDO ([facility] [place] [facility]) Ondansetron 8 MG Oral Tablet ROLANDO ([facility] [place]) Ondansetron 4 MG Oral Tablet ROLANDO ([facility] [place]) Ondansetron 4 MG Disintegrating Oral Tablet ROLANDO ([facility] [place]) Naproxen 250 MG Oral Tablet ROLANDO ([facility] [place]) Metoclopramide 10 MG Oral Tablet ROLANDO ([facility] [place] [facility]) 24 HR Metformin hydrochloride 500 MG Extended Release Oral Tablet ROLANDO ([facility] [place]) meloxicam 7.5 MG Oral Tablet ROLANDO ([facility] [place]) Acetaminophen 325 MG / Hydrocodone Bitartrate 7.5 MG Oral Tablet ROLANDO ([facility] [place]) Acetaminophen 325 MG / Hydrocodone Bitartrate 5 MG Oral Tablet ROLANDO ([facility] [place]) Fluzone Quad (PF) 60 mcg (15 m cg x 4)/0.5 mL IM syringe INJECT INTRAMUSCULARLY IN THE LEFT ARM ROLANDO ([facility] [place]) Flucelvax Quad 60 mcg (15 mcg x 4)/0.5 mL intramuscular susp INJECT 0.5ML DIRECTED ROLANDO ([facility] [place]) Flucelvax Quad 60 mcg (15 mcg x 4)/0.5 mL IM suspension ROLANDO ([facility] [place]) doxycycline hyclate 100 MG Oral Tablet ROLANDO ([facility] [place]) Divalproex Sodium 500 MG Delayed Release Oral Tablet ROLANDO ([facility] [place]) Divalproex Sodium 250 MG Delayed Release Oral Tablet ROLANDO ([facility] [place]) carvedilol 3.125 MG Oral Tablet ROLANDO ([facility] [place]) Amoxicillin 875 MG / Clavulanate 125 MG Oral Tablet ROLANDO ([facility] [place]) Allopurinol 100 MG Oral Tablet ROLANDO ([facility] [place]) zonisamide 50 MG Oral Capsule ROLANDO ([facility] [place]) topiramate 50 MG Oral Tablet ROLANDO ([facility] [place]) Sumatriptan 25 MG Oral Tablet ROLANDO ([facility] [place]) Simvastatin 20 MG Oral Tablet ROLANDO ([facility] [place]) 0.5 ML pneumococcal capsular polysacchar triston type 1 vaccine 0.05 MG/ML / pneumococcal capsular polysaccharide type 10A vaccine 0.05 MG/ML / pneumococcal capsular polysaccharide type 11A vaccine 0.05 MG/ML / pneumococcal capsular polysaccharide type 12F vac ATHE NA ([facility] [place]) Oseltamivir 75 MG Oral Capsule ROLANDO ([facility] [place]) Ondansetron 8 MG Oral Tablet ROLANDO ([facility] [place]) Ondansetron 4 MG Oral Tablet ROLANDO ([facility] [place]) Ondansetron 4 MG Disintegrating Oral Tablet ROLANDO ([facility] [place]) Naproxen 250 MG Oral Tablet ROLANDO ([facility] [place]) Metoclopramide 10 MG Oral Tablet ROLANDO ([facility] [place]) 24 HR Metformin hydrochloride 500 MG Extended Release Oral Tablet ROLANDO ([facility] [place]) Amoxicillin 875 MG / Clavulanate 125 MG Oral Tablet ROLANDO ([facility] [place]) Allopurinol 100 MG Oral Tablet ROLANDO ([facility] [place]) zonisamide 50 MG Oral Capsule ROLANDO ([facility] [place]) topiramate 50 MG Oral Tablet ROLANDO ([facility]) Sumatriptan 25 MG Oral Tablet ROL[facility]O ([facility] [facility] [place] Simvastatin 20 MG Oral Tablet ROLANDO ([facility] [place]) 0.5 ML pneumococcal capsular polysacchar triston type 1 vaccine 0.05 MG/ML / pneumococcal capsular polysaccharide type 10A vaccine 0.05 MG/ML / pneumococcal capsular polysaccharide type 11A vaccine 0.05 MG/ML / pneumococcal capsular polysaccharide type 12F vac ATHE NA ([facility] [place]) Oseltamivir 75 MG Oral Capsule ROLANDO ([facility] [place]) Ondansetron 8 MG Oral Tablet ROL[facility] ([facility] [place]) Ondansetron 4 MG Oral Tablet ROL[facility]O ([facility] [place]) Ondansetron 4 MG Disintegrating Oral Tablet ROLANDO ([facility] [place]) Naproxen 250 MG Oral Tablet ROL[facility]O ([facility] [place]) Metoclopramide 10 MG Oral Tablet ROLANDO ([facility] [place]) 24 HR Metformin hydrochloride 500 MG Extended Release Oral Tablet ROLANDO ([facility] [place]) meloxicam 7.5 MG Oral Tablet ROLANDO ([facility] [place]) Acetaminophen 325 MG / Hydrocodone Bitartrate 7.5 MG Oral Tablet ROLANDO ([facility] [place]) Acetaminophen 325 MG / Hydrocodone Bitartrate 5 MG Oral Tablet ROLANDO ([facility] [place]) Fluzone Quad 6439-6315 (PF) 60 mcg (15 m cg x 4)/0.5 mL IM syringe INJECT INTRAMUSCULARLY IN THE LEFT ARM ROLANDO ([facility] [place]) Flucelvax Quad 60 mcg (15 mcg x 4)/0.5 mL intramuscular susp INJECT 0.5ML DIRECTED [facility] ([facility] [place]) Flucelvax Quad [id number] 60 mcg (15 mcg x 4)/0.5 mL IM suspension ROLANDO ([facility] [place]) doxycycline hyclate 100 MG Oral Tablet ROLANDO ([facility] [place]) Divalproex Sodium 500 MG Delayed Release Oral Tablet ROLANDO ([facility] [place]) Divalproex Sodium 250 MG Delayed Release Oral Tablet ROLANDO ([facility] [place]) carvedilol 3.125 MG Oral Tablet ROLANDO ([facility] [place]) Amoxicillin 875 MG / Clavulanate 125 MG Oral Tablet ROLANDO ([facility] [place]) Allopurinol 100 MG Oral Tablet ROLANDO ([facility] [place]) zonisamide 50 MG Oral Capsule ROLANDO ([facility] [place]) icosapent ethyl 1000 MG Oral Capsule [Vascepa] ROLANDO ([facility] [place]) topiramate 50 MG Oral Tablet ROL[facility]O ([facility] [place]) Sumatriptan 25 MG Oral Tablet ROL[facility]O ([facility] [place] Simvastatin 20 MG Oral Tablet ROLANDO ([facility] [place]) 0.5 ML pneumococcal capsular polysacchar triston type 1 vaccine 0.05 MG/ML / pneumococcal capsular polysaccharide type 10A vaccine 0.05 MG/ML / pneumococcal capsular polysaccharide type 11A vaccine 0.05 MG/ML / pneumococcal capsular polysaccharide type 12F vac ATHE NA ([facility] [place]) Oseltamivir 75 MG Oral Capsule ROLANDO ([facility] [place]) Ondansetron 8 MG Oral Tablet ROLANDO ([facility] [place]) Ondansetron 4 MG Oral Tablet ROLANDO ([facility] [place]) Ondansetron 4 MG Disintegrating Oral Tablet ROLANDO ([facility] [place]) Naproxen 250 MG Oral Tablet ROL[facility]O ([facility] [place]) Metoclopramide 10 MG Oral Tablet ROL[facility]O ([facility] [place]) meloxicam 7.5 MG Oral Tablet ROLANDO ([facility] [place]) Acetaminophen 325 MG / Hydrocodone Bitartrate 7.5 MG Oral Tablet ROLANDO ([facility] [place]) Acetaminophen 325 MG / Hydrocodone Bitartrate 5 MG Oral Tablet ROLANDO ([facility] [place]) doxycycline hyclate 100 MG Oral Tablet ROLANDO ([facility] [place]) Divalproex Sodium 500 MG Delayed Release Oral Tablet ROLANDO ([facility] [place]) Divalproex Sodium 250 MG Delayed Release Oral Tablet ROLANDO ([facility] [place]) carvedilol 3.125 MG Oral Tablet ROLANDO ([facility] [place]) Amoxicillin 875 MG / Clavulanate 125 MG Oral Tablet ROLANDO ([facility] [place]) Naproxen 250 MG Oral Tablet ROLANDO ([facility] [place]) Metoclopramide 10 MG Oral Tablet ROLANDO ([facility] [place]) 24 HR Metformin hydrochloride 500 MG Extended Release Oral Tablet ROLANDO ([facility] [place]) meloxicam 7.5 MG Oral Tablet ROLANDO ([facility] [place]) Acetaminophen 325 MG / Hydrocodone Bitartrate 7.5 MG Oral Tablet ROLANDO ([facility] [place]) Acetaminophen 325 MG / Hydrocodone Bitartrate 5 MG Oral Tablet ROLANDO ([facility] [place]) Fluzone Quad (PF) 60 mcg (15 m cg x 4)/0.5 mL IM syringe INJECT INTRAMUSCULARLY IN THE LEFT ARM ROLANDO ([facility] [place]) Flucelvax Quad 60 mcg (15 mcg x 4)/0.5 mL intramuscular susp INJECT 0.5ML DIRECTED [facility] ([facility] [place]) Flucelvax Quad 60 mcg (15 mcg x 4)/0.5 mL IM suspension ROLANDO ([facility] [place]) duloxetine 30 MG Delayed Release Oral Capsule ROLANDO ([facility] [place]) doxycycline hyclate 100 MG Oral Tablet ROLANDO ([facility] [place]) Divalproex Sodium 500 MG Delayed Release Oral Tablet ROLANDO ([facility] [place]) Divalproex Sodium 250 MG Delayed Release Oral Tablet ROLANDO ([facility] [place]) carvedilol 3.125 MG Oral Tablet ROLANDO ([facility] [place]) Amoxicillin 875 MG / Clavulanate 125 MG Oral Tablet ROLANDO ([facility] [place]) Allopurinol 100 MG Oral Tablet ROLANDO ([facility] [place]) zonisamide 50 MG Oral Capsule ROLANDO ([facility] [place]) topiramate 25 MG Oral Tablet ROLANDO ([facility] [place]) Sumatriptan 25 MG Oral Tablet ROLANDO ([facility] [place]) Simvastatin 20 MG Oral Tablet ROLANDO ([facility] [place]) 0.5 ML pneumococcal capsular polysacchar triston type 1 vaccine 0.05 MG/ML / pneumococcal capsular polysaccharide type 10A vaccine 0.05 MG/ML / pneumococcal capsular polysaccharide type 11A vaccine 0.05 MG/ML / pneumococcal capsular polysaccharide type 12F vac ATHE NA ([facility] [place]) Oseltamivir 75 MG Oral Capsule ROLANDO ([facility] [place]) Ondansetron 8 MG Oral Tablet ROLANDO ([facility] [place]) Ondansetron 4 MG Disintegrating Oral Tablet ROLANDO ([facility] [place]) Naproxen 250 MG Oral Tablet ROLANDO ([facility] [place]) Metoclopramide 10 MG Oral Tablet ROLANDO ([facility] [place]) 24 HR Metformin hydrochloride 500 MG Extended Release Oral Tablet ROLANDO ([facility] [place]) meloxicam 7.5 MG Oral Tablet ROLANDO ([facility] [place]) Acetaminophen 325 MG / Hydrocodone Bitartrate 7.5 MG Oral Tablet ROLANDO ([facility] [place]) Acetaminophen 325 MG / Hydrocodone Bitartrate 5 MG Oral Tablet ROLANDO ([facility] [place]) Fluzone Quad (PF) 60 mcg (15 m cg x 4)/0.5 mL IM syringe INJECT INTRAMUSCULARLY IN THE LEFT ARM ROLANDO ([facility] [place]) Flucelvax Quad 60 mcg (15 mcg x 4)/0.5 mL intramuscular susp INJECT 0.5ML DIRECTED [facility] ([facility] [place]) Flucelvax Quad 60 mcg (15 mcg x 4)/0.5 mL IM suspension ROLANDO ([facility] [place]) duloxetine 30 MG Delayed Release Oral Capsule ROLANDO ([facility] [place]) doxycycline hyclate 100 MG Oral Tablet ROLANDO ([facility] [place]) Divalproex Sodium 500 MG Delayed Release Oral Tablet ROLANDO ([facility] [place]) Divalproex Sodium 250 MG Delayed Release Oral Tablet ROLNADO ([facility] [place]) carvedilol 3.125 MG Oral Tablet ROLANDO ([facility] [place]) Amoxicillin 875 MG / Clavulanate 125 MG Oral Tablet ROLANDO ([facility] [place]) Allopurinol 100 MG Oral Tablet ROLANDO ([facility] [place]) zonisamide 50 MG Oral Capsule ROLANDO ([facility] [place]) topiramate 50 MG Oral Tablet ROLANDO ([facility] [place]) Sumatriptan 25 MG Oral Tablet ROLANDO ([facility] [place]) Simvastatin 20 MG Oral Tablet ROLANDO ([facility] [place]) 0.5 ML pneumococcal capsular polysacchar triston type 1 vaccine 0.05 MG/ML / pneumococcal capsular polysaccharide type 10A vaccine 0.05 MG/ML / pneumococcal capsular polysaccharide type 11A vaccine 0.05 MG/ML / pneumococcal capsular polysaccharide type 12F vac ATHE NA ([facility] [place]) Ondansetron 8 MG Oral Tablet ROLANDO ([facility] [place]) Ondansetron 4 MG Oral Tablet ROLANDO ([facility] [place]) Ondansetron 8 MG Disintegrating Oral Tablet ROLANDO ([facility] [place]) Naproxen 250 MG Oral Tablet ROLANDO ([facility] [place]) meloxicam 7.5 MG Oral Tablet ROLANDO ([facility] [place]) Acetaminophen 325 MG / Hydrocodone Bitartrate 7.5 MG Oral Tablet ROLANDO ([facility] [place]) Acetaminophen 325 MG / Hydrocodone Bitartrate 5 MG Oral Tablet ROLANDO ([facility] [place]) doxycycline hyclate 100 MG Oral Tablet ROLANDO ([facility] [place]) Divalproex Sodium 500 MG Delayed Release Oral Tablet ROLANDO ([facility] [place]) Divalproex Sodium 250 MG Delayed Release Oral Tablet ROLANDO ([facility] [place]) carvedilol 3.125 MG Oral Tablet ROLANDO ([facility] [place]) Amoxicillin 875 MG / Clavulanate 125 MG Oral Tablet ROLANDO ([facility] [place]) topiramate 50 MG Oral Tablet ROLANDO ([facility] [place]) Sumatriptan 25 MG Oral Tablet ROLANDO ([facility] [place]) Simvastatin 20 MG Oral Tablet ROLANDO ([facility] [place]) 0.5 ML pneumococcal capsular polysacchar triston type 1 vaccine 0.05 MG/ML / pneumococcal capsular polysaccharide type 10A vaccine 0.05 MG/ML / pneumococcal capsular polysaccharide type 11A vaccine 0.05 MG/ML / pneumococcal capsular polysaccharide type 12F vac ATHE NA ([facility] [place]) Ondansetron 8 MG Oral Tablet ROLANDO ([facility] [place]) Ondansetron 4 MG Oral Tablet ROLANDO ([facility] [place]) Ondansetron 8 MG Disintegrating Oral Tablet ROLANDO ([facility] [place]) Naproxen 250 MG Oral Tablet ROLANDO ([facility] [place]) Metformin hydrochloride 1000 MG Oral Tablet ROLANDO ([facility] [place]) meloxicam 7.5 MG Oral Tablet ROLANDO ([facility] [place]) Acetaminophen 325 MG / Hydrocodone Bitartrate 7.5 MG Oral Tablet ROLANDO ([facility] [place]) Acetaminophen 325 MG / Hydrocodone Bitartrate 5 MG Oral Tablet ROLANDO ([facility] [place]) doxycycline hyclate 100 MG Oral Tablet ROLANDO ([facility] [place]) Divalproex Sodium 500 MG Delayed Release Oral Tablet ROLANDO ([facility] [place]) Divalproex Sodium 250 MG Delayed Release Oral Tablet ROLANDO ([facility] [place]) carvedilol 3.125 MG Oral Tablet ROLANDO ([facility] [place]) Amoxicillin 875 MG / Clavulanate 125 MG Oral Tablet ROLANDO ([facility] [place]) topiramate 50 MG Oral Tablet ROLANDO ([facility] [place] Sumatriptan 25 MG Oral Tablet ROLANDO ([facility] [place]) carvedilol 3.125 MG Oral Tablet ROLANDO ([facility] [place]) Amoxicillin 875 MG / Clavulanate 125 MG Oral Tablet ROLANDO ([facility] [place]) Allopurinol 100 MG Oral Tablet ROLANDO ([facility] [place]) zonisamide 50 MG Oral Capsule ROLANDO ([facility] [place]) topiramate 25 MG Oral Tablet ROLANDO ([facility] [place]) Sumatriptan 25 MG Oral Tablet ROLANDO ([facility] [place]) Simvastatin 20 MG Oral Tablet ROLANDO ([facility] [place]) 0.5 ML pneumococcal capsular polysacchar triston type 1 vaccine 0.05 MG/ML / pneumococcal capsular polysaccharide type 10A vaccine 0.05 MG/ML / pneumococcal capsular polysaccharide type 11A vaccine 0.05 MG/ML / pneumococcal capsular polysaccharide type 12F vac ATHE NA ([facility] [place]) Oseltamivir 75 MG Oral Capsule ROLANDO ([facility] [place]) Ondansetron 8 MG Oral Tablet ROLANDO ([facility] [place]) meloxicam 7.5 MG Oral Tablet ROLANDO ([facility] [place]) Acetaminophen 325 MG / Hydrocodone Bitartrate 7.5 MG Oral Tablet ROLANDO ([facility] [place]) Acetaminophen 325 MG / Hydrocodone Bitartrate 5 MG Oral Tablet ROLANDO ([facility] [place]) Fluzone Quad (PF) 60 mcg (15 m cg x 4)/0.5 mL IM syringe INJECT INTRAMUSCULARLY IN THE LEFT ARM ROLANDO ([facility] [place]) Flucelvax Quad 60 mcg (15 mcg x 4)/0.5 mL intramuscular susp INJECT 0.5ML DIRECTED [facility] ([facility] [place]) Flucelvax Quad 60 mcg (15 mcg x 4)/0.5 mL IM suspension ROLANDO ([facility] [place]) doxycycline hyclate 100 MG Oral Tablet ROLANDO ([facility] [place]) Divalproex Sodium 500 MG Delayed Release Oral Tablet ROLANDO ([facility] [place]) Divalproex Sodium 250 MG Delayed Release Oral Tablet ROLANDO ([facility] [place]) carvedilol 3.125 MG Oral Tablet ROLANDO ([facility] [place]) Simvastatin 20 MG Oral Tablet ROLANDO ([facility] [place]) 0.5 ML pneumococcal capsular polysacchar triston type 1 vaccine 0.05 MG/ML / pneumococcal capsular polysaccharide type 10A vaccine 0.05 MG/ML / pneumococcal capsular polysaccharide type 11A vaccine 0.05 MG/ML / pneumococcal capsular polysaccharide type 12F vac ATHE NA ([facility] [place]) Ondansetron 8 MG Oral Tablet ROLANDO ([facility] [place]) Ondansetron 4 MG Oral Tablet ROLANDO ([facility] [place]) Ondansetron 8 MG Disintegrating Oral Tablet ROLANDO ([facility] [place]) Naproxen 250 MG Oral Tablet ROLANDO ([facility] [place]) Metformin hydrochloride 1000 MG Oral Tablet ROLANDO ([facility] [place]) meloxicam 7.5 MG Oral Tablet ROLANDO ([facility] [place]) topiramate 50 MG Oral Tablet ROLANDO ([facility] [place]) Sumatriptan 25 MG Oral Tablet ROLANDO ([facility] [place]) Simvastatin 20 MG Oral Tablet ROLANDO ([facility] [place]) 0.5 ML pneumococcal capsular polysacchar triston type 1 vaccine 0.05 MG/ML / pneumococcal capsular polysaccharide type 10A vaccine 0.05 MG/ML / pneumococcal capsular polysaccharide type 11A vaccine 0.05 MG/ML / pneumococcal capsular polysaccharide type 12F vac ATHE NA ([facility] [place]) Ondansetron 8 MG Oral Tablet ROLANDO ([facility] [place]) Ondansetron 4 MG Oral Tablet ROLANDO ([facility] [place]) Ondansetron 8 MG Disintegrating Oral Tablet ROLANDO ([facility] [place]) Naproxen 250 MG Oral Tablet ROLANDO ([facility] [place]) Metformin hydrochloride 1000 MG Oral Tablet ROLANDO ([facility] [place]) meloxicam 7.5 MG Oral Tablet ROLANDO ([facility] [place]) Acetaminophen 325 MG / Hydrocodone Bitartrate 7.5 MG Oral Tablet ROLANDO ([facility] [place]) Acetaminophen 325 MG / Hydrocodone Bitartrate 5 MG Oral Tablet ROLANDO ([facility] [place]) doxycycline hyclate 100 MG Oral Tablet ROLANDO ([facility] [place]) Divalproex Sodium 500 MG Delayed Release Oral Tablet ROLANDO ([facility] [place]) Divalproex Sodium 250 MG Delayed Release Oral Tablet ROLANDO ([facility] [place]) carvedilol 3.125 MG Oral Tablet ROLANDO ([facility] [place]) Amoxicillin 875 MG / Clavulanate 125 MG Oral Tablet ROLANDO ([facility] [place]) topiramate 50 MG Oral Tablet ROLANDO ([facility] [place]) Sumatriptan 25 MG Oral Tablet ROLANDO ([facility] [place]) Ondansetron 8 MG Oral Tablet ROLANDO ([facility] [place]) Ondansetron 4 MG Oral Tablet ROLANDO ([facility] [place]) Ondansetron 8 MG Disintegrating Oral Tablet ROLANDO ([facility] [place]) Naproxen 250 MG Oral Tablet ROLANDO ([facility] [place]) meloxicam 7.5 MG Oral Tablet ROLANDO ([facility] [place]) Acetaminophen 325 MG / Hydrocodone Bitartrate 7.5 MG Oral Tablet ROLANDO ([facility] [place]) Acetaminophen 325 MG / Hydrocodone Bitartrate 5 MG Oral Tablet ROLANDO ([facility] [place] doxycycline hyclate 100 MG Oral Tablet [facility] ([facility] [place]) Divalproex Sodium 250 MG Delayed Release Oral Tablet [facility] ([facility] [place]) carvedilol 3.125 MG Oral Tablet [facility] ([facility] [place]) Amoxicillin 875 MG / Clavulanate 125 MG Oral Tablet [facility] ([facility] [place]) topiramate 50 MG Oral Tablet [facility] ([facility] [place]) Sumatriptan 25 MG Oral Tablet R[facility] ([facility] [place]) Simvastatin 20 MG Oral Tablet [facility] ([facility] [place]) 0.5 ML pneumococcal capsular polysacchar triston type 1 vaccine 0.05 MG/ML / pneumococcal capsular polysaccharide type 10A vaccine 0.05 MG/ML / pneumococcal capsular polysaccharide type 11A vaccine 0.05 MG/ML / pneumococcal capsular polysaccharide type 12F vac ATHE NA ([facility] [place]) Ondansetron 8 MG Oral Tablet [facility] ([facility] [place]) Ondansetron 4 MG Oral Tablet [facility] ([facility] [place]) Ondansetron 8 MG Disintegrating Oral Tablet [facility] ([facility] [place]) Naproxen 250 MG Oral Tablet [facility] ([facility] [place]) meloxicam 7.5 MG Oral Tablet [facility] ([facility] [place]) Acetaminophen 325 MG / Hydrocodone Bitartrate 7.5 MG Oral Tablet [facility] ([facility] [place]) Acetaminophen 325 MG / Hydrocodone Bitartrate 5 MG Oral Tablet [facility] ([facility] [place]) doxycycline hyclate 100 MG Oral Tablet [facility] ([facility] [place]) Divalproex Sodium 500 MG Delayed Release Oral Tablet [facility] ([facility] [place]) Divalproex Sodium 250 MG Delayed Release Oral Tablet [facility] ([facility] [place]) carvedilol 3.125 MG Oral Tablet [facility] ([facility] [place]) Amoxicillin 875 MG / Clavulanate 125 MG Oral Tablet [facility] ([facility] [place]) Acetaminophen 325 MG / Hydrocodone Bitartrate 7.5 MG Oral Tablet [facility] ([facility] [place]) Acetaminophen 325 MG / Hydrocodone Bitartrate 5 MG Oral Tablet [facility] ([facility] [place]) doxycycline hyclate 100 MG Oral Tablet [facility] ([facility] [place]) Divalproex Sodium 500 MG Delayed Release Oral Tablet [facility] ([facility] [place]) Divalproex Sodium 250 MG Delayed Release Oral Tablet [facility] ([facility] [place]) carvedilol 3.125 MG Oral Tablet [facility] ([facility] [place]) Amoxicillin 875 MG / Clavulanate 125 MG Oral Tablet [facility] ([facility] [place])
[2021-07-25] MEDS ORDERED: diphenhydrAMINE 50MG/ML VIAL (J1200) IV ONE (00:30)
[2021-07-25] MEDS ORDERED: ONDANSETRON 4MG/2ML VIAL IV ONE (00:30)
[2021-07-25] MEDS ORDERED: NS 1,000 ML IV ONE (00:30)
[2021-07-25] MEDS ORDERED: KETOROLAC 30 MG/ML 1ML VIAL IV ONE (00:30)
[2021-07-25 00:37] VITALS: BP 139/87
[2021-07-25 01:36] LABS: BASO # 0.1 10^3/uL (0.0-0.2); BASO % 0.7 % (0.0-1.0); EOS # 0.2 10^3/uL (0.0-0.5); EOS % 1.7 % (0.0-3.0); HEMATOCRIT 43.8 % (42.0-52.0); LYMPH % 34.7 % (24.0-44.0); MEAN CORPUSCULAR HEMOGLOBIN 32.1 pg (27.0-33.0); MEAN CORPUSCULAR HGB CONC 32.6 g/dl (32.0-36.5); MEAN CORPUSCULAR VOLUME 98.4 fl (80.0-96.0); MONO # 0.8 10^3/uL (0.0-0.8); MONO % 7.1 % (2.0-8.0); NEUTROPHILS # 6.3 10^3/uL (1.5-8.5); NEUTROPHILS % 55.3 % (36.0-66.0); PLATELET COUNT, AUTOMATED 235 10^3/uL (150-450); RED BLOOD COUNT 4.45 10^6/uL (4.30-6.10); WHITE BLOOD COUNT 11.4 10^3/uL (4.0-10.0)
[2021-07-25 01:47] LABS: HEMOGLOBIN 14.3 g/dl (13.5-17.5)
[2021-07-25 02:07] LABS: RSV AMPLIFICATION NEGATIVE (NEGATIVE)
--- OUTSIDE RECORDS SUMMARY | 2021-07-25 03:21 | CCD ---
Author Author [facility] Organization [facility] Address Unknown Phone Unavailable Care Team Providers Care Target Man Name Role Phone Monster BARAKAT. HUMAN RESOURCES TALENT MANAGER TRIP Unavailable [phone] Monster BARAKAT. HUMAN RESOURCES TALENT MANAGER TRIP Unavailable [phone] Monster BARAKAT. HUMAN RESOURCES TALENT MANAGER TRIP Unavailable [phone] Monster BARAKAT. HUMAN RESOURCES TALENT MANAGER TRIP Unavailable [phone] Monster BARAKAT. HUMAN RESOURCES TALENT MANAGER TRIP Unavailable [phone] Monster BARAKAT. HUMAN RESOURCES TALENT MANAGER TRIP Unavailable [phone] Monster BARAKAT. HUMAN RESOURCES TALENT MANAGER TRIP Unavailable [phone] Monster BARAKAT. HUMAN RESOURCES TALENT MANAGER TRIP Unavailable [phone] Monster BARAKAT. HUMAN RESOURCES TALENT MANAGER TRIP Unavailable [phone] Monster BARAKAT. HUMAN RESOURCES TALENT MANAGER TRIP Unavailable [phone] Monster BARAKAT. HUMAN RESOURCES TALENT MANAGER TRIP Unavailable [phone] Monster BARAKAT. HUMAN RESOURCES TALENT MANAGER TRIP Unavailable [phone] ROSHNI, A. HUMAN RESOURCES TALENT MANAGER TRIP Unavailable [phone] Monster BARAKAT. HUMAN RESOURCES TALENT MANAGER TRIP Unavailable [phone] Monster BARAKAT. HUMAN RESOURCES TALENT MANAGER TRIP Unavailable [phone] Monster BARAKAT. HUMAN RESOURCES TALENT MANAGER TRIP Unavailable [phone] Avi Frances PA PA Unavailable [phone] FrancesAvi villatoro PA PA Unavailable [phone] FrancesAvi villatoro PA PA Unavailable [phone] FrancesAvi villatoro PA PA Unavailable [phone] Avi Frances PA PA Unavailable [phone] CLARK, Francois ZUNIGA NP Unavailable Unavailable LAROCK, [...] Carmen PA Unavailable Unavailable Jumalon, M Nyla HUMAN RESOURCES TALENT MANAGER Unavailable Unavailable Jumalon, M Nyla HUMAN RESOURCES TALENT MANAGER Unavailable Unavailable Jumalon, M Nyla HUMAN RESOURCES TALENT MANAGER Unavailable Unavailable Jumalon, M Nyla HUMAN RESOURCES TALENT MANAGER Unavailable Unavailable Jumalon, M Nyla HUMAN RESOURCES TALENT MANAGER Unavailable Unavailable Jumalon, M Nyla HUMAN RESOURCES TALENT MANAGER Unavailable Unavailable Jumalon, M Nyla HUMAN RESOURCES TALENT MANAGER Unavailable Unavailable Jumalon, M Nyla HUMAN RESOURCES TALENT MANAGER Unavailable Unavailable Jumalon, M Nyla HUMAN RESOURCES TALENT MANAGER Unavailable Unavailable Jumalon, M Nyla HUMAN RESOURCES TALENT MANAGER Unavailable Unavailable Jumalon, M Nyla HUMAN RESOURCES TALENT MANAGER Unavailable Unavailable Jumalon, M Nyla HUMAN RESOURCES TALENT MANAGER Unavailable Unavailable Jumalon, M Nyla HUMAN RESOURCES TALENT MANAGER Unavailable Unavailable Jumalon, M Nyla HUMAN RESOURCES TALENT MANAGER Unavailable Unavailable Jumalon, M Nyla HUMAN RESOURCES TALENT MANAGER Unavailable Unavailable Jumalon, M Nyla HUMAN RESOURCES TALENT MANAGER Unavailable Unavailable Jumalon, M Nyla HUMAN RESOURCES TALENT MANAGER Unavailable Unavailable Jumalon, M Nyla HUMAN RESOURCES TALENT MANAGER Unavailable Unavailable Jumalon, M Nyla HUMAN RESOURCES TALENT MANAGER Unavailable Unavailable Jumalon, M Nyla HUMAN RESOURCES TALENT MANAGER Unavailable Unavailable Jumalon, M Nyla HUMAN RESOURCES TALENT MANAGER Unavailable Unavailable Jumalon, M Nyla HUMAN RESOURCES TALENT MANAGER Unavailable Unavailable Jumalon, M Nyla HUMAN RESOURCES TALENT MANAGER Unavailable Unavailable Jumalon, M Nyla HUMAN RESOURCES TALENT MANAGER Unavailable Unavailable Jumalon, M Nyla HUMAN RESOURCES TALENT MANAGER Unavailable Unavailable Jumalon, M Nyla HUMAN RESOURCES TALENT MANAGER Unavailable Unavailable Jumalon, M Nyla HUMAN RESOURCES TALENT MANAGER Unavailable Unavailable Jumalon, M Nyla HUMAN RESOURCES TALENT MANAGER Unavailable Unavailable Jumalon, M Nyla HUMAN RESOURCES TALENT MANAGER Unavailable Unavailable Jumalon, M Nyla HUMAN RESOURCES TALENT MANAGER Unavailable Unavailable Malek, T Hamza MD Unavailable [phone] Malek, T Hamza MD Unavailable [phone] Malek, T Hamza MD Unavailable [phone] Malek, T Hamza MD Unavailable [phone] Malek, T Hamza MD Unavailable [phone] Malek, T Hamza MD Unavailable [phone] Malek, T Hamza MD Unavailable [phone] Malek, T Hamza MD Unavailable [phone] Malek, T Hamza MD Unavailable [phone] Malek, T Hamza MD Unavailable [phone] Malek, T Hamza MD Unavailable [phone] Malek, T Hamza MD Unavailable [phone] Malek, T Hamza MD Unavailable [phone] Malek, T Hamza MD Unavailable [phone] Malek, T Hamza MD Unavailable [phone] Malek, T Hamza MD Unavailable [phone] Malek, T Hamza MD Unavailable [phone] Malek, T Hamza MD Unavailable [phone] Malek, T Hamza MD Unavailable [phone] Malelinda, Paco Paloma CARLSON Unavailable [phone] Malelinda, Paco Paloma CARLSON Unavailable [phone] Malelinda, Paco Paloma CARLSON Unavailable [phone] RING, K KYLEIGH PA Unavailable Unavailable RING, K KYLEIGH PA Unavailable Unavailable RING, K KYLIEGH PA Unavailable Unavailable RING, K KYLEIGH PA [...] Szymanski MD Unavailable Unavailable CHACHO, B LESA STEEL ROLLER Unavailable Unavailable CHACHO, B LESA STEEL ROLLER Unavailable Unavailable CHACHO, B LESA STEEL ROLLER Unavailable Unavailable CHACHO, B LESA STEEL ROLLER Unavailable Unavailable CHACHO, B LESA STEEL ROLLER Unavailable Unavailable CHACHO, B LESA STEEL ROLLER Unavailable Unavailable CHACHO, B LESA STEEL ROLLER Unavailable Unavailable CHACHO, B LESA STEEL ROLLER Unavailable Unavailable CHACHO, B LESA STEEL ROLLER Unavailable Unavailable CHACHO, B LESA STEEL ROLLER Unavailable Unavailable CHACHO, B LESA STEEL ROLLER Unavailable Unavailable CHACHO, B LESA STEEL ROLLER Unavailable Unavailable CHACHO, B LESA STEEL ROLLER Unavailable Unavailable CHACHO, B LESA STEEL ROLLER Unavailable Unavailable CHACHO, B LESA STEEL ROLLER Unavailable Unavailable CHACHO, B LESA STEEL ROLLER Unavailable Unavailable CHACHO, B LESA STEEL ROLLER Unavailable Unavailable CHACHO, B LESA STEEL ROLLER Unavailable Unavailable CHACHO, B LESA STEEL ROLLER Unavailable Unavailable CHACHO, B LESA STEEL ROLLER Unavailable Unavailable CHACHO, B LESA STEEL ROLLER Unavailable Unavailable CHACHO, B LESA STEEL ROLLER Unavailable Unavailable CHACHO, B LESA STEEL ROLLER Unavailable Unavailable CHACHO, B LESA STEEL ROLLER Unavailable Unavailable CHACHO, B LESA STEEL ROLLER Unavailable Unavailable CHACHO, B LESA STEEL ROLLER Unavailable Unavailable CHACHO, B LESA STEEL ROLLER Unavailable Unavailable CHACHO, B LESA STEEL ROLLER Unavailable Unavailable CHACHO, B LESA STEEL ROLLER Unavailable Unavailable CHACHO, B LESA STEEL ROLLER Unavailable Unavailable CHACHO, B LESA STEEL ROLLER Unavailable Unavailable CHACHO, B LESA STEEL ROLLER Unavailable Unavailable CHACHO, B LESA STEEL ROLLER Unavailable Unavailable CHACHO, B LESA STEEL ROLLER Unavailable Unavailable CHACHO, B LESA STEEL ROLLER Unavailable Unavailable CHACHO, B LESA STEEL ROLLER Unavailable Unavailable CHACHO, B LESA STEEL ROLLER Unavailable Unavailable CHACHO, B LESA STEEL ROLLER Unavailable Unavailable CHACHO, B LESA STEEL ROLLER Unavailable Unavailable CHACHO, B LESA STEEL ROLLER Unavailable Unavailable CHACHO, B LESA STEEL ROLLER Unavailable Unavailable CHAHCO, B LESA STEEL ROLLER Unavailable Unavailable CHACHO, B LESA STEEL ROLLER Unavailable Unavailable CHACHO, B LESA STEEL ROLLER Unavailable Unavailable CHACHO, B LESA STEEL ROLLER Unavailable Unavailable CHACHO, B LESA STEEL ROLLER Unavailable Unavailable CHACHO, B LESA STEEL ROLLER Unavailable Unavailable CHACHO, B LESA STEEL ROLLER Unavailable Unavailable CHACHO, B LESA STEEL ROLLER Unavailable Unavailable CHACHO, B LESA STEEL ROLLER Unavailable Unavailable CHACHO, B LESA STEEL ROLLER Unavailable Unavailable CHACHO, B LESA STEEL ROLLER Unavailable Unavailable CHACHO, B LESA STEEL ROLLER Unavailable Unavailable CHACHO, B LESA STEEL ROLLER Unavailable Unavailable CHACHO, B LESA STEEL ROLLER Unavailable Unavailable CHACHO, B LESA STEEL ROLLER Unavailable Unavailable CHACHO, B LESA STEEL ROLLER Unavailable Unavailable CHACHO, B LESA STEEL ROLLER Unavailable Unavailable CHACHO, B LESA STEEL ROLLER Unavailable Unavailable CHACHO, B LESA STEEL ROLLER Unavailable Unavailable CHACHO, B LESA STEEL ROLLER Unavailable Unavailable CHACHO, B LESA STEEL ROLLER Unavailable Unavailable Navarro, Leila SOTELO Unavailable Unavailable [...] B Sarah CARLSON Unavailable Unavailable Fish, B aSrah CARLSON Unavailable Unavailable Fish, B Sarah CARLSON Unavailable Unavailable Fish, B Sarah CARLSON Unavailable Unavailable Fish, B Sarah CARLSON Unavailable Unavailable Fish, B Sarah CARLSON Unavailable Unavailable Fish, B Sarah CARLSON Unavailable Unavailable Fish, B Sarah CARLSON Unavailable Unavailable Fish, B Sarah CARLSON Unavailable Unavailable Fish, B Sarah CARLSON Unavailable Unavailable Fish, B Sarah CARLSON Unavailable Unavailable Fish, B Saarh CARLSON Unavailable [...] Lanny Smith MD Unavailable Unavailable Fish, Lanny Smtih MD Unavailable Unavailable Fish, Lanny Smith MD [...] Sarah MD Unavailable Unavailable Alex Mae Unavailable [phone] Alex Mae Unavailable [phone] Alex Mae Unavailable [phone] Alex Mae Unavailable [phone] Alex Mae Unavailable [phone] Alex Mae Unavailable [phone] Campanaro, Mare Deborah PA Unavailable Unavailable Campanaro, [...] is protected by Article 27-F of the [place] State Public Health law. If you continue you may have access to information: Regarding HIV / AIDS; Provided by facilities licensed or operated by the [facility] Office of Mental Health; or Provided by the [facility] Office for People With Developmental Disabilities. If such information is present, then the following [facility] mandated warning applies: This information has been [...] law may result in a fine or correction sentence or both. A general authorization for the release of medical or other information is NOT sufficient authorization for further disc losure. Family History Family Member Name Family Member Gender Family Member Status Date o f Status Description Data Source(s) Unknown Female Problem MEDENT ([facility]) Unknown Female Problem MEDENT ([facility]) Unknown Female Problem MEDENT ([facility]) Encounters Encounter Providers Location Date Indications Data Source(s ) Outpatient Attender: Carlos SOTELO 07/09/20 07:33:41 AM EDT - 07/09/2021 08:05:52 AM EDT DocuTap ([facility] ) Outpatient Attender: TRIP BARAKAT 06/06 05:59:04 PM EDT - 06/29/2021 07:05:45 PM EDT [facility] ([facility] ) Preadmit Attender: Mickey Nash PA-C 06/09/2021 05:42:00 [facility] Outpatient Attender: Alex Mae 06/02 11:55:14 AM EDT - 06/02/2021 01:04:09 PM EDT [facility] ([facility] ) Outpatient Attender: Paloma Monreal MD [facility]PSCAORT-CPSCANEU 05/22 02:59:00 PM EDT - 05/22/2021 03:00:00 PM EDT [facility] Patient discharged. Nyla Boland, STEEL ROLLER: [address], [address], [place] [address], Ph. Attender: Nyla Boland HUMAN RESOURCES TALENT MANAGER [place] - [facility] 05/05/2021 12:00:00 AM EDT ATHE NA ([facility]) Nyla Boland, STEEL ROLLER: [address], [place] [address], Ph. Attender: Nyla Boland [facility] 04/10/2021 12:00:00 AM EDT ATHE NA ([facility]) Nyla Boland, STEEL ROLLER: [address], [place] [address], Ph. Attender: Nyla Boland [facility] 04/10/2021 12:00:00 AM EDT ATHAvi NA ([facility]) Outpatient Attender: Carlos SOTELO 04/08/20 04:40:14 PM EDT - 04/08/2021 05:36:44 PM EDT [facility] ([facility] ) Outpatient Attender: Sarah Lee MD Physical Therapy 02/20 03:30:00 PM EDT MEG ([facility] ) Nyla Boland, STEEL ROLLER: [address], [place] [address], Ph. Attender: Nyla Boland [facility] 02/13/2021 12:00:00 AM EDT ATHE NA ([facility]) Nyla Boland, STEEL ROLLER: [address], [place] [address], Ph. Attender: Nyla Boland [facility] 02/13/2021 12:00:00 AM EDT ATHE NA ([facility]) Nyla Boland, STEEL ROLLER: [address], [place] [address], Ph. Attender: Nyla CASTRO [place] - [facility] 02/13/2021 12:00:00 AM EDT ATHE NA ([facility]) Stephon Cullen MD: [address], [place] [address], Ph. Attender: Stephon Cullen [place] - [facility] 01/26/2021 12:00:00 AM EDT ROLANDO ([facility]) Stephon Cullen MD: [address], [address] [place] [address], Ph. Attender: Stephon Cullen [place] - [facility] 01/26/2021 12:00:00 AM EDT ROLANDO ([facility]) Stephon Cullen MD: [address], [address] [place], [place] [address], Ph. Attender: Stephon Cullen [place] - [facility] 01/26/2021 12:00:00 AM EDT ROLANDO ([facility]) Stephon Cullen MD: [address], [address] [place], [place] [address], Ph. Attender: Stephon Cullen [place] - [facility] 01/26/2021 12:00:00 AM EDT ROLANDO ([facility]) Outpatient Attender: Carmen SOTELO [facility] 01/23/2021 09:00:00 AM EDT MEDENT ([facility]) [place] [address] [facility] [address] 01/21/2021 12:00:00 AM EDT eCW1 ([facility]) Nyla Boland, STEEL ROLLER: [address], [address], [place] [address], Ph. Attender: Nyla Boland [facility] 01/16/2021 12:00:00 AM EDT ATHE NA ([facility]) Nyla Boland, STEEL ROLLER: [address], [address], [place] [address], Ph. Attender: Nyla Boland [facility] - [facility] 01/16/2021 12:00:00 AM EDT ATHE NA ([facility]) Nyla Boland, STEEL ROLLER: [address], [address], [place] [address], Ph. Attender: Nyla Boland [facility] 01/16/2021 12:00:00 AM EDT ATHE NA ([facility]) Nyla Boland, STEEL ROLLER: [address], [address], [place] [address], Ph. Attender: Nyla Boland [facility] 01/16/2021 12:00:00 AM EDT ATHE NA ([facility]) Nyla Boland, STEEL ROLLER: [address], [address], [place] [address], Ph. Attender: Nyla Boland [facility] 01/16/2021 12:00:00 AM EDT ATHE NA ([facility]) Outpatient Attender: KYLEIGH [facility] 01/15/2021 03:35:00 PM EDT MEG ([facility]) Outpatient Attender: LEXX JEWELL [facility] 01/12 11:17:28 AM EDT - 01/12/2021 11:59:39 AM EDT [facility] ([facility] ) [place] [address] [address] 01/08/2021 12:00:00 AM EDT eCW1 ([facility]) [place] [address] [address] 12/29/2020 12:00:00 AM EDT eCW1 ([facility]) Nyla Boland, STEEL ROLLER: [address], [place] [address], Ph. Attender: Nyla Boland [facility] - [facility] 12/19/2020 12:00:00 AM EDT ATHAvi GUERRERO ([facility]) Nyla Boland, STEEL ROLLER: [address], [place] [address], Ph. Attender: Nyla Boland [facility] 12/19/2020 12:00:00 AM EDT ATHE NA ([facility]) Nyal Boland, STEEL ROLLER: [address], [place] [address], Ph. Attender: Nyla Boland [facility] 12/19/2020 12:00:00 AM EDT ATHE NA ([facility]) Nyla Boland, STEEL ROLLER: [address], [place] [address], Ph. Attender: Nyla Boland [facility] - [facility] 12/19/2020 12:00:00 AM EDT ATHAvi NA ([facility]) Nyla Boland, STEEL ROLLER: [address], [place] [address], Ph. Attender: Nyla Boland [facility] - [facility] 12/19/2020 12:00:00 AM EDT ATHE NA ([facility]) Nyla Boland, STEEL ROLLER: [address], [address], [place] [address], Ph. Attender: Nyla Boland [facility] - [facility] 12/19/2020 12:00:00 AM EDT ATHAvi NA ([facility]) Stephon Cullen MD: [address], [place] [address], Ph. Attender: Stephon Cullen [place] - [facility] 12/04/2020 12:00:00 AM EDT ROLANDO ([facility]) Stephon Cullen MD: [address], [place] [address], Ph. Attender: Stephon Cullen [place] - [facility] 12/04/2020 12:00:00 AM EDT ROLANDO ([facility]) Stephon Cullen MD: [address], [place] [address], Ph. Attender: Stephon Cullen [place] - [facility] 12/04/2020 12:00:00 AM EDT ROLANDO ([facility]) Stephon Cullen MD: [address], [place] [address], Ph. Attender: Stephon Cullen [place] - [facility] 12/04/2020 12:00:00 AM EDT ROLANDO ([facility]) Stephon Cullen MD: [address], [address], [place] [address], Ph. Attender: Stephon Cullen [place] - [facility] 12/04/2020 12:00:00 AM EDT ROLANDO ([facility]) Stephon Cullen MD: [address], [place] [address], Ph. Attender: Stephon Cullen [place] - [facility] 12/04/2020 12:00:00 AM EDT ROLANDO ([facility]) Stephon Cullen MD: [address], [place] [address], Ph. Attender: Stephon Cullen [place] - [facility] 12/04/2020 12:00:00 AM EDT ROLANDO ([facility]) Outpatient Attender: LESA FLOR NP Physical Therapy 08:45:00 AM EDT MEDENT ([facility]) Stephon Cullen MD: [address], [place] [address], Ph. [phone] Attender: Stephon VILLARREAL - [facility] 12/01/2020 12:00:00 AM EDT ROLANDO ([facility]) Stephon Cullen MD: [address], [place] [address], Ph. [phone] Attender: Stephon VILLARREAL - [facility] 12/01/2020 12:00:00 AM EDT ROLANDO ([facility]) Stephon Cullen MD: [address], [place] [address], Ph. [phone] Attender: Stephon VILLARREAL - [facility] 12/01/2020 12:00:00 AM EDT ROLANDO ([facility]) Stephon Cullen MD: [address], [place] [address], Ph. [phone] Attender: Stephon [place]ullen [place] - [facility] 12/01/2020 12:00:00 AM EDT ROLANDO ([facility]) Stephon Cullen MD: [address], [place] [address], Ph. [phone] Attender: Stephon [place]ullen [place] - [facility] 12/01/2020 12:00:00 AM EDT ROLANDO ([facility]) Setphon Cullen MD: [address], [place] [address], Ph. [phone] Attender: Stephon [place]ullen [place] - [facility] 12/01/2020 12:00:00 AM EDT ROLANDO ([facility]) Stephon Cullen MD: [address], [place] [address], Ph. [phone] Attender: Stephon Cullen [place] - [facility] 12/01/2020 12:00:00 AM EDT ROLANDO ([facility]) Stephon Cullen MD: [address], [place] [address], Ph. [phone] Attender: Stephon Cullen [place] - [facility] 12/01/2020 12:00:00 AM EDT ROLANDO ([facility]) Nyla Boland, STEEL ROLLER: [address], [address], [place] [address], Ph. [facility]: [facility] 11/27/2020 12:00:00 AM EDT ATHE NA ([facility]) Nyla Boland, STEEL ROLLER: [address], [address], [place] [address], Ph. Attender: Nyla Boland [facility] - [facility] 11/27/2020 12:00:00 AM EDT ATHE NA ([facility]) Nyla Boland, STEEL ROLLER: [address], [address], [place] [address], Ph. Attender: Nyla Boland [facility] - [facility] 11/27/2020 12:00:00 AM EDT ATHE NA ([facility]) Nyla Boland, STEEL ROLLER: [address], [place] [address], Ph. Attender: Nyla Boland [facility] - [facility] 11/27/2020 12:00:00 AM EDT ATHE NA ([facility]) Nyla Boland, STEEL ROLLER: [address], [place] [address], Ph. Attender: Nyla Boland [facility] - [facility] 11/27/2020 12:00:00 AM EDT ATHE NA ([facility]) Nyla Boland, STEEL ROLLER: [address], [address], [place] [address], Ph. Attender: Nyla Boland [facility] - [facility] 11/27/2020 12:00:00 AM EDT ATHE NA ([facility]) Nyla Boland, STEEL ROLLER: [address], [address], [place] [address], Ph. Attender: Nyla Boland [facility] - [facility] 11/27/2020 12:00:00 AM EDT ATHE NA ([facility]) Nyla Boland, STEEL ROLLER: [address], [place] [address], Ph. Attender: Nyla Boland [facility] - [facility] 11/27/2020 12:00:00 AM EDT ATHE NA ([facility]) Nyla Boland, STEEL ROLLER: [address], [place] [address], Ph. Attender: Nyla Boland [facility] 11/27/2020 12:00:00 AM EDT ATHE NA ([facility]) Outpatient Attender: NADIA RODAS NP 11/03 04:40:12 PM EDT - 11/20/2020 05:44:42 PM EDT Mavis ([facility] ) Nyla Boland, STEEL ROLLER: [address], [place] [address], Ph. Attender: Nyla Boland [facility] - [facility] 11/14/2020 12:00:00 AM EST ATHE NA ([facility]) Nyla Boland, STEEL ROLLER: [address], [place] [address], Ph. Attender: Nyla Boland [facility] - [facility] 11/14/2020 12:00:00 AM EST ATHE NA ([facility]) Nyla Boland, STEEL ROLLER: [address], [place] [address], Ph. Attender: Nyla Boland [facility] - [facility] 11/14/2020 12:00:00 AM EST ATHE NA ([facility]) Nyla Boland, STEEL ROLLER: [address], [place] [address], Ph. Attender: Nyla Boland [facility] - [facility] 11/14/2020 12:00:00 AM EST ATHE NA ([facility]) Nyla Boland, STEEL ROLLER: [address]124 [address], [place] [address], Ph. Attender: Nyla Boland [facility] - [facility] 11/14/2020 12:00:00 AM EST ATHE NA ([facility]) Nyla Boland, STEEL ROLLER: [address], [place] [address], Ph. Attender: Nyla Boland [facility] - [facility] 11/14/2020 12:00:00 AM EST ATHE NA ([facility]) Nyla Boland, STEEL ROLLER: [address]135 [address], [place] [address], Ph. Attender: Nyla Boland [facility] - [facility] 11/14/2020 12:00:00 AM EST ATHE NA ([facility]) Nyla Boland, STEEL ROLLER: [address], [place] [address], Ph. Attender: Nyla Boland [facility] - [facility] 11/14/2020 12:00:00 AM EST ATHE NA ([facility]) Nyla Boland, STEEL ROLLER: [address]32 [address], [address], [place] [address], Ph. Attender: Nyla Boland [facility] 11/14/2020 12:00:00 AM EST ATHE NA ([facility]) Nyla Boland, STEEL ROLLER: [address]70 [address], [address], [place] [address], Ph. Attender: Nyla Boland [facility] - [facility] 11/14/2020 12:00:00 AM EST ATHE NA ([facility]) Outpatient Attender: Marva SOTELO CPSCAORT-CPSCANEU 0 11/13/2020 11:16:00 AM EST - 11/13/2020 11:17:00 AM EST [facility] Patient discharged. Outpatient Attender: Gena barragany 11/07/2020 09:45:00 AM EST MEDENT ([facility]) Nyla Boland, STEEL ROLLER: [address], [place] [address], Ph. Attender: Nyla Boland [facility] 09/26/2020 12:00:00 AM EST ATHE NA ([facility]) Nyla Boland, STEEL ROLLER: [address], [address], [place] [address], Ph. Attender: Nyla Boland [facility] 09/26/2020 12:00:00 AM EST ATHE NA ([facility]) Nyla Boland, STEEL ROLLER: [address]367 [address], [place] [address], Ph. Attender: Nyla Boland [employer] [place] - [facility] 09/26/2020 12:00:00 AM EST ATHE NA ([facility]) Nyla Boland, STEEL ROLLER: [address], [place] [address], Ph. Attender: Nyla Boland [facility] - [facility] 09/26/2020 12:00:00 AM EST ATHE NA ([facility]) Nyla Boland, STEEL ROLLER: [address]663 [address], [place] [address], Ph. Attender: Nyla Boland [facility] - [facility] 09/26/2020 12:00:00 AM EST ATHE NA ([facility]) Nyla Boland, STEEL ROLLER: [address]69 [address], [place] [address], Ph. Attender: Nyla Boland [facility] - [facility] 09/26/2020 12:00:00 AM EST ATHE NA ([facility]) Nyla Boland, STEEL ROLLER: [address]463 [address], [place] [address], Ph. Attender: Nyla Boland [facility] - [facility] 09/26/2020 12:00:00 AM EST ATHE NA ([facility]) Nyla Boland, STEEL ROLLER: [address]64 [address], [address], [place] [address], Ph. Attender: Nyla Boland [facility] - [facility] 09/26/2020 12:00:00 AM EST ATHE NA ([facility]) Nyla Boland, STEEL ROLLER: [address]41 [address], [address], [place] [address], Ph. Attender: Nyla Boland [facility] - [facility] 09/26/2020 12:00:00 AM EST ATHE NA ([facility]) Nyla Boland, STEEL ROLLER: [address], [place] [address], Ph. Attender: Nyla Boland [facility] - [facility] 09/26/2020 12:00:00 AM EST ATHE NA ([facility]) Nyla Boland, STEEL ROLLER: [address]128 [address], [place] [address], Ph. Attender: Nyla Boland [facility] - [facility] 09/26/2020 12:00:00 AM EST ATHE NA ([facility]) Stephon Cullen MD: 95453 [address], [place] [address], Ph. Attender: Stephon Cullen [place] - [facility] 09/11/2020 12:00:00 AM EST ROLANDO ([facility]) Stephon Cullen MD: 56453 [address], [place] [address], Ph. Attender: Stephon Cullen [place] - [facility] 09/11/2020 12:00:00 AM EST ROLANDO ([facility]) Stephon Cullen MD: 49989 [address], [place] [address], Ph. Attender: Stephon Cullen [place] - [facility] 09/11/2020 12:00:00 AM EST ROLANDO ([facility]) Stephon Cullen MD: 97175 [address], [address], [place] [address], Ph. Attender: Stephon Cullen [place] - [facility] 09/11/2020 12:00:00 AM EST ROLANDO ([facility]) Stephon Cullen MD: 95435 [address], [place] [address], Ph. Attender: Stephon Cullen [place] - [facility] 09/11/2020 12:00:00 AM EST ROLANDO ([facility]) Stephon Cullen MD: 13197 [address], [place] [address], Ph. Attender: Stephon Cullen [place] - [facility] 09/11/2020 12:00:00 AM EST ROLANDO ([facility]) Stephon Cullen MD: 68219 [address], [place] [address], Ph. Attender: Stephon Cullen [place] - [facility] 09/11/2020 12:00:00 AM EST ROLANDO ([facility]) Stephon Cullen MD: 93375 [address], [place] [address], Ph. Attender: Stephon Cullen [place] - [facility] 09/11/2020 12:00:00 AM EST ROLANDO ([facility]) Stephon Cullen MD: 98395 [address], [place] [address], Ph. Attender: Stephon VILLARREAL - [facility] 09/11/2020 12:00:00 AM EST ROLANDO ([facility]) Stephon Cullen MD: 87966 [address], [place] [address], Ph. Attender: Stephon Cullen [place] - [facility] 09/11/2020 12:00:00 AM EST ROLANDO ([facility]) Stephon Cullen MD: 08243 [address], [place] [address], Ph. Attender: Stephon Cullen [place] - [facility] 09/11/2020 12:00:00 AM EST ROLANDO ([facility]) Outpatient Attender: LESA FLOR NP Physical Therapy 08:00:00 AM EST MEDENT ([facility]) Stephon Cullen MD: 26939 [address], [facility] [place] [address], Ph. [phone] Attender: Stephon VILLARREAL - [facility] 09/08/2020 12:00:00 AM EST ROLANDO ([facility]) Stephon Cullen MD: 13942 [address], [place] [address], Ph. [phone] Attender: Stephon VILLARREAL - [facility] 09/08/2020 12:00:00 AM EST ROLANDO ([facility]) Stephon Cullen MD: 40030 [address], [place] [address], Ph. [phone] Attender: Stephon Cullen [place] - [facility] 09/08/2020 12:00:00 AM EST ROLANDO ([facility]) Stephon Cullen MD: 33446 [address], [place] [address], Ph. [phone] Attender: Stephon VILLARREAL - [facility] 09/08/2020 12:00:00 AM EST ROLANDO ([facility]) Stephon Cullen MD: 17185 [address], [address], [place] [address], Ph. [phone] Attender: Stephon Cullen [place] - [facility] 09/08/2020 12:00:00 AM EST ROLANOD ([facility]) Stephon Cullen MD: 67718 [address], [address], [place] [address], Ph. [phone] Attender: Stephon Cullen [place] - [facility] 09/08/2020 12:00:00 AM EST ROLANDO ([facility]) Stephon Cullen MD: 24665 [address], [place] [address], Ph. [phone] Attender: Stephon Cullen [place] - [facility] 09/08/2020 12:00:00 AM EST ROLANDO ([facility]) Stephon Cullen MD: 73623 [address], [address], [place] [address], Ph. [phone] Attender: Stephon Cullen [place] - [facility] 09/08/2020 12:00:00 AM EST ROLANDO ([facility]) Stephon Cullen MD: 84156 [address], [address], [place] [address], Ph. [phone] Attender: Stephon Cullen [place] - [facility] 09/08/2020 12:00:00 AM EST ROLANDO ([facility]) Stephon Cullen MD: 21789 [address], [place] [address], Ph. [phone] Attender: Stephon Cullen [place] - [facility] 09/08/2020 12:00:00 AM EST ROLANDO ([facility]) Stephon Cullen MD: 21992 [address], [address], [place] [address], Ph. [phone] Attender: Stephon Cullen MD [place] - [facility] 09/08/2020 12:00:00 AM EST ROLANDO ([facility]) Stephon Cullen MD: 17246 [address], [address], [place] [address], Ph. [phone] Attender: Stephon Cullen [place] - [facility] 09/08/2020 12:00:00 AM EST ROLANDO ([facility]) Stephon Cullen MD: 61184 [address], [address], [place] [address], Ph. Attender: Stephon Cullen [place] - [facility] 08/18/2020 12:00:00 AM EST ROLANDO ([facility]) Stephon Cullen MD: 26272 [address], [address], [place] [address], Ph. Attender: Stephon VILLARREAL - [facility] 08/18/2020 12:00:00 AM EST ROLANDO ([facility]) Stephon Cullen MD: 30867 [address], [address], [place] [address], Ph. Attender: Stephon Cullen [place] - [facility] 08/18/2020 12:00:00 AM EST ROLANDO ([facility]) Stephon Cullen MD: 28524 [address], [address], [place] [address], Ph. Attender: Stephon VILLARREAL - [facility] 08/18/2020 12:00:00 AM EST ROLANDO ([facility]) Stephon Cullen MD: 65177 [address], [address], [place] [address], Ph. Attender: Stephon Cullen MD [place] - [facility] 08/18/2020 12:00:00 AM EST ROLANDO ([facility]) Stephon Cullen MD: 43839 [address], [address], [place] [address], Ph. Attender: Stephon VILLARREAL - [facility] 08/18/2020 12:00:00 AM EST ROLANDO ([facility]) Stephon Cullen MD: 16204 [address], [address], [place] [address], Ph. Attender: Stephon VILLARREAL - [facility] 08/18/2020 12:00:00 AM EST ROLANDO ([facility]) Stephon Cullen MD: 19666 [address], [address], [place] [address], Ph. Attender: Stephon VILLARREAL - [facility] 08/18/2020 12:00:00 AM EST ROLANDO ([facility]) Stephon Cullen MD: 67469 [address], [address], [place] [address], Ph. Attender: Stephon VILLARREAL - [facility] 08/18/2020 12:00:00 AM EST ROLANDO ([facility]) Stephon Cullen MD: 29418 [address], [address], [place] [address], Ph. Attender: Stephon VILLARREAL - [facility] 08/18/2020 12:00:00 AM EST ROLANDO ([facility]) Stephon Cullen MD: 88623 [address], [address], [place] [address], Ph. Attender: Stephon Cullen MD [place] - [facility] 08/18/2020 12:00:00 AM EST ROLANDO ([facility]) Stephon Cullen MD: 28784 [address], [place] [address], Ph. Attender: Stephon Cullen MD [place] - [facility] 08/18/2020 12:00:00 AM EST ROLANDO ([facility]) Stephon Cullen MD: 08450 [address], [address], [place] [address], Ph. Attender: Stephon VILLARREAL - [facility] 08/18/2020 12:00:00 AM EST ROLANDO ([facility]) Stephon Cullen MD: 46321 [address], [place] [address], Ph. [phone] Attender: Stephon Cullen MD [place] - [facility] 08/13/2020 12:00:00 AM EST ROLANDO ([facility]) Stephon Cullen MD: 72256 [address], [address], [place] [address], Ph. [phone] Attender: Stephon Cullen MD [place] - [facility] 08/13/2020 12:00:00 AM EST ROLANDO ([facility]) Stephon Cullen MD: 25728 [address], [place] [address], Ph. [phone] Attender: Stephon VILLARREAL - [facility] 08/13/2020 12:00:00 AM EST ROLANDO ([facility]) Stephon Cullen MD: 98591 [address], [place] [address], Ph. [phone] Attender: Stephon Cullen MD [place] - [facility] 08/13/2020 12:00:00 AM EST ROLANDO ([facility]) Stephon Cullen MD: 13912 [address], [address], [place] [address], Ph. [phone] Attender: Stephon Cullen MD [place] - [facility] 08/13/2020 12:00:00 AM EST ROLANDO ([facility]) Stephon Cullen MD: 32972 [address], [address], [place] [address], Ph. [phone] Attender: Stephon Cullen MD [place] - [facility] 08/13/2020 12:00:00 AM EST ROLANDO ([facility]) Stephon Cullen MD: 65615 [address], [address], [place] [address], Ph. [phone] Attender: Stephon VILLARREAL - [facility] 08/13/2020 12:00:00 AM EST ROLANDO ([facility]) Stephon Cullen MD: 51830 [address], [address], [place] [address], Ph. [phone] Attender: Stephon Cullen MD [place] - [facility] 08/13/2020 12:00:00 AM EST ROLANDO ([facility]) Stephon Cullen MD: 72201 [address], [place] [address], Ph. [phone] Attender: Stephon Cullen MD [place] - [facility] 08/13/2020 12:00:00 AM EST ROLANDO ([facility]) Stephon Cullen MD: 62753 [address], [address], [place] [address], Ph. [phone] Attender: Stephon Cullen MD [place] - [facility] 08/13/2020 12:00:00 AM EST ROLANDO ([facility]) Stephon Cullen MD: 68865 [address], [address], [place] [address], Ph. [phone] Attender: Stephon Cullen MD [place] - [facility] 08/13/2020 12:00:00 AM EST ROLANDO ([facility]) Stephon Cullen MD: 52377 [address], [place] [address], Ph. [phone] Attender: Stephon Cullen MD [place] - [facility] 08/13/2020 12:00:00 AM EST ROLANDO ([facility]) Stephon Cullen MD: 58411 [address], [place] [address], Ph. [phone] Attender: Stephon Cullen MD [place] - [facility] 08/13/2020 12:00:00 AM EST ROLANDO ([facility]) Stephon Cullen MD: 98763 [address], [place] [address], Ph. [phone] Attender: Stephon Cullen MD [place] - [facility] 08/13/2020 12:00:00 AM EST ROLANDO ([facility]) Nyla Boland, STEEL ROLLER: 14727 [address], [facility] [place] [address], Ph. Attender: Nyla Boland [facility] 08/06/2020 12:00:00 AM EST ATHE NA ([facility]) Nyla Boland, STEEL ROLLER: 37871 [address], [place] [address], Ph. Attender: Nyla Boland [facility] - [facility] 08/06/2020 12:00:00 AM EST ATHE NA ([facility]) Nyla Boland, STEEL ROLLER: 69140 [address], [place] [address], Ph. Attender: Nyla Boland [facility] - [facility] 08/06/2020 12:00:00 AM EST ATHE NA ([facility]) Nyla Boland, STEEL ROLLER: 88167 [address], [place] [address], Ph. Attender: Nyla Boland [facility] - [facility] 08/06/2020 12:00:00 AM EST ATHE NA ([facility]) Nyla Boland, STEEL ROLLER: 41968 [address], [place] [address], Ph. Attender: Nyla Boland [facility] - [facility] 08/06/2020 12:00:00 AM EST ATHE NA ([facility]) Nyla Boland, STEEL ROLLER: 90326 [address], [place] [address], Ph. Attender: Nyla Boland [facility] - [facility] 08/06/2020 12:00:00 AM EST ATHE NA ([facility]) Nyla Boland, STEEL ROLLER: 57763 [address], [place] [address], Ph. Attender: Nyla Boland [facility] - [facility] 08/06/2020 12:00:00 AM EST ATHE NA ([facility]) Nyla Boland, STEEL ROLLER: 26417 [address], [place] [address], Ph. Attender: Nyla Boland [facility] - [facility] 08/06/2020 12:00:00 AM EST ATHE NA ([facility]) Nyla Boland, STEEL ROLLER: 43514 [address], [address], [place] [address], Ph. Attender: Nyla Boland [facility] - [facility] 08/06/2020 12:00:00 AM EST ATHE NA ([facility]) Nyla Boland, STEEL ROLLER: 92002 [address], [address], [place] [address], Ph. Attender: Nyla Boland [facility] - [facility] 08/06/2020 12:00:00 AM EST ATHE NA ([facility]) Nyla Boland, STEEL ROLLER: 30548 [address], [place] [address], Ph. Attender: Nyla Boland [facility] - [facility] 08/06/2020 12:00:00 AM EST ATHE NA ([facility]) Nyla Boland, STEEL ROLLER: 81765 [address], [place] [address], Ph. Attender: Nyla Boland [facility] - [facility] 08/06/2020 12:00:00 AM EST ATHE NA ([facility]) Nyla Boland, STEEL ROLLER: 44176 [address], [address], [place] [address], Ph. Attender: Nyla Boland [facility] - [facility] 08/06/2020 12:00:00 AM EST ATHE NA ([facility]) Nyla Boland, STEEL ROLLER: 23090 [address], [place] [address], Ph. Attender: Nylaavi Perlajose [facility] - [facility] 08/06/2020 12:00:00 AM EST ATHE NA ([facility]) Nyla Boland, STEEL ROLLER: 14331 [address], [place] [address], Ph. Attender: Nyla Boland [facility] - [facility] 08/06/2020 12:00:00 AM EST ATHE NA ([facility] [facility] Outpatient Attender: Carmen SOTELO [facility] 07/22/2020 08:00:00 AM EST MEDENT ([facility] raymundo, ) Nyla Boland, STEEL ROLLER: [address], [place] [address], Ph. Attender: Nyla Boland [facility] 07/03/2020 12:00:00 AM EDT ATHE NA ([facility]) Nyla Bloand, STEEL ROLLER: [address], [place] [address], Ph. Attender: Nyla Boland [facility] 07/03/2020 12:00:00 AM EDT ATHE NA ([facility]) Nyla Boland, STEEL ROLLER: [address], [place] [address], Ph. Attender: Nyla Boland [facility] - [facility] 07/03/2020 12:00:00 AM EDT ATHE NA ([facility]) Nyla Boland, STEEL ROLLER: [address], [place] [address], Ph. Attender: Nyla Boland [facility] 07/03/2020 12:00:00 AM EDT ATHE NA ([facility]) Nyla Boland, STEEL ROLLER: [address], [address], [place] [address], Ph. Attender: Nyla Boland [facility] 07/03/2020 12:00:00 AM EDT ATHE NA ([facility]) Nyla Boland, STEEL ROLLER: [address], [address], [place] [address], Ph. Attender: Nyla Boland [facility] 07/03/2020 12:00:00 AM EDT ATHE NA ([facility]) Nyla Boland, STEEL ROLLER: [address], [place] [address], Ph. Attender: Nyla oBland [facility] 07/03/2020 12:00:00 AM EDT ATHE NA ([facility]) Nyla Boland, STEEL ROLLER: [address], [place] [address], Ph. Attender: Nyla Boland [facility] 07/03/2020 12:00:00 AM EDT ATHE NA ([facility]) Nyla Boland, STEEL ROLLER: [address], [address], [place] [address], Ph. Attender: Nyla Perlajose [facility] 07/03/2020 12:00:00 AM EDT ATHE NA ([facility]) Nyla Boland, STEEL ROLLER: [address], [address], [place] [address], Ph. Attender: Nyla Boland [facility] - [facility] 07/03/2020 12:00:00 AM EDT ATHE NA ([facility]) Nyla Boland, STEEL ROLLER: [address], [place] [address], Ph. Attender: Nyla Boland [facility] - [facility] 07/03/2020 12:00:00 AM EDT ATHE NA ([facility]) Nyla Boland, STEEL ROLLER: [address], [place] [address], Ph. Attender: Nyla Boland [facility] - [facility] 07/03/2020 12:00:00 AM EDT ATHE NA ([facility]) Nyla Boland, STEEL ROLLER: [address], [place] [address], Ph. Attender: Nyla Boland [facility] - [facility] 07/03/2020 12:00:00 AM EDT ATHE NA ([facility]) Nyla Boland, STEEL ROLLER: [address], [place] [address], Ph. Attender: Nyla Boland [facility] - [facility] 07/03/2020 12:00:00 AM EDT ATHE NA ([facility]) Nyla Boland, STEEL ROLLER: [address], [place] [address], Ph. Attender: Nyla Boland [facility] - [facility] 07/03/2020 12:00:00 AM EDT ATHE NA ([facility]) Nyla Woodson Jackiecolleen, STEEL ROLLER: [address], [address], [place] [address], Ph. Attender: Nyla CASTRO [place] - [facility] 07/03/2020 12:00:00 AM EDT ATHE NA ([facility]) Stephon Cullen MD: [address]09 [address], [address], [place] [address], Ph. Attender: Stephon Cullen [place] - [facility] 06/20/2020 12:00:00 AM EDT ROLANDO ([facility]) Stephon Cullen MD: 50192 [address], [address], [place] [address], Ph. Attender: Stephon Cullen [place] - [facility] 06/20/2020 12:00:00 AM EDT ROLANDO ([facility]) Stephon Cullen MD: 73915 [address], [address], [place] [address], Ph. Attender: Stephon Cullen [place] - [facility] 06/20/2020 12:00:00 AM EDT ROLANDO ([facility]) Stephon Cullen MD: 90053 [address], [place] [address], Ph. Attender: Stephon Cullen [place] - [facility] 06/20/2020 12:00:00 AM EDT ROLANDO ([facility]) Stephon Cullen MD: 94214 [address], [address], [place] [address], Ph. Attender: Stephon Cullen [place] - [facility] 06/20/2020 12:00:00 AM EDT ROLANDO ([facility]) Stephon Cullen MD: 43772 [address], [address], [place] [address], Ph. Attender: Stephon Cullen [place] - [facility] 06/20/2020 12:00:00 AM EDT ROLANDO ([facility]) Stephon Cullen MD: 17426 [address], [address], [place] [address], Ph. Attender: Stephon [place]ullen [place] - [facility] 06/20/2020 12:00:00 AM EDT ROLANDO ([facility]) Stephon Cullen MD: 22177 [address], [address], [place] [address], Ph. Attender: Stephon [place]ullen [place] - [facility] 06/20/2020 12:00:00 AM EDT ROLANDO ([facility]) Stephon Cullen MD: 93788 [address], [address], [place] [address], Ph. Attender: Stephon VILLARREAL - [facility] 06/20/2020 12:00:00 AM EDT ROLANDO ([facility]) Stephon Cullen MD: 69836 [address], [address], [place] [address], Ph. Attender: Stephon VILLARREAL - [facility] 06/20/2020 12:00:00 AM EDT ROLANDO ([facility]) Stephon Cullen MD: 74083 [address], [address], [place] [address], Ph. Attender: Stephon VILLARREAL - [facility] 06/20/2020 12:00:00 AM EDT ROLANDO ([facility]) Stephon Cullen MD: 41623 [address], [address], [place] [address], Ph. Attender: Stephon [place]ullen [place] - [facility] 06/20/2020 12:00:00 AM EDT ROLANDO ([facility]) Stephon Cullen MD: 47177 [address], [address], [place] [address], Ph. Attender: Stephon [place]ullen [place] - [facility] 06/20/2020 12:00:00 AM EDT ROLANDO ([facility]) Stephon Cullen MD: 02120 [address], [address], [place] [address], Ph. Attender: Stephon [place]ullen [place] - [facility] 06/20/2020 12:00:00 AM EDT ROLANDO ([facility]) Stephon Cullen MD: 14710 [address], [address], [place] [address], Ph. Attender: Stephon [place]ullen [place] - [facility] 06/20/2020 12:00:00 AM EDT ROLANDO ([facility]) Stephon Cullen MD: 21576 [address], [address], [place] [address], Ph. Attender: Stephon VILLARREAL - [facility] 06/20/2020 12:00:00 AM EDT ROLANDO ([facility]) Stephon Cullen MD: 44031 [address], [address], [place] [address], Ph. Attender: Stephon VILLARREAL - [facility] 06/20/2020 12:00:00 AM EDT ROLANDO ([facility]) Stephon Cullen MD: 32262 [address], [address], [place] [address], Ph. [phone] Attender: Stephon [place]ullen [place] - [facility] 06/16/2020 12:00:00 AM EDT ROLANDO ([facility]) Stephon Cullen MD: 90080 [address], [address], [place] [address], Ph. [phone] Attender: Stephon VILLARREAL - [facility] 06/16/2020 12:00:00 AM EDT ROLANDO ([facility]) Stephon Cullen MD: 60001 [address], [address], [place] [address], Ph. [phone] Attender: Stephon [place]ullen [place] - [facility] 06/16/2020 12:00:00 AM EDT ROLANDO ([facility]) Stephon Cullen MD: 89711 [address], [address], [place] [address], Ph. [phone] Attender: Stephon [place]ullen [place] - [facility] 06/16/2020 12:00:00 AM EDT ROLANDO ([facility]) Stephon Cullen MD: 72351 [address], [address], [place] [address], Ph. [phone] Attender: Stephon VILLARREAL - [facility] 06/16/2020 12:00:00 AM EDT ROLANDO ([facility]) Stephon Cullen MD: 10980 [address], [address], [place] [address], Ph. [phone] Attender: Stephon VILLARREAL - [facility] 06/16/2020 12:00:00 AM EDT ROLANDO ([facility]) Stephon Cullen MD: 51084 [address], [address], [place] [address], Ph. [phone] Attender: Stephon [place]ullen [place] - [facility] 06/16/2020 12:00:00 AM EDT ROLANDO ([facility]) Stephon Cullen MD: 30295 [address], [address], [place] [address], Ph. [phone] Attender: Stephon [place]ullen [place] - [facility] 06/16/2020 12:00:00 AM EDT ROLANDO ([facility]) Stephon Cullen MD: 42079 [address], [address], [place] [address], Ph. [phone] Attender: Stephon VILLARREAL - [facility] 06/16/2020 12:00:00 AM EDT ROLANDO ([facility]) Stephon Cullen MD: 40093 [address], [address], [place] [address], Ph. [phone] Attender: Stephon VILLARREAL - [facility] 06/16/2020 12:00:00 AM EDT ROLANDO ([facility]) Stephon Cullen MD: 64841 [address], [address], [place] [address], Ph. [phone] Attender: Stephon [place]ullen [place] - [facility] 06/16/2020 12:00:00 AM EDT ROLANDO ([facility]) Stephon Cullen MD: 90845 [address], [address], [place] [address], Ph. [phone] Attender: Stephon VILLARREAL - [facility] 06/16/2020 12:00:00 AM EDT ROLANDO ([facility]) Stephon Cullen MD: 20155 [address], [address], [place] [address], Ph. [phone] Attender: Stephon VILLARREAL - [facility] 06/16/2020 12:00:00 AM EDT ROLANDO ([facility]) Stephon Cullen MD: 57695 [address], [address], [place] [address], Ph. [phone] Attender: Ste[place]ullen [place] - [facility] - [facility] 06/16/2020 12:00:00 AM EDT ROLANDO ([facility]) Stephon Cullen MD: 67655 [address], [address], [place] [address], Ph. [phone] Attender: Stephon VILLARREAL - [facility] - [facility] 06/16/2020 12:00:00 AM EDT ROLANDO ([facility]) Stephon Cullen MD: 22558 [address], [address], [place] [address], Ph. [phone] Attender: Stephon VILLARREAL - [facility] - [facility] 06/16/2020 12:00:00 AM EDT ROLANDO ([facility]) Stephon Cullen MD: 99196 [address], [address], [place] [address], Ph. [phone] Attender: Stephon VILLARREAL - [facility] - [facility] 06/16/2020 12:00:00 AM EDT ROLANDO ([facility]) Stephon Cullen MD: 15809 [address], [address], [place] [address], Ph. [phone] Attender: Stephon VILLARREAL - [facility] - [facility] 06/16/2020 12:00:00 AM EDT ROLANDO ([facility]) Outpatient Attender: Deborah jaquez 06/09/2020 04:35:00 PM EDT MEDENT [facility] Stephon Cullen MD: 39849 [address], [address], [place] [address], Ph. Attender: Stephon VILLARREAL - [facility] 06/06/2020 12:00:00 AM EDT ROLANDO ([facility]) Stephon Cullen MD: 48808 [address], [address], [place] [address], Ph. Attender: Stephon VILLARREAL - [facility] 06/06/2020 12:00:00 AM EDT ROLANDO ([facility]) Stephon Cullen MD: 62610 [address], [address], [place] [address], Ph. Attender: Stephon VILLARREAL - [facility] 06/06/2020 12:00:00 AM EDT ROLANDO ([facility]) Stephon Cullen MD: 20819 [address], [address], [place] [address], Ph. Attender: Stephon VILLARREAL - [facility] 06/06/2020 12:00:00 AM EDT ROLANDO ([facility]) Stephon Cullen MD: 68039 [address], [address], [place] [address], Ph. Attender: Stephon VILLARREAL - [facility] 06/06/2020 12:00:00 AM EDT ROLANDO ([facility]) Stephon Cullen MD: 83166 [address], [address], [place] [address], Ph. Attender: Stephon VILLARREAL - [facility] 06/06/2020 12:00:00 AM EDT ROLANDO ([facility]) Stephon Cullen MD: 86230 [address], [address], [place] [address], Ph. Attender: Stephon VILLARREAL - [facility] 06/06/2020 12:00:00 AM EDT ROLANDO ([facility]) Stephon Cullen MD: 66773 [address], [address], [place] [address], Ph. Attender: Stephon VILLARREAL - [facility] 06/06/2020 12:00:00 AM EDT ROLANDO ([facility]) Stephon Cullen MD: 57359 [address], [address], [place] [address], Ph. Attender: Stephon VILLARREAL - [facility] 06/06/2020 12:00:00 AM EDT ROLANDO ([facility]) Stephon Cullen MD: 75303 [address], [address], [place] [address], Ph. Attender: Stephon VILLARREAL - [facility] 06/06/2020 12:00:00 AM EDT ROLANDO ([facility]) Stephon Cullen MD: 50892 [address], [address], [place] [address], Ph. Attender: Stephon VILLARREAL - [facility] 06/06/2020 12:00:00 AM EDT ROLANDO ([facility]) Stephon Cullen MD: 53125 [address], [address], [place] [address], Ph. Attender: Stephon VILLARREAL - [facility] 06/06/2020 12:00:00 AM EDT ROLANDO ([facility]) Stephon Cullen MD: 70618 [address], [address], [place] [address], Ph. Attender: Stephon VILLARREAL - [facility] 06/06/2020 12:00:00 AM EDT ROLANDO ([facility]) Stephon Cullen MD: 42711 [address], [address], [place] [address], Ph. Attender: Stephon VILLARREAL - [facility] 06/06/2020 12:00:00 AM EDT ROLANDO ([facility]) Stephon Cullen MD: 70078 [address], [address], [place] [address], Ph. Attender: Stephon VILLARREAL - [facility] 06/06/2020 12:00:00 AM EDT ROLANDO ([facility]) Stephon Cullen MD: 10502 [address], [address], [place] [address], Ph. Attender: Stephon VILLARREAL - [facility] 06/06/2020 12:00:00 AM EDT ROLANDO ([facility]) Stephon Cullen MD: 95736 [address], [address], [place] [address], Ph. Attender: Stephon VILLARREAL - [facility] 06/06/2020 12:00:00 AM EDT ROLANDO ([facility]) Stephon Cullen MD: 83191 [address], [address], [place] [address], Ph. Attender: Stephon VILLARREAL - [facility] 06/06/2020 12:00:00 AM EDT ROLANDO ([facility]) Stephon Cullen MD: 51063 [address], [address], [place] [address], Ph. Attender: Stephon VILLARREAL - [facility] 06/06/2020 12:00:00 AM EDT ROLANDO ([facility]) Stephon Cullen MD: 67890 [address], [address], [place] [address], Ph. [phone] Attender: Stephon Cullen [place] - [facility] 06/02/2020 12:00:00 AM EDT ROLANDO ([facility]) Stephon Cullen MD: 70931 [address], [address], [place] [address], Ph. [phone] Attender: Stephon VILLARREAL - [facility] 06/02/2020 12:00:00 AM EDT ROLANDO ([facility]) Stephon Cullen MD: 93509 [address], [address], [place] [address], Ph. [phone] Attender: Stephon VILLARREAL - [facility] 06/02/2020 12:00:00 AM EDT ROLANDO ([facility]) Stephon Cullen MD: 24414 [address], [address], [place] [address], Ph. [phone] Attender: Stephon [place]ullen [place] - [facility] 06/02/2020 12:00:00 AM EDT ROLANDO ([facility]) Stephon Cullen MD: 93815 [address], [address], [place] [address], Ph. [phone] Attender: Stephon Cullen [place] - [facility] 06/02/2020 12:00:00 AM EDT ROLANDO ([facility]) Stephon Cullen MD: 76995 [address], [address], [place] [address], Ph. [phone] Attender: Stephon VILLARREAL - [facility] 06/02/2020 12:00:00 AM EDT ROLANDO ([facility]) Stephon Cullen MD: 17591 [address], [address], [place] [address], Ph. [phone] Attender: Stephon [place]ullen [place] - [facility] 06/02/2020 12:00:00 AM EDT ROLANDO ([facility]) Stephon Cullen MD: 07209 [address], [address], [place] [address], Ph. [phone] Attender: Stephon [place]ullen [place] - [facility] 06/02/2020 12:00:00 AM EDT ROLANDO ([facility]) Stephon Cullen MD: 58102 [address], [address], [place] [address], Ph. [phone] Attender: Stephon [place]ullen [place] - [facility] 06/02/2020 12:00:00 AM EDT ROLANDO ([facility]) Stephon Cullen MD: 89814 [address], [address], [place] [address], Ph. [phone] Attender: Stephon [place]ullen [place] - [facility] 06/02/2020 12:00:00 AM EDT ROLANDO ([facility]) Stephon Cullen MD: 54159 [address], [address], [place] [address], Ph. [phone] Attender: Stephon Cullen [place] - [facility] 06/02/2020 12:00:00 AM EDT ROLANDO ([facility]) Stephon Cullen MD: 12358 [address], [address], [place] [address], Ph. [phone] Attender: Stephon Cullen [place] - [facility] 06/02/2020 12:00:00 AM EDT ROLANDO ([facility]) Stephon Cullen MD: 41041 [address], [address], [place] [address], Ph. [phone] Attender: Stephon VILLARREAL - [facility] 06/02/2020 12:00:00 AM EDT ROLANDO ([facility]) Stephon Cullen MD: 84337 [address], [address], [place] [address], Ph. [phone] Attender: Stephon VILLARREAL - [facility] 06/02/2020 12:00:00 AM EDT ROLANDO ([facility]) Stephon Cullen MD: 30752 [address], [address], [place] [address], Ph. [phone] Attender: Stephon VILLARREAL - [facility] 06/02/2020 12:00:00 AM EDT ROLANDO ([facility]) Stephon Cullen MD: 11336 [address], [address], [place] [address], Ph. [phone] Attender: Stephon VILLARREAL - [facility] 06/02/2020 12:00:00 AM EDT ROLANDO ([facility]) Stephon Cullen MD: 11281 [address], [address], [place] [address], Ph. [phone] Attender: Stephon VILLARREAL - [facility] 06/02/2020 12:00:00 AM EDT ROLANDO ([facility]) Stephon Cullen MD: 74284 [address], [address], [place] [address], Ph. [phone] Attender: Stephon VILLARREAL - [facility] 06/02/2020 12:00:00 AM EDT ROLANDO ([facility]) Stephon Cullen MD: 90866 [address], [address], [place] [address], Ph. [phone] Attender: Stephon VILLARREAL - [facility] [place] [facility] 06/02/2020 12:00:00 AM EDT ROLANDO ([facility]) Stephon Cullen MD: [address] [address], [place] [address], Ph. [phone] Attender: Stephon Cullen [place] - [facility] - [facility] 06/02/2020 12:00:00 AM EDT ROLANDO ([facility]) Immunizations Vaccine Date Status Description Data Source(s) COVID-19 VACCINE Jae 02/23/2021 12:00:00 AM EDT completed [facility] Vaccine Series Complete: YESThis Data wa s Submitted to [facility] Via tabulate. Medications Medication Brand Name Start Date Product [...] 02/20/2021 12:00:00 AM EDT act shania MEDENT ([facility] ) Ondansetron 4 MG Disintegrating [...] Ondansetron 11/07/2020 12:00:00 AM EST active MEDENT ([facility], [facility]) 225 mg/1.5 mL 11/05/2020 12:00:00 AM EST [...] 12.7mm 09/10/2020 12:00:00 AM EST active MEDENT ([facility]) Tresiba Flextouch Tresiba Flextouch 08/21/2020 12:00:00 AM EST active MEDENT ([facility]) Tresiba Flextouch Tresiba Flextouch 08/20/2020 12:00:00 AM EST completed MEDENT ([facility]) 40 mg 08/19/2020 12:00:00 AM EST tablet 30 TAKE ONE TABLET BY MOUTH EVERY DAY TAKE ONE TABLET BY MOUTH EVERY DAY SOLD: 08/23/2020 [facility] Ondansetron 4 MG Oral Tablet Ondansetron HCL 06/09/2020 12:00:00 AM E DT ORAL completed MEDENT ([facility], [facility]) Dicyclomine Hydrochloride 10 MG Oral Capsule Dicyclomine HCL 06/09/2020 12:00:00 AM EDT ORAL completed MEDENT ([facility], [facility]) 4 mg 06/09/2020 12:00:00 AM EDT tablet [...] 30 MG Oral Tablet ROLANDO ([facility]) Acetaminophen 300 MG / Codeine Phosphate 30 MG Oral Tablet acetaminophen 300 mg- codeine 30 mg tablet as needed acetaminophen 300 mg-codeine 30 mg table t as needed 04/03/2019 12:00:00 AM EDT completed acetaminophen 300 MG / codeine phosphate 30 MG Oral Tablet ROLANDO ([facility]) Acetaminophen 300 MG / Codeine Phosphate 30 MG Oral Tablet acetaminophen 300 mg- codeine 30 mg tablet as needed acetaminophen 300 mg-codeine 30 mg table t as needed 04/03/2019 12:00:00 AM EDT completed acetaminophen 300 MG / codeine phosphate 30 MG Oral Tablet ROLANDO ([facility]) Acetaminophen 300 MG / Codeine Phosphate 30 MG Oral Tablet acetaminophen 300 mg- codeine 30 mg tablet as needed acetaminophen 300 mg-codeine 30 mg table t as needed 04/03/2019 12:00:00 AM EDT completed acetaminophen 300 MG / codeine phosphate 30 MG Oral Tablet ROLANDO ([facility]) Acetaminophen 300 MG / Codeine Phosphate 30 MG Oral Tablet acetaminophen 300 mg- codeine 30 mg tablet as needed acetaminophen 300 mg-codeine 30 mg table t as needed 04/03/2019 12:00:00 AM EDT completed acetaminophen 300 MG / codeine phosphate 30 MG Oral Tablet ROLANDO ([facility]) Acetaminophen 300 MG / Codeine Phosphate 30 MG Oral Tablet acetaminophen 300 mg- codeine 30 mg tablet as needed acetaminophen 300 mg-codeine 30 mg table t as needed 04/03/2019 12:00:00 AM EDT completed acetaminophen 300 MG / codeine phosphate 30 MG Oral Tablet ROLANDO ([facility]) Acetaminophen 300 MG / Codeine Phosphate 30 MG Oral Tablet acetaminophen 300 mg- codeine 30 mg tablet as needed acetaminophen 300 mg-codeine 30 mg table t as needed 04/03/2019 12:00:00 AM EDT completed acetaminophen 300 MG / codeine phosphate 30 MG Oral Tablet ROLANDO ([facility]) Acetaminophen 300 MG / Codeine Phosphate 30 MG Oral Tablet acetaminophen 300 mg- codeine 30 mg tablet as needed acetaminophen 300 mg-codeine 30 mg table t as needed 04/03/2019 12:00:00 AM EDT completed acetaminophen 300 MG / codeine phosphate 30 MG Oral Tablet ROLANDO ([facility]) Acetaminophen 300 MG / Codeine Phosphate 30 MG Oral Tablet acetaminophen 300 mg- codeine 30 mg tablet as needed acetaminophen 300 mg-codeine 30 mg table t as needed 04/03/2019 12:00:00 AM EDT completed acetaminophen 300 MG / codeine phosphate 30 MG Oral Tablet ROLANDO ([facility]) Ondansetron 4 MG Disintegrating Oral Tab let ondansetron [address] ONE TABLET BY MOUTH THREE TIMES A DAY FOR 7 DAYS ondansetron [address] ONE TABLET BY MOUTH THREE TIMES A DAY FOR 7 DAYS completed ondansetron 4 MG Disintegrating Oral Tablet ROLANDO ([facility]) Ondansetron 4 MG Oral Tablet ondansetron HCl 4 mg tabl et ondansetron HCl 4 mg tablet completed ondansetron 4 M G Oral Tablet ROALNDO ([facility]) Acetaminophen 325 MG / Hydrocodone Juanita trate 7.5 MG Oral Tablet hydrocodone 7.5 mg-acetaminophen 325 mg tablet hydrocodone 7.5 mg-acetaminophen 325 mg tablet completed acetaminophen 325 MG / hydrocodone bitartrate 7.5 MG Oral Tablet ROLANDO ([facility]) Acetaminophen 325 MG / Hydrocodone Juanita trate 5 MG Oral Tablet hydrocodone 5 mg- acetaminophen 325 mg tablet as needed hydrocodone 5 mg-acetaminophen 325 mg tablet as needed completed acetaminophen 325 MG / hydrocodone bitartrate 5 MG Oral Tablet ROLANDO ([facility]) Fluzone Quad [id number] (PF) 60 mcg (15 m cg x 4)/0.5 mL IM syringe INJECT INTRAMUSCULARLY IN THE LEFT ARM [id number] compl eted 0.5 ML influenza A virus A/[place] (H1N1) antigen 0.03 MG/ML / influenza A virus A/[place] (H3N2) antigen 0.03 MG/ML / influenza B virus B/ antigen 0.03 MG/ML / influenza B virus B/[facility] antigen 0.03 MG/ML Prefilled Syringe [Fluzone Quadrivalent ] ROLANDO ([facility]) Simvastatin 20 MG Oral Tablet simvastatin 20 mg tablet one by mouth once daily simvastatin 20 mg tablet one by mouth once daily completed simvastatin 20 MG Oral Tablet ROLANDO ([facility]) Divalproex Sodium 500 MG Delayed Release Oral Tablet divalproex 500 mg tablet,delayed release divalproex 500 mg tablet,delayed release completed divalproex sodium 500 MG Delayed Release Oral Tablet ROLANDO ([facility]) Divalproex Sodium 250 MG Delayed Release Oral Tablet divalproex 250 mg tablet,delayed release divalproex 250 mg tablet,delayed release completed divalproex sodium 250 MG Delayed Release Oral Tablet ROLANDO ([facility]) Ondansetron 4 MG Disintegrating Oral Tab let ondansetron 4 mg disintegrating tablet ondansetron 4 mg disintegrating tablet completed ondansetron 4 MG Disintegrating Oral Tablet ROLANDO ([facility]) Acetaminophen 325 MG / Hydrocodone Juanita trate 7.5 MG Oral Tablet hydrocodone 7.5 mg-acetaminophen 325 mg tablet hydrocodone 7.5 mg-acetaminophen 325 mg tablet completed acetaminophen 325 MG / hydrocodone bitartrate 7.5 MG Oral Tablet ROLANDO ([facility]) doxycycline hyclate 100 MG Oral Tablet doxycycline hyc late 100 mg tablet doxycycline hyclate 100 mg tablet comp leted doxycycline hyclate 100 MG Oral Tablet ROLANDO ([facility]) Sumatriptan 25 MG Oral Tablet sumatriptan 25 mg tablet sumat riptan 25 mg tablet completed sumatriptan 25 MG Oral Tablet ROLANDO ([facility]) Amoxicillin 875 MG / Clavulanate 125 MG Oral Tablet amoxicillin 875 mg-potassium clavulanate 125 mg tablet amoxicillin 875 mg-potassium clavulanate 125 mg tablet completed amoxicillin 875 MG / clavulanate 125 MG Oral Tablet ROLANDO ([facility]) Ondansetron 8 MG Disintegrating Oral Tab let ondansetron 8 mg disintegrating tablet ondansetron 8 mg disintegrating tablet completed ondansetron 8 MG Disintegrating Oral Tablet ROLANDO ([facility]) carvedilol 3.125 MG Oral Tablet carvedilol 3.125 mg ta blet carvedilol 3.125 mg tablet completed carvedilol 3.12 5 MG Oral Tablet ROLANDO ([facility]) Amoxicillin 875 MG / Clavulanate 125 MG Oral Tablet amoxicillin 875 mg-potassium clavulanate 125 mg tablet amoxicillin 875 mg-potassium clavulanate 125 mg tablet completed amoxicillin 875 MG / clavulanate 125 MG Oral Tablet ROLANDO ([facility]) duloxetine 30 MG Delayed Release Oral Ca psule duloxetine 30 mg capsule,delayed release TAKE ONE CAPSULE BY MOUTH EVERY DAY duloxetine 30 mg capsule,delayed release TAKE ONE CAPSULE BY MOUTH EVERY DAY completed duloxetine 30 MG Delayed Release Oral Capsule ROLANDO ([facility]) Acetaminophen 325 MG / Hydrocodone Juanita trate 7.5 MG Oral Tablet hydrocodone 7.5 mg-acetaminophen 325 mg tablet hydrocodone 7.5 mg-acetaminophen 325 mg tablet completed acetaminophen 325 MG / hydrocodone bitartrate 7.5 MG Oral Tablet ROLANDO ([facility]) 0.5 ML pneumococcal capsular polysacchar triston [...] Prefilled Syringe [Pneumovax 23] ROLANDO ([facility]) Naproxen 250 MG Oral Tablet naproxen 250 mg tablet as needed naproxen 250 mg tablet as needed completed napro xen 250 MG Oral Tablet ROLAND[facility] ([facility]) Naproxen 250 MG Oral Tablet naproxen 250 mg tablet as needed naproxen 250 mg tablet as needed completed napro xen 250 MG Oral Tablet ROLANDO ([facility]) duloxetine 30 MG Delayed Release Oral Ca psule duloxetine 30 mg capsule,delayed release TAKE ONE CAPSULE BY MOUTH EVERY DAY duloxetine 30 mg capsule,delayed release TAKE ONE CAPSULE BY MOUTH EVERY DAY completed duloxetine 30 MG Delayed Release Oral Capsule ROLANDO ([facility]) Ondansetron 8 MG Disintegrating Oral Tab let ondansetron 8 mg disintegrating tablet ondansetron 8 mg disintegrating tablet completed ondansetron 8 MG Disintegrating Oral Tablet ROLANDO ([facility]) Acetaminophen 325 MG / Hydrocodone Juanita trate 7.5 MG Oral Tablet hydrocodone 7.5 mg-acetaminophen 325 mg tablet hydrocodone 7.5 mg-acetaminophen 325 mg tablet completed acetaminophen 325 MG / hydrocodone bitartrate 7.5 MG Oral Tablet ROLANDO ([facility]) doxycycline hyclate 100 MG Oral Tablet doxycycline hyc late 100 mg tablet doxycycline hyclate 100 mg tablet comp leted doxycycline hyclate 100 MG Oral Tablet ROLANDO ([facility]) 0.5 ML pneumococcal capsular polysacchar triston [...] Prefilled Syringe [Pneumovax 23] ROLANDO ([facility]) doxycycline hyclate 100 MG Oral Tablet doxycycline hyc late 100 mg tablet doxycycline hyclate 100 mg tablet comp leted doxycycline hyclate 100 MG Oral Tablet ROLANDO ([facility]) zonisamide 50 MG Oral Capsule zonisamide 50 mg capsule as needed zonisamide 50 mg capsule as needed completed z onisamide 50 MG Oral Capsule ROLANDO ([facility]) Fluzone Quad [id number] (PF) 60 mcg (15 m cg x 4)/0.5 mL IM syringe INJECT INTRAMUSCULARLY IN THE LEFT ARM [id number] compl eted 0.5 ML influenza A virus A/ (H1N1) antigen 0.03 MG/ML / influenza A virus A/ (H3N2) antigen 0.03 MG/ML / influenza B virus B/ antigen 0.03 MG/ML / influenza B virus B/[facility] antigen 0.03 MG/ML Prefilled Syringe [Fluzone Quadrivalent ] ROLANDO ([facility]) Simvastatin 20 MG Oral Tablet simvastatin 20 mg tablet one by mouth once daily simvastatin 20 mg tablet one by mouth once daily completed simvastatin 20 MG Oral Tablet ROLANDO ([facility]) Divalproex Sodium 500 MG Delayed Release Oral Tablet divalproex 500 mg tablet,delayed release divalproex 500 mg tablet,delayed release completed divalproex sodium 500 MG Delayed Release Oral Tablet ROLANDO ([facility]) Naproxen 250 MG Oral Tablet naproxen 250 mg tablet as needed naproxen 250 mg tablet as needed completed napro xen 250 MG Oral Tablet ROLANDO ([facility]) Ondansetron 8 MG Oral Tablet ondansetron HCl 8 mg tabl et ondansetron HCl 8 mg tablet completed ondansetron 8 M G Oral Tablet ROLANDO ([facility]) Acetaminophen 325 MG / Hydrocodone Juanita trate 5 MG Oral Tablet hydrocodone 5 mg- acetaminophen 325 mg tablet as needed hydrocodone 5 mg-acetaminophen 325 mg tablet as needed completed acetaminophen 325 MG / hydrocodone bitartrate 5 MG Oral Tablet ROLANDO ([facility]) Ondansetron 8 MG Disintegrating Oral Tab let ondansetron 8 mg disintegrating tablet ondansetron 8 mg disintegrating tablet completed ondansetron 8 MG Disintegrating Oral Tablet ROLANDO ([facility]) Simvastatin 20 MG Oral Tablet simvastatin 20 mg tablet one by mouth once daily simvastatin 20 mg tablet one by mouth once daily completed simvastatin 20 MG Oral Tablet ROLANDO ([facility]) Sumatriptan 25 MG Oral Tablet sumatriptan 25 mg tablet sumat riptan 25 mg tablet completed sumatriptan 25 MG Oral Tablet ROLANDO ([facility]) Acetaminophen 325 MG / Hydrocodone Juanita trate 7.5 MG Oral Tablet hydrocodone 7.5 mg-acetaminophen 325 mg tablet hydrocodone 7.5 mg-acetaminophen 325 mg tablet completed acetaminophen 325 MG / hydrocodone bitartrate 7.5 MG Oral Tablet ROLANDO ([facility]) Ondansetron 4 MG Disintegrating Oral Tab let ondansetron 4 mg disintegrating tablet ondansetron 4 mg disintegrating tablet completed ondansetron 4 MG Disintegrating Oral Tablet ROLANDO ([facility]) Simvastatin 20 MG Oral Tablet simvastatin 20 mg tablet one by mouth once daily simvastatin 20 mg tablet one by mouth once daily completed simvastatin 20 MG Oral Tablet ROLANDO ([facility]) 0.5 ML pneumococcal capsular polysacchar triston [...] Prefilled Syringe [Pneumovax 23] ROLANDO ([facility]) Ondansetron 4 MG Disintegrating Oral Tab let ondansetron 4 mg disintegrating tablet ondansetron 4 mg disintegrating tablet completed ondansetron 4 MG Disintegrating Oral Tablet ROLANDO ([facility]) Acetaminophen 325 MG / Hydrocodone Juanita trate 5 MG Oral Tablet hydrocodone 5 mg- acetaminophen 325 mg tablet as needed hydrocodone 5 mg-acetaminophen 325 mg tablet as needed completed acetaminophen 325 MG / hydrocodone bitartrate 5 MG Oral Tablet ROLANDO ([facility]) Ondansetron 4 MG Oral Tablet ondansetron HCl 4 mg tabl et ondansetron HCl 4 mg tablet completed ondansetron 4 M G Oral Tablet ROLANDO ([facility]) Fluzone Quad [id number] (PF) 60 mcg (15 m cg x 4)/0.5 mL IM syringe INJECT INTRAMUSCULARLY IN THE LEFT ARM [id number] compl eted 0.5 ML influenza A virus A/[place] (H1N1) antigen 0.03 MG/ML / influenza A virus A/ (H3N2) antigen 0.03 MG/ML / influenza B virus B/ antigen 0.03 MG/ML / influenza B virus B/[facility] antigen 0.03 MG/ML Prefilled Syringe [Fluzone Quadrivalent [id number]] ROLANDO ([facility]) Flucelvax Quad [id number] 60 mcg (15 mcg x 4)/0.5 mL IM suspension [id number] completed influenza A vi jeremías A/[place] (H3N2) antigen 0.03 MG/ML / influenza A virus A//[id number] (H1N1) antigen 0.03 MG/ML / influenza B virus B/ antigen 0.03 MG/ML / influenza B virus B/[place]/[id number] antigen 0.03 MG/ML Injectable Suspension ROLANDO ([facility]) carvedilol 3.125 MG Oral Tablet carvedilol 3.125 mg ta blet carvedilol 3.125 mg tablet completed carvedilol 3.12 5 MG Oral Tablet ROLANDO ([facility]) Naproxen 250 MG Oral Tablet naproxen 250 mg tablet as needed naproxen 250 mg tablet as needed completed napro xen 250 MG Oral Tablet ROLANDO ([facility]) Acetaminophen 325 MG / Hydrocodone Juanita trate 5 MG Oral Tablet hydrocodone 5 mg- acetaminophen 325 mg tablet as needed hydrocodone 5 mg-acetaminophen 325 mg tablet as needed completed acetaminophen 325 MG / hydrocodone bitartrate 5 MG Oral Tablet ROLANDO ([facility]) Amoxicillin 875 MG / Clavulanate 125 MG Oral Tablet amoxicillin 875 mg-potassium clavulanate 125 mg tablet amoxicillin 875 mg-potassium clavulanate 125 mg tablet completed amoxicillin 875 MG / clavulanate 125 MG Oral Tablet ROLANDO ([facility]) topiramate 50 MG Oral Tablet topiramate 50 mg tablet a s needed topiramate 50 mg tablet as needed completed topir amate 50 MG Oral Tablet ROLANDO ([facility]) Amoxicillin 875 MG / Clavulanate 125 MG Oral Tablet amoxicillin 875 mg-potassium clavulanate 125 mg tablet amoxicillin 875 mg-potassium clavulanate 125 mg tablet completed amoxicillin 875 MG / clavulanate 125 MG Oral Tablet ROLANDO ([facility]) Allopurinol 100 MG Oral Tablet allopurinol 100 mg tabl et allopurinol 100 mg tablet completed allopurinol 100 MG Oral Tablet ROLANDO ([facility]) Allopurinol 100 MG Oral Tablet allopurinol 100 mg tabl et allopurinol 100 mg tablet completed allopurinol 100 MG Oral Tablet ROLANDO ([facility]) Flucelvax Quad 60 mcg (15 mcg x 4)/0.5 mL intramuscular susp INJECT 0.5ML DIRECTED [id number] completed influenza A virus A/ (H3N2) antigen 0.03 MG/ML / influenza A virus A/[place] (H1N1) antigen 0.03 MG/ML / influenza B virus B/ antigen 0.03 MG/ML / influenza B virus B/[facility]/[id number] antigen 0.03 MG/ML Injectable Suspension [Flucelvax Quadrivalent ] ROLANDO ([facility]) Divalproex Sodium 500 MG Delayed Release Oral Tablet divalproex 500 mg tablet,delayed release divalproex 500 mg tablet,delayed release completed divalproex sodium 500 MG Delayed Release Oral Tablet ROLANDO ([facility]) Ondansetron 8 MG Disintegrating Oral Tab let ondansetron 8 mg disintegrating tablet ondansetron 8 mg disintegrating tablet completed ondansetron 8 MG Disintegrating Oral Tablet ROLANDO ([facility]) Metformin hydrochloride 1000 MG Oral Tablet metformin 1,000 mg tablet metformin 1,000 mg tablet completed metformin hydrochloride 1000 MG Oral Tablet ROLANDO ([facility]) Metoclopramide 10 MG Oral Tablet metoclopramide 10 mg tablet metoclopramide 10 mg tablet completed metocloprami de 10 MG Oral Tablet ROLANDO ([facility]) carvedilol 3.125 MG Oral Tablet carvedilol 3.125 mg ta blet carvedilol 3.125 mg tablet completed carvedilol 3.12 5 MG Oral Tablet ROLANDO ([facility]) Fluzone Quad (PF) 60 mcg (15 m cg x 4)/0.5 mL IM syringe INJECT INTRAMUSCULARLY IN THE LEFT ARM [id number] compl eted 0.5 ML influenza A virus A/[place] (H1N1) antigen 0.03 MG/ML / influenza A virus A/ (H3N2) antigen 0.03 MG/ML / influenza B virus B/ antigen 0.03 MG/ML / influenza B virus B/[facility]30711/2012 antigen 0.03 MG/ML Prefilled Syringe [Fluzone Quadrivalent ] ROLANDO ([facility]) Flucelvax Quad 60 mcg (15 mcg x 4)/0.5 mL IM suspension [id number] completed influenza A vi jeremías A/[place] (H3N2) antigen 0.03 MG/ML / influenza A virus A/[facility]/DT2925/2015 (H1N1) antigen 0.03 MG/ML / influenza B virus B/ antigen 0.03 MG/ML / influenza B virus B//[id number]/2016 antigen 0.03 MG/ML Injectable Suspension ROLANDO ([facility]) Flucelvax Quad 60 mcg (15 mcg x 4)/0.5 mL intramuscular susp INJECT 0.5ML DIRECTED [id number] completed influenza A virus A/[place] (H3N2) antigen 0.03 MG/ML / influenza A virus A/[place] (H1N1) antigen 0.03 MG/ML / influenza B virus B/ antigen 0.03 MG/ML / influenza B virus B//[id number]/2016 antigen 0.03 MG/ML Injectable Suspension [Flucelvax Quadrivalent ] ROLANDO ([facility]) Ondansetron 8 MG Oral Tablet ondansetron HCl 8 mg tabl et ondansetron HCl 8 mg tablet completed ondansetron 8 M G Oral Tablet ROLANDO ([facility]) topiramate 25 MG Oral Tablet topiramate 25 mg tablet TAKE ONE TABLET BY MOUTH TWICE A DAY DIRECTED topiramate 25 mg tablet TAKE ONE TABLET BY MOUTH TWICE A DAY DIRECTED completed topira mate 25 MG Oral Tablet ROLANDO ([facility]) Ondansetron 8 MG Oral Tablet ondansetron HCl 8 mg tabl et ondansetron HCl 8 mg tablet completed ondansetron 8 M G Oral Tablet ROLANDO ([facility]) Ondansetron 4 MG Oral Tablet ondansetron HCl 4 mg tabl et ondansetron HCl 4 mg tablet completed ondansetron 4 M G Oral Tablet ROLANDO ([facility]) Metoclopramide 10 MG Oral Tablet metoclopramide 10 mg tablet metoclopramide 10 mg tablet completed metocloprami de 10 MG Oral Tablet ROLANDO ([facility]) Ondansetron 8 MG Oral Tablet ondansetron HCl 8 mg tabl et ondansetron HCl 8 mg tablet completed ondansetron 8 M G Oral Tablet ROLANDO ([facility]) Allopurinol 100 MG Oral Tablet allopurinol 100 mg tabl et allopurinol 100 mg tablet completed allopurinol 100 MG Oral Tablet ROLANDO ([facility]) zonisamide 50 MG Oral Capsule zonisamide 50 mg capsule as needed zonisamide 50 mg capsule as needed completed z onisamide 50 MG Oral Capsule ROLANDO ([facility]) Ondansetron 8 MG Oral Tablet ondansetron HCl 8 mg tabl et ondansetron HCl 8 mg tablet completed ondansetron 8 M G Oral Tablet ROLANDO ([facility]) Divalproex Sodium 500 MG Delayed Release Oral Tablet divalproex 500 mg tablet,delayed release divalproex 500 mg tablet,delayed release completed divalproex sodium 500 MG Delayed Release Oral Tablet ROLANDO ([facility]) Ondansetron 8 MG Oral Tablet ondansetron HCl 8 mg tabl et ondansetron HCl 8 mg tablet completed ondansetron 8 M G Oral Tablet ROLANDO ([facility]) Divalproex Sodium 500 MG Delayed Release Oral Tablet divalproex 500 mg tablet,delayed release divalproex 500 mg tablet,delayed release completed divalproex sodium 500 MG Delayed Release Oral Tablet ROLANDO ([facility]) Metoclopramide 10 MG Oral Tablet metoclopramide 10 mg tablet metoclopramide 10 mg tablet completed metocloprami de 10 MG Oral Tablet ROLANDO ([facility]) Oseltamivir 75 MG Oral Capsule oseltamivir 75 mg capsu le oseltamivir 75 mg capsule completed oseltamivir 75 MG Oral Capsule ROLANDO ([facility]) Oseltamivir 75 MG Oral Capsule oseltamivir 75 mg capsu le oseltamivir 75 mg capsule completed oseltamivir 75 MG Oral Capsule ROLANDO ([facility]) Divalproex Sodium 500 MG Delayed Release Oral Tablet divalproex 500 mg tablet,delayed release divalproex 500 mg tablet,delayed release completed divalproex sodium 500 MG Delayed Release Oral Tablet ROLANDO ([facility]) Flucelvax Quad [id number] 60 mcg (15 mcg x 4)/0.5 mL IM suspension [id number] completed influenza A vi jeremías A/[place] (H3N2) antigen 0.03 MG/ML / influenza A virus A//[id number] (H1N1) antigen 0.03 MG/ML / influenza B virus B/[place] antigen 0.03 MG/ML / influenza B virus B/[facility]/[id number]/2016 antigen 0.03 MG/ML Injectable Suspension ROLANDO ([facility]) topiramate 50 MG Oral Tablet topiramate 50 mg tablet a s needed topiramate 50 mg tablet as needed completed topir amate 50 MG Oral Tablet ROLANDO ([facility]) Divalproex Sodium 250 MG Delayed Release Oral Tablet divalproex 250 mg tablet,delayed release divalproex 250 mg tablet,delayed release completed divalproex sodium 250 MG Delayed Release Oral Tablet [facility] ([facility]) carvedilol 3.125 MG Oral Tablet carvedilol 3.125 mg ta blet carvedilol 3.125 mg tablet completed carvedilol 3.12 5 MG Oral Tablet [facility] ([facility]) Divalproex Sodium 250 MG Delayed Release Oral Tablet divalproex 250 mg tablet,delayed release divalproex 250 mg tablet,delayed release completed divalproex sodium 250 MG Delayed Release Oral Tablet [facility] ([facility]) Sumatriptan 25 MG Oral Tablet sumatriptan 25 mg tablet sumat riptan 25 mg tablet completed sumatriptan 25 MG Oral Tablet [facility] ([facility]) carvedilol 3.125 MG Oral Tablet carvedilol 3.125 mg ta blet carvedilol 3.125 mg tablet completed carvedilol 3.12 5 MG Oral Tablet [facility] ([facility]) doxycycline hyclate 100 MG Oral Tablet doxycycline hyc late 100 mg tablet doxycycline hyclate 100 mg tablet comp leted doxycycline hyclate 100 MG Oral Tablet [facility] ([facility]) Amoxicillin 875 MG / Clavulanate 125 MG Oral Tablet amoxicillin 875 mg-potassium clavulanate 125 mg tablet amoxicillin 875 mg-potassium clavulanate 125 mg tablet completed amoxicillin 875 MG / clavulanate 125 MG Oral Tablet [facility] ([facility]) carvedilol 3.125 MG Oral Tablet carvedilol 3.125 mg ta blet carvedilol 3.125 mg tablet completed carvedilol 3.12 5 MG Oral Tablet [facility] ([facility]) Acetaminophen 325 MG / Hydrocodone Juanita trate 7.5 MG Oral Tablet hydrocodone 7.5 mg-acetaminophen 325 mg tablet hydrocodone 7.5 mg-acetaminophen 325 mg tablet completed acetaminophen 325 MG / hydrocodone bitartrate 7.5 MG Oral Tablet [facility] ([facility]) 24 HR Metformin hydrochloride 500 MG Ext ended Release Oral Tablet metformin ER 500 mg tablet,extended release 24 hr metformin ER 500 mg tablet,extended rele ase 24 hr completed 24 HR m etformin hydrochloride 500 MG Extended Release Oral Tablet [facility] ([facility]) doxycycline hyclate 100 MG Oral Tablet doxycycline hyc late 100 mg tablet doxycycline hyclate 100 mg tablet comp leted doxycycline hyclate 100 MG Oral Tablet [facility] ([facility]) Acetaminophen 325 MG / Hydrocodone Juanita trate 5 MG Oral Tablet hydrocodone 5 mg- acetaminophen 325 mg tablet as needed hydrocodone 5 mg-acetaminophen 325 mg tablet as needed completed acetaminophen 325 MG / hydrocodone bitartrate 5 MG Oral Tablet [facility] ([facility]) Flucelvax Quad [id number] 60 mcg (15 mcg x 4)/0.5 mL IM suspension [id number] completed influenza A vi jeremías A/[place] (H3N2) antigen 0.03 MG/ML / influenza A virus A/[facility]/VO9035/2015 (H1N1) antigen 0.03 MG/ML / influenza B virus B/[place] antigen 0.03 MG/ML / influenza B virus B/[facility]/[id number]-[id number]/2016 antigen 0.03 MG/ML Injectable Suspension [facility] ([facility]) topiramate 25 MG Oral Tablet topiramate 25 mg tablet TAKE ONE TABLET BY MOUTH TWICE A DAY DIRECTED topiramate 25 mg tablet TAKE ONE TABLET BY MOUTH TWICE A DAY DIRECTED completed topira mate 25 MG Oral Tablet [facility] ([facility]) topiramate 50 MG Oral Tablet topiramate 50 mg tablet a s needed topiramate 50 mg tablet as needed completed topir amate 50 MG Oral Tablet [facility] ([facility]) zonisamide 50 MG Oral Capsule zonisamide 50 mg capsule as needed zonisamide 50 mg capsule as needed completed z onisamide 50 MG Oral Capsule [facility] ([facility]) Ondansetron 8 MG Oral Tablet ondansetron HCl 8 mg tabl et ondansetron HCl 8 mg tablet completed ondansetron 8 M G Oral Tablet [facility] ([facility]) Simvastatin 20 MG Oral Tablet simvastatin 20 mg tablet one by mouth once daily simvastatin 20 mg tablet one by mouth once daily completed simvastatin 20 MG Oral Tablet [facility] ([facility]) Simvastatin 20 MG Oral Tablet simvastatin 20 mg tablet one by mouth once daily simvastatin 20 mg tablet one by mouth once daily completed simvastatin 20 MG Oral Tablet [facility] ([facility]) 0.5 ML pneumococcal capsular polysacchar triston [...] Prefilled Syringe [Pneumovax 23] [facility] ([facility]) Divalproex Sodium 250 MG Delayed Release Oral Tablet divalproex 250 mg tablet,delayed release divalproex 250 mg tablet,delayed release completed divalproex sodium 250 MG Delayed Release Oral Tablet [facility] ([facility]) Divalproex Sodium 500 MG Delayed Release Oral Tablet divalproex 500 mg tablet,delayed release divalproex 500 mg tablet,delayed release completed divalproex sodium 500 MG Delayed Release Oral Tablet [facility] ([facility]) Simvastatin 20 MG Oral Tablet simvastatin 20 mg tablet one by mouth once daily simvastatin 20 mg tablet one by mouth once daily completed simvastatin 20 MG Oral Tablet [facility] ([facility]) Naproxen 250 MG Oral Tablet naproxen 250 mg tablet as needed naproxen 250 mg tablet as needed completed napro xen 250 MG Oral Tablet [facility] ([facility]) topiramate 50 MG Oral Tablet topiramate 50 mg tablet a s needed topiramate 50 mg tablet as needed completed topir amate 50 MG Oral Tablet [facility] ([facility]) Fluzone Quad 1206-5041 (PF) 60 mcg (15 m cg x 4)/0.5 mL IM syringe INJECT INTRAMUSCULARLY IN THE LEFT ARM [id number] compl eted 0.5 ML influenza A virus A/[place] (H1N1) antigen 0.03 MG/ML / influenza A virus A/ (H3N2) antigen 0.03 MG/ML / influenza B virus B/ antigen 0.03 MG/ML / [facility] MG/ML Prefilled Syringe [Fluzone Quadrivalent [id number]] [facility] ([facility]) meloxicam 7.5 MG Oral Tablet meloxicam 7.5 mg tablet meloxicam 7 .5 mg tablet completed meloxicam 7.5 MG Oral Tablet [facility] ([facility]) Acetaminophen 325 MG / Hydrocodone Juanita trate 5 MG Oral Tablet hydrocodone 5 mg- acetaminophen 325 mg tablet as needed hydrocodone 5 mg-acetaminophen 325 mg tablet as needed completed acetaminophen 325 MG / hydrocodone bitartrate 5 MG Oral Tablet [facility] ([facility]) carvedilol 3.125 MG Oral Tablet carvedilol 3.125 mg ta blet carvedilol 3.125 mg tablet completed carvedilol 3.12 5 MG Oral Tablet [facility] ([facility]) Oseltamivir 75 MG Oral Capsule oseltamivir 75 mg capsu le oseltamivir 75 mg capsule completed oseltamivir 75 MG Oral Capsule [facility] ([facility]) Naproxen 250 MG Oral Tablet naproxen 250 mg tablet as needed naproxen 250 mg tablet as needed completed napro xen 250 MG Oral Tablet [facility] ([facility]) meloxicam 7.5 MG Oral Tablet meloxicam 7.5 mg tablet meloxicam 7 .5 mg tablet completed meloxicam 7.5 MG Oral Tablet [facility] ([facility]) doxycycline hyclate 100 MG Oral Tablet doxycycline hyc late 100 mg tablet doxycycline hyclate 100 mg tablet comp leted doxycycline hyclate 100 MG Oral Tablet [facility] ([facility]) Oseltamivir 75 MG Oral Capsule oseltamivir 75 mg capsu le oseltamivir 75 mg capsule completed oseltamivir 75 MG Oral Capsule [facility] ([facility]) Amoxicillin 875 MG / Clavulanate 125 MG Oral Tablet amoxicillin 875 mg-potassium clavulanate 125 mg tablet amoxicillin 875 mg-potassium clavulanate 125 mg tablet completed amoxicillin 875 MG / clavulanate 125 MG Oral Tablet [facility] ([facility]) Flucelvax Quad 60 mcg (15 mcg x 4)/0.5 mL intramuscular susp INJECT 0.5ML DIRECTED [id number] completed influenza A virus A/ (H3N2) antigen 0.03 MG/ML / influenza A virus A/[place] (H1N1) antigen 0.03 MG/ML / influenza B virus B/ antigen 0.03 MG/ML / influenza B virus B/[facility]/[id number]-[id number]/2016 antigen 0.03 MG/ML Injectable Suspension [Flucelvax Quadrivalent ] [facility] ([facility]) Ondansetron 4 MG Oral Tablet ondansetron HCl 4 mg tabl et ondansetron HCl 4 mg tablet completed ondansetron 4 M G Oral Tablet [facility] ([facility]) Ondansetron 8 MG Oral Tablet ondansetron HCl 8 mg tabl et ondansetron HCl 8 mg tablet completed ondansetron 8 M G Oral Tablet [facility] ([facility]) Allopurinol 100 MG Oral Tablet allopurinol 100 mg tabl et allopurinol 100 mg tablet completed allopurinol 100 MG Oral Tablet [facility] ([facility]) Acetaminophen 325 MG / Hydrocodone Juanita trate 5 MG Oral Tablet hydrocodone 5 mg- acetaminophen 325 mg tablet as needed hydrocodone 5 mg-acetaminophen 325 mg tablet as needed completed acetaminophen 325 MG / hydrocodone bitartrate 5 MG Oral Tablet [facility] ([facility]) doxycycline hyclate 100 MG Oral Tablet doxycycline hyc late 100 mg tablet doxycycline hyclate 100 mg tablet comp leted doxycycline hyclate 100 MG Oral Tablet [facility] ([facility]) meloxicam 7.5 MG Oral Tablet meloxicam 7.5 mg tablet meloxicam 7 .5 mg tablet completed meloxicam 7.5 MG Oral Tablet [facility] ([facility]) 0.5 ML pneumococcal capsular polysacchar triston [...] Prefilled Syringe [Pneumovax 23] [facility] ([facility]) Sumatriptan 25 MG Oral Tablet sumatriptan 25 mg tablet sumat riptan 25 mg tablet completed sumatriptan 25 MG Oral Tablet [facility] ([facility]) doxycycline hyclate 100 MG Oral Tablet doxycycline hyc late 100 mg tablet doxycycline hyclate 100 mg tablet comp leted doxycycline hyclate 100 MG Oral Tablet [facility] ([facility]) Flucelvax Quad 6439-2080 60 mcg (15 mcg x 4)/0.5 mL IM suspension [id number] completed influenza A vi jeremías A/[place] (H3N2) antigen 0.03 MG/ML / influenza A virus A//FR8895/2015 (H1N1) antigen 0.03 MG/ML / influenza B virus B/ antigen 0.03 MG/ML / influenza B virus B//[id number]/2016 antigen 0.03 MG/ML Injectable Suspension [facility] ([facility]) 24 HR Metformin hydrochloride 500 MG Ext ended Release Oral Tablet metformin ER 500 mg tablet,extended release 24 hr metformin ER 500 mg tablet,extended rele ase 24 hr completed 24 HR m etformin hydrochloride 500 MG Extended Release Oral Tablet [facility] ([facility]) Acetaminophen 325 MG / Hydrocodone Juanita trate 7.5 MG Oral Tablet hydrocodone 7.5 mg-acetaminophen 325 mg tablet hydrocodone 7.5 mg-acetaminophen 325 mg tablet completed acetaminophen 325 MG / hydrocodone bitartrate 7.5 MG Oral Tablet [facility] ([facility]) meloxicam 7.5 MG Oral Tablet meloxicam 7.5 mg tablet meloxicam 7 .5 mg tablet completed meloxicam 7.5 MG Oral Tablet [facility] ([facility]) Acetaminophen 325 MG / Hydrocodone Juanita trate 5 MG Oral Tablet hydrocodone 5 mg- acetaminophen 325 mg tablet as needed hydrocodone 5 mg-acetaminophen 325 mg tablet as needed completed acetaminophen 325 MG / hydrocodone bitartrate 5 MG Oral Tablet [facility] ([facility]) Metoclopramide 10 MG Oral Tablet metoclopramide 10 mg tablet metoclopramide 10 mg tablet completed metocloprami de 10 MG Oral Tablet [facility] ([facility]) Naproxen 250 MG Oral Tablet naproxen 250 mg tablet as needed naproxen 250 mg tablet as needed completed napro xen 250 MG Oral Tablet [facility] ([facility]) Naproxen 250 MG Oral Tablet naproxen 250 mg tablet as needed naproxen 250 mg tablet as needed completed napro xen 250 MG Oral Tablet [facility] ([facility]) meloxicam 7.5 MG Oral Tablet meloxicam 7.5 mg tablet meloxicam 7 .5 mg tablet completed meloxicam 7.5 MG Oral Tablet [facility] ([facility]) topiramate 25 MG Oral Tablet topiramate 25 mg tablet TAKE ONE TABLET BY MOUTH TWICE A DAY DIRECTED topiramate 25 mg tablet TAKE ONE TABLET BY MOUTH TWICE A DAY DIRECTED completed topira mate 25 MG Oral Tablet [facility] ([facility]) doxycycline hyclate 100 MG Oral Tablet doxycycline hyc late 100 mg tablet doxycycline hyclate 100 mg tablet comp leted doxycycline hyclate 100 MG Oral Tablet [facility] ([facility]) Metformin hydrochloride 1000 MG Oral Tablet metformin 1,000 mg tablet metformin 1,000 mg tablet completed metformin hydrochloride 1000 MG Oral Tablet [facility] ([facility]) Simvastatin 20 MG Oral Tablet simvastatin 20 mg tablet one by mouth once daily simvastatin 20 mg tablet one by mouth once daily completed simvastatin 20 MG Oral Tablet [facility] ([facility]) Divalproex Sodium 250 MG Delayed Release Oral Tablet divalproex 250 mg tablet,delayed release divalproex 250 mg tablet,delayed release completed divalproex sodium 250 MG Delayed Release Oral Tablet [facility] ([facility]) Ondansetron 4 MG Disintegrating Oral Tab let ondansetron 4 mg disintegrating tablet ondansetron 4 mg disintegrating tablet completed ondansetron 4 MG Disintegrating Oral Tablet [facility] ([facility]) Fluzone Quad [id number] (PF) 60 mcg (15 m cg x 4)/0.5 mL IM syringe INJECT INTRAMUSCULARLY IN THE LEFT ARM [id number] compl eted 0.5 ML influenza A virus A/[place] (H1N1) antigen 0.03 MG/ML / influenza A virus A/ (H3N2) antigen 0.03 MG/ML / influenza B virus B/ antigen 0.03 MG/ML / influenza B virus B/[facility] antigen 0.03 MG/ML Prefilled Syringe [Fluzone Quadrivalent ] R[facility] ([facility]) topiramate 25 MG Oral Tablet topiramate 25 mg tablet TAKE ONE TABLET BY MOUTH TWICE A DAY DIRECTED topiramate 25 mg tablet TAKE ONE TABLET BY MOUTH TWICE A DAY DIRECTED completed topira mate 25 MG Oral Tablet [facility] ([facility]) Acetaminophen 325 MG / Hydrocodone Juanita trate 7.5 MG Oral Tablet hydrocodone 7.5 mg-acetaminophen 325 mg tablet hydrocodone 7.5 mg-acetaminophen 325 mg tablet completed acetaminophen 325 MG / hydrocodone bitartrate 7.5 MG Oral Tablet [facility] ([facility]) zonisamide 50 MG Oral Capsule zonisamide 50 mg capsule as needed zonisamide 50 mg capsule as needed completed z onisamide 50 MG Oral Capsule [facility] ([facility]) Simvastatin 20 MG Oral Tablet simvastatin 20 mg tablet one by mouth once daily simvastatin 20 mg tablet one by mouth once daily completed simvastatin 20 MG Oral Tablet [facility] ([facility]) Naproxen 250 MG Oral Tablet naproxen 250 mg tablet as needed naproxen 250 mg tablet as needed completed napro xen 250 MG Oral Tablet [facility] ([facility]) Divalproex Sodium 500 MG Delayed Release Oral Tablet divalproex 500 mg tablet,delayed release divalproex 500 mg tablet,delayed release completed divalproex sodium 500 MG Delayed Release Oral Tablet [facility] ([facility]) Sumatriptan 25 MG Oral Tablet sumatriptan 25 mg tablet sumat riptan 25 mg tablet completed sumatriptan 25 MG Oral Tablet [facility] ([facility]) Flucelvax Quad [id number] 60 mcg (15 mcg x 4)/0.5 mL IM suspension [id number] completed influenza A vi jeremías A/[place] (H3N2) antigen 0.03 MG/ML / influenza A virus A/[facility] (H1N1) antigen 0.03 MG/ML / influenza B virus B/[place] antigen 0.03 MG/ML / influenza B virus B/[facility]/[id number]/2016 antigen 0.03 MG/ML Injectable Suspension ROLANDO ([facility]) Divalproex Sodium 250 MG Delayed Release Oral Tablet divalproex 250 mg tablet,delayed release divalproex 250 mg tablet,delayed release completed divalproex sodium 250 MG Delayed Release Oral Tablet [facility] ([facility]) Acetaminophen 325 MG / Hydrocodone Juanita trate 7.5 MG Oral Tablet hydrocodone 7.5 mg-acetaminophen 325 mg tablet hydrocodone 7.5 mg-acetaminophen 325 mg tablet completed acetaminophen 325 MG / hydrocodone bitartrate 7.5 MG Oral Tablet [facility] ([facility]) 0.5 ML pneumococcal capsular polysacchar triston [...] Prefilled Syringe [Pneumovax 23] [facility] ([facility]) Divalproex Sodium 500 MG Delayed Release Oral Tablet divalproex 500 mg tablet,delayed release divalproex 500 mg tablet,delayed release completed divalproex sodium 500 MG Delayed Release Oral Tablet [facility] ([facility]) 24 HR Metformin hydrochloride 500 MG Ext ended Release Oral Tablet metformin ER 500 mg tablet,extended release 24 hr metformin ER 500 mg tablet,extended rele ase 24 hr completed 24 HR m etformin hydrochloride 500 MG Extended Release Oral Tablet [facility] ([facility]) Ondansetron 8 MG Oral Tablet ondansetron HCl 8 mg tabl et ondansetron HCl 8 mg tablet completed ondansetron 8 M G Oral Tablet [facility] ([facility]) Amoxicillin 875 MG / Clavulanate 125 MG Oral Tablet amoxicillin 875 mg-potassium clavulanate 125 mg tablet amoxicillin 875 mg-potassium clavulanate 125 mg tablet completed amoxicillin 875 MG / clavulanate 125 MG Oral Tablet [facility] ([facility]) Divalproex Sodium 250 MG Delayed Release Oral Tablet divalproex 250 mg tablet,delayed release divalproex 250 mg tablet,delayed release completed divalproex sodium 250 MG Delayed Release Oral Tablet [facility] ([facility]) 0.5 ML pneumococcal capsular polysacchar triston [...] Prefilled Syringe [Pneumovax 23] ROLANDO ([facility]) Flucelvax Quad 60 mcg (15 mcg x 4)/0.5 mL intramuscular susp INJECT 0.5ML DIRECTED [id number] completed influenza A virus A/ (H3N2) antigen 0.03 MG/ML / influenza A virus A/ (H1N1) antigen 0.03 MG/ML / influenza B virus B/ antigen 0.03 MG/ML / influenza B virus B/[facility]/RBPVS-[id number]/2016 antigen 0.03 MG/ML Injectable Suspension [Flucelvax Quadrivalent ] [place] ([facility]) Divalproex Sodium 500 MG Delayed Release Oral Tablet divalproex 500 mg tablet,delayed release divalproex 500 mg tablet,delayed release completed divalproex sodium 500 MG Delayed Release Oral Tablet [facility] ([facility]) duloxetine 30 MG Delayed Release Oral Ca psule duloxetine 30 mg capsule,delayed release TAKE ONE CAPSULE BY MOUTH EVERY DAY duloxetine 30 mg capsule,delayed release TAKE ONE CAPSULE BY MOUTH EVERY DAY completed duloxetine 30 MG Delayed Release Oral Capsule R[facility] ([facility]) doxycycline hyclate 100 MG Oral Tablet doxycycline hyc late 100 mg tablet doxycycline hyclate 100 mg tablet comp leted doxycycline hyclate 100 MG Oral Tablet [facility] ([facility]) Acetaminophen 325 MG / Hydrocodone Juanita trate 7.5 MG Oral Tablet hydrocodone 7.5 mg-acetaminophen 325 mg tablet hydrocodone 7.5 mg-acetaminophen 325 mg tablet completed acetaminophen 325 MG / hydrocodone bitartrate 7.5 MG Oral Tablet [facility] ([facility]) Sumatriptan 25 MG Oral Tablet sumatriptan 25 mg tablet sumat riptan 25 mg tablet completed sumatriptan 25 MG Oral Tablet [facility] ([facility]) Flucelvax Quad 60 mcg (15 mcg x 4)/0.5 mL intramuscular susp INJECT 0.5ML DIRECTED [id number] completed influenza A virus A/ (H3N2) antigen 0.03 MG/ML / influenza A virus A//2019 (H1N1) antigen 0.03 MG/ML / influenza B virus B/ antigen 0.03 MG/ML / influenza B virus B/[facility]/[id number]/2016 antigen 0.03 MG/ML Injectable Suspension [Flucelvax Quadrivalent ] [facility] ([facility]) Divalproex Sodium 250 MG Delayed Release Oral Tablet divalproex 250 mg tablet,delayed release divalproex 250 mg tablet,delayed release completed divalproex sodium 250 MG Delayed Release Oral Tablet [facility] ([facility]) 0.5 ML pneumococcal capsular polysacchar triston [...] Prefilled Syringe [Pneumovax 23] [facility] ([facility]) Simvastatin 20 MG Oral Tablet simvastatin 20 mg tablet one by mouth once daily simvastatin 20 mg tablet one by mouth once daily completed simvastatin 20 MG Oral Tablet [facility] ([facility]) Divalproex Sodium 250 MG Delayed Release Oral Tablet divalproex 250 mg tablet,delayed release divalproex 250 mg tablet,delayed release completed divalproex sodium 250 MG Delayed Release Oral Tablet [facility] ([facility]) Metoclopramide 10 MG Oral Tablet metoclopramide 10 mg tablet metoclopramide 10 mg tablet completed metocloprami de 10 MG Oral Tablet [facility] ([facility]) meloxicam 7.5 MG Oral Tablet meloxicam 7.5 mg tablet meloxicam 7 .5 mg tablet completed meloxicam 7.5 MG Oral Tablet [facility] ([facility]) carvedilol 3.125 MG Oral Tablet carvedilol 3.125 mg ta blet carvedilol 3.125 mg tablet completed carvedilol 3.12 5 MG Oral Tablet [facility] ([facility]) 0.5 ML pneumococcal capsular polysacchar triston [...] Prefilled Syringe [Pneumovax 23] [facility]OL[facility] ([facility]) Simvastatin 20 MG Oral Tablet simvastatin 20 mg tablet one by mouth once daily simvastatin 20 mg tablet one by mouth once daily completed simvastatin 20 MG Oral Tablet [facility] ([facility]) Divalproex Sodium 250 MG Delayed Release Oral Tablet divalproex 250 mg tablet,delayed release divalproex 250 mg tablet,delayed release completed divalproex sodium 250 MG Delayed Release Oral Tablet [facility] ([facility]) Amoxicillin 875 MG / Clavulanate 125 MG Oral Tablet amoxicillin 875 mg-potassium clavulanate 125 mg tablet amoxicillin 875 mg-potassium clavulanate 125 mg tablet completed amoxicillin 875 MG / clavulanate 125 MG Oral Tablet R[facility] ([facility]) zonisamide 50 MG Oral Capsule zonisamide 50 mg capsule as needed zonisamide 50 mg capsule as needed completed z onisamide 50 MG Oral Capsule [facility] ([facility]) Allopurinol 100 MG Oral Tablet allopurinol 100 mg tabl et allopurinol 100 mg tablet completed allopurinol 100 MG Oral Tablet [facility] ([facility]) carvedilol 3.125 MG Oral Tablet carvedilol 3.125 mg ta blet carvedilol 3.125 mg tablet completed carvedilol 3.12 5 MG Oral Tablet [facility] ([facility]) duloxetine 30 MG Delayed Release Oral Ca psule duloxetine 30 mg capsule,delayed release TAKE ONE CAPSULE BY MOUTH EVERY DAY duloxetine 30 mg capsule,delayed release TAKE ONE CAPSULE BY MOUTH EVERY DAY completed duloxetine 30 MG Delayed Release Oral Capsule [facility] ([facility]) Ondansetron 8 MG Oral Tablet ondansetron HCl 8 mg tabl et ondansetron HCl 8 mg tablet completed ondansetron 8 M G Oral Tablet [facility] ([facility]) Ondansetron 4 MG Disintegrating Oral Tab let ondansetron 4 mg disintegrating tablet ondansetron 4 mg disintegrating tablet completed ondansetron 4 MG Disintegrating Oral Tablet [place]AL[place] ([facility]) Flucelvax Quad 60 mcg (15 mcg x 4)/0.5 mL IM suspension [id number] completed influenza A vi jeremías A/[place] (H3N2) antigen 0.03 MG/ML / [id number] ([facility] antigen 0.03 MG/ML / influenza B virus B/ antigen 0.03 MG/ML / influenza B virus B//[id number] antigen 0.03 MG/ML Injectable Suspension ROL[place] ([facility]) carvedilol 3.125 MG Oral Tablet carvedilol 3.125 mg ta blet carvedilol 3.125 mg tablet completed carvedilol 3.12 5 MG Oral Tablet [place] ([facility]) Flucelvax Quad 60 mcg (15 mcg x 4)/0.5 mL intramuscular susp INJECT 0.5ML DIRECTED [id number] completed influenza A virus A/ (H3N2) antigen 0.03 MG/ML / influenza A virus A/[facility] (H1N1) antigen 0.03 MG/ML / influenza B virus B/ antigen 0.03 MG/ML / influenza B virus B/[id number]/2016 antigen 0.03 MG/ML Injectable Suspension [Flucelvax Quadrivalent ] ROLAND[facility] ([facility]) Ondansetron 4 MG Oral Tablet ondansetron HCl 4 mg tabl et ondansetron HCl 4 mg tablet completed ondansetron 4 M G Oral Tablet ROL[place] ([facility]) 0.5 ML pneumococcal capsular polysacchar triston [...] Prefilled Syringe [Pneumovax 23] ROLANDO ([facility]) Divalproex Sodium 250 MG Delayed Release Oral Tablet divalproex 250 mg tablet,delayed release divalproex 250 mg tablet,delayed release completed divalproex sodium 250 MG Delayed Release Oral Tablet [place] ([facility]) Amoxicillin 875 MG / Clavulanate 125 MG Oral Tablet amoxicillin 875 mg-potassium clavulanate 125 mg tablet amoxicillin 875 mg-potassium clavulanate 125 mg tablet completed amoxicillin 875 MG / clavulanate 125 MG Oral Tablet [place] ([facility]) meloxicam 7.5 MG Oral Tablet meloxicam 7.5 mg tablet meloxicam 7 .5 mg tablet completed meloxicam 7.5 MG Oral Tablet [place] ([facility]) Oseltamivir 75 MG Oral Capsule oseltamivir 75 mg capsu le oseltamivir 75 mg capsule completed oseltamivir 75 MG Oral Capsule [place] ([facility]) Oseltamivir 75 MG Oral Capsule oseltamivir 75 mg capsu le oseltamivir 75 mg capsule completed oseltamivir 75 MG Oral Capsule [place] ([facility]) Sumatriptan 25 MG Oral Tablet sumatriptan 25 mg tablet sumat riptan 25 mg tablet completed sumatriptan 25 MG Oral Tablet [place] ([facility]) 0.5 ML pneumococcal capsular polysacchar triston [...] Prefilled Syringe [Pneumovax 23] ROLANDO ([facility]) Amoxicillin 875 MG / Clavulanate 125 MG Oral Tablet amoxicillin 875 mg-potassium clavulanate 125 mg tablet amoxicillin 875 mg-potassium clavulanate 125 mg tablet completed amoxicillin 875 MG / clavulanate 125 MG Oral Tablet [place] ([facility]) Divalproex Sodium 250 MG Delayed Release Oral Tablet divalproex 250 mg tablet,delayed release divalproex 250 mg tablet,delayed release completed divalproex sodium 250 MG Delayed Release Oral Tablet [place] ([facility]) 24 HR Metformin hydrochloride 500 MG Ext ended Release Oral Tablet metformin ER 500 mg tablet,extended release 24 hr metformin ER 500 mg tablet,extended rele ase 24 hr completed 24 HR m etformin hydrochloride 500 MG Extended Release Oral Tablet [place] ([facility]) Ondansetron 8 MG Oral Tablet ondansetron HCl 8 mg tabl et ondansetron HCl 8 mg tablet completed ondansetron 8 M G Oral Tablet [place] ([facility]) Amoxicillin 875 MG / Clavulanate 125 MG Oral Tablet amoxicillin 875 mg-potassium clavulanate 125 mg tablet amoxicillin 875 mg-potassium clavulanate 125 mg tablet completed amoxicillin 875 MG / clavulanate 125 MG Oral Tablet [place] ([facility]) doxycycline hyclate 100 MG Oral Tablet doxycycline hyc late 100 mg tablet doxycycline hyclate 100 mg tablet comp leted doxycycline hyclate 100 MG Oral Tablet [place] ([facility]) topiramate 50 MG Oral Tablet topiramate 50 mg tablet a s needed topiramate 50 mg tablet as needed completed topir amate 50 MG Oral Tablet [place] ([facility]) Ondansetron 4 MG Oral Tablet ondansetron HCl 4 mg tabl et ondansetron HCl 4 mg tablet completed ondansetron 4 M G Oral Tablet [place] ([facility]) 24 HR Metformin hydrochloride 500 MG Ext ended Release Oral Tablet metformin ER 500 mg tablet,extended release 24 hr metformin ER 500 mg tablet,extended rele ase 24 hr completed 24 HR m etformin hydrochloride 500 MG Extended Release Oral Tablet [place] ([facility]) zonisamide 50 MG Oral Capsule zonisamide 50 mg capsule as needed zonisamide 50 mg capsule as needed completed z onisamide 50 MG Oral Capsule ROLANDO ([facility]) Allopurinol 100 MG Oral Tablet allopurinol 100 mg tabl et allopurinol 100 mg tablet completed allopurinol 100 MG Oral Tablet [place] ([facility]) Ondansetron 4 MG Disintegrating Oral Tab let ondansetron 4 mg disintegrating tablet ondansetron 4 mg disintegrating tablet completed ondansetron 4 MG Disintegrating Oral Tablet [place] ([facility]) meloxicam 7.5 MG Oral Tablet meloxicam 7.5 mg tablet meloxicam 7 .5 mg tablet completed meloxicam 7.5 MG Oral Tablet [place] ([facility]) topiramate 50 MG Oral Tablet topiramate 50 mg tablet a s needed topiramate 50 mg tablet as needed completed topir amate 50 MG Oral Tablet [place] ([facility]) Ondansetron 8 MG Disintegrating Oral Tab let ondansetron 8 mg disintegrating tablet ondansetron 8 mg disintegrating tablet completed ondansetron 8 MG Disintegrating Oral Tablet ROL[place] ([facility]) doxycycline hyclate 100 MG Oral Tablet doxycycline hyc late 100 mg tablet doxycycline hyclate 100 mg tablet comp leted doxycycline hyclate 100 MG Oral Tablet [place] ([facility]) Simvastatin 20 MG Oral Tablet simvastatin 20 mg tablet one by mouth once daily simvastatin 20 mg tablet one by mouth once daily completed simvastatin 20 MG Oral Tablet ROLAND[place] ([facility]) Acetaminophen 325 MG / Hydrocodone Juanita trate 5 MG Oral Tablet hydrocodone 5 mg- acetaminophen 325 mg tablet as needed hydrocodone 5 mg-acetaminophen 325 mg tablet as needed completed acetaminophen 325 MG / hydrocodone bitartrate 5 MG Oral Tablet ROL[place] ([facility]) Flucelvax Quad 60 mcg (15 mcg x 4)/0.5 mL intramuscular susp INJECT 0.5ML DIRECTED [id number] completed influenza A virus A/ (H3N2) antigen 0.03 MG/ML / influenza A virus A/[place] (H1N1) antigen 0.03 MG/ML / influenza B virus B/ antigen 0.03 MG/ML / influenza B virus B/[facility]/[id number]/2016 antigen 0.03 MG/ML Injectable Suspension [Flucelvax Quadrivalent ] ROLANDO ([facility]) topiramate 50 MG Oral Tablet topiramate 50 mg tablet a s needed topiramate 50 mg tablet as needed completed topir amate 50 MG Oral Tablet ROLANDO ([facility]) Sumatriptan 25 MG Oral Tablet sumatriptan 25 mg tablet sumat riptan 25 mg tablet completed sumatriptan 25 MG Oral Tablet [place] ([facility]) meloxicam 7.5 MG Oral Tablet meloxicam 7.5 mg tablet meloxicam 7 .5 mg tablet completed meloxicam 7.5 MG Oral Tablet [place] ([facility]) Acetaminophen 325 MG / Hydrocodone Juanita trate 5 MG Oral Tablet hydrocodone 5 mg- acetaminophen 325 mg tablet as needed hydrocodone 5 mg-acetaminophen 325 mg tablet as needed completed acetaminophen 325 MG / hydrocodone bitartrate 5 MG Oral Tablet ROL[place] ([facility]) Metformin hydrochloride 1000 MG Oral Tablet metformin 1,000 mg tablet metformin 1,000 mg tablet completed metformin hydrochloride 1000 MG Oral Tablet [place] ([facility]) Ondansetron 4 MG Oral Tablet ondansetron HCl 4 mg tabl et ondansetron HCl 4 mg tablet completed ondansetron 4 M G Oral Tablet [place] ([facility]) carvedilol 3.125 MG Oral Tablet carvedilol 3.125 mg ta blet carvedilol 3.125 mg tablet completed carvedilol 3.12 5 MG Oral Tablet [place] ([facility]) Ondansetron 8 MG Oral Tablet ondansetron HCl 8 mg tabl et ondansetron HCl 8 mg tablet completed ondansetron 8 M G Oral Tablet [place] ([facility]) Acetaminophen 325 MG / Hydrocodone Juanita trate 5 MG Oral Tablet hydrocodone 5 mg- acetaminophen 325 mg tablet as needed hydrocodone 5 mg-acetaminophen 325 mg tablet as needed completed acetaminophen 325 MG / hydrocodone bitartrate 5 MG Oral Tablet [place] ([facility]) Metoclopramide 10 MG Oral Tablet metoclopramide 10 mg tablet metoclopramide 10 mg tablet completed metocloprami de 10 MG Oral Tablet [place] ([facility]) Acetaminophen 325 MG / Hydrocodone Juanita trate 7.5 MG Oral Tablet hydrocodone 7.5 mg-acetaminophen 325 mg tablet hydrocodone 7.5 mg-acetaminophen 325 mg tablet completed acetaminophen 325 MG / hydrocodone bitartrate 7.5 MG Oral Tablet ROLANDO ([facility]) Divalproex Sodium 250 MG Delayed Release Oral Tablet divalproex 250 mg tablet,delayed release divalproex 250 mg tablet,delayed release completed divalproex sodium 250 MG Delayed Release Oral Tablet R[place] ([facility]) meloxicam 7.5 MG Oral Tablet meloxicam 7.5 mg tablet meloxicam 7 .5 mg tablet completed meloxicam 7.5 MG Oral Tablet R[place] ([facility]) Naproxen 250 MG Oral Tablet naproxen 250 mg tablet as needed naproxen 250 mg tablet as needed completed napro xen 250 MG Oral Tablet R[place] ([facility]) meloxicam 7.5 MG Oral Tablet meloxicam 7.5 mg tablet meloxicam 7 .5 mg tablet completed meloxicam 7.5 MG Oral Tablet R[place] ([facility]) Metoclopramide 10 MG Oral Tablet metoclopramide 10 mg tablet metoclopramide 10 mg tablet completed metocloprami de 10 MG Oral Tablet R[place] ([facility]) Ondansetron 4 MG Oral Tablet ondansetron HCl 4 mg tabl et ondansetron HCl 4 mg tablet completed ondansetron 4 M G Oral Tablet R[place] ([facility]) Sumatriptan 25 MG Oral Tablet sumatriptan 25 mg tablet sumat riptan 25 mg tablet completed sumatriptan 25 MG Oral Tablet [place] ([facility]) duloxetine 30 MG Delayed Release Oral Ca psule duloxetine 30 mg capsule,delayed release TAKE ONE CAPSULE BY MOUTH EVERY DAY duloxetine 30 mg capsule,delayed release TAKE ONE CAPSULE BY MOUTH EVERY DAY completed duloxetine 30 MG Delayed Release Oral Capsule ROLANDO ([facility]) Fluzone Quad (PF) 60 mcg (15 m cg x 4)/0.5 mL IM syringe INJECT INTRAMUSCULARLY IN THE LEFT ARM [id number] compl eted 0.5 ML influenza A virus A/[place] (H1N1) antigen 0.03 MG/ML / influenza A virus A/[place] (H3N2) antigen 0.03 MG/ML / influenza B virus B/[place] antigen 0.03 MG/ML / influenza B virus B/[facility] antigen 0.03 MG/ML Prefilled Syringe [Fluzone Quadrivalent ] ROLANDO ([facility]) Divalproex Sodium 250 MG Delayed Release Oral Tablet divalproex 250 mg tablet,delayed release divalproex 250 mg tablet,delayed release completed divalproex sodium 250 MG Delayed Release Oral Tablet [place] ([facility]) Ondansetron 8 MG Oral Tablet ondansetron HCl 8 mg tabl et ondansetron HCl 8 mg tablet completed ondansetron 8 M G Oral Tablet [place] ([facility]) Divalproex Sodium 250 MG Delayed Release Oral Tablet divalproex 250 mg tablet,delayed release divalproex 250 mg tablet,delayed release completed divalproex sodium 250 MG Delayed Release Oral Tablet [place] ([facility]) meloxicam 7.5 MG Oral Tablet meloxicam 7.5 mg tablet meloxicam 7 .5 mg tablet completed meloxicam 7.5 MG Oral Tablet [place] ([facility]) topiramate 50 MG Oral Tablet topiramate 50 mg tablet a s needed topiramate 50 mg tablet as needed completed topir amate 50 MG Oral Tablet [place] ([facility]) 0.5 ML pneumococcal capsular polysacchar triston [...] Prefilled Syringe [Pneumovax 23] ROLANDO ([facility]) Metoclopramide 10 MG Oral Tablet metoclopramide 10 mg tablet metoclopramide 10 mg tablet completed metocloprami de 10 MG Oral Tablet [place] ([facility]) Acetaminophen 325 MG / Hydrocodone Juanita trate 5 MG Oral Tablet hydrocodone 5 mg- acetaminophen 325 mg tablet as needed hydrocodone 5 mg-acetaminophen 325 mg tablet as needed completed acetaminophen 325 MG / hydrocodone bitartrate 5 MG Oral Tablet R[place] ([facility]) Metoclopramide 10 MG Oral Tablet metoclopramide 10 mg tablet metoclopramide 10 mg tablet completed metocloprami de 10 MG Oral Tablet [place]O ([facility]) Acetaminophen 325 MG / Hydrocodone Juanita trate 5 MG Oral Tablet hydrocodone 5 mg- acetaminophen 325 mg tablet as needed hydrocodone 5 mg-acetaminophen 325 mg tablet as needed completed acetaminophen 325 MG / hydrocodone bitartrate 5 MG Oral Tablet [place] ([facility]) Acetaminophen 325 MG / Hydrocodone Juanita trate 7.5 MG Oral Tablet hydrocodone 7.5 mg-acetaminophen 325 mg tablet hydrocodone 7.5 mg-acetaminophen 325 mg tablet completed acetaminophen 325 MG / hydrocodone bitartrate 7.5 MG Oral Tablet [place] ([facility]) Ondansetron 4 MG Oral Tablet ondansetron HCl 4 mg tabl et ondansetron HCl 4 mg tablet completed ondansetron 4 M G Oral Tablet [place] ([facility]) Flucelvax Quad [id number] 60 mcg (15 mcg x 4)/0.5 mL IM suspension [id number] completed influenza A vi jeremías A/[place] (H3N2) antigen 0.03 MG/ML / influenza A virus A[facility] (H[facility]1) antigen 0.03 MG/ML / influenza B virus B/ antigen 0.03 MG/ML / influenza B virus B/[facility]/[id number]/2016 antigen 0.03 MG/ML Injectable Suspension ROLANDO ([facility]) Divalproex Sodium 500 MG Delayed Release Oral Tablet divalproex 500 mg tablet,delayed release divalproex 500 mg tablet,delayed release completed divalproex sodium 500 MG Delayed Release Oral Tablet [place] ([facility]) 24 HR Metformin hydrochloride 500 MG Ext ended Release Oral Tablet metformin ER 500 mg tablet,extended release 24 hr metformin ER 500 mg tablet,extended rele ase 24 hr completed 24 HR m etformin hydrochloride 500 MG Extended Release Oral Tablet [place] ([facility]) topiramate 50 MG Oral Tablet topiramate 50 mg tablet a s needed topiramate 50 mg tablet as needed completed topir amate 50 MG Oral Tablet [place] ([facility]) carvedilol 3.125 MG Oral Tablet carvedilol 3.125 mg ta blet carvedilol 3.125 mg tablet completed carvedilol 3.12 5 MG Oral Tablet [place] ([facility]) zonisamide 50 MG Oral Capsule zonisamide 50 mg capsule as needed zonisamide 50 mg capsule as needed completed z onisamide 50 MG Oral Capsule [place] ([facility]) doxycycline hyclate 100 MG Oral Tablet doxycycline hyc late 100 mg tablet doxycycline hyclate 100 mg tablet comp leted doxycycline hyclate 100 MG Oral Tablet [place] ([facility]) 0.5 ML pneumococcal capsular polysacchar triston [...] Prefilled Syringe [Pneumovax 23] ROLANDO ([facility]) carvedilol 3.125 MG Oral Tablet carvedilol 3.125 mg ta blet carvedilol 3.125 mg tablet completed carvedilol 3.12 5 MG Oral Tablet [place] ([facility]) carvedilol 3.125 MG Oral Tablet carvedilol 3.125 mg ta blet carvedilol 3.125 mg tablet completed carvedilol 3.12 5 MG Oral Tablet [place] ([facility]) Simvastatin 20 MG Oral Tablet simvastatin 20 mg tablet one by mouth once daily simvastatin 20 mg tablet one by mouth once daily completed simvastatin 20 MG Oral Tablet [place] ([facility]) Amoxicillin 875 MG / Clavulanate 125 MG Oral Tablet amoxicillin 875 mg-potassium clavulanate 125 mg tablet amoxicillin 875 mg-potassium clavulanate 125 mg tablet completed amoxicillin 875 MG / clavulanate 125 MG Oral Tablet [place] ([facility]) Metoclopramide 10 MG Oral Tablet metoclopramide 10 mg tablet metoclopramide 10 mg tablet completed metocloprami de 10 MG Oral Tablet [place] ([facility]) Ondansetron 8 MG Oral Tablet ondansetron HCl 8 mg tabl et ondansetron HCl 8 mg tablet completed ondansetron 8 M G Oral Tablet [place] ([facility]) meloxicam 7.5 MG Oral Tablet meloxicam 7.5 mg tablet meloxicam 7 .5 mg tablet completed meloxicam 7.5 MG Oral Tablet [place] ([facility]) Ondansetron 8 MG Disintegrating Oral Tab let ondansetron 8 mg disintegrating tablet ondansetron 8 mg disintegrating tablet completed ondansetron 8 MG Disintegrating Oral Tablet [place] ([facility]) topiramate 50 MG Oral Tablet topiramate 50 mg tablet a s needed topiramate 50 mg tablet as needed completed topir amate 50 MG Oral Tablet [place] ([facility]) zonisamide 50 MG Oral Capsule zonisamide 50 mg capsule as needed zonisamide 50 mg capsule as needed completed z onisamide 50 MG Oral Capsule [place] ([facility]) Acetaminophen 325 MG / Hydrocodone Juanita trate 5 MG Oral Tablet hydrocodone 5 mg- acetaminophen 325 mg tablet as needed hydrocodone 5 mg-acetaminophen 325 mg tablet as needed completed acetaminophen 325 MG / hydrocodone bitartrate 5 MG Oral Tablet [place] ([facility]) Flucelvax Quad 60 mcg (15 mcg x 4)/0.5 mL intramuscular susp INJECT 0.5ML DIRECTED [id number] completed influenza A virus A/ (H3N2) antigen 0.03 MG/ML / influenza A virus A/[place] (H1N1) antigen 0.03 MG/ML / influenza B virus B/ antigen 0.03 MG/ML / influenza B virus B/[facility]/[id number]/2016 antigen 0.03 MG/ML Injectable Suspension [Flucelvax Quadrivalent ] ROL[place]O ([facility]) Ondansetron 8 MG Oral Tablet ondansetron HCl 8 mg tabl et ondansetron HCl 8 mg tablet completed ondansetron 8 M G Oral Tablet [place] ([facility]) Acetaminophen 325 MG / Hydrocodone Juanita trate 7.5 MG Oral Tablet hydrocodone 7.5 mg-acetaminophen 325 mg tablet hydrocodone 7.5 mg-acetaminophen 325 mg tablet completed acetaminophen 325 MG / hydrocodone bitartrate 7.5 MG Oral Tablet [place] ([facility]) Divalproex Sodium 500 MG Delayed Release Oral Tablet divalproex 500 mg tablet,delayed release divalproex 500 mg tablet,delayed release completed divalproex sodium 500 MG Delayed Release Oral Tablet [place] ([facility]) 24 HR Metformin hydrochloride 500 MG Ext ended Release Oral Tablet metformin ER 500 mg tablet,extended release 24 hr metformin ER 500 mg tablet,extended rele ase 24 hr completed 24 HR m etformin hydrochloride 500 MG Extended Release Oral Tablet [place] ([facility]) carvedilol 3.125 MG Oral Tablet carvedilol 3.125 mg ta blet carvedilol 3.125 mg tablet completed carvedilol 3.12 5 MG Oral Tablet [place] ([facility]) Allopurinol 100 MG Oral Tablet allopurinol 100 mg tabl et allopurinol 100 mg tablet completed allopurinol 100 MG Oral Tablet [place] ([facility]) Fluzone Quad [id number] (PF) 60 mcg (15 m cg x 4)/0.5 mL IM syringe INJECT INTRAMUSCULARLY IN THE LEFT ARM [id number] compl eted 0.5 ML influenza A virus A/[place] (H1N1) antigen 0.03 MG/ML / influenza A virus A/ (H3N2) antigen 0.03 MG/ML / influenza B virus B/ antigen 0.03 MG/ML / [facility] MG/ML Prefilled Syringe [Fluzone Quadrivalent ] R[place]O ([facility]) 0.5 ML pneumococcal capsular polysacchar triston [...] Prefilled Syringe [Pneumovax 23] [place] ([facility]) Sumatriptan 25 MG Oral Tablet sumatriptan 25 mg tablet sumat riptan 25 mg tablet completed sumatriptan 25 MG Oral Tablet [place] ([facility]) doxycycline hyclate 100 MG Oral Tablet doxycycline hyc late 100 mg tablet doxycycline hyclate 100 mg tablet comp leted doxycycline hyclate 100 MG Oral Tablet [place] ([facility]) zonisamide 50 MG Oral Capsule zonisamide 50 mg capsule as needed zonisamide 50 mg capsule as needed completed z onisamide 50 MG Oral Capsule [place] ([facility]) doxycycline hyclate 100 MG Oral Tablet doxycycline hyc late 100 mg tablet doxycycline hyclate 100 mg tablet comp leted doxycycline hyclate 100 MG Oral Tablet [place] ([facility]) Naproxen 250 MG Oral Tablet naproxen 250 mg tablet as needed naproxen 250 mg tablet as needed completed napro xen 250 MG Oral Tablet [place] ([facility]) Naproxen 250 MG Oral Tablet naproxen 250 mg tablet as needed naproxen 250 mg tablet as needed completed napro xen 250 MG Oral Tablet [place] ([facility]) Allopurinol 100 MG Oral Tablet allopurinol 100 mg tabl et allopurinol 100 mg tablet completed allopurinol 100 MG Oral Tablet [place] ([facility]) Allopurinol 100 MG Oral Tablet allopurinol 100 mg tabl et allopurinol 100 mg tablet completed allopurinol 100 MG Oral Tablet [place] ([facility]) Flucelvax Quad [id number] 60 mcg (15 mcg x 4)/0.5 mL intramuscular susp INJECT 0.5ML DIRECTED [id number] completed influenza A virus A/ (H3N2) antigen 0.03 MG/ML / influenza A virus A/[place] (H1N1) antigen 0.03 MG/ML / influenza B virus B/ antigen 0.03 MG/ML / influenza B virus B/[facility]/[id number]/2016 antigen 0.03 MG/ML Injectable Suspension [Flucelvax Quadrivalent ] [place] ([facility]) Oseltamivir 75 MG Oral Capsule oseltamivir 75 mg capsu le oseltamivir 75 mg capsule completed oseltamivir 75 MG Oral Capsule [place] ([facility]) Naproxen 250 MG Oral Tablet naproxen 250 mg tablet as needed naproxen 250 mg tablet as needed completed napro xen 250 MG Oral Tablet [place] ([facility]) Sumatriptan 25 MG Oral Tablet sumatriptan 25 mg tablet sumat riptan 25 mg tablet completed sumatriptan 25 MG Oral Tablet [place] ([facility]) Sumatriptan 25 MG Oral Tablet sumatriptan 25 mg tablet sumat riptan 25 mg tablet completed sumatriptan 25 MG Oral Tablet [place] ([facility]) Ondansetron 8 MG Oral Tablet ondansetron HCl 8 mg tabl et ondansetron HCl 8 mg tablet completed ondansetron 8 M G Oral Tablet [facility] ([facility]) zonisamide 50 MG Oral Capsule zonisamide 50 mg capsule as needed zonisamide 50 mg capsule as needed completed z onisamide 50 MG Oral Capsule [facility] ([facility]) 24 HR Metformin hydrochloride 500 MG Ext ended Release Oral Tablet metformin ER 500 mg tablet,extended release 24 hr metformin ER 500 mg tablet,extended rele ase 24 hr completed 24 HR m etformin hydrochloride 500 MG Extended Release Oral Tablet [facility] ([facility]) Ondansetron 4 MG Oral Tablet ondansetron HCl 4 mg tabl et ondansetron HCl 4 mg tablet completed ondansetron 4 M G Oral Tablet [facility] ([facility]) Oseltamivir 75 MG Oral Capsule oseltamivir 75 mg capsu le oseltamivir 75 mg capsule completed oseltamivir 75 MG Oral Capsule [facility] ([facility]) 24 HR Metformin hydrochloride 500 MG Ext ended Release Oral Tablet metformin ER 500 mg tablet,extended release 24 hr metformin ER 500 mg tablet,extended rele ase 24 hr completed 24 HR m etformin hydrochloride 500 MG Extended Release Oral Tablet [facility] ([facility]) Oseltamivir 75 MG Oral Capsule oseltamivir 75 mg capsu le oseltamivir 75 mg capsule completed oseltamivir 75 MG Oral Capsule [facility] ([facility]) Amoxicillin 875 MG / Clavulanate 125 MG Oral Tablet amoxicillin 875 mg-potassium clavulanate 125 mg tablet amoxicillin 875 mg-potassium clavulanate 125 mg tablet completed amoxicillin 875 MG / clavulanate 125 MG Oral Tablet [facility] ([facility]) topiramate 25 MG Oral Tablet topiramate 25 mg tablet TAKE ONE TABLET BY MOUTH TWICE A DAY DIRECTED topiramate 25 mg tablet TAKE ONE TABLET BY MOUTH TWICE A DAY DIRECTED completed topira mate 25 MG Oral Tablet [facility] ([facility]) Divalproex Sodium 250 MG Delayed Release Oral Tablet divalproex 250 mg tablet,delayed release divalproex 250 mg tablet,delayed release completed divalproex sodium 250 MG Delayed Release Oral Tablet [facility] ([facility]) meloxicam 7.5 MG Oral Tablet meloxicam 7.5 mg tablet meloxicam 7 .5 mg tablet completed meloxicam 7.5 MG Oral Tablet [facility] ([facility]) meloxicam 7.5 MG Oral Tablet meloxicam 7.5 mg tablet meloxicam 7 .5 mg tablet completed meloxicam 7.5 MG Oral Tablet [facility] ([facility]) Naproxen 250 MG Oral Tablet naproxen 250 mg tablet as needed naproxen 250 mg tablet as needed completed napro xen 250 MG Oral Tablet [facility] ([facility]) Acetaminophen 325 MG / Hydrocodone Juanita trate 7.5 MG Oral Tablet hydrocodone 7.5 mg-acetaminophen 325 mg tablet hydrocodone 7.5 mg-acetaminophen 325 mg tablet completed acetaminophen 325 MG / hydrocodone bitartrate 7.5 MG Oral Tablet [facility] ([facility]) Sumatriptan 25 MG Oral Tablet sumatriptan 25 mg tablet sumat riptan 25 mg tablet completed sumatriptan 25 MG Oral Tablet [facility] ([facility]) Ondansetron 4 MG Oral Tablet ondansetron HCl 4 mg tabl et ondansetron HCl 4 mg tablet completed ondansetron 4 M G Oral Tablet [facility] ([facility]) doxycycline hyclate 100 MG Oral Tablet doxycycline hyc late 100 mg tablet doxycycline hyclate 100 mg tablet comp leted doxycycline hyclate 100 MG Oral Tablet [facility] ([facility]) Divalproex Sodium 500 MG Delayed Release Oral Tablet divalproex 500 mg tablet,delayed release divalproex 500 mg tablet,delayed release completed divalproex sodium 500 MG Delayed Release Oral Tablet [facility] ([facility]) Fluzone Quad [id number] (PF) 60 mcg (15 m cg x 4)/0.5 mL IM syringe INJECT INTRAMUSCULARLY IN THE LEFT ARM [id number] compl eted 0.5 ML influenza A virus A/ (H1N1) antigen 0.03 MG/ML / influenza A virus A/ (H3N2) antigen 0.03 MG/ML / influenza B virus B/ antigen 0.03 MG/ML / influenza B virus B/[facility] antigen 0.03 MG/ML Prefilled Syringe [Fluzone Quadrivalent ] [facility] ([facility]) Naproxen 250 MG Oral Tablet naproxen 250 mg tablet as needed naproxen 250 mg tablet as needed completed napro xen 250 MG Oral Tablet [facility] ([facility]) duloxetine 30 MG Delayed Release Oral Ca psule duloxetine 30 mg capsule,delayed release TAKE ONE CAPSULE BY MOUTH EVERY DAY duloxetine 30 mg capsule,delayed release TAKE ONE CAPSULE BY MOUTH EVERY DAY completed duloxetine 30 MG Delayed Release Oral Capsule [facility] ([facility]) Amoxicillin 875 MG / Clavulanate 125 MG Oral Tablet amoxicillin 875 mg-potassium clavulanate 125 mg tablet amoxicillin 875 mg-potassium clavulanate 125 mg tablet completed amoxicillin 875 MG / clavulanate 125 MG Oral Tablet [facility] ([facility]) carvedilol 3.125 MG Oral Tablet carvedilol 3.125 mg ta blet carvedilol 3.125 mg tablet completed carvedilol 3.12 5 MG Oral Tablet [facility] ([facility]) Sumatriptan 25 MG Oral Tablet sumatriptan 25 mg tablet sumat riptan 25 mg tablet completed sumatriptan 25 MG Oral Tablet [facility] ([facility]) meloxicam 7.5 MG Oral Tablet meloxicam 7.5 mg tablet meloxicam 7 .5 mg tablet completed meloxicam 7.5 MG Oral Tablet [facility] ([facility]) Divalproex Sodium 500 MG Delayed Release Oral Tablet divalproex 500 mg tablet,delayed release divalproex 500 mg tablet,delayed release completed divalproex sodium 500 MG Delayed Release Oral Tablet [facility] ([facility]) Naproxen 250 MG Oral Tablet naproxen 250 mg tablet as needed naproxen 250 mg tablet as needed completed napro xen 250 MG Oral Tablet [facility] ([facility]) Acetaminophen 325 MG / Hydrocodone Juanita trate 7.5 MG Oral Tablet hydrocodone 7.5 mg-acetaminophen 325 mg tablet hydrocodone 7.5 mg-acetaminophen 325 mg tablet completed acetaminophen 325 MG / hydrocodone bitartrate 7.5 MG Oral Tablet [facility] ([facility]) Sumatriptan 25 MG Oral Tablet sumatriptan 25 mg tablet sumat riptan 25 mg tablet completed sumatriptan 25 MG Oral Tablet [facility] ([facility]) icosapent ethyl 1000 MG Oral Capsule [Vascepa] Vascepa 1 gram capsule Vascepa 1 gram capsule completed i cosapent ethyl 1000 MG Oral Capsule [Vascepa] [facility] ([facility]) Oseltamivir 75 MG Oral Capsule oseltamivir 75 mg capsu le oseltamivir 75 mg capsule completed oseltamivir 75 MG Oral Capsule [facility] ([facility]) Sumatriptan 25 MG Oral Tablet sumatriptan 25 mg tablet sumat riptan 25 mg tablet completed sumatriptan 25 MG Oral Tablet [facility] ([facility]) 0.5 ML pneumococcal capsular polysacchar triston [...] Prefilled Syringe [Pneumovax 23] [facility] ([facility]) Acetaminophen 325 MG / Hydrocodone Juanita trate 7.5 MG Oral Tablet hydrocodone 7.5 mg-acetaminophen 325 mg tablet hydrocodone 7.5 mg-acetaminophen 325 mg tablet completed acetaminophen 325 MG / hydrocodone bitartrate 7.5 MG Oral Tablet [facility] ([facility]) Flucelvax Quad [id number] 60 mcg (15 mcg x 4)/0.5 mL IM suspension [id number] completed influenza A vi jeremías A/[place] (H3N2) antigen 0.03 MG/ML / influenza A virus A//[id number] (H1N1) antigen 0.03 MG/ML / influenza B virus B/ antigen 0.03 MG/ML / influenza B virus B//[id number]/2016 antigen 0.03 MG/ML Injectable Suspension [facility] ([facility]) Ondansetron 4 MG Disintegrating Oral Tab let ondansetron [address] ONE TABLET BY MOUTH THREE TIMES A DAY FOR 7 DAYS ondansetron [address] ONE TABLET BY MOUTH THREE TIMES A DAY FOR 7 DAYS completed ondansetron 4 MG Disintegrating Oral Tablet [facility] ([facility]) Amoxicillin 875 MG / Clavulanate 125 MG Oral Tablet amoxicillin 875 mg-potassium clavulanate 125 mg tablet amoxicillin 875 mg-potassium clavulanate 125 mg tablet completed amoxicillin 875 MG / clavulanate 125 MG Oral Tablet [facility] ([facility]) Divalproex Sodium 500 MG Delayed Release Oral Tablet divalproex 500 mg tablet,delayed release divalproex 500 mg tablet,delayed release completed divalproex sodium 500 MG Delayed Release Oral Tablet [facility] ([facility]) Simvastatin 20 MG Oral Tablet simvastatin 20 mg tablet one by mouth once daily simvastatin 20 mg tablet one by mouth once daily completed simvastatin 20 MG Oral Tablet [facility] ([facility]) Amoxicillin 875 MG / Clavulanate 125 MG Oral Tablet amoxicillin 875 mg-potassium clavulanate 125 mg tablet amoxicillin 875 mg-potassium clavulanate 125 mg tablet completed amoxicillin 875 MG / clavulanate 125 MG Oral Tablet [facility] ([facility]) Simvastatin 20 MG Oral Tablet simvastatin 20 mg tablet one by mouth once daily simvastatin 20 mg tablet one by mouth once daily completed simvastatin 20 MG Oral Tablet [facility] ([facility]) Acetaminophen 325 MG / Hydrocodone Juanita trate 5 MG Oral Tablet hydrocodone 5 mg- acetaminophen 325 mg tablet as needed hydrocodone 5 mg-acetaminophen 325 mg tablet as needed completed acetaminophen 325 MG / hydrocodone bitartrate 5 MG Oral Tablet [facility] ([facility]) Acetaminophen 325 MG / Hydrocodone Juanita trate 5 MG Oral Tablet hydrocodone 5 mg- acetaminophen 325 mg tablet as needed hydrocodone 5 mg-acetaminophen 325 mg tablet as needed completed acetaminophen 325 MG / hydrocodone bitartrate 5 MG Oral Tablet [facility] ([facility]) Insurance Providers Payer name Policy type / Coverage type Policy ID Covered green party ID Covered green party's relationship to lyles Policy Lyles Plan Information STATE INSURANCE FUND [id number] SP [id number] [facility] [id number] 89 [id number] BCBS EMPIRE RICK DIV [id number] SP [id number] [facility] [id number] SP [id number] [employer]ARE [id number] SP [id number] [employer] [id number] SP [id number] BCBS EMPIRE RICK DIV [id number] SP [id number] BCBS EMPIRE RICK DIV [id number] SP [id number] [facility] [id number] SP [id number] [facility] [id number] SP [id number] [facility] INSURANCE GULF [facility] [id number] SP [id number] BCBS EMPIRE RICK DIV [id number] SP [id number] BC BLUE CARD 1 [id number] [facility] [id number] SP [id number] BCBS EMPIRE RICK DIV [id number] SP [id number] EMPIRE PLAN CLAIMS 1 [id number] 1 [id number] Workers 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 WorkComp Health Claim [id number] Emplo barrientos [id number] Work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 [place] Work[place] Health Claim [id number] Employee [id number] Needs Workers Comp Information WorkComp Health Claim [id number] Employee [id number] Workers 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 WorkComp Health Claim [id number] Emplo barrientos [id number] [employer] [id number] 2..[id number] .[id number] Self [id number] [place] [facility] Health Maintenance Organization (HMO) 8 [id number] ..[id number] Self [id number] [employer] [id number] ..[id number] .99.1037.27328.0 Self [id number] [facility] [employer] [id number] .840.1.496269.3.227 .99.1037.58040.0 Self [id number] [facility] [employer] [id number] ..840.1.711076.3.227 .99.1037.92627.0 Self [id number] [facility] Commercial [id number] 2.16840.1.439348.3.227 .99.1037.84282.0 Self [id number] [facility] ([facility]) [id number] [id number].375253.0 Self [id number] [employer] [id number] 2.16840.1.275223.3.227 .99.1037.97272.0 Self [id number] [facility] [employer] [id number] 2.16840.1.310829.3.227 .99.1037.10040.0 Self [id number] [place] [employer] [id number] 2.160.1.642018.3.[id number] [facility] [employer] [id number] 2.16840.1.676031.3.227.99.1767.1467.0 Self [id number] [facility] [place] [employer] [id number] 2.16840.1.041704.3.227.99.1767.1467.0 Self [id number] [facility] ([facility]) 8 [id number] 2.16840.1.360607.3.227.99.991.118933.0 Self [id number] [employer] [id number] 2.16840.1.279805.3.227 .99.1037.66744.0 Self [id number] [facility] [place] Commercial [id number] 2.16840.1.307476.3.227.99.1767.1467.0 Self [id number] [employer] [place] [employer] [id number] 2.16840.1.671938.3.227.99.1767.1467.0 Self [id number] [facility] [place] [employer] [id number] 2.16840.1.012831.3.227.99.1767.1467.[id number] [facility] [employer] [id number] 2.16840.1.935106.3.227.99.1767.1467.0 Self [id number] [facility] [place] Commercial [id number] 2.16840.1.810388.3.227.99.1767.1467.0 Self [id number] [facility] [place] Commercial [id number] 2.16840.1.705035.3.227.99.1767.1467.0 Self [id number] [facility] Health [facility] Organization (HMO) 8 [id number] 2.16840.1.897433.3.227.99.991.250502.0 Self [id number] [facility] [employer] [id number] 2.0.1.664854.3.227 .99.1037.43404.0 Self [id number] [facility] [place] Commercial [id number] 2.0.1.153418.3.227.99.1767.1467.0 Self [id number] [facility] O [id number] S [id number] [facility] O [id number] S [id number] [facility] Health Maintenance Organization (HMO) 8 [id number] 2.0.1.372542.3.227.99.991.087139.0 Self [id number] [facility] [place] Commercial [id number] 2.0.1.839162.3.227.99.1767.1467.0 Self [id number] [facility] Commercial [id number] 2.0.1.277423.3.227 .99.1037.24958.0 Self [id number] [facility] [place] Commercial [id number] 2.0.1.328942.3.227.99.1767.1467.0 Self [id number] [facility] [place] Commercial [id number] 2.16840.1.488232.3.227.99.1767.1467.0 Self [id number] [facility] [place] Commercial [id number] 2.0.1.306876.3.227.99.1767.1467.0 Self [id number] [place] [facility] Health Maintenance Organization (HMO) 8 [id number] 2.16.840.1.563325.3.227.99.991.939575.0 Self [id number] [facility] [place] Commercial [id number] 2.16.840.1.870073.3.227.99.1767.1467.0 Self [id number] [facility] [place] Commercial [id number] 2.16.840.1.412061.3.227.99.1767.1467.0 Self [id number] [facility] [place] Commercial [id number] 2.16.840.1.539199.3.227.99.1767.1467.0 Self [id number] [place] [facility] Health Maintenance Organization (HMO) 8 [id number] 2.16.840.1.132673.3.227.99.991.183087.0 Self [id number] [facility] [employer] [id number] 2.16.840.1.326046.3.227 .99.1037.17879.0 Self [id number] [place] [facility] Health Maintenance Organization (HMO) [id number] Self [facility] [place] Commercial [id number] Self [facility] [employer] [id number]37 .16571.0 Self [place] ([place], [place]) Medicare Primary [id number] Self [place] [facility] [id number] Self SELF PAY 2 UNAVAILABLE 1 UNAVAILA BLE STATE INSURANCE FUND [id number] SP [id number] STATE INSURANCE FUND [id number] S [id number] [facility] INSURANCE FUND [id number] S [id number] STATE INSURANCE FUND [id number] SP [id number] STATE INSURANCE FUND [id number] SP [id number] STATE INSURANCE FUND [id number] SP [id number] STATE INSURANCE FUND [id number] SP [id number] [facility]) O [id number] S [id number] [employer] O [id number] S [id number] [facility] [place] Commercial [id number] Self [id number] [facility] [place] Commercial [id number] Self [id number] [facility] [place] Commercial [id number] Self [id number] BCBS EMPIRE RICK DIV [id number] SP [id number] [facility] Commercial [id number] Self [id number] [facility] [place] Commercial [id number] Self [id number] [facility] [place] [employer] [id number] Self [id number] [facility] Health Maintenance Organization (O) 8 [id number] Self [id number] [place] Plan F [id number] SELF [id number] [facility] Health Maintenance Organization (HMO) 8 [id number] [facility] Commercial [id number] Self [id number] Problems, Conditions, and Diagnoses Code Display Name Description Problem Type Effective Dates Data Source(s) G43.709 [id number] Chronic migraine without aura or status m igrainosus Problem 01/08/2021 12:00:00 AM EDT eCW1 (Formerly [facility]) Surgeries/Procedures Procedure Description Date Indications Data Source(s) MANUAL THERAPY TQS 1/> REGIONS EACH 15 MINUTES 021 12:00:00 AM EST [facility] ([facility]) APPLICATION MODALITY 1/> AREAS HOT/COLD PACKS 07/20/20 21 12:00:00 AM EST [facility] ([facility]) APPL MODALITY 1/> AREAS ELEC STIMJ EA 15 MIN 1 12:00:00 AM EST [facility] ([facility]) THERAPEUTIC PX 1/> AREAS EACH 15 MIN EXERCISES 12:00:00 AM EST [facility] ([facility]) APPLICATION MODALITY 1/> AREAS HOT/COLD PACKS 07/16/20 21 12:00:00 AM EST [facility] ([facility]) APPL MODALITY 1/> AREAS ELEC STIMJ EA 15 MIN 12:00:00 AM EST [facility] ([facility]) THERAPEUTIC PX 1/> AREAS EACH 15 MIN EXERCISES 12:00:00 AM EST [facility] ([facility]) MANUAL THERAPY TQS 1/> REGIONS EACH 15 MINUTES 12:00:00 AM EST [facility] ([facility]) Re-Eval Of PT Established Plan Of Care 20Mins Face To Face P T/Fam 07/10/2021 12:00:00 AM EDT [facility] ([facility]) APPL MODALITY 1/> AREAS ELEC STIMJ EA 15 MIN 12:00:00 AM EDT [facility] ([facility]) APPLICATION MODALITY 1/> AREAS HOT/COLD PACKS 07/10/20 21 12:00:00 AM EDT [facility] ([facility]) MANUAL THERAPY TQS 1/> REGIONS EACH 15 MINUTES 12:00:00 AM EDT [facility] ([facility]) APPLICATION MODALITY 1/> AREAS HOT/COLD PACKS 05/15/20 21 12:00:00 AM EDT [facility] ([facility]) APPL MODALITY 1/> AREAS ELEC STIMJ EA 15 MIN 12:00:00 AM EDT [facility] ([facility]) THERAPEUTIC PX 1/> AREAS EACH 15 MIN EXERCISES 021 12:00:00 AM EDT [facility] ([facility]) MANUAL THERAPY TQS 1/> REGIONS EACH 15 MINUTES 09/10/2 021 12:00:00 AM EDT [facility] ([facility] THERAPEUTIC PX 1/> AREAS EACH 15 MIN EXERCISES 021 12:00:00 AM EDT [facility] ([facility]) APPL MODALITY 1/> AREAS ELEC STIMJ EA 15 MIN 1 12:00:00 AM EDT [facility] ([facility] APPLICATION MODALITY 1/> AREAS HOT/COLD PACKS 05/08/20 21 12:00:00 AM EDT [facility] ([facility] ) MANUAL THERAPY TQS 1/> REGIONS EACH 15 MINUTES 12:00:00 AM EDT [facility] ([facility] ) APPLICATION MODALITY 1/> AREAS HOT/COLD PACKS 05/01/20 21 12:00:00 AM EDT [facility] ([facility] ) APPL MODALITY 1/> AREAS ELEC STIMJ EA 15 MIN 1 12:00:00 AM EDT [facility] ([facility] ) THERAPEUTIC PX 1/> AREAS EACH 15 MIN EXERCISES 021 12:00:00 AM EDT [facility] ([facility] ) MANUAL THERAPY TQS 1/> REGIONS EACH 15 MINUTES 021 12:00:00 AM EDT [facility] ([facility] ) APPL MODALITY 1/> AREAS ELEC STIMJ EA 15 MIN 1 12:00:00 AM EDT [facility] ([facility] ) THERAPEUTIC PX 1/> AREAS EACH 15 MIN EXERCISES 021 12:00:00 AM EDT [facility] ([facility] ) MANUAL THERAPY TQS 1/> REGIONS EACH 15 MINUTES 021 12:00:00 AM EDT [facility] ([facility] ) APPL MODALITY 1/> AREAS ELEC STIMJ EA 15 MIN 1 12:00:00 AM EDT [facility] ([facility] ) THERAPEUTIC PX 1/> AREAS EACH 15 MIN EXERCISES 021 12:00:00 AM EDT [facility] ([facility] ) MANUAL THERAPY TQS 1/> REGIONS EACH 15 MINUTES 021 12:00:00 AM EDT [facility] ([facility] ) MANUAL THERAPY TQS 1/> REGIONS EACH 15 MINUTES 021 12:00:00 AM EDT [facility] ([facility]) Re-Eval Of PT Established Plan Of Care 20Mins Face To Face P T/Fam 04/10/2021 12:00:00 AM EDT [facility] ([facility]) OFFICE OUTPATIENT VISIT 25 MINUTES 02/20/2021 12:00:00 AM EDT [facility] ([facility]) APPLICATION MODALITY 1/> AREAS HOT/COLD PACKS 01/17/20 12:00:00 AM EDT [facility] ([facility]) APPL MODALITY 1/> AREAS ELEC STIMJ EA 15 MIN 12:00:00 AM EDT [facility] ([facility]) THERAPEUTIC PX 1/> AREAS EACH 15 MIN EXERCISES 12:00:00 AM EDT [facility] ([facility]) MANUAL THERAPY TQS 1/> REGIONS EACH 15 MINUTES 12:00:00 AM EDT [facility] ([facility]) Re-Eval Of PT Established Plan Of Care 20Mins Face To Face P T/Fam 01/16/2021 12:00:00 AM EDT [facility] ([facility]) Therapeutic, Prophylactic Or Diagnostic Injection Subq/Im 01/15/2021 12:00:00 AM EDT [facility] APPLICATION MODALITY 1/> AREAS HOT/COLD PACKS 01/10/20 21 12:00:00 AM EDT [facility] ([facility]) THERAPEUTIC PX 1/> AREAS EACH 15 MIN EXERCISES 12:00:00 AM EDT [facility] ([facility]) MANUAL THERAPY TQS 1/> REGIONS EACH 15 MINUTES 021 12:00:00 AM EDT [facility] ([facility]) APPLICATION MODALITY 1/> AREAS HOT/COLD PACKS 01/03/20 21 12:00:00 AM EDT [facility] ([facility]) MANUAL THERAPY TQS 1/> REGIONS EACH 15 MINUTES 021 12:00:00 AM EDT [facility] ([facility]) APPLICATION MODALITY 1/> AREAS HOT/COLD PACKS 12/27/19 21 12:00:00 AM EDT [facility] ([facility]) MANUAL THERAPY TQS 1/> REGIONS EACH 15 MINUTES 021 12:00:00 AM EDT [facility] ([facility]) Physical Therapy Eval - Mod Complexity 12/19/2020 12:0 0:00 AM EDT [facility] ([facility]) OFFICE OUTPATIENT VISIT 40 MINUTES 12/02/2020 12:00:00 AM EDT [facility] ([facility]) Therapeutic, Prophylactic Or Diagnostic Injection Subq/Im 11/07/2020 12:00:00 AM EST [facility] ([facility] OFFICE OUTPATIENT VISIT 40 MINUTES 09/10/2020 12:00:00 AM EST [facility] ([facility]) Results ID Date Data Source [id number] 02/11/2021 11:18:00 AM EDT [facility] Name Value Range Interpretation Code Description Data Heena rce(s) Supporting Document(s) SARS-CoV-2 (COVID-19) RNA [Presence] in Respiratory specimen by ALEKSANDR with probe detection Not Detected [facility] This lab was ordered by [facility] and reported by [facility]. ID Date Data Source [id number] 02/11/2021 10:28:00 AM EDT [facility] Name Value Range Interpretation Code Description Data Heena rce(s) Supporting Document(s) SARS COVID ANTIGEN NEGATIVE [facility] This lab was ordered by [facility] nd reported by [facility]. ID Date Data Source [id number] 12/01/2020 12:00:00 AM EDT [facility] ([facility]) Name Value Range Interpretation Code Description Data Heena rce(s) Supporting Document(s) SARS-CoV-2 (COVID-19) RNA [Presence] in Respiratory specimen by ALEKSANDR with probe detection negative negative Sars-cov-2 [facility] ([facility]) ID Date Data Source [id number] 12/01/2020 12:00:00 AM EDT [facility] ([facility]) Name Value Range Interpretation Code Description Data Heena rce(s) Supporting Document(s) ID Date Data Source [id number] 12/01/2020 12:00:00 AM EDT [place] ([facility]) Name Value Range Interpretation Code Description Data Heena rce(s) Supporting Document(s) SARS-CoV-2 (COVID-19) RNA [Presence] in Respiratory specimen by ALEKSANDR with probe detection negative negative Sars-cov-2 [facility] ([facility]) ID Date Data Source [id number] 12/01/2020 12:00:00 AM EDT [place] ([facility]) Name Value Range Interpretation Code Description Data Heena rce(s) Supporting Document(s) ID Date Data Source [id number] 12/01/2020 12:00:00 AM EDT [place] ([facility]) Name Value Range Interpretation Code Description Data Heena rce(s) Supporting Document(s) SARS-CoV-2 (COVID-19) RNA [Presence] in Respiratory specimen by ALEKSANDR with probe detection negative negative Sars-cov-2 [facility] ([facility]) ID Date Data Source [id number] 12/01/2020 12:00:00 AM EDT [place] ([facility]) Name Value Range Interpretation Code Description Data Heena rce(s) Supporting Document(s) ID Date Data Source [id number] 12/01/2020 12:00:00 AM EDT [place] ([facility]) Name Value Range Interpretation Code Description Data Heena rce(s) Supporting Document(s) ID Date Data Source [id number] 12/01/2020 12:00:00 AM EDT [place] ([facility]) Name Value Range Interpretation Code Description Data Heena rce(s) Supporting Document(s) SARS-CoV-2 (COVID-19) RNA [Presence] in Respiratory specimen by ALEKSANDR with probe detection negative negative Sars-cov-2 [facility] ([facility]) ID Date Data Source [id number] 12/01/2020 12:00:00 AM EDT [place] ([facility]) Name Value Range Interpretation Code Description Data Heena rce(s) Supporting Document(s) ID Date Data Source [id number] 12/01/2020 12:00:00 AM EDT [place] ([facility]) Name Value Range Interpretation Code Description Data Heena rce(s) Supporting Document(s) SARS-CoV-2 (COVID-19) RNA [Presence] in Respiratory specimen by ALEKSANDR with probe detection negative negative Sars-cov-2 [place] ([facility]) ID Date Data Source [id number] 12/01/2020 12:00:00 AM EDT [place] ([facility]) Name Value Range Interpretation Code Description Data Heena rce(s) Supporting Document(s) ID Date Data Source [id number] 12/01/2020 12:00:00 AM EDT [place] ([facility]) Name Value Range Interpretation Code Description Data Heena rce(s) Supporting Document(s) SARS-CoV-2 (COVID-19) RNA [Presence] in Respiratory specimen by ALEKSANDR with probe detection negative negative Sars-cov-2 [place] ([facility]) ID Date Data Source [id number] 12/01/2020 12:00:00 AM EDT [place] ([facility]) Name Value Range Interpretation Code Description Data Heena rce(s) Supporting Document(s) ID Date Data Source [id number] 12/01/2020 12:00:00 AM EDT [facility] Name Value Range Interpretation Code Description Data Heena rce(s) Supporting Document(s) SARS-CoV-2 NEGATIVE [facility] This lab was ordered by [facility] and reported by [employer]. ID Date Data Source [id number] 12/01/2020 12:00:00 AM EDT [place] ([facility]) Name Value Range Interpretation Code Description Data Heena rce(s) Supporting Document(s) SARS-CoV-2 (COVID-19) RNA [Presence] in Respiratory specimen by ALEKSANDR with probe detection negative negative Sars-cov-2 [facility] ([facility]) ID Date Data Source [id number] 09/10/2020 08:56:00 AM EST [facility] ([facility]) Name Value Range Interpretation Code Description Data Heena rce(s) Supporting Document(s) Glucose [Mass/volume] in Serum or Plasma 140 [facility] ([facility]) ID Date Data Source [id number] 09/08/2020 12:00:00 AM EST [place] ([facility]) Name Value Range Interpretation Code Description Data Heena rce(s) Supporting Document(s) SARS-CoV-2 (COVID-19) RNA [Presence] in Respiratory specimen by ALEKSANDR with probe detection negative negative Sars-cov-2 [facility] ([facility]) ID Date Data Source [id number] 09/08/2020 12:00:00 AM EST [place] ([facility]) Name Value Range Interpretation Code Description Data Heena rce(s) Supporting Document(s) ID Date Data Source [id number] 09/08/2020 12:00:00 AM EST [place] ([facility]) Name Value Range Interpretation Code Description Data Heena rce(s) Supporting Document(s) SARS-CoV-2 (COVID-19) RNA [Presence] in Respiratory specimen by ALEKSANDR with probe detection negative negative Sars-cov-2 [facility] ([facility]) ID Date Data Source [id number] 09/08/2020 12:00:00 AM EST [place] ([facility]) Name Value Range Interpretation Code Description Data Heena rce(s) Supporting Document(s) ID Date Data Source [id number] 09/08/2020 12:00:00 AM EST [place] ([facility]) Name Value Range Interpretation Code Description Data Heena rce(s) Supporting Document(s) SARS-CoV-2 (COVID-19) RNA [Presence] in Respiratory specimen by ALEKSANDR with probe detection negative negative Sars-cov-2 [facility] ([facility]) ID Date Data Source [id number] 09/08/2020 12:00:00 AM EST [place] ([facility]) Name Value Range Interpretation Code Description Data Heena rce(s) Supporting Document(s) ID Date Data Source [id number] 09/08/2020 12:00:00 AM EST [place] ([facility]) Name Value Range Interpretation Code Description Data Heena rce(s) Supporting Document(s) SARS-CoV-2 (COVID-19) RNA [Presence] in Respiratory specimen by ALEKSANDR with probe detection negative negative Sars-cov-2 [facility] ([facility]) ID Date Data Source [id number] 09/08/2020 12:00:00 AM EST [place] ([facility]) Name Value Range Interpretation Code Description Data Heena rce(s) Supporting Document(s) ID Date Data Source [id number] 09/08/2020 12:00:00 AM EST [place] ([facility]) Name Value Range Interpretation Code Description Data Heena rce(s) Supporting Document(s) SARS-CoV-2 (COVID-19) RNA [Presence] in Respiratory specimen by ALEKSANDR with probe detection negative negative Sars-cov-2 [facility] ([facility]) ID Date Data Source [id number] 09/08/2020 12:00:00 AM EST [place] ([facility]) Name Value Range Interpretation Code Description Data Heena rce(s) Supporting Document(s) ID Date Data Source [id number] 09/08/2020 12:00:00 AM EST [place] ([facility]) Name Value Range Interpretation Code Description Data Heena rce(s) Supporting Document(s) SARS-CoV-2 (COVID-19) RNA [Presence] in Respiratory specimen by ALEKSANDR with probe detection negative negative Sars-cov-2 [facility] ([facility]) ID Date Data Source [id number] 09/08/2020 12:00:00 AM EST [place] ([facility]) Name Value Range Interpretation Code Description Data Heena rce(s) Supporting Document(s) ID Date Data Source [id number] 09/08/2020 12:00:00 AM EST [place] ([facility]) Name Value Range Interpretation Code Description Data Heena rce(s) Supporting Document(s) SARS-CoV-2 (COVID-19) RNA [Presence] in Respiratory specimen by ALEKSANDR with probe detection negative negative Sars-cov-2 [facility] ([facility]) ID Date Data Source [id number] 09/08/2020 12:00:00 AM EST [place] ([facility]) Name Value Range Interpretation Code Description Data Heena rce(s) Supporting Document(s) ID Date Data Source [id number] 09/08/2020 12:00:00 AM EST [facility] Name Value Range Interpretation Code Description Data Heena rce(s) Supporting Document(s) SARS-CoV-2 NEGATIVE [facility] This lab was ordered by [facility] and reported by [employer]. ID Date Data Source [id number] 09/08/2020 12:00:00 AM EST [place] ([facility]) Name Value Range Interpretation Code Description Data Heena rce(s) Supporting Document(s) SARS-CoV-2 (COVID-19) RNA [Presence] in Respiratory specimen by ALEKSANDR with probe detection negative negative Sars-cov-2 [place] ([facility]) ID Date Data Source [id number] 09/08/2020 12:00:00 AM EST [place] ([facility]) Name Value Range Interpretation Code Description Data Heena rce(s) Supporting Document(s) ID Date Data Source [id number] 09/08/2020 12:00:00 AM EST [place] ([facility]) Name Value Range Interpretation Code Description Data Heena rce(s) Supporting Document(s) SARS-CoV-2 (COVID-19) RNA [Presence] in Respiratory specimen by ALEKSANDR with probe detection negative negative Sars-cov-2 [facility] ([facility]) ID Date Data Source [id number] 09/08/2020 12:00:00 AM EST [place] ([facility]) Name Value Range Interpretation Code Description Data Heena rce(s) Supporting Document(s) ID Date Data Source [id number] 09/08/2020 12:00:00 AM EST [place] ([facility]) Name Value Range Interpretation Code Description Data Heena rce(s) Supporting Document(s) SARS-CoV-2 (COVID-19) RNA [Presence] in Respiratory specimen by ALEKSANDR with probe detection negative negative Sars-cov-2 [facility] ([facility]) ID Date Data Source [id number] 09/08/2020 12:00:00 AM EST [place] ([facility]) Name Value Range Interpretation Code Description Data Heena rce(s) Supporting Document(s) ID Date Data Source [id number] 09/08/2020 12:00:00 AM EST [facility] ([facility]) Name Value Range Interpretation Code Description Data Heena rce(s) Supporting Document(s) SARS-CoV-2 (COVID-19) RNA [Presence] in Respiratory specimen by ALEKSANDR with probe detection negative negative Sars-cov-2 [facility] ([facility]) ID Date Data Source [id number] 09/08/2020 12:00:00 AM EST [place] ([facility]) Name Value Range Interpretation Code Description Data Heena rce(s) Supporting Document(s) ID Date Data Source [id number] 08/13/2020 12:00:00 AM EST [place] ([facility]) Name Value Range Interpretation Code Description Data Heena rce(s) Supporting Document(s) SARS-CoV-2 (COVID-19) RNA [Presence] in Respiratory specimen by ALEKSANDR with probe detection negative negative Sars-cov-2 [facility] ([facility]) ID Date Data Source [id number] 08/13/2020 12:00:00 AM EST [place] ([facility]) Name Value Range Interpretation Code Description Data Heena rce(s) Supporting Document(s) ID Date Data Source [id number] 08/13/2020 12:00:00 AM EST [facility] ([facility]) Name Value Range Interpretation Code Description Data Heena rce(s) Supporting Document(s) SARS-CoV-2 (COVID-19) RNA [Presence] in Respiratory specimen by ALEKSANDR with probe detection negative negative Sars-cov-2 [facility] ([facility]) ID Date Data Source [id number] 08/13/2020 12:00:00 AM EST [place] ([facility]) Name Value Range Interpretation Code Description Data Heena rce(s) Supporting Document(s) ID Date Data Source [id number] 08/13/2020 12:00:00 AM EST [place] ([facility]) Name Value Range Interpretation Code Description Data Heena rce(s) Supporting Document(s) SARS-CoV-2 (COVID-19) RNA [Presence] in Respiratory specimen by ALEKSANDR with probe detection negative negative Sars-cov-2 [facility] ([facility]) ID Date Data Source [id number] 08/13/2020 12:00:00 AM EST [place] ([facility]) Name Value Range Interpretation Code Description Data Heena rce(s) Supporting Document(s) ID Date Data Source [id number] 08/13/2020 12:00:00 AM EST [place] ([facility]) Name Value Range Interpretation Code Description Data Heena rce(s) Supporting Document(s) SARS-CoV-2 (COVID-19) RNA [Presence] in Respiratory specimen by ALEKSANDR with probe detection negative negative Sars-cov-2 [facility] ([facility]) ID Date Data Source [id number] 08/13/2020 12:00:00 AM EST [place] ([facility]) Name Value Range Interpretation Code Description Data Heena rce(s) Supporting Document(s) ID Date Data Source [id number] 08/13/2020 12:00:00 AM EST [place] ([facility]) Name Value Range Interpretation Code Description Data Heena rce(s) Supporting Document(s) SARS-CoV-2 (COVID-19) RNA [Presence] in Respiratory specimen by ALEKSANDR with probe detection negative negative Sars-cov-2 [facility] ([facility]) ID Date Data Source [id number] 08/13/2020 12:00:00 AM EST [place] ([facility]) Name Value Range Interpretation Code Description Data Heena rce(s) Supporting Document(s) ID Date Data Source [id number] 08/13/2020 12:00:00 AM EST [place] ([facility]) Name Value Range Interpretation Code Description Data Heena rce(s) Supporting Document(s) SARS-CoV-2 (COVID-19) RNA [Presence] in Respiratory specimen by ALEKSANDR with probe detection negative negative Sars-cov-2 [facility] ([facility]) ID Date Data Source [id number] 08/13/2020 12:00:00 AM EST [place] ([facility]) Name Value Range Interpretation Code Description Data Heena rce(s) Supporting Document(s) ID Date Data Source [id number] 08/13/2020 12:00:00 AM EST [facility] ([facility]) Name Value Range Interpretation Code Description Data Heena rce(s) Supporting Document(s) SARS-CoV-2 (COVID-19) RNA [Presence] in Respiratory specimen by ALEKSANDR with probe detection negative negative Sars-cov-2 [facility] ([facility]) ID Date Data Source [id number] 08/13/2020 12:00:00 AM EST [place] ([facility]) Name Value Range Interpretation Code Description Data Heena rce(s) Supporting Document(s) ID Date Data Source [id number] 08/13/2020 12:00:00 AM EST [facility] ([facility]) Name Value Range Interpretation Code Description Data Heena rce(s) Supporting Document(s) SARS-CoV-2 (COVID-19) RNA [Presence] in Respiratory specimen by ALEKSANDR with probe detection negative negative Sars-cov-2 [facility] ([facility]) ID Date Data Source [id number] 08/13/2020 12:00:00 AM EST [facility] ([facility]) Name Value Range Interpretation Code Description Data Heena rce(s) Supporting Document(s) ID Date Data Source [id number] 08/13/2020 12:00:00 AM EST [facility] ([facility]) Name Value Range Interpretation Code Description Data Heena rce(s) Supporting Document(s) SARS-CoV-2 (COVID-19) RNA [Presence] in Respiratory specimen by ALEKSANDR with probe detection negative negative Sars-cov-2 [facility] ([facility]) ID Date Data Source [id number] 08/13/2020 12:00:00 AM EST [facility] ([facility]) Name Value Range Interpretation Code Description Data Heena rce(s) Supporting Document(s) ID Date Data Source [id number] 08/13/2020 12:00:00 AM EST [facility] Name Value Range Interpretation Code Description Data Heena rce(s) Supporting Document(s) SARS-CoV-2 [facility] This lab was ordered by [facility] and reported by [employer]. ID Date Data Source [id number] 08/13/2020 12:00:00 AM EST [facility] ([facility]) Name Value Range Interpretation Code Description Data Heena rce(s) Supporting Document(s) SARS-CoV-2 (COVID-19) RNA [Presence] in Respiratory specimen by ALEKSANDR with probe detection negative negative Sars-cov-2 [facility] ([facility]) ID Date Data Source [id number] 08/13/2020 12:00:00 AM EST [facility] ([facility]) Name Value Range Interpretation Code Description Data Heena rce(s) Supporting Document(s) ID Date Data Source [id number] 08/13/2020 12:00:00 AM EST [facility] ([facility]) Name Value Range Interpretation Code Description Data Heena rce(s) Supporting Document(s) SARS-CoV-2 (COVID-19) RNA [Presence] in Respiratory specimen by ALEKSANDR with probe detection negative negative Sars-cov-2 [facility] ([facility]) ID Date Data Source [id number] 08/13/2020 12:00:00 AM EST [facility] ([facility]) Name Value Range Interpretation Code Description Data Heena rce(s) Supporting Document(s) ID Date Data Source [id number] 08/13/2020 12:00:00 AM EST [facility] ([facility]) Name Value Range Interpretation Code Description Data Heena rce(s) Supporting Document(s) SARS-CoV-2 (COVID-19) RNA [Presence] in Respiratory specimen by ALEKSANDR with probe detection negative negative Sars-cov-2 [facility] ([facility]) ID Date Data Source [id number] 08/13/2020 12:00:00 AM EST [facility] ([facility]) Name Value Range Interpretation Code Description Data Heena rce(s) Supporting Document(s) ID Date Data Source [id number] 08/13/2020 12:00:00 AM EST [facility] ([facility]) Name Value Range Interpretation Code Description Data Heena rce(s) Supporting Document(s) SARS-CoV-2 (COVID-19) RNA [Presence] in Respiratory specimen by ALEKSANDR with probe detection negative negative Sars-cov-2 [facility] ([facility]) ID Date Data Source [id number] 08/13/2020 12:00:00 AM EST [place] ([facility]) Name Value Range Interpretation Code Description Data Heena rce(s) Supporting Document(s) ID Date Data Source [id number] 06/16/2020 12:00:00 AM EDT [place] ([facility]) Name Value Range Interpretation Code Description Data Heena rce(s) Supporting Document(s) SARS-CoV-2 (COVID-19) RNA [Presence] in Respiratory specimen by ALEKSANDR with probe detection negative negative Sars-cov-2 [facility] ([facility]) ID Date Data Source [id number] 06/16/2020 12:00:00 AM EDT [facility] ([facility]) Name Value Range Interpretation Code Description Data Heena rce(s) Supporting Document(s) ID Date Data Source [id number] 06/16/2020 12:00:00 AM EDT [facility] ([facility]) Name Value Range Interpretation Code Description Data Heena rce(s) Supporting Document(s) SARS-CoV-2 (COVID-19) RNA [Presence] in Respiratory specimen by ALEKSANDR with probe detection negative negative Sars-cov-2 [facility] ([facility]) ID Date Data Source [id number] 06/16/2020 12:00:00 AM EDT [facility] ([facility]) Name Value Range Interpretation Code Description Data Heena rce(s) Supporting Document(s) ID Date Data Source [id number] 06/16/2020 12:00:00 AM EDT [facility] ([facility]) Name Value Range Interpretation Code Description Data Heena rce(s) Supporting Document(s) SARS-CoV-2 (COVID-19) RNA [Presence] in Respiratory specimen by ALEKSANDR with probe detection negative negative Sars-cov-2 [facility] ([facility]) ID Date Data Source [id number] 06/16/2020 12:00:00 AM EDT [facility] ([facility]) Name Value Range Interpretation Code Description Data Heena rce(s) Supporting Document(s) ID Date Data Source [id number] 06/16/2020 12:00:00 AM EDT [facility] ([facility]) Name Value Range Interpretation Code Description Data Heena rce(s) Supporting Document(s) SARS-CoV-2 (COVID-19) RNA [Presence] in Respiratory specimen by ALEKSANDR with probe detection negative negative Sars-cov-2 [facility] ([facility]) ID Date Data Source [id number] 06/16/2020 12:00:00 AM EDT [facility] ([facility]) Name Value Range Interpretation Code Description Data Heena rce(s) Supporting Document(s) ID Date Data Source [id number] 06/16/2020 12:00:00 AM EDT [facility] ([facility]) Name Value Range Interpretation Code Description Data Heena rce(s) Supporting Document(s) SARS-CoV-2 (COVID-19) RNA [Presence] in Respiratory specimen by ALEKSANDR with probe detection negative negative Sars-cov-2 [facility] ([facility]) ID Date Data Source [id number] 06/16/2020 12:00:00 AM EDT [facility] ([facility]) Name Value Range Interpretation Code Description Data Heena rce(s) Supporting Document(s) ID Date Data Source [id number] 06/16/2020 12:00:00 AM EDT [facility] ([facility]) Name Value Range Interpretation Code Description Data Heena rce(s) Supporting Document(s) SARS-CoV-2 (COVID-19) RNA [Presence] in Respiratory specimen by ALEKSANDR with probe detection negative negative Sars-cov-2 [facility] ([facility]) ID Date Data Source [id number] 06/16/2020 12:00:00 AM EDT [facility] ([facility]) Name Value Range Interpretation Code Description Data Heena rce(s) Supporting Document(s) ID Date Data Source [id number] 06/16/2020 12:00:00 AM EDT ROLANDO ([facility]) Name Value Range Interpretation Code Description Data Heena rce(s) Supporting Document(s) SARS-CoV-2 (COVID-19) RNA [Presence] in Respiratory specimen by ALEKSANDR with probe detection negative negative Sars-cov-2 ROLANDO ([facility]) ID Date Data Source [id number] 06/16/2020 12:00:00 AM EDT ROLANDO ([facility]) Name Value Range Interpretation Code Description Data Heena rce(s) Supporting Document(s) ID Date Data Source [id number] 06/16/2020 12:00:00 AM EDT ROLANDO ([facility]) Name Value Range Interpretation Code Description Data Heena rce(s) Supporting Document(s) SARS-CoV-2 (COVID-19) RNA [Presence] in Respiratory specimen by ALEKSANDR with probe detection negative negative Sars-cov-2 [facility] ([facility]) ID Date Data Source [id number] 06/16/2020 12:00:00 AM EDT ROLANDO ([facility]) Name Value Range Interpretation Code Description Data Heena rce(s) Supporting Document(s) ID Date Data Source [id number] 06/16/2020 12:00:00 AM EDT ROLANDO ([facility]) Name Value Range Interpretation Code Description Data Heena rce(s) Supporting Document(s) SARS-CoV-2 (COVID-19) RNA [Presence] in Respiratory specimen by ALEKSANDR with probe detection negative negative Sars-cov-2 ROLANDO ([facility]) ID Date Data Source [id number] 06/16/2020 12:00:00 AM EDT ROLANDO ([facility]) Name Value Range Interpretation Code Description Data Heena rce(s) Supporting Document(s) ID Date Data Source [id number] 06/16/2020 12:00:00 AM EDT ROLANDO ([facility]) Name Value Range Interpretation Code Description Data Heena rce(s) Supporting Document(s) SARS-CoV-2 (COVID-19) RNA [Presence] in Respiratory specimen by ALEKSANDR with probe detection negative negative Sars-cov-2 ROLANDO ([facility]) ID Date Data Source [id number] 06/16/2020 12:00:00 AM EDT ROLANDO ([facility]) Name Value Range Interpretation Code Description Data Heena rce(s) Supporting Document(s) ID Date Data Source [id number] 06/16/2020 12:00:00 AM EDT ROLANDO ([facility]) Name Value Range Interpretation Code Description Data Heena rce(s) Supporting Document(s) SARS-CoV-2 (COVID-19) RNA [Presence] in Respiratory specimen by ALEKSANDR with probe detection negative negative Sars-cov-2 ROLANDO ([facility]) ID Date Data Source [id number] 06/16/2020 12:00:00 AM EDT ROLANDO ([facility]) Name Value Range Interpretation Code Description Data Heena rce(s) Supporting Document(s) ID Date Data Source [id number] 06/16/2020 12:00:00 AM EDT ROLANDO ([facility]) Name Value Range Interpretation Code Description Data Heena rce(s) Supporting Document(s) SARS coronavirus 2 RNA [Presence] in Res piratory specimen by ALEKSANDR with probe detection negative negative Sars-cov-2 ROLANDO ([facility]) ID Date Data Source [id number] 06/16/2020 12:00:00 AM EDT ROLANDO ([facility]) Name Value Range Interpretation Code Description Data Heena rce(s) Supporting Document(s) ID Date Data Source [id number] 06/16/2020 12:00:00 AM EDT ROLANDO ([facility]) Name Value Range Interpretation Code Description Data Heena rce(s) Supporting Document(s) SARS coronavirus 2 RNA [Presence] in Res piratory specimen by ALEKSANDR with probe detection negative negative Sars-cov-2 ROLANDO ([facility]) ID Date Data Source [id number] 06/16/2020 12:00:00 AM EDT ROLANDO ([facility]) Name Value Range Interpretation Code Description Data Heena rce(s) Supporting Document(s) ID Date Data Source [id number] 06/16/2020 12:00:00 AM EDT [facility] Name Value Range Interpretation Code Description Data Heena rce(s) Supporting Document(s) SARS-CoV-2 [facility] This lab was ordered by [facility]-COVID19 and reported by [employer]. ID Date Data Source [id number] 06/16/2020 12:00:00 AM EDT ROLANDO ([facility]) Name Value Range Interpretation Code Description Data Heena rce(s) Supporting Document(s) SARS-CoV-2 (COVID-19) RNA [Presence] in Respiratory specimen by ALEKSANDR with probe detection negative negative Sars-cov-2 ROLANDO ([facility]) ID Date Data Source [id number] 06/16/2020 12:00:00 AM EDT ROLANDO ([facility]) Name Value Range Interpretation Code Description Data Heena rce(s) Supporting Document(s) ID Date Data Source [id number] 06/16/2020 12:00:00 AM EDT ROLANDO ([facility]) Name Value Range Interpretation Code Description Data Heena rce(s) Supporting Document(s) SARS-CoV-2 (COVID-19) RNA [Presence] in Respiratory specimen by ALEKSANDR with probe detection negative negative Sars-cov-2 ROLANDO ([facility]) ID Date Data Source [id number] 06/16/2020 12:00:00 AM EDT ROLANDO ([facility]) Name Value Range Interpretation Code Description Data Heena rce(s) Supporting Document(s) ID Date Data Source [id number] 06/16/2020 12:00:00 AM EDT ROLANDO ([facility]) Name Value Range Interpretation Code Description Data Heena rce(s) Supporting Document(s) SARS-CoV-2 (COVID-19) RNA [Presence] in Respiratory specimen by ALEKSANDR with probe detection negative negative Sars-cov-2 ROLANDO ([facility]) ID Date Data Source [id number] 06/16/2020 12:00:00 AM EDT R[facility] ([facility]) Name Value Range Interpretation Code Description Data Heena rce(s) Supporting Document(s) ID Date Data Source [id number] 06/16/2020 12:00:00 AM EDT [facility] ([facility]) Name Value Range Interpretation Code Description Data Heena rce(s) Supporting Document(s) SARS-CoV-2 (COVID-19) RNA [Presence] in Respiratory specimen by ALEKSANDR with probe detection negative negative Sars-cov-2 ROLANDO ([facility]) ID Date Data Source [id number] 06/16/2020 12:00:00 AM EDT ROL[facility]O ([facility]) Name Value Range Interpretation Code Description Data Heena rce(s) Supporting Document(s) ID Date Data Source [id number] 06/02/2020 12:00:00 AM EDT ROL[facility]O ([facility]) Name Value Range Interpretation Code Description Data Heena rce(s) Supporting Document(s) ID Date Data Source [id number] 06/02/2020 12:00:00 AM EDT [facility] ([facility]) Name Value Range Interpretation Code Description Data Heena rce(s) Supporting Document(s) ID Date Data Source [id number] 06/02/2020 12:00:00 AM EDT ROLANDO ([facility]) Name Value Range Interpretation Code Description Data Heena rce(s) Supporting Document(s) ID Date Data Source [id number] 06/02/2020 12:00:00 AM EDT R[facility] ([facility]) Name Value Range Interpretation Code Description Data Heena rce(s) Supporting Document(s) ID Date Data Source [id number] 06/02/2020 12:00:00 AM EDT [facility]O ([facility]) Name Value Range Interpretation Code Description Data Heena rce(s) Supporting Document(s) ID Date Data Source [id number] 06/02/2020 12:00:00 AM EDT [facility] ([facility]) Name Value Range Interpretation Code Description Data Heena rce(s) Supporting Document(s) ID Date Data Source [id number] 06/02/2020 12:00:00 AM EDT [facility] ([facility]) Name Value Range Interpretation Code Description Data Heena rce(s) Supporting Document(s) ID Date Data Source [id number] 06/02/2020 12:00:00 AM EDT [facility] ([facility]) Name Value Range Interpretation Code Description Data Heena rce(s) Supporting Document(s) ID Date Data Source [id number] 06/02/2020 12:00:00 AM EDT [facility] ([facility]) Name Value Range Interpretation Code Description Data Heena rce(s) Supporting Document(s) ID Date Data Source [id number] 06/02/2020 12:00:00 AM EDT ROL[facility]O ([facility]) Name Value Range Interpretation Code Description Data Heena rce(s) Supporting Document(s) ID Date Data Source [id number] 06/02/2020 12:00:00 AM EDT ROL[facility]O ([facility]) Name Value Range Interpretation Code Description Data Heena rce(s) Supporting Document(s) ID Date Data Source [id number] 06/02/2020 12:00:00 AM EDT [facility]OL[facility]O ([facility]) Name Value Range Interpretation Code Description Data Heena rce(s) Supporting Document(s) ID Date Data Source [id number] 06/02/2020 12:00:00 AM EDT [facility]OL[facility]O ([facility]) Name Value Range Interpretation Code Description Data Heena rce(s) Supporting Document(s) ID Date Data Source [id number] 06/02/2020 12:00:00 AM EDT [facility]O ([facility]) Name Value Range Interpretation Code Description Data Heena rce(s) Supporting Document(s) ID Date Data Source [id number] 06/02/2020 12:00:00 AM EDT [facility] Name Value Range Interpretation Code Description Data Heena rce(s) Supporting Document(s) SARS-CoV-2 [facility] This lab was ordered by [facility] and reported by [employer]. ID Date Data Source [id number] 06/02/2020 12:00:00 AM EDT [facility]OL[facility]O ([facility]) Name Value Range Interpretation Code Description Data Heena rce(s) Supporting Document(s) ID Date Data Source [id number] 06/02/2020 12:00:00 AM EDT [facility]OL[facility]O ([facility]) Name Value Range Interpretation Code Description Data Heena rce(s) Supporting Document(s) ID Date Data Source [id number] 06/02/2020 12:00:00 AM EDT [facility]O ([facility]) Name Value Range Interpretation Code Description Data Heena rce(s) Supporting Document(s) ID Date Data Source [id number] 06/02/2020 12:00:00 AM EDT [facility] ([facility]) Name Value Range Interpretation Code Description Data Heena rce(s) Supporting Document(s) ID Date Data Source [id number] 06/02/2020 12:00:00 AM EDT ROL[facility]O ([facility]) Name Value Range Interpretation Code Description Data Heena rce(s) Supporting Document(s) Procedure Social History Code Duration Value Status Description Data Source(s ) Smoking 01/15/2021 12:00:00 AM EDT Patient has never smoked co mpleted Patient has never smoked MEDENT ([facility], [facility]) Smoking 01/08/2021 12:00:00 AM EDT Never Smoker completed Never S moker eCW1 ([facility]) Smoking 01/08/2021 12:00:00 AM EDT Never Smoker completed Never S moker eCW1 ([facility]) Smoking 01/08/2021 12:00:00 AM EDT Never Smoker completed Never S moker eCW1 ([facility]) Smoking 09/10/2020 12:00:00 AM EST Patient has never smoked co mpleted Patient has never smoked MEDENT ([facility]) Vital Signs ID Date Data Source UNK Name Value Range Interpretation Code Description Data Source(s) Diastolic blood pressure 74 mm[Hg] 74 mm[Hg] ROL[facility]O ([facility]) Body height 71 [in_i] 71 [in_i] [facility]O ([facility]) Systolic blood pressure 128 mm[Hg] 128 mm[Hg] A THENA ([facility]) Systolic blood pressure 131 mm[Hg] 131 mm[Hg] A THENA ([facility]) Diastolic blood pressure 74 mm[Hg] 74 mm[Hg] ROLANDO ([facility]) Body height 71 [in_i] 71 [in_i] ROLANDO ([facility]) Diastolic blood pressure 74 mm[Hg] 74 mm[Hg] ROL[facility]O ([facility]) Body height 71 [in_i] 71 [in_i] ROL[facility]O ([facility]) Systolic blood pressure 131 mm[Hg] 131 mm[Hg] A THENA ([facility]) Systolic blood pressure 146 mm[Hg] 146 mm[Hg] M EDENT ([facility]) Diastolic blood pressure 84 mm[Hg] 84 mm[Hg] MEDENT ([facility] ) Heart rate 99 /min 99 /min MED[facility] ([facility] ) Body temperature 96.4 [degF] 96.4 [degF] MEDENT ([facility] ) Body height 69.25 [in_i] 69.25 [in_i] MEDENT ([facility]) 5'9.25" Body weight 227.50 [lb_av] 227.50 [lb_av] MEDEN T ([facility] ) Body mass index (BMI) [Ratio] 33.4 kg/m2 33.4 k g/m2 MEDENT ([facility] ) Oxygen saturation in Arterial blood by Pulse oximetry 99 % 99 % MEDENT ([facility] ) Body height 71 [in_i] 71 [in_i] ROLANDO ([facility]) Systolic blood pressure 127 mm[Hg] 127 mm[Hg] A THENA ([facility]) Diastolic blood pressure 74 mm[Hg] 74 mm[Hg] ROLANDO ([facility]) Diastolic blood pressure 74 mm[Hg] 74 mm[Hg] ROLANDO ([facility]) Body height 71 [in_i] 71 [in_i] ROLANDO ([facility]) Systolic blood pressure 127 mm[Hg] 127 mm[Hg] A THENA ([facility]) Diastolic blood pressure 74 mm[Hg] 74 mm[Hg] ROLANDO ([facility]) Body height 71 [in_i] 71 [in_i] ROLANDO ([facility]) Systolic blood pressure 127 mm[Hg] 127 mm[Hg] A THENA ([facility]) Systolic blood pressure 150 mm[Hg] 150 mm[Hg] M EDENT ([facility]) Diastolic blood pressure 100 mm[Hg] 100 mm[Hg] MEDENT ([facility]) Heart rate 104 /min 104 /min MEDENT ([facility]) Respiratory rate 20 /min 20 /min MEDENT ( [facility]) Diastolic blood pressure 90 mm[Hg] 90 mm[Hg] ROLANDO ([facility]) Body height 71 [in_i] 71 [in_i] ROLANDO ([facility]) Systolic blood pressure 158 mm[Hg] 158 mm[Hg] A THENA ([facility]) Diastolic blood pressure 90 mm[Hg] 90 mm[Hg] ROLANDO ([facility]) Body height 71 [in_i] 71 [in_i] ROLANDO ([facility]) Systolic blood pressure 158 mm[Hg] 158 mm[Hg] A THENA ([facility]) Diastolic blood pressure 90 mm[Hg] 90 mm[Hg] ROLANDO ([facility]) Body height 71 [in_i] 71 [in_i] ROLANDO ([facility]) Systolic blood pressure 158 mm[Hg] 158 mm[Hg] A THENA ([facility]) Diastolic blood pressure 90 mm[Hg] 90 mm[Hg] ROLANDO ([facility]) Body height 71 [in_i] 71 [in_i] ROLANDO ([facility]) Systolic blood pressure 158 mm[Hg] 158 mm[Hg] A THENA ([facility]) Diastolic blood pressure 90 mm[Hg] 90 mm[Hg] ROLANDO ([facility]) Body height 71 [in_i] 71 [in_i] ROLANDO ([facility]) Systolic blood pressure 158 mm[Hg] 158 mm[Hg] A THENA ([facility]) Oxygen saturation in Arterial blood by Pulse oximetry 95 % 95 % MEDENT ([facility], [facility]) Body temperature 98.9 [degF] 98.9 [degF] MEDENT ([facility], [facility]) Body weight 220.00 [lb_av] 220.00 [lb_av] MEDEN T ([facility], [facility]) Body height 70 [in_i] 70 [in_i] MEDENT ([facility], [facility]) 5'10" Body mass index (BMI) [Ratio] 31.6 kg/m2 31.6 k g/m2 MEDENT ([facility], [facility]) Systolic blood pressure 152 mm[Hg] 152 mm[Hg] M EDENT ([facility], [facility]) Diastolic blood pressure 79 mm[Hg] 79 mm[Hg] MEDENT ([facility], [facility]) Heart rate 116 /min 116 /min MEDENT ([facility], [facility]) Respiratory rate 16 /min 16 /min MEDENT ( [facility], [facility]) Body weight 221.8 [lb_av] 221.8 [lb_av] eCW1 ([facility] Body height 71 [in_i] 71 [in_i] eCW1 ([facility]) Body mass index (BMI) [Ratio] 30.93 kg/m2 30.93 kg/m2 eCW1 ([facility]) Heart rate 119 /min 119 /min eCW1 ([facility]) Respiratory rate 18 /min 18 /min eCW1 ([facility]) Body temperature 97.2 [degF] 97.2 [degF] eCW1 ( [facility]) Systolic blood pressure 134 mm[Hg] 134 mm[Hg] e CW1 ([facility]) Diastolic blood pressure 76 mm[Hg] 76 mm[Hg] eCW1 ([facility]) Diastolic blood pressure 68 mm[Hg] 68 mm[Hg] ROLANDO ([facility]) Body height 71 [in_i] 71 [in_i] ROLANDO ([facility]) Systolic blood pressure 134 mm[Hg] 134 mm[Hg] A THENA ([facility]) Diastolic blood pressure 68 mm[Hg] 68 mm[Hg] ROLANDO ([facility]) Systolic blood pressure 134 mm[Hg] 134 mm[Hg] A THENA ([facility]) Body height 71 [in_i] 71 [in_i] ROLANDO ([facility]) Diastolic blood pressure 68 mm[Hg] 68 mm[Hg] ROLANDO ([facility]) Body height 71 [in_i] 71 [in_i] ROLANDO ([facility]) Systolic blood pressure 134 mm[Hg] 134 mm[Hg] A THENA ([facility]) Diastolic blood pressure 68 mm[Hg] 68 mm[Hg] ROLANDO ([facility]) Body height 71 [in_i] 71 [in_i] ROLANDO ([facility]) Systolic blood pressure 134 mm[Hg] 134 mm[Hg] A THENA ([facility]) Diastolic blood pressure 68 mm[Hg] 68 mm[Hg] ROLANDO ([facility]) Body height 71 [in_i] 71 [in_i] ROLANDO ([facility]) Systolic blood pressure 134 mm[Hg] 134 mm[Hg] A THENA ([facility]) Diastolic blood pressure 68 mm[Hg] 68 mm[Hg] ROLANDO ([facility]) Body height 71 [in_i] 71 [in_i] ROLANDO ([facility]) Systolic blood pressure 134 mm[Hg] 134 mm[Hg] A THENA ([facility]) Body weight 216.25 [lb_av] 216.25 [lb_av] MEDEN T ([facility] ) Body mass index (BMI) [Ratio] 31.7 kg/m2 31.7 k g/m2 MEDENT ([facility] ) Oxygen saturation in Arterial blood by Pulse oximetry 97 % 97 % MEDENT ([facility] ) Systolic blood pressure 142 mm[Hg] 142 mm[Hg] M EDENT ([facility] ) Diastolic blood pressure 80 mm[Hg] 80 mm[Hg] MEDENT ([facility] ) Heart rate 95 /min 95 /min MEDENT ([facility] ) Body temperature 96.4 [degF] 96.4 [degF] MEDENT ([facility] ) Body height 69.25 [in_i] 69.25 [in_i] MEDENT ([facility] ) 5'9.25" Diastolic blood pressure 74 mm[Hg] 74 mm[Hg] ROLANDO ([facility]) Body height 71 [in_i] 71 [in_i] ROLANDO ([facility]) Systolic blood pressure 147 mm[Hg] 147 mm[Hg] A THENA ([facility]) Body height 71 [in_i] 71 [in_i] ROLANDO ([facility]) Diastolic blood pressure 74 mm[Hg] 74 mm[Hg] ROLANDO ([facility]) Systolic blood pressure 147 mm[Hg] 147 mm[Hg] A THENA ([facility]) Diastolic blood pressure 74 mm[Hg] 74 mm[Hg] ROLANDO ([facility]) Body height 71 [in_i] 71 [in_i] ROLANDO ([facility]) Systolic blood pressure 147 mm[Hg] 147 mm[Hg] A THENA ([facility]) Diastolic blood pressure 74 mm[Hg] 74 mm[Hg] ROLANDO ([facility]) Body height 71 [in_i] 71 [in_i] ROLANDO ([facility]) Systolic blood pressure 147 mm[Hg] 147 mm[Hg] A THENA ([facility]) Diastolic blood pressure 74 mm[Hg] 74 mm[Hg] ROLANDO ([facility]) Body height 71 [in_i] 71 [in_i] ROLANDO ([facility]) Systolic blood pressure 147 mm[Hg] 147 mm[Hg] A THENA ([facility]) Diastolic blood pressure 74 mm[Hg] 74 mm[Hg] ROLANDO ([facility]) Body height 71 [in_i] 71 [in_i] ROLANDO ([facility]) Systolic blood pressure 147 mm[Hg] 147 mm[Hg] A THENA ([facility]) Diastolic blood pressure 74 mm[Hg] 74 mm[Hg] ROLANDO ([facility]) Body height 71 [in_i] 71 [in_i] ROLANDO ([facility]) Systolic blood pressure 147 mm[Hg] 147 mm[Hg] A THENA ([facility]) Diastolic blood pressure 74 mm[Hg] 74 mm[Hg] ROLANDO ([facility]) Body height 71 [in_i] 71 [in_i] ROLANDO ([facility]) Systolic blood pressure 147 mm[Hg] 147 mm[Hg] A THENA ([facility]) Diastolic blood pressure 74 mm[Hg] 74 mm[Hg] ROLANDO ([facility]) Body height 71 [in_i] 71 [in_i] ROLANDO ([facility]) Systolic blood pressure 147 mm[Hg] 147 mm[Hg] A THENA ([facility]) Diastolic blood pressure 78 mm[Hg] 78 mm[Hg] ROLANDO ([facility]) Body height 71 [in_i] 71 [in_i] ROLANDO ([facility]) Systolic blood pressure 162 mm[Hg] 162 mm[Hg] A THENA ([facility]) Body height 71 [in_i] 71 [in_i] ROLANDO ([facility]) Systolic blood pressure 162 mm[Hg] 162 mm[Hg] A THENA ([facility]) Diastolic blood pressure 78 mm[Hg] 78 mm[Hg] ROLANDO ([facility]) Diastolic blood pressure 78 mm[Hg] 78 mm[Hg] ROLANDO ([facility]) Body height 71 [in_i] 71 [in_i] ROLANDO ([facility]) Systolic blood pressure 162 mm[Hg] 162 mm[Hg] A THENA ([facility]) Diastolic blood pressure 78 mm[Hg] 78 mm[Hg] ROLANDO ([facility]) Body height 71 [in_i] 71 [in_i] ROLANDO ([facility]) Systolic blood pressure 162 mm[Hg] 162 mm[Hg] A THENA ([facility]) Diastolic blood pressure 78 mm[Hg] 78 mm[Hg] ROLANDO ([facility]) Body height 71 [in_i] 71 [in_i] ROLANDO ([facility]) Systolic blood pressure 162 mm[Hg] 162 mm[Hg] A THENA ([facility]) Diastolic blood pressure 78 mm[Hg] 78 mm[Hg] ROLANDO ([facility]) Body height 71 [in_i] 71 [in_i] ROLANDO ([facility]) Systolic blood pressure 162 mm[Hg] 162 mm[Hg] A THENA ([facility]) Diastolic blood pressure 78 mm[Hg] 78 mm[Hg] ROLANDO ([facility]) Body height 71 [in_i] 71 [in_i] ROLANDO ([facility]) Systolic blood pressure 162 mm[Hg] 162 mm[Hg] A THENA ([facility]) Diastolic blood pressure 78 mm[Hg] 78 mm[Hg] ROLANDO ([facility]) Body height 71 [in_i] 71 [in_i] ROLANDO ([facility]) Systolic blood pressure 162 mm[Hg] 162 mm[Hg] A THENA ([facility]) Diastolic blood pressure 78 mm[Hg] 78 mm[Hg] ROLANDO ([facility]) Body height 71 [in_i] 71 [in_i] ROLANDO ([facility]) Systolic blood pressure 162 mm[Hg] 162 mm[Hg] A THENA ([facility]) Diastolic blood pressure 78 mm[Hg] 78 mm[Hg] ROLANDO ([facility]) Body height 71 [in_i] 71 [in_i] ROLANDO ([facility]) Systolic blood pressure 162 mm[Hg] 162 mm[Hg] A THENA ([facility]) Systolic blood pressure 150 mm[Hg] 150 mm[Hg] M EDENT ([facility], [facility]) No b/p meds today Diastolic blood pressure 98 mm[Hg] 98 mm[Hg] MEDENT ([facility], [facility]) No b/p meds today Heart rate 120 /min 120 /min MEDENT ([facility], [facility]) Respiratory rate 18 /min 18 /min MEDENT ( [facility], [facility]) Oxygen saturation in Arterial blood by Pulse oximetry 98 % 98 % MEDENT ([facility], [facility]) Body temperature 97.1 [degF] 97.1 [degF] MEDENT ([facility], [facility]) Body weight 220.00 [lb_av] 220.00 [lb_av] MEDEN T ([facility], [facility]) Body height 71 [in_i] 71 [in_i] MEDENT ([facility], [facility]) 5'11" Body mass index (BMI) [Ratio] 30.7 kg/m2 30.7 k g/m2 MEDENT ([facility], [facility]) Diastolic blood pressure 84 mm[Hg] 84 mm[Hg] ROLANDO ([facility]) Body height 71 [in_i] 71 [in_i] ROLANDO ([facility]) Systolic blood pressure 127 mm[Hg] 127 mm[Hg] A THENA ([facility]) Body height 71 [in_i] 71 [in_i] ROLANDO ([facility]) Diastolic blood pressure 84 mm[Hg] 84 mm[Hg] ROLANDO ([facility]) Systolic blood pressure 127 mm[Hg] 127 mm[Hg] A THENA ([facility]) Diastolic blood pressure 84 mm[Hg] 84 mm[Hg] ROLANDO ([facility]) Body height 71 [in_i] 71 [in_i] ROLANDO ([facility]) Systolic blood pressure 127 mm[Hg] 127 mm[Hg] A THENA ([facility]) Diastolic blood pressure 84 mm[Hg] 84 mm[Hg] ROLANDO ([facility]) Body height 71 [in_i] 71 [in_i] ROLANDO ([facility]) Systolic blood pressure 127 mm[Hg] 127 mm[Hg] A THENA ([facility]) Diastolic blood pressure 84 mm[Hg] 84 mm[Hg] ROLANDO ([facility]) Body height 71 [in_i] 71 [in_i] ROLANDO ([facility]) Systolic blood pressure 127 mm[Hg] 127 mm[Hg] A THENA ([facility]) Diastolic blood pressure 84 mm[Hg] 84 mm[Hg] ROLANDO ([facility]) Body height 71 [in_i] 71 [in_i] ROLANDO ([facility]) Systolic blood pressure 127 mm[Hg] 127 mm[Hg] A THENA ([facility]) Diastolic blood pressure 84 mm[Hg] 84 mm[Hg] ROLANDO ([facility]) Body height 71 [in_i] 71 [in_i] ROLANDO ([facility]) Systolic blood pressure 127 mm[Hg] 127 mm[Hg] A THENA ([facility]) Diastolic blood pressure 84 mm[Hg] 84 mm[Hg] ROLANDO ([facility]) Body height 71 [in_i] 71 [in_i] ROLANDO ([facility]) Systolic blood pressure 127 mm[Hg] 127 mm[Hg] A THENA ([facility]) Diastolic blood pressure 84 mm[Hg] 84 mm[Hg] ROLANDO ([facility]) Body height 71 [in_i] 71 [in_i] ROLANDO ([facility]) Systolic blood pressure 127 mm[Hg] 127 mm[Hg] A THENA ([facility]) Diastolic blood pressure 84 mm[Hg] 84 mm[Hg] ROLANDO ([facility]) Body height 71 [in_i] 71 [in_i] ROLANDO ([facility]) Systolic blood pressure 127 mm[Hg] 127 mm[Hg] A THENA ([facility]) Diastolic blood pressure 84 mm[Hg] 84 mm[Hg] ROLANDO ([facility]) Body height 71 [in_i] 71 [in_i] ROLANDO ([facility]) Systolic blood pressure 127 mm[Hg] 127 mm[Hg] A THENA ([facility]) Systolic blood pressure 126 mm[Hg] 126 mm[Hg] M EDENT ([facility]) Diastolic blood pressure 84 mm[Hg] 84 mm[Hg] MEDENT ([facility]) Heart rate 89 /min 89 /min MEDENT ([facility]) Body temperature 97.2 [degF] 97.2 [degF] MEDENT ([facility]) Body height 69.25 [in_i] 69.25 [in_i] MEDENT ([facility]) 5'9.25" Body weight 217.50 [lb_av] 217.50 [lb_av] MEDEN T ([facility]) Body mass index (BMI) [Ratio] 31.9 kg/m2 31.9 k g/m2 MEDENT ([facility] ) Oxygen saturation in Arterial blood by Pulse oximetry 98 % 98 % MEDENT ([facility]) Diastolic blood pressure 83 mm[Hg] 83 mm[Hg] ROLANDO ([facility]) Body height 71 [in_i] 71 [in_i] ROLANDO ([facility]) Systolic blood pressure 128 mm[Hg] 128 mm[Hg] A THENA ([facility]) Diastolic blood pressure 83 mm[Hg] 83 mm[Hg] ROLANDO ([facility]) Body height 71 [in_i] 71 [in_i] ROLANDO ([facility]) Systolic blood pressure 128 mm[Hg] 128 mm[Hg] A THENA ([facility]) Diastolic blood pressure 83 mm[Hg] 83 mm[Hg] ROLANDO ([facility]) Body height 71 [in_i] 71 [in_i] ROLANDO ([facility]) Systolic blood pressure 128 mm[Hg] 128 mm[Hg] A THENA ([facility]) Body height 71 [in_i] 71 [in_i] ROLANDO ([facility]) Diastolic blood pressure 83 mm[Hg] 83 mm[Hg] ROLANDO ([facility]) Systolic blood pressure 128 mm[Hg] 128 mm[Hg] A THENA ([facility]) Diastolic blood pressure 83 mm[Hg] 83 mm[Hg] ROLANDO ([facility]) Diastolic blood pressure 83 mm[Hg] 83 mm[Hg] ROLANDO ([facility]) Body height 71 [in_i] 71 [in_i] ROLANDO ([facility]) Systolic blood pressure 128 mm[Hg] 128 mm[Hg] A THENA ([facility]) Body height 71 [in_i] 71 [in_i] ROLANDO ([facility]) Systolic blood pressure 128 mm[Hg] 128 mm[Hg] A THENA ([facility]) Diastolic blood pressure 83 mm[Hg] 83 mm[Hg] ROLANDO ([facility]) Body height 71 [in_i] 71 [in_i] ROLANDO ([facility]) Systolic blood pressure 128 mm[Hg] 128 mm[Hg] A THENA ([facility]) Diastolic blood pressure 83 mm[Hg] 83 mm[Hg] ROLANDO ([facility]) Body height 71 [in_i] 71 [in_i] ROLANDO ([facility]) Systolic blood pressure 128 mm[Hg] 128 mm[Hg] A THENA ([facility]) Diastolic blood pressure 83 mm[Hg] 83 mm[Hg] ROLANDO ([facility]) Body height 71 [in_i] 71 [in_i] ROLANDO ([facility]) Systolic blood pressure 128 mm[Hg] 128 mm[Hg] A THENA ([facility]) Diastolic blood pressure 83 mm[Hg] 83 mm[Hg] ROLANDO ([facility]) Body height 71 [in_i] 71 [in_i] ROLANDO ([facility]) Systolic blood pressure 128 mm[Hg] 128 mm[Hg] A THENA ([facility]) Diastolic blood pressure 83 mm[Hg] 83 mm[Hg] ROLANDO ([facility]) Body height 71 [in_i] 71 [in_i] ROLANDO ([facility]) Systolic blood pressure 128 mm[Hg] 128 mm[Hg] A THENA ([facility]) Diastolic blood pressure 83 mm[Hg] 83 mm[Hg] ROLANDO ([facility]) Body height 71 [in_i] 71 [in_i] ROLANDO ([facility]) Systolic blood pressure 128 mm[Hg] 128 mm[Hg] A THENA ([facility]) Diastolic blood pressure 83 mm[Hg] 83 mm[Hg] ROLANDO ([facility]) Body height 71 [in_i] 71 [in_i] ROLANDO ([facility]) Systolic blood pressure 128 mm[Hg] 128 mm[Hg] A THENA ([facility]) Diastolic blood pressure 83 mm[Hg] 83 mm[Hg] ROLANDO ([facility]) Body height 71 [in_i] 71 [in_i] ROLANDO ([facility]) Systolic blood pressure 128 mm[Hg] 128 mm[Hg] A THENA ([facility]) Body height 71 [in_i] 71 [in_i] ROLANDO ([facility]) Systolic blood pressure 128 mm[Hg] 128 mm[Hg] A THENA ([facility]) Diastolic blood pressure 83 mm[Hg] 83 mm[Hg] ROLANDO ([facility]) Heart rate 96 /min 96 /min MEDENT ([facility]) Respiratory rate 20 /min 20 /min MEDENT ( [facility]) Systolic blood pressure 110 mm[Hg] 110 mm[Hg] M EDENT ([facility]) Diastolic blood pressure 80 mm[Hg] 80 mm[Hg] MEDENT ([facility]) Diastolic blood pressure 74 mm[Hg] 74 mm[Hg] ROLANDO ([facility]) Body height 71 [in_i] 71 [in_i] ROLANDO ([facility]) Systolic blood pressure 119 mm[Hg] 119 mm[Hg] A THENA ([facility]) Diastolic blood pressure 74 mm[Hg] 74 mm[Hg] ROLANDO ([facility]) Body height 71 [in_i] 71 [in_i] ROLANDO ([facility]) Systolic blood pressure 119 mm[Hg] 119 mm[Hg] A THENA ([facility]) Diastolic blood pressure 74 mm[Hg] 74 mm[Hg] ROLANDO ([facility]) Body height 71 [in_i] 71 [in_i] ROLANDO ([facility]) Systolic blood pressure 119 mm[Hg] 119 mm[Hg] A THENA ([facility]) Diastolic blood pressure 74 mm[Hg] 74 mm[Hg] ROLANDO ([facility]) Body height 71 [in_i] 71 [in_i] ROLANDO ([facility]) Systolic blood pressure 119 mm[Hg] 119 mm[Hg] A THENA ([facility]) Diastolic blood pressure 74 mm[Hg] 74 mm[Hg] ROLANDO ([facility]) Body height 71 [in_i] 71 [in_i] ROLANDO ([facility]) Systolic blood pressure 119 mm[Hg] 119 mm[Hg] A THENA ([facility]) Diastolic blood pressure 74 mm[Hg] 74 mm[Hg] ROLANDO ([facility]) Body height 71 [in_i] 71 [in_i] ROLANDO ([facility]) Systolic blood pressure 119 mm[Hg] 119 mm[Hg] A THENA ([facility]) Diastolic blood pressure 74 mm[Hg] 74 mm[Hg] ROLANDO ([facility]) Body height 71 [in_i] 71 [in_i] ROLANDO ([facility]) Systolic blood pressure 119 mm[Hg] 119 mm[Hg] A THENA ([facility]) Diastolic blood pressure 74 mm[Hg] 74 mm[Hg] ROLANDO ([facility]) Body height 71 [in_i] 71 [in_i] ROLANDO ([facility]) Systolic blood pressure 119 mm[Hg] 119 mm[Hg] A THENA ([facility]) Diastolic blood pressure 74 mm[Hg] 74 mm[Hg] ROLANDO ([facility]) Body height 71 [in_i] 71 [in_i] ROLANDO ([facility]) Systolic blood pressure 119 mm[Hg] 119 mm[Hg] A THENA ([facility]) Diastolic blood pressure 74 mm[Hg] 74 mm[Hg] ROLANDO ([facility]) Body height 71 [in_i] 71 [in_i] ROLANDO ([facility]) Systolic blood pressure 119 mm[Hg] 119 mm[Hg] A THENA ([facility]) Diastolic blood pressure 74 mm[Hg] 74 mm[Hg] ROLANDO ([facility]) Body height 71 [in_i] 71 [in_i] ROLANDO ([facility]) Systolic blood pressure 119 mm[Hg] 119 mm[Hg] A THENA ([facility]) Diastolic blood pressure 74 mm[Hg] 74 mm[Hg] ROLANDO ([facility]) Body height 71 [in_i] 71 [in_i] ROLANDO ([facility]) Systolic blood pressure 119 mm[Hg] 119 mm[Hg] A THENA ([facility]) Body height 71 [in_i] 71 [in_i] ROLANDO ([facility]) Diastolic blood pressure 74 mm[Hg] 74 mm[Hg] ROLANDO ([facility]) Systolic blood pressure 119 mm[Hg] 119 mm[Hg] A THENA ([facility]) Diastolic blood pressure 74 mm[Hg] 74 mm[Hg] ROLANDO ([facility]) Body height 71 [in_i] 71 [in_i] ROLANDO ([facility]) Systolic blood pressure 119 mm[Hg] 119 mm[Hg] A THENA ([facility]) Diastolic blood pressure 74 mm[Hg] 74 mm[Hg] ROLANDO ([facility]) Body height 71 [in_i] 71 [in_i] ROLANDO ([facility]) Systolic blood pressure 119 mm[Hg] 119 mm[Hg] A THENA ([facility]) Diastolic blood pressure 74 mm[Hg] 74 mm[Hg] ROLANDO ([facility]) Body height 71 [in_i] 71 [in_i] ROLANDO ([facility]) Systolic blood pressure 119 mm[Hg] 119 mm[Hg] A THENA ([facility]) Systolic blood pressure 170 mm[Hg] 170 mm[Hg] M EDENT ([facility], [facility]) manual Diastolic blood pressure 82 mm[Hg] 82 mm[Hg] MEDENT ([facility], [facility]) manual Systolic blood pressure 172 mm[Hg] 172 mm[Hg] M EDENT ([facility], [facility]) Diastolic blood pressure 93 mm[Hg] 93 mm[Hg] MEDENT ([facility], [facility]) Heart rate 103 /min 103 /min MEDENT ([facility], [facility]) Oxygen saturation in Arterial blood by Pulse oximetry 98 % 98 % MEDENT ([facility], [facility]) Body temperature 98.1 [degF] 98.1 [degF] MEDENT ([facility], [facility]) Body weight 220.00 [lb_av] 220.00 [lb_av] MEDEN T ([facility], [facility]) Body height 71 [in_i] 71 [in_i] MEDENT ([facility], [facility]) 5'11" Body mass index (BMI) [Ratio] 30.7 kg/m2 30.7 k g/m2 MEDENT ([facility], [facility]) Patient Treatment Plan of Care Planned Activity Planned Date Details Description Data Source (s) Acetaminophen 300 MG / Codeine Phosphate 30 MG Oral Ta blet 04/03/2019 12:00:00 AM EDT ROLANDO ([facility]) Acetaminophen 300 MG / Codeine Phosphate 30 MG Oral Ta blet 04/03/2019 12:00:00 AM EDT ROLANDO ([facility]) Acetaminophen 300 MG / Codeine Phosphate 30 MG Oral Ta blet 04/03/2019 12:00:00 AM EDT ROLANDO ([facility]) Acetaminophen 300 MG / Codeine Phosphate 30 MG Oral Ta blet 04/03/2019 12:00:00 AM EDT ROLANDO ([facility]) Acetaminophen 300 MG / Codeine Phosphate 30 MG Oral Ta blet 04/03/2019 12:00:00 AM EDT ROLANDO ([facility]) Acetaminophen 300 MG / Codeine Phosphate 30 MG Oral Ta blet 04/03/2019 12:00:00 AM EDT ROLANDO ([facility]) Acetaminophen 300 MG / Codeine Phosphate 30 MG Oral Ta blet 04/03/2019 12:00:00 AM EDT ROLANDO ([facility]) Acetaminophen 300 MG / Codeine Phosphate 30 MG Oral Ta blet 04/03/2019 12:00:00 AM EDT ROLANDO ([facility]) Acetaminophen 300 MG / Codeine Phosphate 30 MG Oral Ta blet 04/03/2019 12:00:00 AM EDT ROLANDO ([facility]) zonisamide 50 MG Oral Capsule ROLANDO ([facility]) topiramate 25 MG Oral Tablet ROLANDO ([facility]) Sumatriptan 25 MG Oral Tablet ROLANDO ([facility]) Simvastatin 20 MG Oral Tablet ROLANDO ([facility]) 0.5 ML pneumococcal capsular polysacchar triston type 1 vaccine 0.05 MG/ML / pneumococcal capsular polysaccharide type 10A vaccine 0.05 MG/ML / pneumococcal capsular polysaccharide type 11A vaccine 0.05 MG/ML / pneumococcal capsular polysaccharide type 12F vac ATHE NA ([facility]) Oseltamivir 75 MG Oral Capsule ROLANDO ([facility]) Ondansetron 8 MG Oral Tablet ROLANDO ([facility]) Ondansetron 4 MG Disintegrating Oral Tablet ROLANDO ([facility]) Naproxen 250 MG Oral Tablet ROLANDO ([facility]) Metoclopramide 10 MG Oral Tablet ROLANDO ([facility]) 24 HR Metformin hydrochloride 500 MG Extended Release Oral Tablet ROLANDO ([facility]) meloxicam 7.5 MG Oral Tablet ROLANDO ([facility]) Acetaminophen 325 MG / Hydrocodone Bitartrate 7.5 MG Oral Tablet ROLANDO ([facility]) Acetaminophen 325 MG / Hydrocodone Bitartrate 5 MG Oral Tablet ROLANDO ([facility]) Fluzone Quad (PF) 60 mcg (15 m cg x 4)/0.5 mL IM syringe INJECT INTRAMUSCULARLY IN THE LEFT ARM ROLANDO ([facility]) Flucelvax Quad 60 mcg (15 mcg x 4)/0.5 mL intramuscular susp INJECT 0.5ML DIRECTED ROLANDO ([facility]) Flucelvax Quad 60 mcg (15 mcg x 4)/0.5 mL IM suspension ROLANDO ([facility]) duloxetine 30 MG Delayed Release Oral Capsule ROLANDO ([facility]) doxycycline hyclate 100 MG Oral Tablet ROLANDO ([facility]) Divalproex Sodium 500 MG Delayed Release Oral Tablet ROLANDO ([facility]) Divalproex Sodium 250 MG Delayed Release Oral Tablet ROLANDO ([facility]) carvedilol 3.125 MG Oral Tablet ROLANDO ([facility]) Amoxicillin 875 MG / Clavulanate 125 MG Oral Tablet ROLANDO ([facility]) Allopurinol 100 MG Oral Tablet ROLANDO ([facility]) zonisamide 50 MG Oral Capsule ROLANDO ([facility]) topiramate 25 MG Oral Tablet ROLANDO ([facility]) Sumatriptan 25 MG Oral Tablet ROLANDO ([facility]) Simvastatin 20 MG Oral Tablet ROLANDO ([facility]) 0.5 ML pneumococcal capsular polysacchar triston type 1 vaccine 0.05 MG/ML / pneumococcal capsular polysaccharide type 10A vaccine 0.05 MG/ML / pneumococcal capsular polysaccharide type 11A vaccine 0.05 MG/ML / pneumococcal capsular polysaccharide type 12F vac ATHE NA ([facility]) Oseltamivir 75 MG Oral Capsule ROLANDO ([facility]) Ondansetron 8 MG Oral Tablet ROLANDO ([facility]) Ondansetron 4 MG Disintegrating Oral Tablet ROLANDO ([facility]) Naproxen 250 MG Oral Tablet ROLANDO ([facility]) Metoclopramide 10 MG Oral Tablet ROLANDO ([facility]) 24 HR Metformin hydrochloride 500 MG Extended Release Oral Tablet ROLANDO ([facility]) meloxicam 7.5 MG Oral Tablet ROLANDO ([facility]) Acetaminophen 325 MG / Hydrocodone Bitartrate 7.5 MG Oral Tablet ROLANDO ([facility]) Acetaminophen 325 MG / Hydrocodone Bitartrate 5 MG Oral Tablet ROLANDO ([facility]) Fluzone Quad (PF) 60 mcg (15 m cg x 4)/0.5 mL IM syringe INJECT INTRAMUSCULARLY IN THE LEFT ARM ROLANDO ([facility]) Flucelvax Quad 60 mcg (15 mcg x 4)/0.5 mL intramuscular susp INJECT 0.5ML DIRECTED ROLANDO ([facility]) Flucelvax Quad 60 mcg (15 mcg x 4)/0.5 mL IM suspension ROLANDO ([facility]) duloxetine 30 MG Delayed Release Oral Capsule ROLANDO ([facility]) doxycycline hyclate 100 MG Oral Tablet ROLANDO ([facility]) Divalproex Sodium 500 MG Delayed Release Oral Tablet ROLANDO ([facility]) Divalproex Sodium 250 MG Delayed Release Oral Tablet ROLANDO ([facility]) carvedilol 3.125 MG Oral Tablet ROLNADO ([facility]) Amoxicillin 875 MG / Clavulanate 125 MG Oral Tablet ROLANDO ([facility]) Allopurinol 100 MG Oral Tablet ROLANDO ([facility]) zonisamide 50 MG Oral Capsule ROLANDO ([facility]) topiramate 25 MG Oral Tablet ROLANDO ([facility]) Sumatriptan 25 MG Oral Tablet ROLANDO ([facility]) Simvastatin 20 MG Oral Tablet ROLANDO ([facility] [facility]) 0.5 ML pneumococcal capsular polysacchar triston type 1 vaccine 0.05 MG/ML / pneumococcal capsular polysaccharide type 10A vaccine 0.05 MG/ML / pneumococcal capsular polysaccharide type 11A vaccine 0.05 MG/ML / pneumococcal capsular polysaccharide type 12F vac ATHE NA ([facility]) Oseltamivir 75 MG Oral Capsule [place]OL[place]O ([facility]) Ondansetron 8 MG Oral Tablet [place] ([facility]) Naproxen 250 MG Oral Tablet [place] ([facility]) Metoclopramide 10 MG Oral Tablet [place] ([facility]) 24 HR Metformin hydrochloride 500 MG Extended Release Oral Tablet [place] ([facility]) meloxicam 7.5 MG Oral Tablet [place] ([facility]) Acetaminophen 325 MG / Hydrocodone Bitartrate 7.5 MG Oral Tablet [place] ([facility]) Acetaminophen 325 MG / Hydrocodone Bitartrate 5 MG Oral Tablet [place] ([facility]) Fluzone Quad (PF) 60 mcg (15 m cg x 4)/0.5 mL IM syringe INJECT INTRAMUSCULARLY IN THE LEFT ARM ROLANDO ([facility]) Flucelvax Quad 60 mcg (15 mcg x 4)/0.5 mL intramuscular susp INJECT 0.5ML DIRECTED [place] ([facility]) Flucelvax Quad 60 mcg (15 mcg x 4)/0.5 mL IM suspension [place]O ([facility]) duloxetine 30 MG Delayed Release Oral Capsule [place] ([facility]) doxycycline hyclate 100 MG Oral Tablet [place] ([facility]) Divalproex Sodium 500 MG Delayed Release Oral Tablet [place] ([facility]) Divalproex Sodium 250 MG Delayed Release Oral Tablet [place] ([facility]) Sumatriptan 25 MG Oral Tablet [place] ([facility]) Simvastatin 20 MG Oral Tablet [place] ([facility]) 0.5 ML pneumococcal capsular polysacchar triston type 1 vaccine 0.05 MG/ML / pneumococcal capsular polysaccharide type 10A vaccine 0.05 MG/ML / pneumococcal capsular polysaccharide type 11A vaccine 0.05 MG/ML / pneumococcal capsular polysaccharide type 12F vac ATHE NA ([facility]) Oseltamivir 75 MG Oral Capsule [place] ([facility]) Ondansetron 8 MG Oral Tablet [place] ([facility]) Ondansetron 4 MG Oral Tablet [place] ([facility]) Ondansetron 4 MG Disintegrating Oral Tablet [place] ([facility]) Naproxen 250 MG Oral Tablet [place] ([facility]) Metoclopramide 10 MG Oral Tablet [place] ([facility]) 24 HR Metformin hydrochloride 500 MG Extended Release Oral Tablet [place] ([facility]) meloxicam 7.5 MG Oral Tablet [place] ([facility]) Acetaminophen 325 MG / Hydrocodone Bitartrate 7.5 MG Oral Tablet [place] ([facility]) Acetaminophen 325 MG / Hydrocodone Bitartrate 5 MG Oral Tablet [place] ([facility]) Fluzone Quad (PF) 60 mcg (15 m cg x 4)/0.5 mL IM syringe INJECT INTRAMUSCULARLY IN THE LEFT ARM ROLANDO ([facility]) Flucelvax Quad 60 mcg (15 mcg x 4)/0.5 mL intramuscular susp INJECT 0.5ML DIRECTED [place] ([facility]) Flucelvax Quad 60 mcg (15 mcg x 4)/0.5 mL IM suspension [place]O ([facility]) duloxetine 30 MG Delayed Release Oral Capsule [place] ([facility]) doxycycline hyclate 100 MG Oral Tablet [place] ([facility]) Divalproex Sodium 500 MG Delayed Release Oral Tablet [place] ([facility]) Divalproex Sodium 250 MG Delayed Release Oral Tablet [place] ([facility]) carvedilol 3.125 MG Oral Tablet [place] ([facility]) Amoxicillin 875 MG / Clavulanate 125 MG Oral Tablet [place] ([facility]) Allopurinol 100 MG Oral Tablet [place] ([facility]) zonisamide 50 MG Oral Capsule [place] ([facility]) topiramate 50 MG Oral Tablet [place] ([facility]) Sumatriptan 25 MG Oral Tablet [place] ([facility]) Simvastatin 20 MG Oral Tablet [place] ([facility]) 0.5 ML pneumococcal capsular polysacchar triston type 1 vaccine 0.05 MG/ML / pneumococcal capsular polysaccharide type 10A vaccine 0.05 MG/ML / pneumococcal capsular polysaccharide type 11A vaccine 0.05 MG/ML / pneumococcal capsular polysaccharide type 12F vac ATHE NA ([facility]) Oseltamivir 75 MG Oral Capsule [place] ([facility]) Ondansetron 8 MG Oral Tablet [place] ([facility]) Ondansetron 4 MG Oral Tablet [place] ([facility]) Ondansetron 4 MG Disintegrating Oral Tablet [place] ([facility]) Naproxen 250 MG Oral Tablet [place] ([facility]) Metoclopramide 10 MG Oral Tablet [place] ([facility]) 24 HR Metformin hydrochloride 500 MG Extended Release Oral Tablet [place] ([facility]) meloxicam 7.5 MG Oral Tablet [place] ([facility]) Acetaminophen 325 MG / Hydrocodone Bitartrate 7.5 MG Oral Tablet [place] ([facility]) Acetaminophen 325 MG / Hydrocodone Bitartrate 5 MG Oral Tablet [place] ([facility]) Fluzone Quad (PF) 60 mcg (15 m cg x 4)/0.5 mL IM syringe INJECT INTRAMUSCULARLY IN THE LEFT ARM ROLANDO ([facility]) Flucelvax Quad 60 mcg (15 mcg x 4)/0.5 mL intramuscular susp INJECT 0.5ML DIRECTED [facility] ([facility]) Flucelvax Quad 60 mcg (15 mcg x 4)/0.5 mL IM suspension ROLANDO ([facility]) doxycycline hyclate 100 MG Oral Tablet [place] ([facility]) Divalproex Sodium 500 MG Delayed Release Oral Tablet [place] ([facility]) Divalproex Sodium 250 MG Delayed Release Oral Tablet [place] ([facility]) carvedilol 3.125 MG Oral Tablet [place] ([facility]) Amoxicillin 875 MG / Clavulanate 125 MG Oral Tablet [place] ([facility]) Allopurinol 100 MG Oral Tablet [place] ([facility]) zonisamide 50 MG Oral Capsule ROL[place]O ([facility]) topiramate 50 MG Oral Tablet [place] ([facility]) Sumatriptan 25 MG Oral Tablet [place] ([facility]) Simvastatin 20 MG Oral Tablet [place] ([facility]) 0.5 ML pneumococcal capsular polysacchar triston type 1 vaccine 0.05 MG/ML / pneumococcal capsular polysaccharide type 10A vaccine 0.05 MG/ML / pneumococcal capsular polysaccharide type 11A vaccine 0.05 MG/ML / pneumococcal capsular polysaccharide type 12F vac ATHE NA ([facility]) Oseltamivir 75 MG Oral Capsule R[place]O ([facility]) Ondansetron 8 MG Oral Tablet [place] ([facility]) Ondansetron 4 MG Oral Tablet [place] ([facility]) Ondansetron 4 MG Disintegrating Oral Tablet [place] ([facility]) Naproxen 250 MG Oral Tablet [place] ([facility]) Metoclopramide 10 MG Oral Tablet [place] ([facility]) 24 HR Metformin hydrochloride 500 MG Extended Release Oral Tablet [place] ([facility]) Amoxicillin 875 MG / Clavulanate 125 MG Oral Tablet [place] ([facility]) Allopurinol 100 MG Oral Tablet [place] ([facility]) zonisamide 50 MG Oral Capsule ROL[place]O ([facility]) topiramate 50 MG Oral Tablet [place] ([facility]) Sumatriptan 25 MG Oral Tablet [place] ([facility]) Simvastatin 20 MG Oral Tablet [place] ([facility]) 0.5 ML pneumococcal capsular polysacchar triston type 1 vaccine 0.05 MG/ML / pneumococcal capsular polysaccharide type 10A vaccine 0.05 MG/ML / pneumococcal capsular polysaccharide type 11A vaccine 0.05 MG/ML / pneumococcal capsular polysaccharide type 12F vac ATHE NA ([facility]) Oseltamivir 75 MG Oral Capsule ROL[place]O ([facility]) Ondansetron 8 MG Oral Tablet [place] ([facility]) Ondansetron 4 MG Oral Tablet [place] ([facility]) Ondansetron 4 MG Disintegrating Oral Tablet ROL[place]O ([facility]) Naproxen 250 MG Oral Tablet [place] ([facility]) Metoclopramide 10 MG Oral Tablet [place] ([facility]) 24 HR Metformin hydrochloride 500 MG Extended Release Oral Tablet [place] ([facility]) meloxicam 7.5 MG Oral Tablet [place] ([facility]) Acetaminophen 325 MG / Hydrocodone Bitartrate 7.5 MG Oral Tablet [place] ([facility]) Acetaminophen 325 MG / Hydrocodone Bitartrate 5 MG Oral Tablet [place] ([facility]) Fluzone Quad [id number] (PF) 60 mcg (15 m cg x 4)/0.5 mL IM syringe INJECT INTRAMUSCULARLY IN THE LEFT ARM ROLANDO ([facility]) Flucelvax Quad 60 mcg (15 mcg x 4)/0.5 mL intramuscular susp INJECT 0.5ML DIRECTED [facility] ([facility]) Flucelvax Quad [id number] 60 mcg (15 mcg x 4)/0.5 mL IM suspension ROLANDO ([facility]) doxycycline hyclate 100 MG Oral Tablet [place] ([facility]) Divalproex Sodium 500 MG Delayed Release Oral Tablet [place] ([facility]) Divalproex Sodium 250 MG Delayed Release Oral Tablet [place] ([facility]) carvedilol 3.125 MG Oral Tablet [place] ([facility]) Amoxicillin 875 MG / Clavulanate 125 MG Oral Tablet ROL[place] ([facility]) Allopurinol 100 MG Oral Tablet [place] ([facility]) zonisamide 50 MG Oral Capsule ROL[place]O ([facility]) icosapent ethyl 1000 MG Oral Capsule [Vascepa] ROLANDO ([facility]) topiramate 50 MG Oral Tablet ROL[place]O ([facility]) Sumatriptan 25 MG Oral Tablet ROL[place] ([facility]) Simvastatin 20 MG Oral Tablet [place]OL[place] ([facility]) 0.5 ML pneumococcal capsular polysacchar triston type 1 vaccine 0.05 MG/ML / pneumococcal capsular polysaccharide type 10A vaccine 0.05 MG/ML / pneumococcal capsular polysaccharide type 11A vaccine 0.05 MG/ML / pneumococcal capsular polysaccharide type 12F vac ATHE NA ([facility]) Oseltamivir 75 MG Oral Capsule ROLANDO ([facility]) Ondansetron 8 MG Oral Tablet R[place] ([facility]) Ondansetron 4 MG Oral Tablet R[place] ([facility]) Ondansetron 4 MG Disintegrating Oral Tablet [place] ([facility]) Naproxen 250 MG Oral Tablet [place] ([facility]) Metoclopramide 10 MG Oral Tablet [place] ([facility]) meloxicam 7.5 MG Oral Tablet R[place] ([facility]) Acetaminophen 325 MG / Hydrocodone Bitartrate 7.5 MG Oral Tablet R[place] ([facility]) Acetaminophen 325 MG / Hydrocodone Bitartrate 5 MG Oral Tablet R[place]O ([facility]) doxycycline hyclate 100 MG Oral Tablet R[place] ([facility]) Divalproex Sodium 500 MG Delayed Release Oral Tablet R[place]O ([facility]) Divalproex Sodium 250 MG Delayed Release Oral Tablet [place] ([facility]) carvedilol 3.125 MG Oral Tablet R[place] ([facility]) Amoxicillin 875 MG / Clavulanate 125 MG Oral Tablet [place] ([facility]) Naproxen 250 MG Oral Tablet [place] ([facility]) Metoclopramide 10 MG Oral Tablet ROL[place]O ([facility]) 24 HR Metformin hydrochloride 500 MG Extended Release Oral Tablet [place]OL[place] ([facility]) meloxicam 7.5 MG Oral Tablet ROL[place] ([facility]) Acetaminophen 325 MG / Hydrocodone Bitartrate 7.5 MG Oral Tablet R[place]O ([facility]) Acetaminophen 325 MG / Hydrocodone Bitartrate 5 MG Oral Tablet ROL[place]O ([facility]) Fluzone Quad (PF) 60 mcg (15 m cg x 4)/0.5 mL IM syringe INJECT INTRAMUSCULARLY IN THE LEFT ARM ROLANDO ([facility]) Flucelvax Quad 60 mcg (15 mcg x 4)/0.5 mL intramuscular susp INJECT 0.5ML DIRECTED [place] ([facility]) Flucelvax Quad 60 mcg (15 mcg x 4)/0.5 mL IM suspension ROLANDO ([facility]) duloxetine 30 MG Delayed Release Oral Capsule R[place]O ([facility]) doxycycline hyclate 100 MG Oral Tablet [place] ([facility]) Divalproex Sodium 500 MG Delayed Release Oral Tablet [place] ([facility]) Divalproex Sodium 250 MG Delayed Release Oral Tablet [place] ([facility]) carvedilol 3.125 MG Oral Tablet R[place] ([facility]) Amoxicillin 875 MG / Clavulanate 125 MG Oral Tablet [place] ([facility]) Allopurinol 100 MG Oral Tablet [place] ([facility]) zonisamide 50 MG Oral Capsule R[place]O ([facility]) topiramate 25 MG Oral Tablet R[place] ([facility]) Sumatriptan 25 MG Oral Tablet R[place] ([facility]) Simvastatin 20 MG Oral Tablet [place] ([facility]) 0.5 ML pneumococcal capsular polysacchar triston type 1 vaccine 0.05 MG/ML / pneumococcal capsular polysaccharide type 10A vaccine 0.05 MG/ML / pneumococcal capsular polysaccharide type 11A vaccine 0.05 MG/ML / pneumococcal capsular polysaccharide type 12F vac ATHE NA ([facility]) Oseltamivir 75 MG Oral Capsule ROLANDO ([facility]) Ondansetron 8 MG Oral Tablet ROL[place]O ([facility]) Ondansetron 4 MG Disintegrating Oral Tablet R[place] ([facility]) Naproxen 250 MG Oral Tablet [place] ([facility]) Metoclopramide 10 MG Oral Tablet [place] ([facility]) 24 HR Metformin hydrochloride 500 MG Extended Release Oral Tablet [place] ([facility]) meloxicam 7.5 MG Oral Tablet R[place] ([facility]) Acetaminophen 325 MG / Hydrocodone Bitartrate 7.5 MG Oral Tablet R[place] ([facility]) Acetaminophen 325 MG / Hydrocodone Bitartrate 5 MG Oral Tablet [place] ([facility]) Fluzone Quad (PF) 60 mcg (15 m cg x 4)/0.5 mL IM syringe INJECT INTRAMUSCULARLY IN THE LEFT ARM ROLANDO ([facility]) Flucelvax Quad 60 mcg (15 mcg x 4)/0.5 mL intramuscular susp INJECT 0.5ML DIRECTED [facility] ([facility]) Flucelvax Quad 60 mcg (15 mcg x 4)/0.5 mL IM suspension ROLANDO ([facility]) duloxetine 30 MG Delayed Release Oral Capsule ROL[place]O ([facility]) doxycycline hyclate 100 MG Oral Tablet [place]O ([facility]) Divalproex Sodium 500 MG Delayed Release Oral Tablet [place] ([facility]) Divalproex Sodium 250 MG Delayed Release Oral Tablet [place] ([facility]) carvedilol 3.125 MG Oral Tablet R[place] ([facility]) Amoxicillin 875 MG / Clavulanate 125 MG Oral Tablet ROL[place]O ([facility]) Allopurinol 100 MG Oral Tablet ROL[place]O ([facility]) zonisamide 50 MG Oral Capsule ROLANDO ([facility]) topiramate 50 MG Oral Tablet ROL[place]O ([facility]) Sumatriptan 25 MG Oral Tablet ROL[place]O ([facility]) Simvastatin 20 MG Oral Tablet [place]OL[place] ([facility]) 0.5 ML pneumococcal capsular polysacchar triston type 1 vaccine 0.05 MG/ML / pneumococcal capsular polysaccharide type 10A vaccine 0.05 MG/ML / pneumococcal capsular polysaccharide type 11A vaccine 0.05 MG/ML / pneumococcal capsular polysaccharide type 12F vac ATHE NA ([facility]) Ondansetron 8 MG Oral Tablet ROL[place]O ([facility]) Ondansetron 4 MG Oral Tablet ROL[place]O ([facility]) Ondansetron 8 MG Disintegrating Oral Tablet ROL[place]O ([facility]) Naproxen 250 MG Oral Tablet ROL[place] ([facility]) meloxicam 7.5 MG Oral Tablet ROL[place]O ([facility]) Acetaminophen 325 MG / Hydrocodone Bitartrate 7.5 MG Oral Tablet ROL[place]O ([facility]) Acetaminophen 325 MG / Hydrocodone Bitartrate 5 MG Oral Tablet ROL[place]O ([facility]) doxycycline hyclate 100 MG Oral Tablet ROL[place]O ([facility]) Divalproex Sodium 500 MG Delayed Release Oral Tablet ROL[place]O ([facility]) Divalproex Sodium 250 MG Delayed Release Oral Tablet R[place]O ([facility]) carvedilol 3.125 MG Oral Tablet ROL[place] ([facility]) Amoxicillin 875 MG / Clavulanate 125 MG Oral Tablet ROL[place]O ([facility]) topiramate 50 MG Oral Tablet ROL[place] ([facility]) Sumatriptan 25 MG Oral Tablet ROL[place]O ([facility]) Simvastatin 20 MG Oral Tablet ROL[place] ([facility]) 0.5 ML pneumococcal capsular polysacchar triston type 1 vaccine 0.05 MG/ML / pneumococcal capsular polysaccharide type 10A vaccine 0.05 MG/ML / pneumococcal capsular polysaccharide type 11A vaccine 0.05 MG/ML / pneumococcal capsular polysaccharide type 12F vac ATHE NA ([facility]) Ondansetron 8 MG Oral Tablet ROL[place]O ([facility]) Ondansetron 4 MG Oral Tablet ROL[place] ([facility]) Ondansetron 8 MG Disintegrating Oral Tablet [place] ([facility]) Naproxen 250 MG Oral Tablet ROL[place] ([facility]) Metformin hydrochloride 1000 MG Oral Tablet ROL[place]O ([facility]) meloxicam 7.5 MG Oral Tablet ROL[place]O ([facility]) Acetaminophen 325 MG / Hydrocodone Bitartrate 7.5 MG Oral Tablet ROL[place]O ([facility]) Acetaminophen 325 MG / Hydrocodone Bitartrate 5 MG Oral Tablet ROL[place]O ([facility]) doxycycline hyclate 100 MG Oral Tablet ROL[place]O ([facility]) Divalproex Sodium 500 MG Delayed Release Oral Tablet R[place]O ([facility]) Divalproex Sodium 250 MG Delayed Release Oral Tablet [place] ([facility]) carvedilol 3.125 MG Oral Tablet ROL[place] ([facility]) Amoxicillin 875 MG / Clavulanate 125 MG Oral Tablet [place] ([facility]) topiramate 50 MG Oral Tablet ROL[place] ([facility]) Sumatriptan 25 MG Oral Tablet [place] ([facility]) carvedilol 3.125 MG Oral Tablet ROL[place]O ([facility]) Amoxicillin 875 MG / Clavulanate 125 MG Oral Tablet ROL[place]O ([facility]) Allopurinol 100 MG Oral Tablet [place] ([facility]) zonisamide 50 MG Oral Capsule ROLANDO ([facility]) topiramate 25 MG Oral Tablet ROLANDO ([facility]) Sumatriptan 25 MG Oral Tablet ROLANDO ([facility]) Simvastatin 20 MG Oral Tablet [place]OL[place] ([facility]) 0.5 ML pneumococcal capsular polysacchar triston type 1 vaccine 0.05 MG/ML / pneumococcal capsular polysaccharide type 10A vaccine 0.05 MG/ML / pneumococcal capsular polysaccharide type 11A vaccine 0.05 MG/ML / pneumococcal capsular polysaccharide type 12F vac ATHE NA ([facility]) Oseltamivir 75 MG Oral Capsule ROLANDO ([facility]) Ondansetron 8 MG Oral Tablet R[place] ([facility]) meloxicam 7.5 MG Oral Tablet R[place] ([facility]) Acetaminophen 325 MG / Hydrocodone Bitartrate 7.5 MG Oral Tablet ROL[place] ([facility]) Acetaminophen 325 MG / Hydrocodone Bitartrate 5 MG Oral Tablet R[place] ([facility]) Fluzone Quad (PF) 60 mcg (15 m cg x 4)/0.5 mL IM syringe INJECT INTRAMUSCULARLY IN THE LEFT ARM ROLANDO ([facility]) Flucelvax Quad 60 mcg (15 mcg x 4)/0.5 mL intramuscular susp INJECT 0.5ML DIRECTED [facility] ([facility]) Flucelvax Quad 60 mcg (15 mcg x 4)/0.5 mL IM suspension ROLANDO ([facility]) doxycycline hyclate 100 MG Oral Tablet R[place]O ([facility]) Divalproex Sodium 500 MG Delayed Release Oral Tablet [place] ([facility]) Divalproex Sodium 250 MG Delayed Release Oral Tablet [place] ([facility]) carvedilol 3.125 MG Oral Tablet [place] ([facility]) Simvastatin 20 MG Oral Tablet [place] ([facility]) 0.5 ML pneumococcal capsular polysacchar triston type 1 vaccine 0.05 MG/ML / pneumococcal capsular polysaccharide type 10A vaccine 0.05 MG/ML / pneumococcal capsular polysaccharide type 11A vaccine 0.05 MG/ML / pneumococcal capsular polysaccharide type 12F vac ATHE NA ([facility]) Ondansetron 8 MG Oral Tablet [facility] ([facility] [facility]) Ondansetron 4 MG Oral Tablet ROLANDO ([facility]) Ondansetron 8 MG Disintegrating Oral Tablet ROLANDO ([facility]) Naproxen 250 MG Oral Tablet ROLANDO ([facility]) Metformin hydrochloride 1000 MG Oral Tablet ROLANDO ([facility]) meloxicam 7.5 MG Oral Tablet ROLANDO ([facility]) topiramate 50 MG Oral Tablet ROLANDO ([facility]) Sumatriptan 25 MG Oral Tablet ROLANDO ([facility]) Simvastatin 20 MG Oral Tablet ROLANDO ([facility]) 0.5 ML pneumococcal capsular polysacchar triston type 1 vaccine 0.05 MG/ML / pneumococcal capsular polysaccharide type 10A vaccine 0.05 MG/ML / pneumococcal capsular polysaccharide type 11A vaccine 0.05 MG/ML / pneumococcal capsular polysaccharide type 12F vac ATHE NA ([facility]) Ondansetron 8 MG Oral Tablet ROLANDO ([facility]) Ondansetron 4 MG Oral Tablet ROLANDO ([facility]) Ondansetron 8 MG Disintegrating Oral Tablet ROLANDO ([facility]) Naproxen 250 MG Oral Tablet ROLANDO ([facility]) Metformin hydrochloride 1000 MG Oral Tablet ROLANDO ([facility]) meloxicam 7.5 MG Oral Tablet ROLANDO ([facility]) Acetaminophen 325 MG / Hydrocodone Bitartrate 7.5 MG Oral Tablet ROLANDO ([facility]) Acetaminophen 325 MG / Hydrocodone Bitartrate 5 MG Oral Tablet ROLANDO ([facility]) doxycycline hyclate 100 MG Oral Tablet ROLANDO ([facility]) Divalproex Sodium 500 MG Delayed Release Oral Tablet ROLANDO ([facility]) Divalproex Sodium 250 MG Delayed Release Oral Tablet ROLANDO ([facility]) carvedilol 3.125 MG Oral Tablet ROLANDO ([facility]) Amoxicillin 875 MG / Clavulanate 125 MG Oral Tablet ROLANDO ([facility]) topiramate 50 MG Oral Tablet ROLANDO ([facility]) Sumatriptan 25 MG Oral Tablet ROLANDO ([facility]) Ondansetron 8 MG Oral Tablet ROLANDO ([facility]) Ondansetron 4 MG Oral Tablet ROLANDO ([facility]) Ondansetron 8 MG Disintegrating Oral Tablet ROLANDO ([facility]) Naproxen 250 MG Oral Tablet ROLANDO ([facility]) meloxicam 7.5 MG Oral Tablet ROLANDO ([facility]) Acetaminophen 325 MG / Hydrocodone Bitartrate 7.5 MG Oral Tablet ROLANDO ([facility]) Acetaminophen 325 MG / Hydrocodone Bitartrate 5 MG Oral Tablet ROLANDO ([facility]) doxycycline hyclate 100 MG Oral Tablet ROLANDO ([facility]) Divalproex Sodium 250 MG Delayed Release Oral Tablet ROLANDO ([facility]) carvedilol 3.125 MG Oral Tablet ROLANDO ([facility]) Amoxicillin 875 MG / Clavulanate 125 MG Oral Tablet ROLANDO ([facility]) topiramate 50 MG Oral Tablet ROLANDO ([facility]) Sumatriptan 25 MG Oral Tablet ROLANDO ([facility]) Simvastatin 20 MG Oral Tablet ROLANDO ([facility]) 0.5 ML pneumococcal capsular polysacchar triston type 1 vaccine 0.05 MG/ML / pneumococcal capsular polysaccharide type 10A vaccine 0.05 MG/ML / pneumococcal capsular polysaccharide type 11A vaccine 0.05 MG/ML / pneumococcal capsular polysaccharide type 12F vac ATHE NA ([facility]) Ondansetron 8 MG Oral Tablet ROLANDO ([facility]) Ondansetron 4 MG Oral Tablet ROLANDO ([facility]) Ondansetron 8 MG Disintegrating Oral Tablet ROLANDO ([facility]) Naproxen 250 MG Oral Tablet ROLANDO ([facility]) meloxicam 7.5 MG Oral Tablet ROLANDO ([facility]) Acetaminophen 325 MG / Hydrocodone Bitartrate 7.5 MG Oral Tablet ROLANDO ([facility]) Acetaminophen 325 MG / Hydrocodone Bitartrate 5 MG Oral Tablet ROLANDO ([facility]) doxycycline hyclate 100 MG Oral Tablet ROLANDO ([facility]) Divalproex Sodium 500 MG Delayed Release Oral Tablet ROLANDO ([facility]) Divalproex Sodium 250 MG Delayed Release Oral Tablet ROLANDO ([facility]) carvedilol 3.125 MG Oral Tablet ROLANDO ([facility]) Amoxicillin 875 MG / Clavulanate 125 MG Oral Tablet ROLANDO ([facility]) Acetaminophen 325 MG / Hydrocodone Bitartrate 7.5 MG Oral Tablet ROLANDO ([facility]) Acetaminophen 325 MG / Hydrocodone Bitartrate 5 MG Oral Tablet ROLANDO ([facility]) doxycycline hyclate 100 MG Oral Tablet ROLANDO ([facility]) Divalproex Sodium 500 MG Delayed Release Oral Tablet ROLANDO ([facility]) Divalproex Sodium 250 MG Delayed Release Oral Tablet ROLANDO ([facility]) carvedilol 3.125 MG Oral Tablet ROLANDO ([facility]) Amoxicillin 875 MG / Clavulanate 125 MG Oral Tablet ROLANDO ([facility])
--- NOTE | 2021-07-27 14:32 | REP ---
INDICATION: neck pain. COMPARISON: None. TECHNIQUE: 2 x 2 mm helical technique reconstructed in both sagittal and coronal planes FINDINGS: Vertebral body height and alignment is within normal limits. The disc spaces are symmetric and well maintained. The facet joints are well aligned bilaterally. There is no acute fracture, dislocation, or subluxation. There is no abnormal paraspinal soft tissue swelling. IMPRESSION: No acute abnormality. <Electronically signed by Iván Urena > 07/27/21 0718
== END 2021-07-25 07:28 | disposition home or self-care (01) ==
LOC: M ED 17:03
DX: G43.909 Migraine, unspecified, not intractable, without status migrainosus (principal); E11.9 Type 2 diabetes mellitus without complications; I10 Essential (primary) hypertension; E78.5 Hyperlipidemia, unspecified; N18.30 Chronic kidney disease, stage 3 unspecified; Z79.82 Long term (current) use of aspirin; Z79.4 Long term (current) use of insulin; Z79.899 Other long term (current) drug therapy; Z88.8 Allergy status to other drugs, medicaments and biological substances
CPT/HCPCS: 72125; 80047; 83735; 85025; 87631; 96361; 96374; 96375; 99283; J1200; J1885; J2405

== ENCOUNTER → 2021-08-06 | Outpatient (REF) | payer OTHER ==
[2021-08-06 18:42] LABS: CREATININE, URINE 52.6 MG/DL; MALB URINE SIEMENS 68.4 MG/L
== END ==
LOC: M LAB REF 17:22
PROVIDERS: ATTEND Nurse Practitioner Family
DX: E11.22 Type 2 diabetes mellitus with diabetic chronic kidney disease (principal)

== ENCOUNTER 2021-08-12 13:24 | Emergency (ER) | payer OTHER ==
[~2021-08-12] VITALS: Ht 180.3 cm; Wt 96.8 kg
[2021-08-12] MEDS ORDERED: ONDANSETRON 4MG/2ML VIAL IV ONE (19:40)
[2021-08-12 20:10] LABS: BASO # 0.1 10^3/uL (0.0-0.2); BASO % 0.7 % (0.0-1.0); EOS # 0.2 10^3/uL (0.0-0.5); EOS % 2.4 % (0.0-3.0); HEMATOCRIT 44.6 % (42.0-52.0); HEMOGLOBIN 14.5 g/dl (13.5-17.5); LYMPH # 3.4 10^3/uL (1.5-5.0); LYMPH % 33.9 % (24.0-44.0); MEAN CORPUSCULAR HEMOGLOBIN 32.2 pg (27.0-33.0); MEAN CORPUSCULAR HGB CONC 32.5 g/dl (32.0-36.5); MEAN CORPUSCULAR VOLUME 98.9 fl (80.0-96.0); MONO # 0.7 10^3/uL (0.0-0.8); MONO % 6.9 % (2.0-8.0); NEUTROPHILS # 5.6 10^3/uL (1.5-8.5); NEUTROPHILS % 55.7 % (36.0-66.0); PLATELET COUNT, AUTOMATED 228 10^3/uL (150-450); RED BLOOD COUNT 4.51 10^6/uL (4.30-6.10)
[2021-08-12] MEDS ORDERED: NS 1,000 ML IV ONE (20:10)
[2021-08-12] MEDS ORDERED: KETOROLAC 30 MG/ML 1ML VIAL IV ONE (20:50)
[2021-08-12 21:30] VITALS: BP 133/74
== END 2021-08-12 21:51 | disposition home or self-care (01) ==
LOC: M ED 13:24
DX: G43.909 Migraine, unspecified, not intractable, without status migrainosus (principal); E11.9 Type 2 diabetes mellitus without complications; I10 Essential (primary) hypertension; E78.5 Hyperlipidemia, unspecified; Z79.82 Long term (current) use of aspirin; Z79.4 Long term (current) use of insulin; Z79.899 Other long term (current) drug therapy; Z88.8 Allergy status to other drugs, medicaments and biological substances
CPT/HCPCS: 80047; 85025; 96361; 96374; 96375; 99284; J1885; J2405

== ENCOUNTER 2021-10-27 13:06 | Emergency (ER) | payer OTHER ==
[~2021-10-27] VITALS: Ht 180.3 cm; Wt 97.8 kg
[2021-10-27] MEDS ORDERED: ONDANSETRON 4MG/2ML VIAL IV ONE (16:55)
[2021-10-27] MEDS ORDERED: NS 1,000 ML IV ONE (16:55)
[2021-10-27 17:31] LABS: BASO # 0.1 10^3/uL (0.0-0.2); BASO % 0.7 % (0.0-1.0); EOS # 0.3 10^3/uL (0.0-0.5); EOS % 2.1 % (0.0-3.0); HEMATOCRIT 48.5 % (42.0-52.0); HEMOGLOBIN 15.8 g/dl (13.5-17.5); LYMPH # 3.6 10^3/uL (1.5-5.0); LYMPH % 29.3 % (24.0-44.0); MEAN CORPUSCULAR HEMOGLOBIN 31.9 pg (27.0-33.0); MEAN CORPUSCULAR HGB CONC 32.6 g/dl (32.0-36.5); MEAN CORPUSCULAR VOLUME 97.8 fl (80.0-96.0); MONO # 0.7 10^3/uL (0.0-0.8); NEUTROPHILS # 7.5 10^3/uL (1.5-8.5); NEUTROPHILS % 61.7 % (36.0-66.0); PLATELET COUNT, AUTOMATED 224 10^3/uL (150-450); RED BLOOD COUNT 4.96 10^6/uL (4.30-6.10); WHITE BLOOD COUNT 12.1 10^3/uL (4.0-10.0)
[2021-10-27 18:46] VITALS: BP 140/67
== END 2021-10-27 18:46 | disposition home or self-care (01) ==
LOC: M ED 13:06
DX: G43.909 Migraine, unspecified, not intractable, without status migrainosus (principal); E11.9 Type 2 diabetes mellitus without complications; Z79.82 Long term (current) use of aspirin; Z79.4 Long term (current) use of insulin; Z79.899 Other long term (current) drug therapy; Z88.8 Allergy status to other drugs, medicaments and biological substances
CPT/HCPCS: 80047; 85025; 96361; 96374; 99284; J2405

== ENCOUNTER 2022-03-01 07:41 | Emergency (ER) | payer OTHER ==
[~2022-03-01] VITALS: Ht 180.3 cm; Wt 95.5 kg
[2022-03-01] MEDS ORDERED: NS 1,000 ML IV ONE (09:10)
[2022-03-01] MEDS ORDERED: dexameTHASONE 4 MG/ML 1ML VIAL (J1100 PER 1MG) IV ONE (09:10)
[2022-03-01] MEDS ORDERED: KETOROLAC 30 MG/ML 1ML VIAL IV ONE (09:10)
[2022-03-01] MEDS ORDERED: PROMETHAZINE 25MG/ML 1ML VIAL IV ONE (09:10)
[2022-03-01] MEDS ORDERED: diphenhydrAMINE 50MG/ML VIAL (J1200) IV ONE (09:10)
[2022-03-01 12:13] VITALS: BP 146/83
[2022-03-01] MEDS ORDERED: ONDA4TAB6 PO (12:23)
== END 2022-03-01 12:26 | disposition home or self-care (01) ==
LOC: M ED 07:41
DX: G43.909 Migraine, unspecified, not intractable, without status migrainosus (principal); I10 Essential (primary) hypertension; E11.43 Type 2 diabetes mellitus with diabetic autonomic (poly)neuropathy; N18.9 Chronic kidney disease, unspecified; H81.09 Meniere's disease, unspecified ear; Z79.4 Long term (current) use of insulin; Z79.84 Long term (current) use of oral hypoglycemic drugs; Z79.82 Long term (current) use of aspirin; Z79.899 Other long term (current) drug therapy; Z88.8 Allergy status to other drugs, medicaments and biological substances
CPT/HCPCS: 96361; 96374; 96375; 99283; J1100; J1200; J1885; J2550

== ENCOUNTER 2022-03-04 06:56 | Emergency (ER) | payer OTHER, BC ==
[~2022-03-04] VITALS: Ht 180.3 cm; Wt 100.0 kg
[~2022-03-04 06:56] MED LIST changes: +ONDA4TAB6 PO
[2022-03-04] MEDS ORDERED: KETOROLAC 30 MG/ML 1ML VIAL IV ONE (07:25)
[2022-03-04] MEDS ORDERED: NS 1,000 ML IV ONE (07:25)
[2022-03-04] MEDS ORDERED: ONDANSETRON 4MG 2ML VIAL IV ONE (07:35)
[2022-03-04] MEDS ORDERED: dexameTHASONE 20MG/5ML VIAL (J1100 PER 1MG) IV ONE (07:35)
[2022-03-04 07:46] LABS: BASO # 0.1 10^3/uL (0.0-0.2); BASO % 0.5 % (0.0-1.0); EOS # 0.1 10^3/uL (0.0-0.5); EOS % 0.8 % (0.0-3.0); HEMATOCRIT 48.1 % (42.0-52.0); HEMOGLOBIN 16.3 g/dl (13.5-17.5); LYMPH % 20.2 % (24.0-44.0); MEAN CORPUSCULAR HEMOGLOBIN 32.3 pg (27.0-33.0); MEAN CORPUSCULAR HGB CONC 33.9 g/dl (32.0-36.5); MEAN CORPUSCULAR VOLUME 95.4 fl (80.0-96.0); MONO # 0.5 10^3/uL (0.0-0.8); MONO % 5.3 % (2.0-8.0); NEUTROPHILS # 7.4 10^3/uL (1.5-8.5); NEUTROPHILS % 72.7 % (36.0-66.0); PLATELET COUNT, AUTOMATED 253 10^3/uL (150-450); RED BLOOD COUNT 5.04 10^6/uL (4.30-6.10); WHITE BLOOD COUNT 10.1 10^3/uL (4.0-10.0)
[2022-03-04 08:17] LABS: BLOOD UREA NITROGEN 26 MG/DL (7-18); C REACTIVE PROTEIN QUANTITATIV 0.37 MG/DL (0.00-0.30); CALCIUM LEVEL 9.6 MG/DL (8.8-10.2); CARBON DIOXIDE LEVEL 22 MEQ/L (21-32); CHLORIDE LEVEL 106 MEQ/L (98-107); CREATININE FOR GFR 1.04 MG/DL (0.70-1.30); GLOMERULAR FILTRATION RATE > 60.0 (>49); GLUCOSE, FASTING 264 MG/DL (70-100); POTASSIUM SERUM 4.3 MEQ/L (3.5-5.1); SODIUM LEVEL 136 MEQ/L (136-145)
[2022-03-04 08:20] LABS: ERYTHROCYTE SEDIMENTATION RATE 15 mm/hr (0-20)
[2022-03-04 10:06] VITALS: BP 118/63
== END 2022-03-04 10:20 | disposition home or self-care (01) ==
LOC: M ED 06:56
DX: G43.909 Migraine, unspecified, not intractable, without status migrainosus (principal); E11.9 Type 2 diabetes mellitus without complications; I10 Essential (primary) hypertension; Z79.899 Other long term (current) drug therapy; Z88.8 Allergy status to other drugs, medicaments and biological substances; Z86.69 Personal history of other diseases of the nervous system and sense organs
CPT/HCPCS: 80048; 85025; 85652; 86140; 96374; 96375; 99284; J1100; J1885; J2405

== ENCOUNTER 2022-03-15 00:45 | Emergency (ER) | payer OTHER, BC ==
[~2022-03-15] VITALS: Ht 180.3 cm; Wt 100.0 kg
[2022-03-15] MEDS ORDERED: ONDANSETRON 4MG 2ML VIAL IV ONE (02:20)
[2022-03-15] MEDS ORDERED: NS 1,000 ML IV ONE (02:20)
[2022-03-15] MEDS ORDERED: KETOROLAC 30 MG/ML 1ML VIAL IV ONE ×2 (02:20→03:35)
[2022-03-15 04:30] VITALS: BP 134/65
== END 2022-03-15 04:49 | disposition home or self-care (01) ==
LOC: M ED 00:45
DX: G43.909 Migraine, unspecified, not intractable, without status migrainosus (principal); Z79.82 Long term (current) use of aspirin; Z79.4 Long term (current) use of insulin; Z79.84 Long term (current) use of oral hypoglycemic drugs; Z79.899 Other long term (current) drug therapy; Z88.8 Allergy status to other drugs, medicaments and biological substances
CPT/HCPCS: 70450; 96361; 96374; 96375; 96376; 99285; J1885; J2405

== ENCOUNTER 2022-04-29 07:20 | Emergency (ER) | payer OTHER, BC ==
[~2022-04-29] VITALS: Ht 180.3 cm; Wt 93.9 kg
[~2022-04-29 07:20] MED LIST changes: +SIMV-253 PO
[2022-04-29] MEDS ORDERED: SUMA6INJ25 (07:33)
[2022-04-29] MEDS ORDERED: TOPI50TA9 (07:33)
[2022-04-29] MEDS ORDERED: KETOROLAC 30 MG/ML 1ML VIAL IV ONE (10:45)
[2022-04-29] MEDS ORDERED: NS 1,000 ML IV ONE (10:45)
[2022-04-29] MEDS ORDERED: ONDANSETRON 4MG 2ML VIAL IV ONE (10:50)
[2022-04-29] MEDS ORDERED: ACETAMINOPHEN 325 MG TAB PO ONE (11:45)
[2022-04-29 12:18] VITALS: BP 158/87
== END 2022-04-29 12:43 | disposition home or self-care (01) ==
LOC: M ED 07:20
DX: G43.909 Migraine, unspecified, not intractable, without status migrainosus (principal); Z88.1 Allergy status to other antibiotic agents; Z79.51 Long term (current) use of inhaled steroids; Z79.84 Long term (current) use of oral hypoglycemic drugs; Z79.899 Other long term (current) drug therapy
CPT/HCPCS: 96374; 96375; 99284; J1885; J2405

== ENCOUNTER 2022-06-01 07:27 | Emergency (ER) | payer OTHER, BC ==
[~2022-06-01] VITALS: Ht 180.3 cm; Wt 100.0 kg
[~2022-06-01 07:27] MED LIST changes: -ACE65ERTAB PO
[2022-06-01] MEDS ORDERED: ACE65ERTAB PO (07:37)
[2022-06-01] MEDS ORDERED: ONDANSETRON 4MG 2ML VIAL IV ONE (08:15)
[2022-06-01] MEDS ORDERED: KETOROLAC 30 MG/ML 1ML VIAL IV ONE (08:15)
[2022-06-01] MEDS ORDERED: NS 1,000 ML IV ONE (08:15)
[2022-06-01 08:18] LABS: BASO # 0.1 10^3/uL (0.0-0.2); BASO % 0.8 % (0.0-1.0); EOS # 0.2 10^3/uL (0.0-0.5); HEMATOCRIT 41.1 % (42.0-52.0); HEMOGLOBIN 14.4 g/dl (13.5-17.5); LYMPH # 2.3 10^3/uL (1.5-5.0); LYMPH % 25.7 % (24.0-44.0); MEAN CORPUSCULAR HEMOGLOBIN 34.2 pg (27.0-33.0); MEAN CORPUSCULAR VOLUME 97.6 fl (80.0-96.0); MONO # 0.6 10^3/uL (0.0-0.8); MONO % 6.7 % (2.0-8.0); NEUTROPHILS # 5.7 10^3/uL (1.5-8.5); NEUTROPHILS % 64.3 % (36.0-66.0); PLATELET COUNT, AUTOMATED 205 10^3/uL (150-450); RED BLOOD COUNT 4.21 10^6/uL (4.30-6.10); WHITE BLOOD COUNT 8.8 10^3/uL (4.0-10.0)
[2022-06-01 08:58] LABS: ERYTHROCYTE SEDIMENTATION RATE 26 mm/hr (0-20)
[2022-06-01] MEDS ORDERED: dexameTHASONE 20MG/5ML VIAL (J1100 PER 1MG) IV ONE (09:55)
[2022-06-01 10:33] VITALS: BP 128/74
== END 2022-06-01 10:34 | disposition home or self-care (01) ==
LOC: M ED 07:27
DX: G43.909 Migraine, unspecified, not intractable, without status migrainosus (principal); E11.9 Type 2 diabetes mellitus without complications; Z79.4 Long term (current) use of insulin; Z79.82 Long term (current) use of aspirin; Z79.84 Long term (current) use of oral hypoglycemic drugs; Z79.899 Other long term (current) drug therapy; Z88.8 Allergy status to other drugs, medicaments and biological substances
CPT/HCPCS: 80047; 85025; 85652; 96361; 96374; 96375; 99284; J1100; J1885; J2405

== ENCOUNTER → 2022-06-01 | Outpatient (REF) ==
[~2022-06-01] MED LIST changes: +ACE65ERTAB PO; +SUMA6INJ25; +TOPI50TA9
== END ==
LOC: M LAB 23:14